=== PATIENT | female | born 2000 | race Caucasian/White ===

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

== ENCOUNTER 2021-09-23 16:07 | Observation (INO) ==
[2021-09-23] MEDS ORDERED: ONDANSETRON INJ 2 MG/ML 2 ML VIAL IV STA (16:25)
[2021-09-23] MEDS ORDERED: SODIUM CHLORIDE 0.9% 1000ML 1,000 ML IV STA (16:25)
--- NOTE | 2021-09-23 16:33 | Emergency Department Note ---
Impression & Plan Chronic female pelvic pain, Chronic abdominal pain ED Provider Note NAME: ELIF LEVY AGE: 21 SEX: F : 2000 ARRIVES VIA: Walk-In INFORMANT: Patient, ED PROVIDER(S): Tai Boyle DO CHIEF COMPLAINT: Abdominal pain HPI: The patient is a 21-year-old female who presented to the emergency department for an evaluation of pelvic pain. The patient states that she has had ongoing pelvic pain for the last 4 years. She has a history of endometriosis but she is not sure if this is the cause of her pain. She has not iced worsening pain especially over the last few months. 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 She also had a hysterectomy to treat suspected endometriosis. She has noticed ongoing pain nausea and weight loss. She denies having any rectal bleeding. She denies having any vaginal discharge. She denies having any chest pain or difficulty breathing. The patient states that she wanted to come to our hospital rather than go to her local hospital for a second opinion. The patient states she is on no antibiotics. She states that she has not been able to take her medication including her oxycodone because of not been able to eat and having nausea. ROS: See above HPI for pertinent positives & negatives. A total of 10 systems reviewed and were otherwise negative. PAST MEDICAL HISTORY: See Below PAST SURGICAL HISTORY: See Below FAMILY HISTORY: See Below SOCIAL HISTORY: See Below HOME MEDICATIONS: See Below ALLERGIES: See Below VITALS: See Below PHYSICAL EXAMINATION: GENERAL: Patient is awake alert in no acute distress patient is resting comfortably and showing no signs of anxiety EYES: The conjunctivae are clear. The pupils are round and reactive. EARS, NOSE, MOUTH AND THROAT: The nose is without any evidence of any deformity. Mucous membranes are moist. Tongue is midline. NECK: The neck is nontender and supple. RESPIRATORY: Normal respiratory effort is noted there is no evidence of wheezing rhonchi or rales CARDIOVASCULAR: Regular rate and rhythm noted there no murmurs rubs or gallops normal S1 normal S2. GASTROINTESTINAL: The abdomen is soft and nondistended. There is specific tenderness in the suprapubic region. There is no specific guarding. MUSCULOSKELETAL/EXTREMITIES: There is no evidence of gross deformity full range of motion is noted in the hips and shoulders. SKIN: There is no obvious evidence of any rash. There are no petechiae, pallor or cyanosis noted. NEUROLOGIC: Patient is awake alert and oriented x3 strength is symmetric pa tellar reflexes are 2+ bilaterally MEDICAL DECISION MAKING: The patient is a 21-year-old female who presented to emergency department for evaluation of pelvic pain. The patient states that she has a longstanding diagnosis of endometriosis. She presented to the emergency department for further evaluation. The patient was seen at [facility] within the last 24 hours. I did review her records from that visit and she had a CAT scan of the abdomen and pelvis. The patient was treated with IV fluids and IV pain medication. She was also reevaluated multiple times. I discussed the patient's laboratory and radiographic studies with her which did not reveal any acute abnormality. When the patient was reevaluated she did request to be evaluated by the hospitalist for possible inpatient management. I am unsure if the patient will be able to have any further diagnoses made at our facility. The patient reviewed with me the list of specialists as well as testing that she has had in the past. I am unsure if anything new will be found however at the patient's request I did [facility] have agreed to evaluate patient in the emergency department for further management and disposition. Triage Nursing notes reviewed. Prior medical records reviewed Vital Signs: reviewed and remarkable for no significant abnormalities Differential diagnosis: Etiologies such as appendicitis, diverticulitis, obstruction, inflammatory bowel disease, renal colic, PUD, biliary pathology, pancreatitis, mesenteric ischemia, aortic pathology, infections, genitourinary, UTI, perforated viscus, as well as others were entertained. ER treatment provided: See below Diagnostics interpreted by me: ECG: none Cardiac Monitoring: An order was placed for continuous cardiac monitoring. The monitor shows a rate of 97 bpm with sinus rhythm. Laboratory studies: As stated above and show below. Imaging studies: See below Consultation(s): I discussed this case with Dr. Dorado who [facility]. Past Med/Surg History Medical History Chest pain Endometriosis Internal hemorrhage Mood disorder Non-cardiac chest pain Surgical History H/O: hysterectomy Social History Smoking Status: Former smoker Tobacco Type: E-cigarettes / Vaping Hx Alcohol Use: No Hx Substance Use: Yes Last Used Substance Other:: last used "about a week ago" Substance Use Type Other:: vapes THC currently; no longer medical marijuana use Preferred Language: Croatian Communication Ability: Effective Funeral Planner Required: No Beliefs That Will Affect Care: None Current Living Situation: Alone Other Information That Helps Us Care for You: No Feels Safe at Home: Yes Safety Concerns: Feels Safe At This Time Assistive Devices: None Allergies Allergies Allergy/AdvReac Type Severity Reaction Status Date / Time prochlorperazine AdvReac Agitated Verified 09/23/21 20:35 [From Compazine] Home Meds Home Medications Medication Instructions Recorded Confirmed hydrocortisone 2.5 % topical cream 1 applic TOPICAL BID PRN 06/09/21 09/23/21 with perineal applicator docusate sodium 100 mg tablet 100 mg PO BID 09/23/21 09/23/21 naloxone 4 mg/actuation nasal 0 mg INTRANASAL DIRECTED PRN 09/23/21 09/23/21 spray (Narcan) oxycodone 10 mg tablet 10 mg PO Q12 PRN 09/23/21 09/23/21 promethazine 25 mg rectal 25 mg [place] DIRECTED PRN 09/23/21 09/23/21 suppository Results & Data (ED) Vital Signs Vital Signs - 24 hr 09/23/21 16:12 09/23/21 16:36 09/23/21 18:45 Temperature 37.2 C Temperature Source Oral Pulse Rate 113 H 110 H Pulse Rate [Right Finger] 110 H 98 H Pulse Rhythm Regular Pulse Rhythm [Right Finger] Regular Regular Pulse Strength [Right Finger] Normal Normal Respiratory Rate 16 18 17 Respiratory Effort / Characteristics Non-Labored Spontaneous Non-Labored Spontaneous Respiratory Depth Normal Normal Respiratory Pattern Regular Blood Pressure 137/89 Blood Pressure [Left Arm] 128/79 Blood Pressure Mean 105 Blood Pressure Mean [Left Arm] 95 Blood Pressure Position [Left Arm] Lying Pulse Oximetry 99 98 99 Oxygen Delivery Method Room Air Room Air Room Air Sepsis Recent Fever Within 48 Hours No Sepsis New/Unexplained Change in Mental Status No Sepsis Action Taken by Nursing No Action Required 09/23/21 20:00 Temperature Temperature Source Pulse Rate Pulse Rate [Right Finger] 97 H Pulse Rhythm Pulse Rhythm [Right Finger] Regular Pulse Strength [Right Finger] Normal Respiratory Rate 17 Respiratory Effort / Characteristics Non-Labored Spontaneous Respiratory Depth Normal Respiratory Pattern Blood Pressure Blood Pressure [Left Arm] Blood Pressure Mean Blood Pressure Mean [Left Arm] Blood Pressure Position [Left Arm] Pulse Oximetry 98 Oxygen Delivery Method Room Air Sepsis Recent Fever Within 48 Hours Sepsis New/Unexplained Change in Mental Status Sepsis Action Taken by Residential Medications Current Medication List: was personally reviewed by me Laboratory Data Attestation: I reviewed the patient's lab results. Result diagrams: 09/23/21 16:34 09/23/21 16:34 Lab Results 09/23/21 09/23/21 09/23/21 Range/Units 16:34 16:34 16:34 WBC 5.62 (4.8-10.8) K/uL RBC 4.44 (4.2-5.4) M/uL Hgb 14.6 (12.0-16.0) g/dL Hct 39.4 (37-47) % MCV 88.7 (80-100) fL MCH 32.9 (25-34) pg MCHC 37.1 H (32-36) g/dL RDW Std Deviation 39.5 (36.4-46.3) fL RDW Coeff of Angy 12.2 (11.5-14.5) % Plt Count 230 (130-400) K/uL MPV 10.2 (7.4-10.4) fL Immature Gran % (Auto) 0.2 % Neut % (Auto) 50.8 % Lymph % (Auto) 39.5 % Craven % (Auto) 8.9 % Eos % (Auto) 0.4 % Baso % (Auto) 0.2 % Neut # (Auto) 2.86 (1.4-6.5) K/uL Lymph # (Auto) 2.22 (1.2-3.4) K/uL Craven # (Auto) 0.50 (0.11-0.59) K/uL Eos # (Auto) 0.02 (0-0.5) K/uL Baso # (Auto) 0.01 (0-0.2) K/uL Immature Gran # (Auto) 0.01 (0.00-0.02) K/uL ESR 9 (0-20) mm/hr Sodium (136-145) mmol/L Potassium (3.5-5.1) mmol/L Chloride (98-107) mmol/L Carbon Dioxide (21-32) mmol/L Anion Gap (3-11) BUN (6-23) mg/dl Creatinine (0.6-1.2) mg/dl Est Cr Clr Drug Dosing ml/min Est GFR ( Amer) ml/min Est GFR (Non-Af Amer) ml/min BUN/Creatinine Ratio (10-20) Glucose (70-99(Fasting)) mg/dl Lactate 0.8 (0.4-2.0) mmol/L Calcium (8.5-10.1) mg/dl Total Bilirubin (0.2-1.0) mg/dl AST (13-39) U/L ALT (7-52) U/L Alkaline Phosphatase (34-104) U/L C-Reactive Protein (0-0.5) mg/dl Total Protein (6.0-8.3) gm/dl Albumin (3.4-5.0) gm/dl Globulin (2.5-4.0) gm/dl Albumin/Globulin Ratio (0.9-2) Lipase (11-82) U/L Urine Color Urine Appearance (Clear) Urine pH (4.5-7.5) Ur Specific [place] (1.000-1.030) Urine Protein (Negative) Urine Glucose (UA) (Negative) Urine Ketones (Negative) Urine Blood (Negative) Urine Nitrite (Negative) Urine Bilirubin (Negative) Urine Urobilinogen (Negative) Ur Leukocyte Esterase (Negative) SARS-CoV-2, RNA, NAAT (NEGATIVE) 09/23/21 09/23/21 09/23/21 Range/Units 16:34 18:45 19:50 WBC (4.8-10.8) K/uL RBC (4.2-5.4) M/uL Hgb (12.0-16.0) g/dL Hct (37-47) % MCV (80-100) fL MCH (25-34) pg MCHC (32-36) g/dL RDW Std Deviation (36.4-46.3) fL RDW Coeff of Angy (11.5-14.5) % Plt Count (130-400) K/uL MPV (7.4-10.4) fL Immature Gran % (Auto) % Neut % (Auto) % Lymph % (Auto) % Craven % (Auto) % Eos % (Auto) % Baso % (Auto) % Neut # (Auto) (1.4-6.5) K/uL Lymph # (Auto) (1.2-3.4) K/uL Craven # (Auto) (0.11-0.59) K/uL Eos # (Auto) (0-0.5) K/uL Baso # (Auto) (0-0.2) K/uL Immature Gran # (Auto) (0.00-0.02) K/uL ESR (0-20) mm/hr Sodium 140 (136-145) mmol/L Potassium 3.5 (3.5-5.1) mmol/L Chloride 111 H (98-107) mmol/L Carbon Dioxide 20 L (21-32) mmol/L Anion Gap 9 (3-11) BUN 9 (6-23) mg/dl Creatinine 0.68 (0.6-1.2) mg/dl Est Cr Clr Drug Dosing 99.6 ml/min Est GFR ( Amer) 145.9 ml/min Est GFR (Non-Af Amer) 125.9 ml/min BUN/Creatinine Ratio 13.2 (10-20) Glucose 83 (70-99(Fasting)) mg/dl Lactate (0.4-2.0) mmol/L Calcium 9.4 (8.5-10.1) mg/dl Total Bilirubin 0.8 (0.2-1.0) mg/dl AST 16 (13-39) U/L ALT 19 (7-52) U/L Alkaline Phosphatase 51 (34-104) U/L C-Reactive Protein < 0.50 (0-0.5) mg/dl Total Protein 7.3 (6.0-8.3) gm/dl Albumin 4.6 (3.4-5.0) gm/dl Globulin 2.7 (2.5-4.0) gm/dl Albumin/Globulin Ratio 1.7 (0.9-2) Lipase 18 (11-82) U/L Urine Color Yellow Urine Appearance Clear (Clear) Urine pH 6.5 (4.5-7.5) Ur Specific [place] 1.019 (1.000-1.030) Urine Protein Negative (Negative) Urine Glucose (UA) Negative (Negative) Urine Ketones 1+ H (Negative) Urine Blood Negative (Negative) Urine Nitrite Negative (Negative) Urine Bilirubin Negative (Negative) Urine Urobilinogen Negative (Negative) Ur Leukocyte Esterase Negative (Negative) SARS-CoV-2, RNA, NAAT NEGATIVE (NEGATIVE) Administered Medications Dextrose/Sodium Chloride (D5w And Nss) 1,000 mls @ 125 mls/hr IV .Q8H CARLOS Stop: 10/23/21 22:50 Last Admin: 09/23/21 23:22 Dose: 125 mls/hr Documented by: [id number] Pantoprazole Sodium 40 mg/ (Syringe) 10 mls @ 5 mls/min IV BID CARLOS Stop: 10/23/21 22:50 Last Admin: 09/24/21 00:04 Dose: 5 mls/min Documented by: [id number] Morphine Sulfate (Morphine Sulfate 4 Mg/Ml 1 Ml Carp\\Vial) 3 mg IV Q4H PRN PRN Reason: Pain Stop: 10/07/21 22:50 Last Admin: 09/23/21 23:22 Dose: 3 mg Documented by: [id number] Ondansetron HCl (Ondansetron Inj 2 Mg/Ml 2 Ml Vial) 4 mg IV Q6H PRN PRN Reason: Nausea Stop: 10/23/21 22:50 Last Admin: 09/23/21 23:21 Dose: 4 mg Documented by: [id number] Discontinued Medications Sodium Chloride (Nss 1000ml) 1,000 mls @ 999 mls/hr IV .Q1H1M STA Stop: 09/23/21 17:25 Last Infusion: 09/23/21 19:00 Dose: 0 mls/hr Documented by: [id number] Admin: 09/23/21 16:46 Dose: 999 mls/hr Documented by: [id number] Morphine Sulfate (Morphine Sulfate 4 Mg/Ml 1 Ml Carp\\Vial) 4 mg IV NOW STA Stop: 09/23/21 18:30 Last Admin: 09/23/21 18:40 Dose: 4 mg Documented by: [id number] Ondansetron HCl (Ondansetron Inj 2 Mg/Ml 2 Ml Vial) 4 mg IV NOW STA Stop: 09/23/21 16:26 Last Admin: 09/23/21 16:45 Dose: 4 mg Documented by: [id number] Imaging Data Radiologist's Impression: Chest X-Ray 09/23/21 16:25 XR chest 1V portable CLINICAL HISTORY: abd pain TECHNIQUE: Single frontal radiograph of the chest was obtained. Comparison: Comparison is made to chest one view 03/03/2015 FINDINGS: No lines and tubes are seen. The cardiomediastinal silhouette is normal. The lungs are clear. No evidence of pleural effusion or pneumothorax. IMPRESSION: No acute chest disease. No evidence of pneumoperitoneum. ACT 112: Negative or not required by law. Electronically signed by: Francisco J Mckinley M.D. 09/23/2021 5:06 PM KUB X-Ray 09/23/21 16:25 XR KUB/Abdomen 1 view CLINICAL HISTORY: lower pain TECHNIQUE: 1 view of the abdomen was obtained. Comparison: None available at the time of this dictation. FINDINGS: Lung bases are unremarkable. The osseous structures are grossly unremarkable. The bowel gas pattern is nonobstructive. A moderate amount of stool is noted within the large bowel. IMPRESSION: Nonobstructive bowel gas pattern. ACT 112: Negative or not required by law. Electronically signed by: Francisco J Mckinley M.D. 09/23/2021 5:06 PM Pelvis Ultrasound 09/23/21 16:52 US pelvic complete CLINICAL HISTORY: pain, hx of cyst TECHNIQUE: Real-time sonographic images of the pelvic contents were obtained with transabdominal and transvaginal technique. Comparison: None available at the time of this dictation. FINDINGS: Patient is status post hysterectomy. The right ovary measures 2.5 x 1.2 x 1.5 cm. The left ovary measures 2.0 x 2.3 x 1.9 cm. Normal appearance of the ovaries bilaterally. Doppler flow is seen bilaterally. There was small fluid in the cul-de-sac. IMPRESSION: Status post hysterectomy. No evidence of large ovarian cyst. Previously noted right 2.5 cm cystic lesion no longer seen on today's exam. ACT 112: Negative or not required by law. Electronically signed by: Francisco J Mckinley M.D. 09/23/2021 6:43 PM Discharge Plan Visit Data Chief Complaint: Abdominal Pain Stated Complaint: ABD PAIN, LOSS OF APPETITE, VOMITING, ED Provider: [place],Tai R Discharge Problem: Chronic female pelvic pain, Chronic abdominal pain Patient Disposition: Admitted As Inpatient Discharge Instructions Interventions: ED Discharge Assessment Last Done: 09/23/21 22:36
[2021-09-23 16:49] LABS: Basophils # (auto) 0.01 K/uL (0-0.2); Basophils % (auto) 0.2 %; Eosinophils # (auto) 0.02 K/uL (0-0.5); Eosinophils % (auto) 0.4 %; Hematocrit (blood only) 39.4 % (37-47); Hemoglobin 14.6 g/dL (12.0-16.0); Immature Granulocytes # (auto) 0.01 K/uL (0.00-0.02); Immature Granulocytes % (auto) 0.2 %; Lymphocytes # (auto) 2.22 K/uL (1.2-3.4); Lymphocytes % (auto) 39.5 %; Mean Corpuscular Hemoglobin 32.9 pg (25-34); Mean Corpuscular Hgb Conc 37.1 g/dL (32-36); Mean Corpuscular Volume 88.7 fL (80-100); Mean Platelet Volume 10.2 fL (7.4-10.4); Monocytes % (auto) 8.9 %; Neutrophils # (auto) 2.86 K/uL (1.4-6.5); Neutrophils % (auto) 50.8 %; Platelet Count 230 K/uL (130-400); RDW Coefficient of Variation 12.2 % (11.5-14.5); RDW Standard Deviation 39.5 fL (36.4-46.3); Red Blood Count 4.44 M/uL (4.2-5.4); White Blood Count 5.62 K/uL (4.8-10.8)
--- NOTE | 2021-09-23 17:09 | XRay Report ---
XR chest 1V portable CLINICAL HISTORY: abd pain TECHNIQUE: Single frontal radiograph of the chest was obtained. Comparison: Comparison is made to chest one view 03/03/2015 FINDINGS: No lines and tubes are seen. The cardiomediastinal silhouette is normal. The lungs are clear. No evid ence of pleural effusion or pneumothorax. IMPRESSION: No acute chest disease. No evidence of pneumoperitoneum. ACT 112: Negative or not required by law. Electronically signed by: Francisco J Mckinley M.D. 09/23/2021 5:06 PM
--- NOTE | 2021-09-23 17:09 | XRay Report ---
XR KUB/Abdomen 1 view CLINICAL HISTORY: lower pain TECHNIQUE: 1 view of the abdomen was obtained. Comparison: None available at the time of this dictation. FINDINGS: Lung bases are unremarkable. The osseous structures are grossly unremarkable. The bowel gas pattern i s nonobstructive. A moderate amount of stool is noted within the large bowel. IMPRESSION: Nonobstructive bowel gas pattern. ACT 112: Negative or not required by law. Electronically signed by: Francisco J Mckinley M.D. 09/23/2021 5:06 PM
[2021-09-23 17:15] LABS: Alanine Aminotransferase 19 U/L (7-52); Albumin Globulin Ratio 1.7 (0.9-2); Albumin Level 4.6 gm/dl (3.4-5.0); Alkaline Phosphatase 51 U/L (34-104); Anion Gap 9 (3-11); Aspartate Aminotransferase 16 U/L (13-39); BUN Creatinine Ratio 13.2 (10-20); Bilirubin,Total 0.8 mg/dl (0.2-1.0); Blood Urea Nitrogen 9 mg/dl (6-23); C Reactive Protein < 0.50 mg/dl (0-0.5); Calcium 9.4 mg/dl (8.5-10.1); Carbon Dioxide 20 mmol/L (21-32); Chloride 111 mmol/L (98-107); Creatinine Clr Calc Pharmacy 99.6 ml/min; Est GFR (African American) 145.9 ml/min; Est GFR (Non-African American) 125.9 ml/min; Globulin 2.7 gm/dl (2.5-4.0); Glucose 83 mg/dl (70-99(Fasting)); Lipase 18 U/L (11-82); Potassium 3.5 mmol/L (3.5-5.1); Sodium 140 mmol/L (136-145); Total Protein 7.3 gm/dl (6.0-8.3)
[2021-09-23] MEDS ORDERED: MoRPHine SULFATE 4 MG/ML 1 ML CARP\\VIAL IV STA (18:29)
--- NOTE | 2021-09-23 18:45 | Ultrasound Report ---
US pelvic complete CLINICAL HISTORY: pain, hx of cyst TECHNIQUE: Real-time sonographic images of the pelvic contents were obtained with transabdominal and transvaginal technique. Comparison: None available at the time of this dictation. FINDINGS: Patient is status post hysterectomy. The right ovary measures 2.5 x 1.2 x 1.5 cm. The left ovary alyse ures 2.0 x 2.3 x 1.9 cm. Normal appearance of the ovaries bilaterally. Doppler flow is seen bilateral ly. There was small fluid in the cul-de-sac. IMPRESSION: Status post hysterectomy. No evidence of large ovarian cyst. Previously noted right 2.5 cm cystic les ion no longer seen on today's exam. ACT 112: Negative or not required by law. Electronically signed by: Francisco J Mckinley M.D. 09/23/2021 6:43 PM
[2021-09-23 18:57] LABS: Appearance Urine Clear (Clear); Bilirubin Urine Negative (Negative); Blood Urine Negative (Negative); Color Urine Yellow; Glucose Urine UA Negative (Negative); Ketones Urine 1+ (Negative); Leukocyte Esterase Urine Negative (Negative); Nitrite Urine Negative (Negative); Protein Urine Negative (Negative); Specific Gravity Urine 1.019 (1.000-1.030); Urobilinogen Urine Negative (Negative); pH Urine 6.5 (4.5-7.5)
[2021-09-23] MEDS ORDERED: PROMETHAZINE HCL 25 MG SUPP PR PRN (22:51)
[2021-09-23] MEDS: ONDANSETRON INJ 2 MG/ML 2 ML VIAL IV PRN (23:21)
[2021-09-23] MEDS: D5W AND NSS 1,000 ML IV SCH (23:22)
[2021-09-23] MEDS: MoRPHine SULFATE 4 MG/ML 1 ML CARP\\VIAL IV PRN (23:22)
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
[2021-09-24] MEDS: PANTOprazole 40 MG in SYRINGE 0 ML IV SCH ×2 (00:04→08:51)
[2021-09-24] MEDS ORDERED: LORazepam 0.5 MG TAB PO STA (00:57)
[2021-09-24] MEDS: MoRPHine SULFATE 4 MG/ML 1 ML CARP\\VIAL IV PRN ×2 (05:40→09:56)
[2021-09-24] MEDS: ONDANSETRON INJ 2 MG/ML 2 ML VIAL IV PRN (05:40)
[2021-09-24] MEDS: D5W AND NSS 1,000 ML IV SCH ×3 (06:40→21:41)
[2021-09-24 06:43] LABS: Basophils # (auto) 0.01 K/uL (0-0.2); Basophils % (auto) 0.2 %; Eosinophils # (auto) 0.09 K/uL (0-0.5); Eosinophils % (auto) 1.5 %; Hematocrit (blood only) 35.7 % (37-47); Immature Granulocytes # (auto) 0.01 K/uL (0.00-0.02); Immature Granulocytes % (auto) 0.2 %; Lymphocytes # (auto) 2.87 K/uL (1.2-3.4); Lymphocytes % (auto) 49.4 %; Mean Corpuscular Hemoglobin 32.6 pg (25-34); Mean Corpuscular Hgb Conc 36.4 g/dL (32-36); Mean Corpuscular Volume 89.5 fL (80-100); Mean Platelet Volume 10.5 fL (7.4-10.4); Monocytes # (auto) 0.52 K/uL (0.11-0.59); Neutrophils # (auto) 2.31 K/uL (1.4-6.5); Neutrophils % (auto) 39.7 %; Platelet Count 210 K/uL (130-400); Red Blood Count 3.99 M/uL (4.2-5.4); White Blood Count 5.81 K/uL (4.8-10.8)
[2021-09-24 07:15] LABS: BUN Creatinine Ratio 9.2 (10-20); Calcium 8.2 mg/dl (8.5-10.1); Creatinine Clr Calc Pharmacy 89.1 ml/min; Est GFR (African American) 130.9 ml/min; Est GFR (Non-African American) 112.9 ml/min; Magnesium 1.9 mg/dl (1.7-2.4); Potassium 3.2 mmol/L (3.5-5.1)
[2021-09-24] MEDS: PROMETHAZINE HCL 6.25 MG in SODIUM CHLORIDE 0.9% 50 ML IV PRN ×3 (08:37→21:36)
[2021-09-24] MEDS: oxyCODONE HCL IR 5 MG TAB (IMMEDIATE RELEASE) PO PRN ×2 (08:51→21:02)
[2021-09-24] MEDS: ACETAMINOPHEN 325 MG TAB PO PRN ×3 (08:51→21:02)
[2021-09-24] MEDS: DOCUSATE SODIUM 100 MG CAP PO SCH ×2 (08:51→21:36)
[2021-09-24] MEDS ORDERED: POTASSIUM CHLORIDE CRTAB 20 MEQ TABCR PO ONE (09:36)
--- NOTE | 2021-09-24 11:02 | Gastrointestinal Consultation ---
Date of Consultation September 24, 2021 Assessment & Plan (1) Chronic abdominal pain: (2) Chronic female pelvic pain: (3) Nausea & vomiting: Patient is a 21 years old female seen for lower abdominal/pelvic pain and also nausea. She reports history of endometriosis status post lysis of adhesion s and hysterectomy. States that the surgeries did not really help with her symptoms. She has had quite an extensive GI work-up including EGD, colonoscopy, gastric emptying study, CT scan, ultrasound. Pertinent findings include gastric erosions when she was having nausea and vomiting, delayed gastric emptying and perhaps mild constipation. Suspect that her pain symptoms are mostly related to CARE PROGRAM DIRECTOR issues. - Consult CARE PROGRAM DIRECTOR - PPI PO daily - Zofran ODT 4mg q6hr prn n/v - Defer repeat endoscopies - Advance diet as tolerated - Consider Pain management consult (she reports currently established in pain management clinic at [place], would like to discuss management of her outpatient medications). - Consider psychiatric evaluation for behavioral health. She had missed outpatient appointments. - Marijuana cessation - GI to sign off; pls recall prn Supervising Physician Co-Signing Physician Notes I have personally seen and examined the patient with STEF Keita on 09/24/21. Her note reflects my exam and findings. I agree with her impression and plan. Recent GI w/u. Consider CARE PROGRAM DIRECTOR eval. Jerardo Erwin M.D. History of Present Illness Reason for Consultation: Abd pain, nausea Requesting Physician: Dr. Lazarus Alston Attending Physician: Dr. Jerardo Erwin History of Present Illness Patient is a 21 years old female seen today for complaints of lower abdominal pain and nausea symptoms. She was admitted at [facility] about 1-1/2 months ago with similar symptoms. She states that she has a history of endometriosis, status post lysis of implants and hysterectomy. Since her surgery she has been having continued symptoms similar to when she still have he r endometriosis including lower abdominal and pelvic cramping. Also complaining of nausea and vomiting. While at [facility] she was unable to tolerate p.o. intake and had to be on TPN for nutritional support. She has had a comprehensive GI work-up including EGD and colonoscopy within the last 1-1/2. EGD did show signs of erosions in the stomach consistent to when she had her nausea and vomiting. Colonoscopy was within normal limits. Gastric emptying study showed delayed emptying of her stomach. She was also back at [facility] emergency room yesterday. CT abdomen and pelvis without acute findings. Urine toxicology positive for cannabinoids and oxycodone. She is taking oxycodone for chronic pain, states that she used to smoke medical marijuana but has not used it for about 2 weeks now. She was given a trial of dicyclomine which she reports is not helpful. Evaluation upon admission included labs which showed no signs of leukocytosis, normal LFTs and lipase. KUB showed moderate stool in the bowels but no obstructive signs. He had a history of ovarian cysts, however repeat abdominal and transvaginal ultrasound showed that it has now resolved. Allergies Allergy/AdvReac Type Severity Reaction Status Date / Time prochlorperazine AdvReac Agitated Verified 09/23/21 20:35 [From Compazine] Home Medications Medication Instructions Recorded Confirmed Type hydrocortisone 2.5 % topical cream 1 applic TOPICAL BID PRN 06/09/21 09/23/21 History with perineal applicator docusate sodium 100 mg tablet 100 mg PO BID 09/23/21 09/23/21 History naloxone 4 mg/actuation nasal 0 mg INTRANASAL DIRECTED PRN 09/23/21 09/23/21 History spray (Narcan) oxycodone 10 mg tablet 10 mg PO Q12 PRN 09/23/21 09/23/21 History promethazine 25 mg rectal 25 mg RI DIRECTED PRN 09/23/21 09/23/21 History suppository Patient History Medical History Chest pain Endometriosis Internal hemorrhage Mood disorder Non-cardiac chest pain Surgical History H/O: hysterectomy Social History Smoking Status: Former smoker Tobacco Type: E-cigarettes / Vaping Hx Alcohol Use: No Hx Substance Use: Yes Last Used Substance Other:: last used "about a week ago" Substance Use Type Other:: vapes THC currently; no longer medical marijuana use Preferred Language: Serbian Communication Ability: Effective Extruder Required: No Beliefs That Will Affect Care: None Current Living Situation: Alone Other Information That Helps Us Care for You: No Feels Safe at Home: Yes Safety Concerns: Feels Safe At This Time Assistive Devices: None Review of Systems Review of Systems: All systems reviewed & are unremarkable except as noted in HPI & below Physical Exam Constitutional: WD/WN, vitals as above well groomed, cooperative and comfortable Eyes: PERRL, conjunctivae normal, anicteric sclerae ENMT: external ear and nose normal, oropharynx normal Respiratory: normal respiratory effort, lungs clear to auscultation Cardiovascular: RRR, no murmur, no edema Gastrointestinal (Abdomen): lower abd/pelvic TTP. soft, BS hypoactive. Skin: no rashes, warm and dry no jaundice Psychiatric: A+Ox3, euthymic affect Lymphatic: no lymphedema Results & Data ([facility]) Vital Signs (Past 12 Hours) Vital Signs Temp Pulse Resp BP Pulse Ox 09/24/21 07:35 36.8 C 90 16 110/70 99
[2021-09-24] MEDS: PANTOprazole 40 MG TAB PO SCH (11:16)
[2021-09-24] MEDS ORDERED: MoRPHine SULFATE 4 MG/ML 1 ML CARP\\VIAL IV PRN (12:25)
[2021-09-24] MEDS ORDERED: Nursing to Pharmacy Communication SCH (13:15)
[2021-09-24] MEDS: ONDANSETRON 4 MG OD TAB PO PRN (13:28)
[2021-09-24] MEDS: MoRPHine SULFATE 2 MG/ML CARP IV PRN ×3 (15:52→22:31)
--- NOTE | 2021-09-24 16:29 | Hospitalist Progress Note ---
Date of Service September 24, 2021 Assessment & Plan (1) Chronic female pelvic pain: Plan: Chronic abdominal pain Chronic pelvic pain Nausea and Vomiting H/O Recent Ovarian cyst rupture--Noted on CT at [facility] 2 days ago H/O endometriosis S/P Hysterectomy H/O THC use -Pelvic USD:Status post hysterectomy. No evidence of large ovarian cyst. Previously noted right 2.5 cm cystic lesion no longer seen on today's exam. -Transvaginal USD:Status post hysterectomy. No evidence of large ovarian cyst. Previously noted right 2.5 cm cystic lesion no longer seen on today's exam. Pain likely due to recent ovarian cyst rupture in setting of THC use Toxicology screen not obtained at the time of admission Encourage marijuana cessation Started on PPI Appreciate GI, AUTOMOTIVE PARTS COUNTER ASSOCIATE input Pain management consulted Follows with pain management as outpatient IV fluids Advance diet as tolerated Hypokalemia Replete as needed DVT Px: SCDs Encourage to ambulate Code Status Full Code Admission and Anticipated Discharge Date Admission Date: September 23, 2021 Subjective Patient is seen and examined at bedside States having nausea, abdominal/pelvic pain Denies any chest pain, shortness of breath, dizziness Discussed with AUTOMOTIVE PARTS COUNTER ASSOCIATE today Offers no other complaints Review of Systems Review of Systems: All systems reviewed & are unremarkable except as noted in Subjective Physical Exam Physical Exam: Physical Exam: Vitals signs as noted above General Appearance:Thin, frail, no apparent distress Head: normocephalic, Atraumatic Eyes: normal inspection, EOMI Neck: supple, Trachea midline Respiratory/Chest: Normal breath sounds, CTA, No accessory muscle use Cardiovascular: S1, S2, No murmur Abdomen/GI:Soft, lower abd tender, Bowel sounds present Extremities/Musculoskeletal:normal inspection, no edema Neurologic/Psych:AAOX3, grossly no focal neurological deficits Skin: normal color, warm Results & Data Results & Data ([facility]) Vital Signs (Past 12 Hours) Vital Signs Temp Pulse Resp BP BP Pulse Ox 09/24/21 14:32 37.5 C 88 16 124/83 99 09/24/21 07:35 36.8 C 90 16 110/70 99 Laboratory Results Short CBC 09/23/21 09/24/21 Range/Units 16:34 05:27 WBC 5.62 5.81 (4.8-10.8) K/uL Hgb 14.6 13.0 (12.0-16.0) g/dL Hct 39.4 35.7 L (37-47) % Plt Count 230 210 (130-400) K/uL BMP 09/23/21 09/24/21 16:34 05:27 Sodium 140 141 Potassium 3.5 3.2 L Chloride 111 H 112 H Carbon Dioxide 20 L 24 BUN 9 7 Creatinine 0.68 0.76 Glucose 83 93 Calcium 9.4 8.2 L Liver Function 09/23/21 Range/Units 16:34 Total Bilirubin 0.8 (0.2-1.0) mg/dl AST 16 (13-39) U/L ALT 19 (7-52) U/L Alkaline Phosphatase 51 (34-104) U/L Albumin 4.6 (3.4-5.0) gm/dl Urine 09/23/21 Range/Units 18:45 Urine Color Yellow Urine Appearance Clear (Clear) Urine pH 6.5 (4.5-7.5) Ur Specific [place] 1.019 (1.000-1.030) Urine Protein Negative (Negative) Urine Glucose (UA) Negative (Negative)
[2021-09-25] MEDS: MoRPHine SULFATE 2 MG/ML CARP IV PRN ×3 (02:37→10:36)
[2021-09-25] MEDS: D5W AND NSS 1,000 ML IV SCH ×3 (07:17→23:56)
[2021-09-25 07:35] LABS: Hematocrit (blood only) 32.2 % (37-47); Hemoglobin 11.8 g/dL (12.0-16.0); Mean Corpuscular Hemoglobin 32.5 pg (25-34); Mean Corpuscular Hgb Conc 36.6 g/dL (32-36); Mean Corpuscular Volume 88.7 fL (80-100); Mean Platelet Volume 10.1 fL (7.4-10.4); Platelet Count 178 K/uL (130-400); RDW Coefficient of Variation 12.1 % (11.5-14.5); RDW Standard Deviation 39.4 fL (36.4-46.3); Red Blood Count 3.63 M/uL (4.2-5.4); White Blood Count 3.37 K/uL (4.8-10.8)
[2021-09-25 07:57] LABS: BUN Creatinine Ratio 4.5 (10-20); Calcium 7.9 mg/dl (8.5-10.1); Creatinine Clr Calc Pharmacy 102.6 ml/min; Est GFR (African American) 147.4 ml/min; Est GFR (Non-African American) 127.2 ml/min; Potassium 3.4 mmol/L (3.5-5.1)
[2021-09-25] MEDS: PANTOprazole 40 MG TAB PO SCH (08:02)
[2021-09-25] MEDS: DOCUSATE SODIUM 100 MG CAP PO SCH ×2 (08:02→22:13)
--- NOTE | 2021-09-25 09:07 | Pain Management Consultation ---
Date of Consultation September 25, 2021 Assessment & Plan (1) Nausea & vomiting: (2) Chronic female pelvic pain: (3) Chronic abdominal pain: (4) Mood disorder: (5) Endometriosis: 1. No interventional procedures to offer the patient. 2. Continue Oxycodone 10mg twice daily. She could discuss further changes to her medications with the pain clinic she is established with on an outpatient sis. 3. We did discuss the initiation of a muscle relaxer such as Baclofen. She states that she has been on multiple muscle relaxers and does not like the way they make her feel and they have never been effective. 4. Could consider the initiation of Cymbalta to help with both depression and pain burden. Would defer to psych to see if this may be appropriate given the patient's diagnosis of mood disorder. 5. Patient states that she is not interested in the pain medication but wanting a diagnosis to her chronic lower abdominal pain. She has had an extensive GI and CHILDBIRTH AND INFANT CARE TEACHER workup. 6. IV Morphine is providing mild pain relief for a short period of time. She should limit use during hospital stay. Thank you for the consultation. History of Present Illness Reason for Consultation: Abdominal pain Attending Physician: Lazarus Alston MD History of Present Illness This is a 21 year old female that has been admitted for lower abdominal pain. Patient states that the pain has been ongoing for several years without any known cause. She describes a constant sharp pain in the suprapubic region. The pain radiates into the low back. When the pain is severe the pain may radiate down the legs to the knees. She does not describe a true radicular pain. There is also nausea and decreased appetite. She did require TPN in a previous admission. She has been previously diagnosed with endometriosis and had a full hysterectomy performed which was not effective towards diminishing her pain. She has not had a bowel movement in 5 days. Extensive GI and CHILDBIRTH AND INFANT CARE TEACHER workup has been negative. Only urinary sx she complains of is having a hard time starting a urinary stream sometimes. She has been sent to [place] pain clinic and placed on Oxycodone 10mg twice daily which she states is not adequately control ling her pain. She did try medical marijuana, last used 2 weeks ago. Has previously tried hydrocodone 7.5/325 mg and hydromorphone 2 mg. Case discussed with Dr. Toyin Gilbert Pain Assessment Full Body Front + Back: 1. 2. 3. 4. Allergies Allergy/AdvReac Type Severity Reaction Status Date / Time prochlorperazine AdvReac Agitated Verified 09/23/21 20:35 [From Compazine] Home Medications Medication Instructions Recorded Confirmed Type hydrocortisone 2.5 % topical cream 1 applic TOPICAL BID PRN 06/09/21 09/23/21 History with perineal applicator docusate sodium 100 mg tablet 100 mg PO BID 09/23/21 09/23/21 History naloxone 4 mg/actuation nasal 0 mg INTRANASAL DIRECTED PRN 09/23/21 09/23/21 History spray (Narcan) oxycodone 10 mg tablet 10 mg PO Q12 PRN 09/23/21 09/23/21 History promethazine 25 mg rectal 25 mg GA DIRECTED PRN 09/23/21 09/23/21 History suppository Patient History Medical History Chest pain Endometriosis Internal hemorrhage Mood disorder Non-cardiac chest pain Surgical History H/O: hysterectomy Social History Smoking Status: Former smoker Tobacco Type: E-cigarettes / Vaping Hx Alcohol Use: No Hx Substance Use: Yes Last Used Substance Other:: last used "about a week ago" Substance Use Type Other:: vapes THC currently; no longer medical marijuana use Preferred Language: Cymro Communication Ability: Effective Chair Upholsterer Required: No Beliefs That Will Affect Care: None Current Living Situation: Alone Other Information That Helps Us Care for You: No Feels Safe at Home: Yes Safety Concerns: Feels Safe At This Time Assistive Devices: None Physical Exam Physical Exam: GENERAL: This is a 21 year old female. Does not appear in any acute distress. Resting comfortably in the hospital bed. Making positional changes without difficulty. HEAD/FACE: Normocephalic and atraumatic. EYES: No drainage or conjunctival injection. ENT: Nose without bleeding or discharge. Oral mucosa moist. NECK: Full ROM without apparent pain. No swelling or masses noted. RESPIRATORY: Patient with unlabored breathing. No signs of respiratory distress. CHEST/AXILLA: Chest movement symmetrical. No deformities noted. CARDIOVASCULAR: Patients heart rate is regular, with pulse rate as documented. No edema noted. ABDOMEN/GI: No distension. There is tenderness in the suprapubic region. No t field cashier points noted. No upper abdominal tenderness. No CVA tenderness. BACK: Moves without difficulty. Tenderness at L4 and surrounding. No myofascial spasm noted. SKIN: [place], warm and dry. No rash noted. MS/EXTREMITY: No swelling, no deformities. Moving extremities appropriately. NEURO: Alert and appears oriented. Speech is fluent. Cranial Nerves are grossly intact. PSYCH: Alert, pleasant, affect is calm
[2021-09-25] MEDS ORDERED: POTASSIUM CHLORIDE CRTAB 20 MEQ TABCR PO ONE (09:55)
[2021-09-25] MEDS: oxyCODONE HCL IR 5 MG TAB (IMMEDIATE RELEASE) PO PRN ×2 (11:48→19:45)
[2021-09-25] MEDS ORDERED: MoRPHine SULFATE 2 MG/ML CARP IV PRN (12:49)
--- NOTE | 2021-09-25 13:25 | XRay Report ---
KUB CLINICAL HISTORY: Nausea, Vomiting. COMPARISON STUDY: KUB September 22, 2021. CT of the abdomen and pelvis June 09, 2021. FINDINGS: Right pelvic surgical clip is noted. Bowel gas pattern is normal. There is no evidence for a bowel obstruction. Pelvic calcifications reflect phleboliths. IMPRESSION: Unremarkable KUB. ACT 112: Negative or not required by law. Electronically signed by: Yaniv England M.D. 09/25/2021 1:23 PM
--- NOTE | 2021-09-25 13:32 | CT Scan Report ---
CT OF THE LUMBAR SPINE CLINICAL HISTORY: Back pain. COMPARISON STUDY: CT of the abdomen and pelvis June 09, 2021. TECHNIQUE: Helical axial images of the lumbar spine were obtained. Sagittal and coronal reconstruct ions were viewed. Automated exposure control was utilized for the study. A dose lowering technique was utilized adhering to the principles of ALARA. FINDINGS: Alignment of the lumbar spine is anatomic. Vertebral body heights are maintained. A Schmorl 's node along the inferior endplate of L2 is unchanged. There is no acute fracture. There is no osseo us lesion. Facet joints are intact. Disc spaces are preserved. Central canal and neural foramen are s uboptimally assessed by CT but appear grossly patent. IMPRESSION: No acute lumbar spine fracture or subluxation. Unremarkable CT of the lumbar spine. ACT 112: Negative or not required by law. Electronically signed by: Yaniv England M.D. 09/25/2021 1:31 PM
[2021-09-25] MEDS: ACETAMINOPHEN 325 MG TAB PO PRN ×3 (13:49→22:19)
[2021-09-25] MEDS: ONDANSETRON 4 MG OD TAB PO PRN ×2 (14:17→19:45)
[2021-09-25] MEDS ORDERED: MoRPHine SULFATE 2 MG/ML CARP IV ONE (14:23)
--- NOTE | 2021-09-25 15:02 | Hospitalist Progress Note ---
Date of Service September 25, 2021 Assessment & Plan (1) Chronic female pelvic pain: Plan: Chronic abdominal pain Chronic pelvic pain Nausea and Vomiting H/O Recent Ovarian cyst rupture--Noted on CT at [facility] 2 days ago H/O endometriosis S/P Hysterectomy H/O THC use CT ABD/Pelvis at [facility] on 09/23/21:Recently ruptured right ovarian cyst with small right periovarian free fluid. -Pelvic USD:Status post hysterectomy. No evidence of large ovarian cyst. Previously noted right 2.5 cm cystic lesion no longer seen on today's exam. -Transvaginal USD:Status post hysterectomy. No evidence of large ovarian cyst. Previously noted right 2.5 cm cystic lesion no longer seen on today's exam. Pain likely due to recent ovarian cyst rupture in setting of THC use Toxicology screen not obtained at the time of admission Encourage marijuana cessation Continue PPI Appreciate GI, PIG LEAD MELTER HELPER input Pain management consulted Follows with pain management as outpatient on IV fluids Advance diet as tolerated Pain management on board Patient requests transfer to [place]. Will plan to transfer if accepted. Hypokalemia Replete as needed DVT Px: SCDs Encourage to ambulate Code Status Full Code Admission and Anticipated Discharge Date Admission Date: September 23, 2021 Subjective Patient is seen and examined at bedside Reports persistent nausea, abdominal/pelvic pain Also reports nausea, vomiting Denies any chest pain, shortness of breath, dizziness Tried to reach family over the phone--No answer Review of Systems Review of Systems: All systems reviewed & are unremarkable except as noted in Subjective Physical Exam Physical Exam: Physical Exam: Vitals signs as noted above General Appearance:Thin, frail, no apparent distress Head: normocephalic, Atraumatic Eyes: normal inspection, EOMI Neck: supple, Trachea midline Respiratory/Chest: Normal breath sounds, CTA, No accessory muscle use Cardiovascular: S1, S2, No murmur Abdomen/GI:Soft, lower abd tender, Bowel sounds present Extremities/Musculoskeletal:normal inspection, no edema Neurologic/Psych:AAOX3, grossly no focal neurological deficits Skin: normal color, warm Results & Data Results & Data ([facility]) Vital Signs (Past 12 Hours) Vital Signs Temp Pulse Resp BP Pulse Ox 09/25/21 07:59 37.1 C 80 18 112/69 99 Laboratory Results Short CBC 09/25/21 Range/Units 07:15 WBC 3.37 L (4.8-10.8) K/uL Hgb 11.8 L (12.0-16.0) g/dL Hct 32.2 L (37-47) % Plt Count 178 (130-400) K/uL BMP 09/25/21 07:15 Sodium 140 Potassium 3.4 L Chloride 115 H Carbon Dioxide 20 L BUN 3 L Creatinine 0.66 Glucose 94 Calcium 7.9 L
[2021-09-25] MEDS ORDERED: KETOROLAC TROMETHAMINE 15 MG/ML VIAL IV PRN (15:39)
--- NOTE | 2021-09-25 15:54 | Communication Note ---
Date of Service: September 25, [address] Nia Jorgensen (Urogynecology) at [facility] who recommended starting antiinflammatories and Provera and states that patient can follow up with them as outpatient. Patient states that she was on Hormonal therapy and Toradol previously which did not help and prefers not to be started on Provera. Will obtain CT ABD/Pelvis to rule out other etiologies. Patient agrees to be evaluated by Psych.
[2021-09-25] MEDS: PROMETHAZINE HCL 6.25 MG in SODIUM CHLORIDE 0.9% 50 ML IV PRN (16:35)
[2021-09-25] MEDS ORDERED: OPTIRAY 320 100ml IV ONE (18:39)
--- NOTE | 2021-09-25 19:00 | CT Scan Report ---
ABDOMEN AND PELVIS CT WITH IV AND ORAL CONTRAST CT DOSE: 260.83 mGy.cm HISTORY: Generalized abdominal pain. Pelvic pain. TECHNIQUE: Multiaxial CT images of the abdomen and pelvis were performed following the use of intrave nous and oral contrast. A dose lowering technique was utilized adhering to the principles of ALARA. COMPARISON STUDY: Lumbar spine CT 09/25/2021. Abdomen and pelvis CT 06/09/2021. FINDINGS: The lung bases are clear. No pneumoperitoneum. No pneumatosis. No fractures within the visu alized osseous structures. The liver, gallbladder, pancreas, spleen, adrenal glands, and kidneys are unremarkable. No hydronephrosis. The main portal vein is patent. No retroperitoneal lymphadenopathy. Normal caliber abdominal aorta. Trace pericholecystic fluid is likely due to overhydration. The bladd er is unremarkable. The uterus is surgically absent. Trace pelvic free fluid. This is likely physiolo gic. No bowel wall thickening or obstruction. Prior appendectomy. IMPRESSION: 1. No bowel wall thickening or obstruction. 2. No hydronephrosis. 3. Prior hysterectomy and appendectomy. 3. Trace pelvic free fluid. This may be physiologic. ACT 112: Negative or not required by law. Electronically signed by: Elkin Rai M.D. 09/25/2021 6:59 PM
[2021-09-25] MEDS ORDERED: KETOROLAC TROMETHAMINE 15 MG/ML VIAL IV ONE (23:19)
[2021-09-25] MEDS: hydrOXYzine HCl 10 MG TAB PO PRN (23:53)
[2021-09-26] MEDS: D5W AND NSS 1,000 ML IV SCH (06:19)
[2021-09-26] MEDS: DOCUSATE SODIUM 100 MG CAP PO SCH (08:02)
[2021-09-26] MEDS: PANTOprazole 40 MG TAB PO SCH (08:02)
[2021-09-26] MEDS: oxyCODONE HCL IR 5 MG TAB (IMMEDIATE RELEASE) PO PRN (08:07)
[2021-09-26] MEDS: ONDANSETRON 4 MG OD TAB PO PRN (08:07)
[2021-09-26 08:47] LABS: Calcium 8.2 mg/dl (8.5-10.1); Creatinine Clr Calc Pharmacy 101.1 ml/min; Est GFR (African American) 146.7 ml/min; Est GFR (Non-African American) 126.5 ml/min; Potassium 3.5 mmol/L (3.5-5.1)
[2021-09-26] MEDS: ACETAMINOPHEN 325 MG TAB PO PRN (10:28)
[2021-09-26] MEDS: hydrOXYzine HCl 10 MG TAB PO PRN (10:30)
--- NOTE | 2021-09-26 10:44 | Hospitalist Progress Note ---
Date of Service September 26, 2021 Assessment & Plan (1) Chronic female pelvic pain: Plan: Chronic abdominal pain Chronic pelvic pain Nausea and Vomiting H/O Recent Ovarian cyst rupture--Noted on CT at [facility] 2 days ago H/O endometriosis S/P Hysterectomy H/O THC use CT ABD/Pelvis at [facility] on 09/23/21:Recently ruptured right ovarian cyst with small right periovarian free fluid. -Pelvic USD:Status post hysterectomy. No evidence of large ovarian cyst. Previously noted right 2.5 cm cystic lesion no longer seen on today's exam. -Transvaginal USD:Status post hysterectomy. No evidence of large ovarian cyst. Previously noted right 2.5 cm cystic lesion no longer seen on today's exam. -CT ABD: No bowel wall thickening or obstruction. No hydronephrosis. Prior hysterectomy and appendectomy. Trace pelvic free fluid. This may be physiologic. --Patient also had significant GI work up in the past as per records -Pain likely due to recent ovarian cyst rupture in setting of THC use ? Substance abuse Toxicology screen not obtained at the time of admission Encourage marijuana cessation Continue PPI Appreciate GI, RETANNER input Pain management consulted Follows with pain management as outpatient Received IV fluids 09/25/21: Discussed with Dr. Nia Jorgensen (Urogynecology) at [facility] who recommended starting antiinflammatories and Provera and states that patient can follow up with them as outpatient. Patient reports that she was on Hormonal therapy and Toradol previously which did not help and prefers not to be started on Provera. Advised to follow up with PCP/OBGYN upon discharge Hypokalemia Replete as needed DVT Px: SCDs Encourage to ambulate Code Status Full Code Admission and Anticipated Discharge Date Admission Date: September 23, 2021 Subjective Patient is seen and examined at bedside Continues to complain of abdominal/pelvic pain No distress on exam Denies any chest pain, shortness of breath, dizziness Prefers to be discharged home Review of Systems Review of Systems: All systems reviewed & are unremarkable except as noted in Subjective Physical Exam Physical Exam: Physical Exam: Vitals signs as noted above General Appearance:Thin, frail, no apparent distress Head: normocephalic, Atraumatic Eyes: normal inspection, EOMI Neck: supple, Trachea midline Respiratory/Chest: Normal breath sounds, CTA, No accessory muscle use Cardiovascular: S1, S2, No murmur Abdomen/GI:Soft, lower abd tender, no guarding or rigidity, Bowel sounds present Extremities/Musculoskeletal:normal inspection, no edema Neurologic/Psych:AAOX3, grossly no focal neurological deficits Skin: normal color, warm Results & Data Results & Data ([facility]) Vital Signs (Past 12 Hours) Vital Signs Temp Pulse Resp BP Pulse Ox 09/26/21 08:00 36.4 C L 73 16 109/72 99 Laboratory Results [facility] 09/26/21 07:52 Sodium 139 Potassium 3.5 Chloride 113 H Carbon Dioxide 23 BUN 6 Creatinine 0.67 Glucose 94 Calcium 8.2 L
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
--- NOTE | 2021-09-28 04:57 | Consultation Report ---
Consult is placed by ____. HISTORY OF PRESENT ILLNESS: This is a 21-year-old presented to the Emergency Room on 09/23/2021 with severe esophagitis and chronic pelvic pain. The patient is status post hysterectomy in 2021 for sev ere endometriosis. The patient reports this was done at [facility], her chronic pelvic pain has not imp roved since hysterectomy and the patient is on chronic narcotics as well as medical marijuana. She p resented to the Emergency Room because the pain continues to get worse. She was seen at [facility] jacquelinetal was not happy with the care she received; therefore, decided to sign out and come to [facility] where she has been admitted. She was seen by medicine and other several studies including CT scan and ultrasound. Pelvic exam is unremarkable. There is no ovarian cyst or ovarian pathology at present. NUTRITION SERVICES ASSOCIATE, otherwise, was called to consult on the patient because of history of end ometriosis. On arrival to the bedside, the patient is curled up in bed, complaining of pain that is not relieved with any medication. PAST MEDICAL HISTORY: As mentioned above. PAST SURGICAL HISTORY: Appendectomy, colonoscopy, laparoscopic hysterectomy. MEDICATIONS: The patient is on several narcotics including Narcan, oxycodone, and medical marijuana. FAMILY HISTORY: Noncontributory. SOCIAL HISTORY: The patient is a smoker, is on medical marijuana and narcotics. PHYSICAL EXAMINATION: GENERAL: Well-developed, well-nourished black female lying in bed in position, complains of pa in, ____ 10. HEART: S1 and S2, regular rhythm and rate. LUNGS: Clear to auscultation bilaterally. ABDOMEN: She had general abdominal discomfort. No rebound, no guarding. ASSESSMENT AND PLAN: Status post history of endometriosis. The patient has had a hysterectomy at a relatively young age and chronic pain has not improved. She has been followed by pain management in [place]. The patient reports the pain is worse because in the last few days, she has not been ab le to take her pain medicines because of nausea and vomiting. I have discussed this patient with ____. There was no NUTRITION SERVICES ASSOCIATE pathology to be addressed at this moment, I think the patient needs to be st abilized and pain managed so she can continue to be cared for as an outpatient since this is chronic pelvic pain issue then we will require pain management and continue or end up care. Job ID: [id number]
== END 2021-09-26 12:01 | disposition home or self-care (01) ==
LOC: 3N 16:07 → ED 16:07 → 3N 22:36

== ENCOUNTER 2023-08-07 19:17 | Observation (INO) ==
--- OUTSIDE RECORDS SUMMARY | 2023-08-07 19:24 | External Medical Summary ---
Author Name Unknown Address Unknown Organization K1F:LABORATORY [facility] - [address] [place] [address] Laboratory Report Ordering Provider Test Date Status NICOLLE CANADA 08/07/2023 12:50:23 Final Observation Date Value Abnormality Reference (Units ) Status WBC, Total 08/07/2023 12:50:23 5.77 4.00-10.80 (K/uL) Final RBC 08/07/2023 12:50:23 4.36 3.85-5.15 (M/uL) Final Hemoglobin 08/07/2023 12:50:23 13.0 12.0-15.3 (g/dL) Final HCT 08/07/2023 12:50:23 37.7 36.0-45.2 (%) Final MCV 08/07/2023 12:50:23 86.5 81.5-97.5 (fL) Final MCH 08/07/2023 12:50:23 29.8 27.0-34.0 (pg) Final MCHC 08/07/2023 12:50:23 34.5 32.0-36.0 (g/dL) Final RDW 08/07/2023 12:50:23 12.9 11.5-15.5 (%) Final Platelets 08/07/2023 12:50:23 252 140-400 (K/uL) Final MPV 08/07/2023 12:50:23 10.4 6.6-11.1 (fL) Final Nucleated erythrocytes/100 leukocytes [Ratio] in Blood by Automated count 08/07/2023 12:50:23 0 <=0 (/100 WBCs) Final Performing Location LABORATORY [facility] - [address] [place] [address]
--- OUTSIDE RECORDS SUMMARY | 2023-08-07 19:24 | External Medical Summary ---
Author Name Unknown Address Unknown Organization K1F:LABORATORY [facility] - [address] [facility] [place] [address] Laboratory Report Ordering Provider Test Date Status NICOLLE [place]NA[place] 08/07/2023 12:50:23 Final Observation Date Value Abnormality Reference (Units ) Status BUN 08/07/2023 12:50:23 6 6-20 (mg/dL) Final Creatinine 08/07/2023 12:50:23 0.6 0.5-1.0 (mg/dL) Final Glomerular filtration rate/1.73 sq M.predicted [Volume Rate/Area] in Serum, Plasma or Blood by Creatinine-based formula (CKD-EPI) 08/07/2023 12:50:23 >90 >=60 (mL/min) Final eGFR is calculated based on the CKD-EPI 2020 equation SODIUM 08/07/2023 12:50:23 142 135-146 (m mol/L) Final Potassium 08/07/2023 12:50:23 3.6 3.5-5.1 (m mol/L) Final Cl 08/07/2023 12:50:23 107 98-107 (mm ol/L) Final CO2 08/07/2023 12:50:23 24 22-32 (mmo l/L) Final Anion gap 08/07/2023 12:50:23 11 7-15 (mmol /L) Final Glucose 08/07/2023 12:50:23 88 70-120 (mg /dL) Final Albumin 08/07/2023 12:50:23 4.2 3.8-5.0 (g /dL) Final AST (Aspartate aminotransferase) 08/07/2023 12:50:23 13 10-35 (U/L) Final Alk Phos 08/07/2023 12:50:23 85 35-130 (U/ L) Final Bilirubin, Total 08/07/2023 12:50:23 0.3 <=1 .2 (mg/dL) Final Calcium 08/07/2023 12:50:23 9.2 8.4-10.2 ( mg/dL) Final Protein 08/07/2023 12:50:23 7.0 6.0-8.3 (g /dL) Final ALT (Alanine aminotransferase) 08/07/2023 12:50:23 11 10-35 (U/L) Final Performing Location LABORATORY [facility] - [facility] [address] [place] [address]
--- OUTSIDE RECORDS SUMMARY | 2023-08-07 19:24 | External Medical Summary | Summary of Care ---
Author Name Unknown Organization [facility] Address [address] [place] [address] Phone [phone] Care Team Providers Care Impact Hammer Operator Name Role Phone Kinjal Reynoso PA-C Primary Care Provider [phone] Reason for Visit * Reason Onset Date Comments Advice 05/04/202305/04 Encounter Details Date Type Department Care Team (Late st Contact Info) Description 05/04/2023 Telephone [facility] [place] [address] Kinjal Reynoso PA-C [address] [facility] [place] [address] Advice (05/04) Allergies Active Allergy Reactions Criticality Noted Date Comments Prochlorperazine Psych complications 09/26/2021 Gets very agitated Droperidol Other (Please comment) 07/19/2022 Feeling like ants are all over me Haloperidol Other (Please comment) 07/19/2022 Restless, "feels like ants are all over me" Hydroxyzine Other (Please comment) 06/27/2023 "restless legs" Metoclopramide Psych complications 10/02/2021 Gets very agitated Trimethobenzamide 02/02/2023 Bad reaction , patient doesn't remember the reaction documented as of this encounter (statuses as of 08/03/2023) Medications Medication Sig Dispensed Refills Start Date End Date Status Naloxone HCl 4 MG/0.1ML Nasal Liquid (Narcan Nasal)Indications:Ch ronic pelvic pain in female,MEDICATION USE AGREEMENT,Chronic abdominal pain ADMINISTER 1 SPRAY INTO 1 NOSTRIL FOR SUSPECTED OPIOID OVERDOSE - SEEK IMMEDIATE MEDICAL ATTENTION. [email or web address] 2 Each 3 03/31/2023 Active Peptamen 1.5 Oral Liquid Administer 1000 mL daily, as directed through J Tube via feeding pump 24864 mL 11 04/12/2023 Active documented as of this encounter (statuses as of 08/03/2023) Active Problems Problem Noted Date Diagnosed Date Malfunction of jejunostomy tube 07/07/2023 Gastroparesis 02/02/2023 Post concussive syndrome 10/23/2022 Adjustment disorder with mixed anxiety and depre ssed mood 10/23/2022 Chronic abdominal pain 10/23/2022 Chronic female pelvic pain 09/24/2022 Illness anxiety disorder 08/12/2022 Chronic, continuous use of opioids 07/19/2022 Acute abdominal pain 07/19/2022 Ovarian cystic mass 05/28/2022 Retention of urine 03/17/2022 Adjustment disorder with depressed mood 01/17/20 PTSD (post-traumatic stress disorder) 01/16/2022 Gastroesophageal reflux dise ase with esophagitis without hemorrhage 07/23/2021 Chronic pelvic pain in female 07/23/2021 Status post hysterectomy 05/01/2021 Dysmenorrhea 11/03/2020 Endometriosis 10/30/2020 Medical marijuana use 03/29/2020 Endometriosis 06/06/2019 documented as of this encounter (statuses as of 08/03/2023) Resolved Problems Problem Noted Date Diagnosed Date Resolved Date Abdominal pain 02/02/2023 02/03/2023 Intractable vomiting 02/02/2023 023 Duodenitis 02/02/2023 02/03/2023 Ileus 02/02/2023 02/03/2023 Nausea and vomiting 10/23/2022 02/04/20 23 Intractable nausea and vomiting 07/19/2022 08/12/2022 History of ventricular tachycardia 09/29/2021 10/02/2021 Overview: nonsustained 07/26/2021 Illness anxiety disorder 07/30/2021 Severe protein-energy malnutrition 07/25/2021 07/21/2022 Loss of weight 07/23/2021 10/02/2021 Mood disorder 06/06/2019 03/29/2020 Chest pain 08/01/2015 06/06/2019 Acute pharyngitis 04/16/2015 06/06/2019 Asthma, mild persistent 02/14/201405/21 documented as of this encounter (statuses as of 08/03/2023) Immunizations Name Administration Dates Next Due DTaP Dipth/Tet/Acell Pertussis (Infanrix), Peds 01/18/2007,07/03/2002,04/18/2002,11/07 HIB PRP-OMP, 3 dose (Pedvax) 07/03/2002,04/18/20 02,2001 Hep A - Hepatitis A (ped/ado le, 1-18 Yrs) 02/28/2016,09/29/2006 Hepatitis B, 0-19 yrs 01/18/2007,07/03/2002,0506/2001 IPV - Polio Virus Vaccine (Inact) 01/18/2007,,2001 MMR - Measles/Mumps/Rubella Vaccine 11/27/2002 Measles Vaccine 01/18/2007 Meningococcal B, OMV AJD, 2- Dose Series (BEXSERO) 01/03/2022 Meningococcal Conjugate Vacc ine (Menactra/Menveo) 02/28/2016 Meningococcal MCV4O Conjugat e Vaccine (Menveo) 02/22/2019 Mumps Vaccine 01/18/2003 Pneumococcal Conjugate Vacc, 13 Valent (Prevnar) 11/27/2002,07/03/2002,04/18/2002,11/07 Rubella Vaccine 11/27/2002 TDAP (age 10 and older)(Boostrix) 01/03/2021,02/2016 Varicella Vaccine (Chicken Pox) 01/18/2007,11/27 documented as of this encounter Social History Tobacco Use Types Packs/Day Years Used Date Smoking Tobacco: Never Passive Smoke Exposure: Never Smokeless Tobacco: Never Alcohol Use Standard Drinks/Week Comments Not Currently 0 (1 standard drink = 0.6 oz pur e alcohol) occasional PHQ-2 Answer Date Recorded PHQ Adult Total Score 0 07/23/2023 Hunger Vital Sign Answer Date Recorded Within the past 12 months, y ou worried that your food would run out before you got the money to buy more. Never true 07/23/19 Within the past 12 months, t he food you bought just didn't last and you didn't have money to get more. Never true 07/23/2023 Sex and Gender Information Value Date Recorded Sex Assigned at Female 08/14/2022 8:52 AM EST Gender Identity Female 08/14/2022 8:52 AM EST Sexual Orientation Lesbian 08/14/2022 8: 52 AM EST Job Start Date Occupation Industry Not on file Not on file Not on file documented as of this encounter Functional Status Functional Status Response Date of Assess ment Are you deaf or do you have serious difficulty h earing? No 02/02/2023 Are you blind or do you have serious difficulty seeing, even when wearing glasses? No 02/02/2023 Do you have serious difficul ty walking or climbing stairs? (5 years old or older) No 02/02/2023 Do you have difficulty dress ing or bathing? (5 years old or older) No 02/02/2023 Because of a physical, menta l, or emotional condition, do you have difficulty doing errands alone such as visiting a doctor s office or shopping? (15 years old or older) No 02/03/20 Cognitive Status Response Date of Assessm ent Because of a physical, menta l, or emotional condition, do you have serious difficulty concentrating, remembering, or making decisions? (5 years old or older) No 02/02/2023 documented as of this encounter Miscellaneous Notes * Telephone Encounter - Avril Lee OSA - 05/04/2023 2:01 PM EST Reason for patient's call: Appoint was made for ER Follow up tomorrow morning , was told by aide she can make it in, wanting to check if there was anything else needed Caller was transferred to [facility] at the nurse line. * Telephone Encounter - Tanja Rollins LPN - 05/04/2023 12:09 PM EST Please advise. * Telephone Encounter - Tania Aparicio OSA - 05/04/2023 12:01 PM EST Marii ( [facility] ) called in asking to speak to nurse . She is with pt and she was in the Ed 2 days ago for abdominal pain. She has feeding tube and was told that her intestines were twisted . She was ok but now has not been able to tolerate the feedings as is causing more abdominal pains . She can eat by mouth but that has been hurting also . Please call HH to advise . documented in this encounter Plan of Treatment Upcoming Encounters Date Type Department Care Team (Late st Contact Info) Description 08/20/2023 1:50 PM EST Telemedicine Nutrition & Weight Management, [facility] [address] [place] [address] Kaity Yap RDN [address] [place] [address] 09/20/2023 12:40 PM EDT Office Visit Nutrition & Weight Management, [facility] [address] [place] [address] Cee Santizo PA-C [address] [address] 12/08/2023 5:20 PM EDT Office Visit [facility] [address] [phone] Kinjal Reynoso PA-C [address] [address] Health Maintenance Due Date Last Done Comments COVID-19 Vaccine (#1) 03/09/2002 GARDASIL-HPV IMMUNIZATION SE KIM (1 - 2-dose series) 2012 Yearly Wellness Visit 01/03/2023 01/03/2022 , 03/29/2020, 02/22/2019, Additional history exists Influenza Vaccine (FLU shot) (#1) 2023 Gonorrhea / Chlamydia Screen 05/02/202405/2023, 12/09/2022, 05/31/2022, Additional history exists Depression Screening 07/23/2024 07/23/2023 DTaP,Tdap,and Td Vaccines (7 - Td or Tdap) 01/03/2031 01/03/2021, 02/28/2016, 01/18/2007, Additional history exists Pneumococcal Vaccine: Pediat rics (0 to 5 Years) and At-Risk Patients (6 to 64 Years) Completed 11/27/2002, 07/03/2002, 04/18/2002, Additional history exists Hepatitis B Completed 01/18/2007, 06/21, 2001 MENINGOCOCCAL (MENACTRA/MENVEO) Completed 02/22/2019, 02/28/2016, 02/28/2016 documented as of this encounter Medical Devices Implanted Type Area Hair Dryer Device Identifier Shelf Expiration Date Model / Serial / Lot Port Implant W/8f Poly Cath - [id number] Implanted:Qty : 1 on 05/18/2023 by Juan Jose Connell DO at OR [facility] Right: Chest CR BARD : PERIPHERAL VASCULAR [id number] 11/18/2024 [id number] / / [id number] documented as of this encounter Additional Health Concerns Infection Onset Date Last Indicated Resolved Time Respiratory Rule-Out 06/14/2023 06/14/2023 023 12:43 PM EST COVID-19 Rule-Out 06/14/2023 06/14/2023 06/14/2023 12:43 PM EST documented as of this encounter Advance Directives Latest Code Status on File Code Status Date Activated Date Inactivated Comments Full Code 07/07/2023 3:02 AM 07/08/2023 9:20 PM This order reflects the patients wishes and were consensually agreed upon. Question Answer Comments Discussion of Advance Directives occurred with: Patient Code Status History Code Status Date Activated Date Inactivated Comments Full Code 02/02/2023 10:02 AM 02/03/2023 3:24 PM This order reflects the patients wishes and were consensually agreed upon. Question Answer Comments Discussion of Advance Directives occurred with: Patient Full Code 07/19/2022 9:49 AM 08/12/2022 10:43 PM This order reflects the patients wishes and were consensually agreed upon. Question Answer Comments Discussion of Advance Directives occurred with: Patient Full Code 01/14/2022 3:36 PM 01/16/2022 4:00 PM This order reflects the patients wishes and were consensually agreed upon. Question Answer Comments Discussion of Advance Directives occurred with: Patient Does the patient have a Living Will? No Does the patient have Health Care Power of Hide Inspector? No Full Code 07/18/2021 7:04 AM 08/03/2021 4:12 PM This order reflects the patients wishes and were consensually agreed upon. Question Answer Comments Discussion of Advance Directives occurred with: Not Discussed Care Teams Impact Hammer Operator Relationship Specialty Start Date End Date Kinjal Reynoso PA-C [address] [address] PCP - General Physician Chief Ii Dispatcher 11/05/22 documented as of this encounter
--- OUTSIDE RECORDS SUMMARY | 2023-08-07 19:24 | External Medical Summary | Summary of Care ---
Author Name Unknown Organization [facility] Address [address] [place] [address] Phone [phone] Care Team Providers Care Security Incident Response Engineer Name Role Phone Kinjal Reynoso PA-C Primary Care Provider [phone] Reason for Visit * Reason Onset Date Comments Home Health 04/30/2023 Encounter Details Date Type Department Care Team (Late st Contact Info) Description 04/30/2023 Telephone [facility] [address] [facility] [place] [address] Kinjal Reynoso PA-C [address] [facility] [place] [address] Home Health Allergies Active Allergy Reactions Criticality Noted Date [...] as of this encounter (statuses as of 07/30/2023) Medications Medication Sig Dispensed Refills Start Date End Date Status Naloxone HCl 4 MG/0.1ML Nasal Liquid (Narcan Nasal)Indications: Chronic pelvic pain in female,MEDICATION USE AGREEMENT,Chronic abdominal pain ADMINISTER 1 SPRAY INTO 1 NOSTRIL FOR SUSPECTED OPIOID OVERDOSE - SEEK IMMEDIATE MEDICAL ATTENTION. [email or web address] I 2 Each 3 3 Active Peptamen 1.5 Oral Liquid Administer 1000 mL daily, as directed through J Tube via feeding pump 47768 mL 11 3 Active Polyethylene Glycol 3350 17 GM/SCOOP Oral Powder (MiraLax) One cap full in juice, water, coffee, etc., once to twice daily every day. 850 g 2 2 05/24/20 23 Discontinued(Me dication/Dose Changed) Norethindrone Acetate 5 MG Oral Tablet Take 1 Tablet by mouth in the morning. 0 3 07/16/19 24 Discontinued([place]ivera delarosa preference/disc ontinuation) Prevacid 15 MG Oral Capsule Delayed Release 2 Capsules. 0 3 05/18/20 23 Discontinued Acetaminophen 325 MG Oral Tablet (Tylenol) 2 Tablets. 0 3 07/12/19 24 Discontinued Gabapentin 100 MG Oral Capsule (Neurontin) Take 2 Capsules by mouth in the morning and 2 Capsules at noon and 2 Capsules before bedtime. 180 Capsule 0 3 06/14/20 23 Discontinued(Me dication/Dose Changed) Ondansetron 4 MG Oral Tablet Disintegrating (Zofran) Dissolve 1 Tablet on tongue every 8 hours as needed for Nausea. 90 Tablet 0 3 06/17/20 23 Discontinued(Rivera delarosa preference/disc ontinuation) oxyCODONE HCl 10 MG Oral Tablet (Roxicodone)Indica tions:Chronic abdominal pain,Chronic female pelvic pain Take 1.5 Tablets by mouth every 6 hours as needed for Pain, Severe for up to 10 days. 60 Tablet 0 3 05/05/20 23 Discontinued(Re fill) documented as of this encounter (statuses as of 07/30/2023) Active Problems Problem Noted Date Diagnosed Date [...] as of this encounter (statuses as of 07/30/2023) Resolved Problems Problem Noted Date Diagnosed Date [...] as of this encounter (statuses as of 07/30/2023) Immunizations Name Administration Dates Next Due DTaP Dipth/Tet/Acell Pertussis (Infanrix), Peds 01/18/2007,07/03/2002,04/18/2002,11/07 HIB PRP-OMP, 3 dose (Pedvax) 07/03/2002,04/18/20 02,2001 Hep A - Hepatitis A (ped/ado le, 1-18 Yrs) 02/28/2016,09/29/2006 Hepatitis B, 0-19 yrs 01/18/2007,07/03/2002,2001 IPV - Polio Virus Vaccine (Inact) 01/18/2007,,2001 [...] encounter Miscellaneous Notes * Telephone Encounter - Yumiko Alvares CMA - 05/04/2023 8:46 AM EST Myg sent * Telephone Encounter - Manfred Webber OSA - 05/04/2023 7:04 AM EST Faxed DME for wheelchair IV pole to [facility]. * Telephone Encounter - Maximilian Bauer LPN - 05/03/2023 3:10 PM EST MyG message sent to verify if an order for the mattress topper was placed and if so, by who. * Telephone Encounter - Kinjal Reynoso PA-C - 05/03/2023 10:24 AM EST Corrected wheelchair IV poll order. Please check with pt if she needs a DME order for mattress pad. * Telephone Encounter - Cydney Roberts OSA - 05/03/2023 9:59 AM EST Wheelchair order is signed by a nurse, please correct. Thanks! * Telephone Encounter - Akua Armando LPN - 05/03/2023 8:39 AM EST When and by who was gel mattress pad ordered I do not see a DME for it. * Telephone Encounter - Kinjal Reynoso PA-C - 05/01/2023 7:59 AM EST Sent pt a [employer] message addressing constipation and cough. I have signed DME order. Please look into denial of the gel mattress topper. * Telephone Encounter - Barb Carpio LPN - 04/30/2023 4:01 PM EST HH Concerns Leah OT, Calling from: [facility] Report/Concerns of: Concerns with tube feeding, cough and green sputum , hard BM. Symptoms: cough- productive and color green and constipation- last BM yesterday or today Vitals: T 97.5 P 90 RR 18 BP 120/70 SP O2 99% RA Lung sounds CTA Narrative: Reports that the pt's feels the tube is sticking out of her abd more than usual. Leah has a picture of feeding tube when pt was initially started with HH and states that it looks the same with no s/sx of infection. Pt also told Leah that she feels the formula is sticking to the inside of her tube an dshe has to roll the tube to get the feeding unstuck. Pt is concerned that medication could build up and cause an over dose. Leah states that the pt is flushing her feeding tube as ordered. Pt is also have hard BM and would like to know if there is anything she can take through her feeding tube to soften her stools? Also reports that the pt has a cough that is productive of green sputum. Lungs are CTA and is afebrile. Is asking if a a script for a wheelchair IV poll attachment could be sent to [facility]? DME pended. Nursing- While there with the pt, the pt received a call from her insurance company stating that the gel mattress topper was not approved by insurance due to not having enough information as to why the pt needs it. Asks that more information is sent to the pt's insurance company. They are not even aware of the feeding tube. Call back the pt with any advice. Please fax new orders to [phone] Please advise. documented in this encounter Plan of Treatment Upcoming Encounters Date Type Department Care Team (Late st Contact Info) Description 08/20/2023 1:50 PM EST Telemedicine Nutrition & Weight Management, [facility] [address] [address] Kaity Yap RDN [address] [address] 09/20/2023 12:40 PM EDT Office Visit Nutrition & Weight Management, [facility] [address] [address] Cee Santizo PA-C [address] [address] 12/08/2023 5:20 PM EDT Office Visit [facility] [address] [phone] Kinjal Reynoso PA-C [address] [address] Health Maintenance Due Date Last Done Comments [...] this encounter Medical Devices Implanted Type Area Handicapped Teacher Device Identifier Shelf Expiration Date Model / Serial / Lot Port Implant W/8f Poly Cath - [id number] Implanted:Qty : 1 on 05/18/2023 by Juan Jose Connell, at OR [facility] Right: Chest CR BARD : PERIPHERAL VASCULAR [id number] 11/18/2024 [id number] / / [id number] documented as of this encounter Visit Diagnoses Diagnosis PEG (percutaneous endoscopic gastrostomy) status (HCC)- Primary documented in this encounter Additional Health Concerns Infection Onset [...] the patient have Health Care Power of Orthodontist Vice President? No Full Code 07/18/2021 7:04 AM 08/03/2021 4:12 PM This order reflects the patients wishes and were consensually agreed upon. Question Answer Comments Discussion of Advance Directives occurred with: Not Discussed Care Teams Security Incident Response Engineer Relationship Specialty Start Date End Date Kinjal Reynoso PA-C [address] [address] PCP - General Physician Medical Assistant Supervisor 11/05/22 documented as of this encounter
--- OUTSIDE RECORDS SUMMARY | 2023-08-07 19:24 | External Medical Summary | Summary of Care ---
Author Name Unknown Organization [facility] Address [address] [place] [address] Phone [phone] Care Team Providers Care Portable Sawyer Name Role Phone Kinjal Reynoso PA-C Primary Care Provider [phone] Reason for Visit * Reason Onset Date Comments Advice 04/22/2023 Encounter Details Date Type Department Care Team (Late st Contact Info) Description 04/22/2023 Telephone [facility] [address] [facility] [place] [phone] Kinjal Reynoso PA-C [facility] [place] [address] Advice Allergies Active Allergy Reactions Criticality Noted Date [...] as of this encounter (statuses as of 07/22/2023) Medications Medication Sig Dispensed Refills Start Date End Date Status Naloxone HCl 4 MG/0.1ML Nasal Liquid (Narcan Nasal)Indications: Chronic pelvic pain in female,MEDICATION USE AGREEMENT,Chronic abdominal pain ADMINISTER 1 SPRAY INTO 1 NOSTRIL FOR SUSPECTED OPIOID OVERDOSE - SEEK IMMEDIATE MEDICAL ATTENTION. [email or web address] I 2 Each 3 3 Active Peptamen 1.5 Oral Liquid Administer 1000 mL daily, as directed through J Tube via feeding pump 29402 mL 11 3 Active Polyethylene Glycol 3350 [...] tions:Chronic abdominal pain,Chronic female pelvic pain Take 2 Tablets by mouth every 6 hours as needed for Pain, Severe. 49 Tablet 0 3 04/28/20 23 Discontinued(Re fill) documented as of this encounter (statuses as of 07/22/2023) Active Problems Problem Noted Date Diagnosed Date [...] as of this encounter (statuses as of 07/22/2023) Resolved Problems Problem Noted Date Diagnosed Date [...] as of this encounter (statuses as of 07/22/2023) Immunizations Name Administration Dates Next Due DTaP [...] Date Recorded PHQ Adult Total Score 0 01/14/2022 Hunger Vital Sign Answer Date Recorded Within the past 12 months, y ou worried that your food would run out before you got the money to buy more. Never true 08/14/19 23 Within the past 12 months, t he food you bought just didn't last and you didn't have money to get more. Never true 08/14/2022 Sex and Gender Information Value Date Recorded [...] encounter Miscellaneous Notes * Telephone Encounter - Mya Grimes OSA - 04/23/2023 3:34 PM EDT Patient has been notified of the message. Patient has no further questions. * Telephone Encounter - Ivone Whitfield CMA - 04/23/2023 2:57 PM EDT Copy sent to [facility] * Telephone Encounter - Kinjal Reynoso PA-C - 04/23/2023 1:25 PM EDT Letter signed/printed. * Telephone Encounter - Ivone Whitfield CMA - 04/23/2023 11:11 AM EDT Letter pended. Please review * Telephone Encounter - Denise Leija OSA - 04/22/2023 1:07 PM EDT Pt needs a letter of medical necessity to bring her needed medication and feeds on a plane for her j tube. She is flying on the . Please advise. documented in this encounter Plan of Treatment Upcoming Encounters Date Type Department Care Team (Late st Contact Info) Description 07/23/2023 3:40 PM EST Office Visit [facility] [address] [phone] Ace Leonard MD [address] [address] 08/20/2023 1:50 PM EST Telemedicine Nutrition & Weight Management, [facility] [address] [address] Kaity Yap RDN [address] [address] 09/20/2023 12:40 PM EDT Office Visit Nutrition & Weight Management, [facility] [address] [address] Cee Santizo PA-C [address] [place] [address] 12/08/2023 5:20 PM EDT Office Visit [facility] [place] [address] [phone] Kinjal Reynoso PA-C [address] [address] Health Maintenance Due Date Last Done Comments COVID-19 Vaccine (#1) 03/09/2002 GARDASIL-HPV IMMUNIZATION SE KIM (1 - 2-dose series) 2012 Yearly Wellness Visit 01/03/2023 01/03/2022 , 03/29/2020, 02/22/2019, Additional history exists Depression Screening 01/14/2023 01/14/2022 Influenza Vaccine (FLU shot) (#1) 2023 Gonorrhea / Chlamydia Screen 05/02/202405/2023, 12/09/2022, 05/31/2022, Additional history exists DTaP,Tdap,and Td Vaccines (7 - Td or Tdap) 01/03/2031 01/03/2021, 02/28/2016, 01/18/2007, Additional history exists Pneumococcal Vaccine: Pediat rics (0 to 5 Years) and At-Risk Patients (6 to 64 Years) Completed 11/27/2002, 07/03/2002, 04/18/2002, Additional history exists Hepatitis B Completed 01/18/2007, 06/21, 2001 MENINGOCOCCAL (MENACTRA/MENVEO) Completed 02/22/2019, 02/28/2016, 02/28/2016 documented as of this encounter Medical Devices Implanted Type Area Account Retention Representative Device Identifier Shelf Expiration Date Model / Serial / Lot Port Implant W/8f Poly Cath - [id number] Implanted:Qty : 1 on 05/18/2023 by Juan Jose Connell DO at OR [facility] Right: Chest CR BARD : PERIPHERAL VASCULAR [id number] 11/18/2024 [id number] / / [id number] documented as of this encounter Additional Health [...] the patient have Health Care Power of Math And Physics Instructor? No Full Code 07/18/2021 7:04 AM 08/03/2021 4:12 PM This order reflects the patients wishes and were consensually agreed upon. Question Answer Comments Discussion of Advance Directives occurred with: Not Discussed Care Teams Portable Sawyer Relationship Specialty Start Date End Date Kinjal Reynoso PA-C [address] [address] PCP - General Physician [facility] 11/05/22 documented as of this encounter
--- OUTSIDE RECORDS SUMMARY | 2023-08-07 19:24 | External Medical Summary | Summary of Care ---
Author Name Unknown Organization [facility] Address [address] [place] [address] Phone [phone] Care Team Providers Care Electrical And Radio Mock Up Mechanic Name Role Phone Kinjal Reynoso PA-C Primary Care Provider [phone] Reason for Visit * Reason Comments Follow Up Encounter Details Date Type Department Care Team (Late st Contact Info) Description 07/23/2023 3:40 PM EST Office Visit [facility] [address] [facility] [place] [address] Ace Leonard MD [facility] [place] [id number] Chronic pelvic pain in female*; Gastroparesis; Malfunction of jejunostomy tube (HCC) Allergies Active Allergy Reactions Criticality Noted Date [...] as of this encounter (statuses as of 08/02/2023) Medications Medication Sig Dispensed Refills Start Date End Date Status Naloxone HCl 4 MG/0.1ML Nasal Liquid (Narcan Nasal)Indications :Chronic pelvic pain in female,MEDICATION USE AGREEMENT,Chronic abdominal pain ADMINISTER 1 SPRAY INTO 1 NOSTRIL FOR SUSPECTED OPIOID OVERDOSE - SEEK IMMEDIATE MEDICAL ATTENTION. [email or web address] 2 Each 3 03/31/2023 Active Peptamen 1.5 Oral Liquid Administer 1000 mL daily, as directed through J Tube via feeding pump 92730 mL 11 04/12/2023 Active Lansoprazole 15 MG Oral Capsule Delayed Release 2 Capsules. 0 05/18/2023 Active Polyethylene Glycol 3350 17 GM/SCOOP Oral Powder (MiraLax) Stir and dissolve 17 g (measuring line inisde of cap) in 4 to 8 ounces of any liquid and adminsiter into Gastric Tube in the morning and repeat same steps before bedtime. 238 g 1 05/24/2023 Active Lidocaine 5 % External Patch (Lidoderm) Place 1 patch to skin over 12 hours every 24 hours Remove patch after 12 hours.. 30 Patch 0 06/03/2023 Active Additional Information Patient not taking.Reported on 07/23/2023 Promethazine HCl 25 MG Oral Tablet (Phenergan) Take 1 Tablet by mouth every 6 hours as needed for Nausea for up to 90 doses. Crush and mix with water then give through jejunostomy tube, then flush with at least 20 ml of water, use one-half tablet if it feels too strong. 90 Tablet 0 06/14/2023 Active Acetaminophen 160 MG/5ML Oral Suspension (Tylenol) Administer 31.2 mL into J tube every 8 hours as needed for Pain, Moderate. 236 mL 5 07/12/2023 4 Discontinue d(Refill) oxyCODONE HCl 10 MG Oral Tablet (Roxicodone)Indic ations:Chronic abdominal pain,Chronic female pelvic pain Take 1 Tablet by mouth every 8 hours as needed for Pain, Severe or Pain, Moderate. Continuation of Care. Do not fill until 07/19/23. Do not start before July 19, 2023. 21 Tablet 0 07/19/2023 4 Discontinue d(Medicatio n/Dose Changed) Buprenorphine HCl-Naloxone HCl 4-1 MG Sublingual Film (Suboxone)Indicat ions:Chronic abdominal pain,Chronic female pelvic pain Place 1 Film under the tongue in the morning. Do not swallow saliva, and spit after 5 minutes. FOR PAIN. Continuation of Care.. 30 Film 0 07/16/2023 4 Discontinue d(Medicatio n/Dose Changed) oxyCODONE HCl 5 MG Oral Tablet (Oxy IR)Indications:Ch ronic pelvic pain in female,Gastropare sis,Malfunction of jejunostomy tube (HCC) Take 1 Tablet by mouth every 6 hours as needed for Pain, Severe (May take 5th dose for breakthrough pain, no more than 5 tabs in 24 hours.). 35 Tablet 0 07/23/2023 4 Discontinue d(Refill) documented as of this encounter (statuses as of 08/02/2023) Active Problems Problem Noted Date Diagnosed Date [...] as of this encounter (statuses as of 08/02/2023) Resolved Problems Problem Noted Date Diagnosed Date Resolved Date Abdominal pain 02/02/2023 02/03/2023 Intractable vomiting 02/02/2023 023 Duodenitis 02/02/2023 02/03/2023 Ileus 02/02/2023 02/03/2023 Nausea and vomiting 10/23/2022 02/04/20 Intractable nausea and vomiting 07/19/2022 08/12/2022 History of ventricular tachycardia 09/29/2021 10/02/2021 Overview: nonsustained 07/26/2021 Illness anxiety disorder 07/30/2021 Severe protein-energy malnutrition 07/25/2021 07/21/2022 Loss of weight 07/23/2021 10/02/2021 Mood disorder 06/06/2019 03/29/2020 Chest pain 08/01/2015 06/06/2019 Acute pharyngitis 04/16/2015 06/06/2019 Asthma, mild persistent 02/14/201405/21 documented as of this encounter (statuses as of 08/02/2023) Immunizations Name Administration Dates Next Due DTaP [...] on file documented as of this encounter Last Filed Vital Signs Vital Sign Reading Time Taken Comments Blood Pressure 108/74 07/23/2023 3:39 PM EST Pulse 110 07/23/2023 3:39 PM EST Temperature 36.4 C (97.5 F) 07/23/2023 3:39 PM ES T Respiratory Rate 16 07/23/2023 3:39 PM EST Oxygen Saturation 98% 07/23/2023 3:39 PM EST Inhaled Oxygen Concentration - - Weight 75.6 kg (166 lb 9.6 oz) 07/23/2023 3:39 P M EST Height 157.5 cm (5' 2") 07/23/2023 3:39 PM EST Body Mass Index 30.47 07/23/2023 3:39 PM EST documented in this encounter Functional Status Functional Status Response Date of Assess ment Are you deaf or do you have serious difficulty h earing? No 07/07/2023 Are you blind or do you have serious difficulty seeing, even when wearing glasses? No 07/07/2023 Do you have serious difficul ty walking or climbing stairs? (5 years old or older) No 07/07/2023 Do you have difficulty dress ing or bathing? (5 years old or older) No 07/07/2023 Because of a physical, menta l, or emotional condition, do you have difficulty doing errands alone such as visiting a doctor s office or shopping? (15 years old or older) No 07/07/19 24 Cognitive Status Response Date of Assessm ent Because of a physical, menta l, or emotional condition, do you have serious difficulty concentrating, remembering, or making decisions? (5 years old or older) No 07/07/2023 documented as of this encounter Progress Notes * Ace Leonard MD - 08/02/2023 10:38 AM EST Images from the original note were not included. Anirudh Peñaloza is a 22 year old female patient. ICD-10-CM 1. Chronic pelvic pain in female R10.2 G89.29 2. Gastroparesis K31.84 3. Malfunction of jejunostomy tube (HCC) K94.13 Past Medical History: Diagnosis Date Abdominal pain Asthma, exercise induced Endometriosis determined by laparoscopy 11/16/2017 Hx of fall age 5 cut left eyebrow: sutures INFORMATION several concussions Jejunostomy tube in situ (HCC) S/P laparoscopic appendectomy 04/30/2021 S/P laparoscopic hysterectomy 04/30/2021 with bilateral salpingectomy Severe protein-energy malnutrition (HCC) 07/25/2021 Blood pressure 108/74, pulse 110, temperature 36.4 C (97.5 F), temperature source Tympanic, resp. rate 16, height 1.575 m (5' 2"), weight 75.6 kg (166 lb 9.6 oz), SpO2 98%, not currently . The 3 sutures holding in her J-tube have sequentially popped out, with the 1 staying in longest being the thin silk suture I placed approximately 2 weeks ago. She has not able to have the bulb inflated due to concern for obstruction within the intestine, and at this time feels like the silk suture was tolerated well. She does have a history of producing keloids and seems to have rejected the Prolene suture The area around the J-tube was cleaned x3 with alcohol prep pad. 2% lidocaine was then injected in 3 locations equal distant around the J-tube for a total of 6 mL of 2% lidocaine without epinephrine The J-tube was then anchored with 3 0 silk sutures which he tolerated without difficulty and then will bleeding. Instructed to let me know if these were to pull through, in which case she is agreeable to suturing in place with all 6 holes on the 2. If she were to reject the silk in the future, there is a possibility that she will need a gastric tube so that she can have more space to inflate the bulb to keep the tube in place. The packet of suture which was used was opened in a sterile fashion, then placed into a sample bag with her name written on it. There 7 remaining sutures held in my office to use should these need juliana replaced in the future. She is agreeable to keeping the suture stored in a clean manner and available for future use. Chronic pelvic pain: she has tried Suboxone for 1 week and has not had much relief with pain. She would like to switch back to oxycodone and is suggesting a lower equivalent dose as she desires to continue tapering this medication. Will restart at 4mg oxycodone every 6 hours, with one additinoal tablet for severe pain, max 5 tablets in 24 hours. Photo below from 07/16/2023. Suture shown was the last a pull-through I spent a total of 37 minutes between suturing and discussion of pain medications plus documentation of today's visit Ace Leonard MD 08/02/2023 * Amina Bailey MED ASSIST - 07/23/2023 3:37 PM EST Chief Complaint Patient presents with Follow Up Pt here today to discuss medication and get a suture. Patient has been verbally educated on the need or importance of Immunizations: flu and Gardasil andhas declined topic(s). documented in this encounter Plan of Treatment Upcoming Encounters Date Type Department Care Team (Late st Contact Info) Description 08/20/2023 1:50 PM EST Telemedicine Nutrition & Weight Management, [facility] [address] [id number] Kaity Yap RDN [address] [place] [phone] 09/20/2023 12:40 PM EDT Office Visit Nutrition & Weight Management, [facility] [address] [place] [address] Cee Santizo PA-C [address] [place] [address] 12/08/2023 5:20 PM EDT Office Visit Family Practice, [place] [address] [address] Kinjal Reynoso PA-C [address] [facility] [place] [phone] Health Maintenance Due Date Last Done Comments [...] this encounter Medical Devices Implanted Type Area Regional Sales Associate Device Identifier Shelf Expiration Date Model / Serial / Lot Port Implant W/8f Poly Cath - [id number] Implanted:Qty : 1 on 05/18/2023 by Juan Jose Connell DO at OR [facility] Right: Chest CR BARD : PERIPHERAL VASCULAR [id number] 11/18/2024 [id number] / / [id number] documented as of this encounter Visit Diagnoses Diagnosis Chronic pelvic pain in female- Primary Unspecified symptom associated with female genital organs Gastroparesis Malfunction of jejunostomy tube (HCC) Mechanical complication of colostomy and enterostomy documented in this encounter Advance Directives Latest Code Status [...] the patient have Health Care Power of Dobie Man? No Full Code 07/18/2021 7:04 AM 08/03/2021 4:12 PM This order reflects the patients wishes and were consensually agreed upon. Question Answer Comments Discussion of Advance Directives occurred with: Not Discussed Care Teams Electrical And Radio Mock Up Mechanic Relationship Specialty Start Date End Date Kinjal Reynoso PA-C [address] [id number] PCP - General Physician Enamel Drier 11/05/22 documented as of this encounter
--- OUTSIDE RECORDS SUMMARY | 2023-08-07 19:24 | External Medical Summary | Summary of Care ---
Author Name Unknown Organization [facility] Address [address] [place] [address] Phone [phone] Care Team Providers Care Protein Purification Scientist Name Role Phone Kinjal Reynoso PA-C Primary Care Provider [phone] Reason for Visit * Reason Onset Date Comments Home Health 04/23/2023 Encounter Details Date Type Department Care Team (Late st Contact Info) Description 04/23/[address] [facility] [address] [facility] [place] [address] Kinjal Reynoso PA-C [address] [facility] [place] [address] Home Health Allergies Active Allergy Reactions [...] as of this encounter (statuses as of 07/23/2023) Medications Medication Sig Dispensed Refills Start Date End Date Status Naloxone HCl 4 MG/0.1ML Nasal Liquid (Narcan Nasal)Indications:Ch ronic pelvic pain in female,MEDICATION USE AGREEMENT,Chronic abdominal pain ADMINISTER 1 SPRAY INTO 1 NOSTRIL FOR SUSPECTED OPIOID OVERDOSE - SEEK IMMEDIATE MEDICAL ATTENTION. [email or web address] 2 Each 3 03/31/2023 Active Peptamen 1.5 Oral Liquid Administer 1000 mL daily, as directed through J Tube via feeding pump 95135 mL 11 04/12/2023 Active documented as of this encounter (statuses as of 07/23/2023) Active Problems Problem Noted Date Diagnosed Date [...] as of this encounter (statuses as of 07/23/2023) Resolved Problems Problem Noted Date Diagnosed Date [...] as of this encounter (statuses as of 07/23/2023) Immunizations Name Administration Dates Next Due DTaP Dipth/Tet/Acell Pertussis (Infanrix), Peds 01/18/2007,07/03/2002,04/18/2002,11/07 HIB PRP-OMP, 3 dose (Pedvax) 07/03/2002,04/18/20 02,2001 Hep A - Hepatitis A (ped/ado le, 1-18 Yrs) 02/28/2016,09/29/2006 Hepatitis B, 0-19 yrs 01/18/2007,07/03/2002,05/0 06/2001 IPV - Polio Virus Vaccine (Inact) 01/18/2007,,2001 [...] encounter Miscellaneous Notes * Telephone Encounter - Barb Carpio LPN - 04/23/2023 11:00 AM EDT [facility] PT/OT/[facility] [place] Start of Care/Continuation Evelyn PT, Calling from: [facility] PT Plan of care: 2 times per week for 3 weeks starting 05/02/23. Focusing on: leg strength, transfers and gait Concerns: no None Symptoms: none Vitals: T 98.4 P 92 RR 18 BP 114/68 SP O2 98% RA Lung sounds CTA Narrative: Reports that pt's abd pain seems to be improving with med adjustment. Advised that additional visit orders will be signed by Dr. Leonard and to fax to the office for signature. BECK. documented in this encounter Plan of Treatment Upcoming Encounters Date Type Department Care Team (Late st Contact Info) Description 08/20/2023 1:50 PM EST Telemedicine Nutrition & Weight Management, [facility] [address] [place] [address] Kaity Yap RDN [address] [place] [address] 09/20/2023 12:40 PM EDT Office Visit Nutrition & Weight Management, [facility] [address] [place] [address] Cee Santizo PA-C [address] [place] [address] 12/08/2023 5:20 PM EDT Office Visit [facility] [address] [phone] Kinjal Reynoso PA-C [address] [phone] Health Maintenance Due Date Last Done Comments [...] this encounter Medical Devices Implanted Type Area Agriculture Manager Device Identifier Shelf Expiration Date Model / Serial / Lot Port Implant W/8f Poly Cath - [id number] Implanted:Qty : 1 on 05/18/2023 by Juan Jose Connell, at OR [facility] Right: Chest CR BARD : PERIPHERAL VASCULAR [id number] 11/18/2024 [id number] / / [id number] documented as of this encounter Additional Health [...] the patient have Health Care Power of Colors Custodian? No Full Code 07/18/2021 7:04 AM 08/03/2021 4:12 PM This order reflects the patients wishes and were consensually agreed upon. Question Answer Comments Discussion of Advance Directives occurred with: Not Discussed Care Teams Protein Purification Scientist Relationship Specialty Start Date End Date Kinjal Reynoso PA-C [address] [phone] PCP - General Physician Tree Climber 11/05/22 documented as of this encounter
--- OUTSIDE RECORDS SUMMARY | 2023-08-07 19:24 | External Medical Summary ---
Author Name Unknown Address Unknown Organization K1F:[facility] - [address] [facility] [place] [address] Laboratory Report Ordering Provider Test Date Status NICOLLE [place] 08/07/2023 12:50:23 Final Observation Date Value Abnormality Reference (Units ) Status SYNC LEUKOCYTES IN BLOOD BY AUTOMATED COUNT 08/07/2023 12:50:23 5.77 4.00-10.80 (K/uL) Final Segs 08/07/2023 12:50:23 49.5 40.0-75.0 (%) Final Lymphs % 08/07/2023 12:50:23 43.3 Above high normal 18.0-42.0 (%) Final Monos 08/07/2023 12:50:23 6.1 1.0-11.0 (%) Final Eosinophils 08/07/2023 12:50:23 0.5 0.0-6.0 (%) Final Basos 08/07/2023 12:50:23 0.3 0.0-2.0 (%) Final Immature Granulocyte, Percent 08/07/2023 12:50:23 0.3 0.0-2.0 (%) Final Absolute Segs 08/07/2023 12:50:23 2.85 1.80-7.70 (K/uL) Final Lymphs, absolute 08/07/2023 12:50:23 2.50 1.00-4.80 (K/ul) Final Monos, Abs 08/07/2023 12:50:23 0.35 0.00-1.10 (K/uL) Final Eos, Abs 08/07/2023 12:50:23 0.03 0.00-0.70 (K/uL) Final Basos, Abs 08/07/2023 12:50:23 0.02 0.00-0.20 (K/uL) Final Immature Granulocytes, Number 08/07/2023 12:50:23 0.02 0.00-0.20 (K/uL) Final Performing Location [facility] [address] [facility] [address] [place] [address]
--- OUTSIDE RECORDS SUMMARY | 2023-08-07 19:24 | External Medical Summary | Summary of Care ---
Author Name Unknown Organization [facility] Address [address] [place] [address] Phone [phone] Care Team Providers Care Immigration Patrol Inspector Name Role Phone Kinjal Reynoso PA-C Primary Care Provider [phone] Reason for Visit * Reason Comments Medication Refill Encounter Details Date Type Department Care Team (Late st Contact Info) Description 07/22/2023 Refill [facility] [address] [place] [address] Kinjal Reynoso PA-C [facility] [place] [address] Chronic abdominal pain; Chronic female pelvic pain Allergies Active Allergy Reactions Criticality Noted Date [...] as of this encounter (statuses as of 07/26/2023) Medications Medication Sig Dispensed Refills Start Date End Date Status Naloxone HCl 4 MG/0.1ML Nasal Liquid (Narcan Nasal)Indications :Chronic pelvic pain in female,MEDICATION USE AGREEMENT,Chronic abdominal pain ADMINISTER 1 SPRAY INTO 1 NOSTRIL FOR SUSPECTED OPIOID OVERDOSE - SEEK IMMEDIATE MEDICAL ATTENTION. [email or web address] 2 Each 3 03/31/2023 Active Peptamen 1.5 Oral Liquid Administer 1000 mL daily, as directed through J Tube via feeding pump 46035 mL 11 04/12/2023 Active Lansoprazole 15 MG [...] for Pain, Moderate. 236 mL 5 07/12/2023 Active oxyCODONE HCl 10 MG Oral Tablet (Roxicodone)Indic ations:Chronic abdominal pain,Chronic female pelvic pain Take 1 Tablet by mouth every 8 hours as needed for Pain, Severe or Pain, Moderate. Continuation of Care. Do not fill until 07/19/23. Do not start before July 19, 2023. 21 Tablet 0 07/19/2023 Active Additional Information Patient not taking.Reported on 07/23/2023 Buprenorphine HCl-Naloxone HCl 4-1 MG Sublingual Film (Suboxone)Indicat ions:Chronic abdominal pain,Chronic female pelvic pain Place 1 Film under the tongue in the morning. Do not swallow saliva, and spit after 5 minutes. FOR PAIN. Continuation of Care.. 30 Film 0 07/16/2023 08/19/2023 Active documented as of this encounter (statuses as of 07/26/2023) Active Problems Problem Noted Date Diagnosed Date [...] as of this encounter (statuses as of 07/26/2023) Resolved Problems Problem Noted Date Diagnosed Date [...] as of this encounter (statuses as of 07/26/2023) Immunizations Name Administration Dates Next Due DTaP Dipth/Tet/Acell Pertussis (Infanrix), Peds 01/18/2007,07/03/2002,04/18/2002,11/07 HIB PRP-OMP, 3 dose (Pedvax) 07/03/2002,04/18/20 02,2001 Hep A - Hepatitis A (ped/ado le, 1-18 Yrs) 02/28/2016,09/29/2006 Hepatitis B, 0-19 yrs 01/18/2007,07/03/2002,06/2001 IPV - Polio Virus Vaccine (Inact) 01/18/2007,,2001 [...] (15 years old or older) No 07/07/19 Cognitive Status Response Date of Assessm ent Because of a physical, menta l, or emotional condition, do you have serious difficulty concentrating, remembering, or making decisions? (5 years old or older) No 07/07/2023 documented as of this encounter Miscellaneous Notes * Telephone Encounter - Luis M Menard MD - 07/26/2023 6:57 AM ESTRefused Prescriptions: Disp Refills oxyCODONE HCl 10 MG Oral Tablet (Roxicodon*21 Tab*0 Sig: Take 1 Tablet by mouth every 8 hours as needed for Pain, Severe or Pain, Moderate. Continuation of Care. Do not fill until 07/19/23. Do not start before July 19, 2023. Refused By: LUIS M MENARD Reason for Refusal: Other (comment below) * Telephone Encounter - Luis M Menard MD - 07/26/2023 6:57 AM EST Dose changed * Telephone Encounter - Gabriela López [facility] - 07/23/2023 2:02 PM ESTPending Prescriptions: Disp Refills oxyCODONE HCl 10 MG Oral Tablet (Roxicodon*21 Tab*0 Sig: Take 1 Tablet by mouth every 8 hours as needed for Pain, Severe or Pain, Moderate. Continuation of Care. Do not fill until 07/19/23. Do not start before July 19, 2023. * Telephone Encounter - Gabriela López [facility] - 07/23/2023 2:02 PM EST I have reviewed the patients controlled substance dispensing history in the Prescription Drug Monitoring Program in compliance with the [facility] regulations before prescribing a controlled substance. PDMP checked on 07/23/2023. Pending Prescriptions: Disp Refills oxyCODONE HCl 10 MG Oral Tablet (Roxicodo*21 Tab*0 Sig: Take 1 Tablet by mouth every 8 hours as needed for Pain, Severe or Pain, Moderate. Continuation of Care. Do not fill until 07/19/23. Do not start before July 19, 2023. Last Visit: 07/16/2023 (in office), 09/10/2022 (telemedicine) Next Visit: 07/23/2023 Date medication was last filled: 07/19/23 Date medication is due for refill: 07/25/23 Pharmacy: [facility] Is this request for a controlled substance? Yes and Urine Drug Screen was completed Toxicology results: Results for orders placed or performed in visit on 03/29/23 PAIN MANAGEMENT DRUG PANEL, URINE W/ INTERPRETATION Result Value Compliance Interpretation Based on the medication information provided: The positive oxycodone screening result is CONSISTENT with oxycodone use. Confirmatory testing is available upon request. The presence of THC metabolite is INCONSISTENT with the information provided. Amphetamines Screen, U Negative Benzodiazepines Screen, U Negative Cannabinoids Screen, U Refer to confirmation results (A) Cocaine Metabolite Screen, U Negative Fentanyl Screen, U Negative Hydrocodone Screen, U Refer to confirmation results (A) Methadone Metabolite Screen, U Negative Morphine/Codeine Screen, U Negative Oxycodone Screen, U Positive (A) Valid Interpretation Normal Creatinine, U 272 Narrative Cutoff Concentrations: Drug Level Amphetamines 500 ng/mL Benzodiazepines 100 ng/mL Cannabinoids 50 ng/mL Cocaine Metabolite 150 ng/mL Fentanyl 1 ng/mL Hydrocodone / Hydromorphone 300 ng/mL Methadone Metabolite 100 ng/mL Morphine / Codeine 300 ng/mL Oxycodone / Oxymorphone 100 ng/mL Screening results are presumptive and can only be used for medical purposes. Confirmatory testing is available upon request. Results for orders placed or performed during the hospital encounter of 08/17/22 TOXICOLOGY, URINE SCREEN W/O CONFIRMATION Result Value Amphetamines Screen, U Negative Benzodiazepines Screen, U Negative Cannabinoids Screen, U Positive (A) Cocaine Metabolite Screen, U Negative Fentanyl Screen, U Negative Hydrocodone Screen, U Positive (A) Methadone Metabolite Screen, U Negative Morphine/Codeine Screen, U Negative Oxycodone Screen, U Positive (A) Narrative Cutoff Concentrations: Drug Level Amphetamines 500 ng/mL Benzodiazepines 100 ng/mL Cannabinoids 50 ng/mL Cocaine Metabolite 150 ng/mL Fentanyl 1 ng/mL Hydrocodone / Hydromorphone 300 ng/mL Methadone Metabolite 100 ng/mL Morphine / Codeine 300 ng/mL Oxycodone / Oxymorphone 100 ng/mL Screening results are presumptive and can only be used for medical purposes. Confirmatory testing is available upon request. Please approve if appropriate. Thanks, Gabriela López Clinical Pharmacist [facility] ([facility]) [phone] 07/23/2023, 2:02 PM documented in this encounter Plan of Treatment Upcoming Encounters Date Type Department Care Team (Late st Contact Info) Description 08/20/2023 1:50 PM EST Telemedicine Nutrition & Weight Management, [facility] [address] [place] [address] Kaity Yap RDN [address] [place] [address] 09/20/2023 12:40 PM EDT Office Visit Nutrition & Weight Management, [facility] [address] [place] [address] Cee Santizo PA-C [address] [place] [address] 12/08/2023 5:20 PM EDT Office Visit [facility] [address] [address] Kinjal Reynoso PA-C [address] [facility] [place] [address] Health Maintenance Due Date Last Done Comments [...] this encounter Medical Devices Implanted Type Area Coverstitch Elastic Attacher Device Identifier Shelf Expiration Date Model / Serial / Lot Port Implant W/8f Poly Cath - [id number] Implanted:Qty : 1 on 05/18/2023 by Juan Jose Connell DO at OR [facility] [place] Right: Chest CR BARD : PERIPHERAL VASCULAR [id number] 11/18/2024 [id number] / / [id number] documented as of this encounter Visit Diagnoses Diagnosis Chronic abdominal pain Abdominal pain, unspecified site Chronic female pelvic pain Unspecified symptom associated with female genital organs documented in this encounter Advance Directives Latest [...] Code 02/02/2023 10:02 AM 02/03/2023 3:24 PM Thi s order reflects the patients wishes and were [...] the patient have Health Care Power of Coding And Reimbursement Specialist? No Full Code 07/18/2021 7:04 AM 08/03/2021 4:12 PM This order reflects the patients wishes and were consensually agreed upon. Question Answer Comments Discussion of Advance Directives occurred with: Not Discussed Care Teams Immigration Patrol Inspector Relationship Specialty Start Date End Date Kinjal Reynoso PA-C [address] [address] PCP - General Physician Refrigeration Repair Supervisor 11/05/22 documented as of this encounter
--- OUTSIDE RECORDS SUMMARY | 2023-08-07 19:25 | External Medical Summary | Summary of Care ---
Author Name Unknown Organization [facility] Address [address] [place] [address] Phone [phone] Care Team Providers Care Practicing Md Anesthesiologist Name Role Phone Kinjal Reynoso PA-C Primary Care Provider [phone] Reason for Visit * Reason Onset Date Comments Hospital Follow-Up 07/09/2023 [facility] Encounter Details Date Type Department Care Team (Late st Contact Info) Description 07/09/[address] [id number] Trisha Trejo, RN Hospital Follow-Up ([facility]/) Allergies Active Allergy Reactions Criticality Noted Date [...] as of this encounter (statuses as of 07/12/2023) Medications Medication Sig Dispensed Refills Start Date End Date Status Norethindrone Acetate 5 MG Oral Tablet Take 1 Tablet by mouth in the morning. 0 3 Active Naloxone HCl 4 MG/0.1ML Nasal Liquid (Narcan Nasal)Indicatio ns:Chronic pelvic pain in female,MEDICATI ON USE AGREEMENT,Chron ic abdominal pain ADMINISTER 1 SPRAY INTO 1 NOSTRIL FOR SUSPECTED OPIOID OVERDOSE - SEEK IMMEDIATE MEDICAL ATTENTION. [email or web address] 2 Each 3 3 Active Peptamen 1.5 Oral Liquid Administer 1000 mL daily, as directed through J Tube via feeding pump 59747 mL 11 3 Active Lansoprazole 15 MG Oral Capsule Delayed Release 2 Capsules. 0 3 Active Polyethylene Glycol 3350 17 GM/SCOOP Oral Powder (MiraLax) Stir and dissolve 17 g (measuring line inisde of cap) in 4 to 8 ounces of any liquid and adminsiter into Gastric Tube in the morning and repeat same steps before bedtime. 238 g 1 3 Active Lidocaine 5 % External Patch (Lidoderm) Place 1 patch to skin over 12 hours every 24 hours Remove patch after 12 hours.. 30 Patch 0 3 Active Gabapentin 300 MG Oral Capsule (Neurontin) Take 1 Capsule by mouth in the morning and 1 Capsule at noon and 1 Capsule before bedtime. 90 Capsule 0 3 07/16/19 24 Active Promethazine HCl 25 MG Oral Tablet (Phenergan) Take 1 Tablet by mouth every 6 hours as needed for Nausea for up to 90 doses. Crush and mix with water then give through jejunostomy tube, then flush with at least 20 ml of water, use one-half tablet if it feels too strong. 90 Tablet 0 3 Active Acetaminophen 325 MG Oral Tablet (Tylenol) 2 Tablets. 0 3 07/12/19 24 Discontinued oxyCODONE HCl 10 MG Oral Tablet (Roxicodone)Ind ications:Chroni c abdominal pain,Chronic female pelvic pain Take 1 Tablet by mouth every 6 hours as needed for Pain, Severe or Pain, Moderate. Continuation of Care. 28 Tablet 0 4 07/12/19 24 Discontinued(Ref ill) documented as of this encounter (statuses as of 07/12/2023) Active Problems Problem Noted Date Diagnosed Date [...] as of this encounter (statuses as of 07/12/2023) Resolved Problems Problem Noted Date Diagnosed Date [...] as of this encounter (statuses as of 07/12/2023) Immunizations Name Administration Dates Next Due DTaP [...] encounter Miscellaneous Notes * Telephone Encounter - Toyin Cooper RN - 07/12/2023 2:58 PM EST Transitions of Care Note Reason for Referral:Recent Admission Phone visit for follow up: in Admitted to: [facility], Date: 07/06/23 Discharged to: home, Date: 07/08/23 Diagnosis driving hospitalization: Malfunction of jejunostomy tube Source/Contact: Patient SUBJECTIVE Consent: Verbal consent for review of hospital discharge: Yes REVIEW OF SYSTEMS Patient/Other Reports: Current patient/caregiver problems or concerns: Patient states she feels that today the pain seems to be not as constant so she is hoping that it is improving. She also had opening in abdomin that ishealing. CV: Denies problems Pulmonary: Denies problems Chills/Sweats/Fever:Denies chills/sweats Denies fever Appetite:using zofran if needed. Current diet: previous diet, Patient does have a jejunostomy tube. Bowel: denies problems Bladder: denies problems Wound (If applicable): states open area is healing with no problems. Pain:continues to have pain and using oxycodone and tylenol/. States she feels the pain is not as constant today. Sleep:Denies problems FUNCTIONAL STATUS: ADL'S: Needs Assistance With:N/A as pt is independent IADL'S: Needs Assistance With:N/A as pt is independent Cognitive and Mental Health: denies problems, alert and oriented x 3, and able to communicate, understand instructions, process information. MEDICATION RECONCILIATION Medications: Patient reports she does have her medications and she did see that the oxycodone was renewed today. ASSESSMENT Medication Risk Assessment: Taking sedatives/hypnotics/narcotic analgesics and increased fall risk Did patient fail outpatient treatment? Yes Discharge instructions available for review? Yes PLAN Symptom Monitoring Interventions:Member/caregiver education - signs and symptoms to contact PrimaryCare (DO NOT DELETE-[place] symptoms patient is to report to PCP) 1. Increased pain 2. Signs or symptoms of infection 3. Fever/chills Dive SuperintendentDairy Nutrition Specialist of Care interventions/Action Plan: Patient has regular scheduled appointment scheduled with PCP on 07/15/23 and she does she surgeon on07/16/23. She does not feels she needs hospital follow up, but will call if needed. Educated on role of [facility] completed with patient/caregiver. Educated patient/caregiver on patient right to have input on [facility] plan of care. Identified Care Gaps: Yes Care Gaps closed this call: Medication adherence Re-evaluation of Plan of Care and progress towards goals achievement: Patient education this visit: Verbal, see above Plan to instructed to call Primary Care Provider with change in symptoms or as needed before next follow-up, discharge needs met, verbalizes understanding and agrees with plan. Toyin Cooper RN * Telephone Encounter - Joby Chavez OSA - 07/12/2023 2:57 PM EST Reason for patient's call: returning call Caller was transferred to Toyin at the nurse line. * Telephone Encounter - Toyin Cooper RN - 07/12/2023 2:45 PM EST Transitions of Care Note Reason for Referral:Recent Admission Phone visit for follow up: inpatient hospitalization Admitted to: [facility], Date: 07/06/23 Discharged to: home, Date: 07/08/23, Patient ER on 07/10/23 Diagnosis driving hospitalization: Malfunction of jejunostomy tube Telephone call made to patient's number. No answer. Message left on machine to return call. Toyin Cooper, RN * Telephone Encounter - Trisha Trejo, RN - 07/09/2023 3:11 PM EST Transitions of Care Note Reason for Referral:Recent Admission Phone visit for follow up: [facility] Admitted to: [facility], Date: 07/06/23 Discharged to: Home, Date: 07/08/23 Diagnosis driving hospitalization: Malfunction of jejunostomy tube LVMM for patient to return call for hospital followup [facility] call. If patient calls back to the clinicplease obtain best time and number to reach patient or they can call me directly at [phone] with any questions or concerns. Please route to Trisha Trejo RN. Thank you documented in this encounter Plan of Treatment Upcoming Encounters Date Type Department Care Team (Late st Contact Info) Description 07/15/2023 8:40 AM EST Office Visit [facility] [address] [phone] Kinjal Reynoso PA-C [address] [place] [address] 08/20/2023 1:50 PM EST Telemedicine Nutrition & [facility] Management, [facility] [place] [address] Kaity Yap RDN [address] [place] [address] 09/20/2023 12:40 PM EDT Office Visit Nutrition & Weight Management, [facility] [address] [place] [address] Cee Santizo PA-C [address] [place] [address] Health Maintenance Due Date Last Done Comments [...] this encounter Medical Devices Implanted Type Area Mining Helper Device Identifier Shelf Expiration Date Model / Serial / Lot Port Implant W/8f Poly Cath - [id number] Implanted:Qty : 1 on 05/18/2023 by Juan Jose Connell, at OR [facility] Right: Chest CR BARD : PERIPHERAL VASCULAR [id number] 11/18/2024 [id number] / / [id number] documented as of this encounter Advance Directives [...] the patient have Health Care Power of Regional Marketing Director? No Full Code 07/18/2021 7:04 AM 08/03/2021 4:12 PM This order reflects the patients wishes and were consensually agreed upon. Question Answer Comments Discussion of Advance Directives occurred with: Not Discussed Care Teams Practicing Md Anesthesiologist Relationship Specialty Start Date End Date Kinjal Reynoso PA-C [address] [place] [address] PCP - General Physician Dial Maker 11/05/22 documented as of this encounter
--- OUTSIDE RECORDS SUMMARY | 2023-08-07 19:25 | External Medical Summary | Summary of Care ---
Author Name Unknown Organization [facility] Address [address] [place] [address] Phone [phone] Care Team Providers Care Binding Bench Worker Name Role Phone Edgardo Kinjal Britt PA-C Primary Care Provider [phone] Reason for Visit * Reason Comments Other J-tube issues * Auth/Cert Specialty Diagnoses / Procedures Referred By Carmen kirby Referred To Contact Referral ID Status Reason Start Date Expiration Date Visits Re quested Visits Authorized [id number] Encounter Details Date Type Department Care Team ([facility] st Contact Info) Description 07/18/2023 5:49 PM EST - 07/18/2023 7:43 PM EST Emergency [facility] Emergency Department ([facility]) [address], [place] [id number] Carlos Bowles MD [address] [place] [address] Dislodged jejunostomy tube (Primary Dx) Discharge Disposition: Home - Self Care Allergies Active Allergy Reactions Criticality Noted Date [...] as of this encounter (statuses as of 07/19/2023) Medications Medication Sig Dispensed Refills Start Date End Date Status Naloxone HCl 4 MG/0.1ML Nasal Liquid (Narcan Nasal)Indications :Chronic pelvic pain in female,MEDICATION USE AGREEMENT,Chronic abdominal pain ADMINISTER 1 SPRAY INTO 1 NOSTRIL FOR SUSPECTED OPIOID OVERDOSE - SEEK IMMEDIATE MEDICAL ATTENTION. [email or web address] Each 3 03/31/2023 Active Peptamen 1.5 Oral Liquid Administer 1000 mL daily, as directed through J Tube via feeding pump 86442 mL 11 04/12/2023 Active Lansoprazole 15 MG [...] 12 hours.. 30 Patch 0 06/03/2023 Active Promethazine HCl 25 MG Oral Tablet [...] 19, 2023. 21 Tablet 0 07/19/2023 Active Buprenorphine HCl-Naloxone HCl 4-1 MG Sublingual Film (Suboxone)Indicat ions:Chronic abdominal pain,Chronic female pelvic pain Place 1 Film under the tongue in the morning. Do not swallow saliva, and spit after 5 minutes. FOR PAIN. Continuation of Care.. 30 Film 0 07/16/2023 08/15/2023 Active documented as of this encounter (statuses as of 07/19/2023) Active Problems Problem Noted Date Diagnosed Date [...] as of this encounter (statuses as of 07/19/2023) Resolved Problems Problem Noted Date Diagnosed Date [...] as of this encounter (statuses as of 07/19/2023) Immunizations Name Administration Dates Next Due DTaP [...] money to buy more. Never true 08/14/19 Within the past 12 months, t he [...] Sign Reading Time Taken Comments Blood Pressure 129/89 07/18/2023 7:00 PM EST Pulse 72 07/18/2023 7:00 PM EST Temperature 36.6 C (97.9 F) 07/18/2023 7:42 PM ES T Respiratory Rate 18 07/18/2023 7:42 PM EST Oxygen Saturation 99% 07/18/2023 6:45 PM EST Inhaled Oxygen Concentration - - Weight 77 kg (169 lb 12.8 oz) 07/18/2023 3:48 PM EST Height 157.5 cm (5' 2") 07/18/2023 3:48 PM EST Body Mass Index 31.06 07/18/2023 3:48 PM EST documented in this encounter Functional [...] No 07/07/2023 documented as of this encounter Discharge Instructions * Discharge Instructions* Carlos Bowles MD - 07/18/2023 7:39 PM EST Please follow-up with your surgeon at the next available appointment for ER follow-up. Please return to the emergency department the meantime for any new or worsening symptoms otherwise. documented in this encounter ED Notes * Carlos Bowles MD - 07/18/2023 6:54 PM EST HISTORY OF PRESENT ILLNESS Anirudh Peñaloza is a 22 year old female who presents to the ED for evaluation of Other (J-tube issues). The patient was seen at 07/18/231844. Patient here with lower abdominal discomfort and pain around her J-tube site. States that she pulled her shirt up this morning which cause 2 of the 3 stitches holding the hub ofthe J-tube to her abdomen to pull through. She states that the tube came out slightly, but she was then able to replace it on her own. She is worried that it has become displaced, and has not used it since. Review of Systems Gastrointestinal: Positive for abdominal pain. The patient's allergies, past history, and medications were reviewed. PHYSICAL EXAM Initial Vitals (see all): BP 145/98 | Pulse 104 | Resp 16 | Temp 98.1 | O2 98 %, Room Air, None | Weight 77.02 kg | Height 157.5 cm | BMI 31.06 kg/m2 Initial Pain Assessment (see all): 5 (moderate pain)/10, Dull, location: j-tube ([facility] Adult Scale 0-10) Physical Exam Constitutional: General: She is not in acute distress. Appearance: Normal appearance. She is not ill-appearing, toxic-appearing or diaphoretic. Abdominal: General: There is no distension. Tenderness: There is no abdominal tenderness. There is no guarding or rebound. Comments: J-tube hub is in place against the skin, 1 of the stitches remaining is still holding in the skin. The 2 lower stitches have pulled through. Neurological: Mental Status: She is alert. PROCEDURES AND TREATMENTS ED Orders | ED Results MEDICAL DECISION MAKING Nursing notes and vital signs were reviewed. ED Course as of 07/18/23 1940 Sun Jul 18, 2023 1845 ED Triage Notes Pt states " I think my j tube is out of place". States the stitches "kind of came out" this am. Shestates her J tube is stitched in place because the balloon was not able to be inflated the whole way. [MM] 1938 Abdominal x-ray with injected contrast through the J-tube showed intraluminal contrast. No extravasation noted on my interpretation. Pt declined additional stitches in the J tube hub. [MM] ED Course User Index [MM] Carlos Bowles MD Patient here concern for possible G-tube displacement. Physical examination and vital signs as above. Abdominal x-ray with injected contrast through the J-tube showed intraluminal contrast. No extravasation noted on my interpretation. Pt declined for me to place additional stitches in the J tube hub. She will call her surgeon tomorrow. Discharged home in stable condition. Return precautions given. Clinical Impressions Dislodged jejunostomy tube Disposition Discharged. The patient's condition at disposition was: stable. Carlos Bowles * Bettina Kinsey RN - 07/18/2023 3:47 PM EST Pt states " I think my j tube is out of place". States the stitches "kind of came out" this am. Shestates her J tube is stitched in place because the balloon was not able to be inflated the whole way. documented in this encounter Plan of Treatment Upcoming Encounters Date Type Department Care Team (Late st Contact Info) Description 08/20/2023 1:50 PM EST Telemedicine Nutrition & Weight Management, [facility] [address] [address] Kaity Yap RDN [address] [phone] 09/20/2023 12:40 PM EDT Office Visit Nutrition & Weight Management, [facility] [address] [address] Cee Santizo PA-C [address] [place] [phone] 12/08/2023 5:20 PM EDT Office Visit Family [facility], [place] [address] [phone] Kinjal Reynoso PA-C [address] [phone] Health Maintenance Due Date Last Done [...] this encounter Medical Devices Implanted Type Area Cardiac Rehabilitation Specialist Device Identifier Shelf Expiration Date Model / Serial / Lot Port Implant W/8f Poly Cath - [id number] Implanted:Qty : 1 on 05/18/2023 by Juan Jose Connell DO at OR [facility] Right: Chest CR BARD : [employer] [id number] 11/18/2024 [id number] / / [id number] documented as of this encounter Procedures Procedure Name Priority Date/Time Associated Diagnosis Comments XR GI TUBE EVAL WITH CONTRAST INJECTION STAT 07/18/2023 7:39 PM EST documented in this encounter Results * XR GI TUBE EVAL WITH CONTRAST INJECTION (07/18/2023 7:39 PM EST) Anatomical Region Laterality Modality GI, Abdomen, Pelvis Digital Radi ography 07/18/2023 7:26 PM EST Impressions 07/18/2023 8:22 PM EST IMPRESSION: Contrast material was infused through the patient's jejunostomy tube which is satisfactorily located within a mid abdominal small bowel loop. No extravasation of contrast material. THIS DOCUMENT HAS BEEN ELECTRONICALLY SIGNED BY JUAN JOSE MONTELONGO MD Narrative 07/18/2023 8:22 PM EST PROCEDURE INFORMATION: Exam: XR Abdomen Exam date and time: 07/18/2023 7:26 PM Age: 22 years old Clinical indication: Symptoms: J tube possible displacement TECHNIQUE: Imaging protocol: Radiologic exam of the abdomen. Views: Frontal supine view of the abdomen. 1 View. COMPARISON: CT ABD/PELVIS W IV CONTRAST - WO ORAL CONTRAST 07/10/2023 3:52 PM FINDINGS: Gastrointestinal tract: No bowel dilation. Contrast material was infused through the patient's jejunostomy tube which is satisfactorily located within a mid abdominal small bowel loop. No extravasation of contrast material. Bones/joints: Unremarkable for patient age. Procedure Note Juan Jose Montelongo MD - 07/18/2023 PROCEDURE INFORMATION: Exam: XR Abdomen Exam date and time: 07/18/2023 7:26 PM Age: 22 years old Clinical indication: Symptoms: J tube possible displacement TECHNIQUE: Imaging protocol: Radiologic exam of the abdomen. Views: Frontal supine view of the abdomen. 1 View. COMPARISON: CT ABD/PELVIS W IV CONTRAST - WO ORAL CONTRAST 07/10/2023 3:52 PM FINDINGS: Gastrointestinal tract: No bowel dilation. Contrast material was infused through the patient's jejunostomy tube whichis satisfactorily located within a mid abdominal small bowel loop. No extravasation of contrast material. Bones/joints: Unremarkable for patient age. IMPRESSION IMPRESSION: Contrast material was infused through the patient's jejunostomy tube whichis satisfactorily located within a mid abdominal small bowel loop. No extravasation of contrast material. THIS DOCUMENT HAS BEEN ELECTRONICALLY SIGNED BY JUAN JOSE MONTELONGO MD Carlos Bowles MD RAD FLUOROSCOPY documented in this encounter Visit Diagnoses Diagnosis Dislodged jejunostomy tube- Primary Mechanical complication of colostomy and enterostomy documented in this encounter Administered Medications Inactive Administered Medications - up to 3 most recent administrations Medication Order MAR Action Action Date Dose Rate Site Ioversol (Optiray 320) inj 50 mL 50 mL, Injection, ONCE, On 07/18/23 at 2014, For 1 dose, Radiology Medication Routing (Non-IR) Given 07/18/2023 7:41 PM EST 50 mL documented in this encounter Active and Recently Administered Medications Times are shown in EST. Scheduled Medication Order 07/16/2023 07/17/2023 07/18/2023 Ioversol (Optiray 320) inj 50 mL (COMPLETED) 50 mL, Injection, ONCE, On 07/18/23 at 2014, For 1 dose, Radiology Medication Routing (Non-IR) 1940 (Given - Provid er: Toyin Meyer RT) documented in this encounter Advance Directives Latest [...] the patient have Health Care Power of Fiscal Assistant? No Full Code 07/18/2021 7:04 AM 08/03/2021 4:12 PM This order reflects the patients wishes and were consensually agreed upon. Question Answer Comments Discussion of Advance Directives occurred with: Not Discussed Care Teams Binding Bench Worker Relationship Specialty Start Date End Date Kinjal Reynoso PA-C [address] [phone] PCP - General Physician Process Developer 11/05/22 documented as of this encounter
--- OUTSIDE RECORDS SUMMARY | 2023-08-07 19:25 | External Medical Summary | Summary of Care ---
Author Name Unknown Organization [facility] Address [address] [place] [address] Phone [phone] Care Team Providers Care Email Designer Name Role Phone Kinjal Reynoso PA-C Primary Care Provider [phone] Reason for Referral * Evaluate & Treat - Unlimited Visits (Within 10 days (routine)) - Pending Review Specialty Diagnoses / Procedures Referred By Carmen kirby Referred To Contact Physical Therapy / Physical Medicine And Rehab Diagnoses Chronic bilateral low back pain without sciatica Kinjal Reynoso PA-C [place] [id number] Referral ID Status Reason Start Date Expiration Date Visits Requested Visits Authorized [id number] Pending Review Specialty Services Required 07/16/[phone] Question Answer Referral Priority Within 10 days (routine) Where should this appointment be scheduled? Nikhil Reason for Visit * Reason Comments Follow Up 3 mo ret-Pt kevin narvaez stitches checked at J tube site-does see surgeon todayPatient has been verbally educated on the need or importance of Immunizations: HPV and flu and has declined topic(s). Encounter Details Date Type Department Care Team ([facility] Contact Info) Description 07/16/2023 10:00 AM EST [facility] [place] [phone] Kinjal Reynoso [facility]-C [facility] [place] [place] [phone] Gastroparesis*; Jejunostomy tube present (HCC); Reaction of skin due to suture material; Chronic abdominal pain; Chronic female pelvic pain; Chronic bilateral low back pain without sciatica Allergies Active Allergy Reactions Criticality Noted Date [...] as of this encounter (statuses as of 07/16/2023) Medications Medication Sig Dispensed Refills Start Date End Date Status Naloxone HCl 4 MG/0.1ML Nasal Liquid (Narcan Nasal)Indication s:Chronic pelvic pain in female,MEDICATIO N USE AGREEMENT,Chroni c abdominal pain ADMINISTER 1 SPRAY INTO 1 NOSTRIL FOR SUSPECTED OPIOID OVERDOSE - SEEK IMMEDIATE MEDICAL ATTENTION. [email or web address] 2 Each 3 03/31/2023 Active Peptamen 1.5 Oral Liquid Administer 1000 mL daily, as directed through J Tube via feeding pump 50018 mL 11 04/12/2023 Active Lansoprazole 15 MG [...] 12 hours.. 30 Patch 0 06/03/2023 Active Gabapentin 300 MG Oral Capsule (Neurontin) Take 1 Capsule by mouth in the morning and 1 Capsule at noon and 1 Capsule before bedtime. 90 Capsule 0 06/14/2023 4 Active Promethazine HCl 25 MG Oral Tablet [...] Active oxyCODONE HCl 10 MG Oral Tablet (Roxicodone)Sarah cations:Chronic abdominal pain,Chronic female pelvic pain Take 1 Tablet by mouth every 8 hours as needed for Pain, Severe or Pain, Moderate. Continuation of Care. Do not fill until 07/19/23. Do not start before July 19, 2023. 21 Tablet 0 07/19/2023 Active Buprenorphine HCl-Naloxone HCl 4-1 MG Sublingual Film (Suboxone)Indica tions:Chronic abdominal pain,Chronic female pelvic pain Place 1 Film under the tongue in the morning. Do not swallow saliva, and spit after 5 minutes. FOR PAIN. Continuation of Care.. 30 Film 0 07/16/2023 4 Active Norethindrone Acetate 5 MG Oral Tablet Take 1 Tablet by mouth in the morning. 0 11/19/2022 4 Discontinue d(Patient preference/ discontinua tion) oxyCODONE HCl 10 MG Oral Tablet (Roxicodone)Sarah cations:Chronic abdominal pain,Chronic female pelvic pain Take 1 Tablet by mouth every 8 hours as needed for Pain, Severe or Pain, Moderate. Continuation of Care. 21 Tablet 0 07/12/2023 4 Discontinue d(Refill) Buprenorphine HCl-Naloxone HCl 4-1 MG Sublingual Film (Suboxone) Place 1 Film under the tongue in the morning. Do not swallow saliva, and spit after 5 minutes. FOR PAIN. 30 Film 0 07/16/2023 4 Discontinue d(Refill) documented as of this encounter (statuses as of 07/16/2023) Active Problems Problem Noted Date Diagnosed Date [...] as of this encounter (statuses as of 07/16/2023) Resolved Problems Problem Noted Date Diagnosed Date [...] as of this encounter (statuses as of 07/16/2023) Immunizations Name Administration Dates Next Due DTaP [...] Passive Smoke Exposure: Never Smokeless Tobacco: Never Tobacco Cessation:Counseling Given: No Alcohol Use Standard Drinks/Week Comments Not Currently [...] Sign Reading Time Taken Comments Blood Pressure 108/66 07/16/2023 9:42 AM EST Pulse 100 07/16/2023 9:42 AM EST Temperature 36.1 C (96.9 F) 07/16/2023 9:42 AM ES T Respiratory Rate 16 07/16/2023 9:42 AM EST Oxygen Saturation 98% 07/16/2023 9:42 AM EST Inhaled Oxygen Concentration - - Weight 77 kg (169 lb 12.8 oz) 07/16/2023 9:42 AM EST Height - - Body Mass Index 31.06 07/07/2023 3:58 AM EST documented in this encounter Functional Status [...] No 07/07/2023 documented as of this encounter Patient Instructions * Patient Instructions* Kinjal Reynoso PA-C - 07/16/2023 10:22 AM EST Recommend the probiotic BioGia and D-Limonene supplement to help speed gastric emptying. Turmeric and Randi documented in this encounter Progress Notes * Luis M Menard MD - 07/16/2023 1:54 PM EST I was present for evaluation of pt, and removed and replaced the suture without difficulty. If she has no reaction to this, as she tends to form keloids, can replace all sutures with a larger size silk suture. Luis M Menard MD, MARLENI Family Physician Nikhil [place] * Kinjal Reynosoah, FABI - 07/16/2023 1:32 PM ESTAssociated Order(s): Replacement of suture Post-Procedure Diagnose(s): Jejunostomy tube present (HCC); Reaction of skin due to suture material Anirudh Peñaloza is a 22 year old female patient. ICD-10-CM 1. Gastroparesis K31.84 2. Jejunostomy tube present (HCC) Z93.4 3. Reaction of skin due to suture material T88.8XXA R23.9 4. Chronic abdominal pain R10.9 G89.29 5. Chronic female pelvic pain R10.2 G89.29 6. Chronic bilateral low back pain without sciatica M54.50 G89.29 Past Medical History: Diagnosis Date Abdominal pain Asthma, exercise induced Endometriosis determined by laparoscopy 11/16/2017 Hx of fall age 5 cut left eyebrow: sutures INFORMATION several concussions Jejunostomy tube in situ (HCC) S/P laparoscopic appendectomy 04/30/2021 S/P laparoscopic hysterectomy 04/30/2021 with bilateral salpingectomy Severe protein-energy malnutrition (HCC) 07/25/2021 Blood pressure 108/66, pulse 100, temperature 36.1 C (96.9 F), temperature source Tympanic, resp. rate 16, weight 77 kg (169 lb 12.8 oz), SpO2 98%, not currently . Replacement of suture Date/Time: 07/16/2023 11:00 AM Performed by: Luis M Menard MD Authorized by: Luis M Menard MD Location: abdomen. Anesthesia: Local Anesthetic: lidocaine 1% without epinephrine Anesthetic total: 2 mL Sedation: Patient sedated: no Patient tolerance: patient tolerated the procedure well with no immediate complications Comments: One loose suture holding J-tube in place was removed. Skin cleaned with alcohol prep pads. Area was numbed with 2mL of lidocaine. Then a single 4-0 non-absorbable silk suture was placed anchoring top half of J-tube to abdomen. The remaining 2 sutures were examined and felt to be secure not requiring replacement. * Kinjal Reynoso PA-C - 07/16/2023 10:03 AM EST Images from the original note were not included. History of Present Illness Chief Complaint Patient presents with Follow Up 3 mo ret- Pt would like stitches checked at J tube site-does see surgeon today Patient has been verbally educated on the need or importance of Immunizations: HPV and flu and has declined topic(s). Pt presents for 3 month follow up. She had surgery for replacement of J tube. There were complications. The balloon could not be inflated properly and tube had to be stitched in place. One stitch looks like it is coming out. She was told that sutures need to stay because they are the only thing holding tube in. Tube is working well, but it is more uncomfortable compared to the other tube. She follows with GI nutrition for tube feedings. She is seeing GI for gastroparesis, but not sure what the long-term plan is. She takes Zofran and phenergan as needed. She takes Miralax as needed for constipation. Pain is about 6/10 today. Some days are better than others. Oxycodone is being weaned down slowly. She is on 10mg TID currently. She is doing okay and trying to figure out what else she can do to help with her abdominal and back pain. She takes Tylenol which helps a little. Heat helps a little. Shehas been trying to stretch her back. She is agreeable to PT for her back pain. She is asking about Suboxone. Note that Pt sees surgeon for follow up in [place] today. This is the doctor who did the originalrevision of J tube on 06/07/24. This tube failed and pt then had to have another revision done on 07/08/[address] Finn. Current Medications: Gabapentin 300 MG Oral Capsule (Neurontin) Lansoprazole 15 MG Oral Capsule Delayed Release Peptamen 1.5 Oral Liquid Acetaminophen 160 MG/5ML Oral Suspension (Tylenol) oxyCODONE HCl 10 MG Oral Tablet (Roxicodone) Promethazine HCl 25 MG Oral Tablet (Phenergan) Lidocaine 5 % External Patch (Lidoderm) Polyethylene Glycol 3350 17 GM/SCOOP Oral Powder (MiraLax) Naloxone HCl 4 MG/0.1ML Nasal Liquid (Narcan Nasal) Physical Exam BP 108/66 | Pulse 100 | Temp 36.1 C (96.9 F) (Tympanic) | Resp 16 | Wt 77 kg (169 lb 12.8 oz) |LMP (LMP Unknown) | SpO2 98% | BMI 31.06 kg/m | BSA 1.84 m Physical Exam Vitals and nursing note reviewed. Constitutional: General: She is not in acute distress. Appearance: Normal appearance. She is not ill-appearing, toxic-appearing or diaphoretic. Cardiovascular: Rate and Rhythm: Normal rate. Pulmonary: Effort: Pulmonary effort is normal. Abdominal: Tenderness: There is abdominal tenderness. There is guarding (chronic). Comments: J-tube present and sutured in place with 3 sutures. Top suture is loose and seems to be in place by thin piece of skin. The other 2 sutures are secure. Pt is have some reaction to the sutures as skin is irritated around sutures, more so by the top suture. See picture. Neurological: Mental Status: She is alert. Assessment and Plan Gastroparesis Pt is following with GI. I suggested trying probiotic and d-limonene supplement as well as possibleginger and turmeric to help with gastric emptying and GI symptoms. Dr. Menard was also consulted. Jejunostomy tube present (HCC) Reaction of skin due to suture material Dr. Menard consulted regarding loose suture and skin reaction to sutures. He reached out to Dr. Tarango placed tube. Okay to change out loose suture with any non-dissolvable suture. This was done today by Dr. Menard. Silk suture used this time in hopes that pt's skin tolerates this better. Other 2 sutures were left in place for now. See procedure note. Chronic abdominal pain Chronic female pelvic pain Dr. Menard was consulted regarding Suboxone. He spoke with pt and reviewed benefits and risks. Sublingual suboxone may impact gut motility less than oxycodone. He advised switching to sublingual Suboxone 4-1 mg daily. This will need prior-auth and so oxycodone was refilled one more time for 7 days. - oxyCODONE HCl 10 MG Oral Tablet (Roxicodone); Take 1 Tablet by mouth every 8 hours as needed for Pain, Severe or Pain, Moderate. Continuation of Care. Do not fill until 07/19/23. Do not start beforeJuly 19, 2023. - Buprenorphine HCl-Naloxone HCl 4-1 MG Sublingual Film (Suboxone); Place 1 Film under the tongue in the morning. Do not swallow saliva, and spit after 5 minutes. FOR PAIN. Continuation of Care Chronic bilateral low back pain without sciatica Pt agreeable to PT. - PHYSICAL THERAPY REFERRAL OP Wrap-Up Return in about 3 months (around 10/15/2023) for Follow up. Time: I spent a total of 40-54 minutes (exact time 50 mins) on the date of service in preparation, delivery, and documentation of the care provided to Anirudh Peñaloza excluding any time spent inthe performance of separately billed services. This note was completed using the dictation program Fluency Direct. As such, there may be misspellings, word substitutions, or other variations that should not change the essence of the clinical content of this encounter note. Please direct questions to me if need for clarification arises. documented in this encounter Miscellaneous Notes * Addendum Note - Luis M Menard MD - 07/16/2023 2:01 PM ESTAddended by: LUIS M MENARD on: 07/16/2023 02:01 PM Modules accepted: Level of Service documented in this encounter Plan of Treatment Upcoming Encounters Date Type Department Care Team (Late st Contact Info) Description 08/20/2023 1:50 PM EST Telemedicine Nutrition & Weight Management, [address] [place] [address] Kaity Yap RDN [address] [place] [address] 09/20/2023 12:40 PM EDT Office Visit Nutrition & Weight Management, [facility] [address] [place] [address] Cee Santizo PA-C [address] [place] [address] 12/08/2023 5:20 PM EDT Office Visit Family [facility] [place] [phone] Kinjal Reynoso PA-C [address] [facility] [address] Scheduled Referrals Name Type Priority Associated Diagnoses Orde r Schedule PHYSICAL THERAPY REFERRAL OP Referral Within 10 days (routine) Chronic bilateral low back pain without sciatica Ordered: 07/16/2023 Health Maintenance Due Date Last Done Comments [...] this encounter Medical Devices Implanted Type Area Social Media Coordinator Device Identifier Shelf Expiration Date Model / Serial / Lot Port Implant W/8f Poly Cath - [id number] Implanted:Qty : 1 on 05/18/2023 by Juan Jose Connell DO at OR [facility] Right: Chest CR BARD : PERIPHERAL VASCULAR [id number] 11/18/2024 [id number] / / [id number] documented as of this encounter Procedures Procedure Name Priority Date/Time Associated Diagnosis Comments PROCDOC LACERATION REPAIR Routine 07/16/2023 11:00 AM EST Jejunostomy tube present (HCC) Reaction of skin due to suture material documented in this encounter Results * Replacement of suture (07/16/2023 11:00 AM EST) Narrative Kinjal Reynoso PA-C - 07/16/2023 11:00 AM EST Kinjal Reynoso PA-C 07/16/2023 1:51 PM Replacement of suture Date/Time: 07/16/2023 11:00 AM Performed by: Luis M Menard MD Authorized by: Luis M Menard MD Location: abdomen. Anesthesia: Local Anesthetic: lidocaine 1% without epinephrine Anesthetic total: 2 mL Sedation: Patient sedated: no Patient tolerance: patient tolerated the procedure well with no immediate complications Comments: One loose suture holding J-tube in place was removed. Skin cleaned with alcohol prep pads. Area was numbed with 2mL of lidocaine. Then a single 4-0 non-absorbable silk suture was placed anchoring top half of J-tube to abdomen. The remaining 2 sutures were examined and felt to be secure not requiring replacement. Luis M Menard MD PROCDOC FORM documented in this encounter Visit Diagnoses Diagnosis Gastroparesis- Primary Jejunostomy tube present (HCC) Status of other artificial opening of gastrointestinal tract Reaction of skin due to suture material Chronic abdominal pain Abdominal pain, unspecified site Chronic female pelvic pain Unspecified symptom associated with female genital organs Chronic bilateral low back pain without sciatica documented in this encounter Advance Directives Latest [...] the patient have Health Care Power of Proced Tech? No Full Code 07/18/2021 7:04 AM 08/03/2021 4:12 PM This order reflects the patients wishes and were consensually agreed upon. Question Answer Comments Discussion of Advance Directives occurred with: Not Discussed Care Teams Email Designer Relationship Specialty Start Date End Date Kinjal Reynoso PA-C 21 [place] [address] PCP - General Physician Blindstitch Lining Feller 11/05/22 documented as of this encounter
--- OUTSIDE RECORDS SUMMARY | 2023-08-07 19:25 | External Medical Summary | Summary of Care ---
Author Name Unknown Organization [facility] Address [address] [place] [address] Phone [phone] Care Team Providers Care Stone Derrickman And Rigger Name Role Phone Kinjal Reynoso PA-C Primary Care Provider [phone] Reason for Visit * Reason Onset Date Comments Advice 07/22/2023 Encounter Details Date Type Department Care Team (Late st Contact Info) Description 07/22/2023 Telephone [facility] 21 [facility] [place] [phone] Kinjal Reynoso PA-C 21 [facility] [place] [address] Advice Allergies Active Allergy Reactions [...] OPIOID OVERDOSE - SEEK IMMEDIATE MEDICAL ATTENTION. [email or web address] 2 Each 3 03/31/2023 Active Peptamen 1.5 Oral Liquid Administer 1000 mL daily, as directed through J Tube via feeding pump 98752 mL 11 04/12/2023 Active Lansoprazole 15 MG [...] Telephone Encounter - Yumiko Alvares CMA - 07/22/2023 4:38 PM EST Pt informed of the below msg and verbalized understanding. Pt nory with Dr. Leonard tomorrow at 340 pm. Pt aware and agreeable. Pt will continue Suboxone until tomorrow appt as directed. [facility] 2 Silk suture. Waiting on msg back. Dr. Leonard did advise that we can use the suture we have and bring her back at a later date once weare able to get thicker suture. Will wait on msg back and can always order if needed. * Telephone Encounter - Ace Leonard MD - 07/22/2023 3:40 PM EST She can be added on tomorrow on my schedule. Looks like it will be a double book. Yumiko/ Sherine- Can we order a thicker silk suture? 2 would be great (not 2-0, which is smaller). Surgery may have a box we can have brought over. Will discuss her pain medication then. She should continue to use the suboxone until we discuss Ace Leonard MD, MARLENI Family Physician Nikhil [place] * Telephone Encounter - Yumiko Alvares CMA - 07/22/2023 2:32 PM EST Please see below msg. Pt declined stitch at ED on 07/18 and states she would contact her surgeon. Recc pt to contact her surgeon to re-stitch? Kinjal is not in the clinic today. Spoke with Dr. Cota who advised that pt should contact her surgeon to re-stitch the J-tube. Pt states she did call her surgeon and the soonest they could see her was August. Pt is wanting msg sent to Dr. Leonard and kinjal to see if either one of them could placed stitch when back in office. Pt also states she did research and spoke with her family on the Suboxone films and she does not feel this is the best option for her. She used them for 2 days, but does not wish to continue. She already disposed of the Oxycodone by putting it in cat litter and throwing it away at home (which she found this online to dispose of narcotic). Asking for new script of oxycodone to be sent to [facility] pharmacy instead of the [facility] pharmacy. Pt is agreeable to continue wean of oxycodone and try to find a better alternative to Suboxone. * Telephone Encounter - Apurva Huang OSA - 07/22/2023 11:44 AM EST Patient calling in regards to- J tube needs re stitched- was informed patient could come here to have this done. Offered patient 8:00am appointment for 07/23/23 and an appt with PCP on 07/28/23 patient declined both would like to speak with nurse. documented in this encounter Plan of Treatment Upcoming Encounters Date Type Department Care Team (Late st Contact Info) Description 07/23/2023 3:40 PM EST Office Visit [facility] 21 [place] [phone] Ace Leonard MD 21 [place] [address] 08/20/2023 1:50 PM EST Telemedicine Nutrition & Weight Management, [facility] [address] [place] [address] Kaity Yap RDN [address] [place] [address] 09/20/2023 12:40 PM EDT Office Visit Nutrition & Weight Management, [facility] [address] [place] [address] Cee Santizo PA-C [address] [place] [address] 12/08/2023 5:20 PM EDT Office Visit [facility] 21 [place] [phone] Kinjal Reynoso PA-C 21 [place] [address] Health Maintenance Due Date Last Done Comments [...] this encounter Medical Devices Implanted Type Area Patent Litigation Associate Device Identifier Shelf Expiration Date Model / Serial / Lot Port Implant W/8f Poly Cath - [id number] Implanted:Qty : 1 on 05/18/2023 by Juan Jose Connell, at OR [facility] Right: Chest CR BARD : PERIPHERAL VASCULAR [id number] 11/18/2024 [id number] / / [id number] documented as of this encounter Advance Directives [...] the patient have Health Care Power of Linux System Admin? No Full Code 07/18/2021 7:04 AM 08/03/2021 4:12 PM This order reflects the patients wishes and were consensually agreed upon. Question Answer Comments Discussion of Advance Directives occurred with: Not Discussed Care Teams Stone Derrickman And Rigger Relationship Specialty Start Date End Date Kinjal Reynoso PA-C 21 [place] [address] PCP - General Physician Aboriginal Community Council Member 11/05/22 documented as of this encounter
--- OUTSIDE RECORDS SUMMARY | 2023-08-07 19:25 | External Medical Summary | Summary of Care ---
Author Name Unknown Organization [facility] Address [address] [place] [address] Phone [phone] Care Team Providers Care Sand Caster Apprentice Name Role Phone Kinjal Reynoso PA-C Primary Care Provider [phone] Reason for Referral * Evaluate & Treat - Unlimited Visits (Within 10 days (routine)) - Pending Review Specialty Diagnoses / Procedures Referred By Carmen kirby Referred To Contact Physical Therapy / Physical Medicine And Rehab Diagnoses Chronic bilateral low back pain without sciatica Kinjal Reynoso PA-C [place] [address] Referral ID Status Reason Start Date Expiration Date Visits Requested Visits Authorized [id number] Pending Review Specialty Services Required 07/16/2023 999 [...] Encounter Details Date Type Department Care Team ([facility] Contact Info) Description 07/16/2023 10:00 AM EST [facility] [place] [phone] Kinjla [facility]oso [facility]-C [facility] [place] [phone] Gastroparesis*; Jejunostomy tube present (HCC); Reaction of [...] - SEEK IMMEDIATE MEDICAL ATTENTION. [email or web address] 2 Each 3 03/31/2023 Active Peptamen 1.5 Oral Liquid Administer 1000 mL daily, as directed through J Tube via feeding pump 88932 mL 11 04/12/2023 Active Lansoprazole 15 MG [...] MD, MARLENI Family Physician Nikhil [place] * Edgardo Kinjal FABI Britt - 07/16/2023 1:32 PM ESTAssociated Order(s): Replacement [...] Pt sees surgeon for follow up in [place] today. This is the doctor who did [...] PM EST Telemedicine Nutrition & Weight Management, [address] [place] [address] Kaity Yap RDN [address] [place] [address] 09/20/2023 12:40 PM EDT Office Visit Nutrition & Weight Management, [facility] [address] [place] [address] Cee Santizo PA-C [address] [place] [address] 12/08/2023 5:20 PM EDT Office Visit Family [facility] [place] 21 [place] [phone] Kinjal Reynoso PA-C [address] [place] [address] Scheduled Referrals Name Type Priority Associated Diagnoses [...] this encounter Medical Devices Implanted Type Area Pressroom Supervisor Device Identifier Shelf Expiration Date Model / Serial / Lot Port Implant W/8f Poly Cath - [id number] Implanted:Qty : 1 on 05/18/2023 by Juan Jose Connell DO at OR [facility] Right: Chest CR BARD : PERIPHERAL VASCULAR [id number] 11/18/2024 [id number] / / [id number] documented as of this encounter Procedures Procedure [...] the patient have Health Care Power of Cloth Picker? No Full Code 07/18/2021 7:04 AM 08/03/2021 4:12 PM This order reflects the patients wishes and were consensually agreed upon. Question Answer Comments Discussion of Advance Directives occurred with: Not Discussed Care Teams Sand Caster Apprentice Relationship Specialty Start Date End Date Kinjal Reynoso PA-C 21 [place] [address] PCP - General Physician Poultry Buyer 11/05/22 documented as of this encounter
--- OUTSIDE RECORDS SUMMARY | 2023-08-07 19:25 | External Medical Summary | Summary of Care ---
Author Name Unknown Organization [facility] Address [address] [place] [address] Phone [phone] Care Team Providers Care Compensation Programs Manager Name Role Phone Kinjal Reynoso PA-C Primary Care Provider [phone] Reason for Visit * Reason Onset Date Comments Advice 07/22/2023 Encounter Details Date Type Department Care Team (Late st Contact Info) Description 07/22/2023 Telephone [facility] [address] [facility] [place] [address] Kinjal Reynoso PA-C [address] [facility] [place] [address] Advice Allergies Active Allergy [...] OPIOID OVERDOSE - SEEK IMMEDIATE MEDICAL ATTENTION. [email or web address] 2 Each 3 03/31/2023 Active Peptamen 1.5 Oral Liquid Administer 1000 mL daily, as directed through J Tube via feeding pump [id number] mL 11 04/12/2023 Active Lansoprazole 15 MG [...] encounter Miscellaneous Notes * Telephone Encounter - Ace Leonard MD [...] and states she would contact her surgeon. [facility] pt to contact her surgeon to re-stitch? [...] script of oxycodone to be sent to [facility] pharmacy instead of the [facility] pharmacy. Pt is agreeable to continue wean [...] PM EST Telemedicine Nutrition & Weight Management, [facility] [address] [place] [place] [address] Kaity Yap RDN [address] [place] [place] [address] 09/20/2023 12:40 PM EDT Office Visit Nutrition & Weight Management, [facility] [address] [place] [address] Cee Santizo PA-C [address] [place] [address] 12/08/2023 5:20 PM EDT Office Visit [facility] [place] [address] [address] Kinjal Reynoso PA-C [address] [facility] [place] [address] Health Maintenance Due Date Last Done Comments [...] this encounter Medical Devices Implanted Type Area Bilingual Loan Processor Device Identifier Shelf Expiration Date Model / Serial / Lot Port Implant W/8f Poly Cath - [id number] Implanted:Qty : 1 on 05/18/2023 by Juan Jose Connell, DO at [facility] Right: Chest CR BARD : [employer]HER[employer] [id number] 11/18/2024 [id number] / / [id number] documented as of this encounter Advance Directives [...] patient have Health Care Power of Linux Server Engineer? No Full Code 07/18/2021 7:04 AM 08/03/2021 4:12 PM This order reflects the patients wishes and were consensually agreed upon. Question Answer Comments Discussion of Advance Directives occurred with: Not Discussed Care Teams Compensation Programs Manager Relationship Specialty Start Date End Date Kinjal Reynoso PA-C [address] [place] [address] [address] PCP - General Physician Chemical Etch Operator 11/05/22 documented as of this encounter
--- OUTSIDE RECORDS SUMMARY | 2023-08-07 19:25 | External Medical Summary | Summary of Care ---
Author Name Unknown Organization [facility] Address [address] [place] [address] Phone [phone] Care Team Providers Care Lawn And Garden Technician Name Role Phone Kinjal Reynoso PA-C Primary Care Provider [phone] Reason for Visit * Reason Onset Date Comments Med Request 07/12/2023 Encounter Details Date Type Department Care Team (Late st Contact Info) Description 07/12/[address] [facility] [address] [facility] [place] [address] Kinjal Reynoso PA-C [address] [facility] [place] [address] Med Request Allergies Active Allergy Reactions Criticality Noted Date [...] OPIOID OVERDOSE - SEEK IMMEDIATE MEDICAL ATTENTION. [email or web address] 2 Each 3 3 Active Peptamen 1.5 Oral Liquid Administer 1000 mL daily, as directed through J Tube via feeding pump 56541 mL 11 3 Active Lansoprazole 15 MG [...] encounter Miscellaneous Notes * Telephone Encounter - Joby Chavez OSA - 07/12/2023 2:54 PM EST Patient has been notified of the message. Patient has no further questions. * Telephone Encounter - Kinjal Reynoso PA-C - 07/12/2023 12:41 PM EST PDMP reviewed and consistent. Refill sent for 10mg every 8 hours for 7 days. See refill encounter. Pt to call in next Wednesday for refill. Pt sent [employer] message. * Telephone Encounter - Shell Angelo OSA - 07/12/2023 12:12 PM EST Pt is calling back in and stating that she is in need of her medication and that she only has her rental car until tonight at 5 and wont have anyway to sheepskin pickler the medication after that. * Telephone Encounter - Shania Poe PHARM Tech - 07/12/2023 10:51 AM EST Patient is calling because she needs refills for Oxycodone HCI 10mg. Pt stating she is weaning off medication and new directions need to state "Take 1 Tablet by mouth every 8 hours as needed for Pain". Please clarify the directions for this medication and send a new prescription to [facility] . Pt is asking for high priority due to being out of medication and transportation Thank you, Star Poe, Post Closer Shop Mechanic [facility] (Formerly [facility]) 07/12/2023,10:55 AM documented in this encounter Plan of Treatment Upcoming Encounters Date Type Department Care Team (Late st Contact Info) Description 07/15/2023 8:40 AM EST Office Visit [facility] [address] [phone] Kinjal Reynoso PA-C [address] [place] [address] [address] 08/20/2023 1:50 PM EST Telemedicine Nutrition & Weight Management, [facility] [address] [place] [address] Kaity Yap RDN [address] [place] [address] 09/20/2023 12:40 PM EDT Office Visit Nutrition & Weight Management, [facility] [address] [place] [address] Cee Santizo PA-C [address] [place] [address] Health Maintenance Due Date Last Done Comments [...] this encounter Medical Devices Implanted Type Area Hand Cloth Cutter Device Identifier Shelf Expiration Date Model / Serial / Lot Port Implant W/8f Poly Cath - [id number] Implanted:Qty : 1 on 05/18/2023 by [facility] Right: Chest CR BARD : [employer]HER[employer] [id number] 11/18/2024 [id number] / / [id number] documented as of this encounter Visit Diagnoses [...] the patient have Health Care Power of [place]ophead Sewer? No Full Code 07/18/2021 7:04 AM 08/03/2021 4:12 PM This order reflects the patients wishes and were consensually agreed upon. Question Answer Comments Discussion of Advance Directives occurred with: Not Discussed Care Teams Lawn And Garden Technician Relationship Specialty Start Date End Date Kinjal Reynoso PA-C [address] [place] [address] [address] PCP - General Physician Director Marketing Analytics 11/05/22 documented as of this encounter
--- OUTSIDE RECORDS SUMMARY | 2023-08-07 19:26 | External Medical Summary | Summary of Care ---
Author Name Unknown Organization [facility] Address [address] [place] [address] Phone [phone] Care Team Providers Care Auto Body Painter Name Role Phone Edgardo Kinjal Britt PA-C Primary Care Provider [phone] Reason for Visit * Reason Comments Abdominal Pain * Auth/Cert Specialty Diagnoses / Procedures Referred By Contdulce t Referred To Contact Referral ID Status Reason Start Date Expiration Date Visits Re quested Visits Authorized [id number] Encounter Details Date Type Department Care Team (Latest Contact Info) Description 07/06/2023 10:00 PM EST - 07/08/2023 5:11 PM EST Hospital Encounter 4B [facility] 4th Floor [address] [place] [address] Sandy Slaughter, DO [address] [place], [place] [id number] Rangel Jaimes, DO 400 [facility] [place] [address] Discharge Disposition: Home - Self Care Allergies [...] as of this encounter (statuses as of 07/09/2023) Medications Medication Sig Dispensed Refills Start Date End Date Status Norethindrone Acetate 5 MG Oral Tablet Take 1 Tablet by mouth in the morning. 0 11/19/2022 Active Acetaminophen 325 MG Oral Tablet (Tylenol) 2 Tablets. 0 03/25/2023 Active Naloxone HCl 4 MG/0.1ML Nasal Liquid (Narcan Nasal)Indicatio ns:Chronic pelvic pain in female,MEDICATI ON USE AGREEMENT,Chron ic abdominal pain ADMINISTER 1 SPRAY INTO 1 NOSTRIL FOR SUSPECTED OPIOID OVERDOSE - SEEK IMMEDIATE MEDICAL ATTENTION. [email or web address] 2 Each 3 03/31/2023 Active Peptamen 1.5 Oral Liquid Administer 1000 mL daily, as directed through J Tube via feeding pump 22044 mL 11 04/12/2023 Active Lansoprazole 15 MG [...] Capsule before bedtime. 90 Capsule 0 06/14/2023 Active Promethazine HCl 25 MG Oral Tablet (Phenergan) Take 1 Tablet by mouth every 6 hours as needed for Nausea for up to 90 doses. Crush and mix with water then give through jejunostomy tube, then flush with at least 20 ml of water, use one-half tablet if it feels too strong. 90 Tablet 0 06/14/2023 Active oxyCODONE HCl 10 MG Oral Tablet (Roxicodone)Ind ications:Chroni c abdominal pain,Chronic female pelvic pain Take 1 Tablet by mouth every 6 hours as needed for Pain, Severe or Pain, Moderate. Continuation of Care. 28 Tablet 0 07/04/2023 Active Ciprofloxacin HCl 500 MG Oral Tablet (Cipro) Take 1 Tablet by mouth in the morning and 1 Tablet before bedtime - do all this for 10 days. 20 Tablet 0 06/16/2023 Discontinued documented as of this encounter (statuses as of 07/09/2023) Active Problems Problem Noted Date Diagnosed Date [...] as of this encounter (statuses as of 07/09/2023) Resolved Problems Problem Noted Date Diagnosed Date [...] as of this encounter (statuses as of 07/09/2023) Immunizations Name Administration Dates Next Due DTaP [...] Sign Reading Time Taken Comments Blood Pressure 119/71 07/08/2023 3:00 PM EST Pulse 79 07/08/2023 3:00 PM EST Temperature 36.4 C (97.5 F) 07/08/2023 3:00 PM ES T Respiratory Rate 18 07/08/2023 3:00 PM EST Oxygen Saturation 100% 07/08/2023 3:00 PM EST Inhaled Oxygen Concentration - - Weight 74.4 kg (164 lb) 07/08/2023 6:00 AM EST Height 157.5 cm (5' 2") 07/07/2023 3:58 AM EST Body Mass Index 30 07/07/2023 3:58 AM EST documented in this [...] 07/07/2023 documented as of this encounter Discharge Summaries * Rangel Jaimes, DO - 07/08/2023 3:14 PM EST [address] [address] Admission Date: 07/06/2023 Discharge Date: 07/08/2023 RECOMMENDED TO DO FOR NEXT PROVIDER(S): Routine follow up at [facility] REASON(S) FOR MEDICATION CHANGE(S): No changes DISPOSITION ON DISCHARGE: home Active Hospital Problems Diagnosis *Principal Diagnosis - Malfunction of jejunostomy tube (HCC) Gastroparesis Chronic abdominal pain Acute abdominal pain Gastroesophageal reflux disease with esophagitis without hemorrhage Resolved Hospital Problems No resolved problems to display. ADMISSION HISTORY & PHYSICAL EXAM (focused): Per admit H&P This is a 22 yo woman with history as below, notable for gastroparesis and hence has feeding done though j-tube. She came overnight with complaint of new abdominal pain near her J tube and leaking during feedings. She underwent ct abdomen which showed that j tube balloon is inflated within the abdominal wall, rasing concern over improperly positioned j-tube. Case was discussed with surgery, who requested admission to medicine and consult to IR for j tube replacement. Patient denies fever or chills. No dyspnea. She had nausea throughout the day but denies vomiting. No diarrhea. BP: 131 mmHg/81 mmHg (07/07/23199) Pulse: 89 (07/07/23199) Temp: 36 C (07/06/232102) Resp: 16 (07/07/23199) SpO2: 99 % (07/06/232102) Constitutional: no acute distress HEENT: normal: normocephalic, atraumatic Eyes: sclera and conjunctiva normal Neck: supple CV: normal rate Chest: normal respiratory effort, lungs clear to auscultation. There is a port in right upper chest. Abdomen: mildly distended abdomen; diffuse tenderness Extremities: no edema Skin: warm, dry, intact: Neuro: alert, oriented to person, place, non-focal HOSPITAL COURSE (focused): Patient came in secondary to malfunctioning J-tube, she would to stay 2 days for her jejunostomy tube to be replaced by Interventional Radiology today. She is ready for discharge and wants to go home. Operations & Procedures: Jejunostomy tube replacement Complications: none significant Significant Lab and Imaging Results: As mentioned above Results Pending at Discharge: Lab Results Pending at Discharge: CBC WITH WBC DIFFERENTIAL Routine COMPREHENSIVE METABOLIC PANEL Routine MEDICATION UPDATES AT DISCHARGE CONTINUE taking these medications INSTRUCTIONS Gabapentin 300 MG Capsule Commonly known as: Neurontin Notes to patient: Used to treat painful nerve diseases and to help control certain kinds of seizures Take 1 Capsule by mouth in the morning and 1 Capsule at noon and 1 Capsule before bedtime. GNP ClearLax 17 GM/SCOOP powder Generic drug: Polyethylene Glycol 3350 Notes to patient: Used to treat constipation Stir and dissolve 17 g (measuring line inisde of cap) in 4 to 8 ounces of any liquid and adminsiterinto Gastric Tube in the morning and repeat same steps before bedtime. high calorie peptide-based liquid Administer 1000 mL daily, as directed through J Tube via feeding pump Lidocaine 5 % Commonly known as: Lidoderm Notes to patient: Used to ease pain Place 1 patch to skin over 12 hours every 24 hours Remove patch after 12 hours.. naloxone 4 MG/0.1ML Liqd Commonly known as: Narcan Nasal Notes to patient: Used to avoid side effects from some drugs and to treat some overdoses ADMINISTER 1 SPRAY INTO 1 NOSTRIL FOR SUSPECTED OPIOID OVERDOSE - SEEK IMMEDIATE MEDICAL ATTENTION.[email or web address] oxyCODONE 10 MG Tablet Commonly known as: Roxicodone Notes to patient: Used to ease pain Take 1 Tablet by mouth every 6 hours as needed for Pain, Severe or Pain, Moderate. Continuation of Care. Prevacid 15 MG Cpdr Generic drug: lansoprazole DR Notes to patient: Used to treat or prevent GI (gastrointestinal) ulcers, gastroesophageal reflux (GERD, acid reflux), and heartburn 2 Capsules. promethazine 25 MG Tablet Commonly known as: Phenergan Notes to patient: Used to ease allergy signs, help motion sickness, ease pain, and prevent nausea and vomiting Take 1 Tablet by mouth every 6 hours as needed for Nausea for up to 90 doses. Crush and mix with water then give through jejunostomy tube, then flush with at least 20 ml of water, use one-half tabletif it feels too strong. Tylenol 325 MG Tablet Generic drug: Acetaminophen Notes to patient: Used to ease pain and fever 2 Tablets. STOP taking these medications ciprofloxacin 500 MG Tablet Commonly known as: Cipro CONTINUE taking these medications but follow up with your Primary Care Physician (PCP). INSTRUCTIONS Norethindrone Acetate 5 MG Tablet Take 1 Tablet by mouth in the morning. SCHEDULED FOLLOW-UP: Future Appointments Appt Date/Time Provider Department 07/15/2023 8:40 AM Kinjal Reynoso PA-C [facility] 08/20/2023 1:50 PM Kaity Yap RDN Nutrition & Weight Management, [facility] 09/20/2023 12:40 PM Cee Santizo PA-C Nutrition & Weight Management, [facility] Other Information Indwelling Devices: LINES ALL Duration Implanted IV Device Right Chest 51 days Gastrostomy/Enterostomy Jejunostomy 18 Fr. LLQ <1 day Vital Signs (last recorded): Most Recent Systolic BP: 119 mmHg (07/08/23 1500) Most Recent Diastolic BP: 71 mmHg (07/08/23 1500) Pulse: 79 (07/08/23 1500) Resp: 18 (07/08/23 1500) Most Recent Temperature: 36.39 C (07/08/23 1500) Weight: 74.4 kg (164 lb) (07/08/23 0600) SpO2: 100 % (07/08/23 1500) O2 flow rate: 3 L/MIN (07/08/23 1405) Allergies: Compazine [prochlorperazine], Droperidol, Haldol [haloperidol], Hydroxyzine, Reglan [metoclopramide], and Tigan [trimethobenzamide] Activity: as tolerated Diet: age appropriate diet Code status (this admission): Full Code Discussion of adv directives occurred with - adult: Patient Condition on Discharge: stable Isolation status: None Cognition: normal HOSPITAL CONSULTS ORDERED: None REFERRING PHYSICIAN: Ref: SELF[[id number]] NO STREET ADDRESS AVAILABLE None (office) None (fax) PRIMARY CARE PROVIDER: PCP: Kinjal Reynoso PA-C [address] [place] [address] / [place] [address] (office) [phone] (fax) Note: To contact a physician responsible for this patients hospital care, please call [facility] [phone]. I spent a total of 45 minutes coordinating, documenting, and providing care for this patient excluding time spent in the performance of separately billed services. documented in this encounter Discharge Instructions * Discharge Instr - AVS* Marilu Lamas MD - 07/08/2023 12:44 PM EST Discharge Date: 07/08/2023 The information below provides you with the instructions and the list of medications you need to betaking following discharge from the hospital. If you have any questions, please ask before leaving. If you have questions after leaving, you can reach us at the numbers below. YOUR HOSPITAL PROVIDERS: Discharging Provider: Rangel Jaimes DO Provider Department: Hospital Medicine To reach this Provider Wednesday through Wednesday (8:00 AM to 4:30 PM) for any questions or test results: Call [phone] For after-hours concerns: Call [phone] and have your provider paged, or the provider cone runner for the Department of Hospital Medicine paged. Please note, the discharging provider will not be able to provide you with any medications refills.Please discuss these with your primary care provider. Worsening Symptoms: If you have new symptoms, or your symptoms get worse, please contact your Discharge Provider or Primary Care Provider (PCP). If these providers are not available, you can go to your local [facility] or Urgent Care Clinic during their business hours. In an EMERGENCY situation: Call [phone] or go to the nearest emergency room. A BRIEF SUMMARY OF YOUR HOSPITAL STAY: You came to the hospital with: complaint of Abdominal pain, nausea, leaking around J-tube Your main diagnosis at discharge was: Malpositioned Jtube Complications: none significant Inpatient test results that are pending at discharge: none Advance Directive Documented: Advance Directive Does the Patient have an Advance Directive? No YOUR FOLLOW UP APPOINTMENTS: Primary Care Provider Information: PCP: Kinjal Reynoso PA-C [facility] [address] (office) [phone] (fax) An appointment was requested with your PCP (Kinjal Reynoso PA-C) within 7 days. (Please take this form to this visit with your primary care physician.) You need the following studies in the future: None INSTRUCTIONS: Diet: Previous diet Activity: No restrictions and As tolerated Additional Instructions: - Call your primary care physician or seek medical attention if you have nausea, vomiting, diarrhea, severe pain, lightheadedness, high grade fever, chest pain.. documented in this encounter Progress Notes * Luis Finn MD - 07/08/2023 2:29 PM EST [address] [address] OUTPATIENT SURGERY DISCHARGE SUMMARY NOTE Name: Anirudh Peñaloza Location: [facility] [id number] Date: 07/08/2023 Time: 2:30 PM Surgery Date: 07/08/2023 Procedure: Procedure(s): PERCUTANEOUS REPLACE GASTROSTOMY OR CECOSTOMY TUBE WITH FLUORO Left Surgeon: Surgeon(s): Luis Finn MD Discharge Diagnosis: jejunostomy placement; jejunostomy tract recannulization After examination of this patient, I have determined she is ready for discharge to other - floor when the patient meets criteria. Discharge instructions were given to the patient. * Marilu Lamas MD - 07/07/2023 7:04 AM EST Images from the original note were not included. [facility] [id number]/D HPI: 22-year-old female with gastroparesis, jejunostomy tube status (last exchanged 1 month ago; h/o incisional site abscess) presented with nausea, left abdominal pain worsening with feedings and leaking from her J-tube site with feedings. Imaging in the ED revealed a displaced jejunostomy tube. Patient admitted for IR guided repositioning. INTERVAL HISTORY: Overnight patient has been kept NPO for displaced J-tube and a possible IR guided intervention. Patient reports having pain of 8/10 in her abdomen and nausea but no vomiting. On inquiry with the patient the J-tube was inserted at [facility] in January following which she also went into what she calls an episode of sepsis. Did not need endotracheal intubation or mechanical ventilation. Also states that the tube was changed in May at [facility]. She does state eating some meals orally but very little. Objective Physical Exam Most Recent Vital Signs: BP: 115 mmHg/70 mmHg (07/07/23 1118) Pulse: 73 (07/07/23 1118) Temp: 36.5 C (07/07/23 1118) Resp: 18 (07/07/23 1118) SpO2: 100 % (07/07/23 1118) Physical Exam Vitals and nursing note reviewed. HENT: Head: Normocephalic and atraumatic. Mouth/Throat: Mouth: Mucous membranes are moist. Cardiovascular: Rate and Rhythm: Normal rate and regular rhythm. Heart sounds: Normal heart sounds. No murmur heard. Pulmonary: Effort: Pulmonary effort is normal. Breath sounds: Normal breath sounds. No wheezing or rales. Abdominal: Palpations: Abdomen is soft. Tenderness: There is generalized abdominal tenderness. Comments: J-tube++; Tenderness around the tube++; No obvious erythema, oozing noticed. Skin: General: Skin is warm and dry. Capillary Refill: Capillary refill takes less than 2 seconds. Neurological: General: No focal deficit present. Mental Status: She is alert. Psychiatric: Mood and Affect: Mood normal. Gastrostomy/Enterostomy Jejunostomy LLQ (Active) Number of days: 138 Implanted IV Device Right Chest (Active) Number of days: 50 STUDIES: Encounter Orders Labs and other studies reviewed with pertinent findings noted below: Lab results within last 7 days (see chart for full results) Units 07/07/23 1027 07/06/23 2255 Sodium mmol/L 139 138 Potassium mmol/L 3.9 3.7 Chloride mmol/L 105 102 CO2 mmol/L 25 25 BUN mg/dL 5* 7 Creatinine mg/dL 0.6 0.7 Lab results within last 7 days (see chart for full results) Units 07/07/23 1027 07/06/23 2255 HGB g/dL 11.3* 12.0 HCT % 32.8* 34.1* WBC K/uL 7.77 7.20 PLT K/uL 232 245 Neutrophils % % -- 52.7 Monocytes % % -- 8.9 Eosinophils % % -- 1.4 Lab results within last 7 days (see chart for full results) Units 07/06/23 2255 Lactate mmol/L 0.7 XR GI TUBE EVAL WITH CONTRAST INJECTION Result Date: 07/07/2023 IMPRESSION: Contrast injected through the jejunostomy tube appears to be opacifying loops of small bowel. THIS DOCUMENT HAS BEEN ELECTRONICALLY SIGNED BY NANCY LAZO MD CT ABD/PELVIS W IV CONTRAST - WO ORAL CONTRAST Addendum Date: 07/07/2023 THIS REPORT CONTAINS FINDINGS THAT MAY BE CRITICAL TO PATIENT CARE. The findings were verbally communicated via telephone conference at 12:01 AM EST on 07/07/2023 with SANDY SLAUGHTER. The findings were acknowledged and understood. THIS DOCUMENT HAS BEEN ELECTRONICALLY SIGNED BY NANCY LAZO MD Result Date: 07/07/2023 IMPRESSION: 1. Jejunostomy tube with the balloon appearing to be associated with or inflated in theabdominal wall. Appearance suggest that the tube is not be well positioned and may be outside of bowel. Recommend clinical correlation and repositioning if necessary. 2. Mild stranding and wall thickening associated with loops of bowel at the tip of the jejunostomy tube . 3. Mild stranding and scarring of subcutaneous tissue superior to the umbilicus. 4. Mesenteric adenitis 5. Nonspecific free pelvic fluid. THIS DOCUMENT HAS BEEN ELECTRONICALLY SIGNED BY NANCY LAZO MD Assessment and Plan IMPRESSION : Principal Problem: Malfunction of jejunostomy tube (HCC) Active Problems: Gastroesophageal reflux disease with esophagitis without hemorrhage Acute abdominal pain Chronic abdominal pain Gastroparesis Resolved Problems: * No resolved hospital problems. * DIFFERENTIAL AND PLAN: 22-year-old female with gastroparesis, jejunostomy tube status, h/o abdominal wall cellulitis presented with nausea, left abdominal pain worsening with feedings and leaking from her J-tube site due to displaced/malpositioned J-tube. Vital signs and labs are stable at this time. Will monitor for symptoms and signs of Peritoneal infection. Displaced/malpositioned J-tube - Admit to telemetry - Vitals Q shift/pulse oximetry - IO charting - CBC, BMP, Mag, Phos coming morning - NPO after midnight; interventional Radiology has been consulted; scheduled for J-tube replacementtomorrow. - Iv morphine for pain control - Zofran iv prn - Protonix iv for gerd. - Isolyte @ of 125 mL/hr when NPO - CBC, BMP coming morning PHARMACOLOGIC VTE PROPHYLAXIS: This patient does not have an active medication from one of the medication groupers. CODE STATUS: Full Code EXPECTED DISCHARGE DATE: No information available Patient was discussed with Dr Fiona DO. Associated attestation - Rangel Jaimes DO - 07/07/2023 12:13 PM EST I saw and evaluated the patient today. I have reviewed the trainee note and agree. A total of 75 minutes was spent providing care for this patient on the unit/floor. More than half of the time was spent counseling and coordinating care for the patient. Assessment and Plan ROS: No Nausea, No Vomiting, No Diarrhea, No Fever, No Chills, No Chest Pain, No SOB, No PATEL, No Cough, No Sputum, No Melena, No Hematuria, No Abd Pain, No Headache, No Visual Changes, No Weight Loss PHYSICAL EXAMINATION: Gen: AAO x 3 NAD Afeb, Pleasant HEENT: NCAT, PERRLA, EOMI, Anicteric Sclera, No Pharyngeal Erythema Neck: Supple wo JVD or Adenopathy, No Bruit Lungs:CTAB No RRW Chest: No S4, +S1/S2, No S4, No Murmurs, No Rubs, No Gallops, No Ectopy Abd: Soft Tender, +J Tube, Non Distended, BS+, No HSM, No Rebound, No Rigidity, No Guarding Ext: No CCE Musc: FROM x 4 Skin: Warm, Dry, Intact without rashes Neuro: Non focal, negotiator sales intact, DTR/Motor/Sensory and Strength all WNL Psych: Normal documented in this encounter H&P Notes * Luis Finn MD - 07/08/2023 1:03 PM EST HISTORY & PHYSICAL - Interventional Radiology Service [facility] [place] [address] Name: Anirudh Peñaloza Location: [facility]/[place] Date: 07/08/2023 Time: 1:04 PM CHIEF COMPLAINT: Malpositioned jejunostomy HISTORY OF PRESENT ILLNESS: Surgically placed jejunostomy. Pain on using tube x 1 week. Pt came in. CT suggests malpositioned tube. Tube injected in ER with pain. Past Medical History: Diagnosis Date Abdominal pain Asthma, exercise induced Endometriosis determined by laparoscopy 11/16/2017 Hx of fall age 5 cut left eyebrow: sutures INFORMATION several concussions Jejunostomy tube in situ (HCC) S/P laparoscopic appendectomy 04/30/2021 S/P laparoscopic hysterectomy 04/30/2021 with bilateral salpingectomy Severe protein-energy malnutrition (HCC) 07/25/2021 Past Surgical History: Procedure Laterality Date APPENDECTOMY W/OTHER PROCEDURE 04/30/2021 COLONOSCOPY, DIAGNOSTIC (RECTUM) N/A 08/14/2021 poor prep/normal/COLONOSCOPY FLEXIBLE PROXIMAL DIAGNOSTIC performed by Jerardo Erwin MD at ENDOSCOPY [facility] EGD, FLEXIBLE, DIAGNOSTIC N/A 07/21/2021 LA grade A esophagitis/multiple linear fundus of stomach/stripes of erythema in antrum/sludge duodenum/biopsies normal/ESOPHAGOGASTRODUODENOSCOPY (EGD), FLEXIBLE, TRANSORAL, DIAGNOSTIC performed by Eulalio Suarez MD at OR [facility] FLUORO GUIDED NEEDLE PLACEMENT N/A 07/31/2022 FLUOROSCOPIC GUIDANCE FOR NEEDLE PLACEMENT performed by Fredy Denton DO at OR [facility] FLUORO GUIDED NEEDLE PLACEMENT N/A 08/04/2022 FLUOROSCOPIC GUIDANCE FOR NEEDLE PLACEMENT performed by Fredy Denton DO at OR [facility] INJ, ANESTH;SUP HYPOGAS PLEX N/A 07/24/2021 INJECTION ANESTHETIC SYMPATHEITC NERVE SUPERIOR HYPOGASTRIC PLEXUS performed by Tk Aden MD at OR [facility] INSER TUNN ACC DEV;5 YRS/OLDER Right 05/18/2023 INSERT TUNNELED CENTRAL VENOUS ACCESS WITH SUBQ PORT performed by Juan Jose Connell DO at OR [facility] IR TUBE REPLACEMENT GASTROSTOMY PERCUTANEOUS OR CECOSTOMY Left 06/02/2023 PERCUTANEOUS REPLACE GASTROSTOMY OR CECOSTOMY TUBE WITH FLUORO performed by Juan Jose Connell DO at OR [facility] LAP;W/HYSTERECTOMY 04/30/2021 with BS for endometriosis LAPAROSCOPY DIAGNOSTIC N/A 11/16/2017 LAPAROSCOPY DIAGNOSTIC performed by Josep Garcia MD at OR [facility] Social History Socioeconomic History Marital status: Single Spouse name: Not on file Number of children: Not on file Years of education: Not on file Highest education level: Not on file Occupational History Not on file Tobacco Use Smoking status: Never Passive exposure: Never Smokeless tobacco: Never Vaping Use Vaping Use: Every day Substances: Nicotine, Flavoring Devices: Pre-filled pod Substance and Sexual Activity Alcohol use: Not Currently Comment: occasional Drug use: Not Currently Frequency: 7.0 times per week Comment: medical, within past month Sexual activity: Not on file Other Topics Concern Not on file Social History Narrative Pt lives with his mother, father, and sister. He always uses a seat belt. Social Determinants of Health Financial Resource Strain: Not on file Food Insecurity: No Food Insecurity (08/14/2022) Hunger Vital Sign Worried About Running Out of Food in the Last Year: Never true Ran Out of Food in the Last Year: Never true Transportation Needs: Not on file Physical Activity: Not on file Stress: Not on file Social Connections: Not on file Intimate Partner Violence: Not on file Housing Stability: Not on file Family History Problem Relation Age of Onset Migraines Mother Irritable Bowel Syndrome Mother GI problems Father Ulcer No Known Problems Sister No Known Problems Brother Hypertension Grandmother (Maternal) Thyroid Disorder Grandmother (Paternal) Other (othe) Aunt (Maternal) Endometriosis Review of patient's allergies indicates: Allergen Reactions Compazine [Prochlorperazine] Psych complications Gets very agitated Droperidol Other (Please comment) Feeling like ants are all over me Haldol [Haloperidol] Other (Please comment) Restless, "feels like ants are all over me" Hydroxyzine Other (Please comment) "restless legs" Reglan [Metoclopramide] Psych complications Gets very agitated Tigan [Trimethobenzamide] Bad reaction , patient doesn't remember the reaction Current Facility-Administered Medications Medication Dose Route Frequency Provider Last Rate Last Admin [COMPLETED] Acetaminophen (Ofirmev) inj 1,000 mg 1,000 mg Intravenous Q8H Chris Busby PA-C Stopped at 07/08/23 0600 isolyte-S infusion Intravenous Continuous Sandy Slaughter DO 125 mL/hr at 07/08/23 0641 Rate Verifyat 07/08/23 0641 ondansetron (Zofran) inj 4 mg 4 mg IV Push Q6H PRN Chris Busby PA-C 4 mg at 07/08/23 0425 oxyCODONE (Roxicodone) oral syrup 10 mg 10 mg Oral Q6H PRN Marilu Lamas MD 10 mg at 07/08/23 1123 Pantoprazole (Protonix) inj 40 mg 40 mg IV Push Q12H Chris Busby PA-C 40 mg at 07/08/23 0941 sodium chloride 0.9 % flush/inj 3 mL 3 mL IV Push PRN Chris Busby PA-C REVIEW OF SYSTEMS: Constitutional: (-) fever chills sweats or weight loss Cardiovascular: (-) negative: no chest pain, dyspnea, syncope, or palpitations Pulmonary: (-) negative: no cough, wheezing, or shortness of breath Abdominal/GI: (+) abdominal pain and (+) LUQ pain largely lateral and cephalad to jejunostomy site.Right side nontender OBJECTIVE: BP 118/73 | Pulse 84 | Temp 36.5 C (97.7 F) (Temporal Artery) | Resp 15 | Ht 1.575 m (5' 2") | Wt 74.4 kg (164 lb) | LMP (LMP Unknown) | SpO2 97% | BMI 30.00 kg/m | BSA 1.8 m PHYSICAL EXAM: Constitutional: no acute distress CV: normal rate and rhythm, no murmur, gallops or rub Chest: normal respiratory effort, lungs clear to auscultation and percussion Abdomen: soft, normal bowel sounds, left sided pain radiating to left ribs. Tender to palpation. Right side without pain LABS: CBC Results: PT INR Results: Results for orders placed or performed in visit on 12/18/21 PT INR Result Value Ref Range Prothrombin Time 12.6 11.5 - 14.6 seconds INR 0.92 0.84 - 1.14 Results for orders placed or performed in visit on 11/28/21 PT INR Result Value Ref Range Prothrombin Time 13.2 11.5 - 14.6 seconds INR 0.98 0.84 - 1.14 BUN Results: Lab Results Component Value Date/Time BUN - [facility] 6 07/08/2023 07:39 AM BUN - [facility] 5 (L) 07/07/2023 10:27 AM BUN - [facility] 7 07/06/2023 10:55 PM BUN - [facility] 9 06/10/2020 11:01 AM BUN - [facility] 10 03/29/2020 02:40 PM BUN - [facility] 9 08/17/2019 10:50 AM Creatinine Results: Lab Results Component Value Date/Time CREATININE - [facility] 0.6 07/08/2023 07:39 AM CREATININE - [facility] 0.6 07/07/2023 10:27 AM CREATININE - [facility] 0.7 07/06/2023 10:55 PM CREATININE - [facility] 0.8 06/10/2020 11:01 AM CREATININE - [facility] 0.7 03/29/2020 02:40 PM CREATININE - [facility] 0.7 08/17/2019 10:50 AM CREATININE DU - [facility] 272 03/29/2023 11:25 AM CREATININE DU - [facility] 361 11/05/2022 11:51 AM CREATININE DU - [facility] 334 09/28/2022 12:17 PM CREATININE-OUTSIDE LAB 0.69 03/21/2023 12:00 AM CREATININE-OUTSIDE LAB 0.50 02/24/2023 12:00 AM Potassium Results: Lab Results Component Value Date/Time POTASSIUM - [facility] 3.8 07/08/2023 07:39 AM POTASSIUM - [facility] 3.9 07/07/2023 10:27 AM POTASSIUM - [facility] 3.7 07/06/2023 10:55 PM POTASSIUM - [facility] 3.5 06/10/2020 11:01 AM POTASSIUM - [facility] 3.9 03/29/2020 02:40 PM POTASSIUM - [facility] 4.0 08/17/2019 10:50 AM POTASSIUM-OUTSIDE LAB 3.9 03/21/2023 12:00 AM POTASSIUM-OUTSIDE LAB 4.3 02/24/2023 12:00 AM POTASSIUM-OUTSIDE LAB 3.4 (L) 01/04/2021 02:25 AM INFORMED CONSENT: Yes PRE-SEDATION ASSESSMENT IMPRESSION/PLAN: Jejunostomy tract recannulization & jejunostomy placement Luis Finn MD * Ricardo Sorto MD - 07/07/2023 3:10 AM EST Images from the original note were not included. [facility] PRESENTING PROBLEM: abdominal pain, fluid leaking from j tube HPI: This is a 22 yo woman with history as below, notable for gastroparesis and hence has feeding done though j-tube. She came overnight with complaint of new abdominal pain near her J tube and leaking during feedings. She underwent ct abdomen which showed that j tube balloon is inflated within theabdominal wall, rasing concern over improperly positioned j-tube. Case was discussed with surgery, who requested admission to medicine and consult to IR for j tube replacement. Patient denies fever or chills. No dyspnea. She had nausea throughout the day but denies vomiting. No diarrhea. ROS: see hpi for pertinent ros; 10 systems reviewed an otherwise negative. Subjective Patient's past history, medications, and allergies were reviewed. Objective Physical Exam Most Recent Vital Signs: BP: 131 mmHg/81 mmHg (07/07/23199) Pulse: 89 (07/07/23199) Temp: 36 C (07/06/232102) Resp: 16 (07/07/23199) SpO2: 99 % (07/06/232102) Constitutional: no acute distress HEENT: normal: normocephalic, atraumatic Eyes: sclera and conjunctiva normal Neck: supple CV: normal rate Chest: normal respiratory effort, lungs clear to auscultation. There is a port in right upper chest. Abdomen: mildly distended abdomen; diffuse tenderness Extremities: no edema Skin: warm, dry, intact: Neuro: alert, oriented to person, place, non-focal Implanted IV Device Right Chest (Active) Number of days: 50 STUDIES: Encounter Orders Labs and other studies reviewed with pertinent findings noted below: Results for orders placed or performed during the hospital encounter of 07/06/23 BASIC METABOLIC PANEL Result Value Ref Range BUN 7 6 - 20 mg/dL Creatinine 0.7 0.5 - 1.0 mg/dL Estimated Glomerular Filtration Rate >90 >=60 mL/min Sodium 138 135 - 146 mmol/L Potassium 3.7 3.5 - 5.1 mmol/L Chloride 102 98 - 107 mmol/L CO2 25 22 - 32 mmol/L Anion Gap 11 7 - 15 mmol/L Glucose 123 (H) 70 - 120 mg/dL Calcium 8.7 8.4 - 10.2 mg/dL LIPASE Result Value Ref Range Lipase 19 13 - 60 U/L LACTATE WITH REFLEX IF ABNORMAL Result Value Ref Range Lactate 0.7 0.4 - 2.0 mmol/L BETA-HCG, QUANTITATIVE Result Value Ref Range Beta-HCG, Quantitative <0.1 <=1.0 mIU/mL URINALYSIS, REFLEX TO MICROSCOPIC Result Value Ref Range Color, Urine Yellow Light Yellow, Yellow, Dark Yellow Clarity, Urine Clear Clear Glucose, Urine Negative Negative mg/dL Bilirubin, Urine Negative Negative Ketone, Urine Negative Negative mg/dL Specific Rowley, Urine 1.014 1.003 - 1.030 Blood, Urine Negative Negative pH, Urine 7.5 5.0 - 7.5 Units Protein, Urine Negative Negative mg/dL Urobilinogen, Urine 0.2 0.2, 1.0 mg/dL Nitrite, Urine Negative Negative Esterase, Urine Negative Negative Comment, Urine CBC Result Value Ref Range WBC 7.20 4.00 - 10.80 K/uL RBC 3.92 3.85 - 5.15 M/uL HGB 12.0 12.0 - 15.3 g/dL HCT 34.1 (L) 36.0 - 45.2 % MCV 87.0 81.5 - 97.5 fL MCH 30.6 27.0 - 34.0 pg MCHC 35.2 32.0 - 36.0 g/dL RDW 12.1 11.5 - 15.5 % PLT 245 140 - 400 K/uL MPV 10.4 6.6 - 11.1 fL nRBCs 0 <=0 /100 WBCs DIFFERENTIAL, AUTOMATED Result Value Ref Range WBC 7.20 4.00 - 10.80 K/uL Neutrophils % 52.7 40.0 - 75.0 % Lymphocytes % 36.3 18.0 - 42.0 % Monocytes % 8.9 1.0 - 11.0 % Eosinophils % 1.4 0.0 - 6.0 % Basophils % 0.1 0.0 - 2.0 % Immature Granulocytes % 0.6 0.0 - 2.0 % Absolute Neutrophils 3.80 1.80 - 7.70 K/uL Absolute Lymphocytes 2.61 1.00 - 4.80 K/ul Absolute Monocytes 0.64 0.00 - 1.10 K/uL Absolute Eosinophils 0.10 0.00 - 0.70 K/uL Absolute Basophils 0.01 0.00 - 0.20 K/uL Absolute Immature Granulocytes 0.04 0.00 - 0.20 K/uL SARS-COV-2 (COVID-19), NAAT Result Value Ref Range SARS-CoV-2 (COVID-19) Result Negative Negative XR GI TUBE EVAL WITH CONTRAST INJECTION Final Result PROCEDURE INFORMATION: Exam: IR IR Contrast Injection for Evaluation via Existing Percutaneous GI tube Exam date and time: 07/07/2023 12:50 AM Age: 22 years old Clinical indication: Device placement; Additional info: Jejunostomy tube with CT concerning for balloon outside of bowel, free fluid TECHNIQUE: Imaging protocol: IR contrast injection for evaluation via existing percutaneous GI tube was performed. COMPARISON: CT ABD/PELVIS W IV CONTRAST - WO ORAL CONTRAST 07/06/2023 11:06 PM FINDINGS: Procedure summary: Contrast seen in the lumen of the jejunostomy tube. Digital loops are pacified with contrast. IMPRESSION IMPRESSION: Contrast injected through the jejunostomy tube appears to be opacifying loops of small bowel. THIS DOCUMENT HAS BEEN ELECTRONICALLY SIGNED BY NANCY LAZO MD CT ABD/PELVIS W IV CONTRAST - WO ORAL CONTRAST Final Result Addendum (preliminary) 1 of 1 THIS REPORT CONTAINS FINDINGS THAT MAY BE CRITICAL TO PATIENT CARE. The findings were verbally communicated via telephone conference at 12:01 AM EST on 07/07/2023 with SANDY SLAUGHTER. The findings were acknowledged and understood. THIS DOCUMENT HAS BEEN ELECTRONICALLY SIGNED BY NANCY LAZO MD Final PROCEDURE INFORMATION: Exam: CT Abdomen And Pelvis With Contrast Exam date and time: 07/06/2023 11:06 PM Age: 22 years old Clinical indication: Abdominal pain; Prior surgery; Surgery date: 6+ months; Surgery type: J tube; Additional info: J-tube exchange, midline incision abscess 1 month ago. Now with abdominal distention, left-sided pain, tenderness with guarding TECHNIQUE: Imaging protocol: Computed tomography of the abdomen and pelvis with contrast. Radiation optimization: All CT scans at this facility use at least one of these dose optimization techniques: automated exposure control; mA and/or kV adjustment per patient size (includes targeted exams where dose is matched to clinical indication); or iterative reconstruction. Contrast material: [id number]; Contrast volume: 100 ml; Contrast route: INTRAVENOUS (IV); COMPARISON: CT ABD/PELVIS W IV CONTRAST - WO ORAL CONTRAST 06/14/2023 1:59 PM FINDINGS: Tubes, catheters and devices: Jejunostomy tube with the balloon appearing to be associated with or inflated in the abdominal wall. Appearance suggest that the tube is not be well positioned and may be outside of bowel. Recommend clinical correlation and repositioning if necessary. Lungs: No acute abnormality. Liver: Normal. No mass. Gallbladder and bile ducts: Normal. No calcified stones. No ductal dilation. Pancreas: Normal. No ductal dilation. Spleen: Normal. No splenomegaly. Adrenal glands: Normal. No mass. Kidneys and ureters: Normal. No hydronephrosis. Stomach and bowel: There is excessive colonic stool content. Mild stranding and wall thickening associated with loops of bowel at the tip of the jejunostomy tube . There is no evidence of intestinal obstruction. There is mildly excessive colonic stool content. Appendix: No evidence of appendicitis. Intraperitoneal space: Small amount of free pelvic fluid is nonspecific but may be physiologic in the young female. Vasculature: Unremarkable. No abdominal aortic aneurysm. Lymph nodes: There are multiple nonspecific nonpathologic but prominent lymph nodes in the mesentery. There are no mesenteric lymph nodes of pathologic dimensions. Urinary bladder: Unremarkable as visualized. Reproductive: Unremarkable as visualized. Bones/joints: Unremarkable. No acute fracture. Soft tissues: Stranding in the supraumbilical subcutaneous tissue. IMPRESSION IMPRESSION: 1. Jejunostomy tube with the balloon appearing to be associated with or inflated in the abdominal wall. Appearance suggest that the tube is not be well positioned and may be outside of bowel. Recommend clinical correlation and repositioning if necessary. 2. Mild stranding and wall thickening associated with loops of bowel at the tip of the jejunostomy tube . 3. Mild stranding and scarring of subcutaneous tissue superior to the umbilicus. 4. Mesenteric adenitis 5. Nonspecific free pelvic fluid. THIS DOCUMENT HAS BEEN ELECTRONICALLY SIGNED BY NANCY LAZO MD IR GASTROINTESTINAL OSTOMY (Results Pending) Assessment and Plan IMPRESSION: Principal Problem: Malfunction of jejunostomy tube (HCC) Active Problems: Gastroesophageal reflux disease with esophagitis without hemorrhage Acute abdominal pain Chronic abdominal pain Gastroparesis Resolved Problems: * No resolved hospital problems. * DIFFERENTIAL AND PLAN: Admit to med-surg bed. NPO Iv morphine for pain control Zofran iv prn Protonix iv for gerd. -gentle hydration while npo PHARMACOLOGIC VTE PROPHYLAXIS: scd CODE STATUS: Full Code EXPECTED DISCHARGE DATE: 1-2 days or more I spent a total of 55 minutes coordinating, documenting, and providing care for this patient excluding time spent in the performance of separately billed services. documented in this encounter Nursing Notes * Gabriela Olivarez RN - 07/08/2023 5:18 PM EST Patient discharged home at 1715. Patient ambulated to exit with no assistance. All belongings sent with patient and port deaccessed by IVT before leaving. Patient A&Ox4, AVS printed and reviewed with patient, all questions answered. * Sandy Mcfarland RN - 07/08/2023 1:25 PM EST Pt condition was reassessed by Dr. Luis Finn immediately prior to start of moderate sedation and procedure. * Melany Hinson RN - 07/08/2023 11:16 AM EST 0945 - Pt resting in bed, assessment completed. C/o 6/10 LUQ adb pain and mild nausea. J tube notedto have small amount purulent drainage around site. Currently NPO. No current complaints, call bellis within reach, encouraged to ring for assistance. Will continue to monitor. 1150 - Pt transported to [facility] at this time. Report given to Tony BAUGH. 1428 - Pt back to unit from [facility]. VSS. Pt tearful and reporting 9/10 pain. Wants to go home. Provider made aware. * Ivett Rivera RN - 07/07/2023 10:53 PM EST 2200 Pt awake and cooperative with assessment, see flowsheets for complete details. Reported 8/10 Lsharp abd pain. L side of abd rounded, tender, and distended. Reported nausea. Site around J tube painful with mild drainage. Fluid in tube light green in color. Dressing intact over abd wound, smallamount on purulent drainage on gauze. Heating pad in room for pt to use. 2226 Oxycodone and Zofran administered per MAR for pain and nausea. Fluids infusing as ordered. Call lopez in reach. 0425 Oxycodone and Zofran administered per MAR. * Kaitlin Hummel SN - 07/07/2023 10:09 AM EST See the Licensed Professional's note for clinical information and recommendations. The signature ofthe Licensed Professional on this note acknowledges only the presence of the student's note within the patient record. By regulation, students' notes are for training and educational purposes only and play no part in the documentation of care or clinical treatment of patients. 0714 VS obtained. Blood pressure 99/49, primary RN aware. Assessment completed. Patient having pain7/10 on the left side of her abdomen into her flank/back. Open wound noted on mid abdomen, dressingintact. Abdomen distended and tender to palpation, left worse than right. Warming pad placed on abdomen at patient's request. Patient resting comfortably in bed, call lopez within reach. 1315 Linen change completed due to warming pad coming undone and wetting the bed. Patient then resting comfortably, call lopez within reach. * Ayanna Cohn RN - 07/07/2023 4:57 AM EST 0350: pt arrived to via wheel chair. J tube in place in LLQ. Wound noted to middle upper abdomen. Pt reported it appeared after J tube was replaced about 1 month ago and there was an abscess that opened. Wound is round, pink and moist. Pt's abdomen is tender on the left side, round/distended andfirmer on the L side compared to the R. Pt is reporting /. Morphine PRN administered per eMAR. Is olyte infusing at 125 mL/hr. Pt had her R chest port accessed in the ED. Dual Licensed Skin Assessment completed by Ayanna RN and Yamileth RN. The patient is/has a N/A Skin Breakdown (includes non blanchable erythema): Yes - Surgical/Procedural changes only. Refer above documented in this encounter OR Notes * Operative Report Brief - Luis Finn MD - 07/08/2023 2:22 PM EST PROCEDURE NOTE - Interventional Radiology [facility]-[address] [address] Name: Anirudh Peñaloza Location: [place] [id number]/ Date: 07/08/2023 Time: 2:22 PM PROCEDURE: jejunostomy tract recannulization; jejunostomy placement. GI ASST: Huma REYESNESTHESIA: conscious sedation COMPLICATIONS: none SPECIMEN: none ESTIMATED BLOOD LOSS: negligible FINDINGS: original jejunostomy malpositioned. Tract seen. Gastrostomy tube placed as jejunostomy documented in this encounter ED Notes * Sandy Slaughter DO - 07/06/2023 10:46 PM EST HISTORY OF PRESENT ILLNESS Anirudh Peñaloza is a 22 year old female who presents to the ED for evaluation of Abdominal Pain. The patient was seen at 07/06/23 1290. Abdominal Pain Review of Systems Gastrointestinal: Positive for abdominal pain. All other systems reviewed and are negative. This is a 22-year-old female, jejunostomy tube status, last exchanged 1 month ago, complicated by incisional site abscess that has now improved with treatment, presenting to emergency department withleft abdominal pain that has been worsening over the last few days. The patient states her abdomen is distended. She states the pain is worse with any movement or bumps in the car. She states that over the last 1 or 2 days, she was noted worsening of the pain with feedings. She also noted that she did have some leaking from her J-tube site with feedings, which improved when she slowed down the rate. She was not had any fevers or chills. Denies any urinary symptoms. Denies any known dislodgementof the tube. The patient's allergies, past history, and medications were reviewed. PHYSICAL EXAM Initial Vitals (see all): BP 122/72 | Pulse 98 | Resp 17 | Temp 96.8 | O2 99 %, Room Air, None | Weight 72.49 kg | Height 154.9 cm | BMI 30.19 kg/m2 Initial Pain Assessment (see all): 8 (severe pain)/10, Sharp, location: left abd ([facility] Adult Scale 0-10) Physical Exam Vitals and nursing note reviewed. Constitutional: General: She is not in acute distress. Appearance: She is well-developed. HENT: Head: Normocephalic and atraumatic. Eyes: Conjunctiva/sclera: Conjunctivae normal. Cardiovascular: Rate and Rhythm: Normal rate and regular rhythm. Heart sounds: No murmur heard. Pulmonary: Effort: Pulmonary effort is normal. No respiratory distress. Breath sounds: Normal breath sounds. Abdominal: General: There is distension. Tenderness: There is abdominal tenderness in the periumbilical area, left upper quadrant and left lower quadrant. There is guarding. Hernia: No hernia is present. Comments: Midline incision, well healing, clean, dry, intact, no surrounding erythema or warmth. G-tube site in left side of abdomen without surrounding erythema or warmth. No fluctuance. Musculoskeletal: General: No swelling. Cervical back: Neck supple. Skin: General: Skin is warm and dry. Capillary Refill: Capillary refill takes less than 2 seconds. Neurological: Mental Status: She is alert. Psychiatric: Mood and Affect: Mood normal. PROCEDURES AND TREATMENTS ED Orders | ED Results MEDICAL DECISION MAKING Nursing notes and vital signs were reviewed. Differential Diagnoses Based on my history, physical exam, and evaluation, the differential includes, but is not limited, to the following diagnoses: Bowel perforation, peritonitis, tube dislodgement, abscess, hematoma, bowel obstruction. Amount and/or Complexity of Data Reviewed Labs: ordered. Radiology: ordered. Risk Prescription drug management. Decision regarding hospitalization. This is a 22-year-old female presenting to the emergency department for left- sided abdominal pain. Vital signs normal on arrival. Physical exam as above. Patient given morphine for pain and Zofran for nausea. negative. Lipase and lactate normal. BMP and CBC without significant abnormality. Urinalysis without evidence of infection or other abnormality. CT scan of the abdomen was concerning for tube balloon in the abdominal wall, with likely only the tip of the tube in the bowel, and free fluid was also noted. I discussed patient's case with surgery, who recommended x-ray tube evaluation, which was performed at bedside. This did show contrast in the jejunum without evidence of extravasation. Patient required additional Dilaudid for pain management. She was placed on maintenance fluids. The patient was admitted to the hospitalist service for IR evaluation in the morning for tube exchange/repositioning. Patient remained stable while under my care in the emergency department. Clinical Impressions Dislodged jejunostomy tube Abdominal pain, left lower quadrant Disposition Admitted. I discussed the management of this patient with the admitting provider and I made a decision to admit the patient. Admission Order Ordered Status . 07/07/23 0244 Assign to Observation ONCE Acknowledged Sandy Slaughter * Krishna Roque RN - 07/06/2023 9:05 PM EST Left side abdominal pain. Chronic abdominal pain patient. Has had appendix and hysterectomy documented in this encounter Miscellaneous Notes * Ancillary Progress Note - Daria Delgado RN - 07/08/2023 3:35 PM EST Patient to discharge to home when medically ready. She is declining the need for any CM services. Family will transport to home. * Sedation Note - Luis Finn MD - 07/08/2023 2:24 PM EST SEDATION NOTE Indication: The patient is a(n) 22 year old female with jejunostomy. Location: left upper quadrant Sedating physician: Huma Procedure physician: Huma Procedure(s) Performed: jejunostomy tract recannulization; jejunostomy placement Sedation was accomplished using fentanyl, versed, benadryl administered . Any and all anesthetic medications were delivered under the direct supervision of a provider. Actual level of sedation: Minimal Patient tolerated procedure well. Vitals and oxygen saturations stable throughout. Adverse Outcome(s) during the procedure: None Sedation Start Time: 1326 Sedation End Time: 1415 Post Sedation Evaluation: Cardiovascular status: acceptable Level of consciousness: sleepy but arousable Airway patency: patent Distress - NAD Hydration status - well hydrated Nausea/vomiting - not present Pain Evaluation Pain Assessment Flowsheet Row Most Recent Value Pain Assessment Scale [facility] Adult Scale 0-10 Pain Score 8 (severe pain) Vital Signs: Temp: 36.5 C (97.7 F) (07/08 1155) BP: 138/95 (07/08 1405) Pulse: 80 (07/08 1405) Resp: 18 (07/08 1405) SpO2: 95 % (07/08 1405) I have personally examined the patient, prescribed the necessary medications as charted, and certify that Langconradgarett Jamila Peñaloza is recovered for safe discharge from my face to face care. * Ancillary Progress Note - Daria Delgado RN - 07/07/2023 9:39 AM EST CARE MANAGEMENT - ADULT INITIAL SCREENING [address] [address] Name: Anirudh Marino Jh Location: [address] Date: 07/07/2023 Time: 9:39 AM Discussed patient with the interdisciplinary care team. This Director [employer] performed a chart review and met with patient at bedside to complete admission screen and assessed needs for transition planning. The critical care transport nurse role and services were explained and emotional support was provided. Chief Complaint: Abdominal Pain Prior Living Arrangements What was your living situation prior to admission/observation?: Independently;Other (Comment) (withgrandparents) (07/07/23899) Living Quarters: House (07/07/23899) Number of steps to enter living quarters:: 0 (07/07/23899) Do you have serious difficulty walking or climbing stairs? (5 years old or older): No (07/07/23424) History of falling: No (07/07/23837) Prior Level of Functioning Describe the patient's ability prior to admission/observation to perform ADLs: Performs independently (07/07/23899) Describe the patient's mobility status prior to admission: Patient ambulates independently;Patient is able to sit on bedside;Patient can sit up in bed (07/07/23899) Patient uses assistive device: No (07/07/23899) Caregiver Information Patient Contacts Name Relation Home Work Mobile Latrice Whyte Significant Other [phone] HAYDENEstelitaJAYADEBBY Mother [phone] BLAKE-JAYACAR Father [phone] Risk Stratification/Psychosocial/Care Gaps Risk Stratification Psycho Social / Medical Concerns Identified: Adjustment to illness/injury (07/07/23899) [facility]: No (07/07/23899) OBRA or OPTIONS needed for placement: No (07/07/23899) Readmission Risk Score: 31.53 (07/07/23800) AM-PAC Score With Stairs : 24 (07/07/23837) Prior to Admission Services Services Prior to Admission CNC MANAGER Services (Services received within the last 30 days with exception, Psych within last two years): Durable Medical Equipment (07/07/23899) CNC MANAGER Durable Medical Equipment (DME) in home: Walker Rolling;Enteral Supplies (Infinity Pump) (07/07/23899) DME Name: [facility] (07/07/23899) [place] [employer]ging (PDA) Waiver Program: N/A (07/07/23899) CNC MANAGER Transportation (Services received within the last 30 days): Patient drives self (07/07/23899) Outpatient Director Nursery [employer]: No care team cdl driver to display Patient/Family Expectations: return to home with family support Patient is from home with grandparents in a 2 story home with no steps to enter. CNC MANAGER, patient was independent with ADLS and did not require an assistive device for ambulation. She has an Infinity Pump for enteral feeds and [facility] is her supplier. Patient is able to drive herself to appointments. Goal is for patient to return to home with family support. No needs identified at this time. If HH is needed, she prefers [facility] 24 For further screening information, please refer to the Care Management flow document. * ED Laser Machine Operator Note - Avril Lopez RN - 07/07/2023 3:29 AM EST Gave report to 4b staff * Medical Necessity - Kianna Hernández RN - 07/07/2023 2:56 AM EST AdmissionCare Guideline: Abdominal Pain, Undiagnosed, Observation Based on the indications selected for the patient, the bed status of Admit to Observation was determined to be MET The following indications were selected as present at the time of evaluation of the patient: - Patient ability to maintain hydration unclear AdmissionCare documentation entered by: Karen Daniel [facility] [employer], 27th edition, Copyright 2022 [facility] [employer] All Rights Reserved. [id number] Solely for purpose of utilization review and payment; not a diagnostic tool Criteria Review Observation status, recommend Inpatient status UTILIZATION MANAGEMENT PHYSICIAN ADVISOR REVIEW FOR MEDICAL NECESSITY DETERMINATION After review of the medical record including ED notes, attending physician notes, biztalk consultant notes,results and orders, the patient is assigned to observation status, recommend inpatient status. Change in patient status is appropriate due to the medical necessity reasons stated below. With a reasonable degree of medical certainty, the patient will medically require a hospital stay which will span2 midnights for evaluation, treatment, and close monitoring. Crossed 2 mn from ed time Pt npo and ivf IR eval pending Trinity Camacho MD * ED Laser Machine Operator Note - Toyin Zuleta RN - 07/06/2023 11:11 PM EST Patient reports that she is having L sided abdominal pain that is different than her normal abdominal pain. Abdomen rounded. Reports that she J tube was replaced and moved on 06/08. Has a healing wound on the abdomen, appears to be healing well. Denies urinary symptoms, nausea or vomiting documented in this encounter Plan of Treatment Upcoming Encounters Date Type Department Care Team (Late st Contact Info) Description 07/15/2023 8:40 AM EST Office Visit [facility] [address] [phone] Kinjal Reynoso PA-C [address] [phone] 08/20/2023 1:50 PM EST Telemedicine Nutrition & Weight Management, [facility] [address] [phone] Kaity Yap RDN [address] [phone] 09/20/2023 12:40 PM EDT Office Visit Nutrition & Weight Management, [facility] [address] [phone] Cee Santizo PA-C [address] [phone] Scheduled Orders Name Type Priority Associated Diagnoses Order Schedule IR GASTROINTESTINAL OSTOMY Medical Imaging Routine One Time for 1 Occurrences starting 07/07/2023 until 07/07/2023 Health Maintenance Due Date Last Done Comments [...] this encounter Medical Devices Implanted Type Area Garden Consultant Device Identifier Shelf Expiration Date Model / Serial / Lot Port Implant W/8f Poly Cath - [id number] Implanted:Qty : 1 on 05/18/2023 by Juan Jose Connell DO at OR [facility] Right: Chest CR BARD : PERIPHERAL VASCULAR [id number] 11/18/2024 [id number] / / [id number] documented as of this encounter Procedures Procedure Name Priority Date/Time Associated Diagnosis Comments IR INTERVENTIONAL RADIOLOGY PROCEDURE IN OR Routine 07/08/2023 2:07 PM EST DIFFERENTIAL, AUTOMATED Routine 07/08/19 7:39 AM EST COMPREHENSIVE METABOLIC PANEL Routine 07/08/2023 7:39 AM EST CBC Routine 07/08/2023 7:39 AM EST CBC Routine 07/08/2023 7:39 AM EST BASIC METABOLIC PANEL Routine 07/07/2023 10:27 AM EST CBC Routine 07/07/2023 10:27 AM EST SARS-COV-2 (COVID-19), NAAT STAT 07/07/2023 2:29 AM EST XR GI TUBE EVAL WITH CONTRAST INJECTION STAT 07/07/2023 1:[address] ABD/PELVIS W IV CONTRAST - WO ORAL CONTRAST STAT 07/06/2023 11:13 PM EST URINALYSIS, REFLEX TO MICROSCOPIC STAT 07/06/2023 11:04 PM EST LACTATE WITH REFLEX IF ABNORMAL STAT 07/06/2023 10:55 PM EST DIFFERENTIAL, AUTOMATED STAT 07/06/19 10:55 PM EST BETA-HCG, QUANTITATIVE STAT 10:55 PM EST BASIC METABOLIC PANEL STAT 07/06/2023 10:55 PM EST CBC STAT 07/06/2023 10:55 PM EST LIPASE STAT 07/06/2023 10:55 PM EST CBC STAT 07/06/2023 10:55 PM EST documented in this encounter Results * IR INTERVENTIONAL RADIOLOGY PROCEDURE IN OR (07/08/2023 2:07 PM EST) 07/08/2023 4:54 PM EST Impressions [facility] RADIOLOGY - 07/08/2023 4:51 PM EST IMPRESSION: Successful jejunostomy replacement. However, placement in antegrade versus retrograde direction could not be established.. PLAN: Flush tube with 20-30 mL of water before and after each feeding and each medication. Medications should be in liquid form if possible and if not available in liquid form they should be finely crushed, mixed in warm water and administered individually. Under-inflated balloon to reduce risk of occlusion. As such, the sutures in the bolster are critical to avoid loss of the catheter. Patient instructed by Dr. Finn to have sutures replaced if any of them fail. Routine maintenance change by IR in 6 months. Repeat procedure will need to be done under general anesthesia. At that time, it may be feasible to establish antegrade direction and possibly redirect the jejunostomy.. Narrative [facility] RADIOLOGY - 07/08/2023 4:51 PM EST PROCEDURE: Jejunostomy catheter check; jejunostomy tract recanalization; jejunostomy placement. INDICATION: Malpositioned jejunostomy. Patient presents because of a malfunctioning catheter requiring check and exchange. ATTENDING (OPERATING PHYSICIAN): Huma CONSENT: After a detailed discussion of the procedure, risks, benefits and alternative treatment options, informed consent was obtained. TIME OUT: A time out procedure was performed. The patient's identification was verified. Informed consent with agreement of procedure, site and position was obtained. All necessary equipment was available prior to procedure. CONTRAST: IV Optiray 320 COMPLICATIONS: None. ANESTHESIA: Conscious sedation [id number] start to end by Kayla Angel SEDATION TIME: N/A MEDICATIONS: See MAR PROCEDURE DESCRIPTION: The existing jejunostomy tube was injected showing that the catheter was external to the bowel but a narrow tract was seen leading to the bowel. The jejunostomy was then deflated and replaced with a Kumpe catheter which was used to traverse the tract reaching the bowel. Contrast was injected but antegrade progression of contrast could not be established. After observation of the bowel for 10-15 minutes with affective stasis of the contrast, the decision was made to replace the feeding tube with this same 18 Rwandan gastrostomy but advanced several cm confidently reaching the stomach. Over a Amplatz wire, the gastrostomy was advanced reaching the bowel. The balloon was inflated with only 3 mL dilute contrast. Contrast was injected demonstrating flow in both directions, indicating that the balloon is not occlusive. The bolster was sewn in place in 3 locations using 2 0 Ethilon. The procedure was performed by Dr. Finn FINDINGS: Malposition jejunostomy external to bowel. Track identified which was traversed reaching jejunum. Eighteen Rwandan feeding tube placed Procedure Note Luis Finn MD - 07/08/2023 PROCEDURE: Jejunostomy catheter check; jejunostomy tract recanalization; jejunostomyplacement. INDICATION: Malpositioned jejunostomy. Patient presents because of amalfunctioning catheter requiring check and exchange. ATTENDING (OPERATING PHYSICIAN): Huma CONSENT: After a detailed discussion of the procedure, risks, benefits andalternative treatment options, informed consent was obtained. TIME OUT: A time out procedure was performed. The patient's identificationwas verified. Informed consent with agreement of procedure, site andposition was obtained. All necessary equipment was available prior toprocedure. CONTRAST: IV Optiray 320 COMPLICATIONS: None. ANESTHESIA: Conscious sedation [id number] start to end by Kayla Angel SEDATION TIME: N/A MEDICATIONS: See MAR PROCEDURE DESCRIPTION: The existing jejunostomy tube was injected showingthat the catheter was external to the bowel but a narrow tract was seenleading to the bowel. The jejunostomy was then deflated and replaced witha Kumpe catheter which was used to traverse the tract reaching the bowel.Contrast was injected but antegrade progression of contrast could not beestablished. After observation of the bowel for 10-15 minutes with affective stasis ofthe contrast, the decision was made to replace the feeding tube with thissame 18 Rwandan gastrostomy but advanced several cm confidently reachingthe stomach. Over a Amplatz wire, the gastrostomy was advanced reachingthe bowel. The balloon was inflated with only 3 mL dilute contrast.Contrast was injected demonstrating flow in both directions, indicatingthat the balloon is not occlusive. The bolster was sewn in place in 3 locations using 2 0 Ethilon. The procedure was performed by Dr. Finn FINDINGS: Malposition jejunostomy external to bowel. Track identified which wastraversed reaching jejunum. Eighteen Rwandan feeding tube placed IMPRESSION IMPRESSION: Successful jejunostomy replacement. However, placement in antegradeversus retrograde direction could not be established.. PLAN: Flush tube with 20-30 mL of water before and after each feeding andeach medication. Medications should be in liquid form if possible and ifnot available in liquid form they should be finely crushed, mixed in warmwater and administered individually. Under-inflated balloon to reduce risk of occlusion. As such, the suturesin the bolster are critical to avoid loss of the catheter. Patientinstructed by Dr. Finn to have sutures replaced if any of them fail. Routine maintenance change by IR in 6 months. Repeat procedure will needto be done under general anesthesia. At that time, it may be feasible toestablish antegrade direction and possibly redirect the jejunostomy.. Luis Finn MD RAD SPECIAL PROCEDUR [facility] [employer] RADIOLOGY * DIFFERENTIAL, AUTOMATED (07/08/2023 7:39 AM EST) WBC 5.09 4.00 - 10.80 K/uL 07/08/2023 7:51 AM EST [facility] Neutrophils % 50.9 40.0 - 75.0 % 07/08/2023 7:51 AM EST [facility] Lymphocytes % 36.5 18.0 - 42.0 % 07/08/2023 7:51 AM EST [facility] Monocytes % 10.0 1.0 - 11.0 % 07/08/2023 7:51 AM EST [facility] Eosinophils % 2.2 0.0 - 6.0 % 07/08/2023 7:51 AM EST [facility] Basophils % 0.2 0.0 - 2.0 % 07/08/2023 7:51 AM EST [facility] Immature Granulocytes % 0.2 0.0 - 2.0 % 07/08/2023 7:51 AM EST [facility] Absolute Neutrophils 2.59 1.80 - 7.70 K/uL 07/08/2023 7:51 AM EST [facility] Absolute Lymphocytes 1.86 1.00 - 4.80 K/ul 07/08/2023 7:51 AM EST [facility] Absolute Monocytes 0.51 0.00 - 1.10 K/uL 07/08/2023 7:51 AM EST [facility] Absolute Eosinophils 0.11 0.00 - 0.70 K/uL 07/08/2023 7:51 AM EST [facility] Absolute Basophils 0.01 0.00 - 0.20 K/uL 07/08/2023 7:51 AM EST [facility] Absolute Immature Granulocytes 0.01 0.00 - 0.20 K/uL 07/08/2023 7:51 AM EST LABORATORY [facility] Blood Venous blood specimen / Unknown Venipuncture / Unknown 07/08/2023 7:39 AM EST 07/08/2023 7:44 AM EST Marilu Lamas MD LAB BLOOD ORDERABLES LABORATORY [address] [address] * (ABNORMAL) CBC (07/08/2023 7:39 AM EST) WBC 5.09 4.00 - 10.80 K/uL 07/08/2023 7:51 AM EST LABORATORY [facility] RBC 3.72 3.85 - 5.15 M/uL 07/08/2023 7:51 AM EST LABORATORY GL HGB 11.3(L) 12.0 - 15.3 g/dL 07/08/2023 7:51 AM EST LABORATORY [facility] HCT 31.2(L) 36.0 - 45.2 % 07/08/2023 7:51 AM EST LAB[facility]ATORY [facility] MCV 83.9 81.5 - 97.5 fL 07/08/2023 7:51 AM EST LABORATORY GL MCH 30.4 27.0 - 34.0 pg 07/08/2023 7:51 AM EST LABORATORY GL MCHC 36.2 32.0 - 36.0 g/dL 07/08/2023 7:51 AM EST LABORATORY GL RDW 12.0 11.5 - 15.5 % 07/08/2023 7:51 AM EST LABORATORY GL PLT 240 140 - 400 K/uL 07/08/2023 7:51 AM EST LABORATORY GL MPV 10.3 6.6 - 11.1 fL 07/08/2023 7:51 AM EST LABORATORY GL nRBCs 0 <=0 /100 WBCs 07/08/2023 7:51 AM EST LABORATORY GL Blood Venous blood specimen / Unknown Venipuncture / Unknown 07/08/2023 7:39 AM EST 07/08/2023 7:44 AM EST Marilu Lamas MD LAB BLOOD ORDERABLES LAB[facility]ATORY [facility] [address] [place] [address] * (ABNORMAL) COMPREHENSIVE METABOLIC PANEL (07/08/2023 7:39 AM EST) BUN 6 6 - 20 mg/dL 07/08/2023 8:15 AM EST [facility] Creatinine 0.6 0.5 - 1.0 mg/dL 07/08/2023 8:15 AM EST [facility] Estimated Glomerular Filtration Rate >90 >=60 mL/min 07/08/2023 8:15 AM EST [facility] Comment:eGFR is calculated b ased on the CKD-EPI 2020 equation Sodium 136 135 - 146 mmol/L 07/08/2023 8:15 AM EST [facility] Potassium 3.8 3.5 - 5.1 mmol/L 07/08/2023 8:15 AM EST [facility] Chloride 101 98 - 107 mmol/L 07/08/2023 8:15 AM EST [facility] CO2 25 22 - 32 mmol/L 07/08/2023 8:15 AM EST [facility] Anion Gap 10 7 - 15 mmol/L 07/08/2023 8:15 AM EST [facility] Glucose 78 70 - 120 mg/dL 07/08/2023 8:15 AM EST [facility] Albumin 3.5(L) 3.8 - 5.0 g/dL 07/08/2023 8:15 AM EST [facility] AST 12 10 - 35 U/L 07/08/2023 8:15 AM EST [facility] Alkaline Phosphatase 67 35 - 130 U/L 07/08/2023 8:15 AM EST [facility] Bilirubin, Total 0.3 <=1.2 mg/dL 07/08/2023 8:15 AM EST [facility] Calcium 8.7 8.4 - 10.2 mg/dL 07/08/2023 8:15 AM EST [facility] Protein 6.1 6.0 - 8.3 g/dL 07/08/2023 8:15 AM EST [facility] ALT 8(L) 10 - 35 U/L 07/08/2023 8:15 AM EST [facility] Blood Venous blood specimen / Unknown Venipuncture / Unknown 07/08/2023 7:39 AM EST 07/08/2023 7:44 AM EST Marilu Lamas MD LAB BLOOD ORDERABLES Performing Organization Address City/[facility]/ZIP Co de Phone Number LABORATORY [facility] [address] [place] [address] * (ABNORMAL) BASIC METABOLIC PANEL (07/07/2023 10:27 AM EST) BUN 5(L) 6 - 20 mg/dL 07/07/2023 11:02 AM EST [facility] Creatinine 0.6 0.5 - 1.0 mg/dL 07/07/2023 11:02 AM EST [facility] Estimated Glomerular Filtration Rate >90 >=60 mL/min 07/07/2023 11:02 AM EST [facility] Comment:eGFR is calculated b ased on the CKD-EPI 2020 equation Sodium 139 135 - 146 mmol/L 07/07/2023 11:02 AM EST [facility] Potassium 3.9 3.5 - 5.1 mmol/L 07/07/2023 11:02 AM EST [facility] Chloride 105 98 - 107 mmol/L 07/07/2023 11:02 AM EST [facility] CO2 25 22 - 32 mmol/L 07/07/2023 11:02 AM EST [facility] Anion Gap 9 7 - 15 mmol/L 07/07/2023 11:02 AM EST [facility] Glucose 99 70 - 120 mg/dL 07/07/2023 11:02 AM EST [facility] Calcium 8.6 8.4 - 10.2 mg/dL 07/07/2023 11:02 AM EST [facility] Blood Venous blood specimen / Unknown Venipuncture / Unknown 07/07/2023 10:27 AM EST 07/07/2023 10:40 AM EST Chris Busby PA-C LAB BLOOD ORDERABLES Performing Organization Address [facility]/ZIP Co de Phone Number LABORATORY [address] [address] * (ABNORMAL) CBC (07/07/2023 10:27 AM EST) WBC 7.77 4.00 - 10.80 K/uL 07/07/2023 10:43 AM EST LABORATORY [facility] RBC 3.87 3.85 - 5.15 M/uL 07/07/2023 10:43 AM EST LABORATORY GL HGB 11.3(L) 12.0 - 15.3 g/dL 07/07/2023 10:43 AM EST LABORATORY GL HCT 32.8(L) 36.0 - 45.2 % 07/07/2023 10:43 AM EST LABORATORY [facility] MCV 84.8 81.5 - 97.5 fL 07/07/2023 10:43 AM EST LABORATORY [facility] MCH 29.2 27.0 - 34.0 pg 07/07/2023 10:43 AM EST LABORATORY [facility] MCHC 34.5 32.0 - 36.0 g/dL 07/07/2023 10:43 AM EST LABORATORY [facility] RDW 12.2 11.5 - 15.5 % 07/07/2023 10:43 AM EST LABORATORY [facility] PLT 232 140 - 400 K/uL 07/07/2023 10:43 AM EST LABORATORY [facility] MPV 10.6 6.6 - 11.1 fL 07/07/2023 10:43 AM EST LAB[facility]ATORY [facility] nRBCs 0 <=0 /100 WBCs 07/07/2023 10:43 AM EST LAB[facility]ATORY [facility] Blood Venous blood specimen / Unknown Venipuncture / Unknown 07/07/2023 10:27 AM EST 07/07/2023 10:39 AM EST Chris Busby PA-C LAB BLOOD ORDERABLES LABORATORY [facility] [address] [place] [address] * SARS-COV-2 (COVID-19), NAAT (07/07/2023 2:29 AM EST) SARS-CoV-2 (COVID-19) Result Negative Negative 07/07/2023 3:12 AM EST LABORATORY [facility] Comment: 2019 Novel Coronavirus not detected. This express test was developed and its performance characteristics determined by [facility]. It has not been cleared or approved by the U.S. Food and Drug Administration (FDA). FDA does not require this test to go thru premarket FDA review. This test is used for clinical purposes. It should not be regarded as investigational or for research. This laboratory is certified under the Clinical Laboratory Improvement Amendments (CLIA) as qualified to perform high complexity clinical laboratory testing. This test is a nucleic acid amplification test (NAAT), a reverse transcriptase polymerase chain reaction (RT-PCR) test, or a Centers for Disease Control- acceptable equivalent. The test is performed in a high complexity Clinical Laboratory Improvement Amendments-(CLIA) certified laboratory. The test is acceptable for SARS-CoV-2 diagnosis, surveillance, and travel within the [place] and to most countries. Please check with local testing authorities about requirements before travel. The validation of bronchial specimens, tracheal aspirates, and sputum for this assay was developed and performance characteristics determined by [facility]. The validation of alternate specimen types has not been cleared or approved by the U.S. Food and Drug Administration (FDA). It has been determined that such clearance is not necessary. Upper Respiratory Mid-turbinate nasal swab / Unknown Non-blood Collection / Unknown 07/07/2023 2:29 AM EST 07/07/2023 2:37 AM EST Sandy Slaughter DO LAB MICRO - GENERAL ORDERABLES [address] [address] * XR GI TUBE EVAL WITH CONTRAST INJECTION (07/07/2023 1:10 AM EST) Anatomical Region Laterality Modality GI, Abdomen, Pelvis Digital Radi ography 07/07/2023 12:5 0 AM EST Impressions 07/07/2023 1:36 AM EST IMPRESSION: Contrast injected through the jejunostomy tube appears to be opacifying loops of small bowel. THIS DOCUMENT HAS BEEN ELECTRONICALLY SIGNED BY NANCY LAZO MD Narrative 07/07/2023 1:36 AM EST PROCEDURE INFORMATION: Exam: IR IR Contrast Injection for Evaluation via Existing Percutaneous GI tube Exam date and time: 07/07/2023 12:50 AM Age: 22 years old Clinical indication: Device placement; Additional info: Jejunostomy tube with CT concerning for balloon outside of bowel, free fluid TECHNIQUE: Imaging protocol: IR contrast injection for evaluation via existing percutaneous GI tube was performed. COMPARISON: CT ABD/PELVIS W IV CONTRAST - WO ORAL CONTRAST 07/06/2023 11:06 PM FINDINGS: Procedure summary: Contrast seen in the lumen of the jejunostomy tube. Digital loops are pacified with contrast. Procedure Note Nancy Lazo MD - 07/07/2023 PROCEDURE INFORMATION: Exam: IR IR Contrast Injection for Evaluation via Existing Percutaneous GItube Exam date and time: 07/07/2023 12:50 AM Age: 22 years old Clinical indication: Device placement; Additional info: Jejunostomy tubewith CT concerning for balloon outside of bowel, free fluid TECHNIQUE: Imaging protocol: IR contrast injection for evaluation via existing percutaneous GI tube was performed. COMPARISON: CT ABD/PELVIS W IV CONTRAST - WO ORAL CONTRAST 07/06/2023 11:06 PM FINDINGS: Procedure summary: Contrast seen in the lumen of the jejunostomy tube. Digital loops arepacified with contrast. IMPRESSION IMPRESSION: Contrast injected through the jejunostomy tube appears to be opacifyingloops of small bowel. THIS DOCUMENT HAS BEEN ELECTRONICALLY SIGNED BY NANCY LAZO MD Sandy Slaughter DO RAD FLUOROSCOPY * CT ABD/PELVIS W IV CONTRAST - WO ORAL CONTRAST (07/06/2023 11:13 PM EST) Anatomical Region Laterality Modality Body, Abdomen, Pelvis Computed T omography 07/06/2023 11:0 6 PM EST Addenda Addendum by Nancy Lazo MD on 07/07/2023 12:01 AM EST THIS REPORT CONTAINS FINDINGS THAT MAY BE CRITICAL TO PATIENT CARE. The findings were verbally communicated via telephone conference at 12:01 AM EST on 07/07/2023 with SANDY SLAUGHTER. The findings were acknowledged and understood. THIS DOCUMENT HAS BEEN ELECTRONICALLY SIGNED BY NANCY LAZO MD Impressions 07/06/2023 11:39 PM EST IMPRESSION: 1. Jejunostomy tube with the balloon appearing to be associated with or inflated in the abdominal wall. Appearance suggest that the tube is not be well positioned and may be outside of bowel. Recommend clinical correlation and repositioning if necessary. 2. Mild stranding and wall thickening associated with loops of bowel at the tip of the jejunostomy tube . 3. Mild stranding and scarring of subcutaneous tissue superior to the umbilicus. 4. Mesenteric adenitis 5. Nonspecific free pelvic fluid. THIS DOCUMENT HAS BEEN ELECTRONICALLY SIGNED BY NANCY LAZO MD Narrative 07/06/2023 11:39 PM EST PROCEDURE INFORMATION: Exam: CT Abdomen And Pelvis With Contrast Exam date and time: 07/06/2023 11:06 PM Age: 22 years old Clinical indication: Abdominal pain; Prior surgery; Surgery date: 6+ months; Surgery type: J tube; Additional info: J-tube exchange, midline incision abscess 1 month ago. Now with abdominal distention, left-sided pain, tenderness with guarding TECHNIQUE: Imaging protocol: Computed tomography of the abdomen and pelvis with contrast. Radiation optimization: All CT scans at this facility use at least one of these dose optimization techniques: automated exposure control; mA and/or kV adjustment per patient size (includes targeted exams where dose is matched to clinical indication); or iterative reconstruction. Contrast material: [id number]; Contrast volume: 100 ml; Contrast route: INTRAVENOUS (IV); COMPARISON: CT ABD/PELVIS W IV CONTRAST - WO ORAL CONTRAST 06/14/2023 1:59 PM FINDINGS: Tubes, catheters and devices: Jejunostomy tube with the balloon appearing to be associated with or inflated in the abdominal wall. Appearance suggest that the tube is not be well positioned and may be outside of bowel. Recommend clinical correlation and repositioning if necessary. Lungs: No acute abnormality. Liver: Normal. No mass. Gallbladder and bile ducts: Normal. No calcified stones. No ductal dilation. Pancreas: Normal. No ductal dilation. Spleen: Normal. No splenomegaly. Adrenal glands: Normal. No mass. Kidneys and ureters: Normal. No hydronephrosis. Stomach and bowel: There is excessive colonic stool content. Mild stranding and wall thickening associated with loops of bowel at the tip of the jejunostomy tube . There is no evidence of intestinal obstruction. There is mildly excessive colonic stool content. Appendix: No evidence of appendicitis. Intraperitoneal space: Small amount of free pelvic fluid is nonspecific but may be physiologic in the young female. Vasculature: Unremarkable. No abdominal aortic aneurysm. Lymph nodes: There are multiple nonspecific nonpathologic but prominent lymph nodes in the mesentery. There are no mesenteric lymph nodes of pathologic dimensions. Urinary bladder: Unremarkable as visualized. Reproductive: Unremarkable as visualized. Bones/joints: Unremarkable. No acute fracture. Soft tissues: Stranding in the supraumbilical subcutaneous tissue. Procedure Note Nancy Lazo MD - 07/06/2023 PROCEDURE INFORMATION: Exam: CT Abdomen And Pelvis With Contrast Exam date and time: 07/06/2023 11:06 PM Age: 22 years old Clinical indication: Abdominal pain; Prior surgery; Surgery date: 6+months; Surgery type: J tube; Additional info: J-tube exchange, midline incision abscess 1 month ago. Now with abdominal distention, left-sided pain,tenderness with guarding TECHNIQUE: Imaging protocol: Computed tomography of the abdomen and pelvis withcontrast. Radiation optimization: All CT scans at this facility use at least one ofthese dose optimization techniques: automated exposure control; mA and/or kV adjustment per patient size (includes targeted exams where dose is matchedto clinical indication); or iterative reconstruction. Contrast material: [id number]; Contrast volume: 100 ml; Contrast route: INTRAVENOUS (IV); COMPARISON: CT ABD/PELVIS W IV CONTRAST - WO ORAL CONTRAST 06/14/2023 1:59 PM FINDINGS: Tubes, catheters and devices: Jejunostomy tube with the balloon appearingto be associated with or inflated in the abdominal wall. Appearance suggest thatthe tube is not be well positioned and may be outside of bowel. Recommendclinical correlation and repositioning if necessary. Lungs: No acute abnormality. Liver: Normal. No mass. Gallbladder and bile ducts: Normal. No calcified stones. No ductaldilation. Pancreas: Normal. No ductal dilation. Spleen: Normal. No splenomegaly. Adrenal glands: Normal. No mass. Kidneys and ureters: Normal. No hydronephrosis. Stomach and bowel: There is excessive colonic stool content. Mildstranding and wall thickening associated with loops of bowel at the tip of thejejunostomy tube . There is no evidence of intestinal obstruction. There is mildly excessive colonic stool content. Appendix: No evidence of appendicitis. Intraperitoneal space: Small amount of free pelvic fluid is nonspecificbut may be physiologic in the young female. Vasculature: Unremarkable. No abdominal aortic aneurysm. Lymph nodes: There are multiple nonspecific nonpathologic but prominentlymph nodes in the mesentery. There are no mesenteric lymph nodes of pathologic dimensions. Urinary bladder: Unremarkable as visualized. Reproductive: Unremarkable as visualized. Bones/joints: Unremarkable. No acute fracture. Soft tissues: Stranding in the supraumbilical subcutaneous tissue. IMPRESSION IMPRESSION: 1. Jejunostomy tube with the balloon appearing to be associated with or inflated in the abdominal wall. Appearance suggest that the tube is not bewell positioned and may be outside of bowel. Recommend clinical correlation and repositioning if necessary. 2. Mild stranding and wall thickening associated with loops of bowel atthe tip of the jejunostomy tube . 3. Mild stranding and scarring of subcutaneous tissue superior to the umbilicus. 4. Mesenteric adenitis 5. Nonspecific free pelvic fluid. THIS DOCUMENT HAS BEEN ELECTRONICALLY SIGNED BY NANCY LAZO MD Sandy Slaughter DO RAD CT * URINALYSIS, REFLEX TO MICROSCOPIC (07/06/2023 11:04 PM EST) Color, Urine Yellow Light Yellow, Yellow, Dark Yellow 07/06/2023 11:11 PM EST [facility] Clarity, Urine Clear Clear 07/06/2023 11:11 PM EST [facility] Glucose, Urine Negative Negative mg/dL 07/06/2023 11:11 PM EST [facility] Bilirubin, Urine Negative Negative 07/06/2023 11:11 PM EST [facility] Ketone, Urine Negative Negative mg/dL 07/06/2023 11:11 PM EST [facility] Specific [place], Urine 1.014 1.003 - 1.030 07/06/2023 11:11 PM EST [facility] Blood, Urine Negative Negative 07/06/2023 11:11 PM EST [facility] pH, Urine 7.5 5.0 - 7.5 Units 07/06/2023 11:11 PM EST [facility] Protein, Urine Negative Negative mg/dL 07/06/2023 11:11 PM EST [facility] Urobilinogen, Urine 0.2 0.2, 1.0 mg/dL 07/06/2023 11:11 PM EST [facility] Nitrite, Urine Negative Negative 07/06/2023 11:11 PM EST [facility] Esterase, Urine Negative Negative 11:11 PM EST [facility] Comment, Urine 07/06/2023 11:11 PM EST [facility] Comment:Screen negative - Mi croscopic not performed. Urine Non-blood Collection / Unknown 07/06/2023 11:04 PM EST 07/06/2023 11:07 PM EST aSndy Slaughter DO LAB URINE ORDERABLES LAB[facility]AT[facility] [address] [place] [address] * DIFFERENTIAL, AUTOMATED (07/06/2023 10:55 PM EST) WBC 7.20 4.00 - 10.80 K/uL 07/06/2023 11:01 PM EST [facility] Neutrophils % 52.7 40.0 - 75.0 % 07/06/2023 11:01 PM EST [facility] Lymphocytes % 36.3 18.0 - 42.0 % 07/06/2023 11:01 PM EST LAB[facility] Monocytes % 8.9 1.0 - 11.0 % 07/06/2023 11:01 PM EST [facility] Eosinophils % 1.4 0.0 - 6.0 % 07/06/2023 11:01 PM EST [facility] Basophils % 0.1 0.0 - 2.0 % 07/06/2023 11:01 PM EST [facility] Immature Granulocytes % 0.6 0.0 - 2.0 % 07/06/2023 11:01 PM EST [facility] Absolute Neutrophils 3.80 1.80 - 7.70 K/uL 07/06/2023 11:01 PM EST LAB[facility] Absolute Lymphocytes 2.61 1.00 - 4.80 K/ul 07/06/2023 11:01 PM EST LAB[facility] Absolute Monocytes 0.64 0.00 - 1.10 K/uL 07/06/2023 11:01 PM EST [facility] Absolute Eosinophils 0.10 0.00 - 0.70 K/uL 07/06/2023 11:01 PM EST [facility] Absolute Basophils 0.01 0.00 - 0.20 K/uL 07/06/2023 11:01 PM EST LAB[facility] Absolute Immature Granulocytes 0.04 0.00 - 0.20 K/uL 07/06/2023 11:01 PM EST [facility] Blood Venous blood specimen / Unknown Venipuncture / Unknown 07/06/2023 10:55 PM EST 07/06/2023 10:58 PM EST Sandy Mitchell Carmen LOTT LAB BLOOD ORDERABLES Performing Organization Address City/[facility]/ZIP Co de Phone Number LABORATORY [facility] [address] [place] [address] * (ABNORMAL) CBC (07/06/2023 10:55 PM EST) Pathologist [facility] WBC 7.20 4.00 - 10.80 K/uL 07/06/2023 11:01 PM EST [facility] RBC 3.92 3.85 - 5.15 M/uL 07/06/2023 11:01 PM EST [facility] HGB 12.0 12.0 - 15.3 g/dL 07/06/2023 11:01 PM EST [facility] HCT 34.1(L) 36.0 - 45.2 % 07/06/2023 11:01 PM EST [facility] MCV 87.0 81.5 - 97.5 fL 07/06/2023 11:01 PM EST [facility] MCH 30.6 27.0 - 34.0 pg 07/06/2023 11:01 PM EST [facility] MCHC 35.2 32.0 - 36.0 g/dL 07/06/2023 11:01 PM EST [facility] RDW 12.1 11.5 - 15.5 % 07/06/2023 11:01 PM EST [facility] PLT 245 140 - 400 K/uL 07/06/2023 11:01 PM EST [facility] MPV 10.4 6.6 - 11.1 fL 07/06/2023 11:01 PM EST LAB[facility]ORY [facility] nRBCs 0 <=0 /100 WBCs 07/06/2023 11:01 PM EST [facility] Blood Venous blood specimen / Unknown Venipuncture / Unknown 07/06/2023 10:55 PM EST 07/06/2023 10:58 PM EST Sandy Haropavel [employer] LAB BLOOD ORDERABLES LABORATORY [address] [address] * BETA-HCG, QUANTITATIVE (07/06/2023 10:55 PM EST) [facility] Beta-HCG, Quantitative <0.1 <=1.0 mIU/mL 07/06/2023 11:31 PM EST [facility] Blood Venous blood specimen / Unknown Venipuncture / Unknown 07/06/2023 10:55 PM EST 07/06/2023 10:58 PM EST Narrative LABORATORY [facility] - 07/06/2023 11:31 PM EST hCG can serve as a screening assay for . However, early may not give a positive hCG test result. In addition, some non- women may have a hCG result slightly higher than the reference limit. Careful interpretation of the hCG with clinical history is required to determine whether the patient may be . Sandy Slaughter DO LAB BLOOD ORDERABLES Performing Organization Address [facility] de Phone Number LABORATORY [address] [address] * LACTATE WITH REFLEX IF ABNORMAL (07/06/2023 10:55 PM EST) [facility] Lactate 0.7 0.4 - 2.0 mmol/L 07/06/2023 11:24 PM EST [facility] Blood Venous blood specimen / Unknown Venipuncture / Unknown 07/06/2023 10:55 PM EST 07/06/2023 10:58 PM EST Sandy Slaughter DO LAB BLOOD ORDERABLES Performing Organization Address [facility] de Phone Number LABORATORY [address] [address] * LIPASE (07/06/2023 10:55 PM EST) [facility] Lipase 19 13 - 60 U/L 07/06/2023 11:26 PM EST [facility] Blood Venous blood specimen / Unknown Venipuncture / Unknown 07/06/2023 10:55 PM EST 07/06/2023 10:58 PM EST Sandy Slaughter DO LAB BLOOD ORDERABLES Performing Organization Address City/[facility]/ZIP Co de Phone Number LABORATORY [address] [address] * (ABNORMAL) BASIC METABOLIC PANEL (07/06/2023 10:55 PM EST) BUN 7 6 - 20 mg/dL 07/06/2023 11:26 PM EST [facility] Creatinine 0.7 0.5 - 1.0 mg/dL 07/06/2023 11:26 PM EST [facility] Estimated Glomerular Filtration Rate >90 >=60 mL/min 07/06/2023 11:26 PM EST [facility] Comment:eGFR is calculated b ased on the CKD-EPI 2020 equation Sodium 138 135 - 146 mmol/L 07/06/2023 11:26 PM EST [facility] Potassium 3.7 3.5 - 5.1 mmol/L 07/06/2023 11:26 PM EST [facility] Chloride 102 98 - 107 mmol/L 07/06/2023 11:26 PM EST [facility] CO2 25 22 - 32 mmol/L 07/06/2023 11:26 PM EST [facility] Anion Gap 11 7 - 15 mmol/L 07/06/2023 11:26 PM EST [facility] Glucose 123(H) 70 - 120 mg/dL 07/06/2023 11:26 PM EST [facility] Calcium 8.7 8.4 - 10.2 mg/dL 07/06/2023 11:26 PM EST [facility] Blood Venous blood specimen / Unknown Venipuncture / Unknown 07/06/2023 10:55 PM EST 07/06/2023 10:58 PM EST Sandy Slaughter DO LAB BLOOD ORDERABLES Performing Organization Address [facility]/ZIP Co de Phone Number LABORATORY [address] [address] documented in this encounter Visit Diagnoses Diagnosis Malfunction of jejunostomy tube (HCC)- Primary Mechanical complication of colostomy and enterostomy Dislodged jejunostomy tube Mechanical complication of colostomy and enterostomy Abdominal pain, left lower quadrant Chest pain Chest pain, unspecified Gastroparesis Gastroesophageal reflux disease with esophagitis without hemorrhage Chronic abdominal pain Abdominal pain, unspecified site Acute abdominal pain Abdominal pain, unspecified site documented in this encounter Administered Medications Inactive Administered Medications - up to 3 most recent administrations Medication Order MAR Action Action Date Dose Rate Site Acetaminophen (Ofirmev) inj 1,000 mg 1,000 mg, Intravenous, Q8H, 3 doses, First dose (after last modification) on Wed07/07/23 at 0345, Last dose on Wed07/07/23 at 2200, Administer over 15 Minutes, Administer undiluted over 15 minutes! NOTE: Maximum of 4000 mg per 24 hours of acetaminophen from all acetaminophen containing products., Indication: Patient is strictly NPO New Bag 07/07/2023 10:41 PM EST 1,000 mg 400 mL/hr New Bag 07/07/2023 3:08 PM EST 1,000 mg 400 mL/hr New Bag 07/07/2023 3:33 AM EST 1,000 mg 400 mL/hr diphenhydrAMINE (Benadryl) inj 25 mg 25 mg, IV Push, ONCE, On [place] 07/08/23 at 1445, For 1 dose Given 07/08/2023 2:05 PM EST 25 mg HYDROmorphone (Dilaudid) inj 0.5 mg 0.5 mg, IV Push, ONCE, On Wed07/07/23 at 0245, For 1 dose Given 07/07/2023 2:11 AM EST 0.5 mg Ioversol (Optiray 320) inj 100 mL 100 mL, Intravenous, ONCE, On Wed07/06/23 at 2345, For 1 dose, Radiology Medication Routing (Non-IR) Given 07/06/2023 11:45 PM EST 100 mL Ioversol (Optiray 320) inj 50 mL 50 mL, Intravenous, ONCE, On Wed07/07/23 at 0145, For 1 dose, Radiology Medication Routing (Non-IR) Given 07/07/2023 1:12 AM EST 5 mL Ioversol (Optiray 320) inj 50 mL 50 mL, Intravenous, ONCE, On Wed07/07/23 at 0145, For 1 dose, Radiology Medication Routing (Non-IR) Given 07/07/2023 1:11 AM EST 5 mL isolyte-S infusion Intravenous, at 125 mL/hr, Plasma-LYTE 148, isolyte-S, and isolyte-S pH 7.4 are considered equivalent - including for MAR scanning., CONTINUOUS, Starting on Wed07/07/23 at 0100, Until Wed07/08/23 at 2120 Restarted 07/08/2023 11:43 AM EST 125 mL/hr Restarted 07/08/2023 7:41 AM EST 125 mL/hr Rate Verify 07/08/2023 6:41 AM EST 125 mL/hr Morphine Sulfate (PF) inj 4 mg 4 mg, Intravenous, ONCE, On Wed07/06/23 at 2330, For 1 dose Given 07/06/2023 11:00 PM EST 4 mg Morphine Sulfate (PF) inj 4 mg 4 mg, Intravenous, ONCE, On Wed07/07/23 at 0100, For 1 dose Given 07/07/2023 12:31 AM EST 4 mg Morphine Sulfate (PF) inj 4 mg 4 mg, IV Push, Q3H PRN Pain, Severe, Starting on Wed07/07/23 at 0302, Until Wed07/07/23 at 1523 Given 07/07/2023 2:51 PM EST 4 mg Given 07/07/2023 11:36 AM EST 4 mg Given 07/07/2023 8:26 AM EST 4 mg ondansetron (Zofran) inj 4 mg 4 mg, IV Push, ONCE, On Wed07/06/23 at 2330, For 1 dose Given 07/06/2023 11:00 PM EST 4 mg ondansetron (Zofran) inj 4 mg 4 mg, IV Push, Q6H PRN Nausea, Starting on Wed07/07/23 at 0300, Until Wed07/08/23 at 2120 Given 07/08/2023 4:25 AM EST 4 mg Given 07/07/2023 10:26 PM EST 4 mg Given 07/07/2023 4:43 PM EST 4 mg oxyCODONE (Roxicodone) oral syrup 10 mg 10 mg, Oral, Q6H PRN Pain, Breakthrough, moderate to severe pain, Starting on Wed07/07/23 at 1521, Until Wed07/08/23 at 2120 Given 07/08/2023 11:23 AM EST 10 mg Given 07/08/2023 4:25 AM EST 10 mg Given 07/07/2023 10:26 PM EST 10 mg Pantoprazole (Protonix) inj 40 mg 40 mg, IV Push, Q12H, First dose on Wed07/07/23 at 0900, Until Discontinued, IV push instructions: Flush I.V. Line before and after administration. In-line filter not required. 2-minute infusion: The volume of reconstituted solution (4mg/ml) to be injected may be administered intravenously over at least 2 minutes. ( Dilute each vial with 10 ml of 0.9% saline PF) Given 07/08/2023 9:41 AM EST 40 mg Given 07/07/2023 10:26 PM EST 40 mg Given 07/07/2023 8:26 AM EST 40 mg documented in this encounter Active and Recently Administered Medications Times are shown in EST. Scheduled Medication Order 07/06/2023 07/07/2023 07/08/2023 Acetaminophen (Ofirmev) inj 1,000 mg (COMPLETED) 1,000 mg, Intravenous, Q8H, 3 doses, First dose (after last modification) on Wed07/07/23 at 0345, Last dose on Wed07/07/23 at 2200, Administer over 15 Minutes, Administer undiluted over 15 minutes! NOTE: Maximum of 4000 mg per 24 hours of acetaminophen from all acetaminophen containing products., Indication: Patient is strictly NPO 0333 (New Bag - Provider: Avril Lopez RN)0348 (Stopped - Provider: Ivett Rivera RN)1508 (New Bag - Provider: Sofia Wheatley RN)2241 (New Bag - Provider: Ivett Rivera RN) 0600 (Stopped - Provider: Melany Hinson RN - Comment: Unknown. stop time.) diphenhydrAMINE (Benadryl) inj 25 mg (COMPLETED) 25 mg, IV Push, ONCE, On [place] 07/08/23 at 1445, For 1 dose 1405 (Given - Provider: Kayla Ortiz RN) HYDROmorphone (Dilaudid) inj 0.5 mg (COMPLETED) 0.5 mg, IV Push, ONCE, On Wed07/07/23 at 0245, For 1 dose 0211 (Given - Provider: Toyin Zuleta RN) Ioversol (Optiray 320) inj 100 mL (COMPLETED) 100 mL, Intravenous, ONCE, On Wed07/06/23 at 2345, For 1 dose, Radiology Medication Routing (Non-IR) 2345 (Given - Provider: Chirs Avalos, RT (R)) Ioversol (Optiray 320) inj 50 mL (COMPLETED) 50 mL, Intravenous, ONCE, On Wed07/07/23 at 0145, For 1 dose, Radiology Medication Routing (Non-IR) 0112 (Given - Provider: Yaniv Aleman, RT (R)) Ioversol (Optiray 320) inj 50 mL (COMPLETED) 50 mL, Intravenous, ONCE, On Wed07/07/23 at 0145, For 1 dose, Radiology Medication Routing (Non-IR) 0111 (Given - Provider: Yaniv Aleman RT (R) - Comment: 10 mL total of contrast injected in J tube per ER ordering provider) Morphine Sulfate (PF) inj 4 mg (COMPLETED) 4 mg, Intravenous, ONCE, On Wed07/06/23 at 2330, For 1 dose 2300 (Given - Provider: Toyin Zuleta RN) Morphine Sulfate (PF) inj 4 mg (COMPLETED) 4 mg, Intravenous, ONCE, On Wed07/07/23 at 0100, For 1 dose 0031 (Given - Provider: Toyin Zuleta RN) ondansetron (Zofran) inj 4 mg (COMPLETED) 4 mg, IV Push, ONCE, On Wed07/06/23 at 2330, For 1 dose 2300 (Given - Provider: Toyin Zuleta RN) Pantoprazole (Protonix) inj 40 mg 40 mg, IV Push, Q12H, First dose on Wed07/07/23 at 0900, Until Discontinued, IV push instructions: Flush I.V. Line before and after administration. In-line filter not required. 2-minute infusion: The volume of reconstituted solution (4mg/ml) to be injected may be administered intravenously over at least 2 minutes. ( Dilute each vial with 10 ml of 0.9% saline PF) 0154 (Given - Provider: Sofia Wheatley RN)7207 (Given - Provider: Ivett Rivera RN) 0982 (Given - Provider: Melany A Hinson, RN) Continuous Medication Order 07/06/2023 07/07/2023 07/08/2023 isolyte-S infusion Intravenous, at 125 mL/hr, Plasma-LYTE 148, isolyte-S, and isolyte-S pH 7.4 are considered equivalent - including for MAR barcode scanning., CONTINUOUS, Starting on Wed07/07/23 at 0100, Until Wed07/08/23 at 2120 0035 (New Bag - Provider: Toyin Zuleta RN)0557 (Paused - Provider: Ivett Rivera RN)0600 (Restarted - Provider: Ivett Rivera, RN)0829 (Paused - Provider: Ivett Rivera, RN)0834 (Restarted - Provider: Ivett Rivera, RN)0850 (Rate Change - Provider: Ivett Rivera, RN)0912 (Stopped - Provider: Ivett Rivera, RN)0914 (New Bag - Provider: Sofia Wheatley RN)1016 (Paused - Provider: Ivett Rivera RN)1023 (Restarted - Provider: Ivett Rivera, RN)1509 (Paused - Provider: Ivett Rivera, RN)1649 (Restarted - Provider: Sofia Wheatley, RN)1845 (New Bag - Provider: Sofia Wheatley, RN)2310 (Continue on Pump - Provider: Ivett Rivera RN)2329 (Rate Verify - Provider: Ivett Rivera, RN) 0353 (New Bag - Provider: Ivett Rivera RN)0428 (Paused - Provider: Ivett Rivera RN)0430 (Restarted - Provider: Ivett Rivera RN)0641 (Rate Verify - Provider: Ivett Rivera RN)0721 (Paused - Provider: Melany Hinson RN)0741 (Restarted - Provider: Melany Hinson RN)1140 (Paused - Provider: Melany Hinson, RN)1143 (Restarted - Provider: Melany Hinson RN)2120 (Due: Stopped) PRN Medication Order 07/06/2023 07/07/2023 07/08/2023 buffered lidocaine 1 % inj (CANCELED) ONCE PRN INTRA PROCEDURE, Starting on Wed07/08/23 at 1400, Until [place] 07/08/23 at 1415, Intra-Op 1400 (Given - Provid er: Luis Finn MD) fentaNYL (PF) inj (CANCELED) ONCE PRN INTRA PROCEDURE, Starting on [place] 07/08/23 at 1327, Until [place] 07/08/23 at 1415, Intra-Op 1327 (Given - Provid er: Kayla Ortiz RN)1329 (Given - Provider: Kayla Ortiz RN)1333 (Given - Provider: Kayla Ortiz RN)1335 (Given - Provider: Kayla Ortiz RN)1342 (Given - Provider: Kayla Ortiz RN) Ioversol (Optiray 320) inj (CANCELED) ONCE PRN INTRA PROCEDURE, Starting on [place] 07/08/23 at 1400, Until [place] 07/08/23 at 1415, Intra-Op 1400 (Given - Provid er: Luis Finn MD) midazolam (Versed) 2 MG/2ML inj (CANCELED) ONCE PRN INTRA PROCEDURE, Starting on [place] 07/08/23 at 1326, Until [place] 07/08/23 at 1415, Intra-Op 1326 (Given - Provid er: Kayla Ortiz RN)1329 (Given - Provider: Kayla Ortiz RN)1335 (Given - Provider: Kayla Ortiz RN)1342 (Given - Provider: Kayla Ortiz RN) Morphine Sulfate (PF) inj 4 mg (CANCELED) 4 mg, IV Push, Q3H PRN Pain, Severe, Starting on Wed07/07/23 at 0302, Until Wed07/07/23 at 1523 0409 (Given - Provider: Ayanna Cohn RN)0826 (Given - Provider: Sofia Wheatley RN)1136 (Given - Provider: Sofia Wheatley RN)1451 (Given - Provider: Sofia Wheatley RN) ondansetron (Zofran) inj 4 mg 4 mg, IV Push, Q6H PRN Nausea, Starting on Wed07/07/23 at 0300, Until Wed07/08/23 at 2120 1643 (Given - Provider: Sofia Wheatley RN)2226 (Given - Provider: Ivett Rivera RN) 0425 (Given - Provider: Ivett Rivera RN) oxyCODONE (Roxicodone) oral syrup 10 mg 10 mg, Oral, Q6H PRN Pain, Breakthrough, moderate to severe pain, Starting on Wed07/07/23 at 1521, Until [place] 07/08/23 at 2120 1640 (Given - Provider: Sofia Wheatley RN)2226 (Given - Provider: Ivett Rivera RN) 0425 (Given - Provider: Ivett Rivera RN)1123 (Given - Provider: Melany Hinson RN) sodium chloride 0.9 % flush/inj 3 mL 3 mL, IV Push, PRN Other, Line Patency, Starting on Wed07/07/23 at 0258, Until [place] 07/08/23 at 2120, Do not flush if lock, PICC, or central line not in place, IV infusing or unable to flush documented in this encounter Advance Directives Latest [...] the patient have Health Care Power of Tax Consultant? No Full Code 07/18/2021 7:04 AM 08/03/2021 4:12 PM This order reflects the patients wishes and were consensually agreed upon. Question Answer Comments Discussion of Advance Directives occurred with: Not Discussed Care Teams Auto Body Painter Relationship Specialty Start Date End Date Kinjal Reynoso PA-C [address] [phone] PCP - General Physician Block Engraver 11/05/22 documented as of this encounter
--- OUTSIDE RECORDS SUMMARY | 2023-08-07 19:26 | External Medical Summary | Summary of Care ---
Author Name Unknown Organization [facility] Address [address] [place] [address] Phone [phone] Care Team Providers Care Strap Buckler Machine Name Role Phone Kinjal Reynoso PA-C Primary Care Provider [phone] Reason for Visit * Reason Onset Date Comments Hospital Follow-Up 07/09/2023 Encounter Details Date Type Department Care Team (Late st Contact Info) Description 07/09/[address] [address] Trisha Trejo, RN Hospital Follow-Up (/) Allergies Active Allergy Reactions Criticality Noted Date [...] directed through J Tube via feeding pump 09573 mL 11 04/12/2023 Active Lansoprazole 15 MG [...] Capsule before bedtime. 90 Capsule 0 06/14/2023 07/16/2023 Active Promethazine HCl 25 MG Oral Tablet [...] of Care. 28 Tablet 0 07/04/2023 Active documented as of this encounter (statuses [...] encounter Miscellaneous Notes * Telephone Encounter - Trihsa Trejo RN - 07/09/2023 3:11 PM EST Transitions of Care Note Reason for Referral:Recent Admission Phone visit for follow up: MELBA Admitted to: [facility], Date: 07/06/23 Discharged to: Home, Date: 07/08/23 Diagnosis driving hospitalization: Malfunction of jejunostomy tube LVMM for patient to return call for hospital followup MELBA call. If patient calls back to the clinicplease obtain best time and number to reach patient or they can call me directly at [phone] with any questions or concerns. Please route to Trisha Trejo RN. Thank you documented in this encounter Plan of Treatment Upcoming Encounters Date Type Department Care Team (Late st Contact Info) Description 07/15/2023 8:40 AM EST Office Visit Carol Morrison [place] [phone] Kinjal Reynoso PA-C [place] [phone] 08/20/2023 1:50 PM EST Telemedicine Nutrition & Weight Management, [facility] [address] [place] [address] Kaity Yap RDN [address] [place] [phone] 09/20/2023 12:40 PM EDT Office Visit Nutrition & Weight Management, [facility] [address] [place] [address] Cee Santizo PA-C [address] [place] [phone] Health Maintenance Due Date Last Done Comments [...] this encounter Medical Devices Implanted Type Area Emergency Service Worker Device Identifier Shelf Expiration Date Model / Serial / Lot Port Implant W/8f Poly Cath - [id number] Implanted:Qty : 1 on 05/18/2023 by Juan Jose Connell DO at OR [facility] Right: Chest CR BARD : PERIPHERAL VASCULAR [id number] 11/18/2024 [id number] / / [id number] documented as of this encounter Advance Directives [...] the patient have Health Care Power of Crawler Tractor Operator? No Full Code 07/18/2021 7:04 AM 08/03/2021 4:12 PM This order reflects the patients wishes and were consensually agreed upon. Question Answer Comments Discussion of Advance Directives occurred with: Not Discussed Care Teams Strap Buckler Machine Relationship Specialty Start Date End Date Kinjal Reynoso PA-C [address] [phone] PCP - General Physician Manager Nursing Home 11/05/22 documented as of this encounter
--- OUTSIDE RECORDS SUMMARY | 2023-08-07 19:26 | External Medical Summary ---
Author Name Unknown Address Unknown Organization K1F:LABORATORY [facility] - [address] [place] [address] Laboratory Report Ordering Provider Test Date Status KALEY BREWER 07/10/2023 15:35:12 Final Observation Date Value Abnormality Reference (Units ) Status Lipase 07/10/2023 15:35:12 22 13-60 (U/L ) Final Performing Location LABORATORY [facility] - [address] [address]
--- OUTSIDE RECORDS SUMMARY | 2023-08-07 19:26 | External Medical Summary ---
Author Name Unknown Address Unknown Organization K1F:LAB[facility]ATORY [facility] - [address] [facility] [place] [address] Laboratory Report Ordering Provider Test Date Status YONAS LAW 07/08/2023 07:39:38 Final Observation Date Value Abnormality Reference (Units ) Status BUN 07/08/2023 07:39:38 6 6-20 (mg/dL) Final Creatinine 07/08/2023 07:39:38 0.6 0.5-1.0 (mg/dL) Final Glomerular filtration rate/1.73 sq M.predicted [Volume Rate/Area] in Serum, Plasma or Blood by Creatinine-based formula (CKD-EPI) 07/08/2023 07:39:38 >90 >=60 (mL/min) Final eGFR is calculated based on the CKD-EPI 2020 equation SODIUM 07/08/2023 07:39:38 136 135-146 (m mol/L) Final Potassium 07/08/2023 07:39:38 3.8 3.5-5.1 (m mol/L) Final Cl 07/08/2023 07:39:38 101 98-107 (mm ol/L) Final CO2 07/08/2023 07:39:38 25 22-32 (mmo l/L) Final Anion gap 07/08/2023 07:39:38 10 7-15 (mmol /L) Final Glucose 07/08/2023 07:39:38 78 70-120 (mg /dL) Final Albumin 07/08/2023 07:39:38 3.5 Below low normal 3.8 -5.0 (g/dL) Final AST (Aspartate aminotransferase) 07/08/2023 07:39:38 12 10-35 (U/L) Fin al Alk Phos 07/08/2023 07:39:38 67 35-130 (U/ L) Final Bilirubin, Total 07/08/2023 07:39:38 0.3 <=1 .2 (mg/dL) Final Calcium 07/08/2023 07:39:38 8.7 8.4-10.2 ( mg/dL) Final Protein 07/08/2023 07:39:38 6.1 6.0-8.3 (g /dL) Final ALT (Alanine aminotransferase) 07/08/2023 07:39:38 8 Below low normal 10-35 (U/L) Final Performing Location LABORATORY [facility] - [facility] [place] [address]
--- OUTSIDE RECORDS SUMMARY | 2023-08-07 19:26 | External Medical Summary ---
Author Name Unknown Address Unknown Organization K1F:[facility]ATORY [facility] - [address] [place] [address] Laboratory Report Ordering Provider Test Date Status LEIDA BREWERMARÍA 07/10/2023 15:35:12 Final Observation Date Value Abnormality Reference (Units ) Status WBC, Total 07/10/2023 15:35:12 6.10 4.00-10.80 (K/uL) Final RBC 07/10/2023 15:35:12 4.40 3.85-5.15 (M/uL) Final Hemoglobin 07/10/2023 15:35:12 12.9 12.0-15.3 (g/dL) Final HCT 07/10/2023 15:35:12 37.8 36.0-45.2 (%) Final MCV 07/10/2023 15:35:12 85.9 81.5-97.5 (fL) Final MCH 07/10/2023 15:35:12 29.3 27.0-34.0 (pg) Final MCHC 07/10/2023 15:35:12 34.1 32.0-36.0 (g/dL) Final RDW 07/10/2023 15:35:12 11.9 11.5-15.5 (%) Final Platelets 07/10/2023 15:35:12 316 140-400 (K/uL) Final MPV 07/10/2023 15:35:12 10.0 6.6-11.1 (fL) Final Nucleated erythrocytes/100 leukocytes [Ratio] in Blood by Automated count 07/10/2023 15:35:12 0 <=0 (/100 WBCs) Final Performing Location LABORATORY [facility] - [address] [facility] [place] [address]
--- OUTSIDE RECORDS SUMMARY | 2023-08-07 19:26 | External Medical Summary | Summary of Care ---
Author Name Unknown Organization [facility] Address [address] [place] [address] Phone [phone] Care Team Providers Care Preparer Samples And Repairs Name Role Phone Kinjal Reynoso PA-C Primary Care Provider [phone] Reason for Visit * Reason Onset Date Comments Hospital Follow-Up 07/09/2023 [facility]EL[facility] Encounter Details Date Type Department Care Team (Late st Contact Info) Description 07/09/[address] [phone] Trisha Trejo, RN Hospital Follow-Up ([facility]ELBA/) Allergies [...] OPIOID OVERDOSE - SEEK IMMEDIATE MEDICAL ATTENTION. [email or web address] 2 Each 3 3 Active Peptamen 1.5 Oral Liquid Administer 1000 mL daily, as directed through J Tube via feeding pump 05402 mL 11 3 Active Lansoprazole 15 MG [...] for follow up: inpatient hospitalization Admitted to: [facility], Date: 07/06/23 Discharged to: home, Date: 07/08/23, Patient ER on 07/10/23 Diagnosis driving hospitalization: Malfunction of jejunostomy tube Telephone call made to patient's number. No answer. Message left on machine to return call. Toyin Cooper RN * Telephone Encounter - Trisha Trejo RN - 07/09/2023 3:11 PM EST Transitions of Care Note Reason for Referral:Recent Admission Phone visit for follow up: [facility] Admitted to: [facility], Date: 07/06/23 Discharged to: Home, Date: 07/08/23 Diagnosis driving hospitalization: Malfunction of jejunostomy tube LVMM for patient to return call for hospital followup MEL[facility] call. If patient calls back to the clinicplease obtain best time and number to reach patient or they can call me directly at [phone] with any questions or concerns. Please route to Trisha Trejo RN. Thank you documented in this encounter Plan of Treatment Upcoming Encounters Date Type Department Care Team (Late st Contact Info) Description 07/15/2023 8:40 AM EST Office Visit [facility] [address] [phone] Kinjal Reynoso PA-C [address] [phone] 08/20/2023 1:50 PM EST Telemedicine Nutrition & Weight Management, [facility] [address] [address] Kaity Yap RDN [address] [address] 09/20/2023 12:40 PM EDT Office Visit Nutrition & Weight Management, [facility] [address] [place] [place] [address] Cee Santizo PA-C [address] [place] [address] Health Maintenance Due Date Last Done Comments [...] this encounter Medical Devices Implanted Type Area Vegetable Ii Farmworker Device Identifier Shelf Expiration Date Model / Serial / Lot Port Implant W/8f Poly Cath - [id number] Implanted:Qty : 1 on 05/18/2023 by Juan Jose Connell, at OR [facility] Right: Chest CR BARD : PERIPHERAL VASCULAR [id number] 11/18/2024 [id number] / / [id number] documented as of this encounter Advance Directives [...] the patient have Health Care Power of Preassembler And Inspector? No Full Code 07/18/2021 7:04 AM 08/03/2021 4:12 PM This order reflects the patients wishes and were consensually agreed upon. Question Answer Comments Discussion of Advance Directives occurred with: Not Discussed Care Teams Preparer Samples And Repairs Relationship Specialty Start Date End Date Kinjal Reynoso PA-C [address] [facility] [address] [place] [phone] PCP - General Physician Eyelet Operator 11/05/22 documented as of this encounter
--- OUTSIDE RECORDS SUMMARY | 2023-08-07 19:26 | External Medical Summary ---
Author Name Unknown Address Unknown Organization K1F:[facility] - [address] [facility] [place] [address] Laboratory Report Ordering Provider Test Date Status KALEY BREWER 07/10/2023 15:35:12 Final Observation Date Value Abnormality Reference (Units ) Status SYNC LEUKOCYTES IN BLOOD BY AUTOMATED COUNT 07/10/2023 15:35:12 6.10 4.00-10.80 (K/uL) Final Segs 07/10/2023 15:35:12 59.9 40.0-75.0 (%) Final Lymphs % 07/10/2023 15:35:12 32.8 18.0-42.0 (%) Final Monos 07/10/2023 15:35:12 6.6 1.0-11.0 (%) Final Eosinophils 07/10/2023 15:35:12 0.3 0.0-6.0 (%) Final Basos 07/10/2023 15:35:12 0.2 0.0-2.0 (%) Final Immature Granulocyte, Percent 07/10/2023 15:35:12 0.2 0.0-2.0 (%) Final Absolute Segs 07/10/2023 15:35:12 3.66 1.80-7.70 (K/uL) Final Lymphs, absolute 07/10/2023 15:35:12 2.00 1.00-4.80 (K/ul) Final Monos, Abs 07/10/2023 15:35:12 0.40 0.00-1.10 (K/uL) Final Eos, Abs 07/10/2023 15:35:12 0.02 0.00-0.70 (K/uL) Final Basos, Abs 07/10/2023 15:35:12 0.01 0.00-0.20 (K/uL) Final Immature Granulocytes, Number 07/10/2023 15:35:12 0.01 0.00-0.20 (K/uL) Final Performing Location [facility] [address] [facility] [address] [place] [address]
--- OUTSIDE RECORDS SUMMARY | 2023-08-07 19:26 | External Medical Summary | Summary of Care ---
Author Name Unknown Organization [facility] Address [address] [place] [address] Phone [phone] Care Team Providers Care Quill Layer Name Role Phone Kinjal Reynoso PA-C Primary Care Provider [phone] Reason for Visit * Reason Onset Date Comments Med Request 07/12/2023 Encounter Details Date Type Department Care Team (Late st Contact Info) Description 07/12/2023 Telephone [facility] [address] [facility] [address] Kinjal Reynoso PA-C [address] [facility] [place] [address] Med Request Allergies Active Allergy Reactions [...] OPIOID OVERDOSE - SEEK IMMEDIATE MEDICAL ATTENTION. [email or web address] 2 Each 3 03/31/2023 Active Peptamen 1.5 Oral Liquid Administer 1000 mL daily, as directed through J Tube via feeding pump 10831 mL 11 04/12/2023 Active Lansoprazole 15 MG [...] encounter Miscellaneous Notes * Telephone Encounter - Shell Angelo OSA - 07/12/2023 12:12 PM EST Pt is calling back in and stating that she is in need of her medication and that she only has her rental car until tonight at 5 and wont have anyway to apple picker the medication after that. * Telephone Encounter - Shania Poe special needs tutor - 07/12/2023 10:51 AM EST Patient is calling because she needs refills for Oxycodone HCI 10mg. Pt stating she is weaning off medication and new directions need to state "Take 1 Tablet by mouth every 8 hours as needed for Pain". Please clarify the directions for this medication and send a new prescription to [facility] . Pt is asking for high priority due to being out of medication and transportation Thank you, Star Poe, Tenderizer Tender Medicine Technologist [facility] (Formerly Tele[facility]) 07/12/2023,10:55 AM documented in this encounter Plan of Treatment Upcoming Encounters Date Type Department Care Team (Late st Contact Info) Description 07/15/2023 8:40 AM EST Office Visit [facility] [place] [address] [phone] Kinjal Reynoso PA-C [address] [address] 08/20/2023 1:50 PM EST Telemedicine Nutrition & Weight Management, [facility] [address] [place] [address] Kaity Yap RDN [address] [place] [address] 09/20/2023 12:40 PM EDT Office Visit Nutrition & Weight Management, [facility] [address] [place] [address] Cee Santizo PA-C [address] [place] [address] Health Maintenance Due Date Last Done Comments [...] this encounter Medical Devices Implanted Type Area Street Railway Line Installer Device Identifier Shelf Expiration Date Model / Serial / Lot Port Implant W/8f Poly Cath - [id number] Implanted:Qty : 1 on 05/18/2023 by Juan Jose Connell, at OR [facility] Right: Chest CR BARD : PERIPHERAL VASCULAR [id number] 11/18/2024 [id number] / / [id number] documented as of this encounter Visit Diagnoses [...] the patient have Health Care Power of Blanket Cutter Hand? No Full Code 07/18/2021 7:04 AM 08/03/2021 4:12 PM This order reflects the patients wishes and were consensually agreed upon. Question Answer Comments Discussion of Advance Directives occurred with: Not Discussed Care Teams Quill Layer Relationship Specialty Start Date End Date Kinjal Reynoso PA-C [address] [address] PCP - General Physician Asp Net Programmer 11/05/22 documented as of this encounter
--- OUTSIDE RECORDS SUMMARY | 2023-08-07 19:26 | External Medical Summary ---
Author Name Unknown Address Unknown Organization K1F:LABORATORY [facility] - [address] [place] [address] Laboratory Report Ordering Provider Test Date Status LILLIAN BEDOYA 07/07/2023 10:27:05 Final Observation Date Value Abnormality Reference (Units ) Status WBC, Total 07/07/2023 10:27:05 7.77 4.00-10.80 (K/uL) Final RBC 07/07/2023 10:27:05 3.87 3.85-5.15 (M/uL) Final Hemoglobin 07/07/2023 10:27:05 11.3 Below low normal 12.0-15.3 (g/dL) Final HCT 07/07/2023 10:27:05 32.8 Below low normal 36.0-45.2 (%) Final MCV 07/07/2023 10:27:05 84.8 81.5-97.5 (fL) Final MCH 07/07/2023 10:27:05 29.2 27.0-34.0 (pg) Final MCHC 07/07/2023 10:27:05 34.5 32.0-36.0 (g/dL) Final RDW 07/07/2023 10:27:05 12.2 11.5-15.5 (%) Final Platelets 07/07/2023 10:27:05 232 140-400 (K/uL) Final MPV 07/07/2023 10:27:05 10.6 6.6-11.1 (fL) Final Nucleated erythrocytes/100 leukocytes [Ratio] in Blood by Automated count 07/07/2023 10:27:05 0 <=0 (/100 WBCs) Final Performing Location LABORATORY [facility] - [address] [place] [address]
--- OUTSIDE RECORDS SUMMARY | 2023-08-07 19:26 | External Medical Summary ---
Author Name Unknown Address Unknown Organization K1F:LABORATORY [facility] - [address] [place] [address] Laboratory Report Ordering Provider Test Date Status KALEY BREWER 07/10/2023 15:35:12 Final Observation Date Value Abnormality Reference (Units ) Status Lactic Acid 07/10/2023 15:35:12 1.6 0.4-2.0 (mmol/L) Final Performing Location LABORATORY [facility] - [address] [place] [address]
--- OUTSIDE RECORDS SUMMARY | 2023-08-07 19:26 | External Medical Summary | Summary of Care ---
Author Name Unknown Organization [facility] Address [address] [place] [address] Phone [phone] Care Team Providers Care Director Plans Name Role Phone Edgardo Kinjal Britt PA-C Primary Care Provider [phone] Reason for Visit * Reason Comments Abdominal Pain * Auth/Cert Specialty Diagnoses / Procedures Referred By Carmen t Referred To Contact Referral ID Status Reason Start Date Expiration Date Visits Re quested Visits Authorized [id number] Encounter Details Date Type Department Care Team (Late st Contact Info) Description 07/10/2023 2:36 PM EST - 07/10/2023 5:00 PM EST Emergency [facility] Emergency Department ([facility]) [address] [place] [address] Néstor Mcnamara MD [address] [place] [address] Abdominal pain Discharge Disposition: Home - Self Care Allergies [...] as of this encounter (statuses as of 07/11/2023) Medications Medication Sig Dispensed Refills Start Date [...] OPIOID OVERDOSE - SEEK IMMEDIATE MEDICAL ATTENTION. [email or web address] Each 3 03/31/2023 Active Peptamen 1.5 Oral Liquid Administer 1000 mL daily, as directed through J Tube via feeding pump 19827 mL 11 04/12/2023 Active Lansoprazole 15 MG [...] as of this encounter (statuses as of 07/11/2023) Active Problems Problem Noted Date Diagnosed Date [...] as of this encounter (statuses as of 07/11/2023) Resolved Problems Problem Noted Date Diagnosed Date [...] as of this encounter (statuses as of 07/11/2023) Immunizations Name Administration Dates Next Due DTaP [...] Sign Reading Time Taken Comments Blood Pressure 138/82 07/10/2023 4:20 PM EST Pulse 91 07/10/2023 4:20 PM EST Temperature 36.7 C (98.1 F) 07/10/2023 2:29 PM ES T Respiratory Rate 20 07/10/2023 4:20 PM EST Oxygen Saturation 99% 07/10/2023 2:29 PM EST Inhaled Oxygen Concentration - - Weight 73 kg (161 lb) 07/10/2023 2:29 PM EST Height - - Body Mass Index 29.45 07/07/2023 3:58 AM EST documented in this [...] this encounter Discharge Instructions * Discharge Instructions* Néstor Mcnamara MD - 07/10/2023 4:37 PM EST Your workup here was reassuring including your CT scan. Please follow-up with your primary care doctor Return with worsening abdominal pain, nausea, vomiting, inability eat or drink, urinary symptoms, fevers, chills Please return to this Emergency Department or seek emergent care if your symptoms change, worsen significantly, or concern you in any way. Concerning symptoms that would require re-evaluation include, but are not necessarily limited to: - Fevers or shaking chills - Chest pain or difficulty breathing - Severe headache, numbness or tingling, or confusion - Persistent vomiting, severe abdominal pain, abdominal bloating, or bloody bowel movements - Inability to urinate or if your urine is significantly decreased Let us know if you have any questions regarding these instructions or the care you received here before leaving the Emergency Department. Please read the attached pamphlet for more information about your diagnosis and treatment. documented in this encounter ED Notes * Néstor Mcnamara MD - 07/10/2023 2:55 PM EST Images from the original note were not included. HISTORY OF PRESENT ILLNESS Anirudh Peñaloza is a 22 year old female who presents to the ED for evaluation of Abdominal Pain. The patient was seen at 07/10/23 1446. 22 y/o F presents to the ED with acute on chronic abdominal pain. She states she was recently discharged from the hospital after replacing her J-tube. She was primarily tube fed. She states her tube is functioning. She states she has not been tolerating her feeds all that much as she becomes nauseous. She has been dry heaving. Denies much vomiting. Denies any vaginal complaints. Denies any urinary complaints. Denies any chest pain or shortness of breath. She states she takes oxycodone at home The patient's allergies, past history, and medications were reviewed. PHYSICAL EXAM Initial Vitals (see all): BP 136/84 | Pulse 120 | Resp 20 | Temp 98.1 | O2 99 %, Room Air, None | Weight 73.03 kg | Height 157.5 cm | BMI 29.45 kg/m2 Initial Pain Assessment (see all): 8 (severe pain)/10, location: L abd pain ([facility] Adult Scale 0-10) Physical Exam Vitals and nursing note reviewed. Constitutional: General: She is not in acute distress. HENT: Head: Normocephalic and atraumatic. Cardiovascular: Rate and Rhythm: Regular rhythm. Tachycardia present. Pulmonary: Effort: Pulmonary effort is normal. No respiratory distress. Breath sounds: No wheezing. Abdominal: Palpations: Abdomen is soft. Tenderness: There is abdominal tenderness. There is guarding. There is no rebound. Comments: Generalized abdominal tenderness, left greater than right Musculoskeletal: General: Normal range of motion. Skin: General: Skin is warm and dry. Neurological: Mental Status: She is alert. Mental status is at baseline. Psychiatric: Behavior: Behavior is cooperative. PROCEDURES AND TREATMENTS ED Orders | ED Results MEDICAL DECISION MAKING Nursing notes and vital signs were reviewed. Differential Diagnoses Based on my history, physical exam, and evaluation, the differential includes, but is not limited, to the following diagnoses: SBO, acute on chronic abdominal pain, pancreatitis, colitis, diverticulitis, ileus, malfunctioning J-tube. Amount and/or Complexity of Data Reviewed External Data Reviewed: labs and notes. Labs: ordered. Decision-making details documented in ED Course. Radiology: ordered. ECG/medicine tests: ordered. Risk Prescription drug management. ED Course as of 07/10/23 1927 Sat Jul 10, 2023 1548 My EKG interpretation normal sinus rhythm at 90 beats per minute. No evidence of STEMI or obvious dysrhythmia [DR] 1618 Lipase: 22 [DR] 1619 Lactate: 1.6 [DR] 1619 CMP and CBC reassuring [DR] 1619 CT a/p: IMPRESSION: Appropriately positioned jejunostomy tube and changes of prior hysterectomy. No acute pathology is identified. [] 1636 Patient has PCP appointment 5 days [] 1636 Pulse: 91 improved [DR] ED Course User Index [] Néstor Mcnamara MD Patient was clinically stable for discharge upon reassessment; return precautions were discussed - patient verbalized understanding and was agreeable; all their questions were answered prior to discharge; patient was instructed to return to the ED if they were at all concerned or if they felt their signs/symptoms were worsening Clinical Impressions Abdominal pain Disposition Discharged. The patient's condition at disposition was: stable. Néstor Mcnamara * Cathleen Bowles RN - 07/10/2023 2:28 PM EST Pt recently had displaced j tube that was fixed here at [facility] in [place]. Reports she is having L sided abd and flank pain. documented in this encounter Miscellaneous Notes * ED [employer] Note - Kaylyn Aguayo RN - 07/10/2023 4:59 PM EST Pt verbalized understanding of D/C instructions. Aware to follow up with PCP and advised of return precautions. All questions and concerns answered and addressed at this time. Pt ambulated from ED with steady gait. documented in this encounter Plan of Treatment Upcoming Encounters Date Type Department Care Team (Late st Contact Info) Description 07/15/2023 8:40 AM EST Office Visit [facility] [address] [phone] Kinjal Reynoso PA-C [address] [address] 08/20/2023 1:50 PM EST Telemedicine Nutrition & Weight Management, [facility] [address] [address] Kaity Yap RDN [address] [address] 09/20/2023 12:40 PM EDT Office Visit Nutrition & Weight Management, [facility] [address] [address] Cee Santizo PA-C [address] [address] Scheduled Orders Name Type Priority Associated Diagnoses Orde r Schedule URINALYSIS WITH MICROSCOPIC EXAM Lab STAT One Time for 1 Occurrences starting 07/10/2023 until 07/10/2023 Health Maintenance Due Date Last Done Comments [...] this encounter Medical Devices Implanted Type Area Bellperson Device Identifier Shelf Expiration Date Model / Serial / Lot Port Implant W/8f Poly Cath - [id number] Implanted:Qty : 1 on 05/18/2023 by Juan Jose Connell DO at OR [facility] Right: Chest CR BARD : PERIPHERAL VASCULAR [id number] 11/18/2024 [id number] / / [id number] documented as of this encounter Procedures Procedure Name Priority Date/Time Associated Diagnosis Comments CT ABD/PELVIS W IV CONTRAST - WO ORAL CONTRAST STAT 07/10/2023 3:55 PM EST DIFFERENTIAL, AUTOMATED STAT 07/10/2023 3:35 PM EST COMPREHENSIVE METABOLIC PANEL STAT 07/10/2023 3:35 PM EST CBC STAT 07/10/2023 3:35 PM EST LIPASE STAT 07/10/2023 3:35 PM EST LACTATE STAT 07/10/2023 3:35 PM EST CBC STAT 07/10/2023 3:35 PM EST documented in this encounter Results * CT ABD/PELVIS W IV CONTRAST - WO ORAL CONTRAST (07/10/2023 3:55 PM EST) Anatomical Region Laterality Modality Body, Abdomen, Pelvis Computed T omography 07/10/2023 3:52 PM EST Impressions 07/10/2023 4:09 PM EST IMPRESSION: Appropriately positioned jejunostomy tube and changes of prior hysterectomy. No acute pathology is identified. THIS DOCUMENT HAS BEEN ELECTRONICALLY SIGNED BY ANASTACIO HUNT MD Narrative 07/10/2023 4:09 PM EST PROCEDURE INFORMATION: Exam: CT Abdomen And Pelvis With Contrast Exam date and time: 07/10/2023 3:52 PM Age: 22 years old Clinical indication: Other: Pain, endometriosis with hystero, jtube; Additional info: Abdominal pain TECHNIQUE: Imaging protocol: Computed tomography of the abdomen and pelvis with contrast. Radiation optimization: All CT scans at this facility use at least one of these dose optimization techniques: automated exposure control; mA and/or kV adjustment per patient size (includes targeted exams where dose is matched to clinical indication); or iterative reconstruction. Contrast material: OPTI 350; Contrast volume: 100 ml; Contrast route: INTRAVENOUS (IV); COMPARISON: 1. CT ABD/PELVIS W IV CONTRAST - WO ORAL CONTRAST 07/06/2023 11:[address] ABD/PELVIS W IV CONTRAST - WO ORAL CONTRAST 06/14/2023 1:[address] ABD/PELVIS W IV CONTRAST - WO ORAL CONTRAST 05/25/2023 10:26 PM FINDINGS: Limitations: Evaluation of intra-abdominal contents is limited by a paucity of intraperitoneal fat. Tubes, catheters and devices: There is a jejunostomy tube in place. Liver: Normal. No mass. Gallbladder and bile ducts: Normal. No calcified stones. No ductal dilation. Pancreas: The pancreas is of normal size and morphology, without evidence of masses, cysts, or calcifications. The pancreatic duct is not dilated. Spleen: The spleen is normal in size and attenuation. No splenic masses or cysts are observed. Adrenal glands: The adrenal glands appear normal. Kidneys and ureters: Both kidneys are of normal size and show uniform attenuation. There are no renal masses, cysts, or calculi. The adrenal glands appear normal. Stomach and bowel: Dense contrast is noted throughout the colon. Appendix: No evidence of appendicitis. Intraperitoneal space: Unremarkable. No free air. No significant fluid collection. Vasculature: The abdominal aorta and its major branches appear normal without evidence of aneurysm or stenosis. There are pelvic phleboliths. Lymph nodes: No enlarged or pathological lymph nodes are identified in the abdomen or pelvis. Urinary bladder: There is moderate distention of the urinary bladder. Reproductive: The patient has undergone prior hysterectomy. Bones/joints: The visualized osseous structures of the abdomen and pelvis appear intact and normal for patient age with no evidence of fractures or lytic or sclerotic lesions. Soft tissues: Unremarkable. Procedure Note Anastacio Hunt MD - 07/10/2023 PROCEDURE INFORMATION: Exam: CT Abdomen And Pelvis With Contrast Exam date and time: 07/10/2023 3:52 PM Age: 22 years old Clinical indication: Other: Pain, endometriosis with hystero, jtube;Additional info: Abdominal pain TECHNIQUE: Imaging protocol: Computed tomography of the abdomen and pelvis withcontrast. Radiation optimization: All CT scans at this facility use at least one ofthese dose optimization techniques: automated exposure control; mA and/or kV adjustment per patient size (includes targeted exams where dose is matchedto clinical indication); or iterative reconstruction. Contrast material: OPTI 350; Contrast volume: 100 ml; Contrast route: INTRAVENOUS (IV); COMPARISON: 1. CT ABD/PELVIS W IV CONTRAST - WO ORAL CONTRAST 07/06/2023 11:[address] ABD/PELVIS W IV CONTRAST - WO ORAL CONTRAST 06/14/2023 1:[address] ABD/PELVIS W IV CONTRAST - WO ORAL CONTRAST 05/25/2023 10:26 PM FINDINGS: Limitations: Evaluation of intra-abdominal contents is limited by apaucity of intraperitoneal fat. Tubes, catheters and devices: There is a jejunostomy tube in place. Liver: Normal. No mass. Gallbladder and bile ducts: Normal. No calcified stones. No ductaldilation. Pancreas: The pancreas is of normal size and morphology, without evidenceof masses, cysts, or calcifications. The pancreatic duct is not dilated. Spleen: The spleen is normal in size and attenuation. No splenic masses or cysts are observed. Adrenal glands: The adrenal glands appear normal. Kidneys and ureters: Both kidneys are of normal size and show uniform attenuation. There are no renal masses, cysts, or calculi. The adrenalglands appear normal. Stomach and bowel: Dense contrast is noted throughout the colon. Appendix: No evidence of appendicitis. Intraperitoneal space: Unremarkable. No free air. No significant fluid collection. Vasculature: The abdominal aorta and its major branches appear normalwithout evidence of aneurysm or stenosis. There are pelvic phleboliths. Lymph nodes: No enlarged or pathological lymph nodes are identified in the abdomen or pelvis. Urinary bladder: There is moderate distention of the urinary bladder. Reproductive: The patient has undergone prior hysterectomy. Bones/joints: The visualized osseous structures of the abdomen and pelvis appear intact and normal for patient age with no evidence of fractures orlytic or sclerotic lesions. Soft tissues: Unremarkable. IMPRESSION IMPRESSION: Appropriately positioned jejunostomy tube and changes of priorhysterectomy. No acute pathology is identified. THIS DOCUMENT HAS BEEN ELECTRONICALLY SIGNED BY ANASTACIO HUNT MD Néstor Mcnamara MD RAD CT * DIFFERENTIAL, AUTOMATED (07/10/2023 3:35 PM EST) WBC 6.10 4.00 - 10.80 K/uL 07/10/2023 3:44 PM EST [facility] Neutrophils % 59.9 40.0 - 75.0 % 07/10/2023 3:44 PM EST [facility] Lymphocytes % 32.8 18.0 - 42.0 % 07/10/2023 3:44 PM EST [facility] Monocytes % 6.6 1.0 - 11.0 % 07/10/2023 3:44 PM EST [facility] Eosinophils % 0.3 0.0 - 6.0 % 07/10/2023 3:44 PM EST [facility] Basophils % 0.2 0.0 - 2.0 % 07/10/2023 3:44 PM EST [facility] Immature Granulocytes % 0.2 0.0 - 2.0 % 07/10/2023 3:44 PM EST [facility] Absolute Neutrophils 3.66 1.80 - 7.70 K/uL 07/10/2023 3:44 PM EST [facility] Absolute Lymphocytes 2.00 1.00 - 4.80 K/ul 07/10/2023 3:44 PM EST [facility] Absolute Monocytes 0.40 0.00 - 1.10 K/uL 07/10/2023 3:44 PM EST [facility] Absolute Eosinophils 0.02 0.00 - 0.70 K/uL 07/10/2023 3:44 PM EST [facility] Absolute Basophils 0.01 0.00 - 0.20 K/uL 07/10/2023 3:44 PM EST [facility] Absolute Immature Granulocytes 0.01 0.00 - 0.20 K/uL 07/10/2023 3:44 PM EST [facility] Blood Venous blood specimen / Unknown Venipuncture / Unknown 07/10/2023 3:35 PM EST 07/10/2023 3:41 PM EST Néstor Mcnamara MD LAB BLOOD ORDERA [facility] LAB[facility] [address] [place] [address] * CBC (07/10/2023 3:35 PM EST) WBC 6.10 4.00 - 10.80 K/uL 07/10/2023 3:44 PM EST LABORATORY [facility] RBC 4.40 3.85 - 5.15 M/uL 07/10/2023 3:44 PM EST LAB[facility] HGB 12.9 12.0 - 15.3 g/dL 07/10/2023 3:44 PM EST [facility] HCT 37.8 36.0 - 45.2 % 07/10/2023 3:44 PM EST LAB[facility] MCV 85.9 81.5 - 97.5 fL 07/10/2023 3:44 PM EST LAB[facility] MCH 29.3 27.0 - 34.0 pg 07/10/2023 3:44 PM EST LABORATORY [facility] MCHC 34.1 32.0 - 36.0 g/dL 07/10/2023 3:44 PM EST LAB[facility]ATORY [facility] RDW 11.9 11.5 - 15.5 % 07/10/2023 3:44 PM EST LABORATORY [facility] PLT 316 140 - 400 K/uL 07/10/2023 3:44 PM EST LAB[facility]ATORY [facility] MPV 10.0 6.6 - 11.1 fL 07/10/2023 3:44 PM EST LABORATORY [facility] nRBCs 0 <=0 /100 WBCs 07/10/2023 3:44 PM EST LABORATORY [facility] Blood Venous blood specimen / Unknown Venipuncture / Unknown 07/10/2023 3:35 PM EST 07/10/2023 3:41 PM EST Néstor Mcnamara MD LAB BLOOD ORDERA BLES Performing Organization Address City/[facility]/ZIP Co de Phone Number LABORATORY [address] [phone] * LACTATE (07/10/2023 3:35 PM EST) Lactate 1.6 0.4 - 2.0 mmol/L 07/10/2023 3:57 PM EST LABORATORY [facility] Blood Venous blood specimen / Unknown Venipuncture / Unknown 07/10/2023 3:35 PM EST 07/10/2023 3:41 PM EST Néstor Mcnamara MD LAB BLOOD ORDERA BLES Performing Organization Address [facility]/ZIP Co de Phone Number LABORATORY [address] [phone] * LIPASE (07/10/2023 3:35 PM EST) Lipase 22 13 - 60 U/L 07/10/2023 4:03 PM EST LABORATORY [facility] Blood Venous blood specimen / Unknown Venipuncture / Unknown 07/10/2023 3:35 PM EST 07/10/2023 3:41 PM EST Néstor Mcnamara MD LAB BLOOD ORDERA BLES Performing Organization Address City/[facility]/ZIP Co de Phone Number LABORATORY [address] [phone] * (ABNORMAL) COMPREHENSIVE METABOLIC PANEL (07/10/2023 3:35 PM EST) BUN 13 6 - 20 mg/dL 07/10/2023 4:03 PM EST [facility] Creatinine 0.6 0.5 - 1.0 mg/dL 07/10/2023 4:03 PM EST [facility] Estimated Glomerular Filtration Rate >90 >=60 mL/min 07/10/2023 4:03 PM EST [facility] Comment:eGFR is calculated b ased on the CKD-EPI 2020 equation Sodium 140 135 - 146 mmol/L 07/10/2023 4:03 PM EST [facility] Potassium 4.3 3.5 - 5.1 mmol/L 07/10/2023 4:03 PM EST [facility] Chloride 105 98 - 107 mmol/L 07/10/2023 4:03 PM EST [facility] CO2 23 22 - 32 mmol/L 07/10/2023 4:03 PM EST [facility] Anion Gap 12 7 - 15 mmol/L 07/10/2023 4:03 PM EST [facility] Glucose 102 70 - 120 mg/dL 07/10/2023 4:03 PM EST [facility] Albumin 4.0 3.8 - 5.0 g/dL 07/10/2023 4:03 PM EST [facility] AST 14 10 - 35 U/L 07/10/2023 4:03 PM EST [facility] Alkaline Phosphatase 78 35 - 130 U/L 07/10/2023 4:03 PM EST [facility] Bilirubin, Total 0.2 <=1.2 mg/dL 07/10/2023 4:03 PM EST [facility] Calcium 9.9 8.4 - 10.2 mg/dL 07/10/2023 4:03 PM EST [facility] Protein 7.9 6.0 - 8.3 g/dL 07/10/2023 4:03 PM EST [facility] ALT 8(L) 10 - 35 U/L 07/10/2023 4:03 PM EST [facility] Blood Venous blood specimen / Unknown Venipuncture / Unknown 07/10/2023 3:35 PM EST 07/10/2023 3:41 PM EST Néstor Mcnamara MD LAB BLOOD [facility] [address] [address] documented in this encounter Visit Diagnoses Diagnosis Abdominal pain Abdominal pain, unspecified site documented in this encounter Administered Medications Inactive Administered Medications - up to 3 most recent administrations Medication Order MAR Action Action Date Dose Rate Site Acetaminophen (Ofirmev) inj 1,000 mg 1,000 mg, Intravenous, ONCE, 1 dose, On 07/10/23 at 1530, Administer over 15 Minutes, Administer undiluted over 15 minutes! NOTE: Maximum of 4000 mg per 24 hours of acetaminophen from all acetaminophen containing products., Indication: Patient is strictly NPO New Bag 07/10/2023 4:13 PM EST 1,000 mg 400 mL/hr Famotidine (Pepcid) inj 20 mg 20 mg, IV Push, ONCE, On 07/10/23 at 1530, For 1 dose, Give IV push over 2 minutes. Given 07/10/2023 4:05 PM EST 20 mg Ioversol (Optiray 350) 74 % inj 100 mL 100 mL, Intravenous, ONCE, On 07/10/23 at 1630, For 1 dose, Radiology Medication Routing (Non-IR) Given 07/10/2023 4:30 PM EST 100 mL ketorolac (Toradol) 30 MG/ML inj 15 mg 15 mg, IV Push, ONCE, On 07/10/23 at 1530, For 1 dose Given 07/10/2023 4:06 PM EST 15 mg NSS 0.9% 1,000 mL bolus infusion Intravenous, at 1,000 mL/hr Administer over 60 Minutes, Wide open, This infusion may be completed in less than 1 hour, since it will be a wide open rate, ONCE, 1 dose, On 07/10/23 at 1530 Restarted 07/10/2023 4:04 PM EST 1000 mL/hr New Bag 07/10/2023 3:51 PM EST 1,000 mL 1000 mL/hr ondansetron (Zofran) inj 4 mg 4 mg, IV Push, ONCE, On 07/10/23 at 1715, For 1 dose Given 07/10/2023 4:48 PM EST 4 mg documented in this encounter Active and Recently Administered Medications Times are shown in EST. Scheduled Medication Order 07/08/2023 07/09/2023 07/10/2023 Acetaminophen (Ofirmev) inj 1,000 mg (COMPLETED) 1,000 mg, Intravenous, ONCE, 1 dose, On 07/10/23 at 1530, Administer over 15 Minutes, Administer undiluted over 15 minutes! NOTE: Maximum of 4000 mg per 24 hours of acetaminophen from all acetaminophen containing products., Indication: Patient is strictly NPO 1613 (New Bag - Prov ider: Kaylyn Aguayo RN)1626 (Stopped - Provider: Kaylyn Aguayo RN) Famotidine (Pepcid) inj 20 mg (COMPLETED) 20 mg, IV Push, ONCE, On 07/10/23 at 1530, For 1 dose, Give IV push over 2 minutes. 1605 (Given - Provid er: Kaylyn Aguayo RN) Ioversol (Optiray 350) 74 % inj 100 mL (COMPLETED) 100 mL, Intravenous, ONCE, On 07/10/23 at 1630, For 1 dose, Radiology Medication Routing (Non-IR) 1630 (Given - Provid er: Melba Alonzo, RT (R)) ketorolac (Toradol) 30 MG/ML inj 15 mg (COMPLETED) 15 mg, IV Push, ONCE, On 07/10/23 at 1530, For 1 dose 1606 (Given - Provid er: Kaylyn Aguayo RN) NSS 0.9% 1,000 mL bolus infusion (COMPLETED) Intravenous, at 1,000 mL/hr Administer over 60 Minutes, Wide open, This infusion may be completed in less than 1 hour, since it will be a wide open rate, ONCE, 1 dose, On 07/10/23 at 1530 1551 (New Bag - Prov ider: Kaylyn Aguayo RN)1551 (Paused - Provider: Kaylyn Aguayo RN)1604 (Restarted - Provider: Kaylyn Aguayo RN)1654 (Stopped - Provider: Kaylyn Aguayo RN) ondansetron (Zofran) inj 4 mg (COMPLETED) 4 mg, IV Push, ONCE, On 07/10/23 at 1715, For 1 dose 1648 (Given - Provid er: Kaylyn Aguayo RN) documented in this encounter Advance Directives Latest [...] the patient have Health Care Power of Pump Runner? No Full Code 07/18/2021 7:04 AM 08/03/2021 4:12 PM This order reflects the patients wishes and were consensually agreed upon. Question Answer Comments Discussion of Advance Directives occurred with: Not Discussed Care Teams Director Plans Relationship Specialty Start Date End Date Kinjal Reynoso PA-C [address] [phone] PCP - General Physician Electrical Technician 11/05/22 documented as of this encounter
--- OUTSIDE RECORDS SUMMARY | 2023-08-07 19:26 | External Medical Summary ---
Author Name Unknown Address Unknown Organization K1F:LABORATORY [facility] - [address] [place] [address] Laboratory Report Ordering Provider Test Date Status YONAS LAW 07/08/2023 07:39:38 Final Observation Date Value Abnormality Reference (Units ) Status WBC, Total 07/08/2023 07:39:38 5.09 4.00-10.80 (K/uL) Final RBC 07/08/2023 07:39:38 3.72 3.85-5.15 (M/uL) Final Hemoglobin 07/08/2023 07:39:38 11.3 Below low normal 12.0-15.3 (g/dL) Final HCT 07/08/2023 07:39:38 31.2 Below low normal 36.0-45.2 (%) Final MCV 07/08/2023 07:39:38 83.9 81.5-97.5 (fL) Final MCH 07/08/2023 07:39:38 30.4 27.0-34.0 (pg) Final MCHC 07/08/2023 07:39:38 36.2 32.0-36.0 (g/dL) Final RDW 07/08/2023 07:39:38 12.0 11.5-15.5 (%) Final Platelets 07/08/2023 07:39:38 240 140-400 (K/uL) Final MPV 07/08/2023 07:39:38 10.3 6.6-11.1 (fL) Final Nucleated erythrocytes/100 leukocytes [Ratio] in Blood by Automated count 07/08/2023 07:39:38 0 <=0 (/100 WBCs) Final Performing Location LABORATORY [facility] - [address] [place] [address]
--- OUTSIDE RECORDS SUMMARY | 2023-08-07 19:26 | External Medical Summary ---
Author Name Unknown Address Unknown Organization K1F:[facility]ATORY [facility] - [address] [address] Laboratory Report Ordering Provider Test Date Status KASANDRA DELGADO 07/06/2023 23:04:06 Final Observation Date Value Abnormality Reference (Units ) Status Color of Urine by Auto 07/06/2023 23:04:06 Yellow Light Yellow, Yellow, Dark Yellow Final Clarity, Urine 07/06/2023 23:04:06 Clear Clear Final Glucose [Mass/volume] in Urine by Automated test strip 07/06/2023 23:04:06 Negative Negative (mg/dL) Final Bilirubin.total [Presence] in Urine by Automated test strip 07/06/2023 23:04:06 Negative Negative Final Ketones [Mass/volume] in Urine by Automated test strip 07/06/2023 23:04:06 Negative Negative (mg/dL) Final Specific gravity, Urine 07/06/2023 23:04:06 1.014 1.003-1.030 Final Hemoglobin [Presence] in Urine by Automated test strip 07/06/2023 23:04:06 Negative Negative Final pH, Urine 07/06/2023 23:04:06 7.5 5.0-7.5 (Units) Final Protein [Mass/volume] in Urine by Automated test strip 07/06/2023 23:04:06 Negative Negative (mg/dL) Final Urobilinogen [Mass/volume] in Urine by Automated test strip 07/06/2023 23:04:06 0.2 0.2, 1.0 (mg/dL) Final Nitrite [Presence] in Urine by Automated test strip 07/06/2023 23:04:06 Negative Negative Final Leukocyte esterase [Presence] in Urine by Automated test strip 07/06/2023 23:04:06 Negative Negative Final Annotation Comment 07/06/2023 23:04:06 Final Screen negative - Microscopi c not performed. Performing Location LAB[facility]ATORY [facility] - [address] [place] [address]
--- OUTSIDE RECORDS SUMMARY | 2023-08-07 19:26 | External Medical Summary ---
Author Name Unknown Address Unknown Organization K1F:LABORATORY [facility] - [address] [place] [address] Laboratory Report Ordering Provider Test Date Status LILLIAN BEDOYA 07/07/2023 10:27:05 Final Observation Date Value Abnormality Reference (Units ) Status BUN 07/07/2023 10:27:05 5 Below low normal 6-20 (mg/dL) Final Creatinine 07/07/2023 10:27:05 0.6 0.5-1.0 (mg/dL) Final Glomerular filtration rate/1.73 sq M.predicted [Volume Rate/Area] in Serum, Plasma or Blood by Creatinine-based formula (CKD-EPI) 07/07/2023 10:27:05 >90 >=60 (mL/min) Final eGFR is calculated based on the CKD-EPI 2020 equation SODIUM 07/07/2023 10:27:05 139 135-146 (m mol/L) Final Potassium 07/07/2023 10:27:05 3.9 3.5-5.1 (m mol/L) Final Cl 07/07/2023 10:27:05 105 98-107 (mm ol/L) Final CO2 07/07/2023 10:27:05 25 22-32 (mmo l/L) Final Anion gap 07/07/2023 10:27:05 9 7-15 (mmol /L) Final Glucose 07/07/2023 10:27:05 99 70-120 (mg /dL) Final Calcium 07/07/2023 10:27:05 8.6 8.4-10.2 ( mg/dL) Final Performing Location LAB[facility]ATORY [facility] - [address] [facility] [place] [address]
--- OUTSIDE RECORDS SUMMARY | 2023-08-07 19:26 | External Medical Summary | Summary of Care ---
Author Name Unknown Organization [facility] Address [address] [place] [address] Phone [phone] Care Team Providers Care Wheel Buffer Name Role Phone Kinjal Reynoso PA-C Primary Care Provider [phone] Reason for Visit * Reason Onset Date Comments Med Request 07/12/2023 Encounter Details Date Type Department Care Team (Late st Contact Info) Description 07/12/2023 Telephone [facility] [address] [facility] [place] [address] Kinjal Reynoso PA-C [address] [facility] [place] [address] Med Request Allergies Active Allergy [...] OPIOID OVERDOSE - SEEK IMMEDIATE MEDICAL ATTENTION. [email or web address] 2 Each 3 03/31/2023 Active Peptamen 1.5 Oral Liquid Administer 1000 mL daily, as directed through J Tube via feeding pump 24197 mL 11 04/12/2023 Active Lansoprazole 15 MG [...] Continuation of Care. 28 Tablet 0 07/04/2023 4 Discontinue d(Refill) documented as of this [...] encounter Miscellaneous Notes * Telephone Encounter - Kinjal Reynoso PA-C - 07/12/2023 12:41 PM EST PDMP reviewed and consistent. Refill sent for 10mg every 8 hours for 7 days. See refill encounter. Pt to call in next Wednesday for refill. Pt sent Numblebee message. * Telephone Encounter - Shell Angelo OSA - 07/12/2023 12:12 PM EST Pt is calling back in and stating that she is in need of her medication and that she only has her rental car until tonight at 5 and wont have anyway to picker and packer the medication after that. * Telephone Encounter [...] medication and send a new prescription to [facility] . Pt is asking for high priority due to being out of medication and transportation Thank you, Star Poe, Cable Placer Supervisor Toy Assembly 1 [facility] ([facility]) (Formerly Telepharmacy) 07/12/2023,10:55 AM documented in this encounter Plan of Treatment Upcoming Encounters Date Type Department Care Team (Late st Contact Info) Description 07/15/2023 8:40 AM EST Office Visit [facility] [address] [place] [address] Kinjal Reynoso PA-C [address] [employer] [place] [address] 08/20/2023 1:50 PM EST Telemedicine Nutrition & Weight Management, [facility] [address] [place] [address] Kaity Yap RDN [address] [place] [place] [address] 09/20/2023 12:40 PM EDT Office Visit Nutrition & Weight Management, [facility] [address] [place] [address] Cee Santizo PA-C [address] [place] [address] Health Maintenance Due Date Last Done Comments [...] this encounter Medical Devices Implanted Type Area Director Of Retention Device Identifier Shelf Expiration Date Model / Serial / Lot Port Implant W/8f Poly Cath - [id number] Implanted:Qty : 1 on 05/18/2023 by Juan Jose Connell DO at OR [facility] Right: Chest CR BARD : PERIPHERAL VASCULAR [id number] 11/18/2024 [id number] / / [id number] documented as of this encounter Visit Diagnoses [...] the patient have Health Care Power of Fire Fighter [place]? No Full Code 07/18/2021 7:04 AM 08/03/2021 4:12 PM This order reflects the patients wishes and were consensually agreed upon. Question Answer Comments Discussion of Advance Directives occurred with: Not Discussed Care Teams Wheel Buffer Relationship Specialty Start Date End Date Kinjal Reynoso PA-C [address] [place] [place] [address] PCP - General Physician Intensive Care Nurse 11/05/22 documented as of this encounter
--- OUTSIDE RECORDS SUMMARY | 2023-08-07 19:26 | External Medical Summary | Summary of Care ---
Author Name Unknown Organization [facility] Address [address] [place] [address] Phone [phone] Care Team Providers Care Genetics Nurse Name Role Phone Kinjal Reynoso PA-C Primary Care Provider [phone] Reason for Visit * Reason Comments Medication Refill Encounter Details Date Type Department Care Team (Late st Contact Info) Description 07/12/2023 Refill [facility] 21 [facility] [place] [address] Kinjal Reynoso PA-C 21 [facility] [place] [address] Chronic abdominal pain; Chronic female pelvic [...] OPIOID OVERDOSE - SEEK IMMEDIATE MEDICAL ATTENTION. [email or web address] 2 Each 3 3 Active Peptamen 1.5 Oral Liquid Administer 1000 mL daily, as directed through J Tube via feeding pump 38177 mL 11 3 Active Lansoprazole 15 MG [...] too strong. 90 Tablet 0 3 Active oxyCODONE HCl 10 MG Oral Tablet (Roxicodone)Ind ications:Chroni c abdominal pain,Chronic female pelvic pain Take 1 Tablet by mouth every 8 hours as needed for Pain, Severe or Pain, Moderate. Continuation of Care. 21 Tablet 0 4 Active Acetaminophen 325 MG Oral Tablet (Tylenol) [...] Encounter - Kinjal Reynoso PA-C - 07/12/2023 12:46 PM ESTSigned Prescriptions: Disp Refills oxyCODONE HCl 10 MG Oral Tablet (Roxicodon*21 Tab*0 Sig: Take 1 Tablet by mouth every 8 hours as needed for Pain, Severe or Pain, Moderate. Continuation of Care.Authorizing Provider: KINJAL REYNOSO * Telephone Encounter - Kinjal Reynoso PA-C - 07/12/2023 12:44 PM EST Weaning down. Pt agreeable to 1 every 8 hours for the next 7 days. Then if tolerated, will continueto taper down dose. documented in this encounter Plan of Treatment Upcoming Encounters Date Type Department Care Team (Late st Contact Info) Description 07/15/2023 8:40 AM EST Office Visit [facility] [place] [address] [place] [phone] Kinjal Reynoso PA-C [address] [place] [address] 08/20/2023 1:50 PM EST Telemedicine Nutrition & Weight Management, [facility] [address] [place] [address] Kaity Yap RDN [address] [place] [address] 09/20/2023 12:40 PM EDT Office Visit Nutrition & Weight Management, [facility] [address] [place] [address] Cee Santizo PA-C [address] [place] [address] Health Maintenance Due Date Last Done Comments [...] this encounter Medical Devices Implanted Type Area Master Planner Device Identifier Shelf Expiration Date Model / Serial / Lot Port Implant W/8f Poly Cath - [id number] Implanted:Qty : 1 on 05/18/2023 by Juan Jose Connell DO at OR [facility] Right: Chest CR BARD : PERIPHERAL VASCULAR [id number] 11/18/2024 [id number] / / [id number] documented as of this encounter Visit Diagnoses [...] the patient have Health Care Power of Shelf Stocker? No Full Code 07/18/2021 7:04 AM 08/03/2021 4:12 PM This order reflects the patients wishes and were consensually agreed upon. Question Answer Comments Discussion of Advance Directives occurred with: Not Discussed Care Teams Genetics Nurse Relationship Specialty Start Date End Date Kinjal Reynoso PA-C [address] [place] [place] [address] PCP - General Physician Heel Attacher Wood 11/05/22 documented as of this encounter
--- OUTSIDE RECORDS SUMMARY | 2023-08-07 19:26 | External Medical Summary ---
Author Name Unknown Address Unknown Organization K1F:[facility] - [address] [facility] [place] [address] Laboratory Report Ordering Provider Test Date Status KALEY BREWER 07/10/2023 15:35:12 Final Observation Date Value Abnormality Reference (Units ) Status BUN 07/10/2023 15:35:12 13 6-20 (mg/dL) Final Creatinine 07/10/2023 15:35:12 0.6 0.5-1.0 (mg/dL) Final Glomerular filtration rate/1.73 sq M.predicted [Volume Rate/Area] in Serum, Plasma or Blood by Creatinine-based formula (CKD-EPI) 07/10/2023 15:35:12 >90 >=60 (mL/min) Final eGFR is calculated based on the CKD-EPI 2020 equation SODIUM 07/10/2023 15:35:12 140 135-146 (m mol/L) Final Potassium 07/10/2023 15:35:12 4.3 3.5-5.1 (m mol/L) Final Cl 07/10/2023 15:35:12 105 98-107 (mm ol/L) Final CO2 07/10/2023 15:35:12 23 22-32 (mmo l/L) Final Anion gap 07/10/2023 15:35:12 12 7-15 (mmol /L) Final Glucose 07/10/2023 15:35:12 102 70-120 (mg /dL) Final Albumin 07/10/2023 15:35:12 4.0 3.8-5.0 (g /dL) Final AST (Aspartate aminotransferase) 07/10/2023 15:35:12 14 10-35 (U/L) Fin al Alk Phos 07/10/2023 15:35:12 78 35-130 (U/ L) Final Bilirubin, Total 07/10/2023 15:35:12 0.2 <=1 .2 (mg/dL) Final Calcium 07/10/2023 15:35:12 9.9 8.4-10.2 ( mg/dL) Final Protein 07/10/2023 15:35:12 7.9 6.0-8.3 (g /dL) Final ALT (Alanine aminotransferase) 07/10/2023 15:35:12 8 Below low normal 10-35 (U/L) Final Performing Location LABORATORY [facility] - [facility] [place] [address]
--- OUTSIDE RECORDS SUMMARY | 2023-08-07 19:26 | External Medical Summary ---
Author Name Unknown Address Unknown Organization K1F:LABORATORY [facility] - [address] [facility] [place] [address] Laboratory Report Ordering Provider Test Date Status YONAS LAW 07/08/2023 07:39:38 Final Observation Date Value Abnormality Reference (Units ) Status SYNC LEUKOCYTES IN BLOOD BY AUTOMATED COUNT 07/08/2023 07:39:38 5.09 4.00-10.80 (K/uL) Final Segs 07/08/2023 07:39:38 50.9 40.0-75.0 (%) Final Lymphs % 07/08/2023 07:39:38 36.5 18.0-42.0 (%) Final Monos 07/08/2023 07:39:38 10.0 1.0-11.0 (%) Final Eosinophils 07/08/2023 07:39:38 2.2 0.0-6.0 (%) Final Basos 07/08/2023 07:39:38 0.2 0.0-2.0 (%) Final Immature Granulocyte, Percent 07/08/2023 07:39:38 0.2 0.0-2.0 (%) Final Absolute Segs 07/08/2023 07:39:38 2.59 1.80-7.70 (K/uL) Final Lymphs, absolute 07/08/2023 07:39:38 1.86 1.00-4.80 (K/ul) Final Monos, Abs 07/08/2023 07:39:38 0.51 0.00-1.10 (K/uL) Final Eos, Abs 07/08/2023 07:39:38 0.11 0.00-0.70 (K/uL) Final Basos, Abs 07/08/2023 07:39:38 0.01 0.00-0.20 (K/uL) Final Immature Granulocytes, Number 07/08/2023 07:39:38 0.01 0.00-0.20 (K/uL) Final Performing Location LABORATORY [facility] - [address] [place] [address]
--- OUTSIDE RECORDS SUMMARY | 2023-08-07 19:26 | External Medical Summary ---
Author Name Unknown Address Unknown Organization K1F:LABORATORY [facility] - [address] [facility] [address] Laboratory Report Ordering Provider Test Date Status KASANDRA DELGADO 07/07/2023 02:29:00 Final SCREENING Observation Date Value Abnormality Reference (Units ) Status SARS Coronavirus 2 07/07/2023 02:29:00 Negative N egative Final 2019 Novel Coronavirus not d etected.

This express test was developed and its performance characteristics determined by [employer] [facility]. It has not been cleared or approved [...] (RT-PCR) test, or a Centers for Disease Control-acceptable equivalent. The test is performed in a high complexity Clinical Laboratory Improvement Amendments-(CLIA) certified laboratory. The test is acceptable for SARS-CoV-2 diagnosis, surveillance, and travel within the [place] and to most countries. Please check with local testing authorities about requirements before travel.

The validation of bronchial specimens, tracheal aspirates, and sputum for this assay was developed and performance characteristics determined by [facility]. The validation of alternate specimen types has not been cleared or approved by the U.S. Food and Drug Administration (FDA). It has been determined that such clearance is not necessary. Performing Location [facility]ORY [facility] - [address] [facility] [address]
--- OUTSIDE RECORDS SUMMARY | 2023-08-07 19:26 | External Medical Summary | Summary of Care ---
Author Name Unknown Organization [facility] Address [address] [place] [address] Phone [phone] Care Team Providers Care Garnetter Name Role Phone Kinjal Reynoso PA-C Primary Care Provider [phone] Reason for Visit * Reason Onset Date Comments Med Request 07/12/2023 Encounter Details Date Type Department Care Team (Late st Contact Info) Description 07/12/2023 Telephone [facility] [address] [facility] [place] [address] Kinjal Reynoso PA-C [address] [facility] [place] [address] Med Request Allergies Active Allergy Reactions [...] OPIOID OVERDOSE - SEEK IMMEDIATE MEDICAL ATTENTION. [email or web address] 2 Each 3 03/31/2023 Active Peptamen 1.5 Oral Liquid Administer 1000 mL daily, as directed through J Tube via feeding pump 82574 mL 11 04/12/2023 Active Lansoprazole 15 MG [...] encounter Miscellaneous Notes * Telephone Encounter - Shania Poe PHARM Tech - 07/12/2023 10:51 AM EST Patient is calling because she needs refills for Oxycodone HCI 10mg. Pt stating she is weaning off medication and new directions need to state "Take 1 Tablet by mouth every 8 hours as needed for Pain". Please clarify the directions for this medication and send a new prescription to [facility] . Pt is asking for high priority due to being out of medication and transportation Thank you, Star Poe, Food And Beverage Director Manufacturing Cost Estimator 1 [facility] ([facility]PS) (Formerly Telepharmacy) 07/12/2023,10:55 AM documented in this encounter Plan of Treatment Upcoming Encounters Date Type Department Care Team (Late st Contact Info) Description 07/15/2023 8:40 AM EST [facility] [address] [place] [address] [place] [address] Kinjal Reynoso PA-C [address] [place] [address] 08/20/2023 1:50 PM EST Telemedicine Nutrition & Weight Management, [facility] [address] [place] [address] Kaity Yap RDN [address] [place] [address] 09/20/2023 12:40 PM EDT Office Visit Nutrition & Weight Management, [facility] [address] [place] [address] Cee Santizo PA-C [address] [place] [address] Health Maintenance Due Date Last Done Comments [...] this encounter Medical Devices Implanted Type Area Tax Examining Technician Device Identifier Shelf Expiration Date Model / Serial / Lot Port Implant W/8f Poly Cath - [id number] Implanted:Qty : 1 on 05/18/2023 by Juan Jose Connell, at OR [facility] Right: Chest CR BARD : PERIPHERAL VASCULAR [id number] 11/18/2024 [id number] / / [id number] documented as of this encounter Visit Diagnoses [...] the patient have Health Care Power of Sample Body Builder? No Full Code 07/18/2021 7:04 AM 08/03/2021 4:12 PM This order reflects the patients wishes and were consensually agreed upon. Question Answer Comments Discussion of Advance Directives occurred with: Not Discussed Care Teams Garnetter Relationship Specialty Start Date End Date Kinjal Reynoso PA-C [address] [address] PCP - General Physician Airborne Mission Systems Superintendent 11/05/22 documented as of this encounter
--- OUTSIDE RECORDS SUMMARY | 2023-08-07 19:26 | External Medical Summary | Summary of Care ---
Author Name Unknown Organization [facility] Address [address] [place] [address] Phone [phone] Care Team Providers Care Tube Backer Name Role Phone Kinjal Reynoso PA-C Primary Care Provider [phone] Reason for Visit * Reason Onset Date Comments Hospital Follow-Up 07/09/2023 [facility] Encounter Details Date Type Department Care Team (Late st Contact Info) Description 07/09/[address] [phone] Trisha Trejo, RN Hospital Follow-Up ([facility]/) Allergies [...] OPIOID OVERDOSE - SEEK IMMEDIATE MEDICAL ATTENTION. [email or web address] 2 Each 3 3 Active Peptamen 1.5 Oral Liquid Administer 1000 mL daily, as directed through J Tube via feeding pump 81599 mL 11 3 Active Lansoprazole 15 MG [...] for follow up: inpatient hospitalization Admitted to: [facility], Date: 07/06/23 Discharged to: home, Date: [...] visit for follow up: [facility] Admitted to: [facility], Date: 07/06/23 Discharged to: Home, Date: 07/08/23 Diagnosis driving hospitalization: Malfunction of jejunostomy tube LVMM for patient to return call for hospital followup [facility] call. If patient calls back to the clinicplease obtain best time and number to reach patient or they can call me directly at [phone] with any questions or concerns. Please route to Trisha Trejo RN. Thank you documented in this encounter Plan of Treatment Upcoming Encounters Date Type Department Care Team (Late st Contact Info) Description 07/15/2023 8:40 AM EST [facility] [address] [place] [address] Kinjal Reynoso PA-C [address] [place] [place] [address] 08/20/2023 1:50 PM EST Telemedicine Nutrition & Weight Management, [facility] [address] [place] [address] Kaity Yap RDN [address] [place] [address] 09/20/2023 12:40 PM EDT Office Visit Nutrition & Weight Management, [facility] [address] [place] [address] Cee Santizo PA-C [address] [place] [address] Health Maintenance Due Date Last Done Comments [...] this encounter Medical Devices Implanted Type Area Employment Interviewer Device Identifier Shelf Expiration Date Model / Serial / Lot Port Implant W/8f Poly Cath - [id number] Implanted:Qty : 1 on 05/18/2023 by Juan Jose Connell, DO at OR [facility] Right: Chest CR BARD : PERIPHERAL VASCULAR [id number] 11/18/2024 [id number] / / [id number] documented as of this encounter Advance Directives [...] the patient have Health Care Power of Assembler Wire Mesh Gate? No Full Code 07/18/2021 7:04 AM 08/03/2021 4:12 PM This order reflects the patients wishes and were consensually agreed upon. Question Answer Comments Discussion of Advance Directives occurred with: Not Discussed Care Teams Tube Backer Relationship Specialty Start Date End Date Kinjal Reynoso PA-C [place] [address] PCP - General Physician Ski Maker 11/05/22 documented as of this encounter
--- OUTSIDE RECORDS SUMMARY | 2023-08-07 19:27 | External Medical Summary ---
Author Name Unknown Address Unknown Organization K1F:LABORATORY [facility] - [address] [facility]. [facility] [address] Laboratory Report Ordering Provider Test Date Status KASANDRA DELGADO 07/06/2023 22:55:54 Final hCG can serve as a screening assay for . However, early may not give a positive hCG test result. In addition, some non- women may have a hCG result slightly higher than the reference limit. Careful interpretation of the hCG with clinical history is required to determine whether the patient may be . Observation Date Value Abnormality Reference (Units ) Status Choriogonadotropin.intact +Beta subunit [Units/volume] in Serum or Plasma 07/06/2023 22:55:54 <0.1 <=1.0 (mIU/mL) Final Performing Location LABORATORY [facility] - [address] [facility] [place] [facility] [address]
--- OUTSIDE RECORDS SUMMARY | 2023-08-07 19:27 | External Medical Summary | Summary of Care ---
Author Name Unknown Organization [facility] Address [address] [place] [address] Phone [phone] Care Team Providers Care [employer] Name Role Phone Kinjal Reynoso PA-C Primary Care Provider [phone] Reason for Visit * Reason Onset Date Comments Appointment 06/18/2023 Encounter Details Date Type Department Care Team (Late st Contact Info) Description 06/18/2023 Telephone [facility] [address] [facility] [place] [phone] Kinjal Reynoso PA-C [address] [facility] [place] [address] Appointment Allergies Active Allergy Reactions Criticality Noted Date Comments Prochlorperazine Psych complications 09/26/2021 Gets very agitated Droperidol Other (Please comment) 07/19/2022 Feeling like ants are all over me Haloperidol Other (Please comment) 07/19/2022 Restless, "feels like ants are all over me" Metoclopramide Psych complications 10/02/2021 Gets very agitated Trimethobenzamide 02/02/2023 Bad reaction , patient doesn't remember the reaction documented as of this encounter (statuses as of 06/22/2023) Medications Medication Sig Dispensed Refills Start Date [...] .COM/WATCH?/=/26CDA O4ACI 2 Each 3 03/31/2023 Active Additional Information Patient not taking.Reported on 05/18/2023 Peptamen 1.5 Oral Liquid Administer 1000 mL daily, as directed through J Tube via feeding pump [id number] mL 11 04/12/2023 Active Lansoprazole 15 MG [...] too strong. 90 Tablet 0 06/14/2023 Active Ciprofloxacin HCl 500 MG Oral Tablet (Cipro) Take 1 Tablet by mouth in the morning and 1 Tablet before bedtime - do all this for 10 days. 20 Tablet 0 06/16/2023 06/27/2023 Active oxyCODONE HCl 15 MG Oral Tablet (Roxicodone)Indic ations:Chronic abdominal pain,Chronic female pelvic pain Take 1 Tablet by mouth every 6 hours as needed for Pain, Severe or Pain, Moderate. Continuation of Care. Weaning down. Dispense 24 tablets for 7 day supply. Next refill due 06/28/22. 24 Tablet 0 06/18/2023 Active documented as of this encounter (statuses as of 06/22/2023) Active Problems Problem Noted Date Diagnosed Date Gastroparesis 02/02/2023 Post concussive syndrome 10/23/2022 Adjustment disorder with mixed anxiety and depre ssed mood 10/23/2022 Chronic abdominal pain 10/23/2022 Chronic female pelvic pain 09/24/2022 Illness anxiety disorder 08/12/2022 Chronic, continuous use of opioids 07/19/2022 Abdominal pain 07/19/2022 Ovarian cystic mass 05/28/2022 Retention of urine 03/17/2022 Adjustment disorder with depressed mood 01/17/20 PTSD (post-traumatic stress disorder) 01/16/2022 Gastroesophageal reflux dise ase with esophagitis without hemorrhage 07/23/2021 Chronic pelvic pain in female 07/23/2021 Status post hysterectomy 05/01/2021 Dysmenorrhea 11/03/2020 Endometriosis 10/30/2020 Medical marijuana use 03/29/2020 Endometriosis 06/06/2019 documented as of this encounter (statuses as of 06/22/2023) Resolved Problems Problem Noted Date Diagnosed Date [...] as of this encounter (statuses as of 06/22/2023) Immunizations Name Administration Dates Next Due DTaP [...] encounter Miscellaneous Notes * Telephone Encounter - Laila Schneider LPN - 06/22/2023 11:34 AM EST See other T/E thank you. * Telephone Encounter - Christie Ruelas LPN - 06/18/2023 11:[address] Yap , please advise on best course of treatment for this person. You have no openings in Wound Care until the end of June. Not sure if General Surgery may better suit for quicker appointment? * Telephone Encounter - Layne Bradshaw OSA - 06/18/2023 11:26 AM EST Please advise if okay to schedule with Dr. Yap. * Telephone Encounter - Cydney Roberts OSA - 06/18/2023 11:09 AM EST 3 day urgent wound care referral placed by PCP. Please assist with scheduling. Thanks! documented in this encounter Plan of Treatment Upcoming Encounters Date Type Department Care Team (Late st Contact Info) Description 07/15/2023 8:40 AM EST Office Visit [facility] [address] [phone] Kinjal Reynoso PA-C [address] [place] [address] [address] 08/20/2023 1:50 PM EST Telemedicine Nutrition & Weight Management, [facility] [address] [address] Kaity Yap RDN [address] [place] [address] 09/20/2023 12:40 PM EDT Office Visit Nutrition & Weight Management, [facility] [address] [place] [address] Cee Santizo PA-C [address] [place] [address] Health Maintenance Due Date Last Done Comments [...] this encounter Medical Devices Implanted Type Area Client Relationship Manager Device Identifier Shelf Expiration Date Model / Serial / Lot Port Implant W/8f Poly Cath - [id number] Implanted:Qty : 1 on 05/18/2023 by Juan Jose Connell, DO at OR [facility] Right: Chest CR BARD : PERIPHERAL VASCULAR [id number] 11/18/2024 [id number] / / [id number] documented as of this encounter Advance Directives Latest Code Status on File Code Status Date Activated Date Inactivated Comments Full Code 02/02/2023 10:02 AM 02/03/2023 3:24 PM This order reflects the patients wishes and were consensually agreed upon. Question Answer Comments Discussion of Advance Directives occurred with: Patient Code Status History Code Status Date Activated Date Inactivated Comments Full Code 07/19/2022 9:49 AM 08/12/2022 10:43 [...] the patient have Health Care Power of Lecturer In Computer Science? No Full Code 07/18/2021 7:04 AM 08/03/2021 4:12 PM This order reflects the patients wishes and were consensually agreed upon. Question Answer Comments Discussion of Advance Directives occurred with: Not Discussed Care Teams [employer] Relationship Specialty Start Date End Date Kinjal Reynoso PA-C [address] [place] [id number] PCP - General Physician Biologics Specialist 11/05/22 documented as of this encounter
--- OUTSIDE RECORDS SUMMARY | 2023-08-07 19:27 | External Medical Summary | Summary of Care ---
Author Name Unknown Organization [facility] Address [address] [place] [address] Phone [phone] Care Team Providers Care Collections Assistant Name Role Phone Edgardo Kinjal Britt PA-C Primary Care Provider [phone] Reason for Visit * Reason Comments Wound Care * Auth/Cert Specialty Diagnoses / Procedures Referred By Carmen t Referred To Contact Referral ID Status Reason Start Date Expiration Date Visits Re quested Visits Authorized [id number] Encounter Details Date Type Department Care Team (Late st Contact Info) Description 06/19/2023 7:00 PM EST - 06/19/2023 8:10 PM EST Emergency [facility] Emergency [facility] ([facility]) [address] [place] [address] Maylin Sharif MD [address] [place] [address] Abdominal wound dehiscence, initial encounter (Primary Dx) Discharge Disposition: Home - Self [...] as of this encounter (statuses as of 06/20/2023) Medications Medication Sig Dispensed Refills Start Date [...] OPIOID OVERDOSE - SEEK IMMEDIATE MEDICAL ATTENTION. [email or web address] [email or web address] 2 Each 3 03/31/2023 Active Additional Information Patient not taking.Reported on 05/18/2023 Peptamen 1.5 Oral Liquid Administer 1000 mL daily, as directed through J Tube via feeding pump [id number] mL 11 04/12/2023 Active Lansoprazole 15 MG [...] as of this encounter (statuses as of 06/20/2023) Active Problems Problem Noted Date Diagnosed Date [...] as of this encounter (statuses as of 06/20/2023) Resolved Problems Problem Noted Date Diagnosed Date Resolved Date Abdominal pain 02/02/2023 02/03/2023 Intractable vomiting 02/02/2023 023 Duodenitis 02/02/2023 02/03/2023 Ileus 02/02/2023 02/03/2023 Nausea and vomiting 10/23/2022 02/04/20 23 Intractable nausea and vomiting 07/19/2022 08/12/2022 History of ventricular tachycardia 09/29/2021 10/02/2021 Overview: nonsustained 07/26/2021 Illness anxiety disorder 07/30/202[address] Severe protein-energy malnutrition 07/25/2021 07/21/2022 Loss of weight 07/23/2021 10/02/2021 Mood disorder 06/06/2019 03/29/2020 Chest pain 08/01/2015 06/06/2019 Acute pharyngitis 04/16/2015 06/06/2019 Asthma, mild persistent 02/14/201405/21 documented as of this encounter (statuses as of 06/20/2023) Immunizations Name Administration Dates Next Due DTaP [...] 8:52 AM EST Sexual Orientation Lesbian 08/14/2022 8 :52 AM EST Job Start Date Occupation Industry Not on file Not on file Not on file documented as of this encounter Last Filed Vital Signs Vital Sign Reading Time Taken Comments Blood Pressure 129/84 06/19/2023 7:07 PM EST Pulse 84 06/19/2023 7:07 PM EST Temperature 36.5 C (97.7 F) 06/19/2023 5:46 PM ES T Respiratory Rate 18 06/19/2023 7:07 PM EST Oxygen Saturation 100% 06/19/2023 5:46 PM EST Inhaled Oxygen Concentration - - Weight 73.6 kg (162 lb 3.2 oz) 06/19/2023 5:46 P M EST Height 157.5 cm (5' 2") 06/19/2023 5:46 PM EST Body Mass Index 29.67 06/19/2023 5:46 PM EST documented in this encounter Functional [...] No 02/02/2023 documented as of this encounter ED Notes * Maylin Sharif MD - 06/19/2023 7:59 PM EST Images from the original note were not included. HISTORY OF PRESENT ILLNESS Anirudh Peñaloza is a 22 year old female who presents to the ED for evaluation of Wound Care. The patient was seen at 06/19/231943. The patient says she has an infection. Now the wound opening has increased in size and she has worsening pain and nausea. She had removal of a prior jejunostomy tube and replacement of a new jejunostomy tube on 06/08/2023t [facility]. She says she was seen here for abscess of the abdominal wall June 14. It was underneath her prior incision, then a small hole opened up on June 16. She is on antibiotics. She says she has been packing the wound once a day with plain gauze dressing. She is not scheduled to see her surgeon at [facility] until June 30. Family member at bedside Review of Systems Constitutional: Negative for fever. HENT: Negative for congestion, ear pain, rhinorrhea and sore throat. Respiratory: Negative for cough and shortness of breath. Cardiovascular: Negative for chest pain and leg swelling. Gastrointestinal: Positive for abdominal pain and nausea. Negative for constipation, diarrhea and vomiting. Genitourinary: Negative for dysuria, frequency and hematuria. Musculoskeletal: Negative for back pain and myalgias. Skin: Positive for wound. Negative for rash. Neurological: Negative for dizziness, weakness, light-headedness and headaches. All other systems reviewed and are negative. The patient's allergies, past history, and medications were reviewed. PHYSICAL EXAM Initial Vitals (see all): BP 129/75 | Pulse 95 | Resp 16 | Temp 97.7 | O2 100 %, Room Air, None | Weight 73.57 kg | Height 157.5 cm | BMI 29.67 kg/m2 Initial Pain Assessment (see all): 8 (severe pain)/100/10, location: abdominal pain ([facility] Adult Scale 0-10) Physical Exam Vitals and nursing note reviewed. Constitutional: General: She is in acute distress (Mild. Somewhat anxious). HENT: Head: Normocephalic and atraumatic. Cardiovascular: Rate and Rhythm: Normal rate and regular rhythm. Heart sounds: No murmur heard. No gallop. Pulmonary: Effort: Pulmonary effort is normal. No respiratory distress. Breath sounds: Normal breath sounds. Abdominal: General: Bowel sounds are normal. There is no distension. Palpations: Abdomen is soft. Tenderness: There is abdominal tenderness (Supraumbilical). There is guarding (Voluntary, supraumbilical). There is no rebound. Comments: The base of the abdominal wound is intact with gentle pressure using sterile cotton tip applicator Musculoskeletal: General: No swelling, tenderness or deformity. Normal range of motion. Cervical back: Normal range of motion and neck supple. No muscular tenderness. Right lower leg: No edema. Left lower leg: No edema. Lymphadenopathy: Cervical: No cervical adenopathy. Skin: General: Skin is warm and dry. Coloration: Skin is not cyanotic. Findings: Wound (Mid abdomen as noted) present. No erythema or rash. Nails: There is no clubbing. Neurological: General: No focal deficit present. Mental Status: She is alert and oriented to person, place, and time. GCS: GCS eye subscore is 4. GCS verbal subscore is 5. GCS motor subscore is 6. Psychiatric: Mood and Affect: Mood is anxious. Speech: Speech normal. Behavior: Behavior normal. Behavior is cooperative. PROCEDURES AND TREATMENTS ED Orders | ED Results MEDICAL DECISION MAKING Nursing notes and vital signs were reviewed. Differential Diagnoses Based on my history, physical exam, and evaluation, the differential includes, but is not limited, to the following diagnoses: Wound dehiscence, doubt peritoneal dehiscence, doubt abscess. Risk Prescription drug management. Clinical Impressions Abdominal wound dehiscence, initial encounter Disposition Discharged. The patient's condition at disposition was: stable. Maylin Sharif This chart was completed in part utilizing [employer] Speech Voice Recognition Software. Grammatical errors, random word insertions, prounoun errors, and incomplete sentences are an occasional consequence of this system due to software limitations, ambient noise, and hardware issues. Any formal questions or concerns about the content, text, or information contained within the body of this dictation should be directly addressed to the provider for clarification. Maylin Sharif MD 06/19/2023 11:42 PM * Kenny Lovell RN - 06/19/2023 5:48 PM EST Patient arrives to the ED for concerns and infection of her wound. Relates she was seen by this facility for her wound at the onset. States the wound has been getting progressively worse since. Also reports worsening pain and nausea associated with her symptoms. documented in this encounter Miscellaneous Notes * ED Floral Department Specialist Note - Dedra Salmon RN - 06/19/2023 8:09 PM EST 2008. Wet to dry dressing applied to wound. Pt verbalized understanding of discharge instructions. Advised to not operate or drive machinery after use of narcotics. Advised to follow up with surgery and wound care referral and to return for any worsening symptoms. Pt ambulated steadily out of unit with belongings. * ED Floral Department Specialist Note - Evelyn Llanos RN - 06/19/2023 8:02 PM EST 1940: patient concerned her wound on her abdomen is getting "worse." States it is getting longer and wider. States she was here recently and had it checked and was started on clindamycin in which shehas been taking. Patient has been packing her wound at home. Patient removed packed for this nurse to see. Wound bed is pink and moist. There is some purulent drainage at the base of the wound but no surrounding redness, warmth or swelling. Patient reports the wound is from the incision site for the placement of her j-tube that was placed within this past month. Patient denies fevers/chills. Doesreport pain and nausea. Abdomen is soft, non-tender with active bowel sounds to all quadrants. Patient has been taking tylenol and oxy at home for symptom control. * Pt Handout (on AVS) - Maylin Sharif MD - 06/19/2023 7:59 PM EST [id number] Understanding Wound Separation After Surgery (Wound Dehiscence) Wound dehiscence is when a surgical incision that has been stitched or stapled closed comes open again. This most often occurs with surgery done on the belly (abdomen). Partial dehiscence is when only the outer (superficial) layers of tissue separate. Complete dehiscence is when all layers of the wound tissue layers are . In this case, you may be able to see the underlying tissues and organs. Sometimes, organs can stick out of the opening. How to say it [id number] How wound dehiscence happens A wound can become when stress or tension overcomes the strength of the stitches or vianey used to close the incision. This may happen from coughing, lifting, strenuous exercise, or other movements or actions. It can also occur if the wound was not closed correctly. It can also happen towounds that don't heal correctly. This can occur in people who smoke or have certain chronic illnesses. Symptoms of wound dehiscence Symptoms of wound separation after surgery include: Part or all of the wound is open [place] or stitches are broken Pain Feeling of pulling or ripping like something popped Drainage or bleeding from the wound, most often a clear to pink fluid Signs of wound infection such as fever, redness, swelling, bad smelling discharge, or chills Treatment for wound dehiscence Treatment for wound dehiscence depends of how large the opening is, whether there is infection, howsoon the incision opened after the surgery, and whether you have other conditions that make it harder for the wound to heal. This might include diabetes, smoking, and poor nutrition. Treatment includes: Pain medicine Antibiotics to treat infection Surgery to remove or infected tissue (surgical debridement) Wet-to-dry dressing. For this treatment, the wound is filled with a wet or moist gauze. Then it?s covered with a dry dressing. This helps the wound heal from the bottom up. Vacuum-assisted closure of the wound. A wound vac uses air pressure to help the wound heal more quickly by pulling fluid out of the wound and helping new tissue to grow. Additional surgery. In some cases, the surgeon makes another attempt to close the wound. Your healthcare provider may refer you to specialists at a wound clinic for care. There you may seea wound care doctor or nurse who will help with bandaging, cleaning, and monitoring the wound. Possible complications of a dehisced wound Possible complications of wound dehiscence include: Infection. Any open wound is at risk of becoming infected. Wound evisceration. This is when internal organs stick out through the incision. This is a medical emergency. When to call your healthcare provider Call your healthcare provider if you have any of these: Pain, redness, swelling, or bleeding that gets worse Smelly fluid from the incision, or changes in color of the drainage from the incision Fever of 100.4F ( 38C) or higher, or as advised by your healthcare provider Shaking or chills Vomiting or nausea that doesn't go away Numbness, coldness, or tingling around the incision Changes in skin color around the incision Opening of the wound Stitches that pull apart [place] that fall out Last Reviewed Date: 12/19/202019993258-1933 [employer]. All rights reserved. This information is not intended as a substitute for professional medical care. Always follow your healthcare professional's instructions. documented in this encounter Plan of Treatment Upcoming Encounters Date Type Department Care Team (Late st Contact Info) Description 07/15/2023 8:40 AM EST Office Visit [facility] [address] [place] [phone] Kinjal Reynoso PA-C [address] [phone] 08/20/2023 1:50 PM EST Telemedicine Nutrition & Weight Management, [facility] [address] [address] Kaity Yap RDN [address] [place] [address] 09/20/2023 12:40 PM EDT Office Visit Nutrition & Weight Management, [facility] [address] [place] [address] Cee Santizo PA-C [address] [place] [address] Health Maintenance Due Date Last Done Comments [...] this encounter Medical Devices Implanted Type Area Manager Auto Device Identifier Shelf Expiration Date Model / Serial / Lot Port Implant W/8f Poly Cath - [id number] Implanted:Qty : 1 on 05/18/2023 by Juan Jose Connell DO at OR [facility] Right: Chest CR BARD : PERIPHERAL VASCULAR [id number] 11/18/2024 [id number] / / [id number] documented as of this encounter Visit Diagnoses Diagnosis Abdominal wound dehiscence, initial encounter- Primary documented in this encounter Administered Medications Inactive Administered Medications - up to 3 most recent administrations Medication Order MAR Action Action Date Dose Rate Site ondansetron ODT (Zofran) tab 4 mg 4 mg, On Tongue, ONCE, On 06/19/23 at 2030, For 1 dose Given 06/19/2023 8:08 PM EST 4 mg oxyCODONE-acetaminophen 5-325 mg per tab (Percocet) 1 Tablet 1 Tablet, Oral, ONCE, On 06/19/23 at 2030, For 1 dose, Maximum of 4 grams (4000 mg) of acetaminophen per day Given 06/19/2023 8:08 PM EST 1 Tablet documented in this encounter Active and Recently Administered Medications Times are shown in EST. Scheduled Medication Order 06/17/2023 06/18/2023 06/19/2023 ondansetron ODT (Zofran) tab 4 mg (COMPLETED) 4 mg, On Tongue, ONCE, On 06/19/23 at 2030, For 1 dose 2007 (Given - Provid er: Dedra Salmon RN) oxyCODONE-acetaminophen 5-325 mg per tab (Percocet) 1 Tablet (COMPLETED) 1 Tablet, Oral, ONCE, On 06/19/23 at 2030, For 1 dose, Maximum of 4 grams (4000 mg) of acetaminophen per day 2007 (Given - Provid er: Dedra Salmon RN) documented in this encounter Advance Directives [...] the patient have Health Care Power of Medicinal Plant Picker? No Full Code 07/18/2021 7:04 AM 08/03/2021 4:12 PM This order reflects the patients wishes and were consensually agreed upon. Question Answer Comments Discussion of Advance Directives occurred with: Not Discussed Care Teams Collections Assistant Relationship Specialty Start Date End Date Kinjal Reynoso PA-C [address] [phone] PCP - General Physician Chemical Research Technician 11/05/22 documented as of this encounter
--- OUTSIDE RECORDS SUMMARY | 2023-08-07 19:27 | External Medical Summary ---
Author Name Unknown Address Unknown Organization [facility] - [address] [place] [address] Laboratory Report Ordering Provider Test Date Status KASANDRA DELGADO 07/06/2023 22:55:54 Final Observation Date Value Abnormality Reference (Units ) Status BUN 07/06/2023 22:55:54 7 6-20 (mg/dL) Final Creatinine 07/06/2023 22:55:54 0.7 0.5-1.0 (mg/dL) Final Glomerular filtration rate/1.73 sq M.predicted [Volume Rate/Area] in Serum, Plasma or Blood by Creatinine-based formula (CKD-EPI) 07/06/2023 22:55:54 >90 >=60 (mL/min) Final eGFR is calculated based on the CKD-EPI 2020 equation SODIUM 07/06/2023 22:55:54 138 135-146 (m mol/L) Final Potassium 07/06/2023 22:55:54 3.7 3.5-5.1 (m mol/L) Final Cl 07/06/2023 22:55:54 102 98-107 (mm ol/L) Final CO2 07/06/2023 22:55:54 25 22-32 (mmo l/L) Final Anion gap 07/06/2023 22:55:54 11 7-15 (mmol /L) Final Glucose 07/06/2023 22:55:54 123 Above high normal 70 -120 (mg/dL) Final Calcium 07/06/2023 22:55:54 8.7 8.4-10.2 ( mg/dL) Final Performing Location [facility] - [address] [place] [address]
--- OUTSIDE RECORDS SUMMARY | 2023-08-07 19:27 | External Medical Summary | Summary of Care ---
Author Name Unknown Organization [facility] Address [address] [place] [address] Phone [phone] Care Team Providers Care Inclusion Manager Name Role Phone Kinjal Reynoso PA-C Primary Care Provider [phone] Encounter Details Date Type Department Care Team (Late st Contact Info) Description 06/18/2023 Telephone [facility] [place] [address] [place] [address] Kinjal Reynoso PA-C [address] [facility] [address] Allergies Active Allergy Reactions Criticality Noted Date [...] as of this encounter (statuses as of 06/18/2023) Medications Medication Sig Dispensed Refills Start Date [...] directed through [employer] via feeding pump 96849 mL 11 04/12/2023 Active Lansoprazole 15 MG [...] as of this encounter (statuses as of 06/18/2023) Active Problems Problem Noted Date Diagnosed Date [...] as of this encounter (statuses as of 06/18/2023) Resolved Problems Problem Noted Date Diagnosed Date [...] as of this encounter (statuses as of 06/18/2023) Immunizations Name Administration Dates Next Due DTaP [...] encounter Miscellaneous Notes * Telephone Encounter - Cydney Roberts OSA - 06/18/2023 11:09 AM EST 3 day urgent wound care referral placed by PCP. Please assist with scheduling. Thanks! documented in this encounter Plan of Treatment Upcoming Encounters Date Type Department Care Team (Late st Contact Info) Description 07/15/2023 8:40 AM EST Office Visit Family Jeff, [place] [phone] Kinjal Reynoso PA-C [address] [place] [address] [id number] 08/20/2023 1:50 PM EST Telemedicine Nutrition & Weight Management, [facility] [address] [place] [address] Kaity Yap RDN [address] [place] [address] 09/20/2023 12:40 PM EDT Office Visit Nutrition & Weight Management, [facility] [address] [place] [address] Cee Santizo PA-C [address] [place] [address] Health Maintenance Due Date Last Done Comments [...] this encounter Medical Devices Implanted Type Area Retail Product Advisor Device Identifier Shelf Expiration Date Model / Serial / Lot Port Implant W/8f Poly Cath - [id number] Implanted:Qty : 1 on 05/18/2023 by Juan Jose Connell, at OR [facility] Right: Chest CR BARD : [employer] [id number] 11/18/2024 [id number] / / [id number] documented as of this encounter Advance Directives [...] the patient have Health Care Power of Diesel Machinist? No Full Code 07/18/2021 7:04 AM 08/03/2021 4:12 PM This order reflects the patients wishes and were consensually agreed upon. Question Answer Comments Discussion of Advance Directives occurred with: Not Discussed Care Teams Inclusion Manager Relationship Specialty Start Date End Date Kinjal Reynoso PA-C [address] [place] [address] PCP - General Physician Hide Dropper 11/05/22 documented as of this encounter
--- OUTSIDE RECORDS SUMMARY | 2023-08-07 19:27 | External Medical Summary ---
Author Name Unknown Address Unknown Organization [id number]:[facility] - [address] [address] Laboratory Report Ordering Provider Test Date Status KASANDRA DELGADO 07/06/2023 22:55:54 Final Observation Date Value Abnormality Reference (Units ) Status Lactic Acid 07/06/2023 22:55:54 0.7 0.4-2.0 (mmol/L) Final Performing Location [facility] - [address] [address]
--- OUTSIDE RECORDS SUMMARY | 2023-08-07 19:27 | External Medical Summary | Summary of Care ---
Author Name Unknown Organization [facility] Address [address] [place] [address] Phone [phone] Care Team Providers Care Fast Food Delivery Driver Name Role Phone Edgardo Kinjal Britt PA-C Primary Care Provider [phone] Reason for Visit * Reason Comments Abdominal Pain * Auth/Cert Specialty Diagnoses / Procedures Referred By Carmen t Referred To Contact Referral ID Status Reason Start Date Expiration Date Visits Re quested Visits Authorized [id number] Encounter Details Date Type Department Care Team (Late st Contact Info) Description 06/27/2023 12:57 PM EST - 06/27/2023 5:39 PM EST Emergency [facility] Emergency Department ([facility]) [address], [place] [id number] Maylin Sharif MD [address] [place], [place] [id number] Recurrent abdominal pain (Primary Dx); Abdominal pain, left lower quadrant Discharge Disposition: Home - Self Care Allergies [...] as of this encounter (statuses as of 06/28/2023) Medications Medication Sig Dispensed Refills Start Date [...] OPIOID OVERDOSE - SEEK IMMEDIATE MEDICAL ATTENTION. [email or web address] Each 3 03/31/2023 Active Additional Information Patient not taking.Reported on 05/18/2023 Peptamen 1.5 Oral Liquid Administer 1000 mL daily, as directed through J Tube via feeding pump 17575 mL 11 04/12/2023 Active Lansoprazole 15 MG [...] 90 Tablet 0 06/14/2023 Active oxyCODONE HCl 15 MG Oral Tablet (Roxicodone)Indic ations:Chronic abdominal pain,Chronic female pelvic pain Take 1 Tablet by mouth every 6 hours as needed for Pain, Severe or Pain, Moderate. Continuation of Care. Weaning down. Dispense 24 tablets for 7 day supply. Next refill due 06/28/22. 24 Tablet 0 06/18/2023 Active Ciprofloxacin HCl 500 MG Oral Tablet (Cipro) Take 1 Tablet by mouth in the morning and 1 Tablet before bedtime - do all this for 10 days. 20 Tablet 0 06/16/2023 06/27/2023 documented as of this encounter (statuses as of 06/28/2023) Active Problems Problem Noted Date Diagnosed Date [...] as of this encounter (statuses as of 06/28/2023) Resolved Problems Problem Noted Date Diagnosed Date [...] as of this encounter (statuses as of 06/28/2023) Immunizations Name Administration Dates Next Due DTaP [...] Sign Reading Time Taken Comments Blood Pressure 133/94 06/27/2023 5:00 PM EST Pulse 85 06/27/2023 5:00 PM EST Temperature 36.4 C (97.5 F) 06/27/2023 1 2:53 PM EST Respiratory Rate 18 06/27/2023 5:00 PM EST Oxygen Saturation 99% 06/27/2023 12: 53 PM EST Inhaled Oxygen Concentration - - Weight 72.5 kg (159 lb 12.8 oz) 024 12:53 PM EST Height 154.9 cm (5' 1") 06/27/2023 12:5 3 PM EST Body Mass Index 30.19 06/27/2023 12:53 PM EST documented in this encounter Functional [...] shopping? (15 years old or older) No 08/15/20 23 Cognitive Status Response Date of Assessm ent Because of a physical, menta l, or emotional condition, do you have serious difficulty concentrating, remembering, or making decisions? (5 years old or older) No 02/02/2023 documented as of this encounter ED Notes * Maylin Sharif MD - 06/27/2023 1:06 PM EST Images from the original note were not included. HISTORY OF PRESENT ILLNESS Anirudh Peñaloza is a 22 year old female who presents to the ED for evaluation of Abdominal Pain. The patient was seen at 06/27/23 1258. Really bad abdominal pain, her entire abdomen, since04:00 this morning. Dry heaves, nausea. Slight headache. Last bowel movement was yesterday. Low back pain. Burning sensation at her incisional abdominal wound. She saw her surgeon at [facility] 2 days ago and was advised to continue packing it 1 more week. She completed a course of antibiotics for that wound. No procedure since her last ED visit here She had developed dehiscence of and incision after her J-tube was replaced at a different site on her abdominal wall Review of Systems Constitutional: Negative for fever. HENT: Negative for congestion, ear pain, rhinorrhea and sore throat. Respiratory: Negative for cough and shortness of breath. Cardiovascular: Negative for chest pain and leg swelling. Gastrointestinal: Positive for abdominal pain, nausea and vomiting. Negative for constipation and diarrhea. Genitourinary: Negative for dysuria, frequency and hematuria. Musculoskeletal: Positive for back pain. Negative for myalgias. Skin: Positive for wound. Negative for rash. Neurological: Positive for headaches. Negative for dizziness, weakness and light-headedness. All other systems reviewed and are negative. The patient's allergies, past history, and medications were reviewed. PHYSICAL EXAM Initial Vitals (see all): BP 139/94 | Pulse 134 | Resp 16 | Temp 97.5 | O2 99 %, Room Air, None | Weight 72.49 kg | Height 154.9 cm | BMI 30.19 kg/m2 Initial Pain Assessment (see all): 8 (severe pain)/10, location: abdomen ([facility] Adult Scale 0-10) Physical Exam Vitals and nursing note reviewed. Constitutional: General: She is in acute distress (Moderate. Anxious and tearful, shivering at times). HENT: Head: Normocephalic and atraumatic. Cardiovascular: Rate and Rhythm: Regular rhythm. Tachycardia present. Heart sounds: Murmur (Throughout the precordium) heard. Systolic murmur is present with a grade of 3/6. No gallop. Pulmonary: Effort: Pulmonary effort is normal. No respiratory distress. Breath sounds: Normal breath sounds. Abdominal: General: Bowel sounds are normal. There is no distension. Palpations: Abdomen is soft. Tenderness: There is abdominal tenderness in the left lower quadrant. There is guarding (Left lowerabdomen). There is no rebound. Musculoskeletal: General: No swelling, tenderness or deformity. Normal range of motion. Cervical back: Normal range of motion and neck supple. No muscular tenderness. Right lower leg: No edema. Left lower leg: No edema. Lymphadenopathy: Cervical: No cervical adenopathy. Skin: General: Skin is warm and dry. Coloration: Skin is not cyanotic. Findings: No rash. Nails: There is no clubbing. Neurological: General: No focal deficit present. Mental Status: She is alert and oriented to person, place, and time. GCS: GCS eye subscore is 4. GCS verbal subscore is 5. GCS motor subscore is 6. Psychiatric: Mood and Affect: Mood is anxious. Affect is tearful. Speech: Speech normal. Behavior: Behavior normal. Behavior is cooperative. PROCEDURES AND TREATMENTS ED Orders | ED Results MEDICAL DECISION MAKING Nursing notes and vital signs were reviewed. ED Course as of 06/27/23 2329 Sun Jun 27, 2023 1355 BP: 136/91 [DH] 1355 Pulse: 111 [DH] 1403 Per ED nursing staff the patient declined hydroxyzine, advising that it gives her restless legs and that the patient herself does not feel anxious [DH] 1423 Reassessment: Patient appears less anxious, more comfortable. She says she has noticed black spots in her J-tube port reservoir recently that do not move. She does get tube feedings and she saysshe does flush the tube after tube feedings. There are several adherent black appearing spots inside the reservoir of the J tube just distal to the ports, patient was advised to not use the J- tube and discuss this with her surgeon/send photographs [DH] 1500 BP: 124/95 [DH] 1500 Pulse: 99 [DH] 1600 Per ED nursing staff the patient is requesting additional pain medication [DH] 1642 Unremarkable urinalysis [DH] 1702 Reassessment: Unchanged other vital signs have improved, not tachycardic. Patient still has tenderness and guarding left lower abdomen. Patient declines CT imaging at this time. Unclear etiologyof symptoms discussed with patient. She says she does do cognitive therapy and other things, in addition to her pain medication, to manage her pain. And her primary care provider manages her pain currently. Patient will return if her symptoms otherwise worsen. She was advised to continue her current medication regimen as prescribed. And to call her surgeon tomorrow to discuss J tube finding. [DH] ED Course User Index [] Maylin Sharif MD Differential Diagnoses Based on my history, physical exam, and evaluation, the differential includes, but is not limited, to the following diagnoses: Chronic pain syndrome, adhesions, doubt migration of tube. Doubt perforation, doubt bowel obstruction. 06/14/23 CT abdomen and pelvis with IV contrast: IMPRESSION: 1. Jejunostomy tube is within proper position and no definite drainable fluid collection. 2. Mild cellulitis changes identified. 3. Injected contrast is within the jejunal lumens. 4. Moderate constipation. 5. 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 Radiology: ordered. Risk Prescription drug management. Clinical Impressions Recurrent abdominal pain Abdominal pain, left lower quadrant Disposition Discharged. The patient's condition at disposition was: stable. Maylin Sharif This chart was completed in part utilizing [employer] Voice [employer]ognition Software. Grammatical errors, random word insertions, prounoun errors, and incomplete sentences are an occasional consequence of this system due to software limitations, ambient noise, and hardware issues. Any formal questions or concerns about the content, text, or information contained within the body of this dictation should be directly addressed to the provider for clarification. Maylin Sharif MD 06/27/2023 11:30 PM * Gary Gonzalez RN - 06/27/2023 12:55 PM EST Pt states really bad abdominal pain starting this morning. documented in this encounter Miscellaneous Notes * Pt Handout (on AVS) - Maylin Sharif MD - 06/27/2023 5:15 PM EST [id number] Unknown Causes of Abdominal Pain(Adult) The exact cause of your belly (abdominal) pain is not clear. Your exam and tests don't suggest a dangerous cause at this time. This does not mean that this is something to worry about. Everyone likesto know the exact cause of the problem. But sometimes with belly pain, there is no clear-cut cause,and this could be a good thing. Your symptoms can be treated, and you should feel better. Your condition does not seem serious now. But sometimes the signs of a serious problem may take more time to appear. For this reason, it's important for you to watch for any new symptoms, problems, or worsening of your condition. Over the next few days, the abdominal pain may come and go. Or it may be constant. Other common symptoms can include nausea and vomiting. Sometimes it can be difficult to tell if you feel nauseous. You may just feel bad and not connect that feeling to nausea. Constipation, diarrhea, and a fever maygo along with the pain. The pain may continue even if treated correctly over the following days. Depending on how things go, sometimes the cause can become clear and you may need more or different treatment. You may also need other evaluations, medicines, or tests. Home care Your healthcare provider may prescribe medicine for pain, symptoms, or an infection. Follow the healthcare provider's instructions for taking these medicines. General care Rest as much as you can until your next exam. No strenuous activities. Try to not do anything that may have caused your symptoms. This might be not taking any medicines unless otherwise directed by your healthcare provider. It might be not eating certain foods or doing certain activities. Find positions that ease discomfort. A small pillow placed on your belly may help relieve pain. Something warm on your belly such as a heating pad may help, but be careful not to burn yourself. Diet Don?t force yourself to eat, especially if having cramps, vomiting, or diarrhea. Water is important so you don't get dehydrated. Soup may also be good. Sports drinks may also help, especially if they are not too acidic. Don't drink sugary drinks as this can make things worse. Take liquids in small amounts. Don?t guzzle them. Caffeine sometimes makes the pain and cramping worse. Don?t take dairy products if you have vomiting or diarrhea. Don't eat large amounts at a time. Eat several small meals during the day instead of 2 or 3 larger meals. Wait a few minutes between bites. Eat a diet low in fiber (called a low-residue diet). Foods allowed include refined breads, whiterice, fruit and vegetable juices without pulp, tender meats. These foods will pass more easily through the intestine. Don?t have whole-grain foods, whole fruits and vegetables, meats, seeds and nuts, fried or fattyfoods, dairy, alcohol and spicy foods until your symptoms go away. Follow-up care Follow up with your healthcare provider, or as advised, if your pain does not begin to improve in the next 24 hours. Call 911 Call 911 if any of these occur: Trouble breathing Confusion Fainting or loss of consciousness Rapid heart rate Seizure When to seek medical advice Call your healthcare provider right away if any of these occur: Pain gets worse or moves to the right lower abdomen New or worsening vomiting or diarrhea Swelling of the abdomen Unable to pass stool for more than 3 days Fever of 100.4F (38C) or higher, or as directed by your healthcare provider Blood in vomit or bowel movements (dark red or black color) Yellow color of eyes and skin (jaundice) Weakness, dizziness Chest, arm, back, neck, or jaw pain Can't keep down medicines, liquids, or water because of too much vomiting If you have a vagina: unexpected vaginal bleeding or missed period Last Reviewed Date: 04/21/202119995619-1778 [employer]. All rights reserved. This information is not intended as a substitute for professional medical care. Always follow your healthcare professional's instructions. * ED Auto Garage Mechanic Note - Avril Lopez RN - 06/27/2023 2:25 PM EST Patient medicated per AUG. Pointed out black fisher in her J tube and asked what they were. Mentioned it to provider as this nurse was unable to answer documented in this encounter Plan of Treatment Upcoming Encounters Date Type Department Care Team (Late st Contact Info) Description 07/15/2023 8:40 AM EST Office Visit [facility] [place] [address] [phone] Kinjal Reynoso PA-C [address] [phone] 08/20/2023 1:50 PM EST Telemedicine Nutrition & Weight Management, [facility] [address] [place] [address] Kaity Yap RDN [address] [place] [id number] 09/20/2023 12:40 PM EDT Office Visit Nutrition & Weight Management, [facility] [address] [phone] Cee Santizo PA-C [address] [place] [address] Health Maintenance Due Date Last Done Comments [...] this encounter Medical Devices Implanted Type Area Price Analyst Device Identifier Shelf Expiration Date Model / Serial / Lot Port Implant W/8f Poly Cath - [id number] Implanted:Qty : 1 on 05/18/2023 by Juan Jose Connell DO at [facility] Right: Chest CR BARD : PERIPHERAL VASCULAR [id number] 11/18/2024 [id number] / / [id number] documented as of this encounter Procedures Procedure Name Priority Date/Time Associated Diagnosis Comments URINALYSIS, REFLEX TO MICROSCOPIC STAT 06/27/2023 4:13 PM EST EXTRA MEEHAN TOP Routine 06/27/2023 3:05 PM EST EXTRA GREEN TOP WITH GEL Routine 06/27/2023 3:05 PM EST EXTRA TUBES Routine 06/27/2023 3:05 PM EST DIFFERENTIAL, AUTOMATED STAT 06/27/2023 3:05 PM EST BASIC METABOLIC PANEL STAT 06/27/2023 3:05 PM EST CBC STAT 06/27/2023 3:05 PM EST CBC STAT 06/27/2023 3:05 PM EST XR ABDOMEN OBSTRUCT SERIES W CHEST 1 VIEW STAT 06/27/2023 1:54 PM EST documented in this encounter Results * URINALYSIS, REFLEX TO MICROSCOPIC (06/27/2023 4:13 PM EST) Color, Urine Yellow Light Yellow, Yellow, Dark Yellow 06/27/2023 4:40 PM EST [facility]ATORY [facility] Clarity, Urine Clear Clear 06/27/2023 4:40 PM EST [facility] Glucose, Urine Negative Negative mg/dL 06/27/2023 4:40 PM EST [facility] Bilirubin, Urine Negative Negative 06/27/2023 4:40 PM EST [facility] Ketone, Urine Negative Negative mg/dL 06/27/2023 4:40 PM EST [facility] Specific [place], Urine 1.007 1.003 - 1.030 06/27/2023 4:40 PM EST [facility] Blood, Urine Negative Negative 06/27/2023 4:40 PM EST [facility] pH, Urine 7.5 5.0 - 7.5 Units 06/27/2023 4:40 PM EST [facility] Protein, Urine Negative Negative mg/dL 06/27/2023 4:40 PM EST [facility] Urobilinogen, Urine 0.2 0.2, 1.0 mg/dL 06/27/2023 4:40 PM EST [facility] Nitrite, Urine Negative Negative 06/27/2023 4:40 PM EST [facility] Esterase, Urine Negative Negative 4:40 PM EST [facility] Comment, Urine 06/27/2023 4:40 PM EST [facility] Comment:Screen negative - Mi croscopic not performed. Urine Urine specimen obtained by clean catch procedure / Unknown Non-blood Collection / Unknown 06/27/2023 4:13 PM EST 06/27/2023 4:21 PM EST Maylin Sharif MD LAB URINE ORDERAB LES Performing Organization Address City/[facility]/ZIP Co de Phone Number LABORATORY [address] [address] * EXTRA MEEHAN TOP (06/27/2023 3:05 PM EST) Blood Venous blood specimen / Unknown 06/27/2023 3:05 PM EST 06/27/2023 3:12 PM EST Maylin Sharif MD LAB BLOOD ORDERAB LES Performing Organization Address City/[facility]/ZIP Co de Phone Number LABORATORY [address] [place] [address] * EXTRA GREEN TOP WITH GEL (06/27/2023 3:05 PM EST) Blood Venous blood specimen / Unknown 06/27/2023 3:05 PM EST 06/27/2023 3:12 PM EST Maylin Sharif MD LAB BLOOD ORDERAB LES LABORATORY [facility] [address] [facility] [place] [address] * DIFFERENTIAL, AUTOMATED (06/27/2023 3:05 PM EST) WBC 6.34 4.00 - 10.80 K/uL 06/27/2023 3:24 PM EST [facility] Neutrophils % 59.1 40.0 - 75.0 % 06/27/2023 3:24 PM EST [facility] Lymphocytes % 33.3 18.0 - 42.0 % 06/27/2023 3:24 PM EST [facility] Monocytes % 6.5 1.0 - 11.0 % 06/27/2023 3:24 PM EST [facility] Eosinophils % 0.5 0.0 - 6.0 % 06/27/2023 3:24 PM EST [facility] Basophils % 0.3 0.0 - 2.0 % 06/27/2023 3:24 PM EST [facility] Immature Granulocytes % 0.3 0.0 - 2.0 % 06/27/2023 3:24 PM EST [facility] Absolute Neutrophils 3.75 1.80 - 7.70 K/uL 06/27/2023 3:24 PM EST [facility] Absolute Lymphocytes 2.11 1.00 - 4.80 K/ul 06/27/2023 3:24 PM EST [facility] Absolute Monocytes 0.41 0.00 - 1.10 K/uL 06/27/2023 3:24 PM EST [facility] Absolute Eosinophils 0.03 0.00 - 0.70 K/uL 06/27/2023 3:24 PM EST [facility] Absolute Basophils 0.02 0.00 - 0.20 K/uL 06/27/2023 3:24 PM EST [facility] Absolute Immature Granulocytes 0.02 0.00 - 0.20 K/uL 06/27/2023 3:24 PM EST LABORATORY [facility] Blood Venous blood specimen / Unknown Venipuncture / Unknown 06/27/2023 3:05 PM EST 06/27/2023 3:11 PM EST Maylin Sharif MD LAB BLOOD ORDERAB LES LABORATORY [address] [address] * CBC (06/27/2023 3:05 PM EST) WBC 6.34 4.00 - 10.80 K/uL 06/27/2023 3:24 PM EST LABORATORY [facility] RBC 4.29 3.85 - 5.15 M/uL 06/27/2023 3:24 PM EST LABORATORY [facility] HGB 12.6 12.0 - 15.3 g/dL 06/27/2023 3:24 PM EST LABORATORY [facility] HCT 37.7 36.0 - 45.2 % 06/27/2023 3:24 PM EST LABORATORY [facility] MCV 87.9 81.5 - 97.5 fL 06/27/2023 3:24 PM EST LABORATORY [facility] MCH 29.4 27.0 - 34.0 pg 06/27/2023 3:24 PM EST LABORATORY [facility] MCHC 33.4 32.0 - 36.0 g/dL 06/27/2023 3:24 PM EST LABORATORY [facility] RDW 11.8 11.5 - 15.5 % 06/27/2023 3:24 PM EST LABORATORY [facility] PLT 353 140 - 400 K/uL 06/27/2023 3:24 PM EST LABORATORY [facility] MPV 9.8 6.6 - 11.1 fL 06/27/2023 3:24 PM EST LABORATORY GL nRBCs 0 <=0 /100 WBCs 06/27/2023 3:24 PM EST LABORATORY [facility] Blood Venous blood specimen / Unknown Venipuncture / Unknown 06/27/2023 3:05 PM EST 06/27/2023 3:11 PM EST Maylin Sharif MD LAB BLOOD ORDERAB LES Performing Organization Address City/[facility]/ZIP Co de Phone Number LABORATORY [facility] [address] [place] [address] * (ABNORMAL) BASIC METABOLIC PANEL (06/27/2023 3:05 PM EST) BUN 7 6 - 20 mg/dL 06/27/2023 3:38 PM EST [facility] Creatinine 0.5 0.5 - 1.0 mg/dL 06/27/2023 3:38 PM EST [facility] Estimated Glomerular Filtration Rate >90 >=60 mL/min 06/27/2023 3:38 PM EST [facility] Comment:eGFR is calculated b ased on the CKD-EPI 2020 equation Sodium 140 135 - 146 mmol/L 06/27/2023 3:38 PM EST [facility] Potassium 4.0 3.5 - 5.1 mmol/L 06/27/2023 3:38 PM EST [facility] Chloride 108(H) 98 - 107 mmol/L 06/27/2023 3:38 PM EST [facility] CO2 23 22 - 32 mmol/L 06/27/2023 3:38 PM EST [facility] Anion Gap 9 7 - 15 mmol/L 06/27/2023 3:38 PM EST [facility] Glucose 94 70 - 120 mg/dL 06/27/2023 3:38 PM EST [facility] Calcium 9.1 8.4 - 10.2 mg/dL 06/27/2023 3:38 PM EST [facility] Blood Venous blood specimen / Unknown Venipuncture / Unknown 06/27/2023 3:05 PM EST 06/27/2023 3:11 PM EST Maylin Sharif MD LAB BLOOD ORDERAB LES Performing Organization Address City/[facility]/ZIP Co de Phone Number LABORATORY [address] [address] * XR ABDOMEN OBSTRUCT SERIES W CHEST 1 VIEW (06/27/2023 1:54 PM EST) Anatomical Region Laterality Modality Abdomen, Pelvis Digital Radiogra phy 06/27/2023 2:07 PM EST Impressions 06/27/2023 2:27 PM EST IMPRESSION: No acute findings. THIS DOCUMENT HAS BEEN ELECTRONICALLY SIGNED BY BENOIT FULLER MD Narrative 06/27/2023 2:27 PM EST PROCEDURE INFORMATION: Exam: XR Complete Acute Abdomen Series Including Chest Exam date and time: 06/27/2023 2:07 PM Age: 22 years old Clinical indication: Abdominal pain; Localized; Left lower quadrant (llq); Prior surgery; Surgery date: 6+ months; Surgery type: Multiple; Additional info: Left lower abdominal pain, multiple surgeries TECHNIQUE: Imaging protocol: Radiologic exam. Complete acute abdomen series, including 2 or more views of the abdomen and a single view chest. COMPARISON: DX XR CHEST 1 VIEW 06/14/2023 4:15 PM FINDINGS: Tubes, catheters and devices: Right-sided [id number] with the tip overlying at the level of mid SVC noted. Lungs: Normal. No consolidation. Pleural spaces: Normal. No pleural effusions. No pneumothorax. Heart/Mediastinum: Normal. No cardiomegaly. Gastrointestinal tract: Nonspecific bowel gas pattern. Moderate volume of stool in transverse and proximal descending colon suspected. Nonspecific small bowel loop gas pattern. No bowel dilation. Intraperitoneal space: Normal. No free air. Bones/joints: Normal. No acute fracture. Soft tissues: Percutaneous feeding tube pattern density overlying left abdomen noted. Procedure Note Benoit Fuller MD - 06/27/2023 PROCEDURE INFORMATION: Exam: XR Complete Acute Abdomen Series Including Chest Exam date and time: 06/27/2023 2:07 PM Age: 22 years old Clinical indication: Abdominal pain; Localized; Left lower quadrant (llq); Prior surgery; Surgery date: 6+ months; Surgery type: Multiple; Additional info: Left lower abdominal pain, multiple surgeries TECHNIQUE: Imaging protocol: Radiologic exam. Complete acute abdomen series,including 2 or more views of the abdomen and a single view chest. COMPARISON: DX XR CHEST 1 VIEW 06/14/2023 4:15 PM FINDINGS: Tubes, catheters and devices: Right-sided [id number] with the tipoverlying at the level of mid SVC noted. Lungs: Normal. No consolidation. Pleural spaces: Normal. No pleural effusions. No pneumothorax. Heart/Mediastinum: Normal. No cardiomegaly. Gastrointestinal tract: Nonspecific bowel gas pattern. Moderate volume ofstool in transverse and proximal descending colon suspected. Nonspecific smallbowel loop gas pattern. No bowel dilation. Intraperitoneal space: Normal. No free air. Bones/joints: Normal. No acute fracture. Soft tissues: Percutaneous feeding tube pattern density overlying leftabdomen noted. IMPRESSION IMPRESSION: No acute findings. THIS DOCUMENT HAS BEEN ELECTRONICALLY SIGNED BY BENOIT FULLER MD Maylin Sharif MD RADIOLOGY (RAD GE NERAL) documented in this encounter Visit Diagnoses Diagnosis Recurrent abdominal pain- Primary Abdominal pain, unspecified site Abdominal pain, left lower quadrant documented in this encounter Administered Medications Inactive Administered Medications - up to 3 most recent administrations Medication Order MAR Action Action Date Dose Rate Site NSS 0.9% 2,000 mL bolus infusion IV Piggyback, at 2,000 mL/hr Administer over 60 Minutes, ONCE, 1 dose, On 06/27/23 at 1345 New Bag 06/27/2023 3:04 PM EST 2,000 mL 2000 mL/hr ondansetron ODT (Zofran) tab 4 mg 4 mg, On Tongue, ONCE, On 06/27/23 at 1345, For 1 dose Given 06/27/2023 2:06 PM EST 4 mg oxyCODONE-acetaminophen 5-325 mg per tab (Percocet) 1 Tablet 1 Tablet, Oral, ONCE, On 06/27/23 at 1345, For 1 dose, Maximum of 4 grams (4000 mg) of acetaminophen per day Given 06/27/2023 2:06 PM EST 1 Tablet oxyCODONE-acetaminophen 5-325 mg per tab (Percocet) 1 Tablet 1 Tablet, Oral, ONCE, On 06/27/23 at 1645, For 1 dose, Maximum of 4 grams (4000 mg) of acetaminophen per day Given 06/27/2023 4:23 PM EST 1 Tablet documented in this encounter Active and Recently Administered Medications Times are shown in EST. Scheduled Medication Order 06/25/2023 06/26/2023 06/27/2023 hydrOXYzine HCl tab 50 mg 50 mg, Oral, ONCE, On 06/27/23 at 1345, For 1 dose 1345 (Not Given - Pr ovider: Avril Lopez RN - Reason: Refused-Notify Provider - Comment: Provider aware) NSS 0.9% 2,000 mL bolus infusion (COMPLETED) IV Piggyback, at 2,000 mL/hr Administer over 60 Minutes, ONCE, 1 dose, On 06/27/23 at 1345 1504 (New Bag - Prov ider: Avril Lopez RN)1725 (Stopped - Provider: Avril Lopez RN) ondansetron ODT (Zofran) tab 4 mg (COMPLETED) 4 mg, On Tongue, ONCE, On 06/27/23 at 1345, For 1 dose 1406 (Given - Provid er: Avril Lopez RN) oxyCODONE-acetaminophen 5-325 mg per tab (Percocet) 1 Tablet (COMPLETED) 1 Tablet, Oral, ONCE, On 06/27/23 at 1345, For 1 dose, Maximum of 4 grams (4000 mg) of acetaminophen per day 1406 (Given - Provid er: Avril Lopez RN) oxyCODONE-acetaminophen 5-325 mg per tab (Percocet) 1 Tablet (COMPLETED) 1 Tablet, Oral, ONCE, On 06/27/23 at 1645, For 1 dose, Maximum of 4 grams (4000 mg) of acetaminophen per day 1623 (Given - Provid er: Avril Lopez RN) documented in this encounter Advance Directives [...] the patient have Health Care Power of Mason Tender? No Full Code 07/18/2021 7:04 AM 08/03/2021 4:12 PM This order reflects the patients wishes and were consensually agreed upon. Question Answer Comments Discussion of Advance Directives occurred with: Not Discussed Care Teams Fast Food Delivery Driver Relationship Specialty Start Date End Date Kinjal Reynoso PA-C [address] [address] PCP - General Physician Child Abuse Worker 11/05/22 documented as of this encounter
--- OUTSIDE RECORDS SUMMARY | 2023-08-07 19:27 | External Medical Summary | Summary of Care ---
Author Name Unknown Organization [facility] Address [address] [place] [address] Phone [phone] Care Team Providers Care Manager Of Care Name Role Phone Kinjal Reynoso PA-C Primary Care Provider [phone] Encounter Details Date Type Department Care Team (Late st Contact Info) Description 04/02/2023 Telephone [facility] [address] [place] [address] Kinjal Reynoso PA-C [address] [place] [address] Allergies Active Allergy Reactions Criticality Noted [...] as of this encounter (statuses as of 07/02/2023) Medications Medication Sig Dispensed Refills Start Date End Date Status Norethindrone Acetate 5 MG Oral Tablet Take 1 Tablet by mouth in the morning. 0 11/20/19 Active Acetaminophen 325 MG Oral Tablet (Tylenol) 2 Tablets. 0 03/25/20 Active Naloxone HCl 4 MG/0.1ML Nasal Liquid (Narcan Nasal)Indications: Chronic pelvic pain in female,MEDICATION USE AGREEMENT,Chronic abdominal pain ADMINISTER 1 SPRAY INTO 1 NOSTRIL FOR SUSPECTED OPIOID OVERDOSE - SEEK IMMEDIATE MEDICAL ATTENTION. [email or web address] 2 Each 3 03/31/20 Active Additional Information Patient not taking.Reported on 05/18/2023 Polyethylene Glycol 3350 17 GM/SCOOP Oral Powder (MiraLax) One cap full in juice, water, coffee, etc., once to twice daily every day. 850 g 2 04/08/20 22 023 Discontinued(Me dication/Dose Changed) Prevacid 15 MG Oral Capsule Delayed Release 2 Capsules. 0 03/25/20 23 023 Discontinued Ondansetron 4 MG Oral Tablet Disintegrating (Zofran) 0 03/25/20 23 023 Discontinued(Re fill) oxyCODONE HCl 10 MG Oral Tablet (Roxicodone)Indica tions:Chronic pelvic pain in female,Generalized abdominal pain,Gastroparesis ,Endometriosis,PEG (percutaneous endoscopic gastrostomy) status ([facility]),Pain around percutaneous endoscopic gastrostomy (PEG) tube site, subsequent encounter Take 2 Tablets by mouth. Continuation of Care 80 Tablet 0 03/31/20 23 023 Discontinued(Re fill) Gabapentin 100 MG Oral Capsule (Neurontin) Take 2 Capsules by mouth in the morning and 2 Capsules at noon and 2 Capsules before bedtime. 180 Capsule 0 03/31/20 23 023 Discontinued(Me dication/Dose Changed) documented as of this encounter (statuses as of 07/02/2023) Active Problems Problem Noted Date Diagnosed Date Gastroparesis 02/02/2023 Post concussive syndrome 10/23/2022 Adjustment disorder with mixed anxiety and depre ssed mood 10/23/2022 Chronic abdominal pain 10/23/2022 Chronic female pelvic pain 09/24/2022 Illness anxiety disorder 08/12/2022 Chronic, continuous use of opioids 07/19/2022 Abdominal pain 07/19/2022 Ovarian cystic mass 05/28/2022 Retention of urine 03/17/2022 Adjustment disorder with depressed mood 01/17/20 22 PTSD (post-traumatic stress disorder) 01/16/2022 Gastroesophageal reflux dise ase with esophagitis without hemorrhage 07/23/2021 Chronic pelvic pain in female 07/23/2021 Status post hysterectomy 05/01/2021 Dysmenorrhea 11/03/2020 Endometriosis 10/30/2020 Medical marijuana use 03/29/2020 Endometriosis 06/06/2019 documented as of this encounter (statuses as of 07/02/2023) Resolved Problems Problem Noted Date Diagnosed Date [...] as of this encounter (statuses as of 07/02/2023) Immunizations Name Administration Dates Next Due DTaP [...] encounter Miscellaneous Notes * Telephone Encounter - Lidia Benitez OSA - 04/02/2023 11:20 AM EDT Calling to advise that pt had some blood on and within her G Tube this morning. TR recommenced that she clean it and keep and eye on it, if there is any further concern to providethem with a return call. documented in this encounter Plan of Treatment Upcoming Encounters Date Type Department Care Team (Late st Contact Info) Description 07/15/2023 8:40 AM EST Office Visit [facility] [address] [phone] Kinjal Reynoso PA-C [address] [place] [address] 08/20/2023 1:50 PM EST Telemedicine Nutrition & Weight Management, [facility] [address] [place] [address] Kaity Yap RDN [address] [place] [address] 09/20/2023 12:40 PM EDT Office Visit Nutrition & Weight Management, [facility] [address] [place] [address] Cee Santizo PA-C [address] [place] [address] Health Maintenance Due Date Last Done Comments [...] this encounter Medical Devices Implanted Type Area Powder Expert Device Identifier Shelf Expiration Date Model / Serial / Lot Port Implant W/8f Poly Cath - [id number] Implanted:Qty : 1 on 05/18/2023 by Juan Jose Connell DO at OR [facility] Right: Chest CR BARD : PERIPHERAL VASCULAR [id number] 11/18/2024 [id number] / / [id number] documented as of this encounter Additional Health Concerns Infection Onset Date Last Indicated Resolved Time Respiratory Rule-Out 06/14/2023 06/14/20232 023 12:43 PM EST COVID-19 Rule-Out 06/14/2023 [...] the patient have Health Care Power of Tie Knitter Helper? No Full Code 07/18/2021 7:04 AM 08/03/2021 4:12 PM This order reflects the patients wishes and were consensually agreed upon. Question Answer Comments Discussion of Advance Directives occurred with: Not Discussed Care Teams Manager Of Care Relationship Specialty Start Date End Date Kinjal Reynoso PA-C [address] [place] [address] PCP - General Physician Pipe Supervisor 11/05/22 documented as of this encounter
--- OUTSIDE RECORDS SUMMARY | 2023-08-07 19:27 | External Medical Summary ---
Author Name Unknown Address Unknown Organization K1F:[facility] - [address] [place] [address] Laboratory Report Ordering Provider Test Date Status KASANDRA DELGADO 07/06/2023 22:55:54 Final Observation Date Value Abnormality Reference (Units ) Status Lipase 07/06/2023 22:55:54 19 13-60 (U/L ) Final Performing Location [facility] - [address] [place] [address]
--- OUTSIDE RECORDS SUMMARY | 2023-08-07 19:27 | External Medical Summary | Summary of Care ---
Author Name Unknown Organization [facility] Address [address] [place] [address] Phone [phone] Care Team Providers Care Pulverizer Name Role Phone Kinjal Reynoso PA-C Primary Care Provider [phone] Encounter Details Date Type Department Care Team (Late st Contact Info) Description 06/18/2023 Telephone [facility] [address] [place] [address] Kinjal Reynoso PA-C 21 [facility] [place] [address] Allergies Active Allergy Reactions Criticality Noted [...] directed through J Tube via feeding pump 05069 mL 11 04/12/2023 Active Lansoprazole 15 MG [...] 8:40 AM EST Office Visit [facility], [place] [phone] Kinjal Reynoso PA-C [address] [place] [address] 08/20/2023 1:50 PM EST Telemedicine Nutrition & Weight Management, [facility] [address] [place] [address] Kaity Yap RDN [address] [place] [address] 09/20/2023 12:40 PM EDT Office Visit Nutrition & Weight Management, [facility] [address] [place] [address] Cee Santizo PA-C [address] [place] [address] Health Maintenance Due Date Last Done Comments [...] this encounter Medical Devices Implanted Type Area Occupancy Specialist Device Identifier Shelf Expiration Date Model / Serial / Lot Port Implant W/8f Poly Cath - [id number] Implanted:Qty : 1 on 05/18/2023 by Juan Jose Connell, at OR [facility] Right: Chest CR BARD : PERIPHERAL VASCULAR [id number] 11/18/2024 [id number] / / [id number] documented as of this encounter Advance Directives [...] the patient have Health Care Power of Risk Lead? No Full Code 07/18/2021 7:04 AM 08/03/2021 4:12 PM This order reflects the patients wishes and were consensually agreed upon. Question Answer Comments Discussion of Advance Directives occurred with: Not Discussed Care Teams Pulverizer Relationship Specialty Start Date End Date Kinjal Reynoso PA-C [address] [place] [address] PCP - General Physician Supervisor Remelt 11/05/22 documented as of this encounter
--- OUTSIDE RECORDS SUMMARY | 2023-08-07 19:27 | External Medical Summary | Summary of Care ---
Author Name Unknown Organization [facility] Address [address] [place] [address] Phone [phone] Care Team Providers Care Chute Tapper Name Role Phone Kinjal Reynoso PA-C Primary Care Provider [phone] Reason for Visit * Reason Onset Date Comments Appointment 06/18/2023 Encounter Details Date Type Department Care Team (Late st Contact Info) Description 06/18/2023 Telephone [facility] 21 [facility] [place] [address] Kinjal Reynoso PA-C 21 [facility] [place] [address] Appointment Allergies Active Allergy [...] directed through J Tube via feeding pump 82642 mL 11 04/12/2023 Active Lansoprazole 15 MG [...] encounter Miscellaneous Notes * Telephone Encounter - Christie Ruelas LPN [...] Description 07/15/2023 8:40 AM EST Office Visit [facility] [place] [address] [place] [address] [phone] Kinjal Reynoso PA-C [address] [place] [address] [address] 08/20/2023 1:50 PM EST Telemedicine Nutrition & Weight Management, [facility] [address] [place] [address] Kaity Yap RDN [address] [place] [address] 09/20/2023 12:40 PM EDT Office Visit Nutrition & Weight Management, [facility] [address] [place] [address] Cee Santizo PA-C [address] [place] [address] Health Maintenance Due Date Last Done Comments [...] this encounter Medical Devices Implanted Type Area Chief Sustainability Officer Device Identifier Shelf Expiration Date Model / Serial / Lot Port Implant W/8f Poly Cath - [id number] Implanted:Qty : 1 on 05/18/2023 by Juan Jose Connell DO at OR [facility] Right: Chest CR BARD : PERIPHERAL VASCULAR [id number] 11/18/2024 [id number] / / [id number] documented as of this encounter Advance Directives [...] the patient have Health Care Power of Ruby Engineer? No Full Code 07/18/2021 7:04 AM 08/03/2021 4:12 PM This order reflects the patients wishes and were consensually agreed upon. Question Answer Comments Discussion of Advance Directives occurred with: Not Discussed Care Teams Chute Tapper Relationship Specialty Start Date End Date Kinjal Reynoso PA-C [address] [place] [address] PCP - General Physician Laborer Airport Maintenance 11/05/22 documented as of this encounter
--- OUTSIDE RECORDS SUMMARY | 2023-08-07 19:27 | External Medical Summary ---
Author Name Unknown Address Unknown Organization K1F:LABORATORY [facility] - [address] [place] [address] Laboratory Report Ordering Provider Test Date Status TAMERA PARRA 06/27/2023 15:05:41 Final Observation Date Value Abnormality Reference (Units ) Status WBC, Total 06/27/2023 15:05:41 6.34 4.00-10.80 (K/uL) Final RBC 06/27/2023 15:05:41 4.29 3.85-5.15 (M/uL) Final Hemoglobin 06/27/2023 15:05:41 12.6 12.0-15.3 (g/dL) Final HCT 06/27/2023 15:05:41 37.7 36.0-45.2 (%) Final MCV 06/27/2023 15:05:41 87.9 81.5-97.5 (fL) Final MCH 06/27/2023 15:05:41 29.4 27.0-34.0 (pg) Final MCHC 06/27/2023 15:05:41 33.4 32.0-36.0 (g/dL) Final RDW 06/27/2023 15:05:41 11.8 11.5-15.5 (%) Final Platelets 06/27/2023 15:05:41 353 140-400 (K/uL) Final MPV 06/27/2023 15:05:41 9.8 6.6-11.1 (fL) Final Nucleated erythrocytes/100 leukocytes [Ratio] in Blood by Automated count 06/27/2023 15:05:41 0 <=0 (/100 WBCs) Final Performing Location [facility] - [address] [place] [address]
--- OUTSIDE RECORDS SUMMARY | 2023-08-07 19:27 | External Medical Summary | Summary of Care ---
Author Name Unknown Organization [facility] Address [address] [place] [address] Phone [phone] Care Team Providers Care Rust Proofer Name Role Phone Kinjal Reynoso PA-C Primary Care Provider [phone] Reason for Visit * Reason Onset Date Comments Appointment 06/18/2023 Encounter Details Date Type Department Care Team (Late st Contact Info) Description 06/18/2023 Telephone [facility] 21 [facility] [place] [address] Kinjal Reynoso PA-C 21 [facility] [place] [address] Appointment Allergies Active Allergy [...] as of this encounter (statuses as of 06/23/2023) Medications Medication Sig Dispensed Refills Start Date [...] directed through J Tube via feeding pump 22764 mL 11 04/12/2023 Active Lansoprazole 15 MG [...] as of this encounter (statuses as of 06/23/2023) Active Problems Problem Noted Date Diagnosed Date [...] as of this encounter (statuses as of 06/23/2023) Resolved Problems Problem Noted Date Diagnosed Date [...] as of this encounter (statuses as of 06/23/2023) Immunizations Name Administration Dates Next Due DTaP [...] encounter Miscellaneous Notes * Telephone Encounter - Dianna Coffey OSA - 06/23/2023 1:12 PM EST Patient called back and she is aware we are unable to see her. * Telephone Encounter - Laila Schneider LPN - 06/23/2023 8:36 AM EST T/C to pt at this time. LVM if patient returns call please inform patient she needs to f/u with the who preformed the surgery [facility] [place]. Thank you * Telephone Encounter - Laila Schneider LPN [...] Care Team (Late st Contact Info) Description 06/28/2023 10:00 AM EST Office Visit Wound Care, [address] [place] [address] Juan Jose Yap MD 27 [facility] [address] [place] [address] 07/15/2023 8:40 AM EST Office Visit [facility] [address] [place] [phone] Kinjal Reynoso PA-C [address] [place] [address] [address] 08/20/2023 1:50 PM EST Telemedicine Nutrition & Weight Management, [facility] [address] [place] [address] Kaity Yap RDN [address] [place] [address] 09/20/2023 12:40 PM EDT Office Visit Nutrition & Weight Management, [facility] [address] [place] [address] Cee Santizo PA-C [address] [place] [address] Health Maintenance Due Date Last Done Comments [...] this encounter Medical Devices Implanted Type Area Curtain Drier Device Identifier Shelf Expiration Date Model / Serial / Lot Port Implant W/8f Poly Cath - [id number] Implanted:Qty : 1 on 05/18/2023 by Juan Jose Connell DO at OR [facility] Right: Chest CR BARD : PERIPHERAL VASCULAR [id number] 11/18/2024 [id number] / / [id number] documented as of this encounter Advance Directives [...] the patient have Health Care Power of Server Engineer? No Full Code 07/18/2021 7:04 AM 08/03/2021 4:12 PM This order reflects the patients wishes and were consensually agreed upon. Question Answer Comments Discussion of Advance Directives occurred with: Not Discussed Care Teams Rust Proofer Relationship Specialty Start Date End Date Kinjal Reynoso PA-C [address] [place] [address] [address] PCP - General Physician Division Chief 11/05/22 documented as of this encounter
--- OUTSIDE RECORDS SUMMARY | 2023-08-07 19:27 | External Medical Summary ---
Author Name Unknown Address Unknown Organization K1F:[facility] - [address] [place] [address] Laboratory Report Ordering Provider Test Date Status TAMERA PARRA 06/27/2023 16:13:39 Final Observation Date Value Abnormality Reference (Units ) Status Color of Urine by Auto 06/27/2023 16:13:39 Yellow Light Yellow, Yellow, Dark Yellow Final Clarity, Urine 06/27/2023 16:13:39 Clear Clear Final Glucose [Mass/volume] in Urine by Automated test strip 06/27/2023 16:13:39 Negative Negative (mg/dL) Final Bilirubin.total [Presence] in Urine by Automated test strip 06/27/2023 16:13:39 Negative Negative Final Ketones [Mass/volume] in Urine by Automated test strip 06/27/2023 16:13:39 Negative Negative (mg/dL) Final Specific gravity, Urine 06/27/2023 16:13:39 1.007 1.003-1.030 Final Hemoglobin [Presence] in Urine by Automated test strip 06/27/2023 16:13:39 Negative Negative Final pH, Urine 06/27/2023 16:13:39 7.5 5.0-7.5 (Units) Final Protein [Mass/volume] in Urine by Automated test strip 06/27/2023 16:13:39 Negative Negative (mg/dL) Final Urobilinogen [Mass/volume] in Urine by Automated test strip 06/27/2023 16:13:39 0.2 0.2, 1.0 (mg/dL) Final Nitrite [Presence] in Urine by Automated test strip 06/27/2023 16:13:39 Negative Negative Final Leukocyte esterase [Presence] in Urine by Automated test strip 06/27/2023 16:13:39 Negative Negative Final Annotation Comment 06/27/2023 16:13:39 Final Screen negative - Microscopi c not performed. Performing Location [facility] - [address] [place] [address]
--- OUTSIDE RECORDS SUMMARY | 2023-08-07 19:27 | External Medical Summary | Summary of Care ---
Author Name Unknown Organization [facility] Address [address] [place] [address] Phone [phone] Care Team Providers Care Fruit Vendor Name Role Phone Kinjal Reynoso PA-C Primary Care Provider [phone] Reason for Visit * Reason Onset Date Comments Appointment 06/18/2023 Encounter Details Date Type Department Care Team (Late st Contact Info) Description 06/18/2023 Telephone [facility] 21 [facility] [place] [address] Kinjal Reynoso PA-C 21 [facility] [place] [address] Appointment Allergies Active Allergy [...] directed through J Tube via feeding pump 03851 mL 11 04/12/2023 Active Lansoprazole 15 MG [...] encounter Miscellaneous Notes * Telephone Encounter - Layne Bradshaw OSA [...] Description 07/15/2023 8:40 AM EST [facility] [address] [place] [phone] Kinjal Reynoso PA-C [address] [place] [address] 08/20/2023 1:50 PM EST Telemedicine Nutrition & Weight Management, [facility] [address] [facility] [place] [address] Kaity Yap RDN [address] [place] [address] 09/20/2023 12:40 PM EDT Office Visit Nutrition & Weight Management, [facility] [address] [place] [address] Cee Santizo PA-C [address] [place] [address] Health Maintenance Due Date Last Done Comments [...] this encounter Medical Devices Implanted Type Area Head Men'S Golf Coach Device Identifier Shelf Expiration Date Model / Serial / Lot Port Implant W/8f Poly Cath - [id number] Implanted:Qty : 1 on 05/18/2023 by Juan Jose Connell DO at OR [facility] Right: Chest CR BARD : PERIPHERAL VASCULAR [id number] 11/18/2024 [id number] / / [id number] documented as of this encounter Advance Directives [...] the patient have Health Care Power of Nurse Staff Industrial? No Full Code 07/18/2021 7:04 AM 08/03/2021 4:12 PM This order reflects the patients wishes and were consensually agreed upon. Question Answer Comments Discussion of Advance Directives occurred with: Not Discussed Care Teams Fruit Vendor Relationship Specialty Start Date End Date Kinjal Reynoso PA-C [address] [place] [address] PCP - General Physician Incident Coordinator 11/05/22 documented as of this encounter
--- OUTSIDE RECORDS SUMMARY | 2023-08-07 19:27 | External Medical Summary | Summary of Care ---
Author Name Unknown Organization [facility] Address [address] [place] [address] Phone [phone] Care Team Providers Care Veneer Stock Layer Name Role Phone Kinjal Reynoso PA-C Primary Care Provider [phone] Reason for Visit * Reason Onset Date Comments Appointment 06/18/2023 Encounter Details Date Type Department Care Team (Late st Contact Info) Description 06/18/[address] [facility] 21 [facility] [place] [address] Kinjal Reynoso PA-C 21 [facility] [place] [address] Appointment Allergies Active Allergy [...] directed through J Tube via feeding pump 27633 mL 11 04/12/2023 Active Lansoprazole 15 MG [...] f/u with the who preformed the surgery [facility]. Thank you * Telephone Encounter - Laila [...] 10:00 AM EST Office Visit Wound Care, [facility] [place] [address] Juan Jose Yap MD 27 [facility] [address] [place] [address] 07/15/2023 8:40 AM EST Office [facility] [address] [place] [phone] Kinjal Reynoso PA-C 21 [facility] [place] [address] 08/20/2023 1:50 PM EST Telemedicine Nutrition & Weight Management, [facility] [address] [place] [address] Kaity Yap RDN [address] [place] [address] 09/20/2023 12:40 PM EDT Office Visit Nutrition & Weight Management, [facility] [address] [place] [address] Cee Santizo PA-C [address] [place] [address] Health Maintenance Due Date Last Done Comments [...] this encounter Medical Devices Implanted Type Area English Tutor Device Identifier Shelf Expiration Date Model / Serial / Lot Port Implant W/8f Poly Cath - [id number] Implanted:Qty : 1 on 05/18/2023 by Juan Jose Connell, at OR [facility] Right: Chest CR BARD : PERIPHERAL VASCULAR [id number] 11/18/2024 [id number] / / [id number] documented as of this encounter Advance Directives [...] the patient have Health Care Power of Certified Alcohol Drug Counselor? No Full Code 07/18/2021 7:04 AM 08/03/2021 4:12 PM This order reflects the patients wishes and were consensually agreed upon. Question Answer Comments Discussion of Advance Directives occurred with: Not Discussed Care Teams Veneer Stock Layer Relationship Specialty Start Date End Date Kinjal Reynoso PA-C [address] [place] [address] PCP - General Physician Divisional Human Resources Director 11/05/22 documented as of this encounter
--- OUTSIDE RECORDS SUMMARY | 2023-08-07 19:27 | External Medical Summary ---
Author Name Unknown Address Unknown Organization K1F:[facility] - [address] [place] [address] Laboratory Report Ordering Provider Test Date Status TAMERA PARRA 06/27/2023 15:05:41 Final Observation Date Value Abnormality Reference (Units ) Status BUN 06/27/2023 15:05:41 7 6-20 (mg/dL) Final Creatinine 06/27/2023 15:05:41 0.5 0.5-1.0 (mg/dL) Final Glomerular filtration rate/1.73 sq M.predicted [Volume Rate/Area] in Serum, Plasma or Blood by Creatinine-based formula (CKD-EPI) 06/27/2023 15:05:41 >90 >=60 (mL/min) Final eGFR is calculated based on the CKD-EPI 2020 equation SODIUM 06/27/2023 15:05:41 140 135-146 (m mol/L) Final Potassium 06/27/2023 15:05:41 4.0 3.5-5.1 (m mol/L) Final Cl 06/27/2023 15:05:41 108 Above high normal 98 -107 (mmol/L) Final CO2 06/27/2023 15:05:41 23 22-32 (mmo l/L) Final Anion gap 06/27/2023 15:05:41 9 7-15 (mmol /L) Final Glucose 06/27/2023 15:05:41 94 70-120 (mg /dL) Final Calcium 06/27/2023 15:05:41 9.1 8.4-10.2 ( mg/dL) Final Performing Location [facility] [address] [facility] [place] [address]
--- OUTSIDE RECORDS SUMMARY | 2023-08-07 19:27 | External Medical Summary ---
Author Name Unknown Address Unknown Organization K1F:[facility] - [address] [facility] [place] [address] Laboratory Report Ordering Provider Test Date Status FIDELTAMERA STONE 06/27/2023 15:05:41 Final Observation Date Value Abnormality Reference (Units ) Status SYNC LEUKOCYTES IN BLOOD BY AUTOMATED COUNT 06/27/2023 15:05:41 6.34 4.00-10.80 (K/uL) Final Segs 06/27/2023 15:05:41 59.1 40.0-75.0 (%) Final Lymphs % 06/27/2023 15:05:41 33.3 18.0-42.0 (%) Final Monos 06/27/2023 15:05:41 6.5 1.0-11.0 (%) Final Eosinophils 06/27/2023 15:05:41 0.5 0.0-6.0 (%) Final Basos 06/27/2023 15:05:41 0.3 0.0-2.0 (%) Final Immature Granulocyte, Percent 06/27/2023 15:05:41 0.3 0.0-2.0 (%) Final Absolute Segs 06/27/2023 15:05:41 3.75 1.80-7.70 (K/uL) Final Lymphs, absolute 06/27/2023 15:05:41 2.11 1.00-4.80 (K/ul) Final Monos, Abs 06/27/2023 15:05:41 0.41 0.00-1.10 (K/uL) Final Eos, Abs 06/27/2023 15:05:41 0.03 0.00-0.70 (K/uL) Final Basos, Abs 06/27/2023 15:05:41 0.02 0.00-0.20 (K/uL) Final Immature Granulocytes, Number 06/27/2023 15:05:41 0.02 0.00-0.20 (K/uL) Final Performing Location LABORATORY [facility] - [address] [place] [address]
--- OUTSIDE RECORDS SUMMARY | 2023-08-07 19:27 | External Medical Summary ---
Author Name Unknown Address Unknown Organization K1F:[facility] - [address] [place] [address] Laboratory Report Ordering Provider Test Date Status KASANDRA DELGADO 07/06/2023 22:55:54 Final Observation Date Value Abnormality Reference (Units ) Status WBC, Total 07/06/2023 22:55:54 7.20 4.00-10.80 (K/uL) Final RBC 07/06/2023 22:55:54 3.92 3.85-5.15 (M/uL) Final Hemoglobin 07/06/2023 22:55:54 12.0 12.0-15.3 (g/dL) Final HCT 07/06/2023 22:55:54 34.1 Below low normal 36.0-45.2 (%) Final MCV 07/06/2023 22:55:54 87.0 81.5-97.5 (fL) Final MCH 07/06/2023 22:55:54 30.6 27.0-34.0 (pg) Final MCHC 07/06/2023 22:55:54 35.2 32.0-36.0 (g/dL) Final RDW 07/06/2023 22:55:54 12.1 11.5-15.5 (%) Final Platelets 07/06/2023 22:55:54 245 140-400 (K/uL) Final MPV 07/06/2023 22:55:54 10.4 6.6-11.1 (fL) Final Nucleated erythrocytes/100 leukocytes [Ratio] in Blood by Automated count 07/06/2023 22:55:54 0 <=0 (/100 WBCs) Final Performing Location [facility] - [address] [place] [address]
--- OUTSIDE RECORDS SUMMARY | 2023-08-07 19:27 | External Medical Summary ---
Author Name Unknown Address Unknown Organization K1F:[facility] - [address] [facility] [place] [address] Laboratory Report Ordering Provider Test Date Status KASANDRA DELGADO 07/06/2023 22:55:54 Final Observation Date Value Abnormality Reference (Units ) Status SYNC LEUKOCYTES IN BLOOD BY AUTOMATED COUNT 07/06/2023 22:55:54 7.20 4.00-10.80 (K/uL) Final Segs 07/06/2023 22:55:54 52.7 40.0-75.0 (%) Final Lymphs % 07/06/2023 22:55:54 36.3 18.0-42.0 (%) Final Monos 07/06/2023 22:55:54 8.9 1.0-11.0 (%) Final Eosinophils 07/06/2023 22:55:54 1.4 0.0-6.0 (%) Final Basos 07/06/2023 22:55:54 0.1 0.0-2.0 (%) Final Immature Granulocyte, Percent 07/06/2023 22:55:54 0.6 0.0-2.0 (%) Final Absolute Segs 07/06/2023 22:55:54 3.80 1.80-7.70 (K/uL) Final Lymphs, absolute 07/06/2023 22:55:54 2.61 1.00-4.80 (K/ul) Final Monos, Abs 07/06/2023 22:55:54 0.64 0.00-1.10 (K/uL) Final Eos, Abs 07/06/2023 22:55:54 0.10 0.00-0.70 (K/uL) Final Basos, Abs 07/06/2023 22:55:54 0.01 0.00-0.20 (K/uL) Final Immature Granulocytes, Number 07/06/2023 22:55:54 0.04 0.00-0.20 (K/uL) Final Performing Location LABORATORY [facility] - [address] [place] [address]
--- OUTSIDE RECORDS SUMMARY | 2023-08-07 19:27 | External Medical Summary | Summary of Care ---
Author Name Unknown Organization [facility] Address [address] [place] [address] Phone [phone] Care Team Providers Care Foot Press Operator Name Role Phone Kinjal Reynoso PA-C Primary Care Provider [phone] Reason for Visit * Reason Onset Date Comments Order Request 03/29/2023 Encounter Details Date Type Department Care Team (Late st Contact Info) Description 03/29/[address] [facility] [address] [facility] [place] [address] Kinjal Reynoso PA-C [address] [facility] [place] [address] Order Request Allergies Active Allergy Reactions Criticality Noted [...] mouth in the morning. 0 3 Active Acetaminophen 325 MG Oral Tablet (Tylenol) 2 Tablets. 0 3 Active Polyethylene Glycol 3350 17 GM/SCOOP Oral Powder (MiraLax) One cap full in juice, water, coffee, etc., once to twice daily every day. 850 g 2 2 05/24/20 Discontinued(Med ication/Dose Changed) Multivitamin Women Oral Tablet Take 1 Tablet by mouth every morning. 0 04/05/20 Discontinued(Med ication List Clean Up) Scopolamine 1 MG/3DAYS Transdermal Patch 72 Hour (Transderm Scop) Place 1 Patch topically on the skin behind ear every 3 days - remove old patch first. Do not start before February 05, 2023. 10 Patch 0 3 04/05/20 Discontinued(Med ication List Clean Up) Prevacid 15 MG Oral Capsule Delayed Release 2 Capsules. 0 3 05/18/20 23 Discontinued Ondansetron 4 MG Oral Tablet Disintegrating (Zofran) 0 3 04/16/20 Discontinued(Ref ill) oxyCODONE HCl 10 MG/0.5ML Oral Concentrate Take by mouth. Take 2 tablets by mouth every 6 hours as needed 0 03/30/20 Discontinued(Med ication/Dose Changed) documented as of this encounter (statuses [...] (15 years old or older) No 02/03/20 23 Cognitive Status Response Date of Assessm ent Because of a physical, menta l, or emotional condition, do you have serious difficulty concentrating, remembering, or making decisions? (5 years old or older) No 02/02/2023 documented as of this encounter Miscellaneous Notes * Telephone Encounter - Joslyn Cavanaugh LPN - 03/29/2023 3:53 PM EDT Admission/Start of Care Admission/Start of Care: Denisse BAUGH, Calling from: [facility] Patient was Admitted to: [facility]. , for: abdominal pain from 03/16 to 03/26 Referral ordered by: [facility] Referral received for: Jail, PT, and OT Planned start of care date:Yes, Date 03/27 Start of care completed on: 03/27 Report/Concerns of:None Symptoms: abdominal pain continues. Vitals: T 97.4 P 104 RR 18 BP 108/72 SP O2 98 Lung sounds clear Weight n/a Blood sugar n/a Narrative: Denisse calling from [facility] Home Health. Still has the g-tube. Not using it. Patient is eating. Still has abdominal pain. It is the same. Can't stand. Next Nursing visit(s) on Wednesday They will call with any updates or additional concerns from the upcoming HH visit. Last Office Visit: 03/29/2023 Has patient been scheduled or seen in the office for a follow up visit: Yes. Today on 03/29/23 Advised that orders will be signed by Dr. Leonard and to fax to the office for signature. documented in this encounter Plan of Treatment Upcoming Encounters Date Type Department Care Team (Late st Contact Info) Description 07/15/2023 8:40 AM EST Office Visit [address] [place] [phone] Kinjal Reynoso PA-C [place] [phone] 08/20/2023 1:50 PM EST Telemedicine Nutrition & Weight Management, [facility] [address] [place] [address] Kaity Yap RDN [address] [place] [address] 09/20/2023 12:40 PM EDT Office Visit Nutrition & Weight Management, [facility] [address] [place] [address] Cee Santizo PA-C [address] [place] [address] Health Maintenance Due Date Last Done Comments [...] this encounter Medical Devices Implanted Type Area Electrical Checkout Mechanic Device Identifier Shelf Expiration Date Model / Serial / Lot Port Implant W/8f Poly Cath - [id number] Implanted:Qty : 1 on 05/18/2023 by Juan Jose Connell DO at OR [facility] Right: Chest CR BARD : PERIPHERAL VASC[employer] [id number] 11/18/2024 [id number] / / [id number] documented as of this encounter Additional Health [...] the patient have Health Care Power of Asset Protection Officer? No Full Code 07/18/2021 7:04 AM 08/03/2021 4:12 PM This order reflects the patients wishes and were consensually agreed upon. Question Answer Comments Discussion of Advance Directives occurred with: Not Discussed Care Teams Foot Press Operator Relationship Specialty Start Date End Date Kinjal Reynoso PA-C [address] [place] [phone] PCP - General Physician Linoleum Installer 11/05/22 documented as of this encounter
--- OUTSIDE RECORDS SUMMARY | 2023-08-07 19:28 | External Medical Summary | Summary of Care ---
Author Name Unknown Organization [facility] Address [address] [place] [address] Phone [phone] Care Team Providers Care Professor Of French Name Role Phone Kinjal Reynoso PA-C Primary Care Provider [phone] Reason for Referral * Evaluate & Treat - Unlimited Visits (Within 3 days (urgent)) - Pending Review Specialty Diagnoses / Procedures Referred By Carmen kirby Referred To Contact Wound Care Diagnoses Postoperative wound dehiscence, subsequent encounter Abdominal wall cellulitis Kinjal Reynoso PA-[place] [facility] [place] [address] Referral ID Status Reason Start Date Expiration Date Visits Requested Visits Authorized [id number] Pending Review Specialty Services Required 3 [phone] Question Answer Referral Priority Within 3 days (urgent) Where should this appointment be scheduled? [facility] Assess for: Other: abdominal incisional dehiscence. Reason for Visit * Reason Comments Hospital Follow-Up Pt is concerned with hole where feeding tube was inserted- needs to be repackedDiscuss pain medicationPt has not had a BM since 06/06Patient has been verbally educated on the need or importance of Immunizations: HPV and flu Encounter Details Date Type Department Care Team ([facility] Contact Info) Description 06/17/2023 2:20 PM EST Office Visit [facility] [address] [place] [phone] Kinjal Reynoso PA-C [address] [place] [address] Postoperative wound dehiscence, subsequent encounter*; Abdominal wall cellulitis; Chronic abdominal pain; Chronic female pelvic pain [...] Naloxone HCl 4 MG/0.1ML Nasal Liquid (Narcan Nasal)Indications:C hronic pelvic pain in female,MEDICATION USE AGREEMENT,Chronic abdominal pain ADMINISTER 1 SPRAY INTO 1 NOSTRIL FOR SUSPECTED OPIOID OVERDOSE - SEEK IMMEDIATE MEDICAL ATTENTION. [email or web address] Each 3 03/31/2023 Active Additional Information Patient not taking.Reported on 05/18/2023 Peptamen 1.5 Oral Liquid Administer 1000 mL daily, as directed through J Tube via feeding pump [id number] mL 11 04/12/2023 Active Lansoprazole 15 MG [...] Capsule before bedtime. 90 Capsule 0 06/14/2023 07/16/19 24 Active Promethazine HCl 25 MG [...] for 10 days. 20 Tablet 0 06/16/2023 06/27/19 24 Active oxyCODONE HCl 15 MG Oral Tablet (Roxicodone)Indicat ions:Chronic abdominal pain,Chronic female pelvic pain Take 1 Tablet by mouth every 6 hours as needed for Pain, Severe or Pain, Moderate. Continuation of Care. Weaning down. Dispense 24 tablets for 7 day supply. Next refill due 06/28/22. 24 Tablet 0 06/18/2023 Active Ondansetron 4 MG Oral Tablet Disintegrating (Zofran) Dissolve 1 Tablet on tongue every 8 hours as needed for Nausea. 90 Tablet 0 04/16/2023 06/17/20 Discontinu ed(Patient preference /discontin uation) valACYclovir (Valtrex) 50 mg/mL oral suspension Administer 20 mL into J tube in the morning and 20 mL before bedtime. 120 mL 0 05/06/2023 06/17/20 Discontinu ed(Patient preference /discontin uation) Regenecare 2 % External Gel (Lidocaine-Collagen -Aloe Vera) Apply topically to affected area. 0 05/18/2023 06/17/20 Discontinu ed(Patient preference /discontin uation) Amoxicillin 250 MG/5ML Oral Suspension Reconstituted (Amoxil) Administer 10 mL into J tube in the morning and 10 mL at noon and 10 mL before bedtime -do all this for 10 days. 300 mL 0 05/24/2023 06/17/20 23 Discontinu ed(Patient preference /discontin uation) oxyCODONE HCl 15 MG Oral Tablet (Roxicodone)Indicat ions:Chronic abdominal pain,Chronic female pelvic pain Take 1 Tablet by mouth every 6 hours as needed for Pain, Severe or Pain, Moderate. 39 Tablet 0 06/11/2023 06/17/20 23 Discontinu ed(Refill) documented as of this encounter (statuses as [...] Sign Reading Time Taken Comments Blood Pressure 122/78 06/17/2023 2:23 PM EST Pulse 102 06/17/2023 2:23 PM EST Temperature 36.2 C (97.1 F) 06/17/2023 2:23 PM ES T Respiratory Rate 16 06/17/2023 2:23 PM EST Oxygen Saturation 98% 06/17/2023 2:23 PM EST Inhaled Oxygen Concentration - - Weight 73.6 kg (162 lb 3.2 oz) 06/17/2023 2:23 P M EST Height - - Body Mass Index 29.67 06/02/2023 10:19 AM EST documented in this encounter Functional [...] No 02/02/2023 documented as of this encounter Progress Notes * Kinjal Reynoso PA-C - 06/17/2023 2:28 PM EST Images from the original note were not included. History of Present Illness Chief Complaint Patient presents with Hospital Follow-Up Pt is concerned with hole where feeding tube was inserted-needs to be repacked Discuss pain medication Pt has not had a BM since 06/06 Patient has been verbally educated on the need or importance of Immunizations: HPV and flu Patient presents for hospital follow-up. She was admitted [facility] for revision of percutaneous jejunostomy tube 06/07/23 to 06/11/23. She had gone to ED both on 06/14/2023 and again on 06/16/2023 for incisional dehiscence and abdominal wall cellulitis. She initially was placed on cefdinir, this was changed to ciprofloxacin yesterday after results of culture showing pseudomonas. Patient continues to have significant abdominal pain for which she takes oxycodone 15 mg every 6 hours as needed. She had run out pills on last Wednesday calling in urgent refill which was granted for 10 days. However, there was concern that she had been in the hospital and therefore should not have run out pills on Wednesday. Pt is adamant that she has been taking medication as prescribed. She is still agreeable to slowly weaning off. She would like to work to first drop dose to 15mg TID from QID. Current Medications: oxyCODONE HCl 15 MG Oral Tablet (Roxicodone) Ciprofloxacin HCl 500 MG Oral Tablet (Cipro) Gabapentin 300 MG Oral Capsule (Neurontin) Peptamen 1.5 Oral Liquid Promethazine HCl 25 MG Oral Tablet (Phenergan) Lidocaine 5 % External Patch (Lidoderm) Polyethylene Glycol 3350 17 GM/SCOOP Oral Powder (MiraLax) Lansoprazole 15 MG Oral Capsule Delayed Release Naloxone HCl 4 MG/0.1ML Nasal Liquid (Narcan Nasal) Acetaminophen 325 MG Oral Tablet (Tylenol) Norethindrone Acetate 5 MG Oral Tablet Physical Exam BP 122/78 | Pulse 102 | Temp 36.2 C (97.1 F) (Tympanic) | Resp 16 | Wt 73.6 kg (162 lb 3.2 oz) | LMP (LMP Unknown) | SpO2 98% | BMI 29.67 kg/m | BSA 1.79 m Physical Exam Vitals and nursing note reviewed. Constitutional: General: She is not in acute distress. Appearance: Normal appearance. She is not ill-appearing, toxic-appearing or diaphoretic. Cardiovascular: Rate and Rhythm: Normal rate and regular rhythm. Heart sounds: Normal heart sounds. Pulmonary: Effort: Pulmonary effort is normal. Breath sounds: Normal breath sounds. Abdominal: Musculoskeletal: Right lower leg: No edema. Left lower leg: No edema. Neurological: Mental Status: She is alert and oriented to person, place, and time. Assessment and Plan Postoperative wound dehiscence, subsequent encounter - DURABLE MEDICAL EQUIPMENT - DURABLE MEDICAL EQUIPMENT - WOUND CARE REFERRAL OP Abdominal wall cellulitis - DURABLE MEDICAL EQUIPMENT - DURABLE MEDICAL EQUIPMENT - WOUND CARE REFERRAL OP Chronic abdominal pain - oxyCODONE HCl 15 MG Oral Tablet (Roxicodone); Take 1 Tablet by mouth every 6 hours as needed for Pain, Severe or Pain, Moderate. Continuation of Care. Weaning down. Dispense 24 tablets for 7 day supply. Next refill due 06/28/22. Chronic female pelvic pain Refill sent for 7 day supply a little early due to holiday and weekend hours. Pt is to make 24 tablets last 7 days. She is to try to take oxycodone every 8 hours rather than every 6. No further refill will be sent until 06/28/22. - oxyCODONE HCl 15 MG Oral Tablet (Roxicodone); Take 1 Tablet by mouth every 6 hours as needed for Pain, Severe or Pain, Moderate. Continuation of Care. Weaning down. Dispense 24 tablets for 7 day supply. Next refill due 06/28/22. Pt feels she can change packing herself at home. I have provided orders for packing strip material. Wrap-Up Return for As scheduled. Time: I spent a total of 30-39 minutes (exact time 30 mins) on the date of service in [...] for clarification arises. documented in this encounter Plan of Treatment Upcoming Encounters Date Type Department Care Team (Late st Contact Info) Description 07/15/2023 8:40 AM EST Office Visit Family [facility], [place] [address] [place] [phone] Kinjal Reynoso PA-C [address] [place] [address] 08/20/2023 1:50 PM EST Telemedicine Nutrition & Weight Management, [facility] [address] [place] [address] Kaity Yap RDN [address] [place] [address] 09/20/2023 12:40 PM EDT Office Visit Nutrition & Weight Management, [facility] [address] [place] [address] Cee Santizo PA-C [address] [place] [address] Scheduled Referrals Name Type Priority Associated Diagnoses Orde r Schedule WOUND CARE REFERRAL OP Referral Within 3 days (urgent) Postoperative wound dehiscence, subsequent encounter Abdominal wall cellulitis Ordered: 06/18/2023 Health Maintenance Due Date Last Done Comments [...] this encounter Medical Devices Implanted Type Area Production Superintendent Device Identifier Shelf Expiration Date Model / Serial / Lot Port Implant W/8f Poly Cath - [id number] Implanted:Qty : 1 on 05/18/2023 by Juan Jose Connell, at OR [facility] Right: Chest CR BARD : PERIPHERAL VASCULAR [id number] 11/18/2024 [id number] / / [id number] documented as of this encounter Visit Diagnoses Diagnosis Postoperative wound dehiscence, subsequent encounter- Primary Abdominal wall cellulitis Cellulitis and abscess of trunk Chronic abdominal pain Abdominal pain, unspecified site [...] the patient have Health Care Power of Fence Erector? No Full Code 07/18/2021 7:04 AM 08/03/2021 4:12 PM This order reflects the patients wishes and were consensually agreed upon. Question Answer Comments Discussion of Advance Directives occurred with: Not Discussed Care Teams Professor Of French Relationship Specialty Start Date End Date Kinjal Reynoso PA-C [address] [place] [phone] PCP - General Physician Non Destructive Evaluation Technician 11/05/22 documented as of this encounter
--- OUTSIDE RECORDS SUMMARY | 2023-08-07 19:28 | External Medical Summary | Summary of Care ---
Author Name Unknown Organization [facility] Address [address] [place] [address] Phone [phone] Care Team Providers Care Motion Picture Camera Lens Technician Name Role Phone Kinjal Reynoso PA-C Primary Care Provider [phone] Reason for Visit * Reason Onset Date Comments Appointment 06/15/2023 Hospital f/u [facility] PCP Encounter Details Date Type Department Care Team (Late st Contact Info) Description 06/15/2023 Telephone [facility] [address] [facility] [place] [phone] Kinjal Reynoso PA-C [address] [facility] [place] [address] Appointment (Hospital f/u with PCP) Allergies Active Allergy Reactions Criticality Noted Date [...] as of this encounter (statuses as of 06/15/2023) Medications Medication Sig Dispensed Refills Start Date [...] OPIOID OVERDOSE - SEEK IMMEDIATE MEDICAL ATTENTION. [email or web address] 2 Each 3 03/31/2023 Active Additional Information Patient not taking.Reported on 05/18/2023 Peptamen 1.5 Oral Liquid Administer 1000 mL daily, as directed through J Tube via feeding pump 52238 mL 11 04/12/2023 Active Ondansetron 4 MG Oral Tablet Disintegrating (Zofran) Dissolve 1 Tablet on tongue every 8 hours as needed for Nausea. 90 Tablet 0 04/16/2023 Active valACYclovir (Valtrex) 50 mg/mL oral suspension Administer 20 mL into J tube in the morning and 20 mL before bedtime. 120 mL 0 05/06/2023 Active Additional Information Patient not taking.Reported on 05/18/2023 Lansoprazole 15 MG Oral Capsule Delayed Release 2 Capsules. 0 05/18/2023 Active Regenecare 2 % External Gel (Lidocaine-Collagen- Aloe Vera) Apply topically to affected area. 0 05/18/2023 Active Polyethylene Glycol 3350 17 [...] 12 hours.. 30 Patch 0 06/03/2023 Active oxyCODONE HCl 15 MG Oral Tablet (Roxicodone)Indicati ons:Chronic abdominal pain,Chronic female pelvic pain Take 1 Tablet by mouth every 6 hours as needed for Pain, Severe or Pain, Moderate. 39 Tablet 0 06/11/2023 Active Cefdinir 300 MG Oral Capsule (Omnicef) Take 1 Capsule by mouth in the morning and 1 Capsule before bedtime - do all this for 5 days. 10 Capsule 0 06/14/2023 3 Active Gabapentin 300 MG Oral Capsule [...] too strong. 90 Tablet 0 06/14/2023 Active documented as of this encounter (statuses as of 06/15/2023) Active Problems Problem Noted Date Diagnosed Date [...] as of this encounter (statuses as of 06/15/2023) Resolved Problems Problem Noted Date Diagnosed Date [...] as of this encounter (statuses as of 06/15/2023) Immunizations Name Administration Dates Next Due DTaP [...] encounter Miscellaneous Notes * Telephone Encounter - Maximilian Bauer LPN - 06/15/2023 9:13 AM EST PCP requesting pt be contacted and scheduled for hospital f/u as pt was recently admitted to [facility] (06/07-06/12) and was in [facility] on 06/14. Pt contacted and scheduled for hospital f/u on 06/17. Pt aware and agreeable to date/time of OV. documented in this encounter Plan of Treatment Upcoming Encounters Date Type Department Care Team (Late st Contact Info) Description 06/17/2023 2:20 PM EST Office Visit [facility] [place] [address] [phone] Kinjal Reynoso PA-C [address] [place] [address] 07/15/2023 8:40 AM EST [facility] [address] [place] [address] [phone] Kinjal Reynoso PA-C [address] [place] [address] [address] 08/20/2023 1:50 PM EST Telemedicine Nutrition & Weight Management, [facility] [address] [place] [address] Kaity Yap RDN [address] [place] [address] 09/20/2023 12:40 PM EDT Office Visit Nutrition & Weight Management, [facility] [address] [place] [address] Cee Santizo PA-C [address] [place] [address] Health Maintenance Due Date Last Done Comments [...] this encounter Medical Devices Implanted Type Area Motor Tune Up Specialist Device Identifier Shelf Expiration Date Model / Serial / Lot Port Implant W/8f Poly Cath - [id number] Implanted:Qty : 1 on 05/18/2023 by Juan Jose Connell, DO at OR [facility] Right: Chest CR BARD : PERIPHERAL VASCULAR [id number] 11/18/2024 [id number] / / [id number] documented as of this encounter Advance Directives [...] the patient have Health Care Power of School Transportation Director? No Full Code 07/18/2021 7:04 AM 08/03/2021 4:12 PM This order reflects the patients wishes and were consensually agreed upon. Question Answer Comments Discussion of Advance Directives occurred with: Not Discussed Care Teams Motion Picture Camera Lens Technician Relationship Specialty Start Date End Date Kinjal Reynoso PA-C [address] [address] PCP - General Physician Data Entry Assistant 11/05/22 documented as of this encounter
--- OUTSIDE RECORDS SUMMARY | 2023-08-07 19:28 | External Medical Summary ---
Author Name Unknown Address Unknown Organization K1F:LABORATORY [facility] - [address] [place] [address] Laboratory Report Ordering Provider Test Date Status EBER NUNEZ 06/14/2023 13:18:48 Final Observation Date Value Abnormality Reference (Units ) Status Lipase 06/14/2023 13:18:48 20 13-60 (U/L ) Final Performing Location LABORATORY [facility] - [address] [place] [address]
--- OUTSIDE RECORDS SUMMARY | 2023-08-07 19:28 | External Medical Summary ---
Author Name Unknown Address Unknown Organization K1F:LABORATORY [facility] - [address] [facility] [place] [address] Laboratory Report Ordering Provider Test Date Status EBER NUNEZ 06/14/2023 13:18:48 Final Observation Date Value Abnormality Reference (Units ) Status BUN 06/14/2023 13:18:48 4 Below low normal 6-20 (mg/dL) Final Creatinine 06/14/2023 13:18:48 0.5 0.5-1.0 (mg/dL) Final Glomerular filtration rate/1.73 sq M.predicted [Volume Rate/Area] in Serum, Plasma or Blood by Creatinine-based formula (CKD-EPI) 06/14/2023 13:18:48 >90 >=60 (mL/min) Final eGFR is calculated based on the CKD-EPI 2020 equation SODIUM 06/14/2023 13:18:48 140 135-146 (m mol/L) Final Potassium 06/14/2023 13:18:48 3.8 3.5-5.1 (m mol/L) Final Cl 06/14/2023 13:18:48 103 98-107 (mm ol/L) Final CO2 06/14/2023 13:18:48 24 22-32 (mmo l/L) Final Anion gap 06/14/2023 13:18:48 13 7-15 (mmol /L) Final Glucose 06/14/2023 13:18:48 91 70-120 (mg /dL) Final Albumin 06/14/2023 13:18:48 3.4 Below low normal 3.8 -5.0 (g/dL) Final AST (Aspartate aminotransferase) 06/14/2023 13:18:48 19 10-35 (U/L) Fin al Alk Phos 06/14/2023 13:18:48 81 35-130 (U/ L) Final Bilirubin, Total 06/14/2023 13:18:48 0.2 <=1 .2 (mg/dL) Final Calcium 06/14/2023 13:18:48 9.3 8.4-10.2 ( mg/dL) Final Protein 06/14/2023 13:18:48 6.7 6.0-8.3 (g /dL) Final ALT (Alanine aminotransferase) 06/14/2023 13:18:48 15 10-35 (U/L) Spencer esteves Performing Location LABORATORY [address] [place] [address]
--- OUTSIDE RECORDS SUMMARY | 2023-08-07 19:28 | External Medical Summary ---
Author Name Unknown Address Unknown Organization K1F:LABORATORY [facility] - [address] [place] [address] Laboratory Report Ordering Provider Test Date Status ANGEL VITAL 06/14/2023 13:19:13 Final Observation Date Value Abnormality Reference (Units ) Status CRP, low-sensitivity 06/14/2023 13:19:13 77 Above high normal <=5 (mg/L) Final Performing Location LABORATORY [facility] - [address] [place] [address]
--- OUTSIDE RECORDS SUMMARY | 2023-08-07 19:28 | External Medical Summary | Summary of Care ---
Author Name Unknown Organization [facility] Address [address] [place] [address] Phone [phone] Care Team Providers Care Field Human Resources Manager Name Role Phone Kinjal Reynoso PA-C Primary Care Provider [phone] Reason for Referral * Medication Prior Authorization - Pending Review Specialty Diagnoses / Procedures Referred By Contdulce t Referred To Contact Diagnoses Chronic abdominal pain Chronic female pelvic pain Franck Cota MD [place] [phone] Referral ID Status Reason Start Date Expiration Date V isits Requested Visits Authorized [id number] Pending Review 999 999 Reason for Visit * Reason Onset Date Comments Medication Refill 06/11/202306/11 Encounter Details Date Type Department Care Team (Late st Contact Info) Description 06/11/2023 Refill [facility] [place] [phone] Kinjal Reynoso PA-C [place] [phone] Chronic abdominal pain; Chronic female pelvic pain [...] as of this encounter (statuses as of 06/11/2023) Medications Medication Sig Dispensed Refills Start Date [...] OPIOID OVERDOSE - SEEK IMMEDIATE MEDICAL ATTENTION. [email or web address] 2 Each 3 03/31/2023 Active Additional Information Patient not taking.Reported on 05/18/2023 Gabapentin 100 MG Oral Capsule (Neurontin) Take 2 Capsules by mouth in the morning and 2 Capsules at noon and 2 Capsules before bedtime. 180 Capsule 0 03/31/2023 Active Peptamen 1.5 Oral Liquid Administer 1000 mL daily, as directed through J Tube via feeding pump 03371 mL 11 04/12/2023 Active Ondansetron 4 MG [...] 05/18/2023 Active Regenecare 2 % External Gel (Lidocaine-Collagen -Aloe [...] Pain, Moderate. 39 Tablet 0 06/11/2023 Active oxyCODONE HCl 15 MG Oral Tablet (Roxicodone)Indicat ions:Chronic abdominal pain,Chronic female pelvic pain Take 1 Tablet by mouth every 6 hours as needed for Pain, Severe or Pain, Moderate. 120 Tablet 0 05/12/2023 06/11/20 23 Discontinu ed(Refill) documented as of this encounter (statuses as of 06/11/2023) Active Problems Problem Noted Date Diagnosed Date [...] as of this encounter (statuses as of 06/11/2023) Resolved Problems Problem Noted Date Diagnosed Date [...] as of this encounter (statuses as of 06/11/2023) Immunizations Name Administration Dates Next Due DTaP [...] encounter Miscellaneous Notes * Telephone Encounter - Rosmery Nguyen OSA - 06/11/2023 4:19 PM EST Pt calling as the pharmacy did not receive the prescription yet and she needs it before 5pm when they close. System shows that it was signed by doctor but it was not sent to destination. Can this be sent SATHYA. * Telephone Encounter - Tanja Rollins LPN - 06/11/2023 3:53 PM ESTSigned Prescriptions: Disp Refills oxyCODONE HCl 15 MG Oral Tablet (Roxicodon*39 Tab*0 Sig: Take 1Tablet by mouth every 6 hours as needed for Pain, Severe or Pain, Moderate.Authorizing Provider: FRANCK COTA * Telephone Encounter - Tanja Rollins LPN - 06/11/2023 3:52 PM EST Pt aware of below message and refill. * Telephone Encounter - Franck Cota MD - 06/11/2023 3:50 PM EST Pending Prescriptions: Disp Refills oxyCODONE HCl 15 MG Oral Tablet (Roxicodon*120 Ta*0 Sig: Take 1 Tablet by mouth every 6 hours as needed for Pain, Severe or Pain, Moderate. * Telephone Encounter - Franck Cota MD - 06/11/2023 3:49 PM EST Pt's PCP has left the office for the day. In the future she should not wait until she is down to one pill to contact us. I will send in #30, but she will need to get further refills from PCP. * Telephone Encounter - Akua Armando LPN - 06/11/2023 3:13 PM EST Pt's provider has left for the day. Can medication be refilled? * Telephone Encounter - Yariel Paiz OSA - 06/11/2023 3:07 PM EST Pt calling back because Pharmacy still does not have script and they close at 5pm today, spk with Akua who advised that pt provider has left for the day so they will need to get this over to another provider, they will call pt IF there is a problem. Advised pt, no further questions. * Telephone Encounter - Flor Rahman RPh - 06/11/2023 12:24 PM ESTPending Prescriptions: Disp Refills oxyCODONE HCl 15 MG Oral Tablet (Roxicodon*120 Ta*0 Sig: Take 1 Tablet by mouth every 6 hours as needed for Pain, Severe or Pain, Moderate. * Telephone Encounter - Flor Rahman RPh - 06/11/2023 12:23 PM EST I have reviewed the patients controlled substance dispensing history in the Prescription Drug Monitoring Program in compliance with the [facility] regulations before prescribing a controlled substance. PDMP checked on 06/11/2023. Pending Prescriptions: Disp Refills oxyCODONE HCl 15 MG Oral Tablet (Roxicodo*120 Ta*0 Sig: Take 1 Tablet by mouth every 6 hours as needed for Pain, Severe or Pain, Moderate. Last Visit: 05/05/2023 (in office), 09/10/2022 (telemedicine) Next Visit: 07/15/2023 Date medication was last filled: 05/12 Date medication is due for refill: 06/10 Pharmacy: [facility] Is this request for a controlled [...] upon request. Please approve if appropriate. Thanks, Flor Rahman, PharmD Clinical Pharmacist Centralized Clinical Pharmacy Services (CCPS) (formerly Telepharmacy) [phone] 06/11/2023 12:23 PM * Telephone Encounter - Vicki Abbott CPhT - 06/11/2023 11:25 AM EST Pt states the pharmacy closes at 5 so she needs to poultry picker today. Did you pend patient's preferred pharmacy and medication before forwarding?yes Pharmacy: [facility] Pending Prescriptions: Disp Refills oxyCODONE HCl 15 MG Oral Tablet (Roxicodo*120 Ta*0 Sig: Take 1 Tablet by mouth every 6 hours as needed for Pain, Severe or Pain, Moderate. Last Visit: 05/05/2023 (in office), 09/10/2022 (telemedicine) Next Visit: 07/15/2023 If no future appointments scheduled, and last appointment is greater than a year ago, please schedule patient for a follow-up appointment Last date the medication was ordered: 05/12/23 Is this request for a controlled substance?Yes, What was the last refill date 05/12/23 w/ quantity 120 and dosage 15 mg and Urine Drug Screen was completed Urine Drug Screen: Results for orders placed or performed in [...] purposes. Confirmatory testing is available upon request. Patient Phone Numbers mobile [phone] Labs: Lab Results Component Value Date/Time CREAT 0.6 05/29/2023 10:22 PM CREAT 0.69 03/21/2023 12:00 AM CREAT 0.8 06/10/2020 11:01 AM POTASSIUM 3.4 (L) 05/29/2023 10:22 PM POTASSIUM 3.9 03/21/2023 12:00 AM POTASSIUM 3.4 (L) 01/04/2021 02:25 AM POTASSIUM 3.5 06/10/2020 11:01 AM TSH 0.76 03/29/2023 12:06 PM TSH 1.15 03/23/2023 12:00 AM TSH 0.76 03/29/2020 02:40 PM LDLCALC 165 (H) 03/29/2023 12:06 PM LDLCALC 106 12/04/2016 11:50 AM ALT 18 05/29/2023 10:22 PM ALT 10 06/10/2020 11:01 AM HGBA1C 5.0 03/02/2023 02:29 AM documented in this encounter Plan of Treatment Upcoming Encounters Date Type Department Care Team (Late st Contact Info) Description 07/15/2023 8:40 AM EST Office Visit [facility] [address] [place] [address] [phone] Kinjal Reynoso PA-C [address] [place] [address] [address] 08/20/2023 1:50 PM EST Telemedicine Nutrition & Weight Management, [facility] [address] [place] [address] Kaity Yap RDN [address] [place] [address] 09/20/2023 12:40 PM EDT Office Visit Nutrition & Weight Management, [facility] [address] [place] [address] Cee Santizo PA-C [address] [place] [address] Health Maintenance Due Date Last Done Comments [...] this encounter Medical Devices Implanted Type Area Program Counselor Device Identifier Shelf Expiration Date Model / Serial / Lot Port Implant W/8f Poly Cath - [id number] Implanted:Qty : 1 on 05/18/2023 by Juan Jose Connell, DO at OR [facility] Right: Chest CR BARD : PERIPHERAL VASCULAR [id number] 11/18/2024 [id number] / / [id number] documented as of this encounter Visit Diagnoses [...] the patient have Health Care Power of Medical Office Specialist? No Full Code 07/18/2021 7:04 AM 08/03/2021 4:12 PM This order reflects the patients wishes and were consensually agreed upon. Question Answer Comments Discussion of Advance Directives occurred with: Not Discussed Care Teams Field Human Resources Manager Relationship Specialty Start Date End Date Kinjal Reynoso PA-C [address] [place] [address] PCP - General Physician Cad Programmer 11/05/22 documented as of this encounter
--- OUTSIDE RECORDS SUMMARY | 2023-08-07 19:28 | External Medical Summary ---
Author Name Unknown Address Unknown Organization K1F:LABORATORY [facility] - [address] [place] [address] [address] [place] [address] Laboratory Report Ordering Provider Test Date Status EBER NUNEZ 06/14/2023 13:18:48 Final Observation Date Value Abnormality Reference (Units ) Status WBC, Total 06/14/2023 13:18:48 4.31 4.00-10.80 (K/uL) Final RBC 06/14/2023 13:18:48 3.87 3.85-5.15 (M/uL) Final Hemoglobin 06/14/2023 13:18:48 11.9 Below low normal 12.0-15.3 (g/dL) Final HCT 06/14/2023 13:18:48 33.9 Below low normal 36.0-45.2 (%) Final MCV 06/14/2023 13:18:48 87.6 81.5-97.5 (fL) Final MCH 06/14/2023 13:18:48 30.7 27.0-34.0 (pg) Final MCHC 06/14/2023 13:18:48 35.1 32.0-36.0 (g/dL) Final RDW 06/14/2023 13:18:48 11.7 11.5-15.5 (%) Final Platelets 06/14/2023 13:18:48 274 140-400 (K/uL) Final MPV 06/14/2023 13:18:48 9.7 6.6-11.1 (fL) Final Nucleated erythrocytes/100 leukocytes [Ratio] in Blood by Automated count 06/14/2023 13:18:48 0 <=0 (/100 WBCs) Final Performing Location LABORATORY [facility] - [address] [place] [address]
--- OUTSIDE RECORDS SUMMARY | 2023-08-07 19:28 | External Medical Summary | Summary of Care ---
Author Name Unknown Organization [facility] Address [address] [place] [address] Phone [phone] Care Team Providers Care Life Insurance Specialist Name Role Phone Kinjal Reynoso PA-C Primary Care Provider [phone] Reason for Referral * Medication Prior Authorization - Pending Review Specialty Diagnoses / Procedures Referred By Contdulce t Referred To Contact Diagnoses Chronic abdominal pain Chronic female pelvic pain Franck Cota MD [place] [address] Referral ID Status Reason Start Date Expiration Date V isits Requested Visits Authorized [id number] Pending Review 999 999 Reason for Visit * Reason Onset Date Comments Medication Refill 06/11/202306/11 Encounter Details Date Type Department Care Team (Late st Contact Info) Description 06/11/2023 Refill [facility] [place] [phone] Kinjal Reynoso PA-C [place] [phone] Chronic abdominal pain; Chronic female pelvic pain [...] OPIOID OVERDOSE - SEEK IMMEDIATE MEDICAL ATTENTION. [email or web address] 2 Each 3 03/31/2023 Active Additional Information Patient not taking.Reported on 05/18/2023 Gabapentin 100 MG Oral Capsule (Neurontin) Take 2 Capsules by mouth in the morning and 2 Capsules at noon and 2 Capsules before bedtime. 180 Capsule 0 03/31/2023 Active Peptamen 1.5 Oral Liquid Administer 1000 mL daily, as directed through J Tube via feeding pump 11724 mL 11 04/12/2023 Active Ondansetron 4 MG [...] encounter Miscellaneous Notes * Telephone Encounter - Tanja Rollins LPN [...] be refilled? * Telephone Encounter - Yariel Paiz, MC - 06/11/2023 3:07 PM EST Pt calling [...] questions. * Telephone Encounter - Flor Rahman RP - 06/11/2023 12:24 PM ESTPending Prescriptions: Disp Refills oxyCODONE HCl 15 MG Oral Tablet (Roxicodon*120 Ta*0 Sig: Take 1 Tablet by mouth every 6 hours as needed for Pain, Severe or Pain, Moderate. * Telephone Encounter - Flor Rahman [facility] - 06/11/2023 12:23 PM EST I have reviewed the patients controlled substance dispensing history in the Prescription Drug Monitoring Program in compliance with the [facility] regulations before prescribing a controlled substance. [...] medication is due for refill: 06/10 Pharmacy: [facility] Is this request for a controlled [...] request. Please approve if appropriate. Thanks, Flor aRhman, PharmD Clinical Pharmacist Centralized Clinical Pharmacy Services (CCPS) (formerly Telepharmacy) [phone] 06/11/2023 12:23 PM * Telephone Encounter - Vicki Abbott [facility] - 06/11/2023 11:25 AM EST Pt states the pharmacy closes at 5 so she needs to sweet pickled fruit maker today. Did you pend patient's preferred pharmacy and medication before forwarding?yes Pharmacy: [facility] Pending Prescriptions: Disp Refills oxyCODONE HCl [...] available upon request. Patient Phone Numbers mobile [phone] Labs: Lab Results Component Value Date/Time CREAT [...] 07/15/2023 8:40 AM EST Office Visit Family Practice, [place] [address] [phone] Kinjal Reynoso PA-C [address] [place] [address] [address] 08/20/2023 1:50 PM EST Telemedicine Nutrition & Weight Management, [facility] [address] [place] [address] Kaity Yap RDN [address] [place] [address] 09/20/2023 12:40 PM EDT Office Visit Nutrition & Weight Management, [facility] [address] [place] [address] Cee Santizo PA-C [address] [place] [address] Health Maintenance Due Date Last Done Comments [...] this encounter Medical Devices Implanted Type Area Pattern Gater Device Identifier Shelf Expiration Date Model / Serial / Lot Port Implant W/8f Poly Cath - [id number] Implanted:Qty : 1 on 05/18/2023 by Juan Jose Connell, DO at OR [facility] Right: Chest CR BARD : PERIPHERAL VASCULAR [id number] 11/18/2024 [id number] / / [id number] documented as of this encounter Visit Diagnoses [...] the patient have Health Care Power of Shipping Supervisor? No Full Code 07/18/2021 7:04 AM 08/03/2021 4:12 PM This order reflects the patients wishes and were consensually agreed upon. Question Answer Comments Discussion of Advance Directives occurred with: Not Discussed Care Teams Life Insurance Specialist Relationship Specialty Start Date End Date Kinjal Reynoso PA-C [address] [place] [address] [address] PCP - General Physician Selvage Machine Operator 11/05/22 documented as of this encounter
--- OUTSIDE RECORDS SUMMARY | 2023-08-07 19:28 | External Medical Summary ---
Author Name Unknown Address Unknown Organization K1F:[facility] - [address] [facility] [place] [address] Laboratory Report Ordering Provider Test Date Status EBER NUNEZ 06/14/2023 11:53:21 Final ADMITTED patient Observation Date Value Abnormality Reference (Units ) Status Adenovirus DNA [Presence] in Nasopharynx by SUHAIL with non-probe detection 06/14/2023 11:53:21 Negative Negative Final Human coronavirus 229E RNA [Presence] in Nasopharynx by SUHAIL with non-probe detection 06/14/2023 11:53:21 Negative Negative Final Human coronavirus HKU1 RNA [Presence] in Nasopharynx by SUHAIL with non-probe detection 06/14/2023 11:53:21 Negative Negative Final Human coronavirus NL63 RNA [Presence] in Nasopharynx by SUHAIL with non-probe detection 06/14/2023 11:53:21 Negative Negative Final Human coronavirus OC43 RNA [Presence] in Nasopharynx by SUHAIL with non-probe detection 06/14/2023 11:53:21 Negative Negative Final SARS-CoV-2 (COVID-19) RNA [Presence] in Nasopharynx by SUHAIL with non-probe detection 06/14/2023 11:53:21 Negative Negative Final Human metapneumovirus RNA [Presence] in Nasopharynx by SUHAIL with non-probe detection 06/14/2023 11:53:21 Negative Negative Final Rhinovirus+Enterovirus RNA [Presence] in Nasopharynx by SUHAIL with non-probe detection 06/14/2023 11:53:21 Negative Negative Final Influenza virus A RNA [Presence] in Nasopharynx by SUHAIL with non-probe detection 06/14/2023 11:53:21 Negative Negative Final Influenza virus B RNA [Presence] in Nasopharynx by SUHAIL with non-probe detection 06/14/2023 11:53:21 Negative Negative Final Parainfluenza virus 1 RNA [Presence] in Nasopharynx by SUHAIL with non-probe detection 06/14/2023 11:53:21 Negative Negative Final Parainfluenza virus 2 RNA [Presence] in Nasopharynx by SUHAIL with non-probe detection 06/14/2023 11:53:21 Negative Negative Final Parainfluenza virus 3 RNA [Presence] in Nasopharynx by SUHAIL with non-probe detection 06/14/2023 11:53:21 Negative Negative Final Parainfluenza virus 4 RNA [Presence] in Nasopharynx by SUHAIL with non-probe detection 06/14/2023 11:53:21 Negative Negative Final Respiratory syncytial virus RNA [Presence] in Nasopharynx by SUHAIL with non-probe detection 06/14/2023 11:53:21 Negative Negative Final Bordetella pertussis.pertussis toxin promoter region [Presence] in Nasopharynx by SUHAIL with non-probe detection 06/14/2023 11:53:21 Negative Negative Final Chlamydophila pneumoniae DNA [Presence] in Nasopharynx by SUHAIL with non-probe detection 06/14/2023 11:53:21 Negative Negative Final Mycoplasma pneumoniae DNA [Presence] in Nasopharynx by SUHAIL with non-probe detection 06/14/2023 11:53:21 Negative Negative Final Bordetella parapertussis [id number] DNA [Presence] in Nasopharynx by SUHAIL with non-probe detection 06/14/2023 11:53:21 Negative Negative Final
The primers that detect Rhinovirus may cross react with some Enterorviruses. The validation of bronchial specimens, tracheal aspirates, and throats for this assay was developed and performance characteristics determined by [employer]. The validation of alternate specimen types has not been cleared or approved by the U.S. Food and Drug Administration (FDA). It has been determined that such clearance or approval is not necessary. Performing Location [address] [place] [address]
--- OUTSIDE RECORDS SUMMARY | 2023-08-07 19:28 | External Medical Summary | Summary of Care ---
Author Name Unknown Organization [facility] Address [address] [place] [address] Phone [phone] Care Team Providers Care Cook Specialty Name Role Phone Kinjal Reynoso PA-C Primary Care Provider [phone] Reason for Referral * Medication Prior Authorization - Authorized Specialty Diagnoses / Procedures Referred By Contdulce t Referred To Contact Diagnoses Chronic abdominal pain Chronic female pelvic pain Franck Cota MD [place] [address] Referral ID Status Reason Start Date Expiration Date V isits Requested Visits Authorized [id number] Authorized 999 999 Reason for Visit * Reason Onset Date Comments Medication Refill 06/11/202306/11 Encounter Details Date Type Department Care Team (Late st Contact Info) Description 06/11/2023 Refill [facility] [place] [phone] Kinjal Reynoso PA-C [place] [address] Chronic abdominal pain; Chronic female pelvic [...] OPIOID OVERDOSE - SEEK IMMEDIATE MEDICAL ATTENTION. [email or web address] 2 Each 3 03/31/2023 Active Additional Information Patient not taking.Reported on 05/18/2023 Gabapentin 100 MG Oral Capsule (Neurontin) Take 2 Capsules by mouth in the morning and 2 Capsules at noon and 2 Capsules before bedtime. 180 Capsule 0 03/31/2023 Active Peptamen 1.5 Oral Liquid Administer 1000 mL daily, as directed through J Tube via feeding pump 28575 mL 11 04/12/2023 Active Ondansetron 4 MG [...] Telephone Encounter - Maximilian Bauer LPN - 06/11/2023 4:27 PM EST Script released to pharmacy as it was triggering for prior auth. Pharmacy received and filling. Pt aware. * Telephone Encounter - Rosmery Nguyen OSA [...] MG Oral Tablet (Roxicodon*39 Tab*0 Sig: Take 1 Tablet by mouth [...] questions. * Telephone Encounter - Flor Rahman [facility] - 06/11/2023 12:24 PM ESTPending Prescriptions: Disp [...] Monitoring Program in compliance with the [facility] regulations before prescribing a controlled substance. [...] medication is due for refill: 06/10 Pharmacy: [facility] Is this request for a [...] Centralized Clinical Pharmacy Services (CCPS) (formerly Telepharmacy) [phone] 06/11/2023 12:23 PM * Telephone Encounter - Vicki Abbott CPhT - 06/11/2023 11:25 AM EST Pt states the pharmacy closes at 5 so she needs to seed cone picker today. Did you pend patient's preferred pharmacy and medication before forwarding?yes Pharmacy: [facility] Pending Prescriptions: Disp Refills oxyCODONE HCl [...] available upon request. Patient Phone Numbers mobile [phone] Labs: Lab Results Component Value Date/Time CREAT [...] Description 07/15/2023 8:40 AM EST Office Visit [facility] [address] [place] [phone] Kinjal Reynoso PA-C [address] [place] [phone] 08/20/2023 1:50 PM EST Telemedicine Nutrition & Weight Management, [facility] [address] [place] [address] Kaity Yap RDN [address] [place] [address] 09/20/2023 12:40 PM EDT Office Visit Nutrition & Weight Management, [facility] [address] [place] [address] Cee Santizo PA-C [address] [place] [address] Health Maintenance Due Date Last Done Comments [...] this encounter Medical Devices Implanted Type Area Print Shop Manager Device Identifier Shelf Expiration Date Model / Serial / Lot Port Implant W/8f Poly Cath - [id number] Implanted:Qty : 1 on 05/18/2023 by Juan Jose Connell DO at OR [facility] Right: Chest CR BARD : PERIPHERAL VASCULAR [id number] 11/18/2024 [id number] / / [id number] documented as of this encounter Visit Diagnoses [...] the patient have Health Care Power of Insole Rasper? No Full Code 07/18/2021 7:04 AM 08/03/2021 4:12 PM This order reflects the patients wishes and were consensually agreed upon. Question Answer Comments Discussion of Advance Directives occurred with: Not Discussed Care Teams Cook Specialty Relationship Specialty Start Date End Date Kinjal Reynoso PA-C [address] [place] [phone] PCP - General Physician Meat Scrubber 11/05/22 documented as of this encounter
--- OUTSIDE RECORDS SUMMARY | 2023-08-07 19:28 | External Medical Summary | Summary of Care ---
Author Name Unknown Organization [facility] Address [address] [place] [address] Phone [phone] Care Team Providers Care Clerical Order Filler Name Role Phone Kinjal Reynoso PA-C Primary Care Provider [phone] Reason for Visit * Reason Comments Home Tube Feeding Medical Nutrition Therapy Encounter Details Date Type Department Care Team (Late st Contact Info) Description 06/07/2023 1:50 PM EST Telemedicine Nutrition & Weight Management, [facility] [address] [facility] [place] [address] Kaity Yap RDN [address] [facility] [place] [address] Gastroparesis*; Unintentional weight loss; Jejunostomy tube present (HCC); Overweight (BMI 25.0-29.9) Allergies Active Allergy Reactions Criticality Noted Date [...] as of this encounter (statuses as of 06/07/2023) Medications Medication Sig Dispensed Refills Start Date [...] OPIOID OVERDOSE - SEEK IMMEDIATE MEDICAL ATTENTION. [email or web address] 2 Each 3 03/31/2023 Active Additional Information Patient not taking.Reported on 05/18/2023 Gabapentin 100 MG Oral Capsule (Neurontin) Take 2 Capsules by mouth in the morning and 2 Capsules at noon and 2 Capsules before bedtime. 180 Capsule 0 03/31/2023 Active Peptamen 1.5 Oral Liquid Administer 1000 mL daily, as directed through J Tube via feeding pump 72290 mL 11 04/12/2023 Active Ondansetron 4 MG Oral Tablet Disintegrating (Zofran) Dissolve 1 Tablet on tongue every 8 hours as needed for Nausea. 90 Tablet 0 04/16/2023 Active valACYclovir (Valtrex) 50 mg/mL oral suspension Administer 20 mL into J tube in the morning and 20 mL before bedtime. 120 mL 0 05/06/2023 Active Additional Information Patient not taking.Reported on 05/18/2023 oxyCODONE HCl 15 MG Oral Tablet (Roxicodone)Indicati ons:Chronic abdominal pain,Chronic female pelvic pain Take 1 Tablet by mouth every 6 hours as needed for Pain, Severe or Pain, Moderate. 120 Tablet 0 05/12/2023 Active Lansoprazole 15 MG Oral Capsule Delayed [...] 12 hours.. 30 Patch 0 06/03/2023 Active documented as of this encounter (statuses as of 06/07/2023) Active Problems Problem Noted Date Diagnosed Date [...] as of this encounter (statuses as of 06/07/2023) Resolved Problems Problem Noted Date Diagnosed Date [...] as of this encounter (statuses as of 06/07/2023) Immunizations Name Administration Dates Next Due DTaP [...] as of this encounter Progress Notes * Kaity Yap RDN - 06/07/2023 1:50 PM EST HOME TUBE FEEDING NUTRITION Follow up [facility] Name: Anirudh Marino Jh Location: NUTRITION & WEIGHT MANAGEMENT, [facility] Date: 06/07/2023 Time: 8:42 AM Patient was identified by name and date. Reason for Referral: Tube Feeds NUTRITION ASSESSMENT: Client History: Age/Sex: 22 year old female PMH: She has a history of endometriosis s/p hysterectomy, gastroparesis s/p PEG tube placement 02/23/2023. Patient is not on nutrition support currently. Date: 06/07/2023 06/07/23 -2 m tube feed follow up, tube has been leaking for ~2 weeks, cannot tolerate feeds, skin is very inflamed, surgeon feels scar tissue and adhesions are present, surgeon feels pt needs a new tube and new site -leaking formula is causing pain and skin breakdown around site -Per MyG msg today, tube leaks daily with burning, was seen 06/03 at [facility] for tube replacement -Per 06/05 iron pourer note: She states that she is having terrible abdominal pain, redness and swelling of GT site, the GT is leaking around insertion site and seems to be clogged as it is difficult to infuse feeds or push medication through. Pt is very upset and crying. Pt will go to [facility] now for evaluation. -Has not been able to tolerate much PO intake -Might be readmitted to [facility] for surgery -Half feeds will leak out from tube -Now has a central port, asking about TPN -Waiting to hear back for surgeon office at [facility], could be re-admitted. 04/05/23 -Initial RD visit -DC ~ 1 week ago -Pt sharing she was on osmolite 1.2 during IP stay at [facility] and Dasia Flushes 30 mL x 4 hrs Formula 72 mL/12 hrs Barriers to Learning: None Special Education Needs: None Social Demographics: Social Demographics: Living at home with family Food/Nutrition-Related History Oral Diet Recall: Noodles, can throw up Can sip some fluids reporting a ONS shake is too think, will vomit after drinking Current Tube Feeding Regimen: Peptamin 1.5 administered via feeding pump for J tube Feed Goal: 4 cartons a day (1000 TV) administered over 12 hrs. (68 g protein, 772 mL water, 1500 kcals) Water flushes 30 mL Q4H (180 mL) PO water intake: 673 mL (23 oz) Adult Energy Intake: Less than 75% of estimated energy requirement for greater than 7 days (moderate, acute illness) Home Infusion Company: [facility] Name: Phone number: Fax number: Pertinent Medications (current): Current Medications Current Outpatient Medications Medication Sig Dispense Refill Norethindrone Acetate 5 MG Oral Tablet Take 1 Tablet by mouth in the morning. (Patient not taking: Reported on 05/18/2023) Acetaminophen 325 MG Oral Tablet (Tylenol) 2 Tablets. Naloxone HCl 4 MG/0.1ML Nasal Liquid (Narcan Nasal) ADMINISTER 1 SPRAY INTO 1 NOSTRIL FOR SUSPECTEDOPIOID OVERDOSE - SEEK IMMEDIATE MEDICAL ATTENTION. [email or web address] (Patient not taking: Reported on 05/18/2023) 2 Each 3 Gabapentin 100 MG Oral Capsule (Neurontin) Take 2 Capsules by mouth in the morning and 2 Capsules at noon and 2 Capsules before bedtime. 180 Capsule 0 Peptamen 1.5 Oral Liquid Administer 1000 mL daily, as directed through J Tube via feeding pump 53441 mL 11 Ondansetron 4 MG Oral Tablet Disintegrating (Zofran) Dissolve 1 Tablet on tongue every 8 hours as needed for Nausea. 90 Tablet 0 valACYclovir (Valtrex) 50 mg/mL oral suspension Administer 20 mL into J tube in the morning and 20 mL before bedtime. (Patient not taking: Reported on 05/18/2023) 120 mL 0 oxyCODONE HCl 15 MG Oral Tablet (Roxicodone) Take 1 Tablet by mouth every 6 hours as needed for Pain, Severe or Pain, Moderate. 120 Tablet 0 Lansoprazole 15 MG Oral Capsule Delayed Release 2 Capsules. Regenecare 2 % External Gel (Dfsubktel-Zbniceln-Utvx Vera) Apply topically to affected area. (Patient not taking: Reported on 06/02/2023) Polyethylene Glycol 3350 17 GM/SCOOP Oral Powder (MiraLax) Stir and dissolve 17 g (measuring line inisde of cap) in 4 to 8 ounces of any liquid and adminsiter into Gastric Tube in the morning and repeat same steps before bedtime. 238 g 1 Lidocaine 5 % External Patch (Lidoderm) Place 1 patch to skin over 12 hours every 24 hours Remove patch after 12 hours.. 30 Patch 0 No current facility-administered medications for this visit. Administration method: PO Current Vitamins/Minerals/Supplements: Advised by PCP to take MVI, Ca Citrate with Vit D Nutrition-Focused Physical Findings Deferred, telehealth visit Digestive system: Digestive: Severe gastroparesis Enteral Access: J-tube Placed: J tube placed in Feb 2023 at [facility], tried to change 06/02/[address] Connell in IR at [facility] but unsuccessful Nerves and cognition: Awake, alert Skin: Mechanical skin breakdown around tube site Anthropometrics Measurements Height: 62" reported Weight: 138 lbs ERLIN Wt: 145 lbs 04/05/23 self reported Weight History: -7 lbs since ERLIN Wt Readings from Last 10 Encounters: 06/02/23 62.6 kg (138 lb) 05/29/23 62.6 kg (138 lb) 05/25/23 62.6 kg (138 lb) 05/18/23 62.6 kg (138 lb) 04/15/23 62.8 kg (138 lb 6.4 oz) 04/05/23 65.8 kg (145 lb) 02/02/23 74.9 kg (165 lb 3.2 oz) 12/12/22 68 kg (150 lb) 12/12/22 68 kg (150 lb) 12/11/22 72.6 kg (160 lb) Weight Change: 3-5% Loss over 2 months (-4.8% TBW since ERLIN) Biochemical Data, Medical Tests and Procedures Reviewed Low K+ Low Albumin Elevated BG NUTRITION DIAGNOSIS: Unintentional weight loss related to severe gastroparesis, poor PO intake, nausea/vomiting as evidenced by need for enteral nutrition therapy to provide adequate nutrition and wt loss of 4.7% TBW since Apr 05, 2023 NUTRITION INTERVENTION: Advised pt to sip fluids: 2 oz every 15 minutes Encouraged the use of ONS shakes or gatroade with protein to help with some calorie intake Focus on soft texture foods via PO intake Follow the recommendation of your surgeon if he suggests TPN until J tube can be replaced. Nutrition Justification of Enteral Feeds: Adequate nutrition impossible by diet adjustment and/or oral supplements., Tube feedings required for sufficient nutrients to maintain weight and strength., Patient's condition warrants tube feedings for at least 90 days., Tube feeding will provide greater than 750 calories/day. Nutrition Justification for Enteral Feeding Pump: Jejunostomy tube used for feeding Nutrition Prescription: 22-25 Kcal/kg Current weight/day (62.6 kg) = 8262-4829 Kcal/day 0.8-1.0 grams protein/kg Current weight/day = 50-62 grams protein/day Fluid Needs: 25 mL/kg Current weight/ day = 1565 mL/day Tube Feeding Prescription: Feed Goal: 4 cartons a day (1000 TV) administered over 12 hrs. (68 g protein, 772 mL water, 1500 kcals) Water flushes 30 mL Q4H (180 mL) PO water intake: 673 mL (23 oz) This will provide 1500 kcals, 68 g protein, 1625 mL free fluids Goals: Patient will maintain weight., Patient will meet protein needs., Patient will meet calorie needs., Patient will receive adequate nutrition., Patient will meet hydration needs., and Proper feeding administration by self or other. Expected Compliance: Expect compliance with recommended home enteral nutrition therapy. Recommendations to Ordering Provider: Pt is waiting on recommendations from surgeon team at [facility]. NUTRITION MONITORING AND EVALUATION: Plan for Return Appointment: 2 months Minutes of MNT: Other: 20 min Kaity Yap RDN NUTRITION & WEIGHT MANAGEMENT, [facility] documented in this encounter Plan of Treatment Upcoming Encounters Date Type Department Care Team (Late st Contact Info) Description 07/15/2023 8:40 AM EST Office Visit [facility] [address] [place] [address] [phone] Kinjal Reynoso PA-C [address] [place] [address] 09/20/2023 12:40 PM EDT Office Visit Nutrition & Weight Management, [facility] [address] [place] [address] Cee Santizo PA-C [address] [place] [address] Health Maintenance Due Date Last Done Comments [...] this encounter Medical Devices Implanted Type Area Foamite Mixer Device Identifier Shelf Expiration Date Model / Serial / Lot Port Implant W/8f Poly Cath - [id number] Implanted:Qty : 1 on 05/18/2023 by Juan Jose Connell, at OR [facility] Right: Chest CR BARD : PERIPHERAL VASCULAR [id number] 11/18/2024 [id number] / / [id number] documented as of this encounter Visit Diagnoses Diagnosis Gastroparesis- Primary Unintentional weight loss Loss of weight Jejunostomy tube present (HCC) Status of other artificial opening of gastrointestinal tract Overweight (BMI 25.0-29.9) Overweight documented in this encounter Advance Directives Latest [...] the patient have Health Care Power of Radon Inspector? No Full Code 07/18/2021 7:04 AM 08/03/2021 4:12 PM This order reflects the patients wishes and were consensually agreed upon. Question Answer Comments Discussion of Advance Directives occurred with: Not Discussed Care Teams Clerical Order Filler Relationship Specialty Start Date End Date Kinjal Reynoso PA-C [address] [place] [address] [phone] PCP - General Physician Ux Design Lead 11/05/22 documented as of this encounter
--- OUTSIDE RECORDS SUMMARY | 2023-08-07 19:28 | External Medical Summary ---
Author Name Unknown Address Unknown Organization K01:[facility] - [address] [facility] [address] Laboratory Report Ordering Provider Test Date Status ANGEL VITAL 06/14/2023 13:43:09 Final Observation Date Value Abnormality Reference (Units ) Status Bacteria identified in Specimen by Culture 06/14/2023 13:43:09 [id number]^PSEUDOMON AERUGINOSA Abnormal Final Moderate Pseudomonas aerugin goldy
This bacterial species is known to produce a chromosomal AmpC inducible beta lactamase. Penicillin or cephalosporin use, with the exception of cefepime, may result in resistance. Bacteria identified in Specimen by Culture 06/14/2023 13:43:09 [id number]^ENTEROBACTER CLOACA E COMPLEX Abnormal Final Few Enterobacter cloacae com plex
This bacterial species is known to produce a chromosomal AmpC inducible beta lactamase. Penicillin or cephalosporin use, with the exception of cefepime, may result in resistance. Bacteria identified in Specimen by Culture 06/14/2023 13:43:09 [id number]^KLEBSIELLA PNEUMONIAE Abnormal Final Few Klebsiella pneumoniae Performing Location LABORATORY [facility] - [address] [facility] [address] Ordering Provider Test Date Status ANGEL VITAL 06/14/2023 13:43:09 Final Observation Date Value Abnormality Reference (Units) Status Cefepime susceptibility 06/14/2023 13:43:09 <=1 Susceptible Final Ciprofloxacin 06/14/2023 13:43:09 0.5 Susceptible Final Levofloxacin susceptibility 06/14/2023 13:43:09 0.25 Susceptible Final Piperacillin + Tazobactamsusceptibility 06/14/2023 13:43:09 <=4 Susceptible Final Tobramycinsusceptibility 06/14/2023 13:43:09 <=1 Susceptible Final Performing Location LABORATORY [facility] - [address] [facility] [address] Ordering Provider Test Date Status ANGEL VITAL 06/14/2023 13:43:09 Final Observation Date Value Abnormality Reference (Units ) Status Cefepime susceptibility 06/14/2023 13:43:09 <=1 Susceptible Final cefOXitin [Susceptibility] 06/14/2023 13:43:09 >=64 Resistant Final Ciprofloxacin 06/14/2023 13:43:09 <=0.25 Susceptible Final Gentamicin susceptibility 06/14/2023 13:43:09 <=1 Susceptible Final Meropenem [Susceptibility] 06/14/2023 13:43:09 Susceptible Final This is an appended report. These results have been appended to a previously preliminary verified report. Piperacillin + Tazobactamsusceptibility 06/14/2023 13:43:09 64 Resistant Final TMP-SMZ susceptibility 06/14/2023 13:43:09 <=20 Suscept ible Final Performing Location LABORATORY [facility] - [address] [place] [address] Ordering Provider Test Date Status TYRONE VITALTOYA 06/14/2023 13:43:09 Final Observation Date Value Abnormality Reference (Units) Status Ampicillin + Sulbactam 06/14/2023 13:43:09 <=2 Susceptible Final Cefepime susceptibility 06/14/2023 13:43:09 <=1 Susceptible Final Ceftriaxone suceptibility 06/14/2023 13:43:09 <=1 Susceptible Final Ciprofloxacin 06/14/2023 13:43:09 <=0.25 Susceptible Final Gentamicin susceptibility 06/14/2023 13:43:09 <=1 Susceptible Final Piperacillin + Tazobactamsusceptibility 06/14/2023 13:43:09 <=4 Susceptible Final TMP-SMZ susceptibility 06/14/2023 13:43:09 <=20 Susceptible Final Test: Culture, Wound, Superf icial, Aerobic
Specimen Source: Abdomen
Specimen Type: Superficial Wound
Specimen Date: 06/14/2023 1:43 PM
Result Date: 06/18/2023 1:14 PM
Result Status: Final result
Abnormal: Yes
Resulting Lab: [facility]
[address]
[place] [address]

CULTURE

Moderate Pseudomonas aeruginosa (Abnormal)

This bacterial species is known to produce a chromosomal AmpC inducible
beta lactamase. Penicillin or cephalosporin use, with the exception of
cefepime, may result in resistance.

Few Enterobacter cloacae complex (Abnormal)

This bacterial species is known to produce a chromosomal AmpC inducible
beta lactamase. Penicillin or cephalosporin use, with the exception of
cefepime, may result in resistance.

Few Klebsiella pneumoniae (Abnormal)

SUSCEPTIBILITY

Pseudomonas aeruginosa Enterobacter cloacae
complex
METHOD MICROBROTH DILUTIONS MICROBROTH DILUTIONS

AMPICILLIN/SULBACTAM
CEFEPIME <=1 Susceptible <=1 Susceptible
CEFOXITIN >=64 Resistant
CEFTRIAXONE
CIPROFLOXACIN 0.5 Susceptible <=0.25 Susceptible
GENTAMICIN <=1 Susceptible
LEVOFLOXACIN 0.25 Susceptible
MEROPENEM -- Susceptible [1]
PIPERACILLIN TAZOBACTAM <=4 Susceptible 64 Resistant
TOBRAMYCIN <=1 Susceptible
TRIMETH/SULFAMETHOXAZOLE <=20 Susceptible

Klebsiella pneumoniae
METHOD MICROBROTH DILUTIONS

AMPICILLIN/SULBACTAM <=2 Susceptible
CEFEPIME <=1 Susceptible
CEFOXITIN
CEFTRIAXONE <=1 Susceptible
CIPROFLOXACIN <=0.25 Susceptible
GENTAMICIN <=1 Susceptible
LEVOFLOXACIN
MEROPENEM
PIPERACILLIN TAZOBACTAM <=4 Susceptible
TOBRAMYCIN
TRIMETH/SULFAMETHOXAZOLE <=20 Susceptible

[1] This is an appended report. These results have been appended to a
previously preliminary verified report.

null Performing Location LABORATORY [facility] - [address] [facility] [address]
--- OUTSIDE RECORDS SUMMARY | 2023-08-07 19:28 | External Medical Summary | Summary of Care ---
Author Name Unknown Organization [facility] Address [address] [place] [address] Phone [phone] Care Team Providers Care Field Evidence Technician Name Role Phone Kinjal Reynoso PA-C Primary Care Provider [phone] Reason for Referral * Medication Prior Authorization - Pending Review Specialty Diagnoses / Procedures Referred By Contdulce t Referred To Contact Diagnoses Chronic abdominal pain Chronic female pelvic pain Franck Cota MD [place] [id number] Referral ID Status Reason Start Date Expiration Date V isits Requested Visits Authorized [id number] Pending Review 999 999 Reason for Visit * Reason Onset Date Comments Medication Refill 06/11/202306/11 Encounter Details Date Type Department Care Team (Late st Contact Info) Description 06/11/2023 Refill [facility] [place] [phone] Kinjal Reynoso PA-C [place] [phone] Chronic abdominal pain; Chronic female pelvic pain [...] OPIOID OVERDOSE - SEEK IMMEDIATE MEDICAL ATTENTION. [email or web address] 2 Each 3 03/31/2023 Active Additional Information Patient not taking.Reported on 05/18/2023 Gabapentin 100 MG Oral Capsule (Neurontin) Take 2 Capsules by mouth in the morning and 2 Capsules at noon and 2 Capsules before bedtime. 180 Capsule 0 03/31/2023 Active Peptamen 1.5 Oral Liquid Administer 1000 mL daily, as directed through J Tube via feeding pump 48583 mL 11 04/12/2023 Active Ondansetron 4 MG [...] Moderate. * Telephone Encounter - Flor Rahman [facility] - 06/11/2023 12:23 PM EST I have reviewed the patients controlled substance dispensing history in the Prescription Drug Monitoring Program in compliance with the [facility] regulations before prescribing a controlled [...] medication is due for refill: 06/10 Pharmacy: [facility] Is this request for a [...] Centralized Clinical Pharmacy Services (CCPS) (formerly Telepharmacy) [phone] 06/11/2023 12:23 PM * Telephone Encounter - Vicki Abbott [facility] - 06/11/2023 11:25 AM EST Pt states the pharmacy closes at 5 so she needs to apple picker today. Did you pend patient's preferred pharmacy and medication before forwarding?yes Pharmacy: [facility] Pending Prescriptions: Disp Refills oxyCODONE [...] available upon request. Patient Phone Numbers mobile [phone] Labs: Lab Results Component Value Date/Time CREAT [...] Visit Family Practice, [place] [address] [place] [phone] Kinjal Reynoso PA-C [address] [place] [phone] 08/20/2023 1:50 PM EST Telemedicine Nutrition & Weight Management, [facility] [address] [place] [address] Kaity Yap RDN [address] [place] [phone] 09/20/2023 12:40 PM EDT Office Visit Nutrition & Weight Management, [facility] [address] [place] [address] Cee Santizo PA-C [address] [place] [address] Health Maintenance Due Date Last Done Comments [...] this encounter Medical Devices Implanted Type Area Die Finisher Device Identifier Shelf Expiration Date Model / Serial / Lot Port Implant W/8f Poly Cath - [id number] Implanted:Qty : 1 on 05/18/2023 by Juan Jose Connell, DO at OR [facility] Right: Chest CR BARD : PERIPHERAL VASCULAR [id number] 11/18/2024 [id number] / / [id number] documented as of this encounter Visit Diagnoses [...] the patient have Health Care Power of Barkeeper? No Full Code 07/18/2021 7:04 AM 08/03/2021 4:12 PM This order reflects the patients wishes and were consensually agreed upon. Question Answer Comments Discussion of Advance Directives occurred with: Not Discussed Care Teams Field Evidence Technician Relationship Specialty Start Date End Date Kinjal Reynoso PA-C [address] [place] [phone] PCP - General Physician Gauge Machine Operator 11/05/22 documented as of this encounter
--- OUTSIDE RECORDS SUMMARY | 2023-08-07 19:28 | External Medical Summary ---
Author Name Unknown Address Unknown Organization K1F:LABORATORY [facility] - [address] [place] [address] Laboratory Report Ordering Provider Test Date Status ALEJANDRA NUNEZITZ 06/14/2023 13:18:48 Final Less than 0.5 ng/mL: Low ris k for progression to sepsis. Review patients condition for localized infections.

0.5 to 2.0 ng/mL: Intermediate risk for progresion to sepsis. Review underlying conditions. Recommend repeat PCT after 6 hours has elapsed.

Greater than 2.0 ng/mL: high risk for progression to sepsis unless other causes are known. Observation Date Value Abnormality Reference (Units ) Status Procalcitonin [Mass/volume] in Serum or Plasma by Immunoassay 06/14/2023 13:18:48 1.05 Above high normal <0.10 (ng/mL) Final Performing Location LABORATORY [facility] - [address] [place] [address]
--- OUTSIDE RECORDS SUMMARY | 2023-08-07 19:28 | External Medical Summary ---
Author Name Unknown Address Unknown Organization K1F:[facility] - [address] [facility] [place] [address] Laboratory Report Ordering Provider Test Date Status EBER NUNEZ 06/14/2023 13:18:48 Final Observation Date Value Abnormality Reference (Units ) Status SYNC LEUKOCYTES IN BLOOD BY AUTOMATED COUNT 06/14/2023 13:18:48 4.31 4.00-10.80 (K/uL) Final Segs 06/14/2023 13:18:48 50.8 40.0-75.0 (%) Final Lymphs % 06/14/2023 13:18:48 36.2 18.0-42.0 (%) Final Monos 06/14/2023 13:18:48 11.1 Above high normal 1.0-11.0 (%) Final Eosinophils 06/14/2023 13:18:48 1.2 0.0-6.0 (%) Final Basos 06/14/2023 13:18:48 0.2 0.0-2.0 (%) Final Immature Granulocyte, Percent 06/14/2023 13:18:48 0.5 0.0-2.0 (%) Final Absolute Segs 06/14/2023 13:18:48 2.19 1.80-7.70 (K/uL) Final Lymphs, absolute 06/14/2023 13:18:48 1.56 1.00-4.80 (K/ul) Final Monos, Abs 06/14/2023 13:18:48 0.48 0.00-1.10 (K/uL) Final Eos, Abs 06/14/2023 13:18:48 0.05 0.00-0.70 (K/uL) Final Basos, Abs 06/14/2023 13:18:48 0.01 0.00-0.20 (K/uL) Final Immature Granulocytes, Number 06/14/2023 13:18:48 0.02 0.00-0.20 (K/uL) Final Performing Location LABORATORY [facility] - [facility] [address] [place] [address]
--- OUTSIDE RECORDS SUMMARY | 2023-08-07 19:28 | External Medical Summary | Summary of Care ---
Author Name Unknown Organization [facility] Address [address] [place] [address] Phone [phone] Care Team Providers Care Manager Paid Name Role Phone Kinjal Reynoso PA-C Primary Care Provider [phone] Reason for Visit * Reason Comments Abdominal Pain * Auth/Cert Specialty Diagnoses / Procedures Referred By Carmen t Referred To Contact Referral ID Status Reason Start Date Expiration Date Visits Re quested Visits Authorized [id number] Encounter Details Date Type Department Care Team (Late st Contact Info) Description 06/16/2023 6:10 PM EST - 06/16/2023 7:51 PM EST Emergency [facility] ([facility]) [address], [place] [id number] Rolo Cruz MD [address], [place] [id number] Abdominal wall cellulitis (Primary Dx); Disruption or dehiscence of closure of skin, initial encounter Discharge Disposition: Home - Self Care Allergies [...] as of this encounter (statuses as of 06/17/2023) Medications Medication Sig Dispensed Refills Start Date [...] OPIOID OVERDOSE - SEEK IMMEDIATE MEDICAL ATTENTION. [email or web address] 2 Each 3 03/31/2023 Active Additional Information Patient not taking.Reported on 05/18/2023 Peptamen 1.5 Oral Liquid Administer 1000 mL daily, as directed through J Tube via feeding pump 92631 mL 11 04/12/2023 Active Ondansetron 4 MG [...] Pain, Moderate. 39 Tablet 0 06/11/2023 Active Gabapentin 300 MG Oral Capsule (Neurontin) [...] in the morning and 1 Tablet before bedtime. Do all this for 10 days. 20 Tablet 0 06/16/2023 4 Active Cefdinir 300 MG Oral Capsule (Omnicef) Take 1 Capsule by mouth in the morning and 1 Capsule before bedtime - do all this for 5 days. 10 Capsule 0 06/14/2023 3 Discontinu ed(Medicat ion/Dose Changed) documented as of this encounter (statuses as of 06/17/2023) Active Problems Problem Noted Date Diagnosed Date [...] as of this encounter (statuses as of 06/17/2023) Resolved Problems Problem Noted Date Diagnosed Date [...] as of this encounter (statuses as of 06/17/2023) Immunizations Name Administration Dates Next Due DTaP [...] Sign Reading Time Taken Comments Blood Pressure 139/79 06/16/2023 6:59 PM EST Pulse 83 06/16/2023 6:59 PM EST Temperature 36 C (96.8 F) 06/16/2023 3:49 PM EST Respiratory Rate 18 06/16/2023 6:59 PM EST Oxygen Saturation 98% 06/16/2023 3:49 PM EST Inhaled Oxygen Concentration - - Weight - - Height - - Body Mass Index - - documented in this encounter Functional Status Functional [...] No 02/02/2023 documented as of this encounter Discharge Instructions * Discharge Instructions* Rolo Cruz MD - 06/16/2023 7:39 PM EST Stop the cefdinir antibiotic, the culture is growing bacteria that cefdinir does not treat. The ER doctor started ciprofloxacin which does treat this bacteria (Pseudomonas aeruginosa). Call your surgeon's office tomorrow to notify them that you have wound packing that was placed tonight and have anunusual bacteria that you are now taking the correct antibiotic and hopefully they can see you in the next couple of days at the office to help you healed the wound quickly. To local ER if any warning signs or problems documented in this encounter ED Notes * Zaida Bolaños RN - 06/16/2023 3:48 PM EST Patient presents to the ED for an abdominal incision that has opened. Patient had a J tube placed on 06/08 and states that the incision opened today. Per patient is also having a red/brown drainage from the wound. Patient last had prescribed oxycodone medication at 1430 today. documented in this encounter Miscellaneous Notes * ED Gas Appliance Servicer Note - Destiny Galaviz RN - 06/16/2023 7:50 PM EST Discharge given and verbalized understanding.left ed with steady gait. 5/10 pain. * Pt Handout (on AVS) - Rolo Cruz MD - 06/16/2023 7:40 PM EST [id number] Wound Check After Surgery: Infection Your surgical wound has become infected. Infection after surgery usually involves just the top layers of skin. Sometimes the infection is deeper in the wound and may involve a collection of fluid or pus. Treatment will depend on the type of infection you have. You may need to have a procedure to open and drain the wound if pus or infected fluid is present. You may get antibiotics for the infection. Take them as directed until gone. Home care Different types of surgery require different types of care and dressing changes. It's important to follow all instructions and advice from your surgeon, as well as other members of your healthcare team. If possible, it can be helpful to have a family member or close friend listen with you to the discharge instructions. Wound care Keep the wound clean, as directed by your healthcare provider. Change the dressing as directed. Change the dressing sooner if it becomes wet or stained with blood or fluid from the wound. Bathe with a sponge (no shower or tub baths) for the first few days, or until there is no more drainage from the wound. Unless your surgeon gave you different instructions, you can then shower. Don't soak the area in water (no baths or swimming) until the tape, sutures, or vianey are removed and any wound opening has dried out and healed. If you smoke, stop smoking. Ask your healthcare provider about ways to quit. Changing the dressing Scrub your hands with plain soap and clean, running water for at least 20 seconds before and after changing the dressings. Or use an alcohol-based hand hide cleaner. Carefully remove the dressing and tape. Don?t just yank it off. If it sticks to the wound, you may need to wet it a little to remove it, unless your healthcare provider told you not to wet it. Gently clean the wound with clean water (or saline) using gauze or a clean washcloth. Don't rub it or pick at it. Don't use soap, alcohol, hydrogen peroxide, or any other cleanser on the wound. If you were told to dry the wound before putting on a new dressing, gently pat it dry. Don't rub. Scrub your hands again for at least 20 seconds before putting on a new, clean dressing. Put the old dressing in a sealed plastic bag and throw it out. Don't reuse it! Scrub your hands again for 20 seconds when you are done. Types of dressings Your healthcare team will tell you what type of dressing to put on your wound. Follow your healthcare team?s instructions carefully, and contact them if you have any questions. Two common types of dressings are described below. You may have one of these or another type. Dry dressing. Use dry gauze or pad. Wet-to-dry dressing. Wet the gauze and squeeze out the extra water (or saline) before putting iton. Then cover this with a dry pad. Medicines If you were given antibiotics, take them until they are used up or your healthcare provider tells you to stop. It's important to finish the antibiotics even though you feel better, to make sure the infection has cleared. You can take acetaminophen or ibuprofen for pain, unless you were given a different pain medicine to use. Talk with your provider before using these medicines if you have chronic liver or kidney disease. Also talk with your provider if you have ever had a stomach ulcer or digestive bleeding, or are taking blood-thinner medicines. Follow-up care Follow up with your healthcare provider for your next wound check or to remove your stitches, vianey, or tape. If a wound culture was done, you'll be told if the results will affect your treatment. You can call as directed for the results. If imaging tests, such as X-rays, an ultrasound, or CT scan were done, they'll be looked at by aspecialist. You'll be told of the results, especially if they affect treatment. Call 911 Call 911 if any of these occur: Trouble breathing or swallowing Wheezing Hoarse voice or trouble speaking Extreme confusion Extreme drowsiness or trouble awakening Fainting or loss of consciousness Rapid heart rate or very slow heart rate Vomiting blood, or large amounts of blood in stool Discomfort in the center of the chest that feels like pressure, squeezing, a sense of fullness, or pain Discomfort or pain in other upper body areas, such as the back, one or both arms, neck, jaw, or stomach Stroke symptoms (spot a stroke ?AST): o F: Face drooping. One side of the face is numb or droops. o A: Arm weakness. One arm feels weak or numb. o S: Speech difficulty: Speech is slurred, or you can't speak. o T: Time to call 911. Even if symptoms go away, call 911. When to get medical advice Call your healthcare provider right away if any of these occur: Increasing pain at the site of surgery Pain not controlled by medicine prescribed Fever of 100.4F (38C) or higher, or as directed by your provider Increasing redness around the wound Fluid, pus, or blood that continues to drain from the wound after 5 days of treatment Vomiting, constipation, or diarrhea Symptoms get worse or new symptoms appear Last Reviewed Date: 06/21/202119991632-9812 [employer]. All rights reserved. This information is not intended as a substitute for professional medical care. Always follow your healthcare professional's instructions. * Pt Handout (on AVS) - Rolo Cruz MD - 06/16/2023 7:39 PM EST [id number] Discharge Instructions for Cellulitis You have been diagnosed with cellulitis. This is an infection in the deepest layers of the skin. The infection may even spread to the muscle in some cases. Cellulitis is caused by bacteria. The bacteria can enter the body through broken skin. This can happen with a cut, scratch, animal bite, or an insect bite that has been scratched. You may have been treated in the hospital with antibiotics and fluids. You will likely be given a prescription for antibiotics to take at home. This sheet will help you take care of yourself at home. Home care When you are home: Take the prescribed antibiotic medicine you are given as directed until it is gone. Take it evenif you feel better. It treats the infection and stops it from returning. Not taking all the medicine can make future infections hard to treat. Keep the infected area clean. Follow all wound care instructions from your healthcare provider. When possible, raise the infected area above the level of your heart. This helps keep swelling down. Fredy the boundary of the infected area so you can tell if it is growing. Talk with your healthcare provider if you are in pain. Ask what kind of mftm-ppy-jnrktsy medicine you can take for pain. Apply clean bandages as advised. Dispose of dirty bandages in a plastic bag that is tied at the top. Wash your hands often to prevent spreading the infection. Always wash your hands before and after cleaning the area. If anyone helps you with your care, have them do the same. Take your temperature once a day for a week. In the future, wash your hands before and after you touch cuts, scratches, or bandages. This will help prevent infection. When to call your healthcare provider Call your healthcare provider right away if you have any of the following: The infection does not get better within 1 to 2 days after treatment starts Trouble or pain when moving the joints above or below the infected area Discharge or pus draining from the area Fever of 100.4F (38C) or higher, or as directed by your healthcare provider Pain that gets worse in or around the infected Redness that gets worse in or around the infected area, particularly if the area of redness expands to a wider area Shaking chills Swelling of the infected area Vomiting Last Reviewed Date: 08/19/202119999918-5135 [employer]. All rights reserved. This information is not intended as a substitute for professional medical care. Always follow your healthcare professional's instructions. * ED Gas Appliance Servicer Note - Destiny Galaviz RN - 06/16/2023 7:13 PM EST Pt came to ED due to abd pain. States 8/10 pain. States was in hospital for abscess recently and put on antibiotics. Abscess on abdomin. Pt states taking abx for 2 days. Pt states abscess was approximated and now it is not. Noted "hole" in abdomin. Pt states had drainage from. Noted serosanguinous drainage on bandage. Denies fevr, chills, FRAZIER, dizziness, CP, SOB, /GI abnormalities. +PMS in all extremities. Noted j tube. Pt laying in bed with call lopez in reach. Denies needs. Pt had noted port on right chest 1923: medicated and tolerated well. Provider packed wound. Call lopez in reach. Denies needs. documented in this encounter Plan of Treatment Upcoming Encounters Date Type Department Care Team (Late st Contact Info) Description 06/17/2023 2:20 PM EST Office Visit [facility] [address] [phone] Kinjal Reynoso PA-C [address] [phone] 07/15/2023 8:40 AM EST [facility] [address] [phone] Kinjal Reynoso PA-C [address] [phone] 08/20/2023 1:50 PM EST Telemedicine Nutrition & Weight Management, [facility] [address] [phone] Kaity Yap RDN [address] [phone] 09/20/2023 12:40 PM EDT Office Visit Nutrition & Weight Management, [facility] [address] [phone] Cee Santizo PA-C [address] [place] [phone] Scheduled Orders Name Type Priority Associated Diagnoses Orde r Schedule CBC WITH WBC DIFFERENTIAL Lab STAT One Time for 1 Occurrences starting 06/16/2023 until 06/16/2023 COMPREHENSIVE METABOLIC PANEL Lab STAT One Time for 1 Occurrences starting 06/16/2023 until 06/16/2023 LIPASE Lab STAT One Time for 1 Occurrences starting 06/16/2023 until 06/16/2023 EXTRA LIGHT BLUE TOP Lab STAT One Time for 1 Occurrences starting 06/16/2023 until 06/16/2023 URINALYSIS, REFLEX TO MICROSCOPIC Lab STAT One Time for 1 Occurrences starting 06/16/2023 until 06/16/2023 CBC Lab STAT Once for 1 Occ urrences starting 06/16/2023 until 06/16/2023 DIFFERENTIAL, AUTOMATED Lab STAT O nce for 1 Occurrences starting 06/16/2023 until 06/16/2023 Health Maintenance Due Date Last Done Comments [...] this encounter Medical Devices Implanted Type Area Residential Property Tax Appraiser Device Identifier Shelf Expiration Date Model / Serial / Lot Port Implant W/8f Poly Cath - [id number] Implanted:Qty : 1 on 05/18/2023 by Juan Jose Connell DO at OR [facility] Right: Chest CR BARD : PERIPHERAL VASCULAR [id number] 11/18/2024 [id number] / / [id number] documented as of this encounter Visit Diagnoses Diagnosis Abdominal wall cellulitis- Primary Cellulitis and abscess of trunk Disruption or dehiscence of closure of skin, initial encounter documented in this encounter Administered Medications Inactive Administered Medications - up to 3 most recent administrations Medication Order MAR Action Action Date Dose Rate Site ciprofloxacin (Cipro) tab 500 mg 500 mg, Oral, ONCE, On Wed06/16/23 at 1999, For 1 dose, Hold antacids and iron for 3-4 hours before and after administration. Given 06/16/2023 7:20 PM EST 500 mg documented in this encounter Active and Recently Administered Medications Times are shown in EST. Scheduled Medication Order 06/14/2023 06/15/2023 06/16/2023 ciprofloxacin (Cipro) tab 500 mg (COMPLETED) 500 mg, Oral, ONCE, On Wed06/16/23 at 1999, For 1 dose, Hold antacids and iron for 3-4 hours before and after administration. 1920 (Given - Provid er: Destiny Galaviz RN) documented in this encounter Advance Directives [...] the patient have Health Care Power of Farm Products Shipper? No Full Code 07/18/2021 7:04 AM 08/03/2021 4:12 PM This order reflects the patients wishes and were consensually agreed upon. Question Answer Comments Discussion of Advance Directives occurred with: Not Discussed Care Teams Manager Paid Relationship Specialty Start Date End Date Kinjal Reynoso PA-C [address] [phone] PCP - General Physician Bar Manager 11/05/22 documented as of this encounter
--- OUTSIDE RECORDS SUMMARY | 2023-08-07 19:28 | External Medical Summary ---
Author Name Unknown Address Unknown Organization K1F:[facility] - [address] [place] [address] Laboratory Report Ordering Provider Test Date Status EBER NUNEZ 06/14/2023 14:13:43 Final Observation Date Value Abnormality Reference (Units ) Status Color of Urine by Auto 06/14/2023 14:13:43 Yellow Light Yellow, Yellow, Dark Yellow Final Clarity, Urine 06/14/2023 14:13:43 Clear Clear Final Glucose [Mass/volume] in Urine by Automated test strip 06/14/2023 14:13:43 Negative Negative (mg/dL) Final Bilirubin.total [Presence] in Urine by Automated test strip 06/14/2023 14:13:43 Negative Negative Final Ketones [Mass/volume] in Urine by Automated test strip 06/14/2023 14:13:43 15 Abnormal Negative (mg/dL) Final Specific gravity, Urine 06/14/2023 14:13:43 1.017 1.003-1.030 Final Hemoglobin [Presence] in Urine by Automated test strip 06/14/2023 14:13:43 Negative Negative Final pH, Urine 06/14/2023 14:13:43 7.5 5.0-7.5 (Units) Final Protein [Mass/volume] in Urine by Automated test strip 06/14/2023 14:13:43 Negative Negative (mg/dL) Final Urobilinogen [Mass/volume] in Urine by Automated test strip 06/14/2023 14:13:43 0.2 0.2, 1.0 (mg/dL) Final Nitrite [Presence] in Urine by Automated test strip 06/14/2023 14:13:43 Negative Negative Final Leukocyte esterase [Presence] in Urine by Automated test strip 06/14/2023 14:13:43 Negative Negative Final Annotation Comment 06/14/2023 14:13:43 Final Screen negative - Microscopi c not performed. Performing Location [facility] - [address] [place] [address]
--- OUTSIDE RECORDS SUMMARY | 2023-08-07 19:28 | External Medical Summary | Summary of Care ---
Author Name Unknown Organization [facility] Address [address] [place] [address] Phone [phone] Care Team Providers Care Score Caller Name Role Phone Kinjal Reynoso PA-C Primary Care Provider [phone] Reason for Visit * Reason Comments Wound Recheck Abdominal Pain * Auth/Cert Specialty Diagnoses / Procedures Referred By Carmen t Referred To Contact Referral ID Status Reason Start Date Expiration Date Visits Re quested Visits Authorized [id number] Encounter Details Date Type Department Care Team ([facility] Contact Info) Description 06/14/2023 11:49 AM EST - 06/14/2023 5:15 PM EST Emergency [facility] Emergency Department ([facility]) [address], [place] [id number] Rolo Cruz MD [address] [place] [address] Abdominal wall cellulitis (Primary Dx); Other chronic pain; Nausea without vomiting Discharge Disposition: Home - Self Care Allergies [...] OPIOID OVERDOSE - SEEK IMMEDIATE MEDICAL ATTENTION. [email or web address] Each 3 03/31/2023 Active Additional Information Patient not taking.Reported on 05/18/2023 Peptamen 1.5 Oral Liquid Administer 1000 mL daily, as directed through J Tube via feeding pump 81114 mL 11 04/12/2023 Active Ondansetron 4 MG [...] for 5 days. 10 Capsule 0 06/14/2023 06/19/20 23 Active Gabapentin 300 MG Oral Capsule (Neurontin) Take 1 Capsule by mouth in the morning and 1 Capsule at noon and 1 Capsule before bedtime. 90 Capsule 0 06/14/2023 07/14/19 24 Active Promethazine HCl 25 MG Oral Tablet (Phenergan) Take 1 Tablet by mouth every 6 hours as needed for Nausea for up to 90 doses. Crush and mix with water then give through jejunostomy tube, then flush with at least 20 ml of water, use one-half tablet if it feels too strong. 90 Tablet 0 06/14/2023 Active Gabapentin 100 MG Oral Capsule (Neurontin) Take 2 Capsules by mouth in the morning and 2 Capsules at noon and 2 Capsules before bedtime. 180 Capsule 0 03/31/2023 06/14/20 23 Discontinu ed(Medicat ion/Dose Changed) documented as of [...] Sign Reading Time Taken Comments Blood Pressure 128/93 06/14/2023 5:12 PM EST Pulse 96 06/14/2023 5:12 PM EST Temperature 36.9 C (98.5 F) 06/14/2023 5:14 PM ES T Respiratory Rate 18 06/14/2023 5:12 PM EST Oxygen Saturation 97% 06/14/2023 12:00 PM EST Inhaled Oxygen Concentration - - [...] * Discharge Instructions* Rolo Cruz MD - 06/14/2023 5:10 PM EST Call your surgeon's office in AM and tell them that the ER started some antibiotics for the rednessat your incision, and also tell surgeon that there is a culture of the liquid in this hospital checking for what bacteria you are infected with. That culture will make sure your getting the right antibiotic for urine infection. Back if any warning signs or problems, especially if fever or if the red area goes beyond the ink line the doctor drawn your skin. Warm compresses 4 times per day should help the antibiotics work stronger Take no more than 4000 mg of acetaminophen from all sources combined in any 24 hour period. documented in this encounter ED Notes * Caron Yip RN - 06/14/2023 11:49 AM EST Pt here with c/o abd pain since abd surgery on 06/08, and purulent incisional drainage since yesterday. Has been having intermittent fevers, max 101.3F, with last Tylenol last night. Last BM 06/06. Also when she urinates and fully empties bladder, it "hurts up inside, not at the exit". Surgery was to replace G-tube and it needed to be moved to a different site. Reports when she had G-tube first placed in February, had sepsis. Not on abx. documented in this encounter Miscellaneous Notes * Pt Handout (on AVS) - Rolo Cruz MD - 06/14/2023 5:08 PM EST [id number] Cellulitis Cellulitis is an infection of the deep layers of skin. A break in the skin, such as a cut or scratch, can let bacteria under the skin. Cellulitis causes the affected skin to become red, swollen, warm, and sore. The reddened areas havea border you can see. An open sore may leak fluid (pus). You may have a fever, chills, and pain. Cellulitis is treated with antibiotics taken for 7 to 10 days. An open sore may be cleaned and covered with cool wet gauze. Symptoms should get better 1 to 2 days after treatment is started. Make sure to take all the antibiotics for the full number of days until they are gone. Keep taking the medicine even if your symptoms go away. If not treated, cellulitis can get into the bloodstream and lymph nodes. The infection can then spread throughout the body. This causes serious illness. Home care Follow these tips: Limit the use of the part of your body with cellulitis. If the infection is on your leg, keep your leg raised while sitting. This helps reduce swelling. Take all of the antibiotic medicine exactly as directed until it is gone. Don't miss any doses, especially during the first 7 days. Finish taking all of the medicine even when your symptoms get better. Keep the affected area clean and dry. Wash your hands with soap and clean, running water before and after touching your skin. Anyone else who touches your skin should also wash his or her hands. Don't share towels. Follow-up care Follow up with your healthcare provider, or as advised. If your infection doesn't go away after finishing the first antibiotic, your healthcare provider will prescribe a different one. When to seek medical advice Call your healthcare provider right away if any of these occur: Red areas that spread Swelling or pain that gets worse Fluid leaking from the skin (pus) Fever higher of 100.4 F (38.0 C) or higher after 2 days on antibiotics Last Reviewed Date: 06/21/202119993277-8732 [employer]. All rights reserved. This information is not intended as a substitute for professional medical care. Always follow your healthcare professional's instructions. * ED Driver Merchandiser Note - Krishna Roque RN - 06/14/2023 2:34 PM EST Pending UA result documented in this encounter Plan of Treatment Upcoming Encounters Date Type Department Care Team (Late st Contact Info) Description 07/15/2023 8:40 AM EST Office Visit [facility] [address] [phone] Kinjal Reynoso PA-C [address] [place] [address] 08/20/2023 1:50 PM EST Telemedicine Nutrition & Weight Management, [facility] [address] [facility] [place] [address] Kaity Yap RDN [address] [facility] [place] [address] 09/20/2023 12:40 PM EDT Office Visit Nutrition & Weight Management, [facility] [address] [place] [address] Cee Santizo PA-C [address] [place] [address] Pending Results Name Type Priority Associated Diagnoses Date /Time CULTURE, WOUND, SUPERFICIAL, AEROBIC Lab STAT 06/14/2023 1:43 PM EST Scheduled Orders Name Type Priority Associated Diagnoses Orde r Schedule CULTURE, WOUND, SUPERFICIAL, AEROBIC Lab STAT Perform Now for 1 Occurrences starting 06/14/2023 until 06/14/2023 Health Maintenance Due Date Last Done Comments [...] this encounter Medical Devices Implanted Type Area Hse Coordinator Device Identifier Shelf Expiration Date Model / Serial / Lot Port Implant W/8f Poly Cath - [id number] Implanted:Qty : 1 on 05/18/2023 by Juan Jose Connell DO at OR [facility] Right: Chest CR BARD : PERIPHERAL VASCULAR [id number] 11/18/2024 [id number] / / [id number] documented as of this encounter Procedures Procedure Name Priority Date/Time Associated Diagnosis Comments XR CHEST 1 VIEW STAT 06/14/2023 4:21 PM EST URINALYSIS, REFLEX TO MICROSCOPIC STAT 06/14/2023 2:[address] ABD/PELVIS W IV CONTRAST - WO ORAL CONTRAST STAT 06/14/2023 2:11 PM EST XR ABDOMEN 1 VIEW STAT 06/14/2023 1:4 4 PM EST CRP (INFLAMMATORY MARKER) STAT 06/14/2023 1:19 PM EST LACTATE WITH REFLEX IF ABNORMAL Routine 06/14/2023 1:18 PM EST EXTRA LIGHT BLUE TOP STAT 06/14/2023 1:18 PM EST DIFFERENTIAL, AUTOMATED STAT 06/14/2023 1:18 PM EST PROCALCITONIN Routine 06/14/2023 1:18 PM EST COMPREHENSIVE METABOLIC PANEL STAT 06/14/2023 1:18 PM EST CBC STAT 06/14/2023 1:18 PM EST LIPASE STAT 06/14/2023 1:18 PM EST CBC STAT 06/14/2023 1:18 PM EST RESPIRATORY PATHOGEN PANEL, PCR STAT 06/14/2023 11:53 AM EST documented in this encounter Results * XR CHEST 1 VIEW (06/14/2023 4:21 PM EST) Anatomical Region Laterality Modality Chest Digital Radiogra phy 06/14/2023 4:15 PM EST Impressions 06/14/2023 4:24 PM EST IMPRESSION: No acute lung disease. THIS DOCUMENT HAS BEEN ELECTRONICALLY SIGNED BY TED HUTCHISON MD Narrative 06/14/2023 4:24 PM EST PROCEDURE INFORMATION: Exam: XR Chest Exam date and time: 06/14/2023 4:15 PM Age: 22 years old Clinical indication: Other: Dyspnea, history of pleural effusions TECHNIQUE: Imaging protocol: Radiologic exam of the chest. Views: 1 view. COMPARISON: CT ABD/PELVIS W IV CONTRAST - WO ORAL CONTRAST 06/14/2023 1:59 PM FINDINGS: Lungs: No acute lung disease. No consolidation. Pleural spaces: Unremarkable. No pleural effusion. No pneumothorax. Heart/Mediastinum: No cardiomegaly. Bones/joints: Unremarkable. Right Iupsgs-X-Xcjx catheter noted. Procedure Note Ted Hutchison MD - 06/14/2023 PROCEDURE INFORMATION: Exam: XR Chest Exam date and time: 06/14/2023 4:15 PM Age: 22 years old Clinical indication: Other: Dyspnea, history of pleural effusions TECHNIQUE: Imaging protocol: Radiologic exam of the chest. Views: 1 view. COMPARISON: CT ABD/PELVIS W IV CONTRAST - WO ORAL CONTRAST 06/14/2023 1:59 PM FINDINGS: Lungs: No acute lung disease. No consolidation. Pleural spaces: Unremarkable. No pleural effusion. No pneumothorax. Heart/Mediastinum: No cardiomegaly. Bones/joints: Unremarkable. Right Gktkww-G-[id number] catheter noted. IMPRESSION IMPRESSION: No acute lung disease. THIS DOCUMENT HAS BEEN ELECTRONICALLY SIGNED BY TED HUTCHISON MD Rolo Cruz MD RADIOLOGY ([employer] [facility]) * (ABNORMAL) URINALYSIS, REFLEX TO MICROSCOPIC (06/14/2023 2:13 PM EST) Color, Urine Yellow Light Yellow, Yellow, Dark Yellow 06/14/2023 2:39 PM EST LAB[facility]ATORY [facility] Clarity, Urine Clear Clear 06/14/2023 2:39 PM EST [facility] Glucose, Urine Negative Negative mg/dL 06/14/2023 2:39 PM EST [facility] Bilirubin, Urine Negative Negative 06/14/2023 2:39 PM EST [facility] Ketone, Urine 15(A) Negative mg/dL 06/14/2023 2:39 PM EST [facility] Specific Harmans, Urine 1.017 1.003 - 1.030 06/14/2023 2:39 PM EST [facility] Blood, Urine Negative Negative 06/14/2023 2:39 PM EST [facility] pH, Urine 7.5 5.0 - 7.5 Units 06/14/2023 2:39 PM EST [facility] Protein, Urine Negative Negative mg/dL 06/14/2023 2:39 PM EST [facility] Urobilinogen, Urine 0.2 0.2, 1.0 mg/dL 06/14/2023 2:39 PM EST [facility] Nitrite, Urine Negative Negative 06/14/2023 2:39 PM EST [facility] Esterase, Urine Negative Negative 2:39 PM EST [facility] Comment, Urine 06/14/2023 2:39 PM EST [facility] Comment:Screen negative - Mi croscopic not performed. Urine Urine specimen obtained by clean catch procedure / Unknown Non-blood Collection / Unknown 06/14/2023 2:13 PM EST 06/14/2023 2:20 PM EST Artur Murillo MD LAB URINE ORDERABLES LABORATORY [address] [address] * CT ABD/PELVIS W IV CONTRAST - WO ORAL CONTRAST (06/14/2023 2:11 PM EST) Anatomical Region Laterality Modality Body, Abdomen, Pelvis Computed T omography 06/14/2023 1:59 PM EST Impressions 06/14/2023 2:22 PM EST IMPRESSION: 1. Jejunostomy tube is within proper position and no definite drainable fluid collection. 2. Mild cellulitis changes identified. 3. Injected contrast is within the jejunal lumens. 4. Moderate constipation. 5. 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 THIS DOCUMENT HAS BEEN ELECTRONICALLY SIGNED BY TED HUTCHISON MD Narrative 06/14/2023 2:22 PM EST PROCEDURE INFORMATION: Exam: CT Abdomen And Pelvis With Contrast Exam date and time: 06/14/2023 1:59 PM Age: 22 years old Clinical indication: Other: Wound infection, rlq pain, has preexisting enteral contrast in jejunum given during this er visit TECHNIQUE: Imaging protocol: Computed tomography of the [...] volume: 100 ml; Contrast route: INTRAVENOUS (IV); REPORTING DATA: Count of CT and Cardiac NM exams in prior 12 months: This patient has received 11 known CTs and 0 known cardiac nuclear medicine studies in the 12 months prior to the current study. COMPARISON: CT ABD/PELVIS W IV CONTRAST - WO ORAL CONTRAST 05/25/2023 10:26 PM FINDINGS: Tubes, catheters and devices: Jejunostomy tube is within proper position and no definite drainable fluid collection. Mild cellulitis changes identified. Injected contrast is within the jejunal lumens. Moderate constipation. 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 Pleural spaces: Bilateral pleural effusion with compressive atelectasis. Liver: Normal. No mass. Gallbladder and bile ducts: Normal. No calcified stones. No ductal dilation. Pancreas: Normal. No ductal dilation. Spleen: Normal. No splenomegaly. Adrenal glands: Normal. No mass. Kidneys and ureters: Normal. No hydronephrosis. Stomach and bowel: See "Tubes, catheters and devices" finding. Appendix: No evidence of appendicitis. Intraperitoneal space: Unremarkable. No free air. Trace amount of free fluid collection. Vasculature: Unremarkable. No abdominal aortic aneurysm. Lymph nodes: Nonspecific mesenteric and bilateral groin lymphadenopathy. Urinary bladder: Unremarkable as visualized. Reproductive: Unremarkable as visualized. Bones/joints: Unremarkable. No acute fracture. Soft tissues: See "Tubes, catheters and devices" finding. Procedure Note Ted Hutchison MD - 06/14/2023 PROCEDURE INFORMATION: Exam: CT Abdomen And Pelvis With Contrast Exam date and time: 06/14/2023 1:59 PM Age: 22 years old Clinical indication: Other: Wound infection, rlq pain, has preexistingenteral contrast in jejunum given during this er visit TECHNIQUE: Imaging protocol: Computed tomography of the abdomen and pelvis withcontrast. Radiation optimization: All CT scans at this facility use at least one ofthese dose optimization techniques: automated exposure control; mA and/or kV adjustment per patient size (includes targeted exams where dose is matchedto clinical indication); or iterative reconstruction. Contrast material: OPTI 350; Contrast volume: 100 ml; Contrast route: INTRAVENOUS (IV); REPORTING DATA: Count of CT and Cardiac NM exams in prior 12 months: This patient hasreceived 11 known CTs and 0 known cardiac nuclear medicine studies in the 12 months prior to the current study. COMPARISON: CT ABD/PELVIS W IV CONTRAST - WO ORAL CONTRAST 05/25/2023 10:26 PM FINDINGS: Tubes, catheters and devices: Jejunostomy tube is within proper positionand no definite drainable fluid collection. Mild cellulitis changes identified. Injected contrast is within the jejunal lumens. Moderate constipation. 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 Pleural spaces: Bilateral pleural effusion with compressive atelectasis. Liver: Normal. No mass. Gallbladder and bile ducts: Normal. No calcified stones. No ductaldilation. Pancreas: Normal. No ductal dilation. Spleen: Normal. No splenomegaly. Adrenal glands: Normal. No mass. Kidneys and ureters: Normal. No hydronephrosis. Stomach and bowel: See "Tubes, catheters and devices" finding. Appendix: No evidence of appendicitis. Intraperitoneal space: Unremarkable. No free air. Trace amount of freefluid collection. Vasculature: Unremarkable. No abdominal aortic aneurysm. Lymph nodes: Nonspecific mesenteric and bilateral groin lymphadenopathy. Urinary bladder: Unremarkable as visualized. Reproductive: Unremarkable as visualized. Bones/joints: Unremarkable. No acute fracture. Soft tissues: See "Tubes, catheters and devices" finding. IMPRESSION IMPRESSION: 1. Jejunostomy tube is within proper position and no definite drainablefluid collection. 2. Mild cellulitis changes identified. 3. Injected contrast is within the jejunal lumens. 4. Moderate constipation. 5. 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 THIS DOCUMENT HAS BEEN ELECTRONICALLY SIGNED BY TED HUTCHISON MD Rolo Cruz MD RAD CT * XR ABDOMEN 1 VIEW (06/14/2023 1:44 PM EST) Anatomical Region Laterality Modality Abdomen, Pelvis Digital Radiogra phy 06/14/2023 1:20 PM EST Impressions 06/14/2023 2:06 PM EST IMPRESSION: Jejunostomy tube identified with contrast identified within the jejunal lumen without any extravasation of the contrast. THIS DOCUMENT HAS BEEN ELECTRONICALLY SIGNED BY TED HUTCHISON MD Narrative 06/14/2023 2:06 PM EST PROCEDURE INFORMATION: Exam: XR Abdomen Exam date and time: 06/14/2023 1:20 PM Age: 22 years old Clinical indication: Device placement; Gi device; Peg tube; Patient HX: Confirmation of pej placement TECHNIQUE: Imaging protocol: Radiologic exam of the abdomen. Views: Frontal supine view of the abdomen. 1 View. COMPARISON: DX XR ABDOMEN 1 VIEW 05/29/2023 10:06 PM FINDINGS: Gastrointestinal tract: Jejunostomy tube identified with contrast identified within the jejunal lumen without any extravasation of the contrast. No bowel dilation. Bones/joints: Unremarkable. Procedure Note Ted Hutchison MD - 06/14/2023 PROCEDURE INFORMATION: Exam: XR Abdomen Exam date and time: 06/14/2023 1:20 PM Age: 22 years old Clinical indication: Device placement; Gi device; Peg tube; Patient HX: Confirmation of pej placement TECHNIQUE: Imaging protocol: Radiologic exam of the abdomen. Views: Frontal supine view of the abdomen. 1 View. COMPARISON: DX XR ABDOMEN 1 VIEW 05/29/2023 10:06 PM FINDINGS: Gastrointestinal tract: Jejunostomy tube identified with contrastidentified within the jejunal lumen without any extravasation of the contrast. Nobowel dilation. Bones/joints: Unremarkable. IMPRESSION IMPRESSION: Jejunostomy tube identified with contrast identified within the jejunallumen without any extravasation of the contrast. THIS DOCUMENT HAS BEEN ELECTRONICALLY SIGNED BY TED HUTCHISON MD Rolo Cruz MD RADIOLOGY ([employer] [facility]) * (ABNORMAL) CRP (INFLAMMATORY MARKER) (06/14/2023 1:19 PM EST) CRP (Inflammatory Marker) 77(H) <=5 mg/L 06/14/2023 1:45 PM EST LABORATORY GL Blood Venous blood specimen / Unknown Venipuncture / Unknown 06/14/2023 1:19 PM EST 06/14/2023 1:24 PM EST Rolo Cruz MD LAB BLOOD ORDER [facility] [address] [address] * (ABNORMAL) DIFFERENTIAL, AUTOMATED (06/14/2023 1:18 PM EST) WBC 4.31 4.00 - 10.80 K/uL 06/14/2023 1:27 PM EST LABORATORY GL Neutrophils % 50.8 40.0 - 75.0 % 06/14/2023 1:27 PM EST LABORATORY GL Lymphocytes % 36.2 18.0 - 42.0 % 06/14/2023 1:27 PM EST LABORATORY GL Monocytes % 11.1(H) 1.0 - 11.0 % 06/14/2023 1:27 PM EST LAB[facility] Eosinophils % 1.2 0.0 - 6.0 % 06/14/2023 1:27 PM EST LAB[facility] Basophils % 0.2 0.0 - 2.0 % 06/14/2023 1:27 PM EST LAB[facility]ORY [facility] Immature Granulocytes % 0.5 0.0 - 2.0 % 06/14/2023 1:27 PM EST LAB[facility]ORY [facility] Absolute Neutrophils 2.19 1.80 - 7.70 K/uL 06/14/2023 1:27 PM EST LAB[facility] Absolute Lymphocytes 1.56 1.00 - 4.80 K/ul 06/14/2023 1:27 PM EST LABORATORY GL Absolute Monocytes 0.48 0.00 - 1.10 K/uL 06/14/2023 1:27 PM EST LABORATORY GL Absolute Eosinophils 0.05 0.00 - 0.70 K/uL 06/14/2023 1:27 PM EST LABORATORY GL Absolute Basophils 0.01 0.00 - 0.20 K/uL 06/14/2023 1:27 PM EST LABORATORY GL Absolute Immature Granulocytes 0.02 0.00 - 0.20 K/uL 06/14/2023 1:27 PM EST LABORATORY GL Blood Venous blood specimen / Unknown Venipuncture / Unknown 06/14/2023 1:18 PM EST 06/14/2023 1:24 PM EST Artur Murillo MD LAB BLOOD ORDERABLES Performing Organization Address City/State/[facility] Co de Phone Number LABORATORY [address] [address] * (ABNORMAL) CBC (06/14/2023 1:18 PM EST) WBC 4.31 4.00 - 10.80 K/uL 06/14/2023 1:27 PM EST LABORATORY GL RBC 3.87 3.85 - 5.15 M/uL 06/14/2023 1:27 PM EST LABORATORY GL HGB 11.9(L) 12.0 - 15.3 g/dL 06/14/2023 1:27 PM EST LABORATORY GL HCT 33.9(L) 36.0 - 45.2 % 06/14/2023 1:27 PM EST LABORATORY [facility] MCV 87.6 81.5 - 97.5 fL 06/14/2023 1:27 PM EST LABORATORY [facility] MCH 30.7 27.0 - 34.0 pg 06/14/2023 1:27 PM EST LABORATORY [facility] MCHC 35.1 32.0 - 36.0 g/dL 06/14/2023 1:27 PM EST LABORATORY [facility] RDW 11.7 11.5 - 15.5 % 06/14/2023 1:27 PM EST LABORATORY [facility] PLT 274 140 - 400 K/uL 06/14/2023 1:27 PM EST LABORATORY [facility] MPV 9.7 6.6 - 11.1 fL 06/14/2023 1:27 PM EST LABORATORY [facility] nRBCs 0 <=0 /100 WBCs 06/14/2023 1:27 PM EST LABORATORY [facility] Blood Venous blood specimen / Unknown Venipuncture / Unknown 06/14/2023 1:18 PM EST 06/14/2023 1:24 PM EST Artur Murillo MD LAB BLOOD ORDERABLES LABORATORY [address] [address] * LACTATE WITH REFLEX IF ABNORMAL (06/14/2023 1:18 PM EST) Lactate 0.6 0.4 - 2.0 mmol/L 06/14/2023 1:41 PM EST LABORATORY [facility] Blood Venous blood specimen / Unknown Venipuncture / Unknown 06/14/2023 1:18 PM EST 06/14/2023 1:24 PM EST Artur Murillo MD LAB BLOOD ORDERABLES Performing Organization Address City/[facility]/ZIP Co de Phone Number LABORATORY [address] [address] * (ABNORMAL) PROCALCITONIN (06/14/2023 1:18 PM EST) Procalcitonin 1.05(H) <0.10 ng/mL 06/14/2023 1:54 PM EST LABORATORY GL Blood Venous blood specimen / Unknown Venipuncture / Unknown 06/14/2023 1:18 PM EST 06/14/2023 1:25 PM EST Narrative LAB[facility]ATORY [facility] - 06/14/2023 1:54 PM EST Less than 0.5 ng/mL: Low risk for progression to sepsis. Review patients condition for localized infections. 0.5 to 2.0 ng/mL: Intermediate risk for progresion to sepsis. Review underlying conditions. Recommend repeat PCT after 6 hours has elapsed. Greater than 2.0 ng/mL: high risk for progression to sepsis unless other causes are known. Artur Murillo MD LAB BLOOD ORDERABLES Performing Organization Address City/[facility]/ZIP Co de Phone Number LABORATORY [address] [address] * EXTRA LIGHT BLUE TOP (06/14/2023 1:18 PM EST) Blood Venous blood specimen / Unknown Venipuncture / Unknown 06/14/2023 1:18 PM EST 06/14/2023 1:25 PM EST Artur Murillo MD LAB BLOOD ORDERABLES Performing Organization Address City/[facility]/ZIP Co de Phone Number LABORATORY [address] [address] * LIPASE (06/14/2023 1:18 PM EST) Lipase 20 13 - 60 U/L 06/14/2023 2:05 PM EST LABORATORY [facility] Blood Venous blood specimen / Unknown Venipuncture / Unknown 06/14/2023 1:18 PM EST 06/14/2023 1:25 PM EST Artur Murillo MD LAB BLOOD ORDERABLES Performing Organization Address [facility] Co de Phone Number LABORATORY [address] [address] * (ABNORMAL) COMPREHENSIVE METABOLIC PANEL (06/14/2023 1:18 PM EST) BUN 4(L) 6 - 20 mg/dL 06/14/2023 2:05 PM EST LAB[facility] Creatinine 0.5 0.5 - 1.0 mg/dL 06/14/2023 2:05 PM EST [facility] Estimated Glomerular Filtration Rate >90 >=60 mL/min 06/14/2023 2:05 PM EST [facility] Comment:eGFR is calculated b ased on the CKD-EPI 2020 equation Sodium 140 135 - 146 mmol/L 06/14/2023 2:05 PM EST [facility] Potassium 3.8 3.5 - 5.1 mmol/L 06/14/2023 2:05 PM EST [facility] Chloride 103 98 - 107 mmol/L 06/14/2023 2:05 PM EST [facility] CO2 24 22 - 32 mmol/L 06/14/2023 2:05 PM EST [facility] Anion Gap 13 7 - 15 mmol/L 06/14/2023 2:05 PM EST [facility] Glucose 91 70 - 120 mg/dL 06/14/2023 2:05 PM EST [facility] Albumin 3.4(L) 3.8 - 5.0 g/dL 06/14/2023 2:05 PM EST [facility] AST 19 10 - 35 U/L 06/14/2023 2:05 PM EST [facility] Alkaline Phosphatase 81 35 - 130 U/L 06/14/2023 2:05 PM EST [facility] Bilirubin, Total 0.2 <=1.2 mg/dL 06/14/2023 2:05 PM EST [facility] Calcium 9.3 8.4 - 10.2 mg/dL 06/14/2023 2:05 PM EST [facility] Protein 6.7 6.0 - 8.3 g/dL 06/14/2023 2:05 PM EST [facility] ALT 15 10 - 35 U/L 06/14/2023 2:05 PM EST [facility] Blood Venous blood specimen / Unknown Venipuncture / Unknown 06/14/2023 1:18 PM EST 06/14/2023 1:25 PM EST Artur Murillo MD LAB BLOOD ORDERABLES LABORATORY [facility] [address] [place], [place] [id number] * RESPIRATORY PATHOGEN PANEL, PCR (06/14/2023 11:53 AM EST) Adenovirus by PCR Negative Negative 023 12:43 PM EST LABORATORY [facility] Coronavirus 229E by PCR Negative Negative 06/14/2023 12:43 PM EST [facility] Coronavirus HKU1 by PCR Negative Negative 06/14/2023 12:43 PM EST [facility] Coronavirus NL63 by PCR Negative Negative 06/14/2023 12:43 PM EST [facility] Coronavirus OC43 by PCR Negative Negative 06/14/2023 12:43 PM EST [facility] Coronavirus SARS-CoV-2 by PCR Negative Negative 06/14/2023 12:43 PM EST [facility] Human Metapneumovirus by PCR Negative Negative 06/14/2023 12:43 PM EST [facility] Rhinovirus/Enterovi dinesh by PCR Negative Negative 06/14/2023 12:43 PM EST [facility] Influenza A Virus by PCR Negative Negative 06/14/2023 12:43 PM EST [facility] Influenza B Virus by PCR Negative Negative 06/14/2023 12:43 PM EST [facility] Parainfluenza Virus 1 by PCR Negative Negative 06/14/2023 12:43 PM EST [facility] Parainfluenza Virus 2 by PCR Negative Negative 06/14/2023 12:43 PM EST [facility] Parainfluenza Virus 3 by PCR Negative Negative 06/14/2023 12:43 PM EST [facility] Parainfluenza Virus 4 by PCR Negative Negative 06/14/2023 12:43 PM EST [facility] Respiratory Syncytial Virus by PCR Negative Negative 06/14/2023 12:43 PM EST [facility] Bordetella pertussis by PCR Negative Negative 06/14/2023 12:43 PM EST [facility] Chlamydia pneumoniae by PCR Negative Negative 06/14/2023 12:43 PM EST [facility] Mycoplasma pneumoniae by PCR Negative Negative 06/14/2023 12:43 PM EST [facility]AT[facility] Bordetella parapertussis by PCR Negative Negative 06/14/2023 12:43 PM EST LABORATORY [facility] Comment: The primers that detect Rhinovirus may cross react with some Enterorviruses. The validation of bronchial specimens, tracheal aspirates, and throats for this assay was developed and performance characteristics determined by [facility]. The validation of alternate specimen types has not been cleared or approved by the U.S. Food and Drug Administration (FDA). It has been determined that such clearance or approval is not necessary. Upper Respiratory Mid-turbinate nasal swab / Unknown Non-blood Collection / Unknown 06/14/2023 11:53 AM EST 06/14/2023 11:56 AM EST Artur Murillo MD LAB MICRO - GENERAL ORDERABLES LABORATORY [facility] [address] [place] [address] documented in this encounter Visit Diagnoses Diagnosis Abdominal wall cellulitis- Primary Cellulitis and abscess of trunk Other chronic pain Nausea without vomiting documented in this encounter Administered Medications Inactive Administered Medications - up to 3 most recent administrations Medication Order MAR Action Action Date Dose Rate Site cefTRIAXone in dextrose (Rocephin) IVPB 1 g IV Piggyback, 1 g, ONCE, 1 dose, On Wed06/14/23 at 1645, Administer over 30 Minutes New Bag 06/14/2023 4:18 PM EST 1 g 100 mL/hr Gabapentin (Neurontin) cap 300 mg 300 mg, J Tube, ONCE, On Wed06/14/23 at 1415, For 1 dose, Crushed, suspended in water then put through PEJ tube followed by 20 ml water flush Given 06/14/2023 2:32 PM EST 300 mg HYDROmorphone (Dilaudid) inj 0.5 mg 0.5 mg, IV Push, ONCE, On Wed06/14/23 at 1330, For 1 dose Given 06/14/2023 1:37 PM EST 0.5 mg Ioversol (Optiray 320) inj 100 mL 100 mL, Intravenous, ONCE, On Wed06/14/23 at 1430, For 1 dose, Radiology Medication Routing (Non-IR) Given 06/14/2023 1:45 PM EST 20 mL Ioversol (Optiray 350) 74 % inj 100 mL 100 mL, Intravenous, ONCE, On Wed06/14/23 at 1445, For 1 dose, Radiology Medication Routing (Non-IR) Given 06/14/2023 2:45 PM EST 100 mL NSS 0.9% 1,000 mL bolus infusion Peripheral IV, at 1,000 mL/hr Administer over 60 Minutes, Administer entire volume within 60 minutes or less., ONCE, 1 dose, On Wed06/14/23 at 1315 New Bag 06/14/2023 1:15 PM EST 1,000 mL 1000 mL/hr promethazine (Phenergan) supp 12.5 mg 12.5 mg, Rectal, ONCE, On Wed06/14/23 at 1315, For 1 dose, Refrigerate !! Given 06/14/2023 1:39 PM EST 12.5 mg documented in this encounter Active and Recently Administered Medications Times are shown in EST. Scheduled Medication Order 06/12/2023 06/13/2023 06/14/2023 cefTRIAXone in dextrose (Rocephin) IVPB 1 g (COMPLETED) IV Piggyback, 1 g, ONCE, 1 dose, On Wed06/14/23 at 1645, Administer over 30 Minutes 1618 (New Bag - Prov ider: Krishna Roque RN)1712 (Stopped - Provider: Krishna Roque RN) Gabapentin (Neurontin) cap 300 mg (COMPLETED) 300 mg, J Tube, ONCE, On Wed06/14/23 at 1415, For 1 dose, Crushed, suspended in water then put through PEJ tube followed by 20 ml water flush 1432 (Given - Provid er: Krishna Roque RN) HYDROmorphone (Dilaudid) inj 0.5 mg (COMPLETED) 0.5 mg, IV Push, ONCE, On Wed06/14/23 at 1330, For 1 dose 1337 (Given - Provid er: Krishna Roque RN) Ioversol (Optiray 320) inj 100 mL (COMPLETED) 100 mL, Intravenous, ONCE, On Wed06/14/23 at 1430, For 1 dose, Radiology Medication Routing (Non-IR) 1345 (Given - Provid er: Yaniv Aleman, RT (R)) Ioversol (Optiray 350) 74 % inj 100 mL (COMPLETED) 100 mL, Intravenous, ONCE, On Wed06/14/23 at 1445, For 1 dose, Radiology Medication Routing (Non-IR) 1445 (Given - Provid er: Melba Alonzo, RT (R)) NSS 0.9% 1,000 mL bolus infusion (COMPLETED) Peripheral IV, at 1,000 mL/hr Administer over 60 Minutes, Administer entire volume within 60 minutes or less., ONCE, 1 dose, On Wed06/14/23 at 1315 1315 (New Bag - Prov ider: Krishna Roque RN)1456 (Stopped - Provider: Krishna Roque RN) promethazine (Phenergan) supp 12.5 mg (COMPLETED) 12.5 mg, Rectal, ONCE, On Wed06/14/23 at 1315, For 1 dose, Refrigerate !! 1339 (Given - Provid er: Krishna Roque RN) documented in this encounter Additional Health Concerns [...] the patient have Health Care Power of Stamping Operator? No Full Code 07/18/2021 7:04 AM 08/03/2021 4:12 PM This order reflects the patients wishes and were consensually agreed upon. Question Answer Comments Discussion of Advance Directives occurred with: Not Discussed Care Teams Score Caller Relationship Specialty Start Date End Date Kinjal Reynoso PA-C [address] [phone] PCP - General Physician Subscription Agent 11/05/22 documented as of this encounter
--- OUTSIDE RECORDS SUMMARY | 2023-08-07 19:29 | External Medical Summary | Summary of Care ---
Author Name Unknown Organization [facility] Address [address] [place] [address] Phone [phone] Care Team Providers Care Associate Application Developer Name Role Phone Kinjal Reynoso PA-C Primary Care Provider [phone] Reason for Visit * Reason Onset Date Comments Appointment 06/07/2023 Advice 06/07/2023 Encounter Details Date Type Department Care Team (Late st Contact Info) Description 06/07/2023 Telephone General Surgery [facility] [address] [facility] [address] [place] [address] Services, Scheduling [address] [place] [address] Appointment; Advice Allergies Active Allergy Reactions Criticality Noted [...] OPIOID OVERDOSE - SEEK IMMEDIATE MEDICAL ATTENTION. [email or web address] 2 Each 3 03/31/2023 Active Additional Information Patient not taking.Reported on 05/18/2023 Gabapentin 100 MG Oral Capsule (Neurontin) Take 2 Capsules by mouth in the morning and 2 Capsules at noon and 2 Capsules before bedtime. 180 Capsule 0 03/31/2023 Active Peptamen 1.5 Oral Liquid Administer 1000 mL daily, as directed through J Tube via feeding pump 35602 mL 11 04/12/2023 Active Ondansetron 4 MG [...] encounter Miscellaneous Notes * Telephone Encounter - Vicki Murcia CMA - 06/07/2023 2:53 PM EST Called and spoke to Anirudh. She states that she feels like her surgery with [place] surgeon willbe 06/10 so she no longers needs. * Telephone Encounter - Shell Puente OSA - 06/07/2023 11:04 AM EST Pt calling in stating she had a Jtube put in at [place]. Pt was trying to be seen there, but their appointments are pushed back. Pt stated that she was able to do the seeds, but its been leaking out and it de luna. Pt stated it leaks every day. Pt asking to see Dr. Leong if possible. Ph. [phone] documented in this encounter Plan of Treatment Upcoming Encounters Date Type Department Care Team (Shaggy camargo Contact Info) Description 07/15/2023 8:40 AM EST Office Visit Family Practice, [facility] [address] [phone] Kinjal Reynoso PA-C [address] [phone] 09/20/2023 12:40 PM EDT Office Visit Nutrition & Weight Management, [facility] [address] [phone] Cee Santizo PA-C [address] [place] [phone] Health Maintenance Due Date Last Done Comments [...] this encounter Medical Devices Implanted Type Area Senior Game Advisor Device Identifier Shelf Expiration Date Model / Serial / Lot Port Implant W/8f Poly Cath - [id number] Implanted:Qty : 1 on 05/18/2023 by Juan Jose Connell DO at OR [facility] Right: Chest CR BARD : PERIPHERAL VASCULAR [id number] 11/18/2024 [id number] / / [id number] documented as of this encounter Advance Directives [...] the patient have Health Care Power of Corn Cooker? No Full Code 07/18/2021 7:04 AM 08/03/2021 4:12 PM This order reflects the patients wishes and were consensually agreed upon. Question Answer Comments Discussion of Advance Directives occurred with: Not Discussed Care Teams Associate Application Developer Relationship Specialty Start Date End Date Kinjal Reynoso PA-C [address] [phone] PCP - General Physician Honey Grader And Blender 11/05/22 documented as of this encounter
--- NOTE | 2023-08-07 19:47 | Emergency Department Note ---
Impression & Plan Dislodged jejunostomy tube, Abdominal pain ED Provider Note NAME: ELIF LEVY AGE: 22 SEX: F : 2000 ARRIVES VIA: Walk-In INFORMANT: Patient ED PROVIDER(S): Ankit Matthews DO CHIEF COMPLAINT: Abdominal pain HPI: Patient is a 22-year-old female with a past medical history of gastroparesis and a G-tube placed in [place] by [facility] who presents to the ER for abdominal pain. She notes she has had this exchanged by [facility] previously. While she was in [place] she has been having pain for the past 4 days and notes that the sutures became dislodged. She notes that the pain has been increasing today. She had CT and blood work done at [facility]. CT was done and showed possible dislodgment of her J-tube. She notes that her surgeon recommended that she come appear to possibly be evaluated as no one at [facility] with touch it. She notes that the pain is focal around her J-tube. ADDITIONAL HISTORY OBTAINED: Per HPI Chronic Medical/Social Conditions Affecting Care: Per HPI PAST MEDICAL HISTORY:See Below PAST SURGICAL HISTORY:See Below FAMILY HISTORY:See Below SOCIAL HISTORY:See Below HOME MEDICATIONS:See Below ALLERGIES:See Below VITALS:See Below PHYSICAL EXAMINATION: GENERAL: Sitting up in bed, alert, well appearing, well nourished, no distress, non-toxic EYE EXAM: normal conjunctiva. OROPHARYNX: no exudate, no erythema, lips, buccal mucosa, and tongue normal and mucous membranes are moist NECK: supple, no nuchal rigidity, no adenopathy, non-tender LUNGS: Clear to auscultation. Normal chest wall mechanics HEART: no murmurs, S1 normal and S2 normal ABDOMEN: abdomen soft, tenderness around the J-tube insertion site with the bumper and a fair amount of tubing protruding. Gastric contents within the tubing. normo-active bowel sounds, no masses, no rebound or guarding. UPPER EXTREMITIES: upper extremities are grossly normal. LOWER EXTREMITIES: No pitting edema. NEURO EXAM: Normal sensorium, cranial nerves II-XII grossly intact, normal speech, no gross weakness of arms, no gross weakness of legs. MEDICAL DECISION MAKING: Patient is a 22-year-old female who presents to the ER for the above-stated complaint. She declined blood work and imaging. She notes she had everything done earlier today at [facility]. She came here as her surgeon recommended coming here as our IR team may be able to deal with the J-tube. Per report [facility] general surgeon spoke with [place] general surgeon and the plan was to discharge her and have her follow-up on Wednesday in the office and not use the J-tube till then. Labs show no significant leukocytosis or anemia. BMP along LFTs bilirubin lipase is unremarkable. UA was negative. Was unable to review the CT performed at [facility] but did discuss this with interventional radiology at [facility]. I spoke with Dr. Rodgers and she noted that it would be reasonable to attempt to salvage this tomorrow. She recommended leaving the tube in place. Spoke with hospitalist at [facility] and patient was accepted. They will not give us a bed till tomorrow and consequently discussed case with our hospitalist Dr. Yi approved for observation. Patient expressed understanding. She was given morphine while here and IV fluids awaiting for transfer to [facility] for intervention on her dislodged J-tube. Instructed not to use the J-tube until she follows up with IR. As discussed external records were reviewed from [facility] earlier today. Consults/Care Managements Discussions: Per MDM Triage Nursing notes reviewed. Limited review of prior medical records performed Vital Signs: reviewed and remarkable for no significant abnormalities Differential diagnosis: Differential diagnoses includes but is not limited to gastritis, peptic ulcer disease, GERD, gallbladder disease, pancreatitis, small bowel obstruction, appendicitis, diverticulitis, hernia, urinary tract infection, torsion, /ectopic (if female), perforation, trauma, infectious. ER treatment provided: See below Diagnostics interpreted by me include EKG and cardiac monitoring as listed below: -Cardiac Monitoring: An order was placed for continuous cardiac monitoring. The monitor shows a rate of 70 with sinus rhythm. -ECG: none -Laboratory studies:Interpreted by me as stated above in MDM and shown below. Imaging studies: Xrays: As interpreted by me:none CTs show: none Procedures:none Critical Care: None Past Med/Surg History Medical History Chronic abdominal pain Non-cardiac chest pain Internal hemorrhage Mood disorder Endometriosis Chest pain Surgical History H/O: hysterectomy Social History Smoking Status: Current every day smoker Tobacco Type: E-cigarettes / Vaping Hx Alcohol Use: No Hx Substance Use: Yes Last Used Substance Other:: last used "about a week ago" Substance Use Type Other:: vapes THC currently; no longer medical marijuana use Preferred Language: Gabonese Communication Ability: Effective Php Consultant Required: No Beliefs That Will Affect Care: None Current Living Situation: Alone Feels Safe at Home: Yes Assistive Devices: None Allergies Allergies Allergy/AdvReac Type Severity Reaction Status Date / Time metoclopramide [From Reglan] AdvReac Unknown Verified 08/07/23 22:24 ondansetron [From Zofran] AdvReac Flushing Verified 08/07/23 22:24 prochlorperazine AdvReac Agitated Verified 08/07/23 22:24 [From Compazine] Home Meds Home Medications Medication Instructions Recorded Confirmed acetaminophen 160 mg/5 mL oral 0 mg feeding tube BID PRN Pain 08/07/23 08/07/23 suspension (Children's Acetaminophen) gabapentin 300 mg capsule 300 mg feeding tube TID PRN Pain 08/07/23 08/07/23 lansoprazole 15 mg capsule,delayed 15 mg PO DAILY PRN Acid Reflux 08/07/23 08/07/23 release naloxone 4 mg/actuation nasal spray 1 spray intranasal DIRECTED PRN 08/07/23 08/07/23 .Opiod od nutritional supplements 0 ea feeding tube DIRECTED 08/07/23 08/07/23 oxycodone 5 mg tablet 5 mg feeding tube Q6H PRN Pain 08/07/23 08/07/23 polyethylene glycol 3350 17 17 g feeding tube DAILY PRN 08/07/23 08/07/23 gram/dose oral powder (Miralax) Constipation promethazine 25 mg tablet 25 mg feeding tube Q6 PRN Nausea 08/07/23 08/07/23 Results & Data (ED) Vital Signs Vital Signs - 24 hr 08/07/23 19:19 08/07/23 22:00 08/07/23 22:00 Temperature 36.4 C L Temperature Source Temporal Artery Scan Pulse Rate 108 H 72 Pulse Rate [Right Radial] 72 Respiratory Rate 18 18 18 Blood Pressure 160/103 H Blood Pressure [Right Arm] 121/82 Blood Pressure Mean 122 Blood Pressure Mean [Right Arm] 95 Blood Pressure Position Sitting Pulse Oximetry 98 97 98 Oxygen Delivery Method Room Air Room Air Room Air Sepsis Recent Fever Within 48 Hours No Sepsis New/Unexplained Change in Mental Status No Sepsis Action Taken by Nursing No Action Required Laboratory Data 08/07/23 20:44 08/07/23 20:44 Lab Results 08/07/23 08/07/23 Range/Units 20:35 20:44 WBC 8.06 (4.8-10.8) K/ul RBC 4.54 (4.20-5.40) M/uL Hgb 13.4 (12.0-16.0) g/dl Hct 38.1 (37.0-47.0) % MCV 83.9 (80.0-100.0) fL MCH 29.5 (25.0-34.0) pg MCHC 35.2 (32.0-36.0) g/dL RDW Std Deviation 39.4 (36.4-46.3) fL RDW Coeff of Angy 12.9 (11.5-14.5) % Plt Count 271 (130-400) K/uL MPV 10.2 (9.4-12.4) fL Immature Gran % (Auto) 0.2 % Neut % (Auto) 50.4 % Lymph % (Auto) 42.9 % [place] % (Auto) 6.1 % Eos % (Auto) 0.2 % Baso % (Auto) 0.2 % Neut # (Auto) 4.05 (1.40-6.50) K/uL Lymph # (Auto) 3.46 H (1.20-3.40) K/uL [place] # (Auto) 0.49 (0.11-0.59) K/uL Eos # (Auto) 0.02 (0.00-0.50) K/uL Baso # (Auto) 0.02 (0.00-0.20) K/uL Immature Gran # (Auto) 0.02 (0.01-0.20) K/uL Sodium 141 (136-145) mmol/L Potassium 3.5 (3.5-5.1) mmol/L Chloride 107 (98-107) mmol/L Carbon Dioxide 26 (21-32) mmol/L Anion Gap 8 (3-11) BUN 7 (6-23) mg/dl Creatinine 0.64 (0.6-1.2) mg/dl Est Cr Clr Drug Dosing 129.5 ml/min Est GFR ( Amer) 147.8 ml/min Est GFR (Non-Af Amer) 127.6 ml/min BUN/Creatinine Ratio 10.9 (10-20) Glucose 81 (70-99(Fasting)) mg/dl Calcium 9.4 (8.6-10.3) mg/dl Total Bilirubin 0.5 (0.2-1.0) mg/dl AST 12 L (13-39) U/L ALT 11 (7-52) U/L Alkaline Phosphatase 80 (34-104) U/L Total Protein 7.4 (6.0-8.3) gm/dl Albumin 4.2 (3.4-5.0) gm/dl Globulin 3.2 (2.5-4.0) gm/dl Albumin/Globulin Ratio 1.3 (0.9-2) Lipase 10 L (11-82) U/L Urine Color Yellow Urine Appearance Clear (Clear) Urine pH 6.5 (4.5-7.5) Ur Specific [place] > 1.045 H (1.000-1.030) Urine Protein Negative (Negative) Urine Glucose (UA) Negative (Negative) Urine Ketones Negative (Negative) Urine Blood Negative (Negative) Urine Nitrite Negative (Negative) Urine Bilirubin Negative (Negative) Urine Urobilinogen Negative (Negative) Ur Leukocyte Esterase Negative (Negative) SARS-CoV-2, RNA, NAAT NEGATIVE (NEGATIVE) Administered Medications Discontinued Medications Sodium Chloride (Nss) 1,000 mls @ 999 mls/hr IV .Q1H1M CARLOS Stop: 08/07/23 23:30 Last Admin: 08/07/23 22:05 Dose: 999 mls/hr Documented By: SCOTTIE Morphine Sulfate (Morphine Sulfate 4 Mg/Ml 1 Ml Carp\\Vial) 4 mg IV NOW STA Stop: 08/07/23 21:17 Last Admin: 08/07/23 22:10 Dose: 4 mg Documented By: SCOTTIE Discharge Plan Visit Data Chief Complaint: Feeding/PEG Tube Replacement Stated Complaint: J TUBE OUT OF PLACE, ABDOMINAL PAIN ED Provider: Matthews,Ankit M Discharge Problem: Dislodged jejunostomy tube, Abdominal pain Forms Stand Alone Forms: My [facility] Prescriptions Prescriptions: No Action acetaminophen [Children's Acetaminophen] 160 mg/5 mL suspension 0 mg feeding tube BID PRN (Reason: Pain) Rx Instructions: Dose 31.2 ml Peptamen 1.5 Liquid 0 ea feeding tube DIRECTED Rx Instructions: 1,000 ml daily promethazine 25 mg tablet 25 mg feeding tube Q6 PRN (Reason: Nausea) lansoprazole 15 mg capsule,delayed release(DR/EC) 15 mg PO DAILY PRN (Reason: Acid Reflux) gabapentin 300 mg capsule 300 mg feeding tube TID PRN (Reason: Pain) polyethylene glycol 3350 [Miralax] 17 gram/dose Powder 17 g feeding tube DAILY PRN (Reason: Constipation) oxycodone 5 mg Tablet 5 mg feeding tube Q6H PRN (Reason: Pain) naloxone 4 mg/actuation spray,non-aerosol 1 spray INTRANASAL DIRECTED PRN (Reason: .Opiod od) Referrals Referrals: PCP,NO [Physician] - Discharge Problem: Abdominal pain Qualifiers: Abdominal location: unspecified location Qualified Code(s): R10.9 - Unspecified abdominal pain
[2023-08-07 20:48] LABS: Appearance Urine Clear (Clear); Bilirubin Urine Negative (Negative); Blood Urine Negative (Negative); Color Urine Yellow; Glucose Urine UA Negative (Negative); Ketones Urine Negative (Negative); Leukocyte Esterase Urine Negative (Negative); Nitrite Urine Negative (Negative); Protein Urine Negative (Negative); Specific Gravity Urine > 1.045 (1.000-1.030); Urobilinogen Urine Negative (Negative); pH Urine 6.5 (4.5-7.5)
[2023-08-07 21:17] LABS: Albumin Globulin Ratio 1.3 (0.9-2); Albumin Level 4.2 gm/dl (3.4-5.0); BUN Creatinine Ratio 10.9 (10-20); Bilirubin,Total 0.5 mg/dl (0.2-1.0); Calcium 9.4 mg/dl (8.6-10.3); Creatinine Clr Calc Pharmacy 129.5 ml/min; Est GFR (African American) 147.8 ml/min; Est GFR (Non-African American) 127.6 ml/min; Globulin 3.2 gm/dl (2.5-4.0); Potassium 3.5 mmol/L (3.5-5.1); Total Protein 7.4 gm/dl (6.0-8.3)
[2023-08-07 21:27] LABS: Basophils # (auto) 0.02 K/uL (0.00-0.20); Basophils % (auto) 0.2 %; Eosinophils # (auto) 0.02 K/uL (0.00-0.50); Eosinophils % (auto) 0.2 %; Hematocrit (blood only) 38.1 % (37.0-47.0); Hemoglobin 13.4 g/dl (12.0-16.0); Immature Granulocytes # (auto) 0.02 K/uL (0.01-0.20); Immature Granulocytes % (auto) 0.2 %; Lymphocytes # (auto) 3.46 K/uL (1.20-3.40); Lymphocytes % (auto) 42.9 %; Mean Corpuscular Hemoglobin 29.5 pg (25.0-34.0); Mean Corpuscular Hgb Conc 35.2 g/dL (32.0-36.0); Mean Corpuscular Volume 83.9 fL (80.0-100.0); Mean Platelet Volume 10.2 fL (9.4-12.4); Monocytes # (auto) 0.49 K/uL (0.11-0.59); Monocytes % (auto) 6.1 %; Neutrophils # (auto) 4.05 K/uL (1.40-6.50); Neutrophils % (auto) 50.4 %; Platelet Count 271 K/uL (130-400); RDW Coefficient of Variation 12.9 % (11.5-14.5); RDW Standard Deviation 39.4 fL (36.4-46.3); Red Blood Count 4.54 M/uL (4.20-5.40); White Blood Count 8.06 K/ul (4.8-10.8)
[2023-08-07] MEDS: SODIUM CHLORIDE 0.9% 1,000 ML IV SCH (22:05)
[2023-08-07] MEDS: MoRPHine SULFATE 4 MG/ML 1 ML CARP\\VIAL IV STA (22:10)
--- NOTE | 2023-08-08 00:27 | History & Physical Report ---
Date of Service August 08, 2023 Assessment & Plan (1) Dislodged jejunostomy tube: Plan: 22-year-old female history of gastroparesis s/p J-tube, depression anxiety, PTSD, endometriosis, medical marijuana use,went to [facility] today because having abdominal pain for last few days and noticed the sutures that are holding the J-tube were dislodged. CAT scan done at [facility] showed possible dislodged J-tube. [facility] talked with her [facility] and plan was to discharge and follow-up with [facility] team. But patient states she was advised to come to this hospital by her [facility] surgery. ER called [facility] and she was accepted in transfer. But there are no beds tonight. So we are called for admission. Complains of severe abdominal pain. No chest pain or shortness of breath. Has some nausea. No headache. No fevers. No earache or runny nose or sore throat. Normal bowel and bladder movements. Hemodynamically stable. Possible dislodged jejunostomy tube Abdominal pain N.p.o. IV fluids IV pain meds as needed IV antiemetics as needed Awaiting transfer to [place] DVT prophylaxis SCDs Disposition Medical floor Transfer to [facility] when bed available History of Present Illness Chief Complaint: J-tube displacement Primary Care Provider: Kinjal Reynoso PA-C 22-year-old female history of gastroparesis s/p J-tube, depression anxiety, PTSD, endometriosis, medical marijuana use,went to [facility] today jessica use having abdominal pain for last few days and noticed the sutures that are holding the J-tube were dislodged. CAT scan done at [facility] showed possible dislodged J-tube. [facility] talked with her [facility] and plan was to discharge and follow-up with [facility] team. But patient states she was advised to come to this hospital by her [facility] surgery. ER called [facility] and she was accepted in transfer. But there are no beds tonight. So we are called for admission. Complains of severe abdominal pain. No chest pain or shortness of breath. Has some nausea. No headache. No fevers. No earache or runny nose or sore throat. Normal bowel and bladder movements. Hemodynamically stable. 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 As mentioned above Past surgical history. Appendectomy. Colonoscopy and EGD. Laparoscopic hysterectomy, diagnostic laparoscopy. J-tube placement. Social history. No smoking. Alcohol occasional. Family history. Father had GI problems. Mother has irritable bowel syndrome. Migraines. Maternal grandmother had hypertension. Allergies Allergy/AdvReac Type Severity Reaction Status Date / Time metoclopramide [From Reglan] AdvReac Unknown Verified 08/07/23 22:24 ondansetron [From Zofran] AdvReac Flushing Verified 08/07/23 22:24 prochlorperazine AdvReac Agitated Verified 08/07/23 22:24 [From Compazine] Home Medications Medication Instructions Recorded Confirmed Type acetaminophen 160 mg/5 mL oral 0 mg feeding tube BID PRN Pain 08/07/23 08/07/23 History suspension (Children's Acetaminophen) gabapentin 300 mg capsule 300 mg feeding tube TID PRN Pain 08/07/23 08/07/23 History lansoprazole 15 mg capsule,delayed 15 mg PO DAILY PRN Acid Reflux 08/07/23 08/07/23 History release naloxone 4 mg/actuation nasal spray 1 spray intranasal DIRECTED PRN 08/07/23 08/07/23 History .Opiod od nutritional supplements 0 ea feeding tube DIRECTED 08/07/23 08/07/23 History oxycodone 5 mg tablet 5 mg feeding tube Q6H PRN Pain 08/07/23 08/07/23 History polyethylene glycol 3350 17 17 g feeding tube DAILY PRN 08/07/23 08/07/23 History gram/dose oral powder (Miralax) Constipation promethazine 25 mg tablet 25 mg feeding tube Q6 PRN Nausea 08/07/23 08/07/23 History Past Med/Surg History Medical History Chronic abdominal pain Non-cardiac chest pain Internal hemorrhage Mood disorder Endometriosis Chest pain Surgical History H/O: hysterectomy Social History Smoking Status: Current every day smoker Tobacco Type: E-cigarettes / Vaping Second Hand Exposure: No; Do You Dip or Chew Tobacco: No; Hx Alcohol Use: No Hx Substance Use: Yes Last Used Substance: Days (ago) Last Used Substance Other:: last used "about a week ago" Substance Use Type Other:: Medical Marijuana - once a week. Preferred Language: Ukrainian Communication Ability: Effective Printmaker Required: No Beliefs That Will Affect Care: None Current Living Situation: Family Other Information That Helps Us Care for You: No Feels Safe at Home: Yes Safety Concerns: Feels Safe At This Time Assistive Devices: None Review of Systems Review of Systems: All systems reviewed & are unremarkable except as noted in HPI & below Physical Exam Physical Exam: General- Not in distress. Head- atraumatic Eyes- PERRL. ENT- oropharynx clear Neck- supple, no JVD. Lungs- clear to auscultation no wheezing or crackles Heart- regular rhythm; no murmur, no gallop. Abdomen- normal bowel sounds, soft,diffuse tender and guarding no distension. j tube seen. no erythema or drainage around j tube. Extremities- no pretibial edema, no erythema. Neuro- alert, oriented x 3; PERRL, no facial palsy; no dysarthria; moves extremities. Results & Data Results & Data Vital Signs (Past 12 Hours) Vital Signs Temp Pulse Pulse Resp BP BP Pulse Ox 08/07/23 22:00 72 18 98 08/07/23 22:00 72 18 121/82 97 08/07/23 19:19 36.4 C L 108 H 18 160/103 H 98 O2 Del Method 08/07/23 22:00 Room Air 08/07/23 22:00 Room Air 08/07/23 19:19 Room Air Diagnostic Findings Laboratory Results WBC 8.06 K/ul (4.8-10.8) 08/07/23 20:44 RBC 4.54 M/uL (4.20-5.40) 08/07/23 20:44 Hgb 13.4 g/dl (12.0-16.0) 08/07/23 20:44 Hct 38.1 % (37.0-47.0) 08/07/23 20:44 MCV 83.9 fL (80.0-100.0) 08/07/23 20:44 MCH 29.5 pg (25.0-34.0) 08/07/23 20:44 MCHC 35.2 g/dL (32.0-36.0) 08/07/23 20:44 RDW Std Deviation 39.4 fL (36.4-46.3) 08/07/23 20:44 RDW Coeff of Angy 12.9 % (11.5-14.5) 08/07/23 20:44 Plt Count 271 K/uL (130-400) 08/07/23 20:44 MPV 10.2 fL (9.4-12.4) 08/07/23 20:44 Immature Gran % (Auto) 0.2 % 08/07/23 20:44 Neut % (Auto) 50.4 % 08/07/23 20:44 Lymph % (Auto) 42.9 % 08/07/23 20:44 [place] % (Auto) 6.1 % 08/07/23 20:44 Eos % (Auto) 0.2 % 08/07/23 20:44 Baso % (Auto) 0.2 % 08/07/23 20:44 Neut # (Auto) 4.05 K/uL (1.40-6.50) 08/07/23 20:44 Lymph # (Auto) 3.46 K/uL (1.20-3.40) H 08/07/23 20:44 [place] # (Auto) 0.49 K/uL (0.11-0.59) 08/07/23 20:44 Eos # (Auto) 0.02 K/uL (0.00-0.50) 08/07/23 20:44 Baso # (Auto) 0.02 K/uL (0.00-0.20) 08/07/23 20:44 Immature Gran # (Auto) 0.02 K/uL (0.01-0.20) 08/07/23 20:44 Sodium 141 mmol/L (136-145) 08/07/23 20:44 Potassium 3.5 mmol/L (3.5-5.1) 08/07/23 20:44 Chloride 107 mmol/L (98-107) 08/07/23 20:44 Carbon Dioxide 26 mmol/L (21-32) 08/07/23 20:44 Anion Gap 8 (3-11) 08/07/23 20:44 BUN 7 mg/dl (6-23) 08/07/23 20:44 Creatinine 0.64 mg/dl (0.6-1.2) 08/07/23 20:44 Est Cr Clr Drug Dosing 129.5 ml/min 08/07/23 20:44 Est GFR ( Amer) 147.8 ml/min 08/07/23 20:44 Est GFR (Non-Af Amer) 127.6 ml/min 08/07/23 20:44 BUN/Creatinine Ratio 10.9 (10-20) 08/07/23 20:44 Glucose 81 mg/dl (70-99(Fasting)) 08/07/23 20:44 Calcium 9.4 mg/dl (8.6-10.3) 08/07/23 20:44 Total Bilirubin 0.5 mg/dl (0.2-1.0) 08/07/23 20:44 AST 12 U/L (13-39) L 08/07/23 20:44 ALT 11 U/L (7-52) 08/07/23 20:44 Alkaline Phosphatase 80 U/L (34-104) 08/07/23 20:44 Total Protein 7.4 gm/dl (6.0-8.3) 08/07/23 20:44 Albumin 4.2 gm/dl (3.4-5.0) 08/07/23 20:44 Globulin 3.2 gm/dl (2.5-4.0) 08/07/23 20:44 Albumin/Globulin Ratio 1.3 (0.9-2) 08/07/23 20:44 Lipase 10 U/L (11-82) L 08/07/23 20:44 Urine Color Yellow 08/07/23 20:35 Urine Appearance Clear (Clear) 08/07/23 20:35 Urine pH 6.5 (4.5-7.5) 08/07/23 20:35 Ur Specific [place] > 1.045 (1.000-1.030) H 08/07/23 20:35 Urine Protein Negative (Negative) 08/07/23 20:35 Urine Glucose (UA) Negative (Negative) 08/07/23 20:35 Urine Ketones Negative (Negative) 08/07/23 20:35 Urine Blood Negative (Negative) 08/07/23 20:35 Urine Nitrite Negative (Negative) 08/07/23 20:35 Urine Bilirubin Negative (Negative) 08/07/23 20:35 Urine Urobilinogen Negative (Negative) 08/07/23 20:35 Ur Leukocyte Esterase Negative (Negative) 08/07/23 20:35 SARS-CoV-2, RNA, NAAT NEGATIVE (NEGATIVE) 08/07/23 20:35 Code Status & VTE Plan VTE Prophylaxis Plan VTE Prophylaxis will be ordered: Yes
[2023-08-08] MEDS ORDERED: PROMETHAZINE HCL 12.5 MG in SODIUM CHLORIDE 0.9% 50 ML IV PRN (01:39)
[2023-08-08] MEDS: HYDROmorphone INJ 0.5 MG/0.5 ML SYR IV PRN (02:00)
[2023-08-08] MEDS: D5W AND 1/2NSS 1,000 ML IV SCH (02:10)
[2023-08-08] MEDS ORDERED: HEPARIN 100 UNIT/ML 5ML FLUSH FLUSH PRN (03:11)
[2023-08-08 07:26] LABS: Basophils # (auto) 0.02 K/uL (0.00-0.20); Basophils % (auto) 0.4 %; Eosinophils % (auto) 1.9 %; Hematocrit (blood only) 34.9 % (37.0-47.0); Hemoglobin 11.9 g/dl (12.0-16.0); Immature Granulocytes # (auto) 0.01 K/uL (0.01-0.20); Immature Granulocytes % (auto) 0.2 %; Lymphocytes # (auto) 2.48 K/uL (1.20-3.40); Lymphocytes % (auto) 48.1 %; Mean Corpuscular Hemoglobin 29.2 pg (25.0-34.0); Mean Corpuscular Hgb Conc 34.1 g/dL (32.0-36.0); Mean Corpuscular Volume 85.7 fL (80.0-100.0); Mean Platelet Volume 10.1 fL (9.4-12.4); Monocytes % (auto) 7.8 %; Neutrophils # (auto) 2.15 K/uL (1.40-6.50); Neutrophils % (auto) 41.6 %; Platelet Count 226 K/uL (130-400); RDW Coefficient of Variation 12.9 % (11.5-14.5); RDW Standard Deviation 39.8 fL (36.4-46.3); Red Blood Count 4.07 M/uL (4.20-5.40); White Blood Count 5.16 K/ul (4.8-10.8)
[2023-08-08 07:34] LABS: Anion Gap 5 (3-11); BUN Creatinine Ratio 11.5 (10-20); Blood Urea Nitrogen 6 mg/dl (6-23); Calcium 8.2 mg/dl (8.6-10.3); Carbon Dioxide 27 mmol/L (21-32); Chloride 107 mmol/L (98-107); Creatinine Clr Calc Pharmacy 157.7 ml/min; Est GFR (African American) > 150.0 ml/min; Est GFR (Non-African American) 136.6 ml/min; Glucose 94 mg/dl (70-99(Fasting)); Magnesium 1.8 mg/dl (1.7-2.4); Potassium 3.4 mmol/L (3.5-5.1); Sodium 139 mmol/L (136-145)
[2023-08-08] MEDS ORDERED: FAMOTIDINE 200 MG/20 ML VIAL IV SCH (09:00)
[2023-08-08] MEDS: ONDANSETRON INJ 2 MG/ML 2 ML VIAL IV PRN (09:52)
[2023-08-08] MEDS: FAMOTIDINE 20 MG in SYRINGE 3 ML IV SCH (09:52)
--- NOTE | 2023-08-08 09:54 | Communication Note ---
Date of Service: August 08, 2023
--- NOTE | 2023-08-08 14:21 | Discharge Summary ---
Date of Service August 08, 2023 Admission HPI Per Admitting Provider 22-year-old female history of gastroparesis s/p J-tube, depression anxiety, PTSD, endometriosis, medical marijuana use,went to [facility] today because having abdominal pain for last few days and noticed the sutures that are holding the J-tube were dislodged. CAT scan done at [facility] showed possible dislodged J-tube. [facility] talked with her [facility] and plan was to discharge and follow-up with [facility] team. But patient states she was advised to come to this hospital by her [facility]. ER called [facility] and she was accepted in transfer. But there are no beds tonight. So we are called for admission. Complains of severe abdominal pain. No chest pain or shortness of breath. Has some nausea. No headache. No fevers. No earache or runny nose or sore throat. Normal bowel and bladder movements. Hemodynamically stable. 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 As mentioned above Past surgical history. Appendectomy. Colonoscopy and EGD. Laparoscopic hyst erectomy, diagnostic laparoscopy. J-tube placement. Social history. No smoking. Alcohol occasional. Family history. Father had GI problems. Mother has irritable bowel syndrome. Migraines. Maternal grandmother had hypertension. Admission Exam Per Admitting Provider General- Not in distress. Head- atraumatic Eyes- PERRL. ENT- oropharynx clear Neck- supple, no JVD. Lungs- clear to auscultation no wheezing or crackles Heart- regular rhythm; no murmur, no gallop. Abdomen- normal bowel sounds, soft,diffuse tender and guarding no distension. j tube seen. no erythema or drainage around j tube. Extremities- no pretibial edema, no erythema. Neuro- alert, oriented x 3; PERRL, no facial palsy; no dysarthria; moves ext remities. Principal Diagnosis Abdominal pain Dislodged J tube Discharge Exam Constitutional + well hydrated; no acute distress Eyes PERRL, conjunctivae normal, anicteric sclerae ENMT external ear and nose normal, oropharynx normal Respiratory normal respiratory effort, lungs clear to auscultation Cardiovascular Rate/Rhythm: regular rate and regular rhythm S1 S2 Gastrointestinal (Abdomen) Inspection/Auscultation: abdomen normal to inspection and normal bowel sounds; abdomen not distended Percussion/Palpation: + abdomen tender and abdomen soft; no guarding J tube in situ Musculoskeletal no cyanosis or clubbing, extremities motor strength 5/5 Neurologic PERRL, EOMI, accommodation nl, no face palsy, no dysarthria Psychiatric A+Ox3, euthymic affect Discharge Data Allergies Allergy/AdvReac Type Severity Reaction Status Date / Time metoclopramide [From Reglan] AdvReac Unknown Verified 08/07/23 22:24 ondansetron [From Zofran] AdvReac Flushing Verified 08/07/23 22:24 prochlorperazine AdvReac Agitated Verified 08/07/23 22:24 [From Compazine] Consultations 08/07/23 21:16 ED Decision to Admit Stat Hospital Course (1) Dislodged jejunostomy tube: 22-year-old female history of gastroparesis s/p J-tube, depression anxiety, PTSD, endometriosis, medical marijuana use,went to [facility] because having abdominal pain for last few days and noticed the sutures that are holding the J-tube were dislodged. CAT scan done at [facility] showed possible dislodged J-tube. [facility] talked with her [facility] and plan was to discharge and follow-up with [facility] [facility] team. But patient states she was advised to come to this hospital by her [facility] surgery. ER called [facility] and she was accepted in transfer. However there are no beds at the time, so patient was admitted here. Complains of severe abdominal pain. No chest pain or shortness of breath. Has some nausea. No headache. No fevers. No earache or runny nose or sore throat. Normal bowel and bladder movements. Hemodynamically stable. Possible dislodged jejunostomy tube Abdominal pain Patient was kept NPO and on IV fluid. Pain was controlled with meds Nausea controlled with prn antiemetics IV Once bed became available at [facility], patient was discharged to [facility] Total Time Total Time Spent Total Time Spent (In Minutes): 30 Total Time Includes: Examination of the Patient, Discharge Planning and Medication Reconciliation Discharge Plan Discharge Items Patient Disposition: Transfer Acute Care Hospital Reason For Visit: J TUBE REPLACEMENT Discharge Diagnosis: Dislodged J tube Activity: Resume your previous activity Non-emergency contact: Primary Care Provider Call non-emergency contact if: you have any medication questions and your symptoms worsen Follow-up/Referrals: Kinjal Renyoso, FABI [Primary Care Provider] - Diet: Other - See Diet Comment Addtl Attending Provider Instructions: Ms Peñaloza You came to the hospital complaining of abdominal pain and found to have dislodged J tube You are being transferred to [facility] for management Pending Studies at Discharge: No Stand-Alone Forms: My [facility] Skilled Items Patient informed of condition?: Yes DNR: No Discharge Level of Care: Other Communicable Disease: No Discharge Prognosis: Stable Lines: None Urinary Catheter: No Medications and DC Order Prescriptions: Continued acetaminophen [Children's Acetaminophen] 160 mg/5 mL suspension 0 mg feeding tube BID PRN (Reason: Pain) Rx Instructions: Dose 31.2 ml nutritional supplements Liquid 0 ea feeding tube DIRECTED Rx Instructions: 1,000 ml daily promethazine 25 mg tablet 25 mg feeding tube Q6 PRN (Reason: Nausea) lansoprazole 15 mg capsule,delayed release(DR/EC) 15 mg PO DAILY PRN (Reason: Acid Reflux) gabapentin 300 mg capsule 300 mg feeding tube TID PRN (Reason: Pain) polyethylene glycol 3350 [Miralax] 17 gram/dose Powder 17 g feeding tube DAILY PRN (Reason: Constipation) oxycodone 5 mg Tablet 5 mg feeding tube Q6H PRN (Reason: Pain) naloxone 4 mg/actuation spray,non-aerosol 1 spray INTRANASAL DIRECTED PRN (Reason: .Opiod od) Discharge Orders: Discharge Order (Routine); Ordered 08/08/23 Ordered By: Payton Tripp Admission Data Admit Date/Time: 08/08/23 00:16 Attending Provider: Payton Tripp I. Admit Provider: Moises Dorado Primary Care Provider: Kinjal Reynoso Other Providers: Moises Dorado Other Interventions: Discharge Summary Assessment (RN) Last Done: 08/08/23 14:49
== END 2023-08-08 16:26 | disposition short-term general hospital (02) | DRG 395 ==
LOC: ED 19:17 → 3N 08-08 00:16 → INTOOBSV 08-08 00:16 → 3N 08-08 01:13

== ENCOUNTER 2023-12-31 16:43 | Inpatient (IN) ==
--- NOTE | 2023-12-31 17:02 | Emergency Department Note ---
Impression & Plan Intractable abdominal pain, Rupture of cyst of right ovary ED Provider Note HISTORY OF PRESENT ILLNESS: Patient is a 23-year-old female presenting with right lower quadrant abdominal pain. Patient reports the pain started yesterday afternoon. Describes the pain as sharp and constant in nature. She reports a complex abdominal surgical history but reports she had an appendectomy. Denies any dysuria or hematuria. She has had a hysterectomy. Denies any vaginal bleeding or discharge. Denies any fevers. Reports 10 out of 10 abdominal pain. Reports associated nausea and a few episodes of vomiting. She has a J-tube in place for history of gastroparesis. ROS: as above PHYSICAL EXAM: Constitutional: Patient appears in no acute distress. Patient is tearful HENT: Head: Normocephalic and atraumatic. Eyes: EOMI, PERRL Mouth/Throat: Mucous membranes moist. Neck: Trachea midline. Neck supple. Cardiovascular: RRR, No murmurs, rubs or gallops. Intact distal pulses. Pulmonary/Chest: No respiratory distress. Breath sounds clear and equal bilaterally. No wheezes or rales. Abdominal: Abdomen soft, no rebound or guarding. RLQ TTP Musculoskeletal: No edema, tenderness or deformity noted. Skin: Warm and dry. No rash, erythema, pallor or cyanosis Psychiatric: Appropriate mood and affect for situation. Neurological: Alert and keenly responsive. CN II-XII grossly intact, moving all extremities equally and fully. MDM: - Vitals signs showed hypertension and tachycardia. - History obtained via patient. History as above. - Chronic conditions affecting care: Endometriosis; anxiety/depression; gastroparesis - Differential diagnoses include, but are not limited to: ovarian torsion; ovarian cyst; UTI; ureteral stone; colitis; diverticulitis - Order placed for continuous cardiac monitoring. At this time, monitor showed rate of 74 bpm with normal sinus rhythm, per my interpretation. - External medical records reviewed. Discharge summary dated 08/08/2023 was reviewed. Patient was admitted at that time for a dislodged J-tube. - EKG interpreted by myself showed normal sinus rhythm. Rate of 49 bpm. QT 402. No acute ischemic changes. - Laboratory workup interpreted by myself showed slight leukopenia (WBC 3.76); normal PT/INR; stable electrolytes; normal lipase; negative hCG - UA negative for infection - CT abdomen/pelvis negative for acute pathology. Notable for 3.2 cm dominant follicle in the right ovary and free fluid in the cul-de-sac which may represent a ruptured ovarian cyst - Patient given 2L NS in ER with improvement in her heart rate. Given 0.5 mg IV ativan, 1g IV tylenol and 20 mg IV pepcid for symptomatic management. However, on reassessment she is complaining of significant pain. Given 30 mg IV Toradol and 50 mcg of IV fentanyl. On reassessment, she is still complaining of pain. Given 0.5 mg of IV Dilaudid. On reassessment, the patient is still complaining of significant pain in her right lower quadrant. Will admit to hospitalist service for intractable abdominal pain. - Discussion was had with case advocate about patient's case and need for admission - Hospitalist, Dr. Manzanares, consulted for admission - Patient admitted to [facility] hospitalist service for further evaluation and management. ASSESSMENT AND PLAN: Diagnosis: Intractable abdominal pain; ruptured ovarian cyst Plan: Admit Past Med/Surg History Problem List (Updated 12/31/23 @ 22:04 by Gabriela Liz MD) Rupture of cyst of right ovary (Acute) Intractable abdominal pain (Acute) Abdominal pain (Acute) Dislodged jejunostomy tube (Acute) Adjustment disorder with mixed anxiety and depressed mood Nausea & vomiting Chronic female pelvic pain (Acute) Mood disorder (Acute) Endometriosis (Chronic) Chest pain (Acute) Internal hemorrhage (Acute) No known health problems (Chronic) Medical History Chronic abdominal pain Non-cardiac chest pain Internal hemorrhage Mood disorder Endometriosis Chest pain Surgical History H/O: hysterectomy Social History Smoking Status: Never smoker Tobacco Type: E-cigarettes / Vaping Second Hand Exposure: No; Do You Dip or Chew Tobacco: No; Hx Alcohol Use: No Hx Substance Use: Yes Last Used Substance: Days (ago) Last Used Substance Other:: last used "about a week ago" Substance Use Type Other:: Medical Marijuana - once a week. Preferred Language: Somali Communication Ability: Effective Master Pilot Required: No Beliefs That Will Affect Care: None Current Living Situation: Family Feels Safe at Home: Yes Assistive Devices: None Allergies Allergies Allergy/AdvReac Type Severity Reaction Status Date / Time metoclopramide [From Reglan] AdvReac Intermediate PSYCHO Verified 12/31/23 19:06 REACTIONS prochlorperazine AdvReac Intermediate Agitated Verified 12/31/23 19:06 [From Compazine] ondansetron [From Zofran] AdvReac Mild Flushing Verified 12/31/23 19:06 Home Meds Home Medications Medication Instructions Recorded Confirmed acetaminophen 160 mg/5 mL oral 0 mg feeding tube BID PRN Pain 08/07/23 12/31/23 suspension (Children's Acetaminophen) gabapentin 300 mg capsule 300 mg feeding tube TID PRN Pain 08/07/23 12/31/23 lansoprazole 15 mg capsule,delayed 15 mg PO DAILY PRN Acid Reflux 08/07/23 12/31/23 release naloxone 4 mg/actuation nasal spray 1 spray intranasal DIRECTED PRN 08/07/23 12/31/23 .Opiod od nutritional supplements 0 ea feeding tube DIRECTED 08/07/23 12/31/23 oxycodone 5 mg tablet 5 mg feeding tube Q6H PRN Pain 08/07/23 12/31/23 polyethylene glycol 3350 17 17 g feeding tube DAILY PRN 08/07/23 12/31/23 gram/dose oral powder (Miralax) Constipation promethazine 25 mg tablet 25 mg feeding tube Q6 PRN Nausea 08/07/23 12/31/23 Results & Data (ED) Vital Signs Vital Signs - 24 hr 12/31/23 16:46 12/31/23 18:50 12/31/23 18:50 Temperature 36.5 C Temperature Source Temporal Artery Scan Pulse Rate 133 H 66 Pulse Rate [Right Finger] 66 Respiratory Rate 20 14 12 Respiratory Effort / Characteristics Non-Labored Spontaneous Non-Labored Spontaneous Respiratory Depth Normal Normal Respiratory Pattern Regular Blood Pressure 156/110 H Blood Pressure [Right Arm] 145/94 H Blood Pressure Mean 125 Blood Pressure Mean [Right Arm] 111 Pulse Oximetry 98 100 99 Oxygen Delivery Method Room Air Room Air Room Air Sepsis Recent Fever Within 48 Hours No Sepsis New/Unexplained Change in Mental Status No Sepsis Action Taken by Nursing No Action Required 12/31/23 20:00 12/31/23 20:33 Temperature Temperature Source Pulse Rate 74 Pulse Rate [Right Finger] 64 Respiratory Rate 20 Respiratory Effort / Characteristics Respiratory Depth Respiratory Pattern Blood Pressure Blood Pressure [Right Arm] 145/94 H Blood Pressure Mean Blood Pressure Mean [Right Arm] 111 Pulse Oximetry 98 Oxygen Delivery Method Sepsis Recent Fever Within 48 Hours Sepsis New/Unexplained Change in Mental Status Sepsis Action Taken by Nursing Laboratory Data 12/31/23 17:14 12/31/23 17:14 Lab Results 12/31/23 12/31/23 Range/Units 17:14 20:25 WBC 3.76 L (4.8-10.8) K/ul RBC 4.60 (4.20-5.40) M/uL Hgb 14.3 (12.0-16.0) g/dl Hct 40.8 (37.0-47.0) % MCV 88.7 (80.0-100.0) fL MCH 31.1 (25.0-34.0) pg MCHC 35.0 (32.0-36.0) g/dL RDW Std Deviation 39.5 (36.4-46.3) fL RDW Coeff of Angy 12.2 (11.5-14.5) % Plt Count 232 (130-400) K/uL MPV 10.5 (9.4-12.4) fL Immature Gran % (Auto) 0.3 % Neut % (Auto) 45.4 % Lymph % (Auto) 43.6 % [place] % (Auto) 10.1 % Eos % (Auto) 0.3 % Baso % (Auto) 0.3 % Neut # (Auto) 1.71 (1.40-6.50) K/uL Lymph # (Auto) 1.64 (1.20-3.40) K/uL [place] # (Auto) 0.38 (0.11-0.59) K/uL Eos # (Auto) 0.01 (0.00-0.50) K/uL Baso # (Auto) 0.01 (0.00-0.20) K/uL Immature Gran # (Auto) 0.01 (0.01-0.20) K/uL PT 10.3 (9.0-12.0) Seconds INR 0.9 (0.9-1.1) Sodium 139 (136-145) mmol/L Potassium 3.5 (3.5-5.1) mmol/L Chloride 108 H (98-107) mmol/L Carbon Dioxide 24 (21-32) mmol/L Anion Gap 7 (3-11) BUN 8 (6-23) mg/dl Creatinine 0.70 (0.6-1.2) mg/dl Est Cr Clr Drug Dosing 117.6 ml/min Est GFR ( Amer) 142.5 ml/min Est GFR (Non-Af Amer) 123.0 ml/min BUN/Creatinine Ratio 11.4 (10-20) Glucose 103 H (70-99(Fasting)) mg/dl Lactate 1.0 (0.4-2.0) mmol/L Calcium 9.3 (8.6-10.3) mg/dl Magnesium 1.8 (1.7-2.4) mg/dl Total Bilirubin 0.2 (0.2-1.0) mg/dl AST 16 (13-39) U/L ALT 11 (7-52) U/L Alkaline Phosphatase 74 (34-104) U/L Total Protein 7.5 (6.0-8.3) gm/dl Albumin 4.4 (3.4-5.0) gm/dl Globulin 3.1 (2.5-4.0) gm/dl Albumin/Globulin Ratio 1.4 (0.9-2) Lipase 19 (11-82) U/L HCG, Qual Negative (Negative) Urine Color Yellow Urine Appearance Clear (Clear) Urine pH 7.0 (4.5-7.5) Ur Specific [place] 1.034 H (1.000-1.030) Urine Protein Negative (Negative) Urine Glucose (UA) Negative (Negative) Urine Ketones Negative (Negative) Urine Blood Negative (Negative) Urine Nitrite Negative (Negative) Urine Bilirubin Negative (Negative) Urine Urobilinogen Negative (Negative) Ur Leukocyte Esterase Negative (Negative) Administered Medications Ketorolac Tromethamine (Ketorolac Tromethamine 15 Mg/Ml Vial) 15 mg IV Q6H PRN PRN Reason: Pain Stop: 01/05/24 21:21 Last Admin: 12/31/23 21:47 Dose: 15 mg Documented By: DIEGO Discontinued Medications Fentanyl Citrate (Fentanyl Citrate Pf 100 Mcg/2 Ml Vial) 50 mcg IV NOW STA Stop: 12/31/23 19:09 Last Admin: 12/31/23 19:13 Dose: 50 mcg Documented By: SARAY Hydromorphone HCl (Hydromorphone Inj 0.5 Mg/0.5 Ml Syr) 0.5 mg IV NOW STA Stop: 12/31/23 19:54 Last Admin: 12/31/23 20:13 Dose: 0.5 mg Documented By: SARAY Sodium Chloride (Nss) 2,000 mls @ 999 mls/hr IV .Q2H1M ONE Stop: 12/31/23 18:50 Last Infusion: 12/31/23 21:08 Dose: Infused Documented By: Admin: 12/31/23 18:22 Dose: 999 mls/hr Documented By: DIEGO Famotidine (Pepcid 20mg Iv Push) 20 mg in 5 mls @ 2.5 mls/min IV NOW STA Stop: 12/31/23 18:13 Last Admin: 12/31/23 18:43 Dose: 2.5 mls/min Documented By: ODALYS Acetaminophen (Ofirmev) 1,000 mg in 100 mls @ 400 mls/hr IV NOW STA Stop: 12/31/23 18:41 Last Infusion: 12/31/23 19:06 Dose: Infused Documented By: Admin: 12/31/23 18:45 Dose: 400 mls/hr Documented By: ODALYS Ioversol (Optiray 320 100ml) 93 ml IV ONCE ONE Stop: 12/31/23 18:01 Last Admin: 12/31/23 18:00 Dose: 93 ml Documented By: ALEX Ketorolac Tromethamine (Ketorolac 30 Mg/Ml Vial) 30 mg IV NOW ONE Stop: 12/31/23 19:09 Last Admin: 12/31/23 19:13 Dose: 30 mg Documented By: SARAY Lorazepam (Lorazepam 1 Mg/1 Ml Syr Ed Inj Use) 0.5 mg IV ONE STA Stop: 12/31/23 18:12 Last Admin: 12/31/23 18:23 Dose: 0.5 mg Documented By: DIEGO Imaging Data Radiologist's Impression: Abdomen/Pelvis CT 12/31/23 16:51 CT SCAN OF THE ABDOMEN AND PELVIS WITH IV CONTRAST CLINICAL HISTORY: Right lower quadrant abdominal pain. COMPARISON STUDY: Abdominal CT dated 07/05/2022. TECHNIQUE: Following the IV administration of 93 cc of Optiray 320, CT scan of the abdomen and pelvis is performed from the lung bases to the proximal femora. Images are reviewed in the axial, sagittal, and coronal planes. IV contrast was administered without complication. A dose lowering technique was utilized adhering to the principles of ALARA. The patient was scanned twice due to significant motion artifact. CT DOSE: 1599.68 mGy.cm FINDINGS: Lung bases: The heart is normal in size and without pericardial effusion. The lung bases are clear. Liver: The contrast-enhanced liver is normal in size, contour, and attenuation. There is no intrahepatic biliary ductal dilatation. The hepatic veins and portal veins are patent. Gallbladder: Unremarkable. Spleen: Normal in size and attenuation. Pancreas: Unremarkable. Adrenal glands: Unremarkable. Kidneys: The contrast enhanced kidneys are normal in size and without hydronephrosis. The kidneys enhance and excrete symmetrically. Abdominal vasculature: The abdominal aorta is normal in course and caliber. Bowel: No bowel obstruction is seen. A percutaneous jejunostomy tube is in place. The appendix is surgically absent. Peritoneum: There is no intraperitoneal free air or abdominal ascites. A midline surgical scar is noted. There is a fat-containing umbilical hernia. A naval piercing is noted. Lymphadenopathy: None. Pelvic viscera: The bladder is normal as visualized. The uterus is surgically absent. There is a 3.2 cm dominant follicle in the right ovary seen on axial image #217. Additional follicles are seen in the left ovary. Free fluid is noted in the cul-de-sac. Skeletal structures: No lytic or blastic lesions are seen. IMPRESSION: 1. No acute infectious or inflammatory findings are identified in the abdomen or pelvis. 2. There is a 3.2 cm dominant follicle in the right ovary and free fluid in the cul-de-sac. This may represent a ruptured ovarian cyst. Correlate clinically. 3. Additional findings as above. ACT 112: Negative or not required by law. Electronically signed by: Long Donahue M.D. 12/31/2023 6:37 PM Discharge Plan Visit Data Chief Complaint: Abdominal Pain Stated Complaint: ABD PAIN ED Provider: Gabriela Liz Discharge Problem: Intractable abdominal pain, Rupture of cyst of right ovary Forms Stand Alone Forms: [employer] Prescriptions Prescriptions: No Action acetaminophen [Children's Acetaminophen] 160 mg/5 mL suspension 0 mg feeding tube BID PRN (Reason: Pain) Rx Instructions: Dose 31.2 ml nutritional supplements Liquid 0 ea feeding tube DIRECTED Rx Instructions: 1,000 ml daily promethazine 25 mg tablet 25 mg feeding tube Q6 PRN (Reason: Nausea) lansoprazole 15 mg capsule,delayed release(DR/EC) 15 mg PO DAILY PRN (Reason: Acid Reflux) gabapentin 300 mg capsule 300 mg feeding tube TID PRN (Reason: Pain) polyethylene glycol 3350 [Miralax] 17 gram/dose Powder 17 g feeding tube DAILY PRN (Reason: Constipation) oxycodone 5 mg Tablet 5 mg feeding tube Q6H PRN (Reason: Pain) naloxone 4 mg/actuation spray,non-aerosol 1 spray INTRANASAL DIRECTED PRN (Reason: .Opiod od) Referrals Referrals: Kinjal Reynoso PA-C [Primary Care Provider] -
[2023-12-31 17:32] LABS: Basophils # (auto) 0.01 K/uL (0.00-0.20); Basophils % (auto) 0.3 %; Eosinophils # (auto) 0.01 K/uL (0.00-0.50); Eosinophils % (auto) 0.3 %; Hematocrit (blood only) 40.8 % (37.0-47.0); Hemoglobin 14.3 g/dl (12.0-16.0); Immature Granulocytes # (auto) 0.01 K/uL (0.01-0.20); Immature Granulocytes % (auto) 0.3 %; Lymphocytes # (auto) 1.64 K/uL (1.20-3.40); Lymphocytes % (auto) 43.6 %; Mean Corpuscular Hemoglobin 31.1 pg (25.0-34.0); Mean Corpuscular Volume 88.7 fL (80.0-100.0); Mean Platelet Volume 10.5 fL (9.4-12.4); Monocytes # (auto) 0.38 K/uL (0.11-0.59); Monocytes % (auto) 10.1 %; Neutrophils # (auto) 1.71 K/uL (1.40-6.50); Neutrophils % (auto) 45.4 %; Platelet Count 232 K/uL (130-400); RDW Coefficient of Variation 12.2 % (11.5-14.5); RDW Standard Deviation 39.5 fL (36.4-46.3); White Blood Count 3.76 K/ul (4.8-10.8)
[2023-12-31 17:49] LABS: Albumin Globulin Ratio 1.4 (0.9-2); Albumin Level 4.4 gm/dl (3.4-5.0); BUN Creatinine Ratio 11.4 (10-20); Bilirubin,Total 0.2 mg/dl (0.2-1.0); Calcium 9.3 mg/dl (8.6-10.3); Creatinine Clr Calc Pharmacy 117.6 ml/min; Est GFR (African American) 142.5 ml/min; Globulin 3.1 gm/dl (2.5-4.0); Potassium 3.5 mmol/L (3.5-5.1); Pregnancy Test, Serum Negative (Negative); Total Protein 7.5 gm/dl (6.0-8.3)
[2023-12-31 17:55] LABS: INR 0.9 (0.9-1.1); Prothrombin Time 10.3 Seconds (9.0-12.0)
[2023-12-31] MEDS: OPTIRAY 320 100ml IV ONE (18:00)
[2023-12-31] MEDS: SODIUM CHLORIDE 0.9% 2,000 ML IV ONE (18:22)
[2023-12-31] MEDS: LORazepam 1 MG/1 ML SYR ED Inj Use IV STA (18:23)
--- NOTE | 2023-12-31 18:40 | CT Scan Report ---
CT SCAN OF THE ABDOMEN AND PELVIS WITH IV CONTRAST CLINICAL HISTORY: Right lower quadrant abdominal pain. COMPARISON STUDY: Abdominal CT dated 07/05/2022. TECHNIQUE: Following the IV administration of 93 cc of Optiray 320, CT scan of the abdomen and pelvi s is performed from the lung bases to the proximal femora. Images are reviewed in the axial, sagittal , and coronal planes. IV contrast was administered without complication. A dose lowering technique wa s utilized adhering to the principles of ALARA. The patient was scanned twice due to significant kayleigh on artifact. CT DOSE: 1599.68 mGy.cm FINDINGS: Lung bases: The heart is normal in size and without pericardial effusion. The lung bases are clear. Liver: The contrast-enhanced liver is normal in size, contour, and attenuation. There is no intrahepa tic biliary ductal dilatation. The hepatic veins and portal veins are patent. Gallbladder: Unremarkable. Spleen: Normal in size and attenuation. Pancreas: Unremarkable. Adrenal glands: Unremarkable. Kidneys: The contrast enhanced kidneys are normal in size and without hydronephrosis. The kidneys enh ance and excrete symmetrically. Abdominal vasculature: The abdominal aorta is normal in course and caliber. Bowel: No bowel obstruction is seen. A percutaneous jejunostomy tube is in place. The appendix is rodgers rgically absent. Peritoneum: There is no intraperitoneal free air or abdominal ascites. A midline surgical scar is not ed. There is a fat-containing umbilical hernia. A naval piercing is noted. Lymphadenopathy: None. Pelvic viscera: The bladder is normal as visualized. The uterus is surgically absent. There is a 3.2 cm dominant follicle in the right ovary seen on axial image #217. Additional follicles are seen in th e left ovary. Free fluid is noted in the cul-de-sac. Skeletal structures: No lytic or blastic lesions are seen. IMPRESSION: 1. No acute infectious or inflammatory findings are identified in the abdomen or pelvis. 2. There is a 3.2 cm dominant follicle in the right ovary and free fluid in the cul-de-sac. This may represent a ruptured ovarian cyst. Correlate clinically. 3. Additional findings as above. ACT 112: Negative or not required by law. Electronically signed by: Long Donahue M.D. 12/31/2023 6:37 PM
[2023-12-31] MEDS: FAMOTIDINE 20MG IV PUSH 20 MG/5 ML SYR IV STA (18:43)
[2023-12-31] MEDS: ACETAMINOPHEN 1,000 MG/100 ML VIAL IV STA (18:45)
[2023-12-31] MEDS: fentaNYL citrate PF 100 MCG/2 ML VIAL IV STA (19:13)
[2023-12-31] MEDS: KETOROLAC 30 MG/ML VIAL IV ONE (19:13)
[2023-12-31] MEDS: HYDROmorphone INJ 0.5 MG/0.5 ML SYR IV STA (20:13)
[2023-12-31 20:34] LABS: Appearance Urine Clear (Clear); Bilirubin Urine Negative (Negative); Blood Urine Negative (Negative); Color Urine Yellow; Glucose Urine UA Negative (Negative); Ketones Urine Negative (Negative); Leukocyte Esterase Urine Negative (Negative); Nitrite Urine Negative (Negative); Protein Urine Negative (Negative); Specific Gravity Urine 1.034 (1.000-1.030); Urobilinogen Urine Negative (Negative)
[2023-12-31] MEDS ORDERED: ACETAMINOPHEN 325 MG TAB PO PRN (21:22)
[2023-12-31] MEDS ORDERED: oxyCODONE HCL IR 5 MG TAB (IMMEDIATE RELEASE) PO PRN (21:22)
[2023-12-31] MEDS ORDERED: PROMETHAZINE HCL 12.5 MG in SODIUM CHLORIDE 0.9% 50 ML IV PRN (21:22)
--- NOTE | 2023-12-31 21:46 | History & Physical Report ---
Date of Service December 31, 2023 Assessment & Plan (1) Intractable abdominal pain: Plan: Secondary to ruptured ovarian cyst History of chronic abdominal pain Gastroparesis status post J-tube placement bronchial asthma, patient without pulmonary complaints anxiety/mood disorder, at baseline hx endometriosis ongoing vape use OBS F Analgesia Judicious narcotic use given history of gastroparesis DVT prophylaxis per Lovenox subcu Full code Text document was generated using [employer] voice recognition software. It may contain grammatical or spelling errors. Kindly contact undersigned for clarification of any documentation item in question. History of Present Illness Chief Complaint: Intractable right-sided abdominal pain Primary Care Provider: Kinjal Reynoso PA-C History obtained from patient and records. Medical history significant for history of VT, bronchial asthma, chronic abdominal pain, gastroparesis status post J tube placement, anxiety/mood disorder, endometriosis, ongoing vape use. Last [facility] confinement July 2023 for abdominal pain and dislodged J-tube. Patient discharged to [facility]. Multiple [facility] ER visits over the last few months. Patient experienced achy right lower quadrant pain yesterday. Some nausea and emesis. Usual BM. No hematuria or vaginal bleeding. No chest pain, no SOB, no headache, no nausea, no vomiting. Intractable discomfort at the ER. Medical History as above Surgical History : Appendectomy, vascular procedure, gastrostomy/cecostomy placement, hysterectomy Family History : Migraine, PUD, IBS, thyroid disease, endometriosis Personal/Social history : Ongoing vape use, occasional EtOH intake, disabled Allergies Allergy/AdvReac Type Severity Reaction Status Date / Time metoclopramide [From Reglan] AdvReac Intermediate PSYCHO Verified 12/31/23 19:06 REACTIONS prochlorperazine AdvReac Intermediate Agitated Verified 12/31/23 19:06 [From Compazine] ondansetron [From Zofran] AdvReac Mild Flushing Verified 12/31/23 19:06 Home Medications Medication Instructions Recorded Confirmed Type acetaminophen 160 mg/5 mL oral 0 mg feeding tube BID PRN Pain 08/07/23 12/31/23 History suspension (Children's Acetaminophen) gabapentin 300 mg capsule 300 mg feeding tube TID PRN Pain 08/07/23 12/31/23 History lansoprazole 15 mg capsule,delayed 15 mg PO DAILY PRN Acid Reflux 08/07/23 12/31/23 History release naloxone 4 mg/actuation nasal spray 1 spray intranasal DIRECTED PRN 08/07/23 12/31/23 History .Opiod od nutritional supplements 0 ea feeding tube DIRECTED 08/07/23 12/31/23 History oxycodone 5 mg tablet 5 mg feeding tube Q6H PRN Pain 08/07/23 12/31/23 History polyethylene glycol 3350 17 17 g feeding tube DAILY PRN 08/07/23 12/31/23 History gram/dose oral powder (Miralax) Constipation promethazine 25 mg tablet 25 mg feeding tube Q6 PRN Nausea 08/07/23 12/31/23 His tory Past Med/Surg History Problem List (Updated 12/31/23 @ 22:04 by Gabriela Liz MD) Rupture of cyst of right ovary (Acute) Intractable abdominal pain (Acute) Abdominal pain (Acute) Dislodged jejunostomy tube (Acute) Adjustment disorder with mixed anxiety and depressed mood Nausea & vomiting Chronic female pelvic pain (Acute) Mood disorder (Acute) Endometriosis (Chronic) Chest pain (Acute) Internal hemorrhage (Acute) No known health problems (Chronic) Medical History Chronic abdominal pain Non-cardiac chest pain Internal hemorrhage Mood disorder Endometriosis Chest pain Surgical History H/O: hysterectomy Social History Smoking Status: Never smoker Tobacco Type: E-cigarettes / Vaping Second Hand Exposure: No; Do You Dip or Chew Tobacco: No; Hx Alcohol Use: No Hx Substance Use: No Preferred Language: Dominican Communication Ability: Effective Respiratory Therapy Manager Required: No Beliefs That Will Affect Care: None Current Living Situation: Parent Current Living Situation Comment: Lives with mother. Other Information That Helps Us Care for You: No Feels Safe at Home: Yes Safety Concerns: Feels Safe At This Time Assistive Devices: None Review of Systems Review of Systems: As per HPI, all other systems reviewed and negative Physical Exam Physical Exam: GENERAL: uncomfortable, no respiratory distress SKIN: Normal color, warm HEENT: [place] palpebral conjunctivae, no ptosis, dry buccal mucosa NECK : Supple, no tenderness CHEST : CTA, no tenderness HEART : RRR, no obvious murmurs ABDOMEN: J-tube in place, some distention, right-sided abdominal tenderness EXTREMITIES : No LE swelling/tenderness, no other conspicuous deformities noted NEUROLOGIC : Coherent, no facial asymmetry, no other gross focality Results & Data Results & Data Vital Signs (Past 12 Hours) Vital Signs Temp Pulse Pulse Resp BP BP Pulse Ox 12/31/23 20:33 74 12/31/23 20:00 64 20 145/94 H 98 12/31/23 18:50 66 12 99 12/31/23 18:50 66 14 145/94 H 100 12/31/23 16:46 36.5 C 133 H 20 156/110 H 98 O2 Del Method 12/31/23 20:33 12/31/23 20:00 12/31/23 18:50 Room Air 12/31/23 18:50 Room Air 12/31/23 16:46 Room Air Laboratory Results Laboratory Results WBC 3.76 K/ul (4.8-10.8) L 12/31/23 17:14 RBC 4.60 M/uL (4.20-5.40) 12/31/23 17:14 Hgb 14.3 g/dl (12.0-16.0) 12/31/23 17:14 Hct 40.8 % (37.0-47.0) 12/31/23 17:14 MCV 88.7 fL (80.0-100.0) 12/31/23 17:14 MCH 31.1 pg (25.0-34.0) 12/31/23 17:14 MCHC 35.0 g/dL (32.0-36.0) 12/31/23 17:14 RDW Std Deviation 39.5 fL (36.4-46.3) 12/31/23 17:14 RDW Coeff of Angy 12.2 % (11.5-14.5) 12/31/23 17:14 Plt Count 232 K/uL (130-400) 12/31/23 17:14 MPV 10.5 fL (9.4-12.4) 12/31/23 17:14 Immature Gran % (Auto) 0.3 % 12/31/23 17:14 Neut % (Auto) 45.4 % 12/31/23 17:14 Lymph % (Auto) 43.6 % 12/31/23 17:14 [place] % (Auto) 10.1 % 12/31/23 17:14 Eos % (Auto) 0.3 % 12/31/23 17:14 Baso % (Auto) 0.3 % 12/31/23 17:14 Neut # (Auto) 1.71 K/uL (1.40-6.50) 12/31/23 17:14 Lymph # (Auto) 1.64 K/uL (1.20-3.40) 12/31/23 17:14 [place] # (Auto) 0.38 K/uL (0.11-0.59) 12/31/23 17:14 Eos # (Auto) 0.01 K/uL (0.00-0.50) 12/31/23 17:14 Baso # (Auto) 0.01 K/uL (0.00-0.20) 12/31/23 17:14 Immature Gran # (Auto) 0.01 K/uL (0.01-0.20) 12/31/23 17:14 PT 10.3 Seconds (9.0-12.0) 12/31/23 17:14 INR 0.9 (0.9-1.1) 12/31/23 17:14 Sodium 139 mmol/L (136-145) 12/31/23 17:14 Potassium 3.5 mmol/L (3.5-5.1) 12/31/23 17:14 Chloride 108 mmol/L (98-107) H 12/31/23 17:14 Carbon Dioxide 24 mmol/L (21-32) 12/31/23 17:14 Anion Gap 7 (3-11) 12/31/23 17:14 BUN 8 mg/dl (6-23) 12/31/23 17:14 Creatinine 0.70 mg/dl (0.6-1.2) 12/31/23 17:14 Est Cr Clr Drug Dosing 117.6 ml/min 12/31/23 17:14 Est GFR ( Amer) 142.5 ml/min 12/31/23 17:14 Est GFR (Non-Af Amer) 123.0 ml/min 12/31/23 17:14 BUN/Creatinine Ratio 11.4 (10-20) 12/31/23 17:14 Glucose 103 mg/dl (70-99(Fasting)) H 12/31/23 17:14 Lactate 1.0 mmol/L (0.4-2.0) 12/31/23 17:14 Calcium 9.3 mg/dl (8.6-10.3) 12/31/23 17:14 Total Bilirubin 0.2 mg/dl (0.2-1.0) 12/31/23 17:14 AST 16 U/L (13-39) 12/31/23 17:14 ALT 11 U/L (7-52) 12/31/23 17:14 Alkaline Phosphatase 74 U/L (34-104) 12/31/23 17:14 Total Protein 7.5 gm/dl (6.0-8.3) 12/31/23 17:14 Albumin 4.4 gm/dl (3.4-5.0) 12/31/23 17:14 Globulin 3.1 gm/dl (2.5-4.0) 12/31/23 17:14 Albumin/Globulin Ratio 1.4 (0.9-2) 12/31/23 17:14 Lipase 19 U/L (11-82) 12/31/23 17:14 HCG, Qual Negative (Negative) 12/31/23 17:14 Urine Color Yellow 12/31/23 20:25 Urine Appearance Clear (Clear) 12/31/23 20:25 Urine pH 7.0 (4.5-7.5) 12/31/23 20:25 Ur Specific Guy 1.034 (1.000-1.030) H 12/31/23 20:25 Urine Protein Negative (Negative) 12/31/23 20:25 Urine Glucose (UA) Negative (Negative) 12/31/23 20:25 Urine Ketones Negative (Negative) 12/31/23 20:25 Urine Blood Negative (Negative) 12/31/23 20:25 Urine Nitrite Negative (Negative) 12/31/23 20:25 Urine Bilirubin Negative (Negative) 12/31/23 20:25 Urine Urobilinogen Negative (Negative) 12/31/23 20:25 Ur Leukocyte Esterase Negative (Negative) 12/31/23 20:25 Impressions Abdomen/Pelvis CT 12/31/23 16:51 CT SCAN OF THE ABDOMEN AND PELVIS WITH IV CONTRAST CLINICAL HISTORY: Right lower quadrant abdominal pain. COMPARISON STUDY: Abdominal CT dated 07/05/2022. TECHNIQUE: Following the IV administration of 93 cc of Optiray 320, CT scan of the abdomen and pelvis is performed from the lung bases to the proximal femora. Images are reviewed in the axial, sagittal, and coronal planes. IV contrast was administered without complication. A dose lowering technique was utilized adhering to the principles of ALARA. The patient was scanned twice due to significant motion artifact. CT DOSE: 1599.68 mGy.cm FINDINGS: Lung bases: The heart is normal in size and without pericardial effusion. The lung bases are clear. Liver: The contrast-enhanced liver is normal in size, contour, and attenuation. There is no intrahepatic biliary ductal dilatation. The hepatic veins and portal veins are patent. Gallbladder: Unremarkable. Spleen: Normal in size and attenuation. Pancreas: Unremarkable. Adrenal glands: Unremarkable. Kidneys: The contrast enhanced kidneys are normal in size and without hydronephrosis. The kidneys enhance and excrete symmetrically. Abdominal vasculature: The abdominal aorta is normal in course and caliber. Bowel: No bowel obstruction is seen. A percutaneous jejunostomy tube is in place. The appendix is surgically absent. Peritoneum: There is no intraperitoneal free air or abdominal ascites. A midline surgical scar is noted. There is a fat-containing umbilical hernia. A naval piercing is noted. Lymphadenopathy: None. Pelvic viscera: The bladder is normal as visualized. The uterus is surgically absent. There is a 3.2 cm dominant follicle in the right ovary seen on axial image #217. Additional follicles are seen in the left ovary. Free fluid is noted in the cul-de-sac. Skeletal structures: No lytic or blastic lesions are seen. IMPRESSION: 1. No acute infectious or inflammatory findings are identified in the abdomen or pelvis. 2. There is a 3.2 cm dominant follicle in the right ovary and free fluid in the cul-de-sac. This may represent a ruptured ovarian cyst. Correlate clinically. 3. Additional findings as above. ACT 112: Negative or not required by law. Electronically signed by: Long Donahue M.D. 12/31/2023 6:37 PM
[2023-12-31] MEDS: KETOROLAC TROMETHAMINE 15 MG/ML VIAL IV PRN (21:47)
[2023-12-31] MEDS ORDERED: POLYETHYLENE (MIRALAX) 17 GM PACK PEG PRN (21:48)
[2023-12-31] MEDS ORDERED: LORazepam 0.25 MG in SYRINGE 0.125 ML IV PRN (21:51)
[2023-12-31 21:55] LABS: Magnesium 1.8 mg/dl (1.7-2.4)
[2023-12-31] MEDS ORDERED: LANSOPRAZOLE 15 MG SOLTAB PO PRN (21:55)
[2023-12-31] MEDS: NSS + 20MEQ KCL 20 MEQ/1,000 ML BAG IV ONE (23:27)
[2023-12-31] MEDS: MAGNESIUM SULFATE / D5W 1 GM/100 ML BAG IV ONE (23:31)
[2023-12-31] MEDS: GABAPENTIN 250 MG/5 ML 470 ML BTL PEG SCH (23:34)
[2023-12-31] MEDS: oxyCODONE HCL IR 5 MG TAB (IMMEDIATE RELEASE) PEG PRN (23:34)
[2024-01-01 02:26] LABS: Amphetamines+Metham, Urine Neg (Neg); Barbiturates, Urine Neg (Neg); Benzodiazepine, Urine Neg (Neg); Cocaine, Urine Neg (Neg); Fentanyl, Urine Pos (Neg); MDMA (Ecstacy), Urine Neg (Neg); Marijuana, Urine Pos (Neg); Methadone, Urine Neg (Neg); Opiate, Urine Pos (Neg); Phencyclidine, Urine Neg (Neg)
[2024-01-01 07:17] LABS: Hematocrit (blood only) 35.6 % (37.0-47.0); Hemoglobin 12.3 g/dl (12.0-16.0); Mean Corpuscular Hgb Conc 34.6 g/dL (32.0-36.0); Mean Corpuscular Volume 89.7 fL (80.0-100.0); Mean Platelet Volume 10.3 fL (9.4-12.4); Platelet Count 199 K/uL (130-400); RDW Coefficient of Variation 12.2 % (11.5-14.5); RDW Standard Deviation 39.8 fL (36.4-46.3); Red Blood Count 3.97 M/uL (4.20-5.40); White Blood Count 3.36 K/ul (4.8-10.8)
[2024-01-01 07:39] LABS: Basophils # (auto) 0.01 K/uL (0.00-0.20); Basophils % (auto) 0.3 %; Eosinophils # (auto) 0.06 K/uL (0.00-0.50); Eosinophils % (auto) 1.8 %; Immature Granulocytes # (auto) 0.01 K/uL (0.01-0.20); Immature Granulocytes % (auto) 0.3 %; Lymphocytes # (auto) 2.01 K/uL (1.20-3.40); Lymphocytes % (auto) 59.8 %; Monocytes # (auto) 0.35 K/uL (0.11-0.59); Monocytes % (auto) 10.4 %; Neutrophils # (auto) 0.92 K/uL (1.40-6.50); Neutrophils % (auto) 27.4 %
[2024-01-01 07:58] LABS: Anion Gap 6 (3-11); BUN Creatinine Ratio 14.8 (10-20); Blood Urea Nitrogen 8 mg/dl (6-23); Calcium 8.1 mg/dl (8.6-10.3); Carbon Dioxide 23 mmol/L (21-32); Chloride 111 mmol/L (98-107); Creatinine Clr Calc Pharmacy 152.4 ml/min; Est GFR (African American) > 150.0 ml/min; Est GFR (Non-African American) 133.9 ml/min; Glucose 86 mg/dl (70-99(Fasting)); Potassium 3.7 mmol/L (3.5-5.1); Sodium 140 mmol/L (136-145)
[2024-01-01] MEDS: ENOXAPARIN INJ 40 MG/0.4 ML SYR SQ SCH (08:54)
--- OUTSIDE RECORDS SUMMARY | 2024-01-01 09:09 | External Medical Summary | Summary of Care ---
Author Name Unknown Organization [facility] Address [address] [place] [address] Phone [phone] Care Team Providers Care [employer] Name Role Phone Kinjal Reynoso PA-C Primary Care Provider [phone] Reason for Referral * Ancillary Services (Within 10 days (routine)) - Pending Review Specialty Diagnoses / Procedures Referred By Carmen kirby Referred To Contact Interventional Radiology / Radiology Diagnoses Pain of jejunostomy tube site (HCC) Kinjal Reynoso PA-C [address] [phone] Referral ID Status Reason Start Date Expiration Date Visits Requested Visits Authorized [id number] Pending Review Ancillary Services Required 11/24/[phone] Question Answer Referral Priority Within 10 days (routine) Where should this appointment be scheduled? Nikhil Where Will The Procedure Be Performed? [facility] Comments Please enter the reason for consult: J-tube pain, falling out Are outside images available?: Yes - Images available in Epic Reason for Visit * Reason Comments Emergency Department Follow-Up Pt was se en at ER for R sided abdominal pain last evening Discuss getting J tube sutured into place Encounter Details Date Type Department Care Team (Late st Contact Info) Description 11/24/2023 11:40 AM EDT Office Visit [facility] Carol Aguilar [address] [phone] Kinjal Reynoso PA-C [address] [phone] Chronic pelvic pain in female*; Gastroparesis; Pain of jejunostomy tube site (HCC); Malfunction of jejunostomy tube (HCC) Allergies Active Allergy Reactions Criticality Noted Date Comments Diphenhydramine 2023 Hyperactive- restless legs - with IV benadryl Prochlorperazine Psych complications 09/26/2021 Gets very agitated Droperidol Other (Please comment) 07/19/2022 Feeling like ants are all over me Haloperidol Other (Please comment) 07/19/2022 Restless, "feels like ants are all over me" Hydroxyzine Other (Please comment) 06/27/2023 "restless legs" Ondansetron Flushing 08/07/2023 Metoclopramide Psych complications 10/02/2021 Gets very agitated Trimethobenzamide 02/02/2023 Bad reaction , patient doesn't remember the reaction documented as of this encounter (statuses as of 12/18/2023) Medications Medication Sig Dispensed Refills Start Date End Date Status Naloxone HCl 4 MG/0.1ML Nasal Liquid (Narcan Nasal)Indications:C hronic pelvic pain in female,MEDICATION USE AGREEMENT,Chronic abdominal pain ADMINISTER 1 SPRAY INTO 1 NOSTRIL FOR SUSPECTED OPIOID OVERDOSE - SEEK IMMEDIATE MEDICAL ATTENTION. [email or web address] 2 Each 3 03/31/2023 Active Polyethylene Glycol 3350 17 GM/SCOOP Oral Powder (MiraLax) Stir and dissolve 17 g (measuring line inisde of cap) in 4 to 8 ounces of any liquid and adminsiter into Gastric Tube in the morning and repeat same steps before bedtime. 238 g 1 05/24/2023 Active Promethazine HCl 25 MG Oral Tablet (Phenergan) Take 1 Tablet by mouth every 6 hours as needed for Nausea for up to 120 doses. 120 Tablet 08/15/2023 Active Ondansetron 4 MG Oral Tablet Disintegrating (Zofran) Place 1 Tablet on tongue every 8 hours as needed for Nausea. dissolve on tongue. 30 Tablet 2 09/13/2023 Active Peptamen 1.5 Donald Oral Liquid Administer 4 containers (1000mL) over 12 hours daily as directed, through J-tube via feeding pump. 76869 mL 10/05/2023 Active Peptamen AF Oral Liquid Administer 1,000 mL over 12 hours into J tube 4 times a day. 62993 mL 09/30/2023 09/25/19 Active Enteral Feeding Piston Syringe Use as directed. 30 Each 09/30/2023 Active Acetaminophen 160 MG/5ML Oral Suspension (Tylenol)Indication s:Chronic pelvic pain in female,Gastroparesi s,Malfunction of jejunostomy tube (HCC) Instill 31.2 mL into J tube every 8 hours as needed for Moderate Pain, 472 mL 5 11/24/2023 Active Gabapentin 100 MG Oral Capsule (Neurontin)Indicati ons:Chronic pelvic pain in female Take 1 Capsule by mouth in the morning and 1 Capsule at noon and 1 Capsule before bedtime. 11/24/2023 Active Acetaminophen 160 MG/5ML Oral Suspension (Tylenol)Indication s:Chronic pelvic pain in female,Gastroparesi s,Malfunction of jejunostomy tube (HCC) Administer 31.2 mL into J tube every 8 hours as needed for Pain, Moderate. 472 mL 5 07/26/2023 11/24/19 24 Discontinu ed(Refill) Gabapentin 300 MG Oral Capsule (Neurontin) Take 1 Capsule by mouth in the morning and 1 Capsule at noon and 1 Capsule before bedtime. 08/12/2023 11/24/19 24 Discontinu ed(Patient preference /discontin uation) oxyCODONE HCl 5 MG/5ML Oral Solution (Roxicodone)Indicat ions:Gastroparesis, Chronic pelvic pain in female,Malfunction of jejunostomy tube (HCC) Take 5 mL by mouth every 6 hours as needed for Pain, Severe. DO NOT TAKE MORE THAN 4 DOSES A DAY. Rx must last 28 days. Continuation of Care 560 mL 11/22/2023 12/16/19 24 Discontinu ed(Refill) documented as of this encounter (statuses as of 12/18/2023) Active Problems Problem Noted Date Diagnosed Date Port-A-Cath in place 10/27/2023 Malfunction of jejunostomy tube 07/07/2023 Gastroparesis 02/02/2023 Post concussive syndrome 10/23/2022 Adjustment disorder with mixed anxiety and depre ssed mood 10/23/2022 Chronic abdominal pain 10/23/2022 Nausea and vomiting 10/23/2022 Chronic female pelvic pain 09/24/2022 Illness [...] as of this encounter (statuses as of 12/18/2023) Resolved Problems Problem Noted Date Diagnosed Date Resolved Date Abdominal pain 02/02/2023 02/03/2023 Intractable vomiting 02/02/2023 023 Duodenitis 02/02/2023 02/03/2023 Ileus 02/02/2023 02/03/2023 Intractable nausea and vomiting 07/19/2022 08/12/2022 History of ventricular tachycardia 09/29/2021 10/02/2021 Overview: nonsustained 07/26/2021 Illness anxiety disorder 07/30/2021 Severe protein-energy malnutrition 07/25/2021 07/21/2022 Loss of weight 07/23/2021 10/02/2021 Mood disorder 06/06/2019 03/29/2020 Chest pain 08/01/2015 06/06/2019 Acute pharyngitis 04/16/2015 06/06/2019 Asthma, mild persistent 02/14/201405/21 documented as of this encounter (statuses as of 12/18/2023) Immunizations Name Administration Dates Next Due DTaP Dipth/Tet/Acell Pertussis (Infanrix), Peds 01/18/2007,07/03/2002,04/18/2002,11/07 HIB PRP-OMP, 3 dose (Pedvax) 07/03/2002,04/18/20 02,2001 Hepatitis A, Ped/Adol., 18 y ear and below, 2-Dose 02/28/2016,09/29/2006 Hepatitis B, 0-19 yrs 01/18/2007,07/03/2002,0506/2001 IPV [...] money to buy more. Never true 07/23/19 24 Within the past 12 months, t he food you bought just didn't last and you didn't have money to get more. Never true 07/23/2023 Childcare Answer Date Recorded Do you feel overwhelmed with taking care of a child, family member or friend? No 07/23/2023 Does your family need help f inding childcare? (Household - for ages 0-17 years) Not on file 07/23/2023 Clothing Answer Date Recorded Have you been unable to get clothing when it was really needed? No 07/23/2023 Is your family able to get c lothes or diapers when needed? (Household - for ages 0-17 years) Not on file 07/23/2023 Personal Safety Answer Date Recorded Do you feel unsafe or have concerns for your saf ety? No 08/08/2023 Do you have concerns for you r family's safety? (Household - for ages 0-17 years) Not on file 08/08/2023 Utilities Answer Date Recorded Do you have trouble paying y our heating, water, or electric bill? No 08/08/2023 Is your family able to pay t he heat, water, or electric bill? (Household - for ages 0-17 years) Not on file 08/08/2023 Does your family have access to good internet? (Household - for ages 0-17 years) Not on file 08/08/2023 Employment Status Answer Date Recorded Are you unemployed or without regular income? Ye s 07/23/2023 Does the household have a re gular source of income? (Household - for ages 0-17 years) Not on file 07/23/2023 Social Connections Answer Date Recorded How often do you feel lonely or isolated from th ose around you? Never 07/23/2023 Financial Resource Strain Answer Date R ecorded Do you have any trouble payi ng for your medications, or do you think you might in the future? No 07/23/2023 Does your family have troubl e paying for medicine? (Household - for ages 0-17 years) Not on file 07/23/2023 Transportation Needs Answer Date Record ed READ ONLY Do you have troubl e getting a ride to medical visits or work? Never True 08/08/2023 Does your family have a hard time getting a ride to doctors visits? (Household - for ages 0-17 years) Not on file 08/08/2023 Has lack of transportation k ept you from medical appointments, meetings, work, or from getting things needed for daily living? Check all that apply. (Adult - for ages 18 years and over) Not on file 08/08/2023 Do you (or your family) have trouble finding or paying for a ride (transportation)? (Household - for ages 0-17 years) Not on file 08/08/2023 Housing Stability Answer Date Recorded Do you currently live in a s helter or have no steady place to sleep at night? No 08/08/2023 READ ONLY Do you think you a re at risk of becoming homeless? No 08/08/2023 Does your family worry about paying for your home or becoming homeless? (Household - for ages 0-17 years) Not on file 0 08/08/2023 Are you homeless or worried that you might be in the future? (Adult - for ages 18 years and over) Not on file Are you (or your family) iwona eless or worried that you might be in the future? (Household - for ages 0-17 years) Not on file Food Insecurity Answer Date Recorded Do you need food for this week? No 08/08/2023 Are you able to get enough f ood for your family? (Household - for ages 0-17 years) Not on file 08/08/2023 Does your family need food t his week? (Household - for ages 0-17 years) Not on file 08/08/2023 Do you always have enough fo od for your family? (Household - for ages 0-17 years) Not on file 08/08/2023 Sex and Gender Information Value Date Recorded Sex Assigned at Female 08/14/2022 8:52 AM EST Gender Identity Female 08/14/2022 8:52 AM EST Sexual Orientation Lesbian 08/14/2022 8: 52 AM EST Job Start Date Occupation Industry Not on file Not on file Not on file documented as of this encounter Last Filed Vital Signs Vital Sign Reading Time Taken Comments Blood Pressure 118/62 11/24/2023 11:30 AM EDT Pulse 93 11/24/2023 11:30 AM EDT Temperature 36.7 C (98.1 F) 11/24/2023 11:30 AM E DT Respiratory Rate 18 11/24/2023 11:30 AM EDT Oxygen Saturation 99% 11/24/2023 11:30 AM EDT Inhaled Oxygen Concentration - - Weight 74.2 kg (163 lb 8 oz) 11/24/2023 11:30 AM EDT Height - - Body Mass Index 29.9 11/23/2023 7:36 PM EDT documented in this encounter Functional Status Functional Status Response Date of Assess ment Are you deaf or do you have serious difficulty h earing? No 2023 Are you blind or do you have serious difficulty seeing, even when wearing glasses? No 2023 Do you have serious difficul ty walking or climbing stairs? (5 years old or older) No 2023 Do you have difficulty dress ing or bathing? (5 years old or older) No 2023 Because of a physical, menta l, or emotional condition, do you have difficulty doing errands alone such as visiting a doctor s office or shopping? (15 years old or older) No 09/06/19 Cognitive Status Response Date of Assessm ent Because of a physical, menta l, or emotional condition, do you have serious difficulty concentrating, remembering, or making decisions? (5 years old or older) No 2023 documented as of this encounter Patient Instructions * Patient Instructions* Kinjal Reynoso PA-C - 11/24/2023 12:09 PM EDT Restart gabapentin. Start with 100mg at bedtime for 3 days, then increase to 100mg in the AM and 100mg at bedtime for 3 days, then increase to 100mg 3x daily. documented in this encounter Progress Notes * Kinjal Reynoso PA-C - 11/24/2023 11:44 AM EDT Images from the original note were not included. History of Present Illness Chief Complaint Patient presents with Emergency Department Follow-Up Pt was seen at ER for R sided abdominal pain last evening Discuss getting J tube sutured into place Patient for ED follow-up right side pain and problem with J-tube. Patient reports increased right-sided pain. She has pain around J-tube and right pelvic area. In ED she had a CT scan which showed hemorrhagic ovarian cyst on the right which was felt to be contributing significantly to her pain. Patient reports she is tolerating liquid oxycodone which she places in her J- tube fine. Stating it works about the same as the tablets, but much easier to administer in her J-tube. J-tube staying place. It is not falling out because it has a balloon, but pulling out to the point point where the disc is not up against her skin. She is wondering if a suture is needed to hold it in place verses other method it to hold it in place. Or even replacing to with a shorter tube or 1 without a disc. Current Medications: Acetaminophen 160 MG/5ML Oral Suspension (Tylenol) Gabapentin 100 MG Oral Capsule (Neurontin) Peptamen 1.5 Donald Oral Liquid Peptamen AF Oral Liquid oxyCODONE HCl 5 MG/5ML Oral Solution (Roxicodone) Enteral Feeding Piston Syringe Ondansetron 4 MG Oral Tablet Disintegrating (Zofran) Promethazine HCl 25 MG Oral Tablet (Phenergan) Polyethylene Glycol 3350 17 GM/SCOOP Oral Powder (MiraLax) Naloxone HCl 4 MG/0.1ML Nasal Liquid (Narcan Nasal) No current facility-administered medications for this visit. Physical Exam BP 118/62 | Pulse 93 | Temp 36.7 C (98.1 F) (Tympanic) | Resp 18 | Wt 74.2 kg (163 lb 8 oz) | LMP (LMP Unknown) | SpO2 99% | BMI 29.90 kg/m | BSA 1.8 m Physical Exam Vitals and nursing note reviewed. Constitutional: General: She is not in acute distress. Appearance: Normal appearance. She is not ill-appearing, toxic-appearing or diaphoretic. Cardiovascular: Rate and Rhythm: Normal rate. Pulmonary: Effort: Pulmonary effort is normal. Abdominal: Tenderness: There is generalized abdominal tenderness. Comments: RUQ with j-tube. Tenderness around J-tube. Musculoskeletal: Cervical back: Normal range of motion. Right lower leg: No edema. Left lower leg: No edema. Neurological: Mental Status: She is alert and oriented to person, place, and time. Psychiatric: Mood and Affect: Mood normal. I have reviewed the following results: Imaging results in the last 6 months US PELVIS TRANS-ABDOMINAL Result Date: 11/23/2023 IMPRESSION: 1. Hysterectomy. 2. 3.1 cm slightly complex cyst in the right ovary. Unremarkable left ovary. 3. No evidence of ovarian torsion. THIS DOCUMENT HAS BEEN ELECTRONICALLY SIGNED BY MEME JHAVERI MD CT ABD/PELVIS W IV CONTRAST - WO ORAL CONTRAST Result Date: 11/23/2023 IMPRESSION: No inflammation or collection around the jejunal feeding tube insertion site. Bowel appears unremarkable. Trace free fluid in the pelvis and 3.3 cm complex cystic finding in the right ovary suspicious for hemorrhagic cyst. THIS DOCUMENT HAS BEEN ELECTRONICALLY SIGNED BY MEME JHAVERI MD XR CHEST 1 VIEW Result Date: 11/04/2023 IMPRESSION: No acute chest findings. THIS DOCUMENT HAS BEEN ELECTRONICALLY SIGNED BY DELVIN QUIÑONEZ MD CT ABD/PELVIS W IV AND W ORAL CONTRAST Result Date: 08/16/2023 IMPRESSION: 1. Percutaneous jejunostomy tube is appropriately positioned. Contrast is seen within the bowel. 2. Minimal inflammation about the jejunum near the catheter insertion site, may be chronic. THIS DOCUMENT HAS BEEN ELECTRONICALLY SIGNED BY GT NELSON MD XR GI TUBE EVAL WITH CONTRAST INJECTION Result Date: 08/15/2023 IMPRESSION: No acute findings. THIS DOCUMENT HAS BEEN ELECTRONICALLY SIGNED BY YELENA ROMERO MD IR GASTROINTESTINAL OSTOMY Result Date: 08/13/2023 IMPRESSION: Successful gastrojejunostomy catheter check and exchange. PLAN: Flush tube with 20-30 mL of water before and after each feeding and each medication. Medications should be in liquid form if possible and if not available in liquid form they should be finely crushed, mixed in warm water and administered individually. Routine maintenance change by IR in 6 months. I have personally reviewed this examination and agree with the resident/fellow physician's interpretation. IR GASTROINTESTINAL OSTOMY Result Date: 08/11/2023 IMPRESSION: Jejunostomy catheter salvage in replacement. Due to patient discomfort a 12 Afghan MPD catheter was placed to keep tract open. The patient will return to interventional radiology under general anesthesia for replacement of an 18 Afghan jejunostomy tube. PLAN: Flush tube with 20-30 mL ofwater before and after each feeding and each medication. Medications should be in liquid form if possible and if not available in liquid form they should be finely crushed, mixed in warm water and administered individually. Routine maintenance change by IR in [address] ABD/PELVIS W IV CONTRAST - WO ORAL CONTRAST Result Date: 08/09/2023 IMPRESSION Jejunostomy terminates in the right upper quadrant. No findings to suggest malpositioning. CT ABD/PELVIS W IV AND W ORAL CONTRAST Addendum Date: 08/07/2023 THIS REPORT CONTAINS FINDINGS THAT MAY BE CRITICAL TO PATIENT CARE. The findings were verbally communicated via telephone conference at 2:01 PM EST on 08/07/2023 with NANCIE VALVERDE. The findings were acknowledged and understood. THIS DOCUMENT HAS BEEN ELECTRONICALLY SIGNED BY NANCY LAZO MD Result Date: 08/07/2023 IMPRESSION: 1. Jejunostomy tube tube tip appears to be at the margin of the abdominal wall and peritoneum. It is not clearly inside the jejunal lumen. Recommend clinical correlation. No contrast seeninside bowel loops. 2. Mild wall thickening of jejunal loops near the jejunostomy tube is nonspecific and may be chronic. Overall nonobstructive bowel gas pattern. 3. Ovarian cysts. THIS DOCUMENT HASBEEN ELECTRONICALLY SIGNED BY NANCY LAZO MD XR GI TUBE EVAL WITH CONTRAST INJECTION Result Date: 07/18/2023 IMPRESSION: Contrast material was infused through the patient's jejunostomy tube which is satisfactorily located within a mid abdominal small bowel loop. No extravasation of contrast material. THIS DOCUMENT HAS BEEN ELECTRONICALLY SIGNED BY JUAN JOSE VELASQUEZ MD CT ABD/PELVIS W IV CONTRAST - WO ORAL CONTRAST Result Date: 07/10/2023 IMPRESSION: Appropriately positioned jejunostomy tube and changes of prior hysterectomy. No acute pathology is identified. THIS DOCUMENT HAS BEEN ELECTRONICALLY SIGNED BY ANASTACIO KENNY MD IR INTERVENTIONAL RADIOLOGY PROCEDURE IN OR Result Date: 07/08/2023 IMPRESSION: Successful jejunostomy replacement. However, placement in antegrade versus retrograde direction could not be established.. PLAN: Flush tube with 20- 30 mL of water before and after each [...] antegrade direction and possibly redirect the jejunostomy.. XR GI TUBE EVAL WITH CONTRAST INJECTION [...] BEEN ELECTRONICALLY SIGNED BY NANCY LAZO MD BMP results Recent Labs Units 11/23/23202111/18/23 11511/04/232053 SODIUM - [facility] mmol/L 138 137 138 POTASSIUM - [facility] mmol/L 4.6 3.3* 4.4 CHLORIDE - [facility] mmol/L 104 106 107 CO2 - [facility] mmol/L 20* 20* 18* CREATININE - [facility] mg/dL 0.6 0.7 0.6 BUN - [facility] mg/dL 11 9 7 Lipid panel results Recent Labs Units 03/29/23 1206 CHOLESTEROL - [facility] mg/dL 232* LDL CHOLESTEROL (CALCULATED) - [facility] mg/dL 165* HDL CHOLESTEROL - [facility] mg/dL 51 TRIGLYCERIDES - [facility] mg/dL 82 CBC results Recent Labs Units 11/23/23211411/18/23 1158 11/04/23 205 WBC K/uL 5.34 6.32 5.59 HGB g/dL 12.6 14.0 15.3 HCT % 36.3 39.3 44.4 PLT K/uL 213 203 234 HbA1c results Recent Labs Units 03/02/23 0229 HEMOGLOBIN, [id number] LAB % 5.0 TSH results Recent Labs Units 10/25/23 1523 03/29/23 1206 03/23/23 0000 TSH - [facility] uIU/mL 0.45 0.76 -- TSH - OUTSIDE LAB UIU/ML -- -- 1.15 Vitamin D results Recent Labs Units 10/25/23 1523 03/29/23 1207 25-HYDROXY VITAMIN D - [facility] ng/mL 20 27 Hepatic panel results Recent Labs Units 11/23/23202111/18/23 1158 11/04/234 07/19/22 0504 03/09/22 1132 03/08/22 1559 02/25/22 1604 PROTEIN - [facility] g/dL 7.3 7.0 8.0 < > -- -- -- ALBUMIN, SERUM - OUTSIDE LAB G/DL -- -- -- -- 4.7 4.1 4.3 BILIRUBIN, TOTAL - [facility] mg/dL 0.2 0.3 0.3 < > -- -- -- ALKALINE PHOSPHATASE - [facility] U/L 84 87 85 < > -- -- -- AST - [facility] U/L 23 15 32 < > -- -- -- AST-OUTSIDE LAB U/L -- -- -- -- 23 21 27 ALT - [facility] U/L 10 9* 12 < > -- -- -- ALT-OUTSIDE LAB U/L -- -- -- -- 27 26 23 < > = values in this interval not displayed. Assessment and Plan Chronic pelvic pain in female Continue oxycodone. Advised pt to attempt to wean off of oxycodone. - Acetaminophen 160 MG/5ML Oral Suspension (Tylenol); Instill 31.2 mL into J tube every 8 hours as needed for Moderate Pain, Gastroparesis - Acetaminophen 160 MG/5ML Oral Suspension (Tylenol); Instill 31.2 mL into J tube every 8 hours as needed for Moderate Pain, Pain of jejunostomy tube site (HCC) - INTERVENTIONAL RADIOLOGY REFERRAL OP Malfunction of jejunostomy tube (HCC) - Acetaminophen 160 MG/5ML Oral Suspension (Tylenol); Instill 31.2 mL into J tube every 8 hours as needed for Moderate Pain, Wrap-Up Return for As scheduled. Time: I spent a total of 20-29 minutes (exact time 26 mins) on the date of service in [...] Care Team (Late st Contact Info) Description 12/24/2023 11:00 AM EDT Office Visit [facility] [place] [address] [phone] Kinjal Reynoso PA-C [address] [phone] Scheduled Referrals Name Type Priority Associated Diagnoses Orde r Schedule INTERVENTIONAL RADIOLOGY REFERRAL OP Referral Within 10 days (routine) Pain of jejunostomy tube site (HCC) Ordered: 11/24/2023 Health Maintenance Due Date Last Done Comments GARDASIL-HPV IMMUNIZATION SE KIM (1 - 3-dose series) 2016 COVID-19 Vaccine (2022-2 4 season) 2023 Influenza Vaccine (FLU shot) (Season Ended) 2024 Gonorrhea / Chlamydia Screen 05/02/202405/2023, 12/09/2022, 05/31/2022, [...] this encounter Medical Devices Implanted Type Area Claims Adjuster Device Identifier Shelf Expiration Date Model / Serial / Lot Port Implant W/8f Poly Cath - [id number] Implanted:Qty : 1 on 05/18/2023 by Juan Jose Connell DO at OR [facility] Right: Chest CR BARD : PERIPHERAL VASCULAR [id number] 11/18/2024 [id number] / / [id number] documented as of this encounter Visit Diagnoses Diagnosis Chronic pelvic pain in female- Primary Unspecified symptom associated with female genital organs Gastroparesis Pain of jejunostomy tube site (HCC) Other complication of colostomy or enterostomy Malfunction of jejunostomy tube (HCC) Mechanical complication of colostomy and enterostomy documented in this encounter Advance Directives * Full Code (Latest Code Status on File) Date Activated Date Inactivated Comments 2023 5:38 AM 09/07/2023 6:53 PM This order r eflects the patients wishes and were consensually agreed upon. Question Answer Comments Discussion of Advance Directives occurred with: Patient Does the patient have a Living Will? No Does the patient have Health Care Power of Attor eva? No * Full Code Date Activated Date Inactivated Comments 08/08/2023 8:32 PM 08/12/2023 8:10 PM This order r eflects the patients wishes and were consensually agreed upon. Question Answer Comments Discussion of Advance Directives occurred with: Patient * Full Code Date Activated Date Inactivated Comments 07/07/2023 3:02 AM 07/08/2023 9:20 PM This order r eflects the patients wishes and were consensually agreed upon. Question Answer Comments Discussion of Advance Directives occurred with: Patient * Full Code Date Activated Date Inactivated Comments 02/02/2023 10:02 AM 02/03/2023 3:24 PM This order reflects the patients wishes and were consensually agreed upon. Question Answer Comments Discussion of Advance Directives occurred with: Patient * Full Code Date Activated Date Inactivated Comments 07/19/2022 9:49 AM 08/12/2022 10:43 PM This order reflects the patients wishes and were consensually agreed upon. Question Answer Comments Discussion of Advance Directives occurred with: Patient Care Teams Forest[employer] Lab[employer] Relationship Specialty Start Date End Date Kinjal Reynoso PA-C [address] [phone] PCP - General Physician Mission Assessment Specialist 11/05/22 documented as of this encounter
--- OUTSIDE RECORDS SUMMARY | 2024-01-01 09:09 | External Medical Summary | Summary of Care ---
Author Name Unknown Organization [facility] Address [address] [place] [address] Phone [phone] Care Team Providers Care Sensitized Paper Tester Name Role Phone Kinjal Reynoso PA-C Primary Care Provider [phone] Reason for Referral * Medication Prior Authorization - Pending Review Specialty Diagnoses / Procedures Referred By Carmen kirby Referred To Contact Diagnoses Gastroparesis Chronic pelvic pain in female Malfunction of jejunostomy tube (HCC) [place] [address] Referral ID Status Reason Start Date Expiration Date V isits Requested Visits Authorized [id number] Pending Review 999 999 Reason for Visit * Reason Comments Medication Refill Encounter Details Date Type Department Care Team (Late st Contact Info) Description 12/27/2023 Refill [facility] [place] [address] Denisse Guzmán CRNP [facility] [address] Gastroparesis; Chronic pelvic pain in female; Malfunction of jejunostomy tube (HCC) Allergies Active [...] as of this encounter (statuses as of 12/28/2023) Medications Medication Sig Dispensed Refills Start Date End Date Status Naloxone HCl 4 MG/0.1ML Nasal Liquid (Narcan Nasal)Indications:C hronic pelvic pain in female,MEDICATION USE AGREEMENT,Chronic abdominal pain ADMINISTER 1 SPRAY INTO 1 NOSTRIL FOR SUSPECTED OPIOID OVERDOSE - SEEK IMMEDIATE MEDICAL ATTENTION. [email or web address] 2 Each 3 3 Active Polyethylene Glycol 3350 17 GM/SCOOP Oral Powder (MiraLax) Stir and dissolve 17 g (measuring line inisde of cap) in 4 to 8 ounces of any liquid and adminsiter into Gastric Tube in the morning and repeat same steps before bedtime. 238 g 1 3 Active Promethazine HCl 25 MG Oral Tablet (Phenergan) Take 1 Tablet by mouth every 6 hours as needed for Nausea for up to 120 doses. 120 Tablet 4 Active Ondansetron 4 MG Oral Tablet Disintegrating (Zofran) Place 1 Tablet on tongue every 8 hours as needed for Nausea. dissolve on tongue. 30 Tablet 2 4 Active Peptamen 1.5 Donald Oral Liquid Administer 4 containers (1000mL) over 12 hours daily as directed, through J-tube via feeding pump. 84383 mL 11 4 Active Peptamen AF Oral Liquid Administer 1,000 mL over 12 hours into J tube 4 times a day. 75653 mL 11 4 09/25/19 25 Active Enteral Feeding Piston Syringe Use as directed. 30 Each 11 4 Active Acetaminophen 160 MG/5ML Oral Suspension (Tylenol)Indication s:Chronic pelvic pain in female,Gastroparesi s,Malfunction of jejunostomy tube (HCC) Instill 31.2 mL into J tube every 8 hours as needed for Moderate Pain, 472 mL 5 4 Active Gabapentin 100 MG Oral Capsule (Neurontin)Indicati ons:Chronic pelvic pain in female Take 1 Capsule by mouth 2 times a day in the morning and at noon AND 2 Capsules every night at bedtime. 120 Capsule 5 4 Active oxyCODONE HCl 5 MG Oral Tablet (Oxy IR)Indications:Fransisco roparesis,Chronic pelvic pain in female,Malfunction of jejunostomy tube (HCC) Take 1 Tablet by mouth every 8 hours as needed for Pain, Severe. DO NOT TAKE MORE THAN 3 DOSES A DAY. Rx must last 14 days 42 Tablet 4 Active oxyCODONE HCl 5 MG/5ML Oral Solution (Roxicodone)Indicat ions:Gastroparesis, Chronic pelvic pain in female,Malfunction of jejunostomy tube (HCC) Take 5 mL by mouth every 6 hours as needed for Pain, Severe. DO NOT TAKE MORE THAN 4 DOSES A DAY. Rx must last 28 days. Continuation of Care 560 mL 4 12/27/19 24 Discontinu ed(Refill) documented as of this encounter (statuses as of 12/28/2023) Active Problems Problem Noted Date Diagnosed Date [...] as of this encounter (statuses as of 12/28/2023) Resolved Problems Problem Noted Date Diagnosed Date [...] as of this encounter (statuses as of 12/28/2023) Immunizations Name Administration Dates Next Due DTaP [...] No 2023 documented as of this encounter Miscellaneous Notes * Telephone Encounter - Chery Garcia, vault manager - 12/28/2023 12:54 PM EDT Patient calling in to check on the status of the prescription. Released the rx to the pharmacy. Chery Salamanca Binder Cover[employer] II [facility] [address] [place] [address] 12/28/2023 12:55 PM * Telephone Encounter - Luis M Menard MD - 12/28/2023 12:07 PM EDTSigned Prescriptions: Disp Refills oxyCODONE HCl 5 MG Oral Tablet (Oxy IR) 42 Tab*0 Sig: Take 1 Tablet by mouth every 8 hours as needed for Pain, Severe. DO NOT TAKE MORE THAN 3 DOSES A DAY. Rx must last 14 days Authorizing Provider: LUIS M MENARD * Telephone Encounter - Luis M Menard MD - 12/28/2023 12:07 PM EDTSigned Prescriptions: Disp Refills oxyCODONE HCl 5 MG Oral Tablet (Oxy IR) 42 Tab*0 Sig: Take 1 Tablet by mouth every 8 hours as needed for Pain, Severe. DO NOT TAKE MORE THAN 3 DOSES A DAY. Rx must last 14 days Authorizing Provider: LUIS M MENARD * Telephone Encounter - Zonia Tan [facility] - 12/28/2023 11:38 AM EDTPending Prescriptions: Disp Refills oxyCODONE HCl 5 MG Oral Tablet (Oxy IR) 0 Sig: Take 1 Tablet by mouth every 6 hours as needed for Pain, Severe. DO NOT TAKE MORE THAN 4 DOSES A DAY. Rx must last days * Telephone Encounter - Zonia Tan [facility] - 12/28/2023 11:34 AM EDT Patient calling requesting refill on Oxycodone Please see notes in 12/21 TE regarding spilled medication. Per 12/22/23 TE: I am agreeable to refill oxycodone with pills when needed with the objective to wean pt off over the next 2-3 months. Please approve updated pended order for tablets and decide on how many tablet you would like to supply. Thank You, Zonia Tan [facility] Clinical Pharmacist [facility] ([facility]) [phone] 12/28/2023, 11:37 AM * Telephone Encounter - Tequila Rodgers CPhT - 12/28/2023 11:09 AM EDT Pt is requesting high priority. Did you pend patient's preferred pharmacy and medication before forwarding?yes Pharmacy: [facility] Pending Prescriptions: Disp Refills oxyCODONE HCl 5 MG/5ML Oral Solution (Concha*560 mL 0 Sig: Take 5 mL by mouth every 6 hours as needed for Pain, Severe. DO NOT TAKE MORE THAN 4 DOSES A DAY. Rx must last 28 days. Continuation of Care Last Visit: 12/24/2023 (in office), 09/10/2022 (telemedicine) Next Visit: 03/25/2024 If no future appointments scheduled, and last appointment is greater than a year ago, please schedule patient for a follow-up appointment Last date the medication was ordered: 12/17/2023 Is this request for a controlled substance?Yes, What was the last refill date 12/17/2023 w/ [email or web address] and dosage 5 MG/ 5 ML and Urine Drug Screen was completed Urine Drug Screen: Results for orders placed or performed in visit on 12/24/23 PAIN MANAGEMENT DRUG PANEL, URINE W/ INTERPRETATION Result Value Compliance Interpretation Amphetamines Screen, U Negative Benzodiazepines Screen, U Negative Cannabinoids Screen, U Refer to confirmation results (A) Cocaine Metabolite Screen, U Negative Fentanyl Screen, U Negative Hydrocodone Screen, U Negative Methadone Metabolite Screen, U Negative Morphine/Codeine Screen, U Negative Oxycodone Screen, U Positive (A) Valid Interpretation Normal Creatinine, U 75 Narrative Cutoff Concentrations: Drug Level Amphetamines 500 [...] or performed during the hospital encounter of 09/06/23 TOXICOLOGY, URINE SCREEN W/ CONFIRMATION Result Value Amphetamines Screen, U Negative Benzodiazepines Screen, U Negative Cannabinoids Screen, U Positive (A) Cocaine Metabolite Screen, U Negative Fentanyl Screen, U Negative Hydrocodone Screen, U Negative Methadone Metabolite Screen, U Negative Morphine/Codeine Screen, U Positive (A) Oxycodone Screen, U Positive (A) Narrative Cutoff Concentrations: Drug Level Amphetamines 500 ng/mL Benzodiazepines 100 ng/mL Cannabinoids 50 ng/mL Cocaine Metabolite 150 ng/mL Fentanyl 1 ng/mL Hydrocodone / Hydromorphone 300 ng/mL Methadone Metabolite 100 ng/mL Morphine / Codeine 300 ng/mL Oxycodone / Oxymorphone 100 ng/mL Screening results are presumptive and can only be used for medical purposes. Positive screening results are reflexed to confirmatory testing. Results for orders placed or performed during [...] is available upon request. Patient Phone Numbers Labs: Lab Results Component Value Date/Time CREAT 0.49 (L) 11/30/2023 04:03 AM CREAT 0.8 06/10/2020 11:01 AM POTASSIUM 4.0 11/30/2023 04:03 AM POTASSIUM 3.5 06/10/2020 11:01 AM TSH 0.45 10/25/2023 03:23 PM TSH 1.15 03/23/2023 12:00 AM TSH 0.76 03/29/2020 02:40 PM LDLCALC 165 (H) 03/29/2023 12:06 PM LDLCALC 106 12/04/2016 11:50 AM ALT 10 11/23/2023 08:22 PM ALT 27 03/09/2022 11:32 AM ALT 10 06/10/2020 11:01 AM HGBA1C 5.0 03/02/2023 02:29 AM documented in this encounter Plan of Treatment Upcoming Encounters Date Type Department Care Team (Late st Contact Info) Description 03/25/2024 9:20 AM EDT Office Visit [facility] [address] [phone] Kinjal Reynoso PA-C [address] [address] Health Maintenance Due Date Last Done Comments HPV (Gardasil) Vaccine (1 - 3-dose series) 2016 COVID-19 Vaccine (2022-2 4 season) 2023 Influenza Vaccine (FLU shot) (#1) 2024 Gonorrhea / Chlamydia Screen 05/02/202405/2023, 12/09/2022, 05/31/2022, Additional history exists Depression Screening 07/23/2024 07/23/2023 DTaP,Tdap,and Td Vaccines (7 - Td or Tdap) 01/03/2031 01/03/2021, 02/28/2016, 01/18/2007, Additional history exists Pneumococcal Vaccine: Pediat rics (0 to 5 Years) and At-Risk Patients (6 to 64 Years) Completed 11/27/2002, 07/03/2002, 04/18/2002, Additional history exists Hepatitis B Vaccine Completed 01/18/2007, 07/03/2002, 2001 MENINGOCOCCAL (MENACTRA/MENVEO) Completed 02/22/2019, 02/28/2016, 02/28/2016 documented as of this encounter Medical Devices Implanted Type Area Insurance Account Specialist Device Identifier Shelf Expiration Date Model / Serial / Lot Port Implant W/8f Poly Cath - [id number] Implanted:Qty : 1 on 05/18/2023 by Juan Jose Connell, at OR [facility] Right: Chest CR BARD : PERIPHERAL VASCULAR [id number] 11/18/2024 [id number] / / [id number] documented as of this encounter Visit Diagnoses Diagnosis Gastroparesis Chronic pelvic pain in female Unspecified symptom associated with female genital organs Malfunction of jejunostomy tube (HCC) Mechanical complication [...] Advance Directives occurred with: Patient Care Teams Sensitized Paper Tester Relationship Specialty Start Date End Date Kinjal Reynoso PA-C [address] [address] PCP - General Physician Technical Clerk 11/05/22 documented as of this encounter
--- OUTSIDE RECORDS SUMMARY | 2024-01-01 09:09 | External Medical Summary | Summary of Care ---
Author Name Unknown Organization [facility] Address [address] [place] [address] Phone [phone] Care Team Providers Care Electric Range Assembler Name Role Phone Kinjal Reynoso PA-C Primary Care Provider [phone] Reason for Referral * Medication Prior Authorization - Pending Review Specialty Diagnoses / Procedures Referred By Carmen kirby Referred To Contact Diagnoses Gastroparesis Chronic pelvic pain in female Malfunction of jejunostomy tube (HCC) [place] [address] Referral ID Status Reason Start Date Expiration Date V isits Requested Visits Authorized [id number] Pending Review 999 999 Reason for Visit * Reason Comments Medication Refill Encounter Details Date Type Department Care Team (Late st Contact Info) Description 12/27/[address] [facility] ([place] [place] [place] [address] Denisse Guzmán CRNP [facility] [place] [address] Gastroparesis; Chronic pelvic pain in [...] OPIOID OVERDOSE - SEEK IMMEDIATE MEDICAL ATTENTION. [email or web address] 2 Each 3 3 Active Polyethylene Glycol [...] as directed, through J-tube via feeding pump. 39571 mL 11 4 Active Peptamen AF Oral Liquid Administer 1,000 mL over 12 hours into J tube 4 times a day. 93692 mL 11 4 09/25/19 25 Active Enteral [...] MENARD * Telephone Encounter - Zonia Tan [facility] - 12/28/2023 11:38 AM EDTPending Prescriptions: Disp Refills oxyCODONE HCl 5 MG Oral Tablet (Oxy IR) 0 Sig: Take 1 Tablet by mouth every 6 hours as needed for Pain, Severe. DO NOT TAKE MORE THAN 4 DOSES A DAY. Rx must last days * Telephone Encounter - Zonia Tan [facility] - 12/28/2023 11:34 AM EDT Patient calling [...] like to supply. Thank You, Zonia Tan [facility] Clinical Pharmacist [facility] ([facility]) [phone] 12/28/2023, 11:37 AM * [facility] - 12/28/2023 11:09 AM EDT Pt is requesting high priority. Did you pend patient's preferred pharmacy and medication before forwarding?yes Pharmacy: [facility] Pending Prescriptions: Disp Refills oxyCODONE HCl [...] was the last refill date 12/17/2023 w/ and dosage 5 MG/ 5 ML and [...] available upon request. Patient Phone Numbers mobile [phone] Labs: Lab Results Component Value Date/Time CREAT [...] Description 03/25/2024 9:20 AM EDT Office Visit [facility] ([place], [place]) [address] [address] Kinjal Reynoso PA-C [address] [address] Health Maintenance Due Date Last Done Comments HPV (Gardasil) Vaccine (1 - 3-dose series) 2016 COVID-19 Vaccine ( - 2022-2 4 season) 2023 Influenza Vaccine (FLU shot) [...] this encounter Medical Devices Implanted Type Area Wire Tester Device Identifier Shelf Expiration Date Model / Serial / Lot Port Implant W/8f Poly Cath - [id number] Implanted:Qty : 1 on 05/18/2023 by Juan Jose Connell, at OR [facility] Right: Chest CR BARD : PERIPHERAL VASCULAR [id number] 11/18/2024 [id number] / / [id number] documented as of this encounter Visit Diagnoses [...] Advance Directives occurred with: Patient Care Teams Electric Range Assembler Relationship Specialty Start Date End Date Kinjal Reynoso PA-C [address] [address] PCP - General Physician Anatomic Pathology Manager 11/05/22 documented as of this encounter
--- OUTSIDE RECORDS SUMMARY | 2024-01-01 09:09 | External Medical Summary ---
Author Name Unknown Address Unknown Organization [id number]:LABORATORY [facility] - [address] [facility] [address] Laboratory Report Ordering Provider Test Date Status ALBA BUTLER 12/24/2023 12:06:43 Final Drugs that require complianc e testing:

Opioids:
Oxycodone: Quantity 5mg Date/Time of last Dose 6:30AM

Benzodiazepines
None

Cutoff Concentrations:
Drug Level
Amphetamines 500 ng/mL
Benzodiazepines 100 ng/mL
Cannabinoids 50 ng/mL
Cocaine Metabolite 150 ng/mL
Fentanyl 1 ng/mL
Hydrocodone / Hydromorphone 300 ng/mL
Methadone Metabolite 100 ng/mL
Morphine / Codeine 300 ng/mL
Oxycodone / Oxymorphone 100 ng/mL

Screening results are presumptive and can only be used for medical purposes. Confirmatory testing is available upon request. Observation Date Value Abnormality Reference (Units) Status COMPLIANCE INTERPRETATION 12/24/2023 12:06:43 Based on the medication information provided: Final COMPLIANCE INTERPRETATION 12/24/2023 12:06:43 The presence of THC metabolite is INCONSISTENT with the information provided. Final COMPLIANCE INTERPRETATION 12/24/2023 12:06:43 The positive oxycodone screening result is CONSISTENT with oxycodone use. Confirmatory testing is available upon request. Final Changed Report: Previously r eported on 12/25/2023 at 1032 EDT. See Results History in EPIC for previous versions of the report. Amphetamines, Urine screen 12/24/2023 12:06:43 Negative Negative Final Benzodiazepines, Urine screen 12/24/2023 12:06:43 Negative Negative Final Cannabinoids, Urine screen 12/24/2023 12:06:43 Refer to confirmation results Abnormal Negative Final Cocaine Metabolite, Urine screen 12/24/2023 12:06:43 Negative Negative Final fentaNYL [Presence] in Urine by Screen method 12/24/2023 12:06:43 Negative Negative Final HYDROcodone [Presence] in Urine by Screen method 12/24/2023 12:06:43 Negative Negative Final 5-Lnacuvpxqu-0,5-Dimeth yl-3,3-Diphenylpyrrolid ine (EDDP) [Presence] in Urine 12/24/2023 12:06:43 Negative Negative Final Opiates, Urine screen 12/24/2023 12:06:43 Negative Negative Final oxyCODONE [Presence] in Urine by Screen method 12/24/2023 12:06:43 Positive Abnormal Negative Final FORENSIC VALID INTERPRETATION 12/24/2023 12:06:43 Normal Final Creatinine, Urine 12/24/2023 12:06:43 75 (mg/dL) Final Performing Location LABORATORY [facility] - [address] [facility] [address]
--- OUTSIDE RECORDS SUMMARY | 2024-01-01 09:09 | External Medical Summary ---
Author Name Unknown Address Unknown Organization [id number]:LABORATORY [place] [address] [place] [address] Laboratory Report Ordering Provider Test Date Status ALBA BUTLER 12/24/2023 12:06:43 Final Drugs that require complianc e testing:

Opioids:
Oxycodone: Quantity 5mg Date/Time of last Dose 6:30AM

Benzodiazepines
None

Cutoff Concentration:
Drug Level
THC-COOH 10 ng/mL

This test was developed and its performance characteristics determined by [employer]. It has not been cleared or approved by the [place] Food and Drug Administration.
null Observation Date Value Abnormality Reference (Units ) Status METHODOLOGY 12/24/2023 12:06:43 LC-MS/MS Final Cannabinoids, Urine confirmatory 12/24/2023 12:06:43 218 Above high normal Negative (ng/mL) Final Performing Location LABORATORY [facility] - [facility] [place] [address]
--- OUTSIDE RECORDS SUMMARY | 2024-01-01 09:09 | External Medical Summary | Summary of Care ---
Author Name Unknown Organization [facility] Address [address] [place] [address] Phone [phone] Care Team Providers Care Departmental Buyer Name Role Phone Kinjal Reynoso PA-C Primary Care Provider [phone] Reason for Visit * Reason Comments Follow Up 3 month . PT states she has issues with her medicine she would like to address today. Patient has been verbally educated on the need or importance of Immunizations: guardasil and has declined topic(s). Encounter Details Date Type Department Care Team (Late st Contact Info) Description 12/24/2023 11:00 AM EDT Office Visit [facility] [address] [address] Kinjal Reynoso PA-C [facility] [place] [address] Chronic pelvic pain in female*; Chronic, continuous use of opioids Allergies Active Allergy Reactions Criticality Noted Date [...] as of this encounter (statuses as of 12/29/2023) Medications Medication Sig Dispensed Refills Start Date End Date Status Naloxone HCl 4 MG/0.1ML Nasal Liquid (Narcan Nasal)Indications:C hronic pelvic pain in female,MEDICATION USE AGREEMENT,Chronic abdominal pain ADMINISTER 1 SPRAY INTO 1 NOSTRIL FOR SUSPECTED OPIOID OVERDOSE - SEEK IMMEDIATE MEDICAL ATTENTION. [email or web address] 2 Each 3 3 Active Polyethylene Glycol [...] as directed, through J-tube via feeding pump. 74631 mL 11 4 Active Peptamen AF Oral Liquid Administer 1,000 mL over 12 hours into J tube 4 times a day. 86395 mL 11 4 09/25/19 25 Active Enteral [...] at bedtime. 120 Capsule 5 4 Active Gabapentin 100 MG Oral Capsule (Neurontin)Indicati ons:Chronic pelvic pain in female Take 1 Capsule by mouth in the morning and 1 Capsule at noon and 1 Capsule before bedtime. 4 12/24/19 24 Discontinu ed(Refill) oxyCODONE HCl 5 MG/5ML Oral Solution (Roxicodone)Indicat ions:Gastroparesis, Chronic pelvic pain in female,Malfunction of jejunostomy tube (HCC) Take 5 mL by mouth every 6 hours as needed for Pain, Severe. DO NOT TAKE MORE THAN 4 DOSES A DAY. Rx must last 28 days. Continuation of Care 560 mL 4 12/27/19 24 Discontinu ed(Refill) documented as of this encounter (statuses as of 12/29/2023) Active Problems Problem Noted Date Diagnosed Date [...] as of this encounter (statuses as of 12/29/2023) Resolved Problems Problem Noted Date Diagnosed Date [...] as of this encounter (statuses as of 12/29/2023) Immunizations Name Administration Dates Next Due DTaP Dipth/Tet/Acell Pertussis (Infanrix), Peds 01/18/2007,07/03/2002,04/18/2002,11/07 HIB PRP-OMP, 3 dose (Pedvax) 07/03/2002,04/18/20 02,2001 Hepatitis A, Ped/Adol., 18 y ear and below, 2-Dose 02/28/2016,09/29/2006 Hepatitis B, 0-19 yrs 01/18/2007,07/03/2002,05/0 06/2001 [...] Sign Reading Time Taken Comments Blood Pressure 136/80 12/24/2023 11:40 AM EDT Pulse 117 12/24/2023 10:53 AM EDT Temperature 36.4 C (97.5 F) 12/24/2023 1 0:53 AM EDT Respiratory Rate 15 12/24/2023 10:5 3 AM EDT Oxygen Saturation 99% 12/24/2023 10: 53 AM EDT Inhaled Oxygen Concentration - - Weight 72.9 kg (160 lb 11.2 oz) 024 10:53 AM EDT Height - - Body Mass Index 29.39 11/27/2023 7:28 AM EDT documented in this encounter Functional Status [...] * Patient Instructions* Kinjal Reynoso PA-C - 12/24/2023 11:36 AM EDT BioGia probiotic to speed gastric emptying. Yovani aids digestion. Recommend yovani tea. Reduce oxycodone to 5mg every 8 hours. documented in this encounter Progress Notes * Kinjal Reynoso PA-C - 12/24/2023 11:08 AM EDT Images from the original note were not included. History of Present Illness Chief Complaint Patient presents with Follow Up 3 month . PT states she has issues with her medicine she would like to address today. Patient has been verbally educated on the need or importance of Immunizations: guardasil and has declined topic(s). Pt presents for 3 month follow up. J-tube currently functioning well. She had to have it replaced in November because it had become dislodged. She is now following with IR in [place] every 3 months. Pt states that 2 days ago, her oxycodone spilled. She is not sure how this happened. She states it was a full bottle and there is about a little less than half a bottle left. She would like to go back to pills because of fears of spilling again. Pain was fairly well managed with oxycodone and gabapentin. She is agreeable to increasing gabapentin. Current Medications: Gabapentin 100 MG Oral Capsule (Neurontin) Acetaminophen 160 MG/5ML Oral Suspension (Tylenol) Peptamen 1.5 Donald Oral Liquid Peptamen AF Oral Liquid Ondansetron 4 MG Oral Tablet Disintegrating (Zofran) Promethazine HCl 25 MG Oral Tablet (Phenergan) Polyethylene Glycol 3350 17 GM/SCOOP Oral Powder (MiraLax) Naloxone HCl 4 MG/0.1ML Nasal Liquid (Narcan Nasal) oxyCODONE HCl 5 MG Oral Tablet (Oxy IR) Enteral Feeding Piston Syringe Physical Exam BP 136/80 | Pulse 117 | Temp 36.4 C (97.5 F) (Tympanic) | Resp 15 | Wt 72.9 kg (160 lb 11.2 oz)| LMP (LMP Unknown) | SpO2 99% | BMI 29.39 kg/m | BSA 1.79 m Physical Exam Vitals and nursing note reviewed. Constitutional: General: She is not in acute distress. Appearance: Normal appearance. She is not ill-appearing, toxic-appearing or diaphoretic. Cardiovascular: Rate and Rhythm: Normal rate and regular rhythm. Heart sounds: Normal heart sounds. Pulmonary: Effort: Pulmonary effort is normal. Breath sounds: Normal breath sounds. Musculoskeletal: Cervical back: Normal range of motion. Right lower leg: No edema. Left lower leg: No edema. Neurological: Mental Status: She is alert and oriented to person, place, and time. Psychiatric: Mood and Affect: Mood normal. Assessment and Plan Chronic pelvic pain in female - PAIN MANAGEMENT DRUG PANEL, URINE W/ INTERPRETATION; Future - Gabapentin 100 MG Oral Capsule (Neurontin); Take 1 Capsule by mouth 2 times a day in the morning and at noon AND 2 Capsules every night at bedtime. - PAIN MANAGEMENT DRUG PANEL, URINE W/ INTERPRETATION - THC METABOLITE, URINE CONFIRMATION Chronic, continuous use of opioids - PAIN MANAGEMENT DRUG PANEL, URINE W/ INTERPRETATION; Future - PAIN MANAGEMENT DRUG PANEL, URINE W/ INTERPRETATION - THC METABOLITE, URINE CONFIRMATION She has a little less than half bottle left which will last only about 2 weeks. She would like to go back to tablets only because of her concerns over subsequent accidental spills. She has cut dose down to TID the past 2 days to preserve what she has left knowing that this spill may affect refills and how rx is prescribed. She is doing okay with this so far. Pain is a little worse, but tolerable. She understands that given her history of opioid use and misuse and being dismissed from other pharmacies and being rejected from pain clinics in the past may result in her being forced to wean off now after this reported spill which may be perceived as misuse. She understands that pharmacy has right to not refill oxycodone if they have concerns of misuse and abuse. She is ready to start to wean now as a goal for hers has been to get off of opioids. She states that it is probably better to start now anyway rather than later. I am agreeable to refill oxycodone with pills when needed with the objective to wean pt off over the next 2-3 months. Pt has been agreeable to try gabapentin again and has been on 100mg TID for the past 3 weeks. She is agreeable to titrate up on gabapentin to optimize non-opioid pain control. She will try Tylenol for breakthrough pain as well. I am forwarding this to Dr. Leonard and pharmacy. Urine drug screen collected today. Asking that pharmacy continue to refill oxycodone and provide one early refill when requested when pt is out of remaining liquid with goal to wean completely off over the next 2-3 months. Wrap-Up Return in about 3 months (around 03/25/2024) for Follow up. Time: I spent a total of 20-29 minutes (exact time 22 mins) on the date of service in [...] documented in this encounter Miscellaneous Notes * Result Encounter Note - Ace Leonard MD - 12/28/2023 10:36 AM EDT Stopping marijuana is strongly encouraged to prevent nausea and increased complications from pain medicatnoi documented in this encounter Plan of Treatment Upcoming Encounters Date Type Department Care Team (Late st Contact Info) Description 03/25/2024 9:20 AM EDT Office Visit [facility] [address] [phone] Kinjal Reynoso PA-C [address] [address] Health Maintenance Due Date Last Done Comments [...] this encounter Medical Devices Implanted Type Area Blood Bank Attendant Device Identifier Shelf Expiration Date Model / Serial / Lot Port Implant W/8f Poly Cath - [id number] Implanted:Qty : 1 on 05/18/2023 by Juan Jose Connell, at [facility] Right: Chest CR BARD : PERIPHERAL VASCULAR [id number] 11/18/2024 [id number] / / [id number] documented as of this encounter Procedures Procedure Name Priority Date/Time Associated Diagnosis Comments PAIN MANAGEMENT DRUG PANEL, URINE W/ INTERPRETATION Routine 12/24/2023 12:06 PM EDT Chronic pelvic pain in female Chronic, continuous use of opioids THC METABOLITE, URINE CONFIRMATION Routine 12/24/2023 12:06 PM EDT Chronic pelvic pain in female Chronic, continuous use of opioids documented in this encounter Results * (ABNORMAL) THC METABOLITE, URINE CONFIRMATION (12/24/2023 12:06 PM EDT) Methodology LC-MS/MS 12/28/2023 10:34 AM EDT [facility] THC-COOH Confirmation, U 218(H) Negative ng/mL 12/28/2023 10:34 AM EDT [facility] Urine Urine specimen obtained by clean catch procedure / Unknown Non-blood Collection / Unknown 12/24/2023 12:06 PM EDT 12/24/2023 12:06 PM EDT Narrative [facility] - 12/28/2023 10:34 AM EDT Cutoff Concentration: Drug Level THC-COOH 10 ng/mL This test was developed and its performance characteristics determined by [employer] [facility]. It has not been cleared or approved by the [place] Food and Drug Administration. Kinjal Lorenza Reynoso PA-C LAB URINE ORDERABLE S [facility] [address] [place] [address] * (ABNORMAL) PAIN MANAGEMENT DRUG PANEL, URINE W/ INTERPRETATION (12/24/2023 12:06 PM EDT) Compliance Interpretation Based on the medication information provided: The presence of THC metabolite is INCONSISTENT with the information provided. The positive oxycodone screening result is CONSISTENT with oxycodone use. Confirmatory testing is available upon request. 12/28/2023 4:00 PM EDT [facility] Comment:Changed Report: Prev iously reported on 12/25/2023 at 1032 EDT. See Results History in EPIC for previous versions of the report. Amphetamines Screen, U Negative Negative 12/28/2023 4:00 PM EDT LABORATORY C Benzodiazepines Screen, U Negative Negative 12/28/2023 4:00 PM EDT LABORATORY C Cannabinoids Screen, U Refer to confirmation results(A) Negative 12/28/2023 4:00 PM EDT LABORATORY C Cocaine Metabolite Screen, U Negative Negative 12/28/2023 4:00 PM EDT LABORATORY C Fentanyl Screen, U Negative Negative 2023 4:00 PM EDT LABORATORY C Hydrocodone Screen, U Negative Negative 12/28/2023 4:00 PM EDT [facility] Methadone Metabolite Screen, U Negative Negative 12/28/2023 4:00 PM EDT LABORATORY C Morphine/Codeine Screen, U Negative Negative 12/28/2023 4:00 PM EDT LABORATORY C Oxycodone Screen, U Positive(A) Negative 12/28/2023 4:00 PM EDT [facility] Valid Interpretation Normal 12/28/2023 4:00 PM EDT [facility] Creatinine, U 75 mg/dL 12/28/2023 4:00 PM EDT [facility] Urine Urine specimen obtained by clean catch procedure / Unknown Non-blood Collection / Unknown 12/24/2023 12:06 PM EDT 12/24/2023 12:06 PM EDT Narrative [facility] - 12/28/2023 4:00 PM EDT Cutoff Concentrations: Drug Level Amphetamines 500 ng/mL Benzodiazepines 100 ng/mL Cannabinoids 50 ng/mL Cocaine Metabolite 150 ng/mL Fentanyl 1 ng/mL Hydrocodone / Hydromorphone 300 ng/mL Methadone Metabolite 100 ng/mL Morphine / Codeine 300 ng/mL Oxycodone / Oxymorphone 100 ng/mL Screening results are presumptive and can only be used for medical purposes. Confirmatory testing is available upon request. Kinjal Reynoso PA-C LAB URINE ORDERABLE S [facility] [address] [place], [place] [phone] documented in this encounter Visit Diagnoses Diagnosis Chronic pelvic pain in female- Primary Unspecified symptom associated with female genital organs Chronic, continuous use of opioids Opioid type dependence, continuous documented in this encounter Advance Directives * [...] Advance Directives occurred with: Patient Care Teams Departmental Buyer Relationship Specialty Start Date End Date Kinjal Reynoso PA-C [address] [phone] PCP - General Physician Market Development Executive 11/05/22 documented as of this encounter
--- OUTSIDE RECORDS SUMMARY | 2024-01-01 09:09 | External Medical Summary | Summary of Care ---
Author Name Unknown Organization [facility] Address [address] [place] [address] Phone [phone] Care Team Providers Care Security Trainer Name Role Phone Kinjal Reynoso PA-C Primary Care Provider [phone] Reason for Visit * Reason Onset Date Comments Med Request 12/22/2023 Encounter Details Date Type Department Care Team (Late st Contact Info) Description 12/22/2023 Telephone [facility] [address] [place] [address] Kinjal Reynoso PA-C [address] [place] [address] Med Request Allergies Active Allergy Reactions [...] as of this encounter (statuses as of 12/24/2023) Medications Medication Sig Dispensed Refills Start Date End Date Status Naloxone HCl 4 MG/0.1ML Nasal Liquid (Narcan Nasal)Indications:Ch ronic pelvic pain in female,MEDICATION USE AGREEMENT,Chronic abdominal pain ADMINISTER 1 SPRAY INTO 1 NOSTRIL FOR SUSPECTED OPIOID OVERDOSE - SEEK IMMEDIATE MEDICAL ATTENTION. [email or web address] 2 Each 3 03/31/2023 Active Polyethylene Glycol [...] as directed, through J-tube via feeding pump. 81249 mL 11 10/05/2023 Active Peptamen AF Oral Liquid Administer 1,000 mL over 12 hours into J tube 4 times a day. 98768 mL 09/30/2023 Active Enteral Feeding Piston Syringe Use as directed. 30 Each 11 09/30/2023 Active Acetaminophen 160 MG/5ML Oral Suspension (Tylenol)Indications :Chronic pelvic pain in female,Gastroparesis ,Malfunction of jejunostomy tube (HCC) Instill 31.2 mL into J tube every 8 hours as needed for Moderate Pain, 472 mL 5 11/24/2023 Active oxyCODONE HCl 5 MG/5ML Oral Solution (Roxicodone)Indicati ons:Gastroparesis,Ch ronic pelvic pain in female,Malfunction of jejunostomy tube (HCC) Take 5 mL by mouth every 6 hours as needed for Pain, Severe. DO NOT TAKE MORE THAN 4 DOSES A DAY. Rx must last 28 days. Continuation of Care 560 mL 12/17/2023 Active documented as of this encounter (statuses as of 12/24/2023) Active Problems Problem Noted Date Diagnosed Date [...] as of this encounter (statuses as of 12/24/2023) Resolved Problems Problem Noted Date Diagnosed Date [...] as of this encounter (statuses as of 12/24/2023) Immunizations Name Administration Dates Next Due DTaP Dipth/Tet/Acell Pertussis (Infanrix), Peds 01/18/2007,07/03/2002,04/18/2002,11/07 HIB PRP-OMP, 3 dose (Pedvax) 07/03/2002,04/18/20 02,2001 Hepatitis A, Ped/Adol., 18 y ear and below, 2-Dose 02/28/2016,09/29/2006 Hepatitis B, 0-19 yrs 01/18/2007,07/03/2002,06/2001 IPV [...] (15 years old or older) No 09/06/19 24 Cognitive Status Response Date of Assessm ent Because of a physical, menta l, or emotional condition, do you have serious difficulty concentrating, remembering, or making decisions? (5 years old or older) No 2023 documented as of this encounter Miscellaneous Notes * Telephone Encounter - Ace Leonard MD - 12/24/2023 2:35 PM EDT Reviewed, great care. Agree with plan. * Telephone Encounter - Kinjal Reynoso PA-C - 12/24/2023 1:51 PM EDT Discussed with pt today at appt. She has a little less than half [...] completely off over the next 2-3 months. * Telephone Encounter - Avril Barreto LPN - 12/22/2023 8:45 AM EDT Please araseli * Telephone Encounter - Bryanna Swan PHARM Tech - 12/22/2023 8:40 AM EDT Pt called stating she spilt her oxycodone solution last night. Pt said she just got it filled a fewdays ago so now she isnt sure what to do. Pt wasn't sure if dr could refill rx or if she would haveto go without it. Thanks, Bryanna Swan Card Cleaner [facility] 12/22/2023,8:42 AM documented in this encounter Plan of Treatment Upcoming Encounters Date Type Department Care Team (Late st Contact Info) Description 03/25/2024 9:20 AM EDT [facility] [address] [address] Kinjal Reynoso PA-C [address] [address] Health Maintenance Due Date Last Done Comments [...] this encounter Medical Devices Implanted Type Area Emission Technician Device Identifier Shelf Expiration Date Model / Serial / Lot Port Implant W/8f Poly Cath - [id number] Implanted:Qty : 1 on 05/18/2023 by Juan Jose Connell, at [facility] Right: Chest CR BARD : PERIPHERAL VASCULAR [id number] 11/18/2024 [id number] / / [id number] documented as of this encounter Advance Directives * Full Code [...] Advance Directives occurred with: Patient Care Teams Security Trainer Relationship Specialty Start Date End Date Kinjal Reynoso PA-C [address] [phone] PCP - General Physician Waste Water Worker 11/05/22 documented as of this encounter
--- OUTSIDE RECORDS SUMMARY | 2024-01-01 09:10 | External Medical Summary | Summary of Care ---
Author Name Unknown Organization [facility] Address [address] [place] [address] Phone [phone] Care Team Providers Care Title Searcher Name Role Phone Kinjal Reynoso PA-C Primary Care Provider [phone] Reason for Visit * Reason Onset Date Comments Advice 11/27/2023 Encounter Details Date Type Department Care Team (Late st Contact Info) Description 11/27/2023 Telephone [facility] [address] [facility] [address] [place] [address] Kinjal Reynoso PA-C [address] [facility] [address] [place] [address] Advice Allergies Active Allergy Reactions Criticality [...] as of this encounter (statuses as of 11/27/2023) Medications Medication Sig Dispensed Refills Start Date End Date Status Naloxone HCl 4 MG/0.1ML Nasal Liquid (Narcan Nasal)Indications:Ch ronic pelvic pain in female,MEDICATION USE AGREEMENT,Chronic abdominal pain ADMINISTER 1 SPRAY INTO 1 NOSTRIL FOR SUSPECTED OPIOID OVERDOSE - SEEK IMMEDIATE MEDICAL ATTENTION. [email or web address] 2 Each 3 03/31/2023 Active Polyethylene Glycol [...] as directed, through J-tube via feeding pump. 99601 mL 11 10/05/2023 Active Peptamen AF Oral Liquid Administer 1,000 mL over 12 hours into J tube 4 times a day. 60641 mL 09/30/2023 Active Enteral Feeding Piston Syringe Use as directed. 30 Each 09/30/2023 Active oxyCODONE HCl 5 MG/5ML Oral Solution (Roxicodone)Indicati ons:Gastroparesis,Ch ronic pelvic pain in female,Malfunction of jejunostomy tube (HCC) Take 5 mL by mouth every 6 hours as needed for Pain, Severe. DO NOT TAKE MORE THAN 4 DOSES A DAY. Rx must last 28 days. Continuation of Care 560 mL 11/22/2023 Active Acetaminophen 160 MG/5ML Oral Suspension (Tylenol)Indications :Chronic pelvic pain in female,Gastroparesis ,Malfunction of jejunostomy tube (HCC) Instill 31.2 mL into J tube every 8 hours as needed for Moderate Pain, 472 mL 5 11/24/2023 Active Gabapentin 100 MG Oral Capsule (Neurontin)Indicatio ns:Chronic pelvic pain in female Take 1 Capsule by mouth in the morning and 1 Capsule at noon and 1 Capsule before bedtime. 11/24/2023 Active documented as of this encounter (statuses as of 11/27/2023) Active Problems Problem Noted Date Diagnosed Date [...] as of this encounter (statuses as of 11/27/2023) Resolved Problems Problem Noted Date Diagnosed Date [...] as of this encounter (statuses as of 11/27/2023) Immunizations Name Administration Dates Next Due DTaP [...] encounter Miscellaneous Notes * Telephone Encounter - Jitendra Gutiérrez MD - 11/27/2023 3:22 PM EDT Patient needs to go back to the ER * Telephone Encounter - Estee Vega LPN - 11/27/2023 2:10 PM EDT I spoke to patient and she states she was seen in the ER today because this morning she accidentally pulled on her J- tube and thought it was displaced. States the ER did an x-ray and x-ray states the J-tube is in satisfactory position. She states the J-tube is leaking and she is having pain and is afraid to do her feedings because itis leaking and she is getting a headache because of not doing her feedings. The ER note states she is to return if symptoms are worsening or not improving. Please advise if patient should go back to the ER * Telephone Encounter - Anita Camacho OSA - 11/27/2023 1:59 PM EDT Pt calling in about J tube, has an appointment with IR on Wednesday to get it fixed. This morning tube was yanked out, went to the Er dr was not helpful. states "seems like its in the right place". Medication is leaking out of the hole. Transferred to nurse line. documented in this encounter Plan of Treatment Upcoming Encounters Date Type Department Care Team (Late st Contact Info) Description 11/29/2023 1:30 PM EDT Office [address] [phone] Vicki Roberts PA-C [address] [place] [address] [place] [address] 11/30/2023 8:00 AM EDT Office Visit Interventional Radiology, [address] [place] [address] Luis Finn [facility] [address] [facility] [place] [address] 12/17/2023 1:30 PM EDT Nurse Only Hematology/Oncology Treatment, [address] [address] [facility], [address] Hem Onc [address] [address] 12/24/2023 11:00 AM EDT Office Visit Family Jeff, Carol [address] [phone] Kinjal Reynoso PA-C [address] [address] Health Maintenance Due Date Last Done Comments [...] encounter Medical Devices Implanted Type Area Print Cutter Device Identifier Shelf Expiration Date Model / Serial / Lot Port Implant W/8f Poly Cath - [id number] Implanted:Qty : 1 on 05/18/2023 by Juan Jose Connell, at OR [facility] Right: Chest CR BARD : PERIPHERAL VASCULAR [id number] 11/18/2024 [id number] / / [id number] documented as of this encounter Advance Directives [...] Advance Directives occurred with: Patient Care Teams Title Searcher Relationship Specialty Start Date End Date Kinjal Reynoso PA-C [address] [phone] PCP - General Physician Creative Resource Manager 11/05/22 documented as of this encounter
--- OUTSIDE RECORDS SUMMARY | 2024-01-01 09:10 | External Medical Summary | Summary of Care ---
Author Name Unknown Organization [facility] Address [address] [place] [address] Phone [phone] Care Team Providers Care Gas Leak Tester Name Role Phone Kinjal Reynoso PA-C Primary Care Provider [phone] Reason for Visit * Reason Onset Date Comments Advice 11/27/2023 Encounter Details Date Type Department Care Team (Late st Contact Info) Description 11/27/2023 Telephone [facility] 21 [facility] [place] [address] Kinjal Reynoso PA-C 21 [facility] [place] [address] Advice Allergies Active [...] as of this encounter (statuses as of 11/29/2023) Medications Medication Sig Dispensed Refills Start Date End Date Status Naloxone HCl 4 MG/0.1ML Nasal Liquid (Narcan Nasal)Indications:Ch ronic pelvic pain in female,MEDICATION USE AGREEMENT,Chronic abdominal pain ADMINISTER 1 SPRAY INTO 1 NOSTRIL FOR SUSPECTED OPIOID OVERDOSE - SEEK IMMEDIATE MEDICAL ATTENTION. [email or web address]=/[email or web address] 2 Each 3 03/31/2023 Active Polyethylene Glycol [...] as directed, through J-tube via feeding pump. 01666 mL 11 10/05/2023 Active Peptamen AF Oral Liquid Administer 1,000 mL over 12 hours into J tube 4 times a day. 87488 mL 09/30/2023 Active Enteral Feeding Piston Syringe [...] as of this encounter (statuses as of 11/29/2023) Active Problems Problem Noted Date Diagnosed Date [...] as of this encounter (statuses as of 11/29/2023) Resolved Problems Problem Noted Date Diagnosed Date [...] as of this encounter (statuses as of 11/29/2023) Immunizations Name Administration Dates Next Due DTaP [...] encounter Miscellaneous Notes * Telephone Encounter - Estee Vega LPN - 11/29/2023 9:40 AM EDT Patient has an appt with GI today 11/29/23. * Telephone Encounter - Jitendra Gutiérrez MD [...] to the Er dr was not helpful. Dr states "seems like its in the right place". Medication is leaking out of the hole. Transferred to nurse line. documented in this encounter Plan of Treatment Upcoming Encounters Date Type Department Care Team (Late st Contact Info) Description 11/29/2023 1:30 PM EDT Office Visit Gastroenterology, [facility] [place] [address] [address] Vicki Roberts PA-C [address] [place] [address] [place] [address] 11/30/2023 8:00 AM EDT Office Visit Interventional Radiology, [address] [place] [address] Luis Finn MD 400 [facility] [place] [phone] 12/17/2023 1:30 PM EDT Nurse Only Hematology/Oncology Treatment, [facility] 400 [place] [address] [facility], Chair11 Hem Onc 400 [facility] [place] [address] 12/24/2023 11:00 AM EDT Office Visit [facility] [place] 21 [facility] [place] [phone] Kinjal Reynoso PA-C 21 [facility] [place] [address] Health Maintenance Due Date Last Done Comments [...] this encounter Medical Devices Implanted Type Area Radiotelegraph Operator Servicer Device Identifier Shelf Expiration Date Model / Serial / Lot Port Implant W/8f Poly Cath - [id number] Implanted:Qty : 1 on 05/18/2023 by Juan Jose Connell, DO at OR [facility] Right: Chest CR BARD : PERIPHERAL VASCULAR [id number] 11/18/2024 [id number] / / [id number] documented as of this encounter Advance Directives [...] Advance Directives occurred with: Patient Care Teams Gas Leak Tester Relationship Specialty Start Date End Date Kinjal Reynoso PA-C 21 [place] [phone] PCP - General Physician Human Resources Operations Director 11/05/22 documented as of this encounter
--- OUTSIDE RECORDS SUMMARY | 2024-01-01 09:10 | External Medical Summary | Summary of Care ---
Author Name Unknown Organization [facility] Address [address] [place] [address] Phone [phone] Care Team Providers Care General Neurologist Name Role Phone Kinjal Reynoso PA-C Primary Care Provider [phone] Encounter Details Date Type Department Care Team (Late st Contact Info) Description 11/25/2023 Telephone [facility] 21 [place] [address] Kinjal Reynoso PA-C 21 [facility] [address] Allergies Active Allergy Reactions Criticality Noted [...] as of this encounter (statuses as of 11/25/2023) Medications Medication Sig Dispensed Refills Start Date End Date Status Naloxone HCl 4 MG/0.1ML Nasal Liquid (Narcan Nasal)Indications:Ch ronic pelvic pain in female,MEDICATION USE AGREEMENT,Chronic abdominal pain ADMINISTER 1 SPRAY INTO 1 NOSTRIL FOR SUSPECTED OPIOID OVERDOSE - SEEK IMMEDIATE MEDICAL ATTENTION. [email or web address]?/=/[email or web address] 2 Each 3 03/31/2023 Active Polyethylene Glycol [...] as directed, through J-tube via feeding pump. 07392 mL 11 10/05/2023 Active Peptamen AF Oral Liquid Administer 1,000 mL over 12 hours into J tube 4 times a day. 22772 mL 11 09/30/2023 Active Enteral Feeding Piston Syringe Use as directed. 30 Each 11 09/30/2023 Active oxyCODONE HCl 5 MG/5ML Oral [...] as of this encounter (statuses as of 11/25/2023) Active Problems Problem Noted Date Diagnosed Date [...] as of this encounter (statuses as of 11/25/2023) Resolved Problems Problem Noted Date Diagnosed Date [...] as of this encounter (statuses as of 11/25/2023) Immunizations Name Administration Dates Next Due DTaP [...] Miscellaneous Notes * Telephone Encounter - Yumiko Cervantes OSA - 11/25/2023 9:17 AM EDT Please see the following message from Kinjal Reynoso: I do not know what procedure is needed. I need IR consult. It is possible that no procedure is needed. If they cannot do an outpatient consult, then I will need to change referral to general surgery. documented in this encounter Plan of Treatment Upcoming Encounters Date Type Department Care Team (Late st Contact Info) Description 11/29/2023 1:30 PM EDT Office Visit Gastroenterology, [place] [address] [place] [address] [place] [phone] Vicki Roberts PA-C 310 [facility] [place] [address] 12/17/2023 1:30 PM EDT Nurse Only Hematology/Oncology Treatment, [facility] 400 [facility] [address] [facility], Chair11 Hem Onc 400 [place] [address] 12/24/2023 11:00 AM EDT Office Visit [facility] [place] 21 [place] [phone] Kinjal Reynoso PA-C 21 [place] [address] Health Maintenance Due Date Last Done Comments [...] this encounter Medical Devices Implanted Type Area Supervisor Functional Testing Device Identifier Shelf Expiration Date Model / Serial / Lot Port Implant W/8f Poly Cath - [id number] Implanted:Qty : 1 on 05/18/2023 by Juan Jose Connell DO at OR [facility] Right: Chest CR BARD : PERIPHERAL VASCULAR [id number] 11/18/2024 [id number] / / [id number] documented as of this encounter Advance Directives [...] Advance Directives occurred with: Patient Care Teams General Neurologist Relationship Specialty Start Date End Date Kinjal Reynoso PA-C 21 [place] [address] PCP - General Physician Pelt Salter 11/05/22 documented as of this encounter
--- OUTSIDE RECORDS SUMMARY | 2024-01-01 09:10 | External Medical Summary | Summary of Care ---
Author Name Unknown Organization [facility] Address [address] [place] [address] Phone [phone] Care Team Providers Care Biomedical Specialist Name Role Phone Kinjal Reynoso PA-C Primary Care Provider [phone] Reason for Visit * Reason Onset Date Comments Order Request 11/24/202311/23 Encounter Details Date Type Department Care Team (Late st Contact Info) Description 11/24/2023 Telephone [facility] 21 [facility] [address] Kinjal Reynoso PA-C 21 [facility] [address] Order Request (11/23) Allergies Active Allergy Reactions Criticality Noted Date [...] OPIOID OVERDOSE - SEEK IMMEDIATE MEDICAL ATTENTION. [email or web address] 2 Each 3 03/31/2023 Active Polyethylene Glycol [...] as directed, through J-tube via feeding pump. 42966 mL 11 10/05/2023 Active Peptamen AF Oral Liquid Administer 1,000 mL over 12 hours into J tube 4 times a day. 29160 mL 09/30/2023 Active Enteral Feeding Piston Syringe [...] Encounter - Yumiko Cervantes OSA - 11/25/2023 10:46 AM EDT Spoke with printing sign machine operator from radiology they are going to schedule pt for a consult with IR. * Telephone Encounter - Kinjal Reynoso PA-C - 11/24/2023 6:51 PM EDT I do not know what procedure is needed. I need IR consult. It is possible that no procedure is needed. If they cannot do an outpatient consult, then I will need to change referral to general surgery. * Telephone Encounter - Yumiko Cervantes OSA - 11/24/2023 3:52 PM EDT Radiology states they need an order placed for the procedure that they can't schedule from the referral? documented in this encounter Plan of Treatment Upcoming Encounters Date Type Department Care Team (Late st Contact Info) Description 11/29/2023 1:30 PM EDT Office Visit Gastroenterology, [facility] 310 [facility] [address] Vicki Roberts PA-C 310 [facility] [place] [address] 12/17/2023 1:30 PM EDT Nurse Only Hematology/Oncology Treatment, [facility] 400 [facility] [address] [facility], Chair11 Hem Onc 400 [place] [address] 12/24/2023 11:00 AM EDT Office Visit [facility] [place] [phone] Kinjal Reynoso PA-C 21 [facility] [place] [address] Health Maintenance Due Date Last Done Comments [...] this encounter Medical Devices Implanted Type Area Automotive Software Engineer Device Identifier Shelf Expiration Date Model / Serial / Lot Port Implant W/8f Poly Cath - [id number] Implanted:Qty : 1 on 05/18/2023 by Juan Jose Connell, at OR [facility] Right: Chest CR BARD : PERIPHERAL VASCULAR [id number] 11/18/2024 [id number] / / [id number] documented as of this encounter Advance Directives [...] Advance Directives occurred with: Patient Care Teams Biomedical Specialist Relationship Specialty Start Date End Date Kinjal Reynoso PA-C 21 [facility] [place] [address] PCP - General Physician Dance Studio Manager 11/05/22 documented as of this encounter
--- OUTSIDE RECORDS SUMMARY | 2024-01-01 09:10 | External Medical Summary | Summary of Care ---
Author Name Unknown Organization [facility] Address [address] [place] [address] Phone [phone] Care Team Providers Care Lens Edger Name Role Phone Kinjal Reynoso PA-C Primary Care Provider [phone] Reason for Visit * Reason Onset Date Comments Order Request 11/24/202311/23 Encounter Details Date Type Department Care Team (Late st Contact Info) Description 11/24/2023 Telephone [facility] 21 [facility] [place] [address] Kinjal Reynoso PA-C 21 [facility] [place] [address] Order Request (11/23) Allergies Active [...] OPIOID OVERDOSE - SEEK IMMEDIATE MEDICAL ATTENTION. [email or web address] 2 Each 3 03/31/2023 Active Polyethylene Glycol [...] as directed, through J-tube via feeding pump. 72584 mL 11 10/05/2023 Active Peptamen AF Oral Liquid Administer 1,000 mL over 12 hours into J tube 4 times a day. 67228 mL 09/30/2023 Active Enteral Feeding Piston Syringe [...] 11/29/2023 1:30 PM EDT Office Visit Gastroenterology, [facility] 310 [facility] [place] [phone] Vicki Roberts PA-C 310 [facility] [address] 12/17/2023 1:30 PM EDT Nurse Only Hematology/Oncology Treatment, [facility] 400 [facility] [address] [facility], Chair11 Hem Onc 400 [facility] [address] 12/24/2023 11:00 AM EDT Office Visit Family [facility] [place] 21 [facility] [phone] Kinjal Reynoso PA-C [facility] [address] Health Maintenance Due Date Last Done Comments [...] this encounter Medical Devices Implanted Type Area Blasting Cap Assembler Device Identifier Shelf Expiration Date Model / Serial / Lot Port Implant W/8f Poly Cath - [id number] Implanted:Qty : 1 on 05/18/2023 by Juan Jose Connell, at OR [facility] Right: Chest CR BARD : PERIPHERAL VASCULAR [id number] 11/18/2024 [id number] / / [id number] documented as of this encounter Advance Directives [...] Advance Directives occurred with: Patient Care Teams Lens Edger Relationship Specialty Start Date End Date Kinjal Reynoso PA-C 21 [place] [phone] PCP - General Physician Ornamental Ironworker Helper 11/05/22 documented as of this encounter
--- OUTSIDE RECORDS SUMMARY | 2024-01-01 09:10 | External Medical Summary | Summary of Care ---
Author Name Unknown Organization [facility] Address [address] [place] [address] Phone [phone] Care Team Providers Care Pumper Helper Name Role Phone Kinjal Reynoso PA-C Primary Care Provider [phone] Reason for Visit * Reason Comments Other * Auth/Cert Specialty Diagnoses / Procedures Referred By Carmen t Referred To Contact [facility] [address] [place] [address] Phone: [phone] Emergency Medicine [facility] 400 [place] [address] Referral ID Status Reason Start Date Expiration Date Visits Re quested Visits Authorized [id number] Encounter Details Date Type Department Care Team ([facility] Contact Info) Description 11/27/2023 7:30 AM EDT - 11/27/2023 10:35 AM EDT Emergency [facility] Emergency Department (H) [address] [place] [address] Néstor Mcnamara MD 400 [place] [address] Jejunostomy present (HCC) (Primary Dx) Discharge Disposition: Home - Self [...] OPIOID OVERDOSE - SEEK IMMEDIATE MEDICAL ATTENTION. [email or web address]=/[email or web address] 2 Each 3 03/31/2023 Active Polyethylene Glycol [...] as directed, through J-tube via feeding pump. 57049 mL 11 10/05/2023 Active Peptamen AF Oral Liquid Administer 1,000 mL over 12 hours into J tube 4 times a day. 67828 mL 11 09/30/2023 Active Enteral Feeding Piston [...] Sign Reading Time Taken Comments Blood Pressure 144/105 11/27/2023 9:42 AM EDT Pulse 96 11/27/2023 9:42 AM EDT Temperature 36.5 C (97.7 F) 11/27/2023 7:28 AM ED T Respiratory Rate 18 11/27/2023 9:42 AM EDT Oxygen Saturation 99% 11/27/2023 7:28 AM EDT Inhaled Oxygen Concentration - - Weight 73.9 kg (163 lb) 11/27/2023 7:28 AM EDT Height 157.5 cm (5' 2") 11/27/2023 7:28 AM EDT Body Mass Index 29.81 11/27/2023 7:28 AM EDT documented in this [...] No 2023 documented as of this encounter Discharge Instructions * Discharge Instructions* Néstor Mcnamara MD - 11/27/2023 10:16 AM EDT Your jejunostomy tube is in satisfactory position. Please follow-up with your interventional radiology team and your surgery team. Return with worsening pain, inability eat or drink, fevers, chills Please return to this Emergency [...] documented in this encounter ED Notes * Rashmi Morales, LUPIS - 11/27/2023 7:27 AM EDT Pt says that she accidentally pulled her J tube out a little this morning. Says that she used the Jtube last night but not this am. documented in this encounter Miscellaneous Notes * ED Hat Presser Note - Leah Quinteros RN - 11/27/2023 10:34 AM EDT Discharge instructions reviewed with pt, states understanding. Ambulated off unit with a steady gait. * ED Hat Presser Note - Leah Quinteros RN - 11/27/2023 8:23 AM EDT Pt states when she was getting OOB this morning she accidentally pulled on her J tube and is concerned it is dislodged. States she feels "deep" pain in the area of the J tube. Pt did not try to use the tube since the incident. No bleeding or drainage from the site. Hyperactive bowel sounds. Abd soft, non-distended. documented in this encounter Plan of Treatment Upcoming Encounters Date Type Department Care Team (Late st Contact Info) Description 11/29/2023 1:30 PM EDT Office Visit Gastroenterology, [address] [place] [address] Vicki Roberts PA-C [address] [place] [address] [place] [address] 11/30/2023 8:00 AM EDT Office Visit Interventional Radiology, [address] [place] [address] Luis Finn MD [address] [place], [place] [address] [address] 12/17/2023 1:30 PM EDT Nurse Only Hematology/Oncology Treatment, [address] [place] [address] Gl, Chair11 Hem Onc [address] [place], [place] [address] [address] 12/24/2023 11:00 AM EDT Office Visit [facility] [place] 21 [place] [address] Kinjal Reynoso PA-C 21 [place] [address] Health Maintenance Due Date Last Done Comments [...] this encounter Medical Devices Implanted Type Area Scrap Iron Cutter Device Identifier Shelf Expiration Date Model / Serial / Lot Port Implant W/8f Poly Cath - [id number] Implanted:Qty : 1 on 05/18/2023 by Juan Jose Connell DO at OR [facility] Right: Chest CR BARD : PERIPHERAL VASCULAR [id number] 11/18/2024 [id number] / / [id number] documented as of this encounter Procedures Procedure Name Priority Date/Time Associated Diagnosis Comments XR GI TUBE EVAL WITH CONTRAST INJECTION STAT 11/27/2023 8:37 AM EDT documented in this encounter Results * XR GI TUBE EVAL WITH CONTRAST INJECTION (11/27/2023 8:37 AM EDT) Anatomical Region Laterality Modality GI, Abdomen, Pelvis Digital Radi ography 11/27/2023 8:23 AM EDT Impressions 11/27/2023 10:08 AM EDT IMPRESSION: Jejunostomy tube in satisfactory position as above. THIS DOCUMENT HAS BEEN ELECTRONICALLY SIGNED BY ADAM MENDEZ MD Narrative 11/27/2023 10:08 AM EDT PROCEDURE INFORMATION: Exam: XR Abdomen Exam date and time: 11/27/2023 8:23 AM Age: 23 years old Clinical indication: Symptoms: J tube dislodgement; Additional info: J tube dislodgment TECHNIQUE: Imaging protocol: Radiologic exam of the abdomen. Views: Frontal supine view of the abdomen. 1 View. COMPARISON: US PELVIS TRANS-VAGINAL NON-OB 11/23/2023 11:03 PM FINDINGS: Bowel: The bowel gas pattern is unremarkable. There is no obstruction. Ostomy tube is in place, with injected contrast filling small bowel loops within the right mid abdomen. There is no evidence of free intraperitoneal contrast to suggest extraluminal positioning. Osseous structures: No acute osseous abnormality is present. No soft tissue swelling is seen. Procedure Note Adam Mendez MD - 11/27/2023 PROCEDURE INFORMATION: Exam: XR Abdomen Exam date and time: 11/27/2023 8:23 AM Age: 23 years old Clinical indication: Symptoms: J tube dislodgement; Additional info: Jtube dislodgment TECHNIQUE: Imaging protocol: Radiologic exam of the abdomen. Views: Frontal supine view of the abdomen. 1 View. COMPARISON: US PELVIS TRANS-VAGINAL NON-OB 11/23/2023 11:03 PM FINDINGS: Bowel: The bowel gas pattern is unremarkable. There is no obstruction.Ostomy tube is in place, with injected contrast filling small bowel loops withinthe right mid abdomen. There is no evidence of free intraperitoneal contrastto suggest extraluminal positioning. Osseous structures: No acute osseous abnormality is present. No softtissue swelling is seen. IMPRESSION IMPRESSION: Jejunostomy tube in satisfactory position as above. THIS DOCUMENT HAS BEEN ELECTRONICALLY SIGNED BY ADAM MENDEZ MD Tank Cavanaugh PA-C RAD FLUOROSCOPY documented in this encounter Visit Diagnoses Diagnosis Jejunostomy present (HCC)- Primary documented in this encounter Administered Medications Inactive Administered Medications - up to 3 most recent administrations Medication Order MAR Action Action Date Dose Rate Site Ioversol (Optiray 320) inj 50 mL 50 mL, Intravenous, ONCE, On 11/27/23 at 0915, For 1 dose, Radiology Medication Routing (Non-IR) Given 11/27/2023 9:15 AM EDT 20 mL ondansetron ODT (Zofran) tab 4 mg 4 mg, On Tongue, ONCE, On 11/27/23 at 0845, For 1 dose Given 11/27/2023 9:15 AM EDT 4 mg oxyCODONE (Roxicodone) oral syrup 5 mg 5 mg, Oral, ONCE, On 11/27/23 at 0915, For 1 dose Given 11/27/2023 9:15 AM EDT 5 mg documented in this encounter Active and Recently Administered Medications Times are shown in EDT. Scheduled Medication Order 11/25/2023 11/26/2023 11/27/2023 Ioversol (Optiray 320) inj 50 mL (COMPLETED) 50 mL, Intravenous, ONCE, On 11/27/23 at 0915, For 1 dose, Radiology Medication Routing (Non-IR) 0915 (Given - Provid er: Tank Cavanaugh PA-C) ondansetron ODT (Zofran) tab 4 mg (COMPLETED) 4 mg, On Tongue, ONCE, On 11/27/23 at 0845, For 1 dose 0915 (Given - Provid er: Leah Quinteros RN) oxyCODONE (Roxicodone) oral syrup 5 mg (COMPLETED) 5 mg, Oral, ONCE, On 11/27/23 at 0915, For 1 dose 0915 (Given - Provid er: Leah Quinteros RN) documented in this encounter Advance Directives * [...] Advance Directives occurred with: Patient Care Teams Pumper Helper Relationship Specialty Start Date End Date Kinjal Reynoso PA-C 21 [place] [address] PCP - General Physician Wheel Installer 11/05/22 documented as of this encounter
--- OUTSIDE RECORDS SUMMARY | 2024-01-01 09:10 | External Medical Summary | Summary of Care ---
Author Name Unknown Organization [facility] Address [address] [place] [address] Phone [phone] Care Team Providers Care Wink Cutter Operator Name Role Phone Kinjal Reynoso PA-C Primary Care Provider [phone] Reason for Visit * Reason Onset Date Comments Scheduling 11/25/2023 Encounter Details Date Type Department Care Team (Late st Contact Info) Description 11/25/2023 Telephone [facility] 21 [facility] [place] [address] Kinjal Reynoso PA-C 21 [facility] [place] [address] Scheduling Allergies Active Allergy Reactions Criticality Noted Date [...] OPIOID OVERDOSE - SEEK IMMEDIATE MEDICAL ATTENTION. [email or web address] 2 Each 3 03/31/2023 Active Polyethylene Glycol [...] as directed, through J-tube via feeding pump. 80582 mL 11 10/05/2023 Active Peptamen AF Oral Liquid Administer 1,000 mL over 12 hours into J tube 4 times a day. 40562 mL 09/30/2023 Active Enteral Feeding Piston Syringe [...] encounter Miscellaneous Notes * Telephone Encounter - Mona Webber OSA - 11/25/2023 11:56 AM EDT Called patient to schedule Consult for the [employer] . No answer. Left message for patient to return call. documented in this encounter Plan of Treatment Upcoming Encounters Date Type Department Care Team (Late st Contact Info) Description 11/29/2023 1:30 PM EDT Office Visit Gastroenterology, [place] Roca [address] [place] [address] Vicki Roberts PA-C [address] [place] [address] 12/17/2023 1:30 PM EDT Nurse Only Hematology/Oncology Treatment, [facility] 400 [facility] [place] [address] Glh, Chair11 Hem Onc 400 [facility] [address] 12/24/2023 11:00 AM EDT Office Visit Family [facility] [place] 21 [facility] [address] [phone] Kinjal Reynoso PA-C 21 [facility] [address] Health Maintenance Due Date Last Done Comments [...] this encounter Medical Devices Implanted Type Area Lapper Device Identifier Shelf Expiration Date Model / Serial / Lot Port Implant W/8f Poly Cath - [id number] Implanted:Qty : 1 on 05/18/2023 by Juan Jose Connell DO at OR [facility] Right: Chest CR BARD : PERIPHERAL VASCULAR [id number] 11/18/2024 [id number] / / [id number] documented as of this encounter Advance Directives [...] Advance Directives occurred with: Patient Care Teams Wink Cutter Operator Relationship Specialty Start Date End Date Kinjal Reynoso PA-C 21 [place] [address] PCP - General Physician Stencil Cutter Machine 11/05/22 documented as of this encounter
--- OUTSIDE RECORDS SUMMARY | 2024-01-01 09:10 | External Medical Summary | Summary of Care ---
Author Name Unknown Organization [facility] Address [address] [place] [address] Phone [phone] Care Team Providers Care Worship Leader Name Role Phone Kinjal Reynoso PA-C Primary Care Provider [phone] Reason for Visit * Reason Onset Date Comments Order Request 11/24/202311/23 Encounter Details Date Type Department Care Team (Late st Contact Info) Description 11/24/2023 Telephone [facility] [address] [place] [address] Kinjal Reynoso PA-C [address] [place] [address] Order Request (11/23) Allergies Active [...] OPIOID OVERDOSE - SEEK IMMEDIATE MEDICAL ATTENTION. [email or web address] 2 Each 3 03/31/2023 Active Polyethylene Glycol [...] as directed, through J-tube via feeding pump. 93132 mL 11 10/05/2023 Active Peptamen AF Oral Liquid Administer 1,000 mL over 12 hours into J tube 4 times a day. 71650 mL 09/30/2023 Active Enteral Feeding Piston Syringe [...] - 11/25/2023 10:46 AM EDT Spoke with scheduler conveyor from radiology they are going to schedule [...] 11/29/2023 1:30 PM EDT Office Visit Gastroenterology, [facility] [address] Vicki Roberts PA-C 310 [place] [address] 12/17/2023 1:30 PM EDT Nurse Only Hematology/Oncology Treatment, [facility] [address] [facility], Chair11 Hem Onc 400 [place] [address] 12/24/2023 11:00 AM EDT Office Visit [facility] [place] [phone] Kinjal Reynoso PA-C [facility] [place] [address] Health Maintenance Due Date Last Done Comments [...] this encounter Medical Devices Implanted Type Area Machine Stemmer Device Identifier Shelf Expiration Date Model / Serial / Lot Port Implant W/8f Poly Cath - [id number] Implanted:Qty : 1 on 05/18/2023 by Juan Jose Connell, at OR [facility] Right: Chest CR BARD : PERIPHERAL VASCULAR [id number] 11/18/2024 [id number] / / [id number] documented as of this encounter Advance Directives [...] Advance Directives occurred with: Patient Care Teams Worship Leader Relationship Specialty Start Date End Date Kinjal Reynoso PA-C 21 [facility] [place] [address] PCP - General Physician Gum Worker 11/05/22 documented as of this encounter
--- OUTSIDE RECORDS SUMMARY | 2024-01-01 09:10 | External Medical Summary | Summary of Care ---
Author Name Unknown Organization [facility] Address [address] [place] [address] Phone [phone] Care Team Providers Care Cut Out Stitcher Name Role Phone Kinjal Reynoso PA-C Primary Care Provider [phone] Reason for Visit * Reason Onset Date Comments Scheduling 11/25/2023 Encounter Details Date Type Department Care Team (Late st Contact Info) Description 11/25/2023 Telephone [facility] 21 [facility] [place] [address] Kinjal Reynoso PA-C 21 [facility] [place] [address] Scheduling Allergies Active Allergy [...] as of this encounter (statuses as of 11/30/2023) Medications Medication Sig Dispensed Refills Start Date End Date Status Naloxone HCl 4 MG/0.1ML Nasal Liquid (Narcan Nasal)Indications:Ch ronic pelvic pain in female,MEDICATION USE AGREEMENT,Chronic abdominal pain ADMINISTER 1 SPRAY INTO 1 NOSTRIL FOR SUSPECTED OPIOID OVERDOSE - SEEK IMMEDIATE MEDICAL ATTENTION. [email or web address] 2 Each 3 03/31/2023 Active Polyethylene Glycol [...] as directed, through J-tube via feeding pump. 42151 mL 10/05/2023 Active Peptamen AF Oral Liquid Administer 1,000 mL over 12 hours into J tube 4 times a day. 58031 mL 09/30/2023 Active Enteral Feeding Piston Syringe [...] as of this encounter (statuses as of 11/30/2023) Active Problems Problem Noted Date Diagnosed Date [...] as of this encounter (statuses as of 11/30/2023) Resolved Problems Problem Noted Date Diagnosed Date [...] as of this encounter (statuses as of 11/30/2023) Immunizations Name Administration Dates Next Due DTaP [...] encounter Miscellaneous Notes * Telephone Encounter - Chris Guerra RN - 11/30/2023 8:33 AM EDT Pt scheduled for J-tube consult with Dr. Finn at 0800. As of 819, patient has not yet arrived. Called and left message with patient regarding this matter. * Telephone Encounter - Mona Webber OSA - 11/25/2023 3:11 PM EDT Patient had called back in to schedule the Consult for the G-J tube pain for 11/29 at [facility] * Telephone Encounter - Mona Webber OSA - 11/25/2023 11:56 AM EDT Called patient to schedule Consult for the Jtube . No answer. Left message for patient to return call. documented in this encounter Plan of Treatment Upcoming Encounters Date Type Department Care Team (Late st Contact Info) Description 12/17/2023 1:30 PM EDT Nurse Only Hematology/Oncology Treatment, [facility] 400 [facility] [place] [address] [facility], Chair11 Hem Onc 400 [facility] [place] [address] 12/24/2023 11:00 AM EDT Office Visit [facility] 21 [facility] [place] [phone] Kinjal Reynoso PA-C [facility] [address] Health Maintenance Due Date Last Done Comments [...] this encounter Medical Devices Implanted Type Area Repair Operator Device Identifier Shelf Expiration Date Model / Serial / Lot Port Implant W/8f Poly Cath - [id number] Implanted:Qty : 1 on 05/18/2023 by Juan Jose Connell, DO at OR [facility] Right: Chest CR BARD : PERIPHERAL VASCULAR [id number] 11/18/2024 [id number] / / [id number] documented as of this encounter Advance Directives [...] Advance Directives occurred with: Patient Care Teams Cut Out Stitcher Relationship Specialty Start Date End Date Kinjal Reynoso PA-C 21 [place] [address] PCP - General Physician Baker Helper 11/05/22 documented as of this encounter
--- OUTSIDE RECORDS SUMMARY | 2024-01-01 09:10 | External Medical Summary | Summary of Care ---
Author Name Unknown Organization [facility] Address [address] [place] [address] Phone [phone] Care Team Providers Care Ice Bag Assembler Name Role Phone Kinjal Reynoso PA-C Primary Care Provider [phone] Reason for Visit * Reason Onset Date Comments Scheduling 11/25/2023 Encounter Details Date Type Department Care Team (Late st Contact Info) Description 11/25/2023 Telephone [facility] 21 [facility] [place] [address] Kinjal Reynoso PA-C 21 [facility] [place] [address] Scheduling Allergies Active Allergy [...] OPIOID OVERDOSE - SEEK IMMEDIATE MEDICAL ATTENTION. [email or web address] 2 Each 3 03/31/2023 Active Polyethylene Glycol [...] as directed, through J-tube via feeding pump. 65081 mL 11 10/05/2023 Active Peptamen AF Oral Liquid Administer 1,000 mL over 12 hours into J tube 4 times a day. 85599 mL 09/30/2023 Active Enteral Feeding Piston Syringe [...] the G-J tube pain for 11/29 at [facility] * Telephone Encounter - Mona Webber OSA - 11/25/2023 11:56 AM EDT Called patient to schedule Consult for the Jtube . No answer. Left message for patient to return call. documented in this encounter Plan of Treatment Upcoming Encounters Date Type Department Care Team (Late st Contact Info) Description 11/29/2023 1:30 PM EDT Office Visit Gastroenterology, [facility] 310 [facility] [place] [address] Vicki Roberts PA-C 310 [facility] [address] 12/17/2023 1:30 PM EDT Nurse Only Hematology/Oncology Treatment, [facility] 400 [facility] [address] [facility], Chair11 Hem Onc [facility] [address] 12/24/2023 11:00 AM EDT Office Visit [facility] [phone] Kinjal Reynoso PA-C 21 [facility] [phone] Health Maintenance Due Date Last Done Comments [...] this encounter Medical Devices Implanted Type Area Baker Paint Device Identifier Shelf Expiration Date Model / Serial / Lot Port Implant W/8f Poly Cath - [id number] Implanted:Qty : 1 on 05/18/2023 by Juan Jose Connell, DO at OR [facility] Right: Chest CR BARD : PERIPHERAL VASCULAR [id number] 11/18/2024 [id number] / / [id number] documented as of this encounter Advance Directives [...] Advance Directives occurred with: Patient Care Teams Ice Bag Assembler Relationship Specialty Start Date End Date Kinjal Reynoso PA-C 21 [place] [address] PCP - General Physician Diplomatic Interpreter/Translator 11/05/22 documented as of this encounter
--- OUTSIDE RECORDS SUMMARY | 2024-01-01 09:10 | External Medical Summary | Summary of Care ---
Author Name Unknown Organization [facility] Address [address] [place] [address] Phone [phone] Care Team Providers Care Medical Coding Manager Name Role Phone Kinjal Reynoso PA-C Primary Care Provider [phone] Encounter Details Date Type Department Care Team (Late st Contact Info) Description 11/25/2023 Documentation Interventional Radiology [facility], [facility] [address] [place] [address] Luis Finn MD [address] [place] [address] Allergies Active Allergy Reactions Criticality Noted [...] OPIOID OVERDOSE - SEEK IMMEDIATE MEDICAL ATTENTION. [email or web address] 2 Each 3 03/31/2023 Active Polyethylene Glycol [...] as directed, through J-tube via feeding pump. 49437 mL 11 10/05/2023 Active Peptamen AF Oral Liquid Administer 1,000 mL over 12 hours into J tube 4 times a day. 34361 mL 11 09/30/2023 Active Enteral Feeding Piston [...] No 2023 documented as of this encounter Consult Notes * Luis Finn MD - 11/25/2023 10:06 AM EDT Pt referred for jejunostomy pain. CT 11/23/23 reviewed. No reasonable suspicion of tract infection. Balloon in good position. Nl bowel caliber not suggestive of obstruction. Chart reviewed. Pt with generalized abd pain. Will sched pt for office visit. I spent a total of 20-29 minutes (exact time 25 mins) on the date of service in preparation, delivery, and documentation of the care provided to Anirudh CuevasFrances excluding any time spent inthe performance of separately billed services. documented in this encounter Plan of Treatment Upcoming Encounters Date Type Department Care Team (Late st Contact Info) Description 11/29/2023 1:30 PM EDT [facility] 310 [facility] [place] [phone] Vicki Roberts PA-C 310 [facility] [place] [address] 12/17/2023 1:30 PM EDT Nurse Only Hematology/Oncology Treatment, [facility] 400 [facility] [address] [facility], Chair11 Hem Onc 400 [facility] [address] 12/24/2023 11:00 AM EDT Office Visit Family Practice, [place] 21 [facility] [place] [phone] Kinjal Reynoso PA-C 21 [facility] [place] [address] Health Maintenance Due Date Last Done Comments [...] this encounter Medical Devices Implanted Type Area Asset Protection Associate Device Identifier Shelf Expiration Date Model / Serial / Lot Port Implant W/8f Poly Cath - [id number] Implanted:Qty : 1 on 05/18/2023 by Juan Jose Connell, at OR [facility] Right: Chest CR BARD : PERIPHERAL VASCULAR [id number] 11/18/2024 [id number] / / [id number] documented as of this encounter Advance Directives [...] Advance Directives occurred with: Patient Care Teams Medical Coding Manager Relationship Specialty Start Date End Date Kinjal Reynoso PA-C 21 [facility] [place] [address] PCP - General Physician Scale Reclamation Tender 11/05/22 documented as of this encounter
--- OUTSIDE RECORDS SUMMARY | 2024-01-01 09:10 | External Medical Summary | Summary of Care ---
Author Name Unknown Organization [facility] Address [address] [place] [address] Phone [phone] Care Team Providers Care Heating Systems Installer Name Role Phone Kinjal Reynoso PA-C Primary Care Provider [phone] Reason for Visit * Reason Comments Medication Refill Encounter Details Date Type Department Care Team (Late st Contact Info) Description 12/16/[address] [facility] 21 [place] [address] Kinjal Reynoso PA-C 21 [facility] [place] [address] Gastroparesis; Chronic pelvic pain in female; [...] as of this encounter (statuses as of 12/17/2023) Medications Medication Sig Dispensed Refills Start Date End Date Status Naloxone HCl 4 MG/0.1ML Nasal Liquid (Narcan Nasal)Indications:C hronic pelvic pain in female,MEDICATION USE AGREEMENT,Chronic abdominal pain ADMINISTER 1 SPRAY INTO 1 NOSTRIL FOR SUSPECTED OPIOID OVERDOSE - SEEK IMMEDIATE MEDICAL ATTENTION. [email or web address] 2 Each 3 03/31/2023 Active Polyethylene Glycol [...] as directed, through J-tube via feeding pump. 76100 mL 11 10/05/2023 Active Peptamen AF Oral Liquid Administer 1,000 mL over 12 hours into J tube 4 times a day. 76299 mL 09/30/2023 09/25/19 25 Active Enteral Feeding Piston Syringe [...] and 1 Capsule before bedtime. 11/24/2023 Active oxyCODONE HCl 5 MG/5ML Oral Solution (Roxicodone)Indicat ions:Gastroparesis, Chronic pelvic pain in female,Malfunction of jejunostomy tube (HCC) Take 5 mL by mouth every 6 hours as needed for Pain, Severe. DO NOT TAKE MORE THAN 4 DOSES A DAY. Rx must last 28 days. Continuation of Care 560 mL 12/17/2023 Active oxyCODONE HCl 5 MG/5ML Oral Solution (Roxicodone)Indicat ions:Gastroparesis, Chronic pelvic pain in female,Malfunction of jejunostomy tube (HCC) Take 5 mL by mouth every 6 hours as needed for Pain, Severe. DO NOT TAKE MORE THAN 4 DOSES A DAY. Rx must last 28 days. Continuation of Care 560 mL 11/22/2023 12/16/19 24 Discontinu ed(Refill) documented as of this encounter (statuses as of 12/17/2023) Active Problems Problem Noted Date Diagnosed Date [...] as of this encounter (statuses as of 12/17/2023) Resolved Problems Problem Noted Date Diagnosed Date [...] as of this encounter (statuses as of 12/17/2023) Immunizations Name Administration Dates Next Due DTaP [...] encounter Miscellaneous Notes * Telephone Encounter - Cameron Guzmán CRNP - 12/17/2023 7:12 AM EDTSigned Prescriptions: Disp Refills oxyCODONE HCl 5 MG/5ML Oral Solution (Tiffani*560 mL 0 Sig: Take 5 mL by mouth every 6 hours as needed for Pain, Severe. DO NOT TAKE MORE THAN 4 DOSES A DAY. Rx must last 28 days. Continuation of Care Authorizing Provider: CAMERON GUZMÁN * Telephone Encounter - Shannan Díaz RPh - 12/17/2023 6:55 AM EDT Pending Prescriptions: Disp Refills oxyCODONE HCl 5 MG/5ML Oral Solution (Tiffani*560 mL 0 Sig: Take 5 mL by mouth every 6 hours as needed for Pain, Severe. DO NOT TAKE MORE THAN 4 DOSES A DAY. Rx must last 28 days. Continuation of Care * Telephone Encounter - Shannan Díaz [facility] - 12/17/2023 6:55 AM EDT I have reviewed the patients controlled substance dispensing history in the Prescription Drug Monitoring Program in compliance with the [facility] regulations before prescribing a controlled substance. PDMP checked on 12/17/2023. Pending Prescriptions: Disp Refills oxyCODONE HCl 5 MG/5ML Oral Solution (Concha*560 mL 0 Sig: Take 5 mL by mouth every 6 hours as needed for Pain, Severe. DO NOT TAKE MORE THAN 4 DOSES A DAY. Rx must last 28 days. Continuation of Care Last Visit: 11/24/2023 (in office), 09/10/2022 (telemedicine) Next Visit: 12/24/2023 Date medication was last filled: 11/21 Date medication is due for refill: 12/19 Pharmacy: [facility] Is this request for a controlled substance? Yes and Urine Drug Screen was completed Toxicology results: Results for orders placed or performed during [...] testing. Results for orders placed or performed in [...] available upon request. Please approve if appropriate. Thank you, Shannan Díaz, PharmD. Clinical Pharmacist [facility] ([facility]) 12/17/2023, 6:55 AM documented in this encounter Plan of Treatment Upcoming Encounters Date Type Department Care Team (Late st Contact Info) Description 12/17/2023 1:30 PM EDT Nurse Only Hematology/Oncology Treatment, [facility] [address] [facility] [address] [facility], Chair11 Hem Onc 400 [facility] [address] 12/24/2023 11:00 AM EDT Office Visit [facility] 21 [facility] [place] [phone] Kinjal Reynoso PA-C 21 [facility] [address] [address] Health Maintenance Due Date Last Done Comments [...] this encounter Medical Devices Implanted Type Area Nurse Liaison Device Identifier Shelf Expiration Date Model / Serial / Lot Port Implant W/8f Poly Cath - [id number] Implanted:Qty : 1 on 05/18/2023 by Juan Jose Connell, at OR [facility] Right: Chest CR BARD : PERIPHERAL VASCULAR [id number] 11/18/2024 [id number] / / [id number] documented as of this encounter Visit Diagnoses [...] Advance Directives occurred with: Patient Care Teams Heating Systems Installer Relationship Specialty Start Date End Date Kinjal Reynoso PA-C 21 [place] [address] PCP - General Physician Loan Adviser 11/05/22 documented as of this encounter
--- OUTSIDE RECORDS SUMMARY | 2024-01-01 09:10 | External Medical Summary | Summary of Care ---
Author Name Unknown Organization [facility] Address [address] [place] [address] Phone [phone] Care Team Providers Care Resource Forester Name Role Phone Kinjal Reynoso PA-C Primary Care Provider [phone] Encounter Details Date Type Department Care Team (Late st Contact Info) Description 11/25/2023 Telephone [facility] 21 [place] [address] Kinjal Reynoso PA-C 21 [facility] [place] [address] Allergies Active Allergy Reactions Criticality Noted [...] OPIOID OVERDOSE - SEEK IMMEDIATE MEDICAL ATTENTION. [email or web address] 2 Each 3 03/31/2023 Active Polyethylene Glycol [...] as directed, through J-tube via feeding pump. 62185 mL 11 10/05/2023 Active Peptamen AF Oral Liquid Administer 1,000 mL over 12 hours into J tube 4 times a day. 93971 mL 11 09/30/2023 Active Enteral Feeding Piston [...] Encounter - Yumiko Cervantes OSA - 11/25/2023 9:09 AM EDT Please see the following message [...] PM EDT Office Visit Gastroenterology, [facility] [address] [place] [address] [place] [phone] Vicki Roberts PA-C 310 [place] [address] 12/17/2023 1:30 PM EDT Nurse Only Hematology/Oncology Treatment, [facility] 400 [facility] [address] [place], Chair11 Hem Onc 400 [place] [address] 12/24/2023 11:00 AM EDT Office Visit [facility] [place] [address] [place] [phone] Kinjal Reynoso PA-C 21 [place] [address] Health Maintenance Due Date Last Done Comments [...] this encounter Medical Devices Implanted Type Area Seaport Planning Manager Device Identifier Shelf Expiration Date Model / Serial / Lot Port Implant W/8f Poly Cath - [id number] Implanted:Qty : 1 on 05/18/2023 by Juan Jose Connell DO at OR [facility] Right: Chest CR BARD : PERIPHERAL VASCULAR [id number] 11/18/2024 [id number] / / [id number] documented as of this encounter Advance Directives [...] Advance Directives occurred with: Patient Care Teams Resource Forester Relationship Specialty Start Date End Date Kinjal Reynoso PA-C 21 [place] [address] PCP - General Physician Die Grinder 11/05/22 documented as of this encounter
--- OUTSIDE RECORDS SUMMARY | 2024-01-01 09:11 | External Medical Summary | Summary of Care ---
Author Name Unknown Organization [facility] Address [address] [place] [address] Phone [phone] Care Team Providers Care Steam Shovel Oiler Name Role Phone Kinjal Reynoso PA-C Primary Care Provider [phone] Reason for Visit * Reason Onset Date Comments Appointment 08/23/2023 Encounter Details Date Type Department Care Team (Late st Contact Info) Description 08/23/2023 Telephone Nutrition & Weight Management, [facility] [address] [place] [address] Kaity Yap RDN [address] [place] [address] Appointment Allergies Active Allergy Reactions Criticality Noted [...] as of this encounter (statuses as of 11/22/2023) Medications Medication Sig Dispensed Refills Start Date End Date Status Naloxone HCl 4 MG/0.1ML Nasal Liquid (Narcan Nasal)Indications :Chronic pelvic pain in female,MEDICATION USE AGREEMENT,Chronic abdominal pain ADMINISTER 1 SPRAY INTO 1 NOSTRIL FOR SUSPECTED OPIOID OVERDOSE - SEEK IMMEDIATE MEDICAL ATTENTION. [email or web address] 2 Each 3 03/31/2023 Active Polyethylene Glycol 3350 17 GM/SCOOP Oral Powder (MiraLax) Stir and dissolve 17 g (measuring line inisde of cap) in 4 to 8 ounces of any liquid and adminsiter into Gastric Tube in the morning and repeat same steps before bedtime. 238 g 1 05/24/2023 Active Acetaminophen 160 MG/5ML Oral Suspension (Tylenol)Indicati ons:Chronic pelvic pain in female,Gastropare sis,Malfunction of jejunostomy tube (HCC) Administer 31.2 mL into J tube every 8 hours as needed for Pain, Moderate. 472 mL 5 07/26/2023 Active Gabapentin 300 MG Oral Capsule (Neurontin) Take 1 Capsule by mouth in the morning and 1 Capsule at noon and 1 Capsule before bedtime. 08/12/2023 Active Promethazine HCl 25 MG Oral Tablet (Phenergan) Take 1 Tablet by mouth every 6 hours as needed for Nausea for up to 120 doses. 120 Tablet 08/15/2023 Active Peptamen 1.5 Oral Liquid Administer 1000 mL daily, as directed through J Tube via feeding pump 36576 mL 11 04/12/2023 4 Discontinue d(Patient preference/ discontinua tion) Lansoprazole 15 MG Oral Capsule Delayed Release 2 Capsules. 05/18/2023 4 Discontinue d(Patient preference/ discontinua tion) Lidocaine 5 % External Patch (Lidoderm) Place 1 patch to skin over 12 hours every 24 hours Remove patch after 12 hours.. 30 Patch 06/03/2023 4 Discontinue d(Patient preference/ discontinua tion) Gabapentin 100 MG Oral Capsule (Neurontin) Take 1 Capsule by mouth in the morning and 1 Capsule at noon and 1 Capsule before bedtime. Take with your 300 mg gabapentin capsule for total of 400 mg per dose.. 90 Capsule 08/16/2023 Discontinue d(Patient preference/ discontinua tion) oxyCODONE HCl 5 MG Oral Tablet (Oxy IR)Indications:Ch ronic pelvic pain in female,Gastropare sis,Malfunction of jejunostomy tube (HCC) Take 1 Tablet by mouth every 6 hours as needed for Pain, Severe (No more than 4 doses in 24 hours.). Must last 14 days. 54 Tablet 08/17/2023 4 Discontinue d(Refill) documented as of this encounter (statuses as of 11/22/2023) Active Problems Problem Noted Date Diagnosed Date [...] as of this encounter (statuses as of 11/22/2023) Resolved Problems Problem Noted Date Diagnosed Date [...] as of this encounter (statuses as of 11/22/2023) Immunizations Name Administration Dates Next Due DTaP Dipth/Tet/Acell Pertussis (Infanrix), Peds 01/18/2007,07/03/2002,04/18/2002,11/07 HIB PRP-OMP, 3 dose (Pedvax) 07/03/2002,04/18/20,2001 Hep A - Hepatitis A (ped/ado le, [...] encounter Miscellaneous Notes * Telephone Encounter - Babs Still OSA - 08/23/2023 4:37 PM EST Check out notes from vv on 08/23/23 with Fracisco. Return in about 1 month (around 09/23/2023) for Clinic Visit 1 m with GI provider Kale 1 m RYAN. LMOM documented in this encounter Plan of Treatment Upcoming Encounters Date Type Department Care Team (Late st Contact Info) Description 11/24/2023 11:40 AM EDT Office Visit [facility] 21 [facility] [place] [phone] Kinjal Reynoso PA-C 21 [facility] [place] [address] 11/29/2023 1:30 PM EDT Office Visit Gastroenterology, [facility] [address] [place] [phone] Vicki Roberts PA-C [address] [facility] [place] [address] 12/17/2023 1:30 PM EDT Nurse Only Hematology/Oncology Treatment, [facility] [address] [facility] [place] [address] [facility], Chair[address] Hem On[facility] [address] 12/24/2023 11:00 AM EDT Office Visit [facility] [place] [facility] [place] [phone] Kinjal Reynoso PA-C [facility] [address] Health Maintenance Due Date Last Done Comments [...] this encounter Medical Devices Implanted Type Area Furnace Installer Device Identifier Shelf Expiration Date Model / Serial / Lot Port Implant W/8f Poly Cath - [id number] Implanted:Qty : 1 on 05/18/2023 by Juan Jose Connell, at OR [facility] Right: Chest CR BARD : PERIPHERAL VASCULAR [id number] 11/18/2024 [id number] / / [id number] documented as of this encounter Advance Directives [...] Advance Directives occurred with: Patient Care Teams Steam Shovel Oiler Relationship Specialty Start Date End Date Kinjal Reynoso PA-C [address] [place] [address] PCP - General Physician Machine Sprayer 11/05/22 documented as of this encounter
--- OUTSIDE RECORDS SUMMARY | 2024-01-01 09:11 | External Medical Summary | Summary of Care ---
Author Name Unknown Organization [facility] Address [address] [place] [address] Phone [phone] Care Team Providers Care Literacy Tutor Name Role Phone Kinjal Reynoso PA-C Primary Care Provider [phone] Reason for Visit * Reason Onset Date Comments Advice 11/22/2023 Encounter Details Date Type Department Care Team (Late st Contact Info) Description 11/22/2023 Telephone [facility] 21 [facility] [place] [address] Kinjal Reynoso PA-C 21 [facility] [place] [address] Advice Allergies Active Allergy [...] OPIOID OVERDOSE - SEEK IMMEDIATE MEDICAL ATTENTION. [email or web address] 2 Each 3 03/31/2023 Active Polyethylene Glycol 3350 17 GM/SCOOP Oral Powder (MiraLax) Stir and dissolve 17 g (measuring line inisde of cap) in 4 to 8 ounces of any liquid and adminsiter into Gastric Tube in the morning and repeat same steps before bedtime. 238 g 1 05/24/2023 Active Acetaminophen 160 MG/5ML Oral Suspension (Tylenol)Indications :Chronic pelvic pain in female,Gastroparesis ,Malfunction of jejunostomy tube (HCC) Administer 31.2 mL [...] as directed, through J-tube via feeding pump. 22067 mL 11 10/05/2023 Active Peptamen AF Oral Liquid Administer 1,000 mL over 12 hours into J tube 4 times a day. 49770 mL 11 09/30/2023 Active Enteral Feeding Piston [...] Continuation of Care 560 mL 11/22/2023 Active documented as of this encounter (statuses [...] encounter Miscellaneous Notes * Telephone Encounter - Deng Armando LPN - 11/22/2023 1:58 PM EDT Appt scheduled. * Telephone Encounter - Kinjal Reynoso PA-C - 11/22/2023 1:21 PM EDT I or Dr. Leonard can place non-absorbable sutures to hold tub in place. Please have pt schedule. Otherwise, she could try an Hipolito wrap around her abdomen in a way that holds J-tube in place against herabdomen. * Telephone Encounter - Barb Carpio LPN - 11/22/2023 12:50 PM EDT Pt is calling. Reports that the stitches to her jtube came undone shortly after the procedure in September. Had one stitch to each side of Jtube. Now the jtube is starting to pull away from her skin and would like it stitched. Jtube is still intact and works as it should. Denies pain at tube site. Is able to push it back in but soon as she lets go, it pulls away from her skin. Jtube does have a balloon but is worried it will eventually start hurting from it coming out and pushing it back in. Is asking if this could be done in PCP's office since surgeon is in [place], Unless there is any other way she could hold it into place? Called PCP office, spoke with deng and made her aware. Please advise. documented in this encounter Plan of Treatment Upcoming Encounters Date Type Department Care Team (Late st Contact Info) Description 11/24/2023 11:40 AM EDT Office Visit [facility] 21 [facility] [place] [address] Kinjal Reynoso PA-C 21 [facility] [place] [address] 11/29/2023 1:30 PM EDT Office Visit Gastroenterology, [facility] 310 [facility] [place] [phone] Vicki Roberts PA-C 310 [facility] [place] [address] 12/17/2023 1:30 PM EDT Nurse Only Hematology/Oncology Treatment, [address] [place] [address] [facility], Chair11 Hem Onc [address] [place] [address] 12/24/2023 11:00 AM EDT Office Visit [facility] [place] [address] [place] [phone] Kinjal Reynoso PA-C [address] [place] [address] Health Maintenance Due Date Last Done Comments [...] this encounter Medical Devices Implanted Type Area Civil Engineering Designer Device Identifier Shelf Expiration Date Model / Serial / Lot Port Implant W/8f Poly Cath - [id number] Implanted:Qty : 1 on 05/18/2023 by Juan Jose Connell, at OR [facility] Right: Chest CR BARD : PERIPHERAL VASCULAR [id number] 11/18/2024 [id number] / / [id number] documented as of this encounter Advance Directives [...] Advance Directives occurred with: Patient Care Teams Literacy Tutor Relationship Specialty Start Date End Date Kinjal Reynoso PA-C [address] [place] [address] PCP - General Physician Windows Phone Developer 11/05/22 documented as of this encounter
--- OUTSIDE RECORDS SUMMARY | 2024-01-01 09:11 | External Medical Summary | Summary of Care ---
Author Name Unknown Organization [facility] Address [address] [place] [address] Phone [phone] Care Team Providers Care Thermoplastic Technician Name Role Phone Kinjal Reynoso PA-C Primary Care Provider [phone] Reason for Visit * Reason Comments Abdominal Pain * Auth/Cert Specialty Diagnoses / Procedures Referred By Contdulce t Referred To Contact [facility] [address] [place] [address] Phone: [phone] Emergency Medicine [address] [address] Referral ID Status Reason Start Date Expiration Date Visits Re quested Visits Authorized [id number] Encounter Details Date Type Department Care Team ([facility] Contact Info) Description 11/23/2023 7:41 PM EDT - 11/24/2023 12:41 AM EDT Emergency [facility] Emergency Department ([facility]) [address] [place] [address] Gabriela Liz MD [address] [place] [address] RLQ abdominal pain (Primary Dx); Complex ovarian cyst Discharge Disposition: Home - Self Care Allergies [...] as of this encounter (statuses as of 11/24/2023) Medications Medication Sig Dispensed Refills Start Date End Date Status Naloxone HCl 4 MG/0.1ML Nasal Liquid (Narcan Nasal)Indications:C hronic pelvic pain in female,MEDICATION USE AGREEMENT,Chronic abdominal pain ADMINISTER 1 SPRAY INTO 1 NOSTRIL FOR SUSPECTED OPIOID OVERDOSE - SEEK IMMEDIATE MEDICAL ATTENTION. [email or web address] Each 3 03/31/2023 Active Polyethylene Glycol [...] as directed, through J-tube via feeding pump. 40676 mL 11 10/05/2023 Active Peptamen AF Oral Liquid Administer 1,000 mL over 12 hours into J tube 4 times a day. 51740 mL 11 09/30/2023 09/25/19 25 Active Enteral Feeding Piston [...] 11/22/2023 Active Acetaminophen 160 MG/5ML Oral Suspension (Tylenol)Indication s:Chronic pelvic pain in female,Gastroparesi s,Malfunction of jejunostomy tube (HCC) Administer 31.2 mL into J tube every 8 hours as needed for Pain, Moderate. 472 mL 5 07/26/2023 11/24/19 Discontinu ed(Refill) Gabapentin 300 MG Oral Capsule (Neurontin) Take 1 Capsule by mouth in the morning and 1 Capsule at noon and 1 Capsule before bedtime. 08/12/2023 11/24/19 24 Discontinu ed(Patient preference /discontin uation) documented as of this encounter (statuses as of 11/24/2023) Active Problems Problem Noted Date Diagnosed Date [...] as of this encounter (statuses as of 11/24/2023) Resolved Problems Problem Noted Date Diagnosed Date [...] as of this encounter (statuses as of 11/24/2023) Immunizations Name Administration Dates Next Due DTaP [...] Sign Reading Time Taken Comments Blood Pressure 125/84 11/24/2023 12:24 AM EDT Pulse 95 11/24/2023 12:24 AM EDT Temperature 36.5 C (97.7 F) 11/23/2023 7:36 PM ED T Respiratory Rate 20 11/24/2023 12:2 4 AM EDT Oxygen Saturation 100% 11/23/2023 7:36 PM EDT Inhaled Oxygen Concentration - - Weight 74.3 kg (163 lb 11.2 oz) 11/23/2023 7:36 PM EDT Height 157.5 cm (5' 2") 11/23/2023 7:36 PM EDT Body Mass Index 29.94 11/23/2023 7:36 PM EDT documented in this [...] this encounter Discharge Instructions * Discharge Instructions* Gabriela Liz MD - 11/24/2023 12:17 AM EDT Your laboratory workup was negative for any acute pathology. Your urine did show you have some bacteria in your urine, but we will await urine culture before initiating antibiotics, as you are not having any urinary tract infection symptoms. Please continue to take your pain medication as prescribed. Return to the emergency department if you develop worsening pain, vomiting, inability to tolerateoral intake or your tube feeds, or any new or worsening symptoms. You are noted to have a complex cyst on your right ovary that measures 3.1 cm. You will need close follow up with OB Gyne. documented in this encounter ED Notes * Gabriela Liz MD - 11/23/2023 11:12 PM EDT HISTORY OF PRESENT ILLNESS: Patient is a 23-year-old female presenting with right lower quadrant abdominal pain. Patient reports pain started earlier today. She was complaining of pain around her J-tube insertion site. She reports she took an oxycodone and 1800. Denies any vomiting but does report nausea. Denies any fevers. Denies any dysuria or hematuria. She has had a hysterectomy but still has her ovaries. Denies any vaginal bleeding or discharge. ROS: as above The patient's allergies, past history, and medications were reviewed. PHYSICAL EXAM: ED Vitals: 11/23/23 1936 11/23/23 2005 11/23/23 2114 11/23/23 2214 BP: 135/93 114/63 134/72 132/69 Pulse: 95 98 92 86 Resp: 18 18 17 18 Temp: 36.5 C (97.7 F) TempSrc: Temporal Artery SpO2: 100% Weight: 74.3 kg (163 lb 11.2 oz) Height: 1.575 m (5' 2") 11/23/23 2320 11/24/23 0024 BP: 118/65 125/84 Pulse: 85 95 Resp: 20 20 Temp: TempSrc: SpO2: Weight: Height: Constitutional: Patient appears in no acute distress. HENT: Head: Normocephalic and atraumatic. Eyes: EOMI, PERRL Mouth/Throat: Mucous membranes moist. Neck: Trachea midline. Neck supple. Cardiovascular: RRR, No murmurs, rubs or gallops. Intact distal pulses. Pulmonary/Chest: No respiratory distress. Breath sounds clear and equal bilaterally. No wheezes or rales. Abdominal: Abdomen soft, no tenderness, rebound or guarding. J tube in RLQ. TTP diffusely around J tube. Musculoskeletal: No edema, tenderness or deformity noted. Skin: Warm and dry. No rash, erythema, pallor or cyanosis Psychiatric: Appropriate mood and affect for situation. Neurological: Alert and keenly responsive. CN II-XII grossly intact, moving all extremities equallyand fully. PROCEDURES AND TREATMENTS ED Orders | ED Results MDM: - Vitals signs stable - History obtained via patient. History as above. - Chronic conditions affecting care: endometriosis; GERD; PTSD; gastroparesis - Differential diagnoses include, but are not limited to: appendicitis; diverticulitis; ovarian cyst; ovarian torsion; ureteral calculi - Order placed for continuous cardiac monitoring. At this time, monitor showed rate of 90 bpm with normal sinus rhythm, per my interpretation. - External medical records reviewed. - Laboratory workup interpreted by myself showed normal WBC; stable electrolytes; normal lipase - UA showed bacteria, but no significant leukocyte esterase or nitrite positivity. Patient not having any urinary symptoms. Will not treat for UTI at this time and await cultures. - CT abdomen/pelvis with IV contrast showed no acute pathology other than a 3.3 cm complex cyst in the right ovary concerning for hemorrhagic cyst. - Transabdominal US showed 3.1 cm cyst on right ovary. No evidence of torsion - Patient initially given 1L NS, 4 mg IV zofran and 50 mcg IV fentanyl. On reassessment, she reports she was feeling improved but is requesting her home scheduled dose of oxycodone. Given oxycodone 5mg. - Discussed results with the patient. Instructed on return precautions. Recommended close follow upwith OB/Gynecology - Patient remained stable throughout the visit. Results were discussed with the patient and patient's family. They were given the opportunity to ask questions. Had lengthy discussion with patient about supportive care return precautions. No new prescriptions. No changes to medications. Patient to follow up with primary care physician for further evaluation and management. All questions answered. P atient agreeable plan. ASSESSMENT AND PLAN: Diagnosis: ICD-10-CM 1. RLQ abdominal pain R10.31 2. Complex ovarian cyst N83.299 Disposition: discharge Gabriela Liz MD * Vivek Herring RN - 11/23/2023 7:34 PM EDT Pt c/o pain around g-tube site. Pt did take oxycodone at 1800. documented in this encounter Miscellaneous Notes * ED Registered Dental Hygienist Note - Kaylyn Aguayo RN - 11/24/2023 12:40 AM EDT Pt verbalized understanding of D/C instructions. Aware to follow up with OBGYN and advised of return precautions. All questions and concerns answered and addressed at this time. Advised not to drive home. Pt ambulated from ED with steady gait. * Pt Handout (on AVS) - Gabriela Liz MD - 11/24/2023 12:16 AM EDT Images from the original note were not included. [id number] Ovarian Cysts The ovaries are 2 small organs located on each side of the womb (uterus). They are part of the female reproductive system. Ovarian cysts are sacs filled with fluid or tissue that forms on or inside the ovaries. Ovarian cysts are common, especially during childbearing years. There are different types of cysts.Most are harmless (benign) and go away on their own. They often cause no symptoms. If symptoms do occur, they can include mild pain or pressure in the lower belly (abdomen). Cysts that are large can break (rupture) and bleed. This is called a hemorrhagic cyst. This may cause more severe pain and symptoms. In these cases, you may need hospital care or treatment, such as surgery. You may need more extensive treatment if a cyst causes an ovary to twist (called torsion) orif your healthcare provider suspects your cyst is cancerous. Keep in mind that most cysts are not cancerous, however. General care To help relieve pain, your healthcare provider may recommend using [id number]-[id number] pain medicine. If needed, your provider may prescribe stronger pain medicine. Using heat may help relieve your pain. Consider using a heating pad set on low or warm water bottle to relieve discomfort. Taking a warm bath may help you feel more comfortable. Depending on the type of cyst you have, your healthcare provider may advise taking controlpills. These help shrink cysts in certain cases. They may also help prevent new cysts from forming.Be sure to take these medicines as directed if they are prescribed. Your healthcare provider may advise you to watch your symptoms over time to see if they go away or worsen. Regular ultrasound tests may also be advised. These can help check if a cyst goes away orgrows in size. Follow-up care Follow up with your healthcare provider, or as advised. When to get medical advice Call your healthcare provider right away if any of these occur: Pain gets worse or doesn't get better with home treatment Fever of 100.4F (38C) or higher, or as directed by your healthcare provider Nausea and vomiting Weakness, dizziness, or fainting Abnormal vaginal bleeding Last Reviewed Date: 06/21/202219991770-4609 [employer]. All rights reserved. This information is not intended as a substitute for professional medical care. Always follow your healthcare professional's instructions. * ED Registered Dental Hygienist Note - Leah Espinal RN - 11/24/2023 12:04 AM EDT Patient medicated per MAR. Denying any needs at this time. Call lopez within reach documented in this encounter Plan of Treatment Upcoming Encounters Date Type Department Care Team (Late st Contact Info) Description 11/29/2023 1:30 PM EDT Office Visit Gastroenterology, [facility] [address] [facility] [place] [address] Vicki Roberts PA-C [address] [place] [address] 12/17/2023 1:30 PM EDT Nurse Only Hematology/Oncology Treatment, [facility] [address] [place] [address] [address] Hem Onc [address] [place] [address] 12/24/2023 11:00 AM EDT [facility] [address] [facility] [phone] Kinjal Reynoso PA-C [address] [facility] [place] [address] Pending Results Name Type Priority Associated Diagnoses Date /Time CULTURE, URINE, QUANTITATIVE Lab STAT 11/23/2023 8:25 PM EDT Scheduled Orders Name Type Priority Associated Diagnoses Orde r Schedule CULTURE, URINE, QUANTITATIVE Lab STAT One Time for 1 Occurrences starting 11/23/2023 until 11/23/2023 Health Maintenance Due Date Last Done Comments [...] this encounter Medical Devices Implanted Type Area Airbrush Artist Photography Device Identifier Shelf Expiration Date Model / Serial / Lot Port Implant W/8f Poly Cath - [id number] Implanted:Qty : 1 on 05/18/2023 by Juan Jose Connell DO at OR [facility] Right: Chest CR BARD : PERIPHERAL VASCULAR [id number] 11/18/2024 [id number] / / [id number] documented as of this encounter Procedures Procedure Name Priority Date/Time Associated Diagnosis Comments US PELVIS TRANS-ABDOMINAL Routine 11/23/2023 11:[address] ABD/PELVIS W IV CONTRAST - WO ORAL CONTRAST STAT 11/23/2023 9:45 PM EDT DIFFERENTIAL, AUTOMATED STAT 11/23/2023 9:15 PM EDT CBC STAT 11/23/2023 9:15 PM EDT CBC STAT 11/23/2023 9:15 PM EDT URINALYSIS, REFLEX TO CULTURE STAT 11/23/2023 8:25 PM EDT URINALYSIS, REFLEX TO CULTURE (CUP ONLY) STAT 11/23/2023 8:25 PM EDT URINALYSIS, REFLEX TO CULTURE (NOT FOR NEUTROPENIC PATIENTS) STAT 11/23/2023 8:25 PM EDT LACTATE WITH REFLEX IF ABNORMAL STAT 11/23/2023 8:22 PM EDT HEPATIC FUNCTION PANEL STAT 11/23/2023 8:22 PM EDT BASIC METABOLIC PANEL STAT 11/23/2023 8:22 PM EDT LIPASE STAT 11/23/2023 8:22 PM EDT documented in this encounter Results * US PELVIS TRANS-ABDOMINAL (11/23/2023 11:19 PM EDT) Anatomical Region Laterality Modality Pelvis, Body Ultrasound 11/23/2023 11:0 3 PM EDT Impressions 11/23/2023 11:36 PM EDT IMPRESSION: 1. Hysterectomy. 2. 3.1 cm slightly complex cyst in the right ovary. Unremarkable left ovary. 3. No evidence of ovarian torsion. THIS DOCUMENT HAS BEEN ELECTRONICALLY SIGNED BY TOYIN GABRIEL MD Narrative 11/23/2023 11:36 PM EDT PROCEDURE INFORMATION: Exam: US Pelvis Complete, Transabdominal and US Duplex Artery and Vein, Ovaries, Complete Exam date and time: 11/23/2023 11:03 PM Age: 23 years old Clinical indication: Abdominal pain; Right lower quadrant; Prior surgery; Surgery date: 6+ months; Surgery type: Hysterectomy for endometriosis; Additional info: Rlq pain; R/O torsion TECHNIQUE: Imaging protocol: Real-time transabdominal pelvic ultrasound (non-obstetric) with image documentation. Real-time duplex ultrasound scan of the arterial and venous flow of the ovaries with B-mode, color Doppler flow and spectral waveform analysis. Complete pelvic ultrasound. Complete duplex. Duplex exam was performed to evaluate for torsion and other vascular conditions. COMPARISON: US PELVIS TRANS-VAGINAL NON-OB 02/02/2023 6:[address] abdomen and pelvis 11/23/2023. FINDINGS: Uterus: Hysterectomy. Right ovary/adnexa: Right ovary measures 5.6 x 3.7 x 3.4 cm and contains a 3.1 x 3 x 3.1 cm cyst with mild internal debris . Normal arterial and venous flow seen. Left ovary/adnexa: Left ovary is normal in size and echogenicity measuring 2.4 x 2.2 x 2.3 cm. Normal arterial and venous flow seen. Intraperitoneal space: No free fluid. Urinary bladder: Bladder is unremarkable. Procedure Note Toyin Gabriel MD - 11/23/2023 PROCEDURE INFORMATION: Exam: US Pelvis Complete, Transabdominal and US Duplex Artery and Vein, Ovaries, Complete Exam date and time: 11/23/2023 11:03 PM Age: 23 years old Clinical indication: Abdominal pain; Right lower quadrant; Prior surgery; Surgery date: 6+ months; Surgery type: Hysterectomy for endometriosis; Additional info: Rlq pain; R/O torsion TECHNIQUE: Imaging protocol: Real-time transabdominal pelvic ultrasound(non-obstetric) with image documentation. Real-time duplex ultrasound scan of the arterialand venous flow of the ovaries with B-mode, color Doppler flow and spectral waveform analysis. Complete pelvic ultrasound. Complete duplex. Duplexexam was performed to evaluate for torsion and other vascular conditions. COMPARISON: US PELVIS TRANS-VAGINAL NON-OB 02/02/2023 6:[address] abdomen and pelvis 11/23/2023. FINDINGS: Uterus: Hysterectomy. Right ovary/adnexa: Right ovary measures 5.6 x 3.7 x 3.4 cm and contains a3.1 x 3 x 3.1 cm cyst with mild internal debris . Normal arterial and venousflow seen. Left ovary/adnexa: Left ovary is normal in size and echogenicity measuring2.4 x 2.2 x 2.3 cm. Normal arterial and venous flow seen. Intraperitoneal space: No free fluid. Urinary bladder: Bladder is unremarkable. IMPRESSION IMPRESSION: 1. Hysterectomy. 2. 3.1 cm slightly complex cyst in the right ovary. Unremarkable leftovary. 3. No evidence of ovarian torsion. THIS DOCUMENT HAS BEEN ELECTRONICALLY SIGNED BY TOYIN GABRIEL MD Gabriela Liz MD RAD ULTRASOU ND * CT ABD/PELVIS W IV CONTRAST - WO ORAL CONTRAST (11/23/2023 9:45 PM EDT) Anatomical Region Laterality Modality Body, Abdomen, Pelvis Computed T omography 11/23/2023 9:26 PM EDT Impressions 11/23/2023 10:38 PM EDT IMPRESSION: No inflammation or collection around the jejunal feeding tube insertion site. Bowel appears unremarkable. Trace free fluid in the pelvis and 3.3 cm complex cystic finding in the right ovary suspicious for hemorrhagic cyst. THIS DOCUMENT HAS BEEN ELECTRONICALLY SIGNED BY TOYIN GABRIEL MD Narrative 11/23/2023 10:38 PM EDT PROCEDURE INFORMATION: Exam: CT Abdomen And Pelvis With Contrast Exam date and time: 11/23/2023 9:26 PM Age: 23 years old Clinical indication: Abdominal pain; Prior surgery; Surgery date: 6+ months; Surgery type: J tube; Additional info: Rlq pain; Pain around j tube TECHNIQUE: Imaging protocol: Computed tomography of the abdomen and pelvis with contrast. Radiation optimization: All CT scans at this facility use at least one of these dose optimization techniques: automated exposure control; mA and/or kV adjustment per patient size (includes targeted exams where dose is matched to clinical indication); or iterative reconstruction. Contrast material: ISOVUE 370; Contrast volume: 80 ml; Contrast route: INTRAVENOUS (IV); COMPARISON: CT ABD/PELVIS W IV AND W ORAL CONTRAST 08/16/2023 2:09 AM FINDINGS: Tubes, catheters and devices: A jejunal feeding catheter is seen entering the right upper abdomen with balloon within a right lateral abdominal small bowel loop. Lungs: Lung bases are clear. Liver: Normal. No mass. Gallbladder and bile ducts: Normal. No calcified stones. No ductal dilation. Pancreas: Normal. No ductal dilation. Spleen: Normal. No splenomegaly. Adrenal glands: Normal. No mass. Kidneys and ureters: Kidneys enhance symmetrically. No stones or hydronephrosis. Stomach and bowel: Stomach and small bowel are unremarkable. Unremarkable colon. Appendix: Appendectomy. Intraperitoneal space: Mild free fluid in the pelvis. No free air. Vasculature: Unremarkable. No abdominal aortic aneurysm. Lymph nodes: Unremarkable. No enlarged lymph nodes. Urinary bladder: Unremarkable as visualized. Reproductive: Hysterectomy. 3.3 cm hypodense finding in the right adnexal region which may be a complex ovarian cyst but is incompletely characterized. There is a surgical clip in the right adnexal region as wellLeft ovary is unremarkable. Bones/joints: Unremarkable. No acute fracture. Soft tissues: No subcutaneous collection or inflammation noted around the jejunostomy site.Postsurgical changes seen in the midline abdomen. Procedure Note Toyin Gabriel MD - 11/23/2023 PROCEDURE INFORMATION: Exam: CT Abdomen And Pelvis With Contrast Exam date and time: 11/23/2023 9:26 PM Age: 23 years old Clinical indication: Abdominal pain; Prior surgery; Surgery date: 6+months; Surgery type: J tube; Additional info: Rlq pain; Pain around j tube TECHNIQUE: Imaging protocol: Computed tomography of the abdomen and pelvis withcontrast. Radiation optimization: All CT scans at this facility use at least one ofthese dose optimization techniques: automated exposure control; mA and/or kV adjustment per patient size (includes targeted exams where dose is matchedto clinical indication); or iterative reconstruction. Contrast material: ISOVUE 370; Contrast volume: 80 ml; Contrast route: INTRAVENOUS (IV); COMPARISON: CT ABD/PELVIS W IV AND W ORAL CONTRAST 08/16/2023 2:09 AM FINDINGS: Tubes, catheters and devices: A jejunal feeding catheter is seen enteringthe right upper abdomen with balloon within a right lateral abdominal smallbowel loop. Lungs: Lung bases are clear. Liver: Normal. No mass. Gallbladder and bile ducts: Normal. No calcified stones. No ductaldilation. Pancreas: Normal. No ductal dilation. Spleen: Normal. No splenomegaly. Adrenal glands: Normal. No mass. Kidneys and ureters: Kidneys enhance symmetrically. No stones or hydronephrosis. Stomach and bowel: Stomach and small bowel are unremarkable. Unremarkable colon. Appendix: Appendectomy. Intraperitoneal space: Mild free fluid in the pelvis. No free air. Vasculature: Unremarkable. No abdominal aortic aneurysm. Lymph nodes: Unremarkable. No enlarged lymph nodes. Urinary bladder: Unremarkable as visualized. Reproductive: Hysterectomy. 3.3 cm hypodense finding in the right adnexal region which may be a complex ovarian cyst but is incompletelycharacterized. There is a surgical clip in the right adnexal region as wellLeft ovary is unremarkable. Bones/joints: Unremarkable. No acute fracture. Soft tissues: No subcutaneous collection or inflammation noted around the jejunostomy site.Postsurgical changes seen in the midline abdomen. IMPRESSION IMPRESSION: No inflammation or collection around the jejunal feeding tube insertionsite. Bowel appears unremarkable. Trace free fluid in the pelvis and 3.3 cm complex cystic finding in theright ovary suspicious for hemorrhagic cyst. THIS DOCUMENT HAS BEEN ELECTRONICALLY SIGNED BY TOYIN GABRIEL MD Gabriela Liz MD RAD CT * (ABNORMAL) DIFFERENTIAL, AUTOMATED (11/23/2023 9:15 PM EDT) WBC 5.34 4.00 - 10.80 K/uL 11/23/2023 9:20 PM EDT [facility] Neutrophils % 34.2(L) 40.0 - 75.0 % 11/23/2023 9:20 PM EDT [facility] Lymphocytes % 55.1(H) 18.0 - 42.0 % 11/23/2023 9:20 PM EDT [facility] Monocytes % 8.4 1.0 - 11.0 % 11/23/2023 9:20 PM EDT [facility] Eosinophils % 1.5 0.0 - 6.0 % 11/23/2023 9:20 PM EDT [facility] Basophils % 0.4 0.0 - 2.0 % 11/23/2023 9:20 PM EDT [facility] Immature Granulocytes % 0.4 0.0 - 2.0 % 11/23/2023 9:20 PM EDT [facility] Absolute Neutrophils 1.83 1.80 - 7.70 K/uL 11/23/2023 9:20 PM EDT [facility] Absolute Lymphocytes 2.94 1.00 - 4.80 K/ul 11/23/2023 9:20 PM EDT [facility] Absolute Monocytes 0.45 0.00 - 1.10 K/uL 11/23/2023 9:20 PM EDT [facility] Absolute Eosinophils 0.08 0.00 - 0.70 K/uL 11/23/2023 9:20 PM EDT [facility] Absolute Basophils 0.02 0.00 - 0.20 K/uL 11/23/2023 9:20 PM EDT [facility] Absolute Immature Granulocytes 0.02 0.00 - 0.20 K/uL 11/23/2023 9:20 PM EDT LABORATORY GL Blood Venous blood specimen / Unknown Venipuncture / Unknown 11/23/2023 9:15 PM EDT 11/23/2023 9:17 PM EDT Gabriela Liz MD LAB BLOOD OR DERABLES LABORATORY [facility] [address] [place] [address] * CBC (11/23/2023 9:15 PM EDT) WBC 5.34 4.00 - 10.80 K/uL 11/23/2023 9:20 PM EDT LABORATORY [facility] RBC 4.02 3.85 - 5.15 M/uL 11/23/2023 9:20 PM EDT LABORATORY [facility] HGB 12.6 12.0 - 15.3 g/dL 11/23/2023 9:20 PM EDT LABORATORY [facility] HCT 36.3 36.0 - 45.2 % 11/23/2023 9:20 PM EDT LABORATORY [facility] MCV 90.3 81.5 - 97.5 fL 11/23/2023 9:20 PM EDT LABORATORY [facility] MCH 31.3 27.0 - 34.0 pg 11/23/2023 9:20 PM EDT LABORATORY [facility] MCHC 34.7 32.0 - 36.0 g/dL 11/23/2023 9:20 PM EDT LABORATORY [facility] RDW 12.4 11.5 - 15.5 % 11/23/2023 9:20 PM EDT LABORATORY [facility] PLT 213 140 - 400 K/uL 11/23/2023 9:20 PM EDT LABORATORY [facility] MPV 10.5 6.6 - 11.1 fL 11/23/2023 9:20 PM EDT LABORATORY [facility] nRBCs 0 <=0 /100 WBCs 11/23/2023 9:20 PM EDT LABORATORY [facility] Blood Venous blood specimen / Unknown Venipuncture / Unknown 11/23/2023 9:15 PM EDT 11/23/2023 9:17 PM EDT Gabriela Liz MD LAB BLOOD OR DERABLES LABORATORY [facility] [address] [place] [address] * (ABNORMAL) URINALYSIS, REFLEX TO CULTURE (11/23/2023 8:25 PM EDT) Color, Urine Yellow Light Yellow, Yellow, Dark Yellow 11/23/2023 9:05 PM EDT [facility] Clarity, Urine Clear Clear 11/23/2023 9:05 PM EDT [facility] Glucose, Urine Negative Negative mg/dL 11/23/2023 9:05 PM EDT [facility] Bilirubin, Urine Negative Negative 11/23/2023 9:05 PM EDT [facility] Ketone, Urine Negative Negative mg/dL 11/23/2023 9:05 PM EDT [facility] Specific [place], Urine 1.023 1.003 - 1.030 11/23/2023 9:05 PM EDT LABORATORY GL Blood, Urine Negative Negative 11/23/2023 9:05 PM EDT LABORATORY GL pH, Urine 5.5 5.0 - 7.5 Units 11/23/2023 9:05 PM EDT LABORATORY GLH Protein, Urine Negative Negative mg/dL 11/23/2023 9:05 PM EDT LABORATORY [facility] Urobilinogen, Urine 0.2 0.2, 1.0 mg/dL 11/23/2023 9:05 PM EDT LABORATORY [facility] Nitrite, Urine Negative Negative 11/23/2023 9:05 PM EDT LABORATORY [facility] Esterase, Urine Negative Negative 11/23/2023 9:05 PM EDT LABORATORY [facility] RBC, Urine 0-2 0 - 2 /HPF 11/23/2023 9:05 PM EDT LABORATORY [facility] WBC, Urine 3-5(A) 0 - 2 /HPF 11/23/2023 9:05 PM EDT LABORATORY [facility] Bacteria, Urine >200(A) 0 - 25 /HPF 11/23/2023 9:05 PM EDT LABORATORY [facility] Squamous Epithelial Cells, Urine Many(A) None /HPF 11/23/2023 9:05 PM EDT LABORATORY [facility] Culture, Urine 11/23/2023 9:05 PM EDT LABORATORY [facility] Comment:Quantitative urine c ulture to be performed Urine Urine specimen obtained by clean catch procedure / Unknown Non-blood Collection / Unknown 11/23/2023 8:25 PM EDT 11/23/2023 8:29 PM EDT Gabriela Liz MD LAB URINE OR DERABLES Performing Organization Address City/[facility]/ZIP Co de Phone Number LABORATORY [address] [address] * URINALYSIS, REFLEX TO CULTURE (CUP ONLY) (11/23/2023 8:25 PM EDT) Urinalysis, Reflex to Culture Specimen Specimen collected and received 11/23/2023 10:01 PM EDT LABORATORY [facility] Urine Urine specimen obtained by clean catch procedure / Unknown Non-blood Collection / Unknown 11/23/2023 8:25 PM EDT 11/23/2023 8:29 PM EDT Gabriela Liz MD LAB URINE OR DERABLES Performing Organization Address [facility] Co de Phone Number LABORATORY [address] [address] * LIPASE (11/23/2023 8:22 PM EDT) Lipase 28 13 - 60 U/L 11/23/2023 8:58 PM EDT LABORATORY [facility] Blood Venous blood specimen / Unknown Venipuncture / Unknown 11/23/2023 8:22 PM EDT 11/23/2023 8:29 PM EDT Gabriela Liz MD LAB BLOOD OR DERABLES Performing Organization Address City/[facility] Co de Phone Number LABORATORY [address] [address] * LACTATE WITH REFLEX IF ABNORMAL (11/23/2023 8:22 PM EDT) Lactate 1.9 0.4 - 2.0 mmol/L 11/23/2023 8:52 PM EDT LABORATORY [facility] Blood Venous blood specimen / Unknown Venipuncture / Unknown 11/23/2023 8:22 PM EDT 11/23/2023 8:29 PM EDT Gabriela iLz MD LAB BLOOD OR DERABLES Performing Organization Address City/[facility]/ZIP Co de Phone Number LABORATORY [address] [address] * HEPATIC FUNCTION PANEL (11/23/2023 8:22 PM EDT) Pathologist [facility] Albumin 4.3 3.8 - 5.0 g/dL 11/23/2023 8:58 PM EDT LABORATORY [facility] AST 23 10 - 35 U/L 11/23/2023 8:58 PM EDT LABORATORY [facility] Comment:Result may be falsel y elevated due to hemolysis. Alkaline Phosphatase 84 35 - 130 U/L 11/23/2023 8:58 PM EDT LABORATORY [facility] ALT 10 10 - 35 U/L 11/23/2023 8:58 PM EDT LABORATORY [facility] Bilirubin, Total 0.2 <=1.2 mg/dL 11/23/2023 8:58 PM EDT LABORATORY [facility] Bilirubin, Direct <0.2 0.0 - 0.3 mg/dL 11/23/2023 8:58 PM EDT LABORATORY [facility] Comment:Result may be falsel y decreased due to hemolysis. Protein 7.3 6.0 - 8.3 g/dL 11/23/2023 8:58 PM EDT LABORATORY [facility] Blood Venous blood specimen / Unknown Venipuncture / Unknown 11/23/2023 8:22 PM EDT 11/23/2023 8:29 PM EDT Gbariela Liz MD LAB BLOOD OR DERABLES Performing Organization Address City/[facility]/ZIP Co de Phone Number LABORATORY [address] [address] * (ABNORMAL) BASIC METABOLIC PANEL (11/23/2023 8:22 PM EDT) BUN 11 6 - 20 mg/dL 11/23/2023 8:58 PM EDT LABORATORY [facility] Creatinine 0.6 0.5 - 1.0 mg/dL 11/23/2023 8:58 PM EDT LABORATORY [facility] Estimated Glomerular Filtration Rate >90 >=60 mL/min 11/23/2023 8:58 PM EDT LABORATORY [facility] Comment:eGFR is calculated b ased on the CKD-EPI 2020 equation Sodium 138 135 - 146 mmol/L 11/23/2023 8:58 PM EDT LABORATORY GL[facility] Potassium 4.6 3.5 - 5.1 mmol/L 11/23/2023 8:58 PM EDT LABORATORY [facility] Chloride 104 98 - 107 mmol/L 11/23/2023 8:58 PM EDT LABORATORY [facility] CO2 20(L) 22 - 32 mmol/L 11/23/2023 8:58 PM EDT LABORATORY [facility] Anion Gap 14 7 - 15 mmol/L 11/23/2023 8:58 PM EDT LABORATORY [facility] Glucose 94 70 - 120 mg/dL 11/23/2023 8:58 PM EDT LABORATORY [facility] Calcium 9.6 8.4 - 10.2 mg/dL 11/23/2023 8:58 PM EDT LABORATORY [facility] Blood Venous blood specimen / Unknown Venipuncture / Unknown 11/23/2023 8:22 PM EDT 11/23/2023 8:29 PM EDT Gabriela Liz MD LAB BLOOD OR DERABLES LABORATORY GL [address] [place] [address] documented in this encounter Visit Diagnoses Diagnosis RLQ abdominal pain- Primary Abdominal pain, right lower quadrant Complex ovarian cyst Other and unspecified ovarian cyst documented in this encounter Administered Medications Inactive Administered Medications - up to 3 most recent administrations Medication Order MAR Action Action Date Dose Rate Site fentaNYL (PF) inj 50 mcg 50 mcg, Intravenous, ONCE, On Wed11/23/23 at 5, For 1 dose, When given IV Push its recommended that the dose be given over 3 to 5 minutes. Given 11/23/2023 9:23 PM EDT 50 mcg Iopamidol (Isovue 370) inj 80 mL 80 mL, Intravenous, ONCE, On Wed11/23/23 at 2230, For 1 dose, Radiology Medication Routing (Non-IR) Given 11/23/2023 10:30 PM EDT 80 mL NSS 0.9% 1,000 mL bolus infusion Intravenous, at 1,000 mL/hr Administer over 60 Minutes, Administer entire volume within 60 minutes or less., ONCE, 1 dose, On Wed11/23/23 at 2044 New Bag 11/23/2023 9:23 PM EDT 1,000 mL 1000 mL/hr New Bag 11/23/2023 8:45 PM EDT 1,000 mL 1000 mL/hr ondansetron (Zofran) inj 4 mg 4 mg, IV Push, ONCE, On Wed11/23/23 at 2044, For 1 dose Given 11/23/2023 9:23 PM EDT 4 mg oxyCODONE (Oxy IR) tab 5 mg 5 mg, Oral, ONCE, On Wed11/24/23 at 14, For 1 dose Given 11/23/2023 11:50 PM EDT 5 mg documented in this encounter Active and Recently Administered Medications Times are shown in EDT. Scheduled Medication Order 11/22/2023 11/23/2023 11/24/2023 fentaNYL (PF) inj 50 mcg (COMPLETED) 50 mcg, Intravenous, ONCE, On Wed11/23/23 at 2044, For 1 dose, When given IV Push its recommended that the dose be given over 3 to 5 minutes. 2122 (Given - Provider: Krishna Roque RN) Iopamidol (Isovue 370) inj 80 mL (COMPLETED) 80 mL, Intravenous, ONCE, On Wed11/23/23 at 2230, For 1 dose, Radiology Medication Routing (Non-IR) 2229 (Given - Provider: Qi Avalos, RT (R)) NSS 0.9% 1,000 mL bolus infusion (COMPLETED) Intravenous, at 1,000 mL/hr Administer over 60 Minutes, Administer entire volume within 60 minutes or less., ONCE, 1 dose, On Wed11/23/23 at 2044 2044 (New Bag - Provider: Lang Roque RN)2122 (New Bag - Provider: Krishna Roque RN)2342 (Stopped - Provider: Leah Espinal, LUPIS) ondansetron (Zofran) inj 4 mg (COMPLETED) 4 mg, IV Push, ONCE, On Wed11/23/23 at 2045, For 1 dose 3 (Given - Provider: Krishna Roque RN) oxyCODONE (Oxy IR) tab 5 mg (COMPLETED) 5 mg, Oral, ONCE, On Wed11/24/23 at 0015, For 1 dose 2350 (Given - Provider: Leah Espinal RN - Comment: crushed and put through G-tube) documented in this encounter Advance Directives * [...] Advance Directives occurred with: Patient Care Teams Thermoplastic Technician Relationship Specialty Start Date End Date Kinjal Reynoso PA-C [facility] [place] [id number] PCP - General Physician Evp Operations 11/05/22 documented as of this encounter
--- OUTSIDE RECORDS SUMMARY | 2024-01-01 09:11 | External Medical Summary ---
Author Name Unknown Address Unknown Organization K1F:LABORATORY [facility] - [address] [place] [address] Laboratory Report Ordering Provider Test Date Status MEGAN CASTILLO 11/23/2023 21:15:17 Final Observation Date Value Abnormality Reference (Units ) Status WBC, Total 11/23/2023 21:15:17 5.34 4.00-10.80 (K/uL) Final RBC 11/23/2023 21:15:17 4.02 3.85-5.15 (M/uL) Final Hemoglobin 11/23/2023 21:15:17 12.6 12.0-15.3 (g/dL) Final HCT 11/23/2023 21:15:17 36.3 36.0-45.2 (%) Final MCV 11/23/2023 21:15:17 90.3 81.5-97.5 (fL) Final MCH 11/23/2023 21:15:17 31.3 27.0-34.0 (pg) Final MCHC 11/23/2023 21:15:17 34.7 32.0-36.0 (g/dL) Final RDW 11/23/2023 21:15:17 12.4 11.5-15.5 (%) Final Platelets 11/23/2023 21:15:17 213 140-400 (K/uL) Final MPV 11/23/2023 21:15:17 10.5 6.6-11.1 (fL) Final Nucleated erythrocytes/100 leukocytes [Ratio] in Blood by Automated count 11/23/2023 21:15:17 0 <=0 (/100 WBCs) Final Performing Location LABORATORY [facility] - [address] [facility] [place] [address]
--- OUTSIDE RECORDS SUMMARY | 2024-01-01 09:11 | External Medical Summary | Summary of Care ---
Author Name Unknown Organization [facility] Address [address] [place] [address] Phone [phone] Care Team Providers Care Furniture Manager Name Role Phone Kinjal Reynoso PA-C Primary Care Provider [phone] Reason for Visit * Reason Onset Date Comments Order Request 11/24/202311/23 Encounter Details Date Type Department Care Team (Late st Contact Info) Description 11/24/2023 Telephone [facility] 21 [facility] [place] [address] Kinjal Reynoso PA-C 21 [facility] [place] [address] Order Request (11/23) Allergies Active [...] OPIOID OVERDOSE - SEEK IMMEDIATE MEDICAL ATTENTION. [email or web address] 2 Each 3 03/31/2023 Active Polyethylene Glycol [...] as directed, through J-tube via feeding pump. 78539 mL 11 10/05/2023 Active Peptamen AF Oral Liquid Administer 1,000 mL over 12 hours into J tube 4 times a day. 89684 mL 09/30/2023 Active Enteral Feeding Piston Syringe [...] to general surgery. * Telephone Encounter - Yumiok Cervantes OSA - 11/24/2023 3:52 PM EDT Radiology states they need an order placed for the procedure that they can't schedule from the referral? documented in this encounter Plan of Treatment Upcoming Encounters Date Type Department Care Team (Late st Contact Info) Description 11/29/2023 1:30 PM EDT Office Visit Gastroenterology, [facility] [address] [facility] [place] [phone] Vicki Roberts PA-C 310 [facility] [address] 12/17/2023 1:30 PM EDT Nurse Only Hematology/Oncology Treatment, [facility] [address] [facility], Chair11 Hem Onc 400 [facility] [address] 12/24/2023 11:00 AM EDT Office Visit Family [facility] [place] [facility] [phone] Kinjal Reynoso PA-C [facility] [address] Health Maintenance Due Date Last Done Comments [...] this encounter Medical Devices Implanted Type Area Ground Nuclear Weapons Assembly Officer Device Identifier Shelf Expiration Date Model / Serial / Lot Port Implant W/8f Poly Cath - [id number] Implanted:Qty : 1 on 05/18/2023 by Juan Jose Connell, at OR [facility] Right: Chest CR BARD : PERIPHERAL VASCULAR [id number] 11/18/2024 [id number] / / [id number] documented as of this encounter Advance Directives [...] Advance Directives occurred with: Patient Care Teams Furniture Manager Relationship Specialty Start Date End Date Kinjal Reynoso PA-C [address] [place] [phone] PCP - General Physician Lever Tender 11/05/22 documented as of this encounter
--- OUTSIDE RECORDS SUMMARY | 2024-01-01 09:11 | External Medical Summary ---
Author Name Unknown Address Unknown Organization K1F:LABORATORY [facility] - [address] [facility] [place] [address] Laboratory Report Ordering Provider Test Date Status MEGAN CASTILLO 11/23/2023 20:25:06 Final Observation Date Value Abnormality Reference (Units ) Status Color of Urine by Auto 11/23/2023 20:25:06 Yellow Light Yellow, Yellow, Dark Yellow Final Clarity, Urine 11/23/2023 20:25:06 Clear Clear Final Glucose [Mass/volume] in Urine by Automated test strip 11/23/2023 20:25:06 Negative Negative (mg/dL) Final Bilirubin.total [Presence] in Urine by Automated test strip 11/23/2023 20:25:06 Negative Negative Final Ketones [Mass/volume] in Urine by Automated test strip 11/23/2023 20:25:06 Negative Negative (mg/dL) Final Specific gravity, Urine 11/23/2023 20:25:06 1.023 1.003-1.030 Final Hemoglobin [Presence] in Urine by Automated test strip 11/23/2023 20:25:06 Negative Negative Final pH, Urine 11/23/2023 20:25:06 5.5 5.0-7.5 (Units) Final Protein [Mass/volume] in Urine by Automated test strip 11/23/2023 20:25:06 Negative Negative (mg/dL) Final Urobilinogen [Mass/volume] in Urine by Automated test strip 11/23/2023 20:25:06 0.2 0.2, 1.0 (mg/dL) Final Nitrite [Presence] in Urine by Automated test strip 11/23/2023 20:25:06 Negative Negative Final Leukocyte esterase [Presence] in Urine by Automated test strip 11/23/2023 20:25:06 Negative Negative Final RBC, Urine 11/23/2023 20:25:06 0-2 0-2 (/HPF) Final WBC, Urine 11/23/2023 20:25:06 3-5 Abnormal 0-2 (/HPF) Final Bacteria [#/area] in Urine sediment by Microscopy high power field 11/23/2023 20:25:06 >200 Abnormal 0-25 (/HPF) Final Epithelial cells.squamous [#/area] in Urine sediment by Microscopy high power field 11/23/2023 20:25:06 Many Abnormal None (/HPF) Final CULTURE, URINE - [facility] 11/23/2023 20:25:06 Final Quantitative urine culture t o be performed Performing Location LABORATORY [facility] - [address] [place] [address] [address] [place] [address]
--- OUTSIDE RECORDS SUMMARY | 2024-01-01 09:11 | External Medical Summary ---
Author Name Unknown Address Unknown Organization K1F:LABORATORY [facility] - [address] [place] [address] Laboratory Report Ordering Provider Test Date Status JONATHANMEGAN 11/23/2023 20:22:34 Final Observation Date Value Abnormality Reference (Units ) Status BUN 11/23/2023 20:22:34 11 6-20 (mg/dL) Final Creatinine 11/23/2023 20:22:34 0.6 0.5-1.0 (mg/dL) Final Glomerular filtration rate/1.73 sq M.predicted [Volume Rate/Area] in Serum, Plasma or Blood by Creatinine-based formula (CKD-EPI) 11/23/2023 20:22:34 >90 >=60 (mL/min) Final eGFR is calculated based on the CKD-EPI 2020 equation Sodium 11/23/2023 20:22:34 138 135-146 (m mol/L) Final Potassium 11/23/2023 20:22:34 4.6 3.5-5.1 (m mol/L) Final Cl 11/23/2023 20:22:34 104 98-107 (mm ol/L) Final CO2 11/23/2023 20:22:34 20 Below low normal 22- 32 (mmol/L) Final Anion gap 11/23/2023 20:22:34 14 7-15 (mmol /L) Final Glucose 11/23/2023 20:22:34 94 70-120 (mg /dL) Final Calcium 11/23/2023 20:22:34 9.6 8.4-10.2 ( mg/dL) Final Performing Location LABORATORY [facility] - [address] [address] [facility] [address] [place] [address]
--- OUTSIDE RECORDS SUMMARY | 2024-01-01 09:11 | External Medical Summary | Summary of Care ---
Author Name Unknown Organization [facility] Address [address] [place] [address] Phone [phone] Care Team Providers Care Tool And Die Maker Name Role Phone Kinjal Reynoso PA-C Primary Care Provider [phone] Encounter Details Date Type Department Care Team (Late st Contact Info) Description 11/24/2023 Telephone [facility] 21 [place] [address] Kinjal Reynoso PA-C 21 [place] [address] Allergies Active Allergy Reactions Criticality Noted [...] OPIOID OVERDOSE - SEEK IMMEDIATE MEDICAL ATTENTION. [email or web address] 2 Each 3 03/31/2023 Active Polyethylene Glycol [...] as directed, through J-tube via feeding pump. 25107 mL 11 10/05/2023 Active Peptamen AF Oral Liquid Administer 1,000 mL over 12 hours into J tube 4 times a day. 97695 mL 11 09/30/2023 Active Enteral Feeding Piston [...] No 2023 documented as of this encounter Plan of Treatment Upcoming Encounters Date Type Department Care Team (Late st Contact Info) Description 11/29/2023 1:30 PM EDT Office Visit Gastroenterology, [place] [address] [place] [address] [place] [phone] Vicki Roberts PA-C [address] [place], [place] [address] [address] 12/17/2023 1:30 PM EDT Nurse Only Hematology/Oncology Treatment, [address] [place] [address] [facility], Chair11 Hem Onc 400 [facility] [place] [address] 12/24/2023 11:00 AM EDT Office Visit Family Jeff, [place] 21 [place] [phone] Kinjal Reynoso PA-C 21 [place] [address] Health Maintenance Due Date Last Done Comments [...] this encounter Medical Devices Implanted Type Area Tool Crib Clerk Device Identifier Shelf Expiration Date Model / Serial / Lot Port Implant W/8f Poly Cath - [id number] Implanted:Qty : 1 on 05/18/2023 by Juan Jose Connell, at OR [facility] Right: Chest CR BARD : PERIPHERAL VASCULAR [id number] 11/18/2024 [id number] / / [id number] documented as of this encounter Advance Directives [...] Advance Directives occurred with: Patient Care Teams Tool And Die Maker Relationship Specialty Start Date End Date Kinjal Reynoso PA-C 21 [place] [address] PCP - General Physician Cement Finisher Apprentice 11/05/22 documented as of this encounter
--- OUTSIDE RECORDS SUMMARY | 2024-01-01 09:11 | External Medical Summary | Summary of Care ---
Author Name Unknown Organization [facility] Address [address] [place] [address] Phone [phone] Care Team Providers Care Utility Plant Operative Name Role Phone Kinjal Reynoso PA-C Primary Care Provider [phone] Reason for Visit * Reason Onset Date Comments Order Request 11/24/202311/23 Encounter Details Date Type Department Care Team (Late st Contact Info) Description 11/24/2023 Telephone [facility] 21 [place] [address] Kinjal Reynoso PA-C 21 [place] [address] Order Request (11/23) Allergies Active [...] OPIOID OVERDOSE - SEEK IMMEDIATE MEDICAL ATTENTION. [email or web address] 2 Each 3 03/31/2023 Active Polyethylene Glycol [...] as directed, through J-tube via feeding pump. 14435 mL 11 10/05/2023 Active Peptamen AF Oral Liquid Administer 1,000 mL over 12 hours into J tube 4 times a day. 82972 mL 09/30/2023 Active Enteral Feeding Piston Syringe [...] PM EDT Office Visit Gastroenterology, [place] [address] [place] [phone] Vicki Roberts PA-C [address] [place] [address] 12/17/2023 1:30 PM EDT Nurse Only Hematology/Oncology Treatment, [facility] 400 [facility] [place] [address] [facility], Chair11 Hem Onc 400 [facility] [address] 12/24/2023 11:00 AM EDT Office Visit [facility], [place] [facility] [phone] Kinjal Reynoso PA-C [address] [facility] [address] Health Maintenance Due Date Last Done Comments [...] this encounter Medical Devices Implanted Type Area Farmworker General Device Identifier Shelf Expiration Date Model / Serial / Lot Port Implant W/8f Poly Cath - [id number] Implanted:Qty : 1 on 05/18/2023 by Juan Jose Connell DO at OR [facility] Right: Chest CR BARD : PERIPHERAL VASCULAR [id number] 11/18/2024 [id number] / / [id number] documented as of this encounter Advance Directives [...] Advance Directives occurred with: Patient Care Teams Utility Plant Operative Relationship Specialty Start Date End Date Kinjal Reynoso PA-C 21 [place] [address] PCP - General Physician Medical Leader 11/05/22 documented as of this encounter
--- OUTSIDE RECORDS SUMMARY | 2024-01-01 09:11 | External Medical Summary ---
Author Name Unknown Address Unknown Organization K1F:LABORATORY [facility] - [address] [place] [address] Laboratory Report Ordering Provider Test Date Status MEGAN CASTILLO 11/23/2023 20:22:34 Final Observation Date Value Abnormality Reference (Units ) Status Lactic Acid 11/23/2023 20:22:34 1.9 0.4-2.0 (mmol/L) Final Performing Location LABORATORY [facility] - [address] [place] [address]
--- OUTSIDE RECORDS SUMMARY | 2024-01-01 09:11 | External Medical Summary ---
Author Name Unknown Address Unknown Organization K01:LABORATORY [facility] - [address] [facility] [address] Laboratory Report Ordering Provider Test Date Status MEGAN CASTILLO 11/23/2023 20:25:06 Final Observation Date Value Abnormality Reference (Units) Status Bacteria identified in Specimen by Culture 11/23/2023 20:25:06 No significant growth Final Test: Culture, Urine, Quanti tative
Specimen Source: Urine, Clean Catch
Specimen Type: Urine
Specimen Date: 11/23/20232024
Result Date: 11/25/2023719
Result Status: Final result
Resulting Lab: LABORATORY [facility]
[address]
[facility] [address]

CULTURE

No significant growth

null Performing Location LABORATORY [facility] - [address] [facility] [address]
--- OUTSIDE RECORDS SUMMARY | 2024-01-01 09:11 | External Medical Summary ---
Author Name Unknown Address Unknown Organization K1F:LABORATORY [facility] - [address] [place] [address] Laboratory Report Ordering Provider Test Date Status MEGAN CASTILLO 11/23/2023 20:22:34 Final Observation Date Value Abnormality Reference (Units ) Status Albumin 11/23/2023 20:22:34 4.3 3.8-5.0 (g/dL) Final AST (Aspartate aminotransferase) 11/23/2023 20:22:34 23 10-35 (U/L) Final Result may be falsely elevat ed due to hemolysis. Alk Phos 11/23/2023 20:22:34 84 35-130 (U/ L) Final ALT (Alanine aminotransferase) 11/23/2023 20:22:34 10 10-35 (U/L) Final Bilirubin, Total 11/23/2023 20:22:34 0.2 <=1 .2 (mg/dL) Final Bilirubin, Direct 11/23/2023 20:22:34 <0.2 0. 0-0.3 (mg/dL) Final Result may be falsely decrea sed due to hemolysis. Protein 11/23/2023 20:22:34 7.3 6.0-8.3 (g /dL) Final Performing Location LABORATORY [facility] - [address] [address] [place] [address]
--- OUTSIDE RECORDS SUMMARY | 2024-01-01 09:11 | External Medical Summary | Summary of Care ---
Author Name Unknown Organization [facility] Address [address] [place] [address] Phone [phone] Care Team Providers Care Family Living Educator Name Role Phone Kinjal Reynoso PA-C Primary Care Provider [phone] Reason for Visit * Reason Comments Pain Nausea * Auth/Cert Specialty Diagnoses / Procedures Referred By Contdulce t Referred To Contact [facility] [address] [place] [address] Phone: [phone] Emergency Medicine [address] [address] Referral ID Status Reason Start Date Expiration Date Visits Re quested Visits Authorized [id number] Encounter Details Date Type Department Care Team ([facility] Contact Info) Description 11/23/2023 1:51 PM EDT - 11/23/2023 1:52 PM EDT Emergency [facility] ([facility]) [address] [place] [address] Discharge Disposition: Left ED Without Being Seen Allergies Active Allergy Reactions Criticality Noted Date [...] OPIOID OVERDOSE - SEEK IMMEDIATE MEDICAL ATTENTION. [email or web address] 2 Each 3 03/31/2023 Active Polyethylene Glycol [...] as directed, through J-tube via feeding pump. 60812 mL 11 10/05/2023 Active Peptamen AF Oral Liquid Administer 1,000 mL over 12 hours into J tube 4 times a day. 62106 mL 09/30/2023 Active Enteral Feeding Piston Syringe [...] Sign Reading Time Taken Comments Blood Pressure 124/76 11/23/2023 1:32 PM EDT Pulse 93 11/23/2023 1:32 PM EDT Temperature 36.2 C (97.2 F) 11/23/2023 1:32 PM ED T Respiratory Rate 20 11/23/2023 1:32 PM EDT Oxygen Saturation 98% 11/23/2023 1:32 PM EDT Inhaled Oxygen Concentration - - Weight 74.4 kg (164 lb) 11/23/2023 1:32 PM EDT Height 157.5 cm (5' 2") 11/23/2023 1:32 PM EDT Body Mass Index 30 11/23/2023 1:32 PM EDT documented in this encounter Functional [...] No 2023 documented as of this encounter ED Notes * Krishna Roque, RN - 11/23/2023 1:36 PM EDT J-tube pain and nausea, feels tube is in right place. documented in this encounter Miscellaneous Notes * ED Hitch Technician Note - Amina Llanos RN - 11/23/2023 1:50 PM EDT Informed by registration that pt leaving from the waiting room and stated she would be back later documented in this encounter Plan of Treatment Upcoming Encounters Date Type Department Care Team (Late st Contact Info) Description 11/24/2023 11:40 AM EDT Office Visit [address] [place] [phone] Kinjal Reynoso PA-C 21 [facility] [place] [address] 11/29/2023 1:30 PM EDT Office Visit Gastroenterology, [facility] [place] [address] [place] [phone] Vicki Roberts PA-C 310 [facility] [place] [address] 12/17/2023 1:30 PM EDT Nurse Only Hematology/Oncology Treatment, [facility] [address] [place] [address] [facility], Chair11 Hem Onc [address] [place] [address] 12/24/2023 11:00 AM EDT Office Visit Family Jeff, [place] [address] [place] [phone] Kinjal Reynoso PA-C [address] [place] [address] [address] Health Maintenance Due Date Last Done Comments [...] this encounter Medical Devices Implanted Type Area Informatics Nurse Device Identifier Shelf Expiration Date Model / Serial / Lot Port Implant W/8f Poly Cath - [id number] Implanted:Qty : 1 on 05/18/2023 by Juan Jose Connell, at OR [facility] Right: Chest CR BARD : PERIPHERAL VASCULAR [id number] 11/18/2024 [id number] / / [id number] documented as of this encounter Advance Directives [...] Advance Directives occurred with: Patient Care Teams Family Living Educator Relationship Specialty Start Date End Date Kinjal Reynoso PA-C [address] [place] [address] PCP - General Physician Cloth Framer 11/05/22 documented as of this encounter
--- OUTSIDE RECORDS SUMMARY | 2024-01-01 09:11 | External Medical Summary | Summary of Care ---
Author Name Unknown Organization [facility] Address [address] [place] [address] Phone [phone] Care Team Providers Care Third Rigger Name Role Phone Kinjal Reynoso PA-C Primary Care Provider [phone] Encounter Details Date Type Department Care Team (Late st Contact Info) Description 11/24/2023 Telephone [facility] [address] [place] [phone] Kinjal Reynoso PA-C 21 [facility] [place] [address] Allergies Active Allergy Reactions Criticality Noted [...] OPIOID OVERDOSE - SEEK IMMEDIATE MEDICAL ATTENTION. [email or web address] 2 Each 3 03/31/2023 Active Polyethylene Glycol [...] as directed, through J-tube via feeding pump. 38608 mL 11 10/05/2023 Active Peptamen AF Oral Liquid Administer 1,000 mL over 12 hours into J tube 4 times a day. 35309 mL 11 09/30/2023 Active Enteral Feeding Piston [...] PM EDT Office Visit Gastroenterology, Carol Roca [address] [place] [address] [place] [phone] Vicki Roberts PA-C [address] [place], [place] [address] [address] 12/17/2023 1:30 PM EDT Nurse Only Hematology/Oncology Treatment, [address] [place] [address] [facility], Chair11 Hem Onc 400 [facility] [address] 12/24/2023 11:00 AM EDT Office Visit Family Jeff, [place] [address] [place] [address] [phone] Kinjal Reynoso PA-C [address] [place] [address] [address] Health Maintenance Due Date Last Done Comments [...] this encounter Medical Devices Implanted Type Area Hearing Care Practitioner Device Identifier Shelf Expiration Date Model / Serial / Lot Port Implant W/8f Poly Cath - [id number] Implanted:Qty : 1 on 05/18/2023 by Juan Jose Connell, at OR [facility] Right: Chest CR BARD : PERIPHERAL VASCULAR [id number] 11/18/2024 [id number] / / [id number] documented as of this encounter Advance Directives [...] Advance Directives occurred with: Patient Care Teams Third Rigger Relationship Specialty Start Date End Date Kinjal Reynoso PA-C [address] [place] [address] PCP - General Physician Hand Scudder 11/05/22 documented as of this encounter
--- OUTSIDE RECORDS SUMMARY | 2024-01-01 09:11 | External Medical Summary | Summary of Care ---
Author Name Unknown Organization [facility] Address [address] [place] [address] Phone [phone] Care Team Providers Care Enzyme Chemist Name Role Phone Kinjal Reynoso PA-C Primary Care Provider [phone] Encounter Details Date Type Department Care Team (Late st Contact Info) Description 11/24/2023 Telephone [facility] [address] [place] [phone] Kinjal Reynoso PA-C 21 [facility] [place] [place] [address] Allergies Active Allergy Reactions Criticality [...] OPIOID OVERDOSE - SEEK IMMEDIATE MEDICAL ATTENTION. [email or web address]?/=/[email or web address] 2 Each 3 03/31/2023 Active Polyethylene Glycol [...] as directed, through J-tube via feeding pump. 36832 mL 11 10/05/2023 Active Peptamen AF Oral Liquid Administer 1,000 mL over 12 hours into J tube 4 times a day. 90877 mL 11 09/30/2023 Active Enteral Feeding Piston [...] PM EDT Office Visit Gastroenterology, Carol Roca [address] [place] [address] [place] [phone] Vicki Roberts PA-C [address] [place] [address] 12/17/2023 1:30 PM EDT Nurse Only Hematology/Oncology Treatment, [facility] [address] [place] [address] [place], Chair11 Hem Onc 400 [place] [address] 12/24/2023 11:00 AM EDT Office Visit [facility] [place] 21 [facility] [place] [place] [phone] Kinjal Reynoso PA-C 21 [facility] [place] [address] Health Maintenance Due Date Last Done Comments [...] this encounter Medical Devices Implanted Type Area Hypoid Gear Tester Device Identifier Shelf Expiration Date Model / Serial / Lot Port Implant W/8f Poly Cath - [id number] Implanted:Qty : 1 on 05/18/2023 by Juan Jose Connell DO at OR [facility] Right: Chest CR BARD : PERIPHERAL VASCULAR [id number] 11/18/2024 [id number] / / [id number] documented as of this encounter Advance Directives [...] Advance Directives occurred with: Patient Care Teams Enzyme Chemist Relationship Specialty Start Date End Date Kinjal Reynoso PA-C [address] [address] PCP - General Physician Land Management Supervisor 11/05/22 documented as of this encounter
--- OUTSIDE RECORDS SUMMARY | 2024-01-01 09:11 | External Medical Summary ---
Author Name Unknown Address Unknown Organization K1F:LABORATORY [facility] - [address] [place] [address] Laboratory Report Ordering Provider Test Date Status MEGAN CASTILLO 11/23/2023 20:22:34 Final Observation Date Value Abnormality Reference (Units ) Status Lipase 11/23/2023 20:22:34 28 13-60 (U/L ) Final Performing Location LABORATORY [facility] - [address] [place] [address]
--- OUTSIDE RECORDS SUMMARY | 2024-01-01 09:11 | External Medical Summary ---
Author Name Unknown Address Unknown Organization K1F:[facility]ORY [facility] - 400 [facility] [place] [address] Laboratory Report Ordering Provider Test Date Status JONATHANSANTOTRAMAINEKRISTOPHER 11/23/2023 21:15:17 Final Observation Date Value Abnormality Reference (Units ) Status SYNC LEUKOCYTES IN BLOOD BY AUTOMATED COUNT 11/23/2023 21:15:17 5.34 4.00-10.80 (K/uL) Final Segs 11/23/2023 21:15:17 34.2 Below low normal 40.0-75.0 (%) Final Lymphs % 11/23/2023 21:15:17 55.1 Above high normal 18.0-42.0 (%) Final Monos 11/23/2023 21:15:17 8.4 1.0-11.0 (%) Final Eosinophils 11/23/2023 21:15:17 1.5 0.0-6.0 (%) Final Basos 11/23/2023 21:15:17 0.4 0.0-2.0 (%) Final Immature Granulocyte, Percent 11/23/2023 21:15:17 0.4 0.0-2.0 (%) Final Absolute Segs 11/23/2023 21:15:17 1.83 1.80-7.70 (K/uL) Final Lymphs, absolute 11/23/2023 21:15:17 2.94 1.00-4.80 (K/ul) Final Monos, Abs 11/23/2023 21:15:17 0.45 0.00-1.10 (K/uL) Final Eos, Abs 11/23/2023 21:15:17 0.08 0.00-0.70 (K/uL) Final Basos, Abs 11/23/2023 21:15:17 0.02 0.00-0.20 (K/uL) Final Immature Granulocytes, Number 11/23/2023 21:15:17 0.02 0.00-0.20 (K/uL) Final Performing Location LABORATORY [facility] - [address] [place], [place] [address]catie [address]. [place] [address]
--- OUTSIDE RECORDS SUMMARY | 2024-01-01 09:12 | External Medical Summary ---
Author Name Unknown Address Unknown Organization K1F:LABORATORY [facility] - [address] [place] [address] Laboratory Report Ordering Provider Test Date Status ASHANTI MENENDEZ 11/18/2023 11:58:18 Final Observation Date Value Abnormality Reference (Units ) Status WBC, Total 11/18/2023 11:58:18 6.32 4.00-10.80 (K/uL) Final RBC 11/18/2023 11:58:18 4.41 3.85-5.15 (M/uL) Final Hemoglobin 11/18/2023 11:58:18 14.0 12.0-15.3 (g/dL) Final HCT 11/18/2023 11:58:18 39.3 36.0-45.2 (%) Final MCV 11/18/2023 11:58:18 89.1 81.5-97.5 (fL) Final MCH 11/18/2023 11:58:18 31.7 27.0-34.0 (pg) Final MCHC 11/18/2023 11:58:18 35.6 32.0-36.0 (g/dL) Final RDW 11/18/2023 11:58:18 12.3 11.5-15.5 (%) Final Platelets 11/18/2023 11:58:18 203 140-400 (K/uL) Final MPV 11/18/2023 11:58:18 10.4 6.6-11.1 (fL) Final Nucleated erythrocytes/100 leukocytes [Ratio] in Blood by Automated count 11/18/2023 11:58:18 0 <=0 (/100 WBCs) Final Performing Location LABORATORY [facility] - [address] [facility] [address] [place] [address]
--- OUTSIDE RECORDS SUMMARY | 2024-01-01 09:12 | External Medical Summary | Summary of Care ---
Author Name Unknown Organization [facility] Address [address] [place] [address] Phone [phone] Care Team Providers Care Value Stream Manager Name Role Phone Kinjal Reynoso PA-C Primary Care Provider [phone] Reason for Visit * Reason Onset Date Comments Medication Problem 11/18/2023 Encounter Details Date Type Department Care Team (Late st Contact Info) Description 11/18/2023 Telephone [facility] [place] [address] Kinjal Reynoso PA-C 21 [facility] [place] [address] Medication Problem Allergies Active Allergy Reactions Criticality Noted Date [...] OPIOID OVERDOSE - SEEK IMMEDIATE MEDICAL ATTENTION. [email or web address] 2 Each 3 03/31/2023 Active Polyethylene Glycol 3350 17 GM/SCOOP Oral Powder (MiraLax) Stir and dissolve 17 g (measuring line inisde of cap) in 4 to 8 ounces of any liquid and adminsiter into Gastric Tube in the morning and repeat same steps before bedtime. 238 g 1 05/24/2023 Active Acetaminophen 160 MG/5ML Oral Suspension (Tylenol)Indication [...] as directed, through J-tube via feeding pump. 15871 mL 10/05/2023 Active Peptamen AF Oral Liquid Administer 1,000 mL over 12 hours into J tube 4 times a day. 03738 mL 11 09/30/2023 09/25/19 25 Active Enteral Feeding Piston Syringe Use as directed. 30 Each 11 09/30/2023 Active oxyCODONE HCl 5 MG/5ML Oral Solution (Roxicodone)Indicat ions:Gastroparesis, Chronic pelvic pain in female,Malfunction of jejunostomy tube (HCC) Take 5 mL by mouth every 6 hours as needed for Pain, Severe. DO NOT TAKE MORE THAN 4 DOSES A DAY. Continuation of Care 140 mL 11/17/2023 11/19/19 24 Discontinu ed(Refill) documented as of this [...] Telephone Encounter - Yumiko Alvares CMA - 11/22/2023 11:20 AM EDT Received PA approval for the Oxycodone 5 mg/5mL solution from 11/18/23-05/20/24. This was a trial med for her, so PA was done in case she will be staying on the solution compared to the tab. Te already sent to [facility] on 11/18 and today 11/21 for a refill of tabs or solution. Spoke to [facility] myself to have Te looked. * Telephone Encounter - Yumiko Alvares CMA - 11/18/2023 9:47 AM EDT PA submitted thru CMM. [place]: [id number] * Telephone Encounter - Sherine Noyola LPN - 11/18/2023 8:30 AM EDT Images from the original note were not included. Kinjal Reynoso PA-C P [place] [facility] Nurse Pool/Class See message below. Recommend starting the prior auth. Previous Messages ----- Message ----- From: Sindhu Aguayo, barn manager Sent: 11/17/2023 2:24 PM EDT To: Kinjal Reynoso PA-C Subject: prior auth The oxycodone liquid for Anirudh needs a prior auth. The insurance gave a 5 day override so we can only dispense 100 ml meaning she will forfeit the 40 ml. Since this is a trial I wasn't sure if you wanted to start the prior auth now since it can take a few days or wait to see how she does on this.We cannot fill anything without insurance paying since she does have insurance so unless insurance pays for it we cannot fill it. Any questions call [phone] option 0. Thanks, Sindhu Aguayo [facility] documented in this encounter Plan of Treatment Upcoming Encounters Date Type Department Care Team (Late st Contact Info) Description 11/29/2023 1:30 PM EDT Office Visit Gastroenterology, [place] Roca [address] [place] [address] [place] [phone] Vicki Roberts PA-C [address] [place], [place] [address] [address] 12/17/2023 1:30 PM EDT Nurse Only Hematology/Oncology Treatment, [facility] [address] [place] [place] [address] [facility], Chair11 Hem Onc [address] [place] [place] [address] 12/24/2023 11:00 AM EDT Office Visit [facility] [place] [address] [facility] [place] [phone] Kinjal Reynoso PA-C 21 [facility] [place] [address] Health Maintenance Due Date Last Done Comments [...] this encounter Medical Devices Implanted Type Area Curriculum Development Coordinator Device Identifier Shelf Expiration Date Model / Serial / Lot Port Implant W/8f Poly Cath - [id number] Implanted:Qty : 1 on 05/18/2023 by Juan Jose Connell DO at OR [facility] Right: Chest CR BARD : PERIPHERAL VASCULAR [id number] 11/18/2024 [id number] / / [id number] documented as of this encounter Advance Directives * Full Code (Latest Code Status on File) Date Activated Date Inactivated Comments 2023 5:38 AM 09/07/2023 6:53 PM This order reflects the patients wishes [...] Advance Directives occurred with: Patient Care Teams Value Stream Manager Relationship Specialty Start Date End Date Kinjal Reynoso PA-C [address] [place] [address] PCP - General Physician Cake Stripper 11/05/22 documented as of this encounter
--- OUTSIDE RECORDS SUMMARY | 2024-01-01 09:12 | External Medical Summary | Summary of Care ---
Author Name Unknown Organization [facility] Address [address] [place] [address] Phone [phone] Care Team Providers Care Director Talent Name Role Phone Kinjal Reynoso PA-C Primary Care Provider [phone] Reason for Visit * Reason Comments Medication Refill Encounter Details Date Type Department Care Team (Late st Contact Info) Description 11/19/2023 Refill [facility] 21 [facility] [place] [address] Kinjal Reynoso PA-C [facility] [place] [address] Gastroparesis; Chronic pelvic pain in female; [...] OPIOID OVERDOSE - SEEK IMMEDIATE MEDICAL ATTENTION. [email or web address] 2 Each 3 03/31/2023 Active Polyethylene Glycol [...] as directed, through J-tube via feeding pump. 44010 mL 11 10/05/2023 Active Peptamen AF Oral Liquid Administer 1,000 mL over 12 hours into J tube 4 times a day. 77261 mL 11 09/30/2023 09/25/19 25 Active Enteral [...] Continuation of Care 560 mL 11/22/2023 Active oxyCODONE HCl 5 MG/5ML Oral Solution [...] Vaccine 11/27/2002 TDAP (age 10 and older)(Boostrix) 01/03/2021,09/ 02/2016 Varicella Vaccine (Chicken Pox) 01/18/2007,11/27 documented as [...] Encounter - Kinjal Reynoso PA-C - 11/22/2023 11:33 AM EDTSigned Prescriptions: Disp Refills oxyCODONE HCl 5 MG/5ML Oral Solution (Tiffani*560 mL 0 Sig: Take 5 mL by mouth every 6 hours as needed for Pain, Severe. DO NOT TAKE MORE THAN 4 DOSES A DAY. Rx must last 28 days. Continuation of Care Authorizing Provider: KINJAL REYNOSO * Telephone Encounter - Robin Farfan [facility] - 11/20/2023 2:57 PM EDTPending Prescriptions: Disp Refills oxyCODONE HCl 5 MG/5ML Oral Solution (Tiffani*140 mL 0 Sig: Take 5 mL by mouth every 6 hours as needed for Pain, Severe. DO NOT TAKE MORE THAN 4 DOSES A DAY. Continuation of Care * Telephone Encounter - Robin Farfan [facility] - 11/20/2023 2:56 PM EDT I have reviewed the patients controlled substance dispensing history in the Prescription Drug Monitoring Program in compliance with the [place] regulations before prescribing a controlled substance. PDMP checked on 11/20/2023. Pending Prescriptions: Disp Refills oxyCODONE HCl 5 MG/5ML Oral Solution (Concha*140 mL 0 Sig: Take 5 mL by mouth every 6 hours as needed for Pain, Severe. DO NOT TAKE MORE THAN 4 DOSES A DAY. Continuation of Care Last Visit: 10/25/2023 (in office), 09/10/2022 (telemedicine) Next Visit: 12/24/2023 Date medication was last filled: 11-17-23 (100mg, 5 days) Date medication is due for refill: 11-21-23 Pharmacy: [facility] [...] upon request. Please approve if appropriate. Thanks, Kyle Hinojosa.Ph. Clinical Pharmacist [facility] [phone] ext [phone] 11/20/2023,2:56 PM documented in this encounter Plan of Treatment Upcoming Encounters Date Type Department Care Team (Late st Contact Info) Description 11/29/2023 1:30 PM EDT Office Visit Gastroenterology, [facility] [address] [place] [phone] Vicki Roberts PA-C [address] [place] [address] 12/17/2023 1:30 PM EDT Nurse Only Hematology/Oncology Treatment, [facility] [address] [facility] [address] [facility], Chair11 Hem Onc 400 [place] [address] 12/24/2023 11:00 AM EDT Office Visit [facility] [place] [phone] Kinjal Reynoso PA-C 21 [facility] [place] [address] Health Maintenance Due Date Last Done Comments [...] this encounter Medical Devices Implanted Type Area Laundry Tub Maker Device Identifier Shelf Expiration Date Model / Serial / Lot Port Implant W/8f Poly Cath - [id number] Implanted:Qty : 1 on 05/18/2023 by Juan Jose Connell, at OR [facility] Right: Chest CR BARD : PERIPHERAL VASCULAR [id number] 11/18/2024 [id number] / / [id number] documented as of this encounter Visit Diagnoses [...] Advance Directives occurred with: Patient Care Teams Director Talent Relationship Specialty Start Date End Date Kinjal Reynoso PA-C [address] [place] [address] PCP - General Physician Business Practices Officer 11/05/22 documented as of this encounter
--- OUTSIDE RECORDS SUMMARY | 2024-01-01 09:12 | External Medical Summary | Summary of Care ---
Author Name Unknown Organization [facility] Address [address] [place] [address] Phone [phone] Care Team Providers Care [employer] Assistant Manager Name Role Phone Kinjal Reynoso PA-C Primary Care Provider [phone] Reason for Visit * Reason Onset Date Comments Medication Problem 11/18/2023 Encounter Details Date Type Department Care Team (Late st Contact Info) Description 11/18/2023 Telephone [facility] [place] [address] Kinjal Reynoso PA-C [address] [facility] [place] [address] Medication Problem Allergies Active Allergy Reactions [...] OPIOID OVERDOSE - SEEK IMMEDIATE MEDICAL ATTENTION. [email or web address] 2 Each 3 03/31/2023 Active Polyethylene Glycol [...] as directed, through J-tube via feeding pump. 98977 mL 10/05/2023 Active Peptamen AF Oral Liquid Administer 1,000 mL over 12 hours into J tube 4 times a day. 89519 mL 11 09/30/2023 09/25/19 25 Active Enteral [...] to the tab. Te already sent to [facility] on 11/18 and today 11/21 for a refill of tabs or solution. Spoke to [facility] myself to have Te looked at and refill given. * Telephone Encounter - Yumiko Alvares CMA - 11/18/2023 9:47 AM EDT PA submitted thru CMM. Douglas: [id number] * Telephone Encounter - Sherine Noyola LPN - 11/18/2023 8:30 AM EDT Images from the original note were not included. Kinjal Reynoso PA-C P [place] [facility] Nurse Pool/Class See message below. Recommend starting the prior auth. Previous Messages ----- Message ----- From: Sindhu Aguayo, creative/art director Sent: 11/17/2023 2:24 PM EDT To: Kinjal [...] we cannot fill it. Any questions call [phone] option 0. Thanks, Sindhu Aguayo [facility] documented in this encounter Plan of Treatment Upcoming Encounters Date Type Department Care Team (Late st Contact Info) Description 11/29/2023 1:30 PM EDT Office Visit Gastroenterology, [facility] R[facility] [address] [place] [address] [place] [address] Vicki Roberts PA-C [address] [place] [address] [place] [id number] 12/17/2023 1:30 PM EDT Nurse Only Hematology/Oncology Treatment, [facility] [address] [place] [address] [facility], Chair11 Hem Onc [address] [place] [address] 12/24/2023 11:00 AM EDT Office Visit [facility], [place] 21 [facility] [place] [address] Kinjal Reynoso PA-C [address] [facility] [place] [address] Health Maintenance Due Date Last Done Comments [...] this encounter Medical Devices Implanted Type Area Floorwalker Device Identifier Shelf Expiration Date Model / Serial / Lot Port Implant W/8f Poly Cath - [id number] Implanted:Qty : 1 on 05/18/2023 by Juan Jose Connell, at OR [facility] Right: Chest CR BARD : PERIPHERAL VASCULAR [id number] 11/18/2024 [id number] / / [id number] documented as of this encounter Advance Directives [...] Advance Directives occurred with: Patient Care Teams [employer] Assistant Manager Relationship Specialty Start Date End Date Kinjal Reynoso PA-C 21 [place] [address] PCP - General Physician Recruiter Specialist 11/05/22 documented as of this encounter
--- OUTSIDE RECORDS SUMMARY | 2024-01-01 09:12 | External Medical Summary | Summary of Care ---
Author Name Unknown Organization [facility] Address [address] [place] [address] Phone [phone] Care Team Providers Care Dye Machine Operator Name Role Phone Kinjal Reynoso PA-C Primary Care Provider [phone] Reason for Visit * Reason Onset Date Comments Medication Problem 11/18/2023 Encounter Details Date Type Department Care Team (Late st Contact Info) Description 11/18/2023 Telephone [facility] [place] [address] Kinjal Reynoso PA-C [address] [place] [address] Medication Problem Allergies Active Allergy Reactions [...] as of this encounter (statuses as of 11/18/2023) Medications Medication Sig Dispensed Refills Start Date End Date Status Naloxone HCl 4 MG/0.1ML Nasal Liquid (Narcan Nasal)Indications:Ch ronic pelvic pain in female,MEDICATION USE AGREEMENT,Chronic abdominal pain ADMINISTER 1 SPRAY INTO 1 NOSTRIL FOR SUSPECTED OPIOID OVERDOSE - SEEK IMMEDIATE MEDICAL ATTENTION. [email or web address] 2 Each 3 03/31/2023 Active Polyethylene Glycol [...] as directed, through J-tube via feeding pump. 07891 mL 10/05/2023 Active Peptamen AF Oral Liquid Administer 1,000 mL over 12 hours into J tube 4 times a day. 69170 mL 11 09/30/2023 Active Enteral Feeding Piston Syringe Use as directed. 30 Each 09/30/2023 Active oxyCODONE HCl 5 MG/5ML Oral Solution (Roxicodone)Indicati ons:Gastroparesis,Ch ronic pelvic pain in female,Malfunction of jejunostomy tube (HCC) Take 5 mL by mouth every 6 hours as needed for Pain, Severe. DO NOT TAKE MORE THAN 4 DOSES A DAY. Continuation of Care 140 mL 11/17/2023 Active documented as of this encounter (statuses as of 11/18/2023) Active Problems Problem Noted Date Diagnosed Date [...] as of this encounter (statuses as of 11/18/2023) Resolved Problems Problem Noted Date Diagnosed Date [...] as of this encounter (statuses as of 11/18/2023) Immunizations Name Administration Dates Next Due DTaP [...] encounter Miscellaneous Notes * Telephone Encounter - Sherine Noyola LPN - 11/18/2023 8:30 AM EDT Images from the original note were not included. Kinjal Reynoso PA-C P [place] [facility] Nurse Pool/Class See message below. Recommend starting the prior auth. Previous Messages ----- Message ----- From: Sindhu Aguayo, center aisle cashier Sent: 11/17/2023 2:24 PM EDT To: Kinjal Reynoso PA-C Subject: prior auth The oxycodone liquid for Jahslyn needs a prior auth. The insurance gave [...] we cannot fill it. Any questions call [phone] option 0. Thanks, Sindhu Aguayo [facility] documented in this encounter Plan of Treatment Upcoming Encounters Date Type Department Care Team (Late st Contact Info) Description 11/29/2023 1:30 PM EDT Office Visit Gastroenterology, [facility] [address] [facility] [place] [phone] Vicki Roberts PA-C [address] [facility] [address] 12/17/2023 1:30 PM EDT Nurse Only Hematology/Oncology Treatment, [facility] [address] [facility] [place] [address] [facility], Chair11 Hem Onc 400 [facility] [address] 12/24/2023 11:00 AM EDT Office Visit [facility] [place] [address] [place] [address] Kinjal Reynoso PA-C 21 [facility] [address] Health Maintenance Due Date Last Done Comments [...] this encounter Medical Devices Implanted Type Area Naturalization Examiner Device Identifier Shelf Expiration Date Model / Serial / Lot Port Implant W/8f Poly Cath - [id number] Implanted:Qty : 1 on 05/18/2023 by Juan Jose Connell, at OR [facility] Right: Chest CR BARD : PERIPHERAL VASCULAR [id number] 11/18/2024 [id number] / / [id number] documented as of this encounter Advance Directives [...] Advance Directives occurred with: Patient Care Teams Dye Machine Operator Relationship Specialty Start Date End Date Kinjal Reynoso PA-C [address] [place] [address] PCP - General Physician R D Engineer 11/05/22 documented as of this encounter
--- OUTSIDE RECORDS SUMMARY | 2024-01-01 09:12 | External Medical Summary ---
Author Name Unknown Address Unknown Organization K1F[facility] [address] [facility] [place] [address] Laboratory Report Ordering Provider Test Date Status ASHANTI MENENDEZ 11/18/2023 11:58:18 Final Observation Date Value Abnormality Reference (Units ) Status BUN 11/18/2023 11:58:18 9 6-20 (mg/dL) Final Creatinine 11/18/2023 11:58:18 0.7 0.5-1.0 (mg/dL) Final Glomerular filtration rate/1.73 sq M.predicted [Volume Rate/Area] in Serum, Plasma or Blood by Creatinine-based formula (CKD-EPI) 11/18/2023 11:58:18 >90 >=60 (mL/min) Final eGFR is calculated based on the CKD-EPI 2020 equation Sodium 11/18/2023 11:58:18 137 135-146 (m mol/L) Final Potassium 11/18/2023 11:58:18 3.3 Below low normal 3.5 -5.1 (mmol/L) Final Cl 11/18/2023 11:58:18 106 98-107 (mm ol/L) Final CO2 11/18/2023 11:58:18 20 Below low normal 22- 32 (mmol/L) Final Anion gap 11/18/2023 11:58:18 11 7-15 (mmol /L) Final Glucose 11/18/2023 11:58:18 116 70-120 (mg /dL) Final Albumin 11/18/2023 11:58:18 4.1 3.8-5.0 (g /dL) Final AST (Aspartate aminotransferase) 11/18/2023 11:58:18 15 10-35 (U/L) Fin al Alk Phos 11/18/2023 11:58:18 87 35-130 (U/ L) Final Bilirubin, Total 11/18/2023 11:58:18 0.3 <=1 .2 (mg/dL) Final Calcium 11/18/2023 11:58:18 9.0 8.4-10.2 ( mg/dL) Final Protein 11/18/2023 11:58:18 7.0 6.0-8.3 (g /dL) Final ALT (Alanine aminotransferase) 11/18/2023 11:58:18 9 Below low normal 10-35 (U/L) Final Performing Location [facility] [place] [address]
--- OUTSIDE RECORDS SUMMARY | 2024-01-01 09:12 | External Medical Summary | Summary of Care ---
Author Name Unknown Organization [facility] Address [address] [place] [address] Phone [phone] Care Team Providers Care [place] Name Role Phone Kinjal Reynoso PA-C Primary Care Provider [phone] Reason for Visit * Reason Onset Date Comments Medication Problem 11/18/2023 Encounter Details Date Type Department Care Team (Late st Contact Info) Description 11/18/2023 Telephone [facility] [place] [address] Kinjal Reynoso PA-C 21 [facility] [place] [address] Medication Problem Allergies Active Allergy [...] OPIOID OVERDOSE - SEEK IMMEDIATE MEDICAL ATTENTION. [email or web address] 2 Each 3 03/31/2023 Active Polyethylene Glycol [...] as directed, through J-tube via feeding pump. 27327 mL 10/05/2023 Active Peptamen AF Oral Liquid Administer 1,000 mL over 12 hours into J tube 4 times a day. 43732 mL 11 09/30/2023 Active Enteral Feeding Piston [...] AM EDT PA submitted thru CMM. Douglas: [id number] * Telephone Encounter - Sherine Noyola LPN - 11/18/2023 8:30 AM EDT Images from the original note were not included. Kinjal Reynoso PA-C P [facility] Nurse Pool/Class See message below. Recommend starting the prior auth. Previous Messages ----- Message ----- From: Sindhu Aguayo, hand spring repairer helper Sent: 11/17/2023 2:24 PM EDT To: Kinjal [...] we cannot fill it. Any questions call [phone] option 0. Thanks, Sindhu Aguayo [facility] documented in this encounter Plan of Treatment Upcoming Encounters Date Type Department Care Team (Late st Contact Info) Description 11/29/2023 1:30 PM EDT Office Visit Gastroenterology, [facility] [address] [facility] [place] [facility] [place] [address] Vicki Roberts PA-C [address] [place] [id number] 12/17/2023 1:30 PM EDT Nurse Only Hematology/Oncology Treatment, [address] [place] [address] [facility], Chair11 Hem Onc 400 [place] [address] 12/24/2023 11:00 AM EDT Office Visit [facility] 21 [facility] [place] [address] Kinjal Reynoso PA-C 21 [facility] [address] Health Maintenance Due Date Last Done Comments [...] this encounter Medical Devices Implanted Type Area Internal Controls Manager Device Identifier Shelf Expiration Date Model / Serial / Lot Port Implant W/8f Poly Cath - [id number] Implanted:Qty : 1 on 05/18/2023 by Juan Jose Connell, at OR [facility] Right: Chest CR BARD : PERIPHERAL VASCULAR [id number] 11/18/2024 [id number] / / [id number] documented as of this encounter Advance Directives [...] Advance Directives occurred with: Patient Care Teams [place] Relationship Specialty Start Date End Date Kinjal Reynoso PA-C 21 [place] [address] PCP - General Physician Hand Engraver 11/05/22 documented as of this encounter
--- OUTSIDE RECORDS SUMMARY | 2024-01-01 09:12 | External Medical Summary | Summary of Care ---
Author Name Unknown Organization [facility] Address [address] [place] [address] Phone [phone] Care Team Providers Care [employer] Representatives Name Role Phone Kinjal Reynoso PA-C Primary Care Provider [phone] Reason for Visit * Reason Onset Date Comments Medication Refill 11/22/2023 Encounter Details Date Type Department Care Team (Late st Contact Info) Description 11/22/2023 Telephone [facility] [address] [facility] [place] [address] Kinjal Reynoso PA-C [address] [facility] [place] [address] Medication Refill Allergies Active Allergy Reactions Criticality Noted Date [...] OPIOID OVERDOSE - SEEK IMMEDIATE MEDICAL ATTENTION. [email or web address] 2 Each 3 03/31/2023 Active Polyethylene Glycol [...] as directed, through J-tube via feeding pump. 65186 mL 10/05/2023 Active Peptamen AF Oral Liquid Administer 1,000 mL over 12 hours into J tube 4 times a day. 10283 mL 11 09/30/2023 Active Enteral Feeding Piston [...] encounter Miscellaneous Notes * Telephone Encounter - Tamie Gipson RN - 11/22/2023 9:54 AM EDT This was not prescribed by [facility]. * Telephone Encounter - Vicki Robertson LPN - 11/22/2023 9:31 AM EDT Patient calling in regarding Oxycodone. She stated that she was on the tablets but a PA was suppose to be submitted for the medication. Advised that on 11/18/2023 it looks like a PA was completed but there is no response documented from theinsurance. She is completely out of the medication and needs a script either for tablet or liquid. Please advise documented in this encounter Plan of Treatment Upcoming Encounters Date Type Department Care Team (Late st Contact Info) Description 11/29/2023 1:30 PM EDT Office Visit Gastroenterology, [facility] [address] [facility] [phone] Vicki Roberts PA-C 310 [facility] [phone] 12/17/2023 1:30 PM EDT Nurse Only Hematology/Oncology Treatment, [facility] [address] [facility] [address] [facility], Chair Hem Onc 400 [facility] [place] [phone] 12/24/2023 11:00 AM EDT Office Visit [facility] [address] Kinjal Reynoso PA-C [address] [facility] [address] Health Maintenance Due Date Last Done Comments [...] this encounter Medical Devices Implanted Type Area Functional Tester Typewriters Device Identifier Shelf Expiration Date Model / Serial / Lot Port Implant W/8f Poly Cath - [id number] Implanted:Qty : 1 on 05/18/2023 by Juan Jose Connell, at OR [facility] Right: Chest CR BARD : PERIPHERAL VASCULAR [id number] 11/18/2024 [id number] / / [id number] documented as of this encounter Advance Directives [...] Advance Directives occurred with: Patient Care Teams Lifeline Representatives Relationship Specialty Start Date End Date Kinjal Reynoso PA-C 21 [place] [phone] PCP - General Physician Seo Manager 11/05/22 documented as of this encounter
--- OUTSIDE RECORDS SUMMARY | 2024-01-01 09:12 | External Medical Summary | Summary of Care ---
Author Name Unknown Organization [facility] Address [address] [place] [address] Phone [phone] Care Team Providers Care Departure Clerk Name Role Phone Kinjal Reynoso PA-C Primary Care Provider [phone] Reason for Visit * Reason Onset Date Comments Medication Problem 11/18/2023 Encounter Details Date Type Department Care Team (Late st Contact Info) Description 11/18/2023 Telephone [facility] [place] [address] Kinjal Reynoso PA-C [address] [place] [address] Medication Problem Allergies Active Allergy Reactions [...] OPIOID OVERDOSE - SEEK IMMEDIATE MEDICAL ATTENTION. [email or web address] 2 Each 3 03/31/2023 Active Polyethylene Glycol [...] as directed, through J-tube via feeding pump. 99843 mL 10/05/2023 Active Peptamen AF Oral Liquid Administer 1,000 mL over 12 hours into J tube 4 times a day. 26565 mL 11 09/30/2023 Active Enteral Feeding Piston [...] AM EDT PA submitted thru CMM. Douglas: [email or web address] * Telephone Encounter - Sherine Noyola LPN - 11/18/2023 8:30 AM EDT Images from the original note were not included. Kinjal Reynoso PA-C P [facility] Nurse Pool/Class See message below. Recommend starting the prior auth. Previous Messages ----- Message ----- From: Sindhu Aguayo, legal counsel Sent: 11/17/2023 2:24 PM EDT To: Kinjal [...] we cannot fill it. Any questions call [phone] option 0. Thanks, Sindhu Aguayo [facility] documented in this encounter Plan of Treatment Upcoming Encounters Date Type Department Care Team (Late st Contact Info) Description 11/29/2023 1:30 PM EDT Office Visit Gastroenterology, [facility] 310 [facility] [place] [address] Vicki Roberts PA-C [address] [place] [phone] 12/17/2023 1:30 PM EDT Nurse Only Hematology/Oncology Treatment, [address] [place] [address] [facility], Chair11 Hem Onc 400 [facility] [place] [address] 12/24/2023 11:00 AM EDT Office Visit [facility] 21 [place] [address] Kinjal Reynoso PA-C [facility] [address] Health Maintenance Due Date Last Done Comments [...] this encounter Medical Devices Implanted Type Area Psychiatric Clinical Nurse Specialist Device Identifier Shelf Expiration Date Model / Serial / Lot Port Implant W/8f Poly Cath - [id number] Implanted:Qty : 1 on 05/18/2023 by Juan Jose Connell, at OR [facility] Right: Chest CR BARD : PERIPHERAL VASCULAR [id number] 11/18/2024 [id number] / / [id number] documented as of this encounter Advance Directives [...] Advance Directives occurred with: Patient Care Teams Departure Clerk Relationship Specialty Start Date End Date Kinjal Reynoso PA-C [address] [place] [address] PCP - General Physician Internal Audit Senior Manager 11/05/22 documented as of this encounter
--- OUTSIDE RECORDS SUMMARY | 2024-01-01 09:12 | External Medical Summary | Summary of Care ---
Author Name Unknown Organization [facility] Address [address] [place] [address] Phone [phone] Care Team Providers Care Purler Name Role Phone Kinjal Reynoso PA-C Primary Care Provider [phone] Reason for Visit * Reason Comments Abdominal Pain Vomiting Migraine Headache * Auth/Cert Specialty Diagnoses / Procedures Referred By Contdulce t Referred To Contact [facility] [address] [place] [address] Phone: [phone] Emergency Medicine [facility] [address] [place] [address] Referral ID Status Reason Start Date Expiration Date Visits Re quested Visits Authorized [id number] Encounter Details Date Type Department Care Team ([facility] Contact Info) Description 11/18/2023 11:31 AM EDT - 11/18/2023 1:53 PM EDT Emergency [facility] Emergency Department ([facility]) [address] [place], [place] [id number] Ezequiel Stafford, [address] [place] [address] Chronic abdominal pain (Primary Dx) Discharge Disposition: Home - Self [...] as of this encounter (statuses as of 11/19/2023) Medications Medication Sig Dispensed Refills Start Date End Date Status Naloxone HCl 4 MG/0.1ML Nasal Liquid (Narcan Nasal)Indications:Ch ronic pelvic pain in female,MEDICATION USE AGREEMENT,Chronic abdominal pain ADMINISTER 1 SPRAY INTO 1 NOSTRIL FOR SUSPECTED OPIOID OVERDOSE - SEEK IMMEDIATE MEDICAL ATTENTION. [email or web address] 2 Each 3 03/31/2023 Active Polyethylene Glycol [...] as directed, through J-tube via feeding pump. 67839 mL 10/05/2023 Active Peptamen AF Oral Liquid Administer 1,000 mL over 12 hours into J tube 4 times a day. 01638 mL 11 09/30/2023 Active Enteral Feeding Piston [...] as of this encounter (statuses as of 11/19/2023) Active Problems Problem Noted Date Diagnosed Date [...] as of this encounter (statuses as of 11/19/2023) Resolved Problems Problem Noted Date Diagnosed Date [...] as of this encounter (statuses as of 11/19/2023) Immunizations Name Administration Dates Next Due DTaP [...] Sign Reading Time Taken Comments Blood Pressure 123/84 11/18/2023 1:21 PM EDT Pulse 102 11/18/2023 1:21 PM EDT Temperature 36.4 C (97.5 F) 11/18/2023 11:24 AM E DT Respiratory Rate 16 11/18/2023 1:21 PM EDT Oxygen Saturation 98% 11/18/2023 11:24 AM EDT Inhaled Oxygen Concentration - - Weight 73 kg (161 lb) 11/18/2023 11:24 AM EDT Height 157.5 cm (5' 2") 11/18/2023 11:24 AM EDT Body Mass Index 29.45 11/18/2023 11:24 AM EDT documented in this encounter Functional [...] this encounter Discharge Instructions * Discharge Instructions* Ciro Deshpande PA-C - 11/18/2023 1:44 PM EDT You could try yovani tea, or choose to help with your nausea. But otherwise I would suggest following up with your primary doc as well as your specialist. documented in this encounter ED Notes * Meliton Mendenhall RN - 11/18/2023 11:29 AM EDT Pt here for acute on chronic gen abd pain, and associated N/V. Pt also states that she has a headache that feels like "a lot of pressure" moreso on the R side of head. Pt has hx of multiple abd procedures in the past. (-) appendix +gallbladder. Denies any acute urinary changes. Denies any fevers/chills. documented in this encounter Miscellaneous Notes * ED Reconstructive Surgeon Note - Cathleen Bowles RN - 11/18/2023 1:53 PM EDT Pt verbalized understanding of d/c and ambulated out with return precautions documented in this encounter Plan of Treatment Upcoming Encounters Date Type Department Care Team (Late st Contact Info) Description 11/29/2023 1:30 PM EDT Office Visit Gastroenterology, [facility] [address] [place], [place] [address] [phone] Vicki Roberts PA-C [address] [place] [address] [facility] [address] 12/17/2023 1:30 PM EDT Nurse Only Hematology/Oncology Treatment, [facility] [address] [facility] [address] [facility] [address] [facility] On[facility] [address] 12/24/2023 11:00 AM EDT Office [facility] [phone] Kinjal Reynoso PA-C [facility] [address] Health Maintenance Due Date Last Done Comments [...] this encounter Medical Devices Implanted Type Area Heel Edge Inker Machine Device Identifier Shelf Expiration Date Model / Serial / Lot Port Implant W/8f Poly Cath - [id number] Implanted:Qty : 1 on 05/18/2023 by Juan Jose Connell DO at OR [facility] Right: Chest CR BARD : PERIPHERAL VASCULAR [id number] 11/18/2024 [id number] / / [id number] documented as of this encounter Procedures Procedure Name Priority Date/Time Associated Diagnosis Comments EXTRA MEEHAN TOP Routine 11/18/2023 11:58 AM EDT EXTRA GREEN TOP WITH GEL Routine 11/18/2023 11:58 AM EDT EXTRA LIGHT BLUE TOP Routine 11/18/2023 11:58 AM EDT EXTRA TUBES Routine 11/18/2023 11:58 AM EDT DIFFERENTIAL, AUTOMATED STAT 11/18/2023 11:58 AM EDT COMPREHENSIVE METABOLIC PANEL STAT 11/18/2023 11:58 AM EDT CBC STAT 11/18/2023 11:58 AM EDT LIPASE STAT 11/18/2023 11:58 AM EDT CBC STAT 11/18/2023 11:58 AM EDT documented in this encounter Results * EXTRA MEEHAN TOP (11/18/2023 11:58 AM EDT) Blood Venous blood specimen / Unknown Venipuncture / Unknown 11/18/2023 11:58 AM EDT 11/18/2023 12:02 PM EDT Ezequiel Stafford DO LAB BLOOD ORDERABLE S LABORATORY [address] [address] * EXTRA GREEN TOP WITH GEL (11/18/2023 11:58 AM EDT) Blood Venous blood specimen / Unknown Venipuncture / Unknown 11/18/2023 11:58 AM EDT 11/18/2023 12:02 PM EDT [facility] LAB BLOOD ORDERABLE S Performing Organization Address City/[facility]/ZIP Co de Phone Number LABORATORY [address] [address] * EXTRA LIGHT BLUE TOP (11/18/2023 11:58 AM EDT) Blood Venous blood specimen / Unknown Venipuncture / Unknown 11/18/2023 11:58 AM EDT 11/18/2023 12:02 PM EDT [facility] LAB BLOOD ORDERABLE S Performing Organization Address City/[facility]/ZIP Co de Phone Number LABORATORY [address] [address] * DIFFERENTIAL, AUTOMATED (11/18/2023 11:58 AM EDT) WBC 6.32 4.00 - 10.80 K/uL 11/18/2023 12:06 PM EDT LABORATORY [facility] Neutrophils % 55.5 40.0 - 75.0 % 11/18/2023 12:06 PM EDT LABORATORY GL Lymphocytes % 35.6 18.0 - 42.0 % 11/18/2023 12:06 PM EDT LABORATORY [facility] Monocytes % 7.6 1.0 - 11.0 % 11/18/2023 12:06 PM EDT LABORATORY GL Eosinophils % 0.8 0.0 - 6.0 % 11/18/2023 12:06 PM EDT LABORATORY GL Basophils % 0.2 0.0 - 2.0 % 11/18/2023 12:06 PM EDT LABORATORY GL Immature Granulocytes % 0.3 0.0 - 2.0 % 11/18/2023 12:06 PM EDT LABORATORY GL Absolute Neutrophils 3.51 1.80 - 7.70 K/uL 11/18/2023 12:06 PM EDT LABORATORY GL Absolute Lymphocytes 2.25 1.00 - 4.80 K/ul 11/18/2023 12:06 PM EDT LABORATORY GL Absolute Monocytes 0.48 0.00 - 1.10 K/uL 11/18/2023 12:06 PM EDT LABORATORY GL Absolute Eosinophils 0.05 0.00 - 0.70 K/uL 11/18/2023 12:06 PM EDT LABORATORY [facility] Absolute Basophils 0.01 0.00 - 0.20 K/uL 11/18/2023 12:06 PM EDT LABORATORY [facility] Absolute Immature Granulocytes 0.02 0.00 - 0.20 K/uL 11/18/2023 12:06 PM EDT LABORATORY [facility] Blood Venous blood specimen / Unknown Venipuncture / Unknown 11/18/2023 11:58 AM EDT 11/18/2023 12:01 PM EDT Ciro Deshpande PA-C LAB BLOOD ORD ERABLES LABORATORY [address] [address] * CBC (11/18/2023 11:58 AM EDT) WBC 6.32 4.00 - 10.80 K/uL 11/18/2023 12:06 PM EDT LABORATORY [facility] RBC 4.41 3.85 - 5.15 M/uL 11/18/2023 12:06 PM EDT LABORATORY [facility] HGB 14.0 12.0 - 15.3 g/dL 11/18/2023 12:06 PM EDT LABORATORY [facility] HCT 39.3 36.0 - 45.2 % 11/18/2023 12:06 PM EDT LABORATORY [facility] MCV 89.1 81.5 - 97.5 fL 11/18/2023 12:06 PM EDT LABORATORY [facility] MCH 31.7 27.0 - 34.0 pg 11/18/2023 12:06 PM EDT LABORATORY [facility] MCHC 35.6 32.0 - 36.0 g/dL 11/18/2023 12:06 PM EDT LABORATORY [facility] RDW 12.3 11.5 - 15.5 % 11/18/2023 12:06 PM EDT LABORATORY [facility] PLT 203 140 - 400 K/uL 11/18/2023 12:06 PM EDT LABORATORY [facility] MPV 10.4 6.6 - 11.1 fL 11/18/2023 12:06 PM EDT LABORATORY [facility] nRBCs 0 <=0 /100 WBCs 11/18/2023 12:06 PM EDT LABORATORY [facility] Blood Venous blood specimen / Unknown Venipuncture / Unknown 11/18/2023 11:58 AM EDT 11/18/2023 12:01 PM EDT Ciro CONKLINC LAB BLOOD ORD ERABLES Performing Organization Address City/[facility]/ZIP Co de Phone Number LABORATORY [address] [address] * LIPASE (11/18/2023 11:58 AM EDT) Lipase 14 13 - 60 U/L 11/18/2023 12:21 PM EDT LABORATORY GL Blood Venous blood specimen / Unknown Venipuncture / Unknown 11/18/2023 11:58 AM EDT 11/18/2023 12:01 PM EDT Ciro Deshpande PA-C LAB BLOOD ORD ERABLES Performing Organization Address City/[facility] Co de Phone Number LABORATORY [address] [address] * (ABNORMAL) COMPREHENSIVE METABOLIC PANEL (11/18/2023 11:58 AM EDT) BUN 9 6 - 20 mg/dL 11/18/2023 12:21 PM EDT LABORATORY [facility] Creatinine 0.7 0.5 - 1.0 mg/dL 11/18/2023 12:21 PM EDT LABORATORY [facility] Estimated Glomerular Filtration Rate >90 >=60 mL/min 11/18/2023 12:21 PM EDT LABORATORY [facility] Comment:eGFR is calculated b ased on the CKD-EPI 2020 equation Sodium 137 135 - 146 mmol/L 11/18/2023 12:21 PM EDT LABORATORY GL[facility] Potassium 3.3(L) 3.5 - 5.1 mmol/L 11/18/2023 12:21 PM EDT LABORATORY GL[facility] Chloride 106 98 - 107 mmol/L 11/18/2023 12:21 PM EDT LABORATORY GLH CO2 20(L) 22 - 32 mmol/L 11/18/2023 12:21 PM EDT LABORATORY GL[facility] Anion Gap 11 7 - 15 mmol/L 11/18/2023 12:21 PM EDT LABORATORY GLH Glucose 116 70 - 120 mg/dL 11/18/2023 12:21 PM EDT LABORATORY GL[facility] Albumin 4.1 3.8 - 5.0 g/dL 11/18/2023 12:21 PM EDT LABORATORY GL[facility] AST 15 10 - 35 U/L 11/18/2023 12:21 PM EDT LABORATORY GL[facility] Alkaline Phosphatase 87 35 - 130 U/L 11/18/2023 12:21 PM EDT LABORATORY GL[facility] Bilirubin, Total 0.3 <=1.2 mg/dL 11/18/2023 12:21 PM EDT LABORATORY [facility] Calcium 9.0 8.4 - 10.2 mg/dL 11/18/2023 12:21 PM EDT LABORATORY [facility] Protein 7.0 6.0 - 8.3 g/dL 11/18/2023 12:21 PM EDT LABORATORY GL[facility] ALT 9(L) 10 - 35 U/L 11/18/2023 12:21 PM EDT LABORATORY GL[facility] Blood Venous blood specimen / Unknown Venipuncture / Unknown 11/18/2023 11:58 AM EDT 11/18/2023 12:01 PM EDT Ciro Deshpande PA-C LAB BLOOD ORD ERABLES LABORATORY GL [address] [place] [address] documented in this encounter Visit Diagnoses Diagnosis Chronic abdominal pain- Primary Abdominal pain, unspecified site documented in this encounter Administered Medications Inactive Administered Medications - up to 3 most recent administrations Medication Order MAR Action Action Date Dose Rate Site oxyCODONE (Roxicodone) oral syrup 5 mg 5 mg, Oral, ONCE, On [place] 11/18/23 at 1330, For 1 dose Given 11/18/2023 1:12 PM EDT 5 mg potassium CHLORide liquid 40 mEq 40 mEq, Oral, ONCE, On [place] 11/18/23 at 1330, For 1 dose, To avoid GI irritation, must further diilute 15 ml in 3 ounces H2O or other fluid Given 11/18/2023 1:11 PM EDT 40 mEq promethazine (Phenergan) tab 25 mg 25 mg, Oral, ONCE, On [place] 11/18/23 at 1230, For 1 dose Given 11/18/2023 12:27 PM EDT 25 mg documented in this encounter Active and Recently Administered Medications Times are shown in EDT. Scheduled Medication Order 11/16/2023 11/17/2023 11/18/2023 oxyCODONE (Roxicodone) oral syrup 5 mg (COMPLETED) 5 mg, Oral, ONCE, On [place] 11/18/23 at 1330, For 1 dose 1312 (Given - Provid er: Cathleen Bowles RN) potassium CHLORide liquid 40 mEq (COMPLETED) 40 mEq, Oral, ONCE, On [place] 11/18/23 at 1330, For 1 dose, To avoid GI irritation, must further diilute 15 ml in 3 ounces H2O or other fluid 1311 (Given - Provid er: Cathleen Bowles RN) promethazine (Phenergan) tab 25 mg (COMPLETED) 25 mg, Oral, ONCE, On [place] 11/18/23 at 1230, For 1 dose 1227 (Given - Provid er: Cathleen Bowles RN) documented in this encounter Advance Directives [...] Advance Directives occurred with: Patient Care Teams Purler Relationship Specialty Start Date End Date Kinjal Reynoso PA-C [address] [place] [address] [address] PCP - General Physician Drug Abuse Resistance Education Officer 11/05/22 documented as of this encounter
--- OUTSIDE RECORDS SUMMARY | 2024-01-01 09:12 | External Medical Summary ---
Author Name Unknown Address Unknown Organization K1F:LABORATORY GL - [address] [facility] [place] [address] Laboratory Report Ordering Provider Test Date Status ASHANTI MENENDEZ 11/18/2023 11:58:18 Final Observation Date Value Abnormality Reference (Units ) Status SYNC LEUKOCYTES IN BLOOD BY AUTOMATED COUNT 11/18/2023 11:58:18 6.32 4.00-10.80 (K/uL) Final Segs 11/18/2023 11:58:18 55.5 40.0-75.0 (%) Final Lymphs % 11/18/2023 11:58:18 35.6 18.0-42.0 (%) Final Monos 11/18/2023 11:58:18 7.6 1.0-11.0 (%) Final Eosinophils 11/18/2023 11:58:18 0.8 0.0-6.0 (%) Final Basos 11/18/2023 11:58:18 0.2 0.0-2.0 (%) Final Immature Granulocyte, Percent 11/18/2023 11:58:18 0.3 0.0-2.0 (%) Final Absolute Segs 11/18/2023 11:58:18 3.51 1.80-7.70 (K/uL) Final Lymphs, absolute 11/18/2023 11:58:18 2.25 1.00-4.80 (K/ul) Final Monos, Abs 11/18/2023 11:58:18 0.48 0.00-1.10 (K/uL) Final Eos, Abs 11/18/2023 11:58:18 0.05 0.00-0.70 (K/uL) Final Basos, Abs 11/18/2023 11:58:18 0.01 0.00-0.20 (K/uL) Final Immature Granulocytes, Number 11/18/2023 11:58:18 0.02 0.00-0.20 (K/uL) Final Performing Location LABORATORY [facility] - [address] [place] [address]
--- OUTSIDE RECORDS SUMMARY | 2024-01-01 09:12 | External Medical Summary | Summary of Care ---
Author Name Unknown Organization [facility] Address [address] [place] [address] Phone [phone] Care Team Providers Care Dolphin Trainer Name Role Phone Kinjal Reynoso PA-C Primary Care Provider [phone] Reason for Visit * Reason Onset Date Comments Medication Refill 11/22/2023 Encounter Details Date Type Department Care Team (Late st Contact Info) Description 11/22/2023 Telephone [facility] 21 [facility] [place] [address] Kinjal Reynoso PA-C 21 [facility] [place] [address] Medication Refill Allergies Active Allergy [...] OPIOID OVERDOSE - SEEK IMMEDIATE MEDICAL ATTENTION. [email or web address] 2 Each 3 03/31/2023 Active Polyethylene Glycol [...] as directed, through J-tube via feeding pump. 66228 mL 11 10/05/2023 Active Peptamen AF Oral Liquid Administer 1,000 mL over 12 hours into J tube 4 times a day. 28359 mL 11 09/30/2023 09/25/19 25 Active Enteral [...] Encounter - Kinjal Reynoso PA-C - 11/22/2023 1:40 PM EDT See refill encounter. Refill signed. * Telephone Encounter - Tamie Gipson RN [...] 11/29/2023 1:30 PM EDT Office Visit Gastroenterology, [facility] [address] [facility] [phone] Vicki Roberts PA-C [address] [place] [address] 12/17/2023 1:30 PM EDT Nurse Only Hematology/Oncology Treatment, [facility] [address] [facility], Chair Hem Onc [address] [facility] [address] 12/24/2023 11:00 AM EDT Office Visit [facility] [place] [phone] Kinjal Reynoso PA-C [facility] [phone] Health Maintenance Due Date Last Done Comments [...] this encounter Medical Devices Implanted Type Area Curing Press Operator Device Identifier Shelf Expiration Date Model / Serial / Lot Port Implant W/8f Poly Cath - [id number] Implanted:Qty : 1 on 05/18/2023 by Juan Jose Connell, at OR [facility] Right: Chest CR BARD : PERIPHERAL VASCULAR [id number] 11/18/2024 [id number] / / [id number] documented as of this encounter Advance Directives [...] Advance Directives occurred with: Patient Care Teams Dolphin Trainer Relationship Specialty Start Date End Date Kinjal Reynoso PA-C 21 [facility] [place] [address] PCP - General Physician Opal Miner 11/05/22 documented as of this encounter
--- OUTSIDE RECORDS SUMMARY | 2024-01-01 09:12 | External Medical Summary | Summary of Care ---
Author Name Unknown Organization [facility] Address [address] [place] [address] Phone [phone] Care Team Providers Care Sales Agent Business Services Name Role Phone Kinjal Reynoso PA-C Primary Care Provider [phone] Reason for Visit * Reason Onset Date Comments Medication Problem 11/18/2023 Encounter Details Date Type Department Care Team (Late st Contact Info) Description 11/18/2023 Telephone [facility] [place] [address] Kinjal Reynoso PA-C 21 [facility] [place] [address] Medication Problem Allergies Active Allergy Reactions [...] OPIOID OVERDOSE - SEEK IMMEDIATE MEDICAL ATTENTION. [email or web address] 2 Each 3 03/31/2023 Active Polyethylene Glycol [...] as directed, through J-tube via feeding pump. 32275 mL 10/05/2023 Active Peptamen AF Oral Liquid Administer 1,000 mL over 12 hours into J tube 4 times a day. 73774 mL 11 09/30/2023 Active Enteral Feeding Piston [...] to the tab. Te already sent to [facility] on 11/18 and today 11/21 for a refill of tabs or solution. * Telephone Encounter - Yumiko Alvares CMA - 11/18/2023 9:47 AM EDT [place] submitted thru CMM. [place]: [id number] * Telephone Encounter - Sherine Noyola LPN - 11/18/2023 8:30 AM EDT Images from the original note were not included. Kinjal Reynoso PA-C P [place] [facility] Nurse Pool/Class See message below. Recommend starting the prior auth. Previous Messages ----- Message ----- From: Sindhu Aguayo, biomedical engineer Sent: 11/17/2023 2:24 PM EDT To: Kinjal [...] we cannot fill it. Any questions call [phone] [address] Sindhu Melton [facility] documented in this encounter Plan of Treatment Upcoming Encounters Date Type Department Care Team (Late st Contact Info) Description 11/29/2023 1:30 PM EDT Office Visit Gastroenterology, [facility] [address] [place] [address] [place] [phone] Vicki Roberts PA-C [address] [place], [place] [address] [address] 12/17/2023 1:30 PM EDT Nurse Only Hematology/Oncology Treatment, [address] [place] [address] [facility], Chair11 Hem Onc [address] [place] [address] 12/24/2023 11:00 AM EDT Office Visit [facility] [place] [address] [place] [address] [phone] Kinjal Reynoso PA-C [address] [place] [address] Health Maintenance Due Date Last Done Comments [...] this encounter Medical Devices Implanted Type Area Mobile Home Mechanic Device Identifier Shelf Expiration Date Model / Serial / Lot Port Implant W/8f Poly Cath - [id number] Implanted:Qty : 1 on 05/18/2023 by Juan Jose Connell DO at OR [facility] Right: Chest CR BARD : PERIPHERAL VASCULAR [id number] 11/18/2024 [id number] / / [id number] documented as of this encounter Advance Directives [...] Advance Directives occurred with: Patient Care Teams Sales Agent Business Services Relationship Specialty Start Date End Date Kinjal Reynoso PA-C [address] [place] [address] PCP - General Physician Exercise Specialist 11/05/22 documented as of this encounter
--- OUTSIDE RECORDS SUMMARY | 2024-01-01 09:12 | External Medical Summary | Summary of Care ---
Author Name Unknown Organization [facility] Address [address] [place] [address] Phone [phone] Care Team Providers Care Management Intern Name Role Phone Kinjal Reynoso PA-C Primary Care Provider [phone] Reason for Visit * Reason Comments Treatment Port flush Encounter Details Date Type Department Care Team (Late Contact Info) Description 11/16/2023 8:00 AM EDT Nurse Only Hematology/Oncology Treatment, [facility] [address] [place] [address] [facility], Chair2 Hem Onc [address] [place], [place] [phone] Treatment (Port flush) Allergies Active Allergy Reactions Criticality Noted Date [...] as of this encounter (statuses as of 11/16/2023) Medications Medication Sig Dispensed Refills Start Date End Date Status Naloxone HCl 4 MG/0.1ML Nasal Liquid (Narcan Nasal)Indications:Ch ronic pelvic pain in female,MEDICATION USE AGREEMENT,Chronic abdominal pain ADMINISTER 1 SPRAY INTO 1 NOSTRIL FOR SUSPECTED OPIOID OVERDOSE - SEEK IMMEDIATE MEDICAL ATTENTION. [email or web address] 2 Each 3 03/31/2023 Active Polyethylene Glycol [...] as directed, through J-tube via feeding pump. 68050 mL 11 10/05/2023 Active Peptamen AF Oral Liquid Administer 1,000 mL over 12 hours into J tube 4 times a day. 36497 mL 11 09/30/2023 09/24/2024 Active Enteral Feeding Piston Syringe Use as directed. 30 Each 11 09/30/2023 Active oxyCODONE HCl 5 MG Oral Tablet (Oxy IR)Indications:Gastr oparesis,Chronic pelvic pain in female,Malfunction of jejunostomy tube (HCC) Take 1 Tablet by mouth every 6 hours as needed for Pain, Severe (No more than 4 doses in 24 hours.). Do not start before November 18, 2023. 108 Tablet 11/18/2023 Active documented as of this encounter (statuses as of 11/16/2023) Active Problems Problem Noted Date Diagnosed Date [...] as of this encounter (statuses as of 11/16/2023) Resolved Problems Problem Noted Date Diagnosed Date [...] as of this encounter (statuses as of 11/16/2023) Immunizations Name Administration Dates Next Due DTaP [...] No 2023 documented as of this encounter Nursing Notes * Daria Way, RN - 11/16/2023 8:12 AM EDT Chart # 7 VAD (Venous Access Device) accessed with #19G 3/4" without difficulty. VAD flushed with 10 ml NSS and Heparin 5 ml (100 units/ml). Obando needle removed intact. Patient left IVC by ambulating. Unaccompanied. Voiced no complaints. Daria Way RN 11/16/2023 8:12 AM documented in this encounter Plan of Treatment Upcoming Encounters Date Type Department Care Team (Late st Contact Info) Description 11/29/2023 1:30 PM EDT Office Visit Gastroenterology, [facility] [address] [place] [phone] Vicki Roberts PA-C 310 [facility] [place] [address] 12/17/2023 1:30 PM EDT Nurse Only Hematology/Oncology Treatment, [facility] [address] [facility] [address] [facility], Chair11 Hem Onc 400 [facility] [address] 12/24/2023 11:00 AM EDT Office Visit [facility] [place] [facility] [phone] Kinjal Reynoso PA-C [facility] [address] Health Maintenance Due Date Last Done Comments [...] this encounter Medical Devices Implanted Type Area Affirmative Action Officer Device Identifier Shelf Expiration Date Model / Serial / Lot Port Implant W/8f Poly Cath - [id number] Implanted:Qty : 1 on 05/18/2023 by Juan Jose Connell, DO at OR [facility] Right: Chest CR BARD : PERIPHERAL VASCULAR [id number] 11/18/2024 [id number] / / [id number] documented as of this encounter Visit Diagnoses Diagnosis Port-A-Cath in place- Primary Other postprocedural status documented in this encounter Administered Medications Active Administered Medications - up to 3 most recent administrations Medication Order MAR Action Action Date Dose Rate Site hEParin 100 UNIT/ML Lock Flush inj 500 Units 500 Units (5 mL), IV Lock, PRN Other, IV Flush, Starting on Wed11/16/23 at 0759, Until Wed11/17/23 at 0758, For 24 hours, Do not flush if lock, PICC, or central line not in place; IV infusing or unable to flush. Given 11/16/2023 8:07 AM EDT 500 Units sodium chloride 0.9 % flush central line 10 mL 10 mL, IV Push, PRN Other, IV Flush, Starting on Wed11/16/23 at 0759, Until Wed11/17/23 at 0758, For 24 hours, Do not flush if lock, PICC, or central line not in place; IV infusing or unable to flush. Given 11/16/2023 8:07 AM EDT 10 mL documented in this encounter Advance Directives * [...] Advance Directives occurred with: Patient Care Teams Management Intern Relationship Specialty Start Date End Date Kinjal Reynoso PA-C [address] [place] [address] [address] PCP - General Physician Generation Technician 11/05/22 documented as of this encounter
--- OUTSIDE RECORDS SUMMARY | 2024-01-01 09:12 | External Medical Summary ---
Author Name Unknown Address Unknown Organization K1F:[facility] - [address] [place] [address] Laboratory Report Ordering Provider Test Date Status ASHANTI MENENDEZ 11/18/2023 11:58:18 Final Observation Date Value Abnormality Reference (Units ) Status Lipase 11/18/2023 11:58:18 14 13-60 (U/L ) Final Performing Location [facility] - [address] [address]
--- OUTSIDE RECORDS SUMMARY | 2024-01-01 09:13 | External Medical Summary | Summary of Care ---
Author Name Unknown Organization [facility] Address [address] [place] [address] Phone [phone] Care Team Providers Care Bonding And Composite Fabricator Name Role Phone Kinjal eRynoso PA-C Primary Care Provider [phone] Encounter Details Date Type Department Care Team (Late st Contact Info) Description 11/13/2023 [facility] Only [facility] 21 [facility] [place] [address] Ace Leonard MD 21 [facility] [place] [address] Allergies Active Allergy Reactions Criticality [...] as of this encounter (statuses as of 11/13/2023) Medications Medication Sig Dispensed Refills Start Date End Date Status Naloxone HCl 4 MG/0.1ML Nasal Liquid (Narcan Nasal)Indications:Ch ronic pelvic pain in female,MEDICATION USE AGREEMENT,Chronic abdominal pain ADMINISTER 1 SPRAY INTO 1 NOSTRIL FOR SUSPECTED OPIOID OVERDOSE - SEEK IMMEDIATE MEDICAL ATTENTION. [email or web address] 2 Each 3 03/31/2023 Active Polyethylene Glycol [...] as directed, through J-tube via feeding pump. 65529 mL 11 10/05/2023 Active Peptamen AF Oral Liquid Administer 1,000 mL over 12 hours into J tube 4 times a day. 61992 mL 11 09/30/2023 09/24/2024 Active Enteral Feeding [...] as of this encounter (statuses as of 11/13/2023) Active Problems Problem Noted Date Diagnosed Date [...] as of this encounter (statuses as of 11/13/2023) Resolved Problems Problem Noted Date Diagnosed Date [...] as of this encounter (statuses as of 11/13/2023) Immunizations Name Administration Dates Next Due DTaP [...] Care Team (Late st Contact Info) Description 11/16/2023 8:00 AM EDT Nurse Only Hematology/Oncology Treatment, [facility] [address] [place] [address] [facility], Chair2 Hem Onc 400 [facility] [place] [address] 11/29/2023 1:30 PM EDT Office Visit Gastroenterology, [facility] [address] [facility] [place] [phone] Vicki Roberts PA-C 310 [facility] [place] [address] 12/24/2023 11:00 AM EDT Office Visit [facility] [place] [address] [place] [address] [address] Kinjal Reynoso PA-C [address] [place] [address] [address] Health Maintenance Due Date Last Done Comments [...] encounter Medical Devices Implanted Type Area Supervisor Baking Device Identifier Shelf Expiration Date Model / Serial / Lot Port Implant W/8f Poly Cath - [id number] Implanted:Qty : 1 on 05/18/2023 by Juan Jose Connell, at OR [facility] Right: Chest CR BARD : PERIPHERAL VASCULAR [id number] 11/18/2024 [id number] / / [id number] documented as of this encounter Advance Directives [...] Advance Directives occurred with: Patient Care Teams Bonding And Composite Fabricator Relationship Specialty Start Date End Date Kinjal Reynoso PA-C [address] [place] [address] [address] PCP - General Physician Avionics Technician 11/05/22 documented as of this encounter
--- OUTSIDE RECORDS SUMMARY | 2024-01-01 09:13 | External Medical Summary | Summary of Care ---
Author Name Unknown Organization [facility] Address [address] [place] [address] Phone [phone] Care Team Providers Care It Technical Support Specialist Name Role Phone Kinjal Reynoso PA-C Primary Care Provider [phone] Reason for Visit * Reason Onset Date Comments Scheduling 10/27/2023 Port Flush Encounter Details Date Type Department Care Team (Late st Contact Info) Description 10/27/2023 Telephone Hematology/Oncology, [facility] 400 [facility] [place] [address] Kinjal Reynoso PA-C 21 [facility] [place] [phone] Scheduling (Port Flush) Allergies Active Allergy Reactions Criticality Noted Date [...] as of this encounter (statuses as of 11/01/2023) Medications Medication Sig Dispensed Refills Start Date End Date Status Naloxone HCl 4 MG/0.1ML Nasal Liquid (Narcan Nasal)Indications:Ch ronic pelvic pain in female,MEDICATION USE AGREEMENT,Chronic abdominal pain ADMINISTER 1 SPRAY INTO 1 NOSTRIL FOR SUSPECTED OPIOID OVERDOSE - SEEK IMMEDIATE MEDICAL ATTENTION. [email or web address] 2 Each 3 03/31/2023 Active Polyethylene Glycol [...] at noon and 1 Capsule before bedtime. 0 08/12/2023 Active Promethazine HCl 25 MG Oral Tablet (Phenergan) Take 1 Tablet by mouth every 6 hours as needed for Nausea for up to 120 doses. 120 Tablet 0 08/15/2023 Active Ondansetron 4 MG Oral Tablet Disintegrating (Zofran) Place 1 Tablet on tongue every 8 hours as needed for Nausea. dissolve on tongue. 30 Tablet 2 09/13/2023 Active Peptamen 1.5 Donald Oral Liquid Administer 4 containers (1000mL) over 12 hours daily as directed, through J-tube via feeding pump. 93187 mL 11 10/05/2023 Active Peptamen AF Oral Liquid Administer 1,000 mL over 12 hours into J tube 4 times a day. 58004 mL 11 09/30/2023 09/24/2024 Active Enteral Feeding Piston Syringe Use as directed. 30 Each 09/30/2023 Active oxyCODONE HCl 5 MG Oral Tablet (Oxy IR)Indications:Gastr oparesis,Chronic pelvic pain in female,Malfunction of jejunostomy tube (HCC) Take 1 Tablet by mouth every 6 hours as needed for severe pian. (No more than 4 doses in 24 hours.). Must last 28 days. 108 Tablet 0 10/21/2023 Active documented as of this encounter (statuses as of 11/01/2023) Active Problems Problem Noted Date Diagnosed Date [...] as of this encounter (statuses as of 11/01/2023) Resolved Problems Problem Noted Date Diagnosed Date [...] as of this encounter (statuses as of 11/01/2023) Immunizations Name Administration Dates Next Due DTaP [...] encounter Miscellaneous Notes * Telephone Encounter - Abbey Huynh OSA - 10/27/2023 8:14 AM EDT LMOM for pt to call back to schedule Port flush q 6-8 weeks . Please transfer call to IV Infusion Schedulers, Anaya or Abbey Ext [phone] or [phone] * Telephone Encounter - Elsa Levy LPN - 10/27/2023 7:20 AM EDT Please schedule Port flush Q6-8 weeks Kinjal Reynoso documented in this encounter Plan of Treatment Upcoming Encounters Date Type Department Care Team (Late st Contact Info) Description 11/12/2023 8:00 AM EDT Telemedicine Nutrition & Weight Management, [facility] [address] [place] [address] Kaity Yap RDN [address] [place] [address] 12/24/2023 11:00 AM EDT Office Visit [facility] [place] [address] [facility] [place] [address] Kinjal Reynoso PA-C 21 [facility] [place] [phone] Health Maintenance Due Date Last Done Comments [...] this encounter Medical Devices Implanted Type Area Cargo Surveyor Device Identifier Shelf Expiration Date Model / Serial / Lot Port Implant W/8f Poly Cath - [id number] Implanted:Qty : 1 on 05/18/2023 by Juan Jose Connell, at OR [facility] Right: Chest CR BARD : PERIPHERAL VASCULAR [id number] 11/18/2024 [id number] / / [id number] documented as of this encounter Advance Directives Latest Code Status on File Code Status Date Activated Date Inactivated Comments Full Code 2023 5:38 AM 09/07/2023 6:53 PM This order reflects the patients wishes and were consensually agreed upon. Question Answer Comments Discussion of Advance Directives occurred with: Patient Does the patient have a Living Will? No Does the patient have Health Care Power of Calendering Supervisor? No Code Status History Code Status Date Activated Date Inactivated Comments Full Code 08/08/2023 8:32 PM 08/12/2023 8:10 PM This order reflects the patients wishes and were consensually agreed upon. Question Answer Comments Discussion of Advance Directives occurred with: Patient Full Code 07/07/2023 3:02 AM 07/08/2023 9:20 PM This order reflects the patients wishes and were consensually agreed upon. Question Answer Comments Discussion of Advance Directives occurred with: Patient Full Code 02/02/2023 10:02 AM 02/03/2023 3:24 PM This order reflects the patients wishes and were consensually agreed upon. Question Answer Comments Discussion of Advance Directives occurred with: Patient Full Code 07/19/2022 9:49 AM 08/12/2022 10:43 PM This order reflects the patients wishes and were consensually agreed upon. Question Answer Comments Discussion of Advance Directives occurred with: Patient Care Teams It Technical Support Specialist Relationship Specialty Start Date End Date Kinjal Reynoso PA-C [address] [place] [address] [phone] PCP - General Physician Cmv Driver 11/05/22 documented as of this encounter
--- OUTSIDE RECORDS SUMMARY | 2024-01-01 09:13 | External Medical Summary | Summary of Care ---
Author Name Unknown Organization [facility] Address [address] [place] [address] Phone [phone] Care Team Providers Care Systems Trainer Name Role Phone Kinjal Reynoso PA-C Primary Care Provider [phone] Encounter Details Date Type Department Care Team (Late st Contact Info) Description 11/12/2023 Telephone Nutrition & Weight Management, [facility] [address] [place] [address] Kaity Yap RDN [address] [place] [address] Allergies Active Allergy Reactions Criticality Noted Date [...] as of this encounter (statuses as of 11/12/2023) Medications Medication Sig Dispensed Refills Start Date End Date Status Naloxone HCl 4 MG/0.1ML Nasal Liquid (Narcan Nasal)Indications:Ch ronic pelvic pain in female,MEDICATION USE AGREEMENT,Chronic abdominal pain ADMINISTER 1 SPRAY INTO 1 NOSTRIL FOR SUSPECTED OPIOID OVERDOSE - SEEK IMMEDIATE MEDICAL ATTENTION. [email or web address] 2 Each 3 03/31/2023 Active Polyethylene Glycol [...] as directed, through J-tube via feeding pump. 91517 mL 11 10/05/2023 Active Peptamen AF Oral Liquid Administer 1,000 mL over 12 hours into J tube 4 times a day. 72400 mL 11 09/30/2023 09/24/2024 Active Enteral Feeding [...] as of this encounter (statuses as of 11/12/2023) Active Problems Problem Noted Date Diagnosed Date [...] as of this encounter (statuses as of 11/12/2023) Resolved Problems Problem Noted Date Diagnosed Date [...] as of this encounter (statuses as of 11/12/2023) Immunizations Name Administration Dates Next Due DTaP [...] the money to buy more. Never true 02/02/20 24 Within the past 12 months, t [...] encounter Miscellaneous Notes * Telephone Encounter - Jovanna Ward RN - 11/12/2023 10:52 AM EDT That sounds fine. Just call and see if that will work for them. Thanks! * Telephone Encounter - Cecy Martinez OSA - 11/12/2023 10:49 AM EDT As of now, no appointments available until 11/29/23. Does this pt need to be sooner than that? * Telephone Encounter - Jovanna Ward RN - 11/12/2023 10:24 AM EDT Schedulers-please schedule with Elaine or Sylvia. Thanks! * Telephone Encounter - Baldemar Lew LPN - 11/12/2023 9:22 AM EDT Scheduling this patient needs follow up appointments with Kaity Yap RDN and a gastro provider as soon as possible. * Telephone Encounter - Baldemar Lew LPN - 11/12/2023 8:19 AM EDT The pt stated she went to the ED on 11/09/2023 because she was having abdominal pain, back pain, andvomiting. The pt was admitted to [facility] in [place], [place]. She had a CT scan inthe ED and they suspected a bowel obstruction with an ileus. The pt stated the hospital tried Miralax but it was ineffective. She has not had a bowel movement in over 10 days. The hospital dischargedher before she had a BM, but they did have her start Metamucil. The pt stated she is still having N/V and ABD and back pain. The hospital put her on Vital 1.5 for now. The pt will be back in [place] on Wednesday11/15/2023. Her last feed was 11/10/2023 and the hospital was only able to get 50% in the bag into her. The pt has not been established with a GI provider in sometime. Faxed Records request for all documentation related to the pt's hospital stay to the [facility] in [place], [place]. documented in this encounter Plan of Treatment Upcoming Encounters Date Type Department Care Team (Late st Contact Info) Description 11/16/2023 8:00 AM EDT Nurse Only Hematology/Oncology Treatment, [address] [place] [address] [facility], Chair2 Hem Onc [address] [place] [address] 12/24/2023 11:00 AM EDT Office Visit [facility] [place] [address] [place] [address] [phone] Kinjal Reynoso PA-C [address] [place] [address] [address] Health Maintenance Due Date Last Done Comments [...] this encounter Medical Devices Implanted Type Area Air Saw Operator Device Identifier Shelf Expiration Date Model / Serial / Lot Port Implant W/8f Poly Cath - [id number] Implanted:Qty : 1 on 05/18/2023 by Juan Jose Connell DO at OR [facility] Right: Chest CR BARD : PERIPHERAL VASCULAR [id number] 11/18/2024 [id number] / / [id number] documented as of this encounter Advance Directives [...] Advance Directives occurred with: Patient Care Teams Systems Trainer Relationship Specialty Start Date End Date Kinjal Reynoso PA-C [address] [place] [address] [address] PCP - General Physician Primer Charger 11/05/22 documented as of this encounter
--- OUTSIDE RECORDS SUMMARY | 2024-01-01 09:13 | External Medical Summary | Summary of Care ---
Author Name Unknown Organization [facility] Address [address] [place] [address] Phone [phone] Care Team Providers Care Gelatin Dynamite Packing Operator Name Role Phone Kinjal Reynoso PA-C Primary Care Provider [phone] Encounter Details Date Type Department Care Team (Late st Contact Info) Description 10/27/2023 Orders Only Hematology/Oncology, [facility] [address] [place] [address] Kinjal Reynoso PA-C [address] [place] [address] Allergies Active Allergy Reactions Criticality [...] as of this encounter (statuses as of 10/27/2023) Medications Medication Sig Dispensed Refills Start Date End Date Status Naloxone HCl 4 MG/0.1ML Nasal Liquid (Narcan Nasal)Indications:Ch ronic pelvic pain in female,MEDICATION USE AGREEMENT,Chronic abdominal pain ADMINISTER 1 SPRAY INTO 1 NOSTRIL FOR SUSPECTED OPIOID OVERDOSE - SEEK IMMEDIATE MEDICAL ATTENTION. [email or web address] 2 Each 3 03/31/2023 Active Polyethylene Glycol [...] as directed, through J-tube via feeding pump. 11069 mL 11 10/05/2023 Active Peptamen AF Oral Liquid Administer 1,000 mL over 12 hours into J tube 4 times a day. 77351 mL 11 09/30/2023 09/24/2024 Active Enteral Feeding [...] as of this encounter (statuses as of 10/27/2023) Active Problems Problem Noted Date Diagnosed Date [...] as of this encounter (statuses as of 10/27/2023) Resolved Problems Problem Noted Date Diagnosed Date [...] as of this encounter (statuses as of 10/27/2023) Immunizations Name Administration Dates Next Due DTaP [...] AM EDT Telemedicine Nutrition & Weight Management, [facility] [address] [place] [address] Kaity Yap RDN [address] [place] [address] 12/24/2023 11:00 AM EDT Office Visit [facility] [place] [address] [place] [phone] Kinjal Reynoso PA-C [address] [place] [address] [address] Health Maintenance Due Date Last Done Comments [...] this encounter Medical Devices Implanted Type Area Pest Control Supervisor Device Identifier Shelf Expiration Date Model / Serial / Lot Port Implant W/8f Poly Cath - [id number] Implanted:Qty : 1 on 05/18/2023 by Juan Jose Connell, DO at OR [facility] Right: Chest CR BARD : PERIPHERAL VASCULAR [id number] 11/18/2024 [id number] / / [id number] documented as of this encounter Advance Directives [...] the patient have Health Care Power of Stacker Driver? No Code Status History Code Status Date [...] Advance Directives occurred with: Patient Care Teams Gelatin Dynamite Packing Operator Relationship Specialty Start Date End Date Kinjal Reynoso PA-C [address] [place] [address] PCP - General Physician Laborer Golf Course 11/05/22 documented as of this encounter
--- OUTSIDE RECORDS SUMMARY | 2024-01-01 09:13 | External Medical Summary | Summary of Care ---
Author Name Unknown Organization [facility] Address [address] [place] [address] Phone [phone] Care Team Providers Care Paramedic Supervisor Name Role Phone Kinjal Reynoso PA-C Primary Care Provider [phone] Encounter Details Date Type Department Care Team (Late st Contact Info) Description 11/12/2023 Telephone Nutrition & Weight Management, [facility] [address] [place] [address] Kaity Yap RDN [address] [place] [address] Allergies Active Allergy Reactions Criticality Noted Date [...] OPIOID OVERDOSE - SEEK IMMEDIATE MEDICAL ATTENTION. [email or web address] 2 Each 3 03/31/2023 Active Polyethylene Glycol [...] as directed, through J-tube via feeding pump. 60671 mL 11 10/05/2023 Active Peptamen AF Oral Liquid Administer 1,000 mL over 12 hours into J tube 4 times a day. 09306 mL 11 09/30/2023 09/24/2024 Active Enteral Feeding [...] encounter Miscellaneous Notes * Telephone Encounter - Cecy Martinez OSA - 11/12/2023 1:48 PM EDT Spoke to pt, nory'tejas 11/29/23 Syvlia Roberts. * Telephone Encounter - Jovanna Ward RN [...] pain, andvomiting. The pt was admitted to [facility] in [place], [place]. She had a CT scan inthe [...] now. The pt will be back in [place] on Wednesday11/15/2023. Her last feed was 11/10/2023 and the hospital was only able to get 50% in the bag into her. The pt has not been established with a GI provider in sometime. Faxed Records request for all documentation related to the pt's hospital stay to the [facility] in [place], [place]. documented in this encounter Plan of Treatment Upcoming Encounters Date Type Department Care Team (Late st Contact Info) Description 11/16/2023 8:00 AM EDT Nurse Only Hematology/Oncology Treatment, [facility] [place] [address] [facility], Chair2 Hem Onc [facility] [address] 11/29/2023 1:30 PM EDT Office Visit Gastro[facility], [facility] [address] [place] [phone] Vicki Roberts PA-C 310 [facility] [place] [address] 12/24/2023 11:00 AM EDT Office Visit Family [facility], [place] [facility] [phone] Kinjal Reynoso PA-C [facility] [address] Health Maintenance Due Date Last Done Comments [...] this encounter Medical Devices Implanted Type Area Country Printer Device Identifier Shelf Expiration Date Model / Serial / Lot Port Implant W/8f Poly Cath - [id number] Implanted:Qty : 1 on 05/18/2023 by Juan Jose Connell, DO at OR [facility] Right: Chest CR BARD : PERIPHERAL VASCULAR [id number] 11/18/2024 [id number] / / [id number] documented as of this encounter Advance Directives [...] Advance Directives occurred with: Patient Care Teams Paramedic Supervisor Relationship Specialty Start Date End Date Kinjal Reynoso PA-C [address] [place] [address] [address] PCP - General Physician Bankruptcy Assistant 11/05/22 documented as of this encounter
--- OUTSIDE RECORDS SUMMARY | 2024-01-01 09:13 | External Medical Summary | Summary of Care ---
Author Name Unknown Organization [facility] Address [address] [place] [address] Phone [phone] Care Team Providers Care Bricklayer Sewer Name Role Phone Kinjal Willis PA-C Primary Care Provider [phone] Reason for Visit * Reason Onset Date Comments Advice 10/25/2023 Encounter Details Date Type Department Care Team (Late st Contact Info) Description 10/25/2023 Telephone [facility] 21 [facility] [place] [phone] Kinjal Willis PA-C 21 [facility] [place] [address] Advice Allergies Active Allergy [...] as of this encounter (statuses as of 10/26/2023) Medications Medication Sig Dispensed Refills Start Date End Date Status Naloxone HCl 4 MG/0.1ML Nasal Liquid (Narcan Nasal)Indications:Ch ronic pelvic pain in female,MEDICATION USE AGREEMENT,Chronic abdominal pain ADMINISTER 1 SPRAY INTO 1 NOSTRIL FOR SUSPECTED OPIOID OVERDOSE - SEEK IMMEDIATE MEDICAL ATTENTION. [email or web address] 2 Each 3 03/31/2023 Active Polyethylene Glycol [...] as directed, through J-tube via feeding pump. 31560 mL 11 10/05/2023 Active Peptamen AF Oral Liquid Administer 1,000 mL over 12 hours into J tube 4 times a day. 89977 mL 11 09/30/2023 09/24/2024 Active Enteral Feeding [...] as of this encounter (statuses as of 10/26/2023) Active Problems Problem Noted Date Diagnosed Date [...] as of this encounter (statuses as of 10/26/2023) Resolved Problems Problem Noted Date Diagnosed Date [...] as of this encounter (statuses as of 10/26/2023) Immunizations Name Administration Dates Next Due DTaP [...] as of this encounter Miscellaneous Notes * Addendum Note - Kinjal Willis PA-C - 10/26/2023 4:17 PM EDTAddended by: KINJAL WILLIS on: 10/26/2023 04:17 PM Modules accepted: Orders * Telephone Encounter - Kinjal Willis PA-C - 10/26/2023 4:16 PM EDT Order signed. * Telephone Encounter - Roshni Bauer LPN - 10/26/2023 3:41 PM EDT Discussed with nurse at infusion center. Plan pended per your approval. * Addendum Note - Angela Levy LPN - 10/26/2023 3:39 PM EDTAddended by: ANGELA LEVY on: 10/26/2023 03:39 PM Modules accepted: Orders * Addendum Note - Roshni Bauer LPN - 10/26/2023 3:37 PM EDTAddended by: ROSHNI BAUER on: 10/26/2023 03:37 PM Modules accepted: Orders * Addendum Note - Kinjal Willis PA-C - 10/26/2023 2:23 PM EDTAddended by: KINJAL WILLIS on: 10/26/2023 02:23 PM Modules accepted: Orders * Telephone Encounter - Kinjal Willis PA-C - 10/26/2023 2:20 PM EDT I am not sure of the protocol for port flushing. I believe it is every 4 weeks and with normal saline. I do not know specific amount. And I believe that it is capped with heparin/NS mixture. Please verify with infusion center what specifically order needs to say. * Addendum Note - Roshni Bauer LPN - 10/26/2023 12:50 PM EDTAddended by: ROSHNI BAUER on: 10/26/2023 12:50 PM Modules accepted: Orders * Telephone Encounter - Roshni Bauer LPN - 10/26/2023 12:49 PM EDT Pt will need to have New Supportive Care Plan order placed. * Telephone Encounter - Kinjal Willis PA-C - 10/26/2023 12:11 PM EDT We talked about flushing her port. Pt needs set up for port flushes. Please pend the needed orders for this for me to sign. Pt is seeing GI nutrition for J-tube and any maintenance for J-tube is deferred to them. * Telephone Encounter - Yumiko Alvares CMA - 10/25/2023 3:53 PM EDT Received a msg via Teams from [facility] lab about pt inquiring on flushing her J- tube. Lab did not see any mention of this or orders in epic. For this to be done, I believe pt would have to go to infusioncenter at [facility]. Please advise if this was discussed or would be needed. Thank you documented in this encounter Plan of Treatment Upcoming Encounters Date Type Department Care Team (Late st Contact Info) Description 11/12/2023 8:00 AM EDT Telemedicine Nutrition & Weight Management, [facility] [address] [place] [address] Kaity Yap RDN [address] [place] [address] 12/24/2023 11:00 AM EDT Office Visit [facility] [employer] [address] [place] [phone] Kinjal Willis PA-C [address] [place] [address] [phone] Health Maintenance Due Date Last Done Comments [...] this encounter Medical Devices Implanted Type Area Counter Roller Device Identifier Shelf Expiration Date Model / Serial / Lot Port Implant W/8f Poly Cath - [id number] Implanted:Qty : 1 on 05/18/2023 by Juan Jose Connell, at OR [facility] Right: Chest CR BARD : PERIPHERAL VASCULAR [id number] 11/18/2024 [id number] / / [id number] documented as of this encounter Visit Diagnoses Diagnosis Port-A-Cath in place- Primary Other postprocedural status documented in this encounter Advance Directives Latest [...] patient have Health Care Power of Cloth Spreader? No Code Status History Code Status Date [...] Advance Directives occurred with: Patient Care Teams Bricklayer Sewer Relationship Specialty Start Date End Date Kinjal Willis PA-C [address] [place] [address] PCP - General Physician Janitor Caretaker 11/05/22 documented as of this encounter
--- OUTSIDE RECORDS SUMMARY | 2024-01-01 09:13 | External Medical Summary ---
Author Name Unknown Address Unknown Organization K1F:[facility]ATORY [facility] - [address] [facility] [place] [address] Laboratory Report Ordering Provider Test Date Status ANGELA VALENTINE 11/04/2023 20:54:22 Final Observation Date Value Abnormality Reference (Units ) Status BUN 11/04/2023 20:54:22 7 6-20 (mg/dL) Final Creatinine 11/04/2023 20:54:22 0.6 0.5-1.0 (mg/dL) Final Glomerular filtration rate/1.73 sq M.predicted [Volume Rate/Area] in Serum, Plasma or Blood by Creatinine-based formula (CKD-EPI) 11/04/2023 20:54:22 >90 >=60 (mL/min) Final eGFR is calculated based on the CKD-EPI 2020 equation Sodium 11/04/2023 20:54:22 138 135-146 (m mol/L) Final Potassium 11/04/2023 20:54:22 4.4 3.5-5.1 (m mol/L) Final Cl 11/04/2023 20:54:22 107 98-107 (mm ol/L) Final CO2 11/04/2023 20:54:22 18 Below low normal 22- 32 (mmol/L) Final Anion gap 11/04/2023 20:54:22 13 7-15 (mmol /L) Final Glucose 11/04/2023 20:54:22 95 70-120 (mg /dL) Final Albumin 11/04/2023 20:54:22 4.4 3.8-5.0 (g /dL) Final AST (Aspartate aminotransferase) 11/04/2023 20:54:22 32 10-35 (U/L) Fin al Result may be falsely elevat ed due to hemolysis. Alk Phos 11/04/2023 20:54:22 85 35-130 (U/ L) Final Bilirubin, Total 11/04/2023 20:54:22 0.3 <=1 .2 (mg/dL) Final Calcium 11/04/2023 20:54:22 9.6 8.4-10.2 ( mg/dL) Final Protein 11/04/2023 20:54:22 8.0 6.0-8.3 (g /dL) Final ALT (Alanine aminotransferase) 11/04/2023 20:54:22 12 10-35 (U/L) Final Performing Location LABORATORY [facility] - [facility] [place] [address]
--- OUTSIDE RECORDS SUMMARY | 2024-01-01 09:13 | External Medical Summary ---
Author Name Unknown Address Unknown Organization K1F:LABORATORY [facility] - [address] [place] [address] Laboratory Report Ordering Provider Test Date Status ANGELA VALENTINE 11/04/2023 20:54:22 Final Observation Date Value Abnormality Reference (Units ) Status WBC, Total 11/04/2023 20:54:22 5.59 4.00-10.80 (K/uL) Final RBC 11/04/2023 20:54:22 4.83 3.85-5.15 (M/uL) Final Hemoglobin 11/04/2023 20:54:22 15.3 12.0-15.3 (g/dL) Final HCT 11/04/2023 20:54:22 44.4 36.0-45.2 (%) Final MCV 11/04/2023 20:54:22 91.9 81.5-97.5 (fL) Final MCH 11/04/2023 20:54:22 31.7 27.0-34.0 (pg) Final MCHC 11/04/2023 20:54:22 34.5 32.0-36.0 (g/dL) Final RDW 11/04/2023 20:54:22 12.2 11.5-15.5 (%) Final Platelets 11/04/2023 20:54:22 234 140-400 (K/uL) Final MPV 11/04/2023 20:54:22 10.6 6.6-11.1 (fL) Final Nucleated erythrocytes/100 leukocytes [Ratio] in Blood by Automated count 11/04/2023 20:54:22 0 <=0 (/100 WBCs) Final Performing Location LABORATORY [facility] - [address] [facility] [address] [place] [address]
--- OUTSIDE RECORDS SUMMARY | 2024-01-01 09:13 | External Medical Summary ---
Author Name Unknown Address Unknown Organization K1F:LABORATORY [facility] - [address] [place] [address] Laboratory Report Ordering Provider Test Date Status ANGELA VALENTINE 11/04/2023 20:54:22 Final Observation Date Value Abnormality Reference (Units ) Status Magnesium 11/04/2023 20:54:22 2.3 1.5-2.6 (m g/dL) Final Performing Location LAB[facility]ATORY [facility] - [address] [place] [address]
--- OUTSIDE RECORDS SUMMARY | 2024-01-01 09:13 | External Medical Summary | Summary of Care ---
Author Name Unknown Organization [facility] Address [address] [place] [address] Phone [phone] Care Team Providers Care Nutrition Services Manager Name Role Phone Kinjal Reynoso PA-C Primary Care Provider [phone] Reason for Visit * Reason Onset Date Comments Scheduling 10/27/2023 Port Flush Encounter Details Date Type Department Care Team (Late st Contact Info) Description 10/27/2023 Telephone Hematology/Oncology, [facility] 400 [place] [address] Kinjal Reynoso PA-C 21 [facility] [place] [phone] Scheduling (Port Flush) Allergies Active Allergy Reactions [...] as of this encounter (statuses as of 11/05/2023) Medications Medication Sig Dispensed Refills Start Date End Date Status Naloxone HCl 4 MG/0.1ML Nasal Liquid (Narcan Nasal)Indications:Ch ronic pelvic pain in female,MEDICATION USE AGREEMENT,Chronic abdominal pain ADMINISTER 1 SPRAY INTO 1 NOSTRIL FOR SUSPECTED OPIOID OVERDOSE - SEEK IMMEDIATE MEDICAL ATTENTION. [email or web address] 2 Each 3 03/31/2023 Active Polyethylene Glycol [...] as directed, through J-tube via feeding pump. 23662 mL 11 10/05/2023 Active Peptamen AF Oral Liquid Administer 1,000 mL over 12 hours into J tube 4 times a day. 08851 mL 11 09/30/2023 09/24/2024 Active Enteral Feeding [...] as of this encounter (statuses as of 11/05/2023) Active Problems Problem Noted Date Diagnosed Date [...] as of this encounter (statuses as of 11/05/2023) Resolved Problems Problem Noted Date Diagnosed Date [...] as of this encounter (statuses as of 11/05/2023) Immunizations Name Administration Dates Next Due DTaP [...] encounter Miscellaneous Notes * Telephone Encounter - Anaya Fitzpatrick OSA - 11/05/2023 9:22 AM EDT Pt scheduled after she returns from her vacation on 11/15. Pt aware of date, time, & location. * Telephone Encounter - Abbey Huynh OSA - 10/27/2023 8:14 AM EDT LMOM for pt to call back to schedule Port flush q 6-8 weeks . Please transfer call to [facility] Infusion Schedulers, Anaya or Abbey Ext [phone] or [phone] * Telephone Encounter - Elsa Levy LPN - 10/27/2023 7:20 AM EDT Please schedule Port flush Q6-8 weeks Kinjal Reynoso documented in this encounter Plan of Treatment Upcoming Encounters Date Type Department Care Team (Late st Contact Info) Description 11/12/2023 8:00 AM EDT Telemedicine Nutrition & Weight Management, [facility] [address] [place] [address] Kaity Yap RDN [address] [place] [address] 11/16/2023 8:00 AM EDT Nurse Only Hematology/Oncology Treatment, [facility] 400 [facility] [place] [address] [facility], Chair1 Hem Onc [address] [facility] [address] 12/24/2023 11:00 AM EDT Office Visit [facility] [address] [place] [phone] Kinjal Reynoso PA-C 21 [place] [address] Health Maintenance Due Date Last Done Comments [...] this encounter Medical Devices Implanted Type Area Trouble Locater Device Identifier Shelf Expiration Date Model / Serial / Lot Port Implant W/8f Poly Cath - [id number] Implanted:Qty : 1 on 05/18/2023 by Juan Jose Connell, at OR [facility] Right: Chest CR BARD : PERIPHERAL VASCULAR [id number] 11/18/2024 [id number] / / [id number] documented as of this encounter Advance Directives [...] the patient have Health Care Power of Carpet Sewer? No Code Status History Code Status Date [...] Advance Directives occurred with: Patient Care Teams Nutrition Services Manager Relationship Specialty Start Date End Date Kinjal Reynoso PA-C [address] [place] [address] PCP - General Physician Registered Pharmacy Technician 11/05/22 documented as of this encounter
--- OUTSIDE RECORDS SUMMARY | 2024-01-01 09:13 | External Medical Summary ---
Author Name Unknown Address Unknown Organization K1F:LABORATORY [facility] - [address] [facility] [place] [address] Laboratory Report Ordering Provider Test Date Status ANGELA VALENTINE 11/04/2023 20:54:22 Final Observation Date Value Abnormality Reference (Units ) Status SYNC LEUKOCYTES IN BLOOD BY AUTOMATED COUNT 11/04/2023 20:54:22 5.59 4.00-10.80 (K/uL) Final Segs 11/04/2023 20:54:22 62.0 40.0-75.0 (%) Final Lymphs % 11/04/2023 20:54:22 25.9 18.0-42.0 (%) Final Monos 11/04/2023 20:54:22 7.9 1.0-11.0 (%) Final Eosinophils 11/04/2023 20:54:22 2.7 0.0-6.0 (%) Final Basos 11/04/2023 20:54:22 0.4 0.0-2.0 (%) Final Immature Granulocyte, Percent 11/04/2023 20:54:22 1.1 0.0-2.0 (%) Final Absolute Segs 11/04/2023 20:54:22 3.47 1.80-7.70 (K/uL) Final Lymphs, absolute 11/04/2023 20:54:22 1.45 1.00-4.80 (K/ul) Final Monos, Abs 11/04/2023 20:54:22 0.44 0.00-1.10 (K/uL) Final Eos, Abs 11/04/2023 20:54:22 0.15 0.00-0.70 (K/uL) Final Basos, Abs 11/04/2023 20:54:22 0.02 0.00-0.20 (K/uL) Final Immature Granulocytes, Number 11/04/2023 20:54:22 0.06 0.00-0.20 (K/uL) Final Performing Location LABORATORY [facility] - [address] [place] [address]
--- OUTSIDE RECORDS SUMMARY | 2024-01-01 09:13 | External Medical Summary | Summary of Care ---
Author Name Unknown Organization [facility] Address [address] [place] [address] Phone [phone] Care Team Providers Care Rn Support Services Name Role Phone Kinjal Reynoso PA-C Primary Care Provider [phone] Reason for Visit * Reason Onset Date Comments Advice 10/25/2023 Encounter Details Date Type Department Care Team (Late st Contact Info) Description 10/25/2023 Telephone [facility] 21 [facility] [place] [phone] Kinjal Reynoso PA-C 21 [facility] [place] [address] Advice Allergies Active [...] OPIOID OVERDOSE - SEEK IMMEDIATE MEDICAL ATTENTION. [email or web address] 2 Each 3 03/31/2023 Active Polyethylene Glycol [...] as directed, through J-tube via feeding pump. 95527 mL 11 10/05/2023 Active Peptamen AF Oral Liquid Administer 1,000 mL over 12 hours into J tube 4 times a day. [address]233 mL 11 09/30/2023 09/24/2024 Active Enteral Feeding [...] Miscellaneous Notes * Addendum Note - Kinjal Reynoso PA-C - 10/26/2023 4:17 PM EDTAddended by: KINJAL REYNOSO on: 10/26/2023 04:17 PM Modules accepted: Orders * Telephone Encounter - Kinjal Reynoso PA-C - 10/26/2023 4:16 PM EDT Order [...] accepted: Orders * Addendum Note - Kinjal Reynoso PA-C - 10/26/2023 2:23 PM EDTAddended by: KINJAL REYNOSO on: 10/26/2023 02:23 PM Modules accepted: Orders * Telephone Encounter - Kinjal Reynoso PA-C - 10/26/2023 2:20 PM EDT I [...] order placed. * Telephone Encounter - Kinjal Reynoso PA-C - 10/26/2023 12:11 PM EDT We [...] would have to go to infusioncenter at [facility]. Please advise if this was discussed or would be needed. Thank you documented in this encounter Plan of Treatment Upcoming Encounters Date Type Department Care Team (Late st Contact Info) Description 11/12/2023 8:00 AM EDT Telemedicine Nutrition & Weight Management, [facility] [address] [place] [address] Kaity Yap RDN [address] [place] [address] 12/24/2023 11:00 AM EDT Office Visit [facility] [address] [place] [phone] Kinjal Reynoso PA-C [address] [place] [address] [phone] Health Maintenance Due Date Last Done Comments GARDASIL-HPV IMMUNIZATION SE KMI (1 - 3-dose series) 2016 COVID-19 Vaccine [...] this encounter Medical Devices Implanted Type Area Balance Wheel Screw Hole Tapper Device Identifier Shelf Expiration Date Model / Serial / Lot Port Implant W/8f Poly Cath - [id number] Implanted:Qty : 1 on 05/18/2023 by Juan Jose Connell, at OR [facility] Right: Chest CR BARD : PERIPHERAL VASCULAR [id number] 11/18/2024 [id number] / / [id number] documented as of this encounter Visit Diagnoses [...] the patient have Health Care Power of Work Station Support Specialist? No Code Status History Code Status Date [...] Advance Directives occurred with: Patient Care Teams Rn Support Services Relationship Specialty Start Date End Date Kinjal Reynoso PA-C [address] [place] [address] PCP - General Physician Shearing Machine Tender 11/05/22 documented as of this encounter
--- OUTSIDE RECORDS SUMMARY | 2024-01-01 09:13 | External Medical Summary ---
Author Name Unknown Address Unknown Organization K1F:LABORATORY [facility] - [address] [place] [address] Laboratory Report Ordering Provider Test Date Status ANGELA VALENTINE 11/04/2023 20:54:22 Final Observation Date Value Abnormality Reference (Units ) Status Phosphate 11/04/2023 20:54:22 2.6 2.5-4.8 (m g/dL) Final Performing Location LABORATORY [facility] - [address] [place] [address]
--- OUTSIDE RECORDS SUMMARY | 2024-01-01 09:13 | External Medical Summary ---
Author Name Unknown Address Unknown Organization K1F:LABORATORY [facility] - [address] [place] [address] Laboratory Report Ordering Provider Test Date Status ANGELA VALENTINE 11/04/2023 20:54:22 Final Observation Date Value Abnormality Reference (Units ) Status Lipase 11/04/2023 20:54:22 15 13-60 (U/L ) Final Performing Location LABORATORY [facility] - [address] [place] [address]
--- OUTSIDE RECORDS SUMMARY | 2024-01-01 09:13 | External Medical Summary | Summary of Care ---
Author Name Unknown Organization [facility] Address [address] [place] [address] Phone [phone] Care Team Providers Care Playground Equipment Erector Name Role Phone Kinjal Reynoso PA-C Primary Care Provider [phone] Reason for Visit * Reason Comments Medication Refill Encounter Details Date Type Department Care Team (Late st Contact Info) Description 11/10/2023 Refill [facility] [place] [address] Kinjal Reynoso PA-C [address] [place] [address] Gastroparesis; Chronic pelvic pain in female; [...] OPIOID OVERDOSE - SEEK IMMEDIATE MEDICAL ATTENTION. [email or web address] 2 Each 3 03/31/2023 Active Polyethylene Glycol [...] as directed, through J-tube via feeding pump. 89976 mL 11 10/05/2023 Active Peptamen AF Oral Liquid Administer 1,000 mL over 12 hours into J tube 4 times a day. 84695 mL 11 09/30/2023 Active Enteral Feeding Piston [...] November 18, 2023. 108 Tablet 11/18/2023 Active oxyCODONE HCl 5 MG Oral Tablet (Oxy IR)Indications:Fransisco roparesis,Chronic pelvic pain in female,Malfunction of jejunostomy tube (HCC) Take 1 Tablet by mouth every 6 hours as needed for severe pian. (No more than 4 doses in 24 hours.). Must last 28 days. 108 Tablet 10/21/2023 Discontinue d(Refill) documented as of this encounter [...] Encounter - Luis M Menard MD - 11/12/2023 10:38 AM EDTSigned Prescriptions: Disp Refills oxyCODONE HCl 5 MG Oral Tablet (Oxy IR) 108 Ta*0 Sig: Take 1 Tablet by mouth every 6 hours as needed for Pain, Severe (No more than 4 doses in 24 hours.). Do not start before November 18, 2023. Authorizing Provider: LUIS M MENARD * Telephone Encounter - Carlos Uriostegui, [facility] located [facility] - 11/11/2023 10:54 AM EDTPending Prescriptions: Disp Refills oxyCODONE HCl 5 MG Oral Tablet (Oxy IR) 108 Ta*0 Sig: Take 1 Tablet by mouth every 6 hours as needed for severe pian. (No more than 4 doses in 24 hours.). Must last 28 days. * Telephone Encounter - Carlos Uriostegui, [facility] - 11/11/2023 10:52 AM EDT I have reviewed the patients controlled substance dispensing history in the Prescription Drug Monitoring Program in compliance with the [facility] regulations before prescribing a controlled substance. PDMP checked on 11/11/2023. Pending Prescriptions: Disp Refills oxyCODONE HCl 5 MG Oral Tablet (Oxy IR) 108 Ta*0 Sig: Take 1 Tablet by mouth every 6 hours as needed for severe pian. (No more than 4 doses in 24 hours.). Must last 28 days. Last Visit: 10/25/2023 (in office), 09/10/2022 (telemedicine) Next Visit: 12/24/2023 Date medication was last filled: 10/21/23 Date medication is due for refill: 11/16/23 Pharmacy: [facility] Is this request for a controlled [...] upon request. Please approve if appropriate. Thank You, Carlos Pantoja [facility] Clinical Pharmacist Centralized Clinical Pharmacy Services (CCPS) (formerly Telepharmacy) 11/11/2023, 10:52 AM Electronically signed by Carlos Uriostegui [facility] at 11/11/2023 10:54 AM EDT documented in this encounter Plan of Treatment Upcoming Encounters Date Type Department Care Team (Late st Contact Info) Description 11/16/2023 8:00 AM EDT Nurse Only Hematology/Oncology Treatment, [address] [place] [address] [facility], Chair2 Hem Onc [address] [place] [address] [place] [address] 12/24/2023 11:00 AM EDT Office Visit [facility] [address] [place] [phone] Kinjal Reynoso PA-C [facility] [address] Health Maintenance Due Date Last Done Comments [...] this encounter Medical Devices Implanted Type Area Attic Blower Device Identifier Shelf Expiration Date Model / Serial / Lot Port Implant W/8f Poly Cath - [id number] Implanted:Qty : 1 on 05/18/2023 by Juan Jose Connell, DO at OR [facility] Right: Chest CR BARD : PERIPHERAL VASCULAR [id number] 11/18/2024 [id number] / / [id number] documented as of this encounter Visit Diagnoses [...] Advance Directives occurred with: Patient Care Teams Playground Equipment Erector Relationship Specialty Start Date End Date Kinjal Reynoso PA-C [address] [address] PCP - General Physician Cpas 11/05/22 documented as of this encounter
--- OUTSIDE RECORDS SUMMARY | 2024-01-01 09:13 | External Medical Summary ---
Author Name Unknown Address Unknown Organization K1F:[facility] - [address] [address] Laboratory Report Ordering Provider Test Date Status ANGELA VALENTINE 11/04/2023 20:54:22 Final Observation Date Value Abnormality Reference (Units ) Status Lactic Acid 11/04/2023 20:54:22 1.1 0.4-2.0 (mmol/L) Final Performing Location [facility] - [address] [address]
--- OUTSIDE RECORDS SUMMARY | 2024-01-01 09:13 | External Medical Summary | Summary of Care ---
Author Name Unknown Organization [facility] Address [address] [place] [address] Phone [phone] Care Team Providers Care Band Bias Machine Operator Name Role Phone Kinjal Reyonso PA-C Primary Care Provider [phone] Encounter Details Date Type Department Care Team (Late st Contact Info) Description 11/12/2023 Telephone Nutrition & Weight Management, [facility] [address] [place] [address] Kaity Yap RDN [address] [place] [address] Allergies Active Allergy Reactions Criticality Noted Date [...] OPIOID OVERDOSE - SEEK IMMEDIATE MEDICAL ATTENTION. [email or web address] 2 Each 3 03/31/2023 Active Polyethylene Glycol [...] as directed, through J-tube via feeding pump. 49677 mL 11 10/05/2023 Active Peptamen AF Oral Liquid Administer 1,000 mL over 12 hours into J tube 4 times a day. 66881 mL 11 09/30/2023 09/24/2024 Active Enteral Feeding [...] pain, andvomiting. The pt was admitted to [facility] in [place], [place]. She had a CT scan inthe [...] now. The pt will be back in [place] on Wednesday11/15/2023. Her last feed was 11/10/2023 and the hospital was only able to get 50% in the bag into her. The pt has not been established with a GI provider in sometime. Faxed Records request for all documentation related to the pt's hospital stay to the [facility] in [place], [place]. documented in this encounter Plan of Treatment Upcoming Encounters Date Type Department Care Team (Late st Contact Info) Description 11/16/2023 8:00 AM EDT Nurse Only Hematology/Oncology Treatment, [address] [place] [address] [facility], Chair2 Hem Onc [address] [place] [address] 12/24/2023 11:00 AM EDT Office Visit [facility] [address] [place] [address] [phone] Kinjal Reynoso PA-C [address] [place] [address] Health Maintenance Due Date Last Done Comments [...] this encounter Medical Devices Implanted Type Area Military Source Operations Officer Device Identifier Shelf Expiration Date Model / Serial / Lot Port Implant W/8f Poly Cath - [id number] Implanted:Qty : 1 on 05/18/2023 by Juan Jose Connell DO at OR [facility] Right: Chest CR BARD : PERIPHERAL VASCULAR [id number] 11/18/2024 [id number] / / [id number] documented as of this encounter Advance Directives [...] Advance Directives occurred with: Patient Care Teams Band Bias Machine Operator Relationship Specialty Start Date End Date Kinjal Reynoso PA-C [address] [place] [address] [address] PCP - General Physician Counseling Director 11/05/22 documented as of this encounter
--- OUTSIDE RECORDS SUMMARY | 2024-01-01 09:13 | External Medical Summary | Summary of Care ---
Author Name Unknown Organization [facility] Address [address] [place] [address] Phone [phone] Care Team Providers Care Stone Setter Apprentice Name Role Phone Kinjal Reynoso PA-C Primary Care Provider [phone] Reason for Visit * Reason Comments Abdominal Pain * Auth/Cert Specialty Diagnoses / Procedures Referred By Contdulce t Referred To Contact [facility] [address] [place] [address] Phone: [phone] Emergency Medicine [facility] [address] [place] [address] Referral ID Status Reason Start Date Expiration Date Visits Re quested Visits Authorized [id number] Encounter Details Date Type Department Care Team ([facility] Contact Info) Description 11/04/2023 6:46 PM EDT - 11/04/2023 10:21 PM EDT Emergency [facility] Emergency Department ([facility]) [address] [place] [address] Zachery Morales, DO [address] [place] [address] Generalized abdominal pain (Primary Dx); Tachycardia; Nausea and vomiting, unspecified vomiting type Discharge Disposition: Home - Self Care Allergies [...] OPIOID OVERDOSE - SEEK IMMEDIATE MEDICAL ATTENTION. [email or web address] 2 Each 3 03/31/2023 Active Polyethylene Glycol [...] as directed, through J-tube via feeding pump. 21985 mL 11 10/05/2023 Active Peptamen AF Oral Liquid Administer 1,000 mL over 12 hours into J tube 4 times a day. 45069 mL 09/30/2023 09/24/2024 Active Enteral Feeding Piston Syringe [...] Sign Reading Time Taken Comments Blood Pressure 113/76 11/04/2023 10:00 PM EDT Pulse 91 11/04/2023 10:00 PM EDT Temperature 36.7 C (98.1 F) 11/04/2023 6:44 PM ED T Respiratory Rate 18 11/04/2023 10:00 PM EDT Oxygen Saturation 100% 11/04/2023 6:44 PM EDT Inhaled Oxygen Concentration - - Weight 75.8 kg (167 lb) 11/04/2023 6:44 PM EDT Height 157.5 cm (5' 2") 11/04/2023 6:44 PM EDT Body Mass Index 30.54 11/04/2023 6:44 PM EDT documented in this encounter Functional [...] this encounter Discharge Instructions * Discharge Instructions* Toyin Hunter PA-C - 11/04/2023 10:14 PM EDT Rest and remain well hydrated. Consume a bland diet until your symptoms have resolved. Please review the discharge instructions. Continue all at-home medications, no changes have been made. Follow up with your PCP in 2-3 days. Return to the Emergency Deparment if symptoms return, persist, or worsen. documented in this encounter ED Notes * Mckenna Arriola RN - 11/04/2023 6:46 PM EDT Pt has generalized abd pain, had a j tube placed in September. C/o pain and nausea documented in this encounter Miscellaneous Notes * ED Public Health Veterinarian Note - Michelle Hills RN - 11/04/2023 10:20 PM EDT Discharge instructions reviewed with the patient at bedside. Patient instructed to follow up with their PCP and return to the ED should their symptoms worsen. Patient verbalized understanding and denies any additional quesitons at this time. Patient ambulated form the ED with a steady gait. * Pt Handout (on AVS) - Toyin Hunter PA-C - 11/04/2023 10:14 PM EDT [id number] Vomiting (Adult) Vomiting is a common symptom that may be due to different causes. These include gastroenteritis (stomach flu), food poisoning, and gastritis. Other more serious causes of vomiting may be hard to diagnose early in the illness. That's why it's important to watch for the warning signs listed below. The main danger from repeated vomiting is dehydration. This is because of the loss of water and minerals from the body. When this occurs, your body fluids must be replaced. Home care If symptoms are severe, rest at home for the next 24 hours. Because your symptoms may be from an infection, wash your hands often and well. Use soap and clean, running water or alcohol-based concessions manager to keep from spreading the infection to others. Wash your hands for at least 20 seconds. Scrub all surfaces of your hands, including between your fingers and under your fingernails each time you wash. Humming the Happy Birthday song twice whileyou wash is an easy way to make sure you've washed for 20 seconds. Wash your hands after using the toilet, before and after preparing food, before eating food, after changing a diaper, cleaning a wound, caring for a sick person, and blowing your nose, coughing, or sneezing. You should also wash your hands after caring for someone who is sick, touching pet food,or treats, and touching an animal, or animal waste. You may use acetaminophen or NSAID medicines such as ibuprofen or naproxen to control fever, unless another medicine was prescribed. Talk with your provider before using these medicines if you have chronic liver or kidney disease or ever had a stomach ulcer or digestive bleeding. Never give aspirin to anyone younger than 18 who is ill with a fever. It may cause severe liver damage. Don't use NS AID medicines if you are already taking one for another condition such as arthritis or take aspirinfor heart disease or after a stroke. Don't use tobacco or drink alcohol. These may make your symptoms worse. If you have trouble stopping either substance, ask your provider for treatment resources. If medicines for vomiting were prescribed, take as directed. Tell your provider if they don't work within the expected time period. Once vomiting stops, then follow these guidelines: During the first 12 to 24 hours, follow the diet below: Fruit juices. Apple, grape juice, clear fruit drinks, and electrolyte replacement drinks. Beverages. Water, soft drinks without caffeine; mineral water (plain or flavored), and decaffeinated tea and coffee. Soups. Clear broth and bouillon. Desserts. Plain gelatin, ice pops, and fruit juice bars. As you feel better, you may add 6 to 8 ounces of yogurt per day. During the next 24 hours you may add the following to the above: Hot cereal, plain toast, bread, rolls, and crackers Plain noodles, rice, mashed potatoes, and chicken noodle or rice soup Unsweetened canned fruit such as applesauce, bananas. Don't have pineapple or citrus. Limit caffeine and chocolate. No spices or seasonings except salt. During the next 24 hours: Gradually go back to your normal diet, as you feel better and your symptoms lessen. Follow-up care Follow up with your healthcare provider as advised. When to seek medical advice Call your healthcare provider right away if any of these occur: Constant right-sided lower belly pain or increasing general belly pain Continued vomiting (unable to keep liquids down) for 24 hours Vomiting blood or what looks like coffee grounds Swollen belly Frequent diarrhea (more than 5 times a day), or blood (red or black color) or mucus in diarrhea Peeing less than usual or extreme thirst Weakness, dizziness, or fainting Unusually drowsy or confused Fever of 100.4F (38C) oral or higher, or as directed by your provider Yellow color of the eyes or skin Other symptoms get worse or you have new symptoms Last Reviewed Date: 04/21/202119997132-4813 The [employer]. All rights reserved. This information is not intended as a substitute for professional medical care. Always follow your healthcare professional's instructions. * Pt Handout (on AVS) - Toyin Hunter PA-C - 11/04/2023 10:14 PM EDT [id number] Unknown Causes of Abdominal Pain(Adult) The exact [...] bleeding or missed period Last Reviewed Date: 04/21/202119992477-3667 The [employer]. All rights reserved. This information is not intended as a substitute for professional medical care. Always follow your healthcare professional's instructions. * ED Public Health Veterinarian Note - Avril Lopez RN - 11/04/2023 8:40 PM EDT Attempted to access patients Port located on the R side of her chest. Port is superficial. Sterile technique was used. Port did not have blood return and was able to be flushed with difficulty and patient reported pain with flushing. Patient requested needle be removed and peripheral IV access obtained instead. Patient states "its been a while" since her port was last accessed. Provider is aware documented in this encounter Plan of Treatment Upcoming Encounters Date Type Department Care Team (Late st Contact Info) Description 11/12/2023 8:00 AM EDT Telemedicine Nutrition & Weight Management, [facility] [address] [address] Kaity Yap RDN [address] [place] [address] 11/16/2023 8:00 AM EDT Nurse Only Hematology/Oncology Treatment, [facility] [address] [facility] [place] [place] [address] [facility], Chair1 Hem Onc [facility] [address] 12/24/2023 11:00 AM EDT Office [facility] [place] [facility] [phone] Kinjal Reynoso PA-C [facility] [address] Scheduled Orders Name Type Priority Associated Diagnoses Orde r Schedule URINALYSIS, REFLEX TO MICROSCOPIC Lab STAT Perform Now for 1 Occurrences starting 11/04/2023 until 11/04/2023 Health Maintenance Due Date Last Done Comments [...] this encounter Medical Devices Implanted Type Area Chef Concierge Device Identifier Shelf Expiration Date Model / Serial / Lot Port Implant W/8f Poly Cath - [id number] Implanted:Qty : 1 on 05/18/2023 by Juan Jose Connell, at OR [facility] Right: Chest CR BARD : PERIPHERAL VASCULAR [id number] 11/18/2024 [id number] / / [id number] documented as of this encounter Procedures Procedure Name Priority Date/Time Associated Diagnosis Comments DIFFERENTIAL, AUTOMATED STAT 11/04/2023 8:54 PM EDT COMPREHENSIVE METABOLIC PANEL STAT 11/04/2023 8:54 PM EDT CBC STAT 11/04/2023 8:54 PM EDT PHOSPHORUS STAT 11/04/2023 8:54 PM EDT LIPASE STAT 11/04/2023 8:54 PM EDT LACTATE STAT 11/04/2023 8:54 PM EDT CBC STAT 11/04/2023 8:54 PM EDT MAGNESIUM STAT 11/04/2023 8:54 PM EDT XR CHEST 1 VIEW STAT 11/04/2023 8:11 PM EDT documented in this encounter Results * DIFFERENTIAL, AUTOMATED (11/04/2023 8:54 PM EDT) WBC 5.59 4.00 - 10.80 K/uL 11/04/2023 9:03 PM EDT LABORATORY [facility] Neutrophils % 62.0 40.0 - 75.0 % 11/04/2023 9:03 PM EDT LAB[facility]ORY [facility] Lymphocytes % 25.9 18.0 - 42.0 % 11/04/2023 9:03 PM EDT LABORATORY GL Monocytes % 7.9 1.0 - 11.0 % 11/04/2023 9:03 PM EDT LABORATORY GL Eosinophils % 2.7 0.0 - 6.0 % 11/04/2023 9:03 PM EDT [facility] Basophils % 0.4 0.0 - 2.0 % 11/04/2023 9:03 PM EDT LAB[facility] Immature Granulocytes % 1.1 0.0 - 2.0 % 11/04/2023 9:03 PM EDT LAB[facility]ORY [facility] Absolute Neutrophils 3.47 1.80 - 7.70 K/uL 11/04/2023 9:03 PM EDT LAB[facility]ATORY [facility] Absolute Lymphocytes 1.45 1.00 - 4.80 K/ul 11/04/2023 9:03 PM EDT LABORATORY [facility] Absolute Monocytes 0.44 0.00 - 1.10 K/uL 11/04/2023 9:03 PM EDT LABORATORY [facility] Absolute Eosinophils 0.15 0.00 - 0.70 K/uL 11/04/2023 9:03 PM EDT LAB[facility]ATORY [facility] Absolute Basophils 0.02 0.00 - 0.20 K/uL 11/04/2023 9:03 PM EDT LABORATORY [facility] Absolute Immature Granulocytes 0.06 0.00 - 0.20 K/uL 11/04/2023 9:03 PM EDT LAB[facility]ORY [facility] Blood Venous blood specimen / Unknown Venipuncture / Unknown 11/04/2023 8:54 PM EDT 11/04/2023 9:00 PM EDT Toyin Hunter PA-C LAB BLOOD ORDER [facility] [address] [place] [address] * CBC (11/04/2023 8:54 PM EDT) Pathologist [facility] WBC 5.59 4.00 - 10.80 K/uL 11/04/2023 9:03 PM EDT LAB[facility]ORY [facility] RBC 4.83 3.85 - 5.15 M/uL 11/04/2023 9:03 PM EDT LAB[facility]ORY [facility] HGB 15.3 12.0 - 15.3 g/dL 11/04/2023 9:03 PM EDT LAB[facility] HCT 44.4 36.0 - 45.2 % 11/04/2023 9:03 PM EDT LAB[facility]ORY [facility] MCV 91.9 81.5 - 97.5 fL 11/04/2023 9:03 PM EDT LAB[facility]ORY [facility] MCH 31.7 27.0 - 34.0 pg 11/04/2023 9:03 PM EDT LAB[facility]ORY [facility] MCHC 34.5 32.0 - 36.0 g/dL 11/04/2023 9:03 PM EDT LAB[facility] RDW 12.2 11.5 - 15.5 % 11/04/2023 9:03 PM EDT LAB[facility] PLT 234 140 - 400 K/uL 11/04/2023 9:03 PM EDT LAB[facility]ORY [facility] MPV 10.6 6.6 - 11.1 fL 11/04/2023 9:03 PM EDT LAB[facility] nRBCs 0 <=0 /100 WBCs 11/04/2023 9:03 PM EDT [facility] Blood Venous blood specimen / Unknown Venipuncture / Unknown 11/04/2023 8:54 PM EDT 11/04/2023 9:00 PM EDT Toyin Hunter PA-C LAB BLOOD ORDER [facility] [address] [address] * PHOSPHORUS (11/04/2023 8:54 PM EDT) [facility] Signature Phosphorus 2.6 2.5 - 4.8 mg/dL 11/04/2023 9:22 PM EDT LAB[facility]ORY [facility] Blood Venous blood specimen / Unknown Venipuncture / Unknown 11/04/2023 8:54 PM EDT 11/04/2023 9:00 PM EDT Toyin Hunter PA-C LAB BLOOD ORDER [facility] [address] [address] * MAGNESIUM (11/04/2023 8:54 PM EDT) Magnesium 2.3 1.5 - 2.6 mg/dL 11/04/2023 9:22 PM EDT LAB[facility]ORY [facility] Blood Venous blood specimen / Unknown Venipuncture / Unknown 11/04/2023 8:54 PM EDT 11/04/2023 9:00 PM EDT Toyin Hunter PA-C LAB BLOOD ORDER [facility] Performing Organization Address [facility] Co de Phone Number LABORATORY [address] [address] * LIPASE (11/04/2023 8:54 PM EDT) Lipase 15 13 - 60 U/L 11/04/2023 9:22 PM EDT LAB[facility]ORY [facility] Blood Venous blood specimen / Unknown Venipuncture / Unknown 11/04/2023 8:54 PM EDT 11/04/2023 9:00 PM EDT Toyin Hunter PA-C LAB BLOOD ORDER [facility] Performing Organization Address [facility] Co de Phone Number LABORATORY [address] [address] * LACTATE (11/04/2023 8:54 PM EDT) Lactate 1.1 0.4 - 2.0 mmol/L 11/04/2023 9:20 PM EDT LAB[facility]ORY [facility] Blood Venous blood specimen / Unknown Venipuncture / Unknown 11/04/2023 8:54 PM EDT 11/04/2023 9:00 PM EDT Toyin Hunter PA-C LAB BLOOD ORDER [facility] [address], [place] [id number] * (ABNORMAL) COMPREHENSIVE METABOLIC PANEL (11/04/2023 8:54 PM EDT) BUN 7 6 - 20 mg/dL 11/04/2023 9:22 PM EDT LABORATORY GL Creatinine 0.6 0.5 - 1.0 mg/dL 11/04/2023 9:22 PM EDT [facility] Estimated Glomerular Filtration Rate >90 >=60 mL/min 11/04/2023 9:22 PM EDT [facility] Comment:eGFR is calculated b ased on the CKD-EPI 2020 equation Sodium 138 135 - 146 mmol/L 11/04/2023 9:22 PM EDT LAB[facility] Potassium 4.4 3.5 - 5.1 mmol/L 11/04/2023 9:22 PM EDT [facility] Chloride 107 98 - 107 mmol/L 11/04/2023 9:22 PM EDT [facility] CO2 18(L) 22 - 32 mmol/L 11/04/2023 9:22 PM EDT [facility] Anion Gap 13 7 - 15 mmol/L 11/04/2023 9:22 PM EDT [facility] Glucose 95 70 - 120 mg/dL 11/04/2023 9:22 PM EDT [facility] Albumin 4.4 3.8 - 5.0 g/dL 11/04/2023 9:22 PM EDT LAB[facility] AST 32 10 - 35 U/L 11/04/2023 9:22 PM EDT LAB[facility] Comment:Result may be falsel y elevated due to hemolysis. Alkaline Phosphatase 85 35 - 130 U/L 11/04/2023 9:22 PM EDT LAB[facility] Bilirubin, Total 0.3 <=1.2 mg/dL 11/04/2023 9:22 PM EDT LAB[facility] Calcium 9.6 8.4 - 10.2 mg/dL 11/04/2023 9:22 PM EDT LAB[facility] Protein 8.0 6.0 - 8.3 g/dL 11/04/2023 9:22 PM EDT LAB[facility] ALT 12 10 - 35 U/L 11/04/2023 9:22 PM EDT LAB[facility]ORY [facility] Blood Venous blood specimen / Unknown Venipuncture / Unknown 11/04/2023 8:54 PM EDT 11/04/2023 9:00 PM EDT Toyin Hunter PA-C LAB BLOOD ORDER [facility] [place] [id number] * XR CHEST 1 VIEW (11/04/2023 8:11 PM EDT) Anatomical Region Laterality Modality Chest Digital Radiogra phy 11/04/2023 8:07 PM EDT Impressions 11/04/2023 9:00 PM EDT IMPRESSION: No acute chest findings. THIS DOCUMENT HAS BEEN ELECTRONICALLY SIGNED BY DELVIN QUIÑONEZ MD Narrative 11/04/2023 9:00 PM EDT PROCEDURE INFORMATION: Exam: XR Chest Exam date and time: 11/04/2023 8:07 PM Age: 23 years old Clinical indication: Other: Tachycardic; Additional info: Tachycardia TECHNIQUE: Imaging protocol: Radiologic exam of the chest. Views: 1 view. COMPARISON: DX XR ABDOMEN OBSTRUCT SERIES W CHEST 1 VIEW 06/27/2023 2:07 PM FINDINGS: Tubes, catheters and devices: Right-sided chest port is present with the catheter terminating near the SVC right atrial junction. Lungs: Unremarkable. No consolidation. Pleural spaces: Unremarkable. No pleural effusion. No pneumothorax. Heart/Mediastinum: Unremarkable. No cardiomegaly. Bones/joints: Unremarkable. Procedure Note Delvin Quiñonez MD - 11/04/2023 PROCEDURE INFORMATION: Exam: XR Chest Exam date and time: 11/04/2023 8:07 PM Age: 23 years old Clinical indication: Other: Tachycardic; Additional info: Tachycardia TECHNIQUE: Imaging protocol: Radiologic exam of the chest. Views: 1 view. COMPARISON: DX XR ABDOMEN OBSTRUCT SERIES W CHEST 1 VIEW 06/27/2023 2:07 PM FINDINGS: Tubes, catheters and devices: Right-sided chest port is present with the catheter terminating near the SVC right atrial junction. Lungs: Unremarkable. No consolidation. Pleural spaces: Unremarkable. No pleural effusion. No pneumothorax. Heart/Mediastinum: Unremarkable. No cardiomegaly. Bones/joints: Unremarkable. IMPRESSION IMPRESSION: No acute chest findings. THIS DOCUMENT HAS BEEN ELECTRONICALLY SIGNED BY DELVIN QUIÑONEZ MD Toyin Hunter PA-C RADIOLOGY ([facility]) documented in this encounter Visit Diagnoses Diagnosis Generalized abdominal pain- Primary Abdominal pain, generalized Tachycardia Tachycardia, unspecified Nausea and vomiting, unspecified vomiting type documented in this encounter Administered Medications Inactive Administered Medications - up to 3 most recent administrations Medication Order MAR Action Action Date Dose Rate Site NSS 0.9% 1,000 mL bolus infusion IV Piggyback, at 1,000 mL/hr Administer over 60 Minutes, Administer entire volume within 60 minutes or less., ONCE, 1 dose, On [place] 11/04/23 at 2030 New Bag 11/04/2023 8:56 PM EDT 1,000 mL 1000 mL/hr oxyCODONE (Roxicodone) oral syrup 5 mg 5 mg, J Tube, ONCE, On [place] 11/04/23 at 214, For 1 dose Given 11/04/2023 9:15 PM EDT 5 mg promethazine (Phenergan) tab 25 mg 25 mg, Oral, ONCE, On [place] 11/04/23 at 2030, For 1 dose Given 11/04/2023 8:43 PM EDT 25 mg documented in this encounter Active and Recently Administered Medications Times are shown in EDT. Scheduled Medication Order 11/02/2023 11/03/2023 11/04/2023 NSS 0.9% 1,000 mL bolus infusion (COMPLETED) IV Piggyback, at 1,000 mL/hr Administer over 60 Minutes, Administer entire volume within 60 minutes or less., ONCE, 1 dose, On [place] 11/04/23 at 2030 2055 (New Bag - Prov ider: Avril Lopez RN)2154 (Stopped - Provider: Michelle Hills RN) oxyCODONE (Roxicodone) oral syrup 5 mg (COMPLETED) 5 mg, J Tube, ONCE, On [place] 11/04/23 at 2145, For 1 dose 2114 (Given - Provid er: Avril Lopez RN) promethazine (Phenergan) tab 25 mg (COMPLETED) 25 mg, Oral, ONCE, On [place] 11/04/23 at 2030, For 1 dose 2042 (Given - Provid er: Avril Lopez RN) [...] the patient have Health Care Power of Airplane Mechanic Apprentice? No Code Status History Code Status Date [...] Advance Directives occurred with: Patient Care Teams Stone Setter Apprentice Relationship Specialty Start Date End Date Kinjal Reynoso PA-C [address] [facility] [place] [phone] PCP - General Physician Attending Radiologist 11/05/22 documented as of this encounter
--- OUTSIDE RECORDS SUMMARY | 2024-01-01 09:14 | External Medical Summary | Summary of Care ---
Author Name Unknown Organization [facility] Address [address] [place] [address] Phone [phone] Care Team Providers Care Commissary Clerk Name Role Phone Kinjal Reynoso PA-C Primary Care Provider [phone] Reason for Visit * Reason Onset Date Comments Advice 10/25/2023 Encounter Details Date Type Department Care Team (Late st Contact Info) Description 10/25/2023 Telephone [facility] [address] [facility] [place] [phone] Kinjal Reynoso PA-C [address] [facility] [place] [address] Advice Allergies Active Allergy [...] OPIOID OVERDOSE - SEEK IMMEDIATE MEDICAL ATTENTION. [email or web address] Each 3 03/31/2023 Active Polyethylene Glycol [...] as directed, through J-tube via feeding pump. 45016 mL 11 10/05/2023 Active Peptamen AF Oral Liquid Administer 1,000 mL over 12 hours into J tube 4 times a day. 96034 mL 11 09/30/2023 09/24/2024 Active Enteral Feeding [...] encounter Miscellaneous Notes * Addendum Note - Roshni Reid LPN - 10/26/2023 12:50 PM EDTAddended by: ROSHNI REID on: 10/26/2023 12:50 PM Modules accepted: Orders * Telephone Encounter - Roshni Reid LPN - 10/26/2023 12:49 PM EDT Pt [...] would have to go to infusioncenter at [facility]. Please advise if this was discussed or would be needed. Thank you documented in this encounter Plan of Treatment Upcoming Encounters Date Type Department Care Team (Late st Contact Info) Description 11/12/2023 8:00 AM EDT Telemedicine Nutrition & Weight Management, [facility] [address] [place] [address] Kaity Yap RDN [address] [place] [address] 12/24/2023 11:00 AM EDT Office Visit [facility], [place] [address] [place] [phone] Kinjal Reynoso PA-C [address] [place] [address] Health Maintenance Due Date Last Done Comments [...] this encounter Medical Devices Implanted Type Area Skip Miner Device Identifier Shelf Expiration Date Model / Serial / Lot Port Implant W/8f Poly Cath - [id number] Implanted:Qty : 1 on 05/18/2023 by Juan Jose Connell, at OR [facility] Right: Chest CR BARD : PERIPHERAL VASCULAR [id number] 11/18/2024 [id number] / / [id number] documented as of this encounter Visit Diagnoses [...] the patient have Health Care Power of Inspector Packer? No Code Status History Code Status Date [...] Advance Directives occurred with: Patient Care Teams Commissary Clerk Relationship Specialty Start Date End Date Kinjal Reynoso PA-C [address] [place] [phone] PCP - General Physician Record Filing Clerk 11/05/22 documented as of this encounter
--- OUTSIDE RECORDS SUMMARY | 2024-01-01 09:14 | External Medical Summary | Summary of Care ---
Author Name Unknown Organization [facility] Address [address] [place] [address] Phone [phone] Care Team Providers Care Patch Washer Name Role Phone Kinjal Willis PA-C Primary Care Provider [phone] Reason for Visit * Reason Onset Date Comments Advice 10/25/2023 Encounter Details Date Type Department Care Team (Late st Contact Info) Description 10/25/2023 Telephone [facility] [place] [address] Kinjal Willis PA-C [facility] [place] [address] Advice Allergies Active [...] OPIOID OVERDOSE - SEEK IMMEDIATE MEDICAL ATTENTION. HTTPS://[email or web address]?/= [email or web address] 2 Each 3 03/31/2023 Active Polyethylene Glycol [...] as directed, through J-tube via feeding pump. 50448 mL 11 10/05/2023 Active Peptamen AF Oral Liquid Administer 1,000 mL over 12 hours into J tube 4 times a day. 54847 mL 11 09/30/2023 09/24/2024 Active Enteral Feeding [...] encounter Miscellaneous Notes * Telephone Encounter - Roshni Bauer LPN - 10/26/2023 3:41 PM EDT Discussed with nurse at [facility]. Plan pended per your approval. * [...] EDT Received a msg via Teams from [facility] lab about pt inquiring on flushing her J- tube. Lab did not see any mention of this or orders in epic. For this to be done, I believe pt would have to go to infusioncenter at [facility]. Please advise if this was discussed or would be needed. Thank you documented in this encounter Plan of Treatment Upcoming Encounters Date Type Department Care Team (Late st Contact Info) Description 11/12/2023 8:00 AM EDT Telemedicine Nutrition & Weight Management, [facility] [address] [place] [address] Kaity Yap RDN [address] [place] [address] 12/24/2023 11:00 AM EDT Office Visit [facility], [place] [address] [place] [address] Kinjal Willis PA-C 21 [facility] [place] [phone] Health Maintenance Due Date Last Done Comments [...] this encounter Medical Devices Implanted Type Area Contracts Administrator Device Identifier Shelf Expiration Date Model / Serial / Lot Port Implant W/8f Poly Cath - [id number] Implanted:Qty : 1 on 05/18/2023 by Juan Jose Connell DO at OR [facility] Right: Chest CR BARD : PERIPHERAL VASCULAR [id number] 11/18/2024 [id number] / / [id number] documented as of this encounter Visit Diagnoses [...] the patient have Health Care Power of Bank Advisor? No Code Status History Code Status Date [...] Advance Directives occurred with: Patient Care Teams Patch Washer Relationship Specialty Start Date End Date Kinjal Willis PA-C [address] [place] [address] PCP - General Physician Sterile Processing Tech 11/05/22 documented as of this encounter
--- OUTSIDE RECORDS SUMMARY | 2024-01-01 09:14 | External Medical Summary | Summary of Care ---
Author Name Unknown Organization [facility] Address [address] [place] [address] Phone [phone] Care Team Providers Care Multicultural Internship Name Role Phone Kinjal Willis PA-C Primary Care Provider [phone] Reason for Visit * Reason Onset Date Comments Advice 10/25/2023 Encounter Details Date Type Department Care Team (Late st Contact Info) Description 10/25/2023 Telephone [facility] [place] [facility] [place] [address] Kinjal Willis PA-C 21 [facility] [place] [address] Advice Allergies Active [...] OPIOID OVERDOSE - SEEK IMMEDIATE MEDICAL ATTENTION. [email or web address] 2 Each 3 03/31/2023 Active Polyethylene Glycol [...] as directed, through J-tube via feeding pump. 81276 mL 11 10/05/2023 Active Peptamen AF Oral Liquid Administer 1,000 mL over 12 hours into J tube 4 times a day. 32420 mL 11 09/30/2023 09/24/2024 Active Enteral Feeding [...] to say. * Addendum Note - Roshni Reid LPN [...] would have to go to infusioncenter at [facility]. Please advise if this was discussed or would be needed. Thank you documented in this encounter Plan of Treatment Upcoming Encounters Date Type Department Care Team (Late st Contact Info) Description 11/12/2023 8:00 AM EDT Telemedicine Nutrition & Weight Management, [address] [place] [address] Kaity Yap RDN [address] [place] [address] 12/24/2023 11:00 AM EDT Office Visit [facility], [place] [address] [place] [phone] Kinjal Willis PA-C [address] [facility] [address] [place] [phone] Health Maintenance Due Date Last Done Comments [...] this encounter Medical Devices Implanted Type Area Coverage Analyst Device Identifier Shelf Expiration Date Model / Serial / Lot Port Implant W/8f Poly Cath - [id number] Implanted:Qty : 1 on 05/18/2023 by Juan Jose Connell DO at OR [facility] Right: Chest CR BARD : PERIPHERAL VASCULAR [id number] 11/18/2024 [id number] / / [id number] documented as of this encounter Visit Diagnoses [...] the patient have Health Care Power of Director Health? No Code Status History Code Status Date [...] Advance Directives occurred with: Patient Care Teams Multicultural Internship Relationship Specialty Start Date End Date Kinjal Willis PA-C [address] [place] [address] PCP - General Physician Pharmaceutical Analyst 11/05/22 documented as of this encounter
--- OUTSIDE RECORDS SUMMARY | 2024-01-01 09:14 | External Medical Summary | Summary of Care ---
Author Name Unknown Organization [facility] Address [address] [place] [address] Phone [phone] Care Team Providers Care Podiatric Assistant Name Role Phone Kinjal Willis PA-C Primary Care Provider [phone] Reason for Visit * Reason Onset Date Comments Advice 10/25/2023 Encounter Details Date Type Department Care Team (Late st Contact Info) Description 10/25/2023 Telephone [facility] 21 [facility] [place] [address] Kinjal Willis PA-C 21 [facility] [place] [address] Advice Allergies Active [...] OPIOID OVERDOSE - SEEK IMMEDIATE MEDICAL ATTENTION. [email or web address]?/[email or web address] 2 Each 3 03/31/2023 Active Polyethylene Glycol [...] as directed, through J-tube via feeding pump. 16705 mL 11 10/05/2023 Active Peptamen AF Oral Liquid Administer 1,000 mL over 12 hours into J tube 4 times a day. 38401 mL 11 09/30/2023 09/24/2024 Active Enteral Feeding [...] would have to go to infusioncenter at [facility]. Please advise if this was discussed or would be needed. Thank you documented in this encounter Plan of Treatment Upcoming Encounters Date Type Department Care Team (Late st Contact Info) Description 11/12/2023 8:00 AM EDT Telemedicine Nutrition & Weight Management, [facility] [address] [place] [address] Kaity Yap RDN [address] [place] [address] 12/24/2023 11:00 AM EDT Office Visit [facility] [place] [address] [place] [phone] Kinjal Willis PA-C 21 [place] [phone] Health Maintenance Due Date Last Done Comments [...] encounter Medical Devices Implanted Type Area Production Clerks Supervisor Device Identifier Shelf Expiration Date Model / Serial / Lot Port Implant W/8f Poly Cath - [id number] Implanted:Qty : 1 on 05/18/2023 by Juan Jose Connell, at OR [facility] Right: Chest CR BARD : PERIPHERAL VASCULAR [id number] 11/18/2024 [id number] / / [id number] documented as of this encounter Visit Diagnoses [...] the patient have Health Care Power of Ticket Manager? No Code Status History Code Status Date [...] Advance Directives occurred with: Patient Care Teams Podiatric Assistant Relationship Specialty Start Date End Date Kinjal Willis PA-C [address] [place] [address] PCP - General Physician Artificial Stone Applicator 11/05/22 documented as of this encounter
--- OUTSIDE RECORDS SUMMARY | 2024-01-01 09:14 | External Medical Summary | Summary of Care ---
Author Name Unknown Organization [facility] Address [address] [place] [address] Phone [phone] Care Team Providers Care Tire Design Engineer Name Role Phone Kinjal Reynoso PA-C Primary Care Provider [phone] Reason for Visit * Reason Onset Date Comments Advice 10/25/2023 Encounter Details Date Type Department Care Team (Late st Contact Info) Description 10/25/2023 Telephone [facility] 21 [facility] [place] [address] Kinjal Reynoso PA-C 21 [facility] [place] [address] Advice Allergies Active [...] as of this encounter (statuses as of 10/25/2023) Medications Medication Sig Dispensed Refills Start Date End Date Status Naloxone HCl 4 MG/0.1ML Nasal Liquid (Narcan Nasal)Indications:Ch ronic pelvic pain in female,MEDICATION USE AGREEMENT,Chronic abdominal pain ADMINISTER 1 SPRAY INTO 1 NOSTRIL FOR SUSPECTED OPIOID OVERDOSE - SEEK IMMEDIATE MEDICAL ATTENTION. [email or web address]?/= [email or web address] 2 Each 3 03/31/2023 Active Polyethylene Glycol [...] as directed, through J-tube via feeding pump. 50438 mL 11 10/05/2023 Active Peptamen AF Oral Liquid Administer 1,000 mL over 12 hours into J tube 4 times a day. 62616 mL 11 09/30/2023 09/24/2024 Active Enteral Feeding [...] as of this encounter (statuses as of 10/25/2023) Active Problems Problem Noted Date Diagnosed Date [...] as of this encounter (statuses as of 10/25/2023) Resolved Problems Problem Noted Date Diagnosed Date [...] as of this encounter (statuses as of 10/25/2023) Immunizations Name Administration Dates Next Due DTaP [...] would have to go to infusioncenter at [facility]. Please advise if this was discussed or would be needed. Thank you documented in this encounter Plan of Treatment Upcoming Encounters Date Type Department Care Team (Late st Contact Info) Description 11/12/2023 8:00 AM EDT Telemedicine Nutrition & Weight Management, [address] [place] [address] Kaity Yap RDN [address] [place] [address] 12/24/2023 11:00 AM EDT Office Visit [facility] [place] [address] [place] [phone] Kinjal Reynoso PA-C 21 [facility] [place] [phone] Health Maintenance Due Date Last Done Comments [...] this encounter Medical Devices Implanted Type Area It Sales Executive Device Identifier Shelf Expiration Date Model / Serial / Lot Port Implant W/8f Poly Cath - [id number] Implanted:Qty : 1 on 05/18/2023 by Juan Jose Connell, DO at OR [facility] Right: Chest CR BARD : PERIPHERAL VASCULAR [id number] 11/18/2024 [id number] / / [id number] documented as of this encounter Advance Directives [...] the patient have Health Care Power of Radiologic Technology Program Director? No Code Status History Code Status Date [...] Advance Directives occurred with: Patient Care Teams Tire Design Engineer Relationship Specialty Start Date End Date Kinjal Reynoso PA-C 21 [place] [address] PCP - General Physician Medical Records Auditor 11/05/22 documented as of this encounter
--- OUTSIDE RECORDS SUMMARY | 2024-01-01 09:14 | External Medical Summary ---
Author Name Unknown Address Unknown Organization K01:LABORATORY [facility] - [address] [place] [address] Laboratory Report Ordering Provider Test Date Status ALBA BUTLER 10/25/2023 15:23:46 Final Observation Date Value Abnormality Reference (Units ) Status Ferritin 10/25/2023 15:23:46 25 13-150 (ng /mL) Final Performing Location LABORATORY [facility] - [address] [place] [address]
--- OUTSIDE RECORDS SUMMARY | 2024-01-01 09:14 | External Medical Summary | Summary of Care ---
Author Name Unknown Organization [facility] Address [address] [place] [address] Phone [phone] Care Team Providers Care Air Conditioning Service Technician Name Role Phone Kinjal Willis PA-C Primary Care Provider [phone] Reason for Visit * Reason Onset Date Comments Advice 10/25/2023 Encounter Details Date Type Department Care Team (Late st Contact Info) Description 10/25/2023 Telephone [facility] 21 [facility] [place] [address] Kinjal Willis PA-C 21 [facility] [place] [address] Advice Allergies Active Allergy [...] OPIOID OVERDOSE - SEEK IMMEDIATE MEDICAL ATTENTION. [email or web address] 2 Each 3 03/31/2023 Active Polyethylene Glycol [...] as directed, through J-tube via feeding pump. 96526 mL 11 10/05/2023 Active Peptamen AF Oral Liquid Administer 1,000 mL over 12 hours into J tube 4 times a day. 07281 mL 11 09/30/2023 09/24/2024 Active Enteral Feeding [...] encounter Miscellaneous Notes * Addendum Note - Angela Levy LPN [...] EDT Received a msg via Teams from [facility] lab about pt inquiring on flushing her J- tube. Lab did not see any mention of this or orders in epic. For this to be done, I believe pt would have to go to infusioncenter at [facility]. Please advise if this was discussed or would be needed. Thank you documented in this encounter Plan of Treatment Upcoming Encounters Date Type Department Care Team (Late st Contact Info) Description 11/12/2023 8:00 AM EDT Telemedicine Nutrition & Weight Management, [facility] [address] [place] [address] Kaity Yap RDN [address] [place] [address] 12/24/2023 11:00 AM EDT Office Visit [facility] [place] 21 [place] [phone] Kinjal Willis PA-C [address] [employer] [place] [address] Health Maintenance Due Date Last Done Comments [...] this encounter Medical Devices Implanted Type Area Health And Social Care Teacher Device Identifier Shelf Expiration Date Model / Serial / Lot Port Implant W/8f Poly Cath - [id number] Implanted:Qty : 1 on 05/18/2023 by Juan Jose Connell, at OR [facility] Right: Chest CR BARD : PERIPHERAL VASCULAR [id number] 11/18/2024 [id number] / / [id number] documented as of this encounter Visit Diagnoses [...] patient have Health Care Power of Ticket Seller? No Code Status History Code Status Date [...] Advance Directives occurred with: Patient Care Teams Air Conditioning Service Technician Relationship Specialty Start Date End Date Kinjal Willis PA-C 21 [place] [address] PCP - General Physician Professor Of Geology 11/05/22 documented as of this encounter
--- OUTSIDE RECORDS SUMMARY | 2024-01-01 09:14 | External Medical Summary | Summary of Care ---
Author Name Unknown Organization [facility] Address [address] [place] [address] Phone [phone] Care Team Providers Care Rotary Engine Assembler Name Role Phone Kinjal Willis PA-C Primary Care Provider [phone] Reason for Visit * Reason Onset Date Comments Advice 10/25/2023 Encounter Details Date Type Department Care Team (Late st Contact Info) Description 10/25/2023 Telephone [facility] 21 [facility] [place] [address] Kinjal Willis PA-C 21 [facility] [place] [address] Advice Allergies Active Allergy [...] OPIOID OVERDOSE - SEEK IMMEDIATE MEDICAL ATTENTION. [email or web address]?/[email or web address] 2 Each 3 03/31/2023 Active Polyethylene Glycol [...] as directed, through J-tube via feeding pump. 13608 mL 11 10/05/2023 Active Peptamen AF Oral Liquid Administer 1,000 mL over 12 hours into J tube 4 times a day. 38162 mL 11 09/30/2023 09/24/2024 Active Enteral Feeding [...] would have to go to infusioncenter at [facility]. Please advise if this was discussed or would be needed. Thank you documented in this encounter Plan of Treatment Upcoming Encounters Date Type Department Care Team (Late st Contact Info) Description 11/12/2023 8:00 AM EDT Telemedicine Nutrition & Weight Management, [facility] [address] [place] [address] Kaity Yap RDN [address] [place] [address] 12/24/2023 11:00 AM EDT Office Visit [facility] 21 [place] [phone] Kinjal Willis PA-C 21 [place] [phone] Health Maintenance Due Date Last Done Comments [...] this encounter Medical Devices Implanted Type Area Aircraft Log Clerk Device Identifier Shelf Expiration Date Model / Serial / Lot Port Implant W/8f Poly Cath - [id number] Implanted:Qty : 1 on 05/18/2023 by Juan Jose Connell, at OR [facility] Right: Chest CR BARD : PERIPHERAL VASCULAR [id number] 11/18/2024 [id number] / / [id number] documented as of this encounter Visit Diagnoses [...] the patient have Health Care Power of Community Life Director? No Code Status History Code Status [...] Advance Directives occurred with: Patient Care Teams Rotary Engine Assembler Relationship Specialty Start Date End Date Kinjal Willis PA-C 21 [place] [address] PCP - General Physician Manager Hematology 11/05/22 documented as of this encounter
--- OUTSIDE RECORDS SUMMARY | 2024-01-01 09:14 | External Medical Summary | Summary of Care ---
Author Name Unknown Organization [facility] Address [address] [place] [address] Phone [phone] Care Team Providers Care Senior Painter Name Role Phone Kinjal Willis PA-C Primary Care Provider [phone] Reason for Visit * Reason Onset Date Comments Advice 10/25/2023 Encounter Details Date Type Department Care Team (Late st Contact Info) Description 10/25/2023 Telephone [facility] 21 [facility] [place] [address] Kinjal Willis PA-C 21 [facility] [place] [address] Advice Allergies [...] OPIOID OVERDOSE - SEEK IMMEDIATE MEDICAL ATTENTION. [email or web address]?/[email or web address] 2 Each 3 03/31/2023 Active Polyethylene Glycol [...] as directed, through J-tube via feeding pump. 52323 mL 11 10/05/2023 Active Peptamen AF Oral Liquid Administer 1,000 mL over 12 hours into J tube 4 times a day. 81961 mL 11 09/30/2023 09/24/2024 Active Enteral Feeding [...] would have to go to infusioncenter at [facility]. Please advise if this was discussed or would be needed. Thank you documented in this encounter Plan of Treatment Upcoming Encounters Date Type Department Care Team (Late st Contact Info) Description 11/12/2023 8:00 AM EDT Telemedicine Nutrition & Weight Management, [facility] [address] [place] [address] Kaity Yap RDN [address] [place] [address] 12/24/2023 11:00 AM EDT Office Visit [facility] [place] 21 [place] [phone] Kinjal Willis PA-C [address] [employer] [place] [phone] Health Maintenance Due Date Last Done Comments [...] this encounter Medical Devices Implanted Type Area Exhibit Designer Device Identifier Shelf Expiration Date Model / Serial / Lot Port Implant W/8f Poly Cath - [id number] Implanted:Qty : 1 on 05/18/2023 by Juan Jose Connell, at OR [facility] Right: Chest CR BARD : PERIPHERAL VASCULAR [id number] 11/18/2024 [id number] / / [id number] documented as of this encounter Visit Diagnoses [...] the patient have Health Care Power of [place] Clerk? No Code Status History Code Status Date [...] Advance Directives occurred with: Patient Care Teams Senior Painter Relationship Specialty Start Date End Date Kinjal Willis PA-C [address] [place] [address] PCP - General Physician Tobacco Cutter 11/05/22 documented as of this encounter
--- OUTSIDE RECORDS SUMMARY | 2024-01-01 09:14 | External Medical Summary | Summary of Care ---
Author Name Unknown Organization [facility] Address [address] [place] [address] Phone [phone] Care Team Providers Care Dental Receptionist Name Role Phone Kinjal Reynoso PA-C Primary Care Provider [phone] Reason for Visit * Reason Comments Outpatient Testing Encounter Details Date Type Department Care Team (Late st Contact Info) Description 10/25/2023 3:20 PM EDT Laboratory Laboratory, [place] [address] [place] [address] [facility] 21 [place] [address] Gastroparesis; Vitamin D deficiency; B12 deficiency Allergies Active Allergy Reactions Criticality Noted Date [...] OPIOID OVERDOSE - SEEK IMMEDIATE MEDICAL ATTENTION. HTTPS://[email or web address]?/= [email or web address] 2 Each 3 03/31/2023 Active Polyethylene Glycol [...] as directed, through J-tube via feeding pump. 00876 mL 11 10/05/2023 Active Peptamen AF Oral Liquid Administer 1,000 mL over 12 hours into J tube 4 times a day. 846[address] mL 11 09/30/2023 09/24/2024 Active Enteral Feeding [...] AM EDT Telemedicine Nutrition & Weight Management, [facility] 132 [place] [address] Kaity Yap RDN [address] [place] [address] 12/24/2023 11:00 AM EDT Office Visit [facility] [place] [address] [place] [phone] Kinjal Reynoso PA-C [address] [place] [address] Pending Results Name Type Priority Associated Diagnoses Date /Time COMPREHENSIVE METABOLIC PANEL Lab Routine Gastroparesis 10/25/2023 3:23 PM EDT CBC Lab Routine Gastroparesis 10/25/2023 3:23 PM EDT TSH WITH FREE T4 IF INDICATED Lab Routine Gastroparesis 10/25/2023 3:23 PM EDT MAGNESIUM Lab Routine Gastroparesis 10/25/2023 3:23 PM EDT 25-HYDROXY VITAMIN D Lab Routine Vitamin D deficiency 10/25/2023 3:23 PM EDT VITAMIN B12 Lab Routine B12 deficiency 10/25/2023 3:23 PM EDT FERRITIN Lab Routine Gastroparesis 10/25/2023 3:23 PM EDT Health Maintenance Due Date Last Done Comments [...] this encounter Medical Devices Implanted Type Area Straw Hat Washer Operator Device Identifier Shelf Expiration Date Model / Serial / Lot Port Implant W/8f Poly Cath - [id number] Implanted:Qty : 1 on 05/18/2023 by Juan Jose Connell, at OR [facility] Right: Chest CR BARD : PERIPHERAL VASCULAR [id number] 11/18/2024 [id number] / / [id number] documented as of this encounter Visit Diagnoses Diagnosis Gastroparesis Vitamin D deficiency Unspecified vitamin D deficiency B12 deficiency Other B-complex deficiencies documented in this encounter Advance Directives Latest Code Status on File Code Status Date Activated Date Inactivated Comments Full Code 2023 5:38 AM 09/07/2023 6:53 PM This order reflects the patients wishes and were consensually agreed upon. Question Answer Comments Discussion of Advance Directives occurred with: Patient Does the patient have a Living Will? No Does the patient have Health Care Power of Collator? No Code Status History Code Status Date [...] Advance Directives occurred with: Patient Care Teams Dental Receptionist Relationship Specialty Start Date End Date Kinjal Reynoso PA-C [address] [place] [address] PCP - General Physician Community Educator 11/05/22 documented as of this encounter
--- OUTSIDE RECORDS SUMMARY | 2024-01-01 09:14 | External Medical Summary | Summary of Care ---
Author Name Unknown Organization [facility] Address [address] [place] [address] Phone [phone] Care Team Providers Care Die Barber Name Role Phone Kinjal Willis PA-C Primary Care Provider [phone] Reason for Visit * Reason Onset Date Comments Advice 10/25/2023 Encounter Details Date Type Department Care Team (Late st Contact Info) Description 10/25/2023 Telephone [facility] 21 [facility] [place] [phone] Kinjal Willis PA-C 21 [facility] [place] [address] Advice Allergies Active Allergy [...] OPIOID OVERDOSE - SEEK IMMEDIATE MEDICAL ATTENTION. [email or web address] 2 Each 3 03/31/2023 Active Polyethylene Glycol [...] as directed, through J-tube via feeding pump. 53457 mL 11 10/05/2023 Active Peptamen AF Oral Liquid Administer 1,000 mL over 12 hours into J tube 4 times a day. 27539 mL 11 09/30/2023 09/24/2024 Active Enteral Feeding [...] Note - Roshni Reid LPN - 10/26/2023 3:37 PM EDTAddended by: ROSHNI REID on: 10/26/2023 03:37 PM Modules accepted: Orders [...] would have to go to infusioncenter at [facility]. Please advise if this was discussed or would be needed. Thank you documented in this encounter Plan of Treatment Upcoming Encounters Date Type Department Care Team (Late st Contact Info) Description 11/12/2023 8:00 AM EDT Telemedicine Nutrition & Weight Management, [facility] [address] [place] [address] Kaity Yap RDN [address] [place] [address] 12/24/2023 11:00 AM EDT Office Visit [facility], [place] [address] [place] [phone] Kinjal Willis PA-C [address] [place] [address] [phone] Health Maintenance Due Date Last Done Comments [...] this encounter Medical Devices Implanted Type Area Pipe Organ Technician Device Identifier Shelf Expiration Date Model / Serial / Lot Port Implant W/8f Poly Cath - [id number] Implanted:Qty : 1 on 05/18/2023 by Juan Jose Connell DO at OR [facility] Right: Chest CR BARD : PERIPHERAL VASCULAR [id number] 11/18/2024 [id number] / / [id number] documented as of this encounter Visit Diagnoses [...] the patient have Health Care Power of Museum Registrar? No Code Status History Code Status Date [...] Advance Directives occurred with: Patient Care Teams Die Barber Relationship Specialty Start Date End Date Kinjal Willis PA-C [address] [place] [address] [phone] PCP - General Physician Remote Advisor 11/05/22 documented as of this encounter
--- OUTSIDE RECORDS SUMMARY | 2024-01-01 09:14 | External Medical Summary | Summary of Care ---
Author Name Unknown Organization [facility] Address [address] [place] [address] Phone [phone] Care Team Providers Care Heavy Equipment Operator Apprentice Name Role Phone Kinjal Reynoso PA-C Primary Care Provider [phone] Reason for Visit * Reason Onset Date Comments Advice 10/25/2023 Encounter Details Date Type Department Care Team (Late st Contact Info) Description 10/25/2023 Telephone [facility] [place] [phone] Kinjal Reynoso PA-C 21 [facility] [place] [address] Advice Allergies [...] OPIOID OVERDOSE - SEEK IMMEDIATE MEDICAL ATTENTION. [email or web address] 2 Each 3 03/31/2023 Active Polyethylene Glycol [...] as directed, through J-tube via feeding pump. 25664 mL 11 10/05/2023 Active Peptamen AF Oral Liquid Administer 1,000 mL over 12 hours into J tube 4 times a day. 87247 mL 11 09/30/2023 09/24/2024 Active Enteral Feeding [...] would have to go to infusioncenter at [facility]. Please advise if this was discussed or would be needed. Thank you documented in this encounter Plan of Treatment Upcoming Encounters Date Type Department Care Team (Late st Contact Info) Description 11/12/2023 8:00 AM EDT Telemedicine Nutrition & Weight Management, Health [facility] [address] [place] [address] Kaity Yap RDN [address] [place] [address] 12/24/2023 11:00 AM EDT Office Visit [facility], [place] [address] [place] [phone] Kinjal Reynoso PA-C 21 [employer] [place] [phone] Health Maintenance Due Date Last Done Comments [...] this encounter Medical Devices Implanted Type Area Dope Heater Device Identifier Shelf Expiration Date Model / Serial / Lot Port Implant W/8f Poly Cath - [id number] Implanted:Qty : 1 on 05/18/2023 by Juan Jose Connell, DO at OR [facility] Right: Chest CR BARD : PERIPHERAL VASCULAR [id number] 11/18/2024 [id number] / / [id number] documented as of this encounter Advance Directives [...] the patient have Health Care Power of Manual Equipment Mechanic? No Code Status History Code Status Date [...] Advance Directives occurred with: Patient Care Teams Heavy Equipment Operator Apprentice Relationship Specialty Start Date End Date Kinjal Reynoso PA-C [address] [place] [address] [phone] PCP - General Physician Online Merchandising Specialist 11/05/22 documented as of this encounter
--- OUTSIDE RECORDS SUMMARY | 2024-01-01 09:14 | External Medical Summary | Summary of Care ---
Author Name Unknown Organization [facility] Address [address] [place] [address] Phone [phone] Care Team Providers Care Inspector Poising Name Role Phone Kinjal Reynoso PA-C Primary Care Provider [phone] Reason for Referral * Evaluate & Treat - Unlimited Visits (Within 10 days (routine)) - Pending Review Specialty Diagnoses / Procedures Referred By Carmen kirby Referred To Contact Pain Management / Pain Medicine Diagnoses Gastroparesis Chronic abdominal pain Chronic female pelvic pain Kinjal Reynoso PA-C [address] [place] [address] Referral ID Status Reason Start Date Expiration Date Visits Requested Visits Authorized [id number] Pending Review Specialty Services Required 10/25/[phone] Question Answer Referral Priority Within 10 days (routine) Where should this appointment be scheduled? External Reason for referral? Non Interventional Pain Management What is the preferred location to have this test performed? Non [facility] Site Comments Patient Name: Anirudh Peñaloza Date of : 2000 Department Phone Number: MRI or CT (if unable to have a MRI) is recommended if any of the following apply: 1. Patient has neck or back pain with radiation to extremities. A previous MRI will be accepted if symptoms unchanged since prior MRI. 2. Spinal surgery since last MRI. If yes, order a MRI with and without contrast. 3. Hx or ongoing cancer treatment. Patient will need spine x-ray (Ap/Lat) for axial neck or back pain if not done previously. Fax No. [facility] [phone] or contact frontload driver [phone] Fax No. [facility] [phone] or contact frontload driver [phone] Fax No. [facility] [phone] or contact frontload driver [phone] Reason for Visit * Reason Comments Acute Pt got J tube put ba ck in on 09/27-has been having back and abdominal pain and has been very tired Pt found pain clinics and would like a referral to be seen Encounter Details Date Type Department Care Team (Late st Contact Info) Description 10/25/2023 2:40 PM EDT Office Visit [facility] [address] [place] [phone] Kinjal Reynoso PA-C [address] [place] [address] Chronic abdominal pain*; Gastroparesis; Chronic female pelvic pain; Jejunostomy tube present (HCC); Vitamin D deficiency; B12 deficiency Allergies Active [...] OPIOID OVERDOSE - SEEK IMMEDIATE MEDICAL ATTENTION. [email or web address] 2 Each 3 03/31/2023 Active Polyethylene Glycol [...] as directed, through J-tube via feeding pump. 54540 mL 11 10/05/2023 Active Peptamen AF Oral Liquid Administer 1,000 mL over 12 hours into J tube 4 times a day. 30460 mL 11 09/30/2023 Active Enteral Feeding Piston Syringe Use as directed. 30 Each 11 09/30/2023 Active oxyCODONE HCl 5 MG Oral Tablet (Oxy IR)Indications:Fransisco roparesis,Chronic pelvic pain in female,Malfunction of jejunostomy tube (HCC) Take 1 Tablet by mouth every 6 hours as needed for severe pian. (No more than 4 doses in 24 hours.). Must last 28 days. 108 Tablet 0 10/21/2023 Active Lidocaine 5 % External Patch (Lidoderm) Place 1 patch to skin over 12 hours every 24 hours Remove patch after 12 hours.. 30 Patch 0 06/03/2023 4 Discontinue d(Patient preference/ discontinua tion) Gabapentin 100 MG Oral Capsule (Neurontin) Take 1 Capsule by mouth in the morning and 1 Capsule at noon and 1 Capsule before bedtime. Take with your 300 mg gabapentin capsule for total of 400 mg per dose.. 90 Capsule 0 08/16/2023 4 Discontinue d(Patient preference/ discontinua tion) Azithromycin 250 MG Oral Tablet (Zithromax)Indicati ons:Gastroparesis Take 1 Tablet by mouth in the morning. 14 Tablet 0 09/23/2023 4 Discontinue d(Patient preference/ discontinua tion) documented as of this encounter (statuses as [...] Sign Reading Time Taken Comments Blood Pressure 102/64 10/25/2023 2:33 PM EDT Pulse 91 10/25/2023 2:33 PM EDT Temperature 36.6 C (97.8 F) 10/25/2023 2:33 PM ED T Respiratory Rate 18 10/25/2023 2:33 PM EDT Oxygen Saturation 98% 10/25/2023 2:33 PM EDT Inhaled Oxygen Concentration - - Weight 75.8 kg (167 lb 1.6 oz) 10/25/2023 2:33 P M EDT Height - - Body Mass Index 30.56 10/17/2023 7:55 PM EDT documented in this encounter Functional [...] No 2023 documented as of this encounter Progress Notes * Kinjal Reynoso PA-C - 10/25/2023 2:42 PM EDT Images from the original note were not included. History of Present Illness Chief Complaint Patient presents with Acute Pt got J tube put back in on 09/27-has been having back and abdominal pain and has been very tired Pt found pain clinics and would like a referral to be seen Pt presents for follow up. J-tube put back in on 09/28/23. This has helped. She has not been eating by mouth and this has resolved vomiting. Then the past 3-4 days, she has noticed some back and abdominal pain and feeling very tired. She has had intermittent diarrhea for the past few days. She has been sleeping all the time, but feels like she hasn't slept much. No fevers or chills. But getting hot and cold flashes at night. Lastly, pt would like new referral to pain medicine. Current Medications: Peptamen 1.5 Donald Oral Liquid oxyCODONE HCl 5 MG Oral Tablet (Oxy IR) Enteral Feeding Piston Syringe Peptamen AF Oral Liquid Ondansetron 4 MG Oral Tablet Disintegrating (Zofran) Promethazine HCl 25 MG Oral Tablet (Phenergan) Gabapentin 300 MG Oral Capsule (Neurontin) Acetaminophen 160 MG/5ML Oral Suspension (Tylenol) Polyethylene Glycol 3350 17 GM/SCOOP Oral Powder (MiraLax) Naloxone HCl 4 MG/0.1ML Nasal Liquid (Narcan Nasal) Physical Exam BP 102/64 | Pulse 91 | Temp 36.6 C (97.8 F) (Tympanic) | Resp 18 | Wt 75.8 kg (167 lb 1.6 oz) |LMP (LMP Unknown) | SpO2 98% | BMI 30.56 kg/m | BSA 1.82 m Physical Exam Vitals and nursing note reviewed. Constitutional: General: She is not in acute distress. Appearance: Normal appearance. She is not ill-appearing, toxic-appearing or diaphoretic. Cardiovascular: Rate and Rhythm: Normal rate and regular rhythm. Heart sounds: Normal heart sounds. Pulmonary: Effort: Pulmonary effort is normal. Breath sounds: Normal breath sounds. Abdominal: General: There is no distension. Tenderness: There is abdominal tenderness (Significant and generalized). There is guarding (Chronic). Comments: J-tube left upper quadrant Musculoskeletal: Right lower leg: No edema. Left lower leg: No edema. Neurological: Mental Status: She is alert and oriented to person, place, and time. Cranial Nerves: No cranial nerve deficit. Motor: No weakness. Gait: Gait normal. Psychiatric: Mood and Affect: Mood normal. I have reviewed the following results: BMP results Recent Labs Units 09/07/23 0432 09/06/23 0201 08/15/23 2117 SODIUM - [facility] mmol/L 140 140 138 POTASSIUM - [facility] mmol/L 3.2* 3.7 4.1 CHLORIDE - [facility] mmol/L 106 108* 105 CO2 - [facility] mmol/L 22 21* 21* CREATININE - [facility] mg/dL 0.7 0.6 0.6 BUN - [facility] mg/dL 4* 9 7 Lipid panel results Recent Labs Units 03/29/23 1206 CHOLESTEROL - [facility] mg/dL 232* LDL CHOLESTEROL (CALCULATED) - [facility] mg/dL 165* HDL CHOLESTEROL - [facility] mg/dL 51 TRIGLYCERIDES - [facility] mg/dL 82 CBC results Recent Labs Units 09/07/23 0432 09/06/23 0201 08/15/23 2117 WBC K/uL 4.64 4.71 5.08 HGB g/dL 13.2 13.2 13.2 HCT % 38.8 37.8 38.0 PLT K/uL 225 233 263 HbA1c results Recent Labs Units 03/02/23 0229 HEMOGLOBIN, [id number] LAB % 5.0 TSH results Recent Labs Units 03/29/23 1206 03/23/23 0000 TSH - [facility] uIU/mL 0.76 -- TSH - OUTSIDE LAB UIU/ML -- 1.15 Vitamin D results Recent Labs Units 03/29/23 1207 25-HYDROXY VITAMIN D - [facility] ng/mL 27 Hepatic panel results Recent Labs Units 09/06/23 0201 08/15/23 2117 08/12/23 1121 PROTEIN - [facility] g/dL 6.6 7.0 6.0 BILIRUBIN, TOTAL - [facility] mg/dL <0.2 0.2 0.2 ALKALINE PHOSPHATASE - [facility] U/L 77 73 64 AST - [facility] U/L 14 14 13 ALT - [facility] U/L 10 10 11 Assessment and Plan Chronic abdominal pain - PAIN MEDICINE REFERRAL OP Gastroparesis - PAIN MEDICINE REFERRAL OP - COMPREHENSIVE METABOLIC PANEL; Future - CBC; Future - TSH WITH FREE T4 IF INDICATED; Future - MAGNESIUM; Future - FERRITIN; Future Chronic female pelvic pain - PAIN MEDICINE REFERRAL OP Jejunostomy tube present (HCC) Vitamin D deficiency - 25-HYDROXY VITAMIN D; Future B12 deficiency - VITAMIN B12; Future Likely viral gastroenteritis currently. Encouraged rest hydration. Patient to continue with J-tube feedings and follow-up with nutrition. Patient would like referral to pain Medicine. She has called her insurance and has some names some pain doctors to attempt to get an appointment with. Patient not likely returning to surgeon who put in J-tube in [place]. Patient will establish new surgeon. She would like to check with her insurance to see if there is a gastroparesis specialists with [facility]. Wrap-Up Return for As scheduled. Time: I spent a total of 20-29 minutes (exact time 28 mins) on the date of service in preparation, delivery, and documentation of the care provided to Anirudh CuevaskarishmaLoc excluding any time spent inthe performance of [...] AM EDT Telemedicine Nutrition & Weight Management, [facility] [address] [place] [address] Kaity Yap RDN [address] [place] [address] 12/24/2023 11:00 AM EDT Office Visit [facility] [place] 21 [place] [phone] Kinjal Reynoso PA-C 21 [place] [address] Pending Results Name Type Priority Associated Diagnoses [...] Lab Routine Gastroparesis 10/25/2023 3:23 PM EDT Scheduled Orders Name Type Priority Associated Diagnoses Orde r Schedule COMPREHENSIVE METABOLIC PANEL Lab Routine Gastroparesis Expected: 10/25/2023, Expires: 10/24/2024 CBC Lab Routine Gastroparesis Expected: 10/25/2023, Expires: 10/24/2024 TSH WITH FREE T4 IF INDICATED Lab Routine Gastroparesis Expected: 10/25/2023, Expires: 10/24/2024 MAGNESIUM Lab Routine Gastroparesis Expected: 10/25/2023, Expires: 10/24/2024 25-HYDROXY VITAMIN D Lab Routine Vitamin D deficiency Expected: 10/25/2023, Expires: 10/24/2024 VITAMIN B12 Lab Routine B12 deficiency Expected: 10/25/2023, Expires: 10/24/2024 FERRITIN Lab Routine Gastroparesis Expected: 10/25/2023, Expires: 10/24/2024 Scheduled Referrals Name Type Priority Associated Diagnoses Orde r Schedule PAIN MEDICINE REFERRAL OP Referral Within 10 days (routine) Gastroparesis Chronic abdominal pain Chronic female pelvic pain Ordered: 10/25/2023 Health Maintenance Due Date Last Done Comments [...] this encounter Medical Devices Implanted Type Area Technology Recruiter Device Identifier Shelf Expiration Date Model / Serial / Lot Port Implant W/8f Poly Cath - [id number] Implanted:Qty : 1 on 05/18/2023 by Juan Jose Connell, at OR [facility] Right: Chest CR BARD : PERIPHERAL VASCULAR [id number] 11/18/2024 [id number] / / [id number] documented as of this encounter Visit Diagnoses Diagnosis Chronic abdominal pain- Primary Abdominal pain, unspecified site Gastroparesis Chronic female pelvic pain Unspecified symptom associated with female genital organs Jejunostomy tube present (HCC) Status of other artificial opening of gastrointestinal tract Vitamin D deficiency Unspecified vitamin D deficiency [...] the patient have Health Care Power of Radio Station Operator? No Code Status History Code Status Date [...] Advance Directives occurred with: Patient Care Teams Inspector Poising Relationship Specialty Start Date End Date Kinjal Reynoso PA-C [address] [place] [address] PCP - General Physician Cleaning Staff Supervisor 11/05/22 documented as of this encounter
--- OUTSIDE RECORDS SUMMARY | 2024-01-01 09:14 | External Medical Summary ---
Author Name Unknown Address Unknown Organization K01:LABORATORY [facility] [place] - [address] [place] [address] Laboratory Report Ordering Provider Test Date Status ALBA BUTLER 10/25/2023 15:23:46 Final Observation Date Value Abnormality Reference (Units ) Status Vitamin B12 10/25/2023 15:23:46 [phone] (pg/mL) Final Performing Location LABORATORY [facility] - [address] [place] [address]
--- OUTSIDE RECORDS SUMMARY | 2024-01-01 09:15 | External Medical Summary ---
Author Name Unknown Address Unknown Organization K01:[facility] [place] [address] [place] [address] Laboratory Report Ordering Provider Test Date Status ALBA BUTLER 10/25/2023 15:23:46 Final Deficient: <20 ng/mL
Ins ufficient: 20-29 ng/mL
Recommended/Optimum:30-50 ng/mL

Vitamin D intoxication is rare. If suspicious of Vitamin D toxicity, evaluation of serum Calcium and PTH is recommended. Observation Date Value Abnormality Reference (Units ) Status 25-OH Vitamin D total 10/25/2023 15:23:46 20 >19 (ng/mL) Final Performing Location LABORATORY [facility] - [address] [place] [address]
--- OUTSIDE RECORDS SUMMARY | 2024-01-01 09:15 | External Medical Summary | Summary of Care ---
Author Name Unknown Organization [facility] Address [address] [place] [address] Phone [phone] Care Team Providers Care Oil Well Cable Tool Operator Name Role Phone Kinjal Reynoso PA-C Primary Care Provider [phone] Reason for Visit * Reason Onset Date Comments Home Tube Feeding 09/29/2023 Encounter Details Date Type Department Care Team (Late st Contact Info) Description 09/29/2023 Telephone Nutrition & Weight Management, [facility] [address] [place] [address] Kaity Yap RDN [address] [place] [address] Home Tube Feeding Allergies Active Allergy Reactions Criticality Noted Date [...] as of this encounter (statuses as of 09/30/2023) Medications Medication Sig Dispensed Refills Start Date End Date Status Naloxone HCl 4 MG/0.1ML Nasal Liquid (Narcan Nasal)Indications:Ch ronic pelvic pain in female,MEDICATION USE AGREEMENT,Chronic abdominal pain ADMINISTER 1 SPRAY INTO 1 NOSTRIL FOR SUSPECTED OPIOID OVERDOSE - SEEK IMMEDIATE MEDICAL ATTENTION. [email or web address] 2 Each 3 03/31/2023 Active Polyethylene Glycol [...] Additional Information Patient not taking.Reported on 07/23/2023 Acetaminophen 160 MG/5ML Oral Suspension (Tylenol)Indications :Chronic [...] on tongue. 30 Tablet 2 09/13/2023 Active Azithromycin 250 MG Oral Tablet (Zithromax)Indicatio ns:Gastroparesis Take 1 Tablet by mouth in the morning. 14 Tablet 0 09/23/2023 Active oxyCODONE HCl 5 MG Oral Tablet (Oxy IR)Indications:Gastr oparesis,Chronic pelvic pain in female,Malfunction of jejunostomy tube (HCC) Take 1 Tablet by mouth every 6 hours as needed for severe pian. (No more than 4 doses in 24 hours.). Must last 28 days. 108 Tablet 0 09/23/2023 Active documented as of this encounter (statuses as of 09/30/2023) Active Problems Problem Noted Date Diagnosed Date [...] as of this encounter (statuses as of 09/30/2023) Resolved Problems Problem Noted Date Diagnosed Date [...] as of this encounter (statuses as of 09/30/2023) Immunizations Name Administration Dates Next Due DTaP [...] encounter Miscellaneous Notes * Addendum Note - Baldemar Richard LPN - 09/30/2023 10:52 AM EDTAddended by: BALDEMAR RICHARD on: 09/30/2023 10:52 AM Modules accepted: Orders * Telephone Encounter - aKity Yap RDN - 09/29/2023 3:36 PM EDT Pt seen today to re-initiate enteral nutrition. J-tube re-[facility] yesterday 09/28/23 at [facility]. Please pend the below for provider to approve and send to [facility]. Tube Feeding Prescription: Peptamin 1.5 administered via feeding pump for J tube Feed Goal: 4 cartons a day (1000 TV) administered over 12 hrs. (68 g protein, 772 mL water, 1500 kcals) Water flushes 180 mL four times a day PO water intake: 673 mL (23 oz) Nutrition Justification of Enteral Feeds: Adequate nutrition impossible by diet adjustment and/or oral supplements., Tube feedings required for sufficient nutrients to maintain weight and strength. Pt sharing she is in need to formula and syringes. She still has her pump. documented in this encounter Plan of Treatment Upcoming Encounters Date Type Department Care Team (Late st Contact Info) Description 12/08/2023 5:20 PM EDT Office Visit [facility] [place] [address] [place] [address] [phone] Kinjal Reynoso PA-C [address] [place] [address] [address] 12/17/2023 2:30 PM EDT Telemedicine Nutrition & Weight Management, [facility] [address] [place] [address] Kaity Yap RDN [address] [place] [address] Health Maintenance Due Date Last Done Comments [...] this encounter Medical Devices Implanted Type Area Tire Fabricator Device Identifier Shelf Expiration Date Model / Serial / Lot Port Implant W/8f Poly Cath - [id number] Implanted:Qty : 1 on 05/18/2023 by Juan Jose Connell, DO at OR [facility] Right: Chest CR BARD : PERIPHERAL VASCULAR [id number] 11/18/2024 [id number] / / [id number] documented as of this encounter Advance Directives [...] the patient have Health Care Power of Leader Writer? No Code Status History Code Status Date [...] Advance Directives occurred with: Patient Care Teams Oil Well Cable Tool Operator Relationship Specialty Start Date End Date Kinjal Reynoso PA-C [address] [place] [address] [address] PCP - General Physician Blackjack Pit Boss 11/05/22 documented as of this encounter
--- OUTSIDE RECORDS SUMMARY | 2024-01-01 09:15 | External Medical Summary | Summary of Care ---
Author Name Unknown Organization [facility] Address [address] [place] [address] Phone [phone] Care Team Providers Care Seasonal Tax Preparer Name Role Phone Kinjal Reynoso PA-C Primary Care Provider [phone] Reason for Visit * Reason Onset Date Comments Appointment 09/28/2023 Encounter Details Date Type Department Care Team (Late st Contact Info) Description 09/28/2023 Telephone Nutrition & Weight Management, [facility] [address] [place] [address] Kaity Yap RDN [address] [place] [address] Appointment Allergies Active Allergy Reactions Criticality Noted [...] as of this encounter (statuses as of 10/01/2023) Medications Medication Sig Dispensed Refills Start Date End Date Status Naloxone HCl 4 MG/0.1ML Nasal Liquid (Narcan Nasal)Indications:Ch ronic pelvic pain in female,MEDICATION USE AGREEMENT,Chronic abdominal pain ADMINISTER 1 SPRAY INTO 1 NOSTRIL FOR SUSPECTED OPIOID OVERDOSE - SEEK IMMEDIATE MEDICAL ATTENTION. [email or web address] 2 Each 3 03/31/2023 Active Polyethylene Glycol [...] as of this encounter (statuses as of 10/01/2023) Active Problems Problem Noted Date Diagnosed Date [...] as of this encounter (statuses as of 10/01/2023) Resolved Problems Problem Noted Date Diagnosed Date [...] as of this encounter (statuses as of 10/01/2023) Immunizations Name Administration Dates Next Due DTaP [...] Telephone Encounter - Babs Still OSA - 10/01/2023 11:05 AM EDT Pt was seen on 09/29/23 * Telephone Encounter - Kaity Yap RDN - 09/28/2023 4:47 PM EDT Please contact pt. I received a request to re-initiate tube feed orders for J- tube replacement thatwas recently done. Pt tube feeds previously managed by myself/[facility]. Should be seen by me before orders placed for tube feeds. I have an open [phone] visit tomorrow 09/29/23. Can be VV. documented in this encounter Plan of Treatment Upcoming Encounters Date Type Department Care Team (Late st Contact Info) Description 12/08/2023 5:20 PM EDT Office Visit [facility] [place] [address] [phone] Kinjal Reynoso PA-C [address] [phone] 12/17/2023 2:30 PM EDT Telemedicine Nutrition & Weight Management, [facility] [address] [place] [address] Kaity Yap RDN [address] [place] [address] Health Maintenance Due Date Last Done Comments [...] this encounter Medical Devices Implanted Type Area Clinical Rehabilitation Specialist Device Identifier Shelf Expiration Date Model / Serial / Lot Port Implant W/8f Poly Cath - [id number] Implanted:Qty : 1 on 05/18/2023 by Juan Jose Connell DO at OR [facility] Right: Chest CR BARD : PERIPHERAL VASCULAR [id number] 11/18/2024 [id number] / / [id number] documented as of this encounter Advance Directives [...] the patient have Health Care Power of Shaft Mechanic? No Code Status History Code Status [...] Advance Directives occurred with: Patient Care Teams Seasonal Tax Preparer Relationship Specialty Start Date End Date Kinjal Reynoso PA-C [address] [phone] PCP - General Physician Tassel Maker 11/05/22 documented as of this encounter
--- OUTSIDE RECORDS SUMMARY | 2024-01-01 09:15 | External Medical Summary | Summary of Care ---
Author Name Unknown Organization [facility] Address [address] [place] [address] Phone [phone] Care Team Providers Care Director Software Name Role Phone Kinjal Reynoso PA-C Primary Care Provider [phone] Reason for Visit * Reason Onset Date Comments Encounter Created in Error 09/29/2023 Encounter Details Date Type Department Care Team (Late st Contact Info) Description 09/29/2023 Telephone Nutrition & Weight Management, [facility] [address] [place] [address] Kaity Yap RDN [address] [place] [address] Encounter Created in Error Allergies Active Allergy Reactions Criticality Noted Date [...] as of this encounter (statuses as of 09/29/2023) Medications Medication Sig Dispensed Refills Start Date End Date Status Naloxone HCl 4 MG/0.1ML Nasal Liquid (Narcan Nasal)Indications:Ch ronic pelvic pain in female,MEDICATION USE AGREEMENT,Chronic abdominal pain ADMINISTER 1 SPRAY INTO 1 NOSTRIL FOR SUSPECTED OPIOID OVERDOSE - SEEK IMMEDIATE MEDICAL ATTENTION. [email or web address] 2 Each 3 03/31/2023 Active Polyethylene Glycol [...] as of this encounter (statuses as of 09/29/2023) Active Problems Problem Noted Date Diagnosed Date [...] as of this encounter (statuses as of 09/29/2023) Resolved Problems Problem Noted Date Diagnosed Date [...] as of this encounter (statuses as of 09/29/2023) Immunizations Name Administration Dates Next Due DTaP [...] Team (Late st Contact Info) Description 09/29/2023 3:10 PM EDT Telemedicine Nutrition & Weight Management, [facility] [address] [address] Kaity Yap RDN [address] [place] [address] 12/08/2023 5:20 PM EDT Office Visit [facility] [place] [address] [phone] Kinjal Reynoso PA-C [address] [address] Health Maintenance Due Date Last Done Comments [...] this encounter Medical Devices Implanted Type Area Analyst Food And Beverage Device Identifier Shelf Expiration Date Model / Serial / Lot Port Implant W/8f Poly Cath - [id number] Implanted:Qty : 1 on 05/18/2023 by Juan Jose Connell, at OR [facility] Right: Chest CR BARD : PERIPHERAL VASCULAR [id number] 11/18/2024 [id number] / / [id number] documented as of this encounter Advance Directives [...] the patient have Health Care Power of Mixing Supervisor? No Code Status History Code Status [...] Directives occurred with: Patient Care Teams Director Software Relationship Specialty Start Date End Date Kinjal Reynoso PA-C [address] [address] PCP - General Physician Vocational Rehabilitation Technician 11/05/22 documented as of this encounter
--- OUTSIDE RECORDS SUMMARY | 2024-01-01 09:15 | External Medical Summary ---
Author Name Unknown Address Unknown Organization K01:[facility] - [address] [place] [address] Laboratory Report Ordering Provider Test Date Status ALBA BUTLER 10/25/2023 15:23:46 Final Observation Date Value Abnormality Reference (Units ) Status Magnesium 10/25/2023 15:23:46 1.9 1.5-2.6 (m g/dL) Final Performing Location [facility] - [address] [place] [address]
--- OUTSIDE RECORDS SUMMARY | 2024-01-01 09:15 | External Medical Summary | Summary of Care ---
Author Name Unknown Organization [facility] Address [address] [place] [address] Phone [phone] Care Team Providers Care Psychiatric Mental Health Nurse Name Role Phone Kinjal Reynoso PA-C Primary Care Provider [phone] Reason for Visit * Reason Comments Home Tube Feeding Encounter Details Date Type Department Care Team (Late st Contact Info) Description 09/29/2023 3:10 PM EDT Telemedicine Nutrition & Weight Management, [facility] [address] [place] [address] Kaity Yap RDN [address] [place] [address] Gastroparesis*; Jejunostomy tube present (HCC); Class 1 obesity due to excess calories without serious comorbidity with body mass index (BMI) of 30.0 to 30.9 in adult Allergies Active Allergy Reactions Criticality Noted Date [...] - SEEK IMMEDIATE MEDICAL ATTENTION. [email or web address] 2 Each 3 03/31/2023 Active Polyethylene Glycol [...] Progress Notes * Kaity Yap RDN - 09/29/2023 3:10 PM EDT HOME TUBE FEEDING NUTRITION Follow up isinger Name: Anirudh Marino Jh Location: NUTRITION & WEIGHT MANAGEMENT, [facility] Date: 09/29/2023 Time: 11:57 AM Patient was identified by name and date. Patient location: HOME. I was in a hospital or clinic location. After connecting through [employer],patient was verified with two unique identifiers. Patient (or authorized legal auto claim representative) was then informed that this was a Telemedicine visit and being conducted confidentially over secure lines. Methods to assure confidentiality were taken. Patient acknowledged consent and understanding of pr ivacy and security of the Telemedicine visit. The patient agreed to participate. Reason for Referral: Tube Feeds NUTRITION ASSESSMENT: Client History: Age/Sex: 23 year old female PMH: She has a history of endometriosis s/p hysterectomy, gastroparesis s/p PEG tube placement 02/23/2023 09/29/2023 -TF consult for re-initiation of TFs s/p J-tube replacement 09/28/23 -Per note from [facility] physician: "Patient had messaged me a food log recently. She states she has not been tolerating anything per oral. However, based on review of the chart, she has been maintaining her weight appropriately despite her claims. In any case, patient is pushing to have a jejunal tube placed. Discussion with her mother and patient separately had concluded that they want to proceed forward with jejunal tube placement. I had advised against it since she was able to consume enough oral intake based on her weight documentation. We discussed complications in the past. We discussed that this may create new pain that she has notbeen having in the past couple of weeks. She will likely experienced similar pain to what she had had in the past leading up to the removal of the jejunal tube. Understanding this, patient will be proceeding forward with laparoscopic, possible open jejunal tube placement." -Tube re-placed yesterday at [facility], feeling sore after procedure, sent home after -Wt dropped a little but pt reporting she feels it has been relatively stable despite multiple chart notes and pt report of continued vomiting -Pt reporting she has been trying to follow a liquid diet or oatmeal, boost shake, would tolerate for one day and then the next would vomit, started to experience abd pain -Struggling to eat and dealing with pain -Will sip on water on occasion, will keep PO intake to a point that she is vomiting 08/23/2023 -Routine tube feed follow up -Tube was removed 08/19 d/t ongoing issues with pain and discomfort -Was advised if wt cannot be maintained with PO intake would need to do a G/J tube vs straight J tube -Was removed Wednesday, PO intake has not been great -Getting sick and in pain more since tube removed -The more she is eating, the more pain she is having, can already notice a difference in feeling more tired and more difficulty eating with tube removed 06/07/23 -2 m tube feed follow up, tube has been leaking for ~2 weeks, cannot tolerate feeds, skin is very inflamed, surgeon feels scar tissue and adhesions are present, surgeon feels pt needs a new tube and new site -leaking formula is causing pain and skin breakdown around site -Per MyG msg today, tube leaks daily with burning, was seen 06/03 at [facility] for tube replacement -Per 06/05 network controller note: She states that she is having terrible abdominal pain, redness and swelling of GT site, the GT is leaking around insertion site and seems to be clogged as it is difficult to infuse feeds or push medication through. Pt is very upset and crying. Pt will go to [facility] ED now for evaluation. -Has not been able to tolerate much PO intake -Might be readmitted to [facility] for surgery -Half feeds will leak out from tube -Now has a central port, asking about TPN -Waiting to hear back for surgeon office at [facility], could be re-admitted. 04/05/23 -Initial RD visit -DC ~ 1 week ago -Pt sharing she was on osmolite 1.2 during IP stay at [facility] and [place] Barriers to Learning: None Special Education Needs: None Social Demographics: Lives at home with family Food/Nutrition-Related History Oral Diet Recall: Pt reporting she is unable to tolerate any PO intake, can drink small sips of water. Current Tube Feeding Regimen: N/A Previous Tube Feeding Regimen: Peptamin 1.5 administered via feeding pump for J tube Feed Goal: 4 cartons a day (1000 TV) administered over 12 hrs. (68 g protein, 772 mL water, 1500 kcals) Water flushes 30 mL Q4H (180 mL) PO water intake: 673 mL (23 oz) Adult Energy Intake: Less than 50% of estimated energy requirement for greater than 1 month (severe, social/environmental) chronic illness Home Infusion Company: [facility] Pertinent Medications (current): Current Outpatient Medications Medication Sig Dispense Refill Naloxone HCl 4 MG/0.1ML Nasal Liquid (Narcan Nasal) ADMINISTER 1 SPRAY INTO 1 NOSTRIL FOR SUSPECTEDOPIOID OVERDOSE - SEEK IMMEDIATE MEDICAL ATTENTION. [email or web address] 2 Each 3 Polyethylene Glycol 3350 17 GM/SCOOP Oral Powder [...] 24 hours Remove patch after 12 hours.. (Patient not taking: Reported on 07/23/2023) 30 Patch 0 Acetaminophen 160 MG/5ML Oral Suspension (Tylenol) Administer 31.2 mL into J tube every 8 hours as needed for Pain, Moderate. 472 mL 5 Gabapentin 300 MG Oral Capsule (Neurontin) Take 1 Capsule by mouth in the morning and 1 Capsule at noon and 1 Capsule before bedtime. Promethazine HCl 25 MG Oral Tablet (Phenergan) Take 1 Tablet by mouth every 6 hours as needed for Nausea for up to 120 doses. 120 Tablet 0 Ondansetron 4 MG Oral Tablet Disintegrating (Zofran) Place 1 Tablet on tongue every 8 hours as needed for Nausea. dissolve on tongue. 30 Tablet 2 Azithromycin 250 MG Oral Tablet (Zithromax) Take 1 Tablet by mouth in the morning. 14 Tablet 0 oxyCODONE HCl 5 MG Oral Tablet (Oxy IR) Take 1 Tablet by mouth every 6 hours as needed for severe pian. (No more than 4 doses in 24 hours.). Must last 28 days. 108 Tablet 0 No current facility-administered medications for this visit. Administration method: Feeding tube Current Vitamins/Minerals/Supplements: None Nutrition-Focused Physical Findings Appearance: Deferred, video visit Digestive system: Digestive: Abdominal pain/tenderness, Appetite: poor, Vomiting Enteral Access: J-tube Placed: Will be placed 10/01/23 Nerves and cognition: Awake, alert Skin: Intact Anthropometrics Measurements Height: 62'' measured Weight: 167 lbs measured 09/23/23 ERLIN wt: 166 lbs self-reported Date: 08/23/23 Weight History: Wt Readings from Last 15 Encounters: 09/23/23 76 kg (167 lb 9.6 oz) 09/06/23 74.8 kg (165 lb) 08/27/23 72.8 kg (160 lb 6.4 oz) 08/15/23 75.3 kg (166 lb) 08/08/23 75.3 kg (166 lb) 08/07/23 75 kg (165 lb 6.4 oz) 07/23/23 75.6 kg (166 lb 9.6 oz) 07/18/23 77 kg (169 lb 12.8 oz) 07/16/23 77 kg (169 lb 12.8 oz) 07/10/23 73 kg (161 lb) 07/08/23 74.4 kg (164 lb) 06/27/23 72.5 kg (159 lb 12.8 oz) 06/19/23 73.6 kg (162 lb 3.2 oz) 06/17/23 73.6 kg (162 lb 3.2 oz) 06/02/23 62.6 kg (138 lb) Weight Change: Stable over 3 months Biochemical Data, Medical Tests and Procedures Latest Reference Range & Units 09/07/23 04:32 Potassium 3.5 - 5.1 mmol/L 3.2 (L) Chloride 98 - 107 mmol/L 106 CO2 22 - 32 mmol/L 22 BUN 6 - 20 mg/dL 4 (L) NUTRITION DIAGNOSIS: Inadequate energy intake related to severe gastroparesis as evidenced by worsening abdominal pain, persistent nausea/vomiting with PO intake, and no form of supplemental EN for the last month d/t lack of enteral access. NUTRITION INTERVENTION: Nutrition Justification of Enteral Feeds: Adequate nutrition impossible by diet adjustment and/or oral supplements., Tube feedings required for sufficient nutrients to maintain weight and strength. Nutrition Justification for Enteral Feeding Pump: Jejunostomy tube used for feeding Nutrition Prescription: 25 Kcal/kg Adjusted ideal weight/day (56 kg) = 1400 Kcal/day 1.0-1.2 grams protein/kg Adjusted ideal weight/day = 56-67 grams protein/day Fluid Needs: 25 mL/kg Adjusted ideal weight/ day = 1400 mL/day Tube Feeding Prescription: Peptamin 1.5 administered via feeding pump for J tube Feed Goal: 4 cartons a day (1000 TV) administered over 12 hrs. (68 g protein, 772 mL water, 1500 kcals) Water flushes 180 mL four times a day PO water intake: 673 mL (23 oz) Goals: Patient will maintain weight., Patient will meet protein needs., Patient will meet calorie needs., Patient will receive adequate nutrition., Patient will meet hydration needs., and Proper feeding administration by self or other. Expected Compliance: Expect compliance with recommended home enteral nutrition therapy. Recommendations to Ordering Provider: Re-start enteral nutrition NUTRITION MONITORING AND EVALUATION: Monitor patient weight Monitor patient EN and PO intake Monitor patient nutr related labs Monitor patient BMI Plan for Return Appointment: 6 week Minutes of MNT: 15 Kaity Yap RDN NUTRITION & WEIGHT MANAGEMENT, [facility] documented in this encounter Plan of Treatment Upcoming Encounters Date Type Department Care Team (Late st Contact Info) Description 12/08/2023 5:20 PM EDT Office Visit [facility] [address] [phone] Kinjal Reynoso PA-C [address] [address] Health Maintenance Due Date Last Done Comments [...] this encounter Medical Devices Implanted Type Area Sugar Mill Worker Device Identifier Shelf Expiration Date Model / Serial / Lot Port Implant W/8f Poly Cath - [id number] Implanted:Qty : 1 on 05/18/2023 by Juan Jose Connell, at OR [facility] Right: Chest CR BARD : PERIPHERAL VASCULAR [id number] 11/18/2024 [id number] / / [id number] documented as of this encounter Visit Diagnoses Diagnosis Gastroparesis- Primary Jejunostomy tube present (HCC) Status of other artificial opening of gastrointestinal tract Class 1 obesity due to excess calories without serious comorbidity with body mass index (BMI) of 30.0 to 30.9 in adult documented in this encounter Advance Directives Latest Code Status on File Code Status Date Activated Date Inactivated Comments Full Code 2023 5:38 AM 09/07/2023 6:53 PM This order reflects the patients wishes and were consensually agreed upon. Question Answer Comments Discussion of Advance Directives occurred with: Patient Does the patient have a Living Will? No Does the patient have Health Care Power of Rn Maternity? No Code Status History Code Status Date [...] Advance Directives occurred with: Patient Care Teams Psychiatric Mental Health Nurse Relationship Specialty Start Date End Date Kinjal Reynoso PA-C [address] [address] PCP - General Physician Mechanical Process Engineer 11/05/22 documented as of this encounter
--- OUTSIDE RECORDS SUMMARY | 2024-01-01 09:15 | External Medical Summary | Summary of Care ---
Author Name Unknown Organization [facility] Address [address] [place] [address] Phone [phone] Care Team Providers Care Motel Front Desk Attendant Name Role Phone Kinjal Reynoso PA-C Primary Care Provider [phone] Reason for Visit * Reason Onset Date Comments Appointment 09/28/2023 Encounter Details Date Type Department Care Team (Late st Contact Info) Description 09/28/2023 Telephone Nutrition & Weight Management, [facility] [address] [place] [address] Kaity Yap RDN [address] [place] [address] Appointment Allergies Active Allergy Reactions Criticality Noted [...] as of this encounter (statuses as of 09/28/2023) Medications Medication Sig Dispensed Refills Start Date End Date Status Naloxone HCl 4 MG/0.1ML Nasal Liquid (Narcan Nasal)Indications:Ch ronic pelvic pain in female,MEDICATION USE AGREEMENT,Chronic abdominal pain ADMINISTER 1 SPRAY INTO 1 NOSTRIL FOR SUSPECTED OPIOID OVERDOSE - SEEK IMMEDIATE MEDICAL ATTENTION. [email or web address] 2 Each 3 03/31/2023 Active Polyethylene Glycol [...] as of this encounter (statuses as of 09/28/2023) Active Problems Problem Noted Date Diagnosed Date [...] as of this encounter (statuses as of 09/28/2023) Resolved Problems Problem Noted Date Diagnosed Date [...] as of this encounter (statuses as of 09/28/2023) Immunizations Name Administration Dates Next Due DTaP [...] encounter Miscellaneous Notes * Telephone Encounter - Kaity Yap RDN [...] Description 12/08/2023 5:20 PM EDT [facility] [phone] Kinjal Reynoso PA-C [address] [facility] [place] [phone] Health Maintenance Due Date Last Done Comments [...] this encounter Medical Devices Implanted Type Area Intervention Analyst Device Identifier Shelf Expiration Date Model / Serial / Lot Port Implant W/8f Poly Cath - [id number] Implanted:Qty : 1 on 05/18/2023 by Juan Jose Connell, DO at OR [facility] Right: Chest CR BARD : PERIPHERAL VASCULAR [id number] 11/18/2024 [id number] / / [id number] documented as of this encounter Advance Directives [...] the patient have Health Care Power of Fish Hatchery Worker? No Code Status History Code Status Date [...] Advance Directives occurred with: Patient Care Teams Motel Front Desk Attendant Relationship Specialty Start Date End Date Kinjal Reynoso PA-C [address] [address] PCP - General Physician Doctorate Of Chiropractic 11/05/22 documented as of this encounter
--- OUTSIDE RECORDS SUMMARY | 2024-01-01 09:15 | External Medical Summary ---
Author Name Unknown Address Unknown Organization K01:[facility] – [place] - [address] [address] Laboratory Report Ordering Provider Test Date Status ALBA BUTLER 10/25/2023 15:23:46 Final Observation Date Value Abnormality Reference (Units ) Status TSH 10/25/2023 15:23:46 0.45 0.27-4.20 (uIU/mL) Final Performing Location [facility] – [place] - [address] [place] [address]
--- OUTSIDE RECORDS SUMMARY | 2024-01-01 09:15 | External Medical Summary | Summary of Care ---
Author Name Unknown Organization [facility] Address [address] [place] [address] Phone [phone] Care Team Providers Care Center Line Cutter Operator Name Role Phone Kinjal Reynoso PA-C Primary Care Provider [phone] Reason for Visit * Reason Onset Date Comments Home Tube Feeding 09/29/2023 Encounter Details Date Type Department Care Team (Late st Contact Info) Description 09/29/2023 Telephone Nutrition & Weight Management, [facility] [address] [place] [address] Kaity Yap RDN [address] [place] [address] Home Tube Feeding Allergies Active Allergy Reactions [...] OPIOID OVERDOSE - SEEK IMMEDIATE MEDICAL ATTENTION. [email or web address] 2 Each 3 03/31/2023 Active Polyethylene Glycol [...] 28 days. 108 Tablet 0 09/23/2023 Active Peptamen AF Oral Liquid Administer 1,000 mL over 12 hours into J tube 4 times a day. 62793 mL 09/30/2023 Active Enteral Feeding Piston Syringe Use as directed. 30 Each 09/30/2023 Active documented as of this encounter (statuses [...] encounter Miscellaneous Notes * Addendum Note - Cee Santizo PA-C - 09/30/2023 12:05 PM EDTAddended by: CEE SANTIZO on: 09/30/2023 12:05 PM Modules accepted: Orders * Addendum Note - Baldemar Richard LPN - 09/30/2023 10:52 AM EDTAddended by: BALDEMAR RICHARD on: 09/30/2023 10:52 AM Modules accepted: Orders * Telephone Encounter - Kaity Yap RDN - 09/29/2023 3:36 PM EDT Pt seen today to re-initiate enteral nutrition. J-tube re-placed yesterday 09/28/23 at [facility]. Please pend the below for provider to approve and send to [facility]. Tube Feeding Prescription: Peptamin 1.5 administered via [...] Description 12/08/2023 5:20 PM EDT Office Visit [facility] [address] [phone] Kinjal Reynoso PA-C [address] [address] 12/17/2023 2:30 PM EDT Telemedicine Nutrition & Weight Management, [facility] [address] [place] [address] Kaity Yap RDN [address] [place] [place] [address] Health Maintenance Due Date Last Done Comments [...] this encounter Medical Devices Implanted Type Area Family Practice Medical Doctor Device Identifier Shelf Expiration Date Model / Serial / Lot Port Implant W/8f Poly Cath - [id number] Implanted:Qty : 1 on 05/18/2023 by Juan Jose Connell, at OR [facility] Right: Chest CR BARD : PERIPHERAL VASCULAR [id number] 11/18/2024 [id number] / / [id number] documented as of this encounter Advance Directives [...] the patient have Health Care Power of Transportation Director? No Code Status History Code Status [...] Advance Directives occurred with: Patient Care Teams Center Line Cutter Operator Relationship Specialty Start Date End Date Kinjal Reynoso PA-C [address] [address] PCP - General Physician Building Insulation Installer 11/05/22 documented as of this encounter
--- OUTSIDE RECORDS SUMMARY | 2024-01-01 09:15 | External Medical Summary | Summary of Care ---
Author Name Unknown Organization [facility] Address [address] [place] [address] Phone [phone] Care Team Providers Care Human Resources Hr Generalist Name Role Phone Kinjal Reynoso PA-C Primary Care Provider [phone] Encounter Details Date Type Department Care Team (Late st Contact Info) Description 09/28/2023 Telephone Gastroenterology, [facility] [address] [place] [address] Services, Scheduling [address] [place] [address] Allergies Active Allergy Reactions Criticality Noted Date [...] OPIOID OVERDOSE - SEEK IMMEDIATE MEDICAL ATTENTION. [email or web address] 2 Each 3 03/31/2023 Active Polyethylene Glycol [...] Encounter - Kaity Yap RDN - 09/28/2023 4:36 PM EDT Will review pt chart and make appropriate recommendations for enteral feeds and supplies for GHIS. * Telephone Encounter - Shelby Olmedo OSA - 09/28/2023 3:05 PM EDT Patient got her J-tube placed again today and does not have any material to give feedings. Patient is asking that we place orders for her. Please advise. documented in this encounter Plan of Treatment Upcoming Encounters Date Type Department Care Team (Late st Contact Info) Description 12/08/2023 5:20 PM EDT [facility] [place] [address] Kinjal Reynoso PA-C [address] [place] [address] Health Maintenance Due Date Last Done Comments GARDASIL-HPV IMMUNIZATION SE KIM (1 - 3-dose series) 2016 COVID-19 Vaccine (1 - 2022-2 4 season) 2023 Influenza Vaccine [...] this encounter Medical Devices Implanted Type Area Field Marketing Associate Device Identifier Shelf Expiration Date Model / Serial / Lot Port Implant W/8f Poly Cath - [id number] Implanted:Qty : 1 on 05/18/2023 by Juan Jose Connell, at OR [facility] Right: Chest CR BARD : PERIPHERAL VASCULAR [id number] 11/18/2024 [id number] / / [id number] documented as of this encounter Advance Directives [...] the patient have Health Care Power of Job Cost Estimator? No Code Status History Code Status Date [...] Advance Directives occurred with: Patient Care Teams Human Resources Hr Generalist Relationship Specialty Start Date End Date Kinjal Reynoso PA-C [address] [place] [address] PCP - General Physician Video Game Technician 11/05/22 documented as of this encounter
--- OUTSIDE RECORDS SUMMARY | 2024-01-01 09:15 | External Medical Summary | Summary of Care ---
Author Name Unknown Organization [facility] Address [address] [place] [address] Phone [phone] Care Team Providers Care Drying Machine Receiver Name Role Phone Kinjal Reynoso PA-C Primary Care Provider [phone] Reason for Visit * Reason Onset Date Comments Med Request 09/29/2023 Encounter Details Date Type Department Care Team (Late st Contact Info) Description 09/29/2023 Telephone [facility] [address] [facility] [place] [address] Kinjal Reynoso PA-C [address] [facility] [place] [address] Med Request Allergies Active Allergy [...] as of this encounter (statuses as of 10/05/2023) Medications Medication Sig Dispensed Refills Start Date End Date Status Naloxone HCl 4 MG/0.1ML Nasal Liquid (Narcan Nasal)Indications:Ch ronic pelvic pain in female,MEDICATION USE AGREEMENT,Chronic abdominal pain ADMINISTER 1 SPRAY INTO 1 NOSTRIL FOR SUSPECTED OPIOID OVERDOSE - SEEK IMMEDIATE MEDICAL ATTENTION. [email or web address] 2 Each 3 03/31/2023 Active Polyethylene Glycol [...] days. 108 Tablet 0 09/23/2023 Active Peptamen 1.5 Donald Oral Liquid Administer 4 containers (1000mL) over 12 hours daily as directed, through J-tube via feeding pump. 78348 mL 11 10/05/2023 Active documented as of this encounter (statuses as of 10/05/2023) Active Problems Problem Noted Date Diagnosed Date [...] as of this encounter (statuses as of 10/05/2023) Resolved Problems Problem Noted Date Diagnosed Date [...] as of this encounter (statuses as of 10/05/2023) Immunizations Name Administration Dates Next Due DTaP [...] Description 12/08/2023 5:20 PM EDT Office Visit Family Practice, [place] [address] [phone] Kinjal Reynoso PA-C [address] [place] [address] 12/17/2023 2:30 PM EDT Telemedicine Nutrition & Weight Management, [address] [place] [address] Kaity Yap RDN [address] [place] [address] Health Maintenance Due Date Last Done Comments [...] this encounter Medical Devices Implanted Type Area Household Appliance Assembler Device Identifier Shelf Expiration Date Model / Serial / Lot Port Implant W/8f Poly Cath - [id number] Implanted:Qty : 1 on 05/18/2023 by Juan Jose Connell, at OR [facility] Right: Chest CR BARD : PERIPHERAL VASCULAR [id number] 11/18/2024 [id number] / / [id number] documented as of this encounter Advance Directives [...] the patient have Health Care Power of Railway Signal Electrician? No Code Status History Code Status Date [...] Advance Directives occurred with: Patient Care Teams Drying Machine Receiver Relationship Specialty Start Date End Date Kinjal Reynoso PA-C [address] [place] [address] PCP - General Physician Welder Journeyman 11/05/22 documented as of this encounter
--- OUTSIDE RECORDS SUMMARY | 2024-01-01 09:15 | External Medical Summary | Summary of Care ---
Author Name Unknown Organization [facility] Address [address] [place] [address] Phone [phone] Care Team Providers Care Construction Safety Manager Name Role Phone Kinjal Reynoso PA-C Primary Care Provider [phone] Reason for Visit * Reason Comments Medication Refill Encounter Details Date Type Department Care Team (Late st Contact Info) Description 10/20/2023 Refill [facility] [address] [facility] [place] [address] Kinjal Reynoso PA-C [address] [place] [address] Gastroparesis; Chronic pelvic pain in female; [...] as of this encounter (statuses as of 10/21/2023) Medications Medication Sig Dispensed Refills Start Date End Date Status Naloxone HCl 4 MG/0.1ML Nasal Liquid (Narcan Nasal)Indications:C hronic pelvic pain in female,MEDICATION USE AGREEMENT,Chronic abdominal pain ADMINISTER 1 SPRAY INTO 1 NOSTRIL FOR SUSPECTED OPIOID OVERDOSE - SEEK IMMEDIATE MEDICAL ATTENTION. [email or web address] 2 Each 3 03/31/2023 Active Polyethylene Glycol [...] on 07/23/2023 Acetaminophen 160 MG/5ML Oral Suspension (Tylenol)Indication s:Chronic [...] 09/13/2023 Active Azithromycin 250 MG Oral Tablet (Zithromax)Indicati ons:Gastroparesis Take 1 Tablet by mouth in the morning. 14 Tablet 0 09/23/2023 Active Peptamen 1.5 Donald Oral Liquid Administer 4 containers (1000mL) over 12 hours daily as directed, through J-tube via feeding pump. 74988 mL 11 10/05/2023 Active Peptamen AF Oral Liquid Administer 1,000 mL over 12 hours into J tube 4 times a day. [address]22 mL 09/30/2023 Active Enteral Feeding Piston Syringe Use as directed. 30 Each 09/30/2023 Active oxyCODONE HCl 5 MG Oral Tablet (Oxy IR)Indications:Fransisco roparesis,Chronic pelvic pain in female,Malfunction of jejunostomy tube (HCC) Take 1 Tablet by mouth every 6 hours as needed for severe pian. (No more than 4 doses in 24 hours.). Must last 28 days. 108 Tablet 0 10/21/2023 Active oxyCODONE HCl 5 MG Oral Tablet (Oxy IR)Indications:Fransisco roparesis,Chronic pelvic pain in female,Malfunction of jejunostomy tube (HCC) Take 1 Tablet by mouth every 6 hours as needed for severe pian. (No more than 4 doses in 24 hours.). Must last 28 days. 108 Tablet 0 09/23/2023 4 Discontinu ed(Refill) documented as of this encounter (statuses as of 10/21/2023) Active Problems Problem Noted Date Diagnosed Date [...] as of this encounter (statuses as of 10/21/2023) Resolved Problems Problem Noted Date Diagnosed Date [...] as of this encounter (statuses as of 10/21/2023) Immunizations Name Administration Dates Next Due DTaP [...] Telephone Encounter - Kinjal Reynoso PA-C - 10/21/2023 3:35 PM EDTSigned Prescriptions: Disp Refills oxyCODONE HCl 5 MG Oral Tablet (Oxy IR) 108 Ta*0 Sig: Take 1 Tablet by mouth every 6 hours as needed for severe pian. (No more than 4 doses in 24 hours.). Must last 28 days. Authorizing Provider: KINJAL REYNOSO * Telephone Encounter - Alia Wellington [facility] - 10/21/2023 10:54 AM EDT Pending Prescriptions: Disp Refills oxyCODONE HCl 5 MG Oral Tablet (Oxy IR) 108 Ta*0 Sig: Take 1 Tablet by mouth every 6 hours as needed for severe pian. (No more than 4 doses in 24 hours.). Must last 28 days. * Telephone Encounter - Alia Wellington [facility] - 10/21/2023 10:52 AM EDT I have reviewed the patients controlled substance dispensing history in the Prescription Drug Monitoring Program in compliance with the [facility] regulations before prescribing a controlled substance. PDMP checked on 10/21/2023. Pending Prescriptions: Disp Refills oxyCODONE HCl 5 MG Oral Tablet (Oxy IR) 108 Ta*0 Sig: Take 1 Tablet by mouth every 6 hours as needed for severe pian. (No more than 4 doses in 24 hours.). Must last 28 days. Last Visit: 09/23/2023 (in office), 09/10/2022 (telemedicine) Next Visit: 12/24/2023 Date medication was last filled: 09/23/23 Date medication is due for refill: 10/21/23 Pharmacy: [facility] Is this request for a [...] request. Please approve if appropriate. Thank you, Alia Wellington PharmD, MARLENI Clinical Pharmacist [facility] ([facility]) 10/21/23 10:52 AM [phone] documented in this encounter Plan of Treatment Upcoming Encounters Date Type Department Care Team (Late st Contact Info) Description 10/25/2023 2:40 PM EDT Office Visit [facility] [address] [phone] Kinjal Reynoso PA-C [address] [address] 11/12/2023 8:00 AM EDT Telemedicine Nutrition & Weight Management, [facility] [address] [place] [address] [address] Kaity Yap RDN [address] [place] [address] 12/24/2023 11:00 AM EDT Office Visit [facility] [address] [place] [phone] Kinjal Reynoso PA-C [address] [place] [address] Health Maintenance Due Date Last Done Comments [...] this encounter Medical Devices Implanted Type Area Ventilating Expert Device Identifier Shelf Expiration Date Model / Serial / Lot Port Implant W/8f Poly Cath - [id number] Implanted:Qty : 1 on 05/18/2023 by Juan Jose Connell DO at OR [facility] Right: Chest CR BARD : PERIPHERAL VASCULAR [id number] 11/18/2024 [id number] / / [id number] documented as of this encounter Visit Diagnoses [...] the patient have Health Care Power of Public Address Servicer? No Code Status History Code Status Date [...] Advance Directives occurred with: Patient Care Teams Construction Safety Manager Relationship Specialty Start Date End Date Kinjal Reynoso PA-C [address] [place] [address] PCP - General Physician Grants Administrator 11/05/22 documented as of this encounter
--- OUTSIDE RECORDS SUMMARY | 2024-01-01 09:15 | External Medical Summary ---
Author Name Unknown Address Unknown Organization K01:[facility] - [address] [facility] [address] Laboratory Report Ordering Provider Test Date Status ALBA BUTLER 10/25/2023 15:23:46 Final Observation Date Value Abnormality Reference (Units ) Status WBC, Total 10/25/2023 15:23:46 5.43 4.00-10.80 (K/uL) Final RBC 10/25/2023 15:23:46 4.31 3.85-5.15 (M/uL) Final Hemoglobin 10/25/2023 15:23:46 13.4 12.0-15.3 (g/dL) Final HCT 10/25/2023 15:23:46 38.6 36.0-45.2 (%) Final MCV 10/25/2023 15:23:46 89.6 81.5-97.5 (fL) Final MCH 10/25/2023 15:23:46 31.1 27.0-34.0 (pg) Final MCHC 10/25/2023 15:23:46 34.7 32.0-36.0 (g/dL) Final RDW 10/25/2023 15:23:46 12.1 11.5-15.5 (%) Final Platelets 10/25/2023 15:23:46 272 140-400 (K/uL) Final MPV 10/25/2023 15:23:46 11.0 6.6-11.1 (fL) Final Nucleated erythrocytes/100 leukocytes [Ratio] in Blood by Automated count 10/25/2023 15:23:46 0 <=0 (/100 WBCs) Final Performing Location [facility] - [address] [place] [address]
--- OUTSIDE RECORDS SUMMARY | 2024-01-01 09:15 | External Medical Summary | Summary of Care ---
Author Name Unknown Organization [facility] Address [address] [place] [address] Phone [phone] Care Team Providers Care Tensioning Machine Operator Name Role Phone Kinjal Reynoso PA-C Primary Care Provider [phone] Reason for Visit * Reason Onset Date Comments Advice 07/13/2023 Encounter Details Date Type Department Care Team (Late st Contact Info) Description 07/13/2023 Telephone [facility] [address] [facility] [place] [phone] Kinjal Reynoso PA-C [address] [facility] [place] [address] Advice Allergies Active Allergy [...] as of this encounter (statuses as of 10/12/2023) Medications Medication Sig Dispensed Refills Start Date End Date Status Naloxone HCl 4 MG/0.1ML Nasal Liquid (Narcan Nasal)Indications:C hronic pelvic pain in female,MEDICATION USE AGREEMENT,Chronic abdominal pain ADMINISTER 1 SPRAY INTO 1 NOSTRIL FOR SUSPECTED OPIOID OVERDOSE - SEEK IMMEDIATE MEDICAL ATTENTION. [email or web address] 2 Each 3 03/31/2023 Active Polyethylene Glycol [...] Additional Information Patient not taking.Reported on 07/23/2023 documented as of this encounter (statuses as of 10/12/2023) Active Problems Problem Noted Date Diagnosed Date [...] as of this encounter (statuses as of 10/12/2023) Resolved Problems Problem Noted Date Diagnosed Date [...] as of this encounter (statuses as of 10/12/2023) Immunizations Name Administration Dates Next Due DTaP [...] Miscellaneous Notes * Telephone Encounter - Vicki Robertson LPN - 07/13/2023 11:02 AM EST Patient calling in stating that she has 3 stitches around the J tube holding it in place, She had the J tube replaced on 07/08/2023 and they were unable to inflate the balloon the whole way as she stated that they could not figure out her intestines. The right suture looks like is hanging more than the others, there is yellow drainage from that area, but she is not sure if it's coming from around the J tube hole or from the stitch. She is not sure if the suture is infected. She believes that thesuture looks more red than the others. Called [facility] office and spoke to Tanja, she spoke to Kinjal-- ideally she needs to contact surgeon who manages her J tube. She stated that her surgeon did not place this new J Tube as she went to [facility] ER and they admitted her and replaced the J tube and is not sure if he will do anything. She does have an upcoming appointment with him on 07/16 and she has an upcoming appointment with Kinjal Reynoso PA-C on 07/15. I advised that we could place her on the nurse schedule and have Kinjal look at the area but not sure if there is anything that she can really do for her. She did not want to schedule nurse appointment. Advised her to send pictures of the J Tube so Kinjal could give further advise on what she should do. Please keep eye out for MyG message with picture of J tube and advise * Telephone Encounter - Jesse Cain OSA - 07/13/2023 10:58 AM EST Reason for patient's call: Having some complication with J Tube stitches please advise Caller was transferred to Vicki at the nurse line. documented in this encounter Plan of Treatment Upcoming Encounters Date Type Department Care Team (Late st Contact Info) Description 12/08/2023 5:20 PM EDT Office Visit [facility] [place] [address] [phone] Kinjal Reynoso PA-C [address] [address] 12/17/2023 2:30 PM EDT Telemedicine Nutrition & Weight Management, [facility] [address] [place] [address] Kaity Yap RDN [address] [place] [address] Health Maintenance Due Date Last Done Comments [...] this encounter Medical Devices Implanted Type Area Baked And Graphite Inspector Device Identifier Shelf Expiration Date Model / Serial / Lot Port Implant W/8f Poly Cath - [id number] Implanted:Qty : 1 on 05/18/2023 by Juan Jose Connell, at OR [facility] Right: Chest CR BARD : PERIPHERAL VASCULAR [id number] 11/18/2024 [id number] / / [id number] documented as of this encounter Advance Directives [...] the patient have Health Care Power of Boarding House Manager? No Code Status History Code Status [...] Advance Directives occurred with: Patient Care Teams Tensioning Machine Operator Relationship Specialty Start Date End Date Kinjal Reynoso PA-C [address] [address] PCP - General Physician Barman 11/05/22 documented as of this encounter
--- OUTSIDE RECORDS SUMMARY | 2024-01-01 09:15 | External Medical Summary ---
Author Name Unknown Address Unknown Organization K01:[facility] - [address] [facility] [address] Laboratory Report Ordering Provider Test Date Status ALBA BUTLER 10/25/2023 15:23:46 Final Observation Date Value Abnormality Reference (Units ) Status BUN 10/25/2023 15:23:46 9 6-20 (mg/dL) Final Creatinine 10/25/2023 15:23:46 0.7 0.5-1.0 (mg/dL) Final Glomerular filtration rate/1.73 sq M.predicted [Volume Rate/Area] in Serum, Plasma or Blood by Creatinine-based formula (CKD-EPI) 10/25/2023 15:23:46 >90 >=60 (mL/min) Final eGFR is calculated based on the CKD-EPI 2020 equation Sodium 10/25/2023 15:23:46 138 135-146 (m mol/L) Final Potassium 10/25/2023 15:23:46 4.3 3.5-5.1 (m mol/L) Final Cl 10/25/2023 15:23:46 104 98-107 (mm ol/L) Final CO2 10/25/2023 15:23:46 23 22-32 (mmo l/L) Final Anion gap 10/25/2023 15:23:46 11 7-15 (mmol /L) Final Glucose 10/25/2023 15:23:46 98 70-120 (mg /dL) Final Albumin 10/25/2023 15:23:46 4.5 3.8-5.0 (g /dL) Final AST (Aspartate aminotransferase) 10/25/2023 15:23:46 17 10-35 (U/L) Final Alk Phos 10/25/2023 15:23:46 76 35-130 (U/ L) Final Bilirubin, Total 10/25/2023 15:23:46 0.2 <=1 .2 (mg/dL) Final Calcium 10/25/2023 15:23:46 9.4 8.4-10.2 ( mg/dL) Final Protein 10/25/2023 15:23:46 6.8 6.0-8.3 (g /dL) Final ALT (Alanine aminotransferase) 10/25/2023 15:23:46 15 10-35 (U/L) Final Performing Location [facility] - [address] [facility] [address]
--- OUTSIDE RECORDS SUMMARY | 2024-01-01 09:15 | External Medical Summary | Summary of Care ---
Author Name Unknown Organization [facility] Address [address] [place] [address] Phone [phone] Care Team Providers Care Secretary Bookkeeper Name Role Phone Kinjal Reynoso PA-C Primary Care Provider [phone] Reason for Visit * Reason Onset Date Comments Home Tube Feeding 09/29/2023 Encounter Details Date Type Department Care Team (Late st Contact Info) Description 09/29/2023 Telephone Nutrition & Weight Management, [facility] [address] [place] [address] Kaity Yap RDN [address] [facility] [place] [address] Home Tube Feeding Allergies Active Allergy Reactions [...] OPIOID OVERDOSE - SEEK IMMEDIATE MEDICAL ATTENTION. [email or web address] 2 Each 3 03/31/2023 Active Polyethylene Glycol [...] enteral nutrition. J-tube re-placed yesterday 09/28/23 at [facility]. Please pend the below for provider to approve and send to [facility]. Tube Feeding Prescription: Peptamin 1.5 administered via [...] Description 12/08/2023 5:20 PM EDT Office Visit [facility] [place] [address] [address] Kinjal Reynoso PA-C [address] [phone] Health Maintenance Due Date Last Done Comments [...] this encounter Medical Devices Implanted Type Area Pricing Supervisor Device Identifier Shelf Expiration Date Model / Serial / Lot Port Implant W/8f Poly Cath - [id number] Implanted:Qty : 1 on 05/18/2023 by Juan Jose Connell, DO at OR [facility] Right: Chest CR BARD : PERIPHERAL VASCULAR [id number] 11/18/2024 [id number] / / [id number] documented as of this encounter Advance Directives [...] the patient have Health Care Power of Steel Grinder? No Code Status History Code Status Date [...] Advance Directives occurred with: Patient Care Teams Secretary Bookkeeper Relationship Specialty Start Date End Date Kinjal Reynoso PA-C [address] [address] PCP - General Physician Vacuum Plastic Forming Machine Operator 11/05/22 documented as of this encounter
--- OUTSIDE RECORDS SUMMARY | 2024-01-01 09:15 | External Medical Summary | Summary of Care ---
Author Name Unknown Organization [facility] Address [address] [place] [address] Phone [phone] Care Team Providers Care Gas Generator Operator Name Role Phone Kinjal Reynoso PA-C Primary Care Provider [phone] Reason for Visit * Reason Comments Other Pt feeding tubing is stuck on the J tube site. Just needs disconnected. * Auth/Cert Specialty Diagnoses / Procedures Referred By Carmen t Referred To Contact [facility] [address] [place] [address] Phone: [phone] Emergency Medicine [facility] [address] [place] [address] Referral ID Status Reason Start Date Expiration Date Visits Re quested Visits Authorized [id number] Encounter Details Date Type Department Care Team ([facility] Contact Info) Description 10/17/2023 7:59 PM EDT - 10/17/2023 9:13 PM EDT Emergency [facility] Emergency Department ([facility]) [address] [place], [place] [id number] Sarah Lomeli, DO [address] [place], [place] [phone] Encounter for care related to feeding tube (Primary Dx) Discharge Disposition: Home - [...] as of this encounter (statuses as of 10/18/2023) Medications Medication Sig Dispensed Refills Start Date End Date Status Naloxone HCl 4 MG/0.1ML Nasal Liquid (Narcan Nasal)Indications:Ch ronic pelvic pain in female,MEDICATION USE AGREEMENT,Chronic abdominal pain ADMINISTER 1 SPRAY INTO 1 NOSTRIL FOR SUSPECTED OPIOID OVERDOSE - SEEK IMMEDIATE MEDICAL ATTENTION. [email or web address] 2 Each 3 03/31/2023 Active Polyethylene Glycol [...] as directed, through J-tube via feeding pump. 58596 mL 11 10/05/2023 Active Peptamen AF Oral Liquid Administer 1,000 mL over 12 hours into J tube 4 times a day. 21811 mL 11 09/30/2023 Active Enteral Feeding Piston Syringe Use as directed. 30 Each 09/30/2023 Active documented as of this encounter (statuses as of 10/18/2023) Active Problems Problem Noted Date Diagnosed Date [...] as of this encounter (statuses as of 10/18/2023) Resolved Problems Problem Noted Date Diagnosed Date [...] as of this encounter (statuses as of 10/18/2023) Immunizations Name Administration Dates Next Due DTaP [...] Sign Reading Time Taken Comments Blood Pressure 124/70 10/17/2023 7:57 PM EDT Pulse 94 10/17/2023 7:57 PM EDT Temperature 36.2 C (97.2 F) 10/17/2023 7:55 PM ED T Respiratory Rate 17 10/17/2023 7:57 PM EDT Oxygen Saturation 100% 10/17/2023 7:57 PM EDT Inhaled Oxygen Concentration - - Weight 77.3 kg (170 lb 6.4 oz) 10/17/2023 7:55 P M EDT Height 157.5 cm (5' 2") 10/17/2023 7:55 PM EDT Body Mass Index 31.17 10/17/2023 7:55 PM EDT documented in this [...] as of this encounter ED Notes * Sarah Lomeli, - 10/17/2023 8:49 PM EDT HISTORY OF PRESENT ILLNESS Anirudh CuevaskarishmaLoc is a 23 year old female who presents to the ED for evaluation of Other (Pt feeding tubing is stuck on the J tube site. Just needs disconnected.). The patient was seen at 10/17/232046. Patient is a 23 y/o female who presents with a chief complaint of J tube problem. She has a past medical history of GERD, chronic abdominal pain, gastroparesis, endometriosis, anxiety. The patient has a J tube and it was stuck to the port, couldn't loosen it so came in for evaluation. No vomiting or nausea. No pain. History provided by: patient computerized mill recorder used: No Review of Systems Constitutional: Positive for activity change (J tube stuck to tube port). Negative for fatigue and fever. Gastrointestinal: Negative for abdominal pain, nausea and vomiting. The patient's allergies, past history, and medications were reviewed. PHYSICAL EXAM Initial Vitals (see all): BP 124/70 | Pulse 94 | Resp 17 | Temp 97.2 | O2 100 %Weight 77.29 kg | Height 157.5 cm | BMI 31.17 kg/m2 Initial Pain Assessment (see all): 0 (no pain)/10 ([facility] Adult Scale 0-10) Physical Exam Abdominal: Comments: J tube is well in appearance, no redness or tenderness. PROCEDURES AND TREATMENTS ED Orders | ED Results MEDICAL DECISION MAKING Nursing notes and vital signs were reviewed. Patient is a 23-year-old female who presents a chief complaint of J-tube malfunction. States that her J-tube was stuck to the port and she was screwed onto tight and she did help disconnecting it. Our nurse was able to just connected and she was discharged home. The patient has no abdominal tenderness and J-tube site is well in appearance. Clinical Impressions Encounter for care related to feeding tube Disposition Discharged. The patient's condition at disposition was: stable. Sarah Lomeli * Meliton Mendenhall RN - 10/17/2023 7:55 PM EDT Pt here with her feed tubing stuck to the J tube site in the R side of abdomen. Pt states that she tried to use pliers and rubbing alcohol to loosen the site and was unsuccessful. Has no other acute complaints. documented in this encounter Miscellaneous Notes * ED Master Steam Yacht Note - Zaida Bolaños RN - 10/17/2023 8:54 PM EDT Discharge instructions reviewed with patient who verbalized understanding. Patient to follow up with PCP and return to the ED for new or worsening symptoms. Patient ambulated from the unit with a strong and steady gait with all belongings. * Pt Handout (on AVS) - Sarah Lomeli DO - 10/17/2023 8:49 PM EDT [address] Discharge Instructions: Flushing Your Feeding Tube You are going home with a feeding tube in place. One of the things you must do is flush your tube to keep it from becoming clogged. You will flush your tube with warm water after each feeding, and before and after giving yourself any medicines. You were shown how to flush and care for your tube in the hospital. This sheet helps you remember the steps when you are at home. Ask for phone numbers to call if you need help. Healthcare provider phone number: Home health nurse phone number: [employer] company phone number: Gather your supplies Wash your hands thoroughly with mild soap and clean, running water. Or use a hand bonding machine tender that contains 60% alcohol. Here are the supplies you will need: 50 mL (cc) syringe or larger Bowl of warm water Medical tape Flushing a tube for continuous feeding Flush the feeding tube with warm water and a clean syringe. Do this before the first daily feeding,after the last daily feeding, and at other times as instructed. Follow these steps: Put the tip of the syringe in the water. Draw up the advised amount of water. Turn off the pump. Not all tubes have clamps. Close the clamp on the feeding bag tubing if there is one. Remove the tubing from the port. Put the tip of the syringe in the feeding port. Push the plunger down slowly. Use an even, gentle push. Let the water run through the feeding tube. Start your feeding or close the cap on the feeding port. Tape the tube to your skin with medical tape. Flushing a tube for single or special (bolus) feedings Depending on your healthcare provider's instructions, flush the feeding tube before and after each feeding, in between each medicine, and after medicines. Use a clean syringe and warm water. Follow these steps: Fill a clean bowl with warm water. Put the tip of the syringe in the water. Draw up ___ mL (cc) of water. Follow your healthcare provider's specific instructions on how much water to use. The amount depends on your age, health condition, and your situation. Open the cap on the feeding port. Put the tip of the syringe in the feeding port. Push down on the plunger slowly. Use an even, gentle push. Let the water run through the tube. Close the cap. Tape the tube to your skin with medical tape. Call 911 Call 911 if any of these occur: You are choking You have a large amount of bloody or coffee-colored drainage through the tube You see a small amount of bloody or coffee-colored drainage through the tube. When to call your healthcare provider Call your healthcare provider right away if you have any of the following: Trouble breathing during feeding, flushing, or giving medicine Tube that can?t be unclogged Tube that falls out or trouble telling if the tube is in your stomach Tube that is cracked or breaking down Diarrhea that lasts for more than 3 loose stools Constipation that lasts more than 48 hours Upset stomach or vomiting Redness, warmth, or soreness in the skin around the tube Sudden weight loss or gain (more than 2 pounds in 24 hours) Bloated or tight belly Fever of 100.4F (38C) or higher, or as directed by your provider Chills Last Reviewed Date: 11/19/202019999371-9917 The [employer]. All rights reserved. This information is not intended as a substitute for professional medical care. Always follow your healthcare professional's instructions. * ED Master Steam Yacht Note - Zaida Bolaños RN - 10/17/2023 8:37 PM EDT Patient presents to the ED for feeding tube issue. Per patient she is unable to connect the feedingtube from her j-tube port. Patient states that she tried pliers at home along with alcohol swabs and was unsuccessful. Patient denies pain or other issues. Attempted to disconnect feeding tube from j-tube and was unsuccessful. documented in this encounter Plan of Treatment Upcoming Encounters Date Type Department Care Team (Late st Contact Info) Description 11/12/2023 8:00 AM EDT Telemedicine Nutrition & Weight Management, [facility] [address] [address] Kaity Yap RDN [address] [place] [address] 12/08/2023 5:20 PM EDT Office Visit [address] [place] [phone] Kinjal Reynoso PA-C [address] [phone] Health Maintenance Due Date Last Done Comments [...] this encounter Medical Devices Implanted Type Area Deliverer Outside Device Identifier Shelf Expiration Date Model / Serial / Lot Port Implant W/8f Poly Cath - [id number] Implanted:Qty : 1 on 05/18/2023 by Juan Jose Connell, at OR [facility] Right: Chest CR BARD : PERIPHERAL VASCULAR [id number] 11/18/2024 [id number] / / [id number] documented as of this encounter Visit Diagnoses Diagnosis Encounter for care related to feeding tube- Primary Fitting and adjustment of other gastrointestinal appliance and device documented in this encounter Advance Directives Latest Code Status on File Code Status Date Activated Date Inactivated Comments Full Code 2023 5:38 AM 09/07/2023 6:53 PM This order reflects the patients wishes and were consensually agreed upon. Question Answer Comments Discussion of Advance Directives occurred with: Patient Does the patient have a Living Will? No Does the patient have Health Care Power of Ink Maker? No Code Status History Code Status Date [...] Directives occurred with: Patient Care Teams Gas Generator Operator Relationship Specialty Start Date End Date Kinjal Reynoso PA-C [address] [phone] PCP - General Physician Surveillance Technician 11/05/22 documented as of this encounter
--- OUTSIDE RECORDS SUMMARY | 2024-01-01 09:16 | External Medical Summary | Summary of Care ---
Author Name Unknown Organization [facility] Address [address] [place] [address] Phone [phone] Care Team Providers Care Music Publisher Name Role Phone Kinjal Reynoso PA-C Primary Care Provider [phone] Reason for Visit * Reason Onset Date Comments Medication Refill 09/13/2023 Encounter Details Date Type Department Care Team (Late st Contact Info) Description 09/13/2023 Refill [facility] [place] [place] [phone] Kinjal Reynoso PA-C [address] [facility] [place] [address] Allergies Active Allergy Reactions Criticality Noted [...] as of this encounter (statuses as of 09/13/2023) Medications Medication Sig Dispensed Refills Start Date End Date Status Naloxone HCl 4 MG/0.1ML Nasal Liquid (Narcan Nasal)Indications:Ch ronic pelvic pain in female,MEDICATION USE AGREEMENT,Chronic abdominal pain ADMINISTER 1 SPRAY INTO 1 NOSTRIL FOR SUSPECTED OPIOID OVERDOSE - SEEK IMMEDIATE MEDICAL ATTENTION. [email or web address] 2 Each 3 03/31/2023 Active Polyethylene Glycol [...] Pain, Moderate. 472 mL 5 07/26/2023 Active Additional Information Patient not taking.Reported on 2023 Gabapentin 300 MG Oral Capsule (Neurontin) Take 1 Capsule by mouth in the morning and 1 Capsule at noon and 1 Capsule before bedtime. 0 08/12/2023 Active Promethazine HCl 25 MG Oral Tablet (Phenergan) Take 1 Tablet by mouth every 6 hours as needed for Nausea for up to 120 doses. 120 Tablet 0 08/15/2023 Active Gabapentin 100 MG Oral Capsule (Neurontin) Take 1 Capsule by mouth in the morning and 1 Capsule at noon and 1 Capsule before bedtime. Take with your 300 mg gabapentin capsule for total of 400 mg per dose.. 90 Capsule 0 08/16/2023 Active oxyCODONE HCl 5 MG Oral Tablet (Oxy IR)Indications:Chron ic pelvic pain in female,Gastroparesis ,Malfunction of jejunostomy tube (HCC) Take 1 Tablet by mouth every 6 hours as needed for Pain, Severe (No more than 4 doses in 24 hours.). Must last 14 days. 54 Tablet 0 08/29/2023 Active Ondansetron 4 MG Oral Tablet Disintegrating (Zofran) Place 1 Tablet on tongue every 8 hours as needed for Nausea. dissolve on tongue. 0 Active documented as of this encounter (statuses as of 09/13/2023) Active Problems Problem Noted Date Diagnosed Date [...] as of this encounter (statuses as of 09/13/2023) Resolved Problems Problem Noted Date Diagnosed Date [...] as of this encounter (statuses as of 09/13/2023) Immunizations Name Administration Dates Next Due DTaP [...] encounter Miscellaneous Notes * Telephone Encounter - Tj Trujillo PHARM Tech - 09/13/2023 8:48 AM EDT ERROR Thank you, Tj Trujillo Carnival Worker I [facility] ([facility])(formerly Telepharmacy) 09/13/2023,8:53 AM documented in this encounter Plan of Treatment Upcoming Encounters Date Type Department Care Team (Late st Contact Info) Description 09/16/2023 9:00 AM EDT [facility] [address] [place] [address] [place] [phone] Kinjal Reynoso PA-C [address] [facility] [place] [place] [address] 09/20/2023 12:40 PM EDT Office Visit Nutrition & Weight Management, [facility] [address] [place] [address] Cee Santizo PA-C [address] [place] [address] 12/08/2023 5:20 PM EDT Office Visit Family Practice, [place] [address] [place] [phone] Kinjal Reynoso PA-C [address] [facility] [place] [address] Health Maintenance Due Date Last Done Comments GARDASIL-HPV IMMUNIZATION SE KIM (1 - 3-dose series) 2016 COVID-19 Vaccine ( - 2022-2 4 season) 2023 Influenza Vaccine (FLU shot) (#1) 2023 Gonorrhea [...] this encounter Medical Devices Implanted Type Area Door Captain Device Identifier Shelf Expiration Date Model / Serial / Lot Port Implant W/8f Poly Cath - [id number] Implanted:Qty : 1 on 05/18/2023 by Juan Jose Connell DO at OR [facility] Right: Chest CR BARD : PERIPHERAL VASCULAR [id number] 11/18/2024 [id number] / / [id number] documented as of this encounter Advance Directives [...] the patient have Health Care Power of Window Air Conditioner Installer? No Code Status History Code Status Date [...] Advance Directives occurred with: Patient Care Teams Music Publisher Relationship Specialty Start Date End Date Kinjal Reynoso PA-C [address] [phone] PCP - General Physician Button Breaker 11/05/22 documented as of this encounter
--- OUTSIDE RECORDS SUMMARY | 2024-01-01 09:16 | External Medical Summary | Summary of Care ---
Author Name Unknown Organization [facility] Address [address] [place] [address] Phone [phone] Care Team Providers Care Periodicals Library Assistant Name Role Phone Kinjal Reynoso PA-C Primary Care Provider [phone] Reason for Visit * Reason Onset Date Comments Advice 06/16/2023 Post op complica tion J tub replacement. Encounter Details Date Type Department Care Team (Late st Contact Info) Description 06/16/2023 Telephone [facility] [place] [address] [facility] [place] [phone] Kinjal Reynoso PA-C 21 [facility] [place] [address] Advice (Post op complication J tub replace... Allergies Active Allergy Reactions Criticality Noted Date [...] as of this encounter (statuses as of 09/15/2023) Medications Medication Sig Dispensed Refills Start Date End Date Status Naloxone HCl 4 MG/0.1ML Nasal Liquid (Narcan Nasal)Indications:C hronic pelvic pain in female,MEDICATION USE AGREEMENT,Chronic abdominal pain ADMINISTER 1 SPRAY INTO 1 NOSTRIL FOR SUSPECTED OPIOID OVERDOSE - SEEK IMMEDIATE MEDICAL ATTENTION. [email or web address] 2 Each 3 03/31/2023 Active Polyethylene [...] as of this encounter (statuses as of 09/15/2023) Active Problems Problem Noted Date Diagnosed Date [...] as of this encounter (statuses as of 09/15/2023) Resolved Problems Problem Noted Date Diagnosed Date [...] as of this encounter (statuses as of 09/15/2023) Immunizations Name Administration Dates Next Due DTaP [...] encounter Miscellaneous Notes * Telephone Encounter - Manfred Reyes OSA - 06/17/2023 3:24 PM EST DME given to pt * Telephone Encounter - Rosmery Duncan OSA - 06/16/2023 3:00 PM EST What is the reason for call? New whole open post op in abdominal are that deep and open, 10/10 pain. Very load abdominal sound that increases the pain. What Clinic is the patient trying to reach? [facility]: [place] (1st Flr) - Call Type: Hot Call- warm transfer call to the electroneurodiagnostic technician EMERGENT line- [phone] Caller: patient Return Phone #: [phone] Call was warm transferred to Brigida at the electroneurodiagnostic technician line. documented in this encounter Plan of Treatment Upcoming Encounters Date Type Department Care Team (Late st Contact Info) Description 09/16/2023 9:00 AM EDT Office Visit [facility] [address] [phone] Kinjal Reynoso PA-C [address] [address] 09/20/2023 12:40 PM EDT Office Visit Nutrition & Weight Management, [facility] [address] [address] Cee Santizo PA-C [address] [address] 12/08/2023 5:20 PM EDT Office Visit [facility] [address] [phone] Kinjal Reynoso PA-C [address] [address] Health Maintenance Due Date Last Done Comments [...] this encounter Medical Devices Implanted Type Area Trolley Worker Device Identifier Shelf Expiration Date Model / Serial / Lot Port Implant W/8f Poly Cath - [id number] Implanted:Qty : 1 on 05/18/2023 by Juan Jose Connell, DO at OR [facility] Right: Chest CR BARD : PERIPHERAL VASCULAR [id number] 11/18/2024 [id number] / / [id number] documented as of this encounter Advance Directives [...] the patient have Health Care Power of Facility Maintenance Worker? No Code Status History Code Status [...] Advance Directives occurred with: Patient Care Teams Periodicals Library Assistant Relationship Specialty Start Date End Date Kinjal Reynoso PA-C [address] [address] PCP - General Physician Excavator Backhoe Operator 11/05/22 documented as of this encounter
--- OUTSIDE RECORDS SUMMARY | 2024-01-01 09:16 | External Medical Summary | Summary of Care ---
Author Name Unknown Organization [facility] Address [address] [place] [address] Phone [phone] Care Team Providers Care Warp Placer Name Role Phone Kinjal Reynoso PA-C Primary Care Provider [phone] Reason for Visit * Reason Comments Medication Refill Encounter Details Date Type Department Care Team (Late st Contact Info) Description 09/13/2023 Refill [facility] [place] [address] Kinjal Reynoso PA-C [address] [place] [address] Chronic pelvic pain in female; Gastroparesis; Malfunction of jejunostomy tube (HCC) Allergies [...] as of this encounter (statuses as of 09/14/2023) Medications Medication Sig Dispensed Refills Start Date End Date Status Naloxone HCl 4 MG/0.1ML Nasal Liquid (Narcan Nasal)Indications: Chronic pelvic pain in female,MEDICATION USE AGREEMENT,Chronic abdominal pain ADMINISTER 1 SPRAY INTO 1 NOSTRIL FOR SUSPECTED OPIOID OVERDOSE - SEEK IMMEDIATE MEDICAL ATTENTION. [email or web address] 2 Each 3 03/31/2023 Active Polyethylene Glycol [...] on 07/23/2023 Acetaminophen 160 MG/5ML Oral Suspension (Tylenol)Indicatio ns:Chronic pelvic pain in female,Gastropares is,Malfunction of jejunostomy tube (HCC) Administer 31.2 mL [...] mg per dose.. 90 Capsule 0 08/16/2023 09/15/2023 Active documented as of this encounter (statuses as of 09/14/2023) Active Problems Problem Noted Date Diagnosed Date [...] as of this encounter (statuses as of 09/14/2023) Resolved Problems Problem Noted Date Diagnosed Date [...] as of this encounter (statuses as of 09/14/2023) Immunizations Name Administration Dates Next Due DTaP [...] encounter Miscellaneous Notes * Telephone Encounter - Gabriella Hunter RPh - 09/14/2023 9:39 AM EDTRefused Prescriptions: Disp Refills oxyCODONE HCl 5 MG Oral Tablet (Oxy IR) 54 Tab*0 Sig: Take 1 Tablet by mouth every 6 hours as needed for Pain, Severe (No more than 4 doses in 24 hours.). Must last 14 days. Refused By: GABRIELLA HUNTER Reason for Refusal: Duplicate Request * Telephone Encounter - Rosmery Nguyen OSA - 09/13/2023 12:14 PM EDT Patient calling in to check on the status of previous message. Patient Called within 48 hour timeframe. Reminded patient of 48 hour turn-around time. * Telephone Encounter - Tj Trujillo PHARM Tech - 09/13/2023 8:53 AM EDT Pt calling to check on status of oxyCODONE HCl 5 MG Oral Tablet (Oxy IR) & Ondansetron 4 MG Oral Tablet Disintegrating (Zofran) . Caller can be reached at [phone] . Thank you, Tj Trujillo Banking And Finance Instructor I [facility] ([facility])(formerly Telepharmacy) 09/13/2023,8:54 AM documented in this encounter Plan of Treatment Upcoming Encounters Date Type Department Care Team (Late st Contact Info) Description 09/16/2023 9:00 AM EDT Office Visit [facility] [place] [address] [phone] Kinjal Reynoso PA-C [address] [address] 09/20/2023 12:40 PM EDT Office Visit Nutrition & Weight Management, Health [facility] [address] [facility] [place] [address] Cee Santizo PA-C 132 [facility] [place] [address] 12/08/2023 5:20 PM EDT [facility] [address] [phone] Kinjal Reynoso PA-C [address] [address] Health Maintenance Due Date Last Done Comments [...] this encounter Medical Devices Implanted Type Area Temper Mill Roller Device Identifier Shelf Expiration Date Model / Serial / Lot Port Implant W/8f Poly Cath - [id number] Implanted:Qty : 1 on 05/18/2023 by Juan Jose Connell, at OR [facility] Right: Chest CR BARD : PERIPHERAL VASCULAR [id number] 11/18/2024 [id number] / / [id number] documented as of this encounter Visit Diagnoses Diagnosis Chronic pelvic pain in female Unspecified symptom [...] the patient have Health Care Power of Environmental Science Technician? No Code Status History Code Status Date [...] Advance Directives occurred with: Patient Care Teams Warp Placer Relationship Specialty Start Date End Date Kinjal Reynoso PA-C [address] [address] PCP - General Physician Jewelry Estimator 11/05/22 documented as of this encounter
--- OUTSIDE RECORDS SUMMARY | 2024-01-01 09:16 | External Medical Summary | Summary of Care ---
Author Name Unknown Organization [facility] Address [address] [place] [address] Phone [phone] Care Team Providers Care Science Editor Name Role Phone Kinjal Reynoso PA-C Primary Care Provider [phone] Reason for Visit * Reason Onset Date Comments Advice 06/19/2023 Encounter Details Date Type Department Care Team (Late st Contact Info) Description 06/19/2023 Telephone [facility] [address] [facility] [place] [phone] Kinjal Reynoso PA-C 21 [facility] [place] [address] Advice Allergies Active [...] as of this encounter (statuses as of 09/18/2023) Medications Medication Sig Dispensed Refills Start Date End Date Status Naloxone HCl 4 MG/0.1ML Nasal Liquid (Narcan Nasal)Indicatio ns:Chronic pelvic pain in female,MEDICATI ON USE AGREEMENT,Chron ic abdominal pain ADMINISTER 1 SPRAY INTO 1 NOSTRIL FOR SUSPECTED OPIOID OVERDOSE - SEEK IMMEDIATE MEDICAL ATTENTION. [email or web address] 2 Each 3 3 Active Polyethylene Glycol [...] 12 hours.. 30 Patch 0 3 Active Additional Information Patient not taking.Reported on 07/23/2023 Norethindrone Acetate 5 MG Oral Tablet Take 1 Tablet by mouth in the morning. 0 3 07/16/19 24 Discontinued(Pat ient preference/disco ntinuation) Acetaminophen 325 MG Oral Tablet (Tylenol) 2 Tablets. 0 3 07/12/19 24 Discontinued Peptamen 1.5 Oral Liquid Administer 1000 mL daily, as directed through J Tube via feeding pump 93129 mL 11 3 08/27/19 24 Discontinued(Pat ient preference/disco ntinuation) Lansoprazole 15 MG Oral Capsule Delayed Release 2 Capsules. 0 3 08/27/19 24 Discontinued(Pat ient preference/disco ntinuation) Gabapentin 300 MG Oral Capsule (Neurontin) Take 1 Capsule by mouth in the morning and 1 Capsule at noon and 1 Capsule before bedtime. 90 Capsule 0 3 08/12/19 24 Discontinued Promethazine HCl 25 MG Oral Tablet (Phenergan) Take 1 Tablet by mouth every 6 hours as needed for Nausea for up to 90 doses. Crush and mix with water then give through jejunostomy tube, then flush with at least 20 ml of water, use one-half tablet if it feels too strong. 90 Tablet 0 3 08/15/19 24 Discontinued(Med ication List Clean Up) Ciprofloxacin HCl 500 MG Oral Tablet (Cipro) Take 1 Tablet by mouth in the morning and 1 Tablet before bedtime - do all this for 10 days. 20 Tablet 0 3 07/08/19 24 Discontinued oxyCODONE HCl 15 MG Oral Tablet (Roxicodone)Ind ications:Chroni c abdominal pain,Chronic female pelvic pain Take 1 Tablet by mouth every 6 hours as needed for Pain, Severe or Pain, Moderate. Continuation of Care. Weaning down. Dispense 24 tablets for 7 day supply. Next refill due 06/28/22. 24 Tablet 0 3 06/28/19 24 Discontinued(Ref ill) documented as of this encounter (statuses as of 09/18/2023) Active Problems Problem Noted Date Diagnosed Date [...] as of this encounter (statuses as of 09/18/2023) Resolved Problems Problem Noted Date Diagnosed Date [...] as of this encounter (statuses as of 09/18/2023) Immunizations Name Administration Dates Next Due DTaP [...] encounter Miscellaneous Notes * Telephone Encounter - Malini Perez OSA - 06/19/2023 12:31 PM EST Patient was seen in the ED a few days ago. The hole in her stomach is enlarging and there's anotherone. She is reporting there are complications. Please further advise as soon as possible. documented in this encounter Plan of Treatment Upcoming Encounters Date Type Department Care Team (Late st Contact Info) Description 09/20/2023 12:40 PM EDT Office Visit Nutrition [facility], [facility] [address] [place] [address] Cee Santizo PA-C [address] [place] [phone] 09/23/2023 3:00 PM EDT Office Visit [facility] [address] [phone] Kinjal Reynoso PA-C [address] [place] [place] [address] 12/08/2023 5:20 PM EDT [facility] [address] [place] [phone] Kinjal Reynoso PA-C [address] [place] [phone] Health Maintenance Due Date Last Done Comments [...] this encounter Medical Devices Implanted Type Area Stem Mounter Device Identifier Shelf Expiration Date Model / Serial / Lot Port Implant W/8f Poly Cath - [id number] Implanted:Qty : 1 on 05/18/2023 by Juan Jose Connell, at OR [facility] Right: Chest CR BARD : PERIPHERAL VASCULAR [id number] 11/18/2024 [id number] / / [id number] documented as of this encounter Advance Directives [...] the patient have Health Care Power of College Or University Department Head? No Code Status History Code Status Date [...] Advance Directives occurred with: Patient Care Teams Science Editor Relationship Specialty Start Date End Date Kinjal Reynoso PA-C [address] [phone] PCP - General Physician Barbed Wire Machine Operator 11/05/22 documented as of this encounter
--- OUTSIDE RECORDS SUMMARY | 2024-01-01 09:16 | External Medical Summary | Summary of Care ---
Author Name Unknown Organization [facility] Address [address] [place] [address] Phone [phone] Care Team Providers Care Team Leader Surgery Name Role Phone Kinjal Reynoso PA-C Primary Care Provider [phone] Reason for Visit * Reason Onset Date Comments Hospital Follow-Up Hospital Follow-Up 09/23/2023 Encounter Details Date Type Department Care Team (Late st Contact Info) Description 09/23/2023 3:00 PM EDT Office Visit [facility] [place] [phone] Kinjal Reynoso PA-C 21 [facility] [place] [address] Hospital discharge follow-up*; Gastroparesis; Chronic pelvic pain in female; Malfunction [...] as of this encounter (statuses as of 09/23/2023) Medications Medication Sig Dispensed Refills Start Date End Date Status Naloxone HCl 4 MG/0.1ML Nasal Liquid (Narcan Nasal)Indications:C hronic pelvic pain in female,MEDICATION USE AGREEMENT,Chronic abdominal pain ADMINISTER 1 SPRAY INTO 1 NOSTRIL FOR SUSPECTED OPIOID OVERDOSE - SEEK IMMEDIATE MEDICAL ATTENTION. [email or web address] 2 Each 3 03/31/2023 Active Polyethylene Glycol [...] 28 days. 108 Tablet 0 09/23/2023 Active oxyCODONE HCl 5 MG Oral Tablet (Oxy IR)Indications:Dental Assisting Instructor viviana pelvic pain in female,Gastroparesi s,Malfunction of jejunostomy tube (HCC) Take 1 Tablet by mouth every 6 hours as needed for Pain, Severe (No more than 4 doses in 24 hours.). Must last 14 days. 54 Tablet 0 09/13/2023 Discontinu ed(Refill) documented as of this encounter (statuses as of 09/23/2023) Active Problems Problem Noted Date Diagnosed Date [...] as of this encounter (statuses as of 09/23/2023) Resolved Problems Problem Noted Date Diagnosed Date [...] as of this encounter (statuses as of 09/23/2023) Immunizations Name Administration Dates Next Due DTaP [...] Never Smokeless Tobacco: Never Tobacco Cessation:Counseling Given: Not Answered Alcohol Use Standard Drinks/Week Comments Not Currently [...] Sign Reading Time Taken Comments Blood Pressure 110/76 09/23/2023 3:15 PM EDT Pulse 88 09/23/2023 3:15 PM EDT Temperature 37.1 C (98.8 F) 09/23/2023 3:15 PM ED T Respiratory Rate 16 09/23/2023 3:15 PM EDT Oxygen Saturation 98% 09/23/2023 3:15 PM EDT Inhaled Oxygen Concentration - - Weight 76 kg (167 lb 9.6 oz) 09/23/2023 3:15 PM EDT Height - - Body Mass Index 30.65 2023 7:12 AM EDT documented in this encounter Functional [...] * Patient Instructions* Kinjal Reynoso PA-C - 09/23/2023 3:21 PM EDT Recommend BioGia probiotic to speed gastric emptying. The supplement D-limonene may also help. Try Azythromycin 250mg one tablet daily for 14 days. Taking Medicine Safely Medicine is given to help treat or prevent illness. But if you don't take it correctly, it might not help. It might even harm you. Your doctor or pharmacist can help you learn the right way to take your medicine. Listed below are some tips to help you take medicine safely. Safety Tips Have a routine for taking each medicine. Make it part of something you do each day, such as brushing your teeth or eating a meal. When you go to the hospital or your doctor's office, bring all your current medicines in their original boxes or bottles. If you can't do that, bring an up-to-date list of your medicines. Do not stop taking a prescription medicine unless your doctor tells you to. Doing so could make your condition worse. Do not share medicines. Let your doctor and pharmacist know of any allergies you have. Taking prescription medicines with alcohol, street drugs, herbs, supplements, or even some gpsk-ftg-jhceiff medicines can be harmful. Talk to your doctor or pharmacist before using any of these things while taking a prescription medicine. When filling your prescriptions, try using the same pharmacy for all your medicines. If not, let the pharmacist know what medicines you are already on. Keep medicines out of the reach of children and pets. Do not use medicine that has or that doesn't look or smell right. Get rid of it properly. To find out the right way to get rid of medicine: Call your [facility] or [facility] government's household trash and recycling service and ask if a drug take-back program is available in your community. Call your local pharmacy and ask the right way to get rid of the medicine. Go to http://www.fda.gov/ForConsumers/ConsumerUpdates/qhq708850 to learn how to get rid of medicines safely. Using Generic Medicines Medicines have brand names and generic (chemical) names. When a medicine is first made, it is sold only under its brand name. Later, it can be made and sold as a generic. Generic medicines cost less than brand-name medicines and most work just as well. Most people can use the generic medicine instead of the brand-name medicine, unless their doctor says otherwise. 6045-6649 [facility], [address] [place] [address], [place] [id number]. All rights reserved. This information is not intended as a substitute for professional medical care. Always follow your healthcare professional's instructions. Coping with Your Diagnosis of a Chronic Health Condition If you have a chronic health condition, you have a problem that may not go away over time. Heart disease, asthma, arthritis, and diabetes are just a few of the chronic conditions that exist. Right now, these conditions have no known cure. But you can take an active role in managing your health. Coping with Your Diagnosis If you've just learned about your health condition, you may be angry, depressed, or afraid. Or you might feel relieved just to know what's wrong. Even if you've known about your health problem for a while, adjusting to it can be hard. But learning about your condition can help you cope. Look for books at your local library. If you have access to a computer, check the Internet. Or contact a group that focuses on your specific problem. Accepting Change Change is hard for most people. Yet right now you may be facing many changes. What you eat or the way you work may change. Your moods, and even your symptoms, might vary from day to day. Although it isn't easy, learning to accept change can help you feel more in control. Taking Control Feeling you have control can make living with your condition easier. Discuss treatment options withyour health care provider. The more you know, the more active you can be in your care. Moving Forward You may wonder whether you will be able to do the things you've always done. That depends on your age, the condition you have, and your goals. To make the most of each day, try to build caring relationships, be active, and eat right. Also, do your best to keep [place] [address]. All rights reserved. This information is not intended as a substitute for professional medical care. Always follow your healthcare professional's instructions. Taking an Active Role in Your Medicines Take the time to learn about your medicine. For instance, why are you taking it? What does it do? Work with your doctor or other health care providers to get the answers you need. Talk to your pharmacist about how to take each medicine, and ask for a fact sheet on each one. Ask Questions About Your Medicine What is the name of the medicine? Why do I need to take it? When should I take it? How should I take it: with water? with food? on an empty stomach? How much do I take? What do I do if I miss a dose? What side effects could it cause and which ones should I call the doctor about? Are there any foods or medicines I should avoid while taking this medicine? Keeping track of your medications? Name of medicine: Taken for: Dose: Time(s) to take it: Take an Active Role Fill all your prescriptions at the same pharmacy. This keeps your medicine history in one place. Talk to the pharmacist. Make sure you understand how to take each medicine. Ask for a fact sheet about each one. Tell your doctor and pharmacist about all the prescription and qjoa-rtf-gutbvee medicines you take.This includes vitamins and herbal remedies. Tell your doctor and pharmacist if you have any medical conditions or allergies to any medicine or food, or if you are or . Keep a list of all your medicines. Use the sample to the right as a guide for the type of information [place] [address]. All rights reserved. This information is not intended as a substitute for professional medical care. Always follow your healthcare professional's instructions. documented in this encounter Progress Notes * Kinjal Reynoso PA-C - 09/23/2023 3:21 PM EDT SUBJECTIVE: Anirudh Peñaloza is a 23 year old female. Chief Complaint Patient presents with Hospital Follow-Up Hospital Follow-Up Recent Admission: Patient was recently admitted to [facility] 09/06/23. The date of discharge was 09/07/23. Discharge report received and reviewed. HPI: Patient was admitted to [facility] for poor p.o. intake status post removal of J-tube with a diagnosis of gastroparesis. She was having constant nausea vomiting. She was admitted for IV fluids. GI and surgery consults were completed. Tried patient on IV erythromycin. Wafer Fabrication Technician consult also completed. Patient given Zofran IV and Phenergan suppositories as needed. Patient tolerated full liquid diet and was ultimately discharged. Pt has continues to vomit with eating solids. Vomiting daily. However, she is holding down some food. Weight has been stable. She has abdominal pain with eating. Vomiting occurs within an hour of eating. Pt has been in contact with her surgeon at [facility]. She is scheduled for reinsertion of tubes on 10/01/23. However, she does not want to get another tube, but she cannot tolerate the abdominal pain and vomiting much more every time she eats. Pt is allergic to Reglan. Erythromycin seemed to make her more nauseated. Patient Active Problem List Diagnosis Code Endometriosis N80.9 Medical marijuana use Z79.899 Gastroesophageal reflux disease with esophagitis without hemorrhage K21.00 Chronic pelvic pain in female R10.2, G89.29 Status post hysterectomy Z90.710 Adjustment disorder with depressed mood F43.21 PTSD (post-traumatic stress disorder) F43.10 Chronic, continuous use of opioids F11.90 Acute abdominal pain R10.9 Illness anxiety disorder F45.21 Dysmenorrhea N94.6 Ovarian cystic mass N83.209 Post concussive syndrome F07.81 Retention of urine R33.9 Adjustment disorder with mixed anxiety and depressed mood F43.23 Chronic abdominal pain R10.9, G89.29 Chronic female pelvic pain R10.2, G89.29 Endometriosis N80.9 Nausea and vomiting R11.2 Gastroparesis K31.84 Malfunction of jejunostomy tube (HCC) K94.13 Current Outpatient Medications Medication Sig Dispense Refill Naloxone HCl 4 MG/0.1ML Nasal Liquid (Narcan Nasal) ADMINISTER 1 SPRAY INTO 1 NOSTRIL FOR SUSPECTEDOPIOID OVERDOSE - SEEK IMMEDIATE MEDICAL ATTENTION. [email or web address] 2 Each 3 Polyethylene Glycol 3350 17 GM/SCOOP Oral Powder (MiraLax) Stir and dissolve 17 g (measuring line inisde of cap) in 4 to 8 ounces of any liquid and adminsiter into Gastric Tube in the morning and repeat same steps before bedtime. 238 g 1 Acetaminophen 160 MG/5ML Oral Suspension (Tylenol) Administer [...] Must last 28 days. 108 Tablet 0 Lidocaine 5 % External Patch (Lidoderm) Place 1 patch to skin over 12 hours every 24 hours Remove patch after 12 hours.. (Patient not taking: Reported on 07/23/2023) 30 Patch 0 No current facility-administered medications for this visit. Current and discharge medications have been reconciled. Review of patient's allergies indicates: Allergen Reactions Benadryl [Diphenhydramine] Hyperactive- restless legs - with IV benadryl Compazine [Prochlorperazine] Psych complications Gets very agitated Droperidol Other (Please comment) Feeling like ants are all over me Haldol [Haloperidol] Other (Please comment) Restless, "feels like ants are all over me" Hydroxyzine Other (Please comment) "restless legs" Ondansetron Flushing Reglan [Metoclopramide] Psych complications Gets very agitated Tigan [Trimethobenzamide] Bad reaction , patient doesn't remember the reaction OBJECTIVE: BP 110/76 | Pulse 88 | Temp 37.1 C (98.8 F) (Tympanic) | Resp 16 | Wt 76 kg (167 lb 9.6 oz) | LMP (LMP Unknown) | SpO2 98% | BMI 30.65 kg/m | BSA 1.82 m REVIEW OF SYSTEMS: Review of Systems Constitutional: Negative for chills, diaphoresis, fatigue, fever and unexpected weight change. Respiratory: Negative for cough and chest tightness. Cardiovascular: Negative for chest pain. Gastrointestinal: Positive for abdominal pain, nausea and vomiting. Genitourinary: Negative for difficulty urinating. PHYSICAL EXAM: BP 110/76 | Pulse 88 | Temp 37.1 C (98.8 F) (Tympanic) | Resp 16 | Wt 76 kg (167 lb 9.6 oz) | LMP (LMP Unknown) | SpO2 98% | BMI 30.65 kg/m | BSA 1.82 m Physical Exam Vitals and nursing note reviewed. Constitutional: General: She is not in acute distress. Appearance: Normal appearance. She is not ill-appearing, toxic-appearing or diaphoretic. Cardiovascular: Rate and Rhythm: Normal rate and regular rhythm. Pulmonary: Effort: Pulmonary effort is normal. Breath sounds: Normal breath sounds. Neurological: Mental Status: She is alert and oriented to person, place, and time. ASSESSMENT: Hospital discharge follow-up (Primary) - DISCH MED RECON CUR MED LIS Gastroparesis - Azithromycin 250 MG Oral Tablet (Zithromax); Take 1 Tablet by mouth in the morning. - oxyCODONE HCl 5 MG Oral Tablet (Oxy IR); Take 1 Tablet by mouth every 6 hours as needed for severe pian. (No more than 4 doses in 24 hours.). Must last 28 days. Chronic pelvic pain in female - oxyCODONE HCl 5 MG Oral Tablet (Oxy IR); Take 1 Tablet by mouth every 6 hours as needed for severe pian. (No more than 4 doses in 24 hours.). Must last 28 days. Malfunction of jejunostomy tube (HCC) - oxyCODONE HCl 5 MG Oral Tablet (Oxy IR); Take 1 Tablet by mouth every 6 hours as needed for severe pian. (No more than 4 doses in 24 hours.). Must last 28 days. Follow Up: Return for As scheduled. | For: As scheduled PLAN: Pt agreeable to trying azythromycin to help with gastroparesis. Recommend also trying probiotic BioGia increases peristalsis. Eat small frequent meals. Stay hydrated. Follow up with GI and surgery. I spent a total of 30-39 minutes (exact time 34 mins) minutes on the date of service in preparation, delivery, and documentation of the care provided to Anirudh Peñaloza excluding any time spent in performance of separately billed services. Kinjal Reynoso PA-C documented in this encounter Nursing Notes * Akua Armando LPN - 09/23/2023 3:16 PM EDT Chief Complaint Patient presents with Hospital Follow-Up Pt states she had her J tube removed in August. She states it was removed due to causing pain and was being dislodged. She was in - 09/05-09/06 for gastroparesis. She is to have it replaced but hasn't been notified when yet. [facility] documented in this encounter Plan of Treatment Upcoming Encounters Date Type Department Care Team (Late st Contact Info) Description 12/08/2023 5:20 PM EDT Office Visit [facility] [address] [phone] Kinjal Reynoso PA-C [address] [phone] Health Maintenance Due Date Last Done Comments [...] this encounter Medical Devices Implanted Type Area Vp Home Health Device Identifier Shelf Expiration Date Model / Serial / Lot Port Implant W/8f Poly Cath - [id number] Implanted:Qty : 1 on 05/18/2023 by Juan Jose Connell, at OR [facility] Right: Chest CR BARD : PERIPHERAL VASCULAR [id number] 11/18/2024 [id number] / / [id number] documented as of this encounter Visit Diagnoses Diagnosis Hospital discharge follow-up- Primary Other follow-up examination Gastroparesis Chronic pelvic pain in female Unspecified [...] the patient have Health Care Power of Hardware Engineering Manager? No Code Status History Code Status [...] Advance Directives occurred with: Patient Care Teams Team Leader Surgery Relationship Specialty Start Date End Date Kinjal Reynoso PA-C [address] [address] PCP - General Physician Shipping And Receiving Assistant 11/05/22 documented as of this encounter
--- OUTSIDE RECORDS SUMMARY | 2024-01-01 09:16 | External Medical Summary | Summary of Care ---
Author Name Unknown Organization [facility] Address [address] [place] [address] Phone [phone] Care Team Providers Care Coat Maker Name Role Phone Kinjal Reynoso PA-C Primary Care Provider [phone] Reason for Visit * Reason Onset Date Comments Follow Up Pt got the J-tub e removed-when she eats she is having a lot of pain, is not keeping any solids down, is having heart palpitations, thinks she is dehydratedPatient has been verbally educated on the need or importance of Immunizations: HPV and flu and has declined topic(s). Hospital Follow-Up 08/27/2023 Encounter Details Date Type Department Care Team (Late st Contact Info) Description 08/27/2023 9:00 AM EST Office Visit [facility] [place] [phone] Kinjal Reynoso PA-C [address] [address] Hospital discharge follow-up*; Gastroparesis; Malfunction of jejunostomy tube (HCC); Gastroesophageal reflux disease with esophagitis without hemorrhage; Chronic, continuous use of opioids Allergies Active [...] as of this encounter (statuses as of 09/21/2023) Medications Medication Sig Dispensed Refills Start Date End Date Status Naloxone HCl 4 MG/0.1ML Nasal Liquid (Narcan Nasal)Indications :Chronic pelvic pain in female,MEDICATION USE AGREEMENT,Chronic abdominal pain ADMINISTER 1 SPRAY INTO 1 NOSTRIL FOR SUSPECTED OPIOID OVERDOSE - SEEK IMMEDIATE MEDICAL ATTENTION. [email or web address] 2 Each 3 03/31/2023 Active Polyethylene Glycol [...] on 07/23/2023 Acetaminophen 160 MG/5ML Oral Suspension (Tylenol)Indicati ons:Chronic [...] 120 doses. 120 Tablet 0 08/15/2023 Active Peptamen 1.5 Oral Liquid Administer 1000 mL daily, as directed through J Tube via feeding pump 57351 mL 11 04/12/2023 4 Discontinued (Patient preference/d iscontinuati on) Lansoprazole 15 MG Oral Capsule Delayed Release 2 Capsules. 0 05/18/2023 4 Discontinued (Patient preference/d iscontinuati on) Gabapentin 100 MG Oral Capsule (Neurontin) Take 1 Capsule by mouth in the morning and 1 Capsule at noon and 1 Capsule before bedtime. Take with your 300 mg gabapentin capsule for total of 400 mg per dose.. 90 Capsule 0 08/16/2023 4 oxyCODONE HCl 5 MG Oral Tablet (Oxy IR)Indications:Ch ronic pelvic pain in female,Gastropare sis,Malfunction of jejunostomy tube (HCC) Take 1 Tablet by mouth every 6 hours as needed for Pain, Severe (No more than 4 doses in 24 hours.). Must last 14 days. 54 Tablet 0 08/17/2023 4 Discontinued (Refill) documented as of this encounter (statuses as of 09/21/2023) Active Problems Problem Noted Date Diagnosed Date [...] as of this encounter (statuses as of 09/21/2023) Resolved Problems Problem Noted Date Diagnosed Date [...] as of this encounter (statuses as of 09/21/2023) Immunizations Name Administration Dates Next Due DTaP [...] Sign Reading Time Taken Comments Blood Pressure 108/70 08/27/2023 9:00 AM EST Pulse 110 08/27/2023 9:00 AM EST Temperature 35.9 C (96.7 F) 08/27/2023 9:00 AM ES T Respiratory Rate 18 08/27/2023 9:00 AM EST Oxygen Saturation 99% 08/27/2023 9:00 AM EST Inhaled Oxygen Concentration - - Weight 72.8 kg (160 lb 6.4 oz) 08/27/2023 9:00 A M EST Height - - Body Mass Index 29.34 08/15/2023 7:53 PM EST documented in this encounter Functional [...] * Patient Instructions* Kinjal Reynoso PA-C - 08/27/2023 9:14 AM EST To increase gastric emptying: Probiotic BioGia D-Limonene supplement Fresh yovani tea Nibble and sip frequently. Recommend electrolyte beverages. Recommend pureed soups. Taking Medicine Safely Medicine is given to [...] street drugs, herbs, supplements, or even some hvgl-nah-jfrvzjf medicines can be harmful. Talk to your [...] to get rid of medicine: Call your [facility] or [facility] government's household trash and recycling service and ask if a drug take-back program is available in your community. Call your local pharmacy and ask the right way to get rid of the medicine. Go to http://www.fda.gov/ForConsumers/ConsumerUpdates/meq926939 to learn how to get rid of [...] brand-name medicine, unless their doctor says otherwise. [address], [place] [address]. All rights reserved. This information is not [...] best to keep [place] [address]. All rights reserved. This information is not [...] and pharmacist about all the prescription and mame-jkn-rtcavvu medicines you take.This includes vitamins and herbal remedies. Tell your doctor and pharmacist if you have any medical conditions or allergies to any medicine or food, or if you are or . Keep a list of all your medicines. Use the sample to the right as a guide for the type of information needed. [address] [address]. All rights reserved. This information is not intended as a substitute for professional medical care. Always follow your healthcare professional's instructions. documented in this encounter Progress Notes * Kinjal Reynoso PA-C - 08/27/2023 9:12 AM EST SUBJECTIVE: Anirudh Peñaloza is a 22 year old female. Chief Complaint Patient presents with Follow Up Pt got the J-tube removed-when she eats she is having a lot of pain, is not keeping any solids down, is having heart palpitations, thinks she is dehydrated Patient has been verbally educated on the need or importance of Immunizations: HPV and flu and has declined topic(s). Hospital Follow-Up Recent Admission: HPI: Pt had J-tube removed 08/20/23 for recurrent malfunction and pain. Since then, she has not been tolerating PO intake. Pain and vomiting after eating. She thinks she is dehydrated. She is seeing [facility] who advised two high calorie ONS shakes. Advised 1400Kcal/day with 56-67g protein/day [id number]/day of fluids. Yesterday she was not keeping the Boost drinks down. BM's 2x in the past week. Patient Active Problem List Diagnosis Code Endometriosis [...] Current Outpatient Medications Medication Sig Dispense Refill Gabapentin 300 MG Oral Capsule (Neurontin) Take 1 Capsule by mouth in the morning and 1 Capsule at noon and 1 Capsule before bedtime. Naloxone HCl 4 MG/0.1ML Nasal Liquid (Narcan Nasal) ADMINISTER 1 SPRAY INTO 1 NOSTRIL FOR SUSPECTEDOPIOID OVERDOSE - SEEK IMMEDIATE MEDICAL ATTENTION. [email or web address] 2 Each 3 Polyethylene Glycol 3350 17 [...] 8 hours as needed for Pain, Moderate. (Patient not taking: Reported on 2023) 472 mL 5 Promethazine HCl 25 MG Oral Tablet (Phenergan) Take 1 Tablet by mouth every 6 hours as needed for Nausea for up to 120 doses. 120 Tablet 0 oxyCODONE HCl 5 MG Oral Tablet (Oxy IR) Take 1 Tablet by mouth every 6 hours as needed for Pain, Severe (No more than 4 doses in 24 hours.). Must last 14 days. 54 Tablet 0 Ondansetron 4 MG Oral Tablet Disintegrating (Zofran) Place 1 Tablet on tongue every 8 hours as needed for Nausea. dissolve on tongue. 30 Tablet 2 No current facility-administered medications for this visit. [...] patient doesn't remember the reaction OBJECTIVE: BP 108/70 | Pulse 110 | Temp 35.9 C (96.7 F) (Tympanic) | Resp 18 | Wt 72.8 kg (160 lb 6.4 oz) | LMP (LMP Unknown) | SpO2 99% | BMI 29.34 kg/m | BSA 1.78 m REVIEW OF SYSTEMS: PHYSICAL EXAM: BP 108/70 | Pulse 110 | Temp 35.9 C (96.7 F) (Tympanic) | Resp 18 | Wt 72.8 kg (160 lb 6.4 oz) | LMP (LMP Unknown) | SpO2 99% | BMI 29.34 kg/m | BSA 1.78 m Physical Exam Vitals and nursing note reviewed. Constitutional: General: She is not in acute distress. Appearance: Normal appearance. She is not ill-appearing, toxic-appearing or diaphoretic. Cardiovascular: Rate and Rhythm: Normal rate and regular rhythm. Heart sounds: Normal heart sounds. Pulmonary: Effort: Pulmonary effort is normal. Breath sounds: Normal breath sounds. Neurological: Mental Status: She is alert. ASSESSMENT: Hospital discharge follow-up (Primary) - DISCH MED RECON CUR MED LIS Gastroparesis Malfunction of jejunostomy tube (HCC) Gastroesophageal reflux disease with esophagitis without hemorrhage Chronic, continuous use of opioids Follow Up: Return for As scheduled. | For: As scheduled PLAN: Discussed starting with sips every 15 minutes. Drink electrolyte beverages and Boost or Ensure. Then slowly advance diet as tolerated. Follow up with nutrition and with surgeon as scheduled. I spent a total of 30-39 minutes (exact time 35 mins) minutes on the date of service in preparation, delivery, and documentation of the care provided to Anirudh Peñaloza excluding any time spent in performance of separately billed services. Kinjal Reynoso PA-C documented in this encounter Plan of Treatment Upcoming Encounters Date Type Department Care Team (Late st Contact Info) Description 09/23/2023 3:00 PM EDT Office Visit [facility] [address] [phone] Kinjal Reynoso PA-C [address] [address] 12/08/2023 5:20 PM EDT Office Visit [facility] [place] [address] [phone] Kinjal Reynoso PA-C [address] [place] [address] Health Maintenance Due Date Last Done Comments [...] this encounter Medical Devices Implanted Type Area Measurer Device Identifier Shelf Expiration Date Model / Serial / Lot Port Implant W/8f Poly Cath - [id number] Implanted:Qty : 1 on 05/18/2023 by Juan Jose Connell DO at OR [facility] Right: Chest CR BARD : PERIPHERAL VASCULAR [id number] 11/18/2024 [id number] / / [id number] documented as of this encounter Visit Diagnoses Diagnosis Hospital discharge follow-up- Primary Other follow-up examination Gastroparesis Malfunction of jejunostomy tube (HCC) Mechanical complication of colostomy and enterostomy Gastroesophageal reflux disease with esophagitis without hemorrhage Chronic, continuous use of opioids Opioid type dependence, continuous documented in this encounter Advance Directives Latest Code Status on File Code Status Date Activated Date Inactivated Comments Full Code 2023 5:38 AM 09/07/2023 6:53 PM This order reflects the patients wishes and were consensually agreed upon. Question Answer Comments Discussion of Advance Directives occurred with: Patient Does the patient have a Living Will? No Does the patient have Health Care Power of Auto Garage Attendant? No Code Status History Code Status Date [...] Advance Directives occurred with: Patient Care Teams Coat Maker Relationship Specialty Start Date End Date Kinjal Reynoso PA-C [address] [address] PCP - General Physician Equipment Validation Engineer 11/05/22 documented as of this encounter
--- OUTSIDE RECORDS SUMMARY | 2024-01-01 09:16 | External Medical Summary | Summary of Care ---
Author Name Unknown Organization [facility] Address [address] [place] [address] Phone [phone] Care Team Providers Care Senior Technical Analyst Name Role Phone Kinjal Reynoso PA-C Primary Care Provider [phone] Reason for Visit * Reason Onset Date Comments Hospital Follow-Up 09/08/2023 [facility] Encounter Details Date Type Department Care Team (Late st Contact Info) Description 09/08/2023 Telephone Ancillary 1st Floor, [address] [place] [address] Toyin Cooper, RN Hospital Follow-Up ([facility]) Allergies Active Allergy Reactions Criticality Noted Date [...] as of this encounter (statuses as of 09/08/2023) Medications Medication Sig Dispensed Refills Start Date End Date Status Naloxone HCl 4 MG/0.1ML Nasal Liquid (Narcan Nasal)Indications:Ch ronic pelvic pain in female,MEDICATION USE AGREEMENT,Chronic abdominal pain ADMINISTER 1 SPRAY INTO 1 NOSTRIL FOR SUSPECTED OPIOID OVERDOSE - SEEK IMMEDIATE MEDICAL ATTENTION. [email or web address] 2 Each 3 03/31/2023 Active Polyethylene Glycol [...] as of this encounter (statuses as of 09/08/2023) Active Problems Problem Noted Date Diagnosed Date [...] as of this encounter (statuses as of 09/08/2023) Resolved Problems Problem Noted Date Diagnosed Date [...] as of this encounter (statuses as of 09/08/2023) Immunizations Name Administration Dates Next Due DTaP [...] Telephone Encounter - Toyin Cooper RN - 09/08/2023 4:12 PM EDT Transitions of Care Note Reason for Referral:Recent Admission Phone visit for follow up: inpatient hospitalization Admitted to: [facility], Date: 09/06/23 Discharged to: home, Date: 09/07/23 Diagnosis driving hospitalization: Gastroparesis Source/Contact: Patient SUBJECTIVE Consent: Verbal consent for review of hospital discharge: Yes REVIEW OF SYSTEMS Patient/Other Reports: Current patient/caregiver problems or concerns: Patient states she is feeling about the same as shedid in the hospital. She is not able to keep much down. She states she is vomiting and has pain when she eats. She states she is able to tolerate sips of liquids. CV: Denies problems Pulmonary: Denies problems Chills/Sweats/Fever:Denies chills/sweats Denies fever Appetite:Pain with eating and states she is vomiting. Tolerating sips of liquids Current diet: full liquid, advance to prior to admission diet Bowel: denies problems Bladder: denies problems Wound (If applicable): N/A Pain:pain in abdomin pamela. With eating. Taking Oxycodone with relief. Sleep:Denies problems FUNCTIONAL STATUS: ADL'S: Needs Assistance With:N/A as pt is independent IADL'S: Needs Assistance With:N/A as pt is independent Cognitive and Mental Health: denies problems, alert and oriented x 3, and able to communicate, understand instructions, process information. MEDICATION RECONCILIATION Medications: Discharge med list reviewed with patient or caregiver ASSESSMENT Medication Risk Assessment: Taking sedatives/hypnotics/narcotic analgesics and increased fall risk Did patient fail outpatient treatment? Yes Discharge instructions available for review? Yes PLAN Symptom Monitoring Interventions:Member/caregiver education - signs and symptoms to contact PrimaryCare (DO NOT DELETE-[place] symptoms patient is to report to PCP) 1. Increased pain 2. Increased vomiting 3. Fever/chills Sales Service RepBargain Table Clerk of Care interventions/Action Plan: 5 - 7 day follow-up with PCP in place - Date: 09/16/23 Educated on role of [facility] completed with patient/caregiver. Educated patient/caregiver on patient right to have input on [facility] plan of care. Identified Care Gaps: Yes Care Gaps closed this call: Appointment made or confirmed and Medication adherence Re-evaluation of Plan of Care and progress towards goals achievement: Patient education this visit: Verbal, see above Plan to instructed to call Primary Care Provider with change in symptoms or as needed before next follow-up, discharge needs met, verbalizes understanding and agrees with plan. Toyin Cooper RN documented in this encounter Plan of Treatment Upcoming Encounters Date Type Department Care Team (Late st Contact Info) Description 09/16/2023 9:00 AM EDT Office Visit [facility] [place] [phone] Kinjal Reynoso PA-C [place] [address] 09/20/2023 12:40 PM EDT Office Visit Nutrition & Weight Management, [facility] [address] [place] [address] Cee Santizo PA-C [address] [place] [address] 12/08/2023 5:20 PM EDT Office Visit Family [facility] [place] [address] [phone] Kinjal Reynoso PA-C [address] [place] [phone] Health Maintenance Due Date Last Done Comments [...] this encounter Medical Devices Implanted Type Area Preschool Head Teacher Device Identifier Shelf Expiration Date Model / Serial / Lot Port Implant W/8f Poly Cath - [id number] Implanted:Qty : 1 on 05/18/2023 by Juan Jose Connell DO at OR [facility] Right: Chest CR BARD : PERIPHERAL VASCULAR [id number] 11/18/2024 [id number] / / [id number] documented as of this encounter Advance Directives [...] the patient have Health Care Power of Carbonating Stone Cleaner? No Code Status History Code Status Date [...] Directives occurred with: Patient Care Teams Senior Technical Analyst Relationship Specialty Start Date End Date Kinjal Reynoso PA-C [address] [place] [address] PCP - General Physician Tooth Cutter 11/05/22 documented as of this encounter
--- OUTSIDE RECORDS SUMMARY | 2024-01-01 09:17 | External Medical Summary ---
Author Name Unknown Address Unknown Organization K1F:LABORATORY [facility] - [address] [facility] [address] Laboratory Report Ordering Provider Test Date Status KASANDRA DELGADO 2023 05:13:00 Final SCREENING Observation Date Value Abnormality Reference (Units ) Status SARS Coronavirus 2 2023 05:13:00 Negative N egative Final 2019 Novel Coronavirus not d etected.

This express test was developed and its performance characteristics determined by [employer]. It has not been cleared or approved [...] was developed and performance characteristics determined by [employer]. The validation of alternate specimen types has not been cleared or approved by the U.S. Food and Drug Administration (FDA). It has been determined that such clearance is not necessary. Performing Location LABORATORY [facility] - [address] [facility] [address]
--- OUTSIDE RECORDS SUMMARY | 2024-01-01 09:17 | External Medical Summary ---
Author Name Unknown Address Unknown Organization K1F[facility] - [address] [address] Laboratory Report Ordering Provider Test Date Status CHANDRAKANT SUBRAMANIAN 09/07/2023 04:32:00 Final Observation Date Value Abnormality Reference (Units ) Status Phosphate 09/07/2023 04:32:00 4.0 2.5-4.8 (m g/dL) Final Performing Location LABORATORY [facility] - [address] [address]
--- OUTSIDE RECORDS SUMMARY | 2024-01-01 09:17 | External Medical Summary | Summary of Care ---
Author Name Unknown Organization [facility] Address [address] [place] [address] Phone [phone] Care Team Providers Care Self Storage Manager Name Role Phone Kinjal Reynoso PA-C Primary Care Provider [phone] Reason for Referral * Medication Prior Authorization - Pending Review Specialty Diagnoses / Procedures Referred By Carmen kirby Referred To Contact Diagnoses Chronic pelvic pain in female Gastroparesis Malfunction of jejunostomy tube (HCC) Kinjal Reynoso PA-C [place] [address] Referral ID Status Reason Start Date Expiration Date V isits Requested Visits Authorized [id number] Pending Review 999 999 Reason for Visit * Reason Comments Medication Refill Encounter Details Date Type Department Care Team (Late st Contact Info) Description 08/27/2023 Refill [facility] [place] [phone] Ace Leonard MD [place] [address] Chronic pelvic pain in female; Gastroparesis; Malfunction [...] as of this encounter (statuses as of 08/29/2023) Medications Medication Sig Dispensed Refills Start Date End Date Status Naloxone HCl 4 MG/0.1ML Nasal Liquid (Narcan Nasal)Indications :Chronic pelvic pain in female,MEDICATION USE AGREEMENT,Chronic abdominal pain ADMINISTER 1 SPRAY INTO 1 NOSTRIL FOR SUSPECTED OPIOID OVERDOSE - SEEK IMMEDIATE MEDICAL ATTENTION. [email or web address] 2 Each 3 03/31/2023 Active Polyethylene Glycol [...] per dose.. 90 Capsule 0 08/16/2023 4 Active oxyCODONE HCl 5 MG Oral Tablet (Oxy IR)Indications:Ch ronic pelvic pain in female,Gastropare sis,Malfunction of jejunostomy tube (HCC) Take 1 Tablet by mouth every 6 hours as needed for Pain, Severe (No more than 4 doses in 24 hours.). Must last 14 days. 54 Tablet 0 08/29/2023 Active oxyCODONE HCl 5 MG Oral Tablet (Oxy IR)Indications:Ch ronic pelvic pain in female,Gastropare sis,Malfunction of jejunostomy tube (HCC) Take 1 Tablet by mouth every 6 hours as needed for Pain, Severe (No more than 4 doses in 24 hours.). Must last 14 days. 54 Tablet 0 08/17/2023 4 Discontinue d(Refill) documented as of this encounter (statuses as of 08/29/2023) Active Problems Problem Noted Date Diagnosed Date [...] as of this encounter (statuses as of 08/29/2023) Resolved Problems Problem Noted Date Diagnosed Date [...] as of this encounter (statuses as of 08/29/2023) Immunizations Name Administration Dates Next Due DTaP Dipth/Tet/Acell Pertussis (Infanrix), Peds 01/18/2007,07/03/2002,04/18/2002,11/07 HIB PRP-OMP, 3 dose (Pedvax) 07/03/2002,04/18/20 02,2001 Hep A - Hepatitis A (ped/ado le, 1-18 Yrs) 02/28/2016,09/29/2006 Hepatitis B, 0-19 yrs 01/18/2007,07/03/2002,050 06/2001 IPV - Polio Virus Vaccine (Inact) [...] Telephone Encounter - Kinjal Reynoso PA-C - 08/29/2023 9:47 PM EDTSigned Prescriptions: Disp Refills oxyCODONE HCl 5 MG Oral Tablet (Oxy IR) 54 Tab*0 Sig: Take 1 Tablet by mouth every 6 hours as needed for Pain, Severe (No more than 4 doses in 24 hours.). Must last 14 days. Authorizing Provider: KINJAL REYNOSO * Telephone Encounter - Nicole Omalley [facility] - 08/28/2023 10:34 AM EST Pending Prescriptions: Disp Refills oxyCODONE HCl 5 MG Oral Tablet (Oxy IR) 54 Tab*0 Sig: Take 1 Tablet by mouth every 6 hours as needed for Pain, Severe (No more than 4 doses in 24 hours.). Must last 14 days. * Telephone Encounter - Nicole Omalley [facility] - 08/28/2023 10:33 AM EST I have reviewed the patients controlled substance dispensing history in the Prescription Drug Monitoring Program in compliance with the [facility] regulations before prescribing a controlled substance. PDMP checked on 08/28/2023. Pending Prescriptions: Disp Refills oxyCODONE HCl 5 MG Oral Tablet (Oxy IR) 54 Tab*0 Sig: Take 1 Tablet by mouth every 6 hours as needed for Pain, Severe (No more than 4 doses in 24 hours.). Must last 14 days. Last Visit: 08/27/2023 (in office), 09/10/2022 (telemedicine) Next Visit: 12/08/2023 Date medication was last filled: 08/17/23 Date medication is due for refill: 08/30/23 Pharmacy: [facility] Is this request for a [...] request. Please approve if appropriate. Thank you, Nicole Omalley, PharmD Clinical Pharmacist [facility] ([facility]) (Formerly Telepharmacy) [phone] 08/28/2023, 10:33 AM documented in this encounter Plan of Treatment Upcoming Encounters Date Type Department Care Team (Late st Contact Info) Description 09/20/2023 12:40 PM EDT Office Visit Nutrition & Weight Management, [facility] [address] [address] Cee Santizo PA-C [address] [place] [place] [address] 12/08/2023 5:20 PM EDT Office Visit [facility] [place] [address] [place] [phone] Kinjal Reynoso PA-C [email or web address] [phone] Health Maintenance Due Date Last Done Comments GARDASIL-HPV IMMUNIZATION SE KIM (1 - 3-dose series) 2016 Yearly Wellness Visit 01/03/2023 01/03/2022 , 03/29/2020, 02/22/2019, Additional history exists COVID-19 Vaccine (1 - 2022-2 4 season) [...] this encounter Medical Devices Implanted Type Area Molding Supervisor Device Identifier Shelf Expiration Date Model / Serial / Lot Port Implant W/8f Poly Cath - [id number] Implanted:Qty : 1 on 05/18/2023 by Juan Jose Connell, DO at OR [facility] Right: Chest CR BARD : PERIPHERAL VASCULAR [id number] 11/18/2024 [id number] / / [id number] documented as of this encounter Visit Diagnoses [...] the patient have Health Care Power of Paper Twister? No Care Teams Self Storage Manager Relationship Specialty Start Date End Date Kinjal Reynoso PA-C [address] [phone] PCP - General Physician Construction Worker 11/05/22 documented as of this encounter
--- OUTSIDE RECORDS SUMMARY | 2024-01-01 09:17 | External Medical Summary ---
Author Name Unknown Address Unknown Organization K1F:LABORATORY [facility] - [address] [place] [address] Laboratory Report Ordering Provider Test Date Status KASANDRA DELGADO 2023 02:01:52 Final Observation Date Value Abnormality Reference (Units ) Status WBC, Total 2023 02:01:52 4.71 4.00-10.80 (K/uL) Final RBC 2023 02:01:52 4.37 3.85-5.15 (M/uL) Final Hemoglobin 2023 02:01:52 13.2 12.0-15.3 (g/dL) Final HCT 2023 02:01:52 37.8 36.0-45.2 (%) Final MCV 2023 02:01:52 86.5 81.5-97.5 (fL) Final MCH 2023 02:01:52 30.2 27.0-34.0 (pg) Final MCHC 2023 02:01:52 34.9 32.0-36.0 (g/dL) Final RDW 2023 02:01:52 12.7 11.5-15.5 (%) Final Platelets 2023 02:01:52 233 140-400 (K/uL) Final MPV 2023 02:01:52 10.2 6.6-11.1 (fL) Final Nucleated erythrocytes/100 leukocytes [Ratio] in Blood by Automated count 2023 02:01:52 0 <=0 (/100 WBCs) Final Performing Location LABORATORY [facility] - [address] [place] [address]
--- OUTSIDE RECORDS SUMMARY | 2024-01-01 09:17 | External Medical Summary ---
Author Name Unknown Address Unknown Organization K1F:LABORATORY [facility] - [address] [facility] [place] [address] Laboratory Report Ordering Provider Test Date Status KASANDRA DELGADO 2023 02:01:52 Final Observation Date Value Abnormality Reference (Units ) Status BUN 2023 02:01:52 9 6-20 (mg/dL) Final Creatinine 2023 02:01:52 0.6 0.5-1.0 (mg/dL) Final Glomerular filtration rate/1.73 sq M.predicted [Volume Rate/Area] in Serum, Plasma or Blood by Creatinine-based formula (CKD-EPI) 2023 02:01:52 >90 >=60 (mL/min) Final eGFR is calculated based on the CKD-EPI 2020 equation SODIUM 2023 02:01:52 140 135-146 (m mol/L) Final Potassium 2023 02:01:52 3.7 3.5-5.1 (m mol/L) Final Cl 2023 02:01:52 108 Above high normal 98 -107 (mmol/L) Final CO2 2023 02:01:52 21 Below low normal 22- 32 (mmol/L) Final Anion gap 2023 02:01:52 11 7-15 (mmol /L) Final Glucose 2023 02:01:52 100 70-120 (mg /dL) Final Albumin 2023 02:01:52 3.8 3.8-5.0 (g /dL) Final AST (Aspartate aminotransferase) 2023 02:01:52 14 10-35 (U/L) Fin al Alk Phos 2023 02:01:52 77 35-130 (U/ L) Final Bilirubin, Total 2023 02:01:52 <0.2 <=1 .2 (mg/dL) Final Calcium 2023 02:01:52 8.9 8.4-10.2 ( mg/dL) Final Protein 2023 02:01:52 6.6 6.0-8.3 (g /dL) Final ALT (Alanine aminotransferase) 2023 02:01:52 10 10-35 (U/L) Spencer esteves Performing Location LABORATORY [facility] - [facility] [address] [place] [address]
--- OUTSIDE RECORDS SUMMARY | 2024-01-01 09:17 | External Medical Summary ---
Author Name Unknown Address Unknown Organization K1F:LABORATORY [facility] - [address] [place] [address] Laboratory Report Ordering Provider Test Date Status KASNADRA DELGADO 2023 02:01:52 Final Observation Date Value Abnormality Reference (Units ) Status SYNC LEUKOCYTES IN BLOOD BY AUTOMATED COUNT 2023 02:01:52 4.71 4.00-10.80 (K/uL) Final Segs 2023 02:01:52 40.4 40.0-75.0 (%) Final Lymphs % 2023 02:01:52 49.9 Above high normal 18.0-42.0 (%) Final Monos 2023 02:01:52 7.6 1.0-11.0 (%) Final Eosinophils 2023 02:01:52 1.7 0.0-6.0 (%) Final Basos 2023 02:01:52 0.2 0.0-2.0 (%) Final Immature Granulocyte, Percent 2023 02:01:52 0.2 0.0-2.0 (%) Final Absolute Segs 2023 02:01:52 1.90 1.80-7.70 (K/uL) Final Lymphs, absolute 2023 02:01:52 2.35 1.00-4.80 (K/ul) Final Monos, Abs 2023 02:01:52 0.36 0.00-1.10 (K/uL) Final Eos, Abs 2023 02:01:52 0.08 0.00-0.70 (K/uL) Final Basos, Abs 2023 02:01:52 0.01 0.00-0.20 (K/uL) Final Immature Granulocytes, Number 2023 02:01:52 0.01 0.00-0.20 (K/uL) Final Performing Location LABORATORY [facility] - [address] [place], [place] [address]catie Nelson. [place] [address]
--- OUTSIDE RECORDS SUMMARY | 2024-01-01 09:17 | External Medical Summary ---
Author Name Unknown Address Unknown Organization K1F:LABORATORY [facility] - [address] [place] [address] Laboratory Report Ordering Provider Test Date Status KASANDRA DELGADO 2023 02:01:52 Final Observation Date Value Abnormality Reference (Units ) Status Lactic Acid 2023 02:01:52 1.0 0.4-2.0 (mmol/L) Final Performing Location LABORATORY [facility] - [address] [place] [address]
--- OUTSIDE RECORDS SUMMARY | 2024-01-01 09:17 | External Medical Summary ---
Author Name Unknown Address Unknown Organization K1F:LABORATORY [facility] - [address] [place] [address] Laboratory Report Ordering Provider Test Date Status KASANDRA DELGADO 2023 02:01:52 Final Observation Date Value Abnormality Reference (Units ) Status Lipase 2023 02:01:52 26 13-60 (U/L ) Final Performing Location LABORATORY [facility] - [address] [place] [address]
--- OUTSIDE RECORDS SUMMARY | 2024-01-01 09:17 | External Medical Summary ---
Author Name Unknown Address Unknown Organization K01:LABORATORY [facility] - [facility] [address] [facility] [address] [facility] [address] Laboratory Report Ordering Provider Test Date Status MORISCHANDRAKANT 2023 10:15:57 Final Cutoff Concentrations:
D rug Level
Codeine 40 ng/mL
Morphine 40 ng/mL
Hydrocodone 40 ng/mL
Hydromorphone 40 ng/mL
Dihydrocodeine 40 ng/mL
Oxycodone 50 ng/mL
Oxymorphone 50 ng/mL

This test was developed and its performance characteristics determined by [employer]. It has not been cleared or approved by the [place] Food and Drug Administration. Observation Date Value Abnormality Reference (Units ) Status METHODOLOGY 2023 10:15:57 LC-MS/MS Final Codeine 2023 10:15:57 Negative Negative Final Morphine, Urine confirmatory 2023 10:15:57 861 Above high normal Negative (ng/mL) Final HYDROcodone cutoff [Mass/volume] in Urine for Confirmatory method 2023 10:15:57 Negative Negative Final HYDROmorphone [Mass/volume] in Urine 2023 10:15:57 Negative Negative Final Dihydrocodeine [Mass/volume] in Urine by Confirmatory method 2023 10:15:57 Negative Negative Final oxyCODONE cutoff [Mass/volume] in Urine for Confirmatory method 2023 10:15:57 372 Above high normal Negative (ng/mL) Final oxyMORphone cutoff [Mass/volume] in Urine for Confirmatory method 2023 10:15:57 544 Above high normal Negative (ng/mL) Final Performing Location LABORATORY [facility] - [facility] [address]
--- OUTSIDE RECORDS SUMMARY | 2024-01-01 09:17 | External Medical Summary ---
Author Name Unknown Address Unknown Organization K1F:LABORATORY [facility] - [address] [place] [address] Laboratory Report Ordering Provider Test Date Status DIANA CAPPS 09/07/2023 04:32:00 Final Observation Date Value Abnormality Reference (Units ) Status BUN 09/07/2023 04:32:00 4 Below low normal 6-20 (mg/dL) Final Creatinine 09/07/2023 04:32:00 0.7 0.5-1.0 (mg/dL) Final Glomerular filtration rate/1.73 sq M.predicted [Volume Rate/Area] in Serum, Plasma or Blood by Creatinine-based formula (CKD-EPI) 09/07/2023 04:32:00 >90 >=60 (mL/min) Final eGFR is calculated based on the CKD-EPI 2020 equation SODIUM 09/07/2023 04:32:00 140 135-146 (m mol/L) Final Potassium 09/07/2023 04:32:00 3.2 Below low normal 3.5 -5.1 (mmol/L) Final Cl 09/07/2023 04:32:00 106 98-107 (mm ol/L) Final CO2 09/07/2023 04:32:00 22 22-32 (mmo l/L) Final Anion gap 09/07/2023 04:32:00 12 7-15 (mmol /L) Final Glucose 09/07/2023 04:32:00 91 70-120 (mg /dL) Final Calcium 09/07/2023 04:32:00 8.9 8.4-10.2 ( mg/dL) Final Performing Location LABORATORY [facility] - [address] [place] [address]
--- OUTSIDE RECORDS SUMMARY | 2024-01-01 09:17 | External Medical Summary ---
Author Name Unknown Address Unknown Organization K1F:LABORATORY [facility] - [address] [place] [address] Laboratory Report Ordering Provider Test Date Status KASANDRA DELGADO 2023 02:01:52 Final Observation Date Value Abnormality Reference (Units ) Status Phosphate 2023 02:01:52 3.7 2.5-4.8 (m g/dL) Final Performing Location LABORATORY [facility] - [address] [place] [address]
--- OUTSIDE RECORDS SUMMARY | 2024-01-01 09:17 | External Medical Summary | Summary of Care ---
Author Name Unknown Organization [facility] Address [address] [place] [address] Phone [phone] Care Team Providers Care Javascript Programmer Name Role Phone Edgardo Kinjal Britt PA-C Primary Care Provider [phone] Reason for Visit * Reason Comments Abdominal Pain * Auth/Cert Specialty Diagnoses / Procedures Referred By Contdulce t Referred To Contact [facility] [address] [place] [address] Phone: [phone] Emergency Medicine [address] [address] Referral ID Status Reason Start Date Expiration Date Visits Re quested Visits Authorized [id number] Encounter Details Date Type Department Care Team (Late st Contact Info) Description 2023 12:44 AM EDT - 09/07/2023 2:48 PM EDT Emergency 5A [facility] 5th Floor [address] [place] [address] Zachery Morales DO [address] [place] [address] Denise Mckeon MD [address] [place] [id number] Tish Gagnon MD [address] [place] [address] Hospitalist Services [place] [address] Pt Handout (on AVS) Discharge Disposition: Home - Self Care Allergies [...] OPIOID OVERDOSE - SEEK IMMEDIATE MEDICAL ATTENTION. [email or web address] Each 3 03/31/2023 Active Polyethylene Glycol [...] pain in female,Gastroparesis ,Malfunction of jejunostomy tube ([facility]) Take 1 Tablet by mouth every 6 [...] Sign Reading Time Taken Comments Blood Pressure 126/73 09/07/2023 7:19 AM EDT Pulse 56 09/07/2023 7:19 AM EDT Temperature 37.1 C (98.8 F) 09/07/2023 7:19 AM ED T Respiratory Rate 16 2023 11:50 PM EDT Oxygen Saturation 100% 09/07/2023 7:19 AM EDT Inhaled Oxygen Concentration - - Weight 74.8 kg (165 lb) 2023 7:12 AM EDT Height 157.5 cm (5' 2") 2023 7:12 AM EDT Body Mass Index 30.18 2023 7:12 AM EDT documented in this [...] of this encounter Discharge Instructions * Discharge Instr - AVS* Rafael Hunter MD - 09/07/2023 2:02 PM EDT Discharge Date: 09/07/2023 The information below provides you with the instructions and the list of medications you need to betaking following discharge from the hospital. If you have any questions, please ask before leaving. If you have questions after leaving, you can reach us at the numbers below. YOUR HOSPITAL PROVIDERS: Discharging Provider: Tish Gagnon MD Provider Department: Hospital Medicine To reach this Provider Wednesday through Wednesday (8:00 AM to 4:30 PM) for any questions or test results: Call [phone] For after-hours concerns: Call [phone] and have your provider paged, or the provider pediatric oncology nurse for the Department of Hospital Medicine paged. [...] available, you can go to your local [facility] or [facility] during their business hours. In an EMERGENCY situation: Call 911 or go to the nearest emergency room. A BRIEF SUMMARY OF YOUR HOSPITAL STAY: You came to the hospital with: complaint of nausea and vomiting Your main diagnosis at discharge was: same Operations & Procedures performed: none Complications: none applicable Inpatient test results that are pending at discharge: none Advance Directive Documented: Advance Directive Does the Patient have an Advance Directive? No YOUR FOLLOW UP APPOINTMENTS: Primary Care Provider Information: PCP: Kinjal Reynoso PA-C [address] [facility] [address] (office) [phone] (fax) An appointment was requested with your PCP (Kinjal Reynoso PA-C) within 3 days. (Please take this form to this visit with your primary care physician.) You need the following studies in the future: none INSTRUCTIONS: Diet: Orders Placed This Encounter Procedures Adult Complex Diet : Full Liquid --- Lactose Controlled Advance to prior to admission diet Activity: No restrictions and As tolerated Additional Instructions: - Call your primary care physician or seek medical attention if your symptoms worsen. documented in this encounter H&P Notes * Denise Mckeon MD - 2023 6:02 AM EDT Images from the original note were not included. [facility] PRESENTING PROBLEM: Nausea, vomiting HPI: Patient is a 22 yo lady with history of gastroparesis for the last couple of years who had a J-tube placed in [facility] and removed 17 days ago after recurrent malfunction and constant abdominal pain. Patient states since the J-tube was removed, she is doing worse and unable to tolerate any PO intake. She is constantly having nausea and vomiting. She would like to avoid the J-tube but she is unable to keep any PO intake. Denies fever, chills, diarrhea, chest pain, shortness of breath. Subjective Review of Systems Constitutional: Negative for chills and fever. HENT: Negative for ear pain and sore throat. Eyes: Negative for pain and visual disturbance. Respiratory: Negative for shortness of breath, cough Cardiovascular: Negative for chest pain and palpitations. Gastrointestinal: Positive for abdominal pain, nausea, vomiting Genitourinary: Negative for dysuria and hematuria. Musculoskeletal: Negative for arthralgias and back pain. Skin: Negative for color change and rash. Neurological: Negative for seizures and syncope. All other systems reviewed and are negative. Patient's past history, medications, and allergies were reviewed. Objective Physical Exam Most Recent Vital Signs: BP: 119 mmHg/93 mmHg (09/06/23 0530) Pulse: 88 (09/06/23 0530) Temp: 36 C (09/06/23 0044) Temp Summary: Temp Min: 36 C (96.8 F) Max: 36 C (96.8 F) SpO2: 98 % (09/06/23 0044) O2 flow rate: Supplemental O2 Delivery: Constitutional: (+) ill appearing, alert, oriented x 3 HEENT: normal: normocephalic, atraumatic; no masses, tenderness, or adenopathy Eyes: sclera and conjunctiva normal Neck: supple, normal range of motion CV: normal rate and rhythm, no murmur, gallops or rub Chest: normal respiratory effort, lungs clear to auscultation and percussion Abdomen: soft, tenderness diffuse, bowel sounds present Musculoskeletal: (-) negative Extremities: no clubbing, cyanosis, or edema, otherwise grossly normal, warm, and dry Skin: dry, intact: Neuro: alert, oriented to person, place, and time, normal mental status exam Psych: anxious Implanted IV Device Right Chest (Active) Number of days: 22 STUDIES: Encounter Orders Labs and other studies reviewed with pertinent findings noted below: Latest Reference Range & Units 09/06/23 02:01 Sodium 135 - 146 mmol/L 140 Potassium 3.5 - 5.1 mmol/L 3.7 Chloride 98 - 107 mmol/L 108 (H) CO2 22 - 32 mmol/L 21 (L) BUN 6 - 20 mg/dL 9 Creatinine 0.5 - 1.0 mg/dL 0.6 Estimated Glomerular Filtration Rate >=60 mL/min >90 Anion Gap 7 - 15 mmol/L 11 Glucose 70 - 120 mg/dL 100 Calcium 8.4 - 10.2 mg/dL 8.9 Magnesium 1.5 - 2.6 mg/dL 2.1 Phosphorus 2.5 - 4.8 mg/dL 3.7 Lactate 0.4 - 2.0 mmol/L 1.0 Protein 6.0 - 8.3 g/dL 6.6 Lipase 13 - 60 U/L 26 Latest Reference Range & Units 09/06/23 02:01 WBC 4.00 - 10.80 K/uL 4.71 RBC 3.85 - 5.15 M/uL 4.37 HGB 12.0 - 15.3 g/dL 13.2 HCT 36.0 - 45.2 % 37.8 MCV 81.5 - 97.5 fL 86.5 MCH 27.0 - 34.0 pg 30.2 MCHC 32.0 - 36.0 g/dL 34.9 RDW 11.5 - 15.5 % 12.7 PLT 140 - 400 K/uL 233 MPV 6.6 - 11.1 fL 10.2 CBC WITH WBC DIFFERENTIAL Rpt ! Latest Reference Range & Units 09/06/23 02:01 Albumin 3.8 - 5.0 g/dL 3.8 AST 10 - 35 U/L 14 ALT 10 - 35 U/L 10 Alkaline Phosphatase 35 - 130 U/L 77 Bilirubin, Total <=1.2 mg/dL <0.2 IMPRESSION: Principal Problem: Gastroparesis Active Problems: Gastroesophageal reflux disease with esophagitis without hemorrhage Adjustment disorder with depressed mood PTSD (post-traumatic stress disorder) Illness anxiety disorder Malfunction of jejunostomy tube (HCC) Resolved Problems: * No resolved hospital problems. * Assessment: Patient is a 22 yo lady with history of gastroparesis for the last couple of years who had a [facility] in [facility] and removed 17 days ago after recurrent malfunction and constantabdominal pain -Gastroparesis -Abdominal pain -PTSD -Depression PLAN: -Med-surg observation -IVF -Consult GI, Surgery to evaluate options and possible re-insertion of J-tube -Will try IV Erythromycin -Child Care Centre Manager consult. Consider TPN in the meanwhile -Zofran IV and Phenergan suppository PRN -NPO -Pain control I have reviewed the labs and imaging and noted for the above findings. I have reviewed the chart. I spent 75 minute for the patient care, more than half my time was spent reviewing the chart, lab results, imaging and studies, counseling and coordinating care for the patient. I discussed the plan of care with the ED attending and answered all questions that the patient has. PHARMACOLOGIC VTE PROPHYLAXIS:hEParin CODE STATUS: Full Code EXPECTED DISCHARGE DATE: No information available documented in this encounter Consult Notes * Vicki Roberts PA-C - 2023 3:22 PM EDTAssociated Order(s): GASTROENTEROLOGY CONSULT IP CONSULT - Gastroenterology [facility] [place] [id number] Name: Anirudh Peñaloza Location: [facility] [id number]-[id number]/D Date: 2023 Time: 3:22 PM REQUESTING SERVICE: Medicine REASON FOR CONSULT: J tube HPI: Anirudh Peñaloza is a 22 year old female with PMhx as listed below. This is a very complex patient with history of endometriosis s/p total hysterectomy, depression, anxiety, chronic abdominal pain on chronic opiates, and previously was TPN dependent. She has had manyER visit and hospital admissions at varying different hospitals. She reports ongoing chronic abdominal pain as well as nausea and vomiting that has not responded to several interventions including a hypogastric nerve block. She has had extensive work up with endoscopes, ultrasounds, many CT scans, HIDA scan that have all been negative other than a gastric emptying scan showing gastroparesis though this was done while the patient was on narcotics. She also has a history of constipation. Most recently had J-tube placed and this was just removed a few weeks ago d/t abd pain. Now admitted after presenting w/ n/v, abd pain. Labs unremarkable including CBC, BMP, LFTs, lipase.Tried on antiemetics here. Pt states hasn't had any vomiting, but nausea is constant as is her abd pain. She denies recent constipation. No melena, hematochezia, hematemesis, diarrhea, fevers or chills, CP, SOB. She tells me she has been able to tolerate some PO in the recent days. Last CTAP 2023: 1. Percutaneous jejunostomy tube is appropriately positioned. Contrast is seen within the bowel. 2. Minimal inflammation about the jejunum near the catheter insertion site, may be chronic. KUB 2022: The tip of the NG tube is in the stomach. CT Head 2023: No acute intracranial abnormality. Mild paranasal sinus mucosal thickening, as above. HIDA 2022: Patent cystic and common bile ducts. No scintigraphic evidence of acute cholecystitis KUB 2022: No acute abnormality. ABD US 2022: No evidence of acute cholecystitis. CTAP 2022: No acute findings to account for the patient's clinical symptoms. EGD 2021: The Z-line was found 35 cm from the incisors. LA Grade A (one or more mucosal breaks less than 5 mm, not extending between tops of 2 mucosal folds) esophagitis with no bleeding was found. There were multiple linear erosions in the fundus of the stomach, consistent with pt's history of vomiting. There were stripes of erythema in the antrum. The stomach was otherwise normal. The duodenal mucosa was normal. There was bilious fluid in the duodenum; the appearance of the bile may be consistent with sludge. Biopsies taken form duodenum and from stomach. Colonoscopy 2021: Preparation of the colon was fair. - The entire examined colon is normal on direct and retroflexion views. - No specimens collected. Endometrial Biopsies 2018: Biopsy endometrial implant: Fibroadipose tissue with marked pseudodecidual change and focal chronic inflammation. EGD biopsies 2021: A. Small bowel, duodenum, biopsy: -- Duodenal mucosa with no significant histopathology. -- Histologic features of celiac disease not identified. B. Stomach, biopsy: -- Gastric mucosa with mild inactive chronic gastritis. -- Negative for Helicobacter-like organisms by routine histology and immunohistochemistry. -- Negative for intestinal metaplasia. -- See comment. Comment: Immunohistochemistry (with reactive controls) using antibodies against Helicobacter pyloriis negative in part B. Family history of IBD: none Family history of GI malignancy: none HISTORY: Past Medical History: Past Medical History: Diagnosis Date Abdominal pain Asthma, exercise induced Endometriosis determined by laparoscopy 11/16/2017 Hx of fall age 5 cut left eyebrow: sutures INFORMATION several concussions Jejunostomy tube in situ (HCC) S/P laparoscopic appendectomy 04/30/2021 S/P laparoscopic hysterectomy 04/30/2021 with bilateral salpingectomy Severe protein-energy malnutrition (HCC) 07/25/2021 Past Surgical History: Past Surgical History: Procedure Laterality Date APPENDECTOMY W/OTHER PROCEDURE 04/30/2021 COLONOSCOPY, DIAGNOSTIC (RECTUM) N/A 08/14/2021 poor prep/normal/COLONOSCOPY FLEXIBLE PROXIMAL DIAGNOSTIC performed by Jerardo Erwin MD at ENDOSCOPY [facility] EGD, FLEXIBLE, DIAGNOSTIC N/A 07/21/2021 LA grade A esophagitis/multiple linear fundus of stomach/stripes of erythema in antrum/sludge duodenum/biopsies normal/ESOPHAGOGASTRODUODENOSCOPY (EGD), FLEXIBLE, TRANSORAL, DIAGNOSTIC performed by Eulalio Suarez MD at OR [facility] FLUORO GUIDED NEEDLE PLACEMENT N/A 07/31/2022 FLUOROSCOPIC GUIDANCE FOR NEEDLE PLACEMENT performed by Fredy Denton DO at OR [facility] FLUORO GUIDED NEEDLE PLACEMENT N/A 08/04/2022 FLUOROSCOPIC GUIDANCE FOR NEEDLE PLACEMENT performed by Fredy Denton DO at OR [facility] INJ, ANESTH;SUP HYPOGAS PLEX N/A 07/24/2021 INJECTION ANESTHETIC SYMPATHEITC NERVE SUPERIOR HYPOGASTRIC PLEXUS performed by Tk Aden MD at OR [facility] INSER TUNN ACC DEV;5 YRS/OLDER Right 05/18/2023 INSERT TUNNELED CENTRAL VENOUS ACCESS WITH SUBQ PORT performed by Juan Jose Connell DO at OR [facility] IR GASTROINTESTINAL OSTOMY 08/09/2023 IR GASTROINTESTINAL OSTOMY 08/10/2023 IR TUBE REPLACEMENT GASTROSTOMY PERCUTANEOUS OR CECOSTOMY Left 06/02/2023 PERCUTANEOUS REPLACE GASTROSTOMY OR CECOSTOMY TUBE WITH FLUORO performed by Juan Jose Connell DO at OR [facility] IR TUBE REPLACEMENT GASTROSTOMY PERCUTANEOUS OR CECOSTOMY Left 07/08/2023 PERCUTANEOUS REPLACE GASTROSTOMY OR CECOSTOMY TUBE WITH FLUORO performed by Luis Finn MD at OR [facility] LAP;W/HYSTERECTOMY 04/30/2021 with BS for endometriosis LAPAROSCOPY DIAGNOSTIC N/A 11/16/2017 LAPAROSCOPY DIAGNOSTIC performed by Josep Garcia MD at OR [facility] Social History: Social History Tobacco Use Smoking status: Never Passive exposure: Never Smokeless tobacco: Never Vaping Use Vaping Use: Every day Substances: Nicotine, Flavoring Devices: Pre-filled pod Substance Use Topics Alcohol use: Not Currently Comment: occasional Drug use: Not Currently Frequency: 7.0 times per week Comment: medical, within past month Family History: Family History Problem Relation Age of Onset Migraines Mother Irritable Bowel Syndrome Mother GI problems Father Ulcer No Known Problems Sister No Known Problems Brother Hypertension Grandmother (Maternal) Thyroid Disorder Grandmother (Paternal) Other (othe) Aunt (Maternal) Endometriosis Allergies: Benadryl [diphenhydramine], Compazine [prochlorperazine], Droperidol, Haldol [haloperidol], Hydroxyzine, Ondansetron, Reglan [metoclopramide], and Tigan [trimethobenzamide] ROS: A complete review of systems is as stated above, otherwise, all others negative. PHYSICAL EXAMINATION: Most Recent Vital Signs: BP: 131 mmHg/83 mmHg (09/06/231515) Pulse: 65 (09/06/231515) Temp: 37.28 C (09/06/231515) Temp Summary: Temp Min: 36 C (96.8 F) Max: 37.3 C (99.1 F) SpO2: 100 % (09/06/231515) O2 flow rate: Supplemental O2 Delivery: Room Air, None (09/06/231515) Vital Signs Last 24 Hours: Systolic BP: Most Recent Systolic BP Av.1 mmHg Min: 107 mmHg Max: 145 mmHg Temperature: Most Recent Temperature Av.6 C Min: 36 C Max: 37.28 C Pulse: Pulse Av.8 Min: 65 Max: 88 Respirations: Resp Av.2 Min: 16 Max: 20 SpO2: SpO2 Av.5 % Min: 98 % Max: 100 % Constitutional: no acute distress HEENT: normal Eyes: no scleral icterus Neck: supple, normal range of motion CV: normal rate and rhythm, no murmur, gallops or rub Chest: normal respiratory effort, breath sounds normal Abdomen: soft, bowel sounds normal, no masses, diffusely moderate tender shameka light palpation Skin: warm and dry, no rashes Neuro: normal mental status exam Psych: normal mood and affect, memory normal LABS: Labs reviewed. Recent Results (from the past 24 hour(s)) COMPREHENSIVE METABOLIC PANEL Collection Time: 09/06/23 2:01 AM Result Value Ref Range BUN 9 6 - 20 mg/dL Creatinine 0.6 0.5 - 1.0 mg/dL Estimated Glomerular Filtration Rate >90 >=60 mL/min Sodium 140 135 - 146 mmol/L Potassium 3.7 3.5 - 5.1 mmol/L Chloride 108 (H) 98 - 107 mmol/L CO2 21 (L) 22 - 32 mmol/L Anion Gap 11 7 - 15 mmol/L Glucose 100 70 - 120 mg/dL Albumin 3.8 3.8 - 5.0 g/dL AST 14 10 - 35 U/L Alkaline Phosphatase 77 35 - 130 U/L Bilirubin, Total <0.2 <=1.2 mg/dL Calcium 8.9 8.4 - 10.2 mg/dL Protein 6.6 6.0 - 8.3 g/dL ALT 10 10 - 35 U/L MAGNESIUM Collection Time: 09/06/23 2:01 AM Result Value Ref Range Magnesium 2.1 1.5 - 2.6 mg/dL PHOSPHORUS Collection Time: 09/06/23 2:01 AM Result Value Ref Range Phosphorus 3.7 2.5 - 4.8 mg/dL LACTATE WITH REFLEX IF ABNORMAL Collection Time: 09/06/23 2:01 AM Result Value Ref Range Lactate 1.0 0.4 - 2.0 mmol/L LIPASE Collection Time: 09/06/23 2:01 AM Result Value Ref Range Lipase 26 13 - 60 U/L CBC Collection Time: 09/06/23 2:01 AM Result Value Ref Range WBC 4.71 4.00 - 10.80 K/uL RBC 4.37 3.85 - 5.15 M/uL HGB 13.2 12.0 - 15.3 g/dL HCT 37.8 36.0 - 45.2 % MCV 86.5 81.5 - 97.5 fL MCH 30.2 27.0 - 34.0 pg MCHC 34.9 32.0 - 36.0 g/dL RDW 12.7 11.5 - 15.5 % PLT 233 140 - 400 K/uL MPV 10.2 6.6 - 11.1 fL nRBCs 0 <=0 /100 WBCs DIFFERENTIAL, AUTOMATED Collection Time: 09/06/23 2:01 AM Result Value Ref Range WBC 4.71 4.00 - 10.80 K/uL Neutrophils % 40.4 40.0 - 75.0 % Lymphocytes % 49.9 (H) 18.0 - 42.0 % Monocytes % 7.6 1.0 - 11.0 % Eosinophils % 1.7 0.0 - 6.0 % Basophils % 0.2 0.0 - 2.0 % Immature Granulocytes % 0.2 0.0 - 2.0 % Absolute Neutrophils 1.90 1.80 - 7.70 K/uL Absolute Lymphocytes 2.35 1.00 - 4.80 K/ul Absolute Monocytes 0.36 0.00 - 1.10 K/uL Absolute Eosinophils 0.08 0.00 - 0.70 K/uL Absolute Basophils 0.01 0.00 - 0.20 K/uL Absolute Immature Granulocytes 0.01 0.00 - 0.20 K/uL SARS-COV-2 (COVID-19), NAAT Collection Time: 09/06/23 5:13 AM Result Value Ref Range SARS-CoV-2 (COVID-19) Result Negative Negative TOXICOLOGY, URINE SCREEN W/ CONFIRMATION Collection Time: 09/06/23 10:15 AM Result Value Ref Range Amphetamines Screen, U Negative Negative Benzodiazepines Screen, U Negative Negative Cannabinoids Screen, U Positive (A) Negative Cocaine Metabolite Screen, U Negative Negative Fentanyl Screen, U Negative Negative Hydrocodone Screen, U Negative Negative Methadone Metabolite Screen, U Negative Negative Morphine/Codeine Screen, U Positive (A) Negative Oxycodone Screen, U Positive (A) Negative IMPRESSION: Anirudh Peñaloza is a 22 year old female history of endometriosis s/p total hysterectomy, chronic abdominal pain on scheduled narcotic analgesia, s/p hypogastric nerve block without relief of pain, depression, anxiety, Admitted w/ n/v. We are consulted for J-tube; she recently had this IR placed at [place] then was recently removed d/t abd pain. Abd soft, diffuse moderately tender abd. RECOMMENDATIONS/PLAN: - Trial of Emend x 1 - Recommend f/u with general surgery/IR if J-tube is being consideration (either here or at [place]) - Consider bowel regimen given her history of constipation - Antiemetics PRN - Advance diet as tolerated - GI will sign off, please call with questions. Please see attending addendum for further discussions/recommendations. I have discussed the case with my attending, Dr Moralez. Associated attestation - Leon Moralez MD - 2023 7:54 PM EDT I have reviewed the advanced practitioner's documentation on the date of service referenced in note, and I agree with, and take responsibility for the plan of care. Complicated case of endometriosis, multiple surgeries, gastroparesis, opioid use, s/p Jejunostomy. Did not tolerate it and it was removed due to dislodgement. Admitted with nausea and vomiting. Recommend: Trial of Emend. GI does not place Jejunostomy tubes, please consult surgery if deemed needed. Small frequent meals. I spent a total of 60 minutes coordinating, documenting, and providing care for this patient excluding time spent in the performance of separately billed services or time spent by another provider/QHP. * Ivett Sood, RYANN - 2023 10:28 AM EDTAssociated Order(s): NUTRITION SERVICES (DIETITIAN) CONSULT IP; NUTRITION SERVICES (DIETITIAN) CONSULT IP CLINICAL NUTRITION CONSULT/PROGRESS NOTE [address] [address] Name: Anirudh Peñaloza Location: [facility] 3B-3018/D Date: 2023 Time: 10:29 AM How patient was identified (select 2): date and Name Discussed in interdisciplinary rounds: No Anirudh Peñaloza is a 22 year old female being seen for consult by provider; TPN recommendations Primary Diagnosis: Gastroparesis Other pertinent information: Met with patient at bedside to assess nutritional status. Patient reports that she had her J-tube removed on August 19 due to abdominal pain/discomfort. Since removal, patient endorses pain when trying to eat, nausea/vomiting, and poor PO intakes. Patient states that she has no appetite/desire to eat. Patient reports constipation--she stated that she has been having fewer BM movements--noting last BM was 09/04/23--likely due to inadequate intake. Patient reported that her weight fluctuates and was unable to provide a usual body weight. Patient reported that she sawGI and that they can place a new J tube, but are waiting to see if they will place it here or send h er back to her surgeon in [place]. Discussed TPN as a temporary way to provide nutrition while new tube placement is being discussed. Patient currently has a port that could allow for TPN. However,upon further review, pt does not currently meet the criteria for TPN or PPN. Performed a nutrition focused physical exam today, patient does not present with any fat or muscle loss at this time. Patient does not currently present with malnutrition. Recommend advancing diet to see how pt does with PO intakes. NUTRITION ASSESSMENT: Past medical/surgical history and medications reviewed. Food/Nutrition-Related History Diet: NPO Previously followed diet: tf through J-tube Food Allergies/Intolerances: Lactose intolerance Adult Energy Intake: Less than 50% of estimated energy requirement for greater than 5 days (severe, acute illness). Percentage of meal intake: Patient currently NPO Oral Nutrition Supplement (ONS): None Pertinent medications/vitamins/minerals/supplements: D51 IV, pantoprazole Pertinent Biochemical Data: There are no biochemical abnormalities requiring a change in the nutrition plan of care. Nutrition-Focused Physical Findings: Appearance: WNWD Respiratory support: Supplemental O2 Delivery: Room Air, None Nasal/Oral: No issues identified Digestive: Abdominal pain/tenderness, Appetite poor, Constipation, Nausea, and Vomiting Last Bowel Movement: 09/04/23 (per pt) (09/06/23 4206) Cognition: Awake, alert and Oriented Skin: Compromise without nutrition-related implications Enteral access: None Nutrition Focused Physical Exam: NFPE completed on 09/06/23 Subcutaneous Fat Loss: No significant subcutaneous fat loss noted. Muscle Loss: No significant muscle loss noted. Anthropometrics Measurements Height: 157.5 cm (5' 2") (09/06/23 0712) Admission weight: 72.6 kg Weight: 74.8 kg (165 lb) (09/06/23 0712) BMI: 30.17 (09/06/23 0712) Usual Body Weight: 62-68 kg per EHR Rankin weight: 61.8 kg Rankin Weight Based on BMI: 24.9 Interpretation of Weight Change Prior to Admission: No recent/significant weight change Weight Changes Since Admission: N/A Nutrition Prescription: Energy needs: 25-30 Kcal/kg Kcal/day: 7105-3268 Based on current weight Protein needs: 0.8-1.0 gm/kg Protein: 60-75 Based on current weight Fluid needs: 35 ml/kg Fluid: 2618 ml/day Based on current weight Malnutrition: Malnutrition Present: No (09/06/23 6291) NUTRITION DIAGNOSIS: Suboptimal energy intake related to poor appetite, nausea/vomiting as evidenced by patient report Altered GI function related to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 health. For more information, contact the [place] [employer]. Long-term concerns With treatment, most people can manage their symptoms and keep up their normal routines. If your symptoms are moderate to severe, you may need to see your healthcare provider more often for checkups.Also, other treatments will likely be needed. Last Reviewed Date: 2021 [employer]. All rights reserved. This information is not intended as a substitute for professional medical care. Always follow your healthcare professional's instructions. * Ancillary Progress Note - ZoeAni, Curtain Framer - 2023 4:51 PM EDT CARE MANAGEMENT - ADULT INITIAL SCREENING [address] [address] Name: Anirudh Peñaloza Location: [facility] [id number] Date: 2023 Time: 4:51 PM Discussed patient with the interdisciplinary care team. This Machine Operator General performed a chart review and met with pt at bedside to complete admission screen and assessed needs for transition planning. The morning caregiver role and services were explained and emotional support was provided. Chief Complaint: Abdominal Pain Prior Living Arrangements What was your living situation prior to admission/observation?: Other (Comment);Independently (grandparents) (09/06/231645) Living Quarters: House (09/06/231645) Number of steps to enter living quarters:: 0 GRICELDA, 12 steps to second floor (09/06/231645) Do you have serious difficulty walking or climbing stairs? (5 years old or older): No (09/06/23 0716) History of falling: No (09/06/23 0808) Prior Level of Functioning Describe the patient's ability prior to admission/observation to perform ADLs: Performs independently (09/06/231645) Describe the patient's mobility status prior to admission: Patient ambulates independently (09/06/231645) Patient uses assistive device: No (09/06/231645) Caregiver Information Patient Contacts Name Relation Home Work Mobile Latrice Whyte Significant Other [phone] Debby Peñaloza Mother [phone] Car Peñaloza Father [phone] Pt came to [facility] ED on 09/06/23 d/t abdominal pain. Pt is observation for gastroparesis. Pt has consults for nutrition, general surgery, and gastroenterology. Pt is insured by [facility] Medicaid. Pt triggered in the workque for readmission risk score being 25% or greater and an abnormal tox. Pt's urine sample was collected on 09/06/23 at 1015. Pt tested positive for cannabinoids, morphine/codeine, and oxycodone. Pt is prescribed oxycodone, is on medical marijuana, and was given morphine in the hospital. Pt lives with her grandparents in a 2 story home with 0 steps to enter and 12 steps to the second floor. Pt is independent with ADL's and ambulation without an assistive device. There is a rw available in the home. Pt still has her J- tube supplies from [facility] (infinity pump and enteral feeds). [facility] told pt to keep supplies d/t possibly getting the J-tube reinserted. Pt stating that she tolerated the feeds, but the tube was irritating and causing problems and that is why it was removed. Pt provides her own transportation and she has family/friends that are able to provide transportation at discharge. Pt denies having any current in-home services. Pt had [facility] in the past for her enteral feeds.Pt plans to discharge to home and doesn't need any services at this time. Risk Stratification/Psychosocial/Care Gaps Risk Stratification Psycho Social / Medical Concerns Identified: Adjustment to illness/injury;Multiple Comorbidities;Behavioral Health Diagnosis (MH/MR) (09/06/231645) Accessed Neighborly to connect patients to social care resources: No (09/06/231645) OBRA or OPTIONS needed for placement: No (09/06/231645) Readmission Risk Score: 36.55 (09/06/23 1600) AM-PAC Score With Stairs : 24 (09/06/23 0808) Prior to Admission Services Services Prior to Admission LOCAL SALES MANAGER Services (Services received within the last 30 days with exception, Psych within last two years): Durable Medical Equipment (09/06/231645) LOCAL SALES MANAGER Durable Medical Equipment (DME) in home: Walker Rolling;Enteral Supplies (09/06/231645) DME Name: [facility] (09/06/231645) [place] Dept[employer] of Aging (PDA) Waiver Program: N/A (09/06/231645) LOCAL SALES MANAGER Transportation (Services received within the last 30 days): Family/Friends Personal Vehicle;Patient drives self (09/06/23 1646) Outpatient Machine Operator General: No care seam steamer to display Patient/Family Expectations: Return home For further screening information, please refer to the Care Management flow document. * Progress Notes - Non-Billable - Tish Gagnon MD - 2023 7:33 AM EDT 22yF w/ hx of chronic pain, ?endometriosis, hx of J tube here with intractable nausea and vomiting. Patient well known to this insurance writer from previous hospital stays. Updates to plan of care: - patient on chronic opioid 5mg QID at home, refusing oral here - low dose morphine in place - do not increase - GI consult - Gen surgery consult - Nutrition consult Updates to plan of care: Gen surg- no J tube GI = rec emend and advance diet Recommendations explained to patient in presence of primary nurse. -infuse emend -full liquid diet - dc if tolerates - low threshold for virtual sitter if needed. * Medical Necessity - Karen Daniel RN - 2023 5:48 AM EDT AdmissionCare Guideline: Abdominal Pain, Undiagnosed, Observation Based on the indications selected for the patient, the bed status of Observation was determined to be MET The following indications were selected as present at the time of evaluation of the patient: - Patient ability to maintain hydration unclear AdmissionCare documentation entered by: Karen Daniel [facility] [employer], 27th edition, Copyright 2022 [facility] [employer] All Rights Reserved. [id number] Solely for purpose of utilization review and payment; not a diagnostic tool * ED Medical Coordinator Pesticide Use Note - Dedra Salmon RN - 2023 4:30 AM EDT 0430. Pt continues to c/o abdominal pain. Dr. Morales made aware. 0651. Report called Evelyn parekh 3B to assume care of the pt at this time. documented in this encounter Plan of Treatment Upcoming Encounters Date Type Department Care Team (Late st Contact Info) Description 09/16/2023 9:00 AM EDT Office Visit [facility] [place] [address] [phone] Kinjal Reynoso PA-C [address] [phone] 09/20/2023 12:40 PM EDT Office Visit Nutrition & Weight Management, [facility] [address] [place] [id number] Cee Santizo PA-C [address] [place] [id number] 12/08/2023 5:20 PM EDT [facility] [address] [phone] Kinjal Reynoso PA-C [address] [phone] Pending Results Name Type Priority Associated Diagnoses Date /Time THC METABOLITE, URINE CONFIRMATION Lab STAT 2023 10:15 AM EDT OPIOIDS, URINE CONFIRMATION Lab STAT 2023 10:15 AM EDT Scheduled Orders Name Type Priority Associated Diagnoses Orde r Schedule THC METABOLITE, URINE CONFIRMATION Lab STAT One Time for 1 Occurrences starting 2023 until 2023 OPIOIDS, URINE CONFIRMATION Lab STAT One Time for 1 Occurrences starting 2023 until 2023 Health Maintenance Due Date Last Done Comments [...] this encounter Medical Devices Implanted Type Area Biblical Studies Professor Device Identifier Shelf Expiration Date Model / Serial / Lot Port Implant W/8f Poly Cath - [id number] Implanted:Qty : 1 on 05/18/2023 by Juan Jose Connell DO at OR [facility] Right: Chest CR BARD : PERIPHERAL VASCULAR [id number] 11/18/2024 [id number] / / [id number] documented as of this encounter Procedures Procedure Name Priority Date/Time Associated Diagnosis Comments BASIC METABOLIC PANEL Routine 09/07/2023 4:32 AM EDT PHOSPHORUS Routine 09/07/2023 4:32 AM EDT CBC Routine 09/07/2023 4:32 AM EDT MAGNESIUM Routine 09/07/2023 4:32 AM EDT TOXICOLOGY, URINESCREEN W/ CONFIRMATION STAT 2023 10:15 AM EDT SARS-COV-2 (COVID-19), NAAT STAT 2023 5:13 AM EDT LACTATE WITH REFLEX IF ABNORMAL STAT 2023 2:01 AM EDT DIFFERENTIAL, AUTOMATED STAT 2023 2:01 AM EDT COMPREHENSIVE METABOLIC PANEL STAT 2023 2:01 AM EDT CBC STAT 2023 2:01 AM EDT PHOSPHORUS Routine 2023 2:01 AM EDT LIPASE STAT 2023 2:01 AM EDT CBC STAT 2023 2:01 AM EDT MAGNESIUM STAT 2023 2:01 AM EDT documented in this encounter Results * PHOSPHORUS (09/07/2023 4:32 AM EDT) Phosphorus 4.0 2.5 - 4.8 mg/dL 09/07/2023 5:51 AM EDT LABORATORY GL Blood Venous blood specimen / Unknown Venipuncture / Unknown 09/07/2023 4:32 AM EDT 09/07/2023 5:09 AM EDT Tish Gagnon MD LAB BLOOD ORDERABL ES Performing Organization Address City/State/[facility] Co de Phone Number LABORATORY [address] [address] * MAGNESIUM (09/07/2023 4:32 AM EDT) Magnesium 2.2 1.5 - 2.6 mg/dL 09/07/2023 5:51 AM EDT LABORATORY GL Blood Venous blood specimen / Unknown Venipuncture / Unknown 09/07/2023 4:32 AM EDT 09/07/2023 5:09 AM EDT Denise Mckeon MD LAB BLOOD ORDERABL ES Performing Organization Address City/[facility]/ZIP Co de Phone Number LABORATORY [facility] [address] [place] [address] * CBC (09/07/2023 4:32 AM EDT) WBC 4.64 4.00 - 10.80 K/uL 09/07/2023 5:22 AM EDT LABORATORY [facility] RBC 4.49 3.85 - 5.15 M/uL 09/07/2023 5:22 AM EDT LABORATORY [facility] HGB 13.2 12.0 - 15.3 g/dL 09/07/2023 5:22 AM EDT LABORATORY [facility] HCT 38.8 36.0 - 45.2 % 09/07/2023 5:22 AM EDT LABORATORY [facility] MCV 86.4 81.5 - 97.5 fL 09/07/2023 5:22 AM EDT LABORATORY [facility] MCH 29.4 27.0 - 34.0 pg 09/07/2023 5:22 AM EDT LABORATORY [facility] MCHC 34.0 32.0 - 36.0 g/dL 09/07/2023 5:22 AM EDT LABORATORY [facility] RDW 12.7 11.5 - 15.5 % 09/07/2023 5:22 AM EDT LABORATORY [facility] PLT 225 140 - 400 K/uL 09/07/2023 5:22 AM EDT LABORATORY [facility] MPV 10.3 6.6 - 11.1 fL 09/07/2023 5:22 AM EDT LABORATORY [facility] nRBCs 0 <=0 /100 WBCs 09/07/2023 5:22 AM EDT LABORATORY [facility] Blood Venous blood specimen / Unknown Venipuncture / Unknown 09/07/2023 4:32 AM EDT 09/07/2023 5:08 AM EDT Denise Mckeon MD LAB BLOOD ORDERABL ES LABORATORY [facility] [address] [place] [address] * (ABNORMAL) BASIC METABOLIC PANEL (09/07/2023 4:32 AM EDT) Pathologist [facility] BUN 4(L) 6 - 20 mg/dL 09/07/2023 5:51 AM EDT LABORATORY GL Creatinine 0.7 0.5 - 1.0 mg/dL 09/07/2023 5:51 AM EDT LABORATORY GL Estimated Glomerular Filtration Rate >90 >=60 mL/min 09/07/2023 5:51 AM EDT LABORATORY GL Comment:eGFR is calculated b ased on the CKD-EPI 2020 equation Sodium 140 135 - 146 mmol/L 09/07/2023 5:51 AM EDT LABORATORY GLH Potassium 3.2(L) 3.5 - 5.1 mmol/L 09/07/2023 5:51 AM EDT LABORATORY GLH Chloride 106 98 - 107 mmol/L 09/07/2023 5:51 AM EDT LABORATORY GLH CO2 22 22 - 32 mmol/L 09/07/2023 5:51 AM EDT LABORATORY GL Anion Gap 12 7 - 15 mmol/L 09/07/2023 5:51 AM EDT LABORATORY GL Glucose 91 70 - 120 mg/dL 09/07/2023 5:51 AM EDT LABORATORY GL Calcium 8.9 8.4 - 10.2 mg/dL 09/07/2023 5:51 AM EDT LABORATORY GL Blood Venous blood specimen / Unknown Venipuncture / Unknown 09/07/2023 4:32 AM EDT 09/07/2023 5:09 AM EDT Denise Mckeon MD LAB BLOOD ORDERABL ES LABORATORY [address] [address] * (ABNORMAL) TOXICOLOGY, URINESCREEN W/ CONFIRMATION (2023 10:15 AM EDT) Pathologist [facility] Amphetamines Screen, U Negative Negative 2023 10:50 AM EDT LABORATORY GL Benzodiazepines Screen, U Negative Negative 2023 10:50 AM EDT LABORATORY GL Cannabinoids Screen, U Positive(A) Negative 2023 10:50 AM EDT LABORATORY GL Cocaine Metabolite Screen, U Negative Negative 2023 10:50 AM EDT LABORATORY GL Fentanyl Screen, U Negative Negative 2023 10:50 AM EDT LABORATORY GL Hydrocodone Screen, U Negative Negative 2023 10:50 AM EDT LABORATORY GL Methadone Metabolite Screen, U Negative Negative 2023 10:50 AM EDT LABORATORY GL Morphine/Codeine Screen, U Positive(A) Negative 2023 10:50 AM EDT LABORATORY GL Oxycodone Screen, U Positive(A) Negative 2023 10:50 AM EDT LABORATORY [facility] Urine Urine specimen obtained by clean catch procedure / Unknown Non-blood Collection / Unknown 2023 10:15 AM EDT 2023 10:24 AM EDT [facility] LABORATORY [facility] - 2023 10:50 AM EDT Cutoff Concentrations: Drug Level Amphetamines 500 ng/mL Benzodiazepines 100 ng/mL Cannabinoids 50 ng/mL Cocaine Metabolite 150 ng/mL Fentanyl 1 ng/mL Hydrocodone / Hydromorphone 300 ng/mL Methadone Metabolite 100 ng/mL Morphine / Codeine 300 ng/mL Oxycodone / Oxymorphone 100 ng/mL Screening results are presumptive and can only be used for medical purposes. Positive screening results are reflexed to confirmatory testing. Tish Gagnon MD LAB URINE ORDERABL ES LABORATORY [address] [address] * SARS-COV-2 (COVID-19), NAAT (2023 5:13 AM EDT) SARS-CoV-2 (COVID-19) Result Negative Negative 2023 5:51 AM EDT LABORATORY [facility] Comment: 2019 Novel Coronavirus not detected. This express test was developed and its performance characteristics determined by [employer]. It has not been cleared or approved [...] was developed and performance characteristics determined by [employer]. The validation of alternate specimen types has not been cleared or approved by the U.S. Food and Drug Administration (FDA). It has been determined that such clearance is not necessary. Upper Respiratory Mid-turbinate nasal swab / Unknown Non-blood Collection / Unknown 2023 5:13 AM EDT 2023 5:13 AM EDT Zachery Morales DO LAB MICRO - GENERAL ORDERABLES LABORATORY [address] [address] * (ABNORMAL) DIFFERENTIAL, AUTOMATED (2023 2:01 AM EDT) WBC 4.71 4.00 - 10.80 K/uL 2023 2:06 AM EDT LABORATORY [facility] Neutrophils % 40.4 40.0 - 75.0 % 2023 2:06 AM EDT LABORATORY [facility] Lymphocytes % 49.9(H) 18.0 - 42.0 % 2023 2:06 AM EDT LABORATORY [facility] Monocytes % 7.6 1.0 - 11.0 % 2023 2:06 AM EDT LABORATORY [facility] Eosinophils % 1.7 0.0 - 6.0 % 2023 2:06 AM EDT LABORATORY [facility] Basophils % 0.2 0.0 - 2.0 % 2023 2:06 AM EDT LABORATORY GLH Immature Granulocytes % 0.2 0.0 - 2.0 % 2023 2:06 AM EDT LABORATORY GL Absolute Neutrophils 1.90 1.80 - 7.70 K/uL 2023 2:06 AM EDT LABORATORY GL Absolute Lymphocytes 2.35 1.00 - 4.80 K/ul 2023 2:06 AM EDT LABORATORY GL Absolute Monocytes 0.36 0.00 - 1.10 K/uL 2023 2:06 AM EDT LABORATORY GL Absolute Eosinophils 0.08 0.00 - 0.70 K/uL 2023 2:06 AM EDT LABORATORY GL Absolute Basophils 0.01 0.00 - 0.20 K/uL 2023 2:06 AM EDT LABORATORY GL Absolute Immature Granulocytes 0.01 0.00 - 0.20 K/uL 2023 2:06 AM EDT LABORATORY [facility] Blood Venous blood specimen / Unknown Venipuncture / Unknown 2023 2:01 AM EDT 2023 2:03 AM EDT Zachery Morales DO LAB BLOOD ORDERABLES LABORATORY [address] [address] * CBC (2023 2:01 AM EDT) WBC 4.71 4.00 - 10.80 K/uL 2023 2:06 AM EDT LABORATORY GL RBC 4.37 3.85 - 5.15 M/uL 2023 2:06 AM EDT LABORATORY [facility] HGB 13.2 12.0 - 15.3 g/dL 2023 2:06 AM EDT LABORATORY [facility] HCT 37.8 36.0 - 45.2 % 2023 2:06 AM EDT LABORATORY [facility] MCV 86.5 81.5 - 97.5 fL 2023 2:06 AM EDT LABORATORY [facility] MCH 30.2 27.0 - 34.0 pg 2023 2:06 AM EDT LABORATORY GL MCHC 34.9 32.0 - 36.0 g/dL 2023 2:06 AM EDT LABORATORY [facility] RDW 12.7 11.5 - 15.5 % 2023 2:06 AM EDT LABORATORY [facility] PLT 233 140 - 400 K/uL 2023 2:06 AM EDT LABORATORY [facility] MPV 10.2 6.6 - 11.1 fL 2023 2:06 AM EDT LABORATORY [facility] nRBCs 0 <=0 /100 WBCs 2023 2:06 AM EDT LABORATORY [facility] Blood Venous blood specimen / Unknown Venipuncture / Unknown 2023 2:01 AM EDT 2023 2:03 AM EDT Zachery Morales LAB BLOOD ORDERABLES Performing Organization Address City/[facility]/ZIP Co de Phone Number LABORATORY [address] [address] * LIPASE (2023 2:01 AM EDT) Lipase 26 13 - 60 U/L 2023 2:25 AM EDT LABORATORY [facility] Blood Venous blood specimen / Unknown Venipuncture / Unknown 2023 2:01 AM EDT 2023 2:03 AM EDT Zachery Morales DO LAB BLOOD ORDERABLES LABORATORY [address] [address] * LACTATE WITH REFLEX IF ABNORMAL (2023 2:01 AM EDT) Lactate 1.0 0.4 - 2.0 mmol/L 2023 2:23 AM EDT LABORATORY [facility] Blood Venous blood specimen / Unknown Venipuncture / Unknown 2023 2:01 AM EDT 2023 2:03 AM EDT Zachery Paula Carmen DO LAB BLOOD ORDERABLES Performing Organization Address City/[facility]/ZIP Co de Phone Number LABORATORY [address] [address] * PHOSPHORUS (2023 2:01 AM EDT) Phosphorus 3.7 2.5 - 4.8 mg/dL 2023 2:25 AM EDT LABORATORY [facility] Blood Venous blood specimen / Unknown Venipuncture / Unknown 2023 2:01 AM EDT 2023 2:03 AM EDT Zachery Morales DO LAB BLOOD ORDERABLES Performing Organization Address [facility] Co de Phone Number LABORATORY [address] [address] * MAGNESIUM (2023 2:01 AM EDT) Magnesium 2.1 1.5 - 2.6 mg/dL 2023 2:25 AM EDT LABORATORY [facility] Blood Venous blood specimen / Unknown Venipuncture / Unknown 2023 2:01 AM EDT 2023 2:03 AM EDT Zachery Morales DO LAB BLOOD ORDERABLES Performing Organization Address City/[facility]/ZIP Co de Phone Number LABORATORY [address] [address] * (ABNORMAL) COMPREHENSIVE METABOLIC PANEL (2023 2:01 AM EDT) BUN 9 6 - 20 mg/dL 2023 2:25 AM EDT LABORATORY GL Creatinine 0.6 0.5 - 1.0 mg/dL 2023 2:25 AM EDT LABORATORY GL Estimated Glomerular Filtration Rate >90 >=60 mL/min 2023 2:25 AM EDT LABORATORY GL Comment:eGFR is calculated b ased on the CKD-EPI 2020 equation Sodium 140 135 - 146 mmol/L 2023 2:25 AM EDT LABORATORY GLH Potassium 3.7 3.5 - 5.1 mmol/L 2023 2:25 AM EDT LABORATORY GLH Chloride 108(H) 98 - 107 mmol/L 2023 2:25 AM EDT LABORATORY GLH CO2 21(L) 22 - 32 mmol/L 2023 2:25 AM EDT LABORATORY GLH Anion Gap 11 7 - 15 mmol/L 2023 2:25 AM EDT LABORATORY GLH Glucose 100 70 - 120 mg/dL 2023 2:25 AM EDT LABORATORY GLH Albumin 3.8 3.8 - 5.0 g/dL 2023 2:25 AM EDT LABORATORY GLH AST 14 10 - 35 U/L 2023 2:25 AM EDT LABORATORY GLH Alkaline Phosphatase 77 35 - 130 U/L 2023 2:25 AM EDT LABORATORY GLH Bilirubin, Total <0.2 <=1.2 mg/dL 2023 2:25 AM EDT LABORATORY GLH Calcium 8.9 8.4 - 10.2 mg/dL 2023 2:25 AM EDT LABORATORY GLH Protein 6.6 6.0 - 8.3 g/dL 2023 2:25 AM EDT LABORATORY GLH ALT 10 10 - 35 U/L 2023 2:25 AM EDT LABORATORY GLH Blood Venous blood specimen / Unknown Venipuncture / Unknown 2023 2:01 AM EDT 2023 2:03 AM EDT Zachery Morales DO LAB BLOOD ORDERABLES LABORATORY GL [address] [place] [address] documented in this encounter Visit Diagnoses Diagnosis Gastroparesis- Primary Gastroparesis Chest pain Chest pain, unspecified PTSD (post-traumatic stress disorder) Posttraumatic stress disorder Malfunction of jejunostomy tube (HCC) Mechanical complication of colostomy and enterostomy Illness anxiety disorder Gastroesophageal reflux disease with esophagitis without hemorrhage Adjustment disorder with depressed mood Nausea and vomiting Nausea with vomiting documented in this encounter Administered Medications Inactive Administered Medications - up to 3 most recent administrations Medication Order MAR Action Action Date Dose Rate Site Acetaminophen (Ofirmev) inj 1,000 mg 1,000 mg, Intravenous, Q6H PRN, 8 doses, Starting on Wed09/06/23 at 1054, Until Wed09/06/23 at 2359, Administer over 15 Minutes, Administer undiluted over 15 minutes! NOTE: Maximum of 4000 mg per 24 hours of acetaminophen from all acetaminophen containing products., Indication: Patient is strictly NPO New Bag 2023 8:48 PM EDT 1,000 mg 400 mL/hr Alteplase (Cathflo Activase) inj 2 mg 2 mg, IV Push, ONCE, On Wed09/06/23 at 1245, For 1 dose, *Obtain Alteplase (CathFlo Activase) *Reconstitute Alteplase (CathFlo Activase) 2 mg in 2.2 mL sterile water *Instill Alteplase (CathFlo Activase) into occluded lumen(s) *After 30 minutes dwell time in catheter, assess catheter patency by attempting to aspirate blood. If catheter is patent withdraw 3 mL of blood to remove Alteplase (CathFlo Activase) and residual clot. Flush lumen with 10 mL 0.9% normal saline *If catheter function is not restored allow for further dwell up to 120 minutes. *If catheter function is not restored, a second dose of Alteplase (CathFlo Activase) may be administered. *if catheter is still not restored call a physician Given 2023 3:30 PM EDT 2 mg Azithromycin (Zithromax) 500 mg in D5W 250 mL ivpb 500 mg, IV Piggyback, Q24H, 5 doses, First dose on Wed09/06/23 at 0615, Last dose on Wed09/10/23 at 0615, IN D5W MIX BEFORE ADMINISTERING New Bag 09/07/2023 6:42 AM EDT 500 mg 275 mL/hr Restarted 2023 6:18 AM EDT 500 mg/hr 275 mL/hr New Bag 2023 5:59 AM EDT 500 mg 275 mL/hr D51/2 NSS infusion Intravenous, at 100 mL/hr, CONTINUOUS, Starting on Wed09/06/23 at 0800, Until Wed09/07/23 at 0956 Restarted 09/07/2023 8:27 AM EDT 100 mL/hr Restarted 09/07/2023 8:20 AM EDT 100 mL/hr Restarted 09/07/2023 7:42 AM EDT 100 mL/hr Erythromycin Base tab 500 mg 500 mg, Oral, ONCE, On Wed09/06/23 at 0330, For 1 dose Given 2023 3:05 AM EDT 500 mg Fosaprepitant Dimeglumine (Emend) 150 mg in NSS 250 mL Infusion 150 mg, IV Piggyback, ONCE, 1 dose, On Wed09/06/23 at 1315, Administer over 30 Minutes, Infuse over 30 minutes New Bag 2023 5:17 PM EDT 150 mg 560 mL/hr isolyte-S PH 7.4 1,000 mL with potassium chloride 40 mEq INFUSION Intravenous, at 100 mL/hr, CONTINUOUS, Starting on Wed09/07/23 at 1030, Until Wed09/07/23 at 1848 New Bag 09/07/2023 12:48 PM EDT 100 mL/hr ketorolac (Toradol) 30 MG/ML inj 15 mg 15 mg, IV Push, Q6H PRN Pain, Moderate, Starting on Wed09/06/23 at 0601, Until Wed09/07/23 at 1848, For 2 days Given 09/07/2023 11:12 AM EDT 15 mg Given 2023 2:28 PM EDT 15 mg Given 2023 8:39 AM EDT 15 mg magic swizzle oral soln 30 mL, Swish & Swallow, ONCE, On Wed09/06/23 at 0515, For 1 dose, SHAKE WELL Given 2023 4:41 AM EDT 30 mL morphine sulfate inj 2 mg 2 mg, IV Push, Q4H PRN Pain, Severe, Starting on Wed09/06/23 at 0601, Until Wed09/06/23 at 0736 Given 2023 6:12 AM EDT 2 mg morphine sulfate inj 2 mg 2 mg, IV Push, Q3H PRN Pain, Severe, Starting on Wed09/06/23 at 1052, Until Wed09/07/23 at 1848 Given 09/07/2023 12:25 PM EDT 2 mg Given 09/07/2023 8:17 AM EDT 2 mg Given 09/07/2023 4:40 AM EDT 2 mg NSS 0.9% 1,000 mL bolus infusion Intravenous, at 1,000 mL/hr Administer over 60 Minutes, Wide open, This infusion may be completed in less than 1 hour, since it will be a wide open rate, ONCE, 1 dose, On Wed09/06/23 at 0145 New Bag 2023 1:45 AM EDT 1,000 mL 1000 mL/hr ondansetron (Zofran) inj 4 mg 4 mg, IV Push, Q6H PRN Nausea, Vomiting, Starting on Wed09/06/23 at 0545, Until Wed09/06/23 at 0717 Given 2023 6:13 AM EDT 4 mg ondansetron (Zofran) inj 4 mg 4 mg, IV Push, Q6H PRN Nausea, Starting on Wed09/06/23 at 0716, Until Wed09/07/23 at 1848 Given 09/07/2023 11:12 AM EDT 4 mg Given 09/07/2023 4:46 AM EDT 4 mg Given 2023 7:48 PM EDT 4 mg Pantoprazole (Protonix) inj 40 mg 40 mg, IV Push, Daily(AM), First dose on Wed09/06/23 at 0900, Until Discontinued, IV push instructions: Flush I.V. Line before and after administration. In-line filter not required. 2-minute infusion: The volume of reconstituted solution (4mg/ml) to be injected may be administered intravenously over at least 2 minutes. ( Dilute each vial with 10 ml of 0.9% saline PF) Given 09/07/2023 8:20 AM EDT 40 mg Given 2023 7:46 AM EDT 40 mg potassium chloride ER tab 30 mEq 30 mEq, Oral, ONCE, On Wed09/07/23 at 1030, For 1 dose, This med should NOT be Crushed or Chewed Given 09/07/2023 12:25 PM EDT 30 mEq promethazine (Phenergan) supp 25 mg 25 mg, Rectal, Q4H PRN Vomiting, Starting on Wed09/06/23 at 0716, Until Wed09/07/23 at 1848, Refrigerate !! Sucralfate (Carafate) tab 1 g 1 g, Oral, ONCE, On Wed09/06/23 at 0515, For 1 dose Given 2023 4:41 AM EDT 1 g documented in this encounter Active and Recently Administered Medications Times are shown in EDT. Scheduled Medication Order 09/05/2023 2023 09/07/2023 Alteplase (Cathflo Activase) inj 2 mg (COMPLETED) 2 mg, IV Push, ONCE, On Wed09/06/23 at 1245, For 1 dose, *Obtain Alteplase (CathFlo Activase) *Reconstitute Alteplase (CathFlo Activase) 2 mg in 2.2 mL sterile water *Instill Alteplase (CathFlo Activase) into occluded lumen(s) *After 30 minutes dwell time in catheter, assess catheter patency by attempting to aspirate blood. If catheter is patent withdraw 3 mL of blood to remove Alteplase (CathFlo Activase) and residual clot. Flush lumen with 10 mL 0.9% normal saline *If catheter function is not restored allow for further dwell up to 120 minutes. *If catheter function is not restored, a second dose of Alteplase (CathFlo Activase) may be administered. *if catheter is still not restored call a physician 1530 (Given - Provider: Aida Pimentel RN) Azithromycin (Zithromax) 500 mg in D5W 250 mL ivpb 500 mg, IV Piggyback, Q24H, 5 doses, First dose on Wed09/06/23 at 0615, Last dose on Wed09/10/23 at 0615, IN D5W MIX BEFORE ADMINISTERING 0559 (New Bag - Provider: Dedra Salmon RN)0615 (Paused - Provider: Tejal Berry, LUPIS)0618 (Restarted - Provider: Tejal Berry, RN)0702 (Stopped - Provider: Tejal Berry, RN) 0642 (New Bag - Provider: Tejal Knable, RN)0742 (Stopped - Provider: Carolyne Saez RN) Erythromycin Base tab 500 mg (COMPLETED) 500 mg, Oral, ONCE, On Wed09/06/23 at 0330, For 1 dose 0305 (Given - Provider: Dedra Salmon RN) Fosaprepitant Dimeglumine (Emend) 150 mg in NSS 250 mL Infusion (COMPLETED) 150 mg, IV Piggyback, ONCE, 1 dose, On Wed09/06/23 at 1315, Administer over 30 Minutes, Infuse over 30 minutes 1717 (New Bag - Provider: Taniya Franks RN - Comment: received late from pharmacy) hEParin inj 5,000 Units 5,000 Units, Subcutaneous, Q12H, First dose on Wed09/07/23 at 0900, Until Discontinued 0900 (Not Given - Provider: Carolyne Saez RN - Reason: Refused-Notify Provider - Comment: pt ambulates in room, stated " if i'm here for a few days I will take a blood thinner") magic swizzle oral soln (COMPLETED) 30 mL, Swish & Swallow, ONCE, On Wed09/06/23 at 0515, For 1 dose, SHAKE WELL 0441 (Given - Provider: Dedra Salmon RN) NSS 0.9% 1,000 mL bolus infusion (COMPLETED) Intravenous, at 1,000 mL/hr Administer over 60 Minutes, Wide open, This infusion may be completed in less than 1 hour, since it will be a wide open rate, ONCE, 1 dose, On Wed09/06/23 at 0145 0145 (New Bag - Provider: Dedra Salmon RN)0430 (Stopped - Provider: Dedra Salmon RN) Pantoprazole (Protonix) inj 40 mg 40 mg, IV Push, Daily(AM), First dose on Wed09/06/23 at 0900, Until Discontinued, IV push instructions: Flush I.V. Line before and after administration. In-line filter not required. 2-minute infusion: The volume of reconstituted solution (4mg/ml) to be injected may be administered intravenously over at least 2 minutes. ( Dilute each vial with 10 ml of 0.9% saline PF) 0733 (Given - Provider: Taniya Franks RN) 0820 (Given - Provider: Carolyne Saez, LUPIS) potassium chloride ER tab 30 mEq (COMPLETED) 30 mEq, Oral, ONCE, On Wed09/07/23 at 1030, For 1 dose, This med should NOT be Crushed or Chewed 1225 (Given - Provid er: Carolyne Saez, LUPIS) Sucralfate (Carafate) tab 1 g (COMPLETED) 1 g, Oral, ONCE, On Wed09/06/23 at 0515, For 1 dose 0441 (Given - Provider: Dedra Salmon RN) Continuous Medication Order 09/05/2023 2023 09/07/2023 D51/2 NSS infusion (CANCELED) Intravenous, at 100 mL/hr, CONTINUOUS, Starting on Wed09/06/23 at 0800, Until Wed09/07/23 at 0956 0755 (New Bag - Provider: Taniya Franks RN)1817 (Restarted - Provider: Chris Dumas LPN)2108 (New Bag - Provider: Edith Bonilla RN) 0446 (Rate Verify - Provider: Tejal Berry RN)0452 (Rate Verify - Provider: Tejal Berry RN)0540 (Stopped - Provider: Tejal Berry RN)0625 (New Bag - Provider: Tejal Berry RN)0641 (Stopped - Provider: Tejal Berry RN)0742 (Restarted - Provider: Carolyne Saez RN)0817 (Paused - Provider: Carolyne Saez RN)0820 (Restarted - Provider: Carolyne Saez RN)0824 (Paused - Provider: Carolyne Saez RN)0827 (Restarted - Provider: Carolyne Saez, LUPIS)1112 (Stopped - Provider: Carolyne Saez RN) isolyte-S PH 7.4 1,000 mL with potassium chloride 40 mEq INFUSION Intravenous, at 100 mL/hr, CONTINUOUS, Starting on Wed09/07/23 at 1030, Until Wed09/07/23 at 1848 1248 (New Bag - Provider: Carolyne Saez RN)1848 (Due: Stopped) PRN Medication Order 09/05/2023 2023 09/07/2023 Acetaminophen (Ofirmev) inj 1,000 mg 1,000 mg, Intravenous, Q6H PRN, 8 doses, Starting on Wed09/06/23 at 1054, Until Wed09/06/23 at 2359, Administer over 15 Minutes, Administer undiluted over 15 minutes! NOTE: Maximum of 4000 mg per 24 hours of acetaminophen from all acetaminophen containing products., Indication: Patient is strictly NPO 2047 (New Bag - Provider: Edith Bonilla, LUPIS) ketorolac (Toradol) 30 MG/ML inj 15 mg 15 mg, IV Push, Q6H PRN Pain, Moderate, Starting on Wed09/06/23 at 0601, Until Wed09/07/23 at 1848, For 2 days 0839 (Given - Provider: Rashmi Rouse RN - Comment: abd 12/28,doesn't want PO meds right now)1428 (Given - Provider: Taniya Franks RN) 1112 (Given - Provider: Carolyne Saez, LUPIS) morphine sulfate inj 2 mg (CANCELED) 2 mg, IV Push, Q4H PRN Pain, Severe, Starting on Wed09/06/23 at 0601, Until Wed09/06/23 at 0736 0612 (Given - Provider: Josee Mata RN) morphine sulfate inj 2 mg 2 mg, IV Push, Q3H PRN Pain, Severe, Starting on Wed09/06/23 at 1052, Until Wed09/07/23 at 1848 1155 (Given - Provider: Taniya Franks RN)1524 (Given - Provider: Taniya Franks, LUPIS)1851 (Given - Provider: Taniya Franks, LUPIS)2249 (Given - Provider: Edith Bonilla RN) 0440 (Given - Provider: Tejal Berry RN)0817 (Given - Provider: Carolyne Saez, LUPIS)1225 (Given - Provider: Carolyne Saez, LUPIS) ondansetron (Zofran) inj 4 mg (CANCELED) 4 mg, IV Push, Q6H PRN Nausea, Vomiting, Starting on Wed09/06/23 at 0545, Until Wed09/06/23 at 0717 0613 (Given - Provider: Josee Mata, LUPIS) ondansetron (Zofran) inj 4 mg 4 mg, IV Push, Q6H PRN Nausea, Starting on Wed09/06/23 at 0716, Until Wed09/07/23 at 1848 1341 (Given - Provider: Layne Paige, LUPIS)1948 (Given - Provider: Veronica Colon RN) 0446 (Given - Provider: Tejal Berry, LUPIS)1112 (Given - Provider: Carolyne Saez RN) promethazine (Phenergan) supp 25 mg 25 mg, Rectal, Q4H PRN Vomiting, Starting on Wed09/06/23 at 0716, Until Wed09/07/23 at 1848, Refrigerate !! sodium chloride 0.9 % flush/inj 3 mL 3 mL, IV Push, PRN Other, Line Patency, Starting on Wed09/06/23 at 0534, Until Wed09/07/23 at 1848, Do not flush if lock, PICC, or [...] the patient have Health Care Power of Stores Laborer? No Code Status History Code Status Date [...] Advance Directives occurred with: Patient Care Teams Javascript Programmer Relationship Specialty Start Date End Date Kinjal Reynoso PA-C [address] [phone] PCP - General Physician Mold Washer 11/05/22 documented as of this encounter
--- OUTSIDE RECORDS SUMMARY | 2024-01-01 09:17 | External Medical Summary | Summary of Care ---
Author Name Unknown Organization [facility] Address [address] [place] [address] Phone [phone] Care Team Providers Care Lamp Developer Name Role Phone Kinjal Reynoso PA-C Primary Care Provider [phone] Reason for Visit * Reason Onset Date Comments Advice 09/03/2023 Encounter Details Date Type Department Care Team (Late st Contact Info) Description 09/03/2023 Telephone [facility] [address] [facility] [place] [phone] Kinjal Reynoso PA-C [address] [facility] [place] [address] Advice Allergies Active [...] as of this encounter (statuses as of 09/03/2023) Medications Medication Sig Dispensed Refills Start Date End Date Status Naloxone HCl 4 MG/0.1ML Nasal Liquid (Narcan Nasal)Indications: Chronic pelvic pain in female,MEDICATION USE AGREEMENT,Chronic abdominal pain ADMINISTER 1 SPRAY INTO 1 NOSTRIL FOR SUSPECTED OPIOID OVERDOSE - SEEK IMMEDIATE MEDICAL ATTENTION. [email or web address] 2 Each 3 03/31/2023 Active Polyethylene Glycol [...] dose.. 90 Capsule 0 08/16/2023 09/15/2023 Active oxyCODONE HCl 5 MG Oral Tablet (Oxy IR)Indications:Chr onic pelvic pain in female,Gastropares is,Malfunction of jejunostomy tube (HCC) Take 1 Tablet by mouth every 6 hours as needed for Pain, Severe (No more than 4 doses in 24 hours.). Must last 14 days. 54 Tablet 0 08/29/2023 Active documented as of this encounter (statuses as of 09/03/2023) Active Problems Problem Noted Date Diagnosed Date [...] as of this encounter (statuses as of 09/03/2023) Resolved Problems Problem Noted Date Diagnosed Date [...] as of this encounter (statuses as of 09/03/2023) Immunizations Name Administration Dates Next Due DTaP [...] encounter Miscellaneous Notes * Telephone Encounter - Nabila Hummel LPN - 09/03/2023 3:37 PM EDT Pt agreeable to try this advice, will call dr floor person if vomiting continues * Telephone Encounter - Kinjal Reynoso PA-C - 09/03/2023 3:16 PM EDT Recommend Pedialyte popcicles. Eat one or two every hour for 24 hours. Then the following day try adding sips of yovani tea or Boost or Ensure. Take 4-6 hours if needed to get through a Boost or Ensure drink. * Telephone Encounter - Nabila Hummel LPN - 09/03/2023 2:55 PM EDT Spoke with pt, had J tube removed 08/20/23, had hosp fu with Kinjal 08/27/23- added yovani to her diet, taking small amts of food/liquids more often Wed 08/31- not tolerating solids Thurs 09/01- started taking only liquids, vomiting in the sandy Fri 09/02- vomiting most of am, stopped eating and drinking, started taking sips Taylor worse, nausea worse, has tried zofran, compazine, peppermint with no relief Pt contacted surgeon in [place] who tells her will be 2-3wks until able to sched surgery for new j tube Pt is out of options, does not know what to do, knows she needs IV flds but unsure how to keep hydrated until surgeon can get her in Please advise * Telephone Encounter - Kaden Villarreal OSA - 09/03/2023 12:32 PM EDT Patient called in wanting to speak with a nurse but cannot summarize what she is calling in regardsto. Please follow up with the patient. Thank you. documented in this encounter Plan of Treatment Upcoming Encounters Date Type Department Care Team (Late st Contact Info) Description 09/20/2023 12:40 PM EDT Office Visit Nutrition & Weight Management, [facility] [address] [phone] Cee Santizo PA-C [address] [phone] 12/08/2023 5:20 PM EDT [facility] [address] [phone] Kinjal Reynoso PA-C [address] [phone] Health Maintenance Due Date Last Done Comments [...] this encounter Medical Devices Implanted Type Area Reeling Machine Operator Device Identifier Shelf Expiration Date Model / Serial / Lot Port Implant W/8f Poly Cath - [id number] Implanted:Qty : 1 on 05/18/2023 by Juan Jose Connell, at OR [facility] Right: Chest CR BARD : PERIPHERAL VASCULAR [id number] 11/18/2024 [id number] / / [id number] documented as of this encounter Advance Directives [...] the patient have Health Care Power of Casino Gaming Inspector? No Care Teams Lamp Developer Relationship Specialty Start Date End Date Kinjal Reynoso PA-C 21 [facility] [place] [phone] PCP - General Physician Senior Data Scientist 11/05/22 documented as of this encounter
--- OUTSIDE RECORDS SUMMARY | 2024-01-01 09:17 | External Medical Summary | Summary of Care ---
Author Name Unknown Organization [facility] Address [address] [place] [address] Phone [phone] Care Team Providers Care Hot Worker Name Role Phone Kinjal Reynoso PA-C Primary Care Provider [phone] Reason for Visit * Reason Onset Date Comments Medication Refill 08/16/2023 Medication Question 08/16/2023 Dose change Encounter Details Date Type Department Care Team (Late st Contact Info) Description 08/16/2023 Telephone [facility] [address] [place] [phone] Kinjal Reynoso PA-C 21 [facility] [place] [address] Medication Refill; Medication Question (Do... Allergies Active Allergy Reactions Criticality Noted Date [...] as of this encounter (statuses as of 08/30/2023) Medications Medication Sig Dispensed Refills Start Date End Date Status Naloxone HCl 4 MG/0.1ML Nasal Liquid (Narcan Nasal)Indications :Chronic pelvic pain in female,MEDICATION USE AGREEMENT,Chronic abdominal pain ADMINISTER 1 SPRAY INTO 1 NOSTRIL FOR SUSPECTED OPIOID OVERDOSE - SEEK IMMEDIATE MEDICAL ATTENTION. [email or web address] 2 Each 3 03/31/2023 Active Polyethylene Glycol [...] dose.. 90 Capsule 0 08/16/2023 4 Active Peptamen 1.5 Oral Liquid Administer 1000 mL daily, as directed through J Tube via feeding pump 52097 mL 11 04/12/2023 4 Discontinue d(Patient preference/ discontinua tion) Lansoprazole 15 MG Oral Capsule Delayed Release 2 Capsules. 0 05/18/2023 Discontinue d(Patient preference/ discontinua tion) documented as of this encounter (statuses as of 08/30/2023) Active Problems Problem Noted Date Diagnosed Date [...] as of this encounter (statuses as of 08/30/2023) Resolved Problems Problem Noted Date Diagnosed Date [...] as of this encounter (statuses as of 08/30/2023) Immunizations Name Administration Dates Next Due DTaP [...] Miscellaneous Notes * Telephone Encounter - Avril Barreto LPN - 08/17/2023 3:51 PM EST Please see myg * Telephone Encounter - Avril Barreto LPN - 08/17/2023 3:40 PM EST Patient read myg from Kinjal Reynoso. "Dr. Horacio Oleary refilled oxycodone today for 5mg tablets. This was approved for an early refill due to temporary increase in dose due to acute pain. However, this rx will need to last you 14 days. Do not take more than what has been prescribed which is no more than four 5mg tablets a day. Recommend taking Extra Strength Tylenol every 6 to 8 hours as needed as well. Try using heating pad or ice for pain. Kind regards, Kinjal Reynoso PA-C Family Medicine Last read by Anirudh Peñaloza at 3:35 PM on 08/17/2023." * Telephone Encounter - Kinjal Reynoso PA-C - 08/17/2023 3:33 PM EST See MyG message reply to pt. Dr. Leonard addressed refill. Staying on 5mg tablets every 6 hours. * Telephone Encounter - Amina Bailey MED ASSIST - 08/16/2023 3:56 PM EST Received call from front desk clerk that pt was transferred to them stating she was talking to a nurse and got disconnected. When they transferred the call the pt stated she had a missed call from us. I left her know I did not see anyone had called since I spoke to her this morning. Pt was asking if her pain medication was addressed. She repeatedly asked when Dr Leonard and Kinjal would be back. I explained to her that Kinjal should return tomorrow and the provider covering her bin may not be comfortable filling a controlled substance since they do not know her. Pt voiced understanding and again askedthat I jesenia this will require a prior authorization. Pt aware it may be tomorrow til she hears anything back. * Telephone Encounter - Amina Bailey MED ASSIST - 08/16/2023 11:03 AM EST Pt called in asking for a refill of the 10 mg she states she was told by Kinjal she could take a saúl dose. Pt states this is causing her to run out of pain meds. She states she had to go to the ER due to her pain yesterday. Pt state this will need a prior auth and she would appreciate if we could move things along so she does not run out of pain medication.Pt asked this be sent to Dr Leonard or Kinjal but she is gonzalez they are out of the office today. * Telephone Encounter - Vivek Taylor associate project manager - 08/16/2023 9:55 AM EST Pt requesting high priority. Please see 08/12/2023 prescription Pt currently IP Unit: [facility]ICINE [facility] Pt calling in to request a dose change on their oxyCODONE HCl 5 MG Oral Tablet (Oxy IR). Current dose: 5 mg Requested dose: 10 mg Reason for request: Increased pain Pref[facility] pharmacy: [facility] Patient unwilling to speak with pharmacist at this time. Routing to pharmacist pool to advise. Thank you, Vivek Taylor Gas System Operator I [facility] ([facility])(formerly Telepharmacy) 08/16/2023,9:58 AM documented in this encounter Plan of Treatment Upcoming Encounters Date Type Department Care Team (Late st Contact Info) Description 09/20/2023 12:40 PM EDT Office Visit Nutrition & Weight Management, [facility] [address] [phone] Cee Santizo PA-C [address] [place] [address] 12/08/2023 5:20 PM EDT Office Visit Family [place], [place] [address] [phone] Kinjal Reynoso PA-C [address] [address] Health Maintenance Due Date Last Done Comments [...] this encounter Medical Devices Implanted Type Area Assistant Strength Coach Device Identifier Shelf Expiration Date Model / Serial / Lot Port Implant W/8f Poly Cath - [id number] Implanted:Qty : 1 on 05/18/2023 by Juan Jose Connell DO at OR [facility] Right: Chest CR BARD : PERIPHERAL VASCULAR [id number] 11/18/2024 [id number] / / [id number] documented as of this encounter Advance Directives [...] the patient have Health Care Power of Production Mechanic? No Care Teams Hot Worker Relationship Specialty Start Date End Date Kinjal Reynoso PA-C [address] [phone] PCP - General Physician Count Team Member 11/05/22 documented as of this encounter
--- OUTSIDE RECORDS SUMMARY | 2024-01-01 09:17 | External Medical Summary ---
Author Name Unknown Address Unknown Organization K1F:LABORATORY [facility] - [address] [facility] [address] Laboratory Report Ordering Provider Test Date Status MORISCHANDRAKANT 2023 10:15:57 Final Cutoff Concentrations:
Drug Level
Amphetamines 500 ng/mL
Benzodiazepines 100 ng/mL
Cannabinoids 50 ng/mL
Cocaine Metabolite 150 ng/mL
Fentanyl 1 ng/mL
Hydrocodone / Hydromorphone 300 ng/mL
Methadone Metabolite 100 ng/mL
Morphine / Codeine 300 ng/mL
Oxycodone / Oxymorphone 100 ng/mL

Screening results are presumptive and can only be used for medical purposes. Positive screening results are reflexed to confirmatory testing. Observation Date Value Abnormality Reference (Units ) Status Amphetamines, Urine screen 2023 10:15:57 Negative Negative Final Benzodiazepines, Urine screen 2023 10:15:57 Negative Negative Final Cannabinoids, Urine screen 2023 10:15:57 Positive Abnormal Negative Final Cocaine Metabolite, Urine screen 2023 10:15:57 Negative Negative Final fentaNYL [Presence] in Urine by Screen method 2023 10:15:57 Negative Negative Final HYDROcodone [Presence] in Urine by Screen method 2023 10:15:57 Negative Negative Final 9-Xvvtrsatka-9,5-Dimeth yl-3,3-Diphenylpyrrolid ine (EDDP) [Presence] in Urine 2023 10:15:57 Negative Negative Final Opiates, Urine screen 2023 10:15:57 Positive Abnormal Negative Final oxyCODONE [Presence] in Urine by Screen method 2023 10:15:57 Positive Abnormal Negative Final Performing Location LABORATORY [facility] - [address] [place] [address]
--- OUTSIDE RECORDS SUMMARY | 2024-01-01 09:17 | External Medical Summary | Summary of Care ---
Author Name Unknown Organization [facility] Address [address] [place] [address] Phone [phone] Care Team Providers Care Visual Education Director Name Role Phone Kinjal Reynoso PA-C Primary Care Provider [phone] Reason for Visit * Reason Onset Date Comments Medication Refill 08/16/2023 Medication Question 08/16/2023 Dose change Encounter Details Date Type Department Care Team (Late st Contact Info) Description 08/16[facility]23 [facility] [address] [phone] Kinjal Reynoso PA-C 21 [facility] [place] [address] Medication Refill; Medication Question [...] as of this encounter (statuses as of 08/27/2023) Medications Medication Sig Dispensed Refills Start Date End Date Status Naloxone HCl 4 MG/0.1ML Nasal Liquid (Narcan Nasal)Indications :Chronic pelvic pain in female,MEDICATION USE AGREEMENT,Chronic abdominal pain ADMINISTER 1 SPRAY INTO 1 NOSTRIL FOR SUSPECTED OPIOID OVERDOSE - SEEK IMMEDIATE MEDICAL ATTENTION. [email or web address] 2 Each 3 03/31/2023 Active Polyethylene Glycol [...] directed through J Tube via feeding pump 54394 mL 11 04/12/2023 4 Discontinue d(Patient preference/ discontinua tion) Lansoprazole 15 MG Oral Capsule Delayed Release 2 Capsules. 0 05/18/2023 Discontinue d(Patient preference/ discontinua tion) documented as of this encounter (statuses as of 08/27/2023) Active Problems Problem Noted Date Diagnosed Date [...] as of this encounter (statuses as of 08/27/2023) Resolved Problems Problem Noted Date Diagnosed Date [...] as of this encounter (statuses as of 08/27/2023) Immunizations Name Administration Dates Next Due DTaP [...] 08/16/2023 3:56 PM EST Received call from senior front end developer that pt was transferred to them stating [...] today. * Telephone Encounter - Vivek Taylor technical product manager - 08/16/2023 9:55 AM EST Pt requesting high priority. Please see 08/12/2023 prescription Pt currently IP Unit: [facility] Pt calling in to request a dose change on their oxyCODONE HCl 5 MG Oral Tablet (Oxy IR). Current dose: 5 mg Requested dose: 10 mg Reason for request: Increased pain [email or web address] Patient unwilling to speak with pharmacist at this time. Routing to pharmacist pool to advise. Thank you, Vivek Taylor Product Engineering Manager I [facility] ([facility])(formerly Telepharmacy) 08/16/2023,9:58 AM documented in this encounter Plan of Treatment Upcoming Encounters Date Type Department Care Team (Late st Contact Info) Description 09/20/2023 12:40 PM EDT Office Visit Nutrition & Weight Management, [facility] [address] [address] Cee Santizo PA-C [address] [place] [address] 12/08/2023 5:20 PM EDT Office Visit Family Jeff, [place] [address] [phone] Kinjal Reynoso PA-C [address] [address] Health Maintenance Due Date Last Done Comments [...] this encounter Medical Devices Implanted Type Area Potato Chip Frier Device Identifier Shelf Expiration Date Model / Serial / Lot Port Implant W/8f Poly Cath - [id number] Implanted:Qty : 1 on 05/18/2023 by Juan Jose Connell DO at OR [facility] Right: Chest CR BARD : PERIPHERAL VASCULAR [id number] 11/18/2024 [id number] / / [id number] documented as of this encounter Advance Directives [...] the patient have Health Care Power of Social Service Agency Director? No Care Teams Visual Education Director Relationship Specialty Start Date End Date Kinjal Reynoso PA-C [address] [phone] PCP - General Physician Jukebox Coin Collector 11/05/22 documented as of this encounter
--- OUTSIDE RECORDS SUMMARY | 2024-01-01 09:17 | External Medical Summary ---
Author Name Unknown Address Unknown Organization K1F:LABORATORY [facility] - [address] [place] [address] Laboratory Report Ordering Provider Test Date Status DIANA CAPPS 09/07/2023 04:32:00 Final Observation Date Value Abnormality Reference (Units ) Status Magnesium 09/07/2023 04:32:00 2.2 1.5-2.6 (m g/dL) Final Performing Location LABORATORY [facility] - [address] [place] [address]
--- OUTSIDE RECORDS SUMMARY | 2024-01-01 09:17 | External Medical Summary | Summary of Care ---
Author Name Unknown Organization [facility] Address [address] [place] [address] Phone [phone] Care Team Providers Care Administrative Executive Name Role Phone Kinjal Reynoso PA-C Primary Care Provider [phone] Reason for Visit * Reason Onset Date Comments Medication Refill 08/16/2023 Medication Question 08/16/2023 Dose change Encounter Details Date Type Department Care Team (Late st Contact Info) Description [facility] [address] [phone] Kinjal Reynoso PA-C [address] [facility] [address] [place] [address] Medication Refill; Medication Question [...] OPIOID OVERDOSE - SEEK IMMEDIATE MEDICAL ATTENTION. [email or web address] 2 Each 3 03/31/2023 Active Polyethylene Glycol [...] directed through J Tube via feeding pump 29231 mL 11 04/12/2023 4 Discontinue d(Patient preference/ [...] 3:56 PM EST Received call from front office supervisor that pt was transferred to them stating [...] today. * Telephone Encounter - Vivek Taylor resaw machine operator - 08/16/2023 9:55 AM EST Pt requesting high priority. Please see 08/12/2023 prescription Pt currently IP Unit: EMERGENCY MEDICINE [facility] Pt calling in to request a dose change on their oxyCODONE HCl 5 MG Oral Tablet (Oxy IR). Current dose: 5 mg Requested dose: 10 mg Reason for request: Increased pain [facility] Patient unwilling to speak with pharmacist at this time. Routing to pharmacist pool to advise. Thank you, Vivek Taylor Ophthalmic Lens Inspector I Centralized Clinical Pharmacy Services (CCPS)(formerly Telepharmacy) 08/16/2023,9:58 AM documented in this encounter Plan of Treatment Upcoming Encounters Date Type Department Care Team (Late st Contact Info) Description 09/20/2023 12:40 PM EDT Office Visit Nutrition & Weight Management, [facility] [address] [address] Cee Santizo PA-C [address] [address] 12/08/2023 5:20 PM EDT Office Visit Family [facility], [place] [address] [phone] Kinjal Reynoso PA-C [address] [address] Health Maintenance Due Date Last Done Comments [...] this encounter Medical Devices Implanted Type Area Water Pollution Control Technician Device Identifier Shelf Expiration Date Model / Serial / Lot Port Implant W/8f Poly Cath - [id number] Implanted:Qty : 1 on 05/18/2023 by Juan Jose Connell DO at OR [facility] Right: Chest CR BARD : PERIPHERAL VASCULAR [id number] 11/18/2024 [id number] / / [id number] documented as of this encounter Advance Directives [...] the patient have Health Care Power of Cutter Banana Room? No Care Teams Administrative Executive Relationship Specialty Start Date End Date Kinjal Reynoso PA-C [address] [address] PCP - General Physician Career And Transition Teacher 11/05/22 documented as of this encounter
--- OUTSIDE RECORDS SUMMARY | 2024-01-01 09:17 | External Medical Summary ---
Author Name Unknown Address Unknown Organization K1F:[facility]ATORY [facility] - [address] [place] [address] Laboratory Report Ordering Provider Test Date Status DIANA CAPPS 09/07/2023 04:32:00 Final Observation Date Value Abnormality Reference (Units ) Status WBC, Total 09/07/2023 04:32:00 4.64 4.00-10.80 (K/uL) Final RBC 09/07/2023 04:32:00 4.49 3.85-5.15 (M/uL) Final Hemoglobin 09/07/2023 04:32:00 13.2 12.0-15.3 (g/dL) Final HCT 09/07/2023 04:32:00 38.8 36.0-45.2 (%) Final MCV 09/07/2023 04:32:00 86.4 81.5-97.5 (fL) Final MCH 09/07/2023 04:32:00 29.4 27.0-34.0 (pg) Final MCHC 09/07/2023 04:32:00 34.0 32.0-36.0 (g/dL) Final RDW 09/07/2023 04:32:00 12.7 11.5-15.5 (%) Final Platelets 09/07/2023 04:32:00 225 140-400 (K/uL) Final MPV 09/07/2023 04:32:00 10.3 6.6-11.1 (fL) Final Nucleated erythrocytes/100 leukocytes [Ratio] in Blood by Automated count 09/07/2023 04:32:00 0 <=0 (/100 WBCs) Final Performing Location [facility]ORY [facility] - [address] [place] [address]
--- OUTSIDE RECORDS SUMMARY | 2024-01-01 09:17 | External Medical Summary ---
Author Name Unknown Address Unknown Organization K01:LABORATORY [place] [address] [facility] [address] Laboratory Report Ordering Provider Test Date Status CHANDRAKANT SUBRAMANIAN 2023 10:15:57 Final Cutoff Concentration:
D rug Level
THC-COOH 10 ng/mL

This test was developed and its performance characteristics determined by [employer]. It has not been cleared or approved by the [place] Food and Drug Administration.
null Observation Date Value Abnormality Reference (Units ) Status METHODOLOGY 2023 10:15:57 LC-MS/MS Final Cannabinoids, Urine confirmatory 2023 10:15:57 182 Above high normal Negative (ng/mL) Final Performing Location LABORATORY [place] [address] [place] [address]
--- OUTSIDE RECORDS SUMMARY | 2024-01-01 09:17 | External Medical Summary ---
Author Name Unknown Address Unknown Organization K1F:LABORATORY [facility] - [address] [place] [address] Laboratory Report Ordering Provider Test Date Status SANDYKASANDRA MAGANA 2023 02:01:52 Final Observation Date Value Abnormality Reference (Units ) Status Magnesium 2023 02:01:52 2.1 1.5-2.6 (m g/dL) Final Performing Location LABORATORY [facility] - [address] [place] [address]
--- OUTSIDE RECORDS SUMMARY | 2024-01-01 09:18 | External Medical Summary | Summary of Care ---
Author Name Unknown Organization [facility] Address [address] [place] [address] Phone [phone] Care Team Providers Care Automatic Maintainer Name Role Phone Kinjal Reynoso PA-C Primary Care Provider [phone] Reason for Visit * Reason Onset Date Comments Medication Refill 08/16/2023 Medication Question 08/16/2023 Dose change Encounter Details Date Type Department Care Team (Late st Contact Info) Description [facility] [address] [phone] Kinjal Reynoso PA-C 21 [facility] [address] [place] [address] Medication Refill; Medication Question [...] as of this encounter (statuses as of 08/17/2023) Medications Medication Sig Dispensed Refills Start Date End Date Status Naloxone HCl 4 MG/0.1ML Nasal Liquid (Narcan Nasal)Indications: Chronic pelvic pain in female,MEDICATION USE AGREEMENT,Chronic abdominal pain ADMINISTER 1 SPRAY INTO 1 NOSTRIL FOR SUSPECTED OPIOID OVERDOSE - SEEK IMMEDIATE MEDICAL ATTENTION. [email or web address] 2 Each 3 03/31/2023 Active Peptamen 1.5 Oral Liquid Administer 1000 mL daily, as directed through J Tube via feeding pump 23030 mL 11 04/12/2023 Active Lansoprazole 15 MG [...] as of this encounter (statuses as of 08/17/2023) Active Problems Problem Noted Date Diagnosed Date [...] as of this encounter (statuses as of 08/17/2023) Resolved Problems Problem Noted Date Diagnosed Date [...] as of this encounter (statuses as of 08/17/2023) Immunizations Name Administration Dates Next Due DTaP [...] 08/16/2023 3:56 PM EST Received call from patient coordinator front desk that pt was transferred to them stating [...] office today. * Telephone Encounter - Vivek Taylor, welt trimming machine operator - 08/16/2023 9:55 AM EST Pt requesting high priority. Please see 08/12/2023 prescription Pt currently IP Unit: EMERGENCY MEDICINE [facility] Pt calling in to request a dose change on their oxyCODONE HCl 5 MG Oral Tablet (Oxy IR). Current dose: 5 mg Requested dose: 10 mg Reason for request: Increased pain [facility] Patient unwilling to speak with pharmacist at this time. Routing to pharmacist pool to advise. Thank you, Vivek Tayolr Genetic Technologist I Centralized Clinical Pharmacy Services (CCPS)(formerly Telepharmacy) 08/16/2023,9:58 AM documented in this encounter Plan of Treatment Upcoming Encounters Date Type Department Care Team (Late st Contact Info) Description 08/20/2023 1:50 PM EST Telemedicine Nutrition & Weight Management, [facility] [address] [address] Kaity Yap RDN [address] [address] 08/27/2023 9:00 AM EST [facility] [address] [phone] Kinjal Reynoso PA-C [address] [address] 09/20/2023 12:40 PM EDT Office Visit Nutrition & Weight Management, [facility] [address] [address] Cee Santizo PA-C [address] [address] 12/08/2023 5:20 PM EDT Office Visit [facility] [place] [address] [phone] Kinjal Reynoso PA-C [address] [place] [address] Health Maintenance Due Date Last Done Comments [...] this encounter Medical Devices Implanted Type Area Letterpress Setter Device Identifier Shelf Expiration Date Model / Serial / Lot Port Implant W/8f Poly Cath - [id number] Implanted:Qty : 1 on 05/18/2023 by Juan Jose Connell, at OR [facility] Right: Chest CR BARD : PERIPHERAL VASCULAR [id number] 11/18/2024 [id number] / / [id number] documented as of this encounter Advance Directives [...] the patient have Health Care Power of Oss Architect? No Care Teams Automatic Maintainer Relationship Specialty Start Date End Date Kinjal Reynoso PA-C [address] [address] PCP - General Physician Audit Tech 11/05/22 documented as of this encounter
--- OUTSIDE RECORDS SUMMARY | 2024-01-01 09:18 | External Medical Summary | Summary of Care ---
Author Name Unknown Organization [facility] Address [address] [place] [address] Phone [phone] Care Team Providers Care Bridges Supervisor Name Role Phone Kinjal Reynoso PA-C Primary Care Provider [phone] Reason for Visit * Reason Onset Date Comments Hospital Follow-Up 08/13/2023 [facility] Encounter Details Date Type Department Care Team (Late st Contact Info) Description 08/13/[address] [id number] Trisha Trejo, RN Hospital Follow-Up (/[facility]) Allergies Active Allergy Reactions Criticality Noted Date [...] as of this encounter (statuses as of 08/16/2023) Medications Medication Sig Dispensed Refills Start Date End Date Status Naloxone HCl 4 MG/0.1ML Nasal Liquid (Narcan Nasal)Indications :Chronic pelvic pain in female,MEDICATION USE AGREEMENT,Chronic abdominal pain ADMINISTER 1 SPRAY INTO 1 NOSTRIL FOR SUSPECTED OPIOID OVERDOSE - SEEK IMMEDIATE MEDICAL ATTENTION. [email or web address] 2 Each 3 03/31/2023 Active Peptamen 1.5 Oral Liquid Administer 1000 mL daily, as directed through J Tube via feeding pump 79593 mL 11 04/12/2023 Active Lansoprazole 15 MG [...] 1 Capsule before bedtime. 0 08/12/2023 Active oxyCODONE HCl 5 MG Oral Tablet (Oxy IR)Indications:Ma lfunction of jejunostomy tube (HCC),Chronic pelvic pain in female,Gastropare sis Take 1 Tablet by mouth every 6 hours as needed for Pain, Severe (No more than 4 doses in 24 hours.). 0 08/12/2023 Active Promethazine HCl 25 MG Oral Tablet (Phenergan) Take 1 Tablet by mouth every 6 hours as needed for Nausea for up to 90 doses. Crush and mix with water then give through jejunostomy tube, then flush with at least 20 ml of water, use one-half tablet if it feels too strong. 90 Tablet 0 06/14/2023 Discontinue d(Medicatio n List Clean Up) documented as of this encounter (statuses as of 08/16/2023) Active Problems Problem Noted Date Diagnosed Date [...] as of this encounter (statuses as of 08/16/2023) Resolved Problems Problem Noted Date Diagnosed Date [...] as of this encounter (statuses as of 08/16/2023) Immunizations Name Administration Dates Next Due DTaP [...] encounter Miscellaneous Notes * Telephone Encounter - Trisha Trejo RN - 08/13/2023 9:39 AM EST Transitions of Care Note Reason for Referral:Recent Admission Phone visit for follow up: [facility] [place] [facility]: [place]23 Discharged to: Home, Date: 08/12/23 Diagnosis driving hospitalization: Malfunction of jejunostomy tube LVMM for patient to return call for hospital followup [facility] call. If patient calls back to the clinicplease obtain best time and number to reach patient or they can call me directly at [phone] with any questions or concerns. Please route to Trisha Trejo RN. Thank you documented in this encounter Plan of Treatment Upcoming Encounters Date Type Department Care Team (Late st Contact Info) Description 08/20/2023 1:50 PM EST Telemedicine Nutrition & Weight Management, [facility] [address] [address] Kaity Yap RDN [address] [address] 08/27/2023 9:00 AM EST Office Visit [facility] [address] [phone] Kinjal Reynoso PA-C [address] [address] 09/20/2023 12:40 PM EDT Office Visit Nutrition & Weight Management, [facility] [address] [address] Cee Santizo PA-C [address] [address] 12/08/2023 5:20 PM EDT Office Visit [facility] [address] [phone] Kinjal Reynoso PA-C [address] [facility] [address] [place] [address] Health Maintenance Due Date Last Done Comments [...] this encounter Medical Devices Implanted Type Area Raveler Device Identifier Shelf Expiration Date Model / Serial / Lot Port Implant W/8f Poly Cath - [id number] Implanted:Qty : 1 on 05/18/2023 by Juan Jose Connell, at OR [facility] Right: Chest CR BARD : PERIPHERAL VASCULAR [id number] 11/18/2024 [id number] / / [id number] documented as of this encounter Advance Directives [...] the patient have Health Care Power of Account Executive Agribusiness? No Care Teams Bridges Supervisor Relationship Specialty Start Date End Date Reynoso, Kinjal Lorenza, PA-C [address] [phone] PCP - General Physician Automobile Body Worker 11/05/22 documented as of this encounter
--- OUTSIDE RECORDS SUMMARY | 2024-01-01 09:18 | External Medical Summary | Summary of Care ---
Author Name Unknown Organization [facility] Address [address] [place] [address] Phone [phone] Care Team Providers [employer] Name Role Phone Edgardo Kinjal Britt PA-C Primary Care Provider [phone] Reason for Visit * Reason Comments Pain * Auth/Cert Specialty Diagnoses / Procedures Referred By Contdulce t Referred To Contact Referral ID Status Reason Start Date Expiration Date Visits Re quested Visits Authorized [id number] Encounter Details Date Type Department Care Team (Late st Contact Info) Description 08/15/2023 7:57 PM EST - 08/16/2023 11:08 AM EST Emergency [facility] ([facility]) [address] [place] [address] Rolo Cruz MD [address] [place], [place] [id number] Zachery Morales DO [address] [place] [address] Maylin Sharif MD [address] [place] [address] Abdominal pain, unspecified abdominal location (Primary Dx); Jejunostomy tube present (HCC); Chronic pain syndrome; Fear associated with illness and body function Discharge Disposition: Home - Self Care Allergies [...] OPIOID OVERDOSE - SEEK IMMEDIATE MEDICAL ATTENTION. [email or web address] Each 3 03/31/2023 Active Peptamen 1.5 Oral Liquid Administer 1000 mL daily, as directed through J Tube via feeding pump 34109 mL 11 04/12/2023 Active Lansoprazole 15 MG [...] per dose.. 90 Capsule 0 08/16/2023 Active Promethazine HCl 25 MG Oral Tablet (Phenergan) Take 1 Tablet by mouth every 6 hours as needed for Nausea for up to 90 doses. Crush and mix with water then give through jejunostomy tube, then flush with at least 20 ml of water, use one-half tablet if it feels too strong. 90 Tablet 0 06/14/2023 4 Discontinue d(Medicatio n List Clean Up) documented [...] Sign Reading Time Taken Comments Blood Pressure 125/78 08/16/2023 11:00 AM EST Pulse 88 08/16/2023 11:00 AM EST Temperature 37.1 C (98.8 F) 08/15/2023 7:53 PM ES T Respiratory Rate 20 08/16/2023 11:00 AM EST Oxygen Saturation 99% 08/15/2023 7:53 PM EST Inhaled Oxygen Concentration - - Weight 75.3 kg (166 lb) 08/15/2023 7:53 PM EST Height 157.5 cm (5' 2") 08/15/2023 7:53 PM EST Body Mass Index 30.36 08/15/2023 7:53 PM EST documented in this [...] this encounter Discharge Instructions * Discharge Instructions* Zachery Morales DO - 08/16/2023 8:07 AM EST You were seen in the emergency department for worsening abdominal pain. Your labs did not show any concerning findings. A GI tube x-ray series showed normal progression of contrast through your tube into your bowel. A CT scan of your abdomen and pelvis did not show any abnormal findings to explain your symptoms. You were case was discussed with both General surgery and Gastroenterology, and they reviewed your workup and imaging, but did not note any abnormal findings or indications for intervention or change in management. Please continue taking oxycodone 10 mg every 6 hours as needed for pain. You were provided with a prescription for 100 mg capsules of gabapentin to take 3 times daily with your previously prescribed 300 mg capsules. Please follow-up with your surgeon next week as scheduled. See attached information for further recommendations and return precautions. documented in this encounter Progress Notes * Maylin Sharif MD - 08/16/2023 8:46 AM EST 08/16/2023 addendum 08:46 Doctor Sharif received sign-out from Dr. Morales at 08:20. Patient presented here last evening with J-tube feeding issues and apparent abdominal pain with J-tube feedings. Placement was checked here with Gastrografin an x-ray and patient also had CT scan. Patient recently had increase of her baseline oxycodone dose by her provider. And also apparently had recent increase of her gabapentin to 300 mg three times daily. Patient has history of ongoing abdominal pain issues with multiple workups. Has history of hysterectomy. Awaiting contact from Gastroenterology regarding any recommendations, at time of sign-out. I have reviewed the clinical lab, radiology, and other medical tests that were ordered during this encounter (see all). The patient apparently recently had exchange of her jejunostomy tube with increased pain left abdomen and back, nausea, vomiting, diarrhea. 08:50 per ED nursing staff the patient is complaining of increased pain Maylin Sharif MD 08/16/2023 8:50 AM 08/16/2023 addendum 09:02 08:53 assessment. Patient sleepy. On awakening patient has having pain left lateral abdomen around jejunostomy site. No open wounds noted, well-healed incisions noted. Right side of abdomen soft withno guarding or tenderness, there is tenderness and guarding around the left mid abdominal region and jejunostomy site. No drainage around the site noted. Additional medication ordered Maylin Sharif MD 08/16/2023 9:03 AM 08/16/2023 addendum 15:55 Per review of EMR patient had exchange of her jejunostomy tube by Interventional Radiology while inpatient at [facility] on 08/10/2023. Disposition recommended follow up with patient's surgeon Dr. Knight at [facility] after discharge. ED staff advises here the patient was tolerating oral fluids and medications and then later requested that they be put in her jejunostomy tube. 10:[address] Knight's facility. They will page Dr Knight to call back 10:10 Consult. Received secure [place] text from [facility]. They do not have much to addother than recommend slowing down tube feeds 10:13 consult. Received call from Dr. Knight. He says he received calls daily every day from the patient while the patient was in the [facility] recently. He says the patient refuses to have the J-tube removed. He says she is able to tolerate oral food and fluid. She has apparently not tolerated gastrostomy tube in the past and refuses to have 1 again as she says her stomach does not work. Hesays could consider referral to GI for upper GI endoscopy to change to gastro jejunostomy tube, that may help with her pain. Or he could changed to a Roberth type of J-tube when he sees her for appointment on August 19. He believes the patient will continue to have pain while the jejunostomy tube isin place 10:26 I spoke with the patient and advised of communications with Dr. Knight and recommendation of gastroenterology. The patient says she does not want to have the jejunostomy tube removed because she became septic when it was initially placed and she was afraid if it comes out and it needs to be put back in again she will become more ill. She feels that removal of the jejunostomy would be a "drastic" step. Patient has ongoing pain and she is afraid the pain will get worse and that she will not beable to sleep and does not feel she can wait until her upcoming appointment with Dr. Knight. I spoke with her about maybe speaking to her therapist and her residential worker, as many people with gastroparesis do not require any feeding tubes, she has no signs of malnutrition or dehydration, she does not appear to have a bowel absorption issue but she seems very afraid. She says she has been undergoing cognitive therapy and she has a residential worker. She was advised to maybe talk about possibility of an eating disorder but at this time I do not have anything else to offer her in the emergency department and she does not appear to require inpatient admission at this time. She was advised to continue her outpatient treatment as therapy take time Condition: Stable Impression: Abdominal pain, unspecified abdominal location Jejunostomy tube present Chronic pain syndrome Fear associated with illness and body function Disposition: Discharged to home Maylin Sharif MD 08/16/2023 4:10 PM documented in this encounter ED Notes * Rolo Cruz MD - 08/15/2023 8:09 PM EST Images from the original note were not included. HISTORY OF PRESENT ILLNESS Anirudh Peñaloza is a 22 year old female who presents to the ED for evaluation of Pain. The patient was seen at 08/15/232008. Patient has a recently replaced j tube, in [place]. Increased pain in the left abdomen and back, nausea vomiting, diarrhea. Decreased oral intake. Distended abdomen, tender all over. No fevers or chills. Pcp manages oxy. Upped to 10mg per 6h Pt states she had her jtube exchanged in [place] a few days ago and states that she cannot get thepain under control at home. Patient has had a number of abdominal procedures fairly recently, see previous encounters in our records had operation resulting in a abdominal wall abscess which gradually healed in having found to be likely caused by Pseudomonas and when proper antibiotics were initiated along with wound packing the wound closed. She has had issue with getting appropriate nutrition, has had jejunostomy tube which at times has had issues with function and positioning, she had recent abdominal pain investigation finding that the tip of the J-tube had in fact migrated passed the lumen of the jejunum at which point repositioning was done and the tube was thought to once again be in the lumen and then was exchanged 5 days ago. Following exchange/replacement of the J tube she says she has had painful sensations with any tube feedings which continues on to this time. This is her primary concern at this pointin time. In this setting she has had increasing doses of oxycodone to try to manage that, she had previously weaned down to 5 mg per dose at my encouragement having previously at 20 mg per dose whichwas great progress now unfortunately has need to go back up to 10 mg per dose to tolerate overall situation. Continues to take the gabapentin at 200 mg 3 times a day. Has had some nausea to the pointof vomiting recently. The patient's allergies, past history, and medications were reviewed. PHYSICAL EXAM Initial Vitals (see all): BP 140/90 | Pulse 132 | Resp 18 | Temp 98.8 | O2 99 %Weight 75.3 kg | Height 157.5 cm | BMI 30.36 kg/m2 Initial Pain Assessment (see all): 9 (severe pain)/10, location: abdomen ([facility] Adult Scale 0-10) Physical Exam Vitals and nursing note reviewed. Constitutional: General: She is in acute distress. Appearance: She is well-developed. She is ill-appearing. HENT: Head: Normocephalic. Right Ear: External ear normal. Left Ear: External ear normal. Mouth/Throat: Pharynx: Oropharynx is clear. Eyes: Conjunctiva/sclera: Conjunctivae normal. Neck: Trachea: No tracheal deviation. Pulmonary: Effort: Pulmonary effort is normal. Abdominal: General: There is no distension. Tenderness: There is generalized abdominal tenderness. Comments: Diffuse moderate tenderness Musculoskeletal: General: No deformity. Skin: Findings: No rash. Neurological: Mental Status: She is alert. GCS: GCS eye subscore is 4. GCS verbal subscore is 5. GCS motor subscore is 6. PROCEDURES AND TREATMENTS ED Orders | ED Results MEDICAL DECISION MAKING Nursing notes and vital signs were reviewed. ED Course as of 08/16/23 0032 Sun Aug 15, [id number] Seems important to check if contrast will be intraluminal if injected into the J-tube lumen. 5mL of contrast was injected through the port and a series of 3 KUB were exposed the first with no flush second with 5 mL flush the third with another 30 mL flush and all appeared to show contrast in the lumen of the bowel toward the right upper quadrant of the abdomen. On the left-hand side there seem to be multiple areas of density in what is likely to descending colon, likely previously ingested contrast unclear how long ago that was ingested. [RO] 2321 Patient says back pain is improving says abdominal pain goes unchanged compared to when she arrived, my impression when looking at her is that she appears at least somewhat more comfortable I more relaxed. She says gallbladder still present but appendix says pretty previously removed. Most pain currently on right side of abdomen. Prior gallbladder ultrasound about a year ago had no gallstones. Plan at this point is to get double contrast CT scan to establish no severe problem, and oral contrast not oral but small amount via the J-tube with flush, remains to be seen if this will be as uncomfortable as it was initially for the plain x-rays [RO] 2329 On review it appears that patient has already been increased to gabapentin 300 mg 3 times a day which was very recently so plan is to keep the dose the same at least in the short term, she now has 300 mg ordered for this visit [RO] Mon Aug 16, 2023 0015 50 ml enteral contrast and 50 ml water flush via J tube completed at this time, patient had increased discomfort unless injection was very slow. [RO] ED Course User Index [RO] Rolo Cruz MD Care is continued by Dr. Morales who will review results of CT scan and response to meds and determinebest disposition Amount and/or Complexity of Data Reviewed Labs: ordered. Radiology: ordered. Risk OTC drugs. Prescription drug management. Clinical Impressions Abdominal pain, unspecified abdominal location Dehydration Lumbar radiculopathy Disposition No disposition documented. Discharge Medications Disp Refills Start End Promethazine HCl 25 MG Oral Tablet (Phenergan) 120 Tablet 0 08/15/2023 -- Sig - Route: Take 1 Tablet by mouth every 6 hours as needed for Nausea for up to 120 doses. - Oral Class: ePrescribing Renewals Renewal requests to authorizing provider (Rolo Crzu MD) <b>prohibited</b> Rolo Cruz * Vivek Herring RN - 08/15/2023 7:54 PM EST Pt states she had her jtube exchanged in [place] a few days ago and states that she cannot get thepain under control at home. documented in this encounter Miscellaneous Notes * ED [employer] Note - Lauren Vanessa RN - 08/16/2023 11:07 AM EST Pt discharge instructions prescription and follow up reviewed with pt and pt verbalized understanding. * ED [employer] Note - Lauren Vanessa RN - 08/16/2023 9:23 AM EST 0918 pt given oxycodone and compazine for abd pain rated 8/10, pt did not want the flexeril due to the way is make her feel. See MAR. * Pt Handout (on AVS) - Zachery Morales DO - 08/16/2023 8:07 AM EST [id number] Discharge Instructions: Caring for Your Jejunostomy Tube (J-Tube) You have been discharged with a feeding tube called a jejunostomy tube (J-tube or jejunal tube). The J-tube was put through your skin and into your small bowel (jejunum). This allows for feeding directly into your small bowel. Your feeding tube was put in because you are not able to take in enough food or drink through your mouth to keep your normal body weight. You were shown how to care for your J-tube in the hospital. This sheet helps you remember the steps when you?re at home. Feeding tube instructions The name of my feeding supplement/formula is: Amount per feeding: Times per day: Amount of water used to flush tube: My healthcare provider's name and phone number are: Guidelines for continuous tube feeding Make arrangements for a special feeding pump to be delivered to your home. Check with your healthcare provider before putting any medicine into a J- tube. Only certain medicines can be put through a J-tube, and there will be specific instructions on how to do this safely and correctly. Keep tension off the tubing by taping it up onto your belly (abdomen). Clean around the tube Wash your hands thoroughly with mild soap and clean, running water before starting your feeding. Clean the area around the tube with mild soap and water. Pat the area dry using a clean washcloth. Get ready Gather the supplies you will need. These include formula, water, feeding bag, pump, and a 30 mL to 60 mL syringe. Close the clamp on the feeding bag tubing. Slowly pour the formula into the feeding bag. Use the prescribed amount of feeding. Hang the feeding bag on the pole about 1 to 2 feet above your head. Begin feeding Open the clamp and let the formula fill the entire tubing, clearing any air. Close the clamp. Connect the feeding bag tubing to the pump. Adjust the settings on the pump. Using the syringe, flush the J-tube with the prescribed amount of water. Connect the tubing of the feeding bag to the J-tube. Open the clamp. Start the pump. After the feeding When the feeding is finished, stop the infusion and flush the J-tube with the prescribed amount of water. Stop the feeding once each day to clean the bag. Wash the feeding bag with soapy water. Rinse the bag thoroughly so that there is no soapy film in the bag. Hang the bag to dry. Flush the J-tube with the prescribed amount of water every 4 to 6 hours through the flush port. If there is no flush port, then stop the pump, disconnect the feeding bag tubing, and flush the J-tube. Flushing is important because J-tubes can clog. Follow-up Follow up with your healthcare provider as advised. When to call your healthcare provider Call your healthcare provider right away or get medical care right away if you have any of the following: A tube that is clogged or dislodged Belly pain that gets worse Vomiting Fever of 100.4 F ( 38 C) or higher, or as advised by your provider Chills Diarrhea that lasts more than 2 days Signs of infection (redness, swelling, or warmth at the tube site) Drainage from the tube site Weight loss of 2 or more pounds in 24 hours Decreased urination Last Reviewed Date: 07/22/202119998617-1588 [employer]. All rights reserved. This information is not intended as a substitute for professional medical care. Always follow your healthcare professional's instructions. * Pt Handout (on AVS) - Zachery Morales DO - 08/16/2023 8:07 AM EST Images from the original note were not included. [address]53 Bolus Tube Feeding People with feeding tubes who can tolerate a normal amount of food at 1 time can be fed by bolus feeding. Feedings are most often given every 4 to 6 hours during waking hours. You?ll be told how often to give the feedings and how much water to give between feedings. To begin, wash your hands. Then open and use only the prescribed amount of liquid food (formula). There are 2 types of syringes and feeding tubes. One type has a connection that lets you plug or push the syringe tip into the feeding tube. A newer type syringe and feeding tube has a twist on safety connector. This feature means that you must use a specific syringe that twists onto your feeding tube. Your care team will give you instructions for your type of tube. You may also be told to flush your tube with water before and after feedings to prevent clogging. Follow your care team's instructions. Twist-type safety syringe and feeding tube Step 1. Twist the syringe tip onto the feeding tube. Pull the plunger out of the syringe. Remove the feeding tube's port cap. Twist the syringe tip onto the feeding tube's safety port. Step 2. Fill the syringe. Pour the formula into the syringe. Fill only to the top line on the syringe. Step 3. Give the feeding. Put the plunger back into the syringe. Then push down slowly on the plunger. OR Hold the syringe straight up and let the formula run through the tube by gravity. Repeat steps 2 and 3 Repeat steps 2 and 3 until you?ve given the prescribed amount of formula. Unscrew the syringe and replace the tube's port cap. You can also fill the syringe from a measuring cup. Leave the plunger in the syringe. Pour the formula into the measuring cup. Put the syringe tip into the cup and pull up the plunger. Then twist the syringe tip onto the feeding tube's safety port. Plug-in type syringe and feeding tube Step 1. Put the syringe tip in the port. Pull the plunger out of the syringe. Open the feeding port cap. Put the syringe tip in the feeding port. Step 2. Fill the syringe. Pour the formula into the syringe. Fill only to the top line on the syringe. Step 3. Give the feeding. Put the plunger back into the syringe. Then push down slowly on the plunger. OR Hold the syringe straight up and let the formula run through the tube by gravity. Repeat steps 2 and 3 Repeat steps 2 or 3 until you've given the prescribed amount of formula. Remove the syringe and close the port cap. You can also fill the syringe from a measuring cup. Leave the plunger in the syringe. Pour the formula into the measuring cup. Put the syringe tip into the cup and pull up the plunger. Then put the tip of the syringe in the feeding port. Last Reviewed Date: 07/22/202119992167-8745 [employer]. All rights reserved. This information is not intended as a substitute for professional medical care. Always follow your healthcare professional's instructions. * Pt Handout (on AVS) - Zachery Morales DO - 08/16/2023 8:06 AM EST [id number] Unknown Causes of Abdominal Pain(Adult) The exact [...] bleeding or missed period Last Reviewed Date: 04/21/202119992697-7833 [employer]. All rights reserved. This information is not intended as a substitute for professional medical care. Always follow your healthcare professional's instructions. * ED [employer] Note - Michelle Hills RN - 08/15/2023 8:03 PM EST Patient comes into the ED for c/o abdominal pain resulting from recent J-Tube replacement. Patient explains that she recently was seen in [place] for surgical replacement of her J-Tube which they changes to a different type involving having a balloon. Patient reports she has had increased pain in her abdomen, all over but worse on the left and into her back. Patient notes decreased oral intake, nausea, vomiting, diarrhea. Patient explains she has reached out to her medical team and her PCP that manages her pain medication approved her increase from PO 5mg Oxycodone Q6H to PO 10mg Oxycodone Q6H. Last dose of oxycodone was around 3150-7461. Patient s abdomen is distended and tender all over.Patient denies SOB, CP, Fevers or chills. Patients site has no redness, does have scant serosanguinous drainage. documented in this encounter Plan of Treatment Upcoming Encounters Date Type Department Care Team (Late st Contact Info) Description 08/20/2023 1:50 PM EST Telemedicine Nutrition & Weight Management, [facility] [address] [phone] Kaity Yap RDN [address] [phone] 08/27/2023 9:00 AM EST Office Visit [facility] [address] [phone] Kinjal Reynoso PA-C [address] [phone] 09/20/2023 12:40 PM EDT Office Visit Nutrition & Weight Management, [facility] [address] [phone] Cee Santizo PA-C [address] [phone] 12/08/2023 5:20 PM EDT Office Visit [facility] [place] [place] [address] [phone] Kinjal Reynoso PA-C [address] [phone] Health Maintenance Due Date Last Done Comments GARDASIL-HPV IMMUNIZATION SE KIM (1 - 3-dose series) 2016 Yearly Wellness Visit 01/03/2023 01/03/2022 , 03/29/2020, 02/22/2019, Additional history exists COVID-19 Vaccine ( - 2022-2 4 season) [...] encounter Medical Devices Implanted Type Area Client Account Representative Device Identifier Shelf Expiration Date Model / Serial / Lot Port Implant W/8f Poly Cath - [id number] Implanted:Qty : 1 on 05/18/2023 by Juan Jose Connell, at [facility] Right: Chest CR BARD : PERIPHERAL VASCULAR [id number] 11/18/2024 [id number] / / [id number] documented as of this encounter Procedures Procedure Name Priority Date/Time Associated Diagnosis Comments CT ABD/PELVIS W IV AND W ORAL CONTRAST STAT 08/16/2023 2:21 AM EST LACTATE WITH REFLEX IF ABNORMAL STAT 08/15/2023 9:17 PM EST DIFFERENTIAL, AUTOMATED STAT 08/15/2023 9:17 PM EST BETA-HCG, QUANTITATIVE STAT 9:17 PM EST COMPREHENSIVE METABOLIC PANEL STAT 08/15/2023 9:17 PM EST CBC STAT 08/15/2023 9:17 PM EST PHOSPHORUS STAT 08/15/2023 9:17 PM EST LIPASE STAT 08/15/2023 9:17 PM EST CBC STAT 08/15/2023 9:17 PM EST MAGNESIUM STAT 08/15/2023 9:17 PM EST XR GI TUBE EVAL WITH CONTRAST INJECTION STAT 08/15/2023 9:03 PM EST documented in this encounter Results * CT ABD/PELVIS W IV AND W ORAL CONTRAST (08/16/2023 2:21 AM EST) Anatomical Region Laterality Modality Body, Abdomen, Pelvis Computed T omography 08/16/2023 2:09 AM EST Impressions 08/16/2023 3:14 AM EST IMPRESSION: 1. Percutaneous jejunostomy tube is appropriately positioned. Contrast is seen within the bowel. 2. Minimal inflammation about the jejunum near the catheter insertion site, may be chronic. THIS DOCUMENT HAS BEEN ELECTRONICALLY SIGNED BY LEAH NELSON MD Narrative 08/16/2023 3:14 AM EST PROCEDURE INFORMATION: Exam: CT Abdomen And Pelvis With Contrast Exam date and time: 08/16/2023 2:09 AM Age: 22 years old Clinical indication: Abdominal pain; Prior surgery; Surgery date: 1-6 months; Surgery type: J tube; Additional info: Right sided abdominal pain, recent j tube exchange, patient says tube feedings are painful since j tube exchange done. Enteral contrast not by mouth, doc will inject 50 ml in j tube then flush with 50 ml water, then do test 120 minutes afterward. TECHNIQUE: Imaging protocol: Computed tomography of the abdomen and pelvis with contrast. Radiation optimization: All CT scans at this facility use at least one of these dose optimization techniques: automated exposure control; mA and/or kV adjustment per patient size (includes targeted exams where dose is matched to clinical indication); or iterative reconstruction. Contrast material: [id number]; Contrast volume: 100 ml; Contrast route: INTRAVENOUS (IV); COMPARISON: CT Dual Energy^DE ABD PELVIS (Adult) 08/09/2023 7:10 PM FINDINGS: Lungs: Bibasilar atelectasis. Liver: Liver is unremarkable. Gallbladder and bile ducts: No calcified gallstones. No gallbladder wall thickening or pericholecystic fluid. No biliary ductal dilation. Pancreas: Pancreas is unremarkable. No main duct dilation. Spleen: Spleen is unremarkable. Adrenal glands: No nodules. Kidneys and ureters: No hydroureteronephrosis. No urinary tract calculi. Stomach and bowel: There is a percutaneous jejunostomy catheter with balloon inflated in the proximal jejunum and tip terminating distally in the jejunum. Stomach is mildly distended. No dilated loops of bowel. Appendix: No evidence of appendicitis. Intraperitoneal space: No free air. No significant fluid collection. Vasculature: No abdominal aortic aneurysm. Unremarkable. Lymph nodes: Few mildly prominent mesenteric lymph nodes, nonspecific, may be reactive. Urinary bladder: Bladder is unremarkable as visualized. Reproductive: Corpus luteum hemorrhagic cyst in the left ovary, decreased in size from 08/09/2023. Hysterectomy. Bones/joints: No acute fracture. No aggressive osseous lesions. Soft tissues: Unremarkable. Procedure Note Leah Nelson MD - 08/16/2023 PROCEDURE INFORMATION: Exam: CT Abdomen And Pelvis With Contrast Exam date and time: 08/16/2023 2:09 AM Age: 22 years old Clinical indication: Abdominal pain; Prior surgery; Surgery date: 1-6months; Surgery type: J tube; Additional info: Right sided abdominal pain, recentj tube exchange, patient says tube feedings are painful since j tubeexchange done. Enteral contrast not by mouth, doc will inject 50 ml in j tube thenflush with 50 ml water, then do test 120 minutes afterward. TECHNIQUE: Imaging protocol: Computed tomography of the abdomen and pelvis withcontrast. Radiation optimization: All CT scans at this facility use at least one ofthese dose optimization techniques: automated exposure control; mA and/or kV adjustment per patient size (includes targeted exams where dose is matchedto clinical indication); or iterative reconstruction. Contrast material: [id number]; Contrast volume: 100 ml; Contrast route: INTRAVENOUS (IV); COMPARISON: CT Dual Energy^DE ABD PELVIS (Adult) 08/09/2023 7:10 PM FINDINGS: Lungs: Bibasilar atelectasis. Liver: Liver is unremarkable. Gallbladder and bile ducts: No calcified gallstones. No gallbladder wall thickening or pericholecystic fluid. No biliary ductal dilation. Pancreas: Pancreas is unremarkable. No main duct dilation. Spleen: Spleen is unremarkable. Adrenal glands: No nodules. Kidneys and ureters: No hydroureteronephrosis. No urinary tract calculi. Stomach and bowel: There is a percutaneous jejunostomy catheter withballoon inflated in the proximal jejunum and tip terminating distally in thejejunum. Stomach is mildly distended. No dilated loops of bowel. Appendix: No evidence of appendicitis. Intraperitoneal space: No free air. No significant fluid collection. Vasculature: No abdominal aortic aneurysm. Unremarkable. Lymph nodes: Few mildly prominent mesenteric lymph nodes, nonspecific, maybe reactive. Urinary bladder: Bladder is unremarkable as visualized. Reproductive: Corpus luteum hemorrhagic cyst in the left ovary, decreasedin size from 08/09/2023. Hysterectomy. Bones/joints: No acute fracture. No aggressive osseous lesions. Soft tissues: Unremarkable. IMPRESSION IMPRESSION: 1. Percutaneous jejunostomy tube is appropriately positioned. Contrastis seen within the bowel. 2. Minimal inflammation about the jejunum near the catheter insertionsite, may be chronic. THIS DOCUMENT HAS BEEN ELECTRONICALLY SIGNED BY LEAH NELSON MD Rolo Cruz MD RAD CT * (ABNORMAL) DIFFERENTIAL, AUTOMATED (08/15/2023 9:17 PM EST) WBC 5.08 4.00 - 10.80 K/uL 08/15/2023 9:26 PM EST [facility] Neutrophils % 41.9 40.0 - 75.0 % 08/15/2023 9:26 PM EST [facility] Lymphocytes % 47.6(H) 18.0 - 42.0 % 08/15/2023 9:26 PM EST [facility] Monocytes % 9.1 1.0 - 11.0 % 08/15/2023 9:26 PM EST [facility] Eosinophils % 0.8 0.0 - 6.0 % 08/15/2023 9:26 PM EST [facility] Basophils % 0.2 0.0 - 2.0 % 08/15/2023 9:26 PM EST [facility] Immature Granulocytes % 0.4 0.0 - 2.0 % 08/15/2023 9:26 PM EST [facility] Absolute Neutrophils 2.13 1.80 - 7.70 K/uL 08/15/2023 9:26 PM EST [facility] Absolute Lymphocytes 2.42 1.00 - 4.80 K/ul 08/15/2023 9:26 PM EST [facility] Absolute Monocytes 0.46 0.00 - 1.10 K/uL 08/15/2023 9:26 PM EST [facility] Absolute Eosinophils 0.04 0.00 - 0.70 K/uL 08/15/2023 9:26 PM EST [facility] Absolute Basophils 0.01 0.00 - 0.20 K/uL 08/15/2023 9:26 PM EST [facility] Absolute Immature Granulocytes 0.02 0.00 - 0.20 K/uL 08/15/2023 9:26 PM EST [facility] Blood Blood sample taken from central line / Unknown Venipuncture / Unknown 08/15/2023 9:17 PM EST 08/15/2023 9:21 PM EST Rolo Cruz MD LAB BLOOD ORDER [facility] [address] [place] [address] * CBC (08/15/2023 9:17 PM EST) Pathologist [facility] WBC 5.08 4.00 - 10.80 K/uL 08/15/2023 9:26 PM EST LABORATORY GL RBC 4.30 3.85 - 5.15 M/uL 08/15/2023 9:26 PM EST [facility] HGB 13.2 12.0 - 15.3 g/dL 08/15/2023 9:26 PM EST LABORATORY GL HCT 38.0 36.0 - 45.2 % 08/15/2023 9:26 PM EST [facility] MCV 88.4 81.5 - 97.5 fL 08/15/2023 9:26 PM EST LAB[facility] GL MCH 30.7 27.0 - 34.0 pg 08/15/2023 9:26 PM EST LABOR[facility]ORY GL MCHC 34.7 32.0 - 36.0 g/dL 08/15/2023 9:26 PM EST LAB[facility]ORY GL RDW 13.2 11.5 - 15.5 % 08/15/2023 9:26 PM EST LABOR[facility]ORY GL PLT 263 140 - 400 K/uL 08/15/2023 9:26 PM EST LAB[facility]ORY GL MPV 10.4 6.6 - 11.1 fL 08/15/2023 9:26 PM EST LABOR[facility]ORY GL nRBCs 0 <=0 /100 WBCs 08/15/2023 9:26 PM EST [facility] Blood Blood sample taken from central line / Unknown Venipuncture / Unknown 08/15/2023 9:17 PM EST 08/15/2023 9:21 PM EST Rolo Cruz MD LAB BLOOD ORDER [facility] [address] [address] * BETA-HCG, QUANTITATIVE (08/15/2023 9:17 PM EST) Pathologist [facility] Beta-HCG, Quantitative <0.1 <=1.0 mIU/mL 08/15/2023 9:56 PM EST [facility] Blood Blood sample taken from central line / Unknown Venipuncture / Unknown 08/15/2023 9:17 PM EST 08/15/2023 9:21 PM EST Narrative LAB[facility]ATORY [facility] - 08/15/2023 9:56 PM EST hCG can serve as a screening assay for . However, early may not give a positive hCG test result. In addition, some non- women may have a hCG result slightly higher than the reference limit. Careful interpretation of the hCG with clinical history is required to determine whether the patient may be . Rolo Cruz MD LAB BLOOD ORDER [facility] Performing Organization Address City/[facility]/ZIP Co de Phone Number LABORATORY [address] [phone] * PHOSPHORUS (08/15/2023 9:17 PM EST) Pathologist [facility] Phosphorus 2.8 2.5 - 4.8 mg/dL 08/15/2023 9:46 PM EST LAB[facility] Blood Blood sample taken from central line / Unknown Venipuncture / Unknown 08/15/2023 9:17 PM EST 08/15/2023 9:21 PM EST Rolo Cruz MD LAB BLOOD ORDER [facility] [address] [address] * MAGNESIUM (08/15/2023 9:17 PM EST) Pathologist [facility] Magnesium 2.2 1.5 - 2.6 mg/dL 08/15/2023 9:46 PM EST LAB[facility] Blood Blood sample taken from central line / Unknown Venipuncture / Unknown 08/15/2023 9:17 PM EST 08/15/2023 9:21 PM EST Rolo Cruz MD LAB BLOOD ORDER [facility] Performing Organization Address City/[facility] Co de Phone Number LABORATORY [address] [phone] * LACTATE WITH REFLEX IF ABNORMAL (08/15/2023 9:17 PM EST) Lactate 1.3 0.4 - 2.0 mmol/L 08/15/2023 9:42 PM EST LAB[facility] Blood Blood sample taken from central line / Unknown Venipuncture / Unknown 08/15/2023 9:17 PM EST 08/15/2023 9:21 PM EST Rolo Cruz MD LAB BLOOD ORDER [facility] Performing Organization Address [facility] Co de Phone Number LABORATORY [address] [address] * LIPASE (08/15/2023 9:17 PM EST) Lipase 21 13 - 60 U/L 08/15/2023 9:46 PM EST LAB[facility] Blood Blood sample taken from central line / Unknown Venipuncture / Unknown 08/15/2023 9:17 PM EST 08/15/2023 9:21 PM EST Rolo Cruz MD LAB BLOOD ORDER [facility] Performing Organization Address City/[facility]/ZIP Co de Phone Number LABORATORY [address] [phone] * (ABNORMAL) COMPREHENSIVE METABOLIC PANEL (08/15/2023 9:17 PM EST) BUN 7 6 - 20 mg/dL 08/15/2023 9:46 PM EST LAB[facility] Creatinine 0.6 0.5 - 1.0 mg/dL 08/15/2023 9:46 PM EST [facility] Estimated Glomerular Filtration Rate >90 >=60 mL/min 08/15/2023 9:46 PM EST [facility] Comment:eGFR is calculated b ased on the CKD-EPI 2020 equation Sodium 138 135 - 146 mmol/L 08/15/2023 9:46 PM EST [facility] Potassium 4.1 3.5 - 5.1 mmol/L 08/15/2023 9:46 PM EST [facility] Chloride 105 98 - 107 mmol/L 08/15/2023 9:46 PM EST [facility] CO2 21(L) 22 - 32 mmol/L 08/15/2023 9:46 PM EST [facility] Anion Gap 12 7 - 15 mmol/L 08/15/2023 9:46 PM EST [facility] Glucose 103 70 - 120 mg/dL 08/15/2023 9:46 PM EST [facility] Albumin 4.0 3.8 - 5.0 g/dL 08/15/2023 9:46 PM EST [facility] AST 14 10 - 35 U/L 08/15/2023 9:46 PM EST [facility] Alkaline Phosphatase 73 35 - 130 U/L 08/15/2023 9:46 PM EST [facility] Bilirubin, Total 0.2 <=1.2 mg/dL 08/15/2023 9:46 PM EST [facility] Calcium 9.1 8.4 - 10.2 mg/dL 08/15/2023 9:46 PM EST [facility] Protein 7.0 6.0 - 8.3 g/dL 08/15/2023 9:46 PM EST [facility] ALT 10 10 - 35 U/L 08/15/2023 9:46 PM EST [facility] Blood Blood sample taken from central line / Unknown Venipuncture / Unknown 08/15/2023 9:17 PM EST 08/15/2023 9:21 PM EST Rolo Cruz MD LAB BLOOD ORDER [facility] [address] [address] * XR GI TUBE EVAL WITH CONTRAST INJECTION (08/15/2023 9:03 PM EST) Anatomical Region Laterality Modality GI, Abdomen, Pelvis Digital Radi ography 08/15/2023 8:51 PM EST Impressions 08/15/2023 10:37 PM EST IMPRESSION: No acute findings. THIS DOCUMENT HAS BEEN ELECTRONICALLY SIGNED BY YELENA ROMERO MD Narrative 08/15/2023 10:37 PM EST PROCEDURE INFORMATION: Exam: XR Abdomen Exam date and time: 08/15/2023 8:51 PM Age: 22 years old Clinical indication: Symptoms: Er Dr injected 5ml of contrast then took first image, then flushed twice with water each followed by an image, PT complaining of pain after administering formula in tube; Additional info: Abdominal pain with doing tube feeds x several days. Check tube, do after doc injection of enteral contrast TECHNIQUE: Imaging protocol: Radiologic exam of the abdomen. Views: 3 or more views. COMPARISON: CT Dual Energy^DE ABD PELVIS (Adult) 08/09/2023 7:10 PM FINDINGS: Gastrointestinal tract: Normal. No bowel dilation. Intraperitoneal space: Normal. No free air. Bones/joints: Unremarkable for age. Procedure Note Yelena Romero MD - 08/15/2023 PROCEDURE INFORMATION: Exam: XR Abdomen Exam date and time: 08/15/2023 8:51 PM Age: 22 years old Clinical indication: Symptoms: Er Dr injected 5ml of contrast then tookfirst image, then flushed twice with water each followed by an image, PTcomplaining of pain after administering formula in tube; Additional info: Abdominalpain with doing tube feeds x several days. Check tube, do after doc injectionof enteral contrast TECHNIQUE: Imaging protocol: Radiologic exam of the abdomen. Views: 3 or more views. COMPARISON: CT Dual Energy^DE ABD PELVIS (Adult) 08/09/2023 7:10 PM FINDINGS: Gastrointestinal tract: Normal. No bowel dilation. Intraperitoneal space: Normal. No free air. Bones/joints: Unremarkable for age. IMPRESSION IMPRESSION: No acute findings. THIS DOCUMENT HAS BEEN ELECTRONICALLY SIGNED BY YELENA ROMERO MD Rolo Cruz MD RAD FLUOROSCOPY documented in this encounter Visit Diagnoses Diagnosis Abdominal pain, unspecified abdominal location- Primary Jejunostomy tube present (HCC) Status of other artificial opening of gastrointestinal tract Chronic pain syndrome Fear associated with illness and body function documented in this encounter Administered Medications Inactive Administered Medications - up to 3 most recent administrations Medication Order MAR Action Action Date Dose Rate Site Acetaminophen (Ofirmev) inj 1,000 mg 1,000 mg, Intravenous, ONCE, 1 dose, On 08/15/23 at 2245, Administer over 15 Minutes, Administer undiluted over 15 minutes! NOTE: Maximum of 4000 mg per 24 hours of acetaminophen from all acetaminophen containing products., Indication: Patient is experiencing severe nausea and vomiting New Bag 08/15/2023 10:18 PM EST 1,000 mg 400 mL/hr Gabapentin (Neurontin) cap 100 mg 100 mg, Oral, ONCE, On Wed08/16/23 at 0000, For 1 dose, To total of 300 mg for visit Given 08/16/2023 12:20 AM EST 100 mg Gabapentin (Neurontin) cap 200 mg 200 mg, Oral, ONCE, On Wed08/15/23 at 2315, For 1 dose Given 08/15/2023 10:51 PM EST 200 mg Gabapentin (Neurontin) cap 300 mg 300 mg, Oral, ONCE, On Wed08/16/23 at 0400, For 1 dose Given 08/16/2023 3:45 AM EST 300 mg HYDROmorphone (Dilaudid) inj 0.5 mg 0.5 mg, IV Push, ONCE, On 08/15/23 at 2115, For 1 dose Given 08/15/2023 9:27 PM EST 0.5 mg HYDROmorphone (Dilaudid) inj 0.5 mg 0.5 mg, IV Push, ONCE, On Wed08/16/23 at 0100, For 1 dose Given 08/16/2023 12:43 AM EST 0.5 mg Ioversol (Optiray 320) inj 100 mL 100 mL, Intravenous, ONCE, On Wed08/16/23 at 0300, For 1 dose, Radiology Medication Routing (Non-IR) Given 08/16/2023 3:00 AM EST 100 mL Ioversol (Optiray 320) inj 5 mL 5 mL, Injection, ONCE, On Wed08/15/23 at 2145, For 1 dose, Radiology Medication Routing (Non-IR) Given 08/15/2023 9:07 PM EST 5 mL Ioversol (Optiray 350) 74 % inj 125 mL 125 mL, Intravenous, ONCE, On Wed08/16/23 at 0300, For 1 dose, Radiology Medication Routing (Non-IR) Given 08/16/2023 3:00 AM EST 125 mL isolyte 1,000 mL bolus infusion Intravenous, Administer entire volume within 60 minutes or less. Plasma-LYTE 148, isolyte-S, and isolyte-S pH 7.4 are considered equivalent - including for MAR barcode scanning., ONCE, 1 dose, On Wed08/16/23 at 0000 New Bag 08/16/2023 12:25 AM EST 1,000 mL 1200 mL/hr ketorolac (Toradol) 30 MG/ML inj 30 mg 30 mg, IV Push, ONCE, On Wed08/16/23 at 0530, For 1 dose Given 08/16/2023 4:52 AM EST 30 mg Lidocaine (Aspercreme) 4 % patch 1 Patch 1 Patch, Transdermal, ONCE, On Wed08/15/23 at 2315, For 1 dose, Apply patch for 12 hours then remove for 12 hours! Remove any Lidocaine patches the patient may currently be wearing prior to applying the new patch Patch Applied 08/15/2023 10:52 PM EST 1 Patch Back Left NSS 0.9% 1,000 mL bolus infusion Peripheral IV, at 1,000 mL/hr Administer over 60 Minutes, Administer entire volume within 60 minutes or less., ONCE, 1 dose, On 08/15/23 at 2115 New Bag 08/15/2023 9:31 PM EST 1,000 mL 1000 mL/hr NSS 0.9% 1,000 mL bolus infusion Peripheral IV, at 1,000 mL/hr Administer over 60 Minutes, Total of 2L for visit, ONCE, 1 dose, On Wed08/15/23 at 2145 New Bag 08/15/2023 9:31 PM EST 1,000 mL 1000 mL/hr ondansetron (Zofran) inj 4 mg 4 mg, IV Push, ONCE, On 08/15/23 at 2115, For 1 dose Given 08/15/2023 9:25 PM EST 4 mg ondansetron (Zofran) inj 4 mg 4 mg, IV Push, ONCE, On Wed08/16/23 at 0645, For 1 dose Given 08/16/2023 6:18 AM EST 4 mg oxyCODONE (Oxy IR) tab 10 mg 10 mg, Oral, ONCE, On Wed08/16/23 at 0400, For 1 dose Given 08/16/2023 3:45 AM EST 10 mg oxyCODONE (Oxy IR) tab 10 mg 10 mg, Oral, ONCE, On Wed08/16/23 at 0945, For 1 dose Given 08/16/2023 9:18 AM EST 10 mg promethazine (Phenergan) tab 25 mg 25 mg, Oral, ONCE, On 08/15/23 at 2245, For 1 dose Given 08/15/2023 10:16 PM EST 25 mg promethazine (Phenergan) tab 25 mg 25 mg, Oral, ONCE, On 08/16/23 at 0945, For 1 dose Given 08/16/2023 9:17 AM EST 25 mg documented in this encounter Active and Recently Administered Medications Times are shown in EST. Scheduled Medication Order 08/14/2023 08/15/2023 08/16/2023 Acetaminophen (Ofirmev) inj 1,000 mg (COMPLETED) 1,000 mg, Intravenous, ONCE, 1 dose, On 08/15/23 at 2245, Administer over 15 Minutes, Administer undiluted over 15 minutes! NOTE: Maximum of 4000 mg per 24 hours of acetaminophen from all acetaminophen containing products., Indication: Patient is experiencing severe nausea and vomiting 2218 (New Bag - Provider: Michelle Hills RN)2333 (Stopped - Provider: Michelle Hills RN) cyclobenzaprine (Flexeril) tab 10 mg 10 mg, Oral, ONCE, On Wed08/16/23 at 0945, For 1 dose 0945 (Not Given - Provider: Lauren Vanessa RN - Reason: Refused-Notify Provider) Gabapentin (Neurontin) cap 100 mg (COMPLETED) 100 mg, Oral, ONCE, On Wed08/16/23 at 0000, For 1 dose, To total of 300 mg for visit 0020 (Given - Provid er: Michelle Hills RN) Gabapentin (Neurontin) cap 200 mg (COMPLETED) 200 mg, Oral, ONCE, On 08/15/23 at 2315, For 1 dose 2251 (Given - Provider: Michelle Hills RN) Gabapentin (Neurontin) cap 300 mg (COMPLETED) 300 mg, Oral, ONCE, On Wed08/16/23 at 0400, For 1 dose 0345 (Given - Provid er: Michelle Hills RN) HYDROmorphone (Dilaudid) inj 0.5 mg (COMPLETED) 0.5 mg, IV Push, ONCE, On Wed08/15/23 at 2115, For 1 dose 212 (Given - Provider: Michelle Hills RN) HYDROmorphone (Dilaudid) inj 0.5 mg (COMPLETED) 0.5 mg, IV Push, ONCE, On Wed08/16/23 at 0100, For 1 dose 0043 (Given - Provid er: Michelle Hills RN) Ioversol (Optiray 320) inj 100 mL (COMPLETED) 100 mL, Intravenous, ONCE, On Wed08/16/23 at 0300, For 1 dose, Radiology Medication Routing (Non-IR) 0300 (Given - Provid er: Chris Avalos, RT (R)) Ioversol (Optiray 320) inj 5 mL (COMPLETED) 5 mL, Injection, ONCE, On Wed08/15/23 at 2145, For 1 dose, Radiology Medication Routing (Non-IR) 2106 (Given - Provider: Toyin Meyer, RT) Ioversol (Optiray 350) 74 % inj 125 mL (COMPLETED) 125 mL, Intravenous, ONCE, On Wed08/16/23 at 0300, For 1 dose, Radiology Medication Routing (Non-IR) 0300 (Given - Provid er: Chris Avalos, RT (R)) isolyte 1,000 mL bolus infusion (COMPLETED) Intravenous, Administer entire volume within 60 minutes or less. Plasma-LYTE 148, isolyte-S, and isolyte-S pH 7.4 are considered equivalent - including for MAR barcode scanning., ONCE, 1 dose, On Wed08/16/23 at 0000 0025 (New Bag - Provider: Michelle Hills RN)0114 (Stopped - Provider: Michelle Hills RN) ketorolac (Toradol) 30 MG/ML inj 30 mg (COMPLETED) 30 mg, IV Push, ONCE, On Wed08/16/23 at 0530, For 1 dose 0452 (Given - Provid er: Michelle Hills RN) Lidocaine (Aspercreme) 4 % patch 1 Patch (COMPLETED) 1 Patch, Transdermal, ONCE, On Wed08/15/23 at 2315, For 1 dose, Apply patch for 12 hours then remove for 12 hours! Remove any Lidocaine patches the patient may currently be wearing prior to applying the new patch 2252 (Patch Applied - Provider: Michelle Hills RN) 1052 (Due: Patch Removed - Provider: Michelle Hills RN) NSS 0.9% 1,000 mL bolus infusion (COMPLETED) Peripheral IV, at 1,000 mL/hr Administer over 60 Minutes, Administer entire volume within 60 minutes or less., ONCE, 1 dose, On 08/15/23 at 2115 213 (New Bag - Provider: Michelle Hills RN)232 (Stopped - Provider: Michelle Hills RN) NSS 0.9% 1,000 mL bolus infusion (COMPLETED) Peripheral IV, at 1,000 mL/hr Administer over 60 Minutes, Total of 2L for visit, ONCE, 1 dose, On 08/15/23 at 2145 213 (New Bag - Provider: Michelle Hills RN)223 (Stopped - Provider: Michelle Hills RN) ondansetron (Zofran) inj 4 mg (COMPLETED) 4 mg, IV Push, ONCE, On 08/15/23 at 2115, For 1 dose 2124 (Given - Provider: Michelle Hills RN) ondansetron (Zofran) inj 4 mg (COMPLETED) 4 mg, IV Push, ONCE, On Wed08/16/23 at 0645, For 1 dose 0618 (Given - Provid er: Osei Galaviz RN) oxyCODONE (Oxy IR) tab 10 mg (COMPLETED) 10 mg, Oral, ONCE, On Wed08/16/23 at 0400, For 1 dose 0345 (Given - Provid er: Michelle Hills RN) oxyCODONE (Oxy IR) tab 10 mg (COMPLETED) 10 mg, Oral, ONCE, On Wed08/16/23 at 0945, For 1 dose 0918 (Given - Provid er: Lauren Vanessa RN) promethazine (Phenergan) tab 25 mg (COMPLETED) 25 mg, Oral, ONCE, On 08/15/23 at 2245, For 1 dose 221 (Given - Provider: Michelle Hills RN) promethazine (Phenergan) tab 25 mg (COMPLETED) 25 mg, Oral, ONCE, On Wed08/16/23 at 0945, For 1 dose 0917 (Given - Provid er: Lauren Vanessa RN) documented in this encounter Advance Directives [...] the patient have Health Care Power of Can Reconditioner? No Care Teams [employer] Relationship Specialty Start Date End Date Kinjal Reynoso PA-C [address] [id number] PCP - General Physician Print Traffic Manager 11/05/22 documented as of this encounter
--- OUTSIDE RECORDS SUMMARY | 2024-01-01 09:18 | External Medical Summary | Summary of Care ---
Author Name Unknown Organization [facility] Address [address] [place] [address] Phone [phone] Care Team Providers Care Real Estate Director Name Role Phone Kinjal Reynoso PA-C Primary Care Provider [phone] Reason for Visit * Reason Onset Date Comments Hospital Follow-Up 08/13/2023 MELBA Encounter Details Date Type Department Care Team (Late st Contact Info) Description 08/13/[address] [id number] Trisha Trejo, RN Hospital Follow-Up (/MELBA) Allergies [...] OPIOID OVERDOSE - SEEK IMMEDIATE MEDICAL ATTENTION. [email or web address] 2 Each 3 03/31/2023 Active Peptamen 1.5 Oral Liquid Administer 1000 mL daily, as directed through J Tube via feeding pump [id number] mL 11 04/12/2023 Active Lansoprazole 15 MG [...] visit for follow up: MELBA Admitted to: [facility], Date: 08/08/23 Discharged to: Home, Date: 08/12/23 Diagnosis driving hospitalization: Malfunction of jejunostomy tube LVMM for patient to return call for hospital followup MELBA call. If patient calls back to the clinicplease obtain best time and number to reach patient or they can call me directly at [phone] with any questions or concerns. Please route to Trisha Trejo RN. Thank you documented in this encounter Plan of Treatment Upcoming Encounters Date Type Department Care Team (Late st Contact Info) Description 08/20/2023 1:50 PM EST Telemedicine Nutrition & Weight Management, [facility] [address] [address] Kaity Yap RDN [address] [place] [address] 08/27/2023 9:00 AM EST Office Visit [facility] [address] [phone] Kinjal Reynoso PA-C [address] [address] 09/20/2023 12:40 PM EDT Office Visit Nutrition & Weight Management, [facility] [address] [address] Cee Santizo PA-C [address] [address] 12/08/2023 5:20 PM EDT Office Visit [facility] [address] [phone] Kinjal Reynoso PA-C [address] [facility] [place] [address] Health Maintenance Due Date Last Done Comments [...] this encounter Medical Devices Implanted Type Area Able Bodied Watchman Device Identifier Shelf Expiration Date Model / Serial / Lot Port Implant W/8f Poly Cath - [id number] Implanted:Qty : 1 on 05/18/2023 by Juan Jose Connell, at OR [facility] Right: Chest CR BARD : PERIPHERAL VASCULAR [id number] 11/18/2024 [id number] / / [id number] documented as of this encounter Advance Directives [...] the patient have Health Care Power of Produce Department Manager? No Care Teams Real Estate Director Relationship Specialty Start Date End Date Reynoso, Kinjal Lorenza, PA-C [address] [phone] PCP - General Physician Manager Transportation Planning 11/05/22 documented as of this encounter
--- OUTSIDE RECORDS SUMMARY | 2024-01-01 09:18 | External Medical Summary | Summary of Care ---
Author Name Unknown Organization [facility] Address [address] [place] [address] Phone [phone] Care Team Providers Care Wind Turbine Installer Name Role Phone Kinjal Reynoso PA-C Primary Care Provider [phone] Reason for Visit * Reason Onset Date Comments Medication Refill 08/16/2023 Medication Question 08/16/2023 Dose change Encounter Details Date Type Department Care Team (Late st Contact Info) Description 08/[facility] [address] [phone] Kinjal Reynoso PA-C 21 [facility] [place] [address] Medication Refill; [...] OPIOID OVERDOSE - SEEK IMMEDIATE MEDICAL ATTENTION. [email or web address] 2 Each 3 03/31/2023 Active Peptamen 1.5 Oral Liquid Administer 1000 mL daily, as directed through J Tube via feeding pump 56481 mL 11 04/12/2023 Active Lansoprazole 15 MG [...] PM EST Received call from front office java developer that pt was transferred to them [...] today. * Telephone Encounter - Vivek Taylor gem expert - 08/16/2023 9:55 AM EST Pt requesting high priority. Please see 08/12/2023 prescription Pt currently IP Unit: EMERG[facility]Y MEDICINE [facility] Pt calling in to request a dose change on their oxyCODONE HCl 5 MG Oral Tablet (Oxy IR). Current dose: 5 mg Requested dose: 10 mg Reason for request: Increased pain Preferred pharmacy: [facility] Patient unwilling to speak with pharmacist at this time. Routing to pharmacist pool to advise. Thank you, Vivek Taylor Hide Sorter I [facility] Clinical Pharmacy Services ([facility]PS)(formerly Telepharmacy) 08/16/2023,9:58 AM documented in this encounter Plan of Treatment Upcoming Encounters Date Type Department Care Team (Late st Contact Info) Description 08/20/2023 1:50 PM EST Telemedicine Nutrition & Weight Management, [facility] [address] [place] [address] Kaity Yap RDN [address] [place] [address] 08/27/2023 9:00 AM EST Office Visit [facility] [address] [phone] Kinjal Reynoso PA-C [address] [address] 09/20/2023 12:40 PM EDT Office Visit Nutrition & Weight Management, [facility] [address] [place] [address] Cee Santizo PA-C [address] [place] [address] 12/08/2023 5:20 PM EDT Office Visit [facility] [place] [address] [phone] Kinjal Reynoso PA-C [address] [address] Health Maintenance Due Date Last Done Comments GARDASIL-HPV IMMUNIZATION SE KIM (1 - 3-dose series) 2016 Yearly Wellness Visit 01/03/2023 01/03/2022 , 03/29/2020, 02/22/2019, Additional history exists COVID-19 Vaccine (2022-2 4 season) 2023 Influenza [...] this encounter Medical Devices Implanted Type Area Flexo Press Operator Device Identifier Shelf Expiration Date Model / Serial / Lot Port Implant W/8f Poly Cath - [id number] Implanted:Qty : 1 on 05/18/2023 by Juan Jose Connell, at OR [facility] Right: Chest CR BARD : PERIPHERAL VASCULAR [id number] 11/18/2024 [id number] / / [id number] documented as of this encounter Advance Directives [...] the patient have Health Care Power of Drafting Layout Worker? No Care Teams Wind Turbine Installer Relationship Specialty Start Date End Date Kinjal Reynoso PA-C [address] [address] PCP - General Physician Utility Bill Collector 11/05/22 documented as of this encounter
--- OUTSIDE RECORDS SUMMARY | 2024-01-01 09:18 | External Medical Summary | Summary of Care ---
Author Name Unknown Organization [facility] Address [address] [place] [address] Phone [phone] Care Team Providers Care Lens Gauger Name Role Phone Kinjal Reyonso PA-C Primary Care Provider [phone] Reason for Visit * Reason Comments Medical Nutrition Therapy Weight Management Encounter Details Date Type Department Care Team (Late st Contact Info) Description 08/23/2023 1:50 PM EST Telemedicine Nutrition & Weight Management, [facility] [place] [address] Kaity Yap RDN [address] [place] [address] Gastroparesis*; Class 1 obesity due to excess calories [...] as of this encounter (statuses as of 08/23/2023) Medications Medication Sig Dispensed Refills Start Date End Date Status Naloxone HCl 4 MG/0.1ML Nasal Liquid (Narcan Nasal)Indications: Chronic pelvic pain in female,MEDICATION USE AGREEMENT,Chronic abdominal pain ADMINISTER 1 SPRAY INTO 1 NOSTRIL FOR SUSPECTED OPIOID OVERDOSE - SEEK IMMEDIATE MEDICAL ATTENTION. [email or web address] 2 Each 3 03/31/2023 Active Peptamen 1.5 Oral Liquid Administer 1000 mL daily, as directed through J Tube via feeding pump 94366 mL 11 04/12/2023 Active Lansoprazole 15 MG [...] last 14 days. 54 Tablet 0 08/17/2023 Active documented as of this encounter (statuses as of 08/23/2023) Active Problems Problem Noted Date Diagnosed Date [...] as of this encounter (statuses as of 08/23/2023) Resolved Problems Problem Noted Date Diagnosed Date [...] as of this encounter (statuses as of 08/23/2023) Immunizations Name Administration Dates Next Due DTaP [...] Progress Notes * Kaity Yap RDN - 08/23/2023 1:50 PM EST HOME TUBE FEEDING NUTRITION Follow up isinger Name: Anirudh Marino Jh Location: NUTRITION & WEIGHT MANAGEMENT, [facility] Date: 08/20/2023 Time: 9:47 AM Patient was identified by name and date. Patient location: HOME. I was in a hospital or clinic location. After connecting through [employer],patient was verified with two unique identifiers. Patient (or authorized legal uniforms sales representative) was then informed that this was a Telemedicine visit and being conducted confidentially over secure lines. Methods to assure confidentiality were taken. Patient acknowledged consent and understanding of pr ivacy and security of the Telemedicine visit. The patient agreed to participate. Audio issues with provider. Had to call pt on the phone with her approval. Reason for Referral: Tube Feeds NUTRITION ASSESSMENT: Client History: Age/Sex: 22 year old female PMH: She has a history of endometriosis s/p hysterectomy, gastroparesis s/p PEG tube placement 02/23/2023 08/23/2023 -Routine tube feed follow up -Tube [...] daily with burning, was seen 06/03 at [facility] for tube replacement -Per 06/05 pit hoist operator note: She states that she is having terrible abdominal pain, redness and swelling of GT site, the GT is leaking around insertion site and seems to be clogged as it is difficult to infuse feeds or push medication through. Pt is very upset and crying. Pt will go to [facility] ED now for evaluation. -Has not been able to tolerate much PO intake -Might be readmitted to [facility] for surgery -Half feeds will leak out from tube -Now has a central port, asking about TPN -Waiting to hear back for surgeon office at [facility], could be re-admitted. 04/05/23 -Initial RD visit -DC ~ 1 week ago -Pt sharing she was on osmolite 1.2 during IP stay at [facility] and [place] Barriers to Learning: None Special Education Needs: None Social Demographics: Lives at home with family Food/Nutrition-Related History Oral Diet Recall: B: Does not eat bkfst L: not eating D: maybe eating a half portion -No appetite Can drink with less pain Can drink 16 oz bottle in 5-6 hrs Tried boost, 3 days in does not end well Previous Tube Feeding Regimen: Peptamin 1.5 administered via feeding pump for J tube Feed Goal: 4 cartons a day (1000 TV) administered over 12 hrs. (68 g protein, 772 mL water, 1500 kcals) Water flushes 30 mL Q4H (180 mL) PO water intake: 673 mL (23 oz) Adult Energy Intake: Less than 50% of estimated energy requirement for greater than 5 days (severe,acute illness) Home Infusion Company: [facility] Pertinent Medications (current): Current Outpatient Medications Medication Sig Dispense Refill Naloxone HCl 4 MG/0.1ML Nasal Liquid (Narcan Nasal) ADMINISTER 1 SPRAY INTO 1 NOSTRIL FOR SUSPECTEDOPIOID OVERDOSE - SEEK IMMEDIATE MEDICAL ATTENTION. [email or web address] 2 Each 3 Peptamen 1.5 Oral Liquid Administer 1000 mL daily, as directed through J Tube via feeding pump 82738 mL 11 Lansoprazole 15 MG Oral Capsule Delayed Release 2 Capsules. (Patient not taking: Reported on 07/23/2023) Polyethylene Glycol 3350 17 GM/SCOOP Oral Powder [...] up to 120 doses. 120 Tablet 0 Gabapentin 100 MG Oral Capsule (Neurontin) Take 1 Capsule by mouth in the morning and 1 Capsule at noon and 1 Capsule before bedtime. Take with your 300 mg gabapentin capsule for total of 400 mg per dose.. 90 Capsule 0 oxyCODONE HCl 5 MG Oral Tablet (Oxy IR) Take 1 Tablet by mouth every 6 hours as needed for Pain, Severe (No more than 4 doses in 24 hours.). Must last 14 days. 54 Tablet 0 No current facility-administered medications for this visit. Administration method: PO Current Vitamins/Minerals/Supplements: None Nutrition-Focused Physical Findings Appearance: Deferred, phone cris visit Digestive system: Digestive: Appetite: poor, Early satiety Enteral Access: N/A Placed: Nerves and cognition: Awake, alert Skin: Intact Anthropometrics Measurements Height: 62" reported Weight: 166 lbs measured 08/15/23 ERLIN Wt: 138 lbs 06/07/24 self reported Weight History: Wt Readings from Last 15 Encounters: 08/15/23 75.3 kg (166 lb) 08/08/23 75.3 [...] 3.2 oz) 06/02/23 62.6 kg (138 lb) 05/29/23 62.6 kg (138 lb) 05/25/23 62.6 kg (138 lb) 05/18/23 62.6 kg (138 lb) Biochemical Data, Medical Tests and Procedures Reviewed, WNL NUTRITION DIAGNOSIS: Suboptimal oral intake related to severe gastroparesis as evidenced by pt reporting or worsening epigastric pain with PO intake and reporting she can only eat one small half portion meal a day. NUTRITION INTERVENTION: Two high cris ONS shakes a day: Boost [facility] one early in the day, have one small meal mid day, anotherBoost [facility] later in the day Nutrition Justification of Enteral Feeds: Tube removed, could be considering G/J tube placement if unable to maintain weight via PO intake Nutrition Justification for Enteral Feeding Pump: Not applicable Nutrition Prescription: 25 Kcal/kg Adjusted ideal weight/day (56 kg) = 1400 Kcal/day 1.0-1.2 grams protein/kg Adjusted ideal weight/day = 56-67 grams protein/day Fluid Needs: 25 mL/kg Adjusted ideal weight/ day = 1400 mL/day Tube Feeding Prescription: Goals: Patient will maintain weight., Patient will meet protein needs., Patient will meet calorie needs., Patient will receive adequate nutrition., Patient will meet hydration needs., and Proper feeding administration by self or other. Expected Compliance: Expect compliance with recommended dietary intake outlined above Recommendations to Ordering Provider: Will have pt see GI again for further work up for Gastroparesis, could a referral to Suresh/Dr. Romero be a consideration? NUTRITION MONITORING AND EVALUATION: Monitor patient weight Monitor patient PO intake Monitor patient nutr related labs Monitor patient BMI Plan for Return Appointment: 1 month Minutes of MNT: 20 Kaity Yap RDN NUTRITION & WEIGHT MANAGEMENT, [facility] documented in this encounter Plan of Treatment Upcoming Encounters Date Type Department Care Team (Late st Contact Info) Description 08/27/2023 9:00 AM EST Office Visit [facility] Carol Aguilar [address] [phone] Kinjal Reynoso PA-C [address] [address] 09/20/2023 12:40 PM EDT Office Visit Nutrition & Weight Management, [facility] [address] [address] Cee Santizo PA-C [address] [address] 12/08/2023 5:20 PM EDT Office Visit [facility] [place] [address] [phone] Kinjal Reynoso PA-C [address] [phone] Health Maintenance Due Date Last Done Comments [...] this encounter Medical Devices Implanted Type Area Controls Operator Molded Goods Device Identifier Shelf Expiration Date Model / Serial / Lot Port Implant W/8f Poly Cath - [id number] Implanted:Qty : 1 on 05/18/2023 by Juan Jose Connell, at OR [facility] Right: Chest CR BARD : PERIPHERAL VASCULAR [id number] 11/18/2024 [id number] / / [id number] documented as of this encounter Visit Diagnoses Diagnosis Gastroparesis- Primary Class 1 obesity due to excess calories [...] the patient have Health Care Power of Property Management Accountant? No Care Teams Lens Gauger Relationship Specialty Start Date End Date Kinjal Reynoso PA-C [address] [address] PCP - General Physician Supervisor Powder And Primer Canning 11/05/22 documented as of this encounter
--- OUTSIDE RECORDS SUMMARY | 2024-01-01 09:18 | External Medical Summary | Summary of Care ---
Author Name Unknown Organization [facility] Address [address] [place] [address] Phone [phone] Care Team Providers Care Forge Operator Helper Name Role Phone Kinjal Reynoso PA-C Primary Care Provider [phone] Reason for Visit * Reason Onset Date Comments Medication Refill 08/16/2023 Medication Question 08/16/2023 Dose change Encounter Details Date Type Department Care Team (Late st Contact Info) Description 08/[facility]/[address] [facility] [address] [phone] Kinjal Reynoso PA-C 21 [facility] [place] [address] Medication Refill; Medication [...] OPIOID OVERDOSE - SEEK IMMEDIATE MEDICAL ATTENTION. [email or web address] 2 Each 3 03/31/2023 Active Peptamen 1.5 Oral Liquid Administer 1000 mL daily, as directed through J Tube via feeding pump 41351 mL 11 04/12/2023 Active Lansoprazole 15 MG [...] PM EST Received call from front desk attendant that pt was transferred to them stating [...] today. * Telephone Encounter - Vivek Taylor electric blasting cap assembler - 08/16/2023 9:55 AM EST Pt requesting high priority. Please see 08/12/2023 prescription Pt currently IP Unit: EMERGENCY MEDICINE [facility] Pt calling in to request a dose change on their oxyCODONE HCl 5 MG Oral Tablet (Oxy IR). Current dose: 5 mg Requested dose: 10 mg Reason for request: Increased pain Preferred pharmacy: [facility] Patient unwilling to speak with pharmacist at this time. Routing to pharmacist pool to advise. Thank you, Vivek Taylor Cook Fast Food I Centralized Clinical Pharmacy Services (CCPS)(formerly Telepharmacy) 08/16/2023,9:58 AM documented in this encounter Plan of Treatment Upcoming Encounters Date Type Department Care Team (Late st Contact Info) Description 08/20/2023 1:50 PM EST Telemedicine Nutrition & Weight Management, [facility] [address] [place] [address] Kaity Ypa RDN [address] [place] [address] 08/27/2023 9:00 AM EST Office Visit [facility] [address] [phone] Kinjal Reynoso PA-C [address] [address] 09/20/2023 12:40 PM EDT Office Visit Nutrition & Weight Management, [facility] [address] [place] [address] Cee Santizo PA-C [address] [place] [address] 12/08/2023 5:20 PM EDT Office [facility] [place] [address] [phone] Kinjal Reynoso PA-C [address] [address] Health Maintenance Due Date Last Done Comments [...] this encounter Medical Devices Implanted Type Area Linseed Cake Trimmer Device Identifier Shelf Expiration Date Model / Serial / Lot Port Implant W/8f Poly Cath - [id number] Implanted:Qty : 1 on 05/18/2023 by Juan Jose Connell, at OR [facility] Right: Chest CR BARD : PERIPHERAL VASCULAR [id number] 11/18/2024 [id number] / / [id number] documented as of this encounter Advance Directives [...] patient have Health Care Power of Produce Assistant? No Care Teams Forge Operator Helper Relationship Specialty Start Date End Date Kinjal Reynoso PA-C [address] [address] PCP - General Physician Wood [place] Neck Whipper 11/05/22 documented as of this encounter
--- OUTSIDE RECORDS SUMMARY | 2024-01-01 09:18 | External Medical Summary | Summary of Care ---
Author Name Unknown Organization [facility] Address [address] [place] [address] Phone [phone] Care Team Providers Care Auto Claims Adjuster Name Role Phone Kinjal Reynoso PA-C Primary Care Provider [phone] Reason for Visit * Reason Onset Date Comments Medication Refill 08/16/2023 Medication Question 08/16/2023 Dose change Encounter Details Date Type Department Care Team (Late st Contact Info) Description 08/16/[address] [facility] [address] [phone] Kinjal Reynoso PA-C 21 [facility] [place] [address] Medication Refill; Medication [...] OPIOID OVERDOSE - SEEK IMMEDIATE MEDICAL ATTENTION. [email or web address] 2 Each 3 03/31/2023 Active Peptamen 1.5 Oral Liquid Administer 1000 mL daily, as directed through J Tube via feeding pump 47468 mL 11 04/12/2023 Active Lansoprazole 15 MG [...] 3:56 PM EST Received call from front attendant that pt was transferred to them [...] today. * Telephone Encounter - Vivek Taylor, spot welder - 08/16/2023 9:55 AM EST Pt requesting high priority. Please see 08/12/2023 prescription Pt currently IP Unit: EMER[facility]Y MEDICINE [facility] Pt calling in to request a dose change on their oxyCODONE HCl 5 MG Oral Tablet (Oxy IR). Current dose: 5 mg Requested dose: 10 mg Reason for request: Increased pain [facility] Patient unwilling to speak with pharmacist at this time. Routing to pharmacist pool to advise. Thank you, Vivek Taylor Rib Matcher And Fitter I Centralized Clinical Pharmacy Services (CCPS)(formerly Telepharmacy) 08/16/2023,9:58 AM documented in this encounter Plan of Treatment Upcoming Encounters Date Type Department Care Team (Late st Contact Info) Description 08/20/2023 1:50 PM EST Telemedicine Nutrition & Weight Management, [facility] [address] [address] Kaity Yap RDN [address] [place] [address] 08/27/2023 9:00 AM EST [facility] [address] [phone] Kinjal Reynoso PA-C [address] [address] 09/20/2023 12:40 PM EDT Office Visit Nutrition & Weight Management, [facility] [address] [address] Cee Santizo PA-C [address] [place] [address] 12/08/2023 5:20 PM EDT Office Visit [facility] [place] [address] [phone] Kinjal Reynoso PA-C [address] [place] [address] Health Maintenance Due Date Last Done Comments [...] this encounter Medical Devices Implanted Type Area Rn Appeals Device Identifier Shelf Expiration Date Model / Serial / Lot Port Implant W/8f Poly Cath - [id number] Implanted:Qty : 1 on 05/18/2023 by Juan Joes Connell, at OR [facility] Right: Chest CR BARD : PERIPHERAL VASCULAR [id number] 11/18/2024 [id number] / / [id number] documented as of this encounter Advance Directives [...] the patient have Health Care Power of Bilingual Teacher? No Care Teams Auto Claims Adjuster Relationship Specialty Start Date End Date Kinjal Reynoso PA-C [address] [address] PCP - General Physician Training Lead 11/05/22 documented as of this encounter
--- OUTSIDE RECORDS SUMMARY | 2024-01-01 09:18 | External Medical Summary | Summary of Care ---
Author Name Unknown Organization [facility] Address [address] [place] [address] Phone [phone] Care Team Providers Care Beamer Hand Name Role Phone Kinjal Reynoso PA-C Primary Care Provider [phone] Reason for Visit * Reason Onset Date Comments Medication Refill 08/16/2023 Medication Question 08/16/2023 Dose change Encounter Details Date Type Department Care Team (Late st Contact Info) Description 08/16[facility]23 [facility] [address] [phone] Kinjal Reynoso PA-C 21 [facility] [place] [address] Medication Refill; Medication [...] OPIOID OVERDOSE - SEEK IMMEDIATE MEDICAL ATTENTION. [email or web address] 2 Each 3 03/31/2023 Active Peptamen 1.5 Oral Liquid Administer 1000 mL daily, as directed through J Tube via feeding pump [id number] mL 11 04/12/2023 Active Lansoprazole 15 MG [...] 08/16/2023 3:56 PM EST Received call from assistant front desk manager that pt was transferred to them stating [...] today. * Telephone Encounter - Vivek Taylor silversmith apprentice - 08/16/2023 9:55 AM EST Pt requesting high priority. Please see 08/12/2023 prescription Pt currently IP Unit: EMERGENCY MEDICINE [facility] Pt calling in to request a dose change on their oxyCODONE HCl 5 MG Oral Tablet (Oxy IR). Current dose: 5 mg Requested dose: 10 mg Reason for request: Increased pain Preferred pharmacy: [facility] Patient unwilling to speak with pharmacist at this time. Routing to pharmacist pool to advise. Thank you, Vivek Taylor Help Desk Administrator [facility] ([facility]PS)(formerly Telepharmacy) 08/16/2023,9:58 AM documented in this encounter Plan of Treatment Upcoming Encounters Date Type Department Care Team (Late st Contact Info) Description 08/20/2023 1:50 PM EST Telemedicine Nutrition & Weight Management, [facility] [address] [place] [address] Kaity Yap RDN [address] [address] 08/27/2023 9:00 AM EST Office Visit [facility] [address] [phone] Kinjal Reynoso PA-C [address] [address] 09/20/2023 12:40 PM EDT Office Visit Nutrition & Weight Management, [facility] [address] [address] Cee Santizo PA-C [address] [address] 12/08/2023 5:20 PM EDT Office Visit [facility] [address] [place] [phone] Kinjal Reynoso PA-C [address] [place] [phone] Health Maintenance Due Date Last Done Comments [...] this encounter Medical Devices Implanted Type Area Ski Tow Operator Device Identifier Shelf Expiration Date Model / Serial / Lot Port Implant W/8f Poly Cath - [id number] Implanted:Qty : 1 on 05/18/2023 by Juan Jose Connell DO at OR [facility] Right: Chest CR BARD : PERIPHERAL VASCULAR [id number] 11/18/2024 [id number] / / [id number] documented as of this encounter Advance Directives [...] the patient have Health Care Power of Baling Machine Tender? No Care Teams Beamer Hand Relationship Specialty Start Date End Date Kinjal Reynoso PA-C [address] [phone] PCP - General Physician Assessment Services Manager 11/05/22 documented as of this encounter
--- OUTSIDE RECORDS SUMMARY | 2024-01-01 09:18 | External Medical Summary | Summary of Care ---
Author Name Unknown Organization [facility] Address [address] [place] [address] Phone [phone] Care Team Providers Care Matrix Repairer Name Role Phone Kinjal Reynoso PA-C Primary Care Provider [phone] Reason for Visit * Reason Onset Date Comments Medication Refill 08/16/2023 Medication Question 08/16/2023 Dose change Encounter Details Date Type Department Care Team (Late st Contact Info) Description 08/[facility] [address] [phone] Kinjal Reynoso PA-C 21 [facility] [place] [address] Medication Refill; Medication Question [...] OPIOID OVERDOSE - SEEK IMMEDIATE MEDICAL ATTENTION. [email or web address] 2 Each 3 03/31/2023 Active Peptamen 1.5 Oral Liquid Administer 1000 mL daily, as directed through J Tube via feeding pump 41336 mL 11 04/12/2023 Active Lansoprazole 15 MG [...] - 08/17/2023 3:40 PM EST Patient read message from Kinjal Reynoso. "Dr. Horacio Oleary refilled [...] PM EST Received call from front desk supervisor that pt was transferred to them [...] today. * Telephone Encounter - Vivek Taylor, welding machine operator resistance - 08/16/2023 9:55 AM EST Pt requesting high priority. Please see 08/12/2023 prescription Pt currently IP Unit: EMERGENCY MEDICINE [facility] Pt calling in to request a dose change on their oxyCODONE HCl 5 MG Oral Tablet (Oxy IR). Current dose: 5 mg Requested dose: 10 mg Reason for request: Increased pain Preferred pharmacy: [facility] Patient unwilling to speak with pharmacist at this time. Routing to pharmacist pool to advise. Thank you, Vivek Taylor Dieing Out Machine Operator I [facility] (CCPS)(formerly Telepharmacy) 08/16/2023,9:58 AM documented in this encounter Plan of Treatment Upcoming Encounters Date Type Department Care Team (Late st Contact Info) Description 08/20/2023 1:50 PM EST Telemedicine Nutrition & Weight Management, [facility] [address] [address] Kaity Yap RDN [address] [place] [place] [address] 08/27/2023 9:00 AM EST [facility] [address] [phone] Kinjal Reynoso PA-C [address] [address] 09/20/2023 12:40 PM EDT Office Visit Nutrition & Weight Management, [facility] [address] [place] [place] [address] Cee Santizo PA-C [address] [address] 12/08/2023 5:20 PM EDT Office Visit [facility] [address] [phone] Kinjal Reynoso PA-C [address] [place] [address] Health Maintenance Due Date Last Done Comments [...] this encounter Medical Devices Implanted Type Area Desktop Architect Device Identifier Shelf Expiration Date Model / Serial / Lot Port Implant W/8f Poly Cath - [id number] Implanted:Qty : 1 on 05/18/2023 by Juan Jose Connell, at OR [facility] Right: Chest CR BARD : PERIPHERAL VASCULAR [id number] 11/18/2024 [id number] / / [id number] documented as of this encounter Advance Directives [...] the patient have Health Care Power of Assistant Community Manager? No Care Teams Matrix Repairer Relationship Specialty Start Date End Date Kinjal Reynoso PA-C [address] [address] PCP - General Physician Marketing Production Manager 11/05/22 documented as of this encounter
--- OUTSIDE RECORDS SUMMARY | 2024-01-01 09:18 | External Medical Summary | Summary of Care ---
Author Name Unknown Organization [facility] Address [address] [place] [address] Phone [phone] Care Team Providers Care Manager Critical Care Name Role Phone Kinjal Reynoso PA-C Primary Care Provider [phone] Encounter Details Date Type Department Care Team (Late st Contact Info) Description 08/17/2023 Refill Access Center, [place] [address] [facility] *DO NOT REMOVE THIS DEPARTMENT* [place] [address] Services, Scheduling [address] [place] [address] Chronic pelvic pain in female; Gastroparesis; Malfunction [...] OPIOID OVERDOSE - SEEK IMMEDIATE MEDICAL ATTENTION. [email or web address] 2 Each 3 03/31/2023 Active Peptamen 1.5 Oral Liquid Administer 1000 mL daily, as directed through J Tube via feeding pump 39485 mL 11 04/12/2023 Active Lansoprazole 15 MG [...] 14 days. 54 Tablet 0 08/17/2023 Active oxyCODONE HCl 5 MG Oral Tablet (Oxy IR)Indications:Ch ronic pelvic pain in female,Gastropare sis,Malfunction of jejunostomy tube (HCC) Take 1 Tablet by mouth every 6 hours as needed for Pain, Severe (No more than 4 doses in 24 hours.). Must last 14 days. 54 Tablet 0 08/17/2023 Discontinue d(Refill) documented as of this encounter [...] Encounter - Luis M Menard MD - 08/17/2023 10:02 AM ESTSigned Prescriptions: Disp Refills oxyCODONE HCl 5 MG Oral Tablet (Oxy IR) 54 Tab*0 Sig: Take 1 Tablet by mouth every 6 hours as needed for Pain, Severe (No more than 4 doses in 24 hours.). Must last14 days.Authorizing Provider: LUIS M MENARD * Telephone Encounter - Yumiko Alvares CMA - 08/17/2023 9:40 AM EST Pt transferred to [place] at back line. She was voicing concerns of the pharmacy needing confirmation and OK to fill her script for today 08/17/23. Spoke with Javi at [facility] [place] who would like a new script with note on script that early fill is OK to due temp dose increase on last fill. Pended for approval. * Telephone Encounter - Leah Carver OSA - 08/17/2023 9:30 AM EST HIGH ED UTILIZER Reason for Call: requesting to speak to a nurse Outcome: Appt Not Schedule - Transferred call to clinic documented in this encounter Plan of Treatment Upcoming Encounters Date Type Department Care Team (Late st Contact Info) Description 08/20/2023 1:50 PM EST Telemedicine Nutrition & Weight Management, [facility] [address] [address] Kaity Yap RDN [address] [address] 08/27/2023 9:00 AM EST Office Visit Family [facility] [address] [phone] Kinjal Reynoso PA-C [address] [address] 09/20/2023 12:40 PM EDT Office Visit Nutrition & Weight Management, [facility] [address] [place] [address] Cee Santizo PA-C [address] [place] [address] 12/08/2023 5:20 PM EDT Office Visit [facility] [place] [address] [phone] Kinjal Reynoso PA-C [address] [place] [phone] Health Maintenance Due Date Last Done Comments [...] this encounter Medical Devices Implanted Type Area Junior Net Developer Device Identifier Shelf Expiration Date Model / Serial / Lot Port Implant W/8f Poly Cath - [id number] Implanted:Qty : 1 on 05/18/2023 by Juan Jose Connell DO at OR [facility] Right: Chest CR BARD : PERIPHERAL VASCULAR [id number] 11/18/2024 [id number] / / [id number] documented as of this encounter Visit Diagnoses [...] the patient have Health Care Power of Natural Resource Economist? No Care Teams Manager Critical Care Relationship Specialty Start Date End Date Kinjal Reynoso PA-C [address] [phone] PCP - General Physician School Health Aide 11/05/22 documented as of this encounter
--- OUTSIDE RECORDS SUMMARY | 2024-01-01 09:18 | External Medical Summary | Summary of Care ---
Author Name Unknown Organization [facility] Address [address] [place] [address] Phone [phone] Care Team Providers Care Take Up Supervisor Name Role Phone Kinjal Reynoso PA-C Primary Care Provider [phone] Reason for Visit * Reason Onset Date Comments Hospital Follow-Up 08/13/2023 MELBA Encounter Details Date Type Department Care Team (Late st Contact Info) Description 08/13/[address] [phone] Trisha Trejo, RN Hospital Follow-Up (/MELBA) Allergies [...] OPIOID OVERDOSE - SEEK IMMEDIATE MEDICAL ATTENTION. [email or web address] 2 Each 3 03/31/2023 Active Peptamen 1.5 Oral Liquid Administer 1000 mL daily, as directed through J Tube via feeding pump 39404 mL 11 04/12/2023 Active Lansoprazole 15 MG [...] Telephone Encounter - Trisha Trejo RN - 08/16/2023 2:42 PM EST Transitions of Care Note Reason for Referral:Recent Admission Phone visit for follow up: MELBA [place] [facility] Date: 08/08/23 Discharged to: Home, Date: 08/12/23 Diagnosis driving hospitalization: Malfunction of jejunostomy tube No answer. No ability to leave voicemail. * Telephone Encounter - Trisha Trejo RN - 08/13/2023 9:39 AM EST Transitions of Care Note Reason for Referral:Recent Admission Phone visit for follow up: MELBA Ad[place]: [facility] Date: 08/08/23 Discharged to: Home, Date: 08/12/23 Diagnosis driving hospitalization: Malfunction of jejunostomy tube LVMM for patient to return call for hospital followup MELBA call. If patient calls back to the clinicplease obtain best time and number to reach patient or they can call me directly at [phone] with any questions or concerns. Please route to Trisha Trejo RN. Thank you documented in this encounter Plan of Treatment Upcoming Encounters Date Type Department Care Team (Late st Contact Info) Description 08/20/2023 1:50 PM EST Telemedicine Nutrition & Weight Management, [facility] [address] [place] [address] Kaity Yap RDN [address] [place] [address] 08/27/2023 9:00 AM EST [facility] [address] [place] [phone] Kinjal Reynoso PA-C [address] [address] 09/20/2023 12:40 PM EDT Office Visit Nutrition & Weight Management, [facility] [address] [place] [address] Cee Santizo PA-C [address] [address] 12/08/2023 5:20 PM EDT [facility] [address] [phone] Kinjal Reynoso PA-C [address] [address] Health Maintenance Due Date Last Done Comments [...] this encounter Medical Devices Implanted Type Area Auto Salvage Worker Device Identifier Shelf Expiration Date Model / Serial / Lot Port Implant W/8f Poly Cath - [id number] Implanted:Qty : 1 on 05/18/2023 by Juan Jose Connell DO at OR [facility] Right: Chest CR BARD : PERIPHERAL VASCULAR [id number] 11/18/2024 [id number] / / [id number] documented as of this encounter Advance Directives [...] patient have Health Care Power of Regional Sales Trainer? No Care Teams Take Up Supervisor Relationship Specialty Start Date End Date Kinjal Reynoso PA-C [address] [phone] PCP - General Physician Licensed Practical Vocational Nurse 11/05/22 documented as of this encounter
--- OUTSIDE RECORDS SUMMARY | 2024-01-01 09:19 | External Medical Summary ---
Author Name Unknown Address Unknown Organization [facility] - [address] [place] [address] Laboratory Report Ordering Provider Test Date Status ANGEL VITAL 08/15/2023 21:17:27 Final Observation Date Value Abnormality Reference (Units ) Status Lactic Acid 08/15/2023 21:17:27 1.3 0.4-2.0 (mmol/L) Final Performing Location [facility] - [address] [place] [address]
--- OUTSIDE RECORDS SUMMARY | 2024-01-01 09:19 | External Medical Summary ---
Author Name Unknown Address Unknown Organization [facility] - [address] [facility] [place] [address] Laboratory Report Ordering Provider Test Date Status ANGEL VITAL 08/15/2023 21:17:27 Final Observation Date Value Abnormality Reference (Units ) Status BUN 08/15/2023 21:17:27 7 6-20 (mg/dL) Final Creatinine 08/15/2023 21:17:27 0.6 0.5-1.0 (mg/dL) Final Glomerular filtration rate/1.73 sq M.predicted [Volume Rate/Area] in Serum, Plasma or Blood by Creatinine-based formula (CKD-EPI) 08/15/2023 21:17:27 >90 >=60 (mL/min) Final eGFR is calculated based on the CKD-EPI 2020 equation SODIUM 08/15/2023 21:17:27 138 135-146 (m mol/L) Final Potassium 08/15/2023 21:17:27 4.1 3.5-5.1 (m mol/L) Final Cl 08/15/2023 21:17:27 105 98-107 (mm ol/L) Final CO2 08/15/2023 21:17:27 21 Below low normal 22- 32 (mmol/L) Final Anion gap 08/15/2023 21:17:27 12 7-15 (mmol /L) Final Glucose 08/15/2023 21:17:27 103 70-120 (mg /dL) Final Albumin 08/15/2023 21:17:27 4.0 3.8-5.0 (g /dL) Final AST (Aspartate aminotransferase) 08/15/2023 21:17:27 14 10-35 (U/L) Fin al Alk Phos 08/15/2023 21:17:27 73 35-130 (U/ L) Final Bilirubin, Total 08/15/2023 21:17:27 0.2 <=1 .2 (mg/dL) Final Calcium 08/15/2023 21:17: 9.1 8.4-10.2 ( mg/dL) Final Protein 08/15/2023:: 7.0 6.0-8.3 (g /dL) Final ALT (Alanine aminotransferase) 08/15/2023:17: 10 10-35 (U/L) Spencer esteves Performing Location LABORATORY [facility] [place] [address]
--- OUTSIDE RECORDS SUMMARY | 2024-01-01 09:19 | External Medical Summary ---
Author Name Unknown Address Unknown Organization K1F:LABORATORY [facility] - [address] [place] [address] Laboratory Report Ordering Provider Test Date Status ANGEL VITAL 08/15/2023 21:17:27 Final Observation Date Value Abnormality Reference (Units ) Status WBC, Total 08/15/2023 21:17:27 5.08 4.00-10.80 (K/uL) Final RBC 08/15/2023 21:17:27 4.30 3.85-5.15 (M/uL) Final Hemoglobin 08/15/2023 21:17:27 13.2 12.0-15.3 (g/dL) Final HCT 08/15/2023 21:17:27 38.0 36.0-45.2 (%) Final MCV 08/15/2023 21:17:27 88.4 81.5-97.5 (fL) Final MCH 08/15/2023 21:17:27 30.7 27.0-34.0 (pg) Final MCHC 08/15/2023 21:17:27 34.7 32.0-36.0 (g/dL) Final RDW 08/15/2023 21:17:27 13.2 11.5-15.5 (%) Final Platelets 08/15/2023 21:17:27 263 140-400 (K/uL) Final MPV 08/15/2023 21:17:27 10.4 6.6-11.1 (fL) Final Nucleated erythrocytes/100 leukocytes [Ratio] in Blood by Automated count 08/15/2023 21:17:27 0 <=0 (/100 WBCs) Final Performing Location LAB[facility]ATORY [facility] - [address] [place] [address]
--- OUTSIDE RECORDS SUMMARY | 2024-01-01 09:19 | External Medical Summary ---
Author Name Unknown Address Unknown Organization K01:LABORATORY [facility] - [address] [place] [address] Laboratory Report Ordering Provider Test Date Status BONNY MARSHALL 08/12/2023 11:21:42 Final Observation Date Value Abnormality Reference (Units ) Status BUN 08/12/2023 11:21:42 7 6-20 (mg/dL) Final Creatinine 08/12/2023 11:21:42 0.6 0.5-1.0 (mg/dL) Final Glomerular filtration rate/1.73 sq M.predicted [Volume Rate/Area] in Serum, Plasma or Blood by Creatinine-based formula (CKD-EPI) 08/12/2023 11:21:42 >90 >=60 (mL/min) Final eGFR is calculated based on the CKD-EPI 2020 equation SODIUM 08/12/2023 11:21:42 137 135-146 (m mol/L) Final Potassium 08/12/2023 11:21:42 3.7 3.5-5.1 (m mol/L) Final Cl 08/12/2023 11:21:42 104 98-107 (mm ol/L) Final CO2 08/12/2023 11:21:42 23 22-32 (mmo l/L) Final Anion gap 08/12/2023 11:21:42 10 7-15 (mmol /L) Final Glucose 08/12/2023 11:21:42 116 70-120 (mg /dL) Final Calcium 08/12/2023 11:21:42 8.5 8.4-10.2 ( mg/dL) Final Performing Location LABORATORY [facility] - [address] [place] [address]
--- OUTSIDE RECORDS SUMMARY | 2024-01-01 09:19 | External Medical Summary ---
Author Name Unknown Address Unknown Organization K01:LABORATORY [facility] - [address] [facility] [place] [address] Laboratory Report Ordering Provider Test Date Status BONNY MARSHALL 08/11/2023 10:25:44 Final Observation Date Value Abnormality Reference (Units ) Status BUN 08/11/2023 10:25:44 6 6-20 (mg/dL) Final Creatinine 08/11/2023 10:25:44 0.6 0.5-1.0 (mg/dL) Final Glomerular filtration rate/1.73 sq M.predicted [Volume Rate/Area] in Serum, Plasma or Blood by Creatinine-based formula (CKD-EPI) 08/11/2023 10:25:44 >90 >=60 (mL/min) Final eGFR is calculated based on the CKD-EPI 2020 equation SODIUM 08/11/2023 10:25:44 137 135-146 (m mol/L) Final Potassium 08/11/2023 10:25:44 3.4 Below low normal 3.5 -5.1 (mmol/L) Final Cl 08/11/2023 10:25:44 103 98-107 (mm ol/L) Final CO2 08/11/2023 10:25:44 23 22-32 (mmo l/L) Final Anion gap 08/11/2023 10:25:44 11 7-15 (mmol /L) Final Glucose 08/11/2023 10:25:44 79 70-120 (mg /dL) Final Albumin 08/11/2023 10:25:44 3.6 Below low normal 3.8 -5.0 (g/dL) Final AST (Aspartate aminotransferase) 08/11/2023 10:25:44 14 10-35 (U/L) Fin al Alk Phos 08/11/2023 10:25:44 64 35-130 (U/ L) Final Bilirubin, Total 08/11/2023 10:25:44 0.4 <=1 .2 (mg/dL) Final Calcium 08/11/2023 10:25:44 8.2 Below low normal 8.4 -10.2 (mg/dL) Final Protein 08/11/2023 10:25:44 6.0 6.0-8.3 (g /dL) Final ALT (Alanine aminotransferase) 08/11/2023 10:25:44 11 10-35 (U/L) Spencer esteves Performing Location LABORATORY [facility] - [address] [facility] [address]
--- OUTSIDE RECORDS SUMMARY | 2024-01-01 09:19 | External Medical Summary ---
Author Name Unknown Address Unknown Organization K1F:LABORATORY [facility] - [address] [facility] [address] Laboratory Report Ordering Provider Test Date Status ANGEL VITAL 08/15/2023 21:17:27 Final hCG can serve as a screening [...] +Beta subunit [Units/volume] in Serum or Plasma 08/15/2023 21:17:27 <0.1 <=1.0 (mIU/mL) Final Performing Location LABORATORY [facility] - [address] [facility] [address]
--- OUTSIDE RECORDS SUMMARY | 2024-01-01 09:19 | External Medical Summary ---
Author Name Unknown Address Unknown Organization K01:[facility] [place] [address] [place] [address] Laboratory Report Ordering Provider Test Date Status KESHAV MITCHELL 08/09/2023 06:32:00 Final Observation Date Value Abnormality Reference (Units ) Status BUN 08/09/2023 06:32:00 5 Below low normal 6-20 (mg/dL) Final Creatinine 08/09/2023 06:32:00 0.7 0.5-1.0 (mg/dL) Final Glomerular filtration rate/1.73 sq M.predicted [Volume Rate/Area] in Serum, Plasma or Blood by Creatinine-based formula (CKD-EPI) 08/09/2023 06:32:00 >90 >=60 (mL/min) Final eGFR is calculated based on the CKD-EPI 2020 equation SODIUM 08/09/2023 06:32:00 140 135-146 (m mol/L) Final Potassium 08/09/2023 06:32:00 4.4 3.5-5.1 (m mol/L) Final Cl 08/09/2023 06:32:00 107 98-107 (mm ol/L) Final CO2 08/09/2023 06:32:00 21 Below low normal 22- 32 (mmol/L) Final Anion gap 08/09/2023 06:32:00 12 7-15 (mmol /L) Final Glucose 08/09/2023 06:32:00 83 70-120 (mg /dL) Final Calcium 08/09/2023 06:32:00 8.8 8.4-10.2 ( mg/dL) Final Performing Location LAB[facility] - [address] [place] [address]
--- OUTSIDE RECORDS SUMMARY | 2024-01-01 09:19 | External Medical Summary ---
Author Name Unknown Address Unknown Organization K01:[facility] - [address] [place] [address] Laboratory Report Ordering Provider Test Date Status JANELLBONNY LORENZANA 08/11/2023 10:25:44 Final Observation Date Value Abnormality Reference (Units ) Status Magnesium 08/11/2023 10:25:44 2.2 1.5-2.6 (m g/dL) Final Performing Location LABORATORY [facility] - [address] [place] [address]
--- OUTSIDE RECORDS SUMMARY | 2024-01-01 09:19 | External Medical Summary ---
Author Name Unknown Address Unknown Organization K1F:LABORATORY [facility] - [address] [place] [address] Laboratory Report Ordering Provider Test Date Status ANGEL VITAL 08/15/2023 21:17:27 Final Observation Date Value Abnormality Reference (Units ) Status Lipase 08/15/2023 21:17:27 21 13-60 (U/L ) Final Performing Location LABORATORY [facility] - [address] [place] [address]
--- OUTSIDE RECORDS SUMMARY | 2024-01-01 09:19 | External Medical Summary | Summary of Care ---
Author Name Unknown Organization [facility] Address [address] [place] [address] Phone [phone] Care Team Providers Care Carpenter Assembler Name Role Phone Kinjal Reynoso PA-C Primary Care Provider [phone] Reason for Visit * Reason Onset Date Comments Hospital Follow-Up 08/13/2023 MELBA Encounter Details Date Type Department Care Team (Late st Contact Info) Description 08/13/[address] [phone] Trisha Trejo, RN Hospital Follow-Up (/MELBA) Allergies [...] as of this encounter (statuses as of 08/13/2023) Medications Medication Sig Dispensed Refills Start Date [...] directed through J Tube via feeding pump 51426 mL 11 04/12/2023 Active Lansoprazole 15 MG [...] 06/14/2023 Active Acetaminophen 160 MG/5ML Oral Suspension (Tylenol)Indication [...] oxyCODONE HCl 5 MG Oral Tablet (Oxy IR)Indications:Malf unction of jejunostomy tube (HCC),Chronic pelvic pain in female,Gastroparesi s Take 1 Tablet by mouth every 6 hours as needed for Pain, Severe (No more than 4 doses in 24 hours.). 0 08/12/2023 Active documented as of this encounter (statuses as of 08/13/2023) Active Problems Problem Noted Date Diagnosed Date [...] as of this encounter (statuses as of 08/13/2023) Resolved Problems Problem Noted Date Diagnosed Date [...] as of this encounter (statuses as of 08/13/2023) Immunizations Name Administration Dates Next Due DTaP [...] Miscellaneous Notes * Telephone Encounter - Trisha Trejo, RN - 08/13/2023 9:39 AM EST Transitions of Care Note Reason for Referral:Recent Admission Phone visit for follow up: MELBA [place] [facility]: 08[place]08[place]23 Discharged to: Home, Date: 08/12/23 Diagnosis driving hospitalization: Malfunction of jejunostomy tube LVMM for patient to return call for hospital followup MELBA call. If patient calls back to the clinicplease obtain best time and number to reach patient or they can call me directly at [phone] with any questions or concerns. Please route to Trisha Trejo RN. Thank you documented in this encounter Plan of Treatment Upcoming Encounters Date Type Department Care Team (Late st Contact Info) Description 08/20/2023 1:50 PM EST Telemedicine Nutrition & Weight Management, [address] [place] [address] Kaity Yap RDN [address] [place] [address] 09/20/2023 12:40 PM EDT Office Visit Nutrition & Weight Management, [facility] [address] [place] [address] Cee Santizo PA-C [address] [place] [address] 12/08/2023 5:20 PM EDT Office Visit Family [facility] [place] [address] [facility] [place] [address] Kinjal Reynoso PA-C [address] [facility] [place] [address] Health Maintenance Due Date Last Done Comments [...] this encounter Medical Devices Implanted Type Area Tar Distillation Supervisor Device Identifier Shelf Expiration Date Model / Serial / Lot Port Implant W/8f Poly Cath - [id number] Implanted:Qty : 1 on 05/18/2023 by Juan Jose Connell, at OR [facility] Right: Chest CR BARD : PERIPHERAL VASCULAR [id number] 11/18/2024 [id number] / / [id number] documented as of this encounter Advance Directives [...] the patient have Health Care Power of Hand Striper? No Care Teams Carpenter Assembler Relationship Specialty Start Date End Date Kinjal Reynoso PA-C [address] [place] [address] [address] PCP - General Physician Customer Support Consultant 11/05/22 documented as of this encounter
--- OUTSIDE RECORDS SUMMARY | 2024-01-01 09:19 | External Medical Summary | Summary of Care ---
Author Name Unknown Organization [facility] Address [address] [place] [address] Phone [phone] Care Team Providers Care Jet Pilot Name Role Phone Kinjal Reynoso PA-C Primary Care Provider [phone] Encounter Details Date Type Department Care Team (Late st Contact Info) Description 05/12/2023 Telephone [facility] [place] [address] Kinjal Reynoso PA-C [facility] [place] [address] Allergies Active Allergy Reactions Criticality Noted [...] as of this encounter (statuses as of 08/11/2023) Medications Medication Sig Dispensed Refills Start Date End Date Status Naloxone HCl 4 MG/0.1ML Nasal Liquid (Narcan Nasal)Indications: Chronic pelvic pain in female,MEDICATION USE AGREEMENT,Chronic abdominal pain ADMINISTER 1 SPRAY INTO 1 NOSTRIL FOR SUSPECTED OPIOID OVERDOSE - SEEK IMMEDIATE MEDICAL ATTENTION. [email or web address] 2 Each 3 03/31/2023 Suspended Additional Information Peptamen 1.5 Oral Liquid Administer 1000 mL daily, as directed through J Tube via feeding pump 97406 mL 11 04/12/2023 Suspended Additional Information Lansoprazole 15 MG Oral Capsule Delayed Release 2 Capsules. 0 05/18/2023 Suspende d documented as of this encounter (statuses as of 08/11/2023) Active Problems Problem Noted Date Diagnosed Date [...] as of this encounter (statuses as of 08/11/2023) Resolved Problems Problem Noted Date Diagnosed Date [...] as of this encounter (statuses as of 08/11/2023) Immunizations Name Administration Dates Next Due DTaP [...] No 02/02/2023 documented as of this encounter Plan of Treatment Upcoming Encounters Date Type Department Care Team (Late st Contact Info) Description 08/20/2023 1:50 PM EST Telemedicine Nutrition & Weight Management, [facility] [address] [place] [address] Kaity Yap RDN [address] [place] [address] 09/20/2023 12:40 PM EDT Office Visit Nutrition & Weight Management, [facility] [address] [place] [address] Cee Santizo PA-C [address] [place] [address] 12/08/2023 5:20 PM EDT Office Visit Family [facility], [place] [address] [facility] [place] [address] Kinjal Reynoso PA-C [address] [facility] [place] [...] this encounter Medical Devices Implanted Type Area Gameroom Technician Device Identifier Shelf Expiration Date Model / Serial / Lot Port Implant W/8f Poly Cath - [id number] Implanted:Qty : 1 on 05/18/2023 by Juan Jose Connell, at OR [facility] Right: Chest CR BARD : PERIPHERAL VASCULAR [id number] 11/18/2024 [id number] / / [id number] documented as of this encounter Additional Health Concerns Infection Onset Date Last Indicated Resolved Time Respiratory Rule-Out 06/14/2023 06/14/2023 023 12:43 PM EST COVID-19 Rule-Out 06/14/2023 06/14/2023 06/14/2023 12:43 PM EST documented as of this encounter Advance Directives Latest Code Status on File Code Status Date Activated Date Inactivated Comments Full Code 08/08/2023 8:32 PM This order reflects the patients wishes [...] the patient have Health Care Power of Languages And Literature Instructor? No Care Teams Jet Pilot Relationship Specialty Start Date End Date Kinjal Reynoso PA-C [address] [place] [address] [address] PCP - General Physician Cigar Packer And Sorter 11/05/22 documented as of this encounter
--- OUTSIDE RECORDS SUMMARY | 2024-01-01 09:19 | External Medical Summary ---
Author Name Unknown Address Unknown Organization [id number]:LABORATORY [facility] - [address] [place] [address] Laboratory Report Ordering Provider Test Date Status ANGEL VITAL 08/15/2023 21:17:27 Final Observation Date Value Abnormality Reference (Units ) Status Magnesium 08/15/2023 21:17:27 2.2 1.5-2.6 (m g/dL) Final Performing Location LABORATORY [facility] - [address] [place] [address]
--- OUTSIDE RECORDS SUMMARY | 2024-01-01 09:19 | External Medical Summary ---
Author Name Unknown Address Unknown Organization K01:[place] [facility] [place] [address] [place] [address] Laboratory Report Ordering Provider Test Date Status BONNY MARSHALL 08/12/2023 11:21:42 Final Observation Date Value Abnormality Reference (Units ) Status Albumin 08/12/2023 11:21:42 3.5 Below low normal 3.8-5.0 (g/dL) Final AST (Aspartate aminotransferase) 08/12/2023 11:21:42 13 10-35 (U/L) Final Alk Phos 08/12/2023 11:21:42 64 35-130 (U/L) Final ALT (Alanine aminotransferase) 08/12/2023 11:21:42 11 10-35 (U/L) Final Bilirubin, Total 08/12/2023 11:21:42 0.2 <=1.2 (mg/dL) Final Bilirubin, Direct 08/12/2023 11:21:42 <0.2 0.0-0.3 (mg/dL) Final Protein 08/12/2023 11:21:42 6.0 6.0-8.3 (g/dL) Final Performing Location [place] [facility] [place] [address] [place] [address]
--- OUTSIDE RECORDS SUMMARY | 2024-01-01 09:19 | External Medical Summary ---
Author Name Unknown Address Unknown Organization K1F:LABORATORY [facility] - [address] [place] [address] Laboratory Report Ordering Provider Test Date Status ANGEL VITAL 08/15/2023 21:17:27 Final Observation Date Value Abnormality Reference (Units ) Status Phosphate 08/15/2023 21:17:27 2.8 2.5-4.8 (m g/dL) Final Performing Location LABORATORY [facility] - [address] [place] [address]
--- OUTSIDE RECORDS SUMMARY | 2024-01-01 09:19 | External Medical Summary ---
Author Name Unknown Address Unknown Organization K01:LABORATORY [facility] - [address] [facility] [address] Laboratory Report Ordering Provider Test Date Status KESHAV MITCHELL 08/09/2023 06:32:00 Final Observation Date Value Abnormality Reference (Units ) Status WBC, Total 08/09/2023 06:32:00 5.73 4.00-10.80 (K/uL) Final RBC 08/09/2023 06:32:00 4.21 3.85-5.15 (M/uL) Final Hemoglobin 08/09/2023 06:32:00 13.0 12.0-15.3 (g/dL) Final HCT 08/09/2023 06:32:00 35.6 Below low normal 36.0-45.2 (%) Final MCV 08/09/2023 06:32:00 84.6 81.5-97.5 (fL) Final MCH 08/09/2023 06:32:00 30.9 27.0-34.0 (pg) Final MCHC 08/09/2023 06:32:00 36.5 32.0-36.0 (g/dL) Final RDW 08/09/2023 06:32:00 12.6 11.5-15.5 (%) Final Platelets 08/09/2023 06:32:00 222 140-400 (K/uL) Final MPV 08/09/2023 06:32:00 10.5 6.6-11.1 (fL) Final Nucleated erythrocytes/100 leukocytes [Ratio] in Blood by Automated count 08/09/2023 06:32:00 1 Above high normal <=0 (/100 WBCs) Final Performing Location LABORATORY [facility] - [address] [place] [address]
--- OUTSIDE RECORDS SUMMARY | 2024-01-01 09:19 | External Medical Summary ---
Author Name Unknown Address Unknown Organization K01:[place] [facility] [place] [facility] [address] [facility] [address] Laboratory Report Ordering Provider Test Date Status BONNY MARSHALL 08/11/2023 10:25:44 Final Observation Date Value Abnormality Reference (Units ) Status WBC, Total 08/11/2023 10:25:44 5.63 4.00-10.80 (K/uL) Final RBC 08/11/2023 10:25:44 3.79 3.85-5.15 (M/uL) Final Hemoglobin 08/11/2023 10:25:44 11.5 Below low normal 12.0-15.3 (g/dL) Final HCT 08/11/2023 10:25:44 32.0 Below low normal 36.0-45.2 (%) Final MCV 08/11/2023 10:25:44 84.4 81.5-97.5 (fL) Final MCH 08/11/2023 10:25:44 30.3 27.0-34.0 (pg) Final MCHC 08/11/2023 10:25:44 35.9 32.0-36.0 (g/dL) Final RDW 08/11/2023 10:25:44 12.7 11.5-15.5 (%) Final Platelets 08/11/2023 10:25:44 225 140-400 (K/uL) Final MPV 08/11/2023 10:25:44 10.2 6.6-11.1 (fL) Final Nucleated erythrocytes/100 leukocytes [Ratio] in Blood by Automated count 08/11/2023 10:25:44 0 <=0 (/100 WBCs) Final Performing Location [place] [facility] [place] [address] [place] [address]
--- OUTSIDE RECORDS SUMMARY | 2024-01-01 09:19 | External Medical Summary | Summary of Care ---
Author Name Unknown Organization [facility] Address [address] [place] [address] Phone [phone] Care Team Providers Care Fluid Jet Cutter Operator Name Role Phone Kinjal Reynoso PA-C Primary Care Provider [phone] Reason for Visit * Reason Comments Medication Refill Encounter Details Date Type Department Care Team (Late st Contact Info) Description 08/09/2023 Refill [facility] [address] [facility] [place] [address] Luis M Menard MD [address] [facility] [place] [address] Chronic pelvic pain in female; Gastroparesis; [...] as of this encounter (statuses as of 08/10/2023) Medications Medication Sig Dispensed Refills Start Date End Date Status oxyCODONE HCl 5 MG Oral Tablet (Oxy IR)Indications:Ch ronic pelvic pain in female,Gastropare sis,Malfunction of jejunostomy tube (HCC) Take 1 Tablet by mouth every 6 hours as needed for Pain, Severe (No more than 4 doses in 24 hours.). 54 Tablet 0 08/09/2023 Active Naloxone HCl 4 MG/0.1ML Nasal Liquid (Narcan Nasal)Indications :Chronic pelvic pain in female,MEDICATION USE AGREEMENT,Chronic abdominal pain ADMINISTER 1 SPRAY INTO 1 NOSTRIL FOR SUSPECTED OPIOID OVERDOSE - SEEK IMMEDIATE MEDICAL ATTENTION. [email or web address] 2 Each 3 03/31/2023 Suspended Additional Information Peptamen 1.5 Oral Liquid Administer 1000 mL daily, as directed through J Tube via feeding pump 01011 mL 11 04/12/2023 Suspended Additional Information Lansoprazole 15 MG Oral Capsule Delayed Release 2 Capsules. 0 05/18/2023 Suspende d Polyethylene Glycol 3350 17 GM/SCOOP Oral Powder (MiraLax) Stir and dissolve 17 g (measuring line inisde of cap) in 4 to 8 ounces of any liquid and adminsiter into Gastric Tube in the morning and repeat same steps before bedtime. 238 g 1 05/24/2023 Suspended Additional Information Lidocaine 5 % External Patch (Lidoderm) Place 1 patch to skin over 12 hours every 24 hours Remove patch after 12 hours.. 30 Patch 0 06/03/2023 Suspended Additional Information Patient not taking.Reported on 07/23/2023 Promethazine HCl 25 MG Oral Tablet (Phenergan) Take 1 Tablet by mouth every 6 hours as needed for Nausea for up to 90 doses. Crush and mix with water then give through jejunostomy tube, then flush with at least 20 ml of water, use one-half tablet if it feels too strong. 90 Tablet 0 06/14/2023 Suspended Additional Information Acetaminophen 160 MG/5ML Oral Suspension (Tylenol)Indicati ons:Chronic pelvic pain in female,Gastropare sis,Malfunction of jejunostomy tube (HCC) Administer 31.2 mL into J tube every 8 hours as needed for Pain, Moderate. 472 mL 5 07/26/2023 Suspended Additional Information oxyCODONE HCl 5 MG Oral Tablet (Oxy IR)Indications:Ch ronic pelvic pain in female,Gastropare sis,Malfunction of jejunostomy tube (HCC) Take 1 Tablet by mouth every 6 hours as needed for Pain, Severe (May take 5th dose for breakthrough pain.). 70 Tablet 0 07/27/2023 Suspended Additional Information documented as of this encounter (statuses as of 08/10/2023) Active Problems Problem Noted Date Diagnosed Date [...] as of this encounter (statuses as of 08/10/2023) Resolved Problems Problem Noted Date Diagnosed Date [...] as of this encounter (statuses as of 08/10/2023) Immunizations Name Administration Dates Next Due DTaP [...] Encounter - Luis M Menard MD - 08/10/2023 8:23 AM EST Unclear why these still print for her. Not needed at this time if admitted. * Telephone Encounter - Amina Bailey MED ASSIST - 08/09/2023 3:03 PM EST Per chart pt is currently admitted. Pt calling pharmacy for script and it printed in the office as normal. Please advise as still list pt as admitted. * Telephone Encounter - Luis M Menard MD - 08/09/2023 12:56 PM ESTSigned Prescriptions: Disp Refills oxyCODONE HCl 5 MG Oral Tablet (Oxy IR) 54 Tab*0 Sig: Take 1 Tablet by mouth every 6 hours as needed for Pain, Severe (No more than 4 doses in 24 hours.). Authorizing Provider: LUIS M MENARD * Telephone Encounter - Paty Ramirez [facility] - 08/09/2023 9:47 AM ESTPending Prescriptions: Disp Refills oxyCODONE HCl 5 MG Oral Tablet (Oxy IR) 70 Tab*0 Sig: Take 1 Tablet by mouth every 6 hours as needed for Pain, Severe (May take 5th dose for breakthrough pain, no more than 5 tabs in 24 hours.). Do not start before July 30, 2023. Electronically signed by Paty Ramirez [facility] at 08/09/2023 9:47 AM EST * Telephone Encounter - Paty Ramirez [facility] - 08/09/2023 9:45 AM EST Did you pend patient's preferred pharmacy and medication before forwarding?yes Pharmacy: [facility] Pending Prescriptions: Disp Refills oxyCODONE HCl 5 MG Oral Tablet (Oxy IR) 70 Tab*0 Sig: Take 1 Tablet by mouth every 6 hours as needed for Pain, Severe (May take 5th dose for breakthrough pain, no more than 5 tabs in 24 hours.). Do not start before July 30, 2023. Last Visit: 07/23/2023 (in office), 09/10/2022 (telemedicine) Next Visit: 12/08/2023 If no future appointments scheduled, and last appointment is greater than a year ago, please schedule patient for a follow-up appointment Last date the medication was ordered: 07/27/23 Is this request for a controlled substance?Yes Urine Drug Screen: Results for orders placed [...] Labs: Lab Results Component Value Date/Time CREAT 0.7 08/09/2023 06:32 AM CREAT 0.69 03/21/2023 12:00 AM CREAT 0.8 06/10/2020 11:01 AM POTASSIUM 4.4 08/09/2023 06:32 AM POTASSIUM 3.9 03/21/2023 12:00 AM POTASSIUM 3.4 (L) 01/04/2021 02:25 AM POTASSIUM 3.5 06/10/2020 11:01 AM TSH 0.76 03/29/2023 12:06 PM TSH 1.15 03/23/2023 12:00 AM TSH 0.76 03/29/2020 02:40 PM LDLCALC 165 (H) 03/29/2023 12:06 PM LDLCALC 106 12/04/2016 11:50 AM ALT 11 08/07/2023 12:50 PM ALT 10 06/10/2020 11:01 AM HGBA1C 5.0 03/02/2023 02:29 AM documented in this encounter Plan of Treatment Upcoming Encounters Date Type Department Care Team (Late st Contact Info) Description 08/20/2023 1:50 PM EST Telemedicine Nutrition & Weight Management, [facility] [address] [address] Kaity Yap RDN [address] [address] 09/20/2023 12:40 PM EDT Office Visit Nutrition & Weight Management, [facility] [address] [address] Cee Santizo PA-C [address] [address] 12/08/2023 5:20 PM EDT Office Visit [facility] [address] [facility] [place] [address] Kinjal Reynoso PA-C [address] [facility] [place] [address] Health Maintenance Due Date Last Done [...] this encounter Medical Devices Implanted Type Area Mathematics Teacher Device Identifier Shelf Expiration Date Model / Serial / Lot Port Implant W/8f Poly Cath - [id number] Implanted:Qty : 1 on 05/18/2023 by Juan Jose Connell DO at OR [facility] Right: Chest CR BARD : PERIPHERAL VASCULAR [id number] 11/18/2024 [id number] / / [id number] documented as of this encounter Visit Diagnoses [...] the patient have Health Care Power of Retail Parts Pro? No Care Teams Fluid Jet Cutter Operator Relationship Specialty Start Date End Date Kinjal Reynoso PA-C [address] [address] PCP - General Physician Roller Printer 11/05/22 documented as of this encounter
--- OUTSIDE RECORDS SUMMARY | 2024-01-01 09:19 | External Medical Summary ---
Author Name Unknown Address Unknown Organization K01:LABORATORY [facility] [place] - [address] [place] [address] Laboratory Report Ordering Provider Test Date Status TANYA MARSHALLRI 08/12/2023 11:21:42 Final Observation Date Value Abnormality Reference (Units ) Status Phosphate 08/12/2023 11:21:42 3.4 2.5-4.8 (m g/dL) Final Performing Location LABORATORY [facility] - [address] [place] [address]
--- OUTSIDE RECORDS SUMMARY | 2024-01-01 09:19 | External Medical Summary | Summary of Care ---
Author Name Unknown Organization [facility] Address [address] [place] [address] Phone [phone] Care Team Providers Care Sign Erector And Repairer Name Role Phone Kinjal Reynoso PA-C Primary Care Provider [phone] Reason for Visit * Reason Comments Medication Refill Encounter Details Date Type Department Care Team (Late st Contact Info) Description 08/09/2023 Refill [facility] [address] [facility] [address] Luis M Menard MD [address] [facility] [address] Chronic pelvic pain in female; [...] as of this encounter (statuses as of 08/09/2023) Medications Medication Sig Dispensed Refills Start Date [...] OPIOID OVERDOSE - SEEK IMMEDIATE MEDICAL ATTENTION. [email or web address] 2 Each 3 03/31/2023 Suspended Additional Information Peptamen 1.5 Oral Liquid Administer 1000 mL daily, as directed through J Tube via feeding pump 52967 mL 11 04/12/2023 Suspended Additional Information Lansoprazole [...] as of this encounter (statuses as of 08/09/2023) Active Problems Problem Noted Date Diagnosed Date [...] as of this encounter (statuses as of 08/09/2023) Resolved Problems Problem Noted Date Diagnosed Date [...] as of this encounter (statuses as of 08/09/2023) Immunizations Name Administration Dates Next Due DTaP [...] encounter Miscellaneous Notes * Telephone Encounter - Amina Bailey MED [...] MENARD * Telephone Encounter - Paty Ramirez [facility] - 08/09/2023 9:47 AM ESTPending Prescriptions: Disp Refills oxyCODONE HCl 5 MG Oral Tablet (Oxy IR) 70 Tab*0 Sig: Take 1 Tablet by mouth every 6 hours as needed for Pain, Severe (May take 5th dose for breakthrough pain, no more than 5 tabs in 24 hours.). Do not start before July 30, 2023. * Telephone Encounter - Paty Ramirez [facility] - 08/09/2023 9:45 AM EST Did you pend patient's preferred pharmacy and medication before forwarding?yes Pharmacy: [facility] Pending Prescriptions: Disp Refills oxyCODONE HCl [...] available upon request. Patient Phone Numbers mobile [phone] Labs: Lab Results Component Value Date/Time CREAT [...] PM EST Telemedicine Nutrition & Weight Management, [facility] [address] [address] Kaity Yap RDN [address] [address] 09/20/2023 12:40 PM EDT Office Visit Nutrition & Weight Management, [facility] [address] [address] Cee Santizo PA-C [address] [place] [address] 12/08/2023 5:20 PM EDT Office Visit Family [facility], [place] [address] [address] Kinjal Reynoso PA-C [address] [address] Health Maintenance Due Date Last Done Comments [...] this encounter Medical Devices Implanted Type Area Dry Pan Feeder Device Identifier Shelf Expiration Date Model / Serial / Lot Port Implant W/8f Poly Cath - [id number] Implanted:Qty : 1 on 05/18/2023 by Juan Jose Connell, at OR [facility] Right: Chest CR BARD : PERIPHERAL VASCULAR [id number] 11/18/2024 [id number] / / [id number] documented as of this encounter Visit Diagnoses [...] the patient have Health Care Power of Printed Circuit Layout Taper? No Care Teams Sign Erector And Repairer Relationship Specialty Start Date End Date Kinjal Reynoso PA-C [address] [address] PCP - General Physician Slat Basket Maker Helper Machine 11/05/22 documented as of this encounter
--- OUTSIDE RECORDS SUMMARY | 2024-01-01 09:19 | External Medical Summary ---
Author Name Unknown Address Unknown Organization K01:[place] [facility] [place] [address] [place] [address] Laboratory Report Ordering Provider Test Date Status TANYA MARSHALLRI 08/11/2023 10:25:44 Final Observation Date Value Abnormality Reference (Units ) Status Phosphate 08/11/2023 10:25:44 2.9 2.5-4.8 (m g/dL) Final Performing Location LABORATORY [facility] - [address] [place] [address]
--- OUTSIDE RECORDS SUMMARY | 2024-01-01 09:19 | External Medical Summary | Summary of Care ---
Author Name Unknown Organization [facility] Address [address] [place] [address] Phone [phone] Care Team Providers Care Waste Water Worker Name Role Phone Kinjal Reynoso PA-C Primary Care Provider [phone] Reason for Visit * Reason Comments Medication Refill Encounter Details Date Type Department Care Team (Late st Contact Info) Description 08/09/2023 Refill [facility] [address] [facility] [place] [address] Luis M Menard MD [address] [facility] [place] [address] Chronic pelvic pain in female; [...] OPIOID OVERDOSE - SEEK IMMEDIATE MEDICAL ATTENTION. [email or web address] 2 Each 3 03/31/2023 Suspended Additional Information Peptamen 1.5 Oral Liquid Administer 1000 mL daily, as directed through J Tube via feeding pump 30635 mL 11 04/12/2023 Suspended Additional Information Lansoprazole [...] MENARD * [facility]/09/2023 9:47 AM ESTPending Prescriptions: Disp Refills oxyCODONE HCl 5 MG Oral Tablet (Oxy IR) 70 Tab*0 Sig: Take 1 Tablet by mouth every 6 hours as needed for Pain, Severe (May take 5th dose for breakthrough pain, no more than 5 tabs in 24 hours.). Do not start before July 30, 2023. * Telephone Encounter - Paty Ramirez [facility] - 08/09/2023 9:45 AM EST Did you pend patient's preferred pharmacy and medication before forwarding?yes Pharmacy: [facility] Pending Prescriptions: Disp Refills oxyCODONE [...] available upon request. Patient Phone Numbers mobile [phone] Labs: Lab Results Component Value Date/Time CREAT [...] [facility] [address] [place] [address] Kaity Yap RDN [address] [place] [address] 09/20/2023 12:40 PM EDT Office Visit Nutrition & Weight Management, [facility] [address] [place] [address] Cee Santizo PA-C [address] [place] [address] 12/08/2023 5:20 PM EDT Office Visit [facility] [address] [phone] Kinjal Reynoso PA-C [address] [address] Health Maintenance Due Date Last Done Comments [...] this encounter Medical Devices Implanted Type Area Hydrogen Operator Device Identifier Shelf Expiration Date Model / Serial / Lot Port Implant W/8f Poly Cath - [id number] Implanted:Qty : 1 on 05/18/2023 by Juan Jose Connell DO at OR [facility] Right: Chest CR BARD : PERIPHERAL VASCULAR [id number] 11/18/2024 [id number] / / [id number] documented as of this encounter Visit Diagnoses [...] the patient have Health Care Power of Windows Server Administrator? No Care Teams Waste Water Worker Relationship Specialty Start Date End Date Kinjal Reynoso PA-C [address] [phone] PCP - General Physician Timber Inspector 11/05/22 documented as of this encounter
--- OUTSIDE RECORDS SUMMARY | 2024-01-01 09:19 | External Medical Summary ---
Author Name Unknown Address Unknown Organization K01:LAB[facility]ATORY [facility] - [address] [place] [address] Laboratory Report Ordering Provider Test Date Status TANYA MARSHALLRI 08/12/2023 11:21:42 Final Observation Date Value Abnormality Reference (Units ) Status Magnesium 08/12/2023 11:21:42 1.9 1.5-2.6 (m g/dL) Final Performing Location LABORATORY [facility] - [address] [place] [address]
--- OUTSIDE RECORDS SUMMARY | 2024-01-01 09:19 | External Medical Summary ---
Author Name Unknown Address Unknown Organization K01:[facility] [place] [facility] [address] [facility] [address] [place] [address] Laboratory Report Ordering Provider Test Date Status BONNY MARSHALL 08/12/2023 11:21:42 Final Observation Date Value Abnormality Reference (Units ) Status WBC, Total 08/12/2023 11:21:42 4.72 4.00-10.80 (K/uL) Final RBC 08/12/2023 11:21:42 4.00 3.85-5.15 (M/uL) Final Hemoglobin 08/12/2023 11:21:42 12.0 12.0-15.3 (g/dL) Final HCT 08/12/2023 11:21:42 35.1 Below low normal 36.0-45.2 (%) Final MCV 08/12/2023 11:21:42 87.8 81.5-97.5 (fL) Final MCH 08/12/2023 11:21:42 30.0 27.0-34.0 (pg) Final MCHC 08/12/2023 11:21:42 34.2 32.0-36.0 (g/dL) Final RDW 08/12/2023 11:21:42 13.1 11.5-15.5 (%) Final Platelets 08/12/2023 11:21:42 245 140-400 (K/uL) Final MPV 08/12/2023 11:21:42 10.2 6.6-11.1 (fL) Final Nucleated erythrocytes/100 leukocytes [Ratio] in Blood by Automated count 08/12/2023 11:21:42 0 <=0 (/100 WBCs) Final Performing Location [facility] [place] [address] [place] [address]
--- OUTSIDE RECORDS SUMMARY | 2024-01-01 09:19 | External Medical Summary ---
Author Name Unknown Address Unknown Organization K1F:LAB[facility]ATORY [facility] - [address] [facility] [place] [address] Laboratory Report Ordering Provider Test Date Status ANGEL VITAL 08/15/2023 21:17:27 Final Observation Date Value Abnormality Reference (Units ) Status SYNC LEUKOCYTES IN BLOOD BY AUTOMATED COUNT 08/15/2023 21:17:27 5.08 4.00-10.80 (K/uL) Final Segs 08/15/2023 21:17:27 41.9 40.0-75.0 (%) Final Lymphs % 08/15/2023 21:17:27 47.6 Above high normal 18.0-42.0 (%) Final Monos 08/15/2023 21:17:27 9.1 1.0-11.0 (%) Final Eosinophils 08/15/2023 21:17:27 0.8 0.0-6.0 (%) Final Basos 08/15/2023 21:17:27 0.2 0.0-2.0 (%) Final Immature Granulocyte, Percent 08/15/2023 21:17:27 0.4 0.0-2.0 (%) Final Absolute Segs 08/15/2023 21:17:27 2.13 1.80-7.70 (K/uL) Final Lymphs, absolute 08/15/2023 21:17:27 2.42 1.00-4.80 (K/ul) Final Monos, Abs 08/15/2023 21:17:27 0.46 0.00-1.10 (K/uL) Final Eos, Abs 08/15/2023 21:17:27 0.04 0.00-0.70 (K/uL) Final Basos, Abs 08/15/2023 21:17:27 0.01 0.00-0.20 (K/uL) Final Immature Granulocytes, Number 08/15/2023 21:17:27 0.02 0.00-0.20 (K/uL) Final Performing Location LABORATORY [facility] - [address] [place], [place] [address]. [place] [address]
--- OUTSIDE RECORDS SUMMARY | 2024-01-01 09:19 | External Medical Summary | Summary of Care ---
Author Name Unknown Organization [facility] Address [address] [place] [address] Phone [phone] Care Team Providers Care Siding Stapler Name Role Phone Kinjal Reynoso PA-C Primary Care Provider [phone] Reason for Visit * Reason Onset Date Comments Emergency Department Follow-Up 08/16/2023 [facility] 08/15 Encounter Details Date Type Department Care Team (Late st Contact Info) Description 08/16/2023 Telephone [facility] [place] [address] [facility] [place] [phone] Kinjal Reynoso PA-C [address] [facility] [place] [address] Emergency Department Follow-Up ([facility] 08/15) Allergies Active Allergy Reactions Criticality Noted Date [...] OPIOID OVERDOSE - SEEK IMMEDIATE MEDICAL ATTENTION. [email or web address] 2 Each 3 03/31/2023 Active Peptamen 1.5 Oral Liquid Administer 1000 mL daily, as directed through J Tube via feeding pump 60460 mL 11 04/12/2023 Active Lansoprazole 15 MG [...] oxyCODONE HCl 5 MG Oral Tablet (Oxy IR)Indications:Mal function of jejunostomy tube (HCC),Chronic pelvic pain in female,Gastropares is Take 1 Tablet by mouth every 6 [...] - Amina Bailey MED ASSIST - 08/16/2023 11:07 AM EST Spoke to pt and she was just in the hospital prior to ER visit. Discharge on 07/23/23. Offered pt thefirst available hospital follow up with Dr Stringer on 08/24/23 and she declined. Pt scheduled with Kinjal on 08/27/23. Pt also calling about pain meds. Already an encounter started by [employer]. Forwardedto Kinjal's bin. * Telephone Encounter - Victor Manuel Haq OSA - 08/16/2023 10:53 AM EST HIGH ED UTILIZER Reason for Call: called to schedule same day appt Outcome: Appt Not Schedule - Transferred call to clinic documented in this encounter Plan of Treatment Upcoming Encounters Date Type Department Care Team (Late st Contact Info) Description 08/20/2023 1:50 PM EST Telemedicine Nutrition & Weight Management, [facility] [address] [place] [address] Kaity Yap RDN [address] [place] [address] 08/27/2023 9:00 AM EST Office Visit [facility] [address] [phone] Kinjal Reynoso PA-C [address] [address] 09/20/2023 12:40 PM EDT Office Visit Nutrition & Weight Management, [facility] [address] [address] Cee Santizo PA-C [address] [place] [address] 12/08/2023 5:20 PM EDT [facility] [address] [phone] Kinjal Reynoso PA-C [address] [address] Health Maintenance Due Date Last Done Comments [...] encounter Medical Devices Implanted Type Area Regional Rehabilitation Director Device Identifier Shelf Expiration Date Model / Serial / Lot Port Implant W/8f Poly Cath - [id number] Implanted:Qty : 1 on 05/18/2023 by Juan Jose Connell DO at OR [facility] Right: Chest CR BARD : PERIPHERAL VASCULAR [id number] 11/18/2024 [id number] / / [id number] documented as of this encounter Advance Directives [...] the patient have Health Care Power of Rabble Furnace Tender? No Care Teams Siding Stapler Relationship Specialty Start Date End Date Kinjal Reynoso PA-C [address] [phone] PCP - General Physician Paving Bed Maker 11/05/22 documented as of this encounter
--- OUTSIDE RECORDS SUMMARY | 2024-01-01 09:19 | External Medical Summary | Summary of Care ---
Author Name Unknown Organization [facility] Address [address] [place] [address] Phone [phone] Care Team Providers Care Restorative Care Technician Name Role Phone Edgardo Kinjal Lorenza DUNLAP Primary Care Provider [phone] Reason for Visit * Auth/Cert Specialty Diagnoses / Procedures Referred By Carmen kirby Referred To Contact Diagnoses jtube complication Referral ID Status Reason Start Date Expiration Date Visits Re quested Visits Authorized [id number] Encounter Details Date Type Department Care Team (Latest Contact Info) Description 08/08/2023 5:39 PM EST - 08/12/2023 4:05 PM EST Hospital Encounter BP[facility] 7th Floor [address] [place] [address] Vish Valadez MD [address] [facility] [place] [address] Isi Renteria MD [address] [facility] [place] [address] Homer Miller Jr., DO [address] [facility] [place] [address] Vikram Toney MD [address] [facility] [place] [address] Discharge Disposition: Home - Self Care Allergies [...] OPIOID OVERDOSE - SEEK IMMEDIATE MEDICAL ATTENTION. [email or web address] 2 Each 3 3 Active Peptamen 1.5 Oral Liquid Administer 1000 mL daily, as directed through J Tube via feeding pump 51272 mL 11 3 Active Lansoprazole 15 MG [...] strong. 90 Tablet 0 3 Active Acetaminophen 160 MG/5ML Oral Suspension (Tylenol)Indica tions:Chronic pelvic pain in female,Gastropa resis,Malfuncti on of jejunostomy tube (HCC) Administer 31.2 mL into J tube every 8 hours as needed for Pain, Moderate. 472 mL 5 4 Active Gabapentin 300 MG Oral Capsule (Neurontin) Take 1 Capsule by mouth in the morning and 1 Capsule at noon and 1 Capsule before bedtime. 0 4 Active oxyCODONE HCl 5 MG Oral Tablet (Oxy IR)Indications: Malfunction of jejunostomy tube (HCC),Chronic pelvic pain in female,Gastropa resis Take 1 Tablet by mouth every 6 hours as needed for Pain, Severe (No more than 4 doses in 24 hours.). 0 4 Active Gabapentin 300 MG Oral Capsule (Neurontin) Take 1 Capsule by mouth in the morning and 1 Capsule at noon and 1 Capsule before bedtime. 90 Capsule 0 3 08/12/19 24 Discontinued oxyCODONE HCl 5 MG Oral Tablet (Oxy IR)Indications: Chronic pelvic pain in female,Gastropa resis,Malfuncti on of jejunostomy tube (HCC) Take 1 Tablet by mouth every 6 hours as needed for Pain, Severe (May take 5th dose for breakthrough pain.). 70 Tablet 0 4 08/10/19 24 Discontinued(Med ication/Dose Changed) documented as of this [...] Sign Reading Time Taken Comments Blood Pressure 109/60 08/12/2023 5:05 AM EST Pulse 68 08/12/2023 5:05 AM EST Temperature 36.6 C (97.9 F) 08/12/2023 5:05 AM ES T Respiratory Rate 18 08/12/2023 5:05 AM EST Oxygen Saturation 99% 08/12/2023 5:05 AM EST Inhaled Oxygen Concentration - - Weight 75.3 kg (166 lb) 08/08/2023 5:56 PM EST Height 157.5 cm (5' 2") 08/08/2023 5:56 PM EST Body Mass Index 30.36 08/08/2023 5:56 PM EST documented in this encounter Functional [...] as of this encounter Discharge Summaries * Vikram Toney MD - 08/12/2023 12:16 PM EST [address] [address] Admission Date: 08/08/2023 Discharge Date: 08/12/2023 RECOMMENDED TO DO FOR NEXT PROVIDER(S): Please ensure follow-up with her surgeon Dr. Knight at [facility] for continued management of her J-tube and further management Please give referral to GI for management of gastroparesis at appropriate settings Please continue pain management with goal to wean are off of narcotics REASON(S) FOR MEDICATION CHANGE(S): None of the medications changed DISPOSITION ON DISCHARGE: Home with Services (resume enteral feeding with [facility]) Active Hospital Problems Diagnosis *Principal Diagnosis - Malfunction of jejunostomy tube (HCC) Gastroparesis Gastroesophageal reflux disease with esophagitis without hemorrhage Endometriosis Resolved Hospital Problems No resolved problems to display. ADMISSION HISTORY & PHYSICAL EXAM (focused): PRESENTING PROBLEM: J tube malfunction HPI: Anirudh is a 22 year old female who presents to [facility] for evaluation of malpositioned J tube. She has a PMHx significant for gastroparesis, GERD, and endometriosis. Labs from [facility] are unremarkable. CT confirming j tube positioned between the abdominal wall and peritoneum. No fever or leukocytosis. Information and history obtained via chart review and patient. Patient see at bedside. States that she presented to [facility] yesterday when she started having pain around J tube and yellow/clear drainage from site. Patient is dependent on J tube for medication and nutrition. She does drink by mouth and eats some meals/ snacks for pleasure. Currently she is complaining for 5/10 abdominal pain around J tube site and around L flank region. Describes the pain as aching and sore. Denies any fever,chills, chest pain, SOB, N/V/D, or changes in urinary patterns. Patient lives with her grandmother. All other systems reviewed and otherwise negative unless mentioned above Patient is a FULL code. In the event she were unable to make decisions, she would like her mother (Debby Peñaloza) to make medical decisions on her behalf. BP: 123 mmHg/75 mmHg (08/08/231755) Pulse: 69 (08/08/231755) Temp: 36.61 C (08/08/231755) Temp Summary: Temp Min: 36.6 C (97.9 F) Max: 36.6 C (97.9 F) SpO2: 100 % (08/08/231755) O2 flow rate: Supplemental O2 Delivery: Room Air, None (08/08/231755) General: alert and oriented to person, place, time, and situation. No acute distress. Well-nourished HEENT: Head normocephalic. PERRLA. Moist mucous membranes. No scleral icterus. No cervical lymphadenopathy Lungs: Clear to auscultation bilaterally. No accessory muscle use CV: Regular rate and rhythm. No murmur. No JVD. No edema Abdomen: +Tenderness LUQ and LLQ. No rebound tenderness or guarding. Soft, non- distended. No palpable masses Extremities: No edema. Pulses intact Skin: No rashes or lesions. Warm to touch Neurologic: No focal neurological deficits. CN II-XII grossly intact, but not individually tested Psychiatric: Cooperative. Appropriate mood and affect HOSPITAL COURSE (focused): Patient was admitted in hospital for J tube malfunction and was transferred from [facility]. Her CT scan showed malpositioned J-tube. J-tube was exchanged by IR on 08/10/2023. Patient was restarted on tube feed and tolerated well. Patient has chronic abdominal pain and had abdominal pain during admission to without any signs or symptoms of peritonitis. Her pain was managed with oxycodone and Dilaudid and discharged home with her home regimen of oxycodone. Discussion with Dr. Knight ( patient surgeon managing J tube) done and he will follow up with her outpatient for which appointment is already set. Patient was stable and discharge home. Operations & Procedures: exchange of J tube on 08/10/2023 Complications: none significant Significant Lab and Imaging Results: As mentioned above Results Pending at Discharge: Lab Results Pending at Discharge: BASIC METABOLIC PANEL Routine CBC Routine MAGNESIUM Routine MEDICATION UPDATES AT DISCHARGE START taking these medications INSTRUCTIONS oxyCODONE 5 MG immediate release tablet Commonly known as: Oxy IR Take 1 Tablet by mouth every 6 hours as needed for Pain, Severe (No more than 4 doses in 24 hours.). CONTINUE taking these medications INSTRUCTIONS Acetaminophen Childrens 160 MG/5ML Susp Administer 31.2 mL into J tube every 8 hours as needed for Pain, Moderate. Gabapentin 300 MG Capsule Commonly known as: Neurontin Take 1 Capsule by mouth in the morning and 1 Capsule at noon and 1 Capsule before bedtime. GNP ClearLax 17 GM/SCOOP powder Generic drug: Polyethylene Glycol 3350 Stir and dissolve 17 g (measuring line inisde of cap) in 4 to 8 ounces of any liquid and adminsiterinto Gastric Tube in the morning and repeat same steps before bedtime. high calorie peptide-based liquid Administer 1000 mL daily, as directed through J Tube via feeding pump naloxone 4 MG/0.1ML Liqd Commonly known as: Narcan Nasal ADMINISTER 1 SPRAY INTO 1 NOSTRIL FOR SUSPECTED OPIOID OVERDOSE - SEEK IMMEDIATE MEDICAL ATTENTION.[email or web address] promethazine 25 MG Tablet Commonly known as: Phenergan Take 1 Tablet by mouth every 6 hours as needed for Nausea for up to 90 doses. Crush and mix with water then give through jejunostomy tube, then flush with at least 20 ml of water, use one-half tabletif it feels too strong. CONTINUE taking these medications but follow up with your Primary Care Physician (PCP). INSTRUCTIONS Lidocaine 5 % Commonly known as: Lidoderm Place 1 patch to skin over 12 hours every 24 hours Remove patch after 12 hours.. Prevacid 15 MG Cpdr Generic drug: lansoprazole DR 2 Capsules. SCHEDULED FOLLOW-UP: Future Appointments Appt Date/Time Provider Department 08/20/2023 1:50 PM Kaity Yap RDN Nutrition [facility] Weight Management, [facility] 09/20/2023 12:40 PM Cee Santizo PA-C Nutrition & Weight Management, [facility] 12/08/2023 5:20 PM Kinjal Reynoso PA-C [facility] Other Information Indwelling Devices: LINES ALL Duration Implanted IV Device Right Chest 85 days Gastrostomy/Enterostomy Jejunostomy 18 Fr. LLQ 34 days Vital Signs (last recorded): Most Recent Systolic BP: 109 mmHg (08/12/23 0505) Most Recent Diastolic BP: 60 mmHg (08/12/23 0505) Pulse: 68 (08/12/23 0505) Resp: 18 (08/12/23 0505) Most Recent Temperature: 36.61 C (08/12/23 0505) Weight: 75.3 kg (166 lb) (08/08/23 1756) SpO2: 99 % (08/12/23 0505) O2 flow rate: 0 L/MIN (08/10/23 2209) Allergies: Compazine [prochlorperazine], Droperidol, Haldol [haloperidol], Hydroxyzine, Reglan [metoclopramide], and Tigan [trimethobenzamide] Activity: as tolerated Diet: age appropriate diet and tube feed with peptamen Code Status: Full Code Condition on Discharge: stable Isolation status: None Cognition: normal HOSPITAL CONSULTS ORDERED: NUTRITION SERVICES (DIETITIAN) CONSULT IP REFERRING PHYSICIAN: Ref: VALERY SHERMAN[[id number]] [address] [place] [address] (office) [phone] (fax) PRIMARY CARE PROVIDER: PCP: Kinjal Reynoso PA-C [address] [place] [address] / [place] [address] (office) [phone] (fax) Note: To contact a physician responsible for this patients hospital care, please call [facility] [phone]. I certify this patient is confined to the home and needs intermittent intermediate care, physical therapy and/or speech therapy, or continues to need occupational therapy. The patient is under my care and I have authorized services on this plan of care. The clinical findings of decrease in functional mobility secondary to decreased strength, decreased balance, and decreased endurance due to recent hospitalization and overall medical condition support the need for home health, and the patientdemonstrates a considerable and taxing effort when attempting to leave the home. The patient had a [id number] encounter with an allowed provider type on 08/12/23 and the encounter was related to the primary reason for home health care. Under situations in whichI am an acute/post acute facility physician who will not be following the patient's plan of care, Iauthorized services on this plan of care and I transfer the patient for plan of care certification to the primary care physician named below who will follow the patient and update the plan of care. Primary care physician Kinjal Reynoso PA-C I spent a total of 50 minutes coordinating, documenting, and providing care for this patient excluding time spent in the performance of separately billed services. documented in this encounter Discharge Instructions * Discharge Instr - AVS* Vikram Toney MD - 08/10/2023 9:36 AM EST Discharge Date: 08/12/2023 The information below provides you with the instructions and the list of medications you need to betaking following discharge from the hospital. If you have any questions, please ask before leaving. If you have questions after leaving, you can reach us at the numbers below. YOUR HOSPITAL PROVIDERS: Discharging Provider: Vikram Toney MD Provider Department: Hospital Medicine To reach this Provider Wednesday through Wednesday (8:00 AM to 4:30 PM) for any questions or test results: Call [phone] For after-hours concerns: Call [phone] and have your provider paged, or the provider substance abuse prevention coordinator for the Department of Hospital Medicine paged. [...] available, you can go to your local [facility] or [facility] Care Clinic during their business hours. In an EMERGENCY situation: Call 911 or go to the nearest emergency room. A BRIEF SUMMARY OF YOUR HOSPITAL STAY: You came to the hospital with: complaint of abdominal pain Your main diagnosis at discharge was: J tube malposition Operations & Procedures performed: IR guided exchange of J tube on 08/10/2023 Complications: none significant Inpatient test results that are pending at discharge: none Advance Directive Documented: Advance Directive Does the Patient have an Advance Directive? No YOUR FOLLOW UP APPOINTMENTS: Primary Care Provider Information: PCP: Kinjal Reynoso PA-C [address] [facility] / [place] [address] (office) [phone] (fax) An appointment was requested with your PCP (Kinjal Reynoso PA-C) within 5 days . (Please take this form to this visit with your primary care physician.) You need the following studies in the future: none INSTRUCTIONS: Diet: Previous diet Activity: As tolerated Other instructions: Please follow up with your outpatient surgeon for continued management as appointment scheduled Please discuss with your primary care doctor for referral to GI for appropriate management of Gastroparesis Additional Instructions: - Call your primary care physician or seek medical attention if .excessive abdominal pain, chills ,fever, severe lethargy, Chest pain, shortness for breath, passing out, fall, bleeding from any site, excessive swelling or pain, excessive nausea and vomiting or other worrisome medical problem Discharge Date: 08/10/2023 Provider: Dr. Tk Aden If you are experiencing any problems related to your procedure, please contact Interventional Radiology at [phone] during normal business hours: Wednesday - Wednesday, 8:00 am - 4:00 pm. If a problem occurs outside of normal business hours, please call the hospital cut out operator at [phone] and ask for the Interventional Radiologist substance abuse prevention coordinator. Contact scheduling for Interventional Radiology at [phone] during normal business hours: Wednesday - Wednesday, 8:00 am - 4:00 pm. The information below provides you with the instructions and the list of medications you need to betaking following discharge from the hospital. If you have any questions, please ask before leaving.Please carry this letter with you when you see your doctor in the clinic. If you have questions, you can reach us at the numbers above. SPECIAL INSTRUCTIONS Jejunostomy (J Tube) You have been discharged with a feeding tube. The feeding tube was inserted through your abdominal wall and into your stomach to provide you with food, fluids, and medication. Your tube may move in and out slightly. If the tube comes out all the way, don't put it back in. Call your doctor. You needto keep the skin around the feeding tube dry and clean. This helps prevent soreness and infection. The mouth also needs to be cleansed, even though food is not taken through. Home Care You may resume normal diet as tolerated. If you experience pain or discomfort at the site you may take acetaminophen (Tylenol) or your preferred pain medicine as directed. Avoid strenuous activity for 24 to 48 hours after the procedure. Do not lift anything heavier than 10 pounds for 3 days after the procedure. Gradually increase your activity after 24 to 48 hours after the procedure. When showering, please cover your site with plastic wrap to avoid getting it wet. Please DO NOT take a bath, soak in a hot tub, or swim. The three round anchors will automatically fall off within 14 days. If they do not completely fall off in 14 days, please contact Interventional Radiology. Cleaning the Skin Gently wash the skin around the feeding tube daily. Please follow these steps: Wash your hands. Wet a soft cloth or gauze with warm, soapy water. Gently wipe the skin around the feeding tube. Also wipe the bolster and the base of the feeding tube. Rinse well with clear, warm water. Pat dry with a soft cloth. Cleaning Under the Bolster When you wash the skin, clean and check under the bolster. Please follow these steps: Gently lift the bolster just enough to get a cotton swab under it. Be careful not to pull on the feeding tube. Check for redness, swelling, bleeding, or leakage around the opening. Dip a cotton swab in warm water and gently clean under the bolster. Pat the skin dry. Apply a protective skin barrier or antibacterial ointment if your health care provider tells you to. Gently push the bolster back against the skin. Wash your hands. Medications and Flushing the Tube Flush the tube with 30 mL warm water daily if not currently being used for medications or feeds. Your tube should be flushed before and after every use. Take medications in the following order (each mixed in about 15 mL warm water) Liquid medicines first Medicines that need to be dissolved second Thick medicines last Take each medicine by itself. Never mix medicines together in the syringe. Flush the tube with 5 mL or more warm water between all medications. Flush the tube with 30 mL warm water after all medications have been given. Some medicines may not be mixed with feeding formula. Ask your doctor how long you should wait to start feeding after taking medications. Keep your tube clamped between feedings. Additional Resource [email or web address].com Follow Up An appointment will be made for you to have your tube changed approximately every 3-6 months for routine care. If you do not hear from a database consultant, call Interventional Radiology at [phone] during normal business hours: Wednesday through Wednesday 8 am to 4:30 pm to schedule an appointment. When to Call Interventional Radiology Call Interventional Radiology right away if you have any of the following: If your tube becomes dislodged, try to replace the tube and tape it to hold it in place. This will keep the tract open until we can exchange the tube. If you cannot place the tube back in, that is okay. This is not a medical emergency and you do not need to go to the ER. Please either call the IR Provider on-call or call us during normal business hours at the numbers provided above. This is something that should be addressed within 24 hours, particularly if you are dependent on your tube for medication administration. Fever above 100 degrees Fahrenheit Increased bleeding, redness, swelling, warmth, or discharge at the incision site. Constant or increasing pain, numbness, coldness, or tingling around the incision area. The tube feels loose, comes out or the size of the opening where the tube enters the skin increases. Red, rough tissue develops around the tube site. You see blood around the tube, in stool, or in contents of the stomach. The tube becomes clogged or blocked and you cannot clear it. You start to cough, choke, or vomit while feeding. You have a bloated or rigid abdomen (belly feels hard when gently pressed.) You have diarrhea. If at any time you experience any of the following or feel you are having a medical emergency, [id number] for emergency assistance. Chest Pain Sudden, severe shortness of breath Rapid heart rate Sudden onset of weakness Coughing up blood See your referring physician for follow-up appointment. Do not smoke or use tobacco products in any way! If you feel suicidal or homicidal, please call the crisis hotline at [phone] ([phone]) General Anesthesia You may have received medication that made you comfortable/sedated you during your procedure. This is considered General Anesthesia. This medication was given to relax you. You may also not remember having the procedure done. It may take up to 24 hours for this medication to be out of your system. Because of this, you should observe the following for the next 24 hours: Do not drink alcohol or take depressant drugs. Do not operate any type of machinery that requires hand-eye coordination. Do not sign any legal papers or documents. Do not make any financial decisions. You should be in the presence of an adult for the remainder of the day. If you are experiencing any problems related to your procedure, you should contact the Interventional Radiology physician unless otherwise directed. Driving: You may resume driving 24 hrs . Diet: You may resume your current diet as tolerated as instructed by anesthesia. Return to work or school: You may return to school or work 24 hours after the procedure, unless otherwise instructed by the physician. documented in this encounter Progress Notes * Vikram Toney MD - 08/11/2023 4:17 PM EST Images from the original note were not included. ATTENDING PROGRESS NOTE - Hospital Medicine [facility] [place] [address] Name: Anirudh Peñaloza Location: [facility] B731/[id number] Date: 08/11/2023 Time: 4:17 PM SUBJECTIVE: Patient was seen and examined in the morning. Patient was comfortably lying in the bed. She was started on tube feed. She was still complaining of pain. She wanted me to discuss with her surgeon as he is planning for some procedure as per her. ROS: All other systems were reviewed and negative other than stated above Later I called in [facility]. As per him he has not planning any procedure as of now but will follow-up outpatient and she whether j-tube can be replaced with G-tube if she continues to have problem and inability tolerate diet. Most Recent Vital Signs: BP: 99 mmHg/42 mmHg (08/11/231432) Pulse: 62 (08/11/23 0900) Temp: 36.72 C (08/11/231432) Temp Summary: Temp Min: 36.7 C (98.1 F) Max: 36.9 C (98.4 F) SpO2: 99 % (08/11/231432) O2 flow rate: 0 L/MIN (08/10/232208) Supplemental O2 Delivery: Room Air, None (08/11/23544) O2 %: 100 % (08/08/231999) Vital Signs Last 24 Hours: Systolic BP: Most Recent Systolic BP Av.5 mmHg Min: 99 mmHg Max: 146 mmHg Temperature: Most Recent Temperature Av.8 C Min: 36.72 C Max: 36.89 C Pulse: Pulse Av.7 Min: 55 Max: 77 Respirations: Resp Av Min: 16 Max: 18 SpO2: SpO2 Av.8 % Min: 98 % Max: 99 % Intake/Output: Intake/Output Summary (Last 24 hours) at 08/11/2023 1617 Last data filed at 08/11/2023 1600 Gross per 24 hour Intake 2030.2 ml Output 850 ml Net 1180.2 ml Weight: Patient Vitals for the past 240 hrs: Weight 08/08/231755 75.3 kg (166 lb) Weight: 75.3 kg (166 lb) (08/08/231755) PHYSICAL EXAMINATION: Constitutional: no acute distress, resting in bed HEENT: EOMI, anicteric sclera, moist mucus membranes, no masses, tenderness CV: normal rate and rhythm, no murmurs Chest: normal respiratory effort, lungs clear to auscultation, no wheezing, no crackles Abdomen: (+) generalized abdominal pain, tender around J tube insertion site, soft, bowel sounds normal, no masses Extremities: no clubbing, cyanosis, or edema Lymph Nodes: no cervical adenopathy Skin: warm, dry, intact Neuro: alert, oriented, CN II-XII intact, no focal motor/sensory deficits Psych: mood and affect congruent LABS Chemistry Panel: Lab results within last 7 days (see chart for full results) Units 08/11/23 1025 08/09/23 0632 08/07/23 1250 Sodium mmol/L 137 140 142 Potassium mmol/L 3.4* 4.4 3.6 Chloride mmol/L 103 107 107 CO2 mmol/L 23 21* 24 BUN mg/dL 6 5* 6 Creatinine mg/dL 0.6 0.7 0.6 Estimated Glomerular Filtration Rate mL/min >90 >90 >90 Glucose mg/dL 79 83 88 Calcium mg/dL 8.2* 8.8 9.2 Magnesium mg/dL 2.2 -- -- Phosphorus mg/dL 2.9 -- -- Anion Gap mmol/L 11 12 11 Complete Blood Count: Lab results within last 7 days (see chart for full results) Units 08/11/23 1025 08/09/23 0632 08/07/23 1250 WBC K/uL 5.63 5.73 5.77 HGB g/dL 11.5* 13.0 13.0 HCT % 32.0* 35.6* 37.7 PLT K/uL 225 222 252 MCV fL 84.4 84.6 86.5 Cardiac Studies: No results in the last 7 days - inpatent use only Coagulation Studies: No results in the last 7 days - inpatent use only Liver Function Panel: Lab results within last 7 days (see chart for full results) Units 08/11/23 1025 08/07/23 1250 Albumin g/dL 3.6* 4.2 Protein g/dL 6.0 7.0 Bilirubin, Total mg/dL 0.4 0.3 AST U/L 14 13 ALT U/L 11 11 Alkaline Phosphatase U/L 64 85 Infectious Studies: No results in the last 7 days - inpatent use only Cultures: reviewed. Lab results within last 7 days (see chart for full results) Units 02/18/24 2308 SARS-CoV-2 (COVID-19) Result Negative Recent Cultures (2 Weeks) 06/14/2023 05/23/2023 04/15/2023 02/02/2023 12/09/2022 11/06/2022 07/20/2022 11/18/2021 1:43 PM 10:19 PM 6:34 PM 5:58 AM 5:31 PM 2:36 PM 12:20 PM 6:18 PM CULTURE GROWTH Moderate Pseudomonas aeruginosa -- -- -- -- -- -- -- Few Enterobacter cloacae complex Few Klebsiella pneumoniae BLOOD CULTURE GROWTH -- -- No growth -- -- -- -- -- GASTROINTESTINAL STOOL CULTURE GROWTH -- -- -- -- -- -- No Aeromonas species or Plesiomonas speciesisolated. -- QUANT URINE CULTURE GROWTH -- No significant growth -- No significant growth No significant growth No significant growth -- No significant growth Radiographic Studies (last 72 hours): reviewed. IR GASTROINTESTINAL OSTOMY Result Date: 08/11/2023 IMPRESSION: Jejunostomy catheter salvage in replacement. Due to patient discomfort a 12 Israeli MPD catheter was placed to keep tract open. The patient will return to interventional radiology under general anesthesia for replacement of an 18 Israeli jejunostomy tube. PLAN: Flush tube with 20-30 [...] upper quadrant. No findings to suggest malpositioning. IMPRESSION and PLAN: Principal Problem: Malfunction of jejunostomy tube (HCC) (POA: Yes) Active Problems: Gastroesophageal reflux disease with esophagitis without hemorrhage (POA: Yes) Endometriosis (POA: Yes) Gastroparesis (POA: Yes) Resolved Problems: * No resolved hospital problems. * POA = Present On Admission 22 year old female was transferred from [facility] for a J tube exchange by IR. Procedure attempted yesterday, but reported some difficulty in placement, thus salvage procedure performed today with success. Patient reported greater left sided pain than normal, although reports generalized abdominal pain, given large number of prior abdominal surgeries, at baseline. Jejunostomy tube malfunction- exchanged today by IR and anesthesia Chronic abdominal pain Gastroparesis She is having nausea but no vomiting Started on tube feed with Peptamen Patient is eating through mouth 2 Pain control with acetaminophen, oxycodone (PUMP REBUILDER pain regiment), and dilaudid for breakthrough Orders Placed This Encounter Procedures Adult Complex Diet : Lactose Controlled I spent a total of 55 minutes coordinating, documenting, and providing care for this patient excluding time spent in the performance of separately billed services or time spent by another provider/QHP. * Homer Miller Jr., DO - 08/10/2023 5:37 PM EST Images from the original note were not included. ATTENDING PROGRESS NOTE - [facility] Medicine [facility] [place] [address] Name: Anirudh Peñaloza Location: [facility] [place] B731/A Date: 08/10/2023 Time: 5:37 PM SUBJECTIVE: No acute issues overnight. Had an multipurpose drainage cath placed yesterday in place of prior J tube, which was exchanged by IR and anesthesia today for a J tube salvage/exchange. Patient reported on going acute L>R abdominal pain worse since dislodgement 4 days ago. was exc She denied any fevers, chest pain / vomiting. Denied any dyspnea. She does complain of intermittent nausea, but no emesis. ROS: All other systems were reviewed and negative other than stated above Most Recent Vital Signs: BP: 124 mmHg/79 mmHg (08/10/23 1422) Pulse: 58 (08/10/23 1422) Temp: 36.22 C (08/10/23 0945) Temp Summary: Temp Min: 36 C (96.8 F) Max: 36.2 C (97.2 F) SpO2: 98 % (08/10/23 1422) O2 flow rate: 0 L/MIN (08/10/23 1030) Supplemental O2 Delivery: Room Air, None (08/10/23 1030) O2 %: 100 % (08/08/231999) Vital Signs Last 24 Hours: Systolic BP: Most Recent Systolic BP Av.2 mmHg Min: 102 mmHg Max: 130 mmHg Temperature: Most Recent Temperature Av.1 C Min: 36 C Max: 36.22 C Pulse: Pulse Av.8 Min: 58 Max: 76 Respirations: Resp Av.5 Min: 13 Max: 28 SpO2: SpO2 Av.9 % Min: 95 % Max: 99 % Intake/Output: Intake/Output Summary (Last 24 hours) at 08/10/20231736 Last data filed at 08/10/2023 0933 Gross per 24 hour Intake 1300 ml Output 1200 ml Net 100 ml Weight: Patient Vitals for the past 240 hrs: Weight 08/08/231755 75.3 kg (166 lb) Weight: 75.3 kg (166 lb) (08/08/231755) PHYSICAL EXAMINATION: Constitutional: no acute distress, resting in bed HEENT: EOMI, anicteric sclera, moist mucus membranes, no masses, tenderness CV: normal rate and rhythm, no murmurs Chest: normal respiratory effort, lungs clear to auscultation, no wheezing, no crackles Abdomen: (+) generalized abdominal pain, tender around J tube insertion site, soft, bowel sounds normal, no masses Extremities: no clubbing, cyanosis, or edema Lymph Nodes: no cervical adenopathy Skin: warm, dry, intact Neuro: alert, oriented, CN II-XII intact, no focal motor/sensory deficits Psych: mood and affect congruent LABS Chemistry Panel: Lab results within last 7 days (see chart for full results) Units 08/09/23 0632 08/07/23 1250 Sodium mmol/L 140 142 Potassium mmol/L 4.4 3.6 Chloride mmol/L 107 107 CO2 mmol/L 21* 24 BUN mg/dL 5* 6 Creatinine mg/dL 0.7 0.6 Estimated Glomerular Filtration Rate mL/min >90 >90 Glucose mg/dL 83 88 Calcium mg/dL 8.8 9.2 Anion Gap mmol/L 12 11 Complete Blood Count: Lab results within last 7 days (see chart for full results) Units 08/09/23 0632 08/07/23 1250 WBC K/uL 5.73 5.77 HGB g/dL 13.0 13.0 HCT % 35.6* 37.7 PLT K/uL 222 252 MCV fL 84.6 86.5 Cardiac Studies: No results in the last 7 days - inpatent use only Coagulation Studies: No results in the last 7 days - inpatent use only Liver Function Panel: Lab results within last 7 days (see chart for full results) Units 08/07/23 1250 Albumin g/dL 4.2 Protein g/dL 7.0 Bilirubin, Total mg/dL 0.3 AST U/L 13 ALT U/L 11 Alkaline Phosphatase U/L 85 Infectious Studies: No results in the last 7 days - inpatent use only Cultures: reviewed. Lab results within last 7 days (see chart for full results) Units 08/08/23 2308 SARS-CoV-2 (COVID-19) Result Negative Recent Cultures (2 Weeks) 06/14/2023 05/23/2023 04/15/2023 02/02/2023 12/09/2022 11/06/2022 07/20/2022 11/18/2021 1:43 PM 10:19 PM 6:34 PM 5:58 AM 5:31 PM 2:36 PM 12:20 PM 6:18 PM CULTURE GROWTH Moderate Pseudomonas aeruginosa -- -- -- -- -- -- -- Few Enterobacter cloacae complex Few Klebsiella pneumoniae BLOOD CULTURE GROWTH -- -- No growth -- -- -- -- -- GASTROINTESTINAL STOOL CULTURE GROWTH -- -- -- -- -- -- No Aeromonas species or Plesiomonas speciesisolated. -- QUANT URINE CULTURE GROWTH -- No significant growth -- No significant growth No significant growth No significant growth -- No significant growth Radiographic Studies (last 72 hours): reviewed. CT ABD/PELVIS W IV CONTRAST - WO ORAL CONTRAST Result Date: 08/09/2023 IMPRESSION Jejunostomy terminates in the right upper quadrant. No findings to suggest malpositioning. IMPRESSION and PLAN: Principal Problem: Malfunction of jejunostomy tube (HCC) (POA: Yes) Active Problems: Gastroesophageal reflux disease with esophagitis without hemorrhage (POA: Yes) Endometriosis (POA: Yes) Gastroparesis (POA: Yes) Resolved Problems: * No resolved hospital problems. * POA = Present On Admission 22 year old female was transferred from [facility] for a J tube exchange by IR. Procedure attempted yesterday, but reported some difficulty in placement, thus salvage procedure performed today with success. Patient reported greater left sided pain than normal, although reports generalized abdominal pain, given large number of prior abdominal surgeries, at baseline. Jejunostomy tube malfunction- exchanged today by IR and anesthesia Chronic abdominal pain Gastroparesis She is having nausea but no vomiting Hold IV fluids tonight, trial clears today Nutrition consulted for tube feed recommendations Pain control with acetaminophen, oxycodone (PUMP REBUILDER pain regiment), and dilaudid for breakthrough Orders Placed This Encounter Procedures Clear Liquid Diet I spent a total of 51 minutes coordinating, documenting, and providing care for this patient excluding time spent in the performance of separately billed services or time spent by another provider/QHP. * Isi Renteria MD - 08/09/2023 9:21 AM EST Images from the original note were not included. ATTENDING PROGRESS NOTE - Hospital Medicine [facility] [place] [address] Name: Anirudh Peñaloza Location: [facility] [place] B731/A Date: 08/09/2023 Time: 9:21 AM SUBJECTIVE: she is lying in bed not in any acute distress. Complains of abdominal discomfort at site of gj tube. Denies any chest pain / vomiting. Does complain of nausea. ROS: All other systems were reviewed and negative other than stated above Most Recent Vital Signs: BP: 110 mmHg/51 mmHg (08/08/232253) Pulse: 62 (08/08/232253) Temp: 36.72 C (08/08/232253) Temp Summary: Temp Min: 36.6 C (97.9 F) Max: 36.7 C (98.1 F) SpO2: 100 % (08/08/232253) O2 flow rate: Supplemental O2 Delivery: Room Air, None (08/08/232253) O2 %: 100 % (08/08/231999) Vital Signs Last 24 Hours: Systolic BP: Most Recent Systolic BP Av.5 mmHg Min: 110 mmHg Max: 123 mmHg Temperature: Most Recent Temperature Av.7 C Min: 36.61 C Max: 36.72 C Pulse: Pulse Av.5 Min: 62 Max: 69 Respirations: Resp Av Min: 16 Max: 18 SpO2: SpO2 Av % Min: 100 % Max: 100 % Intake/Output: No intake or output data in the 24 hours ending 08/09/23 0921 Weight: Patient Vitals for the past 240 hrs: Weight 08/08/23 1756 75.3 kg (166 lb) Weight: 75.3 kg (166 lb) (08/08/23 175) PHYSICAL EXAMINATION: General : No acute distress, alert, awake. HEENT: Normocephalic, atraumatic, Neck : supple Cardiovascular: s1 s2 normal Lungs: no wheezing Abdomen: generalized abdominal tenderness Extremities: no edema Neuro: alert,oriented x 3 LABS Blood Gas: No results in the last 7 days - inpatent use only Chemistry Panel: Lab results within last 7 days (see chart for full results) Units 08/09/23 0632 08/07/23 1250 Sodium mmol/L 140 142 Potassium mmol/L 4.4 3.6 Chloride mmol/L 107 107 CO2 mmol/L 21* 24 BUN mg/dL 5* 6 Creatinine mg/dL 0.7 0.6 Estimated Glomerular Filtration Rate mL/min >90 >90 Glucose mg/dL 83 88 Calcium mg/dL 8.8 9.2 Anion Gap mmol/L 12 11 Complete Blood Count: Lab results within last 7 days (see chart for full results) Units 08/09/23 0632 08/07/23 1250 WBC K/uL 5.73 5.77 HGB g/dL 13.0 13.0 HCT % 35.6* 37.7 PLT K/uL 222 252 MCV fL 84.6 86.5 Cardiac Studies: No results in the last 7 days - inpatent use only Coagulation Studies: No results in the last 7 days - inpatent use only Liver Function Panel: Lab results within last 7 days (see chart for full results) Units 08/07/23 1250 Albumin g/dL 4.2 Protein g/dL 7.0 Bilirubin, Total mg/dL 0.3 AST U/L 13 ALT U/L 11 Alkaline Phosphatase U/L 85 Infectious Studies: No results in the last 7 days - inpatent use only Cultures: reviewed. Lab results within last 7 days (see chart for full results) Units 08/08/23 2308 SARS-CoV-2 (COVID-19) Result Negative Recent Cultures (2 Weeks) 06/14/2023 05/23/2023 04/15/2023 02/02/2023 12/09/2022 11/06/2022 07/20/2022 11/18/2021 1:43 PM 10:19 PM 6:34 PM 5:58 AM 5:31 PM 2:36 PM 12:20 PM 6:18 PM CULTURE GROWTH Moderate Pseudomonas aeruginosa -- -- -- -- -- -- -- Few Enterobacter cloacae complex Few Klebsiella pneumoniae BLOOD CULTURE GROWTH -- -- No growth -- -- -- -- -- GASTROINTESTINAL STOOL CULTURE GROWTH -- -- -- -- -- -- No Aeromonas species or Plesiomonas speciesisolated. -- QUANT URINE CULTURE GROWTH -- No significant growth -- No significant growth No significant growth No significant growth -- No significant growth Radiographic Studies (last 72 hours): reviewed. CT ABD/PELVIS W IV AND W ORAL [...] HASBEEN ELECTRONICALLY SIGNED BY NANCY LAZO MD IMPRESSION and PLAN: Principal Problem: Malfunction of jejunostomy tube (HCC) (POA: Yes) Active Problems: Gastroesophageal reflux disease with esophagitis without hemorrhage (POA: Yes) Endometriosis (POA: Yes) Gastroparesis (POA: Yes) Resolved Problems: * No resolved hospital problems. * POA = Present On Admission Jejunostomy tube malfunction Chronic abdominal pain Gastroparesis She is having nausea but no vomiting IR consulted for J tube exchange Continue iv fluids Continue npo Pain control with dialudid Orders Placed This Encounter Procedures NPO Please refer to the documented findings and plan of care. The patient's service consisted of an evaluation. I have seen and evaluated the patient. I spent a total of 45 minutes coordinating, documenting, and providing care for this patient excluding time spent in the performance of separately billed services or time spent by another provider/QHP. documented in this encounter H&P Notes * Felicita Carroll CRNP - 08/08/2023 7:13 PM EST Images from the original note were not included. [facility] [place] B731/A PRESENTING PROBLEM: J tube malfunction HPI: Anirudh is a 22 year old female who presents to [facility] [place] from [facility] for evaluation of malpositioned J tube. She has a PMHx significant for gastroparesis, GERD, and endometriosis. Labs from [facility] are unremarkable. CT confirming j tube positioned between the abdominal wall and peritoneum. No fever or leukocytosis. Information and history obtained via chart review and patient. Patient see at bedside. States that she presented to [facility] yesterday when she started having pain around J tube and yellow/clear drainage from site. Patient is dependent on J tube for medication and nutrition. She does drink by mouth and eats some meals/ snacks for pleasure. Currently she is complaining for 5/10 abdominal pain around J tube site and around L flank region. Describes the pain as aching and sore. Denies any fever,chills, chest pain, SOB, N/V/D, or changes in urinary patterns. Patient lives with her grandmother. All other systems reviewed and otherwise negative unless mentioned above Patient is a FULL code. In the event she were unable to make decisions, she would like her mother (Debby Peñaloza) to make medical decisions on her behalf. Subjective Patient's past history, medications, and allergies were reviewed. Objective Physical Exam Most Recent Vital Signs: BP: 123 mmHg/75 mmHg (08/08/231755) Pulse: 69 (08/08/231755) Temp: 36.61 C (08/08/231755) Temp Summary: Temp Min: 36.6 C (97.9 F) Max: 36.6 C (97.9 F) SpO2: 100 % (08/08/231755) O2 flow rate: Supplemental O2 Delivery: Room Air, None (08/08/231755) General: alert and oriented to person, place, time, and situation. No acute distress. Well-nourished HEENT: Head normocephalic. PERRLA. Moist mucous membranes. No scleral icterus. No cervical lymphadenopathy Lungs: Clear to auscultation bilaterally. No accessory muscle use CV: Regular rate and rhythm. No murmur. No JVD. No edema Abdomen: +Tenderness LUQ and LLQ. No rebound tenderness or guarding. Soft, non- distended. No palpable masses Extremities: No edema. Pulses intact Skin: No rashes or lesions. Warm to touch Neurologic: No focal neurological deficits. CN II-XII grossly intact, but not individually tested Psychiatric: Cooperative. Appropriate mood and affect Gastrostomy/Enterostomy Jejunostomy 18 Fr. LLQ (Active) Number of days: 31 Implanted IV Device Right Chest (Active) Number of days: 82 STUDIES: Encounter Orders Labs and other studies reviewed with pertinent findings noted below: Latest Reference Range & Units 08/07/23 12:50 Sodium 135 - 146 mmol/L 142 Potassium 3.5 - 5.1 mmol/L 3.6 Chloride 98 - 107 mmol/L 107 CO2 22 - 32 mmol/L 24 BUN 6 - 20 mg/dL 6 Creatinine 0.5 - 1.0 mg/dL 0.6 Estimated Glomerular Filtration Rate >=60 mL/min >90 Anion Gap 7 - 15 mmol/L 11 Glucose 70 - 120 mg/dL 88 Calcium 8.4 - 10.2 mg/dL 9.2 Protein 6.0 - 8.3 g/dL 7.0 CBC Rpt CBC WITH WBC DIFFERENTIAL Rpt ! WBC 4.00 - 10.80 K/uL 5.77 HGB 12.0 - 15.3 g/dL 13.0 HCT 36.0 - 45.2 % 37.7 MCV 81.5 - 97.5 fL 86.5 PLT 140 - 400 K/uL 252 Absolute Neutrophils 1.80 - 7.70 K/uL 2.85 Absolute Lymphocytes 1.00 - 4.80 K/ul 2.50 Absolute Monocytes 0.00 - 1.10 K/uL 0.35 Absolute Eosinophils 0.00 - 0.70 K/uL 0.03 Absolute Basophils 0.00 - 0.20 K/uL 0.02 Albumin 3.8 - 5.0 g/dL 4.2 AST 10 - 35 U/L 13 ALT 10 - 35 U/L 11 Alkaline Phosphatase 35 - 130 U/L 85 Bilirubin, Total <=1.2 mg/dL 0.3 !: Data is abnormal Rpt: View report in Results Review for more information CT A/P 08/07/2023 IMPRESSION: 1. Jejunostomy tube tube tip appears to be at the margin of the abdominal wall and peritoneum. It is not clearly inside the jejunal lumen. Recommend clinical correlation. No contrast seen inside bowel loops. 2. Mild wall thickening of jejunal loops near the jejunostomy tube is nonspecific and may be chronic. Overall nonobstructive bowel gas pattern. 3. Ovarian cysts. Assessment and Plan IMPRESSION: Principal Problem: Malfunction of jejunostomy tube (HCC) Active Problems: Gastroesophageal reflux disease with esophagitis without hemorrhage Endometriosis Gastroparesis Resolved Problems: * No resolved hospital problems. * DIFFERENTIAL AND PLAN: Anirudh is a 22 year old female who presents to [facility] [place] [facility] for evaluation of malpositioned J tube. She has a PMHx significant for gastroparesis, GERD, and endometriosis. Imaging confirming J tube malpositioning. Patient admitted to Medicine with IR evaluation. Malfunction of jejunostomy tube Gastroparesis -CT A/P; J tube positioned within abdominal wall and peritoneum -No signs of infection; afebrile and no leukocytosis -IR consult placed -NPO -IVF overnight @ 75 cc/hr -Pain control prn Dilaudid PHARMACOLOGIC VTE PROPHYLAXIS: Holding 07/23 anticipated IR procedure CODE STATUS: Full Code EXPECTED DISCHARGE DATE: No information available Patient discussed with Dr. Vish Valadez Associated attestation - Vish Valadez MD - 08/08/2023 11:30 PM EST I have reviewed the advanced practitioner's documentation on the date of service referenced in note, and I agree with, and take responsibility for the plan of care. Principal Problem: Malfunction of jejunostomy tube (HCC) Active Problems: Gastroesophageal reflux disease with esophagitis without hemorrhage Endometriosis Gastroparesis Resolved Problems: * No resolved hospital problems. * 22-year-old female with history of gastroparesis, endometriosis on J-tube is transferred to [facility] from [facility] due to dislodged J-tube. CT abdomen/pelvis confirming G-tube malposition. Patient made NPO, IV fluids started. IR consult placed for G-tube exchange. P.r.n. pain control with IV Dilaudid. I spent a total of 40 minutes coordinating, documenting, and providing care for this patient excluding time spent in the performance of separately billed services or time spent by another provider/QHP. documented in this encounter Consult Notes * Demetrice Lemons RDN - 08/11/2023 8:30 AM ESTAssociated Order(s): NUTRITION SERVICES (DIETITIAN) CONSULT IP CLINICAL NUTRITION INTERVAL NOTE [facility] [place] [id number] Name: Anirudh Peñaloza Location: [facility] [place] B731/A Date: 08/11/2023 Time: 8:30 AM How patient was identified (select 2): Medical record number and Name Anirudh Peñaloza is being seen in follow up for enteral nutrition Diet: Clear Liquid Chart reviewed for pertinent nutrition information. Provider reached out to this casualty underwriter regarding tube feeding rate. As per provider. patient prefers to have Peptamen 1.5 at 80 ml/hr over 21 hours. This casualty underwriter recommended at 85 ml/hr over 12 hours.This regimen provides 90 more calories. Discussed about Nutrition prescription with pt. She understands. Doesn't mind about 80 or 85 ml/hr. Provide andhonor pt's preferences. Nutrition Prescription: Energy needs: Other: 20-25 Kcal/kg Kcal/day: 1500 -1875 Based on admission weight - 75 kg Protein needs: 0.8-1.0 gm/kg Protein: 60 - 75 gm Based on admission weight Fluid needs: 1 ml/1 kcal ml/kg Fluid: 1500 -1875 ml/day Based on admission weight NUTRITION INTERVENTION/PLAN: Continue to monitor NPO/clear liquid status Continue to monitor nutrition support Clinical Nutrition Recommendations: Diet: Advance diet when clinically feasible Enteral Nutrition: Peptamen 1.5 at 80 ml/hr over 12 hours , this provides 960 ml, 1440 kcal, 65 gm protein and 739 ml free water Water flushes for maintenance 150 ml 5 x daily - Allow oral liquids as tolerated, if not provide through tube. Demetrice Lemons MS, RDN, LDN Clinical Dietitian [facility] text documented in this encounter Nursing Notes * Melody Garcia RN - 08/10/2023 10:48 AM EST SBAR FOR POST INTERVENTIONAL RADIOLOGY PROCEDURE Patient Name: Anirudh Peñaloza Age:[age] year old Sending to: [facility] Procedure: Jejunostomy Tube Salvage/Exchange Medications Administered: yes: Dilaudid 1 mg Special Instructions: GJ tube may be used immediately. Concerns: no Report from: Melody Phone extension: [phone] Patient sent via: Bed Reason for SBAR handoff: Transfer Patient meets discharge criteria for Interventional Radiology. Vital signs stable. Dressing clean, dry, and intact. Patient awake and oriented to pre procedure baseline. Patient with no nausea/vomiting. All belongings sent with patient. Vital Signs: BP: 102/58 (08/10/23 1030) Temp: 36.2 C (97.2 F) (08/10/23 0945) Pulse: 58 (08/10/23 1030) Resp: 13 (08/10/23 1030) SpO2: 96 % (08/10/23 1030) Weight: 75.3 kg (166 lb) (08/08/23 175) Height: 157.5 cm (5' 2") (08/08/23 175) Neurological: [place] Coma Scale Eyes Open: Spontaneous (08/10/23 0945) Best Verbal Response: Verbally appropriate for age (08/10/23944) Best Motor Response: Obeys commands appropriate for age (08/10/23944) Coma Score: 15 (08/10/23944) Activity: Four Extremities LOC: Fully Awake or Pre-Anesthetic Level of Consciousness Pulse Ox: Greater than or equal to 95% w/o O2 Temp (C): Greater than or equal to 36 deg C BP: Less than (+/-) 20% Pulse: Less than (+/-) 20% Resp: Deep Breathe and Cough Freely Total: 14 (08/10 1000) Respiratory: Pain Assessment Flowsheet Row Most Recent Value Pain Assessment Scale [facility] Adult Scale 0-10 Pain Score 0 (no pain) Lines: Gastrostomy/Enterostomy Jejunostomy 18 Fr. LLQ (Active) Site Description Leaking;Drainage;Painful;Blistered 08/09/23 0800 Securement Balloon/bumper 08/10/23 06 Dressing Status Other (Comment) 08/10/23 06 Dressing Type Open to air 08/10/23 06 Drain Status Waller drainage 08/10/23599 Drainage Appearance Green;Other (Comment) 08/10/23 0428 Output (mL) 200 mL 08/10/23 0428 Number of days: 33 Implanted IV Device Right Chest (Active) Needle Insertion Date 08/07/23 08/09/23 143 Needle Change Due 08/14/23 08/09/23 143 Status Fluids infusing 08/09/231914 Tubing Changed N/A 08/09/231914 Site Description Without redness, swelling or drainage 08/09/231914 Site Intervention None required 08/09/231914 Dressing Assessment Dressing clean, dry, and intact;Transparent dressing;Sponge Chlorhexidine Gluconate dressing;Occlusive 08/09/231914 Dressing Intervention None required 08/09/231914 Line Necessity Yes, meets criteria 08/09/23 1430 Number of days: 84 * Kaitlin Guerin RN - 08/10/2023 9:04 AM EST director of business services note Name: Anirudh Marino Cam Procedure: Jejunostomy Tube Salvage/Exchange Patient ID band checked using two identifiers. Patient placed on procedure table in the supine position with comfort measures intact and safety strap in place. Anesthesia staff preparing patient for procedure. 9:11 AM RT staff preparing for procedure. 9:18 AM Timeout performed by Dr. Tk Aden . Correct catheter/tube size verbalized and verified during timeout. 9:19 AM Procedure started by Dr. Diamond Long and Ivett, scrubbed RT. Images obtained. 9:19 AM Guidewire inserted. Images obtained. 9:20 AM Old drain removed. 9:26 AM Avanos Francisco Javier Jejunal Feeding Tube inserted. (18 Fr.; Lot: [id number]; Exp: 02/02/2025). Ballooninflated with 4 mL sterile water. Images obtained. 9:28 AM Area cleaned. All wires, catheters, sheaths and other devices have been inspected prior to the procedure for damage. This has been confirmed by the scrubbed RT and the operating physician. All items not intended to remain in the patient have been inspected, accounted for and have been removed from the patient atthe end of the procedure. This has been confirmed by the scrubbed RT and the operating physician. Anesthesia team managed hemodynamic monitoring and sedation throughout procedure. No Medications Given by IR Please see doctor's operative note for additional details. * Alicia Elmore LPN - 08/10/2023 8:17 AM EST INPATIENT TO INTERVENTIONAL RADIOLOGY (IR) HANDOFF COMMUNICATION NOTE [facility] [address] [address] Name: Anirudh Peñaloza Age: [age] year old Location: [facility] [place] B731/A Date: 08/10/2023 Safety Concerns: None Allergies: Compazine [prochlorperazine], Droperidol, Haldol [haloperidol], Hydroxyzine, Reglan [metoclopramide], and Tigan [trimethobenzamide] Contrast Dye Allergy? no Allergy prepped? N/A Code Status: Full Code Isolation: none Report from: Alicia Elmore LPN at phone extension [phone] Patient arriving via: Bed Reason for SBAR handoff: Procedure Patient is alert and oriented and able to sign consent (if not, bus person and number): Yes Patient NPO: yes Patient NPO since: 0000 Patient wears CPAP, BiPAP, or oxygen overnight: no Patient has difficulty breathing when lying flat? no Emotional/Personal Anxiety? no Last as needed pain medication given at (time): n/a Situation/Background Admission date: 08/08/2023 Patient Service: Med R [[id number]] Attending Provider: Isi Renteria MD Admitting diagnosis: Dislodged jejunostomy tube Malfunction of jejunostomy tube (HCC) Chief Complaint: No chief complaint on file. Problem list: Principal Problem: Malfunction of jejunostomy tube (HCC) Active Problems: Gastroesophageal reflux disease with esophagitis without hemorrhage Endometriosis Gastroparesis Resolved Problems: * No resolved hospital problems. * Level of Care: Med Surg [3] Vital Signs: BP: 106/71 (08/09/232211) Temp: 36 C (96.8 F) (08/09/232211) Pulse: 68 (08/09/232211) Resp: 14 (08/09/232211) SpO2: 99 % (08/09/232211) Weight: 75.3 kg (166 lb) (08/08/231755) Height: 157.5 cm (5' 2") (08/08/231755) Labs: Please see Lab Flowsheet for lab values. Lab comments: no Lines: Gastrostomy/Enterostomy Jejunostomy 18 Fr. LLQ (Active) Site Description Leaking;Drainage;Painful;Blistered 08/09/23 0800 Securement Balloon/bumper 08/10/23599 Dressing Status Other (Comment) 08/10/23599 Dressing Type Open to air 08/10/23599 Drain Status Waller drainage 08/10/23599 Drainage Appearance Green;Other (Comment) 08/10/23427 Output (mL) 200 mL 08/10/23 0428 Number of days: 33 Implanted IV Device Right Chest (Active) Needle Insertion Date 08/07/23 08/09/231429 Needle Change Due 08/14/23 08/09/231429 Status Fluids infusing 08/09/231914 Tubing Changed N/A 08/09/231914 Site Description Without redness, swelling or drainage 08/09/231914 Site Intervention None required 08/09/231914 Dressing Assessment Dressing clean, dry, and intact;Transparent dressing;Sponge Chlorhexidine Gluconate dressing;Occlusive 08/09/231914 Dressing Intervention None required 08/09/231914 Line Necessity Yes, meets criteria 08/09/231429 Number of days: 84 Fall Scale: Fall Score: 35 (08/09/232299) Fall Interventions: Bed at low level;Bed alarm on;Yellow armband applied/intact and on patient;Fallrisk sign above bed;Fall risk sign outside room;Floor free of clutter;Non-skid foot covering on;Walk path free of obstacles (08/09/232299) Neurological: [place] Coma Scale Eyes Open: Spontaneous (08/09/232299) Best Verbal Response: Verbally appropriate for age (08/09/232299) Best Motor Response: Obeys commands appropriate for age (08/09/232299) Coma Score: 15 (08/09/232299) Additional Neurological Information: no Respiratory: Respiratory WNL: WNL- within normal limits (08/09/23 08) Oxygen therapy/ Mechanical vent O2 %: 100 % (08/08/231999) O2 flow rate: 0 L/MIN (08/09/23 1400) Supplemental O2 Delivery: Room Air, None (08/09/232211) O2 flow rate: 0 L/MIN (08/09/23 1400) Additional Respiratory Information: no Cardiac: Cardiovascular WNL: WNL - within normal limits (08/10/23 06) Rhythm: NSR (08/09/23 1400) Additional Cardiac Information: no GI/: GI WNL: WNL - within normal limits (08/09/231914) Abdomen: Soft;Non-distended (08/09/231914) Bowel Sounds: All Quadrants;Present (08/09/231914) Additional GI/ Information: no Integumentary: Integumentary WNL: X - Exceptions to WNL as documented below (08/09/23 08) Skin Description: Warm;Dry (08/09/23 1301) Skin Color: Flesh Tone (08/09/23 0800) Skin Lesion: Rash (08/09/23 08) Madhav Score (auto-calculation): 20 (08/09/23 2300) Skin Breakdown (including Red, Non-Blanchable Areas) Present on Admission?: No (08/08/231743) Additional Integumentary Information: no Restraints: No orders of the defined types were placed in this encounter. * Cammy Way RN - 08/09/2023 5:52 PM EST Patient back from complaining of extreme pain on left side of abdomen 03/30 . Myra Snowden notified and made adjustments to prn pain med regimen. Pt requesting to be transferred to [facility] if OR cannot place J Tube. Pt has spoke with surgery team at [facility] and has requested pt to ask current provider at [facility] to call. aware. Pt has several questions for current doctor providing care here at [facility]. aware. Pt is in bed and call light within reach. * Kaitlin Guerin RN - 08/09/2023 1:55 PM EST SBAR FOR POST INTERVENTIONAL RADIOLOGY PROCEDURE Patient Name: Anirudh Peñaloza Age:[age] year old Sending to: [facility] Procedure: J Tube Salvage Medications Administered: yes: Lidocaine, Lidocaine Gel, Fentanyl, Versed, Dilaudid, Benadryl Special Instructions: Drain able to be used after CT obtained. Concerns: no Report from: Kaitlin Phone extension: [phone] Patient sent via: Bed Reason for SBAR handoff: Transfer post procedure Patient meets discharge criteria for Interventional Radiology. Vital signs stable. Dressing clean, dry, and intact. Patient awake and oriented to pre procedure baseline. All belongings sent with patient. Vital Signs: BP: 120/82 (08/09/23 1340) Temp: 37 C (98.6 F) (08/09/23 1340) Pulse: 77 (08/09/23 1340) Resp: 10 (08/09/23 134) SpO2: 96 % (08/09/23 134) Weight: 75.3 kg (166 lb) (08/08/23 175) Height: 157.5 cm (5' 2") (08/08/23 175) Neurological: [place] Coma Scale Eyes Open: Spontaneous (08/09/23 134) Best Verbal Response: Verbally appropriate for age (08/09/23 134) Best Motor Response: Obeys commands appropriate for age (08/09/23 134) Coma Score: 15 (08/09/23 134) Activity: Four Extremities LOC: Fully Awake or Pre-Anesthetic Level of Consciousness BP: Less than (+/-) 20% Resp: Deep Breathe and Cough Freely (08/09 1332) Respiratory: Pain Assessment Flowsheet Row Most Recent Value Pain Assessment Scale isinger Adult Scale 0-10 Pain Score 0 (no pain) Lines: Gastrostomy/Enterostomy Jejunostomy 18 Fr. LLQ (Active) Site Description Leaking;Drainage;Painful;Blistered 08/09/23799 Securement Balloon/bumper 08/09/23799 Dressing Status Removed 08/09/23799 Dressing Type Open to air 08/09/23799 Drain Status Clamped 08/09/23799 Number of days: 32 Implanted IV Device Right Chest (Active) Needle Insertion Date 08/07/23 08/08/231842 Needle Change Due 08/14/23 08/08/231842 Status Alcohol disinfectant cap 08/09/23799 Tubing Changed N/A 08/09/23799 Site Description Without redness, swelling or drainage 08/09/23799 Site Intervention Flushed 08/09/23799 Dressing Assessment Dressing clean, dry, and intact;Transparent dressing;Sponge Chlorhexidine Gluconate dressing;Occlusive 08/09/23799 Dressing Intervention None required 08/09/23799 Line Necessity Yes, meets criteria 08/09/23799 Number of days: 83 * Kaitlin Guerin RN - 08/09/2023 12:37 PM EST director of business services note Name: Anirudh Peñaloza Procedure: Jejunostomy Tube Exchange Patient ID band checked using two identifiers. Patient placed on procedure table in the supine position with comfort measures intact and safety strap in place. Hemodynamic monitoring initiated. Patient denies any complaints at current time. RT staff preparing for procedure. Reevaluation statement: The patient was reevaluated by Dr. Yariel Alvarado immediately prior tothe sedation at 1:03 PM. 1:03 PM 50 mcg Fentanyl and 2 mg Versed administered. 1:09 PM 1 mg Dilaudid administered. 1:11 PM Timeout performed by Dr. Yariel Alvarado. Correct catheter/tube size verbalized and verified during timeout. 1:13 PM Procedure started by Dr. Yariel Alvarado and reynaldo Root RT. Images obtained. Existing J tube fell out of skin. Guidewire inserted. Images obtained. 1:15 PM 50 mcg Fentanyl and 2 mg Versed administered. 1:18 PM 1 mg Dilaudid administered. 1:23 PM 50 mcg Fentanyl and 50 mg Benadryl administered. 1:26 PM 25 mcg Fentanyl and 1 mg Versed administered. 1:27 PM [employer] Multipurpose Drainage Catheter inserted. (12 Fr. X 25 cm; Lot: [id number]; Exp: 06/23/2026). Images obtained. Drain sutured. 1:34 PM Area cleaned. All wires, catheters, sheaths and other devices have been inspected prior to the procedure for damage. This has been confirmed by the scrubbed RT and the operating physician. All items not intended to remain in the patient have been inspected, accounted for and have been removed from the patient atthe end of the procedure. This has been confirmed by the scrubbed RT and the operating physician. Pt did receive conscious sedation for their procedure, and was sedated from 1:03 PM to 1:40 PM. Total Medications Benadryl: 50 mg Dilaudid: 2 mg Fentanyl: 175 mcg Buffered Lidocaine: 10 mL Lidocaine Gel 2%: 1 application Versed: 5 mg Please see doctor's operative note for additional details. * Dedra Moore RN - 08/09/2023 12:06 PM EST Patient does not meet criteria for testing. Patient had a hysterectomy. * Cammy Way RN - 08/09/2023 10:15 AM EST INPATIENT TO INTERVENTIONAL RADIOLOGY (IR) HANDOFF COMMUNICATION NOTE [facility] [place] [address] [address] Name: Anirudh Peñaloza Age: [age] year old Location: [facility] [place] B731/A Date: 08/09/2023 Safety Concerns: None Allergies: Compazine [prochlorperazine], Droperidol, Haldol [haloperidol], Hydroxyzine, Reglan [metoclopramide], and Tigan [trimethobenzamide] Contrast Dye Allergy? no Allergy prepped? N/A Code Status: Full Code Isolation: na Report from: Cammy Way RN at phone extension [phone] Patient arriving via: Bed Reason for SBAR handoff: Procedure Patient is alert and oriented and able to sign consent (if not, bus person and number): Yes Patient NPO: yes Patient NPO since: 0000 Patient wears CPAP, BiPAP, or oxygen overnight: no Patient has difficulty breathing when lying flat? no Emotional/Personal Anxiety? no Last as needed pain medication given at (time): 1012 Situation/Background Admission date: 08/08/2023 Patient Service: Med R [[id number]] Attending Provider: Isi Renteria MD Admitting diagnosis: Dislodged jejunostomy tube Malfunction of jejunostomy tube (HCC) Chief Complaint: No chief complaint on file. Problem list: Principal Problem: Malfunction of jejunostomy tube (HCC) Active Problems: Gastroesophageal reflux disease with esophagitis without hemorrhage Endometriosis Gastroparesis Resolved Problems: * No resolved hospital problems. * Level of Care: Med Surg [3] Vital Signs: BP: 110/51 (08/08/232253) Temp: 36.7 C (98.1 F) (08/08/232253) Pulse: 62 (08/08/232253) Resp: 16 (08/08/232253) SpO2: 100 % (08/08/232253) Weight: 75.3 kg (166 lb) (08/08/231755) Height: 157.5 cm (5' 2") (08/08/231755) Labs: Please see Lab Flowsheet for lab values. Lab comments: no Lines: Gastrostomy/Enterostomy Jejunostomy 18 Fr. LLQ (Active) Site Description Other- describe 08/08/23 1800 Securement Balloon/bumper 08/08/23 1800 Dressing Status Removed 08/08/23 1800 Dressing Type Open to air 08/08/23 1800 Drain Status Clamped 08/08/23 1800 Number of days: 32 Implanted IV Device Right Chest (Active) Needle Insertion Date 08/07/23 08/08/23 184 Needle Change Due 08/14/23 08/08/231842 Status Alcohol disinfectant cap;Capped/Locked;Cap changed;Flushes easily;Positive blood return 08/08/231999 Tubing Changed N/A 08/08/231999 Site Description Without redness, swelling or drainage 08/08/231999 Site Intervention Flushed 08/08/231999 Dressing Assessment Dressing clean, dry, and intact;Transparent dressing;Sponge Chlorhexidine Gluconate dressing;Occlusive 08/08/231999 Dressing Intervention None required 08/08/231999 Line Necessity Yes, meets criteria 08/08/231999 Number of days: 83 Fall Scale: Fall Score: 35 (08/08/231999) Fall Interventions: Bed at low level (call lopez within reach) (08/08/231999) Neurological: [place] Coma Scale Eyes Open: Spontaneous (08/08/231999) Best Verbal Response: Verbally appropriate for age (08/08/231999) Best Motor Response: Obeys commands appropriate for age (08/08/231999) Coma Score: 15 (08/08/231999) Additional Neurological Information: no Respiratory: Respiratory WNL: WNL- within normal limits (08/08/231999) Oxygen therapy/ Mechanical vent O2 %: 100 % (08/08/231999) Supplemental O2 Delivery: Room Air, None (08/08/23 378) Additional Respiratory Information: no Cardiac: Cardiovascular WNL: WNL - within normal limits (08/08/231999) Rhythm: Regular (08/08/23 1756) Additional Cardiac Information: no GI/: GI WNL: X - Exceptions to WNL as documented below (08/08/231999) Abdomen: Soft;Non-distended;Non-tender (08/08/231999) Bowel Sounds: All Quadrants;Present (08/08/231999) Additional GI/ Information: no Integumentary: Integumentary WNL: X - Exceptions to WNL as documented below (08/08/231999) Skin Description: Dry;Warm (08/08/231999) Skin Color: Flesh Tone (08/08/231999) Skin Lesion: Rash (08/08/231999) Madhav Score (auto-calculation): 19 (08/08/231999) Skin Breakdown (including Red, Non-Blanchable Areas) Present on Admission?: No (08/08/23 174) Additional Integumentary Information: yes: piercings Restraints: No orders of the defined types were placed in this encounter. * Cammy Way RN - 08/08/2023 6:30 PM EST Dual Licensed Skin Assessment completed by Cammy Gonzales RN and Moni Gonzales RN. The patient is/has a N/A Skin Breakdown (includes non blanchable erythema): No documented in this encounter Miscellaneous Notes * Ancillary Progress Note - Orlando Lopez RN - 08/12/2023 11:20 AM EST CARE MANAGEMENT - ADULT DISCHARGE NOTE [facility] [place] [address] Name: Anirudh Peñaloza Location: [facility] [place] B731/A Date: 08/12/2023 Time: 11:20 AM The following coordination of care and discharge plan has been coordinated with the care team, patient, family and/or caregiver according to the patients needs and preferences. Discharge Discharge Second Notice Important Message from Medicare delivered: Not Applicable (08/12/23 1118) Was Caregiver/Family/Facility contacted regarding discharge: Yes (08/12/231117) Discharge Transportation: Family/Friends drive (08/12/231117) Final Discharge Plan (Complete only at time of Discharge): Home with Services (resume enteral feeding with [facility]) (08/12/231117) Destination - Admitted Since 08/08/2023 No services have been selected for the patient. Dialysis/Infusion - Admitted Since 08/08/2023 Service Provider Selected Services Address Phone Fax Patient Preferred Last Updated [facility] Infusion and IV Therapy [address] [facility] [id number] -- Orlando Lopez RN 08/12/2023 1120 Internal Comment last updated by Orlando Lopez RN 08/12/2023 1120 Enteral feeding-Jejunostomy tube Narrative: Patient being discharged home with resumption of care with [facility] enteral product/supplies. IS made aware of pt's discharge. Pt's family transporting t home at discharge. I have conducted the discharge appointment with the patient (ph: bedside, provider-Dr. Rona Toney), Care Management, nursing, provider, and FRANKLIN Yap on 08/12/2023 at 1030 . This discussion occurred bedside and other phone, IDTs . Meds to beds offered: yes. The following post care is planned: PCP follow up. I encouraged the patient and/or family to call the hospital with any questions or concerns about the hospital admission. * Care Plan - Olamide Johnson RN - 08/12/2023 1:33 AM EST Clinical Goal(s): Pt will remain free from injury and falls during this shift (08/12/23 0132) Possible barriers to meeting goal(s)/advancing plan of care: acuity of illness Stability of the patient: Moderately unstable - medium risk of patient condition declining or worsening Summary regarding today's goal(s): Met: Recommendations: acuity of illness * Care Ann-Marie - Olamide Johnson RN - 08/12/2023 1:30 AM EST Clinical Goal(s): pt will maintain adquate pain tolerance for this shift. (08/11/23 1444) Possible barriers to meeting goal(s)/advancing plan of care: acuity of illness Stability of the patient: Moderately unstable - medium risk of patient condition declining or worsening Summary regarding today's goal(s): Met: Recommendations: continue with POC * Care Ann-Marie - Sweta Mclaughlin RN - 08/11/2023 4:12 PM EST Clinical Goal(s): pt will maintain adquate pain tolerance for this shift. (08/11/23 1444) Possible barriers to meeting goal(s)/advancing plan of care: Problem: Pain & Impaired Comfort Goal: Patient's pain & discomfort is manageable. Outcome: Completed Stability of the patient: Moderately stable - low risk of patient condition declining or worsening Summary regarding today's goal(s): Met: patient has maintained adequate pain tolerance for this shift with available meds Recommendations: Continue current POC. * Ancillary Progress Note - Orlando Lopez RN - 08/11/2023 11:52 AM EST CARE MANAGEMENT - ADULT TRANSITION NOTE [facility] [place] [address] Name: Anirudh Peñaloza Location: [facility] [place] B731/A Date: 08/11/2023 Time: 11:53 AM Risk Stratification Risk Stratification Psycho Social / Medical Concerns Identified: Adjustment to illness/injury;New serious diagnosis;Multiple Comorbidities (08/09/23923) Accessed [employer] to connect patients to social care resources: No (08/09/23923) OBRA or OPTIONS needed for placement: No (08/09/23923) Readmission Risk Score: 34.76 (08/11/23 08) AM-PAC Score With Stairs : 24 (08/11/23 08) Caregiver Information Patient Contacts Name Relation Home Work Mobile Latrice Whyte Significant Other [phone] Debby Peñaloza Mother [phone] [employer] Father [phone] Transition of Care Checklist Transition of Care Checklist (aka Readmission Risk Score) Discharge Disposition: Home (08/09/23925) Home or Home w/Home Health: High (18-33%) (08/09/23925) Narrative: Patient discussed in IDT's today. Increasing feeds today, pain managementneeds. CM will continue to follow pt to assess discharge needs. Encouraged pt to contact CM with any questions/concerns. Anticipated Transportation at Discharge: family Patient/Family Expectations: Pt to be discharged when medically stable. Transition Planning Transition Planning Transition Plan/Considerations: No needs identified - Return home;Needs uncertain at this time - Continue monitoring for needs (08/09/23925) Patient's social support at time of discharge: Will be residing with family who is ABLE to help care for the patient;Other - Describe (grand parents) (08/09/23925) [facility] Quality Rating provided to patient: No (08/09/23925) Repisodic Choice provided to patient: No (08/09/23925) Transition plan discussed with - Enter name and phone #: spoke with pt at bedside (08/09/23925) Insurance Considerations: Precertification needed for Post-Acute Care (08/09/23925) Additional Considerations: Care Management will continue to monitor and assist with discharge planning needs * Care Plan - Corey Ordonez RN - 08/11/2023 6:36 AM EST Clinical Goal(s): pt will be free from injuries for shift (08/10/23 2300) Possible barriers to meeting goal(s)/advancing plan of care: current medical condition Stability of the patient: Moderately stable - low risk of patient condition declining or worsening Summary regarding today's goal(s): Met: pt remained free from injuries for shift Recommendations: hourly rounds, implement safety measures * Pre-Sedation Assessment - Tk Aden MD - 08/10/2023 8:39 AM EST PRE-SEDATION ASSESSMENT PRE-SEDATION ASSESSMENT: J Tube Placement Level of sedation planned: Deep Patient's allergies reviewed: Yes H&P Review / Interval Note Documentation: I have reviewed the H&P previously performed, examined the patient today, and there are no new findings. Over wire exchange of pigtail catheter with J tube . Procedure to be done under [place]. Please see sedation assessment by anesthesia service. The patient was identified and the procedure verified: Yes The patient was reevaluated immediately prior to the sedation: 08/10/2023 8:40 AM Diamond Long MD, FACP PGY 6 - Fellow Vascular and Interventional Radiology 08/10/2023, 8:41 AM I have discussed the patient's management with the medical trainee and agree with the note. Please refer to the documented findings and plan of care. This patient's visit today consisted of a service. I was readily available for immediate [id number] consultation and assistance. I have reviewed the medical history, physical examination, diagnosis, and plan. Tk Aden MD, MARLENI Vascular and Interventional Radiology, * Care Plan - Corey Ordonez RN - 08/10/2023 7:08 AM EST Clinical Goal(s): pt will be free from injuries for shift (08/09/23 2300) Possible barriers to meeting goal(s)/advancing plan of care: current medical condition Stability of the patient: Moderately stable - low risk of patient condition declining or worsening Summary regarding today's goal(s): Met: pt remained free from injuries for shift Recommendations: hourly rounds, implement safety measures * Care Plan - Cammy Way RN - 08/09/2023 4:39 PM EST Problem: Pain & Impaired Comfort Goal: Patient's pain & discomfort is manageable. Outcome: Progressing Clinical Goal(s): patient pain will be controlled this shift (08/09/23 0700) Possible barriers to meeting goal(s)/advancing plan of care: Disease process Stability of the patient: Moderately stable - low risk of patient condition declining or worsening Summary regarding today's goal(s): Met: Recommendations: Continue with plan of care * Ancillary Progress Note - Demetrice Lemons RDN - 08/09/2023 3:32 PM EST CLINICAL NUTRITION CONSULT/PROGRESS NOTE [facility] [place] [address] Name: Anirudh Peñaloza Location: [facility] [place] B731/A Date: 08/09/2023 Time: 3:32 PM How patient was identified (select 2): Medical record number and Name Discussed in interdisciplinary rounds: No Anirudh Peñaloza is a 22 year old female being seen for enteral nutrition, reduced dietary intake, unable to answer, and significant unintentional weight loss Primary Diagnosis: from [place] for evaluation of malpositioned J tube Other pertinent information: Patient reports that she has been receiving Peptamen 1.5, 250 ml 4 cartons x 12 hours daily. States that she doesn't have an appetite and she have been having intermittent nausea and not able to eat well. She only take noodle soup as pleasure feeds - 3 x weekly. Reportsnausea, and abdominal discomfort. Last BM was on 08/06. NUTRITION ASSESSMENT: Past medical/surgical history and medications reviewed. Food/Nutrition-Related History Nutrition Support: Currently not on. Diet: NPO Previously followed diet: pleasure feeds-soups, Peptamen 1.5, 250 ml 4 x day 1500 kcal, 68 gm protein. Food Allergies/Intolerances: None Adult Energy Intake: No significant decrease Receiving tube feeds Pertinent medications/vitamins/minerals/supplements: Isolyte, zofran Pertinent Biochemical Data: Nutritional related labs reviewed. There are no biochemical abnormalities requiring a change in thenutrition plan of care. Nutrition-Focused Physical Findings: Appearance: WNWD Respiratory support: Supplemental O2 Delivery: Room Air, None Nasal/Oral: No issues identified Digestive: Appetite poor, Nausea, and gastroparesis Last Bowel Movement: 08/06/23 (08/09/23 0800) Cognition: Awake, alert and Oriented Skin: Intact Enteral access: G/J Tube Nutrition Focused Physical Exam: NFPE completed on 08/09/23 Subcutaneous Fat Loss: No significant subcutaneous fat loss noted. Muscle Loss: No significant muscle loss noted. Anthropometrics Measurements Height: 157.5 cm (5' 2") (08/08/231755) Admission weight: 75.297 kg (166 lb) Weight: 75.3 kg (166 lb) (08/08/231755) BMI: 30.35 (08/08/231755) Usual Body Weight: 51- 62 kg per EHR [place] weight: 61.8 kg per EHR [place] Weight Based on BMI: 24.9 Adjusted ideal weight: N/A Interpretation of Weight Change Prior to Admission: Weight gain Nutrition Prescription: Energy needs: Other: 20-25 Kcal/kg Kcal/day: 1500 -1875 Based on admission weight - 75 kg Protein needs: 0.8-1.0 gm/kg Protein: 60 - 75 gm Based on admission weight Fluid needs: 1 ml/1 kcal ml/kg Fluid: 1500 -1875 ml/day Based on admission weight Malnutrition: Malnutrition Present: No (08/09/23 1549) NUTRITION DIAGNOSIS: Altered GI function related to severe gastroparesis, nausea as evidenced by inadequate oral intake and need for enteral nutrition Goals: Diet advancement or initiation of enteral/parenteral nutrition within 24-48 hours. NUTRITION INTERVENTION/PLAN: Continue to monitor NPO/clear liquid status Continue to monitor nutrition support Clinical Nutrition Recommendations: Diet: Advance diet when clinically feasible When able, Consider pleasure feeds/soft diet as tolerated Enteral Nutrition: When able resume Peptamen 1.5 to the goal rate of 85 ml/hr/ over 12 hours to provide 1530 kcal, 69 gm protein and 1374 ml free water Additional water flushes 200 ml TID NUTRITION MONITORING AND EVALUATION: NPO status/diet advancement and tolerance Lab values warranting change with MNT Weight for trends Plan follow-up: Will follow and adjust nutrition plan of care as medical condition requires. Please contact for change(s) in patient condition requiring earlier intervention. Demetrice Lemons MS, RYANN, LDN Clinical Dietitian [facility] text * Pre-Sedation Assessment - Yariel Alvarado MD - 08/09/2023 12:06 PM EST PRE-SEDATION ASSESSMENT PRE-SEDATION ASSESSMENT: J Tube Check And Exchange/Salvage Level of sedation planned: Moderate Patient's allergies reviewed: Yes H&P Review / Interval Note Documentation: There is no H&P on file. Difficulty with sedation / anesthesia: No Sleep apnea: No History of snoring: Yes History of difficult intubation: No Decreased ROM neck flexion/extension: No Tracheal deviation: No Decreased ability to open mouth / TMJ: No Loose teeth / dentures / partial: No Congenital deformities / abnormalities: No Dysphagia: No Mallampati Classification: II - soft palate, uvula, fauces visible Chest: Clear Heart: Regular Rhythm Adequate Vascular Access: Yes ASA Risk Stratification (Select One): ASA 3 - Severe systemic disease, definite functional limitations The patient was identified and the procedure verified: Yes The patient was reevaluated immediately prior to the sedation: 08/09/2023 12:07 PM * Ancillary Progress Note - Orlando Lopez RN - 08/09/2023 9:28 AM EST CARE MANAGEMENT - ADULT INITIAL SCREENING [address] [id number] Name: Anirudh Peñaloza [place] [facility] [place] B731/A Date: 08/09/2023 Time: 9:28 AM Discussed patient with the interdisciplinary care team. This Dry Roller performed a chart review and met with patient at bedside to complete admission screen and assessed needs for transition planning. The care program director role and services were explained and emotional support was provided. Chief Complaint: No chief complaint on file. Prior Living Arrangements What was your living situation prior to admission/observation?: Independently;Other (Comment) (lives with grandparents) (08/09/23923) Living Quarters: House (08/09/23923) Number of steps to enter living quarters:: GRICELDA-0, steps to go upstairs-12 (08/09/23923) History of falling: No (08/08/231999) Prior Level of Functioning Describe the patient's ability prior to admission/observation to perform ADLs: Performs independently (08/09/23923) Describe the patient's mobility status prior to admission: Patient ambulates independently (08/09/23923) Patient uses assistive device: No (08/09/23923) Caregiver Information Patient Contacts Name Relation Home Work Mobile Latrice Whyte Significant Other [phone] CamDebby Mother [phone] CAMMIRYAMSHAKIRA Father [phone] Risk Stratification/Psychosocial/Care Gaps Risk Stratification Psycho Social / Medical Concerns Identified: Adjustment to illness/injury;New serious diagnosis;Multiple Comorbidities (08/09/23923) Accessed Neighborly to connect patients to social care resources: No (08/09/23923) OBRA or OPTIONS needed for placement: No (08/09/23923) Readmission Risk Score: 32.86 (08/09/23 0801) AM-PAC Score With Stairs : 24 (08/08/231999) Prior to Admission Services Services Prior to Admission [place] Dept. of Aging (PDA) Waiver Program: N/A (08/09/23923) PUMP REBUILDER Transportation (Services received within the last 30 days): Family/Friends Personal Vehicle;Patient drives self (08/09/23923) Outpatient Dry Roller: No care steam fitter helper to display Patient/Family Expectations: CM met with pt. CM role/services explained. Pt admitted with dislodgedjejunostomy tube, malfunction of jejunostomy tube, hx of PMHx significant for gastroparesis, GERD, and endometriosis. Pt lives with grand parents-supportive/assists pt at home. CM will continue to follow pt to assess discharge needs. Encouraged pt to contact CM with any questions/concerns. Pt denies inpatient rehab stays for ETOH, drugs related within the last 2 years. For further screening information, please refer to the Care Management flow document. * Care Plan - Yina Montoya RN - 08/09/2023 5:09 AM EST Clinical Goal(s): patient pain will be controlled during this shift (08/08/23 2300) Possible barriers to meeting goal(s)/advancing plan of care: chronic pain Stability of the patient: Moderately unstable - medium risk of patient condition declining or worsening Summary regarding today's goal(s): Met: patient sleeping comfortably Recommendations: continue plan of care documented in this encounter Plan of Treatment Upcoming Encounters Date Type Department Care Team (Late st Contact Info) Description 08/20/2023 1:50 PM EST Telemedicine Nutrition & Weight Management, [facility] [address] [address] Kaity Yap RDN [address] [address] 09/20/2023 12:40 PM EDT Office Visit Nutrition & Weight Management, [facility] [address] [address] Cee Santizo PA-C [address] [place] [address] 12/08/2023 5:20 PM EDT Office Visit [facility] [place] [address] [phone] Kinjal Reynoso PA-C [address] [phone] Pending Results Name Type Priority Associated Diagnoses Date/Time IR GASTROINTESTINAL OSTOMY Medical Imaging Routine 08/10/2023 9:32 AM EST Scheduled Orders Name Type Priority Associated Diagnoses Order Schedule IR GASTROINTESTINAL OSTOMY Medical Imaging Routine One Time for 1 Occurrences starting 08/09/2023 until 08/09/2023 Health Maintenance Due Date Last Done Comments [...] this encounter Medical Devices Implanted Type Area Vacuum Applicator Operator Device Identifier Shelf Expiration Date Model / Serial / Lot Port Implant W/8f Poly Cath - [id number] Implanted:Qty : 1 on 05/18/2023 by Juan Jose Connell DO at [facility] Right: Chest CR BARD : PERIPHERAL VASCULAR [id number] 11/18/2024 [id number] / / [id number] documented as of this encounter Procedures Procedure Name Priority Date/Time Associated Diagnosis Comments HEPATIC FUNCTION PANEL Routine 11:21 AM EST BASIC METABOLIC PANEL Routine 08/12/2023 11:21 AM EST PHOSPHORUS Routine 08/12/2023 11:21 AM EST CBC Routine 08/12/2023 11:21 AM EST MAGNESIUM Routine 08/12/2023 11:21 AM EST COMPREHENSIVE METABOLIC PANEL STAT 08/11/2023 10:25 AM EST PHOSPHORUS STAT 08/11/2023 10:25 AM EST CBC STAT 08/11/2023 10:25 AM EST MAGNESIUM STAT 08/11/2023 10:[address] ABD/PELVIS W IV CONTRAST - WO ORAL CONTRAST STAT 08/09/2023 7:06 PM EST IR GASTROINTESTINAL OSTOMY Routine 08/09/2023 1:31 PM EST BASIC METABOLIC PANEL Routine 08/09/2023 6:32 AM EST CBC Routine 08/09/2023 6:32 AM EST SARS-COV-2 (COVID-19), NAAT STAT 08/08/2023 11:08 PM EST MRSA SCREEN, PCR Routine 08/08/2023 11:0 8 PM EST documented in this encounter Results * MAGNESIUM (08/12/2023 11:21 AM EST) Magnesium 1.9 1.5 - 2.6 mg/dL 08/12/2023 12:10 PM EST [facility]ATORY [facility] Blood Blood sample taken from central line / Unknown Central Line / Unknown 08/12/2023 11:21 AM EST 08/12/2023 11:32 AM EST Vikram Toney MD LAB BLOOD ORDERABLES Performing Organization Address City/State/[facility] Co de Phone Number [facility] [address] [place] [address] * (ABNORMAL) CBC (08/12/2023 11:21 AM EST) WBC 4.72 4.00 - 10.80 K/uL 08/12/2023 11:59 AM EST [facility] RBC 4.00 3.85 - 5.15 M/uL 08/12/2023 11:59 AM EST [facility] HGB 12.0 12.0 - 15.3 g/dL 08/12/2023 11:59 AM EST [facility] HCT 35.1(L) 36.0 - 45.2 % 08/12/2023 11:59 AM EST [facility] MCV 87.8 81.5 - 97.5 fL 08/12/2023 11:59 AM EST [facility] MCH 30.0 27.0 - 34.0 pg 08/12/2023 11:59 AM EST [facility] MCHC 34.2 32.0 - 36.0 g/dL 08/12/2023 11:59 AM EST [facility] RDW 13.1 11.5 - 15.5 % 08/12/2023 11:59 AM EST [facility] PLT 245 140 - 400 K/uL 08/12/2023 11:59 AM EST [facility] MPV 10.2 6.6 - 11.1 fL 08/12/2023 11:59 AM EST [facility] nRBCs 0 <=0 /100 WBCs 08/12/2023 11:59 AM EST [facility] Blood Blood sample taken from central line / Unknown Central Line / Unknown 08/12/2023 11:21 AM EST 08/12/2023 11:32 AM EST Virkam Toney MD LAB BLOOD ORDERABLES [facility] [address] [place] [address] * BASIC METABOLIC PANEL (08/12/2023 11:21 AM EST) BUN 7 6 - 20 mg/dL 08/12/2023 12:10 PM EST [facility] Creatinine 0.6 0.5 - 1.0 mg/dL 08/12/2023 12:10 PM EST [facility] Estimated Glomerular Filtration Rate >90 >=60 mL/min 08/12/2023 12:10 PM EST [facility] Comment:eGFR is calculated b ased on the CKD-EPI 2020 equation Sodium 137 135 - 146 mmol/L 08/12/2023 12:10 PM EST [facility] Potassium 3.7 3.5 - 5.1 mmol/L 08/12/2023 12:10 PM EST [facility] Chloride 104 98 - 107 mmol/L 08/12/2023 12:10 PM EST [facility] CO2 23 22 - 32 mmol/L 08/12/2023 12:10 PM EST [facility] Anion Gap 10 7 - 15 mmol/L 08/12/2023 12:10 PM EST [facility] Glucose 116 70 - 120 mg/dL 08/12/2023 12:10 PM EST [facility] Calcium 8.5 8.4 - 10.2 mg/dL 08/12/2023 12:10 PM EST [facility] Blood Blood sample taken from central line / Unknown Central Line / Unknown 08/12/2023 11:21 AM EST 08/12/2023 11:32 AM EST Vikram Toney MD LAB BLOOD ORDERABLES [facility] [address] [place] [address] * PHOSPHORUS (08/12/2023 11:21 AM EST) Phosphorus 3.4 2.5 - 4.8 mg/dL 08/12/2023 12:10 PM EST [facility] Blood Blood sample taken from central line / Unknown Central Line / Unknown 08/12/2023 11:21 AM EST 08/12/2023 11:32 AM EST Vikram Toney MD LAB BLOOD ORDERABLES Performing Organization Address [facility] Co de Phone Number LABORATORY [facility] [place] [address] [place] [address] * (ABNORMAL) HEPATIC FUNCTION PANEL (08/12/2023 11:21 AM EST) Albumin 3.5(L) 3.8 - 5.0 g/dL 08/12/2023 12:10 PM EST [facility] AST 13 10 - 35 U/L 08/12/2023 12:10 PM EST [facility] Alkaline Phosphatase 64 35 - 130 U/L 08/12/2023 12:10 PM EST [facility] ALT 11 10 - 35 U/L 08/12/2023 12:10 PM EST [facility] Bilirubin, Total 0.2 <=1.2 mg/dL 08/12/2023 12:10 PM EST [facility] Bilirubin, Direct <0.2 0.0 - 0.3 mg/dL 08/12/2023 12:10 PM EST [facility] Protein 6.0 6.0 - 8.3 g/dL 08/12/2023 12:10 PM EST [facility] Blood Blood sample taken from central line / Unknown Central Line / Unknown 08/12/2023 11:21 AM EST 08/12/2023 11:32 AM EST Vikram Toney MD LAB BLOOD ORDERABLES Performing Organization Address [facility]/ZIP Co de Phone Number [facility] [address] [place] [address] * MAGNESIUM (08/11/2023 10:25 AM EST) Magnesium 2.2 1.5 - 2.6 mg/dL 08/11/2023 11:07 AM EST LABORATORY [facility] [place] Blood Blood sample taken from central line / Unknown Venipuncture / Unknown 08/11/2023 10:25 AM EST 08/11/2023 10:42 AM EST Vikram Toney MD LAB BLOOD ORDERABLES Performing Organization Address [facility] Co de Phone Number LABORATORY [facility] [place] [address] [place] [address] * PHOSPHORUS (08/11/2023 10:25 AM EST) Phosphorus 2.9 2.5 - 4.8 mg/dL 08/11/2023 11:07 AM EST LABORATORY [facility] [place] Blood Blood sample taken from central line / Unknown Venipuncture / Unknown 08/11/2023 10:25 AM EST 08/11/2023 10:42 AM EST Vikram Toney MD LAB BLOOD ORDERABLES Performing Organization Address [facility] de Phone Number LABORATORY [facility] [place] [address] [place] [address] * (ABNORMAL) COMPREHENSIVE METABOLIC PANEL (08/11/2023 10:25 AM EST) BUN 6 6 - 20 mg/dL 08/11/2023 11:07 AM EST LABORATORY [facility] Creatinine 0.6 0.5 - 1.0 mg/dL 08/11/2023 11:07 AM EST [facility] Estimated Glomerular Filtration Rate >90 >=60 mL/min 08/11/2023 11:07 AM EST [facility] Comment:eGFR is calculated b ased on the CKD-EPI 2020 equation Sodium 137 135 - 146 mmol/L 08/11/2023 11:07 AM EST [facility] Potassium 3.4(L) 3.5 - 5.1 mmol/L 08/11/2023 11:07 AM EST [facility] Chloride 103 98 - 107 mmol/L 08/11/2023 11:07 AM EST [facility] CO2 23 22 - 32 mmol/L 08/11/2023 11:07 AM EST [facility] Anion Gap 11 7 - 15 mmol/L 08/11/2023 11:07 AM EST [facility] Glucose 79 70 - 120 mg/dL 08/11/2023 11:07 AM EST [facility] Albumin 3.6(L) 3.8 - 5.0 g/dL 08/11/2023 11:07 AM EST [facility] AST 14 10 - 35 U/L 08/11/2023 11:07 AM EST [facility] Alkaline Phosphatase 64 35 - 130 U/L 08/11/2023 11:07 AM EST [facility] Bilirubin, Total 0.4 <=1.2 mg/dL 08/11/2023 11:07 AM EST [facility] Calcium 8.2(L) 8.4 - 10.2 mg/dL 08/11/2023 11:07 AM EST [facility] Protein 6.0 6.0 - 8.3 g/dL 08/11/2023 11:07 AM EST [facility] ALT 11 10 - 35 U/L 08/11/2023 11:07 AM EST [facility] Blood Blood sample taken from central line / Unknown Venipuncture / Unknown 08/11/2023 10:25 AM EST 08/11/2023 10:42 AM EST Vikram Toney MD LAB BLOOD ORDERABLES LABORATORY [facility] [place] [address] [place] [address] * (ABNORMAL) CBC (08/11/2023 10:25 AM EST) WBC 5.63 4.00 - 10.80 K/uL 08/11/2023 10:55 AM EST [facility] RBC 3.79 3.85 - 5.15 M/uL 08/11/2023 10:55 AM EST [facility] HGB 11.5(L) 12.0 - 15.3 g/dL 08/11/2023 10:55 AM EST [facility] HCT 32.0(L) 36.0 - 45.2 % 08/11/2023 10:55 AM EST LABORATORY [facility] MCV 84.4 81.5 - 97.5 fL 08/11/2023 10:55 AM EST [facility] MCH 30.3 27.0 - 34.0 pg 08/11/2023 10:55 AM EST LABORATORY [facility] [place] MCHC 35.9 32.0 - 36.0 g/dL 08/11/2023 10:55 AM EST LABORATORY [facility] [place] RDW 12.7 11.5 - 15.5 % 08/11/2023 10:55 AM EST LABORATORY [facility] [place] PLT 225 140 - 400 K/uL 08/11/2023 10:55 AM EST LABORATORY [facility] [place] MPV 10.2 6.6 - 11.1 fL 08/11/2023 10:55 AM EST LABORATORY [facility] [place] nRBCs 0 <=0 /100 WBCs 08/11/2023 10:55 AM EST LABORATORY [facility] [place] Blood Blood sample taken from central line / Unknown Venipuncture / Unknown 08/11/2023 10:25 AM EST 08/11/2023 10:42 AM EST Vikram Toney MD LAB BLOOD ORDERABLES LABORATORY [facility] [place] [address] [place] [address] * CT ABD/PELVIS W IV CONTRAST - WO ORAL CONTRAST (08/09/2023 7:06 PM EST) Anatomical Region Laterality Modality Body, Abdomen, Pelvis Computed T omography 08/09/2023 9:49 PM EST Impressions 08/09/2023 9:47 PM EST IMPRESSION Jejunostomy terminates in the right upper quadrant. No findings to suggest malpositioning. Narrative 08/09/2023 9:47 PM EST EXAM EXAM: CT ABD/PELVIS W IV CONTRAST - WO ORAL CONTRAST DATE and TIME: 08/09/2023 7:06 pm HISTORY abdominal pain TECHNIQUE Axial images of the abdomen and pelvis were obtained. Sagittal and coronal images were reconstructed from the axial data. Oral Contrast: Not administered. IV Contrast: Administered. COMPARISON Fluoroscopy procedure 08/09/2023; CT 08/07/2023 FINDINGS Lower chest: Lung bases are unremarkable. Lines and devices: Jejunostomy tube. Liver: Unremarkable. Gallbladder: Unremarkable. Bile ducts: Unremarkable. Pancreas: Unremarkable. Spleen: Unremarkable. Adrenals: Unremarkable. Kidneys/Ureters: Unremarkable. Bladder: Unremarkable. Reproductive organs: Hysterectomy. 3.1 left adnexal cyst. Peritoneum/Retroperitoneum: Small pelvic ascites. No pneumoperitoneum. Bowel: Jejunostomy tube terminates in the right upper quadrant, jejunum is underdistended limiting evaluation for exact location. Tube appears to be intraluminal. No extraluminal contrast, significant mesenteric hematoma or free air to suggest malpositioning.Contrast within the distal small bowel and colon from prior administration. No bowel obstruction. Lymph nodes: No lymphadenopathy. Vessels: Unremarkable. Abdominal Wall/Soft Tissues: Postsurgical changes of the anterior abdominal wall. Postprocedure changes in the left mid abdomen from recent tube insertion. Bones: Unremarkable. Procedure Note Tai Gates MD - 08/09/2023 EXAM EXAM: CT ABD/PELVIS W IV CONTRAST - WO ORAL CONTRAST DATE and TIME: 08/09/2023 7:06 pm HISTORY abdominal pain TECHNIQUE Axial images of the abdomen and pelvis were obtained. Sagittal and coronalimages were reconstructed from the axial data. Oral Contrast: Not administered. IV Contrast: Administered. COMPARISON Fluoroscopy procedure 08/09/2023; CT 08/07/2023 FINDINGS Lower chest: Lung bases are unremarkable. Lines and devices: Jejunostomy tube. Liver: Unremarkable. Gallbladder: Unremarkable. Bile ducts: Unremarkable. Pancreas: Unremarkable. Spleen: Unremarkable. Adrenals: Unremarkable. Kidneys/Ureters: Unremarkable. Bladder: Unremarkable. Reproductive organs: Hysterectomy. 3.1 left adnexal cyst. Peritoneum/Retroperitoneum: Small pelvic ascites. No pneumoperitoneum. Bowel: Jejunostomy tube terminates in the right upper quadrant, jejunum isunderdistended limiting evaluation for exact location. Tube appears to beintraluminal. No extraluminal contrast, significant mesenteric hematomaor free air to suggest malpositioning.Contrast within the distal smallbowel and colon from prior administration. No bowel obstruction. Lymph nodes: No lymphadenopathy. Vessels: Unremarkable. Abdominal Wall/Soft Tissues: Postsurgical changes of the anteriorabdominal wall. Postprocedure changes in the left mid abdomen from recenttube insertion. Bones: Unremarkable. IMPRESSION IMPRESSION Jejunostomy terminates in the right upper quadrant. No findings tosuggest malpositioning. sIi Renteria MD RAD CT * IR GASTROINTESTINAL OSTOMY (08/09/2023 1:31 PM EST) Anatomical Region Laterality Modality Any X-Ray Angiograph y 08/11/2023 2:24 PM EST Impressions 08/11/2023 2:21 PM EST IMPRESSION: Jejunostomy catheter salvage in replacement. Due to patient discomfort a 12 Israeli MPD catheter was placed to keep tract open. The patient will return to interventional radiology under general anesthesia for replacement of an 18 Israeli jejunostomy tube. PLAN: Flush tube with 20-30 mL of water before and after each feeding and each medication. Medications should be in liquid form if possible and if not available in liquid form they should be finely crushed, mixed in warm water and administered individually. Routine maintenance change by IR in 6 months. Narrative 08/11/2023 2:21 PM EST PROCEDURE: Jejunostomy catheter check and exchange. INDICATION: 22-year-old female with gastroparesis and GERD with esophagitis Patient presents because of a malfunctioning catheter requiring check and exchange. ATTENDING (OPERATING PHYSICIAN): Yariel Alvarado MD SCRUBBED RESIDENT (OPERATING PHYSICIAN): None SUPPORTING PROVIDER (COMPUTER PUBLISHER): None. CONSENT: After a detailed discussion of the procedure, risks, benefits and alternative treatment options, informed consent was obtained. TIME OUT: A time out procedure was performed. The patient's identification was verified. Informed consent with agreement of procedure, site and position was obtained. All necessary equipment was available prior to procedure. CONTRAST: IV Optiray 320 COMPLICATIONS: None. ANESTHESIA: Pt did receive conscious sedation for their procedure, and was sedated from 1:03 PM to 1:40 PM. Qualified nurse sedation observer Kaitlin Guerin RN. SEDATION TIME: N/A MEDICATIONS: See MAR PROCEDURE DESCRIPTION: The existing jejunostomy tube was totally dislodged. A Kumpe catheter which was used to traverse the tract into the jejunum. Attempt was made to replace the 18 Israeli feeding tube however due to patient discomfort a 12 Israeli multipurpose pigtail drainage catheter was placed in-situ. The tube was sutured in place. Contrast injection demonstrates the catheter is in a good position. I personally performed the procedure. FINDINGS: Original jejunostomy catheter with dislodged.Newly exchanged jejunostomy catheter in good position. Procedure Note Yariel Alvarado MD - 08/11/2023 PROCEDURE: Jejunostomy catheter check and exchange. INDICATION: 22-year-old female with gastroparesis and GERD withesophagitis Patient presents because of a malfunctioning catheterrequiring check and exchange. ATTENDING (OPERATING PHYSICIAN): Yariel Alvarado MD SCRUBBED RESIDENT (OPERATING PHYSICIAN): None SUPPORTING PROVIDER (COMPUTER PUBLISHER): None. CONSENT: After a detailed discussion of the procedure, risks, benefits andalternative treatment options, informed consent was obtained. TIME OUT: A time out procedure was performed. The patient's identificationwas verified. Informed consent with agreement of procedure, site andposition was obtained. All necessary equipment was available prior toprocedure. CONTRAST: IV Optiray 320 COMPLICATIONS: None. ANESTHESIA: Pt did receive conscious sedation for their procedure, and wassedated from 1:03 PM to 1:40 PM. Qualified nurse sedation observerKaitlin Guerin RN. SEDATION TIME: N/A MEDICATIONS: See MAR PROCEDURE DESCRIPTION: The existing jejunostomy tube was totally dislodged. A Kumpe catheterwhich was used to traverse the tract into the jejunum. Attempt was madeto replace the 18 Israeli feeding tube however due to patient discomfort a12 Israeli multipurpose pigtail drainage catheter was placed in-situ. Thetube was sutured in place. Contrast injection demonstrates the catheteris in a good position. I personally performed the procedure. FINDINGS: Original jejunostomy catheter with dislodged.Newly exchanged jejunostomycatheter in good position. IMPRESSION IMPRESSION: Jejunostomy catheter salvage in replacement. Due to patient discomfort a12 Israeli MPD catheter was placed to keep tract open. The patient willreturn to interventional radiology under general anesthesia forreplacement of an 18 Israeli jejunostomy tube. PLAN: Flush tube with 20-30 mL of water before and after each feeding andeach medication. Medications should be in liquid form if possible and ifnot available in liquid form they should be finely crushed, mixed in warmwater and administered individually. Routine maintenance change by IR in 6months. Felicita FINCH RAD SPECIAL PROCEDURES * (ABNORMAL) CBC (08/09/2023 6:32 AM EST) WBC 5.73 4.00 - 10.80 K/uL 08/09/2023 6:53 AM EST [facility] RBC 4.21 3.85 - 5.15 M/uL 08/09/2023 6:53 AM EST [facility] HGB 13.0 12.0 - 15.3 g/dL 08/09/2023 6:53 AM EST [facility] HCT 35.6(L) 36.0 - 45.2 % 08/09/2023 6:53 AM EST [facility] MCV 84.6 81.5 - 97.5 fL 08/09/2023 6:53 AM EST [facility] MCH 30.9 27.0 - 34.0 pg 08/09/2023 6:53 AM EST [facility] MCHC 36.5 32.0 - 36.0 g/dL 08/09/2023 6:53 AM EST [facility] RDW 12.6 11.5 - 15.5 % 08/09/2023 6:53 AM EST [facility] PLT 222 140 - 400 K/uL 08/09/2023 6:53 AM EST [facility] MPV 10.5 6.6 - 11.1 fL 08/09/2023 6:53 AM EST [facility] nRBCs 1(H) <=0 /100 WBCs 08/09/2023 6:53 AM EST [facility] Blood Venous blood specimen / Unknown Venipuncture / Unknown 08/09/2023 6:32 AM EST 08/09/2023 6:41 AM EST Felicita [facility] LAB BLOOD O RDERABLES [facility] [place] [address] [place] [address] * (ABNORMAL) BASIC METABOLIC PANEL (08/09/2023 6:32 AM EST) BUN 5(L) 6 - 20 mg/dL 08/09/2023 7:04 AM EST [facility] Creatinine 0.7 0.5 - 1.0 mg/dL 08/09/2023 7:04 AM EST [facility] Estimated Glomerular Filtration Rate >90 >=60 mL/min 08/09/2023 7:04 AM EST [facility] Comment:eGFR is calculated b ased on the CKD-EPI 2020 equation Sodium 140 135 - 146 mmol/L 08/09/2023 7:04 AM EST [facility] Potassium 4.4 3.5 - 5.1 mmol/L 08/09/2023 7:04 AM EST [facility] Chloride 107 98 - 107 mmol/L 08/09/2023 7:04 AM EST [facility] CO2 21(L) 22 - 32 mmol/L 08/09/2023 7:04 AM EST [facility] Anion Gap 12 7 - 15 mmol/L 08/09/2023 7:04 AM EST [facility] Glucose 83 70 - 120 mg/dL 08/09/2023 7:04 AM EST [facility] Calcium 8.8 8.4 - 10.2 mg/dL 08/09/2023 7:04 AM EST [facility] Blood Venous blood specimen / Unknown Venipuncture / Unknown 08/09/2023 6:32 AM EST 08/09/2023 6:41 AM EST Felicita [facility] LAB BLOOD O RDERABLES Performing Organization Address City/State/[facility] Co de Phone Number LAB[facility]ATORY [facility] [place] [address] [place] [address] * SARS-COV-2 (COVID-19), NAAT (08/08/2023 11:08 PM EST) SARS-CoV-2 (COVID-19) Result Negative Negative 08/09/2023 12:49 AM EST [facility] Comment: 2019 Novel Coronavirus not detected. This express test was developed and its performance characteristics determined by [employer]. It has not been cleared or approved [...] was developed and performance characteristics determined by [employer]. The validation of alternate specimen types has not been cleared or approved by the U.S. Food and Drug Administration (FDA). It has been determined that such clearance is not necessary. Upper Respiratory Mid-turbinate nasal swab / Unknown 08/08/2023 11:08 PM EST 08/08/2023 11:23 PM EST Felicita [facility] LAB MICRO - GENERAL ORDERABLES Performing Organization Address [facility] Co de Phone Number [facility]AT[facility] [place] [address] [place] [address] * MRSA SCREEN, PCR (08/08/2023 11:08 PM EST) [facility] Signature MRSA PCR Result Negative Negative 12:50 AM EST [facility] [place] Comment:No Methicillin resis tant Staphylococcus aureus detected by PCR (amplified probe). Upper Respiratory Swab of internal nose / Unknown 08/08/2023 11:08 PM EST 08/08/2023 11:23 PM EST Felicita FINCH LAB MICRO - GENERAL ORDERABLES Performing Organization Address [facility] Co de Phone Number LAB[facility]ATORY [facility] [place] [address] [place] [address] documented in this encounter Visit Diagnoses Diagnosis Malfunction of jejunostomy tube (HCC)- Primary Mechanical complication of colostomy and enterostomy Malfunction of jejunostomy tube (HCC) Mechanical complication of colostomy and enterostomy Chest pain Chest pain, unspecified Chronic pelvic pain in female Unspecified symptom associated with female genital organs Gastroparesis Gastroesophageal reflux disease with esophagitis without hemorrhage [K21.00] Gastroesophageal reflux disease with esophagitis without hemorrhage Gastroparesis Endometriosis Endometriosis, site unspecified documented in this encounter Administered Medications Inactive Administered Medications - up to 3 most recent administrations Medication Order MAR Action Action Date Dose Rate Site Acetaminophen (Tylenol) tab 975 mg 975 mg, J Tube, Q8H, First dose on Wed08/10/23 at 1900, Until Discontinued, Maximum of 4 grams (4000 mg) per day. Given 08/12/2023 1:32 PM EST 975 mg Given 08/12/2023 5:03 AM EST 975 mg Given 08/11/2023 10:53 PM EST 975 mg buffered lidocaine 1 % inj Intradermal, ONCE PRN INTRA PROCEDURE, Starting on Wed08/09/23 at 1331, Until Wed08/09/23 at 1331, Intra-Op Given 08/09/2023 1:31 PM EST 10 mL diphenhydrAMINE (Benadryl) inj ONCE PRN INTRA PROCEDURE, Starting on Wed08/09/23 at 1323, Until Wed08/09/23 at 1323, Intra-Op Given 08/09/2023 1:23 PM EST 50 mg feed tube water flush 30 mL 30 mL, J Tube, Q4H, First dose on Wed08/11/23 at 1600, Until Discontinued Given 08/12/2023 12:00 PM EST 30 mL Given 08/12/2023 8:00 AM EST 30 mL Given 08/12/2023 4:00 AM EST 30 mL fentaNYL (PF) inj 25 mcg 25 mcg, IV Push, ONCE, On Wed08/09/23 at 1430, For 1 dose, When given IV Push its recommended that the dose be given over 3 to 5 minutes. Given 08/09/2023 1:52 PM EST 25 mcg fentaNYL (PF) inj ONCE PRN INTRA PROCEDURE, Starting on Wed08/09/23 at 1303, Until Wed08/09/23 at 1325, Intra-Op Given 08/09/2023 1:25 PM EST 25 mcg Given 08/09/2023 1:22 PM EST 50 mcg Given 08/09/2023 1:15 PM EST 50 mcg High calorie peptide-based (Peptamen 1.5) liquid 80 mL/hr, Administer over 12 Hours, Tube feed, CONTINUOUS, Starting on Wed08/11/23 at 1200, Until Wed08/11/23 at 1403 New Bag 08/11/2023 12:48 PM EST 40 mL/hr 40 m L/hr High calorie peptide-based (Peptamen 1.5) liquid 40 mL/hr, Administer over 12 Hours, Tube feed, CONTINUOUS, Starting on Wed08/11/23 at 1445, Until [place] 08/12/23 at 2005 New Bag 08/12/2023 6:35 AM EST 40 mL/hr 40 mL /hr New Bag 08/12/2023 12:08 AM EST 40 mL/hr 40 mL/hr New Bag 08/11/2023 7:29 PM EST 40 mL/hr 40 mL/hr HYDROmorphone (Dilaudid) inj 0.5 mg 0.5 mg, IV Push, Q4H PRN Pain, Severe, Starting on 08/08/23 at 2027, Until Wed08/08/23 at 204, For 1 dose Given 08/08/2023 8:47 PM EST 0.5 mg HYDROmorphone (Dilaudid) inj 0.5 mg 0.5 mg, IV Push, Q4H PRN Pain, Severe, Starting on 08/08/23 at 2340, Until Wed08/09/23 at 1012, For 3 doses Given 08/09/2023 10:12 AM EST 0.5 mg Given 08/09/2023 6:13 AM EST 0.5 mg Given 08/09/2023 12:19 AM EST 0.5 mg HYDROmorphone (Dilaudid) inj 0.5 mg 0.5 mg, IV Push, Q6H PRN Pain, Severe, Starting on Wed08/09/23 at 1451, Until Wed08/09/23 at 1523 Given 08/09/2023 3:13 PM EST 0.5 mg HYDROmorphone (Dilaudid) inj 0.5 mg 0.5 mg, IV Push, ONCE, On Wed08/09/23 at 1600, For 1 dose Given 08/09/2023 3:48 PM EST 0.5 mg HYDROmorphone (Dilaudid) inj 1 mg 1 mg, IV Push, Q6H PRN Pain, Severe, Starting on Wed08/09/23 at 1523, Until [place] 08/12/23 at 0744 Given 08/12/2023 6:35 AM EST 1 mg Given 08/12/2023 12:08 AM EST 1 mg Given 08/11/2023 5:31 PM EST 1 mg HYDROmorphone (Dilaudid) inj 1 mg 1 mg, IV Push, ONCE PRN Pain, Severe, Starting on Wed08/10/23 at 1233, Until Wed08/10/23 at 1257, For 1 dose Given 08/10/2023 12:57 PM EST 1 mg HYDROmorphone (Dilaudid) inj ONCE PRN INTRA PROCEDURE, Starting on Wed08/09/23 at 1309, Until Wed08/09/23 at 1318, Intra-Op Given 08/09/2023 1:18 PM EST 1 mg Given 08/09/2023 1:09 PM EST 1 mg Ioversol (Optiray 320) inj 100 mL 100 mL, Intravenous, ONCE, On Wed08/09/23 at 1945, For 1 dose, Radiology Medication Routing (Non-IR) Given 08/09/2023 7:45 PM EST 100 mL Ioversol (Optiray 320) inj 50 mL 50 mL, Intravenous, ONCE, On Wed08/09/23 at 1415, For 1 dose Given 08/09/2023 2:15 PM EST 20 mL Ioversol (Optiray 350) 74 % inj 50 mL 50 mL, Intravenous, ONCE, On Wed08/10/23 at 1015, For 1 dose, Intra-Op Given 08/10/2023 9:15 AM EST 15 mL isolyte-S pH 7.4 infusion Intravenous, at 75 mL/hr, Plasma-LYTE 148, isolyte-S, and isolyte-S pH 7.4 are considered equivalent - including for MAR barcode scanning., CONTINUOUS, Starting on Wed08/08/23 at 1900, Until Wed08/11/23 at 1539 Restarted 08/11/2023 11:16 AM EST 75 m L/hr New Bag 08/11/2023 10:55 AM EST 75 mL/hr Restarted 08/11/2023 10:42 AM EST 75 mL/hr Lidocaine urethral/mucosal 2 % gel ONCE PRN INTRA PROCEDURE, Starting on Wed08/09/23 at 1331, Until Wed08/09/23 at 1331, Intra-Op Given 08/09/2023 1:31 PM EST 1 mL midazolam (Versed) 2 MG/2ML inj ONCE PRN INTRA PROCEDURE, Starting on Wed08/09/23 at 1303, Until Wed08/09/23 at 1326, Intra-Op Given 08/09/2023 1:26 PM EST 1 mg Given 08/09/2023 1:15 PM EST 2 mg Given 08/09/2023 1:03 PM EST 2 mg morphine sulfate inj 4 mg 4 mg, IV Push, Q6H PRN Pain, Severe, Starting on Wed08/08/23 at 1818, Until Wed08/08/23 at 2026 Given 08/08/2023 6:35 PM EST 4 mg ondansetron (Zofran) inj 4 mg 4 mg, IV Push, Q6H PRN Nausea, Vomiting, Starting on Wed08/08/23 at 1818, Until Wed08/12/23 at 2004 Given 08/11/2023 11:12 AM EST 4 mg Given 08/10/2023 4:14 PM EST 4 mg Given 08/09/2023 7:40 PM EST 4 mg oxyCODONE (Oxy IR) tab 10 mg 10 mg, J Tube, Q6H PRN Pain, Moderate, Starting on Wed08/10/23 at 1822, Until Wed08/12/23 at 1004 Given 08/12/2023 8:56 AM EST 10 mg Given 08/12/2023 2:31 AM EST 10 mg Given 08/11/2023 8:22 PM EST 10 mg oxyCODONE (Oxy IR) tab 10 mg 10 mg, J Tube, Q6H PRN Pain, Severe, Starting on Wed08/12/23 at 1004, Until [place] 08/12/23 at 2004 Given 08/12/2023 2:45 PM EST 10 mg oxyCODONE (Oxy IR) tab 5 mg 5 mg, J Tube, Q6H PRN Pain, Moderate, Starting on Wed08/12/23 at 1004, Until Wed08/12/23 at 2004 potassium CHLORide liquid 40 mEq 40 mEq, J Tube, ONCE, On Wed08/11/23 at 1200, For 1 dose, To avoid GI irritation, must further diilute 15 ml in 3 ounces H2O or other fluid Given 08/11/2023 12:32 PM EST 40 mEq sodium chloride 0.9 % flush central line 10 mL 10 mL, IV Push, Q8H, First dose on Wed08/08/23 at 2200, Until Discontinued, TO UNUSED PORTS Do not flush if lock, PICC, or central line not in place; IV infusing or unable to flush. Given 08/12/2023 2:00 PM EST 10 mL Given 08/12/2023 5:03 AM EST 10 mL Given 08/11/2023 10:53 PM EST 10 mL documented in this encounter Active and Recently Administered Medications Times are shown in EST. Scheduled Medication Order 08/10/2023 08/11/2023 08/12/2023 Acetaminophen (Tylenol) tab 975 mg 975 mg, J Tube, Q8H, First dose on Wed08/10/23 at 1900, Until Discontinued, Maximum of 4 grams (4000 mg) per day. 1831 (Given - Provider: Alicia Elmore LPN) 0643 (Given - Provider: Corey Ordonez RN)1519 (Given - Provider: Alicia Elmore LPN)2253 (Given - Provider: Olamide Johnson RN) 0503 (Given - Provider: Olamide Johnson RN)1332 (Given - Provider: Kaitlin Alexander, LUPIS) feed tube water flush 30 mL 30 mL, J Tube, Q4H, First dose on Wed08/11/23 at 1600, Until Discontinued 1600 (Given - Provider: Alicia Elmore LPN)2000 (Given - Provider: Olamide Johnson RN) 0000 (Given - Provider: Olamide Johnson RN)0400 (Given - Provider: Olamide Johnson, LUPIS)0800 (Given - Provider: Kaitlin Alexander, LUPIS)1200 (Given - Provider: Kaitlin Alexander RN)1600 (Due) Ioversol (Optiray 350) 74 % inj 50 mL (COMPLETED) 50 mL, Intravenous, ONCE, On Wed08/10/23 at 1015, For 1 dose, Intra-Op 0915 (Given - Provider: Carlos Valdez, RT - Comment: injected through j tube) potassium CHLORide liquid 40 mEq (COMPLETED) 40 mEq, J Tube, ONCE, On Wed08/11/23 at 1200, For 1 dose, To avoid GI irritation, must further diilute 15 ml in 3 ounces H2O or other fluid 1232 (Given - Provider: Alicia Elmore LPN) sodium chloride 0.9 % flush central line 10 mL 10 mL, IV Push, Q8H, First dose on Wed08/08/23 at 2200, Until Discontinued, TO UNUSED PORTS Do not flush if lock, PICC, or central line not in place; IV infusing or unable to flush. 0600 (Not Given - Provider: Corey Ordonez RN - Reason: Parameter(s) Not Met - Comment: iv fluids progressing)1400 (Given - Provider: Alicia Elmore LPN)2200 (Not Given - Provider: Corey Ordonez RN - Reason: Parameter(s) Not Met - Comment: iv fluids progressing) 0600 (Given - Provider: Hanh Hays, LUPIS)1400 (Given - Provider: Alicia Elmore LPN)2253 (Given - Provider: Olamide Johnson, LUPIS) 0503 (Given - Provider: Olamide Johnson, LUPIS)1400 (Given - Provider: Kaitlin Alexander, LUPIS) Continuous Medication Order 08/10/2023 08/11/2023 08/12/2023 High calorie peptide-based (Peptamen 1.5) liquid (CANCELED) 80 mL/hr, Administer over 12 Hours, Tube feed, CONTINUOUS, Starting on Wed08/11/23 at 1200, Until Wed08/11/23 at 1403 1248 (New Bag - Provider: Alicia Elmore LPN - Comment: per pt request provider made aware of pts rate change request of 40/hr.Vikram Toney, made aware) High calorie peptide-based (Peptamen 1.5) liquid 40 mL/hr, Administer over 12 Hours, Tube feed, CONTINUOUS, Starting on Wed08/11/23 at 1445, Until [place] 08/12/23 at 2005 1445 (Rate Change - Provider: Alicia Samm Shuck, HEADING MAKER)1929 (New Bag - Provider: Alicia Elmore, HEADING MAKER) 0008 (New Bag - Provider: Olamide Johnson, RN)0635 (New Bag - Provider: Olamide Johnson, LUPIS) isolyte-S pH 7.4 infusion (CANCELED) Intravenous, at 75 mL/hr, Plasma-LYTE 148, isolyte-S, and isolyte-S pH 7.4 are considered equivalent - including for MAR barcode scanning., CONTINUOUS, Starting on Wed08/08/23 at 1900, Until Wed08/11/23 at 1539 0150 (New Bag - Provider: Corey Ordonez RN)0723 (Associate Infusion Pump - Provider: Alicia Elmore, HEADING MAKER)0831 (Paused - Provider: Alicia Elmore, HEADING MAKER)0859 (Restarted - Provider: Robin Simmons CRNA)0932 (Paused - Provider: Robin Simmons CRNA - Comment: Switch to gravity)0933 (Restarted - Provider: Robin Simmons CRNA)1104 (Rate Change - Provider: Alicia Elmore, HEADING MAKER)1116 (Associate Infusion Pump - Provider: Alicia Elmore, HEADING MAKER)1801 (Rate Change - Provider: Aliciakailey Elmore, HEADING MAKER)1814 (Stopped - Provider: Aliciakailey Elmore, HEADING MAKER)1815 (New Bag - Provider: Aliciakailey Elmore, HEADING MAKER)1842 (Rate Verify - Provider: Aliciakailey Elmore, HEADING MAKER)1924 (Nurse Change - Provider: Corey Ordonez RN) 0639 (Rate Verify - Provider: Corey Ordonez RN)0646 (New Bag - Provider: Corey Ordonez RN)1018 (Paused - Provider: Alicia Elmore, HEADING MAKER)1021 (Restarted - Provider: Aliciakailey Elmore, HEADING MAKER)1031 (Paused - Provider: Aliciakailey Elmore, HEADING MAKER)1042 (Restarted - Provider: Aliciakailey Elmore, HEADING MAKER)1045 (Stopped - Provider: Aliciakailey Elmore, HEADING MAKER)1055 (New Bag - Provider: Alicia Elmore LPN)1113 (Paused - Provider: Alicia Elmore LPN)1116 (Restarted - Provider: Alicia Elmore LPN)1602 (Stopped - Provider: Alicia Elmore LPN) PRN Medication Order 08/10/2023 08/11/2023 08/12/2023 HYDROmorphone (Dilaudid) inj 1 mg (CANCELED) 1 mg, IV Push, Q6H PRN Pain, Severe, Starting on Wed08/09/23 at 1523, Until Wed08/12/23 at 0744 0420 (Given - Provider: Corey Ordonez RN)1020 (Given - Provider: Melody Garcia RN)1616 (Given - Provider: Marla Sykes, LUPIS)2216 (Given - Provider: Hnah Hays RN) 0519 (Given - Provider: Hanh Hays RN)1111 (Given - Provider: Sweta Mclaughlin, LUPIS)1731 (Given - Provider: Sweta Mclaughlin, LUPIS) 0008 (Given - Provider: Olamide Johnson, LUPIS)0635 (Given - Provider: Olamide Johnson, LUPIS) HYDROmorphone (Dilaudid) inj 1 mg (COMPLETED) 1 mg, IV Push, ONCE PRN Pain, Severe, Starting on Wed08/10/23 at 1233, Until Wed08/10/23 at 1257, For 1 dose 1257 (Given - Provider: Rosmery Anguiano, LUPIS) ondansetron (Zofran) inj 4 mg 4 mg, IV Push, Q6H PRN Nausea, Vomiting, Starting on Wed08/08/23 at 1818, Until Wed08/12/23 at 2005 1614 (Given - Provider: Marla Sykes RN) 1112 (Given - Provider: Sweta Mclaughlin RN) oxyCODONE (Oxy IR) tab 10 mg (CANCELED) 10 mg, J Tube, Q6H PRN Pain, Moderate, Starting on Wed08/10/23 at 1822, Until [place] 08/12/23 at 1004 1831 (Given - Provider: Alicia Elmore LPN) 0036 (Given - Provider: Corey Ordonez RN)0644 (Given - Provider: Corey Ordonez RN)1519 (Given - Provider: Alicia Elmore LPN)202 (Given - Provider: Olamide Johnson, LUPIS) 0231 (Given - Provider: Olamide Johnson, LUPIS)0856 (Given - Provider: Kaitlin Alexander RN) oxyCODONE (Oxy IR) tab 10 mg 10 mg, J Tube, Q6H PRN Pain, Severe, Starting on [place] 08/12/23 at 1004, Until [place] 08/12/23 at 2004 1445 (Given - Provider: Rosmery Anguiano RN) oxyCODONE (Oxy IR) tab 5 mg 5 mg, J Tube, Q6H PRN Pain, Moderate, Starting on [place] 08/12/23 at 1004, Until [place] 08/12/23 at 2004 sodium chloride 0.9 % flush/inj 3 mL 3 mL, IV Push, PRN Other, Line Patency, Starting on [place] 08/08/23 at 2028, Until [place] 08/12/23 at 2004, Do not flush if lock, PICC, or [...] the patient have Health Care Power of Industry Operations Investigator? No Care Teams Restorative Care Technician Relationship Specialty Start Date End Date Kinjal Reynoso PA-C [address] [id number] PCP - General Physician Lead Former 11/05/22 documented as of this encounter
--- OUTSIDE RECORDS SUMMARY | 2024-01-01 09:20 | External Medical Summary ---
Author Name Unknown Address Unknown Organization K01:[facility] [place] - [address] [facility] [address] Laboratory Report Ordering Provider Test Date Status KESHAV MITCHELL 08/08/2023 23:08:00 Final SCREENING Observation Date Value Abnormality Reference (Units ) Status SARS Coronavirus 2 08/08/2023 23:08:00 Negative N egative Final 2019 Novel Coronavirus not d etected.

This express test was developed and its performance characteristics determined by [employer]. It has not been cleared or approved [...] was developed and performance characteristics determined by [employer]. The validation of alternate specimen types has not been cleared or approved by the U.S. Food and Drug Administration (FDA). It has been determined that such clearance is not necessary. Performing Location [facility] [place] - [address] [facility] [address]
--- OUTSIDE RECORDS SUMMARY | 2024-01-01 09:20 | External Medical Summary | Summary of Care ---
Author Name Unknown Organization [facility] Address [address] [place] [address] Phone [phone] Care Team Providers Care Business Associate Name Role Phone Edgardo Kinjal Britt PA-C Primary Care Provider [phone] Reason for Visit * Reason Comments Abdominal Pain * Auth/Cert Specialty Diagnoses / Procedures Referred By Carmen t Referred To Contact Referral ID Status Reason Start Date Expiration Date Visits Re quested Visits Authorized [id number] Encounter Details Date Type Department Care Team (Late st Contact Info) Description 08/07/2023 11:40 AM EST - 08/07/2023 4:13 PM EST Emergency [facility] Emergency Department ([facility]) [address] [place] [address] Néstor Mcnamara MD [address] [place] [address] Jejunostomy tube site pain (HCC) (Primary Dx); Dislodged jejunostomy tube Discharge Disposition: Home - Self Care Allergies [...] as of this encounter (statuses as of 08/08/2023) Medications Medication Sig Dispensed Refills Start Date End Date Status Naloxone HCl 4 MG/0.1ML Nasal Liquid (Narcan Nasal)Indications:C hronic pelvic pain in female,MEDICATION USE AGREEMENT,Chronic abdominal pain ADMINISTER 1 SPRAY INTO 1 NOSTRIL FOR SUSPECTED OPIOID OVERDOSE - SEEK IMMEDIATE MEDICAL ATTENTION. [email or web address] Each 3 03/31/2023 Active Peptamen 1.5 Oral Liquid Administer 1000 mL daily, as directed through J Tube via feeding pump 73900 mL 11 04/12/2023 Active Lansoprazole 15 MG [...] Pain, Moderate. 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 70 Tablet 0 07/27/2023 Active documented as of this encounter (statuses as of 08/08/2023) Active Problems Problem Noted Date Diagnosed Date [...] as of this encounter (statuses as of 08/08/2023) Resolved Problems Problem Noted Date Diagnosed Date [...] as of this encounter (statuses as of 08/08/2023) Immunizations Name Administration Dates Next Due DTaP [...] Sign Reading Time Taken Comments Blood Pressure 128/87 08/07/2023 4:00 PM EST Pulse 87 08/07/2023 4:00 PM EST Temperature 36.7 C (98.1 F) 08/07/2023 11:[address] Respiratory Rate 20 08/07/2023 4:00 PM EST Oxygen Saturation 100% 08/07/2023 11:37 AM EST Inhaled Oxygen Concentration - - Weight 75 kg (165 lb 6.4 oz) 08/07/2023 11:37 AM EST Height - - Body Mass Index 30.25 07/23/2023 3:39 PM EST documented in this [...] * Discharge Instructions* Néstor Mcnamara MD - 08/07/2023 4:00 PM EST You were seen in the emergency department for pain around your J-tube site, and concern for dislodgement of the tube. It does appear that the tube is dislodged from your jejunum, and resides in your abdominal wall. You will need to follow- up with your general surgeon as an outpatient. They were contacted, and should schedule follow up appointment this week, but if you do not hear from them by Wednesday evening, you should call their office and try to schedule an earlier appointment to be seen. Please do not use the tube until you follow-up with them. Continue your oral hydration and oral intake as you have been over the last week. If any symptoms change or worsen return to the ER for evaluation. Follow up with family physician as an outpatient. documented in this encounter ED Notes * Néstor Mcnamara MD - 08/07/2023 11:54 AM EST HISTORY OF PRESENT ILLNESS Anirudh DotyEstelitaLoc is a 22 year old female who presents to the ED for evaluation of Abdominal Pain. The patient was seen at 08/07/23 1153. Patient is a 22-year-old female who presents emergency department complaining of abdominal pain. She is past medical history of gastroparesis with a J-tube in place. Patient states that she was recently in [place], stopped using her J-tube for feeds during that time. She was tolerating oral intake while she was down there. She reports the abdominal pain started over the last 3-4 days, after she noticed that her sutures that were holding her J-tube intact, were dislodged. She has not sure how this happened. The tube also seems to have been pulled out slightly. She has not sure if it is still in place or not. She denies fevers or chills. She states the last time she was the tube was yesterday for medications only. Last feeding she did was on August 01. Her tube was initially placed in February, but it was recently changed in May. She follows with a surgeon in [place] at [facility]. 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 The patient's allergies, past history, and medications were reviewed. PHYSICAL EXAM Initial Vitals (see all): BP 145/92 | Pulse 93 | Resp 20 | Temp 98.1 | O2 100 %, Room Air, None | Weight 75.03 kg | Height 157.5 cm | BMI 30.25 kg/m2 Initial Pain Assessment (see all): 6 (severe pain)/10, location: abd ([facility] Adult Scale 0-10) Physical Exam Vitals and nursing note reviewed. Constitutional: General: She is not in acute distress. Appearance: She is normal weight. She is not ill-appearing. HENT: Head: Normocephalic and atraumatic. Cardiovascular: Rate and Rhythm: Normal rate and regular rhythm. Heart sounds: Normal heart sounds. Pulmonary: Effort: Pulmonary effort is normal. No respiratory distress. Breath sounds: Normal breath sounds. Abdominal: General: Abdomen is flat. A surgical scar is present. There is no distension. Palpations: Abdomen is soft. Tenderness: There is abdominal tenderness in the left lower quadrant. There is guarding. Negative signs include Edwards's sign and McBurney's sign. Comments: Keloid scars noted across patient's abdomen, in particular around the site of her J-tube insertion consistent with suture placement. Skin: General: Skin is warm and dry. Neurological: Mental Status: She is alert and oriented to person, place, and time. Psychiatric: Mood and Affect: Mood normal. Behavior: Behavior normal. PROCEDURES AND TREATMENTS ED Orders | ED Results MEDICAL DECISION MAKING Nursing notes and vital signs were reviewed. ED Course as of 08/07/23 1716 Sat Aug 07, 2023 1153 ED Triage Notes Was in [place] and her stitches came out of her G-Tube while there and she was just taping the g-tube. Now the g-tube is out pretty far and is having pain. Noticed the stitches were out 3-4 days. Pain in left side of abd. [MC] 1153 Temp: 36.7 C (98.1 F) [MC] 1153 SpO2: 100 % [MC] 1153 Resp: 20 [MC] 1153 Pulse: 93 [MC] 1153 BP: 145/92 [MC] 1323 I attempted to push contrast and patient's J-tube, she was able to tolerate only 5 mL before she was in excruciating pain and almost jumping off of the CT scan table. I did not attempt to push more contrast through the tube given the amount of discomfort she was in. [MC] 1400 CT IMPRESSION: 1. Jejunostomy tube tube tip appears to be at the margin of the abdominal wall and peritoneum. It is not clearly inside the jejunal lumen. Recommend clinical correlation. No contrast seen inside bowel loops. 2. Mild wall thickening of jejunal loops near the jejunostomy tube is nonspecific and may be chronic. Overall nonobstructive bowel gas pattern. 3. Ovarian cysts. [MC] 1407 Paged our general surgeon to see if he would be wiling to see the patient and pull her J tube [MC] [address] Yap General Surgery. He does not recommend pulling her J tube here and does not recommend placing a J tube here [facility] last one was placed by her surgeon at [place] on 06/08/2023. This is within the 90 day global coverage by surgeons according to him and he would recommend she be seen for any surgical complications down there. I have placed a call to [facility] to speak with Dr. Osbaldo Knight (patients surgeon) or whoever is expanded function dental assistant. [MC] 1433 Spoke with expanded function dental assistant service, he will reach out to the surgeon expanded function dental assistant and get back to me. [MC] [address] Rahman with [facility] surgery regarding patient. She would like to speak with our general surgeon here regarding this patient. [] ED Course User Index [] Michelle Valverde PA-C I have reviewed the clinical lab, radiology, and other medical tests that were ordered during this encounter (see all). Differential Diagnoses Based on my history, physical exam, and evaluation, the differential includes, but is not limited, to the following diagnoses: abscess, bowel obstruction and Dislodged J-tube, tube obstruction. The recommendations collectively by the [place] surgery team and the local general surgery team was to have patient discharged. She will follow-up with her [place] surgery team. She was advised to not use her tube until she is cleared by her surgeons. She was recommended to call the office on Wednesday. Her general surgeon is scheduled to follow-up with her. Return precautions were provided. Patient was clinically stable for discharge upon reassessment; return precautions were discussed - patient verbalized understanding and was agreeable; all their questions were answered prior to discharge; patient was instructed to return to the ED if they were at all concerned or if they felt their signs/symptoms were worsening Amount and/or Complexity of Data Reviewed Labs: ordered. Radiology: ordered. Risk Prescription drug management. Clinical Impressions Jejunostomy tube site pain (HCC) Dislodged jejunostomy tube Disposition Discharged. The patient's condition at disposition was: stable. Néstor Mcnamara was the attending physician who supervised the care of this patient. Michelle Valverde PA-C ATTENDING ATTESTATION I have discussed the patient's management with the provider listed above and agree with the note, findings, and plan of care. I personally made/approved the management plan and take responsibility for patient management. * Trisha Ramirez RN - 08/07/2023 11:37 AM EST Was in [place] and her stitches came out of her G-Tube while there and she was just taping the g-tube. Now the g-tube is out pretty far and is having pain. Noticed the stitches were out 3-4 days. Pain in left side of abd. documented in this encounter Miscellaneous Notes * ED Assistant Production Manager Note - Bobbi Way RN - 08/07/2023 4:12 PM EST Pt verbalized understanding of d/c instructions. Port de-accessed. Pt ambulated from ED using steady gait * ED Assistant Production Manager Note - Bobbi Way RN - 08/07/2023 2:43 PM EST Pt reporting abd pain and nausea. Provider aware * ED Assistant Production Manager Note - Holland Herring RN - 08/07/2023 12:37 PM EST Pt presents today to the ED for her G tube stiches that came out 3-4 days ago. Pt states around thetube is very tender. Pt states in the morning she notices some drainage. No drainage or redness noted upon assessment. Pt states she has only flushed her tube, has not used it for any feedings in thelast 3-4 days. Pt denies any fever or known chills. Tender to LLQ. VSS. Call lopez within reach. IV team currently accessing port. Per provider - wants CT w/IV contrast and oral contrast through G tube. Per CT - Provider has to push oral contrast through the tube before imaging. Provider aware. documented in this encounter Plan of Treatment Upcoming Encounters Date Type Department Care Team (Late st Contact Info) Description 08/20/2023 1:50 PM EST Telemedicine Nutrition & Weight Management, [facility] [address] [place] [address] Kaity Yap RDN [address] [place] [id number] 09/20/2023 12:40 PM EDT Office Visit Nutrition & Weight Management, [facility] [address] [place] [address] Cee Santizo PA-C [address] [place] [phone] 12/08/2023 5:20 PM EDT Office Visit [facility] Carol Aguilar [address] [phone] Kinjal Reynoso PA-C [address] [id number] Health Maintenance Due Date Last Done Comments [...] this encounter Medical Devices Implanted Type Area Wood Veneer Taper Device Identifier Shelf Expiration Date Model / Serial / Lot Port Implant W/8f Poly Cath - [id number] Implanted:Qty : 1 on 05/18/2023 by Juan Jose Connell DO at OR [facility] Right: Chest CR BARD : PERIPHERAL VASCULAR [id number] 11/18/2024 [id number] / / [id number] documented as of this encounter Procedures Procedure Name Priority Date/Time Associated Diagnosis Comments CT ABD/PELVIS W IV AND W ORAL CONTRAST STAT 08/07/2023 1:22 PM EST DIFFERENTIAL, AUTOMATED STAT 08/07/2023 12:50 PM EST COMPREHENSIVE METABOLIC PANEL STAT 08/07/2023 12:50 PM EST CBC STAT 08/07/2023 12:50 PM EST CBC STAT 08/07/2023 12:50 PM EST documented in this encounter Results * CT ABD/PELVIS W IV AND W ORAL CONTRAST (08/07/2023 1:22 PM EST) Anatomical Region Laterality Modality Body, Abdomen, Pelvis Computed T omography 08/07/2023 1:18 PM EST Addenda Addendum by Nancy Lazo MD on 08/07/2023 2:01 PM EST THIS REPORT CONTAINS FINDINGS THAT MAY BE CRITICAL TO PATIENT CARE. The findings were verbally communicated via telephone conference at 2:01 PM EST on 08/07/2023 with MICHELLE VALVERDE. The findings were acknowledged and understood. THIS DOCUMENT HAS BEEN ELECTRONICALLY SIGNED BY NANCY LAZO MD Impressions 08/07/2023 1:54 PM EST IMPRESSION: 1. Jejunostomy tube tube tip appears to be at the margin of the abdominal wall and peritoneum. It is not clearly inside the jejunal lumen. Recommend clinical correlation. No contrast seen inside bowel loops. 2. Mild wall thickening of jejunal loops near the jejunostomy tube is nonspecific and may be chronic. Overall nonobstructive bowel gas pattern. 3. Ovarian cysts. THIS DOCUMENT HAS BEEN ELECTRONICALLY SIGNED BY NANCY LAZO MD Narrative 08/07/2023 1:54 PM EST PROCEDURE INFORMATION: Exam: CT Abdomen And Pelvis With Contrast Exam date and time: 08/07/2023 1:18 PM Age: 22 years old Clinical indication: Other: Abdominal pain, j tube pulled out, please put some contrast in tube TECHNIQUE: Imaging protocol: Computed tomography of the abdomen and pelvis with contrast. Radiation optimization: All CT scans at this facility use at least one of these dose optimization techniques: automated exposure control; mA and/or kV adjustment per patient size (includes targeted exams where dose is matched to clinical indication); or iterative reconstruction. Contrast material: OPTIRAY 320; Contrast volume: 100 ml; Contrast route: INTRAVENOUS (IV); Other contrast: Oral, omnipaque, 5; COMPARISON: CT ABD/PELVIS W IV CONTRAST - WO ORAL CONTRAST 07/10/2023 3:52 PM FINDINGS: Tubes, catheters and devices: Jejunostomy tube appears to be at the margin is a abdominal wall and peritoneum. It is not definitively intraluminal. Lungs: No acute abnormality. Liver: Normal. No mass. Gallbladder and bile ducts: Normal. No calcified stones. No ductal dilation. Pancreas: Normal. No ductal dilation. Spleen: Normal. No splenomegaly. Adrenal glands: Normal. No mass. Kidneys and ureters: Normal. No hydronephrosis. Stomach and bowel: Mild wall thickening of small bowel loops in left upper quadrant near the J tube tip is nonspecific. There is no evidence of intestinal obstruction. Appendix: No evidence of appendicitis. Intraperitoneal space: Unremarkable. No free air. No significant fluid collection. Vasculature: Unremarkable. No abdominal aortic aneurysm. Lymph nodes: There are multiple nonspecific nonpathologic but prominent lymph nodes in the mesentery. There are no mesenteric lymph nodes of pathologic dimensions. Urinary bladder: Unremarkable as visualized. Reproductive: Left ovarian cyst measures 2.1 cm. Bones/joints: Unremarkable. No acute fracture. Soft tissues: Unremarkable. Other findings: Motion artifact does moderately limit the sensitivity of this examination. Procedure Note Nancy Lazo MD - 08/07/2023 PROCEDURE INFORMATION: Exam: CT Abdomen And Pelvis With Contrast Exam date and time: 08/07/2023 1:18 PM Age: 22 years old Clinical indication: Other: Abdominal pain, j tube pulled out, please putsome contrast in tube TECHNIQUE: Imaging protocol: Computed tomography of the abdomen and pelvis withcontrast. Radiation optimization: All CT scans at this facility use at least one ofthese dose optimization techniques: automated exposure control; mA and/or kV adjustment per patient size (includes targeted exams where dose is matchedto clinical indication); or iterative reconstruction. Contrast material: OPTIRAY 320; Contrast volume: 100 ml; Contrast route: INTRAVENOUS (IV); Other contrast: Oral, omnipaque, 5; COMPARISON: CT ABD/PELVIS W IV CONTRAST - WO ORAL CONTRAST 07/10/2023 3:52 PM FINDINGS: Tubes, catheters and devices: Jejunostomy tube appears to be at the marginis a abdominal wall and peritoneum. It is not definitively intraluminal. Lungs: No acute abnormality. Liver: Normal. No mass. Gallbladder and bile ducts: Normal. No calcified stones. No ductaldilation. Pancreas: Normal. No ductal dilation. Spleen: Normal. No splenomegaly. Adrenal glands: Normal. No mass. Kidneys and ureters: Normal. No hydronephrosis. Stomach and bowel: Mild wall thickening of small bowel loops in left upper quadrant near the J tube tip is nonspecific. There is no evidence ofintestinal obstruction. Appendix: No evidence of appendicitis. Intraperitoneal space: Unremarkable. No free air. No significant fluid collection. Vasculature: Unremarkable. No abdominal aortic aneurysm. Lymph nodes: There are multiple nonspecific nonpathologic but prominentlymph nodes in the mesentery. There are no mesenteric lymph nodes of pathologic dimensions. Urinary bladder: Unremarkable as visualized. Reproductive: Left ovarian cyst measures 2.1 cm. Bones/joints: Unremarkable. No acute fracture. Soft tissues: Unremarkable. Other findings: Motion artifact does moderately limit the sensitivity ofthis examination. IMPRESSION IMPRESSION: 1. Jejunostomy tube tube tip appears to be at the margin of theabdominal wall and peritoneum. It is not clearly inside the jejunal lumen. Recommend clinical correlation. No contrast seen inside bowel loops. 2. Mild wall thickening of jejunal loops near the jejunostomy tube is nonspecific and may be chronic. Overall nonobstructive bowel gas pattern. 3. Ovarian cysts. THIS DOCUMENT HAS BEEN ELECTRONICALLY SIGNED BY NANCY LAZO MD Michelle VILLASEÑOR-Janet RAD CT * (ABNORMAL) DIFFERENTIAL, AUTOMATED (08/07/2023 12:50 PM EST) WBC 5.77 4.00 - 10.80 K/uL 08/07/2023 12:54 PM EST [facility] Neutrophils % 49.5 40.0 - 75.0 % 08/07/2023 12:54 PM EST [facility] Lymphocytes % 43.3(H) 18.0 - 42.0 % 08/07/2023 12:54 PM EST [facility] Monocytes % 6.1 1.0 - 11.0 % 08/07/2023 12:54 PM EST [facility] Eosinophils % 0.5 0.0 - 6.0 % 08/07/2023 12:54 PM EST [facility] Basophils % 0.3 0.0 - 2.0 % 08/07/2023 12:54 PM EST [facility] Immature Granulocytes % 0.3 0.0 - 2.0 % 08/07/2023 12:54 PM EST [facility] Absolute Neutrophils 2.85 1.80 - 7.70 K/uL 08/07/2023 12:54 PM EST [facility] Absolute Lymphocytes 2.50 1.00 - 4.80 K/ul 08/07/2023 12:54 PM EST [facility] Absolute Monocytes 0.35 0.00 - 1.10 K/uL 08/07/2023 12:54 PM EST [facility] Absolute Eosinophils 0.03 0.00 - 0.70 K/uL 08/07/2023 12:54 PM EST [facility] Absolute Basophils 0.02 0.00 - 0.20 K/uL 08/07/2023 12:54 PM EST [facility] Absolute Immature Granulocytes 0.02 0.00 - 0.20 K/uL 08/07/2023 12:54 PM EST [facility] Blood Venous blood specimen / Unknown Venipuncture / Unknown 08/07/2023 12:50 PM EST 08/07/2023 12:51 PM EST Michelle Valverde PA-C LAB BLOOD ORDERABLE S LABORATORY GL [address] [place] [address] * CBC (08/07/2023 12:50 PM EST) WBC 5.77 4.00 - 10.80 K/uL 08/07/2023 12:54 PM EST LABORATORY GL RBC 4.36 3.85 - 5.15 M/uL 08/07/2023 12:54 PM EST [facility] HGB 13.0 12.0 - 15.3 g/dL 08/07/2023 12:54 PM EST [facility] HCT 37.7 36.0 - 45.2 % 08/07/2023 12:54 PM EST LABORATORY GL MCV 86.5 81.5 - 97.5 fL 08/07/2023 12:54 PM EST [facility] MCH 29.8 27.0 - 34.0 pg 08/07/2023 12:54 PM EST [facility] MCHC 34.5 32.0 - 36.0 g/dL 08/07/2023 12:54 PM EST LABORATORY GL RDW 12.9 11.5 - 15.5 % 08/07/2023 12:54 PM EST [facility] PLT 252 140 - 400 K/uL 08/07/2023 12:54 PM EST LABORATORY GL MPV 10.4 6.6 - 11.1 fL 08/07/2023 12:54 PM EST [facility] nRBCs 0 <=0 /100 WBCs 08/07/2023 12:54 PM EST [facility] Blood Venous blood specimen / Unknown Venipuncture / Unknown 08/07/2023 12:50 PM EST 08/07/2023 12:51 PM EST Michelle Valverde PA-C LAB BLOOD ORDERABLE S [facility] [address] [place] [address] * COMPREHENSIVE METABOLIC PANEL (08/07/2023 12:50 PM EST) BUN 6 6 - 20 mg/dL 08/07/2023 1:10 PM EST [facility] Creatinine 0.6 0.5 - 1.0 mg/dL 08/07/2023 1:10 PM EST [facility] Estimated Glomerular Filtration Rate >90 >=60 mL/min 08/07/2023 1:10 PM EST [facility] Comment:eGFR is calculated b ased on the CKD-EPI 2020 equation Sodium 142 135 - 146 mmol/L 08/07/2023 1:10 PM EST [facility] Potassium 3.6 3.5 - 5.1 mmol/L 08/07/2023 1:10 PM EST [facility] Chloride 107 98 - 107 mmol/L 08/07/2023 1:10 PM EST [facility] CO2 24 22 - 32 mmol/L 08/07/2023 1:10 PM EST [facility] Anion Gap 11 7 - 15 mmol/L 08/07/2023 1:10 PM EST [facility] Glucose 88 70 - 120 mg/dL 08/07/2023 1:10 PM EST [facility] Albumin 4.2 3.8 - 5.0 g/dL 08/07/2023 1:10 PM EST [facility] AST 13 10 - 35 U/L 08/07/2023 1:10 PM EST [facility] Alkaline Phosphatase 85 35 - 130 U/L 08/07/2023 1:10 PM EST [facility] Bilirubin, Total 0.3 <=1.2 mg/dL 08/07/2023 1:10 PM EST [facility] Calcium 9.2 8.4 - 10.2 mg/dL 08/07/2023 1:10 PM EST [facility] Protein 7.0 6.0 - 8.3 g/dL 08/07/2023 1:10 PM EST [facility] ALT 11 10 - 35 U/L 08/07/2023 1:10 PM EST [facility] Blood Venous blood specimen / Unknown Venipuncture / Unknown 08/07/2023 12:50 PM EST 08/07/2023 12:51 PM EST Michelle Valverde PA-C LAB BLOOD ORDERABLE S [facility] [address] [place] [address] documented in this encounter Visit Diagnoses Diagnosis Jejunostomy tube site pain (HCC)- Primary Other complication of colostomy or enterostomy Dislodged jejunostomy tube Mechanical complication of colostomy and enterostomy documented in this encounter Administered Medications Inactive Administered Medications - up to 3 most recent administrations Medication Order MAR Action Action Date Dose Rate Site Ioversol (Optiray 320) inj 100 mL 100 mL, Intravenous, ONCE, On 08/07/23 at 1400, For 1 dose, Radiology Medication Routing (Non-IR) Given 08/07/2023 1:20 PM EST 100 mL ketorolac (Toradol) 30 MG/ML inj 15 mg 15 mg, IV Push, ONCE, On 08/07/23 at 1515, For 1 dose Given 08/07/2023 2:47 PM EST 15 mg ondansetron (Zofran) inj 4 mg 4 mg, IV Push, ONCE, On 08/07/23 at 1515, For 1 dose Given 08/07/2023 2:47 PM EST 4 mg documented in this encounter Active and Recently Administered Medications Times are shown in EST. Scheduled Medication Order 08/05/2023 08/06/2023 08/07/2023 Ioversol (Optiray 320) inj 100 mL (COMPLETED) 100 mL, Intravenous, ONCE, On 08/07/23 at 1400, For 1 dose, Radiology Medication Routing (Non-IR) 1320 (Given - Provid er: Evelyn Swenson, RT) ketorolac (Toradol) 30 MG/ML inj 15 mg (COMPLETED) 15 mg, IV Push, ONCE, On 08/07/23 at 1515, For 1 dose 1447 (Given - Provid er: Bobbi Way RN) ondansetron (Zofran) inj 4 mg (COMPLETED) 4 mg, IV Push, ONCE, On 08/07/23 at 1515, For 1 dose 1447 (Given - Provid er: Bobbi Way RN) documented in this encounter Advance Directives [...] the patient have Health Care Power of Bosom Presser? No Full Code 07/18/2021 7:04 AM 08/03/2021 4:12 PM This order reflects the patients wishes and were consensually agreed upon. Question Answer Comments Discussion of Advance Directives occurred with: Not Discussed Care Teams Business Associate Relationship Specialty Start Date End Date Kinjal Reynoso PA-C [address] [phone] PCP - General Physician Museum Tour Guide 11/05/22 documented as of this encounter
--- OUTSIDE RECORDS SUMMARY | 2024-01-01 09:20 | External Medical Summary ---
Author Name Unknown Address Unknown Organization K01:[facility] [place] - [address] [place] [address] Laboratory Report Ordering Provider Test Date Status KESHAV MITCHELL 08/08/2023 23:08:00 Final Observation Date Value Abnormality Reference (Units ) Status Methicillin resistant Staphylococcus aureus (MRSA) DNA [Presence] in Nose by SUHAIL with probe detection 08/08/2023 23:08:00 Negative Negative Final No Methicillin resistant Sta phylococcus aureus detected by PCR (amplified probe). Performing Location [facility] - [address] [place] [address]
[2024-01-01] MEDS: ACETAMINOPHEN SUSP 325 MG/10.15 ML UDC PEG PRN (10:07)
[2024-01-01 10:53] LABS: Influenza A virus by PCR Negative (Neg); Influenza B virus by PCR Negative (Neg); RSV by PCR Negative (Neg); SARS CoV2 RNA(COVID-19) Ceph POSITIVE (Negative)
--- NOTE | 2024-01-01 11:51 | Electrocardiogram Report ---
Test Reason : Blood Pressure : / mmHG Vent. Rate : 049 BPM Atrial Rate : 049 BPM P-R Int : 156 ms QRS Dur : 070 ms QT Int : 402 ms P-R-T Axes : 048 039 036 degrees QTc Int : 363 ms Sinus bradycardia Low voltage QRS Otherwise Normal ECG Confirmed by Tai Núñez ([id number]) on 01/01/2024 11:51:00 AM Referred By: REFERRED SELF Confirmed By:Tai Núñez
[2024-01-01] MEDS: D5W AND 1/2NSS + 20MEQ KCL 20 MEQ/1,000 ML BAG IV ONE (12:06)
[2024-01-01] MEDS: TUBE FEEDING WATER FLUSH JT SCH (12:07)
[2024-01-01] MEDS ORDERED: ALBUTEROL HFA 8 GM INHALER INH PRN (13:04)
[2024-01-01] MEDS: oxyCODONE HCL IR 5 MG TAB (IMMEDIATE RELEASE) PEG PRN (13:20)
--- NOTE | 2024-01-01 13:42 | XRay Report ---
SINGLE VIEW CHEST CLINICAL HISTORY: Covid. FINDINGS: An AP, portable, upright chest radiograph is compared to study dated 09/23/2021. A right-side d central venous infusion port is in place. The cardiomediastinal silhouette is unremarkable. The char gs and pleural spaces are clear. No pneumothorax is seen. The bony thorax is grossly intact. Nipple p iercings are noted. IMPRESSION: No active disease in the chest. ACT 112: Negative or not required by law. Electronically signed by: Long Donahue M.D. 01/01/2024 1:40 PM
--- NOTE | 2024-01-01 14:08 | Hospitalist Progress Note ---
Date of Service January 01, 2024 Assessment & Plan (1) Intractable abdominal pain: Plan: Abdominal pain Secondary to ruptured ovarian cyst H/o chronic abdominal pain Gastroparesis s/p J-tube placement --CT ABD:. No acute infectious or inflammatory findings are identified in the abdomen or pelvis. There is a 3.2 cm dominant follicle in the right ovary and free fluid in the cul-de-sac. This may represent a ruptured ovarian cyst. Correlate clinically. Cautious use of narcotics Clear liquid diet Gentle IV fluids Resume tube feeds as able Continue PPI SURGICAL SCRUB TECHNOLOGIST consulted COVID-19 infection --CXR:No active disease in the chest. 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 DVT Px: Lovenox SQ CODE STATUS Full code Admission and Anticipated Discharge Date Admission Date: December 31, 2023 Subjective Patient is seen and examined at bedside States having mild cough but denies any significant dyspnea Reports chronic nausea but no vomiting States having generalized abdominal pain today No other complaints Denies any chest pain, dizziness, diarrhea Review of Systems Review of Systems: All systems reviewed & are unremarkable except as noted in Subjective Physical Exam Physical Exam: Physical Exam: Vitals signs as noted above General Appearance:Moderately built and nourished, no apparent distress Head: normocephalic, Atraumatic Eyes: normal inspection, EOMI Neck: supple, Trachea midline Respiratory/Chest: Normal breath sounds, CTA, No accessory muscle use Cardiovascular: S1, S2, No murmur Abdomen/GI:Soft, +generalized tender, + voluntary guarding,+ Peg Tube, bowel sounds present Extremities/Musculoskeletal:normal inspection, no edema Neurologic/Psych:AAOX3, grossly no focal neurological deficits Skin: normal color, warm Results & Data Results & Data Vital Signs (Past 12 Hours) Vital Signs Temp Pulse Resp BP Pulse Ox O2 Del Method 01/01/24 08:08 36.9 C 72 16 119/71 99 Room Air Laboratory Results Short CBC 12/31/23 01/01/24 Range/Units 17:14 07:00 WBC 3.76 L 3.36 L (4.8-10.8) K/ul Hgb 14.3 12.3 (12.0-16.0) g/dl Hct 40.8 35.6 L (37.0-47.0) % Plt Count 232 199 (130-400) K/uL BMP 12/31/23 01/01/24 17:14 07:00 Sodium 139 140 Potassium 3.5 3.7 Chloride 108 H 111 H Carbon Dioxide 24 23 BUN 8 8 Creatinine 0.70 0.54 L Glucose 103 H 86 Calcium 9.3 8.1 L Liver Function 12/31/23 Range/Units 17:14 Total Bilirubin 0.2 (0.2-1.0) mg/dl AST 16 (13-39) U/L ALT 11 (7-52) U/L Alkaline Phosphatase 74 (34-104) U/L Albumin 4.4 (3.4-5.0) gm/dl Urine 12/31/23 Range/Units 20:25 Urine Color Yellow Urine Appearance Clear (Clear) Urine pH 7.0 (4.5-7.5) Ur Specific [place] 1.034 H (1.000-1.030) Urine Protein Negative (Negative) Urine Glucose (UA) Negative (Negative)
[2024-01-01] MEDS: PROMETHAZINE HCL 12.5 MG in SODIUM CHLORIDE 0.9% 50 ML IV PRN (14:45)
[2024-01-01] MEDS: PEPTAMEN 1.5 CAL 1,000 ML BAG JT SCH (14:54)
[2024-01-02 06:19] LABS: Hematocrit (blood only) 37.6 % (37.0-47.0); Hemoglobin 12.9 g/dl (12.0-16.0); Mean Corpuscular Hemoglobin 30.6 pg (25.0-34.0); Mean Corpuscular Hgb Conc 34.3 g/dL (32.0-36.0); Mean Corpuscular Volume 89.3 fL (80.0-100.0); Mean Platelet Volume 10.6 fL (9.4-12.4); Platelet Count 215 K/uL (130-400); RDW Coefficient of Variation 12.1 % (11.5-14.5); RDW Standard Deviation 39.7 fL (36.4-46.3); Red Blood Count 4.21 M/uL (4.20-5.40); White Blood Count 3.53 K/ul (4.8-10.8)
[2024-01-02 06:27] LABS: Anion Gap 8 (3-11); BUN Creatinine Ratio 11.3 (10-20); Blood Urea Nitrogen 7 mg/dl (6-23); C Reactive Protein < 0.50 mg/dl (0-0.5); Calcium 8.5 mg/dl (8.6-10.3); Carbon Dioxide 23 mmol/L (21-32); Chloride 109 mmol/L (98-107); Creatinine Clr Calc Pharmacy 132.8 ml/min; Est GFR (African American) 148.3 ml/min; Glucose 103 mg/dl (70-99(Fasting)); Potassium 3.7 mmol/L (3.5-5.1); Sodium 140 mmol/L (136-145)
[2024-01-02 06:49] LABS: RBC Morphology Unremarkable
[2024-01-02 06:54] LABS: Basophils # (auto) 0.01 K/uL (0.00-0.20); Basophils % (auto) 0.3 %; Eosinophils # (auto) 0.08 K/uL (0.00-0.50); Eosinophils % (auto) 2.3 %; Immature Granulocytes # (auto) 0.01 K/uL (0.01-0.20); Immature Granulocytes % (auto) 0.3 %; Lymphocytes % (auto) 62.3 %; Monocytes # (auto) 0.28 K/uL (0.11-0.59); Monocytes % (auto) 7.9 %; Neutrophils # (auto) 0.95 K/uL (1.40-6.50); Neutrophils % (auto) 26.9 %
[2024-01-02] MEDS ORDERED: CAPSAICIN CR 0.075% 60 GM TUBE EXT PRN (12:58)
[2024-01-02] MEDS: FAMOTIDINE 20MG IV PUSH 20 MG/5 ML SYR IV STA (13:30)
[2024-01-02] MEDS: HYDROmorphone INJ 0.5 MG/0.5 ML SYR IV STA (13:30)
--- NOTE | 2024-01-02 13:59 | CT Scan Report ---
ABDOMEN AND PELVIS CT WITHOUT CONTRAST CT DOSE: 988.14 mGy.cm HISTORY: Abdominal Pain TECHNIQUE: Multiaxial CT images of the abdomen and pelvis were performed without contrast. A dose lo wering technique was utilized adhering to the principles of ALARA. COMPARISON STUDY: Abdomen and pelvis CT 12/31/2023. FINDINGS: The lung bases are clear. Mild motion artifact. No pneumoperitoneum. No pneumatosis. No acu te fractures. Supraumbilical midline incision again noted. The unenhanced liver, gallbladder, pancrea s, spleen, adrenal glands, and kidneys are unremarkable. No renal or ureteral stones. No hydronephros is. No retroperitoneal lymphadenopathy. Normal caliber abdominal aorta. Mild mesenteric lymphadenitis , unchanged no pelvic lymphadenopathy. Normal bladder. Prior hysterectomy. Normal left ovary. There i s decrease in size in the now 2.8 cm right ovarian follicle/cyst with improvement in the pelvic fluid . Suboptimal evaluation for bowel pathology due to the lack of intravenous and oral contrast. However , there is no definite bowel wall thickening or obstruction. A right-sided percutaneous jejunostomy t ube is again noted. [id number] fecal retention. IMPRESSION: 1. No bowel wall thickening or obstruction. 2. Decrease in size in the now 2.8 cm right ovarian follicle/cyst with improvement in the pelvic free fluid. 3. Prior hysterectomy. 4. Mild to moderate fecal retention. ACT 112: Negative or not required by law. Electronically signed by: Elkin Rai M.D. 01/02/2024 1:57 PM
[2024-01-02] MEDS: D5W AND 1/2NSS 1,000 ML IV ONE (14:01)
--- NOTE | 2024-01-02 15:26 | Hospitalist Progress Note ---
Date of Service January 02, 2024 Assessment & Plan (1) Intractable abdominal pain: Plan: Abdominal pain Secondary to ruptured ovarian cyst H/o chronic abdominal pain Gastroparesis s/p J-tube placement Constipation --CT ABD:. No acute infectious or inflammatory findings are identified in the abdomen or pelvis. There is a 3.2 cm dominant follicle in the right ovary and free fluid in the cul-de-sac. This may represent a ruptured ovarian cyst. Correlate clinically. --Repeat CT ABD:No bowel wall thickening or obstruction. Decrease in size in the now 2.8 cm right ovarian follicle/cyst with improvement in the pelvic free fluid.. Prior hysterectomy. Mild to moderate fecal retention. Cautious use of narcotics Gentle IV fluids Continue PPI --SEARCH PLANNER, Surgery consulted Surgery to evaluate J-tube/abd pain Started on bowel regimen COVID-19 infection --CXR:No active disease in the chest. 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 DVT Px: Lovenox SQ CODE STATUS Full code Admission and Anticipated Discharge Date Admission Date: January 01, 2024 Subjective Patient is seen and examined at bedside States having abdominal pain associated with nausea, vomiting Minimal cough Denies any dyspnea No other complaints Denies any chest pain, dizziness, diarrhea Review of Systems Review of Systems: All systems reviewed & are unremarkable except as noted in Subjective Physical Exam Physical Exam: Physical Exam: Vitals signs as noted above General Appearance:Moderately built and nourished, no apparent distress Head: normocephalic, Atraumatic Eyes: normal inspection, EOMI Neck: supple, Trachea midline Respiratory/Chest: Normal breath sounds, CTA, No accessory muscle use Cardiovascular: S1, S2, No murmur Abdomen/GI:Soft, +generalized tender, + voluntary guarding,+ Peg Tube, bowel sounds present Extremities/Musculoskeletal:normal inspection, no edema Neurologic/Psych:AAOX3, grossly no focal neurological deficits Skin: normal color, warm Results & Data Results & Data Vital Signs (Past 12 Hours) Vital Signs Temp Pulse Resp BP Pulse Ox O2 Del Method 01/02/24 13:51 36.8 C 84 16 128/87 98 Room Air 01/02/24 07:47 36.7 C 52 L 16 119/87 100 Room Air Laboratory Results Short CBC 01/02/24 Range/Units 05:38 WBC 3.53 L (4.8-10.8) K/ul Hgb 12.9 (12.0-16.0) g/dl Hct 37.6 (37.0-47.0) % Plt Count 215 (130-400) K/uL BMP 01/02/24 05:38 Sodium 140 Potassium 3.7 Chloride 109 H Carbon Dioxide 23 BUN 7 Creatinine 0.62 Glucose 103 H Calcium 8.5 L
--- NOTE | 2024-01-02 16:03 | Surgery Consultation ---
<Statement entered by Lesa Triana DO - 01/02/24 16:17> I have seen and examined this patient with the surgical PA, I agree with this plan. Date of Consultation January 02, 2024 Assessment & Plan (1) Abdominal pain: This is a 23yF with a PMH of gastroparesis with J tube for TEN, endometriosis s/p hysterectomy, who presents to the [facility] ED on 12/31/23 with abdominal pain. Workup with a CT showed concern for a ruptured ovarian cyst. She was admitted to the hospital for pain control. Unfortunately today she developed worsening pain in her lower abdomen and there was concern her J tube dislodged. A repeat CT scan showed no acute pathology and J tube noted in small bowel. TEN has since been on hold. Labs show wbc 3, hbg 12.9. Vitals are stable. On exam patient appears somewhat anxious and in pain. Abdomen is soft but with discomfort in mid and lower abdomen and surrounding j tube site. She said she feels it into her back. Cannot clearly see the balloon inflated on repeat CT scan and upon aspiration of NS from the balloon port only about 0.5cc was retracted. The j tu be appeared a few cm retracted from the skin. Therefore, it was slowly re- inserted to what appears to be its original position and was taped into place to secure it. A KUB with contrast has been ordered to check position. If positioning is correct it is okay to resume TEN and medications via j tube. If it is in a good spot we will have to re-inflate the balloon with NSS and check for a leak over the next day or so. Please cover J tube site with ABD and can also utilize an abdominal binder to ensure it does not dislodge again. Consider daytime TEN and giving her a break at night if feasible. We will follow up on KUB. otherwise no indications for surgical intervention. History of Present Illness Attending Physician: Lazarus Alston MD History of Present Illness This is a 23yF with a PMH of gastroparesis with J tube for TEN, endometriosis s/p hysterectomy, who presents to the [facility] ED on 12/31/23 with abdominal pain. Workup with a CT showed concern for a ruptured ovarian cyst. She was admitted to the hospital for pain control. Unfortunately today she developed worsening pain in her lower abdomen and there was concern her J tube dislodged. A repeat CT scan showed no acute pathology and J tube noted in small bowel. She has been having severe pain and nausea/vomiting. TEN has been held. J tube was placed a few months ago by [facility]? Allergies Allergy/AdvReac Type Severity Reaction Status Date / Time metoclopramide [From Reglan] AdvReac Intermediate PSYCHO Verified 12/31/23 19:06 REACTIONS prochlorperazine AdvReac Intermediate Agitated Verified 12/31/23 19:06 [From Compazine] ondansetron [From Zofran] AdvReac Mild Flushing Verified 12/31/23 19:06 Home Medications Medication Instructions Recorded Confirmed Type acetaminophen 160 mg/5 mL oral 0 mg feeding tube BID PRN Pain 08/07/23 12/31/23 History suspension (Children's Acetaminophen) gabapentin 300 mg capsule 300 mg feeding tube TID PRN Pain 08/07/23 12/31/23 History lansoprazole 15 mg capsule,delayed 15 mg PO DAILY PRN Acid Reflux 08/07/23 12/31/23 History release naloxone 4 mg/actuation nasal spray 1 spray intranasal DIRECTED PRN 08/07/23 12/31/23 History .Opiod od nutritional supplements 0 ea feeding tube DIRECTED 08/07/23 12/31/23 History oxycodone 5 mg tablet 5 mg feeding tube Q6H PRN Pain 08/07/23 12/31/23 History polyethylene glycol 3350 17 17 g feeding tube DAILY PRN 08/07/23 12/31/23 History gram/dose oral powder (Miralax) Constipation promethazine 25 mg tablet 25 mg feeding tube Q6 PRN Nausea 08/07/23 12/31/23 History Patient History Medical History Chronic abdominal pain Non-cardiac chest pain Surgical History H/O: hysterectomy Social History Smoking Status: Never smoker Tobacco Type: E-cigarettes / Vaping Second Hand Exposure: No; Do You Dip or Chew Tobacco: No; Hx Alcohol Use: No Hx Substance Use: No Preferred Language: Tamazight Communication Ability: Effective Business Continuity Coordinator Required: No Beliefs That Will Affect Care: None Current Living Situation: Parent Current Living Situation Comment: Lives with mother. Other Information That Helps Us Care for You: No Feels Safe at Home: Yes Safety Concerns: Feels Safe At This Time Assistive Devices: None Review of Systems Respiratory: no dyspnea Cardiovascular: no chest pain Gastrointestinal: + abdominal pain, + nausea and + vomitin g j tube pulled out a few cm Physical Exam Physical Exam: awake, alert, appears in pain Respiratory: normal respiratory effort Gastrointestinal (Abdomen): Inspection/Auscultation: abdomen not distended Percussion/Palpation: + abdomen tender (discomfort in mid and lower abdomen) and abdomen soft J tube appears pulled out 3-4cm from its baseline Results & Data Vital Signs (Past 12 Hours) Vital Signs Temp Pulse Resp BP Pulse Ox O2 Del Method 01/02/24 13:51 98.2 F 84 16 128/87 98 Room Air 01/02/24 07:47 98.1 F 52 L 16 119/87 100 Room Air Diagnostic Findings ABDOMEN AND PELVIS CT WITHOUT CONTRAST CT DOSE: 988.14 mGy.cm HISTORY: Abdominal Pain TECHNIQUE: Multiaxial CT images of the abdomen and pelvis were performed without contrast. A dose lowering technique was utilized adhering to the principles of ALARA. COMPARISON STUDY: Abdomen and pelvis CT 12/31/2023. FINDINGS: The lung bases are clear. Mild motion artifact. No pneumoperitoneum. No pneumatosis. No acute fractures. Supraumbilical midline incision again noted. The unenhanced liver, gallbladder, pancreas, spleen, adrenal glands, and kidneys are unremarkable. No renal or ureteral stones. No hydronephrosis. No retroperitoneal lymphadenopathy. Normal caliber abdominal aorta. Mild mesenteric lymphadenitis, unchanged no pelvic lymphadenopathy. Normal bladder. Prior hysterectomy. Normal left ovary. There is decrease in size in the now 2.8 cm right ovarian follicle/cyst with improvement in the pelvic fluid. Suboptimal evaluation for bowel pathology due to the lack of intravenous and oral contrast. However, there is no definite bowel wall thickening or obstruction. A right- sided percutaneous jejunostomy tube is again noted. Nabq-nj-yorhonmb fecal retention. IMPRESSION: 1. No bowel wall thickening or obstruction. 2. Decrease in size in the now 2.8 cm right ovarian follicle/cyst with improvement in the pelvic free fluid. 3. Prior hysterectomy. 4. Mild to moderate fecal retention. ACT 112: Negative or not required by law Electronically signed by: Elkin Rai M.D. 01/02/2024 1:57 PM PG Care Time/CCT Total # of Minutes Spent Total Time Spent with Patient: Total time spent is greater than 50% in coordination of care (as documented) at patient's floor/unit and/or counseling patient: Coding Level of Care Code 78176 IN/OBS CONSULT LVL 3,45M Diagnoses Abdominal pain R10.9 Abdominal location: unspecified location (1) Abdominal pain Abdominal location: unspecified location Qualified Code(s): R10.9 - Unspecified abdominal pain
[2024-01-02] MEDS: DOCUSATE SODIUM 100 MG CAP PO SCH (16:12)
--- NOTE | 2024-01-02 16:22 | XRay Report ---
KUB HISTORY: contrast J tube study. shoot contrast via JT COMPARISON: Abdomen and pelvis CT 01/02/2024. FINDINGS: The bowel gas pattern is unremarkable. There are no dilated loops of small bowel to suggest an obstruction. No renal calculi. No ureteral calculi. No pneumoperitoneum or pneumatosis. The scou t image demonstrates a right-sided percutaneous jejunostomy tube which terminates within the right si de the abdomen. Water-soluble contrast was injected through the jejunostomy tube. No extraluminal con trast to suggest a leak or perforation. IMPRESSION: The right-sided percutaneous jejunostomy tube appears in good position. ACT 112: Negative or not required by law. Electronically signed by: Elkin Rai M.D. 01/02/2024 4:17 PM
[2024-01-02] MEDS: FAMOTIDINE 20MG IV PUSH 20 MG/5 ML SYR IV SCH (20:51)
[2024-01-02] MEDS: KETOROLAC TROMETHAMINE 15 MG/ML VIAL IV PRN (21:02)
[2024-01-03] MEDS: HEPARIN 100 UNIT/ML 5ML FLUSH FLUSH PRN (07:40)
[2024-01-03 07:58] LABS: Hematocrit (blood only) 38.8 % (37.0-47.0); Hemoglobin 13.5 g/dl (12.0-16.0); Mean Corpuscular Hemoglobin 30.6 pg (25.0-34.0); Mean Corpuscular Hgb Conc 34.8 g/dL (32.0-36.0); Mean Platelet Volume 10.3 fL (9.4-12.4); Platelet Count 212 K/uL (130-400); RDW Standard Deviation 39.1 fL (36.4-46.3); Red Blood Count 4.41 M/uL (4.20-5.40); White Blood Count 4.18 K/ul (4.8-10.8)
[2024-01-03 08:19] LABS: Basophils # (auto) 0.01 K/uL (0.00-0.20); Basophils % (auto) 0.2 %; Eosinophils # (auto) 0.09 K/uL (0.00-0.50); Eosinophils % (auto) 2.2 %; Immature Granulocytes # (auto) 0.01 K/uL (0.01-0.20); Immature Granulocytes % (auto) 0.2 %; Lymphocytes # (auto) 2.18 K/uL (1.20-3.40); Lymphocytes % (auto) 52.2 %; Monocytes # (auto) 0.41 K/uL (0.11-0.59); Monocytes % (auto) 9.8 %; Neutrophils # (auto) 1.48 K/uL (1.40-6.50); Neutrophils % (auto) 35.4 %
--- NOTE | 2024-01-03 14:48 | XRay Report ---
KUB CLINICAL HISTORY: Constipation. FINDINGS: An AP, portable, supine abdominal radiograph is compared to abdominal x-ray and CT dated . A percutaneous jejunostomy tube is in place. No bowel obstruction is seen. Residual enteric contrast is seen throughout the colon. There is mild colonic fecal retention. No evidence of intraper itoneal free air is identified on this supine image. There are no abnormal abdominal calcifications. A surgical clip projects over the right pelvis. The bony structures appear intact. IMPRESSION: No acute abnormality. Electronically signed by: Long Donahue M.D. 01/03/2024 2:47 PM
[2024-01-03] MEDS: TUBE FEEDING WATER FLUSH JT SCH (15:15)
[2024-01-03] MEDS: ONDANSETRON INJ 2 MG/ML 2 ML VIAL IV PRN (15:15)
--- NOTE | 2024-01-03 15:53 | Surgery Progress Note ---
<Statement entered by Lesa Triana DO - 01/04/24 12:16> I have seen and examined this patient. I agree with this plan. I believe she has chronic pain from any J-tube site from what she describes. Keep the tube in to the level of the bolster to avoid the balloon component rubbing on the peritoneum or skin. Follow up with with her J tube surgeon or the service who has exchanged these in the past should the patient feel as though she needs a new tube due to balloon compromise. This tube is in position and working well. Date of Service January 03, 2024 Assessment & Plan (1) Abdominal pain: Plan: We were consulted yesterday due to concern for dislodged J tube -The bumper was pulled a few cm away from the skin. the tube was able to gently be pushed back in and taped to skin -KUB yesterday w/ contrast revealed it is in good position. 7cc of NSS was inserted to blow up balloon -Unfortunately today we were unable to aspirate the 7cc of saline, similar to yesterday. It is likely the balloon is compromised -Despite this, it is currently in a good position and is able to be used for TEN and medications without issues -Pt expresses concerns for future dislodgement. unfortunately our IR and GI teams do not offer services for J tube exchanges here and we may not have the appropriate equipment to do so -In addition it appears there was some difficulty getting it exchanged in the past at [facility]; it is unclear whether this was done via IR or surgically -Given that we are unsure how it was placed (originally in [facility]), then exchanged at [facility], coupled with the fact she has + Covid, and we do not offer appropriate services/have the right tools to exchange it here we would recommend pt f/ with [facility] or surgery vs her surgeon who originally placed it in [facility] as an outpatient. this does not require urgent intervention. we have taped the bumper to her skin, in addition she can protect it further by placing an ABD pad over the area along with an abdominal binder. recommend running TEN during the daytime so that she does not have to be connected at nighttime when she is sleeping and more unaware of her tube for fear of it pulling out accidentally -Pt is agreeable to the plan. we have no plans for surgical intervention on this pt at this time. we will sign off. call with any questions/concerns Admission and Anticipated Discharge Date Admission Date: January 01, 2024 Subjective Patient feeling some improvement in her abdominal pain today. J tube in good position. Currently being used for TEN without issues. Patient expresses some concerns of future dislodgement of the tube given that the balloon appears to be compromised. Physical Exam Physical Exam: awake, alert Gastrointestinal (Abdomen): J tube in good position. bolster taped down to skin. TEN infusing. abdominal discomfort improved from yesterday Results & Data Vital Signs (Past 12 Hours) Vital Signs Temp Pulse Resp BP Pulse Ox O2 Del Method 01/03/24 14:12 98.6 F 58 L 16 114/76 98 Room Air 01/03/24 12:01 Room Air 01/03/24 07:44 98.2 F 63 16 105/71 100 Room Air PG Care Time/CCT Total # of Minutes Spent Total Time Spent with Patient: Total time spent is greater than 50% in coordination of care (as documented) at patient's floor/unit and/or counseling patient: Coding Level of Care Code 02528 SUB INP/OBS CARE 1/25MIN Diagnoses Abdominal pain R10.9 Abdominal location: unspecified location (1) Abdominal pain Abdominal location: unspecified location Qualified Code(s): R10.9 - Unspecified abdominal pain
[2024-01-03] MEDS ORDERED: DOCUSATE SODIUM 100 MG CAP PO PRN (17:32)
--- NOTE | 2024-01-03 17:38 | Hospitalist Progress Note ---
Date of Service January 03, 2024 Assessment & Plan (1) Intractable abdominal pain: Plan: Abdominal pain Secondary to ruptured ovarian cyst H/o chronic abdominal pain Gastroparesis s/p J-tube placement Constipation Concern for dislodged G-tube/likely J-tube balloon compromised --CT ABD:. No acute infectious or inflammatory findings are identified in the abdomen or pelvis. There is a 3.2 cm dominant follicle in the right ovary and free fluid in the cul-de-sac. This may represent a ruptured ovarian cyst. Correlate clinically. --Repeat CT ABD:No bowel wall thickening or obstruction. Decrease in size in the now 2.8 cm right ovarian follicle/cyst with improvement in the pelvic free fluid.. Prior hysterectomy. Mild to moderate fecal retention. 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 Rowley: Reviewed CT, conservative management for ovarian cyst Appreciate surgery input: Can continue tube feeds. May need exchange of J-tube eventually as outpatient. Does not require urgent intervention currently Pain is improving Stool studies to rule out C. difficile KUB today showed no acute abnormality Advance diet as tolerated COVID-19 infection --CXR:No active disease in the chest. 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 DVT Px: Lovenox SQ CODE STATUS Full code Admission and Anticipated Discharge Date Admission Date: January 01, 2024 Subjective Patient is seen and examined at bedside Abdominal pain better today Still has nausea, vomiting and loose bowel movement today Discussed with surgery today Intermittent cough Denies any chest pain, dyspnea, dizziness, diarrhea Review of Systems Review of Systems: All systems reviewed & are unremarkable except as noted in Subjective Physical Exam Physical Exam: Physical Exam: Vitals signs as noted above General Appearance:Moderately built and nourished, no apparent distress Head: normocephalic, Atraumatic Eyes: normal inspection, EOMI Neck: supple, Trachea midline Respiratory/Chest: Normal breath sounds, CTA, No accessory muscle use Cardiovascular: S1, S2, No murmur Abdomen/GI:Soft, +generalized tender, + voluntary guarding,+ Peg Tube, bowel sounds present Extremities/Musculoskeletal:normal inspection, no edema Neurologic/Psych:AAOX3, grossly no focal neurological deficits Skin: normal color, warm Results & Data Results & Data Vital Signs (Past 12 Hours) Vital Signs Temp Pulse Resp BP Pulse Ox O2 Del Method 01/03/24 14:12 37 C 58 L 16 114/76 98 Room Air 01/03/24 12:01 Room Air 01/03/24 07:44 36.8 C 63 16 105/71 100 Room Air Laboratory Results Short CBC 01/03/24 Range/Units 07:38 WBC 4.18 L (4.8-10.8) K/ul Hgb 13.5 (12.0-16.0) g/dl Hct 38.8 (37.0-47.0) % Plt Count 212 (130-400) K/uL
[2024-01-03] MEDS: KETOROLAC TROMETHAMINE 15 MG/ML VIAL IV PRN (17:40)
[2024-01-04 06:57] LABS: Hematocrit (blood only) 37.1 % (37.0-47.0); Mean Corpuscular Hemoglobin 30.8 pg (25.0-34.0); Mean Corpuscular Volume 87.9 fL (80.0-100.0); Mean Platelet Volume 10.4 fL (9.4-12.4); Platelet Count 224 K/uL (130-400); RDW Standard Deviation 38.9 fL (36.4-46.3); Red Blood Count 4.22 M/uL (4.20-5.40); White Blood Count 3.78 K/ul (4.8-10.8)
[2024-01-04 07:20] LABS: Basophils # (auto) 0.01 K/uL (0.00-0.20); Basophils % (auto) 0.3 %; Eosinophils # (auto) 0.08 K/uL (0.00-0.50); Eosinophils % (auto) 2.1 %; Immature Granulocytes # (auto) 0.02 K/uL (0.01-0.20); Immature Granulocytes % (auto) 0.5 %; Lymphocytes # (auto) 1.92 K/uL (1.20-3.40); Lymphocytes % (auto) 50.8 %; Monocytes # (auto) 0.38 K/uL (0.11-0.59); Monocytes % (auto) 10.1 %; Neutrophils # (auto) 1.37 K/uL (1.40-6.50); Neutrophils % (auto) 36.2 %
[2024-01-04 07:26] LABS: Calcium 8.8 mg/dl (8.6-10.3); Creatinine Clr Calc Pharmacy 132.8 ml/min; Est GFR (African American) 148.3 ml/min; Potassium 3.6 mmol/L (3.5-5.1)
[2024-01-04 11:47] LABS: Codeine Urine NEGATIVE ng/mL (<50); Fentanyl, Urine 0.5 ng/mL (<0.5); Hydrocodone Urine NEGATIVE ng/mL (<50); Hydromor Urine 582 ng/mL (<50); Marijuana Quant, GCMS Urine 1127 ng/mL (<5); Morphine Urine NEGATIVE ng/mL (<50); Norfentanyl, Urine 7.6 ng/mL (<0.5); Norhydrocodone Conf Ur NEGATIVE ng/mL (<50); Noroxycodone Urine 180 ng/mL (<50); Oxycodone Urine 67 ng/mL (<50); Oxymorph Urine 444 ng/mL (<50); medMATCH Fentanyl, Urine DNR; medMATCH Norfentanyl, Urine DNR
--- NOTE | 2024-01-04 12:43 | Surgery Progress Note ---
Date of Service January 04, 2024 Assessment & Plan (1) Gastroparesis: Plan: We have been asked to re-evaluate the patient due to ongoing abdominal pain -She has had 2 CT scans this admission that showed concern for a ruptured ovarian cyst without any other acute pathology -J tube was pushed back in 2 days ago when it pulled out a couple cm from the skin. there is concern for balloon compromise as it is not holding fluid. despite this KUB confirmed tube is in a good position and it has been used without issues for TEN and meds as needed. the bumper has been taped down to the skin, with overlying ABD on top and abdominal binder to help keep it in place. sutures were offered to place in the bumper to the skin, but pt refused. -Pt requesting the tube to be removed on our examination today. she fears this is the reason of her pain however this cannot be certain given she has a ruptured ovarian cyst amongst some chronic abdominal pain. we will not agree to remove the tube ourselves as we did not place nor were we involved in the decision making and diagnosis to pursue it. this would all have to be determined by the team who decided to put it in. she can follow up with whoever put it in to make this determination as she is currently reliant on it for her nutrition -We spoke w/ GI and IR yesterday who do not exchange J tubes. Given the fact this has been exchanged recently at [facility] and it is unclear if it was a surgical vs IR approach we would not pursue this here -None of this appears necessarily urgent at this time, labs/vitals/patient are stable, however again if her pain does not improve preventing her from being able to be discharged you can always consider a contrast CT study for further workup or consider trsfer to tertiary center where her J tube was managed previously for consideration of an exchange (2) Intractable abdominal pain: Admission and Anticipated Discharge Date Admission Date: January 01, 2024 Supervising Physician Co-Signing Physician Notes Patient seen and examined, labs and imaging reviewed, agree with above. 23-year-old female with chronic abdominal pain and multiple abdominal surgeries. She has a J-tube placed several months ago that appears to be working well. She is continue to have abdominal pain. There is concerned that the balloon may have ruptured, but the tube is currently in good position and tube feeds have been working. On exam she is afebrile with stable vitals. Her abdomen is soft, she describes tenderness to palpation, however she limits the exam. CT scans and KUBs personally reviewed and interpreted and agree with the assessment that the J-tube appears to be in good place on the most recent imaging studies. The patient has been requesting that the tube be removed. There is no indication for this at this time. We do not have outside records as to the entirety of the decision making process between her and her providers and her family. If she does suffer from severe gastroparesis as has been documented, she would have no lifeline for nutrition if the J-tube was to be removed. There is also no guarantee that removing the J-tube would fix her abdominal pain. Would recommend outpatient follow-up with her providers who have been managing these conditions as an outpatient prior to removal of the J-tube. If the J-tube were to fall out or be removed, and would need to be replaced at a later date, we would not perform this at this facility. Also, given the difficulty reported during past exchanges, any exchange would need to be performed at a facility with more robust IR capabilities or by her operative surgeon. Surgery will follow peripherally, call with questions or concerns Subjective Patient reporting ongoing abdominal pain. Requesting J tube be removed. Physical Exam Physical Exam: awake/alert Gastrointestinal (Abdomen): Percussion/Palpation: + abdomen tender and abdomen soft pt w/ cooling pad over abdomen. j tube appears to be in good position. TEN infusing Results & Data Vital Signs (Past 12 Hours) Vital Signs Temp Pulse Resp BP Pulse Ox O2 Del Method 01/04/24 08:00 Room Air 01/04/24 07:58 98.1 F 68 17 103/67 99 Room Air PG Care Time/CCT Total # of Minutes Spent Total Time Spent with Patient: Total time spent is greater than 50% in coordination of care (as documented) at patient's floor/unit and/or counseling patient: Coding Level of Care Code 60508 SUB INP/OBS CARE 125MIN Diagnoses Gastroparesis K31.84 Intractable abdominal pain R10.9
--- NOTE | 2024-01-04 15:16 | Hospitalist Progress Note ---
Date of Service January 04, 2024 Assessment & Plan (1) Intractable abdominal pain: Plan: Abdominal pain Secondary to ruptured ovarian cyst H/o chronic abdominal pain Gastroparesis s/p J-tube placement Constipation Concern for dislodged G-tube/likely J-tube balloon compromised --CT ABD:. No acute infectious or inflammatory findings are identified in the abdomen or pelvis. There is a 3.2 cm dominant follicle in the right ovary and free fluid in the cul-de-sac. This may represent a ruptured ovarian cyst. Correlate clinically. --Repeat CT ABD:No bowel wall thickening or obstruction. Decrease in size in the now 2.8 cm right ovarian follicle/cyst with improvement in the pelvic free fluid.. Prior hysterectomy. Mild to moderate fecal retention. Cautious use of narcotics Gentle IV fluids as needed Continue PPI Bowel regimen to prevent constipation Discussed with GRAIN [employer] YEAST PL[employer]S SUPERVISOR Dr. Rowley: Reviewed CT, conservative management for ovarian cyst Appreciate surgery input: Can continue tube feeds. Stool studies to rule out C. difficile if recurrence of diarrhea No improvement of abdominal pain currently J-tube balloon compromised/dislodgment CT as above Appreciate surgery input Given worsening abdominal pain, patient needs J-tube exchange IR/Surgery at [facility] unable to perform required procedure Transferred to [facility] for G-tube exchange. Dr. Michael Redding accepted the patient for further management COVID-19 infection --CXR:No active disease in the chest. 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 DVT Px: Lovenox SQ CODE STATUS Full code Disposition [facility] Admission and Anticipated Discharge Date Admission Date: January 01, 2024 Subjective Patient is seen and examined at bedside States having worsening abdominal pain Discussed with surgery today Denies any nausea, vomiting, dyspnea, dizziness today Due to balloon compromised, patient prefers to be transferred to tertiary facility for J-tube exchange Review of Systems Review of Systems: All systems reviewed & are unremarkable except as noted in Subjective Physical Exam Physical Exam: Physical Exam: Vitals signs as noted above General Appearance:Moderately built and nourished, no apparent distress Head: normocephalic, Atraumatic Eyes: normal inspection, EOMI Neck: supple, Trachea midline Respiratory/Chest: Normal breath sounds, CTA, No accessory muscle use Cardiovascular: S1, S2, No murmur Abdomen/GI:Soft, +generalized tender, + voluntary guarding,+ J Tube, bowel sounds present Extremities/Musculoskeletal:normal inspection, no edema Neurologic/Psych:AAOX3, grossly no focal neurological deficits Skin: normal color, warm Results & Data Results & Data Vital Signs (Past 12 Hours) Vital Signs Temp Pulse Resp BP Pulse Ox O2 Del Method 01/04/24 15:00 36.9 C 68 15 114/68 97 Room Air 01/04/24 08:00 Room Air 01/04/24 07:58 36.7 C 68 17 103/67 99 Room Air Laboratory Results Short CBC 01/04/24 Range/Units 06:14 WBC 3.78 L (4.8-10.8) K/ul Hgb 13.0 (12.0-16.0) g/dl Hct 37.1 (37.0-47.0) % Plt Count 224 (130-400) K/uL BMP 01/04/24 06:14 Sodium 138 Potassium 3.6 Chloride 106 Carbon Dioxide 26 BUN 13 Creatinine 0.62 Glucose 89 Calcium 8.8
--- NOTE | 2024-01-04 15:24 | Discharge Summary ---
Date of Service January 04, 2024 Admission HPI Per Admitting Provider History obtained from patient and records. Medical history significant for history of VT, bronchial asthma, chronic abdominal pain, gastroparesis status post J tube placement, anxiety/mood disorder, endometriosis, ongoing vape use. Last [facility] confinement July 2023 for abdominal pain and dislodged J-tube. Patient discharged to [facility]. Multiple [facility] ER visits over the last few months. Patient experienced achy right lower quadrant pain yesterday. Some nausea and emesis. Usual BM. No hematuria or vaginal bleeding. No chest pain, no SOB, no headache, no nausea, no vomiting. Intractable discomfort at the ER. Medical History as above Surgical History : Appendectomy, vascular procedure, gastrostomy/cecostomy placement, hysterectomy Family History : Migraine, PUD, IBS, thyroid disease, endometriosis Personal/Social history : Ongoing vape use, occasional EtOH intake, disabled Admission Exam Per Admitting Provider GENERAL: uncomfortable, no respiratory distress SKIN: Normal color, warm HEENT: [place] palpebral conjunctivae, no ptosis, dry buccal mucosa NECK : Supple, no tenderness CHEST : CTA, no tenderness HEART : RRR, no obvious murmurs ABDOMEN: J-tube in place, some distention, right-sided abdominal tenderness EXTREMITIES : No LE swelling/tenderness, no other conspicuous deformities noted NEUROLOGIC : Coherent, no facial asymmetry, no other gross focality Principal Diagnosis Gastroparesis/abdominal pain J-tube malfunction COVID-19 infection Ruptured ovarian cyst Discharge Data Allergies Allergy/AdvReac Type Severity Reaction Status Date / Time metoclopramide [From Reglan] AdvReac Intermediate PSYCHO Verified 12/31/23 19:06 REACTIONS prochlorperazine AdvReac Intermediate Agitated Verified 12/31/23 19:06 [From Compazine] ondansetron [From Zofran] AdvReac Mild Flushing Verified 12/31/23 19:06 Consultations 12/31/23 21:13 ED Decision to Admit Stat 01/02/24 13:37 Consult General Surgery Routine 01/03/24 15:53 Burn CD for patient Routine Procedures Performed Laboratory Results WBC 3.78 K/ul (4.8-10.8) L 01/04/24 06:14 RBC 4.22 M/uL (4.20-5.40) 01/04/24 06:14 Hgb 13.0 g/dl (12.0-16.0) 01/04/24 06:14 Hct 37.1 % (37.0-47.0) 01/04/24 06:14 MCV 87.9 fL (80.0-100.0) 01/04/24 06:14 MCH 30.8 pg (25.0-34.0) 01/04/24 06:14 MCHC 35.0 g/dL (32.0-36.0) 01/04/24 06:14 RDW Std Deviation 38.9 fL (36.4-46.3) 01/04/24 06:14 RDW Coeff of Angy 12.0 % (11.5-14.5) 01/04/24 06:14 Plt Count 224 K/uL (130-400) 01/04/24 06:14 MPV 10.4 fL (9.4-12.4) 01/04/24 06:14 Immature Gran % (Auto) 0.5 % 01/04/24 06:14 Neut % (Auto) 36.2 % 01/04/24 06:14 Lymph % (Auto) 50.8 % 01/04/24 06:14 [place] % (Auto) 10.1 % 01/04/24 06:14 Eos % (Auto) 2.1 % 01/04/24 06:14 Baso % (Auto) 0.3 % 01/04/24 06:14 Neut # (Auto) 1.37 K/uL (1.40-6.50) L 01/04/24 06:14 Lymph # (Auto) 1.92 K/uL (1.20-3.40) 01/04/24 06:14 [place] # (Auto) 0.38 K/uL (0.11-0.59) 01/04/24 06:14 Eos # (Auto) 0.08 K/uL (0.00-0.50) 01/04/24 06:14 Baso # (Auto) 0.01 K/uL (0.00-0.20) 01/04/24 06:14 Immature Gran # (Auto) 0.02 K/uL (0.01-0.20) 01/04/24 06:14 RBC Morphology Unremarkable 01/02/24 05:38 PT 10.3 Seconds (9.0-12.0) 12/31/23 17:14 INR 0.9 (0.9-1.1) 12/31/23 17:14 Sodium 138 mmol/L (136-145) 01/04/24 06:14 Potassium 3.6 mmol/L (3.5-5.1) 01/04/24 06:14 Chloride 106 mmol/L (98-107) 01/04/24 06:14 Carbon Dioxide 26 mmol/L (21-32) 01/04/24 06:14 Anion Gap 6 (3-11) 01/04/24 06:14 BUN 13 mg/dl (6-23) 01/04/24 06:14 Creatinine 0.62 mg/dl (0.6-1.2) 01/04/24 06:14 Est Cr Clr Drug Dosing 132.8 ml/min 01/04/24 06:14 Est GFR ( Amer) 148.3 ml/min 01/04/24 06:14 Est GFR (Non-Af Amer) 128.0 ml/min 01/04/24 06:14 BUN/Creatinine Ratio 21.0 (10-20) H 01/04/24 06:14 Glucose 89 mg/dl (70-99(Fasting)) 01/04/24 06:14 Lactate 1.0 mmol/L (0.4-2.0) 12/31/23 17:14 Calcium 8.8 mg/dl (8.6-10.3) 01/04/24 06:14 Magnesium 1.8 mg/dl (1.7-2.4) 12/31/23 17:14 Total Bilirubin 0.2 mg/dl (0.2-1.0) 12/31/23 17:14 AST 16 U/L (13-39) 12/31/23 17:14 ALT 11 U/L (7-52) 12/31/23 17:14 Alkaline Phosphatase 74 U/L (34-104) 12/31/23 17:14 C-Reactive Protein < 0.50 mg/dl (0-0.5) 01/02/24 05:38 Total Protein 7.5 gm/dl (6.0-8.3) 12/31/23 17:14 Albumin 4.4 gm/dl (3.4-5.0) 12/31/23 17:14 Globulin 3.1 gm/dl (2.5-4.0) 12/31/23 17:14 Albumin/Globulin Ratio 1.4 (0.9-2) 12/31/23 17:14 Lipase 19 U/L (11-82) 12/31/23 17:14 Procalcitonin < 0.02 ng/ml (0-0.5) 01/02/24 05:38 HCG, Qual Negative (Negative) 12/31/23 17:14 Urine Color Yellow 12/31/23 20:25 Urine Appearance Clear (Clear) 12/31/23 20:25 Urine pH 7.0 (4.5-7.5) 12/31/23 20:25 Ur Specific [employer] 1.034 (1.000-1.030) H 12/31/23 20:25 Urine Protein Negative (Negative) 12/31/23 20:25 Urine Glucose (UA) Negative (Negative) 12/31/23 20:25 Urine Ketones Negative (Negative) 12/31/23 20:25 Urine Blood Negative (Negative) 12/31/23 20:25 Urine Nitrite Negative (Negative) 12/31/23 20:25 Urine Bilirubin Negative (Negative) 12/31/23 20:25 Urine Urobilinogen Negative (Negative) 12/31/23 20:25 Ur Leukocyte Esterase Negative (Negative) 12/31/23 20:25 Urine Opiates Screen Pos (Neg) H 01/01/24 01:20 U Codeine Confrm GC/MS NEGATIVE ng/mL (<50) 01/01/24 01:20 Ur Morphine (GC/MS) NEGATIVE ng/mL (<50) 01/01/24 01:20 Ur Hydrocodone (GC/MS) NEGATIVE ng/mL (<50) 01/01/24 01:20 Ur Norhydrocodone NEGATIVE ng/mL (<50) 01/01/24 01:20 Ur Noroxycodone 180 ng/mL (<50) H 01/01/24 01:20 Urine Oxycodone (GC/MS) 67 ng/mL (<50) H 01/01/24 01:20 U Oxymorphone GC/MS 444 ng/mL (<50) H 01/01/24 01:20 Ur Methadone, Qual Neg (Neg) 01/01/24 01:20 Ur Hydromorphone (GC/MS) 582 ng/mL (<50) H 01/01/24 01:20 Fentanyl Comments SEE NOTE 01/01/24 01:20 Drug Monitor Fentanyl DNR 01/01/24 01:20 Fentanyl Confirmation 0.5 ng/mL (<0.5) H 01/01/24 01:20 Drug Monitor Norfentanyl DNR 01/01/24 01:20 Urine Fentanyl Screen Pos (Neg) H 01/01/24 01:20 Ur Norfentanyl Confirm 7.6 ng/mL (<0.5) H 01/01/24 01:20 Urine Barbiturates Neg (Neg) 01/01/24 01:20 Ur Phencyclidine (PCP) Neg (Neg) 01/01/24 01:20 U Amphetamin/Meth Scrn Neg (Neg) 01/01/24 01:20 MDMA (Ecstasy) Screen Neg (Neg) 01/01/24 01:20 U Benzodiazepines Scrn Neg (Neg) 01/01/24 01:20 Ur Cocaine Metabolite Neg (Neg) 01/01/24 01:20 U Marijuana (THC) Screen Pos (Neg) H 01/01/24 01:20 U Marijuana THC Carboxy 1127 ng/mL (<5) H 01/01/24 01:20 Drug Screen Comment SEE NOTE 01/01/24 01:20 Toxicology Comment SEE NOTE 01/01/24 01:20 Drug Monitor Historic Res SEE NOTE 01/01/24 01:20 SARS-CoV-2 (PCR) POSITIVE (Negative) 01/01/24 09:40 Influenza Type A (PCR) Negative (Neg) 01/01/24 09:40 Influenza Type B (PCR) Negative (Neg) 01/01/24 09:40 RSV (RT-PCR) Negative (Neg) 01/01/24 09:40 Impressions Chest X-Ray 01/01/24 13:01 SINGLE VIEW CHEST CLINICAL HISTORY: Covid. FINDINGS: An AP, portable, upright chest radiograph is compared to study dated 09/23/2021. A right-sided central venous infusion port is in place. The cardiomediastinal silhouette is unremarkable. The lungs and pleural spaces are clear. No pneumothorax is seen. The bony thorax is grossly intact. Nipple piercings are noted. IMPRESSION: No active disease in the chest. ACT 112: Negative or not required by law. Electronically signed by: Long Donahue M.D. 01/01/2024 1:40 PM Abdomen/Pelvis CT 01/02/24 12:[address] WITHOUT CONTRAST CT DOSE: 988.14 mGy.cm HISTORY: Abdominal Pain TECHNIQUE: Multiaxial CT images of the abdomen and pelvis were performed without contrast. A dose lowering technique was utilized adhering to the principles of ALARA. COMPARISON STUDY: Abdomen and pelvis CT 12/31/2023. FINDINGS: The lung bases are clear. Mild motion artifact. No pneumoperitoneum. No pneumatosis. No acute fractures. Supraumbilical midline incision again noted. The unenhanced liver, gallbladder, pancreas, spleen, adrenal glands, and kidneys are unremarkable. No renal or ureteral stones. No hydronephrosis. No retroperitoneal lymphadenopathy. Normal caliber abdominal aorta. Mild mesenteric lymphadenitis, unchanged no pelvic lymphadenopathy. Normal bladder. Prior hysterectomy. Normal left ovary. There is decrease in size in the now 2.8 cm r ight ovarian follicle/cyst with improvement in the pelvic fluid. Suboptimal evaluation for bowel pathology due to the lack of intravenous and oral contrast. However, there is no definite bowel wall thickening or obstruction. A right- sided percutaneous jejunostomy tube is again noted. [id number] fecal retention. IMPRESSION: 1. No bowel wall thickening or obstruction. 2. Decrease in size in the now 2.8 cm right ovarian follicle/cyst with improvement in the pelvic free fluid. 3. Prior hysterectomy. 4. Mild to moderate fecal retention. ACT 112: Negative or not required by law. Electronically signed by: Elkin Rai M.D. 01/02/2024 1:57 PM KUB X-Ray 01/03/24 13:53 KUB CLINICAL HISTORY: Constipation. FINDINGS: An AP, portable, supine abdominal radiograph is compared to abdominal x-ray and CT dated 01/02/2024. A percutaneous jejunostomy tube is in place. No bowel obstruction is seen. Residual enteric contrast is seen throughout the colon. There is mild colonic fecal retention. No evidence of intraperitoneal free air is identified on this supine image. There are no abnormal abdominal calcifications. A surgical clip projects over the right pelvis. The bony structures appear intact. IMPRESSION: No acute abnormality. Electronically signed by: Long Donahue M.D. 01/03/2024 2:47 PM Ordered Studies 12/31/23 16:51 CT abd pelvis IV con only Stat 01/02/24 12:57 CT abd pelvis wo con Urgent Hospital Course (1) Intractable abdominal pain: Abdominal pain Secondary to ruptured ovarian cyst H/o chronic abdominal pain Gastroparesis s/p J-tube placement Constipation Concern for dislodged G-tube/likely J-tube balloon compromised --CT ABD:. No acute infectious or inflammatory findings are identified in the abdomen or pelvis. There is a 3.2 cm dominant follicle in the right ovary and free fluid in the cul-de-sac. This may represent a ruptured ovarian cyst. Correlate clinically. --Repeat CT ABD:No bowel wall thickening or obstruction. Decrease in size in the now 2.8 cm right ovarian follicle/cyst with improvement in the pelvic free fluid.. Prior hysterectomy. Mild to moderate fecal retention. Cautious use of narcotics Gentle IV fluids as needed Continue PPI Bowel regimen to prevent constipation Discussed with [facility] [facility] Dr. Rowley: Reviewed CT, conservative management for ovarian cyst Appreciate surgery input: Can continue tube feeds. Stool studies to rule out C. difficile if recurrence of diarrhea No improvement of abdominal pain currently J-tube balloon compromised/dislodgment CT as above Appreciate surgery input Given worsening abdominal pain, patient needs J-tube exchange IR/Surgery at [facility] unable to perform required procedure Transferred to [facility] for G-tube exchange. Dr. Michael Redding accepted the patient for further management COVID-19 infection --CXR:No active disease in the chest. 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 Total Time Total Time Spent Total Time Spent (In Minutes): 53 minutes Discharge Plan Discharge Items Patient Disposition: Transfer Acute Care Hospital Reason For Visit: ABD PAIN Discharge Diagnosis: Gastroparesis/abdominal pain J-tube malfunction COVID-19 infection Ruptured ovarian cyst Activity: Per Instructions section Exercise/Sports: Wait until after follow-up appointment Non-emergency contact: Primary Care Provider Call non-emergency contact if: you have any medication questions, your symptoms worsen, your pain is concerning for you and you have a fever Follow-up/Referrals: Kinjal Reynoso PA-C [Primary Care Provider] - Diet: Other - See Diet Comment Diet Comment: J tube feeds Addtl Attending Provider Instructions: Follow-up with with Dr. Michael Redding at [facility] for further management Follow-up with your primary care physician upon discharge from the hospital. Seek immediate medical attention if your symptoms reoccur or worsen Please take all medications as instructed on discharge list below. Please call if you have any questions or problems. You can reach a [facility] hospitalist on duty at [facility] 24 hours a day by calling [phone] [employer] Provider Instructions: Date of Service: January 04, 2024 Current Inpatient Medications Acetaminophen (Acetaminophen Susp 325 Mg/10.15 Ml Udc) 650 mg PEG Q6H PRN PRN Reason: pain/fever Stop: 01/30/24 21:51 Last Admin: 01/04/24 13:56 Dose: 650 mg Albuterol (Albuterol Hfa 8 Gm Inhaler) 2 puffs INH Q6H PRN PRN Reason: Shortness Of Breath Or Wheezing Stop: 01/31/24 13:14 Capsaicin (Capsaicin Cr 0.075% 60 Gm Tube) 1 appln EXT DAILY PRN PRN Reason: Abd Pain Stop: 02/01/24 12:57 Docusate Sodium (Docusate Sodium 100 Mg Cap) 100 mg PO BID PRN PRN Reason: Constipation Stop: 02/01/24 14:49 Enoxaparin Sodium (Enoxaparin Inj 40 Mg/0.4 Ml Syr) 40 mg SQ QAM CARLOS Stop: 01/31/24 08:59 Last Admin: 01/04/24 08:04 Dose: Not Given Enteral Nutritional Formula (Peptamen 1.5 Donald 1,000 Ml Bag) 1,000 ml JT Q24H CARLOS; Protocol Stop: 01/31/24 10:44 Last Admin: 01/04/24 10:54 Dose: 1,000 ml Gabapentin (Gabapentin 250 Mg/5 Ml 470 Ml Btl) 300 mg PEG TID CARLOS Stop: 01/30/24 21:49 Last Admin: 01/04/24 13:55 Dose: 300 mg Heparin Sodium (Porcine) (Heparin 100 Unit/Ml 5ml Flush) 5 ml FLUSH PRN PRN PRN Reason: Flush Stop: 01/31/24 05:46 Last Admin: 01/03/24 17:41 Dose: 5 ml Promethazine HCl 12.5 mg/ (Sodium Chloride) 50.5 mls @ 202 mls/hr IV Q6H PRN PRN Reason: Nausea And Vomiting Stop: 01/30/24 21:24 Last Infusion: 01/01/24 16:12 Dose: Infused Lorazepam 0.25 mg/ Syringe 0.25 mls @ 2 mls/min IV Q8H PRN PRN Reason: Anxiety/Agitation Stop: 01/30/24 21:50 Famotidine (Pepcid 20mg Iv Push) 20 mg in 5 mls @ 2.5 mls/min IV Q12H CARLOS Stop: 02/01/24 20:59 Last Admin: 01/04/24 08:05 Dose: 2.5 mls/min Ketorolac Tromethamine (Ketorolac Tromethamine 15 Mg/Ml Vial) 10 mg IV Q8H PRN PRN Reason: Pain Stop: 01/05/24 14:44 Last Admin: 01/04/24 08:14 Dose: 10 mg Lansoprazole (Lansoprazole 15 Mg Soltab) 15 mg PO DAILY PRN PRN Reason: Acid Reflux Stop: 01/30/24 21:54 Ondansetron HCl (Ondansetron Inj 2 Mg/Ml 2 Ml Vial) 4 mg IV Q6H PRN PRN Reason: Nausea And Vomiting Stop: 02/02/24 13:46 Last Admin: 01/04/24 15:07 Dose: 4 mg Oxycodone HCl (Oxycodone Hcl Ir 5 Mg Tab (Immediate Release)) 10 mg PEG Q4H PRN PRN Reason: Pain Stop: 01/14/24 21:47 Last Admin: 01/04/24 15:07 Dose: 10 mg Polyethylene Glycol (Polyethylene (Miralax) 17 Gm Pack) 17 gm PEG DAILY PRN PRN Reason: Constipation Stop: 01/30/24 21:47 Sterile Water (Tube Feeding Water Flush) 150 ml JT Q4H CARLOS Stop: 02/02/24 13:59 Last Admin: 01/04/24 13:55 Dose: 150 ml Pending Studies at Discharge: No Stand-Alone Forms: My [facility] [employer] Skilled Items Patient informed of condition?: Yes DNR: No Discharge Level of Care: Other Communicable Disease: No Discharge Prognosis: Stable Lines: None Urinary Catheter: No Medications and DC Order Prescriptions: New albuterol sulfate [Ventolin HFA] 90 mcg/actuation Hfa Aerosol Inhaler 2 puff inhalation Q6H PRN (Reason: shortness of breath or wheezing) Qty: 6.7 0RF Continued acetaminophen [Children's Acetaminophen] 160 mg/5 mL suspension 0 mg feeding tube BID PRN (Reason: Pain) Rx Instructions: Dose 31.2 ml nutritional supplements Liquid 0 ea feeding tube DIRECTED Rx Instructions: 1,000 ml daily promethazine 25 mg tablet 25 mg feeding tube Q6 PRN (Reason: Nausea) lansoprazole 15 mg capsule,delayed release(DR/EC) 15 mg PO DAILY PRN (Reason: Acid Reflux) gabapentin 300 mg capsule 300 mg feeding tube TID PRN (Reason: Pain) polyethylene glycol 3350 [Miralax] 17 gram/dose Powder 17 g feeding tube DAILY PRN (Reason: Constipation) oxycodone 5 mg Tablet 5 mg feeding tube Q6H PRN (Reason: Pain) naloxone 4 mg/actuation spray,non-aerosol 1 spray INTRANASAL DIRECTED PRN (Reason: .Opiod od) Discharge Orders: Discharge Order (Routine); Ordered 01/04/24 Ordered By: Lazarus Alston Admission Data Admit Date/Time: 01/01/24 14:22 Attending Provider: Lazarus Alston Admit Provider: Tex Manzanares Primary Care Provider: Kinjal Reynoso Other Providers: Tex Manzanares; Josep Fernandez; Fredy Leong; Radha Hi; Get Macario; Carlos Hidalgo; Mckenna Mcqueen Jessica; Rolo Durant Jr; Renetta Medina; Kulwinder Pop; Yasmin Tilley
[2024-01-04] MEDS: SODIUM CHLORIDE 0.9% 1,000 ML IV SCH (17:09)
[2024-01-04] MEDS: LACTATED RINGER'S 1,000 ML IV ONE (20:54)
[2024-01-05] MEDS: ACETAMINOPHEN 1,000 MG/100 ML VIAL IV STA (01:56)
[2024-01-05] MEDS: ACETAMINOPHEN 1000 MG/100 ML IV IV ONE (02:35)
[2024-01-05 09:27] LABS: BUN Creatinine Ratio 16.2 (10-20); Calcium 9.3 mg/dl (8.6-10.3); Creatinine Clr Calc Pharmacy 121.1 ml/min; Est GFR (African American) 143.9 ml/min; Est GFR (Non-African American) 124.2 ml/min; Potassium 3.8 mmol/L (3.5-5.1)
[2024-01-05] MEDS ORDERED: MoRPHine SULFATE 10 MG/ML CARP/VIAL ONE (16:07)
--- NOTE | 2024-01-05 16:22 | Discharge Summary ---
Date of Service January 05, 2024 Admission HPI Per Admitting Provider History obtained from patient and records. Medical history significant for history of VT, bronchial asthma, chronic abdominal pain, gastroparesis status post J tube placement, anxiety/mood disorder, endometriosis, ongoing vape use. Last [facility] confinement July 2023 for abdominal pain and dislodged J-tube. Patient discharged to [facility] [place]. Multiple [facility] ER visits over the last few months. Patient experienced achy right lower quadrant pain yesterday. Some nausea and emesis. Usual BM. No hematuria or vaginal bleeding. No chest pain, no SOB, no headache, no nausea, no vomiting. Intractable discomfort at the ER. Medical History as above Surgical History : Appendectomy, vascular procedure, gastrostomy/cecostomy placement, hysterectomy Family History : Migraine, PUD, IBS, thyroid disease, endometriosis Personal/Social history : Ongoing vape use, occasional EtOH intake, disabled Admission Exam Per Admitting Provider GENERAL: uncomfortable, no respiratory distress SKIN: Normal color, warm HEENT: Herbst palpebral conjunctivae, no ptosis, dry buccal mucosa NECK : Supple, no tenderness CHEST : CTA, no tenderness HEART : RRR, no obvious murmurs ABDOMEN: J-tube in place, some distention, right-sided abdominal tenderness EXTREMITIES : No LE swelling/tenderness, no other conspicuous deformities noted NEUROLOGIC : Coherent, no facial asymmetry, no other gross focality Principal Diagnosis Gastroparesis/abdominal pain J-tube malfunction COVID-19 infection Ruptured ovarian cyst Discharge Exam Patient left the hospital before patient was seen. Patient was accepted to [facility]. Her discharge was delayed yesterday due to unavailability of transportation. Discharge Data Allergies Allergy/AdvReac Type Severity Reaction Status Date / Time metoclopramide [From Reglan] AdvReac Intermediate PSYCHO Verified 12/31/23 19:06 REACTIONS prochlorperazine AdvReac Intermediate Agitated Verified 12/31/23 19:06 [From Compazine] ondansetron [From Zofran] AdvReac Mild Flushing Verified 12/31/23 19:06 Consultations 12/31/23 21:13 ED Decision to Admit Stat 01/02/24 13:37 Consult General Surgery Routine 01/03/24 15:53 Burn CD for patient Routine Ordered Studies 12/31/23 16:51 CT abd pelvis IV con only Stat 01/02/24 12:57 CT abd pelvis wo con Urgent Hospital Course (1) Intractable abdominal pain: Abdominal pain Secondary to ruptured ovarian cyst H/o chronic abdominal pain Gastroparesis s/p J-tube placement Constipation Concern for dislodged G-tube/likely J-tube balloon compromised --CT ABD:. No acute infectious or inflammatory findings are identified in the abdomen or pelvis. There is a 3.2 cm dominant follicle in the right ovary and free fluid in the cul-de-sac. This may represent a ruptured ovarian cyst. Correlate clinically. --Repeat CT ABD:No bowel wall thickening or obstruction. Decrease in size in the now 2.8 cm right ovarian follicle/cyst with improvement in the pelvic free fluid.. Prior hysterectomy. Mild to moderate fecal retention. Cautious use of narcotics Gentle IV fluids as needed Continue PPI Bowel regimen to prevent constipation Discussed with COMPUTER REPAIRER Dr. Rowley: Reviewed CT, conservative management for ovarian cyst Appreciate surgery input: Can continue tube feeds. Stool studies to rule out C. difficile if recurrence of diarrhea No improvement of abdominal pain currently J-tube balloon compromised/dislodgment CT as above Appreciate surgery input Given worsening abdominal pain, patient needs J-tube exchange IR/Surgery at [facility] unable to perform required procedure Transferred to [facility] for G-tube exchange. Dr. Michael Redding accepted the patient for further management COVID-19 infection --CXR:No active disease in the chest. 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 Patient was transported on January 05, 2024 on 9 am prior to being seen. Total Time Total Time Spent Total Time Spent (In Minutes): 5 Total Time Includes: Examination of the Patient, Discharge Planning, Medication Reconciliation, Communication With Other Providers and Other Discharge Plan Discharge Items Patient Disposition: Transfer Acute Care Hospital Reason For Visit: ABD PAIN Discharge Diagnosis: Gastroparesis/abdominal pain J-tube malfunction COVID-19 infection Ruptured ovarian cyst Activity: Per Instructions section Exercise/Sports: Wait until after follow-up appointment Non-emergency contact: Primary Care Provider Call non-emergency contact if: you have any medication questions, your symptoms worsen, your pain is concerning for you and you have a fever Follow-up/Referrals: Kinjal Reynoso PA-C [Primary Care Provider] - Diet: Other - See Diet Comment Diet Comment: J tube feeds Addtl Attending Provider Instructions: Follow-up with with Dr. Michael Redding at [facility] for further management Follow-up with your primary care physician upon discharge from the hospital. Seek immediate medical attention if your symptoms reoccur or worsen Please take all medications as instructed on discharge list below. Please call if you have any questions or problems. You can reach a [facility] hospitalist on duty at [facility] 24 hours a day by calling [phone] Christian Scientist/Engineer Provider Instructions: Date of Service: January 04, 2024 Current Inpatient Medications Acetaminophen (Acetaminophen Susp 325 Mg/10.15 Ml Udc) 650 mg PEG Q6H PRN PRN Reason: pain/fever Stop: 01/30/24 21:51 Last Admin: 01/04/24 13:56 Dose: 650 mg Albuterol (Albuterol Hfa 8 Gm Inhaler) 2 puffs INH Q6H PRN PRN Reason: Shortness Of Breath Or Wheezing Stop: 01/31/24 13:14 Capsaicin (Capsaicin Cr 0.075% 60 Gm Tube) 1 appln EXT DAILY PRN PRN Reason: Abd Pain Stop: 02/01/24 12:57 Docusate Sodium (Docusate Sodium 100 Mg Cap) 100 mg PO BID PRN PRN Reason: Constipation Stop: 02/01/24 14:49 Enoxaparin Sodium (Enoxaparin Inj 40 Mg/0.4 Ml Syr) 40 mg SQ QAM CARLOS Stop: 01/31/24 08:59 Last Admin: 01/04/24 08:04 Dose: Not Given Enteral Nutritional Formula (Peptamen 1.5 Donald 1,000 Ml Bag) 1,000 ml JT Q24H [facility]; Protocol Stop: 01/31/24 10:44 Last Admin: 01/04/24 10:54 Dose: 1,000 ml Gabapentin (Gabapentin 250 Mg/5 Ml 470 Ml Btl) 300 mg PEG TID CARLOS Stop: 01/30/24 21:49 Last Admin: 01/04/24 13:55 Dose: 300 mg Heparin Sodium (Porcine) (Heparin 100 Unit/Ml 5ml Flush) 5 ml FLUSH PRN PRN PRN Reason: Flush Stop: 01/31/24 05:46 Last Admin: 01/03/24 17:41 Dose: 5 ml Promethazine HCl 12.5 mg/ (Sodium Chloride) 50.5 mls @ 202 mls/hr IV Q6H PRN PRN Reason: Nausea And Vomiting Stop: 01/30/24 21:24 Last Infusion: 01/01/24 16:12 Dose: Infused Lorazepam 0.25 mg/ Syringe 0.25 mls @ 2 mls/min IV Q8H PRN PRN Reason: Anxiety/Agitation Stop: 01/30/24 21:50 Famotidine (Pepcid 20mg Iv Push) 20 mg in 5 mls @ 2.5 mls/min IV Q12H CARLOS Stop: 02/01/24 20:59 Last Admin: 01/04/24 08:05 Dose: 2.5 mls/min Ketorolac Tromethamine (Ketorolac Tromethamine 15 Mg/Ml Vial) 10 mg IV Q8H PRN PRN Reason: Pain Stop: 01/05/24 14:44 Last Admin: 01/04/24 08:14 Dose: 10 mg Lansoprazole (Lansoprazole 15 Mg Soltab) 15 mg PO DAILY PRN PRN Reason: Acid Reflux Stop: 01/30/24 21:54 Ondansetron HCl (Ondansetron Inj 2 Mg/Ml 2 Ml Vial) 4 mg IV Q6H PRN PRN Reason: Nausea And Vomiting Stop: 02/02/24 13:46 Last Admin: 01/04/24 15:07 Dose: 4 mg Oxycodone HCl (Oxycodone Hcl Ir 5 Mg Tab (Immediate Release)) 10 mg PEG Q4H PRN PRN Reason: Pain Stop: 01/14/24 21:47 Last Admin: 01/04/24 15:07 Dose: 10 mg Polyethylene Glycol (Polyethylene (Miralax) 17 Gm Pack) 17 gm PEG DAILY PRN PRN Reason: Constipation Stop: 01/30/24 21:47 Sterile Water (Tube Feeding Water Flush) 150 ml JT Q4H CARLOS Stop: 02/02/24 13:59 Last Admin: 01/04/24 13:55 Dose: 150 ml Pending Studies at Discharge: No Stand-Alone Forms: My [facility] [employer] Skilled Items Patient informed of condition?: Yes DNR: No Discharge Level of Care: Other Communicable Disease: No Discharge Prognosis: Stable Lines: None Urinary Catheter: No Medications and DC Order Prescriptions: New albuterol sulfate [Ventolin HFA] 90 mcg/actuation Hfa Aerosol Inhaler 2 puff inhalation Q6H PRN (Reason: shortness of breath or wheezing) Qty: 6.7 0RF Continued acetaminophen [Children's Acetaminophen] 160 mg/5 mL suspension 0 mg feeding tube BID PRN (Reason: Pain) Rx Instructions: Dose 31.2 ml nutritional supplements Liquid 0 ea feeding tube DIRECTED Rx Instructions: 1,000 ml daily promethazine 25 mg tablet 25 mg feeding tube Q6 PRN (Reason: Nausea) lansoprazole 15 mg capsule,delayed release(DR/EC) 15 mg PO DAILY PRN (Reason: Acid Reflux) gabapentin 300 mg capsule 300 mg feeding tube TID PRN (Reason: Pain) polyethylene glycol 3350 [Miralax] 17 gram/dose Powder 17 g feeding tube DAILY PRN (Reason: Constipation) oxycodone 5 mg Tablet 5 mg feeding tube Q6H PRN (Reason: Pain) naloxone 4 mg/actuation spray,non-aerosol 1 spray INTRANASAL DIRECTED PRN (Reason: .Opiod od) Discharge Orders: Discharge Order (Routine); Ordered 01/05/24 Ordered By: Matti Pérez Admission Data Admit Date/Time: 01/01/24 14:22 Attending Provider: Matti Pérez Admit Provider: Tex Manzanares Primary Care Provider: Kinjal Reynoso Other Providers: Tex Manzanares; Josep Fernandez; Fredy Leong; Radha Hi; Get Macario; Carlos Hidalgo; Mckenna Mcqueen; Vicki Powers; Rolo Durant Jr; Renetta Medina; Kulwinder Pop; Yasmin Tilley Other Interventions: Discharge Summary Assessment (RN) Last Done: 01/04/24 18:19
== END 2024-01-05 10:31 | disposition short-term general hospital (02) | DRG 760 ==
LOC: 3N 16:43 → ED 16:43 → 3N 20:00 → 3E 01-01 12:17 → SUATTDRO 01-01 14:22

== ENCOUNTER 2024-01-10 11:40 | Observation (INO) ==
[2024-01-10] MEDS ORDERED: POLYETHYLENE (MIRALAX) 17 GM PACK PO PRN (13:02)
[2024-01-10] MEDS ORDERED: ONDANSETRON INJ 2 MG/ML 2 ML VIAL IV PRN (13:02)
[2024-01-10] MEDS ORDERED: ACETAMINOPHEN 325 MG TAB PO PRN (13:02)
[2024-01-10] MEDS ORDERED: PROMETHAZINE HCL 12.5 MG in SODIUM CHLORIDE 0.9% 50 ML IV PRN (22:44)
[2024-01-10 22:56] LABS: Basophils # (auto) 0.02 K/uL (0.00-0.20); Basophils % (auto) 0.3 %; Eosinophils # (auto) 0.05 K/uL (0.00-0.50); Eosinophils % (auto) 0.7 %; Hemoglobin 12.3 g/dl (12.0-16.0); Immature Granulocytes # (auto) 0.02 K/uL (0.01-0.20); Immature Granulocytes % (auto) 0.3 %; Lymphocytes # (auto) 3.08 K/uL (1.20-3.40); Lymphocytes % (auto) 42.8 %; Mean Corpuscular Hemoglobin 30.8 pg (25.0-34.0); Mean Corpuscular Hgb Conc 35.1 g/dL (32.0-36.0); Mean Corpuscular Volume 87.7 fL (80.0-100.0); Mean Platelet Volume 10.2 fL (9.4-12.4); Monocytes # (auto) 0.35 K/uL (0.11-0.59); Monocytes % (auto) 4.9 %; Neutrophils # (auto) 3.68 K/uL (1.40-6.50); Platelet Count 274 K/uL (130-400); RDW Coefficient of Variation 11.9 % (11.5-14.5); RDW Standard Deviation 38.4 fL (36.4-46.3); Red Blood Count 3.99 M/uL (4.20-5.40)
[2024-01-10] MEDS: D5W AND 1/2NSS 1,000 ML IV SCH (23:11)
[2024-01-10 23:14] LABS: Albumin Globulin Ratio 1.4 (0.9-2); BUN Creatinine Ratio 9.4 (10-20); Bilirubin,Total 0.3 mg/dl (0.2-1.0); Creatinine Clr Calc Pharmacy 129.1 ml/min; Est GFR (African American) 146.8 ml/min; Est GFR (Non-African American) 126.7 ml/min; Globulin 2.8 gm/dl (2.5-4.0); Potassium 3.6 mmol/L (3.5-5.1); Total Protein 6.8 gm/dl (6.0-8.3)
[2024-01-10] MEDS ORDERED: AMOXICILLIN/CLAVULANATE SUSP 400/57 MG 5 ML UDP PO SCH (23:15)
[2024-01-10] MEDS ORDERED: oxyCODONE HCL SOLN 5 MG/5 ML UDC PO SCH (23:15)
--- NOTE | 2024-01-10 23:46 | History & Physical Report ---
Date of Service January 10, 2024 Assessment & Plan (1) Abdominal pain: Plan: 23-year-old female with past medical history significant for ovarian cystic mass, malfunction of jejunostomy tube, GERD, gastroparesis dysmenorrhea, postconcussion syndrome, chronic abdominal pain, chronic female pelvic pain, medical marijuana use, adjustment disorder with depression, PTSD, chronic continuous use of opioids, anxiety disorder, ongoing vape use was recently transferred from [facility] to [facility] [place] for J-tube exchange. Patient was admitted to our service from 12/30 to 01/02 for abdominal pain in setting of gastroparesis with J-tube dislodgment. IR/surgery at [facility] was unable to perform the procedure so was transferred to [facility] for J-tube exchange which occurred on 01/06. Per signout from [facility] [place] seems patient has not had vomiting since J tube exchange but still has pain and nausea with tube feeds. Has minimal p.o. intake. Was treated with Unasyn and currently on Augmentin for possible site infection. Vital stable and labs ok prior to transfer here. And pain has been controlled with home oxycodone 5 mg p.o. every 6 hours as needed Tylenol and naproxen. Patient resting comfortably. States still has some back pain and abdominal pain and nausea. States not tolerating tube feeds well.Can eat some by mouth but mostly vomiting. Denies fever. Has diarrhea. Normal bladder movements. No chest pain or shortness of breath. Has some headache because of poor oral intake. No runny nose or sore throat. No cough. No fevers. Abdominal pain Ongoing Gastroparesis s/p J-tube placement Recently transferred to [facility] as J-tube was dislodged, for exchange and was done on 01/06 . Transferred back to us today Currently no vomiting but still very nauseous and not tolerating tube feeds well [place] was given Unasyn for site infection and was placed on Augmentin at discharge which will be continued for now Will keep her n.p.o., IV fluids IV, IV antiemetics Continue home pain medications as needed Nutrition consult in a.m. GI consult in a.m. for further recommendations History of endometriosis S/p hysterectomy as per records DVT prophylaxis Lovenox Disposition Medical floor Full code. Admission and Anticipated Discharge Date Admission Date: January 10, 2024 History of Present Illness Chief Complaint: Abdominal pain Primary Care Provider: Kinjal Reynoso PA-C 23-year-old female with past medical history significant for ovarian cystic mass, malfunction of jejunostomy tube, GERD, gastroparesis dysmenorrhea, postconcussion syndrome, chronic abdominal pain, chronic female pelvic pain, medical marijuana use, adjustment disorder with depression, PTSD, chronic continuous use of opioids, anxiety disorder, ongoing vape use was recently transferred from [facility] to [facility] [place] for J-tube exchange. Patient was admitted to our service from 12/30 to 01/02 for abdominal pain in setting of gastroparesis with J-tube dislodgment. IR/surgery at [facility] was unable to perform the procedure so was transferred to [facility] for J-tube exchange which occurred on 01/06. Per signout from [facility] [place] seems patient has not had vomiting since J tube exchange but still has pain and nausea with tube feeds. Has minimal p.o. intake. Was treated with Unasyn and currently on Augmentin for possible site infection. Vital stable and labs ok prior to transfer here. And pain has been controlled with home oxycodone 5 mg p.o. every 6 hours as needed Tylenol and naproxen. Patient resting comfortably. States still has some back pain and abdominal pain and nausea. States not tolerating tube feeds well.Can eat some by mouth but mostly vomiting. Denies fever. Has diarrhea. Normal bladder movements. No chest pain or shortness of breath. Has some headache because of poor oral intake. No runny nose or sore throat. No cough. No fevers. Past medical history. As mentioned above Past surgical history. Appendectomy. Colonoscopy and EGD. IR gastrointestinal ostomy. IR tube replacement. Laparoscopic hysterectomy. S/p J tube placement. Social history. No smoking. Alcohol occasional. No drug use. Family history. Father had gastric ulcer. Mother has irritable bowel syndrome. Migraines. Maternal grandmother had hypertension. Paternal grandmother had thyroid disorder. Allergies Allergy/AdvReac Type Severity Reaction Status Date / Time metoclopramide [From Reglan] AdvReac Intermediate PSYCHO Verified 12/31/23 19:06 REACTIONS prochlorperazine AdvReac Intermediate Agitated Verified 12/31/23 19:06 [From Compazine] ondansetron [From Zofran] AdvReac Mild Flushing Verified 12/31/23 19:06 Home Medications Medication Instructions Recorded Confirmed Type L.acidophilus-B.animalis-B.longum 1 cap PO DAILY 01/10/24 01/10/24 History 15 billion cell capsule (Florajen Digestion) acetaminophen 325 mg tablet 625 mg PO QID PRN Mild Pain (Scale 01/10/24 01/10/24 History (Tylenol) Score 1-4) amoxicillin 400 mg-potassium 5 ml PO BID 01/10/24 01/10/24 History clavulanate 57 mg/5 mL oral suspension lansoprazole 15 mg capsule,delayed 30 mg PO DAILY 01/10/24 01/10/24 History release naproxen 375 mg tablet 375 mg PO BID 01/10/24 01/10/24 History norethindrone acetate 5 mg tablet 5 mg PO DAILY 01/10/24 01/10/24 History ondansetron 4 mg disintegrating 4 mg PO TID PRN Nausea And Vomiting 01/10/24 01/10/24 History tablet oxycodone 5 mg/5 mL oral solution 5 mg PO Q4 PRN Pain (Scale Score 01/10/24 01/10/24 History 7-10) Past Med/Surg History Problem List (Updated 01/04/24 @ 07:40 by Lazarus Alston MD) Gastroparesis Rupture of cyst of right ovary (Acute) Intractable abdominal pain (Acute) Abdominal pain (Acute) Dislodged jejunostomy tube (Acute) Adjustment disorder with mixed anxiety and depressed mood Nausea & vomiting Chronic female pelvic pain (Acute) Mood disorder (Acute) Endometriosis (Chronic) Chest pain (Acute) Internal hemorrhage (Acute) No known health problems (Chronic) Medical History Chronic abdominal pain Non-cardiac chest pain Surgical History H/O: hysterectomy Social History Smoking Status: Never smoker Tobacco Type: E-cigarettes / Vaping Second Hand Exposure: No; Do You Dip or Chew Tobacco: No; Tobacco Cessation Education Requested by Patient: No Hx Alcohol Use: No Hx Substance Use: No Preferred Language: Frisian Communication Ability: Effective 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 Lungs- clear to auscultation no wheezing or crackles Heart- regular rhythm; no murmur, no gallop Abdomen- normal bowel sounds, soft, mild diffuse discomfort, J tube site no erythema or drainage seen.No distension Extremities- no pretibial edema, no erythema seen. Neuro- alert, oriented EOMI; no facial palsy; no dysarthria; moves extremities Results & Data Results & Data Vital Signs (Past 12 Hours) Vital Signs Temp Pulse Resp BP Pulse Ox O2 Del Method 01/10/24 22:04 36.7 C 74 16 131/89 98 Room Air Diagnostic Findings Laboratory Results WBC 7.20 K/ul (4.8-10.8) 01/10/24 22:31 RBC 3.99 M/uL (4.20-5.40) L 01/10/24 22:31 Hgb 12.3 g/dl (12.0-16.0) 01/10/24 22:31 Hct 35.0 % (37.0-47.0) L 01/10/24 22:31 MCV 87.7 fL (80.0-100.0) 01/10/24 22:31 MCH 30.8 pg (25.0-34.0) 01/10/24 22:31 MCHC 35.1 g/dL (32.0-36.0) 01/10/24 22:31 RDW Std Deviation 38.4 fL (36.4-46.3) 01/10/24 22:31 RDW Coeff of Angy 11.9 % (11.5-14.5) 01/10/24 22:31 Plt Count 274 K/uL (130-400) 01/10/24 22:31 MPV 10.2 fL (9.4-12.4) 01/10/24 22:31 Immature Gran % (Auto) 0.3 % 01/10/24 22: Neut % (Auto) 51.0 % 01/10/24 22: Lymph % (Auto) 42.8 % 01/10/24 22: Tripp % (Auto) 4.9 % 01/10/24 22: Eos % (Auto) 0.7 % 01/10/24 22: Baso % (Auto) 0.3 % 01/10/24 22: Neut # (Auto) 3.68 K/uL (1.40-6.50) 01/10/24 22: Lymph # (Auto) 3.08 K/uL (1.20-3.40) 01/10/24 22: Tripp # (Auto) 0.35 K/uL (0.11-0.59) 01/10/24 22: Eos # (Auto) 0.05 K/uL (0.00-0.50) 01/10/24: Baso # (Auto) 0.02 K/uL (0.00-0.20) 01/10/24 22: Immature Gran # (Auto) 0.02 K/uL (0.01-0.20) 01/10/24 22:31 Sodium 139 mmol/L (136-145) 01/10/24 22: Potassium 3.6 mmol/L (3.5-5.1) 01/10/24 22: Chloride 107 mmol/L (98-107) 01/10/24 22: Carbon Dioxide 26 mmol/L (21-32) 01/10/24 22: Anion Gap 6 (3-11) 01/10/24 22:31 BUN 6 mg/dl (6-23) 01/10/24 22: Creatinine 0.64 mg/dl (0.6-1.2) 01/10/24 22: Est Cr Clr Drug Dosing 129.1 ml/min 01/10/24 22:31 Est GFR ( Amer) 146.8 ml/min 01/10/24 22: Est GFR (Non-Af Amer) 126.7 ml/min 01/10/24 22: BUN/Creatinine Ratio 9.4 (10-20) L 01/10/24 22:31 Glucose 83 mg/dl (70-99(Fasting)) 01/10/24 22:31 Calcium 9.0 mg/dl (8.6-10.3) 01/10/24 22:31 Total Bilirubin 0.3 mg/dl (0.2-1.0) 01/10/24 22:31 AST 13 U/L (13-39) 01/10/24 22:31 ALT 8 U/L (7-52) 01/10/24 22:31 Alkaline Phosphatase 65 U/L (34-104) 01/10/24 22:31 Total Protein 6.8 gm/dl (6.0-8.3) 01/10/24 22: Albumin 4.0 gm/dl (3.4-5.0) 01/10/24 22: Globulin 2.8 gm/dl (2.5-4.0) 01/10/24 22:31 Albumin/Globulin Ratio 1.4 (0.9-2) 01/10/24 22:31 Code Status & VTE Plan VTE Prophylaxis Plan VTE Prophylaxis will be ordered: Yes (1) Abdominal pain Abdominal location: unspecified location Qualified Code(s): R10.9 - Unspecified abdominal pain
[2024-01-10] MEDS: AMOXICILLIN/CLAVULANATE SUSP 400/57 MG 5 ML UDP PO SCH (23:47)
[2024-01-11] MEDS: oxyCODONE HCL SOLN 5 MG/5 ML UDC PO PRN ×2 (00:01→12:10)
[2024-01-11] MEDS: AMOXICILLIN/CLAVULANATE SUSP 400/57 MG 5 ML BTL PO SCH (00:02)
--- OUTSIDE RECORDS SUMMARY | 2024-01-11 05:02 | External Medical Summary | Summary of Care ---
Author Name Unknown Organization [facility] Address [address] [place] [address] Phone [phone] Care Team Providers Care Accounts Receivable Specialist Name Role Phone Kinjal Willis PA-C Primary Care Provider [phone] Reason for Visit * Reason Comments Medication Refill Encounter Details Date Type Department Care Team (Late st Contact Info) Description 01/06/2024 Refill [facility] [address] [facility] [place] [id number] Ace Leonard MD [address] [facility] [place] [phone] Gastroparesis; Chronic pelvic pain in female; Malfunction [...] as of this encounter (statuses as of 01/06/2024) Medications Medication Sig Dispensed Refills Start Date End Date Status Naloxone HCl 4 MG/0.1ML Nasal Liquid (Narcan Nasal)Indications:Ch ronic pelvic pain in female,MEDICATION USE AGREEMENT,Chronic abdominal pain ADMINISTER 1 SPRAY INTO 1 NOSTRIL FOR SUSPECTED OPIOID OVERDOSE - SEEK IMMEDIATE MEDICAL ATTENTION. [email or web address] 2 Each 3 03/31/2023 Active Polyethylene Glycol [...] as directed, through J-tube via feeding pump. 50706 mL 11 10/05/2023 Active Peptamen AF Oral Liquid Administer 1,000 mL over 12 hours into J tube 4 times a day. 07954 mL 11 09/30/2023 Active Enteral Feeding Piston [...] every night at bedtime. 120 Capsule 5 12/24/2023 Active oxyCODONE HCl 5 MG Oral Tablet (Oxy IR)Indications:Gastr oparesis,Chronic pelvic pain in female,Malfunction of jejunostomy tube (HCC) Take 1 Tablet by mouth every 8 hours as needed for Pain, Severe. DO NOT TAKE MORE THAN 3 DOSES A DAY. Rx must last 14 days 42 Tablet 12/28/2023 Active Albuterol Sulfate HFA 108 (90 Base) MCG/ACT Inhalation Aerosol Solution Inhale 2 puffs by mouth every 6 hours As Needed for shortness of breath or wheezing 8.5 g 01/04/2024 Active documented as of this encounter (statuses as of 01/06/2024) Active Problems Problem Noted Date Diagnosed Date [...] as of this encounter (statuses as of 01/06/2024) Resolved Problems Problem Noted Date Diagnosed Date [...] as of this encounter (statuses as of 01/06/2024) Immunizations Name Administration Dates Next Due DTaP [...] Miscellaneous Notes * Telephone Encounter - Kinjal Willis PA-C - 01/06/2024 10:17 PM EDTRefused Prescriptions: Disp Refills oxyCODONE HCl 5 MG Oral Tablet (Oxy IR) 42 Tab*0 Sig: Take 1 Tablet by mouth every 8 hours as needed for Pain, Severe. DO NOT TAKE MORE THAN 3 DOSES A DAY. Rx must last 14 days Refused By: KINJAL WILLIS Reason for Refusal: Too soon * Telephone Encounter - Gabriela López [facility] - 01/06/2024 3:35 PM EDTPending Prescriptions: Disp Refills oxyCODONE HCl 5 MG Oral Tablet (Oxy IR) 42 Tab*0 Sig: Take 1 Tablet by mouth every 8 hours as needed for Pain, Severe. DO NOT TAKE MORE THAN 3 DOSES A DAY. Rx must last 14 days * Telephone Encounter - Gabriela López RPh - 01/06/2024 3:34 PM EDT I have reviewed the patients controlled substance dispensing history in the Prescription Drug Monitoring Program in compliance with the [facility] regulations before prescribing a controlled substance. PDMP checked on 01/06/2024. Pending Prescriptions: Disp Refills oxyCODONE HCl 5 MG Oral Tablet (Oxy IR) 42 Tab*0 Sig: Take 1 Tablet by mouth every 8 hours as needed for Pain, Severe. DO NOT TAKE MORE THAN 3 DOSES A DAY. Rx must last 14 days Last Visit: 12/24/2023 (in office), 09/10/2022 (telemedicine) Next Visit: 03/25/2024 Date medication was last filled: 12/28/23 Date medication is due for refill: 01/10/24 Pharmacy: [facility] Is this [...] use. Confirmatory testing is available upon request. Amphetamines Screen, U Negative Benzodiazepines Screen, U [...] available upon request. Please approve if appropriate. Gabriela Melton Clinical Pharmacist [facility] ([facility]) [phone] 01/06/2024, 3:34 PM documented in this encounter Plan of Treatment Upcoming Encounters Date Type Department Care Team (Shaggy Contact Info) Description 03/25/2024 9:20 AM EDT Office Visit [facility] Jeff, Carol [address] [phone] Kinjal Willis PA-C [address] [phone] Health Maintenance Due Date Last Done Comments [...] encounter Medical Devices Implanted Type Area Wire Products Inspector Device Identifier Shelf Expiration Date Model / Serial / Lot Port Implant W/8f Poly Cath - [id number] Implanted:Qty : 1 on 05/18/2023 by Juan Jose Connell, at [facility] Right: Chest CR BARD : [employer]HER[employer] [id number] 11/18/2024 [id number] / / [id number] documented as of this encounter Visit Diagnoses [...] Advance Directives occurred with: Patient Care Teams Accounts Receivable Specialist Relationship Specialty Start Date End Date Kinjal Willis PA-C [address] [phone] PCP - General Physician Web Marketing Coordinator 11/05/22 documented as of this encounter
[2024-01-11 07:15] LABS: Basophils # (auto) 0.01 K/uL (0.00-0.20); Basophils % (auto) 0.2 %; Eosinophils # (auto) 0.07 K/uL (0.00-0.50); Eosinophils % (auto) 1.4 %; Hemoglobin 12.1 g/dl (12.0-16.0); Immature Granulocytes # (auto) 0.03 K/uL (0.01-0.20); Immature Granulocytes % (auto) 0.6 %; Lymphocytes % (auto) 37.7 %; Mean Corpuscular Hemoglobin 30.3 pg (25.0-34.0); Mean Corpuscular Hgb Conc 34.6 g/dL (32.0-36.0); Mean Corpuscular Volume 87.7 fL (80.0-100.0); Mean Platelet Volume 10.6 fL (9.4-12.4); Monocytes # (auto) 0.33 K/uL (0.11-0.59); Monocytes % (auto) 6.5 %; Neutrophils % (auto) 53.6 %; Platelet Count 267 K/uL (130-400); RDW Coefficient of Variation 11.9 % (11.5-14.5); RDW Standard Deviation 38.2 fL (36.4-46.3); Red Blood Count 3.99 M/uL (4.20-5.40); White Blood Count 5.04 K/ul (4.8-10.8)
[2024-01-11 07:28] LABS: Anion Gap 6 (3-11); BUN Creatinine Ratio 8.6 (10-20); Blood Urea Nitrogen 5 mg/dl (6-23); Calcium 8.9 mg/dl (8.6-10.3); Carbon Dioxide 26 mmol/L (21-32); Chloride 108 mmol/L (98-107); Creatinine Clr Calc Pharmacy 142.4 ml/min; Est GFR (African American) > 150.0 ml/min; Est GFR (Non-African American) 130.8 ml/min; Glucose 100 mg/dl (70-99(Fasting)); Potassium 3.6 mmol/L (3.5-5.1); Sodium 140 mmol/L (136-145)
[2024-01-11] MEDS: ADVANCED PROBIOTIC 625 MG CAPSULE PO SCH (08:48)
[2024-01-11] MEDS: ENOXAPARIN INJ 40 MG/0.4 ML SYR SQ SCH (08:48)
[2024-01-11] MEDS: LANSOPRAZOLE 30 MG SOLTAB PO SCH (08:48)
--- NOTE | 2024-01-11 09:47 | Hospitalist Progress Note ---
Date of Service January 11, 2024 Assessment & Plan (1) Abdominal pain: Plan: 23-year-old female with past medical history significant for ovarian cystic mass, malfunction of jejunostomy tube, GERD, gastroparesis dysmenorrhea, postconcussion syndrome, chronic abdominal pain, chronic female pelvic pain, medical marijuana use, adjustment disorder with depression, PTSD, chronic continuous use of opioids, anxiety disorder, ongoing vape use was recently transferred from [facility] to [facility] for J-tube exchange. Patient was admitted to our service from 12/30 to 01/02 for abdominal pain in setting of gastroparesis with J-tube dislodgment. IR/surgery at [facility] was unable to perform the procedure so was transferred to [facility] for J-tube exchange which occurred on 01/06. Per signout from [facility] seems patient has not had vomiting since J tube exchange but still has pain and nausea with tube feeds. Has minimal p.o. intake. Was treated with Unasyn and currently on Augmentin for possible site infection. Vital stable and labs ok prior to transfer here. And pain has been controlled with home oxycodone 5 mg p.o. every 6 hours as needed Tylenol and naproxen. Patient resting comfortably. States still has some back pain and abdominal pain and nausea. States not tolerating tube feeds well.Can eat some by mouth but mostly vomiting. Denies fever. Has diarrhea. Normal bladder movements. No chest pain or shortness of breath. Has some headache because of poor oral intake. No runny nose or sore throat. No cough. No fevers. Abdominal pain Ongoing Gastroparesis s/p J-tube placement Recently transferred to [facility] as J-tube was dislodged, for exchange and was done on 01/06 . Transferred back 01/10/2024 Currently no vomiting but still very nauseous and not tolerating tube feeds well At [place] was given Unasyn for site infection and was placed on Augmentin at discharge which will be continued for now NPO for now, IV fluids IV, IV antiemetics Continue home pain medications as needed Nutrition consult in a.m. to restart tube feeds GI on board; appreciate recommedation History of endometriosis S/p hysterectomy as per records DVT prophylaxis Lovenox Disposition Medical floor Full code. Please note the above document was generated using voice recognition software. It may contain grammatical, syntax or spelling errors. Any formal questions or concerns about the content, text or information contained within the body of this dictation should be directly addressed to the provider for clarification Admission and Anticipated Discharge Date Admission Date: January 10, 2024 Subjective Reports abdominal pain symptoms taking oxycodone every 6 hours Vitals are stable and she is saturating well on room air Review of Systems Review of Systems: All systems reviewed & are unremarkable except as noted in Subjective Physical Exam Physical Exam: General- Not in distress Head- atraumatic Eyes- EOMI Neck- supple, no JVD. Lungs- clear to auscultation no wheezing or crackles Heart- regular rhythm; no murmur, no gallop Abdomen- normal bowel sounds, soft, mild diffuse tenderenss, J tube site no erythema or drainage seen.No distension Extremities- no pretibial edema, no erythema seen. Neuro- alert, oriented EOMI; no facial palsy; no dysarthria; moves extremities Results & Data Results & Data Vital Signs (Past 12 Hours) Vital Signs Temp Pulse Resp BP Pulse Ox O2 Del Method 01/11/24 07:40 36.7 C 65 18 110/71 97 Room Air 01/10/24 22:04 36.7 C 74 16 131/89 98 Room Air (1) Abdominal pain Abdominal location: unspecified location Qualified Code(s): R10.9 - Unspecified abdominal pain
--- NOTE | 2024-01-11 12:21 | Discharge Summary ---
Date of Service January 11, 2024 Admission HPI Per Admitting Provider 23-year-old female with past medical history significant for ovarian cystic mass, malfunction of jejunostomy tube, GERD, gastroparesis dysmenorrhea, postconcussion syndrome, chronic abdominal pain, chronic female pelvic pain, medical marijuana use, adjustment disorder with depression, PTSD, chronic continuous use of opioids, anxiety disorder, ongoing vape use was recently transferred from [facility] to [facility] [place] J[place]. Patient was admitted to our service from 12/30 to 01/02 for abdominal pain in setting of gastroparesis with J-tube dislodgment. IR/surgery at [facility] was unable to perform the procedure so was transferred to [facility] for J-tube exchange which occurred on 01/06. Per signout from [facility] seems patient has not had vomiting since J tube exchange but still has pain and nausea with tube feeds. Has minimal p.o. intake. Was treated with Unasyn and currently on Augmentin for possible site infection. Vital stable and labs ok prior to transfer here. And pain has been controlled with home oxycodone 5 mg p.o. every 6 hours as needed Tylenol and naproxen. Patient resting comfortably. States still has some back pain and abdominal pain and nausea. States not tolerating tube feeds well.Can eat some by mouth but mostly vomiting. Denies fever. Has diarrhea. Normal bladder movements. No chest pain or shortness of breath. Has some headache because of poor oral intake. No runny nose or sore throat. No cough. No fevers. Past medical history. As mentioned above Past surgical history. Appendectomy. Colonoscopy and EGD. IR gastrointestinal ostomy. IR tube replacement. Laparoscopic hysterectomy. S/p J tube placement. Social history. No smoking. Alcohol occasional. No drug use. Family history. Father had gastric ulcer. Mother has irritable bowel syndrome. Migraines. Maternal grandmother had hypertension. Paternal grandmother had thyroid disorder. Admission Exam Per Admitting Provider General- Not in distress Head- atraumatic Eyes- EOMI Neck- supple, no JVD. Lungs- clear to auscultation no wheezing or crackles Heart- regular rhythm; no murmur, no gallop Abdomen- normal bowel sounds, soft, mild diffuse discomfort, J tube site no erythema or drainage seen.No distension Extremities- no pretibial edema, no erythema seen. Neuro- alert, oriented EOMI; no facial palsy; no dysarthria; moves extremities Principal Diagnosis J-tube malfunction status post exchange Discharge Exam Patient examined in presence of female on car supervisor General- Not in distress Head- atraumatic Eyes- EOMI Neck- supple, no JVD. Lungs- clear to auscultation no wheezing or crackles Heart- regular rhythm; no murmur, no gallop Abdomen- normal bowel sounds, soft, , J tube site no erythema or drainage seen.No distension Extremities- no pretibial edema, no erythema seen. Neuro- alert, oriented EOMI; no facial palsy; no dysarthria; moves extremities Discharge Data Allergies Allergy/AdvReac Type Severity Reaction Status Date / Time metoclopramide [From Reglan] AdvReac Intermediate PSYCHO Verified 12/31/23 19:06 REACTIONS prochlorperazine AdvReac Intermediate Agitated Verified 12/31/23 19:06 [From Compazine] ondansetron [From Zofran] AdvReac Mild Flushing Verified 12/31/23 19:06 Consultations 01/11/24 08:00 Consult Gastroenterology Routine Hospital Course (1) Abdominal pain: 23-year-old female with past medical history significant for ovarian cystic mass, malfunction of jejunostomy tube, GERD, gastroparesis dysmenorrhea, postconcussion syndrome, chronic abdominal pain, chronic female pelvic pain, medical marijuana use, adjustment disorder with depression, PTSD, chronic continuous use of opioids, anxiety disorder, ongoing vape use was recently transferred from [facility] to [facility] for J-tube exchange. Patient was admitted to our service from 12/30 to 01/02 for abdominal pain in setting of gastroparesis with J-tube dislodgment. IR/surgery at [facility] was unable to perform the procedure so was transferred to [facility] for J-tube exchange which occurred on 01/06. She was transferred back to [facility] on January 11, 2024. She was treated in [facility] with course of Unasyn and Augmentin for possible J-site infection. Patient reported that she wants to go home and will gradually start on tube feeds at home as she has all supplies. She was not in pain. Vital signs are stable. She did not have any nausea or vomiting at the time. She reports that she has been cutting back on oxycodone gradually. She reports that she will follow-up with her primary care doctor. Patient was discharged home with instructions to follow-up with her primary care doctor. Please note the above document was generated using voice recognition software. It may contain grammatical, syntax or spelling errors. Any formal questions or concerns about the content, text or information contained within the body of this dictation should be directly addressed to the provider for clarification Total Time Total Time Spent Total Time Spent (In Minutes): 45 Total Time Includes: Examination of the Patient, Discharge Planning, Medication Reconciliation, Communication With Other Providers and Other Discharge Plan Discharge Items Patient Disposition: Home - Self-Care Reason For Visit: TRANSFER BACK FROM [facility] AFTER J TUBE EXCHANGE, K[place] Discharge Diagnosis: J tube malfunction s/p exchange Activity: Resume your previous activity Non-emergency contact: Primary Care Provider Call non-emergency contact if: you have any medication questions and your symptoms worsen Follow-up/Referrals: Kinjal Reynoso PA-C [Primary Care Provider] - Diet: Other - See Diet Comment Diet Comment: as per previous diet/j tube feeds Addtl Attending Provider Instructions: Gradually restart your J-tube feeds as discussed. Appointment with your primary care doctor will be made. Please follow-up with them. Pending Studies at Discharge: No Stand-Alone Forms: My [employer], Smoking Cessation Medications and DC Order Prescriptions: Continued lansoprazole 15 mg capsule,delayed release(DR/EC) 30 mg PO DAILY ondansetron 4 mg tablet,disintegrating 4 mg PO TID PRN (Reason: Nausea And Vomiting) acetaminophen [Tylenol] 325 mg Tablet 625 mg PO QID PRN (Reason: Mild Pain (Scale Score 1-4)) naproxen 375 mg Tablet 375 mg PO BID norethindrone acetate 5 mg Tablet 5 mg PO DAILY Florajen Digestion 15 billion cell Capsule 1 cap PO DAILY oxycodone 5 mg/5 mL solution 5 mg PO Q4 PRN (Reason: Pain (Scale Score 7-10)) Discontinued amoxicillin-pot clavulanate [Augmentin] 400-57 mg/5 mL Suspension For Reconstitution 5 ml PO BID Discharge Orders: Discharge Order (Routine); Ordered 01/11/24 Ordered By: Matti Pérez Admission Data Admit Date/Time: 01/10/24 13:02 Attending Provider: Matti Pérez Admit Provider: Priscilla Tomlin Primary Care Provider: Kinjal Reynoso Other Providers: Silverio Alanis
--- NOTE | 2024-01-11 12:42 | Gastrointestinal Consultation ---
Date of Consultation January 11, 2024 Assessment & Plan (1) Gastroparesis: Discussed with patient that our service does not manage J tubes. Discussed that chronic opioid use should be eliminated given her gastroparesis. She has been advised to see pain management in the past per [facility] notes, and I agree with this. She could consider tertiary evaluation as an outpatient for further evaluation and treatment of her gastroparesis. Continue Zofran 4 mg po TID prn & Lansoprazole 30 mg daily. Patient continues to ingest food by mouth and notes she is interested in removing her J tube, but this can be discussed with [facility] or a motility specialist. She did ask for recommendations regarding motility specialists and I did provider her with the name of Dr. Romero at [place] or she may wish to see [place] [facility], though the wait time may be lengthy. Supervising Physician Co-Signing Physician Notes Patient was not seen as she chose to leave prior to attending could see. History of Present Illness Reason for Consultation: Gastroparesis with J tube Attending Physician: Matti Pérez MD History of Present Illness Patient is a 23 yo female with PMH of ovarian cystic mass, GERD, chronic abdominal pain, adjustment disorder, marijuana use, PTSD, chronic opioid use, anxiety disorder, & gastroparesis. [facility]. She was admitted at [facility] from 12/31/23 to 01/03/24 for abdominal pain in the setting of gastroparesis with J tube dislodged. She was transferred to [facility] for an IR J tube exchange then transferred back to [facility] on 01/11/24. She has been taking Augmentin for a possible J site infection though it appears to look unremarkable on exam. She is unfortunately on chronic opioids using Oxycodone 5 mg q 4 hours prn. She has been told to see pain management in the past by [facility]. She notes nausea after tube feeds and nausea after eating by mouth. She notes multiple allergies including Reglan and Compazine. She does use Zofran but notes minimal improvement. She is on Lansoprazole 30 mg daily as well as [id number] 4 mg po TID prn. She takes Naproxen BID. Allergies Allergy/AdvReac Type Severity Reaction Status Date / Time metoclopramide [From Reglan] AdvReac Intermediate PSYCHO Verified 12/31/23 19:06 REACTIONS prochlorperazine AdvReac Intermediate Agitated Verified 12/31/23 19:06 [From Compazine] ondansetron [From Zofran] AdvReac Mild Flushing Verified 12/31/23 19:06 Home Medications Medication Instructions Recorded Confirmed Type L.acidophilus-B.animalis-B.longum 1 cap PO DAILY 01/10/24 01/10/24 History 15 billion cell capsule (Florajen Digestion) acetaminophen 325 mg tablet 625 mg PO QID PRN Mild Pain (Scale 01/10/24 01/10/24 History (Tylenol) Score 1-4) lansoprazole 15 mg capsule,delayed 30 mg PO DAILY 01/10/24 01/10/24 History release naproxen 375 mg tablet 375 mg PO BID 01/10/24 01/10/24 History norethindrone acetate 5 mg tablet 5 mg PO DAILY 01/10/24 01/10/24 History ondansetron 4 mg disintegrating 4 mg PO TID PRN Nausea And Vomiting 01/10/24 01/10/24 History tablet oxycodone 5 mg/5 mL oral solution 5 mg PO Q4 PRN Pain (Scale Score 01/10/24 01/10/24 History 7-10) Patient History Medical History Chronic abdominal pain Non-cardiac chest pain Surgical History H/O: hysterectomy Social History Smoking Status: Never smoker Tobacco Type: E-cigarettes / Vaping Second Hand Exposure: No; Do You Dip or Chew Tobacco: No; Tobacco Cessation Education Requested by Patient: No Hx Alcohol Use: No Hx Substance Use: No Preferred Language: German Communication Ability: Effective Flight Steward Required: No Beliefs That Will Affect Care: None Current Living Situation: Parent Current Living Situation Comment: Lives with Mother Other Information That Helps Us Care for You: No Feels Safe at Home: Yes Safety Concerns: Feels Safe At This Time Assistive Devices: None Review of Systems Constitutional: no fever and no chills Respiratory: no cough and no dyspnea Cardiovascular: no chest pain Gastrointestinal: + abdominal pain (at baseline) Physical Exam Constitutional: WD/WN, vitals as above Respiratory: normal respiratory effort Cardiovascular: Rate/Rhythm: regular rate Gastrointestinal (Abdomen): J tube in place without any visible concerns Results & Data Vital Signs (Past 12 Hours) Vital Signs Temp Pulse Resp BP Pulse Ox O2 Del Method 01/11/24 07:40 36.7 C 65 18 110/71 97 Room Air PG Care Time/CCT Total # of Minutes Spent Total Time Spent with Patient: Total time spent is greater than 50% in coordination of care (as documented) at patient's floor/unit and/or counseling patient: Coding Level of Care Code 24162 IN/OBS CONSULT LVL 4,60M Diagnoses Gastroparesis K31.84
--- OUTSIDE RECORDS SUMMARY | 2024-01-11 20:39 | External Medical Summary | Summary of Care ---
Author Name Unknown Organization [facility] Address [address] [place] [address] Phone [phone] Care Team Providers Care Clay Shop Supervisor Name Role Phone Kinjal Reynoso PA-C Primary Care Provider [phone] Reason for Visit * Reason Comments Medication Refill Encounter Details Date Type Department Care Team (Late st Contact Info) Description 01/09/2024 Refill [facility] [place] [address] Kinjal Reynoso PA-C 21 [facility] [place] [address] Gastroparesis; Chronic pelvic pain in female; [...] as of this encounter (statuses as of 01/10/2024) Medications Medication Sig Dispensed Refills Start Date End Date Status Naloxone HCl 4 MG/0.1ML Nasal Liquid (Narcan Nasal)Indications:C hronic pelvic pain in female,MEDICATION USE AGREEMENT,Chronic abdominal pain ADMINISTER 1 SPRAY INTO 1 NOSTRIL FOR SUSPECTED OPIOID OVERDOSE - SEEK IMMEDIATE MEDICAL ATTENTION. [email or web address] 2 Each 3 03/31/2023 Active Polyethylene Glycol [...] as directed, through J-tube via feeding pump. 76387 mL 11 10/05/2023 Active Peptamen AF Oral Liquid Administer 1,000 mL over 12 hours into J tube 4 times a day. 09231 mL 11 09/30/2023 Active Enteral Feeding Piston [...] at bedtime. 120 Capsule 5 12/24/2023 Active Albuterol Sulfate HFA 108 (90 Base) MCG/ACT Inhalation Aerosol Solution Inhale 2 puffs by mouth every 6 hours As Needed for shortness of breath or wheezing 8.5 g 01/04/2024 Active oxyCODONE HCl 5 MG Oral Tablet (Oxy IR)Indications:Fransisco roparesis,Chronic pelvic pain in female,Malfunction of jejunostomy tube (HCC) Take 1 Tablet by mouth in the morning and 1 Tablet before bedtime. DO NOT TAKE MORE THAN 2 DOSES A DAY. Rx must last 14 days. 28 Tablet 01/10/2024 Active oxyCODONE HCl 5 MG Oral Tablet (Oxy IR)Indications:Fransisco roparesis,Chronic pelvic pain in female,Malfunction of jejunostomy tube (HCC) Take 1 Tablet by mouth every 8 hours as needed for Pain, Severe. DO NOT TAKE MORE THAN 3 DOSES A DAY. Rx must last 14 days 42 Tablet 12/28/2023 4 Discontinu ed(Refill) documented as of this encounter (statuses as of 01/10/2024) Active Problems Problem Noted Date Diagnosed Date [...] as of this encounter (statuses as of 01/10/2024) Resolved Problems Problem Noted Date Diagnosed Date [...] as of this encounter (statuses as of 01/10/2024) Immunizations Name Administration Dates Next Due DTaP [...] encounter Miscellaneous Notes * Telephone Encounter - Paty Ramirez NRCMA - 01/10/2024 6:49 PM EDT Please see MyG. * Telephone Encounter - Kinjal Reynoso PA-C - 01/10/2024 6:30 PM EDT Weaning pt off. Reduced to 2 BID PRN. 14 day rx sent. * Telephone Encounter - Kinjal Reynoso PA-C - 01/10/2024 6:30 PM EDTSigned Prescriptions: Disp Refills oxyCODONE HCl 5 MG Oral Tablet (Oxy IR) 28 Tab*0 Sig: Take 1 Tablet by mouth in the morning and 1 Tablet before bedtime. DO NOT TAKE MORE THAN 2 DOSES A DAY. Rx must last 14 days. Authorizing Provider: KINJAL REYNOSO * Telephone Encounter - Kinjal Reynoso PA-C - 01/10/2024 6:30 PM EDTSigned Prescriptions: Disp Refills oxyCODONE HCl 5 MG Oral Tablet (Oxy IR) 28 Tab*0 Sig: Take 1 Tablet by mouth in the morning and 1 Tablet before bedtime. DO NOT TAKE MORE THAN 2 DOSES A DAY. Rx must last 14 days. Authorizing Provider: KINJAL REYNOSO * Telephone Encounter - Tj Trujillo wax pourer - 01/10/2024 10:52 AM EDT Pt is out of medication today. Pt calling to check on status of oxyCODONE HCl 5 MG Oral Tablet (Oxy IR) . Caller can be reached [phone]. Thank you, Tj Trujillo Computer Applications Developer I [facility] ([facility]) 01/10/2024,10:52 AM * Telephone Encounter - Nia Holmanissa, [facility] - 01/10/2024 10:04 AM EDT Pending Prescriptions: Disp Refills oxyCODONE HCl 5 MG Oral Tablet (Oxy IR) 0 Sig: Take 1 Tablet by mouth. DO NOT TAKE MORE THAN DOSES A DAY. Rx must last 14 days * Telephone Encounter - RomanSarthak guidryNia Asiya [facility] - 01/10/2024 10:01 AM EDT Leaving sig and qty blank for review - see 01/06/24 message regarding wean. I have reviewed the patients controlled substance dispensing history in the Prescription Drug Monitoring Program in compliance with the [facility] regulations before prescribing a controlled substance. PDMP checked on 01/10/2024. Pending Prescriptions: Disp Refills oxyCODONE HCl 5 MG Oral Tablet (Oxy IR) 0 Sig: Take 1 Tablet by mouth. DO NOT TAKE MORE THAN DOSES A DAY. Rx must last 14 days Last Visit: 12/24/2023 (in office), 09/10/2022 (telemedicine) Next Visit: 03/25/2024 Date medication was last filled: 12/28/23 Date medication is due for refill: 01/10/24 Pharmacy: [facility] Is this [...] request. Please approve if appropriate. Thank you, Nia Holman, PharmD Clinical Pharmacist [facility] ([facility]) 01/10/24 10:02 AM [phone] documented in this encounter Plan of Treatment Upcoming Encounters Date Type Department Care Team (Late st Contact Info) Description 03/25/2024 9:20 AM EDT Office Visit [facility] [place] [address] [address] Kinjal Reynoso PA-C [address] [address] Health Maintenance Due Date Last Done [...] this encounter Medical Devices Implanted Type Area Seasonal Delivery Driver Device Identifier Shelf Expiration Date Model / Serial / Lot Port Implant W/8f Poly Cath - [id number] Implanted:Qty : 1 on 05/18/2023 by Juan Jose Connell, at OR [facility] Right: Chest CR BARD : PERIPHERAL VASCULAR [id number] 11/18/2024 [id number] / / [id number] documented as of this encounter Visit Diagnoses [...] Advance Directives occurred with: Patient Care Teams Clay Shop Supervisor Relationship Specialty Start Date End Date Kinjal Reynoso PA-C [address] [address] PCP - General Physician Sheet Metal Welder 11/05/22 documented as of this encounter
--- OUTSIDE RECORDS SUMMARY | 2024-01-11 20:39 | External Medical Summary | Summary of Care ---
Author Name Unknown Organization [facility] Address [address] [place] [address] Phone [phone] Care Team Providers Care Chief Specialist Leed Name Role Phone Kinjal Reynoso PA-C Primary Care Provider [phone] Reason for Visit * Reason Onset Date Comments Medication Refill 01/10/2024 Encounter Details Date Type Department Care Team (Late st Contact Info) Description 01/10/2024 Refill [facility] [address] [address] Kinjal Reynoso PA-C [address] [facility] [address] [address] Chronic pelvic pain in female; Gastroparesis; [...] as of this encounter (statuses as of 01/11/2024) Medications Medication Sig Dispensed Refills Start Date End Date Status Naloxone HCl 4 MG/0.1ML Nasal Liquid (Narcan Nasal)Indications:C hronic pelvic pain in female,MEDICATION USE AGREEMENT,Chronic abdominal pain ADMINISTER 1 SPRAY INTO 1 NOSTRIL FOR SUSPECTED OPIOID OVERDOSE - SEEK IMMEDIATE MEDICAL ATTENTION. [email or web address] 2 Each 3 03/31/2023 Active Polyethylene Glycol [...] as directed, through J-tube via feeding pump. 38125 mL 11 10/05/2023 Active Peptamen AF Oral Liquid Administer 1,000 mL over 12 hours into J tube 4 times a day. 57960 mL 11 09/30/2023 5 Active Enteral Feeding Piston Syringe Use as directed. 30 Each 11 09/30/2023 Active Gabapentin 100 MG Oral Capsule (Neurontin)Indicati [...] breath or wheezing 8.5 g 01/04/2024 Active Acetaminophen 160 MG/5ML Oral Suspension (Tylenol)Indication s:Chronic pelvic pain in female,Gastroparesi s,Malfunction of jejunostomy tube (HCC) Administer 31.2 mL into J tube every 8 hours as needed for Pain, Moderate. 472 mL 5 01/11/2024 Active Acetaminophen 160 MG/5ML Oral Suspension (Tylenol)Indication s:Chronic pelvic pain in female,Gastroparesi s,Malfunction of jejunostomy tube (HCC) Instill 31.2 mL into J tube every 8 hours as needed for Moderate Pain, 472 mL 5 11/24/2023 Discontinu ed(Refill) documented as of this encounter (statuses as of 01/11/2024) Active Problems Problem Noted Date Diagnosed Date [...] as of this encounter (statuses as of 01/11/2024) Resolved Problems Problem Noted Date Diagnosed Date [...] as of this encounter (statuses as of 01/11/2024) Immunizations Name Administration Dates Next Due DTaP Dipth/Tet/Acell Pertussis (Infanrix), Peds 01/18/2007,07/03/2002,04/18/2002,11/07 HIB PRP-OMP, 3 dose (Pedvax) 07/03/2002,04/18/20,2001 Hepatitis A, Ped/Adol., 19 y ear and [...] encounter Miscellaneous Notes * Telephone Encounter - Shannan Grimm [facility] - 01/11/2024 5:02 AM EDTSigned Prescriptions: Disp Refills Acetaminophen 160 MG/5ML Oral Suspension (*472 mL 5 Sig: Administer 31.2 mL into J tube every 8 hours as needed for Pain, Moderate.Authorizing Provider: Dakota REYNOSO User: SHANNAN GRIMM * Telephone Encounter - Tj Trujillo, chief safety officer - 01/10/2024 10:55 AM EDT Please reroute Rx to [facility]. Pending Prescriptions: Disp Refills Acetaminophen 160 MG/5ML Oral Suspension *472 mL 5 Sig: Administer 31.2 mL into J tube every 8 hours as needed for Pain, Moderate. Last Visit: 12/24/2023 (in office), 09/10/2022 (telemedicine) 03/25/2024 If no future appointments scheduled, and last appointment is greater than a year ago, please schedule patient for a follow-up appointment Last date the medication was ordered: 11/24/23 Patient Phone Numbers Labs: Lab Results Component [...] Description 03/25/2024 9:20 AM EDT Office Visit [facility] [address] [address] Kinjal Reynoso PA-C [address] [address] Health Maintenance Due Date Last Done Comments [...] this encounter Medical Devices Implanted Type Area Deburring Machine Operator Device Identifier Shelf Expiration Date Model / Serial / Lot Port Implant W/8f Poly Cath - [id number] Implanted:Qty : 1 on 05/18/2023 by Juan Jose Connell, at OR [facility] Right: Chest CR BARD : PERIPHERAL VASCULAR [id number] 11/18/2024 [id number] / / [id number] documented as of this encounter Visit Diagnoses [...] Advance Directives occurred with: Patient Care Teams Chief Specialist Leed Relationship Specialty Start Date End Date Kinjal Reynoso PA-C [address] [address] PCP - General Physician Icd 9 Coder 11/05/22 documented as of this encounter
--- OUTSIDE RECORDS SUMMARY | 2024-01-11 20:39 | External Medical Summary | Summary of Care ---
Author Name Unknown Organization [facility] Address [address] [place] [address] Phone [phone] Care Team Providers Care Larry Car Operator Name Role Phone Kinjal Reynoso PA-C Primary Care Provider [phone] Reason for Visit * Reason Comments Medication Refill Encounter Details Date Type Department Care Team (Late st Contact Info) Description 01/09/2024 Refill [facility] [place] [address] Kinjal Reynoso PA-C [address] [facility] [place] [address] Gastroparesis; Chronic pelvic pain in female; [...] OPIOID OVERDOSE - SEEK IMMEDIATE MEDICAL ATTENTION. [email or web address] 2 Each 3 03/31/2023 Active Polyethylene Glycol [...] as directed, through J-tube via feeding pump. 00437 mL 11 10/05/2023 Active Peptamen AF Oral Liquid Administer 1,000 mL over 12 hours into J tube 4 times a day. 16361 mL 11 09/30/2023 Active Enteral Feeding Piston [...] Rx must last 14 days. Authorizing Provider: REYNOSO, KINJAL EMILY * Telephone Encounter - Kinjal Reynoso PA-C - 01/10/2024 6:30 PM EDTSigned Prescriptions: Disp Refills oxyCODONE HCl 5 MG Oral Tablet (Oxy IR) 28 Tab*0 Sig: Take 1 Tablet by mouth in the morning and 1 Tablet before bedtime. DO NOT TAKE MORE THAN 2 DOSES A DAY. Rx must last 14 days. Authorizing Provider: KINJAL REYNOSO * Telephone Encounter - Tj Trujillo windows support engineer - 01/10/2024 10:52 AM EDT Pt is out of medication today. Pt calling to check on status of oxyCODONE HCl 5 MG Oral Tablet (Oxy IR) . Caller can be reached [phone]. Thank you, Tj Trujillo [place] District Aide I [facility] ([facility]) 01/10/2024,10:52 AM * Telephone Encounter - Nia Holman [facility] - 01/10/2024 10:04 AM EDT Pending Prescriptions: Disp Refills oxyCODONE HCl 5 MG Oral Tablet (Oxy IR) 0 Sig: Take 1 Tablet by mouth. DO NOT TAKE MORE THAN DOSES A DAY. Rx must last 14 days * Telephone Encounter - Nia Holman [facility] - 01/10/2024 10:01 AM EDT Leaving sig and qty blank for review - see 01/06/24 message regarding wean. I have reviewed the patients controlled substance dispensing history in the Prescription Drug Monitoring Program in compliance with the [facility] regulations before prescribing a controlled substance. [...] medication is due for refill: 01/10/24 Pharmacy: [facility] Is this request for a controlled [...] Clinical Pharmacy Services ([facility]) 01/10/24 10:02 AM [phone] documented in this encounter Plan of Treatment Upcoming Encounters Date Type Department Care Team (Late st Contact Info) Description 03/25/2024 9:20 AM EDT Office Visit Family Jeff, [place] [address] [address] Kinjal Reynoso PA-C [address] [phone] Health Maintenance Due Date Last Done Comments [...] this encounter Medical Devices Implanted Type Area Repairer Welding Systems And Equipment Device Identifier Shelf Expiration Date Model / Serial / Lot Port Implant W/8f Poly Cath - [id number] Implanted:Qty : 1 on 05/18/2023 by Juan Jose Connell, at OR [facility] Right: Chest CR BARD : PERIPHERAL VASCULAR [id number] 11/18/2024 [id number] / / [id number] documented as of this encounter Visit Diagnoses [...] Advance Directives occurred with: Patient Care Teams Larry Car Operator Relationship Specialty Start Date End Date Kinjal Reynoso PA-C [address] [address] PCP - General Physician Curtain Fitter 11/05/22 documented as of this encounter
== END 2024-01-11 14:41 | disposition home or self-care (01) | DRG 395 ==
LOC: INTOOBSV 13:02 → SUATTDRO 22:00 → 3N 22:00

== ENCOUNTER 2024-03-16 13:28 | Observation (INO) ==
[2024-03-16 14:45] LABS: Basophils # (auto) 0.01 K/uL (0.00-0.20); Basophils % (auto) 0.2 %; Eosinophils # (auto) 0.08 K/uL (0.00-0.50); Eosinophils % (auto) 1.3 %; Hematocrit (blood only) 35.5 % (37.0-47.0); Hemoglobin 12.7 g/dl (12.0-16.0); Immature Granulocytes # (auto) 0.02 K/uL (0.01-0.20); Immature Granulocytes % (auto) 0.3 %; Lymphocytes # (auto) 2.45 K/uL (1.20-3.40); Lymphocytes % (auto) 40.7 %; Mean Corpuscular Hemoglobin 31.6 pg (25.0-34.0); Mean Corpuscular Hgb Conc 35.8 g/dL (32.0-36.0); Mean Corpuscular Volume 88.3 fL (80.0-100.0); Mean Platelet Volume 10.8 fL (9.4-12.4); Monocytes # (auto) 0.45 K/uL (0.11-0.59); Monocytes % (auto) 7.5 %; Neutrophils # (auto) 3.01 K/uL (1.40-6.50); Platelet Count 234 K/uL (130-400); RDW Coefficient of Variation 12.3 % (11.5-14.5); RDW Standard Deviation 39.9 fL (36.4-46.3); Red Blood Count 4.02 M/uL (4.20-5.40); White Blood Count 6.02 K/ul (4.8-10.8)
[2024-03-16 14:57] LABS: Appearance Urine Clear (Clear); Bacteria Urine Automated 3+ (None Seen); Bilirubin Urine Negative (Negative); Blood Urine Negative (Negative); Cast Urine Automated 0-2 /lpf (0-2); Color Urine Yellow; Glucose Urine UA Negative (Negative); Ketones Urine 1+ (Negative); Leukocyte Esterase Urine Trace (Negative); Nitrite Urine Negative (Negative); Protein Urine Trace (Negative); RBC Urine Automated 0-2 /hpf (0-2); Specific Gravity Urine 1.032 (1.000-1.030); Urobilinogen Urine Negative (Negative); WBC Urine Automated 0-5 /hpf (0-5); pH Urine 6.5 (4.5-7.5)
[2024-03-16 14:59] LABS: Alanine Aminotransferase 6 U/L (7-52); Albumin Globulin Ratio 1.5 (0.9-2); Albumin Level 3.7 gm/dl (3.4-5.0); Alkaline Phosphatase 59 U/L (34-104); Anion Gap 7 (3-11); Aspartate Aminotransferase 11 U/L (13-39); BUN Creatinine Ratio 15.5 (10-20); Bilirubin,Total 0.3 mg/dl (0.2-1.0); Blood Urea Nitrogen 9 mg/dl (6-23); Calcium 7.7 mg/dl (8.6-10.3); Carbon Dioxide 19 mmol/L (21-32); Chloride 114 mmol/L (98-107); Creatinine Clr Calc Pharmacy 140.3 ml/min; Est GFR (African American) > 150.0 ml/min; Est GFR (Non-African American) 130.8 ml/min; Globulin 2.4 gm/dl (2.5-4.0); Glucose 75 mg/dl (70-99(Fasting)); Lipase 16 U/L (11-82); Potassium 3.3 mmol/L (3.5-5.1); Sodium 140 mmol/L (136-145); Total Protein 6.1 gm/dl (6.0-8.3)
[2024-03-16 17:15] LABS: Pregnancy Test, Serum Negative (Negative)
[2024-03-16] MEDS: MoRPHine SULFATE 4 MG/ML 1 ML CARP\\VIAL IV STA (17:34)
[2024-03-16] MEDS: ONDANSETRON INJ 2 MG/ML 2 ML VIAL IV STA ×2 (17:34→21:18)
--- NOTE | 2024-03-16 17:37 | Emergency Department Note ---
Impression & Plan Ovarian cyst rupture, Abdominal pain, Vomiting ED Provider Note NAME: ELIF LEVY AGE: 23 SEX: F : 2000 ARRIVES VIA: Walk-In INFORMANT: Patient, ED PROVIDER(S): Tai Boyle DO CHIEF COMPLAINT: Abdominal pain HPI: The patient is a 23-year-old female who presented to the emergency department for abdominal pain. The patient has a history of a J-tube and ovarian cyst who presented to the emergency department for an evaluation of abdominal pain. The patient states that she has some swelling in her right side. She is concerned about the J-tube. She denies having any vaginal bleeding or discharge but she is concerned about an ovarian cyst. The patient's not been seen by her family doctor. She went to a different emergency department that was too busy so she came to our emergency department for further evaluation. ROS: See above HPI for pertinent positives & negatives. A total of 10 systems reviewed and were otherwise negative. PAST MEDICAL HISTORY: See Below PAST SURGICAL HISTORY: See Below FAMILY HISTORY: See Below SOCIAL HISTORY: See Below HOME MEDICATIONS: See Below ALLERGIES: See Below VITALS: See Below PHYSICAL EXAMINATION: GENERAL: The patient is awake and alert. The patient is very anxious and appears to be uncomfortable. EYES: The conjunctivae are clear. The pupils are round and reactive. EARS, NOSE, MOUTH AND THROAT: The nose is without any evidence of any deformity. NECK: The neck is nontender and supple. RESPIRATORY: Normal respiratory effort is noted there is no evidence of wheezing rhonchi or rales CARDIOVASCULAR: Regular rate and rhythm noted there no murmurs rubs or gallops normal S1 normal S2. GASTROINTESTINAL: J-tube was noted in the right abdomen. There is no drainage. There is diffuse tenderness to palpation with guarding in all quadrants. MUSCULOSKELETAL/EXTREMITIES: There is no evidence of gross deformity full range of motion is noted in the hips and shoulders. SKIN: There is no obvious evidence of any rash. There are no petechiae, pallor or cyanosis noted. NEUROLOGIC: Patient is awake alert and oriented x3 MEDICAL DECISION MAKING: The patient is a 23-year-old female who presented to the emergency department for an evaluation of abdominal pain. The patient has had problems with abdominal pain frequently and states that she has had similar episodes with ovarian cyst rupture in the past. The patient was treated with IV fluids and IV pain medication. She was also treated with IV antiemetics. The patient was reevaluated multiple times but still had very significant pain. I discussed patient's laboratory and radiographic studies with her. Because of her ongoing pain I also discussed her condition with the on-call [facility] hospitalist. They have agreed to evaluate the patient in the emergency department for further management and disposition. The patient was having significant vomiting. She may have misplaced her J-tube. This was discussed with the admitting team. They may need to have the GI doctor see her tomorrow for further evaluation. Triage Nursing notes reviewed. Prior medical records reviewed Vital Signs: reviewed and remarkable for no significant abnormalities Differential diagnosis: Etiologies such as appendicitis, diverticulitis, obstruction, inflammatory bowel disease, renal colic, PUD, biliary pathology, pancreatitis, mesenteric ischemia, aortic pathology, infections, genitourinary, UTI, perforated viscus, as well as others were entertained. ER treatment provided: See below Diagnostics interpreted by me: ECG: none Cardiac Monitoring: An order was placed for continuous cardiac monitoring. The monitor shows a rate of 89 bpm with sinus rhythm. Laboratory studies: As stated above and show below. Imaging studies: See below. Radiographic imaging was reviewed by myself Consultation(s): I discussed this case with Dr. Lee Past Med/Surg History Problem List (Updated 03/16/24 @ 20:47 by Tai Boyle DO) Vomiting (Acute) Abdominal pain (Acute) Ovarian cyst rupture (Acute) Gastroparesis Rupture of cyst of right ovary (Acute) Intractable abdominal pain (Acute) Abdominal pain (Acute) Dislodged jejunostomy tube (Acute) Adjustment disorder with mixed anxiety and depressed mood Nausea & vomiting Chronic female pelvic pain (Acute) Mood disorder (Acute) Endometriosis (Chronic) Chest pain (Acute) Internal hemorrhage (Acute) No known health problems (Chronic) Medical History Chronic abdominal pain Non-cardiac chest pain Surgical History H/O: hysterectomy Social History Smoking Status: Current every day smoker Tobacco Type: E-cigarettes / Vaping Second Hand Exposure: No; Do You Dip or Chew Tobacco: No; Hx Alcohol Use: No Hx Substance Use: No Preferred Language: Kyrgyz Communication Ability: Effective Geometrician Required: No Beliefs That Will Affect Care: None Current Living Situation: Parent Current Living Situation Comment: Lives with Mother Feels Safe at Home: Yes Assistive Devices: None Allergies Allergies Allergy/AdvReac Type Severity Reaction Status Date / Time metoclopramide [From Reglan] AdvReac Intermediate PSYCHO Verified 03/16/24 20:38 REACTIONS prochlorperazine AdvReac Intermediate Agitated Verified 03/16/24 20:38 [From Compazine] ondansetron [From Zofran] AdvReac Mild Flushing Verified 12/31/23 19:06 Home Meds Home Medications Medication Instructions Recorded Confirmed L.acidophilus-B.animalis-B.longum 1 cap PO DAILY 01/10/24 03/16/24 15 billion cell capsule (Florajen Digestion) acetaminophen 325 mg tablet 625 mg PO QID PRN Mild Pain (Scale 01/10/24 03/16/24 (Tylenol) Score 1-4) lansoprazole 15 mg capsule,delayed 30 mg PO DAILY PRN Heartburn 01/10/24 03/16/24 release naproxen 375 mg tablet 375 mg PO BID 01/10/24 03/16/24 ondansetron 4 mg disintegrating 4 mg PO TID PRN Nausea And Vomiting 01/10/24 03/16/24 tablet oxycodone 5 mg/5 mL oral solution 5 mg PO Q4 PRN Pain (Scale Score 01/10/24 03/16/24 7-10) gabapentin 300 mg capsule 300 mg PO DAILY PRN Pain 03/16/24 03/16/24 Results & Data (ED) Vital Signs Vital Signs - 24 hr 03/16/24 13:28 03/16/24 13:36 03/16/24 16:16 Temperature 36.6 C 36.6 C Temperature Source Temporal Artery Scan Temporal Artery Scan Pulse Rate 129 H Pulse Rate [Finger] 89 Respiratory Rate 18 17 Respiratory Effort / Characteristics Non-Labored Respiratory Depth Normal Respiratory Pattern Regular Blood Pressure 135/97 Blood Pressure [Right Arm] 104/71 Blood Pressure Mean 109 Blood Pressure Mean [Right Arm] 82 Pulse Oximetry 99 99 Oxygen Delivery Method Room Air Sepsis Recent Fever Within 48 Hours No No Sepsis New/Unexplained Change in Mental Status N/A N/A Sepsis Action Taken by Nursing No Action Required No Action Required Home Medications Current Medication List: was personally reviewed by me Laboratory Data Attestation: I reviewed the patient's lab results. 03/16/24 14:20 03/16/24 14:20 Lab Results 03/16/24 Range/Units 14:20 WBC 6.02 (4.8-10.8) K/ul RBC 4.02 L (4.20-5.40) M/uL Hgb 12.7 (12.0-16.0) g/dl Hct 35.5 L (37.0-47.0) % MCV 88.3 (80.0-100.0) fL MCH 31.6 (25.0-34.0) pg MCHC 35.8 (32.0-36.0) g/dL RDW Std Deviation 39.9 (36.4-46.3) fL RDW Coeff of Angy 12.3 (11.5-14.5) % Plt Count 234 (130-400) K/uL MPV 10.8 (9.4-12.4) fL Immature Gran % (Auto) 0.3 % Neut % (Auto) 50.0 % Lymph % (Auto) 40.7 % [place] % (Auto) 7.5 % Eos % (Auto) 1.3 % Baso % (Auto) 0.2 % Neut # (Auto) 3.01 (1.40-6.50) K/uL Lymph # (Auto) 2.45 (1.20-3.40) K/uL [place] # (Auto) 0.45 (0.11-0.59) K/uL Eos # (Auto) 0.08 (0.00-0.50) K/uL Baso # (Auto) 0.01 (0.00-0.20) K/uL Immature Gran # (Auto) 0.02 (0.01-0.20) K/uL Sodium 140 (136-145) mmol/L Potassium 3.3 L (3.5-5.1) mmol/L Chloride 114 H (98-107) mmol/L Carbon Dioxide 19 L (21-32) mmol/L Anion Gap 7 (3-11) BUN 9 (6-23) mg/dl Creatinine 0.58 L (0.6-1.2) mg/dl Est Cr Clr Drug Dosing 140.3 ml/min Est GFR ( Amer) > 150.0 ml/min Est GFR (Non-Af Amer) 130.8 ml/min BUN/Creatinine Ratio 15.5 (10-20) Glucose 75 (70-99(Fasting)) mg/dl Calcium 7.7 L (8.6-10.3) mg/dl Magnesium 1.6 L (1.7-2.4) mg/dl Total Bilirubin 0.3 (0.2-1.0) mg/dl AST 11 L (13-39) U/L ALT 6 L (7-52) U/L Alkaline Phosphatase 59 (34-104) U/L Total Protein 6.1 (6.0-8.3) gm/dl Albumin 3.7 (3.4-5.0) gm/dl Globulin 2.4 L (2.5-4.0) gm/dl Albumin/Globulin Ratio 1.5 (0.9-2) Lipase 16 (11-82) U/L HCG, Qual Negative (Negative) Urine Color Yellow Urine Appearance Clear (Clear) Urine pH 6.5 (4.5-7.5) Ur Specific [place]land 1.032 H (1.000-1.030) Urine Protein Trace H (Negative) Urine Glucose (UA) Negative (Negative) Urine Ketones 1+ H (Negative) Urine Blood Negative (Negative) Urine Nitrite Negative (Negative) Urine Bilirubin Negative (Negative) Urine Urobilinogen Negative (Negative) Ur Leukocyte Esterase Trace H (Negative) Urine WBC (Auto) 0-5 (0-5) /hpf Urine RBC (Auto) 0-2 (0-2) /hpf U Hyaline Cast (Auto) 0-2 (0-2) /lpf U Epithel Cells (Auto) 6-10 H (0-2) /hpf Urine Bacteria (Auto) 3+ H (None Seen) Administered Medications Discontinued Medications Ioversol (Optiray 320 100ml) 94 ml IV ONCE ONE Stop: 03/16/24 17:50 Last Admin: 03/16/24 17:49 Dose: 94 ml Documented By: DORI Morphine Sulfate (Morphine Sulfate 4 Mg/Ml 1 Ml Carp\Vial) 4 mg IV Q30M PRN PRN Reason: Pain Stop: 03/30/24 17:24 Last Admin: 03/16/24 18:11 Dose: 4 mg Documented By: MES Morphine Sulfate (Morphine Sulfate 4 Mg/Ml 1 Ml Carp\Vial) 4 mg IV NOW STA Stop: 03/16/24 17:26 Last Admin: 03/16/24 17:34 Dose: 4 mg Documented By: JACOBO Ondansetron HCl (Ondansetron Inj 2 Mg/Ml 2 Ml Vial) 4 mg IV NOW STA Stop: 03/16/24 17:31 Last Admin: 03/16/24 17:34 Dose: 4 mg Documented By: JACOBO Imaging Data Attestation: I personally reviewed and interpreted this imaging study as follows: My Impression: CT of the abdomen and pelvis was obtained in the emergency department. My interpretation is no free air or signs of bowel obstruction, final report below. Radiologist's Impression: Abdomen/Pelvis CT 03/16/24 17:25 CT SCAN OF THE ABDOMEN AND PELVIS WITH IV CONTRAST CLINICAL HISTORY: Right lower quadrant abdominal pain. COMPARISON STUDY: Abdominal CT dated 01/02/2024. TECHNIQUE: Following the IV administration of 94 cc of Optiray 320, CT scan of the abdomen and pelvis is performed from the lung bases to the proximal femora. Images are reviewed in the axial, sagittal, and coronal planes. IV contrast was administered without complication. A dose lowering technique was utilized adhering to the principles of ALARA. CT DOSE: 773.05 mGy.cm FINDINGS: Lung bases: The heart is normal in size and without pericardial effusion. The lung bases are clear. Liver: The contrast-enhanced liver is normal in size, contour, and attenuation. Fatty infiltration is seen adjacent to the falciform ligament. There is no intrahepatic biliary ductal dilatation. The hepatic veins and portal veins are patent. Gallbladder: Unremarkable. Spleen: Normal in size and attenuation. Pancreas: Unremarkable. Adrenal glands: Unremarkable. Kidneys: The contrast enhanced kidneys are normal in size and without hydronephrosis. The kidneys enhance symmetrically. Abdominal vasculature: The abdominal aorta is normal in course and caliber. Bowel: A percutaneous jejunostomy tube from a right mid abdominal approach is unchanged in position. No bowel obstruction is seen. Mild fecal retention is seen throughout the colon The appendix is not identified and reported surgically absent. Peritoneum: There is no intraperitoneal free air or abdominal ascites. There is a small fat-containing umbilical hernia. Lymphadenopathy: None. Pelvic viscera: The bladder is normal as visualized. The uterus is surgically absent. There are bilateral ovarian follicles. An involuting follicle suggested on the left. There is a small to moderate volume of mildly complex free fluid in the cul-de-sac. Skeletal structures: No lytic or blastic lesions are seen. IMPRESSION: 1. There is a small to moderate volume of mildly complex free fluid in the cul-de-sac. This likely represents the sequelae of a ruptured hemorrhagic ovarian follicle/cyst. Correlate clinically. 2. A percutaneous jejunostomy tube is in place. No bowel obstruction is seen. 3. Additional findings as above. ACT 112: Negative or not required by law. Electronically signed by: Long Donahue M.D. 03/16/2024 6:20 PM Discharge Plan Visit Data Chief Complaint: Abdominal Pain Stated Complaint: ABD PAIN, NAUSEA, FEEDING TUBE ED Provider: Tai Boyle Discharge Problem: Ovarian cyst rupture, Abdominal pain, Vomiting Patient Disposition: Being Evaluated by Hospitalist Forms Stand Alone Forms: [facility] Prescriptions Prescriptions: No Action gabapentin 300 mg capsule 300 mg PO DAILY PRN (Reason: Pain) lansoprazole 15 mg capsule,delayed release(DR/EC) 30 mg PO DAILY PRN (Reason: Heartburn) ondansetron 4 mg tablet,disintegrating 4 mg PO TID PRN (Reason: Nausea And Vomiting) acetaminophen [Tylenol] 325 mg Tablet 625 mg PO QID PRN (Reason: Mild Pain (Scale Score 1-4)) naproxen 375 mg Tablet 375 mg PO BID Florajen Digestion 15 billion cell Capsule 1 cap PO DAILY oxycodone 5 mg/5 mL solution 5 mg PO Q4 PRN (Reason: Pain (Scale Score 7-10)) Referrals Referrals: Kinjal Reynoso PA-C [Primary Care Provider] - Discharge Problem: Abdominal pain Qualifiers: Abdominal location: generalized Qualified Code(s): R10.84 - Generalized abdominal pain Vomiting Qualifiers: Vomiting type: unspecified Nausea presence: with nausea Qualified Code(s): R 11.2 - Nausea with vomiting, unspecified
[2024-03-16] MEDS: OPTIRAY 320 100ml IV ONE (17:49)
[2024-03-16] MEDS: MoRPHine SULFATE 4 MG/ML 1 ML CARP\\VIAL IV PRN (18:11)
--- NOTE | 2024-03-16 18:22 | CT Scan Report ---
CT SCAN OF THE ABDOMEN AND PELVIS WITH IV CONTRAST CLINICAL HISTORY: Right lower quadrant abdominal pain. COMPARISON STUDY: Abdominal CT dated 01/02/2024. TECHNIQUE: Following the IV administration of 94 cc of Optiray 320, CT scan of the abdomen and pelvi s is performed from the lung bases to the proximal femora. Images are reviewed in the axial, sagittal , and coronal planes. IV contrast was administered without complication. A dose lowering technique wa s utilized adhering to the principles of ALARA. CT DOSE: 773.05 mGy.cm FINDINGS: Lung bases: The heart is normal in size and without pericardial effusion. The lung bases are clear. Liver: The contrast-enhanced liver is normal in size, contour, and attenuation. Fatty infiltration is seen adjacent to the falciform ligament. There is no intrahepatic biliary ductal dilatation. The hep atic veins and portal veins are patent. Gallbladder: Unremarkable. Spleen: Normal in size and attenuation. Pancreas: Unremarkable. Adrenal glands: Unremarkable. Kidneys: The contrast enhanced kidneys are normal in size and without hydronephrosis. The kidneys enh ance symmetrically. Abdominal vasculature: The abdominal aorta is normal in course and caliber. Bowel: A percutaneous jejunostomy tube from a right mid abdominal approach is unchanged in position. No bowel obstruction is seen. Mild fecal retention is seen throughout the colon The appendix is not identified and reported surgically absent. Peritoneum: There is no intraperitoneal free air or abdominal ascites. There is a small fat-containin g umbilical hernia. Lymphadenopathy: None. Pelvic viscera: The bladder is normal as visualized. The uterus is surgically absent. There are bilat eral ovarian follicles. An involuting follicle suggested on the left. There is a small to moderate vo lume of mildly complex free fluid in the cul-de-sac. Skeletal structures: No lytic or blastic lesions are seen. IMPRESSION: 1. There is a small to moderate volume of mildly complex free fluid in the cul-de-sac. This likely re presents the sequelae of a ruptured hemorrhagic ovarian follicle/cyst. Correlate clinically. 2. A percutaneous jejunostomy tube is in place. No bowel obstruction is seen. 3. Additional findings as above. ACT 112: Negative or not required by law. Electronically signed by: Long Donahue M.D. 03/16/2024 6:20 PM
[2024-03-16] MEDS ORDERED: oxyCODONE HCL IR 5 MG TAB (IMMEDIATE RELEASE) PO PRN (19:26)
[2024-03-16] MEDS ORDERED: ACETAMINOPHEN 325 MG TAB PO PRN (19:26)
[2024-03-16 20:18] LABS: Magnesium 1.6 mg/dl (1.7-2.4)
--- NOTE | 2024-03-16 20:34 | History & Physical Report ---
Date of Service March 16, 2024 Assessment & Plan (1) Abdominal pain: Plan: Acute on chronic abdominal pain History of gastroparesis History of opioid misuse/abuse as per records Secondary to ruptured ovarian cyst Dislodged J-tube bronchial asthma, patient without pulmonary complaints anxiety/mood disorder, at baseline hx endometriosis Hypokalemia 72 emesis ongoing vape use OBS GMF Analgesia, judicious narcotic use given history of gastroparesis/opioid abuse concerns (I told patient I was not comfortable giving her IV narcotics given emesis episodes.) [employer] consult re: ruptured ovarian cyst GI consult re: dislodged J-tube N.p.o. in anticipation of procedure Replace potassium DVT prophylaxis SCDs Full code Text document was generated using [employer] voice recognition software. It may contain grammatical or spelling errors. Kindly contact undersigned for clarification of any documentation item in question. History of Present Illness Chief Complaint: Worsening abdominal pain Primary Care Provider: Kinjal Reynoso PA-C History obtained from patient and records. Medical history significant for history of VT, bronchial asthma, chronic abdominal pain, gastroparesis status post J tube placement, anxiety/mood disorder, endometriosis, ongoing vape use, history of opioid abuse/misuse as per records. Last [facility] confinement December 2023 for abdominal pain and completion of antibiotic Rx for possible J site infection. Patient started by PCP on gabapentin for pain to wean off narcotics. Final oxycodone prescription from PCP given last month as per documentation. Patient underwent outpatient jejunostomy catheter exchange at [facility] last February 02, 2024. Eight [facility] ER visits since discharge from the hospital. Last [facility] ER visit 2 weeks ago for abdominal pain of unknown etiology. Patient experienced achy right lower quadrant pain yesterday. Some nausea and emesis. Usual BM. No hematuria or vaginal bleeding. No chest pain, no SOB, no headache, no nausea, no vomiting. Intractable discomfort at the ER. J-tube dislodged following emesis episode at the ER. Medical History as above Surgical History : Appendectomy, vascular procedure, gastrostomy/cecostomy placement, hysterectomy Family History : Migraine, PUD, IBS, thyroid disease, endometriosis Personal/Social history : Ongoing vape use, occasional EtOH intake, disabled Allergies Allergy/AdvReac Type Severity Reaction Status Date / Time metoclopramide [From Reglan] AdvReac Intermediate PSYCHO Verified 03/16/24 20:38 REACTIONS prochlorperazine AdvReac Intermediate Agitated Verified 03/16/24 20:38 [From Compazine] ondansetron [From Zofran] AdvReac Mild Flushing Verified 12/31/23 19:06 Home Medications Medication Instructions Recorded Confirmed Type L.acidophilus-B.animalis-B.longum 1 cap PO DAILY 01/10/24 03/16/24 History 15 billion cell capsule (Florajen Digestion) acetaminophen 325 mg tablet 625 mg PO QID PRN Mild Pain (Scale 01/10/24 03/16/24 History (Tylenol) Score 1-4) lansoprazole 15 mg capsule,delayed 30 mg PO DAILY PRN Heartburn 01/10/2403/16 History release naproxen 375 mg tablet 375 mg PO BID PRN Pain (Scale 01/10/24 03/16/24 History Score 1-3) ondansetron 4 mg disintegrating 4 mg PO TID PRN Nausea And Vomiting 01/10/24 03/16/24 History tablet oxycodone 5 mg/5 mL oral solution 5 mg PO Q4 PRN Pain (Scale Score 01/10/24 03/16/24 History 7-10) gabapentin 300 mg capsule 300 mg PO DAILY PRN Pain 03/16/24 03/16/24 History Past Med/Surg History Problem List (Updated 03/16/24 @ 20:47 by Tai Boyle DO) Vomiting (Acute) Abdominal pain (Acute) Ovarian cyst rupture (Acute) Gastroparesis Rupture of cyst of right ovary (Acute) Intractable abdominal pain (Acute) Abdominal pain (Acute) Dislodged jejunostomy tube (Acute) Adjustment disorder with mixed anxiety and depressed mood Nausea & vomiting Chronic female pelvic pain (Acute) Mood disorder (Acute) Endometriosis (Chronic) Chest pain (Acute) Internal hemorrhage (Acute) No known health problems (Chronic) Medical History Chronic abdominal pain Non-cardiac chest pain Surgical History H/O: hysterectomy Social History Smoking Status: Current some day smoker Tobacco Type: E-cigarettes / Vaping Second Hand Exposure: No; Do You Dip or Chew Tobacco: No; Hx Alcohol Use: No Hx Substance Use: Yes Last Used Substance: Days (ago) Last Used Substance Other:: last used "about a week ago" Substance Use Type Other:: Medical Marijuana - once a week. Preferred Language: Congolese Communication Ability: Effective Hydraulic Lift Driver Required: No Beliefs That Will Affect Care: None Current Living Situation: Family Current Living Situation Comment: Lives with Mother Feels Safe at Home: Yes Safety Concerns: Feels Safe At This Time Assistive Devices: None Review of Systems Review of Systems: As per HPI, all other systems reviewed and negative Physical Exam Physical Exam: GENERAL: uncomfortable, no respiratory distress SKIN: Normal color, warm HEENT: [place] palpebral conjunctivae, no ptosis, dry buccal mucosa NECK : Supple, no tenderness CHEST : CTA, no tenderness HEART : RRR, no obvious murmurs ABDOMEN: J-tube in place, some distention, hypogastric tenderness EXTREMITIES : No LE swelling/tenderness, no other conspicuous deformities noted NEUROLOGIC : Coherent, no facial asymmetry, no other gross focality Results & Data Results & Data Vital Signs (Past 12 Hours) Vital Signs Temp Pulse Pulse Resp BP BP Pulse Ox 03/16/24 16:16 89 17 104/71 99 03/16/24 13:36 36.6 C 129 H 18 135/97 99 03/16/24 13:28 36.6 C O2 Del Method 03/16/24 16:16 Room Air 03/16/24 13:36 03/16/24 13:28 Laboratory Results Laboratory Results WBC 6.02 K/ul (4.8-10.8) 03/16/24 14:20 RBC 4.02 M/uL (4.20-5.40) L 03/16/24 14:20 Hgb 12.7 g/dl (12.0-16.0) 03/16/24 14:20 Hct 35.5 % (37.0-47.0) L 03/16/24 14:20 MCV 88.3 fL (80.0-100.0) 03/16/24 14:20 MCH 31.6 pg (25.0-34.0) 03/16/24 14:20 MCHC 35.8 g/dL (32.0-36.0) 03/16/24 14:20 RDW Std Deviation 39.9 fL (36.4-46.3) 03/16/24 14:20 RDW Coeff of Angy 12.3 % (11.5-14.5) 03/16/24 14:20 Plt Count 234 K/uL (130-400) 03/16/24 14:20 MPV 10.8 fL (9.4-12.4) 03/16/24 14:20 Immature Gran % (Auto) 0.3 % 03/16/24 14:20 Neut % (Auto) 50.0 % 03/16/24 14:20 Lymph % (Auto) 40.7 % 03/16/24 14:20 [place] % (Auto) 7.5 % 03/16/24 14:20 Eos % (Auto) 1.3 % 03/16/24 14:20 Baso % (Auto) 0.2 % 03/16/24 14:20 Neut # (Auto) 3.01 K/uL (1.40-6.50) 03/16/24 14:20 Lymph # (Auto) 2.45 K/uL (1.20-3.40) 03/16/24 14:20 [place] # (Auto) 0.45 K/uL (0.11-0.59) 03/16/24 14:20 Eos # (Auto) 0.08 K/uL (0.00-0.50) 03/16/24 14:20 Baso # (Auto) 0.01 K/uL (0.00-0.20) 03/16/24 14:20 Immature Gran # (Auto) 0.02 K/uL (0.01-0.20) 03/16/24 14:20 Sodium 140 mmol/L (136-145) 03/16/24 14:20 Potassium 3.3 mmol/L (3.5-5.1) L 03/16/24 14:20 Chloride 114 mmol/L (98-107) H 03/16/24 14:20 Carbon Dioxide 19 mmol/L (21-32) L 03/16/24 14:20 Anion Gap 7 (3-11) 03/16/24 14:20 BUN 9 mg/dl (6-23) 03/16/24 14:20 Creatinine 0.58 mg/dl (0.6-1.2) L 03/16/24 14:20 Est Cr Clr Drug Dosing 140.3 ml/min 03/16/24 14:20 Est GFR ( Amer) > 150.0 ml/min 03/16/24 14:20 Est GFR (Non-Af Amer) 130.8 ml/min 03/16/24 14:20 BUN/Creatinine Ratio 15.5 (10-20) 03/16/24 14:20 Glucose 75 mg/dl (70-99(Fasting)) 03/16/24 14:20 Calcium 7.7 mg/dl (8.6-10.3) L 03/16/24 14:20 Magnesium 1.6 mg/dl (1.7-2.4) L 03/16/24 14:20 Total Bilirubin 0.3 mg/dl (0.2-1.0) 03/16/24 14:20 AST 11 U/L (13-39) L 03/16/24 14:20 ALT 6 U/L (7-52) L 03/16/24 14:20 Alkaline Phosphatase 59 U/L (34-104) 03/16/24 14:20 Total Protein 6.1 gm/dl (6.0-8.3) 03/16/24 14:20 Albumin 3.7 gm/dl (3.4-5.0) 03/16/24 14:20 Globulin 2.4 gm/dl (2.5-4.0) L 03/16/24 14:20 Albumin/Globulin Ratio 1.5 (0.9-2) 03/16/24 14:20 Lipase 16 U/L (11-82) 03/16/24 14:20 HCG, Qual Negative (Negative) 03/16/24 14:20 Urine Color Yellow 03/16/24 14:20 Urine Appearance Clear (Clear) 03/16/24 14:20 Urine pH 6.5 (4.5-7.5) 03/16/24 14:20 Ur Specific [place] 1.032 (1.000-1.030) H 03/16/24 14:20 Urine Protein Trace (Negative) H 03/16/24 14:20 Urine Glucose (UA) Negative (Negative) 03/16/24 14:20 Urine Ketones 1+ (Negative) H 03/16/24 14:20 Urine Blood Negative (Negative) 03/16/24 14:20 Urine Nitrite Negative (Negative) 03/16/24 14:20 Urine Bilirubin Negative (Negative) 03/16/24 14:20 Urine Urobilinogen Negative (Negative) 03/16/24 14:20 Ur Leukocyte Esterase Trace (Negative) H 03/16/24 14:20 Urine WBC (Auto) 0-5 /hpf (0-5) 03/16/24 14:20 Urine RBC (Auto) 0-2 /hpf (0-2) 03/16/24 14:20 U Hyaline Cast (Auto) 0-2 /lpf (0-2) 03/16/24 14:20 U Epithel Cells (Auto) 6-10 /hpf (0-2) H 03/16/24 14:20 Urine Bacteria (Auto) 3+ (None Seen) H 03/16/24 14:20 Impressions Abdomen/Pelvis CT 03/16/24 17:25 CT SCAN OF THE ABDOMEN AND PELVIS WITH IV CONTRAST CLINICAL HISTORY: Right lower quadrant abdominal pain. COMPARISON STUDY: Abdominal CT dated 01/02/2024. TECHNIQUE: Following the IV administration of 94 cc of Optiray 320, CT scan of the abdomen and pelvis is performed from the lung bases to the proximal femora. Images are reviewed in the axial, sagittal, and coronal planes. IV contrast was administered without complication. A dose lowering technique was utilized adhering to the principles of ALARA. CT DOSE: 773.05 mGy.cm FINDINGS: Lung bases: The heart is normal in size and without pericardial effusion. The lung bases are clear. Liver: The contrast-enhanced liver is normal in size, contour, and attenuation. Fatty infiltration is seen adjacent to the falciform ligament. There is no intrahepatic biliary ductal dilatation. The hepatic veins and portal veins are patent. Gallbladder: Unremarkable. Spleen: Normal in size and attenuation. Pancreas: Unremarkable. Adrenal glands: Unremarkable. Kidneys: The contrast enhanced kidneys are normal in size and without hydronephrosis. The kidneys enhance symmetrically. Abdominal vasculature: The abdominal aorta is normal in course and caliber. Bowel: A percutaneous jejunostomy tube from a right mid abdominal approach is unchanged in position. No bowel obstruction is seen. Mild fecal retention is seen throughout the colon The appendix is not identified and reported rodgers rgically absent. Peritoneum: There is no intraperitoneal free air or abdominal ascites. There is a small fat-containing umbilical hernia. Lymphadenopathy: None. Pelvic viscera: The bladder is normal as visualized. The uterus is surgically absent. There are bilateral ovarian follicles. An involuting follicle suggested on the left. There is a small to moderate volume of mildly complex free fluid in the cul-de-sac. Skeletal structures: No lytic or blastic lesions are seen. IMPRESSION: 1. There is a small to moderate volume of mildly complex free fluid in the cul-de-sac. This likely represents the sequelae of a ruptured hemorrhagic ovarian follicle/cyst. Correlate clinically. 2. A percutaneous jejunostomy tube is in place. No bowel obstruction is seen. 3. Additional findings as above. ACT 112: Negative or not required by law. Electronically signed by: Long Donahue M.D. 03/16/2024 6:20 PM (1) Abdominal pain Abdominal location: generalized Qualified Code(s): R10.84 - Generalized abdominal pain
[2024-03-16] MEDS ORDERED: hydrOXYzine HCl 10 MG TAB PO PRN (20:37)
[2024-03-16] MEDS: POTASSIUM CHLORIDE 20 MEQ in LACTATED RINGER'S 1,000 ML IV ONE (21:18)
[2024-03-16] MEDS: MAGNESIUM SULFATE / D5W 1 GM/100 ML BAG IV ONE (21:18)
[2024-03-16] MEDS: KETOROLAC TROMETHAMINE 15 MG/ML VIAL IV PRN (21:18)
--- OUTSIDE RECORDS SUMMARY | 2024-03-16 22:18 | External Medical Summary ---
Author Name Unknown Address Unknown Organization K1F:LABORATORY [facility] - [address] [address] Laboratory Report Ordering Provider Test Date Status ALVIN LOU 03/03/2024 22:40:00 Final Observation Date Value Abnormality Reference (Units ) Status WBC, Total 03/03/2024 22:40:00 5.93 4.00-10.80 (K/uL) Final RBC 03/03/2024 22:40:00 4.34 3.85-5.15 (M/uL) Final Hemoglobin 03/03/2024 22:40:00 13.6 12.0-15.3 (g/dL) Final HCT 03/03/2024 22:40:00 39.5 36.0-45.2 (%) Final MCV 03/03/2024 22:40:00 91.0 81.5-97.5 (fL) Final MCH 03/03/2024 22:40:00 31.3 27.0-34.0 (pg) Final MCHC 03/03/2024 22:40:00 34.4 32.0-36.0 (g/dL) Final RDW 03/03/2024 22:40:00 12.0 11.5-15.5 (%) Final Platelets 03/03/2024 22:40:00 251 140-400 (K/uL) Final MPV 03/03/2024 22:40:00 10.9 6.6-11.1 (fL) Final Nucleated erythrocytes/100 leukocytes [Ratio] in Blood by Automated count 03/03/2024 22:40:00 0 <=0 (/100 WBCs) Final Performing Location LABORATORY [facility] - [address] [address]
--- OUTSIDE RECORDS SUMMARY | 2024-03-16 22:18 | External Medical Summary ---
Author Name Unknown Address Unknown Organization K1F:LABORATORY [facility] - [address] [facility] [address] [place] [address] Laboratory Report Ordering Provider Test Date Status ALVIN LOU 02/17/2024 00:52:25 Final Observation Date Value Abnormality Reference (Units ) Status SYNC LEUKOCYTES IN BLOOD BY AUTOMATED COUNT 02/17/2024 00:52:25 10.72 4.00-10.80 (K/uL) Final Segs 02/17/2024 00:52:25 71.3 40.0-75.0 (%) Final Lymphs % 02/17/2024 00:52:25 22.4 18.0-42.0 (%) Final Monos 02/17/2024 00:52:25 5.2 1.0-11.0 (%) Final Eosinophils 02/17/2024 00:52:25 0.5 0.0-6.0 (%) Final Basos 02/17/2024 00:52:25 0.2 0.0-2.0 (%) Final Immature Granulocyte, Percent 02/17/2024 00:52:25 0.4 0.0-2.0 (%) Final Absolute Segs 02/17/2024 00:52:25 7.65 1.80-7.70 (K/uL) Final Lymphs, absolute 02/17/2024 00:52:25 2.40 1.00-4.80 (K/ul) Final Monos, Abs 02/17/2024 00:52:25 0.56 0.00-1.10 (K/uL) Final Eos, Abs 02/17/2024 00:52:25 0.05 0.00-0.70 (K/uL) Final Basos, Abs 02/17/2024 00:52:25 0.02 0.00-0.20 (K/uL) Final Immature Granulocytes, Number 02/17/2024 00:52:25 0.04 0.00-0.20 (K/uL) Final Performing Location LABORATORY [facility] - [address] [place] [address]
--- OUTSIDE RECORDS SUMMARY | 2024-03-16 22:18 | External Medical Summary ---
Author Name Unknown Address Unknown Organization K1F:LABORATORY [facility] - [address] [address] Laboratory Report Ordering Provider Test Date Status ALVIN LOU 03/03/2024 22:40:00 Final Observation Date Value Abnormality Reference (Units ) Status Lipase 03/03/2024 22:40:00 31 13-60 (U/L ) Final Performing Location LABORATORY [facility] - [address] [address]
--- OUTSIDE RECORDS SUMMARY | 2024-03-16 22:18 | External Medical Summary | Summary of Care ---
Author Name Unknown Organization [facility] Address [address] [place] [address] Phone [phone] Care Team Providers Care [employer] Outfitter Name Role Phone Kinjal Reynoso PA-C Primary Care Provider [phone] Reason for Visit * Reason Comments Abdominal Pain * Auth/Cert Specialty Diagnoses / Procedures Referred By Contdulce t Referred To Contact [facility] [address] [place] [address] Phone: [phone] Emergency Medicine [address] [address] Referral ID Status Reason Start Date Expiration Date Visits Re quested Visits Authorized [id number] Encounter Details Date Type Department Care Team ([facility] Contact Info) Description 03/03/2024 9:52 PM EDT - 03/04/2024 3:28 AM EDT Emergency [facility] Emergency Department ([facility]) [address] [place] [address] Rolo Cruz MD [address], [place] [id number] Carlos Bowles MD [address] [place] [id number] Abdominal pain of unknown etiology (Primary Dx) Discharge Disposition: Home - Self [...] as of this encounter (statuses as of 03/04/2024) Medications Medication Sig Dispensed Refills Start Date End Date Status Naloxone HCl 4 MG/0.1ML Nasal Liquid (Narcan Nasal)Indications:C hronic pelvic pain in female,MEDICATION USE AGREEMENT,Chronic abdominal pain ADMINISTER 1 SPRAY INTO 1 NOSTRIL FOR SUSPECTED OPIOID OVERDOSE - SEEK IMMEDIATE MEDICAL ATTENTION. [email or web address] 2 Each 3 03/31/2023 Active Polyethylene Glycol [...] as directed, through J-tube via feeding pump. 12504 mL 11 10/05/2023 Active Peptamen AF Oral Liquid Administer 1,000 mL over 12 hours into J tube 4 times a day. 63159 mL 11 09/30/2023 5 Active Enteral Feeding Piston Syringe Use as directed. 30 Each 11 09/30/2023 Active Albuterol Sulfate HFA 108 (90 Base) [...] Pain, Moderate. 472 mL 5 01/11/2024 Active Lurasidone HCl 40 MG Oral Tablet (Latuda) Take 1 tablet by mouth every night with meals 15 Tablet 02/08/2024 Active ARIPiprazole 5 MG Oral Tablet (Abilify) Take 1 tablet by mouth every night at bedtime 15 Tablet 02/25/2024 Active Gabapentin 300 MG Oral Capsule (Neurontin) Take 1 Capsule by mouth in the morning and 1 Capsule at noon and 1 Capsule in the evening and 1 Capsule before bedtime. 120 Capsule 03/04/2024 4 Active Gabapentin 300 MG Oral Capsule (Neurontin)Indicati ons:Chronic pelvic pain in female Take 1 Capsule by mouth in the morning and 1 Capsule at noon and 1 Capsule before bedtime. 90 Capsule 2 01/20/2024 4 Discontinu ed(Medicat ion/Dose Changed) documented as of this encounter (statuses as of 03/04/2024) Active Problems Problem Noted Date Diagnosed Date [...] urine 03/17/2022 Adjustment disorder with depressed mood 07/29/20 22 PTSD (post-traumatic stress disorder) 01/16/2022 Gastroesophageal reflux dise ase with esophagitis without hemorrhage 07/23/2021 Chronic pelvic pain in female 07/23/2021 Status post hysterectomy 05/01/2021 Dysmenorrhea 11/03/2020 Endometriosis 10/30/2020 Medical marijuana use 03/29/2020 Endometriosis 06/06/2019 documented as of this encounter (statuses as of 03/04/2024) Resolved Problems Problem Noted Date Diagnosed Date [...] as of this encounter (statuses as of 03/04/2024) Immunizations Name Administration Dates Next Due DTaP [...] Tobacco: Never Alcohol Use Standard Drinks/Week Comments Yes 0 (1 standard drink = 0.6 oz [...] Sign Reading Time Taken Comments Blood Pressure 105/78 03/04/2024 2:00 AM EDT Pulse 61 03/04/2024 2:00 AM EDT Temperature 36.4 C (97.5 F) 03/03/2024 9:50 PM ED T Respiratory Rate 16 03/04/2024 2:00 AM EDT Oxygen Saturation 100% 03/04/2024 2:00 AM EDT Inhaled Oxygen Concentration - - Weight 71.7 kg (158 lb) 03/03/2024 9:50 PM EDT Height 157.5 cm (5' 2") 03/03/2024 9:50 PM EDT Body Mass Index 28.9 03/03/2024 9:50 PM EDT documented in this encounter Functional [...] * Discharge Instructions* Carlos Bowles MD - 03/04/2024 3:13 AM EDT Please follow-up with your regular doctor the next available appointment for emergency department follow-up. Please return to the emergency department in the meantime for any new or worsening symptoms otherwise. documented in this encounter ED Notes * Carlos Bowles MD - 03/04/2024 3:13 AM EDT Transfer of care: pain in abdomen tonight. RUQ, R flank. US RUQ pending. Labs unremarkable, UA clean for infection or hematuria. Patient has had many CT scans prior for similar issues. Prior history of hysterectomy, appendectomy. Carlos Bowles MD Emergency Medicine, [facility] Right upper quadrant ultrasound negative. Patient's entire workup today has been overall unremarkable. I find no strong indication for repeatadvanced imaging with CT scan at this time. Recommended PCP follow-up. Return precautions given. Discharged home in stable condition. Carlos Bowles MD Emergency Medicine, [facility] * Rolo Cruz MD - 03/03/2024 11:20 PM EDT Images from the original note were not included. HISTORY OF PRESENT ILLNESS Anirudh Peñaloza is a 23 year old female who presents to the ED for evaluation of Abdominal Pain. The patient was seen at 03/03/24 2320. Patient presents to the ED for abdominal pain. Per patient this has been ongoing for 2-3 days. Patient with an extensive abdominal surgical history. Patient with her appendix removed, hysterectomy, and J tube placement in the right lower abdomen. Patient states that the pain feels worse in the right lower quadrant. Patient with nausea, denies vomiting. Also with diarrhea that has been ongoing for10 days when patient goes to the bathroom. Patient uses the j tube for feeding and medications. Denies recent changes with feeding. Patient denies urinary retention, frequency, hematuria or dysuria Pt says that she has been having abd and back pain that started around 0300 yesterday. +nausea and diarrhea. Denies vomiting. Denies fever/chills. Has had abdominal pain and back pain for couple days which seems different than her usual symptoms it seems to be a bit lower than it has been in the past subjectively. She has had longstanding issues with abdominal problems and has had jejunostomy feeding tube placed, in the past this had been giving her pain with injection of feeds she says a new tube has been placed and this actually does not hurt when she injects the liquids. She is hungry from time to time and tries to eat food here and there but over the past several days she was actually significantly decrease her appetite. She has noticed diarrhea times about 10 days no blood or mucus she thinks she is probably behind on her liquids, getting dehydrated. Has jejunostomy right abdomen, has some drainage from there which ended up being positive for Pseudomonas, she got on Cipro and that went away. Has had prior cellulitis type issue which was also positive for Pseudomonas at that time and also at that time responded to Cipro. In the setting of her chronic abdominal pain and multiple prior operations she has also had chronicback pain, she stopped tizanidine as she says it did not help she has had benefit from gabapentin she is still taking that is currently 300 mg 3 times a day has not been increased in quite awhile. Had prior appendectomy had prior hysterectomy still has gallbladder Has chronic back pain but the only MRI I can find in our records thus far is MRI of brain, she has had significant amount of her medical care in [facility] in the [facility]. Abdominal Pain Review of Systems Gastrointestinal: Positive for abdominal pain. The patient's allergies, past history, and medications were reviewed. PHYSICAL EXAM Initial Vitals (see all): BP 130/86 | Pulse 101 | Resp 18 | Temp 97.5 | O2 100 %Weight 71.67 kg | Height 157.5 cm | BMI 28.9 kg/m2 Initial Pain Assessment (see all): 8 (severe pain)/10, location: abd ([facility] Adult Scale 0-10) Physical Exam Vitals and nursing note reviewed. Constitutional: General: She is in acute distress. Appearance: She is well-developed. HENT: Head: Normocephalic. Right Ear: External ear normal. Left Ear: External ear normal. Mouth/Throat: Pharynx: Oropharynx is clear. Eyes: Conjunctiva/sclera: Conjunctivae normal. Neck: Trachea: No tracheal deviation. Pulmonary: Effort: Pulmonary effort is normal. Abdominal: General: There is no distension. Tenderness: There is generalized abdominal tenderness and tenderness in the right upper quadrant. There is right CVA tenderness. Comments: Mild generalized abdominal tenderness, moderate right upper quadrant tenderness Musculoskeletal: General: No deformity. Thoracic back: Tenderness present. Lumbar back: Tenderness present. Back: Skin: Findings: No rash. Neurological: Mental Status: She is alert. GCS: GCS eye subscore is 4. GCS verbal subscore is 5. GCS motor subscore is 6. Psychiatric: Attention and Perception: Attention normal. Behavior: Behavior is cooperative. PROCEDURES AND TREATMENTS ED Orders | ED Results MEDICAL DECISION MAKING Nursing notes and vital signs were reviewed. ED Course as of 03/04/24 0314 Sat Mar 04, 2024 0000 Gabapentin increase today to 300 mg QID [RO] 0049 Specific [place], Urine(!): 1.032 [RO] 0049 Glucose, Urine: Negative [RO] 0049 Bilirubin, Urine: Negative [RO] 0049 Esterase, Urine: Negative [RO] 0049 Nitrite, Urine: Negative [RO] 0049 WBC: 5.93 [RO] 0049 HGB: 13.6 [RO] 0049 Lipase: 31 [RO] 0049 Estimated Glomerular Filtration Rate: >90 [RO] 0050 CO2: 23 [RO] 0050 Potassium: 3.9 [RO] 0050 Sodium: 140 [RO] 0050 Bilirubin, Total: <0.2 Testing thus far generally reassuring [RO] 0052 Transfer of care: pain in abdomen tonight. RUQ, R flank. US RUQ pending. Labs unremarkable, UA clean for infection or hematuria. Patient has had many CT scans prior for similar issues. Prior history of hysterectomy, appendectomy. [MM] 0244 Right upper quadrant ultrasound negative [MM] ED Course User Index [MM] Carlos Bowles MD [RO] Rolo Cruz MD Young adult female who unfortunately has had extensive history of abdominal problems and abdominal surgeries, gets significant amount of her calories via jejunostomy tube which fortunately at this point is working better than it has been in the past, however having right upper quadrant pain which she thinks of as feeling like a new problem, has had prior gallbladder ultrasound more than a year ago showing no stones has tenderness right flank and right paraspinal thoracolumbar muscles, on prior encounters it seemed to me like she had radicular symptoms and she does get some benefit from gabapentin, has been on 300 mg 3 times a day, I recommend increasing to 300 mg 4 times a day as of this visit, ongoing workup regarding what might be potential cause of right upper quadrant pain, has had diarrhea recently however without blood or mucus. She is aware that I and the other members of my group feel that given the number of CT scan she has had so early in life we need to try hard to limit her lifetime radiation exposure at this point to try to limit her chance of iatrogenic neoplastic change in her abdominal cavity, patient in general agrees with making efforts in this direction. Amount and/or Complexity of Data Reviewed Labs: ordered. Decision-making details documented in ED Course. Radiology: ordered. Risk Prescription drug management. Clinical Impressions None Disposition No disposition documented. Rolo Cruz * Rashmi Morales RN - 03/03/2024 9:49 PM EDT Pt says that she has been having abd and back pain that started around 0300 yesterday. +nausea and diarrhea. Denies vomiting. Denies fever/chills. documented in this encounter Miscellaneous Notes * ED Service Desk Agent Note - Zaida Bolaños RN - 03/04/2024 3:28 AM EDT Discharge instructions reviewed with patient who verbalized understanding. Patient to follow up with PCP and return to the ED for new or worsening symptoms. Needle removed from patient port. Patient ambulated from the unit with a strong and steady gait with all belongings. * ED Service Desk Agent Note - Zaida Bolaños RN - 03/03/2024 11:05 PM EDT Patient presents to the ED for abdominal pain. Per patient this has been ongoing for 2-3 days. Patient with an extensive abdominal surgical history. Patient with her appendix removed, hysterectomy, and J tube placement in the right lower abdomen. Patient states that the pain feels worse in the right lower quadrant. Patient with nausea, denies vomiting. Also with diarrhea that has been ongoing for10 days when patient goes to the bathroom. Patient uses the j tube for feeding and medications. Denies recent changes with feeding. Patient denies urinary retention, frequency, hematuria or dysuria. Patient alert and oriented, respirations equal and unlabored, abdomen soft, tender in the right upper and lower quadrants, bowel sounds present. documented in this encounter Plan of Treatment Upcoming Encounters Date Type Department Care Team (Late st Contact Info) Description 03/25/2024 9:20 AM EDT Office Visit [facility] [address] [phone] Kinjal Reynoso PA-C [address] [phone] Health Maintenance Due Date Last Done Comments HPV (Gardasil) Vaccine (1 - 3-dose series) 2016 COVID-19 Vaccine (2023-2 5 season) 2024 Influenza Vaccine (FLU shot) (#1) 2024 Gonorrhea / Chlamydia Screen 05/02/202405/2023, 12/09/2022, 05/31/2022, Additional history exists Depression Screening 07/23/2024 07/23/2023 DTap/Tdap Vaccines (7 - Td o r Tdap) 01/03/2031 01/03/2021, 02/28/2016, 01/18/2007, Additional history exists Pneumococcal Vaccine: Pediat rics (0 to 5 Years) and At-Risk Patients (6 to 64 Years) Completed 11/27/2002, 07/03/2002, 04/18/2002, Additional history exists Hepatitis B Vaccine Completed 01/18/2007, 07/03/2002, 2001 MENINGOCOCCAL (MENACTRA/MENVEO) Completed 02/22/2019, 02/28/2016, 02/28/2016 documented as of this encounter Medical Devices Implanted Type Area Roll Forger Device Identifier Shelf Expiration Date Model / Serial / Lot Port Implant W/8f Poly Cath - [id number] Implanted:Qty : 1 on 05/18/2023 by Juan Jose Connell DO at OR [facility] Right: Chest CR BARD : PERIPHERAL VASCULAR [id number] 11/18/2024 [id number] / / [id number] documented as of this encounter Procedures Procedure Name Priority Date/Time Associated Diagnosis Comments US ABDOMEN LIMITED STAT 03/04/2024 12 :55 AM EDT URINALYSIS, REFLEX TO MICROSCOPIC STAT 03/03/2024 11:00 PM EDT EXTRA LIGHT BLUE TOP STAT 03/03/2024 10:40 PM EDT DIFFERENTIAL, AUTOMATED STAT 03/03/2024 10:40 PM EDT COMPREHENSIVE METABOLIC PANEL STAT 03/03/2024 10:40 PM EDT CBC STAT 03/03/2024 10:40 PM EDT LIPASE STAT 03/03/2024 10:40 PM EDT CBC STAT 03/03/2024 10:40 PM EDT documented in this encounter Results * US ABDOMEN LIMITED (03/04/2024 12:55 AM EDT) Anatomical Region Laterality Modality Abdomen, Body Ultrasound 03/04/2024 12:4 5 AM EDT Impressions 03/04/2024 2:43 AM EDT IMPRESSION: No acute findings. THIS DOCUMENT HAS BEEN ELECTRONICALLY SIGNED BY ROBERT MCDANIEL MD Narrative 03/04/2024 2:43 AM EDT PROCEDURE INFORMATION: Exam: US Abdomen, Limited; Right Upper Quadrant Exam date and time: 03/04/2024 12:45 AM Age: 23 years old Clinical indication: Abdominal pain; Generalized; Additional info: Ruq pain TECHNIQUE: Imaging protocol: Real time ultrasound of the abdomen with image documentation. Limited exam focused on the right upper quadrant. COMPARISON: US PELVIS TRANS-VAGINAL NON-OB 02/02/2023 6:46 AM FINDINGS: Liver: Mild hyperechoic, likely representing the upper limits of normal. No masses. Gallbladder: Normal. No gallstones. There is no gallbladder wall thickening. Sonographic Edwards's sign is negative. Biliary ducts: Normal. No stones. No dilation measuring 0.2 cm. Pancreas: Limited visualization of the pancreas Right kidney: Normal. No mass. No hydronephrosis. Procedure Note Robert Mcdaniel MD - 03/04/2024 PROCEDURE INFORMATION: Exam: US Abdomen, Limited; Right Upper Quadrant Exam date and time: 03/04/2024 12:45 AM Age: 23 years old Clinical indication: Abdominal pain; Generalized; Additional info: Ruqpain TECHNIQUE: Imaging protocol: Real time ultrasound of the abdomen with imagedocumentation. Limited exam focused on the right upper quadrant. COMPARISON: US PELVIS TRANS-VAGINAL NON-OB 02/02/2023 6:46 AM FINDINGS: Liver: Mild hyperechoic, likely representing the upper limits of normal.No masses. Gallbladder: Normal. No gallstones. There is no gallbladder wallthickening. Sonographic Edwards's sign is negative. Biliary ducts: Normal. No stones. No dilation measuring 0.2 cm. Pancreas: Limited visualization of the pancreas Right kidney: Normal. No mass. No hydronephrosis. IMPRESSION IMPRESSION: No acute findings. THIS DOCUMENT HAS BEEN ELECTRONICALLY SIGNED BY ROBERT MCDANIEL MD Rolo Cruz MD RAD ULTRASOUND * (ABNORMAL) URINALYSIS, REFLEX TO MICROSCOPIC (03/03/2024 11:00 PM EDT) Color, Urine Yellow Light Yellow, Yellow, Dark Yellow 03/03/2024 11:22 PM EDT LABORATORY [facility] Clarity, Urine Clear Clear 03/03/2024 11:22 PM EDT LABORATORY [facility] Glucose, Urine Negative Negative mg/dL 03/03/2024 11:22 PM EDT LABORATORY [facility] Bilirubin, Urine Negative Negative 03/03/2024 11:22 PM EDT LABORATORY [facility] Ketone, Urine Negative Negative mg/dL 03/03/2024 11:22 PM EDT LABORATORY [facility] Specific [place], Urine 1.032(H) 1.003 - 1.030 03/03/2024 11:22 PM EDT LABORATORY [facility] Blood, Urine Negative Negative 03/03/2024 11:22 PM EDT LABORATORY [facility] pH, Urine 6.0 5.0 - 7.5 Units 03/03/2024 11:22 PM EDT LABORATORY GL Protein, Urine Negative Negative mg/dL 03/03/2024 11:22 PM EDT LABORATORY [facility] Urobilinogen, Urine 0.2 0.2, 1.0 mg/dL 03/03/2024 11:22 PM EDT LABORATORY [facility] Nitrite, Urine Negative Negative 03/03/2024 11:22 PM EDT LABORATORY [facility] Esterase, Urine Negative Negative 11:22 PM EDT LABORATORY [facility] Comment, Urine 03/03/2024 11:22 PM EDT LABORATORY [facility] Comment:Screen negative - Mi croscopic not performed. Urine Urine specimen obtained by clean catch procedure / Unknown Non-blood Collection / Unknown 03/03/2024 11:00 PM EDT 03/03/2024 11:04 PM EDT Carlos Bowles MD LAB URINE ORDERABLES LABORATORY [address] [address] * (ABNORMAL) DIFFERENTIAL, AUTOMATED (03/03/2024 10:40 PM EDT) WBC 5.93 4.00 - 10.80 K/uL 03/03/2024 11:21 PM EDT LABORATORY GL Neutrophils % 38.0(L) 40.0 - 75.0 % 03/03/2024 11:21 PM EDT LABORATORY [facility] Lymphocytes % 53.3(H) 18.0 - 42.0 % 03/03/2024 11:21 PM EDT LABORATORY [facility] Monocytes % 5.9 1.0 - 11.0 % 03/03/2024 11:21 PM EDT LABORATORY [facility] Eosinophils % 1.7 0.0 - 6.0 % 03/03/2024 11:21 PM EDT LABORATORY [facility] Basophils % 0.3 0.0 - 2.0 % 03/03/2024 11:21 PM EDT LABORATORY [facility] Immature Granulocytes % 0.8 0.0 - 2.0 % 03/03/2024 11:21 PM EDT LABORATORY [facility] Absolute Neutrophils 2.25 1.80 - 7.70 K/uL 03/03/2024 11:21 PM EDT LABORATORY [facility] Absolute Lymphocytes 3.16 1.00 - 4.80 K/ul 03/03/2024 11:21 PM EDT LABORATORY [facility] Absolute Monocytes 0.35 0.00 - 1.10 K/uL 03/03/2024 11:21 PM EDT LABORATORY [facility] Absolute Eosinophils 0.10 0.00 - 0.70 K/uL 03/03/2024 11:21 PM EDT LABORATORY [facility] Absolute Basophils 0.02 0.00 - 0.20 K/uL 03/03/2024 11:21 PM EDT LABORATORY [facility] Absolute Immature Granulocytes 0.05 0.00 - 0.20 K/uL 03/03/2024 11:21 PM EDT LABORATORY [facility] Blood Venous blood specimen / Unknown Venipuncture / Unknown 03/03/2024 10:40 PM EDT 03/03/2024 10:43 PM EDT Carlos Bowles MD LAB BLOOD ORDERABLES LABORATORY [address] [address] * CBC (03/03/2024 10:40 PM EDT) Pathologist [facility] WBC 5.93 4.00 - 10.80 K/uL 03/03/2024 11:21 PM EDT LABORATORY [facility] RBC 4.34 3.85 - 5.15 M/uL 03/03/2024 11:21 PM EDT LABORATORY GL HGB 13.6 12.0 - 15.3 g/dL 03/03/2024 11:21 PM EDT LABORATORY [facility] HCT 39.5 36.0 - 45.2 % 03/03/2024 11:21 PM EDT LABORATORY GL MCV 91.0 81.5 - 97.5 fL 03/03/2024 11:21 PM EDT LABORATORY [facility] MCH 31.3 27.0 - 34.0 pg 03/03/2024 11:21 PM EDT LABORATORY GL MCHC 34.4 32.0 - 36.0 g/dL 03/03/2024 11:21 PM EDT LABORATORY [facility] RDW 12.0 11.5 - 15.5 % 03/03/2024 11:21 PM EDT LABORATORY GL PLT 251 140 - 400 K/uL 03/03/2024 11:21 PM EDT LABORATORY [facility] MPV 10.9 6.6 - 11.1 fL 03/03/2024 11:21 PM EDT LABORATORY GL nRBCs 0 <=0 /100 WBCs 03/03/2024 11:21 PM EDT LABORATORY [facility] Blood Venous blood specimen / Unknown Venipuncture / Unknown 03/03/2024 10:40 PM EDT 03/03/2024 10:43 PM EDT Carlos Bowles MD LAB BLOOD ORDERABLES Performing Organization Address City/[facility]/ZIP Co de Phone Number LABORATORY [address] [address] * EXTRA LIGHT BLUE TOP (03/03/2024 10:40 PM EDT) Blood Venous blood specimen / Unknown Venipuncture / Unknown 03/03/2024 10:40 PM EDT 03/03/2024 10:43 PM EDT Carlos Bowles MD LAB BLOOD ORDERABLES LABORATORY [address] [address] * LIPASE (03/03/2024 10:40 PM EDT) Lipase 31 13 - 60 U/L 03/03/2024 11:05 PM EDT LABORATORY [facility] Blood Venous blood specimen / Unknown Venipuncture / Unknown 03/03/2024 10:40 PM EDT 03/03/2024 10:44 PM EDT Carlos Bowles MD LAB BLOOD ORDERABLES LABORATORY [facility] [address] [place] [address] * (ABNORMAL) COMPREHENSIVE METABOLIC PANEL (03/03/2024 10:40 PM EDT) BUN 12 6 - 20 mg/dL 03/03/2024 11:05 PM EDT LABORATORY [facility] Creatinine 0.7 0.5 - 1.0 mg/dL 03/03/2024 11:05 PM EDT LABORATORY [facility] Estimated Glomerular Filtration Rate >90 >=60 mL/min 03/03/2024 11:05 PM EDT LABORATORY [facility] Comment:eGFR is calculated b ased on the CKD-EPI 2020 equation. Sodium 140 135 - 146 mmol/L 03/03/2024 11:05 PM EDT LABORATORY [facility] Potassium 3.9 3.5 - 5.1 mmol/L 03/03/2024 11:05 PM EDT LABORATORY [facility] Chloride 106 98 - 107 mmol/L 03/03/2024 11:05 PM EDT LABORATORY [facility] CO2 23 22 - 32 mmol/L 03/03/2024 11:05 PM EDT LABORATORY [facility] Anion Gap 11 7 - 15 mmol/L 03/03/2024 11:05 PM EDT LABORATORY [facility] Glucose 103 70 - 120 mg/dL 03/03/2024 11:05 PM EDT LABORATORY [facility] Albumin 3.9 3.8 - 5.0 g/dL 03/03/2024 11:05 PM EDT LABORATORY [facility] AST 14 10 - 35 U/L 03/03/2024 11:05 PM EDT LABORATORY [facility] Alkaline Phosphatase 91 35 - 130 U/L 03/03/2024 11:05 PM EDT LABORATORY [facility] Bilirubin, Total <0.2 <=1.2 mg/dL 03/03/2024 11:05 PM EDT LABORATORY [facility] Calcium 9.3 8.4 - 10.2 mg/dL 03/03/2024 11:05 PM EDT LABORATORY [facility] Protein 6.9 6.0 - 8.3 g/dL 03/03/2024 11:05 PM EDT LABORATORY [facility] ALT 6(L) 10 - 35 U/L 03/03/2024 11:05 PM EDT LABORATORY [facility] Blood Venous blood specimen / Unknown Venipuncture / Unknown 03/03/2024 10:40 PM EDT 03/03/2024 10:44 PM EDT Carlos Bowles MD LAB BLOOD ORDERABLES LABORATORY [facility] [address] [place] [address] documented in this encounter Visit Diagnoses Diagnosis Abdominal pain of unknown etiology- Primary Abdominal pain, unspecified site documented in this encounter Administered Medications Inactive Administered Medications - up to 3 most recent administrations Medication Order MAR Action Action Date Dose Rate Site Gabapentin (Neurontin) cap 300 mg 300 mg, Oral, ONCE, On 03/04/24 at 0045, For 1 dose Given 03/04/2024 1:03 AM EDT 300 mg HYDROmorphone (Dilaudid) inj 0.5 mg 0.5 mg, IV Push, ONCE, On 03/04/24 at 0045, For 1 dose Given 03/04/2024 12:30 AM EDT 0.5 mg NSS 0.9% 1,000 mL bolus infusion Peripheral IV, at 1,000 mL/hr Administer over 60 Minutes, Administer entire volume within 60 minutes or less., ONCE, 1 dose, On 03/04/24 at 0045 New Bag 03/04/2024 12:29 AM EDT 1,000 mL 1000 mL/hr ondansetron (Zofran) inj 4 mg 4 mg, IV Push, ONCE, On 03/04/24 at 0045, For 1 dose Given 03/04/2024 12:30 AM EDT 4 mg documented in this encounter Active and Recently Administered Medications Times are shown in EDT. Scheduled Medication Order 03/02/2024 03/03/2024 03/04/2024 Gabapentin (Neurontin) cap 300 mg (COMPLETED) 300 mg, Oral, ONCE, On 03/04/24 at 0045, For 1 dose 0103 (Given - Provid er: Zaida Bolaños RN) HYDROmorphone (Dilaudid) inj 0.5 mg (COMPLETED) 0.5 mg, IV Push, ONCE, On 03/04/24 at 0045, For 1 dose 0030 (Given - Provid er: Zaida Bolaños RN) NSS 0.9% 1,000 mL bolus infusion (COMPLETED) Peripheral IV, at 1,000 mL/hr Administer over 60 Minutes, Administer entire volume within 60 minutes or less., ONCE, 1 dose, On 03/04/24 at 0045 0029 (New Bag - Prov ider: Zaida Bolaños RN)0202 (Stopped - Provider: Zaida Bolaños RN) ondansetron (Zofran) inj 4 mg (COMPLETED) 4 mg, IV Push, ONCE, On 03/04/24 at 0045, For 1 dose 0030 (Given - Provid er: Zaida Bolaños RN) documented in this encounter Advance Directives [...] Advance Directives occurred with: Patient Care Teams Wood And Hardware Outfitter Relationship Specialty Start Date End Date Kinjal Reynoso PA-C [address] [address] PCP - General Physician Senior Information Systems Architect 11/05/22 documented as of this encounter
--- OUTSIDE RECORDS SUMMARY | 2024-03-16 22:18 | External Medical Summary ---
Author Name Unknown Address Unknown Organization K1F:LABORATORY [facility] - [address] [facility] [place] [address] Laboratory Report Ordering Provider Test Date Status ALVIN LOU 03/03/2024 22:40:00 Final Observation Date Value Abnormality Reference (Units ) Status SYNC LEUKOCYTES IN BLOOD BY AUTOMATED COUNT 03/03/2024 22:40:00 5.93 4.00-10.80 (K/uL) Final Segs 03/03/2024 22:40:00 38.0 Below low normal 40.0-75.0 (%) Final Lymphs % 03/03/2024 22:40:00 53.3 Above high normal 18.0-42.0 (%) Final Monos 03/03/2024 22:40:00 5.9 1.0-11.0 (%) Final Eosinophils 03/03/2024 22:40:00 1.7 0.0-6.0 (%) Final Basos 03/03/2024 22:40:00 0.3 0.0-2.0 (%) Final Immature Granulocyte, Percent 03/03/2024 22:40:00 0.8 0.0-2.0 (%) Final Absolute Segs 03/03/2024 22:40:00 2.25 1.80-7.70 (K/uL) Final Lymphs, absolute 03/03/2024 22:40:00 3.16 1.00-4.80 (K/ul) Final Monos, Abs 03/03/2024 22:40:00 0.35 0.00-1.10 (K/uL) Final Eos, Abs 03/03/2024 22:40:00 0.10 0.00-0.70 (K/uL) Final Basos, Abs 03/03/2024 22:40:00 0.02 0.00-0.20 (K/uL) Final Immature Granulocytes, Number 03/03/2024 22:40:00 0.05 0.00-0.20 (K/uL) Final Performing Location LABORATORY [facility] - [address] [place] [address]
--- OUTSIDE RECORDS SUMMARY | 2024-03-16 22:18 | External Medical Summary ---
Author Name Unknown Address Unknown Organization K1F:LABORATORY [facility] - [address] [facility] [place] [address] Laboratory Report Ordering Provider Test Date Status ALVIN LOU 03/03/2024 22:40:00 Final Observation Date Value Abnormality Reference (Units ) Status BUN 03/03/2024 22:40:00 12 6-20 (mg/dL) Final Creatinine 03/03/2024 22:40:00 0.7 0.5-1.0 (mg/dL) Final Glomerular filtration rate/1.73 sq M.predicted [Volume Rate/Area] in Serum, Plasma or Blood by Creatinine-based formula (CKD-EPI) 03/03/2024 22:40:00 >90 >=60 (mL/min) Final eGFR is calculated based on the CKD-EPI 2020 equation. Sodium 03/03/2024 22:40:00 140 135-146 (m mol/L) Final Potassium 03/03/2024 22:40:00 3.9 3.5-5.1 (m mol/L) Final Cl 03/03/2024 22:40:00 106 98-107 (mm ol/L) Final CO2 03/03/2024 22:40:00 23 22-32 (mmo l/L) Final Anion gap 03/03/2024 22:40:00 11 7-15 (mmol /L) Final Glucose 03/03/2024 22:40:00 103 70-120 (mg /dL) Final Albumin 03/03/2024 22:40:00 3.9 3.8-5.0 (g /dL) Final AST (Aspartate aminotransferase) 03/03/2024 22:40:00 14 10-35 (U/L) Fin al Alk Phos 03/03/2024 22:40:00 91 35-130 (U/ L) Final Bilirubin, Total 03/03/2024 22:40:00 <0.2 <=1 .2 (mg/dL) Final Calcium 03/03/2024 22:40:00 9.3 8.4-10.2 ( mg/dL) Final Protein 03/03/2024 22:40:00 6.9 6.0-8.3 (g /dL) Final ALT (Alanine aminotransferase) 03/03/2024 22:40:00 6 Below low normal 10-35 (U/L) Final Performing Location LABORATORY [facility] - [facility] [place] [address]
--- OUTSIDE RECORDS SUMMARY | 2024-03-16 22:18 | External Medical Summary ---
Author Name Unknown Address Unknown Organization K1F:LABORATORY [facility] - [address] [facility] [place] [address] Laboratory Report Ordering Provider Test Date Status ALVIN LOU 02/17/2024 00:52:25 Final Observation Date Value Abnormality Reference (Units ) Status BUN 02/17/2024 00:52:25 9 6-20 (mg/dL) Final Creatinine 02/17/2024 00:52:25 0.7 0.5-1.0 (mg/dL) Final Glomerular filtration rate/1.73 sq M.predicted [Volume Rate/Area] in Serum, Plasma or Blood by Creatinine-based formula (CKD-EPI) 02/17/2024 00:52:25 >90 >=60 (mL/min) Final eGFR is calculated based on the CKD-EPI 2020 equation. Sodium 02/17/2024 00:52:25 140 135-146 (m mol/L) Final Potassium 02/17/2024 00:52:25 3.8 3.5-5.1 (m mol/L) Final Cl 02/17/2024 00:52:25 106 98-107 (mm ol/L) Final CO2 02/17/2024 00:52:25 21 Below low normal 22- 32 (mmol/L) Final Anion gap 02/17/2024 00:52:25 13 7-15 (mmol /L) Final Glucose 02/17/2024 00:52:25 100 70-120 (mg /dL) Final Albumin 02/17/2024 00:52:25 4.3 3.8-5.0 (g /dL) Final AST (Aspartate aminotransferase) 02/17/2024 00:52:25 19 10-35 (U/L) Fin al Alk Phos 02/17/2024 00:52:25 72 35-130 (U/ L) Final Bilirubin, Total 02/17/2024 00:52:25 0.2 <=1 .2 (mg/dL) Final Calcium 02/17/2024 00:52:25 9.3 8.4-10.2 ( mg/dL) Final Protein 02/17/2024 00:52:25 7.4 6.0-8.3 (g /dL) Final ALT (Alanine aminotransferase) 02/17/2024 00:52:25 7 Below low normal 10-35 (U/L) Final Performing Location LABORATORY [facility] - [facility] [place] [address]
--- OUTSIDE RECORDS SUMMARY | 2024-03-16 22:18 | External Medical Summary ---
Author Name Unknown Address Unknown Organization K1F:LABORATORY [facility] - [address] [place] [address] Laboratory Report Ordering Provider Test Date Status ALVIN LOU 03/03/2024 23:00:15 Final Observation Date Value Abnormality Reference (Units ) Status Color of Urine by Auto 03/03/2024 23:00:15 Yellow Light Yellow, Yellow, Dark Yellow Final Clarity, Urine 03/03/2024 23:00:15 Clear Clear Final Glucose [Mass/volume] in Urine by Automated test strip 03/03/2024 23:00:15 Negative Negative (mg/dL) Final Bilirubin.total [Presence] in Urine by Automated test strip 03/03/2024 23:00:15 Negative Negative Final Ketones [Mass/volume] in Urine by Automated test strip 03/03/2024 23:00:15 Negative Negative (mg/dL) Final Specific gravity, Urine 03/03/2024 23:00:15 1.032 Above high normal 1.003-1.030 Final Hemoglobin [Presence] in Urine by Automated test strip 03/03/2024 23:00:15 Negative Negative Final pH, Urine 03/03/2024 23:00:15 6.0 5.0-7.5 (Units) Final Protein [Mass/volume] in Urine by Automated test strip 03/03/2024 23:00:15 Negative Negative (mg/dL) Final Urobilinogen [Mass/volume] in Urine by Automated test strip 03/03/2024 23:00:15 0.2 0.2, 1.0 (mg/dL) Final Nitrite [Presence] in Urine by Automated test strip 03/03/2024 23:00:15 Negative Negative Final Leukocyte esterase [Presence] in Urine by Automated test strip 03/03/2024 23:00:15 Negative Negative Final Annotation Comment 03/03/2024 23:00:15 Final Screen negative - Microscopi c not performed. Performing Location LABORATORY [facility] - [address] [place] [address]
--- OUTSIDE RECORDS SUMMARY | 2024-03-16 22:18 | External Medical Summary ---
Author Name Unknown Address Unknown Organization K1F:LABORATORY [facility] - [address] [place] [address] Laboratory Report Ordering Provider Test Date Status ALVIN LOU 02/17/2024 00:52:25 Final Observation Date Value Abnormality Reference (Units ) Status Lipase 02/17/2024 00:52:25 30 13-60 (U/L ) Final Performing Location LABORATORY [facility] - [address] [place] [address]
--- OUTSIDE RECORDS SUMMARY | 2024-03-16 22:18 | External Medical Summary | Summary of Care ---
Author Name Unknown Organization [facility] Address [address] [place] [address] Phone [phone] Care Team Providers Care Skilled Nursing Professional Name Role Phone Kinjal Reynoso PA-C Primary Care Provider [phone] Reason for Visit * Reason Comments Abdominal Pain * Auth/Cert Specialty Diagnoses / Procedures Referred By Carmen t Referred To Contact [facility] [address] [place] [address] Phone: [phone] Emergency Medicine [facility] [address] [place] [address] Referral ID Status Reason Start Date Expiration Date Visits Re quested Visits Authorized [id number] Encounter Details Date Type Department Care Team ([facility] Contact Info) Description 02/17/2024 12:21 AM EDT - 02/17/2024 2:40 AM EDT [facility] ([facility]) [address] [place] [address] Néstor Mcnamara MD [address] [place] [address] Abdominal pain, unspecified abdominal location (Primary Dx) Discharge Disposition: Home - Self [...] as of this encounter (statuses as of 02/17/2024) Medications Medication Sig Dispensed Refills Start Date End Date Status Naloxone HCl 4 MG/0.1ML Nasal Liquid (Narcan Nasal)Indications:Ch ronic pelvic pain in female,MEDICATION USE AGREEMENT,Chronic abdominal pain ADMINISTER 1 SPRAY INTO 1 NOSTRIL FOR SUSPECTED OPIOID OVERDOSE - SEEK IMMEDIATE MEDICAL ATTENTION. [email or web address] 2 Each 3 03/31/2023 Active Polyethylene Glycol [...] as directed, through J-tube via feeding pump. 92286 mL 11 10/05/2023 Active Peptamen AF Oral Liquid Administer 1,000 mL over 12 hours into J tube 4 times a day. 83617 mL 11 09/30/2023 Active Enteral Feeding Piston Syringe Use as directed. 30 Each 09/30/2023 Active Albuterol Sulfate HFA 108 (90 Base) MCG/ACT Inhalation Aerosol Solution Inhale 2 puffs by mouth every 6 hours As Needed for shortness of breath or wheezing 8.5 g 01/04/2024 Active Acetaminophen 160 MG/5ML Oral Suspension (Tylenol)Indications :Chronic pelvic pain in female,Gastroparesis ,Malfunction of jejunostomy tube (HCC) Administer 31.2 mL into J tube every 8 hours as needed for Pain, Moderate. 472 mL 5 01/11/2024 Active Gabapentin 300 MG Oral Capsule (Neurontin)Indicatio ns:Chronic pelvic pain in female Take 1 Capsule by mouth in the morning and 1 Capsule at noon and 1 Capsule before bedtime. 90 Capsule 2 01/20/2024 Active Lurasidone HCl 40 MG Oral Tablet (Latuda) Take 1 tablet by mouth every night with meals 15 Tablet 02/08/2024 Active Ciprofloxacin HCl 500 MG Oral Tablet (Cipro) Take 1 Tablet by mouth in the morning and 1 Tablet before bedtime. Do all this for 7 days. 14 Tablet 02/09/2024 documented as of this encounter (statuses as of 02/17/2024) Active Problems Problem Noted Date Diagnosed Date [...] as of this encounter (statuses as of 02/17/2024) Resolved Problems Problem Noted Date Diagnosed Date [...] as of this encounter (statuses as of 02/17/2024) Immunizations Name Administration Dates Next Due DTaP [...] Sign Reading Time Taken Comments Blood Pressure 137/86 02/17/2024 1:24 AM EDT Pulse 88 02/17/2024 1:24 AM EDT Temperature 36 C (96.8 F) 02/16/2024 11:00 PM EDT Respiratory Rate 18 02/17/2024 1:24 AM EDT Oxygen Saturation 100% 02/16/2024 11:00 PM EDT Inhaled Oxygen Concentration - - Weight 71.8 kg (158 lb 6.4 oz) 02/16/2024 11:00 PM EDT Height - - Body Mass Index 28.97 02/05/2024 5:33 PM EDT documented in this encounter Functional [...] * Discharge Instructions* Néstor Mcnamara MD - 02/17/2024 2:28 AM EDT Your workup today was overall reassuring. Please follow-up with the outpatient team Return with worsening abdominal pain, nausea, vomiting, inability eat or drink. Please return to this Emergency Department or [...] documented in this encounter ED Notes * Destiny Galaviz RN - 02/16/2024 10:58 PM EDT Pt reports RLQ pain with vomitus. 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 Denies fevers,chills, FRAZIER, dizziness. Reports diarrhea. Reports recent abx usage. Denies UTI symptoms. Hx of j tube. Hx of hysterectomy. 0055: port accessed on right chest wall by Kenny BAUGH. Call lopez in reach [phone]: medicated and tolerated well. Call lopez in reach documented in this encounter Miscellaneous Notes * ED Button Maker And Installer Note - Michelle Hills RN - 02/17/2024 2:40 AM EDT Discharge instructions reviewed with the patient at bedside. Patient instructed to follow up with their PCP and return to the ED should their symptoms worsen. Patient verbalized understanding and denies any additional quesitons at this time. Patient ambulated form the ED with a steady gait. documented in this encounter Plan of Treatment Upcoming Encounters Date Type Department Care Team (Late st Contact Info) Description 03/25/2024 9:20 AM EDT Office Visit [facility] [place] [address] [phone] Kinjal Reynoso PA-C [address] [address] Scheduled Orders Name Type Priority Associated Diagnoses Orde r Schedule URINALYSIS, REFLEX TO MICROSCOPIC Lab STAT One Time for 1 Occurrences starting 02/16/2024 until 02/16/2024 Health Maintenance Due Date Last Done Comments [...] this encounter Medical Devices Implanted Type Area Ice Cream Freezer Helper Device Identifier Shelf Expiration Date Model / Serial / Lot Port Implant W/8f Poly Cath - [id number] Implanted:Qty : 1 on 05/18/2023 by Juan Jose Connell DO at OR [facility] Right: Chest CR BARD : PERIPHERAL VASCULAR [id number] 11/18/2024 [id number] / / [id number] documented as of this encounter Procedures Procedure Name Priority Date/Time Associated Diagnosis Comments XR ABDOMEN OBSTRUCT SERIES W CHEST 1 VIEW Routine 02/17/2024 1:06 AM EDT DIFFERENTIAL, AUTOMATED STAT 02/17/2024 12:52 AM EDT COMPREHENSIVE METABOLIC PANEL STAT 02/17/2024 12:52 AM EDT CBC STAT 02/17/2024 12:52 AM EDT LIPASE STAT 02/17/2024 12:52 AM EDT CBC STAT 02/17/2024 12:52 AM EDT EXTRA MEEHAN TOP Routine 02/17/2024 12:51 AM EDT EXTRA TUBES Routine 02/17/2024 12:51 AM EDT documented in this encounter Results * XR ABDOMEN OBSTRUCT SERIES W CHEST 1 VIEW (02/17/2024 1:06 AM EDT) Anatomical Region Laterality Modality Abdomen, Pelvis Digital Radiogra phy 02/17/2024 12:4 2 AM EDT Impressions 02/17/2024 1:34 AM EDT IMPRESSION: 1. Overall unremarkable grossly nonobstructive bowel gas pattern 2. Lungs clear. THIS DOCUMENT HAS BEEN ELECTRONICALLY SIGNED BY NANCY LAZO MD Narrative 02/17/2024 1:34 AM EDT PROCEDURE INFORMATION: Exam: XR Complete Acute Abdomen Series Including Chest Exam date and time: 02/17/2024 12:42 AM Age: 23 years old Clinical indication: Abdominal tenderness; Additional info: Abd pain TECHNIQUE: Imaging protocol: Radiologic exam. Complete acute abdomen series, including 2 or more views of the abdomen and a single view chest. COMPARISON: CT ABD/PELVIS W IV CONTRAST - WO ORAL CONTRAST 02/03/2024 5:00 AM FINDINGS: Tubes, catheters and devices: MediPort on the right. Jejunostomy tube projecting over the abdomen. Lungs: No definite air bronchograms identified. Pleural spaces: Normal. No pleural effusions. No pneumothorax. Heart/Mediastinum: Normal. No cardiomegaly. Gastrointestinal tract: Nonobstructive bowel gas pattern. Intraperitoneal space: Normal. No free air. Bones/joints: Normal. No acute fracture. Soft tissues: Normal. Procedure Note Nancy Lazo MD - 02/17/2024 PROCEDURE INFORMATION: Exam: XR Complete Acute Abdomen Series Including Chest Exam date and time: 02/17/2024 12:42 AM Age: 23 years old Clinical indication: Abdominal tenderness; Additional info: Abd pain TECHNIQUE: Imaging protocol: Radiologic exam. Complete acute abdomen series,including 2 or more views of the abdomen and a single view chest. COMPARISON: CT ABD/PELVIS W IV CONTRAST - WO ORAL CONTRAST 02/03/2024 5:00 AM FINDINGS: Tubes, catheters and devices: MediPort on the right. Jejunostomy tube projecting over the abdomen. Lungs: No definite air bronchograms identified. Pleural spaces: Normal. No pleural effusions. No pneumothorax. Heart/Mediastinum: Normal. No cardiomegaly. Gastrointestinal tract: Nonobstructive bowel gas pattern. Intraperitoneal space: Normal. No free air. Bones/joints: Normal. No acute fracture. Soft tissues: Normal. IMPRESSION IMPRESSION: 1. Overall unremarkable grossly nonobstructive bowel gas pattern 2. Lungs clear. THIS DOCUMENT HAS BEEN ELECTRONICALLY SIGNED BY NANCY LAZO MD Néstor Mcnamara MD RADIOLOGY (RAD G ENERAL) * DIFFERENTIAL, AUTOMATED (02/17/2024 12:52 AM EDT) WBC 10.72 4.00 - 10.80 K/uL 02/17/2024 1:13 AM EDT LAB[facility]ATORY [facility] Neutrophils % 71.3 40.0 - 75.0 % 02/17/2024 1:13 AM EDT LAB[facility]ATORY [facility] Lymphocytes % 22.4 18.0 - 42.0 % 02/17/2024 1:13 AM EDT LAB[facility]ATORY [facility] Monocytes % 5.2 1.0 - 11.0 % 02/17/2024 1:13 AM EDT LAB[facility]ATORY [facility] Eosinophils % 0.5 0.0 - 6.0 % 02/17/2024 1:13 AM EDT LABORATORY [facility] Basophils % 0.2 0.0 - 2.0 % 02/17/2024 1:13 AM EDT LABORATORY GL Immature Granulocytes % 0.4 0.0 - 2.0 % 02/17/2024 1:13 AM EDT LABORATORY GL Absolute Neutrophils 7.65 1.80 - 7.70 K/uL 02/17/2024 1:13 AM EDT LABORATORY GL Absolute Lymphocytes 2.40 1.00 - 4.80 K/ul 02/17/2024 1:13 AM EDT LABORATORY [facility] Absolute Monocytes 0.56 0.00 - 1.10 K/uL 02/17/2024 1:13 AM EDT LABORATORY GL Absolute Eosinophils 0.05 0.00 - 0.70 K/uL 02/17/2024 1:13 AM EDT LABORATORY [facility] Absolute Basophils 0.02 0.00 - 0.20 K/uL 02/17/2024 1:13 AM EDT LABORATORY GL Absolute Immature Granulocytes 0.04 0.00 - 0.20 K/uL 02/17/2024 1:13 AM EDT LABORATORY [facility] Blood Venous blood specimen / Unknown Venipuncture / Unknown 02/17/2024 12:52 AM EDT 02/17/2024 12:59 AM EDT Carlos Bowles MD LAB BLOOD ORDERABLES Performing Organization Address City/State/[facility] Co de Phone Number LABORATORY [address] [address] * CBC (02/17/2024 12:52 AM EDT) WBC 10.72 4.00 - 10.80 K/uL 02/17/2024 1:13 AM EDT LABORATORY [facility] RBC 4.17 3.85 - 5.15 M/uL 02/17/2024 1:13 AM EDT LABORATORY [facility] HGB 13.1 12.0 - 15.3 g/dL 02/17/2024 1:13 AM EDT LABORATORY GL HCT 38.0 36.0 - 45.2 % 02/17/2024 1:13 AM EDT LABORATORY GL MCV 91.1 81.5 - 97.5 fL 02/17/2024 1:13 AM EDT LABORATORY GL MCH 31.4 27.0 - 34.0 pg 02/17/2024 1:13 AM EDT LABORATORY [facility] MCHC 34.5 32.0 - 36.0 g/dL 02/17/2024 1:13 AM EDT LABORATORY [facility] RDW 12.8 11.5 - 15.5 % 02/17/2024 1:13 AM EDT LABORATORY [facility] PLT 227 140 - 400 K/uL 02/17/2024 1:13 AM EDT LABORATORY [facility] MPV 10.7 6.6 - 11.1 fL 02/17/2024 1:13 AM EDT LABORATORY [facility] nRBCs 0 <=0 /100 WBCs 02/17/2024 1:13 AM EDT LABORATORY [facility] Blood Venous blood specimen / Unknown Venipuncture / Unknown 02/17/2024 12:52 AM EDT 02/17/2024 12:59 AM EDT Carlos Bowles MD LAB BLOOD ORDERABLES Performing Organization Address City/[facility]/ZIP Co de Phone Number LABORATORY [address] [address] * LIPASE (02/17/2024 12:52 AM EDT) Lipase 30 13 - 60 U/L 02/17/2024 1:26 AM EDT LABORATORY [facility] Blood Venous blood specimen / Unknown Venipuncture / Unknown 02/17/2024 12:52 AM EDT 02/17/2024 12:59 AM EDT Carlos Bowles MD LAB BLOOD ORDERABLES LABORATORY [address] [address] * (ABNORMAL) COMPREHENSIVE METABOLIC PANEL (02/17/2024 12:52 AM EDT) BUN 9 6 - 20 mg/dL 02/17/2024 1:26 AM EDT LABORATORY [facility] Creatinine 0.7 0.5 - 1.0 mg/dL 02/17/2024 1:26 AM EDT LABORATORY [facility] Estimated Glomerular Filtration Rate >90 >=60 mL/min 02/17/2024 1:26 AM EDT LABORATORY [facility] Comment:eGFR is calculated b ased on the CKD-EPI 2020 equation. Sodium 140 135 - 146 mmol/L 02/17/2024 1:26 AM EDT LABORATORY [facility] Potassium 3.8 3.5 - 5.1 mmol/L 02/17/2024 1:26 AM EDT LAB[facility]ATORY [facility] Chloride 106 98 - 107 mmol/L 02/17/2024 1:26 AM EDT LAB[facility]ATORY [facility] CO2 21(L) 22 - 32 mmol/L 02/17/2024 1:26 AM EDT LAB[facility]ATORY [facility] Anion Gap 13 7 - 15 mmol/L 02/17/2024 1:26 AM EDT LAB[facility]ATORY [facility] Glucose 100 70 - 120 mg/dL 02/17/2024 1:26 AM EDT LAB[facility]ATORY [facility] Albumin 4.3 3.8 - 5.0 g/dL 02/17/2024 1:26 AM EDT LABORATORY [facility] AST 19 10 - 35 U/L 02/17/2024 1:26 AM EDT LAB[facility]ATORY [facility] Alkaline Phosphatase 72 35 - 130 U/L 02/17/2024 1:26 AM EDT LAB[facility]ATORY [facility] Bilirubin, Total 0.2 <=1.2 mg/dL 02/17/2024 1:26 AM EDT LAB[facility]ATORY [facility] Calcium 9.3 8.4 - 10.2 mg/dL 02/17/2024 1:26 AM EDT LAB[facility]ATORY [facility] Protein 7.4 6.0 - 8.3 g/dL 02/17/2024 1:26 AM EDT LAB[facility]ATORY [facility] ALT 7(L) 10 - 35 U/L 02/17/2024 1:26 AM EDT LAB[facility]ATORY [facility] Blood Venous blood specimen / Unknown Venipuncture / Unknown 02/17/2024 12:52 AM EDT 02/17/2024 12:59 AM EDT Carlos Bowles MD LAB BLOOD ORDERABLES LAB[facility]AT[facility] [address] [place] [address] * EXTRA MEEHAN TOP (02/17/2024 12:51 AM EDT) Blood Venous blood specimen / Unknown 02/17/2024 12:51 AM EDT 02/17/2024 1:05 AM EDT Néstor Mcnamara MD LAB BLOOD [place] [address] documented in this encounter Visit Diagnoses Diagnosis Abdominal pain, unspecified abdominal location- Primary documented in this encounter Administered Medications Inactive Administered Medications - up to 3 most recent administrations Medication Order MAR Action Action Date Dose Rate Site keTORolac (Toradol) 30 MG/ML inj 15 mg 15 mg, Intramuscular, ONCE, On [place] 02/17/24 at 0215, For 1 dose Given 02/17/2024 1:39 AM EDT 15 mg S [email or web address] Right documented in this encounter Active and Recently Administered Medications Times are shown in EDT. Scheduled Medication Order 02/15/2024 02/16/2024 02/17/2024 keTORolac (Toradol) 30 MG/ML inj 15 mg (COMPLETED) 15 mg, Intramuscular, ONCE, On [place] 02/17/24 at 0215, For 1 dose 0139 (Given - Provid er: Destiny Galaviz RN) [...] Advance Directives occurred with: Patient Care Teams Skilled Nursing Professional Relationship Specialty Start Date End Date Kinjal Reynoso PA-C [facility] [place] [place] [phone] PCP - General Physician Clinical Dietetic Technician 11/05/22 documented as of this encounter
--- OUTSIDE RECORDS SUMMARY | 2024-03-16 22:19 | External Medical Summary | Summary of Care ---
Author Name Unknown Organization [facility] Address [address] [place] [address] Phone [phone] Care Team Providers Care Chuck Wagon Driver Name Role Phone Kijnal Reynoso PA-C Primary Care Provider [phone] Reason for Visit * Auth/Cert Specialty Diagnoses / Procedures Referred By Carmen kirby Referred To Contact Diagnoses Dislodged jejunostomy tube Dislodged jejunostomy tube [T85.528A] Procedures IR TUBE REPLACEMENT GASTROSTOMY PERCUTANEOUS OR CECOSTOMY PERCUTANEOUS REPLACE GASTROSTOMY OR CECOSTOMY TUBE WITH FLUORO Luis Finn MD [address] [place] [address] [place] [address] Referral ID Status Reason Start Date Expiration Date Visits Re quested Visits Authorized [id number] Encounter Details Date Type Department Care Team (Latest Contact Info) Description 02/02/2024 6:52 AM EDT - 02/02/2024 11:42 AM EDT Hospital Encounter OR [facility], Operating Room[facility] [place] - 4th Floor [address] [address] Luis Finn MD [address] [place] [address] Discharge Disposition: Home - Self Care Allergies [...] as of this encounter (statuses as of 02/02/2024) Medications Medication Sig Dispensed Refills Start Date End Date Status Naloxone HCl 4 MG/0.1ML Nasal Liquid (Narcan Nasal)Indications:Ch ronic pelvic pain in female,MEDICATION USE AGREEMENT,Chronic abdominal pain ADMINISTER 1 SPRAY INTO 1 NOSTRIL FOR SUSPECTED OPIOID OVERDOSE - SEEK IMMEDIATE MEDICAL ATTENTION. [email or web address] 2 Each 3 03/31/2023 Active Polyethylene Glycol [...] as directed, through J-tube via feeding pump. 37696 mL 11 10/05/2023 Active Peptamen AF Oral Liquid Administer 1,000 mL over 12 hours into J tube 4 times a day. 54230 mL 11 09/30/2023 09/24/2024 Active Enteral Feeding [...] before bedtime. 90 Capsule 2 01/20/2024 Active oxyCODONE HCl 5 MG Oral Tablet (Oxy IR)Indications:Chron ic pelvic pain in female,Gastroparesis ,Malfunction of jejunostomy tube (HCC) Take 1 Tablet by mouth daily as needed for Pain, Severe for up to 14 days. Rx must last 14 days 14 Tablet 01/20/2024 02/04/2024 Active documented as of this encounter (statuses as of 02/02/2024) Active Problems Problem Noted Date Diagnosed Date [...] as of this encounter (statuses as of 02/02/2024) Resolved Problems Problem Noted Date Diagnosed Date [...] as of this encounter (statuses as of 02/02/2024) Immunizations Name Administration Dates Next Due DTaP [...] Sign Reading Time Taken Comments Blood Pressure 116/88 02/02/2024 11:13 AM EDT Pulse 81 02/02/2024 11:13 AM EDT Temperature 36.7 C (98.1 F) 02/02/2024 11:13 AM E DT Respiratory Rate 20 02/02/2024 11:13 AM EDT Oxygen Saturation 100% 02/02/2024 11:13 AM EDT Inhaled Oxygen Concentration - - Weight 72.6 kg (160 lb) 02/02/2024 7:05 AM EDT Height 157.5 cm (5' 2") 02/02/2024 7:05 AM EDT Body Mass Index 29.26 02/02/2024 7:05 AM EDT documented in this encounter Functional [...] Discharge Instructions * Discharge Instr - AVS* Luis Finn MD - 02/02/2024 10:21 AM EDT Discharge Date: 02/02/2024 Provider: Dr. Luis Finn If you are experiencing any problems related to your procedure, please contact Interventional Radiology at [phone] during normal business hours: Wednesday- Wednesday 7:30 am - 4 pm. If a problem occursoutside of normal business hours, please call the hospital benzene operator at [phone] and ask for theInterventional Radiologist vision rehabilitation therapist. Contact scheduling for Interventional Radiology at [phone] during normal business hours: Wednesday-Wednesday, 7:30 am - 4 pm. The information below provides you with the instructions and the list of medications you need to betaking following discharge from the hospital. If you have any questions, please ask before leaving.Please carry this letter with you when you see your doctor in the clinic. If you have questions, you can reach us at the numbers above. SPECIAL INSTRUCTIONS Gastrostomy or Gastro-Jejunostomy (G or G-J Tube) or Jejunostomy (J Tube) You have been discharged [...] If you do not hear from a group social worker, call Interventional Radiology at [phone] during normal business hours: Wednesday through Wednesday 8 am to 4:30 pm to schedule an appointment. The first exchange will take place in Interventional Radiology. After the first exchange, GI Nutrition will take over the care of the feeding tube including routine exchanges in their office. When to Call Interventional Radiology Call Interventional [...] feel you are having a medical emergency, [id number] for emergency assistance. Chest Pain Sudden, severe shortness of breath Rapid heart rate Sudden onset of weakness Coughing up blood See your referring physician for follow-up appointment. Do not smoke or use tobacco products in any way! If you feel suicidal or homicidal, please call the crisis hotline at [phone] ([phone]) Driving: You may resume driving 1 day . Diet: You may resume your current diet as tolerated. Return to work or school: You may return to school or work 1 days after the procedure, unless otherwise instructed by the physician. documented in this encounter Progress Notes * Luis Finn MD - 02/02/2024 10:[address] [facility]-[address] [address] OUTPATIENT SURGERY DISCHARGE SUMMARY NOTE Name: Anirudh Peñaloza Location: OR [facility]/[place] Date: 02/02/2024 Time: 10:21 AM Surgery Date: 02/02/2024 Procedure: PERCUTANEOUS REPLACE GASTROSTOMY OR CECOSTOMY TUBE WITH FLUORO Right Surgeon: Luis Finn MD Discharge Diagnosis: jejunostomy placement with tract dilation After examination of this patient, I have determined she is ready for discharge to home when the patient meets criteria. Discharge instructions were given to the patient. documented in this encounter H&P Notes * Luis Finn MD - 02/02/2024 9:01 AM EDT HISTORY & PHYSICAL - Interventional Radiology Service [address] [address] Name: Anirudh Peñaloza Location: [facility]/[place] Date: 02/02/2024 Time: 9:02 AM CHIEF COMPLAINT: Jejunostomy fell out HISTORY OF PRESENT ILLNESS: Esteban in place Past Medical History: Diagnosis Date Abdominal pain Asthma, exercise induced Endometriosis determined by laparoscopy 11/16/2017 Gastroparesis Hx of fall age 5 cut left eyebrow: sutures INFORMATION several concussions Jejunostomy tube in situ (HCC) Motion sickness PONV (postoperative nausea and vomiting) S/P laparoscopic appendectomy 04/30/2021 S/P laparoscopic hysterectomy 04/30/2021 with bilateral salpingectomy Severe protein-energy malnutrition (HCC) 07/25/2021 Past Surgical History: Procedure Laterality Date APPENDECTOMY W/OTHER PROCEDURE 04/30/2021 COLONOSCOPY, DIAGNOSTIC (RECTUM) N/A 08/14/2021 poor prep/normal/COLONOSCOPY FLEXIBLE PROXIMAL DIAGNOSTIC performed by Jerardo Erwin MD at ENDOSCOPY [facility] EGD, FLEXIBLE, DIAGNOSTIC N/A 07/21/2021 LA grade A esophagitis/multiple linear fundus of stomach/stripes of erythema in antrum/sludge duodenum/biopsies normal/ESOPHAGOGASTRODUODENOSCOPY (EGD), FLEXIBLE, TRANSORAL, DIAGNOSTIC performed by Eulalio Suarez MD at OR [facility] FLUORO GUIDED NEEDLE PLACEMENT N/A 07/31/2022 FLUOROSCOPIC GUIDANCE FOR NEEDLE PLACEMENT performed by Fredy Denton DO at OR [facility] FLUORO GUIDED NEEDLE PLACEMENT N/A 08/04/2022 FLUOROSCOPIC GUIDANCE FOR NEEDLE PLACEMENT performed by Fredy Denton DO at OR [facility] INFORMATION 12/2023 J tube replacement - IR [facility] INJ, ANESTH;SUP HYPOGAS PLEX N/A 07/24/2021 INJECTION ANESTHETIC SYMPATHEITC NERVE SUPERIOR HYPOGASTRIC PLEXUS performed by Tk Aden MD at OR [facility] INSER TUNN ACC DEV;5 YRS/OLDER Right 05/18/2023 INSERT TUNNELED CENTRAL VENOUS ACCESS WITH SUBQ PORT performed by Juan Jose Connell DO at OR [facility] IR GASTROINTESTINAL OSTOMY 08/09/2023 IR GASTROINTESTINAL OSTOMY 08/10/2023 IR TUBE REPLACEMENT GASTROSTOMY PERCUTANEOUS OR CECOSTOMY Left 06/02/2023 PERCUTANEOUS REPLACE GASTROSTOMY OR CECOSTOMY TUBE WITH FLUORO performed by Juan Jose Connell DO at OR [facility] IR TUBE REPLACEMENT GASTROSTOMY PERCUTANEOUS OR CECOSTOMY Left 07/08/2023 PERCUTANEOUS REPLACE GASTROSTOMY OR CECOSTOMY TUBE WITH FLUORO performed by Luis Finn MD at OR [facility] LAP;W/HYSTERECTOMY 04/30/2021 with BS for endometriosis LAPAROSCOPY DIAGNOSTIC N/A 11/16/2017 LAPAROSCOPY DIAGNOSTIC performed by Josep Garcia MD at OR [facility] Social History Socioeconomic History Marital status: Single Spouse name: Not on file Number of children: Not on file Years of education: Not on file Highest education level: Not on file Occupational History Not on file Tobacco Use Smoking status: Never Passive exposure: Never Smokeless tobacco: Never Vaping Use Vaping status: Every Day Substances: Nicotine, Flavoring Devices: Pre-filled pod Substance and Sexual Activity Alcohol use: Yes Comment: occasional Drug use: Not Currently Frequency: 7.0 times per week Comment: medical, within past month Sexual activity: Not on file Other Topics Concern Not on file Social History Narrative Pt lives with his mother, father, and sister. He always uses a seat belt. Social Determinants of Health Financial Resource Strain: Low Risk (11/29/2023) Received from [facility] Overall Financial Resource Strain (CARDIA) Difficulty of Paying Living Expenses: Not very hard Food Insecurity: No Food Insecurity (11/29/2023) Received from [facility] Hunger Vital Sign Worried About Running Out of Food in the Last Year: Never true Ran Out of Food in the Last Year: Never true Transportation Needs: No Transportation Needs (11/29/2023) Received from [facility] PRAPARE - Transportation Lack of Transportation (Medical): No Lack of Transportation (Non-Medical): No Social Connections: Socially Integrated (07/23/2023) Social Connections How often do you feel lonely or isolated from those around you? (Adult - for ages 18 years and over): Never Housing Stability: Not At Risk (11/09/2023) Received from [facility] Housing What is your living situation today?: I have a steady place to live Think about the place you live. Do you have problems with any of the following?: None of the above Family History Problem Relation Name Age of Onset Migraines Mother Irritable Bowel [...] Route Frequency Provider Last Rate Last Admin isolyte-S pH 7.4 infusion 25 mL/hr Intravenous Continuous Luis Finn MD 25 mL/hr at 02/02/24 [id number] mL/hr at 02/02/24 0745 REVIEW OF SYSTEMS: Constitutional: (-) fever chills sweats or weight loss Cardiovascular: (-) negative: no chest pain, dyspnea, syncope, or palpitations Pulmonary: (-) negative: no cough, wheezing, or shortness of breath Abdominal/GI: (-) negative: no pain, heartburn, dysphagia, bleeding, change in bowel habits, nauseaor vomiting OBJECTIVE: BP 127/85 | Pulse 95 | Temp 36.2 C (97.2 F) (Tympanic) | Resp 18 | Ht 1.575 m (5' 2") | Wt 72.6kg (160 lb) | LMP (LMP Unknown) | SpO2 98% | BMI 29.26 kg/m | BSA 1.78 m PHYSICAL EXAM: Constitutional: no acute distress CV: normal rate and rhythm, no murmur, gallops or rub Chest: normal respiratory effort, lungs clear to auscultation and percussion, breath sounds normal Abdomen: normal: soft, bowel sounds normal, no masses, tenderness or organomegaly LABS: CBC Results: PT INR Results: Results [...] Results Component Value Date/Time BUN - [facility] 10 01/29/2024 02:56 AM BUN - [facility] 11 11/23/2023 08:22 PM BUN - [facility] 9 11/18/2023 11:58 AM BUN - [facility] 9 06/10/2020 11:01 AM BUN - [facility] 10 03/29/2020 02:40 PM BUN - [facility] 9 08/17/2019 10:50 AM BUN-OUTSIDE LAB 6 (L) 11/30/2023 04:03 AM BUN-OUTSIDE LAB 7 (L) 06/09/2023 05:09 AM BUN-OUTSIDE LAB 10 03/13/2023 01:20 PM BUN/CREAT RATIO-OUTSIDE LAB 12 11/30/2023 04:03 AM BUN/CREAT RATIO-OUTSIDE LAB 13 06/09/2023 05:09 AM BUN/CREAT RATIO-OUTSIDE LAB 15 03/13/2023 01:20 PM Creatinine Results: Lab Results Component Value Date/Time CREATININE - [facility] 0.6 01/29/2024 02:56 AM CREATININE - [facility] 0.6 11/23/2023 08:22 PM CREATININE - [facility] 0.7 11/18/2023 11:58 AM CREATININE - [facility] 0.8 06/10/2020 11:01 AM CREATININE - [facility] 0.7 03/29/2020 02:40 PM CREATININE - [facility] 0.7 08/17/2019 10:50 AM CREATININE DU - [facility] 75 12/24/2023 12:06 PM CREATININE DU - [facility] 272 03/29/2023 11:25 AM CREATININE DU - [facility] 361 11/05/2022 11:51 AM CREATININE-OUTSIDE LAB 0.49 (L) 11/30/2023 04:03 AM CREATININE-OUTSIDE LAB 0.54 06/09/2023 05:09 AM CREATININE-OUTSIDE LAB 0.69 03/21/2023 12:00 AM CREATININE-OUTSIDE LAB 0.67 03/13/2023 01:20 PM Potassium Results: Lab Results Component Value Date/Time POTASSIUM - [facility] 4.0 01/29/2024 02:56 AM POTASSIUM - [facility] 4.6 11/23/2023 08:22 PM POTASSIUM - [facility] 3.3 (L) 11/18/2023 11:58 AM POTASSIUM - [facility] 3.5 06/10/2020 11:01 AM POTASSIUM - [facility] 3.9 03/29/2020 02:40 PM POTASSIUM - [facility] 4.0 08/17/2019 10:50 AM POTASSIUM-OUTSIDE LAB 4.0 11/30/2023 04:03 AM POTASSIUM-OUTSIDE LAB 4.0 06/09/2023 05:09 AM POTASSIUM-OUTSIDE LAB 3.9 03/21/2023 12:00 AM POTASSIUM-OUTSIDE LAB 4.7 03/13/2023 01:20 PM INFORMED CONSENT: Yes PRE-SEDATION ASSESSMENT IMPRESSION/PLAN: Jejunostomy placement Luis Finn MD documented in this encounter Nursing Notes * Mckenna Lawrence RN - 02/02/2024 11:32 AM EDT [facility] [address] [facility] [address] SameDay Surgery Discharge Note Name: Anirudh Peñaloza Date: 02/02/2024 Time: 11:32 AM Discharge Disposition: Home Responsible adult as escort home: friend Transport Mode: Ambulatory Accompanied by: Andrez Lawrence RN To: Car Belongings with patient: Yes Patient meets criteria to be transferred or discharged. Patient requesting "to go home" - dressed self without nurse present, still rating pain as 8/10. Nodrainage noted from abdominal tube site * Mckenna Lawrence RN - 02/02/2024 11:[address] Finn here to talk to patient again, she states no relief from tylenol but is requesting "to go home". Dr Finn advising staff to observe patient prior to her going home. Patient also states " I want this tube out", Dr Finn spoke to patient at length advising against tube removal and she voiced understanding. 1125 patient again stating " I just want to go home". Vitals are stable, Dr Finn aware of patient wishes, continues to rates pain as 8/10. * Babs Reddy RN - 02/01/2024 10:31 AM EDT Patient identified by: name/birthdate Person taught: Patient Optime case procedure confirmed with patient/parent/guardian - no consent signed. Laterality confirmed as N/a Surgery date at time of Pre-Surgery Center Encounter: 02/02/24 What procedure is patient having? Jejunostomy Tube Exchange In an emergency, is patient willing to accept blood products or blood transfusion? unknown Do you need to place a blood bank order? No Anesthesia consent pool notified? N/A Anesthesia evaluation requested per case documentation? No Preop Evaluation Requested? No PATIENT EDUCATION SCREENING Person taught: Patient Motivation Level: Asks Questions and Eager to Learn Language Barrier: No Physical Barrier: N/A METHOD: Lecture-telephone interview Patient Preferred Learning Methods: Lecture-Telephone interview Health History interview completed, questions answered, and the following patient instructions provided via telephone interview: Preoperative bathing instructions General preoperative instructions Medication instructions NPO instructions - If your normal morning routine take gabapentin the morning of surgery. OUTCOME: State / Describe / Explain, Needs Reinforcement, and Verbalizes understanding of education documented in this encounter OR Notes * OR Surgeon - Luis Finn MD - 02/02/2024 11:42 AM EDT Procedure: Jejunostomy placement. 02/02/2024 INDICATION: [An jejunostomy fell out and replaced with pediatric Esteban catheter.. ATTENDING (OPERATING PHYSICIAN): [Huma] CONSENT: After a detailed discussion of the procedure, risks, benefits and alternative treatment options, informed consent was obtained. TIME OUT: A time out procedure was performed. The patient's identification was verified. Informed consent with agreement of procedure, site and position was obtained. All necessary equipment was available prior to procedure. CONTRAST: IV Optiray 320 COMPLICATIONS: None. MEDICATIONS: See MAR PROCEDURE DESCRIPTION: [The existing Esteban was injected with contrast and fluoroscopic images were obtained confirming proper location.] Attempts to access the bowel via the Esteban failed. Using a Kumpe the catheter was it is distance of a roadrunner wire, access to the jejunum was achieved alongside existing Esteban. The balloon of the Esteban catheter was then deflated and the existing Esteban catheter was removed over a wire. Initial attempts to replace the jejunostomy failed due to in the tract. After the tract was dilatedwith a 14 Senegalese dilator, 6 mm balloon as well as a 16 Senegalese dilator, an 18 Senegalese jejunostomy wasadvanced into the bowel. The balloon was inflated with 5 mL contrast. Contrast was injected confirming position patient tolerated the procedure well The procedure was performed by Dr. Finn Findings: [Pediatric Esteban with in jejunum. Impression: Successful jejunostomy catheter check and exchange. PLAN: Flush tube with 20-30 mL of water before and after each feeding and each medication. Medications should be in liquid form if possible and if not available in liquid form they should be finely crushed, mixed in warm water and administered individually. Routine maintenance change by IR in [6] months. * OR Surgeon - Luis Finn MD - 02/02/2024 11:42 AM EDT Procedure: chest medical port removal. 02/02/24 INDICATION: [Port no longer needed.] ATTENDING (OPERATING PHYSICIAN): Huma CONSENT: After a detailed discussion of the procedure, risks, benefits and alternative treatment options, informed consent was obtained. TIME OUT: A time out procedure was performed. The patient's identification was verified. Informed consent with agreement of procedure, site and position was obtained. All necessary equipment was available prior to procedure. CONTRAST: No contrast was administered. COMPLICATIONS: None. ANESTHESIA: [Local lidocaine.] MEDICATIONS: See MAR PROCEDURE DESCRIPTION: The patient was placed on the fluoroscopy table and a pile driving superintendent fluoroscopic image of the chest was obtained. The [right] neck and chest were prepped and draped in the usual sterile fashion. An incision was made over the scar from medical port placement. The medical port was removed, inspected, and noted to be removed in its entirety. The port pocket was inspected. A final postremoval image was obtained. The incision was then closed with suture and surgical glue. The procedure was performed by Dr. Finn. Findings: The medical port is in the upper chest. The final image demonstrates complete removal. Impression: Successful chest medical port removal. * Operative Report Brief - Luis Finn MD - 02/02/2024 10:18 AM EDT PROCEDURE NOTE - Interventional Radiology [facility]-[address] [address] Name: Anirudh Marino Jh Location: OR [facility]/OR Date: 02/02/2024 Time: 10:19 AM PROCEDURE: jejunostomy placement DEFENSE TRAVEL ADMINISTRATOR: Dr. Luis Finn ASSISTANTS: none ANESTHESIA: deep sedation COMPLICATIONS: none SPECIMEN: none ESTIMATED BLOOD LOSS: negligible FINDINGS: pediatric esteban replaced with 18 Fr jejunostomy documented in this encounter Plan of Treatment Upcoming Encounters Date Type Department Care Team (Late st Contact Info) Description 03/25/2024 9:20 AM EDT [facility] [address] [phone] Kinjal Reynoso PA-C [address] [address] Scheduled Procedures Name Priority Associated Diagnoses Date/Ti me PERCUTANEOUS REPLACE GASTROSTOMY OR CECOSTOMY TUBE WITH FLUORO Dislodged jejunostomy tube 02/02/2024 9:11 AM EDT Health Maintenance Due Date Last Done [...] this encounter Medical Devices Implanted Type Area Warehouse Sorter Device Identifier Shelf Expiration Date Model / Serial / Lot Port Implant W/8f Poly Cath - [id number] Implanted:Qty : 1 on 05/18/2023 by Juan Jose Connell DO at OR [facility] Right: Chest CR BARD : PERIPHERAL VASCULAR [id number] 11/18/2024 [id number] / / [id number] documented as of this encounter Procedures Procedure Name Priority Date/Time Associated Diagnosis Comments IR INTERVENTIONAL RADIOLOGY PROCEDURE IN OR Routine 02/02/2024 10:14 AM EDT documented in this encounter Results * IR INTERVENTIONAL RADIOLOGY PROCEDURE IN OR (02/02/2024 10:14 AM EDT) 02/02/2024 3:58 PM EDT Impressions [facility] - 02/02/2024 3:56 PM EDT IMPRESSION: Successful jejunostomy catheter check and exchange. PLAN: Flush tube with 20-30 mL of water before and after each feeding and each medication. Medications should be in liquid form if possible and if not available in liquid form they should be finely crushed, mixed in warm water and administered individually. Routine maintenance change by IR in 6 months. Narrative [facility] - 02/02/2024 3:56 PM EDT PROCEDURE: Jejunostomy placement. 02/02/2024 INDICATION: An jejunostomy fell out and replaced with pediatric Esteban catheter.. ATTENDING (OPERATING PHYSICIAN): Huma CONSENT: After a detailed discussion of the procedure, risks, benefits and alternative treatment options, informed consent was obtained. TIME OUT: A time out procedure was performed. The patient's identification was verified. Informed consent with agreement of procedure, site and position was obtained. All necessary equipment was available prior to procedure. CONTRAST: IV Optiray 320 COMPLICATIONS: None. MEDICATIONS: See MAR PROCEDURE DESCRIPTION: The existing Esteban was injected with contrast and fluoroscopic images were obtained confirming proper location. Attempts to access the bowel via the Esteban failed. Using a Kumpe the catheter was it is distance of a roadrunner wire, access to the jejunum was achieved alongside existing Esteban. The balloon of the Esteban catheter was then deflated and the existing Esteban catheter was removed over a wire. Initial attempts to replace the jejunostomy failed due to in the tract. After the tract was dilated with a 14 Senegalese dilator, 6 mm balloon as well as a 16 Senegalese dilator, an 18 Senegalese jejunostomy was advanced into the bowel. The balloon was inflated with 5 mL contrast. Contrast was injected confirming position patient tolerated the procedure well The procedure was performed by Dr. Finn FINDINGS: Pediatric Esteban with in jejunum. Procedure Note Luis Finn MD - 02/02/2024 PROCEDURE: Jejunostomy placement. 02/02/2024 INDICATION: An jejunostomy fell out and replaced with pediatric Foleycatheter.. ATTENDING (OPERATING PHYSICIAN): Huma CONSENT: After a detailed discussion of the procedure, risks, benefits andalternative treatment options, informed consent was obtained. TIME OUT: A time out procedure was performed. The patient's identificationwas verified. Informed consent with agreement of procedure, site andposition was obtained. All necessary equipment was available prior toprocedure. CONTRAST: IV Optiray 320 COMPLICATIONS: None. MEDICATIONS: See MAR PROCEDURE DESCRIPTION: The existing Esteban was injected with contrast andfluoroscopic images were obtained confirming proper location. Attempts toaccess the bowel via the Esteban failed. Using a Kumpe the catheter was itis distance of a roadrunner wire, access to the jejunum was achievedalongside existing Esteban. The balloon of the Esteban catheter was thendeflated and the existing Esteban catheter was removed over a wire. Initial attempts to replace the jejunostomy failed due to in the tract.After the tract was dilated with a 14 Senegalese dilator, 6 mm balloon as wellas a 16 Senegalese dilator, an 18 Senegalese jejunostomy was advanced into thebowel. The balloon was inflated with 5 mL contrast. Contrast wasinjected confirming position patient tolerated the procedure well The procedure was performed by Dr. Finn FINDINGS: Pediatric Esteban with in jejunum. IMPRESSION IMPRESSION: Successful jejunostomy catheter check and exchange. PLAN: Flush tube with 20-30 mL of water before and after each feeding andeach medication. Medications should be in liquid form if possible and ifnot available in liquid form they should be finely crushed, mixed in warmwater and administered individually. Routine maintenance change by IR in 6months. Luis Finn MD RAD SPECIAL PROCEDUR [facility] documented in this encounter Administered Medications Inactive Administered Medications - up to 3 most recent administrations Medication Order MAR Action Action Date Dose Rate Site Acetaminophen (Ofirmev) inj 1,000 mg 1,000 mg, Intravenous, ONCE, 1 dose, On Wed02/02/24 at 1115, Administer over 15 Minutes, Administer undiluted over 15 minutes! NOTE: Maximum of 4000 mg per 24 hours of acetaminophen from all acetaminophen containing products., Indication: Patient has malabsorption syndrome New Bag 02/02/2024 10:34 AM EDT 1,000 mg 400 mL/hr isolyte-S pH 7.4 infusion Intravenous, at 25 mL/hr, All Patients EXCEPT Dialysis patients Plasma-LYTE 148, isolyte-S, and isolyte-S pH 7.4 are considered equivalent - including for MAR barcode scanning., CONTINUOUS, Starting on Wed02/02/24 at 0745, Until Wed02/02/24 at 1542, Pre-Op Restarted 02/02/2024 9:29 AM EDT Continue from Pre-Op 02/02/2024 9:15 AM EDT 25 mL/hr New Bag 02/02/2024 7:45 AM EDT 25 mL/hr 25 mL/hr documented in this encounter Active and Recently Administered Medications Times are shown in EDT. Scheduled Medication Order 01/31/2024 02/01/2024 02/02/2024 Acetaminophen (Ofirmev) inj 1,000 mg (COMPLETED) 1,000 mg, Intravenous, ONCE, 1 dose, On Wed02/02/24 at 1115, Administer over 15 Minutes, Administer undiluted over 15 minutes! NOTE: Maximum of 4000 mg per 24 hours of acetaminophen from all acetaminophen containing products., Indication: Patient has malabsorption syndrome 1034 (New Bag - Prov ider: Mckenna Lawrence RN) Continuous Medication Order 01/31/2024 02/01/2024 02/02/2024 isolyte-S pH 7.4 infusion Intravenous, at 25 mL/hr, All Patients EXCEPT Dialysis patients Plasma-LYTE 148, isolyte-S, and isolyte-S pH 7.4 are considered equivalent - including for MAR barcode scanning., CONTINUOUS, Starting on Wed02/02/24 at 0745, Until Wed02/02/24 at 1542, Pre-Op 0745 (New Bag - Prov ider: Michelle Ortiz RN)0915 (Continue from Pre-Op - Provider: Leah Parkinson CRNA)0928 (Paused - Provider: Leah Parkinson CRNA - Comment: Switch to gravity)0929 (Restarted - Provider: Leah Parkinson CRNA)0957 (Anes Intra-Op Fluid - Provider: Leah Parkinson CRNA) PRN Medication Order 01/31/2024 02/01/2024 02/02/2024 Ioversol (Optiray 320) inj (CANCELED) ONCE PRN INTRA PROCEDURE, Starting on Wed02/02/24 at 0955, Until Wed02/02/24 at 1003, Intra-Op 0955 (Given - Provid er: Luis Finn MD) documented in this encounter Advance Directives * [...] Advance Directives occurred with: Patient Care Teams Chuck Wagon Driver Relationship Specialty Start Date End Date Kinjal Reynoso PA-C [address] [phone] PCP - General Physician [employer] Guidance Counselor 11/05/22 documented as of this encounter
--- OUTSIDE RECORDS SUMMARY | 2024-03-16 22:19 | External Medical Summary | Summary of Care ---
Author Name Unknown Organization [facility] Address [address] [place] [address] Phone [phone] Care Team Providers Care Crab Steamer Name Role Phone Kinjal Reynoso PA-C Primary Care Provider [phone] Encounter Details Date Type Department Care Team (Late st Contact Info) Description 02/03/2024 Telephone Interventional Radiology [facility], [facility] 1st [address] [place] [address] Diamond Reese MD [address] [place] [address] Allergies Active Allergy Reactions Criticality Noted Date [...] as of this encounter (statuses as of 02/03/2024) Medications Medication Sig Dispensed Refills Start Date End Date Status Naloxone HCl 4 MG/0.1ML Nasal Liquid (Narcan Nasal)Indications:Ch ronic pelvic pain in female,MEDICATION USE AGREEMENT,Chronic abdominal pain ADMINISTER 1 SPRAY INTO 1 NOSTRIL FOR SUSPECTED OPIOID OVERDOSE - SEEK IMMEDIATE MEDICAL ATTENTION. [email or web address] 2 Each 3 03/31/2023 Active Polyethylene Glycol [...] as directed, through J-tube via feeding pump. 28704 mL 11 10/05/2023 Active Peptamen AF Oral Liquid Administer 1,000 mL over 12 hours into J tube 4 times a day. 00674 mL 11 09/30/2023 09/24/2024 Active Enteral Feeding [...] 14 days 14 Tablet 01/20/2024 02/04/2024 Active Lurasidone HCl 40 MG Oral Tablet (Latuda) Take 1 tablet by mouth every night with meals 10 Tablet 02/01/2024 Active tiZANidine HCl 4 MG Oral Tablet (Zanaflex) Take 1 Tablet by mouth 2 times a day as needed for Muscle spasms for up to 10 doses. 10 Tablet 02/03/2024 Active documented as of this encounter (statuses as of 02/03/2024) Active Problems Problem Noted Date Diagnosed Date [...] as of this encounter (statuses as of 02/03/2024) Resolved Problems Problem Noted Date Diagnosed Date [...] as of this encounter (statuses as of 02/03/2024) Immunizations Name Administration Dates Next Due DTaP [...] encounter Miscellaneous Notes * Telephone Encounter - Diamond Reese MD - 02/03/2024 10:49 PM EDT Patient called regarding her J tube. The tube was exchanged yesterday at [facility] after it had fell out.Patient had pain and nausea later that night and went to the ED. CT obtained shows tube appropriately positioned. Patient was discharged. Now patient c/o some blood and leakage around tube. She also has severe pain when using tube, especially with feeds. She denies fever, chills, chest pain or SOB.She has some right sided abd pain where the tube is. The tube is not clogged or dislodged. Informedpatient to place dressing around the tube and tape it to stop the leakage temporarily. We will contact [facility] IR provider tomorrow to see if they want to check the tube. Advised patient to go to the ED if she develops fever, chills, severe abd pain or bleeding that saturates guaze pad among others. Patient expressed understanding and agrees with plan. Electronically signed: Diamond Reese MD IR/DR moya. documented in this encounter Plan of Treatment Upcoming Encounters Date Type Department Care Team (Late st Contact Info) Description 03/25/2024 9:20 AM EDT Office Visit [facility] [address] [phone] Kinjal [facility]oso [facility] [phone] Health Maintenance Due Date Last Done Comments [...] this encounter Medical Devices Implanted Type Area Anesthesia Attending Device Identifier Shelf Expiration Date Model / Serial / Lot Port Implant W/8f Poly Cath - [id number] Implanted:Qty : 1 on 05/18/2023 by Juan Jose Connell, at OR [facility] Right: Chest CR BARD : PERIPHERAL VASCULAR [id number] 11/18/2024 [id number] / / [id number] documented as of this encounter Advance Directives [...] Advance Directives occurred with: Patient Care Teams Crab Steamer Relationship Specialty Start Date End Date Kinjal Reynoso PA-C [address] [address] PCP - General Physician Ground Support Agent 11/05/22 documented as of this encounter
--- OUTSIDE RECORDS SUMMARY | 2024-03-16 22:19 | External Medical Summary | Summary of Care ---
Author Name Unknown Organization [facility] Address [address] [place] [address] Phone [phone] Care Team Providers Care Engineering Systems Analyst Name Role Phone Edgardo Kinjal Britt PA-C Primary Care Provider [phone] Encounter Details Date Type Department Care Team (Late st Contact Info) Description 02/07/2024 Orders Only [facility] [address] [place] [address] Ani Mcgee CHRA My[employer] Research Other*[id number] Allergies Active Allergy Reactions Criticality Noted Date [...] as of this encounter (statuses as of 02/07/2024) Medications Medication Sig Dispensed Refills Start Date End Date Status Naloxone HCl 4 MG/0.1ML Nasal Liquid (Narcan Nasal)Indications:Ch ronic pelvic pain in female,MEDICATION USE AGREEMENT,Chronic abdominal pain ADMINISTER 1 SPRAY INTO 1 NOSTRIL FOR SUSPECTED OPIOID OVERDOSE - SEEK IMMEDIATE MEDICAL ATTENTION. [email or web address] 2 Each 3 03/31/2023 Active Polyethylene Glycol [...] as directed, through J-tube via feeding pump. 49321 mL 11 10/05/2023 Active Peptamen AF Oral Liquid Administer 1,000 mL over 12 hours into J tube 4 times a day. 96723 mL 09/30/2023 09/24/2024 Active Enteral Feeding Piston [...] as of this encounter (statuses as of 02/07/2024) Active Problems Problem Noted Date Diagnosed Date [...] as of this encounter (statuses as of 02/07/2024) Resolved Problems Problem Noted Date Diagnosed Date [...] as of this encounter (statuses as of 02/07/2024) Immunizations Name Administration Dates Next Due DTaP [...] Description 03/25/2024 9:20 AM EDT Office Visit [facility] [address] [phone] Kinjal Reynoso PA-C [address] [address] Scheduled Orders Name Type Priority Associated Diagnoses Orde r Schedule MYCODE SUBSEQUENT ADULT Lab Routine My[employer] Research Other*[id number] Every 6 Months for 2 Occurrences starting 02/07/2024 until 02/26/2025 Health Maintenance Due Date Last Done Comments [...] this encounter Medical Devices Implanted Type Area Facilities Maintenance Assistant Device Identifier Shelf Expiration Date Model / Serial / Lot Port Implant W/8f Poly Cath - [id number] Implanted:Qty : 1 on 05/18/2023 by Juan Jose Connell, DO at OR [facility] Right: Chest CR BARD : PERIPHERAL VASCULAR [id number] 11/18/2024 [id number] / / [id number] documented as of this encounter Visit Diagnoses Diagnosis MyCode Research Other*[id number] documented in this encounter Advance Directives * [...] Advance Directives occurred with: Patient Care Teams Engineering Systems Analyst Relationship Specialty Start Date End Date Kinjal Reynoso PA-C [address] [address] PCP - General Physician Quebracho Tanner 11/05/22 documented as of this encounter
--- OUTSIDE RECORDS SUMMARY | 2024-03-16 22:19 | External Medical Summary ---
Author Name Unknown Address Unknown Organization K1F:LAB[facility]ATORY [facility] - [address] [facility] [place] [address] Laboratory Report Ordering Provider Test Date Status SCAR ESCALERA 02/03/2024 04:36:01 Final Observation Date Value Abnormality Reference (Units ) Status BUN 02/03/2024 04:36:01 8 6-20 (mg/dL) Final Creatinine 02/03/2024 04:36:01 0.6 0.5-1.0 (mg/dL) Final Glomerular filtration rate/1.73 sq M.predicted [Volume Rate/Area] in Serum, Plasma or Blood by Creatinine-based formula (CKD-EPI) 02/03/2024 04:36:01 >90 >=60 (mL/min) Final eGFR is calculated based on the CKD-EPI 2020 equation. Sodium 02/03/2024 04:36:01 142 135-146 (m mol/L) Final Potassium 02/03/2024 04:36:01 3.9 3.5-5.1 (m mol/L) Final Cl 02/03/2024 04:36:01 107 98-107 (mm ol/L) Final CO2 02/03/2024 04:36:01 25 22-32 (mmo l/L) Final Anion gap 02/03/2024 04:36:01 10 7-15 (mmol /L) Final Glucose 02/03/2024 04:36:01 103 70-120 (mg /dL) Final Albumin 02/03/2024 04:36:01 4.3 3.8-5.0 (g /dL) Final AST (Aspartate aminotransferase) 02/03/2024 04:36:01 16 10-35 (U/L) Final Results may be falsely eleva carlos manuel due to hemolysis. Alk Phos 02/03/2024 04:36:01 77 35-130 (U/ L) Final Bilirubin, Total 02/03/2024 04:36:01 <0.2 <=1 .2 (mg/dL) Final Calcium 02/03/2024 04:36:01 9.4 8.4-10.2 ( mg/dL) Final Protein 02/03/2024 04:36:01 7.0 6.0-8.3 (g /dL) Final ALT (Alanine aminotransferase) 02/03/2024 04:36:01 8 Below low normal 10-35 (U/L) Final Performing Location LABORATORY [facility] [place] [address]
--- OUTSIDE RECORDS SUMMARY | 2024-03-16 22:19 | External Medical Summary | Summary of Care ---
Author Name Unknown Organization [facility] Address [address] [place] [address] Phone [phone] Care Team Providers Care Marketing Graphics Specialist Name Role Phone Kinjal Reynoso PA-C Primary Care Provider [phone] Reason for Visit * Reason Onset Date Comments Scheduling 02/01/2024 Encounter Details Date Type Department Care Team (Late st Contact Info) Description 02/01/2024 Telephone Interventional Radiology, [facility] [address] [place] [address] Luis Finn MD [address] [place] [address] Scheduling Allergies Active Allergy Reactions Criticality [...] as of this encounter (statuses as of 02/01/2024) Medications Medication Sig Dispensed Refills Start Date End Date Status Naloxone HCl 4 MG/0.1ML Nasal Liquid (Narcan Nasal)Indications:Ch ronic pelvic pain in female,MEDICATION USE AGREEMENT,Chronic abdominal pain ADMINISTER 1 SPRAY INTO 1 NOSTRIL FOR SUSPECTED OPIOID OVERDOSE - SEEK IMMEDIATE MEDICAL ATTENTION. [email or web address] 2 Each 3 03/31/2023 Active Polyethylene Glycol [...] as directed, through J-tube via feeding pump. 75733 mL 11 10/05/2023 Active Peptamen AF Oral Liquid Administer 1,000 mL over 12 hours into J tube 4 times a day. 22226 mL 09/30/2023 09/24/2024 Active Enteral Feeding Piston [...] as of this encounter (statuses as of 02/01/2024) Active Problems Problem Noted Date Diagnosed Date [...] as of this encounter (statuses as of 02/01/2024) Resolved Problems Problem Noted Date Diagnosed Date [...] as of this encounter (statuses as of 02/01/2024) Immunizations Name Administration Dates Next Due DTaP [...] Telephone Encounter - Mona Webber OSA - 02/01/2024 9:17 AM EDT Spoke to patient to schedule the Jejunostomy tube exchange for 02/01 at [facility] patient will be given General anesthesia Patient identified by: name Person taught: Patient METHOD: Lecture-telephone interview PATIENT INSTRUCTIONS GIVEN: - General Preoperative Instructions Reviewed - No eating or drinking after midnight the night prior to procedure. -Brand Sales Consultant required Location and check-in instructions Verbalizes understanding of education: Yes Procedure date at time of Imaging Encounter: 02/01 What procedure is patient having? Jejunostomy tube Exchange Laterality confirmed as Not Applicable Does the patient have a yellow bar? did not The Patient was given the opportunity to ask questions concerning the procedure. Signature: MC Fisher 02/01/2024 documented in this encounter Plan of Treatment Upcoming Encounters Date Type Department Care Team (Late st Contact Info) Description 02/02/2024 8:00 AM EDT Hospital Encounter OR [facility], Operating Room, [facility] - 4th Floor [address] [place] [address] [address] [address] Luis Finn MD [address] [address] 02/02/2024 8:00 AM EDT - 02/02/2024 8:48 AM EDT Surgery OR [facility], Operating Room, [facility] - 4th Floor [address] [address] Luis Finn MD [address] [address] PERCUTANEOUS REPLACE GASTROSTOMY OR CECOSTOMY TUBE WITH FLUORO 03/25/2024 9:20 AM EDT Office Visit [facility] [address] [phone] Kinjal Reynoso PA-C [address] [address] Scheduled Procedures Name Priority Associated Diagnoses Date/Ti me PERCUTANEOUS REPLACE GASTROSTOMY OR CECOSTOMY TUBE WITH FLUORO Dislodged jejunostomy tube 02/02/2024 8:00 AM EDT Health Maintenance Due Date Last [...] encounter Medical Devices Implanted Type Area Family Lawyer Device Identifier Shelf Expiration Date Model / Serial / Lot Port Implant W/8f Poly Cath - [id number] Implanted:Qty : 1 on 05/18/2023 by Juan Jose Connell, at OR [facility] Right: Chest CR BARD : PERIPHERAL VASCULAR [id number] 11/18/2024 [id number] / / [id number] documented as of this encounter Advance Directives [...] Advance Directives occurred with: Patient Care Teams Marketing Graphics Specialist Relationship Specialty Start Date End Date Kinjal Reynoso PA-C [address] [address] PCP - General Physician Titrator 11/05/22 documented as of this encounter
--- OUTSIDE RECORDS SUMMARY | 2024-03-16 22:19 | External Medical Summary ---
Author Name Unknown Address Unknown Organization K01:[facility] [address] [place] [address] Laboratory Report Ordering Provider Test Date Status ZAHRAAANGEL 02/05/2024 18:20:37 Final Light growth normal lottie Observation Date Value Abnormality Reference (Units ) Status Bacteria identified in Specimen by Culture 02/05/2024 18:20:37 [id number]^KLEBSIELL A PNEUMONIAE Abnormal Final Few Klebsiella pneumoniae Bacteria identified in Specimen by Culture 02/05/2024 18:20:37 [id number]^PSEUDOMONAS AERUGINOSA Abnormal Final Three colonies Pseudomonas a eruginosa Performing Location [facility] [place] [address] [place] [address]. [facility] [address] Ordering Provider Test Date Status ZAHRAAANGEL 02/05/2024 18:20:37 Final Observation Date Value Abnormality Reference (Units) Status Ampicillin + Sulbactam 02/05/2024 18:20:37 <=2 Susceptible Final Cefepime susceptibility 02/05/2024 18:20:37 <=1 Susceptible Final Ceftriaxone suceptibility 02/05/2024 18:20:37 <=1 Susceptible Final Ciprofloxacin 02/05/2024 18:20:37 <=0.25 Susceptible Final Gentamicin susceptibility 02/05/2024 18:20:37 <=1 Susceptible Final Piperacillin + Tazobactamsusceptibility 02/05/2024 18:20:37 <=4 Susceptible Final TMP-SMZ susceptibility 02/05/2024 18:20:37 <=20 Susceptible Final Performing Location [facility] [address] [facility] [address] Ordering Provider Test Date Status ANGEL VITAL 02/05/2024 18:20:37 Final Observation Date Value Abnormality Reference (Units) Status Cefepime susceptibility 02/05/2024 18:20:37 2 Susceptible Final Ciprofloxacin 02/05/2024 18:20:37 <=0.25 Susceptible Final Levofloxacin susceptibility 02/05/2024 18:20:37 1 Susceptible Final Piperacillin + Tazobactamsusceptibility 02/05/2024 18:20:37 <=4 Susceptible Final Tobramycinsusceptibility 02/05/2024 18:20:37 <=1 Susceptible Final Test: Culture, Wound, Superf icial, Aerobic
Specimen Source: Abdomen
Specimen Type: Superficial Wound
Specimen Date: 02/05/20241819
Result Date: 02/08/2024 1419
Result Status: Final result
Abnormal: Yes
Resulting Lab: [facility]
[address] [facility] [address]
[place] [address]

CULTURE

Few Klebsiella pneumoniae (Abnormal)

Three colonies Pseudomonas aeruginosa (Abnormal)

Light growth normal lottie

SUSCEPTIBILITY

Klebsiella Pseudomonas
pneumoniae aeruginosa
METHOD MICROBROTH MICROBROTH
DILUTIONS DILUTIONS

AMPICILLIN/SULBACTAM <=2 Susceptible
CEFEPIME <=1 Susceptible 2 Susceptible
CEFTRIAXONE <=1 Susceptible
CIPROFLOXACIN <=0.25 Susceptible <=0.25 Susceptible
GENTAMICIN <=1 Susceptible
LEVOFLOXACIN 1 Susceptible
PIPERACILLIN TAZOBACTAM <=4 Susceptible <=4 Susceptible
TOBRAMYCIN <=1 Susceptible
TRIMETH/SULFAMETHOXAZOLE <=20 Susceptible

null Performing Location [facility] [place] [address] [facility] [address]
--- OUTSIDE RECORDS SUMMARY | 2024-03-16 22:19 | External Medical Summary | Summary of Care ---
Author Name Unknown Organization [facility] Address [address] [place] [address] Phone [phone] Care Team Providers Care Building Supervisor Name Role Phone Kinjal Reynoso PA-C Primary Care Provider [phone] Encounter Details Date Type Department Care Team (Late st Contact Info) Description 02/09/2024 Orders Only [facility] Emergency Department ([facility]) [address] [place] [address] Maylin Sharif MD [address] [place], [place] [phone] Allergies Active Allergy Reactions Criticality Noted Date [...] as of this encounter (statuses as of 02/09/2024) Medications Medication Sig Dispensed Refills Start Date End Date Status Naloxone HCl 4 MG/0.1ML Nasal Liquid (Narcan Nasal)Indications:C hronic pelvic pain in female,MEDICATION USE AGREEMENT,Chronic abdominal pain ADMINISTER 1 SPRAY INTO 1 NOSTRIL FOR SUSPECTED OPIOID OVERDOSE - SEEK IMMEDIATE MEDICAL ATTENTION. [email or web address] 2 Each 3 3 Active Polyethylene Glycol [...] as directed, through J-tube via feeding pump. 05183 mL 11 4 Active Peptamen AF Oral Liquid Administer 1,000 mL over 12 hours into J tube 4 times a day. 69080 mL 11 4 09/25/19 25 Active Enteral Feeding Piston Syringe Use as directed. 30 Each 11 4 Active Albuterol Sulfate HFA 108 (90 Base) MCG/ACT Inhalation Aerosol Solution Inhale 2 puffs by mouth every 6 hours As Needed for shortness of breath or wheezing 8.5 g 4 Active Acetaminophen 160 MG/5ML Oral Suspension [...] 1 Capsule before bedtime. 90 Capsule 2 4 Active Lurasidone HCl 40 MG Oral Tablet (Latuda) Take 1 tablet by mouth every night with meals 15 Tablet 4 Active Ciprofloxacin HCl 500 MG Oral Tablet (Cipro) Take 1 Tablet by mouth in the morning and 1 Tablet before bedtime. Do all this for 7 days. 14 Tablet 4 02/16/20 24 Active tiZANidine HCl 4 MG Oral Tablet (Zanaflex) Take 1 Tablet by mouth 2 times a day as needed for Muscle spasms for up to 10 doses. 10 Tablet 4 02/09/20 24 Discontinued documented as of this encounter (statuses as of 02/09/2024) Active Problems Problem Noted Date Diagnosed Date [...] as of this encounter (statuses as of 02/09/2024) Resolved Problems Problem Noted Date Diagnosed Date [...] as of this encounter (statuses as of 02/09/2024) Immunizations Name Administration Dates Next Due DTaP [...] 03/25/2024 9:20 AM EDT Office Visit [facility] [address] [phone] Kinjal Reynoso PA-C [address] [address] Health Maintenance Due Date Last Done Comments [...] this encounter Medical Devices Implanted Type Area In Flight Refueling System Repairer Device Identifier Shelf Expiration Date Model / Serial / Lot Port Implant W/8f Poly Cath - [id number] Implanted:Qty : 1 on 05/18/2023 by Juan Jose Connell, at OR [facility] Right: Chest CR BARD : PERIPHERAL VASCULAR [id number] 11/18/2024 [id number] / / [id number] documented as of this encounter Advance Directives [...] Advance Directives occurred with: Patient Care Teams Building Supervisor Relationship Specialty Start Date End Date Kinjal Reynoso PA-C [address] [address] PCP - General Physician Vamper 11/05/22 documented as of this encounter
--- OUTSIDE RECORDS SUMMARY | 2024-03-16 22:19 | External Medical Summary ---
Author Name Unknown Address Unknown Organization K01:[facility] [place] [address] [place] [id number] Laboratory Report Ordering Provider Test Date Status SCAR ESCALERA 02/03/2024 05:33:25 Final Observation Date Value Abnormality Reference (Units) Status Bacteria identified in Specimen by Culture 02/03/2024 05:33:25 No significant growth Final Test: Culture, Urine, Quanti tative
Specimen Source: Urine, Unspecified
Specimen Type: Urine
Specimen Date: 02/03/2024 0533
Result Date: 02/04/2024 1049
Result Status: Final result
Resulting Lab: [facility]
[address]
[facility] [address]

CULTURE

No significant growth

null Performing Location [facility] - [address] [facility] [address]
--- OUTSIDE RECORDS SUMMARY | 2024-03-16 22:19 | External Medical Summary ---
Author Name Unknown Address Unknown Organization K1F:LAB[facility]ATORY [facility] - [address] [facility] [place] [address] Laboratory Report Ordering Provider Test Date Status SCAR ESCALERA 02/03/2024 04:36:01 Final Observation Date Value Abnormality Reference (Units ) Status SYNC LEUKOCYTES IN BLOOD BY AUTOMATED COUNT 02/03/2024 04:36:01 8.68 4.00-10.80 (K/uL) Final Segs 02/03/2024 04:36:01 64.6 40.0-75.0 (%) Final Lymphs % 02/03/2024 04:36:01 27.6 18.0-42.0 (%) Final Monos 02/03/2024 04:36:01 6.6 1.0-11.0 (%) Final Eosinophils 02/03/2024 04:36:01 0.8 0.0-6.0 (%) Final Basos 02/03/2024 04:36:01 0.2 0.0-2.0 (%) Final Immature Granulocyte, Percent 02/03/2024 04:36:01 0.2 0.0-2.0 (%) Final Absolute Segs 02/03/2024 04:36:01 5.60 1.80-7.70 (K/uL) Final Lymphs, absolute 02/03/2024 04:36:01 2.40 1.00-4.80 (K/ul) Final Monos, Abs 02/03/2024 04:36:01 0.57 0.00-1.10 (K/uL) Final Eos, Abs 02/03/2024 04:36:01 0.07 0.00-0.70 (K/uL) Final Basos, Abs 02/03/2024 04:36:01 0.02 0.00-0.20 (K/uL) Final Immature Granulocytes, Number 02/03/2024 04:36:01 0.02 0.00-0.20 (K/uL) Final Performing Location LABORATORY [facility] - [address] [place] [address]
--- OUTSIDE RECORDS SUMMARY | 2024-03-16 22:19 | External Medical Summary ---
Author Name Unknown Address Unknown Organization K1F:LABORATORY [facility] - [address] [place] [address] Laboratory Report Ordering Provider Test Date Status ALVIN LOU 02/17/2024 00:52:25 Final Observation Date Value Abnormality Reference (Units ) Status WBC, Total 02/17/2024 00:52:25 10.72 4.00-10.80 (K/uL) Final RBC 02/17/2024 00:52:25 4.17 3.85-5.15 (M/uL) Final Hemoglobin 02/17/2024 00:52:25 13.1 12.0-15.3 (g/dL) Final HCT 02/17/2024 00:52:25 38.0 36.0-45.2 (%) Final MCV 02/17/2024 00:52:25 91.1 81.5-97.5 (fL) Final MCH 02/17/2024 00:52:25 31.4 27.0-34.0 (pg) Final MCHC 02/17/2024 00:52:25 34.5 32.0-36.0 (g/dL) Final RDW 02/17/2024 00:52:25 12.8 11.5-15.5 (%) Final Platelets 02/17/2024 00:52:25 227 140-400 (K/uL) Final MPV 02/17/2024 00:52:25 10.7 6.6-11.1 (fL) Final Nucleated erythrocytes/100 leukocytes [Ratio] in Blood by Automated count 02/17/2024 00:52:25 0 <=0 (/100 WBCs) Final Performing Location [facility]ATORY [facility] - [address] [place] [address]
--- OUTSIDE RECORDS SUMMARY | 2024-03-16 22:19 | External Medical Summary | Summary of Care ---
Author Name Unknown Organization [facility] Address [address] [place] [address] Phone [phone] Care Team Providers Care Denture Processor Name Role Phone Kinjal Reynoso PA-C Primary Care Provider [phone] Reason for Visit * Reason Comments Other J tube clogged * Auth/Cert Specialty Diagnoses / Procedures Referred By Contdulce t Referred To Contact [facility] [address] [place] [address] Phone: [phone] Emergency Medicine [facility] [address] [place] [address] Referral ID Status Reason Start Date Expiration Date Visits Re quested Visits Authorized [id number] Encounter Details Date Type Department Care Team ([facility] Contact Info) Description 01/31/2024 4:22 PM EDT - 01/31/2024 6:14 PM EDT Emergency [facility] Emergency Department ([facility]) [address] [place] [address] Maylin Sharif MD [address] [place] [address] Malfunction of jejunostomy tube (HCC) (Primary Dx); Pain of jejunostomy tube site (HCC) Discharge Disposition: Home - Self Care Allergies [...] OPIOID OVERDOSE - SEEK IMMEDIATE MEDICAL ATTENTION. [email or web address] 2 Each 3 03/31/2023 Active Polyethylene Glycol [...] as directed, through J-tube via feeding pump. 58240 mL 11 10/05/2023 Active Peptamen AF Oral Liquid Administer 1,000 mL over 12 hours into J tube 4 times a day. 97978 mL 11 09/30/2023 09/24/2024 Active Enteral Feeding [...] Sign Reading Time Taken Comments Blood Pressure 135/104 01/31/2024 5:15 PM EDT Pulse 65 01/31/2024 5:15 PM EDT Temperature 36.6 C (97.9 F) 01/31/2024 3:21 PM ED T Respiratory Rate 18 01/31/2024 5:15 PM EDT Oxygen Saturation 100% 01/31/2024 3:21 PM EDT Inhaled Oxygen Concentration - - Weight 72.6 kg (160 lb) 01/31/2024 3:21 PM EDT Height 157.5 cm (5' 2") 01/31/2024 3:21 PM EDT Body Mass Index 29.26 01/31/2024 3:21 PM EDT documented in this encounter Functional [...] this encounter Discharge Instructions * Discharge Instructions* Maylin Sharif MD - 01/31/2024 6:05 PM EDT Follow up with your provider's as scheduled documented in this encounter ED Notes * Maylin Sharif MD - 01/31/2024 5:12 PM EDT HISTORY OF PRESENT ILLNESS Anirudh Peñaloza is a 23 year old female who presents to the ED for evaluation of Other (J tube clogged). The patient was seen at 01/31/24 1705. Her stomach hurts, right lower abdomen. And her jejunostomy clogged when she tried to use it about an hour ago. She says it was okay when she gave herself tube feedings last evening. Nausea, diarrhea. Headache. Patient was apparently seen here on January 28 for dislodged jejunostomy tube and it was replaced with a Esteban catheter, she was transferred to [facility] but the tube was in the correct place so she is to follow up with Interventional Radiology for replacement jejunostomy tube Family member at bedside Review of Systems Constitutional: Negative for fever. HENT: Negative for congestion, ear pain, rhinorrhea and sore throat. Respiratory: Negative for cough and shortness of breath. Cardiovascular: Negative for chest pain and leg swelling. Gastrointestinal: Positive for abdominal pain, diarrhea and nausea. Negative for constipation and vomiting. Genitourinary: Negative for dysuria, frequency and hematuria. Musculoskeletal: Negative for back pain and myalgias. Skin: Negative for rash. Neurological: Positive for headaches. Negative for dizziness, weakness and light-headedness. All other systems reviewed and are negative. The patient's allergies, past history, and medications were reviewed. PHYSICAL EXAM Initial Vitals (see all): BP 117/98 | Pulse 100 | Resp 17 | Temp 97.9 | O2 100 %Weight 72.58 kg | Height 157.5 cm | BMI 29.26kg/m2 Initial Pain Assessment (see all): 7 (severe pain)/10, Burning , Throbbing, location: abdomen ([facility] Adult Scale 0-10) Physical Exam Vitals and nursing note reviewed. Constitutional: General: She is in acute distress (Moderate). Appearance: She is not ill-appearing, toxic-appearing or diaphoretic. HENT: Head: Normocephalic and atraumatic. Cardiovascular: Rate and Rhythm: Normal rate and regular rhythm. Heart sounds: No murmur heard. No gallop. Pulmonary: Effort: Pulmonary effort is normal. No respiratory distress. Breath sounds: Normal breath sounds. Abdominal: General: Bowel sounds are normal. There is no distension. Palpations: Abdomen is soft. Tenderness: There is abdominal tenderness in the right lower quadrant. There is no guarding or rebound. Comments: Multiple well-healed surgical incisions. There is a tube exiting the right lower abdomen.Some mild tenderness around the site. No surrounding skin changes or erythema or drainage. No guarding noted Musculoskeletal: General: No swelling, tenderness or deformity. [...] is 6. Psychiatric: Mood and Affect: Mood normal. Speech: Speech normal. Behavior: Behavior normal. Behavior is cooperative. PROCEDURES AND TREATMENTS ED Orders | ED Results MEDICAL DECISION MAKING Nursing notes and vital signs were reviewed. ED Course as of 02/01/24 0120 WedJan 31, 2024 1800 Per ED nursing staff, the current tube flushed easily with warm water. [DH] 180 Abdominal x-ray: Nonobstructive bowel gas pattern. ED physician interpretation [] 180 Reassessment: Patient has remained stable. She is currently rubbing her hand over the jejunostomy tube site, tube does not currently appear dislodged. Results and plan for disposition discussed with patient and family member [DH] ED Course User Index [] Maylin Sharif MD Differential Diagnoses Based on my history, physical exam, and evaluation, the differential includes, but is not limited, to the following diagnoses: Tube obstruction, tube dislodgement, adhesions, doubt bowel obstruction,doubt abscess. Amount and/or Complexity of Data Reviewed Radiology: ordered. Risk OTC drugs. Clinical Impressions Malfunction of jejunostomy tube (HCC) Pain of jejunostomy tube site (HCC) Disposition Discharged. The patient's condition at disposition was: stable. Maylin Sharif This chart was completed in part utilizing [employer] Voice Recognition Software. Grammatical errors, random word insertions, prounoun errors, and incomplete sentences are an occasional consequence of this system due to software limitations, ambient noise, and hardware issues. Any formal questions or concerns about the content, text, or information contained within the body of this dictation should be directly addressed to the provider for clarification. Maylin Sharif MD 02/01/2024 1:20 AM * Bettina Kinsey RN - 01/31/2024 3:19 PM EDT Pt here for J tube clogged. States she was here 2 days ago and a esteban was placed. Sent to [facility] and IR said that she can have the tube replaced on an OP basis. She states she contacted IR and "they're trying to get me an appt for my new tube". documented in this encounter Miscellaneous Notes * ED Architectural Associate Note - Mckenna Arriola RN - 01/31/2024 6:12 PM EDT Pt given dc instructions states understanding, pt walked otd w steady gait * Pt Handout (on AVS) - Maylin Sharif MD - 01/31/2024 6:05 PM EDT [id number] Unknown Causes of Abdominal Pain(Adult) The exact [...] bleeding or missed period Last Reviewed Date: 04/21/202119992283-9691 [employer]. All rights reserved. This information is not intended as a substitute for professional medical care. Always follow your healthcare professional's instructions. * Pt Handout (on AVS) - Maylin Sharif MD - 01/31/2024 6:05 PM EDT [id number] Discharge Instructions: Caring for Your Jejunostomy Tube [...] 24 hours Decreased urination Last Reviewed Date: 07/22/202119998631-3974 [employer]. All rights reserved. This information is not intended as a substitute for professional medical care. Always follow your healthcare professional's instructions. * ED Architectural Associate Note - Mckenna Arriola RN - 01/31/2024 5:47 PM EDT Pt g tube flushed w/o problem with luke warm water documented in this encounter Plan of Treatment Upcoming Encounters Date Type Department Care Team (Late st Contact Info) Description 03/25/2024 9:20 AM EDT [facility] [place] [address] [address] Kinjal Reynoso PA-C [address] [place] [address] Health Maintenance Due Date Last Done Comments [...] encounter Medical Devices Implanted Type Area Senior Php Software Developer Device Identifier Shelf Expiration Date Model / Serial / Lot Port Implant W/8f Poly Cath - [id number] Implanted:Qty : 1 on 05/18/2023 by Juan Jose Connell, at OR [facility] Right: Chest CR BARD : PERIPHERAL [employer] [id number] 11/18/2024 [id number] / / [id number] documented as of this encounter Procedures Procedure Name Priority Date/Time Associated Diagnosis Comments XR ABDOMEN 2 VIEWS STAT 01/31/2024 5: 32 PM EDT documented in this encounter Results * XR ABDOMEN 2 VIEWS (01/31/2024 5:32 PM EDT) Anatomical Region Laterality Modality Abdomen, Pelvis Digital Radiogra phy 01/31/2024 5:22 PM EDT Impressions 01/31/2024 6:43 PM EDT IMPRESSION: 1. The patient does have a catheter overlying the right flank consistent with a jejunostomy tube. Its exact position and functionality cannot be determined from the plain films. THIS DOCUMENT HAS BEEN ELECTRONICALLY SIGNED BY GIO CHAVEZ MD Narrative 01/31/2024 6:43 PM EDT PROCEDURE INFORMATION: Exam: XR Abdomen Exam date and time: 01/31/2024 5:22 PM Age: 23 years old Clinical indication: Other: J tube blocked. ; Additional info: Right lower abdominal pain. Apparent j tube in place right lower abdomen TECHNIQUE: Imaging protocol: Radiologic exam of the abdomen. Views: 2 Views. Upright and supine views. COMPARISON: CT ABDOMEN WO IV/ORAL CONTRAST 01/29/2024 6:45 AM FINDINGS: Gastrointestinal tract: Gas and fecal material is present throughout the colon. There is no mechanical obstruction. The patient has a jejunostomy tube entering into the left flank. Its intra-abdominal position cannot be determined on the plain films. Intraperitoneal space: No obvious ascites. Bones/joints: No acute bony changes of the lumbar spine or pelvis Procedure Note Gio Chavez MD - 01/31/2024 PROCEDURE INFORMATION: Exam: XR Abdomen Exam date and time: 01/31/2024 5:22 PM Age: 23 years old Clinical indication: Other: J tube blocked. ; Additional info: Right lower abdominal pain. Apparent j tube in place right lower abdomen TECHNIQUE: Imaging protocol: Radiologic exam of the abdomen. Views: 2 Views. Upright and supine views. COMPARISON: CT ABDOMEN WO IV/ORAL CONTRAST 01/29/2024 6:45 AM FINDINGS: Gastrointestinal tract: Gas and fecal material is present throughout the colon. There is no mechanical obstruction. The patient has a jejunostomy tube entering into the left flank. Its intra-abdominal position cannot be determined on the plain films. Intraperitoneal space: No obvious ascites. Bones/joints: No acute bony changes of the lumbar spine or pelvis IMPRESSION IMPRESSION: 1. The patient does have a catheter overlying the right flank consistentwith a jejunostomy tube. Its exact position and functionality cannot bedetermined from the plain films. THIS DOCUMENT HAS BEEN ELECTRONICALLY SIGNED BY GIO CHAVEZ MD Maylin Sharif MD RADIOLOGY ([facility]) documented in this encounter Visit Diagnoses Diagnosis Malfunction of jejunostomy tube (HCC)- Primary Mechanical complication of colostomy and enterostomy Pain of jejunostomy tube site (HCC) Other complication of colostomy or enterostomy documented in this encounter Administered Medications Inactive Administered Medications - up to 3 most recent administrations Medication Order MAR Action Action Date Dose Rate Site Acetaminophen (Tylenol) tab 650 mg 650 mg, Oral, ONCE, On 01/31/24 at 1745, For 1 dose, Maximum of 4 grams (4000 mg) per day. Given 01/31/2024 5:20 PM EDT 650 mg documented in this encounter Active and Recently Administered Medications Times are shown in EDT. Scheduled Medication Order 01/29/2024 01/30/2024 01/31/2024 Acetaminophen (Tylenol) tab 650 mg (COMPLETED) 650 mg, Oral, ONCE, On 01/31/24 at 1745, For 1 dose, Maximum of 4 grams (4000 mg) per day. 1720 (Given - Provid er: Mckenna Arriola RN) documented in this encounter Advance Directives [...] Advance Directives occurred with: Patient Care Teams Denture Processor Relationship Specialty Start Date End Date Kinjal Reynoso PA-C [address] [id number] PCP - General Physician Manager Environmental 11/05/22 documented as of this encounter
--- OUTSIDE RECORDS SUMMARY | 2024-03-16 22:19 | External Medical Summary | Summary of Care ---
Author Name Unknown Organization [facility] Address [address] [place] [address] Phone [phone] Care Team Providers Care Cafe Associate Name Role Phone Kinjal Reynoso PA-C Primary Care Provider [phone] Reason for Visit * Reason Comments Drainage J tube * Auth/Cert Specialty Diagnoses / Procedures Referred By Contac t Referred To Contact [facility] [address] [place] [address] Phone: [phone] Emergency Medicine [facility] [address] [place] [address] Referral ID Status Reason Start Date Expiration Date Visits Re quested Visits Authorized [id number] Encounter Details Date Type Department Care Team ([facility] Contact Info) Description 02/05/2024 5:43 PM EDT - 02/05/2024 6:39 PM EDT [facility] Emergency Department ([facility]) [address] [place] [address] Rolo Cruz MD [address] [place] [address] Wound drainage (Primary Dx) Discharge Disposition: Home - Self [...] as of this encounter (statuses as of 02/06/2024) Medications Medication Sig Dispensed Refills Start Date End Date Status Naloxone HCl 4 MG/0.1ML Nasal Liquid (Narcan Nasal)Indications:Ch ronic pelvic pain in female,MEDICATION USE AGREEMENT,Chronic abdominal pain ADMINISTER 1 SPRAY INTO 1 NOSTRIL FOR SUSPECTED OPIOID OVERDOSE - SEEK IMMEDIATE MEDICAL ATTENTION. [email or web address] 2 Each 3 03/31/2023 Active Polyethylene Glycol [...] as directed, through J-tube via feeding pump. 60071 mL 11 10/05/2023 Active Peptamen AF Oral Liquid Administer 1,000 mL over 12 hours into J tube 4 times a day. 66395 mL 11 09/30/2023 09/24/2024 Active Enteral Feeding [...] as of this encounter (statuses as of 02/06/2024) Active Problems Problem Noted Date Diagnosed Date [...] as of this encounter (statuses as of 02/06/2024) Resolved Problems Problem Noted Date Diagnosed Date [...] as of this encounter (statuses as of 02/06/2024) Immunizations Name Administration Dates Next Due DTaP Dipth/Tet/Acell Pertussis (Infanrix), Peds 01/18/2007,07/03/2002,04/18/2002,11/07 HIB PRP-OMP, 3 dose (Pedvax) 07/03/2002,04/18/20 02,2001 Hepatitis A, Ped/Adol., 18 y ear and below, 2-Dose 02/28/2016,09/29/2006 Hepatitis B, 0-19 yrs 01/18/2007,07/03/2002,050 06/2001 [...] Sign Reading Time Taken Comments Blood Pressure 131/80 02/05/2024 6:30 PM EDT Pulse 75 02/05/2024 6:30 PM EDT Temperature 36.4 C (97.5 F) 02/05/2024 5:33 PM ED T Respiratory Rate 16 02/05/2024 6:30 PM EDT Oxygen Saturation 100% 02/05/2024 5:33 PM EDT Inhaled Oxygen Concentration - - Weight 72.6 kg (160 lb) 02/05/2024 5:33 PM EDT Height 157.5 cm (5' 2") 02/05/2024 5:33 PM EDT Body Mass Index 29.26 02/05/2024 5:33 PM EDT documented in this [...] this encounter Discharge Instructions * Discharge Instructions* Oelhaf, Rolo Waldemar, MD - 02/05/2024 6:32 PM EDT The ER doctor would like you to continue to use the tube as previously directed since use of the tube seems to be going well. To your primary care this week to review results of culture of the tube insertion site. Since the ER doctor could not find any definite infection right now he did not start any antibiotics today. If things get worse you should come back to the ER to get checked again. documented in this encounter ED Notes * Bettina Kinsey RN - 02/05/2024 5:33 PM EDT Pt here for drainage around her j tube. States it started on . Had an exchange on Wednesday. Saw the surgeon yesterday and was told that she should not have drainage. Pt states the surgeon did not tell her a plan for her j tube drainage. documented in this encounter Miscellaneous Notes * ED Radiophone Operator Note - Lauren Vanessa RN - 02/05/2024 6:38 PM EDT Pt discharge instructions and follow up reviewed with pt and pt verbalized understanding. * Pt Handout (on AVS) - Rolo Cruz MD - 02/05/2024 6:33 PM EDT [id number] Wound Care After Surgery: Pain Surgery is done by cutting through layers of skin, fatty tissue, muscle, and sometimes bone and cartilage. Stitches or vianey are used to close all layers of the wound. The stitches on the inside will dissolve on their own in a few weeks. Any stitches or vianey used on the outside are often removed in about 7 to 14 days, depending on the location. It's normal to feel pain at the incision site. The pain decreases as the wound heals. Pain that gets worse any time after surgery can be a sign of a problem, such as: Infection Separation of wound edges Collection of blood or fluid below the skin Home care Different types of surgery require different types of care and dressing changes. It's important to follow all instructions and advice from your surgeon, as well as other members of your healthcare team. Any questions you have about wound care instructions before your discharge. Sometimes it's helpful to have a friend or family member listen with you when you get discharge instructions. Wound care If you smoke, get help to quit. Smoking interferes with wound healing. Ask your doctor about ways to quit. Keep the wound clean, as directed by your healthcare provider. Change the dressing as directed. Change the dressing sooner if it becomes wet or stained with blood or fluid from the wound. Bathe with a sponge (no shower or tub baths) for the first few days after surgery, or until there is no more drainage from the wound. Unless you received different instructions from your surgeon, you can then shower. Don't soak the area in water (no baths or swimming) until the stitches, vianey, or butterfly bandages are removed and any wound opening has dried out and healed. Changing the dressing Scrub your hands with soap and clean, running water for at least 20 seconds before and after changing the dressings. Carefully remove the dressing and tape; don?t just yank it off. If it sticks to the wound, you may need to wet it a little to remove it, unless your healthcare provider told you not to wet it. Wash your hands again before putting on a new, clean dressing. Gently clean the wound with clean water (or saline) using gauze or a clean washcloth. Don't rub it or pick at it. Don't use soap, alcohol, hydrogen peroxide, or any other cleanser on the wound. If you were told to dry the wound before putting on a new dressing, gently pat it dry. Don't rub. Put the old dressing in a plastic bag that seals at the top, and throw it out. Don't reuse it. Scrub your hands with soap and water again for 20 seconds when you are [...] gauze or pad. Wet-to-dry dressing. Wet the gauze, and squeeze out the excess water (or saline), before puttingit on. Then, cover this with a dry pad. Medicines If you were given antibiotics, take them until they are used up or your healthcare provider tells you to stop. It's important to finish the antibiotics even though you may feel better. You can take acetaminophen or ibuprofen for pain, unless you were given a different pain medicine to use. Note: If you have chronic liver or kidney disease, have ever had a stomach ulcer or gastrointestinal bleeding, or are taking blood thinner medicines, talk with your healthcare provider before using these medicines. Follow-up care Follow up with your healthcare provider, or as advised, for your next wound check or removal of your stitches, vianey, or tape. If a wound culture was done, you'll be told if the results will affect your treatment. You can call as directed for the results. If imaging tests, such as X-rays, an ultrasound, or CT scan were done, they'll be reviewed by a specialist. You'll be told of the results, especially [...] pressure, squeezing, a sense of fullness, or pain. Discomfort or pain in other upper body areas, such as the back, one or both arms, neck, jaw, or stomach Stroke 911 symptoms (spot a stroke FAST): o F: Face drooping. One side of the face is numb or droops. o A: Arm weakness. One arm feels weak or numb. o S: Speech difficulty. Speech is slurred, or the person is unable to speak. o T: Time to call 911. Even if the symptoms go away, call 911. When to get medical advice Call your healthcare provider right away if any of these occur: Increasing pain at the site of surgery Fever of 100.4 F (38 C) or higher, or as directed by your provider Redness around the wound Fluid, pus, or blood draining from the wound Vomiting, constipation, or diarrhea Symptoms get worse or new symptoms appear Last Reviewed Date: 06/21/202119996571-3297 [employer]. All rights reserved. This information is not intended as a substitute for professional medical care. Always follow your healthcare professional's instructions. documented in this encounter Plan of Treatment Upcoming Encounters Date Type Department Care Team (Late st Contact Info) Description 03/25/2024 9:20 AM EDT Office Visit [facility] [address] [phone] Kinjal Reynoso PA-C [address] [phone] Pending Results Name Type Priority Associated Diagnoses Date /Time CULTURE, WOUND, SUPERFICIAL, AEROBIC Lab STAT 02/05/2024 6:20 PM EDT Scheduled Orders Name Type Priority Associated Diagnoses Orde r Schedule CULTURE, WOUND, SUPERFICIAL, AEROBIC Lab STAT Perform Now for 1 Occurrences starting 02/05/2024 until 02/05/2024 Health Maintenance Due Date Last Done Comments [...] this encounter Medical Devices Implanted Type Area Contact Acid Plant Operator Device Identifier Shelf Expiration Date Model / Serial / Lot Port Implant W/8f Poly Cath - [id number] Implanted:Qty : 1 on 05/18/2023 by Juan Jose Connell, at OR [facility] Right: Chest CR BARD : PERIPHERAL VASCULAR [id number] 11/18/2024 [id number] / / [id number] documented as of this encounter Visit Diagnoses Diagnosis Wound drainage- Primary Open wound(s) (multiple) of unspecified site(s), without mention of complication documented in this encounter Advance Directives * [...] Advance Directives occurred with: Patient Care Teams Cafe Associate Relationship Specialty Start Date End Date Kinjal Reynoso PA-C [address] [phone] PCP - General Physician Area Representative 11/05/22 documented as of this encounter
--- OUTSIDE RECORDS SUMMARY | 2024-03-16 22:19 | External Medical Summary ---
Author Name Unknown Address Unknown Organization K1F:LABORATORY [facility] - [address] [place] [address] Laboratory Report Ordering Provider Test Date Status SCAR ESCALERA 02/03/2024 04:36:01 Final Observation Date Value Abnormality Reference (Units ) Status Lipase 02/03/2024 04:36:01 19 13-60 (U/L ) Final Performing Location LABORATORY [facility] - [address] [place] [address]
--- OUTSIDE RECORDS SUMMARY | 2024-03-16 22:19 | External Medical Summary ---
Author Name Unknown Address Unknown Organization K1F:LABORATORY [facility] - [address] [place] [address] Laboratory Report Ordering Provider Test Date Status SCAR ESCALERA 02/03/2024 04:36:01 Final Observation Date Value Abnormality Reference (Units ) Status WBC, Total 02/03/2024 04:36:01 8.68 4.00-10.80 (K/uL) Final RBC 02/03/2024 04:36:01 4.20 3.85-5.15 (M/uL) Final Hemoglobin 02/03/2024 04:36:01 13.3 12.0-15.3 (g/dL) Final HCT 02/03/2024 04:36:01 38.1 36.0-45.2 (%) Final MCV 02/03/2024 04:36:01 90.7 81.5-97.5 (fL) Final MCH 02/03/2024 04:36:01 31.7 27.0-34.0 (pg) Final MCHC 02/03/2024 04:36:01 34.9 32.0-36.0 (g/dL) Final RDW 02/03/2024 04:36:01 12.5 11.5-15.5 (%) Final Platelets 02/03/2024 04:36:01 248 140-400 (K/uL) Final MPV 02/03/2024 04:36:01 10.2 6.6-11.1 (fL) Final Nucleated erythrocytes/100 leukocytes [Ratio] in Blood by Automated count 02/03/2024 04:36:01 0 <=0 (/100 WBCs) Final Performing Location LABORATORY [facility] - [address] [place] [address]
--- OUTSIDE RECORDS SUMMARY | 2024-03-16 22:19 | External Medical Summary ---
Author Name Unknown Address Unknown Organization K1F:LABORATORY [facility] - [address] [place] [address] Laboratory Report Ordering Provider Test Date Status SCAR ESCALERA 02/03/2024 04:36:01 Final Observation Date Value Abnormality Reference (Units ) Status Lactic Acid 02/03/2024 04:36:01 1.0 0.4-2.0 (mmol/L) Final Performing Location LABORATORY [facility] - [address] [place] [address]
--- OUTSIDE RECORDS SUMMARY | 2024-03-16 22:19 | External Medical Summary | Summary of Care ---
Author Name Unknown Organization [facility] Address [address] [place] [address] Phone [phone] Care Team Providers Care Water Meter Installer Name Role Phone Kinjal Reynoso PA-C Primary Care Provider [phone] Reason for Visit * Reason Comments Abdominal Pain * Auth/Cert Specialty Diagnoses / Procedures Referred By Contdulce t Referred To Contact [facility] [address] [place] [address] Phone: [phone] Emergency Medicine [facility] [address] [place] [address] Referral ID Status Reason Start Date Expiration Date Visits Re quested Visits Authorized [id number] Encounter Details Date Type Department Care Team ([facility] Contact Info) Description 02/03/2024 3:16 AM EDT - 02/03/2024 7:42 AM EDT Emergency [facility] Emergency Department ([facility]) [address] [place] [address] Amor Miller, [address] [place] [address] Abdominal wall pain (Primary Dx); Jejunostomy tube present (HCC) Discharge Disposition: Home - Self Care [...] OPIOID OVERDOSE - SEEK IMMEDIATE MEDICAL ATTENTION. [email or web address] Each 3 03/31/2023 Active Polyethylene Glycol [...] as directed, through J-tube via feeding pump. 69241 mL 11 10/05/2023 Active Peptamen AF Oral Liquid Administer 1,000 mL over 12 hours into J tube 4 times a day. 63806 mL 11 09/30/2023 09/24/2024 Active Enteral Feeding [...] Sign Reading Time Taken Comments Blood Pressure 125/77 02/03/2024 7:40 AM EDT Pulse 65 02/03/2024 7:40 AM EDT Temperature 36 C (96.8 F) 02/03/2024 3:14 AM EDT Respiratory Rate 18 02/03/2024 7:40 AM EDT Oxygen Saturation 100% 02/03/2024 7:40 AM EDT Inhaled Oxygen Concentration - - Weight 72.6 kg (160 lb) 02/03/2024 3:11 AM EDT Height 157.5 cm (5' 2") 02/03/2024 3:11 AM EDT Body Mass Index 29.26 02/03/2024 3:11 AM EDT documented in this encounter Functional [...] this encounter Discharge Instructions * Discharge Instructions* Amor Mliler DO - 02/03/2024 7:26 AM EDT You were seen and evaluated for abdominal pain, working diagnosis at this time is inflammation along the abdominal wall at J-tube site. Please check in with your PCP and/or your provider for the J-tube. Please follow the instructions below: Tizanidine 4 mg up to twice daily as needed for abdominal discomfort, use caution taking near time of gabapentin or oxycodone/similar. Caution doing anything that might be dangerous if you become sleepy, confused etc. - monitor for worsening breathing Continue with other medications prescribed for discomfort, warm compresses/heat, as well Please read the instructions below regarding your care: Please call and/or follow up with your Primary Care Physician (PCP) in the next 7 day(s) with additional concerns. If you do not have a Primary Care Physician, you may call [facility] appointments at [phone] or [phone]. Return to the Emergency Department or seek medical attention if you notice any change or worsening of your condition or any of the following problems: Worsening pain, fever, J-tube malposition/removal, not able to use the J-tube documented in this encounter ED Notes * Amor Miller DO - 02/03/2024 3:43 AM EDT HISTORY OF PRESENT ILLNESS Anirudh DotyEstelitaLoc is a 23 year old female who presents to the ED for evaluation of Abdominal Pain. The patient was seen at 02/03/24 0343. 23-year-old female with a history of pelvic pain status post hysterectomy, jejunostomy tube, endometriosis. 23-year-old female with a history of appendectomy, hysterectomy, J-tube placement. At baseline she has a about a 4/10 abdominal pain, since her J-tube replacement, it was severe 9 or 10/10. She has baseline nausea, she does not eat foods, but does drink liquids. He she vomits at baseline as well. Stools has been more liquid than solid. No fevers chills chest pain shortness of breath UTI symptoms URI symptoms or vaginal bleeding/discharge. Pain is localized more to the right upper quadrant and right flank. Worse with movement. No injury to the area. Tube is working and placement seems appropriate to patient. At home had tried Tylenol ibuprofen gabapentin heat and oxycodone without improvement Review of recent history with 01/28 ED visit at [facility] with worsening abdominal pain and drainage around the J-tube, there was concern for dislodgement/balloon issue for which eventually an 8 [place] catheter was placed and was transferred to [place] for IR evaluation. She had this done outpatient yesterday then after discharge from the ED there The patient's allergies, past history, and medications were reviewed. PHYSICAL EXAM Initial Vitals (see all): BP 124/84 | Pulse 106 | Resp 16 | Temp 96.8 | O2 100 %, Room Air, None | Weight 72.58 kg | Height 157.5 cm | BMI 29.26 kg/m2 Initial Pain Assessment (see all): 8 (severe pain)/10, Stabbing , Sharp, location: abd ([facility] Adult Scale 0-10) . 14/X General: Tearful and alert, uncomfortable-appearing, NAD HEENT: Head: NCAT, face symmetric Eyes: sclera white, conjunctiva pink Ears: external normal Nose: external normal Throat: mucous membranes moist Neck: neck supple, full painless ROM Cardio: s1s2 and regular, no murmur Pulm: lungs clear; no increased WOB, no accessory muscle use Abdomen: Right upper quadrant tenderness around J-tube primarily along with more mild right flank tenderness without overlying erythema drainage or rash, J-tube site appears normal, non-distended, without palpable mass rebound or guarding, surgical scars over the abdomen Neuro: normal sensorium and speech, symmetric UE and LE strength Skin: warm, dry, intact with no erythema bruising or petechiae Extremities: no gross deformities, wwp x4, peripheral pulses +1 x 4 PROCEDURES AND TREATMENTS ED Orders | ED Results MEDICAL DECISION MAKING Nursing notes and vital signs were reviewed. ED Course as of 02/03/24 0841 [place] Feb 03, [address] reviewed, do not see bowel obstruction or perf, think balloon and JTUBE in place [TS] ED Course User Index [TS] Amor Miller DO In summary, this is a 23-year-old female presents for right upper quadrant pain. Differential diagnosis includes pain from tube exchange/abdominal wall discomfort, tube malfunction/displacement or bowel perforation, intra-abdominal abscess/infection, cholecystitis, pancreatitis, PUD, among others. After history physical labs and imaging most consistent with abdominal wall inflammation/discomfort there. Will add tizanidine to what she has at home. Follow-up with IR/surgery and return for worsening. Do not think right upper quadrant ultrasound indicated at this time, I did my own Point of care without obvious gallstones and no liver/pancreas abnormalities on blood work Amount and/or Complexity of Data Reviewed Labs: ordered. Radiology: ordered. Risk Prescription drug management. Clinical Impressions Abdominal wall pain Jejunostomy tube present (HCC) Disposition Discharged. The patient's condition at disposition was: stable. Discharge Medications Disp Refills Start End tiZANidine HCl 4 MG Oral Tablet (Zanaflex) 10 Tablet 0 02/03/2024 -- Sig - Route: Take 1 Tablet by mouth 2 times a day as needed for Muscle spasms for up to 10 doses. -Oral Class: ePrescribing Renewals Renewal requests to authorizing provider (Amor Miller DO) <b>prohibited</b> Amor Miller This was discussed with patient and significant other * Ad Cortez RN - 02/03/2024 3:13 AM EDT Pt states that she had her J tube replaced today and is having increased pain. Pt also reports nausea and vomiting. Has taken tylenol, motrin, gabapentin, and oxy earlier today. documented in this encounter Miscellaneous Notes * ED Pipe Wrapping Machine Operator Note - Felicita Arango RN - 02/03/2024 7:41 AM EDT Pt given discharge instructions per physicians order. Made aware of prescription sent to pharmacy of choice. All questions answered, pt verbalized understanding. Pt ambulated out of this department with steady gait. * ED Pipe Wrapping Machine Operator Note - Kenny Lovell RN - 02/03/2024 7:39 AM EDT Chest port was de-accessed at this time. Heparin flush administered prior to taking out port needle. Tolerated well. Insertion site covered with band aid. * ED Pipe Wrapping Machine Operator Note - Ad Cortez RN - 02/03/2024 7:27 AM EDT Report given to LUPIS Mims and LUPIS Cox. documented in this encounter Plan of Treatment Upcoming Encounters Date Type Department Care Team (Late st Contact Info) Description 03/25/2024 9:20 AM EDT Office Visit [facility] [address] [id number] Kinjal Reynoso PA-C [address] [phone] Pending Results Name Type Priority Associated Diagnoses Date /Time CULTURE, URINE, QUANTITATIVE Lab STAT 02/03/2024 5:33 AM EDT Scheduled Orders Name Type Priority Associated Diagnoses Orde r Schedule CULTURE, URINE, QUANTITATIVE Lab STAT One Time for 1 Occurrences starting 02/03/2024 until 02/03/2024 Health Maintenance Due Date Last Done Comments [...] this encounter Medical Devices Implanted Type Area Police Radio Dispatcher Device Identifier Shelf Expiration Date Model / Serial / Lot Port Implant W/8f Poly Cath - [id number] Implanted:Qty : 1 on 05/18/2023 by Juan Jose Connell DO at OR [facility] Right: Chest CR BARD : PERIPHERAL VASCULAR [id number] 11/18/2024 [id number] / / [id number] documented as of this encounter Procedures Procedure Name Priority Date/Time Associated Diagnosis Comments URINALYSIS, REFLEX TO CULTURE STAT 02/03/2024 5:33 AM EDT URINALYSIS, REFLEX TO CULTURE (CUP ONLY) STAT 02/03/2024 5:33 AM EDT URINALYSIS, REFLEX TO CULTURE (NOT FOR NEUTROPENIC PATIENTS) STAT 02/03/2024 5:[address] ABD/PELVIS W IV CONTRAST - WO ORAL CONTRAST STAT 02/03/2024 5:14 AM EDT DIFFERENTIAL, AUTOMATED STAT 02/03/2024 4:36 AM EDT COMPREHENSIVE METABOLIC PANEL STAT 02/03/2024 4:36 AM EDT CBC STAT 02/03/2024 4:36 AM EDT LIPASE STAT 02/03/2024 4:36 AM EDT LACTATE STAT 02/03/2024 4:36 AM EDT CBC STAT 02/03/2024 4:36 AM EDT documented in this encounter Results * (ABNORMAL) URINALYSIS, REFLEX TO CULTURE (02/03/2024 5:33 AM EDT) Color, Urine Yellow Light Yellow, Yellow, Dark Yellow 02/03/2024 5:58 AM EDT LAB[facility]ATORY [facility] Clarity, Urine Clear Clear 02/03/2024 5:58 AM EDT LAB[facility] Glucose, Urine Negative Negative mg/dL 02/03/2024 5:58 AM EDT LAB[facility]ORY [facility] Bilirubin, Urine Negative Negative 02/03/2024 5:58 AM EDT LAB[facility] Ketone, Urine Negative Negative mg/dL 02/03/2024 5:58 AM EDT LAB[facility]ORY [facility] Specific [place], Urine 1.043(H) 1.003 - 1.030 02/03/2024 5:58 AM EDT LAB[facility] Blood, Urine Negative Negative 02/03/2024 5:58 AM EDT LAB[facility]ORY [facility] pH, Urine 6.0 5.0 - 7.5 Units 02/03/2024 5:58 AM EDT LAB[facility] Protein, Urine Negative Negative mg/dL 02/03/2024 5:58 AM EDT LAB[facility]ATORY [facility] Urobilinogen, Urine 0.2 0.2, 1.0 mg/dL 02/03/2024 5:58 AM EDT LAB[facility] Nitrite, Urine Negative Negative 02/03/2024 5:58 AM EDT LAB[facility] Esterase, Urine Negative Negative 02/03/2024 5:58 AM EDT LAB[facility] RBC, Urine 0-2 0 - 2 /HPF 02/03/2024 5:58 AM EDT LAB[facility] WBC, Urine 0-2 0 - 2 /HPF 02/03/2024 5:58 AM EDT LAB[facility]ATORY [facility] Bacteria, Urine 151-200(A) 0 - 25 /HPF 02/03/2024 5:58 AM EDT LABORATORY [facility] Squamous Epithelial Cells, Urine Many(A) None /HPF 02/03/2024 5:58 AM EDT LABORATORY GL Mucus, Urine Many(A) None /HPF 02/03/2024 5:58 AM EDT LABORATORY [facility] Culture, Urine 02/03/2024 5:58 AM EDT LABORATORY [facility] Comment:Quantitative urine c ulture to be performed Urine Urine specimen / Unknown Non-blood Collection / Unknown 02/03/2024 5:33 AM EDT 02/03/2024 5:39 AM EDT Amor Miller LAB URINE THOM HOLLOWAY Performing Organization Address [facility] Co de Phone Number LABORATORY [address] [address] * URINALYSIS, REFLEX TO CULTURE (CUP ONLY) (02/03/2024 5:33 AM EDT) Urinalysis, Reflex to Culture Specimen Specimen collected and received 02/03/2024 7:01 AM EDT LABORATORY [facility] Urine Urine specimen / Unknown Non-blood Collection / Unknown 02/03/2024 5:33 AM EDT 02/03/2024 5:39 AM EDT Amor Miller LAB URINE THOM [facility]LLOWAY Performing Organization Address [facility] de Phone Number LABORATORY [address] [address] * CT ABD/PELVIS W IV CONTRAST - WO ORAL CONTRAST (02/03/2024 5:14 AM EDT) Anatomical Region Laterality Modality Body, Abdomen, Pelvis Computed T omography 02/03/2024 5:00 AM EDT Impressions 02/03/2024 7:07 AM EDT IMPRESSION: 1. Percutaneous jejunostomy tube appears in place. No significant abdominopelvic free air identified. 2. Minimal fat stranding in the superficial soft tissues along the track of the percutaneous jejunostomy tube, slightly increased compared to prior exam, correlate with any recent intervention. No abscess identified. 3. Minimal free fluid in the dependent portion of the pelvis. THIS DOCUMENT HAS BEEN ELECTRONICALLY SIGNED BY DANIELLA GANNON MD Narrative 02/03/2024 7:07 AM EDT PROCEDURE INFORMATION: Exam: CT Abdomen And Pelvis With Contrast Exam date and time: 02/03/2024 5:00 AM Age: 23 years old Clinical indication: Abdominal pain; Prior surgery; Surgery date: Post-operative (0-2 days); Surgery type: J tube placement; Additional info: Eval severe ruq to R flank pain - history of endometriosis, hysterectomy, j-tube placement with recent dislodged and replacement in the right upper quadrant - evaluate perforation, obstruction, or other inflammation/infection TECHNIQUE: Imaging protocol: Computed tomography of the [...] ml; Contrast route: INTRAVENOUS (IV); COMPARISON: CT ABDOMEN WO IV/ORAL CONTRAST 01/29/2024 6:45 AM FINDINGS: Liver: Area of hypoattenuation along the anterior margin of the liver adjacent to the falciform ligament consistent with focal fatty infiltration. The liver is normal in size and contour. Gallbladder and biliary ducts: Unremarkable. Pancreas: The pancreas appears normal. Spleen: The spleen appears normal. Adrenal glands: The adrenals appear normal. Kidneys and ureters: The kidneys enhance symmetrically and empty into non-dilated ureters. Stomach and bowel: The stomach appears unremarkable. Percutaneous jejunostomy tube noted. The small bowel loops are not abnormally dilated. The large bowel loops are not abnormally dilated. Oral contrast is noted within the right colon. Appendix: No signs of appendicitis. Intraperitoneal space: Minimal free fluid in the dependent portion of the pelvis. Vasculature: The aorta is nonaneurysmal. The IVC appears normal. Lymph nodes: There are no enlarged lymph nodes. Urinary bladder: The bladder is distended and demonstrates no focal contour abnormality. Reproductive: The uterus is surgically absent. Bones/joints: Unremarkable. Soft tissues: Minimal fat stranding in the superficial soft tissues along the track of the percutaneous jejunostomy tube. No abscess identified. Procedure Note Daniella Gannon MD - 02/03/2024 PROCEDURE INFORMATION: Exam: CT Abdomen And Pelvis With Contrast Exam date and time: 02/03/2024 5:00 AM Age: 23 years old Clinical indication: Abdominal pain; Prior surgery; Surgery date: Post-operative (0-2 days); Surgery type: J tube placement; Additionalinfo: Eval severe ruq to R flank pain - history of endometriosis, hysterectomy, j-tube placement with recent dislodged and replacement in the right upper quadrant - evaluate perforation, obstruction, or otherinflammation/infection TECHNIQUE: Imaging protocol: Computed tomography of the abdomen and pelvis withcontrast. Radiation optimization: All CT scans at this facility use at least one ofthese dose optimization techniques: automated exposure control; mA and/or kV adjustment per patient size (includes targeted exams where dose is matchedto clinical indication); or iterative reconstruction. Contrast material: ISOVUE 370; Contrast volume: 80 ml; Contrast route: INTRAVENOUS (IV); COMPARISON: CT ABDOMEN WO IV/ORAL CONTRAST 01/29/2024 6:45 AM FINDINGS: Liver: Area of hypoattenuation along the anterior margin of the liveradjacent to the falciform ligament consistent with focal fatty infiltration. Theliver is normal in size and contour. Gallbladder and biliary ducts: Unremarkable. Pancreas: The pancreas appears normal. Spleen: The spleen appears normal. Adrenal glands: The adrenals appear normal. Kidneys and ureters: The kidneys enhance symmetrically and empty into non-dilated ureters. Stomach and bowel: The stomach appears unremarkable. Percutaneousjejunostomy tube noted. The small bowel loops are not abnormally dilated. The largebowel loops are not abnormally dilated. Oral contrast is noted within the right colon. Appendix: No signs of appendicitis. Intraperitoneal space: Minimal free fluid in the dependent portion of the pelvis. Vasculature: The aorta is nonaneurysmal. The IVC appears normal. Lymph nodes: There are no enlarged lymph nodes. Urinary bladder: The bladder is distended and demonstrates no focalcontour abnormality. Reproductive: The uterus is surgically absent. Bones/joints: Unremarkable. Soft tissues: Minimal fat stranding in the superficial soft tissues alongthe track of the percutaneous jejunostomy tube. No abscess identified. IMPRESSION IMPRESSION: 1. Percutaneous jejunostomy tube appears in place. No significant abdominopelvic free air identified. 2. Minimal fat stranding in the superficial soft tissues along the trackof the percutaneous jejunostomy tube, slightly increased compared to priorexam, correlate with any recent intervention. No abscess identified. 3. Minimal free fluid in the dependent portion of the pelvis. THIS DOCUMENT HAS BEEN ELECTRONICALLY SIGNED BY DANIELLA GANNON MD Amor Miller DO RAD CT * DIFFERENTIAL, AUTOMATED (02/03/2024 4:36 AM EDT) WBC 8.68 4.00 - 10.80 K/uL 02/03/2024 4:40 AM EDT LAB[facility]ATORY [facility] Neutrophils % 64.6 40.0 - 75.0 % 02/03/2024 4:40 AM EDT LAB[facility]ATORY [facility] Lymphocytes % 27.6 18.0 - 42.0 % 02/03/2024 4:40 AM EDT LABORATORY GL Monocytes % 6.6 1.0 - 11.0 % 02/03/2024 4:40 AM EDT LABORATORY GL Eosinophils % 0.8 0.0 - 6.0 % 02/03/2024 4:40 AM EDT LABORATORY GL Basophils % 0.2 0.0 - 2.0 % 02/03/2024 4:40 AM EDT LABORATORY GL Immature Granulocytes % 0.2 0.0 - 2.0 % 02/03/2024 4:40 AM EDT LABORATORY GL Absolute Neutrophils 5.60 1.80 - 7.70 K/uL 02/03/2024 4:40 AM EDT LABORATORY GL Absolute Lymphocytes 2.40 1.00 - 4.80 K/ul 02/03/2024 4:40 AM EDT LABORATORY GL Absolute Monocytes 0.57 0.00 - 1.10 K/uL 02/03/2024 4:40 AM EDT LABORATORY GL Absolute Eosinophils 0.07 0.00 - 0.70 K/uL 02/03/2024 4:40 AM EDT LABORATORY GL Absolute Basophils 0.02 0.00 - 0.20 K/uL 02/03/2024 4:40 AM EDT LABORATORY GL Absolute Immature Granulocytes 0.02 0.00 - 0.20 K/uL 02/03/2024 4:40 AM EDT LABORATORY GL Blood Venous blood specimen / Unknown Venipuncture / Unknown 02/03/2024 4:36 AM EDT 02/03/2024 4:38 AM EDT Amor Miller LAB BLOOD [facility] Performing Organization Address [facility] Co de Phone Number LABORATORY [facility] [address] [place] [address] * CBC (02/03/2024 4:36 AM EDT) [facility] WBC 8.68 4.00 - 10.80 K/uL 02/03/2024 4:40 AM EDT LABORATORY [facility] RBC 4.20 3.85 - 5.15 M/uL 02/03/2024 4:40 AM EDT LABORATORY [facility] HGB 13.3 12.0 - 15.3 g/dL 02/03/2024 4:40 AM EDT LABORATORY [facility] HCT 38.1 36.0 - 45.2 % 02/03/2024 4:40 AM EDT LABORATORY [facility] MCV 90.7 81.5 - 97.5 fL 02/03/2024 4:40 AM EDT LABORATORY [facility] MCH 31.7 27.0 - 34.0 pg 02/03/2024 4:40 AM EDT LABORATORY [facility] MCHC 34.9 32.0 - 36.0 g/dL 02/03/2024 4:40 AM EDT LABORATORY [facility] RDW 12.5 11.5 - 15.5 % 02/03/2024 4:40 AM EDT LABORATORY [facility] PLT 248 140 - 400 K/uL 02/03/2024 4:40 AM EDT LABORATORY [facility] MPV 10.2 6.6 - 11.1 fL 02/03/2024 4:40 AM EDT LABORATORY [facility] nRBCs 0 <=0 /100 WBCs 02/03/2024 4:40 AM EDT LABORATORY [facility] Blood Venous blood specimen / Unknown Venipuncture / Unknown 02/03/2024 4:36 AM EDT 02/03/2024 4:38 AM EDT Amor Miller [facility] BLOOD THOM HOLLOWAY Performing Organization Address City/State/[facility] de Phone Number LABORATORY [address] [address] * LACTATE (02/03/2024 4:36 AM EDT) Lactate 1.0 0.4 - 2.0 mmol/L 02/03/2024 4:56 AM EDT LABORATORY [facility] Blood Venous blood specimen / Unknown Venipuncture / Unknown 02/03/2024 4:36 AM EDT 02/03/2024 4:38 AM EDT Amor Miller LAB BLOOD [facility]LLOW[facility] Performing Organization Address [facility] de Phone Number LABORATORY [address] [address] * LIPASE (02/03/2024 4:36 AM EDT) Lipase 19 13 - 60 U/L 02/03/2024 5:00 AM EDT LABORATORY [facility] Blood Venous blood specimen / Unknown Venipuncture / Unknown 02/03/2024 4:36 AM EDT 02/03/2024 4:38 AM EDT Amor Miller LAB BLOOD ORDJerry HOLLOWAY Performing Organization Address [facility] de Phone Number LABORATORY [address] [address] * (ABNORMAL) COMPREHENSIVE METABOLIC PANEL (02/03/2024 4:36 AM EDT) BUN 8 6 - 20 mg/dL 02/03/2024 5:00 AM EDT LABORATORY GL Creatinine 0.6 0.5 - 1.0 mg/dL 02/03/2024 5:00 AM EDT LAB[facility]ATORY [facility] Estimated Glomerular Filtration Rate >90 >=60 mL/min 02/03/2024 5:00 AM EDT LAB[facility] Comment:eGFR is calculated b ased on the CKD-EPI 2020 equation. Sodium 142 135 - 146 mmol/L 02/03/2024 5:00 AM EDT LAB[facility]ATORY [facility] Potassium 3.9 3.5 - 5.1 mmol/L 02/03/2024 5:00 AM EDT LAB[facility]ATORY [facility] Chloride 107 98 - 107 mmol/L 02/03/2024 5:00 AM EDT LAB[facility]ATORY [facility] CO2 25 22 - 32 mmol/L 02/03/2024 5:00 AM EDT LAB[facility]ATORY [facility] Anion Gap 10 7 - 15 mmol/L 02/03/2024 5:00 AM EDT LAB[facility]ATORY [facility] Glucose 103 70 - 120 mg/dL 02/03/2024 5:00 AM EDT LAB[facility]ORY [facility] Albumin 4.3 3.8 - 5.0 g/dL 02/03/2024 5:00 AM EDT LAB[facility]ORY [facility] AST 16 10 - 35 U/L 02/03/2024 5:00 AM EDT LAB[facility] Comment:Results may be false ly elevated due to hemolysis. Alkaline Phosphatase 77 35 - 130 U/L 02/03/2024 5:00 AM EDT LAB[facility]ATORY [facility] Bilirubin, Total <0.2 <=1.2 mg/dL 02/03/2024 5:00 AM EDT LAB[facility]ORY [facility] Calcium 9.4 8.4 - 10.2 mg/dL 02/03/2024 5:00 AM EDT LAB[facility]ORY [facility] Protein 7.0 6.0 - 8.3 g/dL 02/03/2024 5:00 AM EDT LAB[facility]ATORY [facility] ALT 8(L) 10 - 35 U/L 02/03/2024 5:00 AM EDT LAB[facility] Blood Venous blood specimen / Unknown Venipuncture / Unknown 02/03/2024 4:36 AM EDT 02/03/2024 4:38 AM EDT Amor Miller DO LAB BLOOD THOM HOLLOWAY LAB[facility]AT[facility] [address] [place] [address] documented in this encounter Visit Diagnoses Diagnosis Abdominal wall pain- Primary Abdominal pain, unspecified site Jejunostomy tube present (HCC) Status of other artificial opening of gastrointestinal tract documented in this encounter Administered Medications Inactive Administered Medications - up to 3 most recent administrations Medication Order MAR Action Action Date Dose Rate Site Iopamidol (Isovue 370) inj 80 mL 80 mL, Intravenous, ONCE, On [place] 02/03/24 at 0545, For 1 dose, Radiology Medication Routing (Non-IR) Given 02/03/2024 5:45 AM EDT 80 mL Morphine Sulfate (PF) inj 4 mg 4 mg, Intravenous, ONCE, On [place] 02/03/24 at 0500, For 1 dose Given 02/03/2024 4:41 AM EDT 4 mg Morphine Sulfate (PF) inj 4 mg 4 mg, Intravenous, ONCE, On [place] 02/03/24 at 0700, For 1 dose Given 02/03/2024 6:34 AM EDT 4 mg NSS 0.9% 500 mL bolus infusion IV Piggyback, Wide open, This infusion may be completed in less than 1 hour, since it will be a wide open rate, ONCE, 1 dose, On [place] 02/03/24 at 0615 KVO 02/03/2024 6:47 AM EDT 5 mL/hr New Bag 02/03/2024 6:17 AM EDT 500 mL 1000 mL/hr ondansetron (Zofran) inj 4 mg 4 mg, IV Push, ONCE, On [place] 02/03/24 at 0515, For 1 dose Given 02/03/2024 4:41 AM EDT 4 mg documented in this encounter Active and Recently Administered Medications Times are shown in EDT. Scheduled Medication Order 02/01/2024 02/02/2024 02/03/2024 Iopamidol (Isovue 370) inj 80 mL (COMPLETED) 80 mL, Intravenous, ONCE, On [place] 02/03/24 at 0545, For 1 dose, Radiology Medication Routing (Non-IR) 0545 (Given - Provid er: Chris Avalos, RT (R)) Morphine Sulfate (PF) inj 4 mg (COMPLETED) 4 mg, Intravenous, ONCE, On [place] 02/03/24 at 0500, For 1 dose 0441 (Given - Provid er: Ad Cortez, LUPIS) Morphine Sulfate (PF) inj 4 mg (COMPLETED) 4 mg, Intravenous, ONCE, On [place] 02/03/24 at 0700, For 1 dose 0634 (Given - Provid er: Felicita Byrd RN) NSS 0.9% 500 mL bolus infusion (COMPLETED) IV Piggyback, Wide open, This infusion may be completed in less than 1 hour, since it will be a wide open rate, ONCE, 1 dose, On [place] 02/03/24 at 0615 0617 (New Bag - Prov ider: Felicita Byrd, LUPIS)0647 (KVO - Provider: Kenny Lovell, RN)0724 (Stopped - Provider: Kenny Lovell, RN) ondansetron (Zofran) inj 4 mg (COMPLETED) 4 mg, IV Push, ONCE, On [place] 02/03/24 at 0515, For 1 dose 0441 (Given - Provid er: Ad Cortez RN) documented in this encounter Advance Directives [...] Advance Directives occurred with: Patient Care Teams Water Meter Installer Relationship Specialty Start Date End Date Kinjal Reynoso PA-C [address] [phone] PCP - General Physician Tower Supervisor 11/05/22 documented as of this encounter
--- OUTSIDE RECORDS SUMMARY | 2024-03-16 22:19 | External Medical Summary ---
Author Name Unknown Address Unknown Organization K1F:LABORATORY [facility] - [address] [facility] [address] Laboratory Report Ordering Provider Test Date Status SCAR ESCALERA 02/03/2024 05:33:25 Final Observation Date Value Abnormality Reference (Units ) Status Color of Urine by Auto 02/03/2024 05:33:25 Yellow Light Yellow, Yellow, Dark Yellow Final Clarity, Urine 02/03/2024 05:33:25 Clear Clear Final Glucose [Mass/volume] in Urine by Automated test strip 02/03/2024 05:33:25 Negative Negative (mg/dL) Final Bilirubin.total [Presence] in Urine by Automated test strip 02/03/2024 05:33:25 Negative Negative Final Ketones [Mass/volume] in Urine by Automated test strip 02/03/2024 05:33:25 Negative Negative (mg/dL) Final Specific gravity, Urine 02/03/2024 05:33:25 1.043 Above high normal 1.003-1.030 Final Hemoglobin [Presence] in Urine by Automated test strip 02/03/2024 05:33:25 Negative Negative Final pH, Urine 02/03/2024 05:33:25 6.0 5.0-7.5 (Units) Final Protein [Mass/volume] in Urine by Automated test strip 02/03/2024 05:33:25 Negative Negative (mg/dL) Final Urobilinogen [Mass/volume] in Urine by Automated test strip 02/03/2024 05:33:25 0.2 0.2, 1.0 (mg/dL) Final Nitrite [Presence] in Urine by Automated test strip 02/03/2024 05:33:25 Negative Negative Final Leukocyte esterase [Presence] in Urine by Automated test strip 02/03/2024 05:33:25 Negative Negative Final RBC, Urine 02/03/2024 05:33:25 0-2 0-2 (/HPF) Final WBC, Urine 02/03/2024 05:33:25 0-2 0-2 (/HPF) Final Bacteria [#/area] in Urine sediment by Microscopy high power field 02/03/2024 05:33:25 151-200 Abnormal 0-25 (/HPF) Final Epithelial cells.squamous [#/area] in Urine sediment by Microscopy high power field 02/03/2024 05:33:25 Many Abnormal None (/HPF) Final Mucus, Urine 02/03/2024 05:33:25 Many Abnormal None (/HPF) Final CULTURE, URINE - [facility] 02/03/2024 05:33:25 Final Quantitative urine culture t o be performed Performing Location LABORATORY [facility] - [facility] [address] [place] [address]
--- OUTSIDE RECORDS SUMMARY | 2024-03-16 22:20 | External Medical Summary ---
Author Name Unknown Address Unknown Organization K1F:LABORATORY [facility] - [address] [facility] [address] Laboratory Report Ordering Provider Test Date Status KASANDRA DELGADO 01/29/2024 02:56:17 Final hCG can serve as a screening [...] +Beta subunit [Units/volume] in Serum or Plasma 01/29/2024 02:56:17 <0.3 <=1.0 (mIU/mL) Final Performing Location LABORATORY [facility] - [address] [facility] [place] [facility] [address]
--- OUTSIDE RECORDS SUMMARY | 2024-03-16 22:20 | External Medical Summary ---
Author Name Unknown Address Unknown Organization K1F:LABORATORY [facility] - [address] [place] [address] Laboratory Report Ordering Provider Test Date Status KASANDRA DELGADO 01/29/2024 02:56:17 Final Observation Date Value Abnormality Reference (Units ) Status WBC, Total 01/29/2024 02:56:17 5.85 4.00-10.80 (K/uL) Final RBC 01/29/2024 02:56:17 3.99 3.85-5.15 (M/uL) Final Hemoglobin 01/29/2024 02:56:17 12.3 12.0-15.3 (g/dL) Final HCT 01/29/2024 02:56:17 37.4 36.0-45.2 (%) Final MCV 01/29/2024 02:56:17 93.7 81.5-97.5 (fL) Final MCH 01/29/2024 02:56:17 30.8 27.0-34.0 (pg) Final MCHC 01/29/2024 02:56:17 32.9 32.0-36.0 (g/dL) Final RDW 01/29/2024 02:56:17 12.8 11.5-15.5 (%) Final Platelets 01/29/2024 02:56:17 253 140-400 (K/uL) Final MPV 01/29/2024 02:56:17 10.0 6.6-11.1 (fL) Final Nucleated erythrocytes/100 leukocytes [Ratio] in Blood by Automated count 01/29/2024 02:56:17 0 <=0 (/100 WBCs) Final Performing Location LABORATORY [facility] - [address] [facility] [address] [place] [address]
--- OUTSIDE RECORDS SUMMARY | 2024-03-16 22:20 | External Medical Summary ---
Author Name Unknown Address Unknown Organization K1F:LABORATORY [facility] - [address] [facility] [place] [address] Laboratory Report Ordering Provider Test Date Status KASANDRA DELGADO 01/29/2024 02:56:17 Final Observation Date Value Abnormality Reference (Units ) Status BUN 01/29/2024 02:56:17 10 6-20 (mg/dL) Final Creatinine 01/29/2024 02:56:17 0.6 0.5-1.0 (mg/dL) Final Glomerular filtration rate/1.73 sq M.predicted [Volume Rate/Area] in Serum, Plasma or Blood by Creatinine-based formula (CKD-EPI) 01/29/2024 02:56:17 >90 >=60 (mL/min) Final eGFR is calculated based on the CKD-EPI 2020 equation. Sodium 01/29/2024 02:56:17 140 135-146 (m mol/L) Final Potassium 01/29/2024 02:56:17 4.0 3.5-5.1 (m mol/L) Final Cl 01/29/2024 02:56:17 107 98-107 (mm ol/L) Final CO2 01/29/2024 02:56:17 21 Below low normal 22- 32 (mmol/L) Final Anion gap 01/29/2024 02:56:17 12 7-15 (mmol /L) Final Glucose 01/29/2024 02:56:17 99 70-120 (mg /dL) Final Albumin 01/29/2024 02:56:17 4.1 3.8-5.0 (g /dL) Final AST (Aspartate aminotransferase) 01/29/2024 02:56:17 15 10-35 (U/L) Fin al Alk Phos 01/29/2024 02:56:17 85 35-130 (U/ L) Final Bilirubin, Total 01/29/2024 02:56:17 <0.2 <=1 .2 (mg/dL) Final Calcium 01/29/2024 02:56:17 9.3 8.4-10.2 ( mg/dL) Final Protein 01/29/2024 02:56:17 7.1 6.0-8.3 (g /dL) Final ALT (Alanine aminotransferase) 01/29/2024 02:56:17 12 10-35 (U/L) Spencer esteves Performing Location LABORATORY [facility] - [facility] [place] [address]
--- OUTSIDE RECORDS SUMMARY | 2024-03-16 22:20 | External Medical Summary ---
Author Name Unknown Address Unknown Organization K1F:LABORATORY [facility] - [address] [place] [address] Laboratory Report Ordering Provider Test Date Status SANDYKASANDRA 01/29/2024 02:56:17 Final Less than 0.5 ng/mL: Low ris [...] [Mass/volume] in Serum or Plasma by Immunoassay 01/29/2024 02:56:17 <0.06 <0.10 (ng/mL) Final Performing Location LABORATORY [facility] - [address] [facility] [address] [place] [address]
--- OUTSIDE RECORDS SUMMARY | 2024-03-16 22:20 | External Medical Summary ---
Author Name Unknown Address Unknown Organization K1F:LABORATORY [facility] - [address] [place] [address] Laboratory Report Ordering Provider Test Date Status SANDYKASANDRA 01/29/2024 02:56:17 Final Observation Date Value Abnormality Reference (Units ) Status CRP, low-sensitivity 01/29/2024 02:56:17 <3 <=5 (mg/L) Final Performing Location LABORATORY [facility] - [address] [place] [address]
--- OUTSIDE RECORDS SUMMARY | 2024-03-16 22:20 | External Medical Summary | Summary of Care ---
Author Name Unknown Organization [facility] Address [address] [place] [address] Phone [phone] Care Team Providers Care Electrogalvanizing Machine Operator Name Role Phone Kinjal Reynoso PA-C Primary Care Provider [phone] Reason for Visit * Reason Onset Date Comments Hospital Follow-Up 01/12/2024 [facility] Call Encounter Details Date Type Department Care Team (Late st Contact Info) Description 01/12/2024 Telephone [facility] [address] [place] [address] Marlee Chase, LUPIS Hospital Follow-Up ([facility] Call) Allergies Active Allergy Reactions Criticality Noted Date [...] as of this encounter (statuses as of 01/12/2024) Medications Medication Sig Dispensed Refills Start Date End Date Status Naloxone HCl 4 MG/0.1ML Nasal Liquid (Narcan Nasal)Indications:Ch ronic pelvic pain in female,MEDICATION USE AGREEMENT,Chronic abdominal pain ADMINISTER 1 SPRAY INTO 1 NOSTRIL FOR SUSPECTED OPIOID OVERDOSE - SEEK IMMEDIATE MEDICAL ATTENTION. [email or web address] 2 Each 3 03/31/2023 Active Polyethylene Glycol [...] as directed, through J-tube via feeding pump. 26923 mL 10/05/2023 Active Peptamen AF Oral Liquid Administer 1,000 mL over 12 hours into J tube 4 times a day. 49968 mL 11 09/30/2023 Active Enteral Feeding Piston Syringe Use as directed. 30 Each 11 09/30/2023 Active Gabapentin 100 MG Oral Capsule (Neurontin)Indicatio [...] last 14 days. 28 Tablet 01/10/2024 Active Acetaminophen 160 MG/5ML Oral Suspension (Tylenol)Indications :Chronic pelvic pain in female,Gastroparesis ,Malfunction of jejunostomy tube (HCC) Administer 31.2 mL into J tube every 8 hours as needed for Pain, Moderate. 472 mL 5 01/11/2024 Active documented as of this encounter (statuses as of 01/12/2024) Active Problems Problem Noted Date Diagnosed Date [...] as of this encounter (statuses as of 01/12/2024) Resolved Problems Problem Noted Date Diagnosed Date [...] as of this encounter (statuses as of 01/12/2024) Immunizations Name Administration Dates Next Due DTaP [...] encounter Miscellaneous Notes * Telephone Encounter - Marlee Chase RN - 01/12/2024 9:16 AM EDT Transitions of Care Note Reason for Referral:Recent Admission Phone visit for follow up: [facility]EL[facility] Admitted to: [facility], Date: 01/01/2024 Discharged to: [facility], Date: 01/05/2024 Diagnosis driving hospitalization: RLQ Pain MEL[facility] call not indicated per protocol due to patient transferred to [facility]. Marlee Chase RN documented in this encounter Plan of Treatment Upcoming Encounters Date Type Department Care Team (Late st Contact Info) Description 01/17/2024 10:40 AM EDT Office Visit [facility] [address] [phone] Kinjal Reynoso PA-C [address] [phone] 03/25/2024 9:20 AM EDT Office Visit [facility] [place] [address] [phone] Kinjal Reynoso PA-C [address] [place] [address] Health Maintenance Due Date Last Done Comments [...] this encounter Medical Devices Implanted Type Area Carriage Operator Device Identifier Shelf Expiration Date Model / Serial / Lot Port Implant W/8f Poly Cath - [id number] Implanted:Qty : 1 on 05/18/2023 by Juan Jose Connell, at OR [facility] Right: Chest CR BARD : PERIPHERAL VASCULAR [id number] 11/18/2024 [id number] / / [id number] documented as of this encounter Advance Directives [...] Advance Directives occurred with: Patient Care Teams Electrogalvanizing Machine Operator Relationship Specialty Start Date End Date Kinjal Reynoso PA-C [address] [phone] PCP - General Physician Patternmaker Helper 11/05/22 documented as of this encounter
--- OUTSIDE RECORDS SUMMARY | 2024-03-16 22:20 | External Medical Summary ---
Author Name Unknown Address Unknown Organization K1F:LABORATORY GL - [address] [place] [address] Laboratory Report Ordering Provider Test Date Status KASANDRA DELGADO 01/29/2024 02:56:17 Final Observation Date Value Abnormality Reference (Units ) Status SYNC LEUKOCYTES IN BLOOD BY AUTOMATED COUNT 01/29/2024 02:56:17 5.85 4.00-10.80 (K/uL) Final Segs 01/29/2024 02:56:17 53.6 40.0-75.0 (%) Final Lymphs % 01/29/2024 02:56:17 37.8 18.0-42.0 (%) Final Monos 01/29/2024 02:56:17 6.8 1.0-11.0 (%) Final Eosinophils 01/29/2024 02:56:17 1.2 0.0-6.0 (%) Final Basos 01/29/2024 02:56:17 0.3 0.0-2.0 (%) Final Immature Granulocyte, Percent 01/29/2024 02:56:17 0.3 0.0-2.0 (%) Final Absolute Segs 01/29/2024 02:56:17 3.13 1.80-7.70 (K/uL) Final Lymphs, absolute 01/29/2024 02:56:17 2.21 1.00-4.80 (K/ul) Final Monos, Abs 01/29/2024 02:56:17 0.40 0.00-1.10 (K/uL) Final Eos, Abs 01/29/2024 02:56:17 0.07 0.00-0.70 (K/uL) Final Basos, Abs 01/29/2024 02:56:17 0.02 0.00-0.20 (K/uL) Final Immature Granulocytes, Number 01/29/2024 02:56:17 0.02 0.00-0.20 (K/uL) Final Performing Location LABORATORY [facility] - [address] [place] [address]
--- OUTSIDE RECORDS SUMMARY | 2024-03-16 22:20 | External Medical Summary | Summary of Care ---
Author Name Unknown Organization [facility] Address [address] [place] [address] Phone [phone] Care Team Providers Care Infrastructure Tech Name Role Phone Edgardo Kinjal Britt PA-C Primary Care Provider [phone] Reason for Referral * Precert (Within 10 days (routine)) - Pending Review Specialty Diagnoses / Procedures Referred By Cramen kirby Referred To Contact Radiology Diagnoses Dislodged jejunostomy tube Procedures IR GASTROINTESTINAL OSTOMY Ignacio Serra DO [address] [place] [address] Referral ID Status Reason Start Date Expiration Date V isits Requested Visits Authorized [id number] Pending Review 02/05/2024 999 999 Reason for Visit * Reason Comments transfer of records J tube placement * Auth/Cert Specialty Diagnoses / Procedures Referred By Carmen kirby Referred To Contact Diagnoses dislodged j tube [facility] [address] [place] [address] Phone: [phone] Emergency Medicine [facility] [address] [place] [address] Referral ID Status Reason Start Date Expiration Date Visits Re quested Visits Authorized [id number] 999 Encounter Details Date Type Department Care Team ([facility] Contact Info) Description 01/29/2024 9:20 AM EDT - 01/29/2024 1:58 PM EDT Emergency [facility] Emergency Department ([facility]) [address] [place] [address] Stephen Delgado, [address] [place] [address] Dislodged jejunostomy tube (Primary Dx); Epigastric pain Discharge Disposition: Home - Self Care [...] as of this encounter (statuses as of 01/30/2024) Medications Medication Sig Dispensed Refills Start Date End Date Status Naloxone HCl 4 MG/0.1ML Nasal Liquid (Narcan Nasal)Indications:Ch ronic pelvic pain in female,MEDICATION USE AGREEMENT,Chronic abdominal pain ADMINISTER 1 SPRAY INTO 1 NOSTRIL FOR SUSPECTED OPIOID OVERDOSE - SEEK IMMEDIATE MEDICAL ATTENTION. [email or web address] 2 Each 3 03/31/2023 Active Polyethylene Glycol [...] as directed, through J-tube via feeding pump. 24472 mL 11 10/05/2023 Active Peptamen AF Oral Liquid Administer 1,000 mL over 12 hours into J tube 4 times a day. 20961 mL 11 09/30/2023 09/24/2024 Active Enteral Feeding [...] as of this encounter (statuses as of 01/30/2024) Active Problems Problem Noted Date Diagnosed Date [...] as of this encounter (statuses as of 01/30/2024) Resolved Problems Problem Noted Date Diagnosed Date [...] as of this encounter (statuses as of 01/30/2024) Immunizations Name Administration Dates Next Due DTaP [...] Sign Reading Time Taken Comments Blood Pressure 121/100 01/29/2024 1:00 PM EDT Pulse 58 01/29/2024 1:00 PM EDT Temperature 36.9 C (98.4 F) 01/29/2024 1:00 PM ED T Respiratory Rate 16 01/29/2024 9:24 AM EDT Oxygen Saturation 100% 01/29/2024 1:00 PM EDT Inhaled Oxygen Concentration - - Weight - [...] this encounter Discharge Instructions * Discharge Instructions* Ignacio Serra DO - 01/29/2024 1:20 PM EDT You were seen in the emergency department today for J-tube dislodgement. Our interventional radiology team will arrange a time for you to have this replaced as an outpatient. For the meantime, you can continue to use the Esteban for your feeds. Please return emergency department if you begin to experience any worsening symptoms, fevers or chills, recurrent vomiting, or any other symptoms concerningto you. documented in this encounter ED Notes * Elly Brown RN - 01/29/2024 9:32 AM EDT Pt presents via EMS from [facility] for j tube replacement, abd pain. Pt presented to [facility] for abd pain. While at [facility], j tube become dislodged. [facility] replaced j tube with 6fr esteban andrecommended transfer for IR and j tube replacement. documented in this encounter Miscellaneous Notes * Ancillary Progress Note - Artem Ennis LSW - 01/29/2024 1:37 PM EDT CARE MANAGEMENT - ED TRANSITION [place] [facility] [address] Name: Anirudh Peñaloza Location: 29/X Date: 01/29/2024 Time: 1:37 PM Risk Stratification/Psychosocial/Care Gaps Caregiver Information Patient Contacts Name Relation Home Work Mobile Latrice Whyte Significant Other [phone] Debby Peñaloza Mother [phone] Car Peñaloza Father [phone] Patient/Family Expectations: Home-self care Narrative: Pt resident, pt was a transfer from [facility] and needs a ride back to get her car. SW issued a voucher of $160.00 pending molded goods spot picker at 2:00 pm. Voucher with pt. SW will continue to follow, address pt's evolving needs, and provide psychosocial support. Transition Planning Additional Considerations: NA Anticipated Transportation at Discharge: [employer] Care Management will continue to monitor and assist with discharge planning needs documented in this encounter Plan of Treatment Upcoming Encounters Date Type Department Care Team (Late st Contact Info) Description 03/25/2024 9:20 AM EDT [facility] [address] [phone] Kinjal Reynoso PA-C [address] [phone] Scheduled Orders Name Type Priority Associated Diagnoses Order Schedule IR GASTROINTESTINAL OSTOMY Medical Imaging Routine Dislodged jejunostomy tube Expected: 02/05/2024, Expires: 02/28/2025 Health Maintenance Due Date Last Done Comments [...] this encounter Medical Devices Implanted Type Area Service Manager Device Identifier Shelf Expiration Date Model / Serial / Lot Port Implant W/8f Poly Cath - [id number] Implanted:Qty : 1 on 05/18/2023 by Juan Jose Connell, at OR [facility] Right: Chest CR BARD : PERIPHERAL VASCULAR [id number] 11/18/2024 [id number] / / [id number] documented as of this encounter Visit Diagnoses Diagnosis Dislodged jejunostomy tube- Primary Mechanical complication of colostomy and enterostomy Epigastric pain Abdominal pain, epigastric documented in this encounter Administered Medications Inactive Administered Medications - up to 3 most recent administrations Medication Order MAR Action Action Date Dose Rate Site ondansetron (Zofran) inj 4 mg 4 mg, IV Push, ONCE, On 01/29/24 at 1200, For 1 dose Given 01/29/2024 11:29 AM EDT 4 mg documented in this encounter Active and Recently Administered Medications Times are shown in EDT. Scheduled Medication Order 01/27/2024 01/28/2024 01/29/2024 ondansetron (Zofran) inj 4 mg (COMPLETED) 4 mg, IV Push, ONCE, On 01/29/24 at 1200, For 1 dose 1129 (Given - Provid er: Elly Brown RN) documented in this encounter Advance Directives [...] Advance Directives occurred with: Patient Care Teams Infrastructure Tech Relationship Specialty Start Date End Date Kinjal Reynoso PA-C [address] [address] PCP - General Physician Tax Accountant 11/05/22 documented as of this encounter
--- OUTSIDE RECORDS SUMMARY | 2024-03-16 22:20 | External Medical Summary ---
Author Name Unknown Address Unknown Organization K1F:LABORATORY [facility] - [address] [place] [address] Laboratory Report Ordering Provider Test Date Status KASANDRA DELGADO 01/29/2024 02:56:17 Final Observation Date Value Abnormality Reference (Units ) Status Lipase 01/29/2024 02:56:17 27 13-60 (U/L ) Final Performing Location LABORATORY [facility] - [address] [place] [address]
--- OUTSIDE RECORDS SUMMARY | 2024-03-16 22:20 | External Medical Summary | Continuity of Care Document ---
Author Name Unknown Organization [facility] Address [address] [place] [phone] Care Team Providers Care Operations Tech Name Role Phone Kinjal Willis Primary Care Physician [phone] Encounter [facility] DENNIS [id number] Date(s): 01/05/24 - 01/10/[address] [phone] Encounter Diagnosis Jejunostomy tube site pain(Discharge Diagnosis) - 01/05/24 Discharge Disposition: Other Type Healthcare Facility Attending Physician: MD Leal Alexander Admitting Physician: MD Leal Alexander Referring Physician: MD Gamaliel, [facility] Andrez Allergies, Adverse Reactions, Alerts Substance Criticality Severity Reaction Reaction Severity Status diphenhydrAMINE 1 Unspecified Active metoclopramide 2 Hallucinations Active prochlorperazine 3 Hallucinations Active iodinated radiocontrast dyes Nausea Active Haldol "psych reaction" Act landry Reglan Unable to assess criticality Mild Restlessness Active compositae derivatives Unable to assess criticality Mild Restlessness Active droPERidol 4 Unable to assess criticality Moderate Other Active hydrOXYzine 5 Other Active Benadryl Unable to assess criticality Mild Restlessness Active 1Outside Source Comment: Us 2Outside Source Comment: Gets very agitated 3Outside Source Comment: Gets very agitated 4Outside Source Comment: %22psych reactions%22 per patient 5Outside Source Comment: %22restless legs%22 Functional Status 01/10/24 Neurological Symptoms None ADLs Independent Facial Symmetry Symmetric Gait Steady Swallowing Difficulty None Level of Consciousness Neuro Alert Hallucinations Present None Speech Pattern Clear 01/10/24 History of Fall in Last 3 Months Bowles N o Presence of Secondary Diagnosis Bowles Ye s Use of Ambulatory Aid Bowles None/bedrest /nurse assist IV/Heparin Lock Fall Risk Bowles Yes Gait/Transferring Fall Risk Bowles Normal /bedrest/immobile Mental Status Fall Risk Bowles Oriented t o own ability Bowles Fall Risk Score 35 Bowles Fall Risk Low Risk Medications Augmentin 400 mg-57 mg/5 mL oral liquid Start: 01/10/24 1:14:00 PM EDT, amoxicillin 5 mL, J-tube, bid Start Date: 01/10/24 Status: Ordered Florajen Digestion Start: 01/10/24 11:52:00 AM EDT, 1 cap, PO, Daily Start Date: 01/10/24 Status: Ordered naproxen 375 mg oral tablet Start: 01/10/24 11:52:00 AM EDT, 1 tab, J-tube, bid Start Date: 01/10/24 Status: Ordered norethindrone 5 mg oral tablet Start: 03/16/23 11:05:00 PM EDT, 1 tab, PO, Daily Start Date: 03/16/23 Status: Ordered ondansetron 4 mg oral tablet, disintegrating Start: 03/25/23 7:54:00 AM EDT, 1 tab, PO, tid, Disp# 15 tab, Refills: 0, PRN: as needed for nausea/vomiting, Pharmacy: [facility] Start Date: 03/25/23 Stop Date: 03/30/23 Status: Ordered oxyCODONE 5 mg oral tablet Start: 01/05/24 2:16:00 PM EDT, 1 tab, PO, q6h, Refills: 0, PRN: as needed for pain Start Date: 01/05/24 Status: Ordered oxyCODONE 5 mg/5 mL oral solution Start: 01/10/24 11:53:00 AM EDT, 5 mg =, J-tube, q4h, Refills: 0, PRN: pain - severe (7-10) Start Date: 01/10/24 Status: Ordered Prevacid 15 mg oral delayed release capsule Start: 03/25/23 9:52:00 AM EDT, 2 cap, PO, Daily, Disp# 60 cap, Refills: 0, Pharmacy: [facility] Start Date: 03/25/23 Stop Date: 04/24/23 Status: Ordered Tylenol 325 mg oral tablet Start: 03/25/23 7:55:00 AM EDT, 2 tab, PO, q6h, PRN: fever/mild pain (1-3) Start Date: 03/25/23 Status: Ordered Unasyn Start: 01/10/24 1:14:00 PM EDT, 3 g =, IV, q6h Start Date: 01/10/24 Status: Ordered Mental Status 01/10/24 Primary Language Guyanese Problem List Condition Confirmation Course Effective Dates Status H ealth Status Informant Endometriosis Confirmed Active Gastroparesis Confirmed Active Pelvic pain Confirmed Active Post concussive syndrome Confirmed Active PTSD (post-traumatic stress disorder) Confirmed Active Diagnosis Diagnosis Type Effective Dates Health Status Clinical Service Informant Jejunostomy tube site pain Discharge Diagnosis 01/05/24 Non-Specified Procedures Procedure Date Related Diagnosis Body Site Status Laparoscopy 11/05/20 Completed Laparoscopy 2017 Completed Mirena IUD Insertion 2017 Co mpleted Laparoscopic hysterectomy Completed 1insertion of mirena Results Laboratory List Name Date Complete Blood Count (CBC w Platelets) Complete Blood Count (CBC w Platelets) COVID-19 Coronavirus, FluA/B and RSV 12/20 Complete Blood Count (CBC w Platelets) MRSA Surveillance (Nasal Swab) 01/07/24 Comprehensive Metabolic Panel (CMP) 01/05 Screen, Urine (Urine Screen) 01/05/24 Comprehensive Metabolic Panel (CMP) 01/04 Prothrombin Time w/ INR (PT/INR) 01/05/24 Most recent to oldest [Reference Range]: 1 2 3 eGFR CKD-EPI [>60 mL/min/1.73 m2] >90 mL/min/1.73 m2 (01/06/24 4:57 AM) >90 mL/min/1.73 m2 (01/05/24 4:28 PM) Estimated CrCl 141.11 mL/min (01/06/24 5:54 AM) 115.84 mL/min (01/05/24 5:05 PM) Influenza A [NIAD] No Influenza A detec carlos manuel 1 (01/08/24 12:39 PM) Influenza B [NIAB] No Influenza B detec carlos maunel 2 (01/08/24 12:39 PM) RSV [NRSVD] No RSV detected 3 (01/08/24 12:39 PM) MPV [9.0-12.2 fL] 10.4 fL (01/10/24 6:23 AM) 10.2 fL (01/09/24 4:16 AM) 10.3 fL (01/08/24 6:19 AM) RDW [11.5-14.2 %] 12.0 % (01/10/24 6:23 AM) 12.0 % (01/09/24 4:16 AM) 11.9 % (01/08/24 6:19 AM) MRSA Surveillance, on Admission [MSND] MRSA NOT detected (01/07/24 6:37 AM) Anion Gap [5-14 mmol/L] 12 mmol/L (01/06/24 4:57 AM) 11 mmol/L (01/05/24 4:28 PM) Alb [3.5-5.2 g/dL] 3.9 g/dL (01/06/24 4:57 AM) 4.0 g/dL (01/05/24 4:28 PM) Alk Phos [35-115 unit/L] 64 unit/L 4 (01/06/24 4:57 AM) 70 unit/L 5 (01/05/24 4:28 PM) ALT [0-33 unit/L] 10 unit/L (01/06/24 4:57 AM) 11 unit/L (01/05/24 4:28 PM) AST [0-32 unit/L] 13 unit/L (01/06/24 4:57 AM) 15 unit/L (01/05/24 4:28 PM) BUN [6-23 mg/dL] 9 mg/dL (01/06/24 4:57 AM) 8 mg/dL (01/05/24 4:28 PM) Ca [8.4-10.2 mg/dL] 8.9 mg/dL (01/06/24 4:57 AM) 9.3 mg/dL (01/05/24 4:28 PM) Cl- [98-107 mmol/L] 106 mmol/L (01/06/24 4:57 AM) 106 mmol/L (01/05/24 4:28 PM) HCO3 [22-29 mmol/L] 23 mmol/L (01/06/24 4:57 AM) 24 mmol/L (01/05/24 4:28 PM) Cret [0.60-1.00 mg/dL] 0.55 mg/dL *LOW* (01/06/24 4:57 AM) 0.67 mg/dL (01/05/24 4:28 PM) Glu [74-109 mg/dL] 82 mg/dL 6 (01/06/24 4:57 AM) 87 mg/dL 7 (01/05/24 4:28 PM) HCG Scr (u) [NEG] NEGATIVE (01/05/24 6:05 PM) Hct [35-44 %] 35.3 % (01/10/24 6:23 AM) 34.4 % *LOW* (01/09/24 4:16 AM) 35.5 % (01/08/24 6:19 AM) Hgb [11.7-15.0 g/dL] 12.4 g/dL (01/10/24 6:23 AM) 12.0 g/dL (01/09/24 4:16 AM) 12.5 g/dL (01/08/24 6:19 AM) INR [0.9-1.1] 1.0 8 (01/05/24 4:28 PM) K [3.5-5.1 mmol/L] 3.7 mmol/L (01/06/24 4:57 AM) 3.9 mmol/L (01/05/24 4:28 PM) MCH [28-33 pg] 31.6 pg (01/10/24 6:23 AM) 30.5 pg (01/09/24 4:16 AM) 31.0 pg (01/08/24 6:19 AM) MCHC [32-36 g/dL] 35.1 g/dL (01/10/24 6:23 AM) 34.9 g/dL (01/09/24 4:16 AM) 35.2 g/dL (01/08/24 6:19 AM) MCV [81-96 fL] 89.8 fL (01/10/24 6:23 AM) 87.3 fL (01/09/24 4:16 AM) 88.1 fL (01/08/24 6:19 AM) Na [136-145 mmol/L] 141 mmol/L (01/06/24 4:57 AM) 141 mmol/L (01/05/24 4:28 PM) Plts [150-350 K/uL] 251 K/uL (01/10/24 6:23 AM) 274 K/uL (01/09/24 4:16 AM) 258 K/uL (01/08/24 6:19 AM) PT [12.0-14.2 seconds] 13.1 seconds (01/05/24 4:28 PM) RBC [3.90-5.00 M/uL] 3.93 M/uL (01/10/24 6:23 AM) 3.94 M/uL (01/09/24 4:16 AM) 4.03 M/uL (01/08/24 6:19 AM) T Bili [0.0-1.2 mg/dL] 0.3 mg/dL (01/06/24 4:57 AM) 0.3 mg/dL (01/05/24 4:28 PM) Prot [6.4-8.3 g/dL] 6.5 g/dL (01/06/24 4:57 AM) 7.0 g/dL (01/05/24 4:28 PM) WBC [4.0-10.4 K/uL] 5.73 K/uL (01/10/24 6:23 AM) 4.47 K/uL (01/09/24 4:16 AM) 4.86 K/uL (01/08/24 6:19 AM) COVID-19 Coronavirus PCR [COV19N] COVID 19 VIRUS DETECTED 9 *Abnormal* (01/08/24 12:39 PM) 1Result Comment: A negative result does not rule out the possibility of influenza infection as the sensitivity of this test is approximately 98% Patients being admitted to [facility] should also have the RVP assay ordered. 2Result Comment: A negative result does not rule out the possibility of influenza infection as the sensitivity of this test is approximately 98% Patients being admitted to [facility] should also have the RVP assay ordered. 3Result Comment: A negative result does not rule out the possibility of RSV infection as the sensitivity of this test is approximately 98% Patients being admitted to [facility] should also have the RVP assay ordered. 4Result Comment: Low levels of ALKP may indicate a deficiency in zinc, magnesium, or malnutritionbutcan also be an indicator of a rare genetic disease hypophosphatasia (HPP). 5Result Comment: Low levels of ALKP may indicate a deficiency in zinc, magnesium, or malnutritionbutcan also be an indicator of a rare genetic disease hypophosphatasia (HPP). 6Result Comment: ADA recommendation for FASTING Serum/Plasma Glucose: Normal: 70-100 mg/dL Prediabetes: 100-125 mg/dL Diabetes: 126 mg/dL or higher 7Result Comment: ADA recommendation for FASTING Serum/Plasma Glucose: Normal: 70-100 mg/dL Prediabetes: 100-125 mg/dL Diabetes: 126 mg/dL or higher 8Result Comment: Suggested therapeutic range for low-intensity Coumadin therapy for venous thromboembolism is INR 2.0-3.0 (ex: atrial fibrillation, history of TIA/stroke). For high risk patients, the suggested therapeutic range is INR 2.5-3.5 (ex: mechanical prosthetic valves). 9Result Comment: Test results reported to [place] Dept of Health This assay has been granted an Emergency Use Authorization (EUA) by the U.S. Food and Drug Admimistration. The performance of the assay (Tablo by PCR) has been verified by the [facility]. Radiology Reports * Exam Date Time Procedure Performing Provider Status 01/08/24 5:26 PM XR Abdomen 1 View Rosmery Purcell; Final Notes: (XR Abdomen 1 View) Reason For Exam: Evaluate J-tube placement and free air under diaphragm. Severeabd pain XR Abdomen 1 View EXAMINATION: XR Abdomen 1 View CLINICAL HISTORY: 23-year-old female whose J-tube dependent who had a G-tube exchange on 01/06/2024 with abdominal pain Evaluate J-tube placement and free air under diaphragm. Severe abd pain COMPARISON: Fluoroscopy from 01/06/[address] abdomen from 01/02/2024 FINDINGS: AP portable, semierect erect radiograph of the abdomen J-tube in unchanged position in comparison to fluoroscopy and CT abdomen. Nonobstructive bowel gas pattern no discernible pneumoperitoneum. No acute osseous abnormality. Soft tissues are unremarkable. Visualized lung lundberg are clear. IMPRESSION: J-tube in unchanged position. Dr. Claudy Villa is the dictating resident. Finalized reports status indicates that the attending has reviewed the images and report, and agrees with the interpretation. Preliminary report status should be regarded as NOT interpreted by the attending radiologist. Workstation ID: [id number] Final Dictated by:DO Villa Alex Dictated DT/TM:01/08/2024 5:41 Resident:DO Villa Alex Signed by:MD Chinchilla Jonelle M Signed (Electronic Signature):01/08/2024 5:40 p * Exam Date Time Procedure Performing Provider Status 01/06/24 6:54 PM IR Jejunostomy Tube Change DO Isaacs Lindsay M; Final Notes: (IR Jejunostomy Tube Change) Reason For Exam: J tube ballon malfunction, request for exchange IR Jejunostomy Tube Change EXAMINATION: IR Jejunostomy Tube Change CLINICAL HISTORY: J tube ballon malfunction, request for exchange COMPARISON: None FINDINGS: IMPRESSION: PROCEDURES: HISTORY: 23-year-old female with a need for post pyloric access INDICATIONS: GJ tube dislodged PHYSICIANS: Misael Jacobo MD SEDATION: The risks and benefits of moderate sedation were discussed with the patient as part of the procedural informed consent process. Provider supervised intra- procedure moderate sedation was performed using a trained independent observer who monitored the patient's level of sedation and physiologic status throughout the procedure. Pre-procedure and post-procedure sedation assessments were performed inaccordance with institutional sedation policy and are documented separately in the medical record. Total Provider Sedation Supervision Time: 25 minutes. MEDICATIONS: Fentanyl 150 mcg Midazolam 3 mg CONTRAST: None. DOSIMETRY: Fluoroscopy Time: 0.50 min Cumulative Dose: 3 mGy MEASUREMENTS: Balloon Volume: 5 ml SPECIMENS: None. EST. BLOOD LOSS: None. COMPLICATIONS: None. SUPPORTING DOCUMENTATION: Pre-Procedure Verification (Physician/Provider) [X]: Patient Name and Verified Against Patient ID Band [X]: Written Consent Verified (Patient, Procedure, Site/Side) [ ]: Site Marking Verified (keep unchecked if not applicable) [X]: H \\T\\ P Completed (if required) Documented 01/06/2024 at 18:32:39 By Misael Jacobo MD Pre-Procedure Verification (Nurse/Technologist) [X]: Patient Name and Verified Against Patient ID Band [ ]: Written Consent Verified (Patient, Procedure, Site/Side) [ ]: Site Marking Verified (keep unchecked if not applicable) [X]: H \\T\\ P Verified (if required) Documented 01/06/2024 at 18:32:39 By Glen Herring RN Time Out [X]: Patient Identified by Name and [ ]: Written Consent Verified (Patient,Procedure, Site/Side) [X]: Patient Positioned Correctly [X]: Patient Records Available (Order, Images) [X]: Anticipated Procedure Equipment / Devices Available [ ]: Site / Side Marking Completed (keep unchecked if not applicable) [X]: Preprocedure Medications Administered (Antibiotics,Premedications, or n/a) [X]: All team members are present and are in agreement with Time Out (not documented prior to 10/30/2017). Documented 01/06/2024 at 18:36:26 By Glen Herring RN TECHNIQUE: Following informed consent and verification of the correct patient identity and planned procedure, the anterior abdomen was prepped and draped in the usual sterile fashion. Local anesthesia around the indwelling gastrojejunal tube was achieved using 2% Lidocaine. The tube was removed over a 035 Roadrunner wire. Over the wire, a 16FR KHANG TJ gastrojejunal tube was advanced until the tip was beyond the ligament of Treitz. The gastric balloon was inflated with 10ml of sterile water. The anchoring disk was advanced to the skin and locked in place. Contrast was injected through both ports and spot film imaging was obtained as a post placement study. FINDINGS: Existing GJ tube slightly pulled back, balloon compromised, however tip beyond the ligament of treitz. New GJ tube with tip beyond the ligament of treitz INTERPRETATION: 1. Over the wire exchange of gastrojejunal tube with placement of a new 16FR KHANG TJ gastrojejunal tube. 2. The tube may be used immediately. 3. No crushed medications should be administered through either G or J port. Workstation ID: [id number] Final Dictated by:MD Jacobo Benjamin David Dictated DT/TM:01/08/2024 4:41 Signed by:MD Jacobo Benjamin David Signed (Electronic Signature):01/08/2024 4:40 p * Exam Date Time Procedure Performing Provider Status 01/05/24 3:[address] Abdomen and Pelvis Consult Felicita Cassidy; Final Notes: (OO CT Abdomen and Pelvis Consult) Reason For Exam: evaluation of J tube OO CT Abdomen and Pelvis Consult EXAMINATION: CT abdomen and pelvis performed at [facility] CLINICAL HISTORY: evaluation of J tube COMPARISON: Subsequent radiographs of the abdomen. Preceding CT from 12/31/2023 TECHNIQUE: CT abdomen and pelvis images without IV contrast were acquired at an outside hospital dated 01/02/2024 and submitted for secondary interpretation at [facility]. No additional scanning was performed. FINDINGS: Limited by lack of coronal or sagittal reconstructions. Limited by lack of IV contrast. Lung bases are clear. For technique, the liver, gallbladder, spleen, adrenal glands, kidneys, pancreas are grossly unremarkable. No retroperitoneal lymphadenopathy. Right-sided approach jejunostomy tube with tip terminating in left mid abdominal small bowel loop. Minimal inflammatory changes along the tract. Overall, bowel is nonobstructive. Trace free fluid in the pelvis, which could be physiologic. Surgical clip in the right lower quadrant. Bladder is unremarkable for degree of distention. Uterus is not well-visualized, if present. Left ovary does appear present and is grossly unremarkable. No discrete pelvic chain lymphadenopathy. No acute bony findings. Scarring in the superficial soft tissues of the left mid abdomen. IMPRESSION: Right-sided approach J-tube with tip terminating in a left mid abdominal small bowel loop. Balloon not well visualized. Minimal inflammatory changes along the tract superficially. Infectious or inflammatory. Workstation ID: [id number] Final Dictated by:MD Ellison Kathryn L Dictated DT/TM:01/07/2024 8:55 Signed by:MD Ellison Kathryn L Signed (Electronic Signature):01/07/2024 8:54 a Vital Signs Most recent to oldest [Reference Range]: 1 2 3 Patient Weight 71.4 kg (01/05/24 5:07 PM) Temperature [36.5-37.9 DegC] 36.0 DegC *LOW* (01/10/24 12:21 PM) 35.7 DegC *LOW* (01/10/24 6:23 AM) 36.4 DegC *LOW* (01/09/24 8:24 PM) Heart Rate 71 bpm (01/10/24 12:21 PM) 71 bpm (01/10/24 6:23 AM) 61 bpm (01/09/24 8:24 PM) Respiratory Rate 16 br/min (01/10/24 6:09 PM) 16 br/min (01/10/24 2:53 PM) 16 br/min (01/10/24 12:21 PM) Blood Pressure 131/85mmHg (01/10/24 12:21 PM) 119/84mmHg (01/10/24 6:23 AM) 127/71mmHg (01/09/24 8:24 PM) Mean Blood Pressure 100 mmHg (01/10/24 12:21 PM) 94 mmHg (01/10/24 6:23 AM) 86 mmHg (01/09/24 8:24 PM) Cuff Pulse Pressure 46 mmHg (01/10/24 12:21 PM) 35 mmHg (01/10/24 6:23 AM) 56 mmHg (01/09/24 8:24 PM) BP Location # 1 Left Arm (01/10/24 12:21 PM) Left Arm (01/10/24 6:23 AM) Right Arm (01/09/24 8:24 PM) Social History Social History Type Response Smoking Status Never smoked cigaret sarbjit Sex Female Sex Representation Female (finding) Pre-OP H & P * MD Donnell, Smith Palm: PERFORM Event Display: Pre-OP H & P Authored Date: [id number] PRE-OPERATIVE HISTORY AND PHYSICAL Name: ELIF LEVY Patient Number: [id number] : 2000 Date of Service: 01/06/2024 Interventional Radiology Pre-procedure History and Physical Patient Name: ELIF LEVY Date Of : 2000 Medical Record: [id number] Date of Service: 2024-01-06 Planned Procedure: IR Jejunostomy Tube Change Reason For Consult: GI: Jejunostomy Tube Change/Reinsertion History of Present Illness: 23 year old F w/ gastroparesis s/p G tube placement 01/2023 presenting as transfer from [facility] for J tube dislodgement. Requesting tube change/reinsertion. Past Medical and Surgical History: Endometriosis, Pelvic pain, Post concussive syndrome, PTSD (post-traumatic stress disorder), Laparoscopy| Service Date: 11/05/2020, Mirena IUD Insertion| Service Date: 2017, Laparoscopy| Service Date: 2018, Laparoscopic hysterectomy, Allergies: Benadryl (restlessness) droperidol (other) Haldol ("psych reaction") iodinated contrast (nausea) metoclopramide (hallucinations) prochlorperazine (hallucinations) Reglan (restlessness) Medications: acetaminophen(Tylenol 325 mg oral tablet), 650 mg= 2 tab, PO, q6h, PRN, lansoprazole(Prevacid 15 mgoral delayed release capsule), 30 mg= 2 cap, PO, Daily, norethindrone(norethindrone 5 mg oral tablet), 5 mg= 1 tab, PO, Daily, ondansetron(ondansetron 4 mg oral tablet, disintegrating), 4 mg= 1 tab, PO, tid, PRN, oxyCODONE(oxyCODONE 5 mg oral tablet), 5 mg= 1 tab, PO, q6h, PRN Physical Exam: LOC / Mental Status: Awake, Alert, Oriented Airway: Mallampati Score: Class 1: Complete visualization of the soft palate Lungs: Clear Cardiac: Normal Sinus Rhythm Abdomen: soft moderately tender at the tube site. no erythema ASA Classification: Class II: Patient with mild systemic disease Assessment: 23 year old F w/ gastroparesis s/p G tube placement 01/2023 presenting as transfer from [facility] for partial J tube dislodgement. Requesting tube change/reinsertion. Plan: Sedation / Anesthesia Plan: Moderate Sedation Consent by Patient Electronic Signature on File Electronically Reviewed/Signed by: Smith Jacobo MD Author Signature Dt/Tm:01/06/2024 06:17 PM Division of Interventional Cardiology [facility] * MD Leal Alexander: MODIFY MD Leal Alexander: MODIFY, MODIFY, MODIFY, MODIFY, MODIFY, MODIFY, PERFORM Event Display: H&P Authored Date: [id number] Name:DEIDRA LEVYFarshad Dwayne Patient Number:[id number] :2000 Date of Service:01/05/2024 Chief Complaint Transfer from [facility] to concern for J-tube malfunction (balloonwas possiblydeflated) History of Present Illness 23-year-old femalewith historyof gastroparesisdiagnosed over 8 years ago(status postJ[facility]tube placementin [facility]2022)who presents [facility] 12/31/2023secondary toright-sided abdominal pain. According to the patient,since 2 days ago,her J-tubestarted moving out of position. Patient statesimages were takenbefore and after this event, showing"they saw the balloon with the first imagesbut not the second time." Patient was transferred to [facility] IR service to evaluate the J-tube's functioning status. Pt reports history ofchronic abdominal painrelated to gastroparesis,is taking oxycodone 5 mg4 times a day,gabapentin 2002 dilip es dailyandZofran as needed at baseline. Patient reportsher pain is5 out of 10at baseline, currently 8 out of 10. At admission,patient appears clinically stable,afebrile,blood pressure 136/95,breathing on room aircomfortably,inmoderate amount of pain,pointing to her J-tube. J-tube is in placewithouterythema, warmthordrainagefrom exiting site. Patient transferredto medicineawaitingIR evaluation and treatment ofJ-tube displacement. Review of Systems Denies chest pain, shortness of breath, fever, chills,lightheadedness. Physical Exam Vitals & Measurements T:36.8C RR:18 BP:136/95 SpO2:97% Oxygen Therapy:Room Air WT:67.5kg(Dosing) Gen: NAD, alert Eyes: PERRL, EOMI Mouth: moist mucus membranes Neck: supple CV: RR, no murmur, normal S1, S2 Resp: CTAB Abd: soft, ND, BS+, moderate tenderness on the right side, J-tube in place without erythema/drainage/warmth surrounding exiting site Ext: no edema Neuro: no gross deficit Assessment/Plan 23-year-old femalewith historyof gastroparesisdiagnosed over 8 years ago(status postJ-tube placementin [place] 2022)who presents [facility] 12/31/2023secondary toright-sided abdominal painandtransferred to CforIR consultationregarding possibleJ- tubedisplacement. #J-tubeballoon malfunction -ObtainCBC with platelets, PT/INR -IR consult #Right-sided abdominal pain Workupcompletedat outside facility without immediate concerns. No concernfor infectious etiologyfrom clinical standpointat presentation(afebrile,reassuring vital). -TrendCBC -Pain control withscheduled IV Tylenol andopioidsas needed -Zofran for nausea #Diarrhea Loose stools for 2 dayswhichhave been improvingsince yesterday. No feveror chills. Low clinical suspicion for C. difficile. -Maintenancefluid withLRand observe -TrendCMPforpossible electrolyte derangementto replete Diet:NPOsecondary to J-tube malfunction DVT PPx: Hold for potential procedure Dispo:Med-Surg MARIAM:01/07/2024 Barriers:IR consults CODE STATUS:Full The patient was staffed with Dr. Mel MD, Alexander, the attending physician of record. The attending physician was in agreement with the assessment and plan unless otherwise noted in the attestation / addendum below. Attestation This patient was discussed and formulated with the attending of record MD Vandana, Tomás, who agrees with the plan above unless otherwise indicated. Attending Addendum I discussed the case with Dr. Hameed, reviewed pertinent history, and performed ford portions of the history and physical exam independently. I agree with their documentation as above, with the exception of my own findings, noted below: As noted above, transferred from [facility] for J-tube evaluation and consultation with interventional radiology.Will pursueinterventional evaluation,andcontinue to managehydrationand pain. _ _ Tomás Leal M.D. Numerical Control Machine Operator of Pediatrics & Internal Medicine [facility] [id number] Problem List/Past Medical History Ongoing Endometriosis Pelvic pain Post concussive syndrome PTSD (post-traumatic stress disorder) Procedure/Surgical History Laparoscopy| Service Date: 11/05/2020Mirena IUD Insertion| Service Date: 2018Laparoscopy| Service Date: 2018Laparoscopic hysterectomy Medications Inpatient HYDROmorphone(Dilaudid), 0.2 mg= 1 mL, IV Push, ONCE ondansetron(Zofran), 4 mg= 2 mL, IV Push, q6h, PRN Home acetaminophen(Tylenol 325 mg oral tablet), 650 mg= 2 tab, PO, q6h, PRN lansoprazole(Prevacid 15 mg oral delayed release capsule), 30 mg= 2 cap, PO, Daily norethindrone(norethindrone 5 mg oral tablet), 5 mg= 1 tab, PO, Daily ondansetron(ondansetron 4 mg oral tablet, disintegrating), 4 mg= 1 tab, PO, tid, PRN oxyCODONE(oxyCODONE 5 mg oral tablet), 5 mg= 1 tab, PO, q6h, PRN Allergies droPERidol (Moderate)Other Benadryl (Mild)Restlessness Reglan (Mild)Restlessness compositae derivatives (Mild)Restlessness Haldol"psych reaction" diphenhydrAMINEUnspecified iodinated radiocontrast dyesNausea metoclopramideHallucinations prochlorperazineHallucinations Social History Smoking Status Never smoked cigarettes Family History None per pt Lab Results Test Name Test Result Date/TimeNa 141 mmol/L 01/05/2024 16:28 EDT K 3.9 mmol/L 01/05/2024 16:28 EDT Cl- 106 mmol/L 01/05/2024 16:28 EDT HCO3 24 mmol/L 01/05/2024 16:28 EDT Anion Gap 11 mmol/L 01/05/2024 16:28 EDT BUN 8 mg/dL 01/05/2024 16:28 EDT Cret 0.67 mg/dL 01/05/2024 16:28 EDT Estimated CrCl 115.84 mL/min 01/05/2024 17:05 EDT eGFR CKD-EPI >90 mL/min/1.73 m2 01/05/2024 16:28 EDT Glu 87 mg/dL 01/05/2024 16:28 EDT Ca 9.3 mg/dL 01/05/2024 16:28 EDT WBC 4.52 K/uL 01/05/2024 16:28 EDT Hgb 12.9 g/dL 01/05/2024 16:28 EDT Hct 35.8 % 01/05/2024 16:28 EDT RBC 4.11 M/uL 01/05/2024 16:28 EDT MCV 87.1 fL 01/05/2024 16:28 EDT MCHC 36.0 g/dL 01/05/2024 16:28 EDT MCH 31.4 pg 01/05/2024 16:28 EDT RDW 11.8 % 01/05/2024 16:28 EDT Plts 244 K/uL 01/05/2024 16:28 EDT MPV 10.4 fL 01/05/2024 16:28 EDT INR 1.0 01/05/2024 16:28 EDT PT 13.1 seconds 01/05/2024 16:28 EDT ALT 11 unit/L 01/05/2024 16:28 EDT T Bili 0.3 mg/dL 01/05/2024 16:28 EDT Alk Phos 70 unit/L 01/05/2024 16:28 EDT AST 15 unit/L 01/05/2024 16:28 EDT Alb 4.0 g/dL 01/05/2024 16:28 EDT Prot 7.0 g/dL 01/05/2024 16:28 EDT HCG Scr (u) NEGATIVE 01/05/2024 18:05 EDT Electronic Signature on File Electronically Reviewed/Signed by: Nino Hameed MD Author Signature Dt/Tm:01/05/2024 07:14 PM Resident Division of Internal Medicine Electronically Reviewed/Signed by: Tomás Leal MD Cosigner Signature Dt/Tm: 01/07/2024 08:28 PM Department of Pediatrics Electronically Reviewed/Signed by: Nino Hameed MD Resident Division of Internal Medicine TV .D/C Summary * MD Mel, Tomás: MODIFY MD Leal Alexander: MODIFY, MODIFY, MODIFY, MODIFY, MODIFY, MODIFY MD Hameed Tuan: MODIFY Event Display: .D/C Summary Authored Date: [id number] [facility] For medical concerns, call: . Address: [address] [place] [address] [phone] (MOBILE) :2000 . Date of Admission:01/05/2024 Date of Discharge:01/10/2024 Physician:MD Leal Alexander Service:Internal Medicine Discharge Disposition: Primary Care Provider/Phone: FABI WILLIS, KINJAL BRITT (BUSINESS) [phone] (FAX BUSINESS) Principal Diagnosis: Jejunostomy tube site pain Other Diagnoses: Major Tests and Procedures: (01/06/2024 18:54 EDT IR Jejunostomy Tube Change) INTERPRETATION: 1. Over the wire exchange of gastrojejunal tube with placement of a new 16FR KHANG TJ gastrojejunal tube. 2. The tube may be used immediately. 3. No crushed medications should be administered through either G or J port. [1] (01/08/2024 17:26 EDT XR Abdomen 1 View) J-tube in unchanged position. [2] Brief History of Present Illness: 23-year-old femalewith historyof gastroparesisdiagnosed over 8 years ago(status post[facility] toright-sided abdominal pain. According to the patient,since 2 days ago,her J-tubestarted moving out of position. Patient statesimages were takenbefore and after this event, showing"they saw the balloon with the first imagesbut not the second time." Patient was transferred to [facility] IR service to evaluate the J-tube's functioning status. Pt reports history ofchronic abdominal painrelated to gastroparesis,is taking oxycodone 5 mg4 times a day,gabapentin 2003 dilip es dailyandZofran as needed at baseline. Patient reportsher pain is5 out of 10at baseline, currently 8 out of 10. At admission,patient appears clinically stable,afebrile,blood pressure 136/95,breathing on room aircomfortably,inmoderate amount of pain,pointing to her J-tube. J-tube is in placewithouterythema, warmthordrainagefrom exiting site. [facility]. Hospital Course: 23-year-old femalewith historyof gastroparesisdiagnosed over 8 years ago(status post[facility] 2022)[place]secondary toright-sided abdominal painand[facility] possible[facility]- [facility]edisplacement. #J-tubeballoon malfunction #Concerning for infection at J-tube site Pt continue to be afebrile, no leukocytosis, stable vital signs to suggest systemic infection.Workupcompletedat outside facility without immediate concerns other than potential J tube malfunction. She underwenttube exchange on 01/06/2024. There was concern for possible infection per radiology while evaluatingpt's J-tube secondary to unusual tenderness at the site. She was started onIV Unasyn 1g q8h(01/05 - 01/09) and transitioned to Augmentin via J-tubefor a total of 7 days Exam on Discharge: Vitals & Measurements: T:35.7C TMIN:35.7C TMAX:36.4C HR:71(Monitored) RR:16 BP:119/84 SpO2:99% Oxygen Therapy:Room Air Gen: NAD, alert Eyes: PERRL, EOMI Mouth: moist mucus membranes Neck: supple CV: RR, no murmur, normal S1, S2 Resp: CTAB Abd: Mild tenderness on the right side, J-tube in place, no rebound, no guarding; No hepatosplenomegaly Ext: no edema Neuro: no gross deficit Discharge Medications: 1.Norethindrone (norethindrone 5 mg oral tablet) 5 mg (1 tab) by mouth once daily. 2.Acetaminophen (Tylenol 325 mg oral tablet) 650 mg (2 tab) by mouth every 6 hours, as needed for fever/mild pain (1-3). 3.Ondansetron (ondansetron 4 mg oral tablet, disintegrating) 4 mg (1 tab) by mouth 3 times daily, as needed for nausea/vomiting. 4.Lansoprazole (Prevacid 15 mg oral delayed release capsule) 30 mg (2 cap) by mouth once daily. 5.OxyCODONE (oxyCODONE 5 mg oral tablet) 5 mg (1 tab) by mouth every 6 hours, as needed for pain. 6.OxyCODONE (oxyCODONE 5 mg/5 mL oral solution) 5 mg by J-tube every 4 hours, as needed for pain - severe (7-10). 7.Bifidobacterium-lactobacillus (Florajen Digestion) 1 cap by mouth once daily. 8.Naproxen (naproxen 375 mg oral tablet) 375 mg (1 tab) by J-tube 2 times daily. 9.Amoxicillin-clavulanate (Augmentin 400 mg-57 mg/5 mL oral liquid) 400 mg (5 mL) by J-tube 2 timesdaily. 10.Ampicillin-sulbactam (Unasyn) 3 g (100 mL) intravenously every 6 hours. Allergies and Sensitivities: droPERidol (Moderate)Other Benadryl (Mild)Restlessness Reglan (Mild)Restlessness compositae derivatives (Mild)Restlessness Haldol"psych reaction" diphenhydrAMINEUnspecified hydrOXYzineOther iodinated radiocontrast dyesNausea metoclopramideHallucinations prochlorperazineHallucinations Tests Pending: None Other Appointments: Follow Up FABI Ernandez, Kinjal Britt When:Within 1 to 2 weeks Where:[facility] [address] [id number]- Additional Information: Call your doctor to make an appointment Discharge Services: No Post-Acute Placement(s) Listed No Post-Acute Service(s) Listed Care Instructions: INSTRUCTIONS FOR FACILITY Follow up appointments: Keep all your follow up appointments as already scheduled. You will follow up with the physician at the admitting hospital. Have the physician at the facilityrequested appointment with your primary care provider within 1 week of discharge. You were admitted to [facility] for treatment of J-tube displacement by Interventional Radiology. Your J-tube was replaced on 01/06/2024. There was concerning for infection around the site of your J-tube for which we started IV Unasyn (01/05 - 01/09) and to be transitioned to Augmentin via J-tube (01/10-01/11)for 7day course total. Restarted tube feed with goal of 85 cc/hourand 1L/dayoffree water repletion through J-tube. Continue chronic painmanagement with Oxycodone 5 mg solution through J-tube. Zofran4 mg q6h as needed for nausea. If there are any tests with pending results at the time of your discharge, please have your primarycare physician follow up with the results at the time of your next office visit. Medications: Please review your medications and ask your physician if you have any questions. Your medication list has been reviewed and reconciled upon discharge to ensure accuracy and continuity of care. You are provided with a list of all your current medications at this time. Please review closely and make note of any changes. Take all of your medications exactly as prescribed. Tell your primary care provider if you cannot afford your medications. Call your primary care provider if you are having any side effects or any other problems. Call your primary care provider before taking any over the counter medications or supplements, including herbals and vitamins, because some of these may interact with your current medications and/or make your symptoms worse. Finish the course of your antibiotics:2more days of Augmentinfor a total of 7 days. Your lastday will be 01/12/2024.Finish the prescription even if you feel better. The minimum amount of antibiotic you took to make you may feel better may have killed only the most susceptible bacteria. Thus, this leaves the hardiest bacteria to survive and multiply. Never share or take leftover antibiotics. PREVENTING PRESSURE WOUNDS: Keep the skin dry and clean For immobile patients it is important to reposition every two hours WOUND CARE: Monitor for signs and symptoms of infection, which may include: increasing redness of the surrounding skin, increasing size of the wound, large amount of drainage, and fever. If you notice any of these changes please call your PCP or call [phone] to be seen at [facility] becauseyou may need further medical evaluation . Advance Directive:None I personally spent44 minutes in discharge planning. Extensive conversation at bedside this afternoon regarding long-term plans for J-tube. Shelley expressed interest in removal, and asked if we could remove her J tube before discharge. Given her reported history of dehydration requiring enteral feeding in the past, I suggested she discuss her goals further with her primary care physician. She stated that the tube was placed for gastroparesis, which progressively worsened over the years since diagnosis. Now, however, she feels that the J tube is prone to frequent malfunction and discomfort, and expressed an interest in retrying oral feeding/hydration. We reviewed possible options, including referral to speech therapy, feeding clinics (if available for adults) and possible referral to a motility clinic. [facility] and [facility] both have pediatric motility programs, but given Shelley is 23, may not be able to establish with those practices. I encouraged her to pursue referral, however, since if they could not accept her as a new patient, they may direct her to an adult motility clinic in the region. AGD [1]IR Jejunostomy Tube Change; MD Donnell, Smith Néstor 01/06/2024 18:54 EDT [2]XR Abdomen 1 View; MD Chinchilla Jonelle M 01/08/2024 17:26 EDT Electronic Signature on File Electronically Reviewed/Signed by: Nino Hameed MD Author Signature Dt/Tm:01/10/2024 02:56 PM Resident Division of Internal Medicine Electronically Reviewed/Signed by: Tomás Leal MD Cosigner Signature Dt/Tm: 01/12/2024 08:37 AM Department of Pediatrics TV Facility Discharge Instructions * MD Yoseph, Nino: PERFORM, MODIFY, MODIFY, MODIFY Event Display: Facility Discharge Instructions Authored Date: [id number] ELIF LEVY :2000 Visit Date:01/05/2024 Facility Discharge Instructions [facility] For medical concerns, call: . Date of Admission:01/05/2024 Date of Discharge:01/10/2024 Physician:MD Mel, Tomás Service:Internal Medicine Discharge Disposition:[facility] Primary Care Provider/Phone: FABI WILLIS, KINJAL BRITT (BUSINESS) [phone] (FAX BUSINESS) . Advance Directive:None Reason for Hospitalization Jejunostomy tube site pain Your Diagnoses Jejunostomy tube site pain My Health Patient Portal: [facility] makes it easy for you to manage your health information online. My [facility] is a free service that provides you instant, secure access to your medical information anytime, anywhere. Sign in or set up your account today at [email or web address] Thank you for allowing us to assist you with your healthcare needs. If you need additional community resources, [facility] [employer] can help at https://www.pa211.org. 211 can assist you in connecting with social programs based on your unique needs and locations. 211 is an anonymous search that can help you locate resources for: Food, Housing, Transportation, Goods, Education and Healthcare. Hospital Course 23-year-old femalewith historyof gastroparesisdiagnosed over 8 years ago(status postJ[facility]tube placementin [facility] 2022)who [facility]secondary toright-sided abdominal painand[facility] possibleJ- tubedisplacement. #J-tubeballoon malfunction #Concerning for infection at J-tube site Pt continue to be afebrile, no leukocytosis, stable vital signs to suggest systemic infection.Workupcompletedat outside facility without immediate concerns other than potential J tube malfunction. She underwenttube exchange on 01/06/2024. There was concern for possible infection per radiology while evaluatingpt's J-tube secondary to unusual tenderness at the site. She was started onIV Unasyn 1g q8h(01/05 -01/09) andto be transitioned to Augmentinfor a total of 7 days Exam on Discharge Vitals & Measurements: T:35.7C TMIN:35.7C TMAX:36.4C HR:71(Monitored) RR:16 BP:119/84 SpO2:99% Oxygen Therapy:Room Air Gen: NAD, alert Eyes: PERRL, EOMI Mouth: moist mucus membranes Neck: supple CV: RR, no murmur, normal S1, S2 Resp: CTAB Abd: Mild tenderness on the right side, J-tube in place, no rebound, no guarding; No hepatosplenomegaly Ext: no edema Neuro: no gross deficit Medications Patient is enrolled in Rx-to-Go Program New medications will be delivered from [facility] to patient's room at discharge: Mon-Sun from 9AM-5 PM. Medications MUST be PICKED UP at [facility] if patient is discharged Mon-Sun after 5 PM or anytime on holidays. Please note, the [facility] closes at 8 PM on weekdays and 5:30 PM on Saturdays, Sund, and holidays. What How Much When Instructions Next Dose New amoxicillin-clavulanate (Augmentin 400 mg-57 mg/ 5 mLoral liquid) 5 Milliliter by J-tube 2 times daily start on 0600 01/11/2024 New ampicillin-sulbactam (Unasyn) 3 gram intravenously Every 6 hours stop [id number] 01/10/2024 New bifidobacterium-lactobacillus (Florajen Digestion) 1 cap by mouth Once daily New naproxen (naproxen 375 mg oral tablet) 1 tab(s) by J-tube 2 times daily Changed oxyCODONE (oxyCODONE 5 mg oral tablet) 5 Milligram by mouth Every 6 hours as needed for as needed for pain Changed oxyCODONE (oxyCODONE 5 mg/ 5 mL oral solution) 5 Milligram by J-tube Every 4 hours as needed for pain - severe (7-10) Unchanged acetaminophen (Tylenol 325 mg oral tablet) 2 tab(s) by mouth Every 6 hours as needed for fever/mild pain (1-3) Unchanged lansoprazole (Prevacid 15 mg oral delayed release capsule) 2 cap by mouth Once daily Duration: 30 Days Unchanged norethindrone (norethindrone 5 mg oral tablet) 1 tab(s) by mouth Once daily Unchanged ondansetron (ondansetron 4 mg oral tablet, disintegrating) 1 tab(s) by mouth 3 times daily as needed for as needed for nausea/vomiting Duration: 5 Days What How Much When Comments Stop Taking ketorolac (ketorolac 10 mg oral tablet) 1 tab(s) by mouth Every 6 hours as needed for as needed for pain Stop Taking phenazopyridine (Pyridium 200 mg oral tablet) 1 tab(s) by mouth 3 times daily as needed for as needed for urinary discomfort Duration: 3 Days Allergies droPERidol (Moderate)Other Benadryl (Mild)Restlessness Reglan (Mild)Restlessness compositae derivatives (Mild)Restlessness Haldol"psych reaction" diphenhydrAMINEUnspecified hydrOXYzineOther iodinated radiocontrast dyesNausea metoclopramideHallucinations prochlorperazineHallucinations What to do next Instructions From Your Doctor INSTRUCTIONS FOR FACILITY Follow up appointments: Keep all your follow up appointments as already scheduled. You will follow up with the physician at the admitting hospital. Have the physician at the facilityrequested appointment with your primary care provider within 1 week of discharge. You were admitted to [facility] for treatment of J-tube displacement by Interventional Radiology. Your J-tube was replaced on 01/06/2024. There was concerning for infection around the site of your J-tube for which we started IV Unasyn (01/05 - 01/09) and to be transitioned to Augmentin via J-tube (01/10-01/11)for 7day course total. Restarted tube feed with goal of 85 cc/hourand 1L/dayoffree water repletion through J-tube. Continue chronic painmanagement with Oxycodone 5 mg solution through J-tube. Zofran4 mg q6h as needed for nausea. If there are any tests with pending results at the time of your discharge, please have your primarycare physician follow up with the results at the time of your next office visit. Medications: Please review your medications and ask your physician if you have any questions. Your medication list has been reviewed and reconciled upon discharge to ensure accuracy and continuity of care. You are provided with a list of all your current medications at this time. Please review closely and make note of any changes. Take all of your medications exactly as prescribed. Tell your primary care provider if you cannot afford your medications. Call your primary care provider if you are having any side effects or any other problems. Call your primary care provider before taking any over the counter medications or supplements, including herbals and vitamins, because some of these may interact with your current medications and/or make your symptoms worse. Finish the course of your antibiotics:2more days of Augmentinfor a total of 7 days. Your lastday will be 01/12/2024.Finish the prescription even if you feel better. The minimum amount of antibiotic you took to make you may feel better may have killed only the most susceptible bacteria. Thus, this leaves the hardiest bacteria to survive and multiply. Never share or take leftover antibiotics. PREVENTING PRESSURE WOUNDS: Keep the skin dry and clean For immobile patients it is important to reposition every two hours WOUND CARE: Monitor for signs and symptoms of infection, which may include: increasing redness of the surrounding skin, increasing size of the wound, large amount of drainage, and fever. If you notice any of these changes please call your PCP or call [phone] to be seen at [facility] becauseyou may need further medical evaluation If you notice the following symptoms CALL YOUR DOCTOR: Please call your primary care provider for symptoms including, but not limited to: fevers (temperatures >100.4 degrees F or 38.1 degrees C), chills,non-stop nausea or vomiting, diarrhea, rash, shortness of breath, bleeding, pain, or if you experience any worsening of the symptoms that brought you to the hospital. ForEMERGENCYandVERY SERIOUShealth-related issues, such as chest pain, worsening shortness of breath, bleeding, or sudden onset of the symptoms that brought you to the hospital, you may need to [id number] go directly to theEmergency Room. Contact the [facility] Careline at . If unable to contact your physician and you feel it is an emergency, go to the nearest Emergency Room or call 911 Diet Instructions 1. Goal tube feeding remains Isosource 1.5 @ 85 mL/hr for continuous infusion. 2. For cycled feeding infusion, 95 mL/hr over 12 hours. 3. Supplemental water 1000 mL per day in divided portions, if she cannot drink sufficient volume offluid. Activity Instructions You may resume your previous home activities, but go slowly and pace yourself as tolerated. Always take fall precautions, and ask for assistance as you regain your strength, coordination, and endurance. Follow-Up Appointments You Need to Schedule the Following Appointments Follow Up FABI Ernandez, Kinjal Britt When:Within 1 to 2 weeks Where:[facility] [address] [id number]- Additional Information: Call your doctor to make an appointment Test Results Test Name Test Result Date/Time Na 141 mmol/L 01/05/2024 16:28 EDT K 3.9 mmol/L 01/05/2024 16:28 EDT Cl- 106 mmol/L 01/05/2024 16:28 EDT HCO3 24 mmol/L 01/05/2024 16:28 EDT Anion Gap 11 mmol/L 01/05/2024 16:28 EDT BUN 8 mg/dL 01/05/2024 16:28 EDT Cret 0.67 mg/dL 01/05/2024 16:28 EDT eGFR CKD-EPI >90 mL/min/1.73 m2 01/05/2024 16:28 EDT Glu 87 mg/dL 01/05/2024 16:28 EDT Ca 9.3 mg/dL 01/05/2024 16:28 EDT WBC 5.73 K/uL 01/10/2024 06:23 EDT WBC 4.52 K/uL 01/05/2024 16:28 EDT Hgb 12.4 g/dL 01/10/2024 06:23 EDT Hgb 12.9 g/dL 01/05/2024 16:28 EDT Hct 35.3 % 01/10/2024 06:23 EDT Hct 35.8 % 01/05/2024 16:28 EDT RBC 3.93 M/uL 01/10/2024 06:23 EDT RBC 4.11 M/uL 01/05/2024 16:28 EDT MCV 89.8 fL 01/10/2024 06:23 EDT MCV 87.1 fL 01/05/2024 16:28 EDT MCHC 35.1 g/dL 01/10/2024 06:23 EDT MCHC 36.0 g/dL 01/05/2024 16:28 EDT MCH 31.6 pg 01/10/2024 06:23 EDT MCH 31.4 pg 01/05/2024 16:28 EDT RDW 12.0 % 01/10/2024 06:23 EDT RDW 11.8 % 01/05/2024 16:28 EDT Plts 251 K/uL 01/10/2024 06:23 EDT Plts 244 K/uL 01/05/2024 16:28 EDT MPV 10.4 fL 01/10/2024 06:23 EDT MPV 10.4 fL 01/05/2024 16:28 EDT INR 1.0 01/05/2024 16:28 EDT PT 13.1 seconds 01/05/2024 16:28 EDT ALT 11 unit/L 01/05/2024 16:28 EDT T Bili 0.3 mg/dL 01/05/2024 16:28 EDT Alk Phos 70 unit/L 01/05/2024 16:28 EDT AST 15 unit/L 01/05/2024 16:28 EDT Alb 4.0 g/dL 01/05/2024 16:28 EDT Prot 7.0 g/dL 01/05/2024 16:28 EDT Tests Pending None Procedures Performed J-tube exchange on 01/06/2024 Nursing Assessment Line: Subcutaneously implanted catheter (e.g. Mediport) Chest, Right Insert Date:01/05/24 14:26 (No insertion activity documented) Removal Date:No Removal Currently Documented. SPECIAL NEEDS: Sensory Deficits: None Level of Consciousness Neuro: Alert Neurological Symptoms: None ADLS: Independent Last BM: 01/09/2024 Basic Skin Assessment: Warm, Dry, Intact Special Instructions Common Emergency Awareness Tips Call 911 immediately if: experiencing any of the warning signs and symptoms of stroke: B.E. F.A.S.T. Balance: is there trouble with walking or coordination Eyes: is there double vision or visual loss Face: Smile, do both sides of face move equally Arm: Raise arms, do both arms move equally Speech: Is speech slurred or inappropriate Time: Time is critical, call 911 immediately Heart Attack Signs Chest discomfort: Most heart attacks involve discomfort in the center of the chest and lasts more than a few minutes, or goes away and comes back. It can feel like uncomfortable pressure, squeezing, fullness or pain. Discomfort in upper body: Symptoms can include pain or discomfort in one or both arms, back, neck, jaw or stomach. Shortness of breath: With or without discomfort. Other signs: Breaking out in a cold sweat, nausea, or lightheaded. Remember, MINUTES DO MATTER. If you experience any of these heart attack warning signs, call [id number]- to get immediate medical attention! Education Materials How to Use a Aubrey Bag to Give a Tube Feeding, Adult A feeding tube is a soft, flexible tube used to give medicine, water, and liquid food. A person mayneed a feeding tube if they have trouble swallowing or cannot have food or medicine by mouth. The tube is put right into the stomach. The following information gives steps on how to use gravity to deliver liquid food (formula) from a feeding bag into your feeding tube. Supplies needed: Prescribed formula. Make sure the formula is at room temperature before using it. Aubrey feeding bag and tubing set. Pole to hang feeding bag. How to give a feeding using the gravity method Prep yourself 1. Wash your hands with soap and water for at least 20 seconds. 2. Have all supplies ready and near you. 3. Prop yourself up with pillows or sit up at a 3045 degree angle or higher. Stay upright during the feeding and for at least 3060 minutes after the feeding ends. This can help prevent reflux or nausea. Fill feeding bag and feeding set tubing with formula 1. Close the clamp on the feeding set tubing. 2. Pour the prescribed amount of formula into the feeding bag. If you have a dsxia-ro-umnd formula container, connect a tubing set to it. 3. Hang the bag, with the tubing attached, on the pole. Formula prepared in a germ- free (sterile) way can hang for up to 8 hours, or as noted in the baggage smasher's instructions. 4. Fill the feeding set tubing with formula. To do this: Loosen or take off the cap at the end of the feeding set tubing. Open the clamp on the tubing. Let the formula go through to the end of the tubing. Close the clamp on the tubing. Put the cap back on the tubing. Prep your feeding tube 1. Take the cap off of your feeding tube. If you have a button instead of a tube, put the adapter intoit. 2. Open the clamp on your feeding tube. 3. Flush and check placement of your feeding tube as told. 4. Clamp your feeding tube. Deliver feeding 1. Take the cap off the feeding set tubing. 2. Connect the feeding set to yourfeeding tube. 3. Open the clamp on yourfeeding tube. 4. Using the roller clamp on the feeding set tubing, adjust the drip so the formula goes in over the right amount of time. 5. After all of the formula has gone in, clamp the feeding set tubing. 6. Clamp yourfeeding tube. Disconnect the feeding set from your feeding tube 1. Disconnect the feeding set tubing from yourfeeding tube. 2. Flush yourfeeding tube as told. 3. Clamp yourfeeding tube. You must close or clamp yourtube to: Keep it from leaking. Keep air from getting into your stomach. 4. Put the cap back on the end of your feeding tube. Keep a cap on yourtube to keep germs from gettingin it. 5. Take the feeding bag off the pole. Throw it away or clean it as told. 6. Wash your hands with soap and water for at least 20 seconds. Follow these instructions at home: General instructions Use, clean, and reuse feeding tube equipment only as told by your health care provider. You can store any unused, open formula in the refrigerator for up to 24 hours. Follow your health care provider's instructions on how and when to vent or open your feeding tube. Contact a health care provider if: You are having trouble doing a tube feeding. You do not know what type of formula to use. Your feeding tube is clogged, comes out, or does not work. You have any of these problems: Nausea or vomiting. Fever. Constipation or diarrhea. A large, bloated stomach. You have any questions or concerns about your feeding tube, your feedings, or your feeding plan. This information is not intended to replace advice given to you by your health care provider. Make sure you discuss any questions you have with your health care provider. Document Revised: 12/29/2022 Document Reviewed: 12/03/2022 [employer] Patient Education 2022 [employer]. Anesthesia records * Services, CPDI: PERFORM Event Display: Sedation & Analgesia Record Authored Date: [id number] Patient Care team information Care Team Personnel Name: FABI Willis Tasha Leah Position: Referring Member Role: Primary Care Provider Address: [address] [address] Name: Roselia Wasserman Christine A Position: Pharmacist Member Role: Pharmacy - Lifetime Name: Roselia Manzo Erika Joy Position: Pharmacist Member Role: Pharmacy - Lifetime Name: Roselia Thompson Ann Position: Pharmacist Member Role: Pharmacy - Lifetime Name: Tania Valderrama Position: HIS Supervisor_P Member Role: HIS Lifetime Name: Roselia Garcia Jennifer Position: Pharmacist Member Role: Pharmacy - Lifetime Name: Roselia Velásquez Kyle Position: Pharmacist Member Role: Pharmacy - Lifetime Address: [address] [place] [id number] Name: Roselia Pastrana Brittani Position: Pharmacist Member Role: Pharmacy - Lifetime Name: Pily Sheikh Position: HIS Supervisor_P Member Role: HIS Lifetime Care Team Related Persons Name: [place] Name: [place] Name: MAHAMED LEVY
--- OUTSIDE RECORDS SUMMARY | 2024-03-16 22:20 | External Medical Summary ---
Author Name Unknown Address Unknown Organization K1[facility] - [address] [place] [address] Laboratory Report Ordering Provider Test Date Status KASANDRA DELGADO 01/29/2024 03:45:35 Final Observation Date Value Abnormality Reference (Units ) Status Color of Urine by Auto 01/29/2024 03:45:35 Yellow Light Yellow, Yellow, Dark Yellow Final Clarity, Urine 01/29/2024 03:45:35 Clear Clear Final Glucose [Mass/volume] in Urine by Automated test strip 01/29/2024 03:45:35 Negative Negative (mg/dL) Final Bilirubin.total [Presence] in Urine by Automated test strip 01/29/2024 03:45:35 Negative Negative Final Ketones [Mass/volume] in Urine by Automated test strip 01/29/2024 03:45:35 Negative Negative (mg/dL) Final Specific gravity, Urine 01/29/2024 03:45:35 1.023 1.003-1.030 Final Hemoglobin [Presence] in Urine by Automated test strip 01/29/2024 03:45:35 Negative Negative Final pH, Urine 01/29/2024 03:45:35 7.0 5.0-7.5 (Units) Final Protein [Mass/volume] in Urine by Automated test strip 01/29/2024 03:45:35 Negative Negative (mg/dL) Final Urobilinogen [Mass/volume] in Urine by Automated test strip 01/29/2024 03:45:35 0.2 0.2, 1.0 (mg/dL) Final Nitrite [Presence] in Urine by Automated test strip 01/29/2024 03:45:35 Negative Negative Final Leukocyte esterase [Presence] in Urine by Automated test strip 01/29/2024 03:45:35 Negative Negative Final Annotation Comment 01/29/2024 03:45:35 Final Screen negative - Microscopi c not performed. Performing Location [facility] - [address] [place] [address]
--- OUTSIDE RECORDS SUMMARY | 2024-03-16 22:20 | External Medical Summary | Summary of Care ---
Author Name Unknown Organization [facility] Address [address] [place] [address] Phone [phone] Care Team Providers Care Catalyst Manufacturing Operator Name Role Phone Kinjal Reynoso PA-C Primary Care Provider [phone] Reason for Visit * Reason Comments Medication Refill Encounter Details Date Type Department Care Team (Late st Contact Info) Description 01/19/2024 Refill [facility] [address] [place] [address] Kinjal Reynoso PA-C [address] [facility] [place] [address] Gastroparesis; Chronic pelvic pain in female; [...] as of this encounter (statuses as of 01/21/2024) Medications Medication Sig Dispensed Refills Start Date End Date Status Naloxone HCl 4 MG/0.1ML Nasal Liquid (Narcan Nasal)Indications:Ch ronic pelvic pain in female,MEDICATION USE AGREEMENT,Chronic abdominal pain ADMINISTER 1 SPRAY INTO 1 NOSTRIL FOR SUSPECTED OPIOID OVERDOSE - SEEK IMMEDIATE MEDICAL ATTENTION. [email or web address] 2 Each 3 03/31/2023 Active Polyethylene Glycol [...] as directed, through J-tube via feeding pump. 64653 mL 11 10/05/2023 Active Peptamen AF Oral Liquid Administer 1,000 mL over 12 hours into J tube 4 times a day. 36083 mL 11 09/30/2023 09/24/2024 Active Enteral Feeding [...] must last 14 days 14 Tablet 01/20/2024 02/03/2024 Active documented as of this encounter (statuses as of 01/21/2024) Active Problems Problem Noted Date Diagnosed Date [...] as of this encounter (statuses as of 01/21/2024) Resolved Problems Problem Noted Date Diagnosed Date [...] as of this encounter (statuses as of 01/21/2024) Immunizations Name Administration Dates Next Due DTaP [...] Miscellaneous Notes * Telephone Encounter - Shannan Díaz, [facility] - 01/20/2024 4:37 AM EDT Postponing until 01/20 I have reviewed the patients controlled substance dispensing history in the Prescription Drug Monitoring Program in compliance with the [facility] regulations before prescribing a controlled substance. PDMP checked on 01/20/2024. Pending Prescriptions: Disp Refills oxyCODONE HCl 5 MG Oral Tablet (Oxy IR) 28 Tab*0 Sig: Take 1 Tablet by mouth in the morning and 1 Tablet before bedtime. DO NOT TAKE MORE THAN 2 DOSES A DAY. Rx must last 14 days. Last Visit: 12/24/2023 (in office), 09/10/2022 (telemedicine) Next Visit: 03/25/2024 Date medication was last filled: 01/10 Date medication is due for refill: 01/24 Pharmacy: [facility] Is this request for a [...] Clinical Pharmacist [facility] ([facility]) 01/20/2024, 4:37 AM documented in this encounter Plan of Treatment Upcoming Encounters Date Type Department Care Team (Late st Contact Info) Description 03/25/2024 9:20 AM EDT Office Visit [facility] [place] [address] [phone] Kinjal Reynoso PA-C [address] [phone] [...] this encounter Medical Devices Implanted Type Area Human Resources Assistant Manager Device Identifier Shelf Expiration Date Model / Serial / Lot Port Implant W/8f Poly Cath - [id number] Implanted:Qty : 1 on 05/18/2023 by Juan Jose Connell DO at [facility] Right: Chest CR BARD : [employer] [id number] 11/18/2024 [id number] / / [id number] documented as of this encounter Visit Diagnoses [...] Advance Directives occurred with: Patient Care Teams Catalyst Manufacturing Operator Relationship Specialty Start Date End Date Kinjal Reynoso PA-C [address] [address] PCP - General Physician Radiology Teacher 11/05/22 documented as of this encounter
--- OUTSIDE RECORDS SUMMARY | 2024-03-16 22:20 | External Medical Summary ---
Author Name Unknown Address Unknown Organization K1F[facility] - [address] [place] [address] Laboratory Report Ordering Provider Test Date Status KASANDRA DELGADO 01/29/2024 02:56:17 Final Observation Date Value Abnormality Reference (Units ) Status Lactic Acid 01/29/2024 02:56:17 0.7 0.4-2.0 (mmol/L) Final Performing Location [facility] - [address] [place] [address]
--- OUTSIDE RECORDS SUMMARY | 2024-03-16 22:20 | External Medical Summary | Continuity of Care Document ---
Author Name Unknown Organization [facility] Address [address] [place] [id number] Care Team Providers Care Cartoonist Special Effects Name Role Phone Kinjal Willis Primary Care Physician [phone] Encounter [facility] DENNIS [id number] Date(s): 01/05/24 - 01/10/[address] [phone] Encounter Diagnosis Jejunostomy tube site pain(Discharge Diagnosis) - 01/05/24 Discharge Disposition: Other Type Healthcare Facility Attending Physician: MD Leal Alexander Admitting Physician: MD Leal Alexander Referring Physician: MD Gamaliel, [facility] Andrez Allergies, Adverse Reactions, Alerts Substance Criticality Severity Reaction Reaction Severity Status diphenhydrAMINE 1 Unspecified Active metoclopramide 2 Hallucinations Active prochlorperazine 3 Hallucinations Active hydrOXYzine 4 Other Active iodinated radiocontrast dyes Nausea Active Haldol "psych reaction" Act landry Benadryl Unable to assess criticality Mild Restlessness Active Reglan Unable to assess criticality Mild Restlessness Active compositae derivatives Unable to assess criticality Mild Restlessness Active droPERidol 5 Unable to assess criticality Moderate Other Active 1Outside Source Comment: Us 2Outside Source Comment: Gets very agitated 3Outside Source Comment: Gets very agitated 4Outside Source Comment: %22restless legs%22 5Outside Source Comment: %22psych reactions%22 per patient Functional Status 01/10/24 Neurological Symptoms None ADLs [...] 0, PRN: as needed for nausea/vomiting, Pharmacy: [facility] Start Date: 03/25/23 Stop Date: 03/30/23 Status: [...] Daily, Disp# 60 cap, Refills: 0, Pharmacy: [facility] Start Date: 03/25/23 Stop Date: 04/24/23 Status: Ordered Tylenol 325 mg oral tablet Start: 03/25/23 7:55:00 AM EDT, 2 tab, PO, q6h, PRN: fever/mild pain (1-3) Start Date: 03/25/23 Status: Ordered Unasyn Start: 01/10/24 1:14:00 PM EDT, 3 g =, IV, q6h Start Date: 01/10/24 Status: Ordered Mental Status 01/10/24 Primary Language [place] Citizen Problem List Condition Confirmation Course Effective Dates [...] B [NIAB] No Influenza B detec carlos manuel 2 (01/08/24 12:39 PM) RSV [NRSVD] No [...] is approximately 98% Patients being admitted to [facility] should also have the RVP assay ordered. 2Result Comment: A negative result does not rule out the possibility of influenza infection as the sensitivity of this test is approximately 98% Patients being admitted to [facility] should also have the RVP assay ordered. 3Result Comment: A negative result does not rule out the possibility of RSV infection as the sensitivity of this test is approximately 98% Patients being admitted to [facility] should also have [...] valves). 9Result Comment: Test results reported to [place] [facility] This assay has been granted an Emergency Use Authorization (EUA) by the U.S. Food and Drug Admimistration. The performance of the assay (ROI² by PCR) has been verified by the [facility]. Radiology Reports * Exam [...] interpreted by the attending radiologist. Workstation ID: [id number] Final Dictated by:DO Villa Alex Dictated DT/TM:01/08/2024 [...] either G or J port. Workstation ID: [id number] Final Dictated by:MD Jacobo Benjamin David Dictated [...] EXAMINATION: CT abdomen and pelvis performed at [facility] CLINICAL HISTORY: evaluation of J tube COMPARISON: Subsequent radiographs of the abdomen. Preceding CT from 12/31/2023 TECHNIQUE: CT abdomen and pelvis images without IV contrast were acquired at an outside hospital dated 01/02/2024 and submitted for secondary interpretation at [facility]. No additional scanning [...] tract superficially. Infectious or inflammatory. Workstation ID: [id number] Final Dictated by:MD Ellison Kathryn L Dictated [...] Display: Pre-OP H & P Authored Date: [id number] PRE-OPERATIVE HISTORY AND PHYSICAL Name: ELIF LEVY Patient Number: [id number] : 2000 Date of Service: 01/06/2024 Interventional Radiology Pre-procedure History and Physical Patient Name: ELIF LEVY Date Of : 2000 Medical Record: [id number] Date of Service: 2024-01-06 Planned Procedure: IR Jejunostomy Tube Change Reason For Consult: GI: Jejunostomy Tube Change/Reinsertion History of Present Illness: 23 year old F w/ gastroparesis s/p G tube placement 01/2023 presenting as transfer from [facility] for J tube dislodgement. Requesting tube change/reinsertion. Past Medical and Surgical History: Endometriosis, Pelvic pain, Post concussive syndrome, PTSD (post-traumatic stress disorder), Laparoscopy| Service Date: 11/05/2020, Mirena IUD Insertion| Service Date: 2018, Laparoscopy| Service Date: 2018, Laparoscopic hysterectomy, Allergies: [...] tube placement 01/2023 presenting as transfer from [facility] for partial J tube dislodgement. Requesting tube change/reinsertion. Plan: Sedation / Anesthesia Plan: Moderate Sedation Consent by Patient Electronic Signature on File Electronically Reviewed/Signed by: Smith Jacobo MD Author Signature Dt/Tm:01/06/2024 06:17 PM Division of Interventional Cardiology [facility] * MD Leal Alexander: MODIFY MD Leal Alexander: MODIFY, MODIFY, MODIFY, MODIFY, MODIFY, PERFORM, MODIFY MD Hameed Tuan: MODIFY Event Display: H&P Authored Date: [id number] Name:ANA LEVYJUVENTINO Dwayne Patient Number:[id number] :2000 Date of Service:01/05/2024 Chief Complaint Transfer from [facility] to concern for J-tube malfunction (balloonwas possiblydeflated) History of Present Illness 23-year-old femalewith historyof gastroparesisdiagnosed over 8 years ago(status postJ-tube placementin [facility]2022)who presents [facility] 12/31/2023secondary toright-sided abdominal pain. According to the patient,since 2 days ago,her J-tubestarted moving out of position. Patient statesimages were takenbefore and after this event, showing"they saw the balloon with the first imagesbut not the second time." Patient was transferred to [facility] IR service to evaluate the J-tube's functioning [...] in placewithouterythema, warmthordrainagefrom exiting site. [facility]. Review of [...] gastroparesisdiagnosed over 8 years ago(status postJ-tube placementin [facility]2022)who presents [facility] 12/31/2023secondary toright-sided abdominal painand[facility] possible[facility]- tubedisplacement. #J-tubeballoon malfunction -ObtainCBC with [...] formulated with the attending of record MD Ross Alexander, who agrees with the plan above unless otherwise indicated. Attending Addendum I discussed the case with Dr. Hameed, reviewed pertinent history, and performed ford portions of the history and physical exam independently. I agree with their documentation as above, with the exception of my own findings, noted below: As noted above, transferred from [facility] for J-tube evaluation and consultation with interventional radiology.Will pursueinterventional evaluation,andcontinue to managehydrationand pain. _ _ Tomás Leal M.D. Rn Medical Surgical of Pediatrics & Internal Medicine [facility] [id number] Problem List/Past Medical History Ongoing Endometriosis [...] Internal Medicine TV .D/C Summary * MD Leal Alexander: MODIFY MD Leal Alexander: MODIFY, MODIFY, MODIFY, MODIFY, MODIFY, MODIFY MD Hameed Tuan: MODIFY Event Display: .D/C Summary Authored Date: [id number] [facility] For medical concerns, call: . Address: [address] [place] [address] [id number] (MOBILE) :2000 . Date of Admission:01/05/2024 Date of Discharge:01/10/2024 Physician:MD Leal Alexander Service:Internal Medicine Discharge Disposition: Primary Care Provider/Phone: FABI WILLIS, KINJAL BRITT (BUSINESS) [phone] (FAX BUSINESS) Principal Diagnosis: Jejunostomy tube site [...] gastroparesisdiagnosed over 8 years ago(status postJ-tube placementin [facility] 2022)who presents [facility] 12/31/2023secondary toright-sided abdominal pain. According to the patient,since 2 days ago,her J-tubestarted moving out of position. Patient statesimages were takenbefore and after this event, showing"they saw the balloon with the first imagesbut not the second time." Patient was transferred to [facility] IR service to evaluate the J-tube's functioning [...] in placewithouterythema, warmthordrainagefrom exiting site. [facility] evaluation and treatment ofJ-tube displacement. Hospital Course: 23-year-old femalewith historyof gastroparesisdiagnosed over 8 years ago(status [facility] toright-sided abdominal painand[facility]arding possibleJ- tubedisplacement. #J-tubeballoon malfunction #Concerning for [...] Britt When:Within 1 to 2 weeks Where:[facility] [address] [id number]- Additional Information: Call your doctor to make [...] week of discharge. You were admitted to [facility] for treatment of J-tube displacement by Interventional [...] changes please call your PCP or call [phone] to be seen at [facility] becauseyou may need [...] and possible referral to a motility clinic. [facility] and [facility] both have pediatric motility programs, but given Shelley is 23, may not be able to establish with those practices. I encouraged her to pursue referral, however, since if they could not accept her as a new patient, they may direct her to an adult motility clinic in the region. AGD [1]IR Jejunostomy Tube Change; MD Donnell, Smith Palm 01/06/2024 18:54 EDT [2]XR Abdomen 1 View; [...] Event Display: Facility Discharge Instructions Authored Date: [id number] ELIF LEVY :2000 Visit Date:01/05/2024 Facility Discharge Instructions [facility] For medical concerns, call: . Date of Admission:01/05/2024 Date of Discharge:01/10/2024 Physician:MD Leal Alexander Service:Internal Medicine Discharge Disposition:[facility] Primary Care Provider/Phone: FABI WILLIS TASHA LEAH (BUSINESS) [phone] (FAX BUSINESS) . Advance Directive:None Reason for Hospitalization Jejunostomy tube site pain Your Diagnoses Jejunostomy tube site pain My Health Patient Portal: [facility] [employer] makes it easy for you to manage your health information online. My [facility] [employer] is a free service that provides you instant, secure access to your medical information anytime, anywhere. Sign in or set up your account today at [email or web address] Thank you for allowing us to assist you with your healthcare needs. If you need additional community resources, [employer] can help at [email or web address]. 211 can assist you in connecting with social programs based on your unique needs and locations. 211 is an anonymous search that can help you locate resources for: Food, Housing, Transportation, Goods, Education and Healthcare. Hospital Course 23-year-old femalewith historyof gastroparesisdiagnosed over 8 years ago(status postJ-tube placementin [facility] 2022)who presents [facility] 12/31/2023secondary toright-sided abdominal painandtransfer[facility]arding possibleJ- tubedisplacement. #J-tubeballoon malfunction #Concerning for [...] Program New medications will be delivered from [facility] to patient's room at discharge: Mon-Sun from 9AM-5 PM. Medications MUST be PICKED UP at [facility] if patient is discharged Mon-Sun after 5 PM or anytime on holidays. Please note, the [facility] closes at 8 PM on weekdays and 5:30 PM on Saturdays, Sund, and holidays. What How Much When Instructions Next Dose New amoxicillin-clavulanate (Augmentin 400 mg-57 mg/ 5 mLoral liquid) 5 Milliliter by J-tube 2 times daily start on 0600 01/11/2024 New ampicillin-sulbactam (Unasyn) 3 gram intravenously Every 6 hours stop [id number] 01/10/2024 New bifidobacterium-lactobacillus (Florajen Digestion) 1 cap [...] week of discharge. You were admitted to [facility] for treatment of J-tube displacement by Interventional [...] changes please call your PCP or call [phone] to be seen at [facility] becauseyou may need [...] to the hospital, you may need to [id number] go directly to theEmergency Room. Contact the [facility] Careline at . If unable to contact [...] Britt When:Within 1 to 2 weeks Where:[facility] [address] [address]- Additional Information: Call your doctor to make [...] attention! Education Materials How to Use a Mendon Bag to Give a Tube Feeding, Adult [...] is at room temperature before using it. Mendon feeding bag and tubing set. Pole to [...] the feeding bag. If you have a [id number] formula container, connect a tubing set to it. 3. Hang the bag, with the tubing attached, on the pole. Formula prepared in a germ- free (sterile) way can hang for up to 8 hours, or as noted in the keyboard operator's instructions. 4. Fill the feeding set tubing [...] provider. Document Revised: 12/29/2022 Document Reviewed: 12/03/2022 [employer] Patient Education 2022 [employer]. Anesthesia records * Services, CPDI: PERFORM Event Display: Sedation & Analgesia Record Authored Date: [id number] Patient Care team information Care Team Personnel Name: FABI Willis Tasha Leah Position: Referring Member Role: Primary Care Provider Address: [place] [phone] Name: Roselia Wasserman Christine A Position: Pharmacist [...] Pharmacist Member Role: Pharmacy - Lifetime Address: [address] [place] [id number] Name: Roselia Pastrana Brittani Position: Pharmacist Member Role: Pharmacy - Lifetime Name: Pily Sheikh Position: HIS Supervisor_P Member Role: HIS Lifetime Care Team Related Persons Name: ÓSCAR LAKE Name: ÓSCAR LAKE Name: MAHAMED LEVY
--- OUTSIDE RECORDS SUMMARY | 2024-03-16 22:20 | External Medical Summary | Summary of Care ---
Author Name Unknown Organization [facility] Address [address] [place] [address] Phone [phone] Care Team Providers Care Installer Apprentice Name Role Phone Kinjal Reynoso PA-C Primary Care Provider [phone] Reason for Visit * Reason Comments Abdominal Pain * Auth/Cert Specialty Diagnoses / Procedures Referred By Contdulce t Referred To Contact [facility] [address] [place] [address] Phone: [phone] Emergency Medicine [facility] [address] [place] [address] Referral ID Status Reason Start Date Expiration Date Visits Re quested Visits Authorized [id number] Encounter Details Date Type Department Care Team ([facility] Contact Info) Description 01/29/2024 1:49 AM EDT - 01/29/2024 7:37 AM EDT Emergency [facility] Emergency Department (GL) [address] [place] [address] Zachery Morales, DO [address] [place], [place] [phone] Ezequiel Jessica, DO [address] [place] [id number] Discharge Disposition: Short Term Hospital Allergies Active Allergy Reactions Criticality Noted Date [...] as of this encounter (statuses as of 01/29/2024) Medications Medication Sig Dispensed Refills Start Date End Date Status Naloxone HCl 4 MG/0.1ML Nasal Liquid (Narcan Nasal)Indications:Ch ronic pelvic pain in female,MEDICATION USE AGREEMENT,Chronic abdominal pain ADMINISTER 1 SPRAY INTO 1 NOSTRIL FOR SUSPECTED OPIOID OVERDOSE - SEEK IMMEDIATE MEDICAL ATTENTION. [email or web address] 2 Each 3 03/31/2023 Active Polyethylene Glycol [...] as directed, through J-tube via feeding pump. 28982 mL 11 10/05/2023 Active Peptamen AF Oral Liquid Administer 1,000 mL over 12 hours into J tube 4 times a day. 13995 mL 11 09/30/2023 09/24/2024 Active Enteral Feeding [...] as of this encounter (statuses as of 01/29/2024) Active Problems Problem Noted Date Diagnosed Date [...] as of this encounter (statuses as of 01/29/2024) Resolved Problems Problem Noted Date Diagnosed Date [...] as of this encounter (statuses as of 01/29/2024) Immunizations Name Administration Dates Next Due DTaP [...] Sign Reading Time Taken Comments Blood Pressure 111/82 01/29/2024 7:00 AM EDT Pulse 71 01/29/2024 7:00 AM EDT Temperature 37 C (98.6 F) 01/29/2024 1:50 AM EDT Respiratory Rate 18 01/29/2024 7:00 AM EDT Oxygen Saturation 100% 01/29/2024 1:50 AM EDT Inhaled Oxygen Concentration - - Weight 72.6 kg (160 lb) 01/29/2024 1:50 AM EDT Height 157.5 cm (5' 2") 01/29/2024 1:50 AM EDT Body Mass Index 29.26 01/29/2024 1:50 AM EDT documented in this encounter Functional [...] as of this encounter ED Notes * Dedra Salmon RN - 01/29/2024 1:50 AM EDT Pt states that she developed abdominal pain yesterday. Pt reports that she feels like the pain is radiating from the right side of her abdomen and then diffusely across her abdomen, also reports radiation to right side of her back. + n/v/d. Denies urinary symptoms. Pt does have a J tube in place. Last dose of tylenol at 1999. documented in this encounter Miscellaneous Notes * ED Police Commissioner Note - Kenny Lovell RN - 01/29/2024 7:36 AM EDT FAME to this facility to provide transport for patient to go to [facility] at this time. Report was calledto [facility] ED nursing staff by Justin Galaviz RN. * ED Police Commissioner Note - Osei Galaviz RN - 01/29/2024 6:43 AM EDT 8 Fr. Heath placed in J tube track by Dr. Morales. Pt tolerated procedure * ED Police Commissioner Note - Toyin Zuleta RN - 01/29/2024 3:21 AM EDT This nurse agrees with assessment charted by LENNIE * ED Police Commissioner Note - Aracely Castañeda LPN - 01/29/2024 2:13 AM EDT Patient presents with complaints of right sided abdominal pain that radiates across her entire abdomen, nausea, vomiting, and diarrhea. Patient has a j-tube. J-tube does have purulent drainage aroundthe insertion site. Patient states she hasn't felt well for about a week but that it is getting worse. Assessment completed. See flowsheets for details. Needs met, call lopez within reach and use reinforced. 0300: Patient medicated by Gaudencio BAUGH, see MAR for details. 0400: Patient medicated by Nilsa RN see MAR for details. 0430: Patient rang call john, this CLIENT RELATIONSHIP MANAGER to bedside to assess. Patient states she vomited again, and that her j-tube is coming out and is very painful. J-tube does appear to be sliding out. Dr. Morales made aware. documented in this encounter Plan of Treatment Upcoming Encounters Date Type Department Care Team (Late st Contact Info) Description 03/25/2024 9:20 AM EDT Office Visit [facility] [address] [phone] Kinjal Reynoso PA-C [address] [phone] Health Maintenance Due Date Last Done Comments [...] this encounter Medical Devices Implanted Type Area Data Analytics Developer Device Identifier Shelf Expiration Date Model / Serial / Lot Port Implant W/8f Poly Cath - [id number] Implanted:Qty : 1 on 05/18/2023 by Juan Jose Connell, at [facility] Right: Chest CR BARD : PERIPHERAL VASCULAR [id number] 11/18/2024 [id number] / / [id number] documented as of this encounter Procedures Procedure Name Priority Date/Time Associated Diagnosis Comments CT ABDOMEN WO IV/ORAL CONTRAST STAT 01/29/2024 7:28 AM EDT URINALYSIS, REFLEX TO MICROSCOPIC STAT 01/29/2024 3:[address] ABD/PELVIS W IV CONTRAST - WO ORAL CONTRAST STAT 01/29/2024 3:41 AM EDT LACTATE WITH REFLEX IF ABNORMAL STAT 01/29/2024 2:56 AM EDT EXTRA LIGHT BLUE TOP Routine 01/29/2024 2:56 AM EDT EXTRA TUBES Routine 01/29/2024 2:56 AM EDT DIFFERENTIAL, AUTOMATED STAT 01/29/2024 2:56 AM EDT PROCALCITONIN Routine 01/29/2024 2:56 AM EDT CRP (INFLAMMATORY MARKER) STAT 01/29/2024 2:56 AM EDT BETA-HCG, QUANTITATIVE STAT 2:56 AM EDT COMPREHENSIVE METABOLIC PANEL STAT 01/29/2024 2:56 AM EDT CBC STAT 01/29/2024 2:56 AM EDT LIPASE STAT 01/29/2024 2:56 AM EDT CBC STAT 01/29/2024 2:56 AM EDT documented in this encounter Results * CT ABDOMEN WO IV/ORAL CONTRAST (01/29/2024 7:28 AM EDT) Anatomical Region Laterality Modality Abdomen, Body Computed Tomogra phy 01/29/2024 7:48 AM EDT Impressions 01/29/2024 7:45 AM EDT IMPRESSION Percutaneous jejunostomy within the bowel lumen, as above. Narrative 01/29/2024 7:45 AM EDT EXAM EXAM: CT ABDOMEN WO IV/ORAL CONTRAST DATE and TIME: 01/29/2024 7:28 am HISTORY CLINICAL INFORMATION: Status post J-tube dislodgement. Placement of 8 Congolese Heath catheter to preserve tract. Confirm proper placement. TECHNIQUE Oral Contrast: Oral contrast was not administered. IV Contrast: No IV contrast used. Note that evaluation of the viscera and vasculature is limited without the administration of intravenous contrast. COMPARISON CT abdomen and pelvis 01/29/2024. FINDINGS LINES AND DEVICES: Percutaneous jejunostomy tube with an inflated balloon within the jejunal lumen. The balloon is unchanged in position since 3 hours ago. The tip of the catheter is more proximal compared to the previous jejunostomy catheter and now extends 1.2 cm beyond the balloon, with the tip within the bowel lumen. LIVER: Unremarkable BILE DUCTS: Nondilated. GALLBLADDER: Unremarkable PANCREAS: Unremarkable SPLEEN: Unremarkable ADRENALS: Unremarkable KIDNEYS: No hydronephrosis or hydroureter. Excreted contrast in the renal collecting systems. BOWEL (visualized): Unremarkable LYMPH NODES: Unremarkable VESSELS: Unremarkable PERITONEUM/RETROPERITONEUM: No free air or free fluid. ABDOMINAL WALL/SOFT TISSUES: Unremarkable BONES: Unremarkable Procedure Note Mark Fair DO - 01/29/2024 EXAM EXAM: CT ABDOMEN WO IV/ORAL CONTRAST DATE and TIME: 01/29/2024 7:28 am HISTORY CLINICAL INFORMATION: Status post J-tube dislodgement. Placement of 8French Heath catheter to preserve tract. Confirm proper placement. TECHNIQUE Oral Contrast: Oral contrast was not administered. IV Contrast: No IV contrast used. Note that evaluation of the visceraand vasculature is limited without the administration of intravenouscontrast. COMPARISON CT abdomen and pelvis 01/29/2024. FINDINGS LINES AND DEVICES: Percutaneous jejunostomy tube with an inflated balloonwithin the jejunal lumen. The balloon is unchanged in position since 3hours ago. The tip of the catheter is more proximal compared to theprevious jejunostomy catheter and now extends 1.2 cm beyond the balloon,with the tip within the bowel lumen. LIVER: Unremarkable BILE DUCTS: Nondilated. GALLBLADDER: Unremarkable PANCREAS: Unremarkable SPLEEN: Unremarkable ADRENALS: Unremarkable KIDNEYS: No hydronephrosis or hydroureter. Excreted contrast in the renalcollecting systems. BOWEL (visualized): Unremarkable LYMPH NODES: Unremarkable VESSELS: Unremarkable PERITONEUM/RETROPERITONEUM: No free air or free fluid. ABDOMINAL WALL/SOFT TISSUES: Unremarkable BONES: Unremarkable IMPRESSION IMPRESSION Percutaneous jejunostomy within the bowel lumen, as above. Zachery Morales DO RAD CT * URINALYSIS, REFLEX TO MICROSCOPIC (01/29/2024 3:45 AM EDT) Color, Urine Yellow Light Yellow, Yellow, Dark Yellow 01/29/2024 4:00 AM EDT LABORATORY [facility] Clarity, Urine Clear Clear 01/29/2024 4:00 AM EDT LAB[facility]ATORY [facility] Glucose, Urine Negative Negative mg/dL 01/29/2024 4:00 AM EDT LAB[facility]ATORY [facility] Bilirubin, Urine Negative Negative 01/29/2024 4:00 AM EDT LAB[facility] Ketone, Urine Negative Negative mg/dL 01/29/2024 4:00 AM EDT LAB[facility]ATORY [facility] Specific [place], Urine 1.023 1.003 - 1.030 01/29/2024 4:00 AM EDT LAB[facility]ATORY [facility] Blood, Urine Negative Negative 01/29/2024 4:00 AM EDT LAB[facility]ATORY [facility] pH, Urine 7.0 5.0 - 7.5 Units 01/29/2024 4:00 AM EDT LAB[facility]ORY [facility] Protein, Urine Negative Negative mg/dL 01/29/2024 4:00 AM EDT LAB[facility]ATORY [facility] Urobilinogen, Urine 0.2 0.2, 1.0 mg/dL 01/29/2024 4:00 AM EDT LAB[facility]ATORY [facility] Nitrite, Urine Negative Negative 01/29/2024 4:00 AM EDT LABORATORY [facility] Esterase, Urine Negative Negative 4:00 AM EDT LAB[facility]ATORY [facility] Comment, Urine 01/29/2024 4:00 AM EDT LABORATORY [facility] Comment:Screen negative - Mi croscopic not performed. Urine Non-blood Collection / Unknown 01/29/2024 3:45 AM EDT 01/29/2024 3:51 AM EDT Zachery Morales DO LAB URINE ORDERABLES LABORATORY [address] [address] * CT ABD/PELVIS W IV CONTRAST - WO ORAL CONTRAST (01/29/2024 3:41 AM EDT) Anatomical Region Laterality Modality Body, Abdomen, Pelvis Computed T omography 01/29/2024 4:20 AM EDT Impressions 01/29/2024 4:18 AM EDT IMPRESSION 1. No acute findings in the abdomen or pelvis. 2. Trace pelvic free fluid is nonspecific, but likely physiologic. 3. Percutaneous jejunostomy tube with the balloon within the bowel lumen. Narrative 01/29/2024 4:18 AM EDT EXAM EXAM: CT ABD/PELVIS W IV CONTRAST - WO ORAL CONTRAST DATE TIME: 01/29/2024 - 01/29/2024 3:41 am TECHNIQUE Oral Contrast: Oral contrast was not administered. IV Contrast: Intravenous contrast was administered. HISTORY Status post exchange of J-tube after dislodgement 2 months ago. Worsening pain in right lower quadrant radiating around to the back, as well as across abdomen. Positive Rovsing sign. COMPARISON CT abdomen and pelvis 11/23/2023 and 08/16/2023. FINDINGS HEART(visualized): No pericardial effusion. LUNG BASES: Unremarkable LINES AND DEVICES: Percutaneous jejunostomy tube with the balloon within the bowel lumen. LIVER: Unremarkable BILE DUCTS: Nondilated. GALLBLADDER: Unremarkable PANCREAS: Unremarkable SPLEEN: Unremarkable ADRENALS: Unremarkable KIDNEYS/URETERS: No hydronephrosis or hydroureter. BLADDER: Unremarkable BOWEL: Normal in caliber. Status post appendectomy. LYMPH NODES: A few prominent mesenteric lymph nodes are unchanged, likely reactive. VESSELS: Unremarkable REPRODUCTIVE ORGANS: Status post hysterectomy. PERITONEUM/RETROPERITONEUM: Trace pelvic free fluid. No free air or fluid collections. ABDOMINAL WALL/SOFT TISSUES: Midline ventral abdominal postsurgical changes. BONES: Unremarkable Procedure Note Mark Fiar DO - 01/29/2024 EXAM EXAM: CT ABD/PELVIS W IV CONTRAST - WO ORAL CONTRAST DATE TIME: 01/29/2024 - 01/29/2024 3:41 am TECHNIQUE Oral Contrast: Oral contrast was not administered. IV Contrast: Intravenous contrast was administered. HISTORY Status post exchange of J-tube after dislodgement 2 months ago. Worseningpain in right lower quadrant radiating around to the back, as well asacross abdomen. Positive Rovsing sign. COMPARISON CT abdomen and pelvis 11/23/2023 and 08/16/2023. FINDINGS HEART(visualized): No pericardial effusion. LUNG BASES: Unremarkable LINES AND DEVICES: Percutaneous jejunostomy tube with the balloon withinthe bowel lumen. LIVER: Unremarkable BILE DUCTS: Nondilated. GALLBLADDER: Unremarkable PANCREAS: Unremarkable SPLEEN: Unremarkable ADRENALS: Unremarkable KIDNEYS/URETERS: No hydronephrosis or hydroureter. BLADDER: Unremarkable BOWEL: Normal in caliber. Status post appendectomy. LYMPH NODES: A few prominent mesenteric lymph nodes are unchanged, likelyreactive. VESSELS: Unremarkable REPRODUCTIVE ORGANS: Status post hysterectomy. PERITONEUM/RETROPERITONEUM: Trace pelvic free fluid. No free air orfluid collections. ABDOMINAL WALL/SOFT TISSUES: Midline ventral abdominal postsurgicalchanges. BONES: Unremarkable IMPRESSION IMPRESSION 1. No acute findings in the abdomen or pelvis. 2. Trace pelvic free fluid is nonspecific, but likely physiologic. 3. Percutaneous jejunostomy tube with the balloon within the bowellumen. Zachery Morales DO RAD CT * EXTRA LIGHT BLUE TOP (01/29/2024 2:56 AM EDT) Blood Venous blood specimen / Unknown Venipuncture / Unknown 01/29/2024 2:56 AM EDT 01/29/2024 3:01 AM EDT Zachery Morales DO LAB BLOOD ORDERABLES LABORATORY [address] [address] * DIFFERENTIAL, AUTOMATED (01/29/2024 2:56 AM EDT) Pathologist [facility] WBC 5.85 4.00 - 10.80 K/uL 01/29/2024 3:04 AM EDT LABORATORY [facility] Neutrophils % 53.6 40.0 - 75.0 % 01/29/2024 3:04 AM EDT LABORATORY [facility] Lymphocytes % 37.8 18.0 - 42.0 % 01/29/2024 3:04 AM EDT LABORATORY [facility] Monocytes % 6.8 1.0 - 11.0 % 01/29/2024 3:04 AM EDT LABORATORY [facility] Eosinophils % 1.2 0.0 - 6.0 % 01/29/2024 3:04 AM EDT LABORATORY [facility] Basophils % 0.3 0.0 - 2.0 % 01/29/2024 3:04 AM EDT LABORATORY [facility] Immature Granulocytes % 0.3 0.0 - 2.0 % 01/29/2024 3:04 AM EDT LABORATORY [facility] Absolute Neutrophils 3.13 1.80 - 7.70 K/uL 01/29/2024 3:04 AM EDT LABORATORY [facility] Absolute Lymphocytes 2.21 1.00 - 4.80 K/ul 01/29/2024 3:04 AM EDT LABORATORY [facility] Absolute Monocytes 0.40 0.00 - 1.10 K/uL 01/29/2024 3:04 AM EDT LABORATORY [facility] Absolute Eosinophils 0.07 0.00 - 0.70 K/uL 01/29/2024 3:04 AM EDT LABORATORY [facility] Absolute Basophils 0.02 0.00 - 0.20 K/uL 01/29/2024 3:04 AM EDT LABORATORY [facility] Absolute Immature Granulocytes 0.02 0.00 - 0.20 K/uL 01/29/2024 3:04 AM EDT LABORATORY [facility] Blood Venous blood specimen / Unknown Venipuncture / Unknown 01/29/2024 2:56 AM EDT 01/29/2024 2:59 AM EDT Zachery Morales DO LAB BLOOD ORDERABLES LABORATORY [facility] [address] [place], [place] [id number] * CBC (01/29/2024 2:56 AM EDT) WBC 5.85 4.00 - 10.80 K/uL 01/29/2024 3:04 AM EDT LABORATORY [facility] RBC 3.99 3.85 - 5.15 M/uL 01/29/2024 3:04 AM EDT LABORATORY [facility] HGB 12.3 12.0 - 15.3 g/dL 01/29/2024 3:04 AM EDT LABORATORY [facility] HCT 37.4 36.0 - 45.2 % 01/29/2024 3:04 AM EDT LABORATORY [facility] MCV 93.7 81.5 - 97.5 fL 01/29/2024 3:04 AM EDT LABORATORY [facility] MCH 30.8 27.0 - 34.0 pg 01/29/2024 3:04 AM EDT LABORATORY [facility] MCHC 32.9 32.0 - 36.0 g/dL 01/29/2024 3:04 AM EDT LABORATORY [facility] RDW 12.8 11.5 - 15.5 % 01/29/2024 3:04 AM EDT LABORATORY [facility] PLT 253 140 - 400 K/uL 01/29/2024 3:04 AM EDT LABORATORY [facility] MPV 10.0 6.6 - 11.1 fL 01/29/2024 3:04 AM EDT LABORATORY [facility] nRBCs 0 <=0 /100 WBCs 01/29/2024 3:04 AM EDT LABORATORY [facility] Blood Venous blood specimen / Unknown Venipuncture / Unknown 01/29/2024 2:56 AM EDT 01/29/2024 2:59 AM EDT Zachery Morales DO LAB BLOOD ORDERABLES LABORATORY [facility] [address] [place], [place] [id number] * BETA-HCG, QUANTITATIVE (01/29/2024 2:56 AM EDT) Beta-HCG, Quantitative <0.3 <=1.0 mIU/mL 01/29/2024 3:31 AM EDT LABORATORY [facility] Blood Venous blood specimen / Unknown Venipuncture / Unknown 01/29/2024 2:56 AM EDT 01/29/2024 2:59 AM EDT Narrative LABORATORY [facility] - 01/29/2024 3:31 AM EDT hCG can serve as a screening assay for . However, early may not give a positive hCG test result. In addition, some non- women may have a hCG result slightly higher than the reference limit. Careful interpretation of the hCG with clinical history is required to determine whether the patient may be . Zachery Morales DO LAB BLOOD ORDERABLES Performing Organization Address [facility] Co de Phone Number LABORATORY [address] [phone] * LIPASE (01/29/2024 2:56 AM EDT) Lipase 27 13 - 60 U/L 01/29/2024 3:42 AM EDT LABORATORY [facility] Blood Venous blood specimen / Unknown Venipuncture / Unknown 01/29/2024 2:56 AM EDT 01/29/2024 2:59 AM EDT Zachery Morales DO LAB BLOOD ORDERABLES Performing Organization Address [facility] de Phone Number LABORATORY [address] [phone] * LACTATE WITH REFLEX IF ABNORMAL (01/29/2024 2:56 AM EDT) Lactate 0.7 0.4 - 2.0 mmol/L 01/29/2024 3:18 AM EDT LABORATORY [facility] Blood Venous blood specimen / Unknown Venipuncture / Unknown 01/29/2024 2:56 AM EDT 01/29/2024 2:59 AM EDT Zachery Morales DO LAB BLOOD ORDERABLES Performing Organization Address [facility] Co de Phone Number LABORATORY [address] [address] * PROCALCITONIN (01/29/2024 2:56 AM EDT) Pathologist [facility] Procalcitonin <0.06 <0.10 ng/mL 01/29/2024 3:30 AM EDT LABORATORY [facility] Blood Venous blood specimen / Unknown Venipuncture / Unknown 01/29/2024 2:56 AM EDT 01/29/2024 2:59 AM EDT Narrative LABORATORY [facility] - 01/29/2024 3:30 AM EDT Less than 0.5 ng/mL: Low risk for progression to sepsis. Review patients condition for localized infections. 0.5 to 2.0 ng/mL: Intermediate risk for progresion to sepsis. Review underlying conditions. Recommend repeat PCT after 6 hours has elapsed. Greater than 2.0 ng/mL: high risk for progression to sepsis unless other causes are known. Zachery Morales DO LAB BLOOD ORDERABLES LABORATORY [address] [address] * CRP (INFLAMMATORY MARKER) (01/29/2024 2:56 AM EDT) [facility] CRP (Inflammatory Marker) <3 <=5 mg/L 01/29/2024 3:42 AM EDT LABORATORY [facility] Blood Venous blood specimen / Unknown Venipuncture / Unknown 01/29/2024 2:56 AM EDT 01/29/2024 2:59 AM EDT Zachery Morales DO LAB BLOOD ORDERABLES LABORATORY [address] [address] * (ABNORMAL) COMPREHENSIVE METABOLIC PANEL (01/29/2024 2:56 AM EDT) Pathologist [facility] BUN 10 6 - 20 mg/dL 01/29/2024 3:42 AM EDT LABORATORY [facility] Creatinine 0.6 0.5 - 1.0 mg/dL 01/29/2024 3:42 AM EDT LAB[facility]ATORY [facility] Estimated Glomerular Filtration Rate >90 >=60 mL/min 01/29/2024 3:42 AM EDT LAB[facility]ATORY [facility] Comment:eGFR is calculated b ased on the CKD-EPI 2020 equation. Sodium 140 135 - 146 mmol/L 01/29/2024 3:42 AM EDT LAB[facility]ATORY [facility] Potassium 4.0 3.5 - 5.1 mmol/L 01/29/2024 3:42 AM EDT LAB[facility]ATORY [facility] Chloride 107 98 - 107 mmol/L 01/29/2024 3:42 AM EDT LAB[facility]ATORY [facility] CO2 21(L) 22 - 32 mmol/L 01/29/2024 3:42 AM EDT LAB[facility]ATORY [facility] Anion Gap 12 7 - 15 mmol/L 01/29/2024 3:42 AM EDT LAB[facility]ATORY [facility] Glucose 99 70 - 120 mg/dL 01/29/2024 3:42 AM EDT LAB[facility]ATORY [facility] Albumin 4.1 3.8 - 5.0 g/dL 01/29/2024 3:42 AM EDT LAB[facility]ATORY [facility] AST 15 10 - 35 U/L 01/29/2024 3:42 AM EDT LAB[facility]ATORY [facility] Alkaline Phosphatase 85 35 - 130 U/L 01/29/2024 3:42 AM EDT LAB[facility]ATORY [facility] Bilirubin, Total <0.2 <=1.2 mg/dL 01/29/2024 3:42 AM EDT LAB[facility]ATORY [facility] Calcium 9.3 8.4 - 10.2 mg/dL 01/29/2024 3:42 AM EDT LAB[facility]ATORY [facility] Protein 7.1 6.0 - 8.3 g/dL 01/29/2024 3:42 AM EDT LAB[facility]ATORY [facility] ALT 12 10 - 35 U/L 01/29/2024 3:42 AM EDT LAB[facility]ATORY [facility] Blood Venous blood specimen / Unknown Venipuncture / Unknown 01/29/2024 2:56 AM EDT 01/29/2024 2:59 AM EDT Zachery Morales DO LAB BLOOD ORDERABLES LABORATORY [facility] [address] [place] [address] documented in this encounter Administered Medications Inactive Administered Medications - up to 3 most recent administrations Medication Order MAR Action Action Date Dose Rate Site HYDROmorphone (Dilaudid) inj 0.5 mg 0.5 mg, IV Push, ONCE, On 01/29/24 at 0545, For 1 dose Given 01/29/2024 5:16 AM EDT 0.5 mg HYDROmorphone (Dilaudid) inj 0.5 mg 0.5 mg, IV Push, ONCE, On 01/29/24 at 0700, For 1 dose Given 01/29/2024 6:43 AM EDT 0.5 mg Iopamidol (Isovue 370) inj 80 mL 80 mL, Intravenous, ONCE, On 01/29/24 at 0415, For 1 dose, Radiology Medication Routing (Non-IR) Given 01/29/2024 4:15 AM EDT 80 mL Morphine Sulfate (PF) inj 4 mg 4 mg, Intravenous, ONCE, On 01/29/24 at 0315, For 1 dose Given 01/29/2024 3:01 AM EDT 4 mg morphine sulfate inj 2 mg 2 mg, Intravenous, ONCE, On 01/29/24 at 0430, For 1 dose Given 01/29/2024 3:59 AM EDT 2 mg NSS 0.9% 1,000 mL bolus infusion Intravenous, at 1,000 mL/hr Administer over 60 Minutes, Administer entire volume within 60 minutes or less., ONCE, 1 dose, On 01/29/24 at 0315 New Bag 01/29/2024 3:01 AM EDT 1,000 mL 1000 mL/hr ondansetron (Zofran) inj 4 mg 4 mg, IV Push, ONCE, On 01/29/24 at 0315, For 1 dose Given 01/29/2024 3:01 AM EDT 4 mg ondansetron (Zofran) inj 4 mg 4 mg, IV Push, ONCE, On 01/29/24 at 0815, For 1 dose Given 01/29/2024 7:43 AM EDT 4 mg trimethobenzamide (Tigan) inj 100 mg 100 mg, Intramuscular, ONCE, On 01/29/24 at 0430, For 1 dose Given 01/29/2024 4:02 AM EDT 100 mg Deltoid Right Upper documented in this encounter Active and Recently Administered Medications Times are shown in EDT. Scheduled Medication Order 01/27/2024 01/28/2024 01/29/2024 HYDROmorphone (Dilaudid) inj 0.5 mg (COMPLETED) 0.5 mg, IV Push, ONCE, On 01/29/24 at 0545, For 1 dose 0516 (Given - Provid er: Osei Galaviz RN) HYDROmorphone (Dilaudid) inj 0.5 mg (COMPLETED) 0.5 mg, IV Push, ONCE, On 01/29/24 at 0700, For 1 dose 0643 (Given - Provid er: Osei Galaviz RN) Iopamidol (Isovue 370) inj 80 mL (COMPLETED) 80 mL, Intravenous, ONCE, On 01/29/24 at 0415, For 1 dose, Radiology Medication Routing (Non-IR) 0415 (Given - Provid er: Chris Avalos, RT (R)) Morphine Sulfate (PF) inj 4 mg (COMPLETED) 4 mg, Intravenous, ONCE, On 01/29/24 at 0315, For 1 dose 0301 (Given - Provid er: Toyin Zuleta RN) morphine sulfate inj 2 mg (COMPLETED) 2 mg, Intravenous, ONCE, On 01/29/24 at 0430, For 1 dose 0359 (Given - Provid er: Osei Galaviz RN) NSS 0.9% 1,000 mL bolus infusion (COMPLETED) Intravenous, at 1,000 mL/hr Administer over 60 Minutes, Administer entire volume within 60 minutes or less., ONCE, 1 dose, On 01/29/24 at 0315 0301 (New Bag - Prov ider: Toyin Zuleta RN)0419 (Stopped - Provider: Aracely Castañeda LPN) ondansetron (Zofran) inj 4 mg (COMPLETED) 4 mg, IV Push, ONCE, On 01/29/24 at 0315, For 1 dose 0301 (Given - Provid er: Toyin Zuleta RN) ondansetron (Zofran) inj 4 mg (COMPLETED) 4 mg, IV Push, ONCE, On 01/29/24 at 0815, For 1 dose 0743 (Given - Provid er: Amina Llanos RN) trimethobenzamide (Tigan) inj 100 mg (COMPLETED) 100 mg, Intramuscular, ONCE, On 01/29/24 at 0430, For 1 dose 0402 (Given - Provid er: Osei Galaviz RN) documented in this encounter Advance [...] Advance Directives occurred with: Patient Care Teams Installer Apprentice Relationship Specialty Start Date End Date Kinjal Reynoso PA-C [address] [phone] PCP - General Physician Integrated Marketing Specialist 11/05/22 documented as of this encounter
[2024-03-16] MEDS: ACETAMINOPHEN 1,000 MG/100 ML VIAL IV STA (23:25)
[2024-03-17] MEDS: KETOROLAC TROMETHAMINE 15 MG/ML VIAL IV ONE (00:40)
[2024-03-17] MEDS ORDERED: HEPARIN 100 UNIT/ML 5ML FLUSH FLUSH PRN (01:57)
[2024-03-17] MEDS: ONDANSETRON INJ 2 MG/ML 2 ML VIAL IV PRN (07:46)
[2024-03-17 07:58] LABS: Basophils # (auto) 0.01 K/uL (0.00-0.20); Basophils % (auto) 0.2 %; Eosinophils # (auto) 0.05 K/uL (0.00-0.50); Hematocrit (blood only) 37.1 % (37.0-47.0); Immature Granulocytes # (auto) 0.02 K/uL (0.01-0.20); Immature Granulocytes % (auto) 0.4 %; Lymphocytes # (auto) 1.64 K/uL (1.20-3.40); Lymphocytes % (auto) 31.3 %; Mean Corpuscular Hemoglobin 31.1 pg (25.0-34.0); Mean Corpuscular Volume 88.8 fL (80.0-100.0); Mean Platelet Volume 10.5 fL (9.4-12.4); Monocytes # (auto) 0.32 K/uL (0.11-0.59); Monocytes % (auto) 6.1 %; Platelet Count 213 K/uL (130-400); RDW Coefficient of Variation 11.9 % (11.5-14.5); RDW Standard Deviation 39.5 fL (36.4-46.3); Red Blood Count 4.18 M/uL (4.20-5.40); White Blood Count 5.24 K/ul (4.8-10.8)
--- NOTE | 2024-03-17 08:14 | Hospitalist Progress Note ---
Date of Service March 17, 2024 Assessment & Plan (1) Abdominal pain: Plan: Anirudh Peñaloza is a 23y/o F with PMHx significant for an ovarian cystic mass, gastroparesis s/p jejunostomy tube placement, malfunction of jejunostomy tube, asthma, GERD with esophagitis, dysmenorrhea, endometriosis, retention of urine, chronic pelvic pain s/p laparoscopic hysterectomy, chronic abdominal pain, medical marijuana use, PTSD/anxiety and chronic continuous use of opioids Who presented to the ED on 03/16/24 for evaluation of acute on chronic abdominal pain. Patient was most recently admitted here at [facility] on 12/31/23 for evaluation of intractable abdominal pain. Work-up at that time showed concern for ruptured ovarian cyst. She was admitted to our hospitalist service for pain control. However she did develop worsening pain in her lower abdominal region during that admission and there was significant concern that her jejunostomy tube has become dislodged. She was seen and evaluated by general surgery. Patient was requesting for her jejunostomy tube to be removed by general surgery, however general surgery did not agree to remove her tube as they were not the service who placed it nor were they involved in the decision-making/diagnosis to pursue it. GI and IR services at [facility] do not exchange jejunostomy tubes, therefore this could not be pursued here. Patient ultimately was transferred to [facility] for jejunostomy tube exchange. She was treated at [facility] with a course of Unasyn and Augmentin for a possible jejunostomy tube site infection. She was transferred back to [facility] on 01/10/24 and then discharged from our service on 01/11/2024. Of note, patient's jejunostomy tube has become dislodged multiple times. She was seen by our service back in July 2023 and ultimately had to be transferred to [facility] for jejunostomy tube exchange. Patient follows with Dr. Osbaldo Knight at [facility] for monitoring of her jejunostomy tube every 3 months per chart review. Acute on chronic abdominal pain History of gastroparesis History of opioid misuse/abuse as per records Secondary to ruptured ovarian cyst Dislodged J-tube bronchial asthma, patient without pulmonary complaints anxiety/mood disorder, at baseline hx endometriosis Hypokalemia 72 emesis ongoing vape use OBS GMF Analgesia, judicious narcotic use given history of gastroparesis/opioid abuse concerns (I told patient I was not comfortable giving her IV narcotics given emesis episodes.) UNIX DEVELOPER consult re: ruptured ovarian cyst GI consult re: dislodged J-tube N.p.o. in anticipation of procedure Replace potassium DVT prophylaxis SCDs Full code Text document was generated using [employer] [facility] voice recognition software. It may contain grammatical or spelling errors. Kindly contact undersigned for clarification of any documentation item in question. DVT Prophylaxis: Code Status: PCP: Dispo: Patient seen in collaboration with . Please see addendum. I spent a total of minutes coordinating, documenting, and providing care for this patient excluding time spent in the performance of separately billed services. This included personally reviewing all current laboratories and imaging studies, medical reconciliation, outpatient chart review and discussion with specialists. Admission and Anticipated Discharge Date Admission Date: March 16, 2024 Review of Systems Review of Systems: At least ten systems reviewed and negative, except as noted in the subjective section. Results & Data Results & Data Vital Signs (Past 12 Hours) Vital Signs Temp Pulse Resp BP Pulse Ox O2 Del Method 03/16/24 22:35 36.8 C 69 16 109/70 99 Room Air 03/16/24 21:16 82 16 117/76 98 Room Air Laboratory Results Short CBC 03/16/24 03/17/24 Range/Units 14:20 07:37 WBC 6.02 5.24 (4.8-10.8) K/ul Hgb 12.7 13.0 (12.0-16.0) g/dl Hct 35.5 L 37.1 (37.0-47.0) % Plt Count 234 213 (130-400) K/uL BMP 03/16/24 14:20 Sodium 140 Potassium 3.3 L Chloride 114 H Carbon Dioxide 19 L BUN 9 Creatinine 0.58 L Glucose 75 Calcium 7.7 L Liver Function 03/16/24 Range/Units 14:20 Total Bilirubin 0.3 (0.2-1.0) mg/dl AST 11 L (13-39) U/L ALT 6 L (7-52) U/L Alkaline Phosphatase 59 (34-104) U/L Albumin 3.7 (3.4-5.0) gm/dl Urine 03/16/24 Range/Units 14:20 Urine Color Yellow Urine Appearance Clear (Clear) Urine pH 6.5 (4.5-7.5) Ur Specific [place] 1.032 H (1.000-1.030) Urine Protein Trace H (Negative) Urine Glucose (UA) Negative (Negative) (1) Abdominal pain Abdominal location: generalized Qualified Code(s): R10.84 - Generalized abdominal pain
[2024-03-17] MEDS: ACETAMINOPHEN 1,000 MG/100 ML VIAL IV PRN (08:22)
[2024-03-17] MEDS: ADVANCED PROBIOTIC 625 MG CAPSULE PO SCH (08:25)
[2024-03-17] MEDS: LANSOPRAZOLE 30 MG SOLTAB PO SCH (08:26)
--- NOTE | 2024-03-17 08:50 | Communication Note ---
Date of Service: March 17, 2024 GI consulted due to dislodged J tube. Patient was transferred to [facility] on previous admissions for the same issue. Unfortunately, neither GI nor IR at [facility] manages J tubes so would advise transfer for IR intervention.
[2024-03-17 09:04] LABS: Calcium 8.8 mg/dl (8.6-10.3); Magnesium 2.1 mg/dl (1.7-2.4); Potassium 4.2 mmol/L (3.5-5.1)
[2024-03-17 09:09] LABS: BUN Creatinine Ratio 18.8 (10-20); Creatinine Clr Calc Pharmacy 127.5 ml/min; Est GFR (African American) 146.8 ml/min; Est GFR (Non-African American) 126.7 ml/min
[2024-03-17] MEDS ORDERED: ACETAMINOPHEN 1,000 MG/100 ML VIAL IV STA (09:41)
--- NOTE | 2024-03-17 09:51 | Discharge Summary ---
Date of Service March 17, 2024 Admission HPI Per Admitting Provider History obtained from patient and records. Medical history significant for history of VT, bronchial asthma, chronic abdominal pain, gastroparesis status post J tube placement, anxiety/mood disorder, endometriosis, ongoing vape use, history of opioid abuse/misuse as per records. Last [facility] confinement December 2023 for abdominal pain and completion of antibiotic Rx for possible J site infection. Patient started by PCP on gabapentin for pain to wean off narcotics. Final oxycodone prescription from PCP given last month as per documentation. Patient underwent outpatient jejunostomy catheter exchange at [facility] last February 02, 2024. Eight [facility] ER visits since discharge from the hospital. Last [facility] ER visit 2 weeks ago for abdominal pain of unknown etiology. Patient experienced achy right lower quadrant pain yesterday. Some nausea and emesis. Usual BM. No hematuria or vaginal bleeding. No chest pain, no SOB, no headache, no nausea, no vomiting. Intractable discomfort at the ER. J-tube dislodged following emesis episode at the ER. Medical History as above Surgical History : Appendectomy, vascular procedure, gastrostomy/cecostomy placement, hysterectomy Family History : Migraine, PUD, IBS, thyroid disease, endometriosis Personal/Social history : Ongoing vape use, occasional EtOH intake, disabled Admission Exam Per Admitting Provider GENERAL: uncomfortable, no respiratory distress SKIN: Normal color, warm HEENT: [place] palpebral conjunctivae, no ptosis, dry buccal mucosa NECK : Supple, no tenderness CHEST : CTA, no tenderness HEART : RRR, no obvious murmurs ABDOMEN: J-tube in place, some distention, hypogastric tenderness EXTREMITIES : No LE swelling/tenderness, no other conspicuous deformities noted NEUROLOGIC : Coherent, no facial asymmetry, no other gross focality Principal Diagnosis Acute on Chronic Abdominal Pain, Dislodged Jejunostomy Tube Discharge Exam General: Vitals as above, NAD but appears uncomfortable, laying down in bed, conversing appropriately. A+Ox3, euthymic affect. HEENT: Normocephalic, atraumatic. PERRL, conjunctivae normal, anicteric sclerae. External ear and nose normal, oropharynx normal. Respiratory: Normal respiratory effort, lungs clear to auscultation, no wheeze, rales, rhonchi. No accessory muscle use. Cardiovascular: Regular rate, rhythm, no murmur, normal peripheral pulses, no BLE edema. Vessels: No JVD. Abdomen/GI: Normal bowel sounds, soft, nontender, no hepatosplenomegaly, J-tube starting to protrude, some distention. Extremities/Musculoskeletal: No cyanosis or clubbing, extremities motor strength intact, moves all extremities. Neurologic: EOMI, no focal deficits, CN's II-XI not formally tested but appear grossly intact bilaterally. Skin: No rashes, normal color, warm/dry. Discharge Data Allergies Allergy/AdvReac Type Severity Reaction Status Date / Time metoclopramide [From Reglan] AdvReac Intermediate PSYCHO Verified 03/16/24 20:38 REACTIONS prochlorperazine AdvReac Intermediate Agitated Verified 03/16/24 20:38 [From Compazine] ondansetron [From Zofran] AdvReac Mild Flushing Verified 12/31/23 19:06 Consultations 03/16/24 19:23 ED Decision to Admit Stat 03/16/24 22:38 Consult Gastroenterology Routine 03/17/24 05:29 Consult Gynecology Routine Ordered Studies 03/16/24 17:25 CT abd pelvis IV con only Stat Hospital Course (1) Abdominal pain: (2) Dislodged jejunostomy tube: Plan Anirudh Peñaloza is a 23y/o F with PMHx significant for an ovarian cystic mass, gastroparesis s/p jejunostomy tube placement, malfunction of jejunostomy tube, asthma, GERD with esophagitis, dysmenorrhea, endometriosis, retention of urine, chronic pelvic pain s/p laparoscopic hysterectomy, chronic abdominal pain, medical marijuana use, PTSD/anxiety and chronic continuous use of opioids Who presented to the ED on 03/16/24 for evaluation of acute on chronic abdominal pain and dislodged jejunostomy tube. Patient was most recently admitted here at [facility] on 12/31/23 for evaluation of intractable abdominal pain. Work-up at that time showed concern for ruptured ovarian cyst. She was admitted to our hospitalist service for pain control. However she did develop worsening pain in her lower abdominal region during that admission and there was significant concern that her jejunostomy tube has become dislodged. She was seen and evaluated by general surgery. Patient was requesting for her jejunostomy tube to be removed by general surgery, however general surgery did not agree to remove her tube as they were not the service who placed it nor were they involved in the decision-making/diagnosis to pursue it. GI and IR services at [facility] do not exchange jejunostomy tubes, therefore this could not be pursued here. Patient ultimately was transferred to [facility] for jejunostomy tube exchange. She was treated at [facility] with a course of Unasyn and Augmentin for a possible jejunostomy tube site infection. She was transferred back to [facility] on 01/10/24 and then discharged from our service on 01/11/2024. Of note, patient's jejunostomy tube has become dislodged multiple times. She was seen by our service back in July 2023 and ultimately had to be transferred to [facility] for jejunostomy tube exchange. Patient follows with Dr. Osbaldo Knight at [facility] for monitoring of her jejunostomy tube every 3 months per chart review. Dislodged Jejunostomy Tube Acute on Chronic Abdominal Pain: Patient underwent outpatient jejunostomy catheter exchange at [facility] last February 02, 2024. She presented to the ED yesterday due to acute on chronic abdominal pain. Her jejunostomy tube became dislodged in the ED following an episode of emesis. Admitting CTAP revealed sequelae of a ruptured hemorrhagic ovarian follicle/cyst. PROTOTYPE MODEL MAKER was therefore consulted for that regard and GI was also consulted to address her dislodged jejunostomy tube. Unfortunately, neither GI nor IR at [facility] manages jejunostomy tubes. Patient is being transferred to [facility] for IR intervention. PCP: Kinjal Reynoso PA-C Disposition: Patient is being transferred to [facility] via BLS for further jejunotomy tube intervention and care, likely will need to be exchanged. Patient seen in collaboration with Dr. Vivar. Please see addendum. I spent a total of 55 minutes coordinating, documenting, and providing care for this patient excluding time spent in the performance of separately billed services. This included personally reviewing all current laboratories and imaging studies, medical reconciliation, outpatient chart review and discussion with specialists. This chart was completed in part utilizing Speech Voice Recognition Software. Grammatical errors, random word insertions, pronoun errors, and incomplete sentences are an occasional consequence of this system due to software limitations, ambient noise, and hardware issues. Any formal questions or concerns about the content, text, or information contained within the body of this dictation should be directly addressed to the provider for clarification. Total Time Total Time Spent Total Time Spent (In Minutes): 55 Discharge Plan Discharge Items Patient Disposition: Transfer Acute Care Hospital Reason For Visit: ABD PAIN Discharge Diagnosis: Dislodged J tube Activity: As commented below Activity Comment: at next facility Non-emergency contact: Primary Care Provider and Hospitalist Call non-emergency contact if: you have any medication questions and your symptoms worsen Follow-up/Referrals: Kinjal Reynoso, FABI [Primary Care Provider] - Diet: Nothing by Mouth Addtl Attending Provider Instructions: You were admitted for J tube dislodgement You will be transferred for it to be replaced Pending Studies at Discharge: No Stand-Alone Forms: My [facility] Skilled Items Patient informed of condition?: Yes DNR: Yes Discharge Level of Care: Other Communicable Disease: No Discharge Prognosis: Stable Lines: Peripheral IV Urinary Catheter: No Medications and DC Order Prescriptions: Continued gabapentin 300 mg capsule 300 mg PO DAILY PRN (Reason: Pain) lansoprazole 15 mg capsule,delayed release(DR/EC) 30 mg PO DAILY PRN (Reason: Heartburn) ondansetron 4 mg tablet,disintegrating 4 mg PO TID PRN (Reason: Nausea And Vomiting) acetaminophen [Tylenol] 325 mg Tablet 625 mg PO QID PRN (Reason: Mild Pain (Scale Score 1-4)) naproxen 375 mg Tablet 375 mg PO BID PRN (Reason: Pain (Scale Score 1-3)) Florajen Digestion 15 billion cell Capsule 1 cap PO DAILY oxycodone 5 mg/5 mL solution 5 mg PO Q4 PRN (Reason: Pain (Scale Score 7-10)) Discharge Orders: Discharge Order (Routine); Ordered 03/17/24 Ordered By: Yaima Beltran/Other Patient Handouts: Anatomy of the Digestive System Admission Data Admit Date/Time: 03/16/24 20:35 Attending Provider: Yaima Vivar Admit Provider: Tex Manzanares Primary Care Provider: Kinjal Reynoso Other Providers: Tex Manzanares; Ko Cruz; Yariel Abarca; Luz Marina Finch; Rose Marie Israel; Sunil Rowley; Vero Reyes; Alexis Goldsmith; Darius Luciano; Moni Phan; Alba Guerra; Fozia Ruelas; Rashmi López; Sue Barakat; Christie Delgado; Birgit Rodriges; Artur Roque; Shante Dixon Other Interventions: Discharge Summary Assessment (RN) Last Done: 03/17/24 09:33 Supervising Physician Co-Signing Physician Notes I have seen and discussed the case with the collaborating advanced practitioner. I agree with the above DS. I have reviewed and confirmed the patients medical history, the findings on physical examination, and the patients diagnosis and treatment plan with Michelle DUNLAP and agree with the information documented. 23 yo f with severe gastroparesis admitted for dislodged J tube. Patient with tube still in tract. Denies any chest pain, reports same abdominal pain (chronic) with discomfort of j tube site. Transfer to [facility] as no advanced IR for replacement. I spent a total of 20 minutes coordinating, documenting, and providing care for this patient excluding time spent in the performance of separately billed services. All of the aforementioned completed outside of collaborating with the assigned advanced practitioner for a full treatment plan. I have reviewed the advanced practitioner's documentation, and I agree with, and take responsibility for the plan of care
[2024-03-17] MEDS: KETOROLAC 30 MG/ML VIAL IV ONE (10:10)
[2024-03-17] MEDS: oxyCODONE HCL IR 5 MG TAB (IMMEDIATE RELEASE) PO PRN (10:30)
[2024-03-17 10:53] VITALS: BP 113/75; PULSE 90; RESP 18; TEMP 99; O2SAT 99
== END 2024-03-17 11:04 | disposition short-term general hospital (02) ==
LOC: ED 13:28 → 3W 13:28 → SUATTDRO 20:35 → 3W 21:46